=== PATIENT | male | born 1980 | race American Indian/Alaskan Native ===

== ENCOUNTER 2020-07-17 09:08 | Outpatient (CLI) | payer MEDICAID, SELFPAY ==
--- NOTE | 2020-07-17 09:00 | RT.EKG_ITS ---
APPROVED REPORT Exam: Resting ECG Patient Location: O HR:65 bpm ECG Measurements Heart Rate 65 AXIS ND 128 P 38 QRSd 91 QRS 72 QT 404 T 64 QTc 421 Conclusion Sinus rhythm...normal P axis, V-rate 60- 99 Normal Electrocardiogram
== END 2020-07-17 09:28 ==
PROVIDERS: PCP Nurse Practitioner Adult Health; Visit Provider Family Medicine
DX: Z79.899 Other long term (current) drug therapy (principal); Z13.6 Encounter for screening for cardiovascular disorders
CPT/HCPCS: 93005; 93010

== ENCOUNTER 2020-09-28 09:26 | Emergency (ER) | payer MEDICAID, SELFPAY ==
[2020-09-28 09:29] VITALS: BP 162/87; PULSE 83; RESP 18; TEMP 36.6; O2SAT 96
--- NOTE | 2020-09-28 09:37 | ED.GENADUL_ITS ---
Discharge Plan Disposition Patient Disposition: HOME Condition: Stable Discharge Details Clinical Impression: Sinusitis Primary Care Provider: Josselyn Coronel ED Provider: Jennifer Carey Home Meds and New Rx's Prescriptions: New amoxicillin-pot clavulanate [Augmentin] 875-125 mg tablet 1 tab PO BID 7 Days Qty: 14 RF: 0 Continued methadone 40 mg Tablet,Soluble 165 mg PO DAILY RF: 0 Discharge Instructions Instructions: Amoxicillin/Clavulanate Potassium (By mouth), Sinusitis (ED) Additional Instructions: Encourage water intake. Tylenol and/or ibuprofen as needed for discomfort. Antihistamines such as Benadryl or Claritin may help with symptomatic management. For the acute discomfort, please take the Augmentin as prescribed. Even if symptoms improve, please take the entire course. You were given your first dose here today I will not needed dosing until this evening. A referral has been sent for ENT. Care management will reach out to help arrange for follow-up. If you develop fever/chills, severe headache, or other new/worsening symptom please seek care urgently once again. Please [facility] in the next 1 to 2 weeks for reevaluation. Referrals: Jossleyn Coronel [Primary Care Provider] - Roney Ordoñez MD [ [facility] STAFF PHYSICIAN] - Discharge Data Discharge Date/Time-TO BE ENTERED AT DEPARTURE: 09/28/20 10:11 Medical Decision Making Patient is a pleasant 40-year-old male presented with chief complaint of sinusitis. He reports he is having an issue with his sinuses for the past year. However, he reports that this has greatly increased over the last week. He denies any fevers or chills. States that recently he began blowing out a large amount of mucus. States that he has chronic bilateral maxillary sinus discomfort as well as postnasal drip symptoms. Does not appear to have any difficulty breathing. Patient states that he is been trying Flonase as prescribed by his primary care but that this typically makes the symptoms worse. Patient states that he typically resides in [place] but comes here for treatment at the [facility] (formerly [facility]). Reports that he is been seen multiple times by his primary care, urgent care in emergency department. He has not been evaluated by ENT. On exam, patient appears very anxious but nontoxic. He endorses bilateral maxillary sinus discomfort. No pain with percussion elsewhere. Normal nasal exam. He does have cobblestoning of the posterior oropharynx consistent with his history of postnasal drip. No lymphadenopathy. Patient does have poor dentition but did not see any evidence to suggest an acute dental infection despite the pain with chewing. He feels that the sinus pressure has been causing dental pain. Patient and I discussed treatment options. Primarily, as he has been trying pjxi-[id number] regimens without any success, I do feel that follow-up with ENT would be appropriate. She and I discussed risk/benefits of antibiotics. Advised that his chronic sinusitis is likely not associated with bacterial infection. We discussed this is likely allergy driven and I did encourage antihistamine. However, with the recent flare and increase discharge, we did discuss antibiotics. Patient would like to refer to the antibiotic regimen based on his comfort. He does have an allergy listed to penicillin but states that this is false and that he is never had a reaction to penicillin. We will give him a dose of Augmentin here to ensure no immediate anaphylactic reaction. Referral for ENT has been sent. Return precautions were discussed. All questions and concerns were addressed and he is in agreement this plan. HPI General Mode of arrival: ambulatory . Date/Time Provider Initiated Documentation: 09/28/20 09:37 . Limitations to Documentation: no limitations . Information obtained by: patient and RN notes reviewed . History of Present Illness 40 year old M presents to the emergency department with the chief complaint of sinus pain, nasal discharge, described as moderate, with intensity rated at 7. Quality is described as burning, and is localized to the face. Patient reports no radiation. Patient started experiencing this year(s) (x1 with recent exacerbation) and it has been constant. No relieving factors improve symptom(s), No exacerbating factors reported . Patient notes no other symptoms.; denies cough, diaphoresis, fever/chills, headaches, rash and shortness of breath. Patient did receive the following treatments prior to arrival, other (nasal spray) Related Data Home Medications Medication Instructions Recorded Confirmed amoxicillin-pot clavulanate 1 tab PO BID 7 Days #14 tab 09/28/20 [Augmentin] methadone 165 mg PO DAILY 09/28/20 09/28/20 Previous Rx's Medication Instructions Recorded amoxicillin-pot clavulanate 1 tab PO BID 7 Days #14 tab 09/28/20 [Augmentin] Allergies Allergy/AdvReac Type Severity Reaction Status Date / Time Penicillins Allergy Unverified 09/28/20 09:34 General Stated Complaint: RespSymp JOJO: 4 Review of Systems Constitutional Constitutional: Reports as per HPI and Denies headache(s) Eyes Eyes: Reports as per HPI, Denies eye discharge and Denies irritation ENT Ears, Nose, Mouth, and Throat: Reports as per HPI and Denies headache(s) Cardiovascular Cardiovascular: Reports as per HPI, Denies chest pain and Denies dyspnea Respiratory Respiratory: Reports as per HPI and Denies dyspnea Gastrointestinal Gastrointestinal: Reports as per HPI, Denies abdominal pain, Denies change in bowel habits, Denies nausea and Denies vomiting Integumentary/Breasts Skin/Breast: Reports as per HPI and Denies rash Neurologic Neurologic: Reports as per HPI and Denies headache(s) [facility] Social History Smoking/Tobacco Use Status: Current every day Tobacco Type: cigarettes Smoking risk assessment performed?: Yes Alcohol Intake: never Drug use: Daily Substance use type: marijuana Details: on methadone Do you feel safe at home: Yes Exam Const General: cooperative, healthy appearing, comfortable, no acute distress, well developed and well groomed Nutritional Appearance: average body habitus and well nourished Orientation: alert and awake [facility] Head: normal to inspection, normocephalic and atraumatic Ears: hearing grossly normal bilaterally, external ears normal and TM's normal bilaterally General nose exam: external nose normal and nares normal Face and sinus: normal facial exam, face symmetric and sinus tenderness (bila teral) maxillary Mouth: oral mucosae normal, lip normal, tongue normal, oropharynx normal and moist mucous membranes Teeth and gingiva: poor dentition (no evidence of acute infection) Throat: posterior oropharynx normal, tonsils normal and uvula midline Eyes General: appearance normal, both eyes and all related structures Neck Neck: normal visual inspection, full ROM, no lymphadenopathy and no meningeal signs Resp Effort & Inspection: normal respiratory effort, able to speak in complete sentences and no respiratory distress Auscultation: clear to auscultation bilaterally, no rales, no rhonchi and no wheezes Cardio Rate: regular rate Rhythm: regular rhythm Heart Sounds: S1 normal and S2 normal Skin General skin exam: no rashes or lesions noted Neuro General: patient alert and patient awake Cognition: normal cognition Speech: speech normal Gait: normal gait Psych Appearance: grossly normal and well kempt Mental Status: mental status grossly normal Speech and Movement: speech and movement normal Course Vital Signs Vital signs: Vital Signs Temperature 36.6 C 09/28/20 09:29 Pulse 83 09/28/20 09:29 Respiratory Rate 18 09/28/20 09:29 Blood Pressure 162/87 H 09/28/20 09:29 Pulse Oximetry 96 09/28/20 09:29 Temperature 36.6 C 09/28/20 09:29 Temperature Source Skin 09/28/20 09:29 Pulse 83 09/28/20 09:29 Respiratory Rate 18 09/28/20 09:29 Respiratory Effort Non-Labored 09/28/20 09:32 Blood Pressure 162/87 H 09/28/20 09:29 Pulse Oximetry 96 09/28/20 09:29 Oxygen Delivery Method Room Air 09/28/20 09:29 Oxygen Flow Rate 0 09/28/20 09:29 Pain Level 7 09/28/20 09:29
[2020-09-28] MEDS: Amoxicillin 875/Clav. 125 TAB PO (09:52)
--- NOTE | 2020-09-30 08:22 | NUR.NOTE ---
Nursing Note: Referral faxed to [facility]NT[facility] for follow up DIYA for chronic sinusitis. Brittani Beltran
== END 2020-09-28 10:11 | disposition home or self-care (01) ==
PROVIDERS: Emergency Provider Physician Assistant; PCP Nurse Practitioner Adult Health
DX: J01.01 Acute recurrent maxillary sinusitis (principal)
CPT/HCPCS: 99283

== ENCOUNTER 2023-01-22 19:12 | Emergency (ER) | payer MEDICAID, SELFPAY ==
--- NOTE | 2023-01-22 19:15 | RT.EKG_ITS ---
APPROVED REPORT Exam: Resting ECG Reason for Exam: chest pain Patient Location: E HR:90 bpm ECG Measurements Heart Rate 90 AXIS NC 115 P 21 QRSd 86 QRS 70 QT 379 T 60 QTc 464 Conclusion Sinus rhythm...normal P axis, V-rate 60- 99 sinus rhythm, normal axis, normal intervals, non ischemic
[2023-01-22 19:16] VITALS: BP 132/64; PULSE 98; RESP 16; TEMP 37.3; O2SAT 99
--- NOTE | 2023-01-22 21:00 | DI.CT_ITS ---
Exam(s) CT HEAD SINUS WO EXAM: CT HEAD SINUS WO CLINICAL HISTORY: Chronic sinusitis, increasing pain. TECHNIQUE: Imaging Protocol: Axial computed tomography images with coronal and sagittal reformatted images were created and reviewed COMPARISON: No exams were available for comparison FINDINGS: CT Head: Ventricles and Extra axial spaces: Normal in size and morphology for the patient's age. Hemorrhage: None. Cerebral parenchyma: Normal. Midline shift: None. Brainstem/Cerebellum: Normal. Calvarium: Normal. Visualized Paranasal sinuses/Mastoids: Clear. Soft Tissues: Unremarkable. CT Face: Facial Bones: No fracture is noted in facial bones. Sinuses and Mastoids: Unremarkable. Globes, extraocular muscles, optic nerves and retrobulbar fat: Normal. Upper aerodigestive tract: Normal. bilateral temporomandibular joints: Normal. Soft tissues: Normal. Dental: Multiple dental caries noted. Right upper medial incisor absent. 10 millimeter area of bony destruction in the adjacent maxilla multiple tooth extractions noted in the maxilla and mandible. IMPRESSION: 1. No acute intracranial process. 2. No evidence of sinusitis. 3. Severe dental disease with a large erosion in the right maxilla. RADIATION DOSE DELIVERED: 872.85mGy.cm Total DLP DATA REPOSITORY: All CT scans at this facility are submitted to the National Radiology Data Registry (NRDR) Dose Index Registry (DIR) with the [employer] (A[employer]). RADIATION OPTIMIZATION: All CT scans at this facility use at least one of these dose optimization te chniques: automated exposure control; mA and/or kV adjustment per patient size (includes targeted exa ms where dose is matched to clinical indication); or iterative reconstruction.
--- NOTE | 2023-01-22 21:02 | ED.GENADUL_ITS ---
Discharge Plan Disposition Patient Disposition: Home Condition: Stable Discharge Details Clinical Impression: Sinus pressure Primary Care Provider: Milo Baer ED Provider: Tati Brownlee Home Meds and New Rx's Prescriptions: No Action fluticasone propionate 50 mcg/actuation spray,suspension 2 spray intranasal BID Rx Instructions: administer into each nostril aripiprazole 20 mg tablet 20 mg PO DIRECTED fish [id number]-1-vit C-vit E PO gabapentin 300 mg capsule 300 mg PO TID montelukast 10 mg tablet 10 mg PO DAILY multivitamin [Daily Multi-Vitamin] Tablet 1 tab PO DAILY sildenafil 100 mg tablet 100 mg PO DIRECTED PRN testosterone cypionate [Testone CIK] IM Q4W cholecalciferol (vitamin D3) PO Vyvanse 60 mg capsule 60 mg PO DIRECTED methadone 40 mg Tablet,Soluble 165 mg PO DAILY Discharge Instructions Instructions: Acute Headache (ED) Additional Instructions: Continue with the penicillin as previously prescribed. The CT shows no evidence of fluid or inflammation or infection in your sinuses. I do suspect this pressure is related to the recent dental extractions. Please take Tylenol or Ibuprofen with food every 4-6 hours as needed for pain and swelling. Please follow-up with the dentist to do the extractions within the next week. Follow up with primary care provider in 3-5 days. Return to ED sooner if any worsening fever, drainage or concerns. Increase oral fluids. Referrals: Milo Baer [Primary Care Provider] - 5 days Discharge Data Discharge Date/Time-TO BE ENTERED AT DEPARTURE: 01/22/23 21:55 Medical Decision Making 42-year-old male presents to the ER with chief complaint of facial pressure and worsening pain for the last 3 days. He recently had 4 or 5 teeth pulled on his upper left. He reports that before that he was taking Augmentin and now he is currently on penicillin. He does take methadone. He does have a history of ADHD, hep A, bipolar asthma, PTSD he does smoke cigarettes daily. CT head and sinuses ordered. Doxycycline p.o. ordered. CT shows no evidence for abscess or fluid levels in the sinuses. He does have erosion from the previous dental obstruction through the maxillary bone. Will instruct on Tylenol ibuprofen. We was given doxycycline however it appears that the sinusitis is resolved. I will have him continue on with the penicillin. This text was generated using Nuance dictation system, please disregard any oddities of phrase or misspellings. Imaging Data Radiologic Study: Imaging: CT Scan Radiologist's impression: FINDINGS: Brain: Cerebrum is unremarkable. Mendoza-white matter differentiation is intact. No mass lesion is seen. No mass effect or midline shift. Thalamus is unremarkable. No evidence of hemorrhage. Cerebellum is unremarkable. No posterior fossa mass lesion or mass effect. No pathologic edema. No evidence of cerebellar hemorrhage. Cerebral ventricles: No ventriculomegaly. Paranasal sinuses: Visualized sinuses are unremarkable. No fluid levels. Mastoid air cells: Visualized mastoid air cells are well aerated. Bones/joints: Unremarkable. No acute fracture. Soft tissues: Unremarkable. IMPRESSION: No evidence of pathology. Age: 42 years old Clinical indication: Other: Chronic sinusitis, increasing pain TECHNIQUE: Imaging p rotocol: CT Maxillofacial without contrast. Focus on the sinuses. COMPARISON: No relevant prior studies available. FINDINGS: Frontal sinuses: Normal. No air-fluid levels. Ethmoid sinuses: Normal. No air-fluid levels. Sphenoid sinuses: Normal. No air-fluid levels. Maxillary sinuses: No fluid level in the sinuses. No findings to suggest acute sinusitis. Nasal cavity: Unremarkable. Orbital cavities: See Maxillary sinuses finding. Bones/joints: Unremarkable. Soft tissues: See Dental finding. Dental: 10 x 12 mm lucency is seen in between right upper canine and medial incisor roots with erosion through posterior cortex of the maxillary bone measuring 6 mm. No adjacent periosteal abscess collection seen. IMPRESSION: 1. 10 x 12 mm lucency is seen in between right upper canine and medial incisor roots with erosion through posterior cortex of the maxillary bone measuring 6 mm. No adjacent periosteal abscess collection seen. Finding is consistent with sequela of periodontitis. 2. No findings to suggest acute sinusitis. Thank you for allowing us to participate in the care of your patient. Dictated and Authenticated by: Jordana Haque MD 01/22/2023 9:40 PM Eastern Time ([place] & [place]) HPI General Mode of arrival: ambulatory . Date/Time Provider Initiated Documentation: 01/22/23 19:32 . Limitations to Documentation: no limitations . Information obtained by: patient, RN notes reviewed and old records reviewed . HPI Narrative: 42-year-old male presents to the ER with chief complaint of facial pressure and worsening pain for the last 3 days. He recently had 4 or 5 teeth pulled on his upper left. He reports that before that he was taking Augmentin and now he is currently on penicillin. He does take methadone. He does have a history of ADHD, hep A, bipolar asthma, PTSD he does smoke cigarettes daily. Related Data Home Medications Medication Instructions Recorded Confirmed methadone 40 mg soluble tablet 165 mg PO DAILY 09/28/20 11/02/22 aripiprazole 20 mg tablet 20 mg PO DIRECTED 10/06/22 fish jnn-[id number]-0-vit C-vit E PO 10/06/22 11/02/22 fluticasone propionate 50 2 spray intranasal BID 10/06/22 11/02/22 mcg/actuation nasal spray,suspension gabapentin 300 mg capsule 300 mg PO TID 10/06/22 11/02/22 montelukast 10 mg tablet 10 mg PO DAILY 10/06/22 11/02/22 multivitamin (Daily Multi-Vitamin 1 tab PO DAILY 10/06/22 11/02/22 tablet) cholecalciferol (vitamin D3) PO 10/07/22 11/02/22 lisdexamfetamine 60 mg capsule 60 mg PO DIRECTED 10/07/22 (Vyvanse) sildenafil 100 mg tablet 100 mg PO DIRECTED PRN 10/07/22 11/02/22 testosterone cypionate [Testone IM Q4W 10/07/22 11/02/22 CIK] Allergies Allergy/AdvReac Type Severity Reaction Status Date / Time No Known Allergies Allergy Verified 11/02/22 13:49 General Stated Complaint: FacialProb JOJO: 3 Review of Systems All systems reviewed & are unremarkable except as noted in HPI and below Constitutional Constitutional: Reports headache(s) ENT Ears, Nose, Mouth, and Throat: Reports as per HPI, Reports facial pain and Reports headache(s) Neurologic Neurologic: Reports headache(s) PFSH All Active Problems (Updated 01/22/23 @ 21:50 by Tati Brownlee NP) Sinus pressure (Acute) Nasal congestion (Acute) Sinusitis (Acute) Medical History Acute type A viral hepatitis ADHD (attention deficit hyperactivity disorder) Anxiety Arthritis Bipolar disorder Erectile dysfunction History of asthma History of head injury Neuropathy PTSD (post-traumatic stress disorder) Spinal cord compression Social History Smoking/Tobacco Use Status: Current every day Tobacco Type: cigarettes Smoking risk assessment performed?: Yes Alcohol Intake: former Drug use: Daily Substance use type: marijuana, heroin and methamphetamine Details: on methadone, previously used meth Do you feel safe at home: Yes Do you feel safe in your relationship?: Yes Exam Narrative Exam Narrative: Constitutional: Alert and oriented x3. Appears stated age. Normal body habitus. Head: Normocephalic, no trauma. Eyes: Pupils PERRL, Red reflex noted, EOM's intact. Eyelids symmetrical without lesions, discharge, or swelling. ENT: Bilateral TM's WNL, External ear normal to inspection, no mastoid TTP, swelling, or erythema, Nasal turbinates boggy bilaterally, no nasal discharge. Multiple recent dental pulled, right anterior incisor, there is a gaping hole, surrounding erythema to the gumline no drainage or area of fluctuance no area of drainable abscess visualized. Posterior pharynx WNL, no exudate. Bilateral maxillary tenderness with palpation. Chest: RRR, Normal S1, S2, distal pulses intact. Resp: Lungs clear to auscultation bilaterally, no wheezes, rales, or rhonchi. Abdomen: Soft, non-distended, Normoactive bowel sounds all 4 quads. Musculoskeletal: Normal gait, 5/5 strength to all four extremities. Skin: No suspicious rashes or lesions. Capillary refill less than 2 sec. Neurologic: Cranial nerves II-XII intact. Alert and oriented x 3. Motor: No deficits noted. Sensory: Intact bilaterally all 4 extremities. Reflexes: DTR's intact bilaterally.. Hematologic/Lymphatic: No ecchymosis, no lymphadenopathy. Course Vital Signs Vital signs: Vital Signs Temperature 37.3 C 01/22/23 19:16 Pulse 98 H 01/22/23 19:16 Respiratory Rate 16 01/22/23 19:16 Blood Pressure 132/64 01/22/23 19:16 Pulse Oximetry 99 01/22/23 19:16 Temperature 37.3 C 01/22/23 19:16 Temperature Source Oral 01/22/23 19:16 Pulse 98 H 01/22/23 19:16 Respiratory Rate 16 01/22/23 19:16 Respiratory Effort Normal, Non-Labored 01/22/23 19:20 Blood Pressure 132/64 01/22/23 19:16 Blood Pressure Position Sitting 01/22/23 19:16 Pulse Oximetry 99 01/22/23 19:16 Oxygen Delivery Method Room Air 01/22/23 19:16 Oxygen Flow Rate 0 01/22/23 19:16 Pain Level 7 01/22/23 19:16
[2023-01-22] MEDS: Doxycycline Hyclate 100 MG CAP PO (21:19)
--- NOTE | 2023-01-22 21:41 | DI.VRAD_ITS ---
PROCEDURE INFORMATION: Exam: CT Head Without Contrast Exam date and time: 01/22/2023 9:24 PM Age: 42 years old Clinical indication: Other: Chronic sinusitis, increasing pain TECHNIQUE: Imaging protocol: Computed tomography of the head without contrast. COMPARISON: No relevant prior studies available. FINDINGS: Brain: Cerebrum is unremarkable. Mendoza-white matter differentiation is intact. No mass lesion is seen. No mass effect or midline shift. Thalamus is unremarkable. No evidence of hemorrhage. Cerebellum is unremarkable. No posterior fossa mass lesion or mass effect. No pathologic edema. No evidence of cerebellar hemorrhage. Cerebral ventricles: No ventriculomegaly. Paranasal sinuses: Visualized sinuses are unremarkable. No fluid levels. Mastoid air cells: Visualized mastoid air cells are well aerated. Bones/joints: Unremarkable. No acute fracture. Soft tissues: Unremarkable. IMPRESSION: No evidence of pathology. PROCEDURE INFORMATION: Exam: CT Maxillofacial Without Contrast, Sinus Exam date and time: 01/22/2023 9:24 PM Age: 42 years old Clinical indication: Other: Chronic sinusitis, increasing pain TECHNIQUE: Imaging protocol: CT Maxillofacial without contrast. Focus on the sinuses. COMPARISON: No relevant prior studies available. FINDINGS: Frontal sinuses: Normal. No air-fluid levels. Ethmoid sinuses: Normal. No air-fluid levels. Sphenoid sinuses: Normal. No air-fluid levels. Maxillary sinuses: No fluid level in the sinuses. No findings to suggest acute sinusitis. Nasal cavity: Unremarkable. Orbital cavities: See Maxillary sinuses finding. Bones/joints: Unremarkable. Soft tissues: See Dental finding. Dental: 10 x 12 mm lucency is seen in between right upper canine and medial incisor roots with erosion through posterior cortex of the maxillary bone measuring 6 mm. No adjacent periosteal abscess collection seen. IMPRESSION: 1. 10 x 12 mm lucency is seen in between right upper canine and medial incisor roots with erosion through posterior cortex of the maxillary bone measuring 6 mm. No adjacent periosteal abscess collection seen. Finding is consistent with sequela of periodontitis. 2. No findings to suggest acute sinusitis. Dictated and Authenticated by: Jordana Haque MD. Ordering:JUAN FRANCISCO Duffy MD
[2023-01-22 21:50] VITALS: BP 123/67; PULSE 93; RESP 16; TEMP 37.3; O2SAT 96
== END 2023-01-22 21:55 | disposition home or self-care (01) ==
PROVIDERS: Emergency Provider Registered Nurse Emergency; PCP Family Medicine
DX: R09.81 Nasal congestion (principal); G50.1 Atypical facial pain
CPT/HCPCS: 93005; 99284; 70450; 70486; 93010

== ENCOUNTER 2023-01-28 14:30 | Emergency (ER) | payer MEDICAID, SELFPAY ==
[2023-01-28 14:44] VITALS: BP 127/83; PULSE 110; RESP 22; TEMP 36.6; O2SAT 98
--- NOTE | 2023-01-28 14:45 | RT.EKG_ITS ---
APPROVED REPORT Exam: Resting ECG Reason for Exam: chest pain Patient Location: E HR:99 bpm ECG Measurements Heart Rate 99 AXIS TX 126 P 59 QRSd 89 QRS 73 QT 350 T 60 QTc 450 Conclusion Sinus rhythm...normal P axis, V-rate 60- 99
--- NOTE | 2023-01-28 15:50 | ED.GENADUL_ITS ---
Discharge Plan Disposition Patient Disposition: Home Discharge Details Clinical Impression: Nasal congestion, Sinus pressure, Poor dentition Primary Care Provider: Milo Baer ED Provider: Danny Son Home Meds and New Rx's Prescriptions: New clindamycin HCl 300 mg capsule 300 mg PO Q6H Qty: 42 0RF No Action fluticasone propionate 50 mcg/actuation spray,suspension 2 spray intranasal BID Rx Instructions: administer into each nostril aripiprazole 20 mg tablet 20 mg PO DIRECTED fish tin-wvehs-3-vit C-vit E 1 cap PO DAILY gabapentin 300 mg capsule 300 mg PO TID montelukast 10 mg tablet 10 mg PO DAILY Patient Comments: not taking multivitamin [Daily Multi-Vitamin] Tablet 1 tab PO DAILY sildenafil 100 mg tablet 100 mg PO DIRECTED PRN Patient Comments: not taking testosterone cypionate [Testone CIK] 100 mg IM Q4W cholecalciferol (vitamin D3) 2 cap PO DAILY Vyvanse 60 mg capsule 60 mg PO DIRECTED Patient Comments: not taking methadone 40 mg Tablet,Soluble 100 mg PO DAILY Discharge Data Discharge Date/Time-TO BE ENTERED AT DEPARTURE: 01/28/23 17:20 HPI General Date/Time Provider Initiated Documentation: 01/28/23 15:39 . HPI Narrative: 42 year old male presents with multiple c/o. He says that he was seen last week, treated for a sinus infection, but says it is worse, feels like he has pus running out of his nose. He has hx of poor dentition, has been treated for dental infection recently, as well. He has seen ENT in the past, missed most recent appt. No known fevers. He also stating that feels like his sinuses are draining into his chest and cough some, as well. He had CT sinus last week, no sinusitis noted. Pt requesting another CT of his sinuses. Related Data Home Medications Medication Instructions Recorded Confirmed methadone 40 mg soluble tablet 100 mg PO DAILY 09/28/20 01/28/23 aripiprazole 20 mg tablet 20 mg PO DIRECTED 10/06/22 01/28/23 fish eko-eiqks-5-vit C-vit E 1 cap PO DAILY 10/06/22 01/28/23 fluticasone propionate 50 2 spray intranasal BID 10/06/22 01/28/23 mcg/actuation nasal spray,suspension gabapentin 300 mg capsule 300 mg PO TID 10/06/22 01/28/23 montelukast 10 mg tablet 10 mg PO DAILY 10/06/22 11/02/22 multivitamin (Daily Multi-Vitamin 1 tab PO DAILY 10/06/22 01/28/23 tablet) cholecalciferol (vitamin D3) 2 cap PO DAILY 10/07/22 11/02/22 lisdexamfetamine 60 mg capsule 60 mg PO DIRECTED 10/07/22 (Vyvanse) sildenafil 100 mg tablet 100 mg PO DIRECTED PRN 10/07/22 11/02/22 testosterone cypionate [Testone 100 mg IM Q4W 10/07/22 11/02/22 CIK] clindamycin HCl 300 mg capsule 300 mg PO Q6H #42 caps 01/28/23 Previous Rx's Medication Instructions Recorded clindamycin HCl 300 mg capsule 300 mg PO Q6H #42 caps 01/28/23 Allergies Allergy/AdvReac Type Severity Reaction Status Date / Time No Known Allergies Allergy Verified 01/28/23 14:51 General Stated Complaint: Chest Pain JOJO: 3 Review of Systems Narrative: CONST: no fever or chills HEENT: no sore throat. +sinus drainage and congestion. PULM: no sob, no cough CARD: no cp, no palpitations EXTR: no swelling NEURO: No focal weakness PFSH All Active Problems (Updated 01/28/23 @ 17:12 by Danny Son MD) Sinus pressure (Acute) Poor dentition (Acute) Nasal congestion (Acute) Sinusitis (Acute) Medical History Acute type A viral hepatitis ADHD (attention deficit hyperactivity disorder) Anxiety Arthritis Bipolar disorder Erectile dysfunction History of asthma History of head injury Neuropathy PTSD (post-traumatic stress disorder) Spinal cord compression Social History Smoking/Tobacco Use Status: Current every day Tobacco Type: cigarettes Smoking risk assessment performed?: Yes Alcohol Intake: former Drug use: Daily Substance use type: marijuana, crack/cocaine, heroin and methamphetamine Details: on methadone, previously used meth and heroin Housing: house Do you feel safe at home: Yes Do you feel safe in your relationship?: Yes Exam Narrative Exam Narrative: Const: well appearing, no acute distress HEENT: normocephalic, atraumatic; MMM Lungs: CTA, no wheezing or rales Heart: RRR Abd: soft, NT/ND Ext: well perfused Neuro: non-focal Skin: no rashes Course 42 yo with chronic sinus issues, labs normal, and ekg and cxr ok today (with c/o cp from his sinus'). I do not think he has sinusitis, but may have some issues with teeth given that one of his teeth are seen to have eroded into his sinus. Will start clinda, f/u with ENT, dentist. Vital Signs Vital signs: Vital Signs Temperature 36.6 C 01/28/23 14:44 Pulse 110 H 01/28/23 14:44 Respiratory Rate 22 01/28/23 14:44 Blood Pressure 127/83 01/28/23 14:44 Pulse Oximetry 98 01/28/23 14:44 Temperature 36.6 C 01/28/23 14:44 Pulse 110 H 01/28/23 14:44 Respiratory Rate 22 01/28/23 14:44 Respiratory Effort Normal, Non-Labored 01/28/23 14:48 Blood Pressure 127/83 01/28/23 14:44 Pulse Oximetry 98 01/28/23 14:44 Oxygen Delivery Method Room Air 01/28/23 14:44 Oxygen Flow Rate 0 01/28/23 14:44
[2023-01-28] MEDS: CLINDAMYCIN 900 MG/50 ML BAG 50 MG IVPB (15:52)
[2023-01-28 15:53] VITALS: RESP 18
--- NOTE | 2023-01-28 16:00 | DI.RAD_ITS ---
Exam(s) XR CHEST 2V PA LATERAL EXAM: XR CHEST 2V PA LATERAL CLINICAL HISTORY: cp. TECHNIQUE: 2D digital imaging was performed. COMPARISON: No exams were available for comparison FINDINGS: 2 views: Heart size is normal. The mediastinum is not widened. Lungs are clear. No infiltrates nor pleural effusions. IMPRESSION: No acute pulmonary findings. DATA REPOSITORY: RADIATION DOSE DELIVERED:
[2023-01-28 16:04] LABS: Abs Immature Grans 0.03 10^3/uL (0.0-0.06); Absolute Basophil Count 0.04 10^3/uL (0.0-0.2); Absolute Eosinophil Count 0.13 10^3/uL (0.0-0.7); Absolute Lymphocyte Count 1.04 10^3/uL (1.2-3.4); Absolute Monocyte Count 0.36 10^3/uL (0.1-0.8); Absolute Neutrophil Count 7.06 10^3/uL (1.2-6.7); Basophils % 0.5; Eosinophils % 1.5; HCT 35.8 % (40.0-50.0); Immature Grans % 0.3; MCH 29.6 pg (27.0-33.0); MCHC 33.5 % (32.0-36.0); MCV 88 fL (80-95); MPV 8.6 fL (8.0-11.0); Monocytes % 4.2; Neutrophils % 81.5; Platelet Count 349 10^3/uL (130-400); RBC 4.06 10^6/uL (4.36-5.78); RDW 13.5 % (11.8-14.1); RDW-SD 43.9 fL; WBC 8.66 10^3/uL (4.4-10.8)
[2023-01-28 16:15] LABS: Anion Gap 8.2 mmol/L (3-11); BUN 16 mg/dL (7-18); CO2 30.8 mmol/L (21.0-32.0); CREATININE 1.1 mg/dL (0.70-1.30); Calcium 9.1 mg/dL (8.5-10.1); Chloride 100 mmol/L (98-107); Estimated GFR 85.95 (mL/min/1.73m2); Glucose 82 mg/dL (74-106); Potassium 3.3 mmol/L (3.5-5.1); Sodium 139 mmol/L (136-145)
[2023-01-28 16:24] LABS: Troponin I < 50 ng/L (<or=60)
[2023-01-28 17:15] VITALS: BP 126/89; PULSE 90; RESP 18; TEMP 36.5; O2SAT 95
== END 2023-01-28 17:20 | disposition home or self-care (01) ==
PROVIDERS: Emergency Provider Emergency Medicine; PCP Family Medicine
DX: R07.9 Chest pain, unspecified (principal); R09.81 Nasal congestion; J32.8 Other chronic sinusitis; F17.210 Nicotine dependence, cigarettes, uncomplicated
CPT/HCPCS: 36415; 80048; 93005; 96365; 99283; 71046; 84484; 85025; 93010

== ENCOUNTER 2023-02-27 14:07 | Emergency (ER) | payer MEDICAID, SELFPAY ==
[2023-02-27 14:09] VITALS: BP 108/78; PULSE 104; RESP 18; TEMP 37.1; O2SAT 97
--- NOTE | 2023-02-27 14:15 | RT.EKG_ITS ---
APPROVED REPORT Exam: Resting ECG Reason for Exam: chest pain Patient Location: E HR:94 bpm ECG Measurements Heart Rate 94 AXIS ME 124 P 21 QRSd 96 QRS 68 QT 386 T 50 QTc 483 Conclusion Sinus rhythm...normal P axis, V-rate 60- 99
[2023-02-27] MEDS: Ketorolac 15 MG/ML VIAL IVP (16:18)
[2023-02-27] MEDS: Normal Saline 1,000 ML 1000 ML IV (16:19)
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
== END 2023-02-27 18:15 | disposition home or self-care (01) ==
PROVIDERS: Emergency Provider Emergency Medicine; PCP Family Medicine
DX: K08.89 Other specified disorders of teeth and supporting structures (principal)
CPT/HCPCS: 93005; 96361; 96374; 99284; 93010; J1885

== ENCOUNTER 2023-04-14 00:26 | Emergency (ER) | payer MEDICAID, SELFPAY ==
[2023-04-14 00:31] VITALS: BP 154/88; PULSE 100; RESP 18; TEMP 37; O2SAT 100
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
[2023-04-14 00:44] VITALS: RESP 18
== END 2023-04-14 01:08 | disposition home or self-care (01) ==
PROVIDERS: Emergency Provider Student in an Organized Health Care Education/Training Program; PCP Family Medicine
DX: F42.4 Excoriation (skin-picking) disorder (principal); F19.10 Other psychoactive substance abuse, uncomplicated; F17.210 Nicotine dependence, cigarettes, uncomplicated
CPT/HCPCS: 99283

== ENCOUNTER 2023-04-18 03:23 | Emergency (ER) | payer MEDICAID, SELFPAY ==
[2023-04-18 03:29] VITALS: BP 172/82; PULSE 78; RESP 16; TEMP 36.5; O2SAT 94
[2023-04-18 03:43] VITALS: RESP 20
--- NOTE | 2023-04-18 03:46 | ED.GENADUL_ITS ---
Discharge Plan Discharge Details Chief Complaint: GenMedical Primary Care Provider: Milo Baer ED Provider: Belen Borrego Home Meds and New Rx's Prescriptions: No Action gabapentin 300 mg capsule 300 mg PO TID montelukast 10 mg tablet 10 mg PO DAILY Patient Comments: not taking multivitamin [Daily Multi-Vitamin] Tablet 1 tab PO DAILY albendazole 200 mg tablet 400 mg PO BID 10 Days Qty: 40 0RF Rx Instructions: must administer with food, preferably a high-fat meal Medical Decision Making The patient got upset as I was asking him questions. Patient with irritation in his left nares that I suggested was perhaps from him snorting. ENT had evidently told him the same thing. He palpated his scalp where he told me there was a parasite and felt no abnormality there. He ended up stating that we were not can I do anything for him and walked out of the ED. I suspect this is a delusion that he has based on his drug abuse. Medical Records Medical records reviewed: Yes I reviewed the patient's medical records. Lab Data Lab results reviewed: Yes I reviewed the patient's lab results. HPI General Date/Time Provider Initiated Documentation: 04/18/23 03:29 . HPI Narrative: This 42-year-old male patient presents with a chief complaint of being infested by parasites. Patient was seen here on the of last month for similar complaints. He insisted upon being given medication for parasites. Dr. Hayden ended up giving him a prescription for albendazole for 10 days. Patient states that he had it filled 2 days ago but its not helping. Patient has a long history of IVDA including meth, fentanyl, and cocaine. He states that the last time he used meth was 9 months ago but he has got a lot of sores on his hands that may be from shooting meth or cocaine. States that for the past 6 to 12 months he has felt like he has had parasites. He says at times they are coming out of his skin. He rubbed his hands all over his scalp and then pointed to an area where there was a parasite. There were no serpiginous tracts or palpable abnormalities in the area he pointed to. He has no history of travel or working with animals. Apparently he has been seen at multiple other facilities for complaints similar to this. He is seeing ENT for left nares trauma that they thought was related to him exclusively using this side for snorting, which he denies to me. He also told them that they had to do something because he was shitting out polyps and grapelike stuff. Reportedly he has been on methadone in the past. He does seem quite paranoid and I wonder if this parasite infestation belief is delusional and related to his drug abuse. He said tonight that he is not doing drugs any longer but he seems quite agitated and again somewhat delusional. Patient reportedly has a history of PTSD, TBI, bipolar disorder, anxiety, and ADHD. Related Data Home Medications Medication Instructions Recorded Confirmed gabapentin 300 mg capsule 300 mg PO TID 10/06/22 04/18/23 montelukast 10 mg tablet 10 mg PO DAILY 10/06/22 04/18/23 multivitamin (Daily Multi-Vitamin 1 tab PO DAILY 10/06/22 04/18/23 tablet) albendazole 200 mg tablet 400 mg PO BID 10 days #40 tabs 04/14/23 04/18/23 Previous Rx's Medication Instructions Recorded albendazole 200 mg tablet 400 mg PO BID 10 days #40 tabs 04/14/23 Allergies Allergy/AdvReac Type Severity Reaction Status Date / Time No Known Allergies Allergy Verified 04/18/23 03:32 General Stated Complaint: GenMedical JOJO: 3 Review of Systems Unobtainable due to mental status Constitutional Constitutional: Reports as per HPI, Denies chills, Denies fever(s) and Denies headache(s) Eyes Eyes: Denies blurry vision and Reports other (no redness) ENT Ears, Nose, Mouth, and Throat: Denies dizziness, Denies otalgia, Denies headache(s), Denies nasal congestion, Denies nasal discharge, Denies neck pain and Denies odynophagia Cardiovascular Cardiovascular: Denies chest pain, Denies palpitations and Denies dyspnea Respiratory Respiratory: Denies cough and Denies dyspnea Gastrointestinal Gastrointestinal: Denies abdominal pain, Denies diarrhea, Denies nausea, Denies odynophagia and Denies vomiting Genitourinary Genitourinary: Denies difficulty urinating and Denies dysuria Musculoskeletal Musculoskeletal: Denies myalgias, Denies muscle weakness, Denies neck pain and Denies numbness Integumentary/Breasts Skin/Breast: Denies erythema and Denies rash Neurologic Neurologic: Denies dizziness, Denies headache(s) and Denies numbness Endocrine Endocrine: Denies palpitations PFSH All Active Problems Encounter for medical assessment (Acute) Chronic rhinitis (Acute) Fistula, silvia-antral (Acute) Dry tooth socket (Acute) Nasal congestion (Acute) Sinusitis (Acute) Medical History Acute type A viral hepatitis ADHD (attention deficit hyperactivity disorder) Anxiety Arthritis Bipolar disorder Erectile dysfunction History of asthma History of head injury Neuropathy PTSD (post-traumatic stress disorder) Spinal cord compression Social History Smoking/Tobacco Use Status: Current every day Tobacco Type: cigarettes Smoking risk assessment performed?: Yes Alcohol Intake: former Drug use: Daily Substance use type: marijuana, crack/cocaine and other Details: fentanyl Housing: house Do you feel safe at home: Yes Do you feel safe in your relationship?: Yes Exam Const General: well developed, No well groomed and other (agitated) Nutritional Appearance: other (unkept) Orientation: alert and awake HENMT Head: normocephalic, atraumatic and other (Extensive tattoos across scalp, no hair) General nose exam: other (Left nares with clear discharge, some mild bleeding/evidence of irritation) Eyes Conjunctivae: conjunctivae normal Neck Neck: full ROM and supple Resp Effort & Inspection: normal respiratory effort GI Inspection: normal to inspection Palpation: soft, nontender and other (non distended) Auscultation: normal bowel sounds Skin General skin exam: other (pink, warm, dry, mult tatoos, diaphoretic) Neuro General: patient alert and patient awake Cognition: abnormal cognition Speech: speech normal Motor: other (MAYER) Sensory Exam: no sensory deficits noted Extrem General: full ROM Right upper extremity: hand (ulcers w/eschar) Left upper extremity: hand (ulcers w/eschar) Psych Speech and Movement: speech and movement normal and agitated Mood: irritable mood Affect: labile affect Attitude: belligerent Thought Content: delusions Course Vital Signs Vital signs: Vital Signs Temperature 36.5 C 04/18/23 03:29 Pulse 78 04/18/23 03:29 Respiratory Rate 16 04/18/23 03:29 Blood Pressure 172/82 H 04/18/23 03:29 Pulse Oximetry 94 04/18/23 03:29 Temperature 36.5 C 04/18/23 03:29 Temperature Source Temporal Artery Scan 04/18/23 03:29 Pulse 78 04/18/23 03:29 Respiratory Rate 16 04/18/23 03:29 Respiratory Effort Normal 04/18/23 03:29 Blood Pressure 172/82 H 04/18/23 03:29 Blood Pressure Position Sitting 04/18/23 03:29 Pulse Oximetry 94 04/18/23 03:29 Oxygen Delivery Method Room Air 04/18/23 03:29 Oxygen Flow Rate 0 04/18/23 03:29
== END 2023-04-18 08:45 | disposition home or self-care (01) ==
LOC: ER 03:36 → RED 04:46
PROVIDERS: Emergency Provider Emergency Medicine; PCP Family Medicine
DX: Z53.21 Procedure and treatment not carried out due to patient leaving prior to being seen by health care provider (principal)

== ENCOUNTER 2023-04-18 04:40 | Emergency (ER) | payer MEDICAID, SELFPAY | END 2023-04-18 05:05 | disposition left against medical advice (07) | PROVIDERS: PCP Family Medicine | DX: Z53.21 Procedure and treatment not carried out due to patient leaving prior to being seen by health care provider (principal) ==

== ENCOUNTER 2023-04-29 04:30 | Emergency (ER) | payer MEDICAID, SELFPAY ==
--- NOTE | 2023-04-29 05:15 | DI.CT_ITS ---
Exam(s) CT CHEST PE ABD PELVIS W EXAM: CT CHEST PE ABD PELVIS W CLINICAL HISTORY: CHEST/EPIGASTRIC PAIN. TECHNIQUE: Imaging Protocol: Axial CT angiography was performed with multi-slice acquisition and mu lti-planar and/or 3D reconstructions. CONTRAST MATERIAL: Intravenous: Omnipaque 350contrast volume:100 mL COMPARISON: CR XR CHEST 2V PA LATERAL from 01/28/2023 FINDINGS: CHEST: Tracheobronchial tree: Patent where visualized. Pulmonary parenchyma: No consolidation or dominant measurable mass. No architectural distortion. Atel ectatic changes are seen in the lung bases bilaterally. Pulmonary Arteries: No evidence of filling defect to suggest pulmonary emboli. Mediastinum and Wendy: No dominant adenopathy or fluid collection. The esophagus is unremarkable. Visualized thyroid gland: Unremarkable. Pleura: No effusion or pneumothorax. Heart: The heart is not dilated. No coronary artery calcifications are seen. No pericardial effusion. Aorta: Thoracic aorta non-dilated. No evidence of dissection. Bones: Within normal limits for the patient's age. Soft tissues: Unremarkable. ABDOMEN: Liver: Normal density. No measurable mass. Portal, Superior Mesenteric, and Splenic Veins: Unremarkable. Gallbladder and Biliary Tract: No radiodense calculus or dilation. Pancreas: Normal density, no abnormal calcifications or inflammatory process. Spleen: Calcified granuloma are seen in the spleen. Adrenals: No masses seen. Kidneys: Normal size, contour and axis. No radiodense stones or obstructive uropathy. There are linea r areas of decreased attenuation in both kidneys. Abdominal Aorta: Abdominal portion non-dilated. Bowel: No obstruction or bowel wall thickening. There is no evidence of appendicitis. Peritoneal Cavity: No ascites, collection or mesenteric inflammatory response. No free air. Lymph Nodes: Within normal limits. Bones: Within normal limits for the patient's age. Soft Tissues: Unremarkable. PELVIS: Bladder: Symmetric distention, no gross wall thickening. Reproductive Organs: Unremarkable as visualized. Lymph Nodes: Within normal limits. Bones: Within normal limits. IMPRESSION: 1. No evidence pulmonary embolism, thoracic aortic dissection or aneurysm. 2. No acute pulmonary process. 3. No acute abdominal or pelvic process. 4. There are areas of decreased attenuation in the kidneys bilaterally. These may represent cysts. Th e possibility of pyelonephritis should be considered. Please correlate clinically. Unexpected findings RADIATION DOSE DELIVERED: Total DLP DATA REPOSITORY: All CT scans at this facility are submitted to the National Radiology Data Registry (NRDR) Dose Index Registry (DIR) with the [employer] (A[employer]). RADIATION OPTIMIZATION: All CT scans at this facility use at least one of these dose optimization te chniques: automated exposure control; mA and/or kV adjustment per patient size (includes targeted exa ms where dose is matched to clinical indication); or iterative reconstruction.
--- NOTE | 2023-04-29 08:30 | RT.EKG_ITS ---
APPROVED REPORT Exam: Resting ECG Reason for Exam: Chest Pain Patient Location: E HR:107 bpm ECG Measurements Heart Rate 107 AXIS NC 114 P 47 QRSd 82 QRS 79 QT 310 T 61 QTc 413 Conclusion Age and gender not entered, assume 50 yo male for purpose of ECG interpretation Sinus tachycardia...rate> 99
[2023-04-29] MEDS: Omnipaque 350 MG/ML 100 ML BTL IJ (09:06)
[2023-04-29 10:58] LABS: PTT Activated 19.2 sec (23.6-32.8); Prothrombin Time 9.9 sec (9.1-11.1)
[2023-04-29 10:59] LABS: Anion Gap 8.8 mmol/L (3-11); BUN 24 mg/dL (7-18); CO2 26.2 mmol/L (21.0-32.0); CREATININE 1.3 mg/dL (0.70-1.30); Calcium 9.9 mg/dL (8.5-10.1); Chloride 101 mmol/L (98-107); Estimated GFR 70.34 (mL/min/1.73m2); Glucose 120 mg/dL (74-106); Lipase 27 U/L (16-77); Magnesium 2.1 mg/dL (1.8-2.4); Potassium 4.3 mmol/L (3.5-5.1); Sodium 136 mmol/L (136-145); Troponin I < 50 ng/L (<or=60)
[2023-04-29 11:00] LABS: HCT 39.8 % (40.0-50.0); HGB 13.4 g/dL (13.5-17.5); MCH 28.7 pg (27.0-33.0); MCHC 33.7 % (32.0-36.0); MCV 85 fL (80-95); MPV 8.8 fL (8.0-11.0); Neutrophils % 76.5; Platelet Count 481 10^3/uL (130-400); RBC 4.67 10^6/uL (4.36-5.78); RDW-SD 43.4 fL; WBC 12.13 10^3/uL (4.4-10.8)
[2023-04-29 11:01] LABS: Absolute Basophil Count 0.07 10^3/uL (0.0-0.2); Absolute Eosinophil Count 0.15 10^3/uL (0.0-0.7); Absolute Lymphocyte Count 1.99 10^3/uL (1.2-3.4); Absolute Monocyte Count 0.55 10^3/uL (0.1-0.8); Absolute Neutrophil Count 9.27 10^3/uL (1.2-6.7); Basophils % 0.6; Eosinophils % 1.2; Immature Grans % 0.8; Lymphocytes % 16.4; Monocytes % 4.5
--- NOTE | 2023-04-29 11:10 | DI.VRAD_ITS ---
PROCEDURE INFORMATION: Exam: CTA Chest With Contrast Exam date and time: 04/29/2023 5:28 AM Age: 42 years old Clinical indication: Abdominal pain; Patient HX: Chest pain, epigastric pain TECHNIQUE: Imaging protocol: Computed tomographic angiography of the chest with contrast. Exam focused on the arteries. 3D rendering (Not supervised by radiologist): MIP and/or 3D reconstructed images were created by the technologist. Radiation optimization: All CT scans at this facility use at least one of these dose optimization techniques: automated exposure control; mA and/or kV adjustment per patient size (includes targeted exams where dose is matched to clinical indication); or iterative reconstruction. Contrast material: OMNIPAQUE 350; Contrast volume: 100 ml; Contrast route: INTRAVENOUS (IV); COMPARISON: CR XR CHEST 2V PA LATERAL 01/28/2023 4:55 PM FINDINGS: Pulmonary arteries: No evidence of pulmonary embolism. Aorta: Normal thoracic aorta without aneurysm or dissection. Lungs: Bibasilar dependent atelectasis. Pleural spaces: No pleural effusion or pneumothorax. Heart: Unremarkable. No cardiomegaly. No pericardial effusion. Lymph nodes: Unremarkable. No enlarged lymph nodes. Bones/joints: Healing fracture of the anterior right 7th rib. No acute fracture. Soft tissues: Unremarkable. IMPRESSION: No acute findings. PROCEDURE INFORMATION: Exam: CT Abdomen And Pelvis With Contrast Exam date and time: 04/29/2023 5:28 AM Age: 42 years old Clinical indication: Abdominal pain; Patient HX: Chest pain, epigastric pain TECHNIQUE: Imaging protocol: Computed tomography of the abdomen and pelvis with contrast. Radiation optimization: All CT scans at this facility use at least one of these dose optimization techniques: automated exposure control; mA and/or kV adjustment per patient size (includes targeted exams where dose is matched to clinical indication); or iterative reconstruction. Contrast material: OMNIPAQUE 350; Contrast volume: 100 ml; Contrast route: INTRAVENOUS (IV); COMPARISON: CR XR CHEST 2V PA LATERAL 01/28/2023 4:55 PM FINDINGS: Liver: Normal. No mass. Gallbladder and bile ducts: Normal. No calcified stones. No ductal dilation. Pancreas: Normal. No ductal dilation. Spleen: Calcified splenic granuloma. Adrenal glands: Normal. No mass. Kidneys and ureters: Possible small cysts bilaterally. No hydronephrosis. Stomach and bowel: No evidence of bowel obstruction. Large amount of stool in the colon. No mucosal thickening. Appendix: Nonvisualized appendix. No evidence of appendicitis. Intraperitoneal space: No free fluid or free air. Vasculature: Unremarkable. No abdominal aortic aneurysm. Lymph nodes: Unremarkable. No enlarged lymph nodes. Urinary bladder: Unremarkable as visualized. Reproductive: Unremarkable as visualized. Bones/joints: Limbus vertebra at L3. No acute fracture. Soft tissues: Unremarkable. IMPRESSION: No acute findings. Dictated and Authenticated by: Morgan Matthew MD. Ordering: Accession#=
== END 2023-04-29 10:09 | disposition home or self-care (01) ==
LOC: ER 10:08
PROVIDERS: Emergency Provider Emergency Medicine; PCP Family Medicine
DX: R07.89 Other chest pain; R10.13 Epigastric pain
CPT/HCPCS: 71275; 74177; 80048; 83690; 93005; 99285; 83735; 84484; 85025; 85610; 85730; 93010; 99284; J3490

== ENCOUNTER 2023-05-21 21:34 | Emergency (ER) | payer MEDICAID, SELFPAY ==
[2023-05-21 21:37] VITALS: BP 162/117; PULSE 89; RESP 16; TEMP 36.3; O2SAT 99
[2023-05-21 21:50] VITALS: RESP 16
--- NOTE | 2023-05-21 21:56 | ED.GENADUL_ITS ---
Discharge Plan Discharge Details Chief Complaint: GenMedical Primary Care Provider: Milo Baer ED Provider: Delfina Reyes Home Meds and New Rx's Prescriptions: No Action gabapentin 300 mg capsule 300 mg PO TID montelukast 10 mg tablet 10 mg PO DAILY Patient Comments: not taking multivitamin [Daily Multi-Vitamin] Tablet 1 tab PO DAILY Medical Decision Making 42-year-old male presenting with multiple complaints, some mild swelling to hands and feet, alert, drowsy, emotionally labile, alert and oriented x3, appears to be under the influence of mood altering substances, ambulatory with steady gait, with girlfriend who does not appear to be under the influence of any mood altering substances I did evaluate the patient, he has no obvious evidence of acute endocarditis, no lost chain also with lesions, distal pulses are intact, pupils are equal round and reactive, mildly dilated, I did asked patient regarding his substance abuse and he says he has not used any mood altering substances for the past 10 days, he states he does use cocaine and fentanyl when he has the opportunity. He denies IV drug use for 10 days, he became frustrated when I was asking regarding his IV drug use and said that he is leaving and does not want to be evaluated, I did not have a chance to relay to the patient that he was leaving AGAINST MEDICAL ADVICE but he has not been evaluated Of note I did review his CT chest abdomen and pelvis and diagnostic labs does not show evidence of significant acute abnormality, HPI General Date/Time Provider Initiated Documentation: 05/21/23 21:35 . HPI Narrative: This 42-year-old male presents with swelling of hands and feet for the last week. She states he has not used any illicit drugs for approximately 1 week. He states he last used fentanyl and cocaine 1 week ago. He denies any current chest pain or shortness of breath. He states he has a mild sore throat and some laryngitis. He is also had headache. Denies stiff neck or fever. Related Data Home Medications Medication Instructions Recorded Confirmed gabapentin 300 mg capsule 300 mg PO TID 10/06/22 05/21/23 montelukast 10 mg tablet 10 mg PO DAILY 10/06/22 05/21/23 multivitamin (Daily Multi-Vitamin 1 tab PO DAILY 10/06/22 05/21/23 tablet) Allergies Allergy/AdvReac Type Severity Reaction Status Date / Time No Known Allergies Allergy Verified 04/18/23 03:32 General Stated Complaint: GenMedical JOJO: 3 PFSH All Active Problems (Updated 05/15/23 @ 00:01 by JOCELYNN PARR) Chronic rhinitis (Acute) Fistula, silvia-antral (Acute) Dry tooth socket (Acute) Nasal congestion (Acute) Sinusitis (Acute) Medical History Acute type A viral hepatitis ADHD (attention deficit hyperactivity disorder) Anxiety Arthritis Bipolar disorder Erectile dysfunction History of asthma History of head injury Neuropathy PTSD (post-traumatic stress disorder) Spinal cord compression Social History Smoking/Tobacco Use Status: Current every day Tobacco Type: cigarettes Smoking risk assessment performed?: Yes Alcohol Intake: former Drug use: Daily Substance use type: marijuana, crack/cocaine and other Details: stopped last week Housing: house Do you feel safe at home: Yes Do you feel safe in your relationship?: Yes Course Vital Signs Vital signs: Vital Signs Temperature 36.3 C L 05/21/23 21:37 Pulse 89 05/21/23 21:37 Respiratory Rate 16 05/21/23 21:37 Blood Pressure 162/117 H 05/21/23 21:37 Pulse Oximetry 99 05/21/23 21:37 Temperature 36.3 C L 05/21/23 21:37 Temperature Source Temporal Artery Scan 05/21/23 21:37 Pulse 89 05/21/23 21:37 Respiratory Rate 16 05/21/23 21:37 Respiratory Effort Normal, Accessory Muscle Use 05/21/23 21:41 Blood Pressure 162/117 H 05/21/23 21:37 Blood Pressure Position Supine 05/21/23 21:37 Pulse Oximetry 99 05/21/23 21:37 Oxygen Delivery Method Room Air 05/21/23 21:37 Oxygen Flow Rate 0 05/21/23 21:37 Pain Level 10 05/21/23 21:37
[2023-05-21 22:37] VITALS: BP 162/117; PULSE 89; TEMP 36.3; O2SAT 99
== END 2023-05-21 22:01 ==
LOC: ER 21:38
PROVIDERS: Emergency Provider Physician Assistant; PCP Family Medicine
DX: Z53.29 Procedure and treatment not carried out because of patient's decision for other reasons (principal)

== ENCOUNTER 2023-06-05 17:29 | Emergency (ER) | payer MEDICAID, SELFPAY ==
[2023-06-05 17:40] VITALS: BP 159/88; PULSE 99; RESP 22; TEMP 37.2; O2SAT 97
[2023-06-05 18:06] VITALS: BP 159/88; PULSE 99; RESP 22; TEMP 37.2; O2SAT 97
--- NOTE | 2023-06-05 18:19 | ED.GENADUL_ITS ---
Discharge Plan Disposition Patient Disposition: Home Condition: Stable Discharge Details Clinical Impression: Cutaneous larva migrans, Delusions, Polysubstance abuse Primary Care Provider: Milo Baer ED Provider: Delfina Reyes Home Meds and New Rx's Prescriptions: New albendazole 200 mg tablet 400 mg PO BID 3 Days Qty: 6 0RF Rx Instructions: must administer with food, preferably a high-fat meal Continued gabapentin 300 mg capsule 300 mg PO TID montelukast 10 mg tablet 10 mg PO DAILY Patient Comments: not taking multivitamin [Daily Multi-Vitamin] Tablet 1 tab PO DAILY methadone 10 mg/5 mL solution 90 mg PO DAILY Discharge Instructions Instructions: Acute Rash (ED) Additional Instructions: please follow-up with your doctor at this time it is uncertain as to whether or not you have parasitic infestation please return should you have new or worsening complaints Referrals: Miol Baer [Primary Care Provider] - Medical Decision Making On exam this 43-year-old male with history of polysubstance abuse appears to be quite agitated, he is alert and oriented but endorsing concern for parasite infestation, he has significant xerostomia, appears to be under the influence of stimulants He has generalized excoriations, no evidence of abscess at this time We will give patient 3 days of albendazole, with possible treatment of cutaneous larva a migraines however the etiology of patient's complaints is uncertain at this time, he will need close outpatient follow-up Pupils are equal round reactive to light and accommodation, he is with his girlfriend who is sober clinically He declines any need for mental health assessment He is referred back to his primary care physician HPI General Date/Time Provider Initiated Documentation: 06/05/23 17:35 . HPI Narrative: This 43-year-old male with history of polysubstance abuse presents with report of concern for parasite infestation. States he has noticed larvae and worms f rom numerous lesions on his skin. Denies any picking. Denies any obvious hallucinations. Girlfriend is in room and states she is also seeing lesions and possible parasites. Patient does endorse polysubstance abuse. Related Data Home Medications Medication Instructions Recorded Confirmed gabapentin 300 mg capsule 300 mg PO TID 10/06/22 06/05/23 montelukast 10 mg tablet 10 mg PO DAILY 10/06/22 06/05/23 multivitamin (Daily Multi-Vitamin 1 tab PO DAILY 10/06/22 06/05/23 tablet) albendazole 200 mg tablet 400 mg (2 x 200 mg) PO BID 3 days 06/05/23 #6 tabs methadone 10 mg/5 mL oral solution 90 mg PO DAILY 06/05/23 06/05/23 Previous Rx's Medication Instructions Recorded albendazole 200 mg tablet 400 mg (2 x 200 mg) PO BID 3 days 06/05/23 #6 tabs Allergies Allergy/AdvReac Type Severity Reaction Status Date / Time No Known Allergies Allergy Verified 06/05/23 17:46 General Stated Complaint: RashLesion JOJO: 4 PFSH All Active Problems (Updated 06/05/23 @ 18:24 by OTILIO Shelley) Polysubstance abuse (Acute) Delusions (Acute) Cutaneous larva migrans (Acute) Chronic rhinitis (Acute) Fistula, silvia-antral (Acute) Dry tooth socket (Acute) Nasal congestion (Acute) Sinusitis (Acute) Medical History Acute type A viral hepatitis ADHD (attention deficit hyperactivity disorder) Anxiety Arthritis Bipolar disorder Erectile dysfunction History of asthma History of head injury Neuropathy PTSD (post-traumatic stress disorder) Spinal cord compression Social History Smoking/Tobacco Use Status: Current every day Tobacco Type: cigarettes Smoking risk assessment performed?: Yes Alcohol Intake: former Drug use: Daily Substance use type: crack/cocaine and other Details: uses fentanyl, 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 Housing: house Do you feel safe at home: Yes Do you feel safe in your relationship?: Yes Course Vital Signs Vital signs: Vital Signs Temperature 37.2 C 06/05/23 17:40 Pulse 99 H 06/05/23 17:40 Respiratory Rate 22 06/05/23 17:40 Blood Pressure 159/88 H 06/05/23 17:40 Pulse Oximetry 97 06/05/23 17:40 Temperature 37.2 C 06/05/23 18:06 Temperature Source Skin 06/05/23 17:40 Pulse 99 H 06/05/23 18:06 Respiratory Rate 22 06/05/23 18:06 Respiratory Effort Normal, Non-Labored 06/05/23 17:50 Blood Pressure 159/88 H 06/05/23 18:06 Blood Pressure Position Sitting 06/05/23 17:40 Pulse Oximetry 97 06/05/23 18:06 Oxygen Delivery Method Room Air 06/05/23 17:40 Oxygen Flow Rate 0 06/05/23 17:40 Pain Level 8 06/05/23 17:40
== END 2023-06-05 18:12 | disposition home or self-care (01) ==
PROVIDERS: Emergency Provider Physician Assistant; PCP Family Medicine
DX: F22 Delusional disorders (principal); B76.9 Hookworm disease, unspecified; F19.10 Other psychoactive substance abuse, uncomplicated
CPT/HCPCS: 99283; 99284

== ENCOUNTER 2023-07-15 09:44 | Outpatient (CLI) | payer MEDICAID, SELFPAY ==
[2023-07-15 10:14] LABS: Abs Immature Grans 0.07 10^3/uL (0.0-0.06); Absolute Basophil Count 0.05 10^3/uL (0.0-0.2); Absolute Eosinophil Count 0.26 10^3/uL (0.0-0.7); Absolute Lymphocyte Count 1.67 10^3/uL (1.2-3.4); Absolute Monocyte Count 0.45 10^3/uL (0.1-0.8); Absolute Neutrophil Count 5.57 10^3/uL (1.2-6.7); Basophils % 0.6; Eosinophils % 3.2; HCT 46.7 % (40.0-50.0); HGB 15.3 g/dL (13.5-17.5); Immature Grans % 0.9; Lymphocytes % 20.7; MCH 27.9 pg (27.0-33.0); MCHC 32.8 % (32.0-36.0); MCV 85 fL (80-95); Monocytes % 5.6; Platelet Count 359 10^3/uL (130-400); RBC 5.48 10^6/uL (4.36-5.78); RDW 14.7 % (11.8-14.1); RDW-SD 45.6 fL; WBC 8.07 10^3/uL (4.4-10.8)
[2023-07-15 10:51] LABS: ALT 85 U/L (16-63); AST 55 U/L (15-37); Albumin 3.9 g/dL (3.4-5.0); Alkaline Phosphatase 73 U/L (46-116); Anion Gap 10.2 mmol/L (3-11); BUN 16 mg/dL (7-18); Bilirubin, Total 0.3 mg/dL (0.2-1.0); CO2 26.8 mmol/L (21.0-32.0); Calcium 9.5 mg/dL (8.5-10.1); Chloride 101 mmol/L (98-107); Estimated GFR 95.77 (mL/min/1.73m2); Glucose 123 mg/dL (74-106); Potassium 4.1 mmol/L (3.5-5.1); Sodium 138 mmol/L (136-145); Total Protein 8.6 g/dL (6.4-8.2)
[2023-07-15 11:16] LABS: *AMPHETAMINES SCREEN URINE Negative (Negative); *BARBITURATES SCREEN URINE Negative (Negative); *BENZODIAZEPINES SCREEN URINE Negative (Negative); Cannabinoids THC Positive (Negative); Cocaine Screen,Urine Negative (Negative); METHADONE URINE SCREEN Negative (Negative); OPIATES URINE SCREEN Negative (Negative); Tricyclic Antidepressants Negative (Negative)
[2023-07-15 17:57] LABS: HBs Antibody, Quant 92.6 mIU/mL (See Note); Hepatitis B Surface Ab Positive (See Note)
[2023-07-15 18:09] LABS: Hepatitis B Surface Ag Negative (Negative)
[2023-07-15 18:37] LABS: Hepatitis C Ab w Rflx HCV PCR Negative (Negative)
[2023-07-15 18:43] LABS: Hep A Total Ab w Rflx IgM Positive (Negative)
[2023-07-15 19:03] LABS: HIV-1/2 Ag & Ab Screen Negative (Negative)
[2023-07-15 19:48] LABS: Hep B Core Antibody Positive (Negative)
[2023-07-16 09:11] LABS: Hep A Antibody IgM Negative (Negative)
[2023-07-16 11:48] LABS: Syphilis Serology (RPR) Negative (Negative)
[2023-07-16 16:36] LABS: Chlamydia Result Negative (Negative); GC Result Negative (Negative)
[2023-07-19 11:32] LABS: TB Interpretation Negative (Negative); TB1 Ag minus Nil 0.08 IU/ml; TB2 Ag minus Nil 0.14 IU/mL
[2023-07-20 11:47] LABS: Fentanyl Interpretation Positive.; Fentanyl by LC-MS/MS 0.6 ng/mL; Norfentanyl by LC-MS/MS 1.6 ng/mL
[2023-07-21 11:28] LABS: Amphetamine Negative ng/mL (Cutoff: 25); Amphetamines Interpretation Negative.; MDA (Ecstasy Metabolite) Negative ng/mL (Cutoff: 25); MDMA (Ecstasy) Negative ng/mL (Cutoff: 25); Methamphetamine Negative ng/mL (Cutoff: 25); Phentermine Negative ng/mL (Cutoff: 25); Pseudoephedrine/Ephedrine Negative ng/mL (Cutoff: 25)
[2023-07-21 23:22] LABS: Norbuprenorphine 220.8 ng/mL (Cutoff: 2.5)
== END 2023-07-15 09:45 | disposition home or self-care (01) ==
PROVIDERS: PCP Family Medicine; Visit Provider Nurse Practitioner Family
DX: Z11.59 Encounter for screening for other viral diseases (principal); Z11.4 Encounter for screening for human immunodeficiency virus [HIV]; Z72.89 Other problems related to lifestyle; F11.20 Opioid dependence, uncomplicated
CPT/HCPCS: 36415; 80053; 80307; 80324; 80348; 86704; 86706; 86709; 86803; 87340; 87389; 87491; 87591; 80354; 85025; 86480; 86592

== ENCOUNTER 2023-11-25 21:02 | Inpatient (IN) | payer MEDICAID, SELFPAY ==
[2023-11-25] VITALS (31 sets, daily range): BP systolic 134–153; BP diastolic 58–83; PULSE 81–98; RESP 11–30; O2SAT 93–99
--- NOTE | 2023-11-25 21:00 | RT.EKG_ITS ---
APPROVED REPORT Exam: Resting ECG Reason for Exam: overdose Patient Location: E HR:99 bpm ECG Measurements Heart Rate 99 AXIS MA 122 P 24 QRSd 94 QRS 47 QT 368 T 33 QTc 472 Conclusion Sinus rhythm.. 99 normal axis stemi
--- NOTE | 2023-11-25 21:15 | ED.GENADUL_ITS ---
Discharge Plan Disposition Patient Disposition: Admit to [facility] Condition: Fair Discharge Details Clinical Impression: Polysubstance abuse, Hypokalemia, Rhabdomyolysis, MADDIE (acute kidney injury), Acute dehydration, Altered mental status Primary Care Provider: Raffi Merida ED Provider: Tiesha Dawson Home Meds and New Rx's Prescriptions: No Action gabapentin 300 mg capsule 300 mg PO TID Qty: 270 3RF sildenafil (pulm.hypertension) 20 mg tablet 20 mg PO DAILY PRN (Reason: sexual activity) Qty: 30 6RF buprenorphine-naloxone [Suboxone] 12-3 mg film 2 film buccal Q24H Rx Instructions: place 1 strip/tab under (each) side of tongue furosemide 20 mg tablet Patient Comments: TAKE ONE-HALF TABLET BY MOUTH EVERY DAY FOR 30 DAYS HPI General Date/Time Provider Initiated Documentation: 11/25/23 21:06 . Limitations to Documentation: altered mental status and physical limitation . Information obtained by: EMS . HPI Narrative: 43-year-old gentleman with past medical history including endocarditis, IV drug abuse, hepatitis C presents for evaluation of altered mental status. He called EMS this evening when he had uncontrolled body movements after taking xylazine. He reports that this has happened prior when he is taking this drug. He was noted to be naked in the front yard of his home upon EMS arrival. They report that he was moving his body and very abnormal ways and that he was observed to fall off the porch. The patient was interested in receiving care and willingly got into the ambulance. Because of his uncontrollable movements, he was given 5 mg of Versed which seemed to result in significant improvement per EMS. Patient is not able to provide any additional history at this time. Related Data Home Medications Medication Instructions Recorded Confirmed buprenorphine 12 mg-naloxone 3 mg 2 film buccal Q24H 08/30/23 11/25/23 sublingual film (Suboxone) gabapentin 300 mg capsule 300 mg PO TID #270 caps 11/22/23 11/25/23 sildenafil (pulm.hypertension) 20 20 mg PO DAILY PRN sexual activity 11/22/23 11/25/23 mg tablet #30 tabs furosemide 20 mg tablet mg 11/25/23 Previous Rx's Medication Instructions Recorded gabapentin 300 mg capsule 300 mg PO TID #270 caps 11/22/23 sildenafil (pulm.hypertension) 20 20 mg PO DAILY PRN sexual activity 11/22/23 mg tablet #30 tabs Allergies Allergy/AdvReac Type Severity Reaction Status Date / Time No Known Allergies Allergy Unverified 11/25/23 21:37 General Stated Complaint: OD/Poison JOJO: 2 Exam Narrative Exam Narrative: Review of Systems: All systems reviewed & are unremarkable except as noted in HPI and below Well-developed,++ acute distress diaphoretic 1 cm laceration over the left eyebrow PERRL 2mm , normal conjunctiva no murmur clear breath sounds bilaterally Nondistended abdomen , soft Extremities: no cyanosis, no edema scattered abrasions, no deformities GCS: Eye 3 / v 3/ motor 5 Appropriate mood and affect Medical Decision Making Emergent evaluation of altered mental status. Patient reported to EMS that he did xylazine fentanyl and cocaine. Uncontrollable body movements likely secondary to polysubstance use. On arrival, the patient was noted to be calm and maintaining his own respiratory effort after 5 mg of IM Versed. Pupils are noted to be pinpoint. Considered Narcan, but given that the patient has a normal respiratory rate and effort I will not give Narcan at this time. Patient is noted to have small laceration to the face and was observed to fall off a porch. Will get a head CT to evaluate for intracranial trauma. He has multiple scattered contusions and abrasions on his extremities, but no obvious deformities. Would need a secondary survey after patient returns to normal mental status. He has a pretty significant history endocarditis. on arrival, placed on ETCO2 and will monitor closely for respiratory depression. 2149 Lab work reviewed, there is leukocytosis more likely chest shift than infectious etiology. Chemistry concerning for hypokalemia. Gap significantly elevated, likely lactic acidosis. Will give IV repletion of potassium. Will continue fluid resuscitation as this CPK is significantly elevated at 3900 and patient has an MADDIE and elevated BUN. 2229 CT head unremarkable. VItal signs stable. Will admit to the hospital for MADDIE, dehydration, rhabdo. Medical Records Medical records reviewed: Yes I reviewed the patient's medical records. Lab Data Lab results reviewed: Yes I reviewed the patient's lab results. Quality:SDOH Health Related Social Needs: Health related social needs personal safety Health related social needs details [place] [facility]. [facility] All Active Problems (Updated 11/25/23 @ 21:55 by Tiesha Dawson MD) Altered mental status (Acute) Acute dehydration (Acute) MADDIE (acute kidney injury) (Acute) Rhabdomyolysis (Acute) Hypokalemia (Acute) Polysubstance abuse (Acute) Tricuspid insufficiency (Acute) Mitral regurgitation (Chronic) Dysphagia (Acute) Hepatitis C (Chronic) Chronic rhinitis (Acute) Fistula, silvia-antral (Acute) Dry tooth socket (Acute) Nasal congestion (Acute) Sinusitis (Acute) Medical History Spinal cord compression PTSD (post-traumatic stress disorder) Neuropathy History of head injury History of asthma Erectile dysfunction Bipolar disorder ADHD (attention deficit hyperactivity disorder) Arthritis Anxiety Acute type A viral hepatitis Family History Mother Substance use disorder Anxiety disorder Depression Diabetes Father Substance use disorder Depression Social History Smoking/Tobacco Use Status: Current every day Tobacco Type: cigarettes Smoking packs per day: 1 Smoking cigarettes per day: 20.0 Tobacco: How many years used: 15 Quit status: considering quitting Second Hand Exposure: No Smoking risk assessment performed?: Yes Alcohol Intake: former Drug use: Daily Substance use type: marijuana, crack/cocaine, tranquilizers, opiates, painkillers, IV drugs, methamphetamine and prescription drug Details: uses fentanyl, 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 Pets and animals: Yes (4 Dogs, 2 Cats) Pets and animals: cat(s) and dog(s) Sexually active: No Do you think of yourself as: straight/heterosexual Current gender identity: male What is your relationship status?: How often do you talk on the phone with friends or family?: never How often do you get together with friends or relatives?: never Do you belong to any clubs or organized social groups?: no Panel score (0-1 are the most socially isolated patients): 0 What type of physical activity do you participate in: none Ana/Orthodoxy: None Seatbelt use: never Helmet use: Yes Helmet use: sometimes Drive intox or ride w/intox bulk driver: No Do you feel safe at home: Yes Do you feel safe in your relationship?: Yes
[2023-11-25 21:20] LABS: Abs Immature Grans 0.14 10^3/uL (0.0-0.06); Absolute Basophil Count 0.05 10^3/uL (0.0-0.2); Absolute Monocyte Count 0.89 10^3/uL (0.1-0.8); Basophils % 0.3 %; Eosinophils % 0.1 %; HGB 11.6 g/dL (13.5-17.5); Immature Grans % 0.9 %; Lymphocytes % 4.7 %; MCH 29.3 pg (27.0-33.0); MCHC 34.1 % (32.0-36.0); MCV 86 fL (80-95); MPV 9.3 fL (8.0-11.0); Monocytes % 5.9 %; Neutrophils % 88.1 %; Platelet Count 318 10^3/uL (130-400); RBC 3.96 10^6/uL (4.36-5.78); RDW 14.1 % (11.8-14.1); RDW-SD 44.2 fL; WBC 15.16 10^3/uL (4.4-10.8)
[2023-11-25 21:21] LABS: Absolute Eosinophil Count 0.02 10^3/uL (0.0-0.7); Absolute Lymphocyte Count 0.71 10^3/uL (1.2-3.4); Absolute Neutrophil Count 13.36 10^3/uL (1.2-6.7)
[2023-11-25] MEDS: Normal Saline 1,000 ML 1000 ML IV ×2 (21:23→22:20)
[2023-11-25 21:42] LABS: ALT 190 U/L (16-63); AST 316 U/L (15-37); Albumin 4.1 g/dL (3.4-5.0); Alkaline Phosphatase 105 U/L (46-116); Anion Gap 23.2 mmol/L (3-11); BUN 53 mg/dL (7-18); Bilirubin, Total 1.8 mg/dL (0.2-1.0); CO2 15.8 mmol/L (21.0-32.0); CREATININE 2.2 mg/dL (0.70-1.30); Calcium 9.2 mg/dL (8.5-10.1); Chloride 97 mmol/L (98-107); Estimated GFR 37.18 (mL/min/1.73m2); Glucose 149 mg/dL (74-106); Magnesium 2.5 mg/dL (1.8-2.4); Sodium 136 mmol/L (136-145); Total Protein 8.9 g/dL (6.4-8.2)
[2023-11-25 21:44] LABS: Creatine Kinase 3932 U/L (39-308)
--- NOTE | 2023-11-25 22:05 | DI.CT_ITS ---
Exam(s) CT HEAD WO EXAM: CT HEAD WO CLINICAL HISTORY: trauma. TECHNIQUE: Imaging Protocol: Axial computed tomography images with coronal and sagittal reformatted images were created and reviewed COMPARISON: CT CT HEAD/BRAIN WO CONTRAST from 02/26/2023 FINDINGS: Ventricles and Extra axial spaces: Normal in size and morphology for the patient's age. Hemorrhage: None. Cerebral parenchyma: No evidence of acute infarct or mass. Midline shift: None. Brainstem/Cerebellum: Normal. Calvarium: Normal. Visualized Paranasal sinuses:Mucosal thickening. Mastoids: Clear. Soft Tissues: Unremarkable. ORBITS: Unremarkable. PITUITARY: Not enlarged. IMPRESSION: No acute intracranial process. RADIATION DOSE DELIVERED: 807.49mGy.cm Total DLP DATA REPOSITORY: All CT scans at this facility are submitted to the National Radiology Data Registry (NRDR) Dose Index Registry (DIR) with the [employer] (ACR). RADIATION OPTIMIZATION: All CT scans at this facility use at least one of these dose optimization te chniques: automated exposure control; mA and/or kV adjustment per patient size (includes targeted exa ms where dose is matched to clinical indication); or iterative reconstruction.
--- NOTE | 2023-11-25 22:19 | DI.VRAD_ITS ---
PROCEDURE INFORMATION: Exam: CT Head Without Contrast Exam date and time: 11/25/2023 9:59 PM Age: 43 years old Clinical indication: Injury or trauma; Fall; Blunt trauma (contusions or hematomas); Injury date: 11/25/23; Injury details: Patient fell and hit head; Patient HX: Trauma, od TECHNIQUE: Imaging protocol: Computed tomography of the head without contrast. Radiation optimization: All CT scans at this facility use at least one of these dose optimization techniques: automated exposure control; mA and/or kV adjustment per patient size (includes targeted exams where dose is matched to clinical indication); or iterative reconstruction. COMPARISON: CT HEAD/BRAIN WO CONTRAST 02/26/2023 9:29 AM FINDINGS: Brain: No intracranial hemorrhage or extra-axial fluid collection. No evidence of mass effect or midline shift. Mendoza-white matter differentiation is intact. Cerebral ventricles: No ventriculomegaly. Paranasal sinuses: Unremarkable. No fluid levels. Mastoid air cells: Unremarkable. Bones: Unremarkable. No acute fracture. Soft tissues: Scalp soft tissues are unremarkable. IMPRESSION: No acute intracranial pathology. Dictated and Authenticated by: Juan Spring MD. Ordering:[facility] Samir Bro MD
[2023-11-25] MEDS: POTASSIUM CHLORIDE 10 MEQ/100 ML BAG 100 MEQ IVINF (22:20)
--- NOTE | 2023-11-25 23:55 | HPE_ITS ---
Date of service: 12/02/23 Time of Service: 23:55 Assessment and Plan Assessment and plan (1) Rhabdomyolysis: Start date: 11/25/23 Status: Acute Assessment and plan: This is a 43-year-old gentleman with acute rhabdomyolysis secondary to agitation and continuous movement and twitching of muscles which prompted him to call the EMS service. Patient with polysubstance abuse and question of side effects with substances recently on a binge using xylazine and cocaine with narcotics. IV hydration with acute dehydration as well. Trend CPK and watch for adequate urine output. Patient is a full code. Qualifiers: Rhabdomyolysis type: non-traumatic Qualified Code(s): M62.82 - Rhabdomyolysis (2) Restlessness and agitation: Start date: 11/25/23 Status: Acute Assessment and plan: Patient has polysubstance abuse and could be going through narcotic withdrawal with sedation now after 1 dose of Versed in the field administered by EMS. Patient will be watched closely for respiratory suppression for admitted to the ICU with capnography monitoring. Urine drug screen. Monitor and treat agitation as needed in ICU with close respiratory status observation. He is not on SSRIs chronically and is on Suboxone chronically though this has not been taken over the last couple of weeks with other illicit drug use. He has been using xylazine with cocaine which may have caused agitation. He also takes chronic narcotics. (3) Acute dehydration: Start date: 11/25/23 Status: Acute Assessment and plan: IV hydration which also treat rhabdomyolysis. Trend labs. Watch for fluid overload. (4) Hypokalemia: Start date: 11/25/23 Status: Acute Assessment and plan: With acute metabolic acidosis and dehydration. Will be repleted with IV potassium and trending labs. (5) Leukocytosis (leucocytosis): Start date: 11/25/23 Status: Acute Assessment and plan: Most likely secondary to acute stress with no evidence of acute infection though should watch closely for aspiration with sedation now after Versed. Trend labs. Qualifiers: Leukocytosis type: other Qualified Code(s): D72.828 - Other elevated white blood cell count (6) Polysubstance abuse: Status: Chronic Assessment and plan: Supportive care monitoring for withdrawal. Urine drug screen. (7) Neuropathy: Assessment and plan: Continue outpatient gabapentin as patient is able to swallow. (8) PTSD (post-traumatic stress disorder): Assessment and plan: Patient would do better with closer mental health treatment and supervision, though he appears to be noncompliant. He is self treating with polysubstance abuse. (9) Hepatitis C: Status: Chronic Assessment and plan: Monitor liver functions and follow-up PT/INR. Once patient awakens we can review history of treatment and should update infectious status. This will be done as an outpatient. Qualifiers: Hepatic coma status: without hepatic coma Viral hepatitis chronicity: c hronic Qualified Code(s): B18.2 - Chronic viral hepatitis C History of Present Illness History of Present Illness Chief Complaint: Uncontrolled body movements N arrative: This is a 43-year-old male patient who is a known IV drug user who has been on a 11 days of increased illicit drug use including cocaine, salicylate and fentanyl. He called EMS because of uncontrolled body movements after taking xylazine and was found to be negative in the front yard of his home at the time EMS arrived. EMS reported the patient was having total body abnormal movement but no seizure activity and he did fall all 14. Head laceration required. The fluently and with care with 5 mg of Versed in the which seem to calm the patient's body movements and he was sedated at the time I saw him. He was easily aroused and would start jerking when awake. He was unable to give further history. Patient's girlfriend did report that he has been on a binge with drug use for 11 days and not sleeping for at least 7 days. He did get treated at [facility] and June 2023 but has recurrent relapses. In the ED he was found to have rhabdomyolysis with acute kidney injury and was initiated on IV hydration. He was cooperative with IV fluid resuscitation and comfortable with no obvious compromise airway though he was sedated. He will be admitted to the ICU for close observation because of his respiratory status and unknown amount of drug intoxication. Capnography will be watched closely. He is a full code. Review of Systems Narrative: 13 point review of systems otherwise unrevealing or unobtainable with patient sedated. [facility] All Active Problems Leukocytosis (leucocytosis) (Acute) Restlessness and agitation (Acute) Altered mental status (Acute) Acute dehydration (Acute) MADDIE (acute kidney injury) (Acute) Rhabdomyolysis (Acute) Hypokalemia (Acute) Polysubstance abuse (Chronic) Tricuspid insufficiency (Acute) Mitral regurgitation (Chronic) Dysphagia (Acute) Hepatitis C (Chronic) Chronic rhinitis (Acute) Fistula, silvia-antral (Acute) Dry tooth socket (Acute) Nasal congestion (Acute) Sinusitis (Acute) Medical History Spinal cord compression PTSD (post-traumatic stress disorder) Neuropathy History of head injury History of asthma Erectile dysfunction Bipolar disorder ADHD (attention deficit hyperactivity disorder) Arthritis Anxiety Acute type A viral hepatitis Family History Mother Substance use disorder Anxiety disorder Depression Diabetes Father Substance use disorder Depression Social History Smoking/Tobacco Use Status: Current every day Tobacco Type: cigarettes Smoking packs per day: 1 Smoking cigarettes per day: 20.0 Tobacco: How many years used: 15 Quit status: considering quitting Second Hand Exposure: No Smoking risk assessment performed?: Yes Alcohol Intake: former Drug use: Daily Substance use type: marijuana, crack/cocaine, tranquilizers, opiates, painkillers, IV drugs, methamphetamine and prescription drug Details: uses fentanyl, 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 Pets and animals: Yes (4 Dogs, 2 Cats) Pets and animals: cat(s) and dog(s) Sexually active: No Do you think of yourself as: straight/heterosexual Current gender identity: male What is your relationship status?: How often do you talk on the phone with friends or family?: never How often do you get together with friends or relatives?: never Do you belong to any clubs or organized social groups?: no Panel score (0-1 are the most socially isolated patients): 0 What type of physical activity do you participate in: none Ana/Catholic: None Seatbelt use: never Helmet use: Yes Helmet use: sometimes Drive intox or ride w/intox front end loader driver: No Do you feel safe at home: Yes Do you feel safe in your relationship?: Yes Meds Allergies and Home Medications Allergies Allergy/AdvReac Type Severity Reaction Status Date / Time No Known Allergies Allergy Unverified 11/25/23 21:37 Home Medications Medication Instructions Recorded Confirmed Type buprenorphine 12 mg-naloxone 3 mg 2 film buccal Q24H 08/30/23 11/25/23 History sublingual film (Suboxone) gabapentin 300 mg capsule 300 mg PO TID #270 caps 11/22/23 11/25/23 Rx sildenafil (pulm.hypertension) 20 20 mg PO DAILY PRN sexual activity 11/22/23 11/25/23 Rx mg tablet #30 tabs furosemide 20 mg tablet mg 11/25/23 History Exam Narrative Exam Narrative: General: Patient appears older than stated age, lying in the position on his left side becoming agitated and having total body jerking movements when awakened. He does not follow commands. He appears sedated. He is breathing comfortably on O2 supplementation. He has tattoos over most of his body. HEENT: Normocephalic. Facial features. New horizontal laceration with old scars over the left forehead without active bleeding. Eyes with pupils equal and reactive to light symmetrically, extraocular intact and sclera anicteric. Oropharynx with dry mucosa and poor dentition. Neck: Supple without JVD. Lungs: Fair aeration and clear to auscultation With no focalizing rales or rhonchi. Bronchovesicular breath sounds diffusely. Heart: Regular rate and rhythm with no murmurs gallops appreciated. Abdomen: Normal contour, soft to palpation with no palpable hepatosplenomegaly. No focalizing tenderness, guarding or rebound. Bowel sounds positive in all quadrants. Genitalia/rectal: Exam deferred. Extremities are without clubbing, cyanosis or pitting edema. Good capillary refill and peripheral pulses intact. Skin: Fresh, 2 cm lacerations of the left forehead not requiring sutures, darkly tanned and heavily tattooed skin with otherwise normal color on exposed skin, moist to palpation and warm. Neuro: Cranial nerves II through XII appear to be grossly intact, no focalizing motor deficits. Diffuse increased tone with unorganized body jerking movements but patient is awake and and agitated. No resting tremor. Psych: Flattened affect and agitated with patient delirious having had Versed for sedation and on the multiple illicit drugs unknown amount and timing of exposure. Unable to assess abnormal thought processes or memory. Results Imaging Imaging Studies: Exam: CT Head Without Contrast Exam date and time: 11/25/2023 9:59 PM Age: 43 years old Clinical indication: Injury or trauma; Fall; Blunt trauma (contusions or hematomas); Injury date: 11/25/23; Injury details: Patient fell and hit head; Patient HX: Trauma, od TECHNIQUE: Imaging protocol: Computed tomography of the head without contrast. Radiation optimization: All CT scans at this facility use at least one of these dose optimization techniques: automated exposure control; mA and/or kV adjustment per patient size (includes targeted exams where dose is matched to clinical indication); or iterative reconstruction. COMPARISON: CT HEAD/BRAIN WO CONTRAST 02/26/2023 9:29 AM FINDINGS: Brain: No intracranial hemorrhage or extra-axial fluid collection. No evidence of mass effect or midline shift. Mendoza-white matter differentiation is intact. Cerebral ventricles: No ventriculomegaly. Paranasal sinuses: Unremarkable. No fluid levels. Mastoid air cells: Unremarkable. Bones: Unremarkable. No acute fracture. Soft tissues: Scalp soft tissues are unremarkable. IMPRESSION: No acute intracranial pathology. Labs 11/25/23 21:10 11/25/23 21:10 Labs: Laboratory Results - last 24 hr 11/25/23 21:10 WBC 15.16 H RBC 3.96 L Hgb 11.6 L Hct 34.0 L MCV 86 MCH 29.3 MCHC 34.1 RDW 14.1 Plt Count 318 MPV 9.3 Immature Gran % 0.9 Neutrophils % 88.1 Lymphocytes % 4.7 Monocytes % 5.9 Eosinophils % 0.1 Basophils % 0.3 Nucleated RBC % 0.0 Absolute Neutrophils 13.36 H Absolute Lymphocytes 0.71 L Absolute Monocytes 0.89 H Absolute Eosinophils 0.02 Absolute Basophils 0.05 Sodium 136 Potassium 3.0 L Chloride 97 L Carbon Dioxide 15.8 L Anion Gap 23.2 H BUN 53 H Creatinine 2.2 H Est GFR (CKD-EPI 2020) 37.18 Glucose 149 H Calcium 9.2 Magnesium 2.5 H Total Bilirubin 1.8 H AST 316 H ALT 190 H Alkaline Phosphatase 105 Creatine Kinase 3932 H Total Protein 8.9 H Albumin 4.1 Last Vital Signs Pulse 83 11/25/23 22:46 Resp 13 11/25/23 22:46 BP 139/68 11/25/23 22:46 Pulse Ox 95 11/25/23 22:46 Time Spent Time spent with Patient: >75 minutes Time was spent: preparing to see the patient(eg.review tests), obtaining and/or reviewing separately otained hiistory, ordering medications,tests, procedures, referring, communicating with other health furnace caretaker, indepentently interpreting results and care coordination
[2023-11-26] VITALS (25 sets, daily range): BP systolic 110–147; BP diastolic 61–84; PULSE 74–99; RESP 9–26; TEMP 37.1–37.2; O2SAT 92–99
--- NOTE | 2023-11-26 00:53 | W.PC.ACHO ---
Registration Status: REG ER Primary Language: Preferred Language: ED Information & Data Chief Complaint OD/Poison 11/25/23 21:25 Chief Complaint OD/Poison 11/25/23 21:18 Triage Note Pt reported to have done, 11/25/23 21:06 crack, fentanyl and xylazine . Lost george control, acting erratic. GF on scene confirms his drug intake. Was given 5 mg Versed in field by EMS, was able to calm. Witnessed fall by EMS off porch, on grassy area. No significant LENIN per EMS. Has some abrasions. Subjective Pt somnolent GCS 9 11/25/23 21:25 Medical / Surgical History (Last Reviewed 11/25/23 @ 23:55 by Augustus Hampton) Spinal cord compression PTSD (post-traumatic stress disorder) Neuropathy History of head injury History of asthma Erectile dysfunction Bipolar disorder ADHD (attention deficit hyperactivity disorder) Arthritis Anxiety Acute type A viral hepatitis Most Recent Vital Signs Pulse 83 11/25/23 22:46 Pulse 85 11/25/23 22:46 Respiratory Rate 13 11/25/23 22:46 Respiratory Effort Normal 11/25/23 21:48 Respiratory Depth Deep 11/25/23 21:48 Respiratory Pattern Tachypnea 11/25/23 21:15 Blood Pressure 139/68 11/25/23 22:46 Blood Pressure Mean 93 11/25/23 22:46 Pulse Oximetry 95 11/25/23 22:46 Respiratory End-tidal CO2 34 11/25/23 22:46 Oxygen Delivery Method Nasal Cannula 11/25/23 21:48 Oxygen Flow Rate 2 11/25/23 21:48 Allergies No Known Allergies Allergy (Unverified 11/25/23 21:37) IV IV Catheter Type [Left Forearm Saline Lock ] IV Catheter Gauge [Left 18 Forearm] Diet Orders Category Date Time Status Nothing Per Oral [DIET] Nutrition 11/26/23 Breakfast Active Diagnostics 11/26/23 11/26/23 11/26/23 Range/Units 23:35 17:35 11:35 WBC (4.4-10.8) 10^3/uL RBC (4.36-5.78) 10^6/uL Hgb (13.5-17.5) g/dL Hct (40.0-50.0) % MCV (80-95) fL MCH (27.0-33.0) pg MCHC (32.0-36.0) % RDW (11.8-14.1) % Plt Count (130-400) 10^3/uL MPV (8.0-11.0) fL Immature Gran % % Neutrophils % % Lymphocytes % % Monocytes % % Eosinophils % % Basophils % % Nucleated RBC % (0.0-0.3) % Absolute Neutrophils (1.2-6.7) 10^3/uL Absolute Lymphocytes (1.2-3.4) 10^3/uL Absolute Monocytes (0.1-0.8) 10^3/uL Absolute Eosinophils (0.0-0.7) 10^3/uL Absolute Basophils (0.0-0.2) 10^3/uL PT INR Sodium (136-145) mmol/L Potassium (3.5-5.1) mmol/L Chloride (98-107) mmol/L Carbon Dioxide (21.0-32.0) mmol/L Anion Gap (3-11) mmol/L BUN (7-18) mg/dL Creatinine (0.70-1.30) mg/dL Est GFR (CKD-EPI 2020) (mL/min/1.73m2) Glucose (74-106) mg/dL Calcium (8.5-10.1) mg/dL Magnesium (1.8-2.4) mg/dL Total Bilirubin (0.2-1.0) mg/dL AST (15-37) U/L ALT (16-63) U/L Alkaline Phosphatase (46-116) U/L Creatine Kinase Pending Pending Pending (39-308) U/L Total Protein (6.4-8.2) g/dL Albumin (3.4-5.0) g/dL 11/26/23 11/25/23 Range/Units 05:35 21:10 WBC Pending 15.16 H (4.4-10.8) 10^3/uL RBC Pending 3.96 L (4.36-5.78) 10^6/uL Hgb Pending 11.6 L (13.5-17.5) g/dL Hct Pending 34.0 L (40.0-50.0) % MCV Pending 86 (80-95) fL MCH Pending 29.3 (27.0-33.0) pg MCHC Pending 34.1 (32.0-36.0) % RDW Pending 14.1 (11.8-14.1) % Plt Count Pending 318 (130-400) 10^3/uL MPV Pending 9.3 (8.0-11.0) fL Immature Gran % 0.9 % Neutrophils % 88.1 % Lymphocytes % 4.7 % Monocytes % 5.9 % Eosinophils % 0.1 % Basophils % 0.3 % Nucleated RBC % 0.0 (0.0-0.3) % Absolute Neutrophils 13.36 H (1.2-6.7) 10^3/uL Absolute Lymphocytes 0.71 L (1.2-3.4) 10^3/uL Absolute Monocytes 0.89 H (0.1-0.8) 10^3/uL Absolute Eosinophils 0.02 (0.0-0.7) 10^3/uL Absolute Basophils 0.05 (0.0-0.2) 10^3/uL PT Pending INR Pending Sodium Pending 136 (136-145) mmol/L Potassium Pending 3.0 L (3.5-5.1) mmol/L Chloride Pending 97 L (98-107) mmol/L Carbon Dioxide Pending 15.8 L (21.0-32.0) mmol/L Anion Gap Pending 23.2 H (3-11) mmol/L BUN Pending 53 H (7-18) mg/dL Creatinine Pending 2.2 H (0.70-1.30) mg/dL Est GFR (CKD-EPI 2020) Pending 37.18 (mL/min/1.73m2) Glucose Pending 149 H (74-106) mg/dL Calcium Pending 9.2 (8.5-10.1) mg/dL Magnesium 2.5 H (1.8-2.4) mg/dL Total Bilirubin Pending 1.8 H (0.2-1.0) mg/dL AST Pending 316 H (15-37) U/L ALT Pending 190 H (16-63) U/L Alkaline Phosphatase Pending 105 (46-116) U/L Creatine Kinase Pending 3932 H (39-308) U/L Total Protein Pending 8.9 H (6.4-8.2) g/dL Albumin Pending 4.1 (3.4-5.0) g/dL Intake and Output - 24 Hour Total 11/25/23 20:52 thru 11/25/23 21:06 Weight 78.7 kg Falls Risk Assessment History of Falls No History 11/25/23 21:29 Contributing Factors Confusion,Impairments, 11/25/23 21:29 Medications Ambulatory Aids Independent 11/25/23 21:29 Tubes/Lines With any additional score 11/25/23 21:29 Gait Evaluation W/no contributing factors 11/25/23 21:29 Cognition Cognitive impairment 11/25/23 21:29 Fall Total Score 54 11/25/23 21:29 Level of Risk High Risk 11/25/23 21:29 Problems (Last Reviewed 11/25/23 @ 23:55 by Augustus Hampton) Leukocytosis (leucocytosis) (Acute) Restlessness and agitation (Acute) Altered mental status (Acute) Acute dehydration (Acute) MADDIE (acute kidney injury) (Acute) Rhabdomyolysis (Acute) Hypokalemia (Acute) Polysubstance abuse (Chronic) Hepatitis C (Chronic) v v v v v v v v v Sending and/or Receiving Nurses: Please use comment section below to note any information pertinent to the patient hand-off not included above. Information / Comments: Report received from: Manolo HERNANDEZ
[2023-11-26] MEDS: Normal Saline 1,000 ML 150 ML IV ×2 (01:09→08:18)
[2023-11-26] MEDS: POTASSIUM CHLORIDE 20 MEQ/100 ML BAG 50 MEQ IVINF ×2 (01:26→03:19)
[2023-11-26] MEDS: Lidocaine 2% Jelly 6 ML SYR (01:45)
--- NOTE | 2023-11-26 01:59 | NUR.NOTE ---
Nursing Note: On admission pt complained of needing to pee but being unable to. Bladder was palpable and scan showed >1000 mL. Ladd placed for retention with 1000 mL initial output. Tube clamped for 10 min and is now open again.
[2023-11-26 02:07] LABS: *AMPHETAMINES SCREEN URINE Positive (Negative); *BARBITURATES SCREEN URINE Negative (Negative); *BENZODIAZEPINES SCREEN URINE Positive (Negative); Cannabinoids THC Negative (Negative); Cocaine Screen,Urine Positive (Negative); METHADONE URINE SCREEN Negative (Negative); OPIATES URINE SCREEN Negative (Negative)
[2023-11-26 02:11] LABS: Tricyclic Antidepressants Negative (Negative)
[2023-11-26 06:53] LABS: HCT 31.9 % (40.0-50.0); HGB 10.7 g/dL (13.5-17.5); MCH 28.7 pg (27.0-33.0); MCHC 33.5 % (32.0-36.0); MCV 86 fL (80-95); MPV 10.2 fL (8.0-11.0); Platelet Count 259 10^3/uL (130-400); RBC 3.73 10^6/uL (4.36-5.78); RDW 14.6 % (11.8-14.1); RDW-SD 45.1 fL; WBC 14.11 10^3/uL (4.4-10.8)
[2023-11-26 07:00] LABS: INR 1.1 (0.9-1.1); Prothrombin Time 11.1 sec (9.1-11.1)
[2023-11-26 07:23] LABS: ALT 173 U/L (16-63); AST 304 U/L (15-37); Albumin 3.3 g/dL (3.4-5.0); Alkaline Phosphatase 94 U/L (46-116); BUN 38 mg/dL (7-18); Bilirubin, Total 0.9 mg/dL (0.2-1.0); CREATININE 1.2 mg/dL (0.70-1.30); Calcium 8.3 mg/dL (8.5-10.1); Chloride 106 mmol/L (98-107); Estimated GFR 76.95 (mL/min/1.73m2); Glucose 95 mg/dL (74-106); Potassium 4.1 mmol/L (3.5-5.1); Sodium 139 mmol/L (136-145); Total Protein 7.4 g/dL (6.4-8.2)
[2023-11-26 07:24] LABS: Creatine Kinase 2458 U/L (39-308)
--- NOTE | 2023-11-26 08:34 | PDOC.CMIN ---
Date of service: 11/26/23 Time of Service: 08:34 Care Management Initial Assmt Initial Assessment REASON FOR HOSPITALIZATION:: Rhabdomyolysis, Restlessness and agitation, Acute dehydration, Leukocytosis PREVIOUS FUNCTIONAL STATUS/SOCIAL/FAMILY SUPPORTS:: Marcos live in [place] with his significant other Dayanara. He is independent at baseline, drives and denies any community concerns. CURRENT FUNCTIONAL STATUS:: Marcos was lying in bed visiting with Dayanara when CM met with him. Conversation was limited by patients willingness to share information. Marcos is not interested in discussing recovery resources. ADVANCE DIRECTIVES:: None Has patient been provided with info about the portal/API?: Yes Did the patient sign up for the portal?: No CODE STATUS:: Full Code INSURANCE COVERAGE / FINANCIAL ISSUES:: Medicaid CURRENT HOME/COMMUNITY SERVICES/EQUIPMENT:: None PRIMARY CARE PHYSICIAN:: Raffi Gunn PATIENT/FAMILY EDUCATION NEEDS:: Review discharge instructions, limitations, medications and plan to follow up with community providers and TRANSPORTATION:: via private vehicle with [facility] PLAN:: Not established, pt left AMA. PFSH All Active Problems Leukocytosis (leucocytosis) (Acute) Restlessness and agitation (Acute) Altered mental status (Acute) Acute dehydration (Acute) MADDIE (acute kidney injury) (Acute) Rhabdomyolysis (Acute) Hypokalemia (Acute) Polysubstance abuse (Chronic) Tricuspid insufficiency (Acute) Mitral regurgitation (Chronic) Dysphagia (Acute) Hepatitis C (Chronic) Chronic rhinitis (Acute) Fistula, silvia-antral (Acute) Dry tooth socket (Acute) Nasal congestion (Acute) Sinusitis (Acute) Medical History Spinal cord compression PTSD (post-traumatic stress disorder) Neuropathy History of head injury History of asthma Erectile dysfunction Bipolar disorder ADHD (attention deficit hyperactivity disorder) Arthritis Anxiety Acute type A viral hepatitis Family History Mother Substance use disorder Anxiety disorder Depression Diabetes Father Substance use disorder Depression Social History Smoking/Tobacco Use Status: Current every day Tobacco Type: cigarettes Smoking packs per day: 1 Smoking cigarettes per day: 20.0 Tobacco: How many years used: 15 Quit status: considering quitting Second Hand Exposure: No Smoking risk assessment performed?: Yes Alcohol Intake: former Drug use: Daily Substance use type: marijuana, crack/cocaine, tranquilizers, opiates, painkillers, IV drugs, methamphetamine and prescription drug Details: uses fentanyl, 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 Pets and animals: Yes (4 Dogs, 2 Cats) Pets and animals: cat(s) and dog(s) Sexually active: No Do you think of yourself as: straight/heterosexual Current gender identity: male What is your relationship status?: How often do you talk on the phone with friends or family?: never How often do you get together with friends or relatives?: never Do you belong to any clubs or organized social groups?: no Panel score (0-1 are the most socially isolated patients): 0 What type of physical activity do you participate in: none Ana/Sikh: None Seatbelt use: never Helmet use: Yes Helmet use: sometimes Drive intox or ride w/intox 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
--- NOTE | 2023-11-26 08:39 | W.PM.PROGNOT ---
Date of Service Date of service: 11/26/23 Time of Service: 08:39 Assessment and Plan Assessment and plan (1) Rhabdomyolysis: Status: Acute Assessment and plan: Associated with stimulant abuse. MADDIE improving with hydration, which is reassuring. Following CPK Continue IV and oral hydration. Qualifiers: Rhabdomyolysis type: non-traumatic Qualified Code(s): M62.82 - Rhabdomyolysis (2) MADDIE (acute kidney injury): Status: Acute Assessment and plan: Much improved with hydration as above. Continue with IV hydration as he has no significant cardiac history and I don't see signs of fluid overload. (3) Polysubstance abuse: Status: Chronic Assessment and plan: Still some symtpoms of withdrawal, mulitple stimulants in his system, also presumed Xylazine and fentanyl Could offer central alpha agonists for comfort, clonidine or tizanadine, may help muscle tension. This is his the root medical condition that we will try to address if he is willing. I will offer MOUD with buprenorpine or referral to methadone upon discharge. Engaging with mental health treatment for h/o Bipolar/PTSD would also help Will get HIV screen, repeat RPR given penile patch, he is candidate for HIV PrEP if he desires. Would repeat HBV screen if he wants this (natural immunity on 07/10 labs) (4) Hypokalemia: Status: Acute Assessment and plan: resolved Subjective Subjective Patient reports: denies diarrhea, nausea, shortness of breath or fever Interval history since last seen: waking up this morning, asked for water, went back to sleep. During exam, arouses and asks for food and water. He denies focal pain, endorses feeling achy. Exam Narrative Exam Narrative: General: Patient sleeping, but awakens and is appropriately responsive, still having total body jerking movements in arms when awakened. HEENT: Normocephalic. Scatttered small (<2cm) scabbed excoriations. No icterus, MMM. Lungs: CTAB with normal effort Heart: Regular rate and rhythm with no murmurs gallops appreciated. Abdomen: Soft, NT Genitalia/rectal: ~1.5cm hyperpigmented patch left shaft, no open sores or vescicles. Extremities are without clubbing, cyanosis. trace edema in feet. Good capillary refill and peripheral pulses intact. Skin: warm, shallow lacerations/excoriations as above. no rashes or abscesses. Neuro: Cranial nerves II through XII appear to be grossly intact, no focalizing motor deficits. Diffuse increased tone with unorganized body jerking movements when awake. No resting tremor. Psych: irritable, but not aggressive with me this morning Objective Last Vital Signs Temp 37.1 C 11/26/23 01:30 Pulse 79 11/26/23 06:01 Resp 10 L 11/26/23 06:01 BP 125/63 11/26/23 06:01 Pulse Ox 95 11/26/23 06:01 Laboratory Results - last 24 hr 11/25/23 11/26/23 11/26/23 21:10 01:40 05:47 WBC 15.16 H 14.11 H RBC 3.96 L 3.73 L Hgb 11.6 L 10.7 L Hct 34.0 L 31.9 L MCV 86 86 MCH 29.3 28.7 MCHC 34.1 33.5 RDW 14.1 14.6 H Plt Count 318 259 MPV 9.3 10.2 Immature Gran % 0.9 Neutrophils % 88.1 Lymphocytes % 4.7 Monocytes % 5.9 Eosinophils % 0.1 Basophils % 0.3 Nucleated RBC % 0.0 Absolute Neutrophils 13.36 H Absolute Lymphocytes 0.71 L Absolute Monocytes 0.89 H Absolute Eosinophils 0.02 Absolute Basophils 0.05 PT 11.1 INR 1.1 Sodium 136 139 Potassium 3.0 L 4.1 D Chloride 97 L 106 Carbon Dioxide 15.8 L 21.0 Anion Gap 23.2 H 12.0 H BUN 53 H 38 H Creatinine 2.2 H 1.2 D Est GFR (CKD-EPI 2020) 37.18 76.95 Glucose 149 H 95 Calcium 9.2 8.3 L Magnesium 2.5 H Total Bilirubin 1.8 H 0.9 AST 316 H 304 H ALT 190 H 173 H Alkaline Phosphatase 105 94 Creatine Kinase 3932 H 2458 H Total Protein 8.9 H 7.4 Albumin 4.1 3.3 L Urine Opiates Screen Negative Urine Methadone Screen Negative Ur Barbiturates Screen Negative Ur Tricyclics Screen Negative Ur Amphetamines Screen Positive A U Benzodiazepines Scrn Positive A Urine Cocaine Screen Positive A Ur THC Screen Negative Time Spent with Patient Time Spent with Patient: 35-49 minutes Time was spent: preparing to see the patient(eg.review tests), obtaining and/or reviewing separately otained hiistory, ordering medications,tests, procedures, referring, communicating with other health healthcare corporate account director and indepentently interpreting results
--- NOTE | 2023-11-26 12:03 | PDOC.CMDIS ---
Date of service: 11/26/23 Time of Service: 12:03 LACE Index Scoring Tool Questions: Length of Stay (in days): 1 Was the patient admitted via the E.D.?: Yes E.D. Visits: 1 Answers: Total Score: 5 Risk of Readmission: Low Risk Care Management Discharge Plan Reason for Hospitalization: Rhabdomyolysis, Restlessness and agitation, Acute dehydration, Leukocytosis Discharge Plan: Marcos left AMA from the ICU. He left with his S/O Dayanara. SDOH Health Related Social Needs: Health related social needs personal safety Health related social needs details [facility] in June. Health related social needs details: [facility] in June. Referrals and interventions: GF believes he is suicidal.
--- NOTE | 2023-11-26 14:14 | W.PM.DS.N ---
Date of service: 11/26/23 Time of Service: 14:14 DS: Diagnosis Discharge Diagnosis (1) Rhabdomyolysis: Status: Acute (2) MADDIE (acute kidney injury): Status: Acute (3) Polysubstance abuse: Status: Chronic (4) Hypokalemia: Status: Acute Asessment and Plan: resolved Discharge Plan Disposition Patient Disposition: Against Medical Advice Condition: Poor Discharge Details Reason For Visit: Rhabdomyolysis with Acute Necrotic Intoxication Admit Date/Time: 11/25/23 23:59 Admit Provider: Augustus Hampton Attending Provider: Augustus Hampton [facility] Hospital Course: Admitted after being found down intoxicated and with acute kidney injury and rhabdomyolysis with Cr 2.2 and CPK 3932. Amphetamine, benzos, and cocaine positive, fentanyl levels not done. He was sedated and twitching. He left AMA shortly after waking up in the morning. He was taking oral fluids. CPK to 2458 and Cr to 1.2 after IV and oral hydration. Home Meds and New Rx's Prescriptions: No Action gabapentin 300 mg capsule 300 mg PO TID Qty: 270 3RF sildenafil (pulm.hypertension) 20 mg tablet 20 mg PO DAILY PRN (Reason: sexual activity) Qty: 30 6RF buprenorphine-naloxone [Suboxone] 12-3 mg film 2 film buccal Q24H Rx Instructions: place 1 strip/tab under (each) side of tongue furosemide 20 mg tablet Patient Comments: TAKE ONE-HALF TABLET BY MOUTH EVERY DAY FOR 30 DAYS Discharge Instructions Additional Instructions: unable to give instructions Activity:: Activity as Tolerated Equipment/Supplies:: No Equipment Needed Diet:: As Tolerated Discharge Orders Discharge Orders: Discharge Order (Routine); Ordered 11/26/23 Ordered By: Maikel Daley Discharge Data Discharge Date/Time-TO BE ENTERED AT DEPARTURE: 11/26/23 11:25 Discharge Comment: left AMA with girlfriend, MD Daley aware DS: Summary Time Spent with Patient providing and/or coordinating discharge services: Greater than 30 minutes Status at Discharge Functional status at discharge: independent ambulation Overall status at discharge: patient is not back to baseline Mental Status: mental status grossly normal Speech and Movement: speech and movement normal and other (jerking movements of the arms) Mood: irritable mood Affect: irritable affect Quality:SDOH Health Related Social Needs: Health related social needs personal safety Health related social needs details [place] in June. Health related social needs details: [place] in June. Referrals and interventions: GF believes he is suicidal. Exam Narrative Exam Narrative: General: Patient sleeping, but awakens and is appropriately responsive, still having total body jerking movements in arms when awakened. HEENT: Normocephalic. Scatttered small (<2cm) scabbed excoriations. No icterus, MMM. Lungs: CTAB with normal effort Heart: Regular rate and rhythm with no murmurs gallops appreciated. Abdomen: Soft, NT Genitalia/rectal: ~1.5cm hyperpigmented patch left shaft, no open sores or vescicles. Extremities are without clubbing, cyanosis. trace edema in feet. Good capillary refill and peripheral pulses intact. Skin: warm, shallow lacerations/excoriations as above. no rashes or abscesses. Neuro: Cranial nerves II through XII appear to be grossly intact, no focalizing motor deficits. Diffuse increased tone with unorganized body jerking movements when awake. No resting tremor. Psych: irritable, but not aggressive with me this morning Psych Mental Status: mental status grossly normal Speech and Movement: speech and movement normal and other (jerking movements of the arms) Mood: irritable mood Affect: irritable affect DS: Data Vitals/I&O Vitals and I&O: Vital Signs Temperature 37.2 C 11/26/23 08:01 Temperature Source Temporal Artery Scan 11/26/23 01:30 Pulse 79 11/26/23 10:01 Pulse 84 11/26/23 11:00 Respiratory Rate 16 11/26/23 11:00 Respiratory Effort Normal, Non-Labored 11/26/23 09:19 Respiratory Depth Normal 11/26/23 09:19 Respiratory Pattern Normal 11/26/23 09:19 Blood Pressure 128/69 11/26/23 10:01 Blood Pressure Mean 84 11/26/23 10:01 Pulse Oximetry 95 11/26/23 11:00 Respiratory End-tidal CO2 31 11/26/23 01:07 Oxygen Delivery Method Room Air 11/26/23 09:19 Oxygen Flow Rate 0 11/26/23 09:19 Intake & Output 11/25/23 11/26/23 11/26/23 23:59 11:59 23:59 Intake Total 3664.167 / 3664.167 Output Total 1924 / 192 Balance 1739.167 / 1739.167 Weight 78.7 kg 80.1 kg Intake: IV 3304.167 / 3304.167 Oral 360 / 360 Output: Urine 1924 / 1924 Other: Urine Color Yellow Urine Appearance Clear Comment catheter discontinued due to pt leaving the hospital AMA Data Completed and Pending Labs on day of discharge: Labs from last 24 hours 11/26/23 11/26/23 11/26/23 Unknown 23:35 17:35 WBC RBC Hgb Hct MCV MCH MCHC RDW Plt Count MPV Immature Gran % Neutrophils % Lymphocytes % Monocytes % Eosinophils % Basophils % Nucleated RBC % Absolute Neutrophils Absolute Lymphocytes Absolute Monocytes Absolute Eosinophils Absolute Basophils PT INR Sodium Potassium Chloride Carbon Dioxide Anion Gap BUN Creatinine Est GFR (CKD-EPI 2020) Glucose Calcium Magnesium Total Bilirubin AST ALT Alkaline Phosphatase Creatine Kinase Cancelled Cancelled Total Protein Albumin Urine Opiates Screen Urine Methadone Screen Ur Barbiturates Screen Ur Tricyclics Screen Ur Amphetamines Screen U Benzodiazepines Scrn Urine Cocaine Screen Ur THC Screen Syphilis Serology HIV 1&2 Ag/Ab, 4th Gen Cancelled 11/26/23 11/26/23 11/26/23 11:35 08:38 05:47 WBC 14.11 H RBC 3.73 L Hgb 10.7 L Hct 31.9 L MCV 86 MCH 28.7 MCHC 33.5 RDW 14.6 H Plt Count 259 MPV 10.2 Immature Gran % Neutrophils % Lymphocytes % Monocytes % Eosinophils % Basophils % Nucleated RBC % Absolute Neutrophils Absolute Lymphocytes Absolute Monocytes Absolute Eosinophils Absolute Basophils PT 11.1 INR 1.1 Sodium 139 Potassium 4.1 D Chloride 106 Carbon Dioxide 21.0 Anion Gap 12.0 H BUN 38 H Creatinine 1.2 D Est GFR (CKD-EPI 2020) 76.95 Glucose 95 Calcium 8.3 L Magnesium Total Bilirubin 0.9 AST 304 H ALT 173 H Alkaline Phosphatase 94 Creatine Kinase Cancelled 2458 H Total Protein 7.4 Albumin 3.3 L Urine Opiates Screen Urine Methadone Screen Ur Barbiturates Screen Ur Tricyclics Screen Ur Amphetamines Screen U Benzodiazepines Scrn Urine Cocaine Screen Ur THC Screen Syphilis Serology Cancelled HIV 1&2 Ag/Ab, 4th Gen 11/26/23 11/25/23 01:40 21:10 WBC 15.16 H RBC 3.96 L Hgb 11.6 L Hct 34.0 L MCV 86 MCH 29.3 MCHC 34.1 RDW 14.1 Plt Count 318 MPV 9.3 Immature Gran % 0.9 Neutrophils % 88.1 Lymphocytes % 4.7 Monocytes % 5.9 Eosinophils % 0.1 Basophils % 0.3 Nucleated RBC % 0.0 Absolute Neutrophils 13.36 H Absolute Lymphocytes 0.71 L Absolute Monocytes 0.89 H Absolute Eosinophils 0.02 Absolute Basophils 0.05 PT INR Sodium 136 Potassium 3.0 L Chloride 97 L Carbon Dioxide 15.8 L Anion Gap 23.2 H BUN 53 H Creatinine 2.2 H Est GFR (CKD-EPI 2020) 37.18 Glucose 149 H Calcium 9.2 Magnesium 2.5 H Total Bilirubin 1.8 H AST 316 H ALT 190 H Alkaline Phosphatase 105 Creatine Kinase 3932 H Total Protein 8.9 H Albumin 4.1 Urine Opiates Screen Negative Urine Methadone Screen Negative Ur Barbiturates Screen Negative Ur Tricyclics Screen Negative Ur Amphetamines Screen Positive A U Benzodiazepines Scrn Positive A Urine Cocaine Screen Positive A Ur THC Screen Negative Syphilis Serology HIV 1&2 Ag/Ab, 4th Gen PFSH All Active Problems (Updated 11/26/23 @ 14:14 by Maikel Daley) Leukocytosis (leucocytosis) (Acute) Restlessness and agitation (Acute) Altered mental status (Acute) Acute dehydration (Acute) MADDIE (acute kidney injury) (Acute) Rhabdomyolysis (Acute) Hypokalemia (Acute) Polysubstance abuse (Chronic) Tricuspid insufficiency (Acute) Mitral regurgitation (Chronic) Dysphagia (Acute) Hepatitis C (Chronic) Chronic rhinitis (Acute) Fistula, silvia-antral (Acute) Dry tooth socket (Acute) Nasal congestion (Acute) Sinusitis (Acute) Medical History Spinal cord compression PTSD (post-traumatic stress disorder) Neuropathy History of head injury History of asthma Erectile dysfunction Bipolar disorder ADHD (attention deficit hyperactivity disorder) Arthritis Anxiety Acute type A viral hepatitis Family History Mother Substance use disorder Anxiety disorder Depression Diabetes Father Substance use disorder Depression Social History Smoking/Tobacco Use Status: Current every day Tobacco Type: cigarettes Smoking packs per day: 1 Smoking cigarettes per day: 20.0 Tobacco: How many years used: 15 Quit status: considering quitting Second Hand Exposure: No Smoking risk assessment performed?: Yes Alcohol Intake: former Drug use: Daily Substance use type: marijuana, crack/cocaine, tranquilizers, opiates, painkillers, IV drugs, methamphetamine and prescription drug Details: uses fentanyl, 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 Pets and animals: Yes (4 Dogs, 2 Cats) Pets and animals: cat(s) and dog(s) Sexually active: No Do you think of yourself as: straight/heterosexual Current gender identity: male What is your relationship status?: How often do you talk on the phone with friends or family?: never How often do you get together with friends or relatives?: never Do you belong to any clubs or organized social groups?: no Panel score (0-1 are the most socially isolated patients): 0 What type of physical activity do you participate in: none Ana/Congregational: None Seatbelt use: never Helmet use: Yes Helmet use: sometimes Drive intox or ride w/intox peg driver: No Do you feel safe at home: Yes Do you feel safe in your relationship?: Yes Time Spent with Patient Time Spent with Patient: <45 minutes Time was spent: preparing to see the patient(eg.review tests), obtaining and/or reviewing separately otained hiistory, ordering medications,tests, procedures, referring, communicating with other health day care assistant, indepentently interpreting results and care coordination
== END 2023-11-26 11:25 | disposition left against medical advice (07) | DRG 683 ==
LOC: ER 11-26 00:35 → ICU 11-26 00:55
PROVIDERS: Admitting Provider Family Medicine; Emergency Provider Emergency Medicine; PCP Family Medicine; Visit Provider Family Medicine
DX: N17.9 Acute kidney failure, unspecified (principal); F19.139 Other psychoactive substance abuse with withdrawal, unspecified; M62.82 Rhabdomyolysis; T43.501A Poisoning by unspecified antipsychotics and neuroleptics, accidental (unintentional), initial encounter; G25.79 Other drug induced movement disorders; S01.81XA Laceration without foreign body of other part of head, initial encounter; F15.10 Other stimulant abuse, uncomplicated; E86.0 Dehydration; R45.1 Restlessness and agitation; E87.6 Hypokalemia; D72.828 Other elevated white blood cell count; G62.9 Polyneuropathy, unspecified; F43.10 Post-traumatic stress disorder, unspecified; B18.2 Chronic viral hepatitis C; R41.82 Altered mental status, unspecified; I08.1 Rheumatic disorders of both mitral and tricuspid valves; R13.10 Dysphagia, unspecified; W19.XXXA Unspecified fall, initial encounter; F17.210 Nicotine dependence, cigarettes, uncomplicated
CPT/HCPCS: 00123; 36415; 80053; 80307; 82550; 85027; 93005; 96360; 96361; 99285; 70450; 83735; 85025; 85610; 86592; 93010; 99223; 99238; J3480

== ENCOUNTER 2023-12-25 22:54 | Inpatient (IN) | payer MEDICAID, SELFPAY ==
[2023-12-25] VITALS (8 sets, daily range): BP systolic 121–129; BP diastolic 67–81; PULSE 86–93; RESP 13–15; TEMP 37.3; O2SAT 95–100
--- NOTE | 2023-12-25 22:45 | RT.EKG_ITS ---
APPROVED REPORT Exam: Resting ECG Reason for Exam: sob Patient Location: E HR:93 bpm ECG Measurements Heart Rate 93 AXIS RI 122 P 67 QRSd 101 QRS 69 QT 380 T 46 QTc 472 Conclusion Sinus rhythm...normal P axis, V-rate 60- 99 Physician: no stemi
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
[2023-12-25 23:08] LABS: BE (Venous) -15 mmol/L (-2-3); HCO3 (Venous) 13 mmol/L (23-28); O2 Sat (Venous) 98 %; TCO2 (Venous) 12 mmol/L (24-29); pCO2 (Venous) 29 mmHg (41-51); pH (Venous) 7.25 (7.31-7.41); pO2 (Venous) 112 mmHg
[2023-12-25 23:11] LABS: Abs Immature Grans 0.16 10^3/uL (0.0-0.06); Absolute Eosinophil Count 0.17 10^3/uL (0.0-0.7); HCT 34.9 % (40.0-50.0); Lactate 13.6 mmol/L (0.6-1.4); MCH 28.8 pg (27.0-33.0); MCHC 31.5 % (32.0-36.0); MCV 91 fL (80-95); MPV 9.6 fL (8.0-11.0); Platelet Count 391 10^3/uL (130-400); RBC 3.82 10^6/uL (4.36-5.78); RDW 15.1 % (11.8-14.1); RDW-SD 50.3 fL; WBC 17.32 10^3/uL (4.4-10.8)
[2023-12-25] MEDS: Omnipaque 350 MG/ML 100 ML BTL IJ (23:12)
[2023-12-25] MEDS: Normal Saline - Diluent 50 ML VIAL IJ (23:13)
--- NOTE | 2023-12-25 23:15 | ED.GENADUL_ITS ---
Discharge Plan Disposition Patient Disposition: Admit to [facility] Condition: Serious Discharge Details Chief Complaint: AMS/LOC Clinical Impression: Rhabdomyolysis, Aspiration pneumonia, Illicit drug use, Altered mental status, Laceration of scalp, Dehydration, Metabolic acidosis, Hyperammonemia, Agitation Primary Care Provider: Raffi Merida ED Provider: Marcos Hayden Home Meds and New Rx's Prescriptions: No Action gabapentin 300 mg capsule 300 mg PO TID Qty: 270 3RF sildenafil (pulm.hypertension) 20 mg tablet 20 mg PO DAILY PRN (Reason: sexual activity) Qty: 30 6RF buprenorphine-naloxone [Suboxone] 12-3 mg film 2 film buccal Q24H Rx Instructions: place 1 strip/tab under (each) side of tongue furosemide 20 mg tablet Patient Comments: TAKE ONE-HALF TABLET BY MOUTH EVERY DAY FOR 30 DAYS HPI General Date/Time Provider Initiated Documentation: 12/25/23 23:15 . 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 EMS was called for a altered combative male. On the scene the patient was down into [address] [address] [employer] hitting his head on rocks and acting quite nonsensically. Patient was able to follow commands though, and voluntarily excepted 400 of ketamine and 2.5 of Versed by EMS. After this was administered he was able to lie still and be transported to [facility]. Glucose was normal. Vital signs stable. Aside for scrapes and small cuts on his scalp, and being covered in dirt and feces, EMS did not mention any other acute complaints. Patient is unable to provide any additional history as he is currently sedated on ketamine. Related Data Home Medications Medication Instructions Recorded Confirmed buprenorphine 12 mg-naloxone 3 mg 2 film buccal Q24H 08/30/23 11/25/23 sublingual film (Suboxone) gabapentin 300 mg capsule 300 mg PO TID #270 caps 11/22/23 11/25/23 sildenafil (pulm.hypertension) 20 20 mg PO DAILY PRN sexual activity 11/22/23 11/25/23 mg tablet #30 tabs furosemide 20 mg tablet mg 11/25/23 Previous Rx's Medication Instructions Recorded gabapentin 300 mg capsule 300 mg PO TID #270 caps 11/22/23 sildenafil (pulm.hypertension) 20 20 mg PO DAILY PRN sexual activity 11/22/23 mg tablet #30 tabs Allergies Allergy/AdvReac Type Severity Reaction Status Date / Time No Known Allergies Allergy Unverified 11/25/23 21:37 General Stated Complaint: AMS/LOC JOJO: 2 Review of Systems All systems reviewed & are unremarkable except as noted in HPI and below Exam Narrative Exam Narrative: 1.Const: Covered in dirt and feces. Multiple abrasions and plant matter all over him. 2.Eyes: PERRL, no conjunctival injection, and symmetrical lids. Pupils are pinpoint. There is no evidence of raccoon eyes, ritter sign, CSF rhinorrhea, mastoid tenderness, cranial crepitus, exophthalmos, or hyphema. Patient demonstrates notably poor but otherwise intact dentition with no signs of acute tooth avulsion or acute fracture, no signs of jaw deformity, no evidence of a LeFort's fracture, with an intact palate, nose and orbital region. There is no evidence of a nasal septal hematoma. No proptosis. Jaw closes symmetrically. Airway is clear. 3.ENT: Atraumatic external nose and ears. Moist MM. Neck: Symmetric, trachea midline, No thyromegaly. 4.CVS: Regular rate and rhythm, Normal s1 and s2. No murmurs, carotid bruits, rubs, or gallops. Radial pulses 2+ bilaterally and symmetric. Dorsalis pedis pulses 2+ bilaterally and symmetric. 2+ capillary refill. No evidence of distant heart sounds. No extremity edema. No evidence of gross hemorrhage. 5.RESP: Airway clear, no obstructions. No abrasions or ecchymosis. Chest movement symmetric with respirations. No chest wall tenderness. Trachea midline. No crepitus. No step offs. No paradoxical movements. Lungs are clear to auscultation bilaterally. No rales, rhonchi, wheezing or stridor. Breath sound symmetric. No Sucking chest wounds. No clinical evidence of significant chest trauma. 6.GI: Soft, nondistended, nontender. Bowel tones normoactive. No masses or organomegaly. No ecchymosis or abrasions. No periumbilical ecchymosis or seatbelt sign. No flank or CVA tenderness. No clinical signs of significant trauma. Genital Exam: Intact and traumatically unremarkable genital and rectal exam with no significant bruising, blood, or deformity. Rectal tone normal, stool without gross blood. No clinical evidence of significant abdominal trauma. 7.MSK: No gross deformities or discolorations or lesions. Tolerates full range of motion of extremities without tenderness. All compartments of upper and lower extremities are soft with no tenderness. Vascular exam demonstrates brisk capillary refill and intact pulses in all extremities. Pelvic exam demonstrates a stable pelvis, nontender to lateral compression and palpation of symphysis pubis.. No clinical evidence of significant musculoskeletal trauma. 8.Skin: Multiple abrasions over the arms hands and feet and scalp. Small contusions noted on the scalp. No active bleeding or hemorrhage though. Patient is absolutely covered with feces, dirt, and plant matter. 9.Neuro: GCS is currently 10, notably sedated on ketamine that was administered prior to arrival. Spontaneously moves all extremities. 10.Psych: (AAO) x0. Currently notably sedated on ketamine. Course Vital Signs Vital signs: Vital Signs Temperature 37.3 C 12/25/23 22:52 Pulse 93 H 12/25/23 22:52 Respiratory Rate 14 12/25/23 22:52 Pulse Oximetry 95 12/25/23 22:52 Temperature 37.3 C 12/25/23 22:52 Pulse 93 H 12/25/23 22:52 Respiratory Rate 14 12/25/23 22:52 Pulse Oximetry 95 12/25/23 22:52 Oxygen Delivery Method Room Air 12/25/23 22:52 Oxygen Flow Rate 0 12/25/23 22:52 Lab/Test Results Lab/Test Results: Laboratory Tests Range/Units 12/25/23 10:59 VBG pH (7.31-7.41) 7.25 L VBG pCO2 (41-51) mmHg 29 L VBG pO2 mmHg 112 VBG HCO3 (23-28) mmol/L 13 L VBG Total CO2 (24-29) mmol/L 12 L VBG O2 Saturation % 98 VBG Base Excess (-2-3) mmol/L -15 L VBG Lactate (0.6-1.4) mmol/L 13.6 H* Procedures Laceration Laceration 1: Site: scalp Size (cm): 7 Description: linear Depth: simple, single layer Pre-repair: wound explored, irrigated extensively and deep structures intact Skin layer closed with: other (David) Number of sutures: 10 Medical Decision Making 43-year-old male with a past medical history of hepatitis C, IV drug use often choosing cocaine and xylazine, 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 EMS was called for a altered combative male. On the scene the patient was down into [address] [employer] hitting his head on rocks and acting quite nonsensically. Patient was able to follow commands though, and voluntarily excepted 400 of ketamine and 2.5 of Versed by EMS. After this was administered he was able to lie still and be transported to [facility]. Glucose was normal. Vital signs stable. Aside for scrapes and small cuts on his scalp, and being covered in dirt and feces, EMS did not mention any other acute complaints. Patient is unable to provide any additional history as he is currently sedated on ketamine. Exam demonstrates a male, covered in dirt and feces, abrasions over the scalp. Notable plant matter all over him. Rectal tone is normal. Pupils are pinpoint. He is currently notably sedated on ketamine, but hemodynamically stable. Concern for psychosis, delirium, severe agitation, polysubstance abuse, rhabdomy olysis, or infectious etiology. Patient remains in c-collar/C-spine precautions. We will evaluate for concerning etiologies get a CT scan of the head neck chest abdomen pelvis. Will evaluate for polysubstance components rhabdomyolysis and other etiologies. Will start with a liter of lactated Ringer's, will monitor closely and reassess. 2 AM Patient had been doing very well, he had been resting comfortably. Laboratory workup returned and showed evidence of rhabdomyolysis, mild metabolic acidosis, elevated white count, lactate of 13, which all correlated well with his rhabdo and agitated and delirious state. He had been rehydrated with 2 L of lactated ringer and CT imaging had returned unremarkable of the head neck. He did have evidence of a 3 x 4 x 4 well-defined opacity in the right chest wall, concerning for pneumonia contusion or potential aspiration. Jackson Zosyn and doxycycline were started. Renal function was slightly elevated at 1.7 for his creatinine, however he was making good urine which was T in color. Troponin was normal. Ammonia was slightly elevated at 61. Mild transaminitis which was actually improved from his baseline. Procalcitonin 0.3. Patient was being cleaned by nursing staff when suddenly he had an immediate transition from resting comfortably to severe aggression. He kicked the nurses away, ripped his IVs out, and started Snarling, screaming and flailing/thrashing about. At the sound of screams I immediately came over to the room and before me was the patient actively hissing and snarling, the 2 IV bags had their bottoms ripped out and were actively pouring all over the floor and the patient. He was spinning himself like a crocodile and wrapping all of the cords and tubes around him. He then launched himself out of the bed onto the floor. He began kicking and flailing about, he knocked over and broke the Finley stand pouring the soap water all over himself and the floor. He then began flailing kicking and hitting his head again and began bleeding from his occiput region where his previous small lacerations have been. While screaming and hissing he then turned to his left lateral side and shot feces out all over the floor and the wall here. Despite being wrapped in multiple cords, there were no cords obstructing his breathing. C-collar was still on and in place thankfully. Eventually utilizing 8 personnel we were able to hold onto the thrashing patient, and administer 200 mg of IM ketamine. This led to no significant sedation, and an additional 20 mg of IM etomidate was administered. This led to moderate sedation. Patient was then brought up onto the stretcher, C-spine precautions were maintained. The cords that were wrapped around him were cut, and the monitor was placed back on. Of note he had ripped out the previous wall-mounted monitor box and broke it. The decision was made to intubate for his safety and to provide enhanced sedation. He still had his left AC IV in. Patient began coming out of his sedated state, and we prepped for intubation. We went to push the sedative/paralytic through the left IV and it became clear that that IV had also become dislodged. 6 individuals were then required to hold the patient down again as he began thrashing and hissing about in the bed once more. The decision was made to give IM succinylcholine secondary to the scenario. IM suc was given, and the patient was rapidly intubated without complication. However during this process he became extremely bradycardic down to a rate of 5 or 6 bpm. CPR was immediately started, and he quickly came back to a normal heart rate in about 15 to 20 seconds while atropine/epinephrine were being drawn. No atropine or epinephrine was actually needed or given. IO was drilled during this time for access. Additionally 2 more IVs were placed shortly thereafter. Sedation was maintained with propofol at 80 mics per kilogram per minute, and a Versed drip at 0.1 was also started. Need for repeat imaging was decided secondary to him striking his head again. Evaluation of the scalp now demonstrates a T shaped laceration that is 7 cm wide, 3 cm long, without any active hemorrhage. Repeat CT scan was performed and shows no acute intracranial etiology for the head brain or C-spine. C-collar was removed. Patient remains sedated at this time. Vital signs remained stable. Patient will be admitted to the ICU for further management. Discussed the case with hospitalist , he agrees with the assessment and plan. I have extensively reviewed the treatment plan with the patient. I have addressed all patient concerns at this time. I have also discussed the plan with the admitting physician and they agree with the current assessment and plan and have agreed to assume responsibility for the patient. All parties demonstrate verbal understanding and agreement with our assessment and plan at this time. The documentation in this chart was dictated using Verical dictation software. Please excuse any dictation errors. FINDINGS: Brain: Normal. No hemorrhage or edema. Cerebral ventricles: No ventriculomegaly. Paranasal sinuses: Visualized sinuses are unremarkable. No fluid levels. Mastoid air cells: Unremarkable. Bones: Unremarkable. No acute fracture. Soft tissues: Unremarkable. IMPRESSION: No acute intracranial abnormality. FINDINGS: Orbital cavities: Orbits are normal. Globes are unremarkable. Paranasal sinuses: Normal. No air-fluid levels. Dental: Multifocal periapical dental lucencies. Bones: No fracture. Soft tissues: Unremarkable. IMPRESSION: No fracture. Bones: Multilevel central canal stenosis and neural foraminal narrowing secondary to degenerative change. No fracture. Trachea: Small incidental tracheal diverticulum. Lungs: Lung apices are normal. Soft tissues: Unremarkable. Other findings: Study limited by motion. IMPRESSION: No fracture. Thank you for allowing us to participate in the care of your patient. Dictated and Authenticated by: Live Huerta MD 12/26/2023 12:32 AM Eastern Time ([place] & [place]) FINDINGS: Thyroid: Normal-sized thyroid gland. Lungs: 3.0 cm x 4.3 cm x 4.6 cm region of hazy well-defined opacity subjacent to the right anterior chest wall. No pulmonary laceration. Mild dependent atelectasis. Pleural spaces: No pleural effusion or pneumothorax. Heart: Normal-sized heart. Lymph nodes: Calcified lymph nodes at the right pulmonary hilum in keeping with a prior granulomatous infection. Vasculature: No thoracic aortic aneurysm or dissection. Exam not tailored to evaluate the pulmonary arterial vasculature. Within the limits of the exam, no large central pulmonary embolism demonstrated in the pulmonary trunk or main pulmonary arteries Bones/joints: No acute fracture seen among the bones of the chest. Soft tissues: No gross soft tissue mass or fluid collection seen in the chest wall. IMPRESSION: 1. 3.0 cm x 4.3 cm x 4.6 cm region of hazy well-defined opacity subjacent to the right anterior chest wall. Pulmonary contusion is suggested in the setting of trauma. A region of acute pulmonary infection could have a similar appearance. Clinical correlation is recommended. 2. New acute fracture seen among the bones of the chest. Stomach and bowel: No oral contrast. Stomach moderately distended with fluid and ingested material. No small bowel dilatation to suggest obstruction. Moderate retained fecal material in the colon. No evidence of diverticulitis or colitis. Rectum moderately distended with fecal material and gas. Appendix: Appendix not identified, obscured if present. Correlation with surgical history recommended. Intraperitoneal space: No gross ascites or free air. Vasculature: Normal caliber abdominal aorta. Lymph nodes: No pathologically enlarged mesenteric, retroperitoneal, or pelvic sidewall lymph nodes. Urinary bladder: Normal appearing urinary bladder. Reproductive: Normal-appearing prostate gland and seminal vesicles. Bones/joints: No acute fracture seen among the bones of the abdomen or pelvis. Prominent discogenic degeneration at L1-L2. Limbus vertebral body at L3. Soft tissues: No significant ventral or inguinal hernia. IMPRESSION: No acute visceral or bony injury seen in the abdomen or pelvis. Thank you for allowing us to participate in the care of your patient. Dictated and Authenticated by: Donato Márquez MD 12/26/2023 12:56 AM Eastern Time ([place] & [place]) FINDINGS: Tubes, catheters and devices: Endotracheal catheter in-situ, terminating 7 cm above the flip. Lungs: No pulmonary consolidation is seen. Pleural spaces: No pleural effusion or pneumothorax is demonstrated. The left costophrenic angle is partially excluded from view. Heart/Mediastinum: The heart appears normal in size. Cardiac monitoring leads overlie the exam. Bones/joints: The visualized bony structures appear intact. IMPRESSION: Endotracheal catheter in-situ, terminating 7 cm above the flip. Thank you for allowing us to participate in the care of your patient. Dictated and Authenticated by: Donato Márquez MD 12/26/2023 12:57 AM Eastern Time ([place] & [place]) FINDINGS: Brain: No brain edema. No intracranial hemorrhage. Cerebral ventricles: No ventriculomegaly. Paranasal sinuses: Visualized sinuses are unremarkable. No fluid levels. Mastoid air cells: Unremarkable. Bones: Unremarkable. No acute fracture. Soft tissues: Multiple scalp contusions. IMPRESSION: No acute brain findings. FINDINGS: Bones: Multilevel central canal stenosis and neural foraminal narrowing secondary to degenerative change. No fracture. Lungs: Lung apices are normal. Soft tissues: Unremarkable. IMPRESSION: No fracture. Thank you for allowing us to participate in the care of your patient. Dictated and Authenticated by: Live Huerta MD 12/26/2023 1:41 AM Eastern Time ([place] & [place]) Quality:SDOH Health Related Social Needs: Health related social needs personal safety Health related social needs details [facility]. Critical Care Time Critical Care Time Critical Care Time: Yes Total Critical Care Time: 100 Attestation: Upon my evaluation, this patient had a high probability of imminent or life- threatening deterioration, which required my direct attention, intervention, and personal management. I have personally provided 100 minutes of critical care time exclusive of time spent on separately billable procedures. Time includes review of laboratory data, radiology results, discussion with consultants, and monitoring for potential decompensation. Interventions were performed as documented. [facility] All Active Problems (Updated 12/26/23 @ 02:17 by Marcos Hayden DO) Agitation (Acute) Hyperammonemia (Acute) Metabolic acidosis (Acute) Dehydration (Acute) Laceration of scalp (Acute) Altered mental status (Acute) Illicit drug use (Acute) Aspiration pneumonia (Acute) Rhabdomyolysis (Acute) Aspiration pneumonia (Acute) Acute hypoxemic respiratory failure (Acute) Toxic encephalopathy (Acute) Leukocytosis (leucocytosis) (Acute) Rhabdomyolysis (Acute) Polysubstance abuse (Chronic) Tricuspid insufficiency (Acute) Mitral regurgitation (Chronic) Dysphagia (Acute) Hepatitis C (Chronic) Chronic rhinitis (Acute) Fistula, silvia-antral (Acute) Dry tooth socket (Acute) Nasal congestion (Acute) Sinusitis (Acute) Medical History Spinal cord compression PTSD (post-traumatic stress disorder) Neuropathy History of head injury History of asthma Erectile dysfunction Bipolar disorder ADHD (attention deficit hyperactivity disorder) Arthritis Anxiety Acute type A viral hepatitis Family History Mother Substance use disorder Anxiety disorder Depression Diabetes Father Substance use disorder Depression Social History Smoking/Tobacco Use Status: Current every day Tobacco Type: cigarettes Smoking packs per day: 1 Smoking cigarettes per day: 20.0 Tobacco: How many years used: 15 Quit status: considering quitting Second Hand Exposure: No Smoking risk assessment performed?: Yes Alcohol Intake: former Drug use: Daily Substance use type: marijuana, crack/cocaine, tranquilizers, opiates, painkillers, IV drugs, methamphetamine and prescription drug Details: uses fentanyl, 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 Pets and animals: Yes (4 Dogs, 2 Cats) Pets and animals: cat(s) and dog(s) Sexually active: No Do you think of yourself as: straight/heterosexual Current gender identity: male What is your relationship status?: How often do you talk on the phone with friends or family?: never How often do you get together with friends or relatives?: never Do you belong to any clubs or organized social groups?: no Panel score (0-1 are the most socially isolated patients): 0 What type of physical activity do you participate in: none Ana/Spiritism: None Seatbelt use: never Helmet use: Yes Helmet use: sometimes Drive intox or ride w/intox stage driver: No Do you feel safe at home: Yes Do you feel safe in your relationship?: Yes
[2023-12-25 23:24] LABS: INR 1.1 (0.9-1.1); PTT Activated 23.8 sec (23.6-32.8); Prothrombin Time 11.4 sec (9.1-11.1)
[2023-12-25 23:25] LABS: Ammonia 61 umol/L (11-32)
[2023-12-25 23:28] LABS: ETHANOL BLOOD < 3.0 mg/dL (<10)
[2023-12-25 23:30] LABS: Absolute Lymphocyte Count 3.64 10^3/uL (1.2-3.4); Absolute Monocyte Count 0.87 10^3/uL (0.1-0.8); Absolute Neutrophil Count 12.64 10^3/uL (1.2-6.7); Atypical Lymphocytes % 1 %; Diff Comment Manual Differential; RBC Morphology Normal
[2023-12-25] MEDS: Lactated Ringers 1,000 ML 1000 ML IV ×2 (23:34→23:46)
[2023-12-25 23:36] LABS: ALT 88 U/L (16-63); AST 126 U/L (15-37); Albumin 3.4 g/dL (3.4-5.0); Alkaline Phosphatase 152 U/L (46-116); Anion Gap 24.7 mmol/L (3-11); BUN 22 mg/dL (7-18); Bilirubin, Total 0.6 mg/dL (0.2-1.0); CO2 14.3 mmol/L (21.0-32.0); CREATININE 1.7 mg/dL (0.70-1.30); Calcium 8.7 mg/dL (8.5-10.1); Chloride 104 mmol/L (98-107); Estimated GFR 50.66 (mL/min/1.73m2); Glucose 100 mg/dL (74-106); Potassium 3.2 mmol/L (3.5-5.1); Sodium 143 mmol/L (136-145); TSH (W/Ref FT4) 0.97 uIU/mL (0.36-3.74); Total Protein 7.5 g/dL (6.4-8.2); Troponin I < 50 ng/L (< or =60)
[2023-12-25 23:37] LABS: Acetaminophen < 2 ug/mL (10-30); Salicylate 6.7 mg/dL (<2.8)
[2023-12-25 23:47] LABS: Magnesium 1.9 mg/dL (1.8-2.4)
[2023-12-25] MEDS: Ketamine 500 MG/5 ML VIAL 200 MG IM (23:48)
[2023-12-25 23:49] LABS: Creatine Kinase 1952 U/L (39-308)
[2023-12-25 23:50] LABS: Procalcitonin 0.3 ng/mL
[2023-12-25 23:59] LABS: Bilirubin Negative (Negative); Blood Large (Negative); Clarity Sl Cloudy (Clear); Glucose Negative (Negative); Ketones Negative (Negative); Leukocyte Esterase Negative (Negative); Nitrite Negative (Negative); Specific Gravity 1.025 (1.005-1.025); pH 5.5 (5-8)
[2023-12-26] VITALS (247 sets, daily range): BP systolic 84–206; BP diastolic 52–93; PULSE 38–134; RESP 8–20; TEMP 32.2–37.8; O2SAT 89–100
--- NOTE | 2023-12-26 | DI.CT_ITS ---
Exam(s) CT HEAD WO EXAM: CT HEAD WO CLINICAL HISTORY: unresponsive off sedation, head trauma. TECHNIQUE: Imaging Protocol: Axial computed tomography images with coronal and sagittal reformatted images were created and reviewed COMPARISON: CT CT HEAD CERV SPINE FACIAL WO from 12/25/[address] HEAD CERVICAL SPINE WO from 12/26/2023 FINDINGS: Skin scalp clips are noted over the posterior upper and right-sided scalp. Posterior scalp hematoma noted. There are no skull fractures. There is no fluid in the visualized paranasal sinuses. There is no evidence of intracranial hemorrhage, mass effect, or shift of midline structures. There are no extra-axial fluid collections. The ventricles are not enlarged or shifted and there is no blo od within the ventricular system nor within the basal cisterns. IMPRESSION: No acute intracranial findings on this noninfused CT scan of the brain. Posterior scalp findings as above. RADIATION DOSE DELIVERED: 791.37mGy.cm Total DLP DATA REPOSITORY: All CT scans at this facility are submitted to the National Radiology Data Registry (NRDR) Dose Index Registry (DIR) with the [employer] (ACR). RADIATION OPTIMIZATION: All CT scans at this facility use at least one of these dose optimization te chniques: automated exposure control; mA and/or kV adjustment per patient size (includes targeted exa ms where dose is matched to clinical indication); or iterative reconstruction.
[2023-12-26 00:03] LABS: Bacteria Few HPF (Negative); C & S Indicated? No; Casts Negative LPF (Negative); Crystals Negative HPF (Negative); Epithelial Cells Negative HPF (Negative); Mucus Negative (Negative)
[2023-12-26] MEDS: Ketamine 500 MG/5 ML VIAL 100 MG IM (00:03)
[2023-12-26] MEDS: Etomidate 20 MG/10 ML VIAL IVP (00:10)
[2023-12-26] MEDS: Rocuronium 50 MG/5 ML SYR 100 MG IVP (00:16)
[2023-12-26] MEDS: Succinylcholine 200 MG/10 ML VIAL 100 MG IVP (00:16)
[2023-12-26 00:18] LABS: *AMPHETAMINES SCREEN URINE Negative (Negative); *BARBITURATES SCREEN URINE Negative (Negative); *BENZODIAZEPINES SCREEN URINE Positive (Negative); Cannabinoids THC Negative (Negative); Cocaine Screen,Urine Positive (Negative); METHADONE URINE SCREEN Negative (Negative); OPIATES URINE SCREEN Negative (Negative)
[2023-12-26 00:19] LABS: Tricyclic Antidepressants Negative (Negative)
[2023-12-26] MEDS: PROPOFOL 1,000 MG/100 ML BTL 38.112 MG IV ×4 (00:20→10:30)
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
--- NOTE | 2023-12-26 01:19 | DI.RAD_ITS ---
Exam(s) XR PORTABLE CHEST AP EXAM: XR PORTABLE CHEST AP CLINICAL HISTORY: post intubation. TECHNIQUE: 2D digital imaging was performed. COMPARISON: CR XR CHEST 2V PA LATERAL from 01/28/2023 FINDINGS: Single AP portable view. Patient is intubated and the distal tip of the endotracheal tube is approximately 7 cm above the severiano na. Heart size is upper normal. The mediastinum is not widened. Lungs are clear. No infiltrates nor obvious pleural effusions. No pneumothorax. No pneumomediastinum. No obvious fractures. IMPRESSION: No acute pulmonary findings on this single AP portable view of the chest. Patient is intubated. DATA REPOSITORY: RADIATION DOSE DELIVERED:
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
[2023-12-26 01:23] LABS: BE -11 mmol/L (-2-3); HCO3 17 mmol/L (22-26); pCO2 43 mmHg (35-45); pH 7.21 (7.35-7.45); pO2 103 mmHg (80-105); sO2 97 % (95-98); tCO2 17 mmol/L (23-27)
[2023-12-26 01:24] LABS: FIO2 30 %; Site Right Radial
[2023-12-26] MEDS: MIDAZOLAM 50 MG in Normal Saline 90 ML 15.88 MG IV (01:33)
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
--- NOTE | 2023-12-26 02:03 | HPE_ITS ---
Date of service: 12/26/23 Time of Service: 02:03 Assessment and Plan Assessment and plan (1) Toxic encephalopathy: Status: Acute Assessment and plan: - As noted above in HPI patient became significantly agitated in the emergency department despite multiple doses of ketamine resulting and harm to emergency room staff, patient flopping himself on the floor and causing worsening of head laceration, and wrapping himself in his IVs while destroying equipment in the emergency department and patient soiling himself -Ultimately, given the significant amount of sedating medication required to maintain the patient and staff safety, decision was made for patient to be intubated -he is currently on combination of propofol and versed and should remain on these medications without down titration at least until 12/27/2023 while on critical care attending can assess and assist and appropriate weaning of sedating medications (2) Acute hypoxemic respiratory failure: Status: Acute Assessment and plan: -Secondary too multiple doses of sedating medications given for toxic encephalopathy as noted above, resulting in patient being intubated for airway protection -follow-up post-intubation VBG and adjust vent as needed -patient should remain intubated and sedated for at least the next 24-48hrs to allow cocaine and xyloxene effects to alonzo off as well as to allow for adequet treatment of aspiration pneumonia which likely occurred when patient was initially given sedating meds via EMS (3) Aspiration pneumonia: Status: Acute Assessment and plan: -as noted above -started on doxy and zosyn in the ED, will continue (4) Rhabdomyolysis: Status: Acute Assessment and plan: -with MADDIE -Secondary to polysubstance use -Follow-up repeat CK and creatinine Qualifiers: Rhabdomyolysis type: non-traumatic Qualified Code(s): M62.82 - Rhabdomyolysis (5) Polysubstance abuse: Status: Chronic Assessment and plan: -as noted above (6) PTSD (post-traumatic stress disorder): (7) Hepatitis C: Status: Chronic Qualifiers: Hepatic coma status: without hepatic coma Viral hepatitis chronicity: c hronic Qualified Code(s): B18.2 - Chronic viral hepatitis C History of Present Illness History of Present Illness Chief Complaint: AMS Narrative: 43-year-old male with past medical history of hepatitis C, history of endocarditis, rhabdomyolysis cysts, ADHD, bipolar, anxiety, PTSD and IV drug use most frequently being cocaine and xylazine who presents emergency department altered mental status. EMS was called in the field for a confused combative male that was found down in a goalie/ravine reportedly hitting his head on rocks and was acting confused. According to EMS upon their arrival the patient was able to follow commands voluntarily excepted 40 mg of ketamine 2-1/2 of Versed allowing the patient to be safely transported to [facility]. Of note, patient was noted as having multiple scrapes and cuts on his scalp and being covered in dirt and feces upon arrival. In the emergency department the patient was noted to have normal vital signs, however he was found to have significantly elevated CK suggestive of rhabdomyolysis. While in the emergency department he had initially been doing well and resting comfortably was given [address] head and neck that did not show any acute findings though did have chest imaging consistent with a right- sided pneumonia to be consistent with aspiration. Patient was given Zosyn and doxycycline. After which time it patient had abrupt change in his mental status and became severely aggressive, kicking nurses, ripping out his IV, similar laying, screaming flailing and thrashing. This resulted in IV bags being ripped open from the bottom, pointing fluid all over the floor and patient while the patient flopped himself on the floor flailing around and wrapping himself in his cords and tubes, and thrashing around so much as to have resulted and opening previously mentioned laceration on his head from which she began to bleed, all while patient was also soiling himself. He reportedly took 8 personnel to safely hold down the patient and administer 200 mg of IM ketamine which was ineffective, and was ultimately followed by 20 mg of IM etomidate. He was cut out of the cords which she had wrapped himself then, and given significant level of agitation, decision was made for patient to be intubated. As preparation for intubation was being made, patient again became significantly agitated requiring 6 people to hold him down while I am succinylcholine was administered and patient was intubated without complication. However, immediately following intubation, likely due to a combination of sedating medications and neuromuscular blockade, patient became significantly bradycardic with a rate down to about 5 or 6 bpm for which a single round of CPR was initiated and patient had ROSC within the first few compressions administered. No atropine or epinephrine was required. Patient was given an IO for access and 2 more IVs were placed. Patient was then started on combination of propofol and Versed for sedation. At which time emergency room physician patient hospice permission for patient with toxic encephalopathy and significant combativeness requiring endotracheal intubation, aspiration pneumonia, rhabdomyolysis, MADDIE all secondary to polysubstance use. Review of Systems All systems reviewed & are unremarkable except as noted in HPI and below PFSH All Active Problems (Updated 12/26/23 @ 03:58 by JOCELYNN PARR) Agitation (Acute) Hyperammonemia (Acute) Metabolic acidosis (Acute) Dehydration (Acute) Laceration of scalp (Acute) Altered mental status (Acute) Illicit drug use (Acute) Aspiration pneumonia (Acute) Rhabdomyolysis (Acute) Aspiration pneumonia (Acute) Acute hypoxemic respiratory failure (Acute) Toxic encephalopathy (Acute) Leukocytosis (leucocytosis) (Acute) Rhabdomyolysis (Acute) Polysubstance abuse (Chronic) Tricuspid insufficiency (Acute) Mitral regurgitation (Chronic) Dysphagia (Acute) Hepatitis C (Chronic) Chronic rhinitis (Acute) Fistula, silvia-antral (Acute) Dry tooth socket (Acute) Nasal congestion (Acute) Sinusitis (Acute) Medical History Spinal cord compression PTSD (post-traumatic stress disorder) Neuropathy History of head injury History of asthma Erectile dysfunction Bipolar disorder ADHD (attention deficit hyperactivity disorder) Arthritis Anxiety Acute type A viral hepatitis Family History Mother Substance use disorder Anxiety disorder Depression Diabetes Father Substance use disorder Depression Social History Smoking/Tobacco Use Status: Current every day Tobacco Type: cigarettes Smoking packs per day: 1 Smoking cigarettes per day: 20.0 Tobacco: How many years used: 15 Quit status: considering quitting Second Hand Exposure: No Smoking risk assessment performed?: Yes Alcohol Intake: former Drug use: Daily Substance use type: marijuana, crack/cocaine, tranquilizers, opiates, painkillers, IV drugs, methamphetamine and prescription drug Details: uses fentanyl, 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 Pets and animals: Yes (4 Dogs, 2 Cats) Pets and animals: cat(s) and dog(s) Sexually active: No Do you think of yourself as: straight/heterosexual Current gender identity: male What is your relationship status?: How often do you talk on the phone with friends or family?: never How often do you get together with friends or relatives?: never Do you belong to any clubs or organized social groups?: no Panel score (0-1 are the most socially isolated patients): 0 What type of physical activity do you participate in: none Ana/Episcopal: None Seatbelt use: never Helmet use: Yes Helmet use: sometimes Drive intox or ride w/intox national 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 Do you feel safe at home: Yes Do you feel safe in your relationship?: Yes Meds Allergies and Home Medications Allergies Allergy/AdvReac Type Severity Reaction Status Date / Time No Known Allergies Allergy Unverified 11/25/23 21:37 Home Medications Medication Instructions Recorded Confirmed Type buprenorphine 12 mg-naloxone 3 mg 2 film buccal Q24H 08/30/23 11/25/23 History sublingual film (Suboxone) gabapentin 300 mg capsule 300 mg PO TID #270 caps 11/22/23 11/25/23 Rx sildenafil (pulm.hypertension) 20 20 mg PO DAILY PRN sexual activity 11/22/23 11/25/23 Rx mg tablet #30 tabs furosemide 20 mg tablet mg 11/25/23 History Exam Narrative Exam Narrative: Significantly disheveled gentleman mostly covered in tattoos from his scalp down to his feet, including large specific out on his chest who is intubated and sedated does not appear to be in any acute distress, heart mild bradycardia with rate in the 50s, lungs clear to auscultation bilaterally, abdomen soft, nontender, nondistended Results Labs 12/26/23 06:21 12/26/23 05:36 Labs: Laboratory Results - last 24 hr 12/25/23 12/25/23 12/26/23 10:59 23:30 01:06 WBC 17.32 H RBC 3.82 L Hgb 11.0 L Hct 34.9 L MCV 91 MCH 28.8 MCHC 31.5 L RDW 15.1 H Plt Count 391 MPV 9.6 Immature Gran % 0.0 Neutrophils % 73.0 Lymphocytes % 20.0 Atypical Lymphs % 1 Monocytes % 5.0 Eosinophils % 1.0 Basophils % 0.0 Nucleated RBC % 0.0 Absolute Neutrophils 12.64 H Absolute Lymphocytes 3.64 H Absolute Monocytes 0.87 H Absolute Eosinophils 0.17 Absolute Basophils 0.00 RBC Morphology Normal PT 11.4 H INR 1.1 APTT 23.8 ABG Sample Site Right Radial ABG pH 7.21 L ABG pCO2 43 ABG pO2 103 ABG HCO3 17 L ABG Total CO2 17 L ABG O2 Saturation 97 ABG Base Excess -11 L VBG pH 7.25 L VBG pCO2 29 L VBG pO2 112 VBG HCO3 13 L VBG Total CO2 12 L VBG O2 Saturation 98 VBG Base Excess -15 L VBG Lactate 13.6 H* FiO2 30 Sodium 143 Potassium 3.2 L Chloride 104 Carbon Dioxide 14.3 L Anion Gap 24.7 H BUN 22 H Creatinine 1.7 H Est GFR (CKD-EPI 2020) 50.66 Glucose 100 Calcium 8.7 Magnesium 1.9 Total Bilirubin 0.6 AST 126 H ALT 88 H Alkaline Phosphatase 152 H Ammonia 61 H Creatine Kinase 1952 H Troponin I < 50 Total Protein 7.5 Albumin 3.4 Procalcitonin 0.3 TSH 0.97 Urine Color Yellow Urine Clarity Sl Cloudy Urine pH 5.5 Ur Specific [place] 1.025 Urine Protein >=300 H Urine Ketones Negative Urine Blood Large H Urine Nitrite Negative Urine Bilirubin Negative Urine Urobilinogen 1.0 H Ur Leukocyte Esterase Negative Urine RBC 3-5 H Urine WBC 3-5 Ur Epithelial Cells Negative Urine Crystals Negative Urine Bacteria Few Urine Casts Negative Urine Mucus Negative Ur Culture Indicated? No Urine Glucose Negative Salicylates 6.7 Urine Opiates Screen Negative Urine Methadone Screen Negative Acetaminophen < 2 Ur Barbiturates Screen Negative Ur Tricyclics Screen Negative Ur Amphetamines Screen Negative U Benzodiazepines Scrn Positive A Urine Cocaine Screen Positive A Ur THC Screen Negative Ethyl Alcohol < 3.0 Last Vital Signs Temp 99.2 F 12/25/23 22:52 Pulse 90 12/25/23 23:31 Resp 12 12/26/23 01:27 BP 128/81 12/26/23 01:27 Pulse Ox 98 12/26/23 01:27 Time Spent Time spent with Patient: 55-74 minutes Time was spent: preparing to see the patient(eg.review tests), obtaining and/or reviewing separately otained hiistory, ordering medications,tests, procedures, referring, communicating with other health child care coordinator, indepentently interpreting results, counseling the patient and care coordination
[2023-12-26] MEDS: DOXYCYCLINE 100 MG in Normal Saline 100 ML IVPB ×2 (02:54→14:08)
[2023-12-26 02:55] LABS: Lactate 1.7 mmol/L (0.6-1.4)
[2023-12-26] MEDS: PIPERACILLIN/TAZO 3.375 GM in Normal Saline 50 ML IVPB ×4 (02:55→20:00)
[2023-12-26 03:16] LABS: Troponin I 104 ng/L (< or =60)
--- NOTE | 2023-12-26 03:18 | NUR.NOTE ---
Pt came in via EMS for reported delirium with agitation. EMS gave 400 mg Ketamine and 2.5 Versed MATCHER OFFBEARER. Pt arrived, sedated and VSS. Labs drawn, IV access obtained, EKG. Pt changed, was soiled from feces, and was soaked. Clothes cut off, pt dried and warmed with blankets. Pt EtCO2 monitored, airway being maintained. VICE CHAIRMAN went to further clean the pt, began screaming I need help in here! Pt awoke, became extremely combative with altered mentation. No warning and was completely delirious again. Staff was unable to access pt safely. Pt climbed over the bed rail, onto the floor, IVs were ripped out, fluids all over the floor, pt began flailing around hitting furniture in the room (unaware of his surroundings). Pt was completely disoriented, stooling as he was on the floor, and smacking head off the floor. Pt became wrapped in cables, some were broken by the patient, and some needed to be cut (IV tubing, eTCO2, etc.) for pt safety. Vandana Kwan called. When able, pt was given 200 mg Ketamine IM, followed by another 100. This had little effect. This occurred at 2345 (12/25/23). Pt given 20 Mg Etomidate at 0004.. Per physician, 100 mg Rocuronium attempted to be given, but IV was lost due to patient flailing. At 0015 and 100 mg Succinocholine administered IM. Physician was able to intubate the pt at 00:18. While intubating, pt went into bradycardia and palpable pulses lost. Pt successfully intubated, but vandana hernandez called. CPR performed, IO placed in left distal femur and fluids running. ROSC attained without additional meds. Pt given propofol and fentanyl for sedation. Wilberto performed and pt brought back to CT for additional scans. Pt remained stable at this time, in NSR. Repeat labs performed. RT maintaining vent settings. Jin Allen, GORDONN, RN
--- NOTE | 2023-12-26 05:28 | W.PC.ACHO ---
Registration Status: ADM IN Primary Language: Preferred Language: ED Information & Data Chief Complaint AMS/LOC 12/26/23 02:20 Chief Complaint AMS/LOC 12/25/23 23:20 Triage Note found shirtless in tall 12/25/23 22:52 grass, delirious and combative, hitting head off rocks, non-purposeful movements given 400 ketamine and 2.5 versed by EMS Medical / Surgical History (Last Reviewed 12/25/23 @ 23:15 by Marcos Hayden DO) Spinal cord compression PTSD (post-traumatic stress disorder) Neuropathy History of head injury History of asthma Erectile dysfunction Bipolar disorder ADHD (attention deficit hyperactivity disorder) Arthritis Anxiety Acute type A viral hepatitis Most Recent Vital Signs Temperature 36.0 C L 12/26/23 04:00 Temperature Source Temporal Artery Scan 12/26/23 04:00 Pulse 60 12/26/23 04:31 Pulse 60 12/26/23 04:31 Respiratory Rate 12 12/26/23 04:31 Respiratory Effort Mechanically Ventilated 12/26/23 04:00 Respiratory Depth Normal 12/26/23 02:20 Respiratory Pattern Normal 12/26/23 02:20 Blood Pressure 113/65 12/26/23 04:31 Blood Pressure Mean 79 12/26/23 04:31 Blood Pressure Position Supine 12/26/23 04:00 Pulse Oximetry 97 12/26/23 04:31 Respiratory End-tidal CO2 40 12/26/23 04:12 Oxygen Delivery Method Mechanical Ventilator 12/26/23 04:00 Oxygen Flow Rate 0 12/26/23 04:00 Fraction of Inspired Oxygen (FIO2) 24 12/26/23 04:12 End Tidal Co2 38 12/26/23 02:20 Pain Level 0 12/26/23 04:00 Allergies No Known Allergies Allergy (Unverified 11/25/23 21:37) Precautions Isolation Contact precaution 12/26/23 02:20 Active Medications Generic Name Dose Route Start Last Admin Trade Name Freq PRN Reason Stop Dose Admin Etomidate 20 mg 12/26/23 00:15 12/26/23 00:10 Etomidate 20 Mg/10 Ml Vial IVP 20 mg DIRECTED ANGIE Administration Propofol 1,000 mg in 100 mls @ 23.82 mls/hr 12/26/23 00:30 12/26/23 04:58 Diprivan IV 80 mcg/kg/min INFUSION ANGIE 38.112 mls/hr Administration Protocol 50 MCG/KG/MIN Midazolam HCl 50 mg/ Sodium 100 mls @ 15.88 mls/hr 12/26/23 00:30 12/26/23 01:33 Chloride IV 0.1 mg/kg/hr INFUSION ANGIE 15.88 mls/hr Administration Protocol 0.1 MG/KG/HR Iohexol 100 ml 12/25/23 23:15 12/25/23 23:12 Omnipaque 350 Mg/Ml 100 Ml Btl IJ 01/24/24 23:59 100 ml DIRECTED ANGIE Administration Sodium Chloride 50 ml 12/25/23 23:15 12/25/23 23:13 Normal Saline - Diluent 50 Ml Vial IJ 50 ml .FOR DI USE ANGIE Administration IV IV Catheter Type [Right Saline Lock Antecubital] IV Catheter Type [Left Saline Lock Antecubital] IV Catheter Gauge [Right 18 Antecubital] IV Catheter Gauge [Left 18 Antecubital] Diet Orders Category Date Time Status Nothing Per Oral [DIET] Nutrition 12/26/23 Breakfast Active Diagnostics 12/26/23 12/26/23 12/26/23 Range/Units 05:35 04:42 02:50 WBC Pending (4.4-10.8) 10^3/uL RBC Pending (4.36-5.78) 10^6/uL Hgb Pending (13.5-17.5) g/dL Hct Pending (40.0-50.0) % MCV Pending (80-95) fL MCH Pending (27.0-33.0) pg MCHC Pending (32.0-36.0) % RDW Pending (11.8-14.1) % Plt Count Pending (130-400) 10^3/uL MPV Pending (8.0-11.0) fL Immature Gran % % Neutrophils % % Lymphocytes % % Atypical Lymphs % % Monocytes % % Eosinophils % % Basophils % % Nucleated RBC % (0.0-0.3) % Absolute Neutrophils (1.2-6.7) 10^3/uL Absolute Lymphocytes (1.2-3.4) 10^3/uL Absolute Monocytes (0.1-0.8) 10^3/uL Absolute Eosinophils (0.0-0.7) 10^3/uL Absolute Basophils (0.0-0.2) 10^3/uL RBC Morphology PT (9.1-11.1) sec INR (0.9-1.1) APTT (23.6-32.8) sec ABG Sample Site ABG pH (7.35-7.45) ABG pCO2 (35-45) mmHg ABG pO2 (80-105) mmHg ABG HCO3 (22-26) mmol/L ABG Total CO2 (23-27) mmol/L ABG O2 Saturation (95-98) % ABG Base Excess (-2-3) mmol/L VBG pH Pending (7.31-7.41) VBG pCO2 Pending (41-51) mmHg VBG pO2 Pending mmHg VBG HCO3 Pending (23-28) mmol/L VBG Total CO2 Pending (24-29) mmol/L VBG O2 Saturation Pending % VBG Base Excess Pending (-2-3) mmol/L VBG Lactate 1.7 H (0.6-1.4) mmol/L FiO2 % Sodium Pending (136-145) mmol/L Potassium Pending (3.5-5.1) mmol/L Chloride Pending (98-107) mmol/L Carbon Dioxide Pending (21.0-32.0) mmol/L Anion Gap Pending (3-11) mmol/L BUN Pending (7-18) mg/dL Creatinine Pending (0.70-1.30) mg/dL Est GFR (CKD-EPI 2020) Pending (mL/min/1.73m2) Glucose Pending (74-106) mg/dL Calcium Pending (8.5-10.1) mg/dL Magnesium (1.8-2.4) mg/dL Total Bilirubin Pending (0.2-1.0) mg/dL AST Pending (15-37) U/L ALT Pending (16-63) U/L Alkaline Phosphatase Pending (46-116) U/L Ammonia (11-32) umol/L Creatine Kinase (39-308) U/L Troponin I 104 H* (< or =60) ng/L Total Protein Pending (6.4-8.2) g/dL Albumin Pending (3.4-5.0) g/dL Procalcitonin ng/mL TSH (0.36-3.74) uIU/mL Urine Color (Yellow) Urine Clarity (Clear) Urine pH (5-8) Ur Specific Assumption (1.005-1.025) Urine Protein (Neg-Trace) mg/dL Urine Ketones (Negative) mg/dL Urine Blood (Negative) Urine Nitrite (Negative) Urine Bilirubin (Negative) Urine Urobilinogen (Up to 0.2) mg/dL Ur Leukocyte Esterase (Negative) Urine RBC (0-2) HPF Urine WBC (0-5) HPF Ur Epithelial Cells (Negative) HPF Urine Crystals (Negative) HPF Urine Bacteria (Negative) HPF Urine Casts (Negative) LPF Urine Mucus (Negative) Ur Culture Indicated? Urine Glucose (Negative) mg/dL Salicylates (<2.8) mg/dL Urine Opiates Screen (Negative) Urine Methadone Screen (Negative) Acetaminophen (10-30) ug/mL Ur Barbiturates Screen (Negative) Ur Tricyclics Screen (Negative) Ur Amphetamines Screen (Negative) U Benzodiazepines Scrn (Negative) Urine Cocaine Screen (Negative) Ur THC Screen (Negative) Ethyl Alcohol (<10) mg/dL 12/26/23 12/26/23 12/25/23 Range/Units 02:21 01:06 23:30 WBC (4.4-10.8) 10^3/uL RBC (4.36-5.78) 10^6/uL Hgb (13.5-17.5) g/dL Hct (40.0-50.0) % MCV (80-95) fL MCH (27.0-33.0) pg MCHC (32.0-36.0) % RDW (11.8-14.1) % Plt Count (130-400) 10^3/uL MPV (8.0-11.0) fL Immature Gran % % Neutrophils % % Lymphocytes % % Atypical Lymphs % % Monocytes % % Eosinophils % % Basophils % % Nucleated RBC % (0.0-0.3) % Absolute Neutrophils (1.2-6.7) 10^3/uL Absolute Lymphocytes (1.2-3.4) 10^3/uL Absolute Monocytes (0.1-0.8) 10^3/uL Absolute Eosinophils (0.0-0.7) 10^3/uL Absolute Basophils (0.0-0.2) 10^3/uL RBC Morphology PT (9.1-11.1) sec INR (0.9-1.1) APTT (23.6-32.8) sec ABG Sample Site Right Radial ABG pH 7.21 L (7.35-7.45) ABG pCO2 43 (35-45) mmHg ABG pO2 103 (80-105) mmHg ABG HCO3 17 L (22-26) mmol/L ABG Total CO2 17 L (23-27) mmol/L ABG O2 Saturation 97 (95-98) % ABG Base Excess -11 L (-2-3) mmol/L VBG pH (7.31-7.41) VBG pCO2 (41-51) mmHg VBG pO2 mmHg VBG HCO3 (23-28) mmol/L VBG Total CO2 (24-29) mmol/L VBG O2 Saturation % VBG Base Excess (-2-3) mmol/L VBG Lactate Cancelled (0.6-1.4) mmol/L FiO2 30 % Sodium (136-145) mmol/L Potassium (3.5-5.1) mmol/L Chloride (98-107) mmol/L Carbon Dioxide (21.0-32.0) mmol/L Anion Gap (3-11) mmol/L BUN (7-18) mg/dL Creatinine (0.70-1.30) mg/dL Est GFR (CKD-EPI 2020) (mL/min/1.73m2) Glucose (74-106) mg/dL Calcium (8.5-10.1) mg/dL Magnesium (1.8-2.4) mg/dL Total Bilirubin (0.2-1.0) mg/dL AST (15-37) U/L ALT (16-63) U/L Alkaline Phosphatase (46-116) U/L Ammonia (11-32) umol/L Creatine Kinase (39-308) U/L Troponin I (< or =60) ng/L Total Protein (6.4-8.2) g/dL Albumin (3.4-5.0) g/dL Procalcitonin ng/mL TSH (0.36-3.74) uIU/mL Urine Color Yellow (Yellow) Urine Clarity Sl Cloudy (Clear) Urine pH 5.5 (5-8) Ur Specific Assumption 1.025 (1.005-1.025) Urine Protein >=300 H (Neg-Trace) mg/dL Urine Ketones Negative (Negative) mg/dL Urine Blood Large H (Negative) Urine Nitrite Negative (Negative) Urine Bilirubin Negative (Negative) Urine Urobilinogen 1.0 H (Up to 0.2) mg/dL Ur Leukocyte Esterase Negative (Negative) Urine RBC 3-5 H (0-2) HPF Urine WBC 3-5 (0-5) HPF Ur Epithelial Cells Negative (Negative) HPF Urine Crystals Negative (Negative) HPF Urine Bacteria Few (Negative) HPF Urine Casts Negative (Negative) LPF Urine Mucus Negative (Negative) Ur Culture Indicated? No Urine Glucose Negative (Negative) mg/dL Salicylates (<2.8) mg/dL Urine Opiates Screen Negative (Negative) Urine Methadone Screen Negative (Negative) Acetaminophen (10-30) ug/mL Ur Barbiturates Screen Negative (Negative) Ur Tricyclics Screen Negative (Negative) Ur Amphetamines Screen Negative (Negative) U Benzodiazepines Scrn Positive A (Negative) Urine Cocaine Screen Positive A (Negative) Ur THC Screen Negative (Negative) Ethyl Alcohol (<10) mg/dL 12/25/23 Range/Units 10:59 WBC 17.32 H (4.4-10.8) 10^3/uL RBC 3.82 L (4.36-5.78) 10^6/uL Hgb 11.0 L (13.5-17.5) g/dL Hct 34.9 L (40.0-50.0) % MCV 91 (80-95) fL MCH 28.8 (27.0-33.0) pg MCHC 31.5 L (32.0-36.0) % RDW 15.1 H (11.8-14.1) % Plt Count 391 (130-400) 10^3/uL MPV 9.6 (8.0-11.0) fL Immature Gran % 0.0 % Neutrophils % 73.0 % Lymphocytes % 20.0 % Atypical Lymphs % 1 % Monocytes % 5.0 % Eosinophils % 1.0 % Basophils % 0.0 % Nucleated RBC % 0.0 (0.0-0.3) % Absolute Neutrophils 12.64 H (1.2-6.7) 10^3/uL Absolute Lymphocytes 3.64 H (1.2-3.4) 10^3/uL Absolute Monocytes 0.87 H (0.1-0.8) 10^3/uL Absolute Eosinophils 0.17 (0.0-0.7) 10^3/uL Absolute Basophils 0.00 (0.0-0.2) 10^3/uL RBC Morphology Normal PT 11.4 H (9.1-11.1) sec INR 1.1 (0.9-1.1) APTT 23.8 (23.6-32.8) sec ABG Sample Site ABG pH (7.35-7.45) ABG pCO2 (35-45) mmHg ABG pO2 (80-105) mmHg ABG HCO3 (22-26) mmol/L ABG Total CO2 (23-27) mmol/L ABG O2 Saturation (95-98) % ABG Base Excess (-2-3) mmol/L VBG pH 7.25 L (7.31-7.41) VBG pCO2 29 L (41-51) mmHg VBG pO2 112 mmHg VBG HCO3 13 L (23-28) mmol/L VBG Total CO2 12 L (24-29) mmol/L VBG O2 Saturation 98 % VBG Base Excess -15 L (-2-3) mmol/L VBG Lactate 13.6 H* (0.6-1.4) mmol/L FiO2 % Sodium 143 (136-145) mmol/L Potassium 3.2 L (3.5-5.1) mmol/L Chloride 104 (98-107) mmol/L Carbon Dioxide 14.3 L (21.0-32.0) mmol/L Anion Gap 24.7 H (3-11) mmol/L BUN 22 H (7-18) mg/dL Creatinine 1.7 H (0.70-1.30) mg/dL Est GFR (CKD-EPI 2020) 50.66 (mL/min/1.73m2) Glucose 100 (74-106) mg/dL Calcium 8.7 (8.5-10.1) mg/dL Magnesium 1.9 (1.8-2.4) mg/dL Total Bilirubin 0.6 (0.2-1.0) mg/dL AST 126 H (15-37) U/L ALT 88 H (16-63) U/L Alkaline Phosphatase 152 H (46-116) U/L Ammonia 61 H (11-32) umol/L Creatine Kinase 1952 H (39-308) U/L Troponin I < 50 (< or =60) ng/L Total Protein 7.5 (6.4-8.2) g/dL Albumin 3.4 (3.4-5.0) g/dL Procalcitonin 0.3 ng/mL TSH 0.97 (0.36-3.74) uIU/mL Urine Color (Yellow) Urine Clarity (Clear) Urine pH (5-8) Ur Specific Assumption (1.005-1.025) Urine Protein (Neg-Trace) mg/dL Urine Ketones (Negative) mg/dL Urine Blood (Negative) Urine Nitrite (Negative) Urine Bilirubin (Negative) Urine Urobilinogen (Up to 0.2) mg/dL Ur Leukocyte Esterase (Negative) Urine RBC (0-2) HPF Urine WBC (0-5) HPF Ur Epithelial Cells (Negative) HPF Urine Crystals (Negative) HPF Urine Bacteria (Negative) HPF Urine Casts (Negative) LPF Urine Mucus (Negative) Ur Culture Indicated? Urine Glucose (Negative) mg/dL Salicylates 6.7 (<2.8) mg/dL Urine Opiates Screen (Negative) Urine Methadone Screen (Negative) Acetaminophen < 2 (10-30) ug/mL Ur Barbiturates Screen (Negative) Ur Tricyclics Screen (Negative) Ur Amphetamines Screen (Negative) U Benzodiazepines Scrn (Negative) Urine Cocaine Screen (Negative) Ur THC Screen (Negative) Ethyl Alcohol < 3.0 (<10) mg/dL Intake and Output - 24 Hour Total 12/25/23 22:48 thru 12/26/23 05:25 Intake Total 2220 Output Total 450 Balance 1770 Weight 79.8 kg Intake: IV 2220 Output: Urine 450 Other: Urine Color Brown Urine Appearance Clear # Bowel Movements 3 Urinary Catheter Urinary Catheter Date of 12/26/23 Insertion [Uretheral (Ladd)] Time of insertion [Uretheral ( 01:00 Ladd)] Falls Risk Assessment History of Falls Fall During Stay 12/26/23 04:00 Contributing Factors Confusion,Unstable, 12/26/23 04:00 Impairments,Incontinence, Medications Ambulatory Aids Independent 12/26/23 02:20 Tubes/Lines With any additional score 12/26/23 04:00 Gait Evaluation W/any additional score 12/26/23 02:20 Cognition Cognitive impairment 12/26/23 04:00 Fall Total Score 75 12/26/23 04:00 Level of Risk High Risk 12/26/23 04:00 Problems (Last Reviewed 12/25/23 @ 23:15 by Marcos Hayden DO) Aspiration pneumonia (Acute) Acute hypoxemic respiratory failure (Acute) Toxic encephalopathy (Acute) Rhabdomyolysis (Acute) Polysubstance abuse (Chronic) Hepatitis C (Chronic) Notes 12/26/23 03:18 Nursing Notes by Jin Allen Pt came in via EMS for reported delirium with agitation. EMS gave 400 mg Ketamine and 2.5 Versed MINE DEPUTY. Pt arrived, sedated and VSS. Labs drawn, IV access obtained, EKG. Pt changed, was soiled from feces, and was soaked. Clothes cut off, pt dried and warmed with blankets. Pt EtCO2 monitored, airway being maintained. BLOOD COLLECTOR went to further clean the pt, began screaming I need help in here! Pt awoke, became extremely combative with altered mentation. No warning and was completely delirious again. Staff was unable to access pt safely. Pt climbed over the bed rail, onto the floor, IVs were ripped out, fluids all over the floor, pt began flailing around hitting furniture in the room (unaware of his surroundings). Pt was completely disoriented, stooling as he was on the floor, and smacking head off the floor. Pt became wrapped in cables, some were broken by the patient, and some needed to be cut (IV tubing, eTCO2, etc.) for pt safety. Vandana Kwan called. When able, pt was given 200 mg Ketamine IM, followed by another 100. This had little effect. This occurred at 2345 (12/25/23). Pt given 20 Mg Etomidate at 0004.. Per physician, 100 mg Rocuronium attempted to be given, but IV was lost due to patient flailing. At 0015 and 100 mg Succinocholine administered IM. Physician was able to intubate the pt at 00:18. While intubating, pt went into bradycardia and palpable pulses lost. Pt successfully intubated, but vandana hernandez called. CPR performed, IO placed in left distal femur and fluids running. ROSC attained without additional meds. Pt given propofol and fentanyl for sedation. Ladd performed and pt brought back to CT for additional scans. Pt remained stable at this time, in NSR. Repeat labs performed. RT maintaining vent settings. BESSY Jorge, RN Initialized on 12/26/23 03:18 - END OF NOTE v v v v v v v v v Sending and/or Receiving Nurses: Please use comment section below to note any information pertinent to the patient hand-off not included above. Information / Comments: Report received from:Manolo Allen RN
[2023-12-26] MEDS: Midazolam 5 MG/5 ML VIAL (05:58)
[2023-12-26] MEDS: Normal Saline 100 ML 15.9 ML ×2 (05:59→06:57)
[2023-12-26 06:13] LABS: ALT 77 U/L (16-63); AST 129 U/L (15-37); Albumin 2.8 g/dL (3.4-5.0); Alkaline Phosphatase 119 U/L (46-116); Anion Gap 13.2 mmol/L (3-11); BUN 21 mg/dL (7-18); Bilirubin, Total 0.8 mg/dL (0.2-1.0); CO2 21.8 mmol/L (21.0-32.0); Chloride 109 mmol/L (98-107); Glucose 104 mg/dL (74-106); Potassium 3.5 mmol/L (3.5-5.1); Sodium 144 mmol/L (136-145); Total Protein 6.4 g/dL (6.4-8.2)
--- NOTE | 2023-12-26 06:20 | NUR.NOTE ---
0400-Pt admitted at 0400. Had a very large brown diarrhea BM at the time and after cardiac leads were placed and IV pumps put on poles, patient cleaned up with assist of 2 ICU nurses and the help of the ER nurse, Manolo. Also present was RT who took care of the ET tube in the turning back and forth
[2023-12-26 06:31] LABS: HCT 30.1 % (40.0-50.0); MCH 28.7 pg (27.0-33.0); MCHC 33.2 % (32.0-36.0); MCV 86 fL (80-95); MPV 9.7 fL (8.0-11.0); Platelet Count 239 10^3/uL (130-400); RBC 3.49 10^6/uL (4.36-5.78); RDW 15.3 % (11.8-14.1); RDW-SD 48.5 fL; WBC 13.56 10^3/uL (4.4-10.8)
[2023-12-26 06:32] LABS: BE (Venous) -3 mmol/L (-2-3); HCO3 (Venous) 22 mmol/L (23-28); pCO2 (Venous) 39 mmHg (41-51); pH (Venous) 7.36 (7.31-7.41); pO2 (Venous) 151 mmHg
--- NOTE | 2023-12-26 06:53 | NUR.NOTE ---
IO removed by this nurse.
[2023-12-26 07:13] LABS: CREATININE 1.1 mg/dL (0.70-1.30); Estimated GFR 85.42 (mL/min/1.73m2)
--- NOTE | 2023-12-26 09:03 | INITIAL_ITS ---
Date of service: 12/26/23 Time of Service: 09:03 Care Management Initial Assmt Initial Assessment Reason for Hospitalization: rhabdo, pneumonia Functional Status/Living Situation Patient Presentation: Marcos is intubated and heavily sedated so MARTÍNEZ was unable to converse with him. Information obtained from chart review and providers. MARTÍNEZ was able to reach his girlfriend Dayanara who provided some additional information about Marcos's recent substance use and the effect it has on him. She stated that when he uses xylazine and crack that he becomes irrational and agitated. She stated the same thing happened about a month ago. Marcos did go into rehab and was clean for about a week, then relapsed about a week ago. 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) Instrumental Activities of Daily Living (ADLs): Independent Medications Medication Management: No Issues/Barriers identified Physical Functioning/Mobility Assistive Device: none Advance Directives Advance Directives: Do you have an Advance Directive: N 07/17/20 09:09 AD On File at [facility]: N 07/11/20 11:06 Date Asked 11/26/23 11/26/23 00:34 AD Date Reviewed COLST On File at [facility] No 12/25/23 22:56 COLST Date Scanned Code Status Resuscitation Status Full Code Insurance Coverage/Financial Issues Insurance: Medicaid ACO Member: No Care Team Visit Care Team Role Provider Type Raffi Merida, Primary Care Provider OSTEOPATHIC DOCTOR Pilar Candelario MD Other Providers NON-[facility] STAFF PHYSICIAN OTILIO Nava Other Providers PHYSICIANS ASSISTANT Ulises Alberts MD Other Providers CONSULTING PHYSICIAN Danny Carbajal, DO Other Providers CONSULTING PHYSICIAN Олег Ventura MD Other Providers [facility] STAFF PHYSICIAN Bravo Hahn Other Providers CONSULTING PHYSICIAN Juan Brian MD Other Providers CONSULTING PHYSICIAN Mary Atkins, DO Other Providers OSTEOPATHIC DOCTOR Claudia Garcia, DO Other Providers CONSULTING PHYSICIAN Kamari Miller MD Other Providers CONSULTING PHYSICIAN Jin Izquierdo, DO Other Providers CONSULTING PHYSICIAN Yane Marino Other Providers NON-[facility] STAFF PHYSICIAN Benny Manley MD Other Providers [facility] STAFF PHYSICIAN Melinda Silva, DO Other Providers OSTEOPATHIC DOCTOR Chris Pizarro, DO Other Providers OSTEOPATHIC DOCTOR Cinthia Krueger MD Other Providers [facility] STAFF PHYSICIAN Marcos Hayden DO Emergency Provider [facility] STAFF PHYSICIAN Mohit Bravo MD Admit Provider [facility] STAFF PHYSICIAN Attending Provider Discharge Potential Discharge Needs: PCP F/U Appt and Other (substance use treatment if willing) Anticipated Barriers to Discharge: Medical Status Patient/Family Education Needs: Review discharge instructions, discuss Ask Me Three and Other (limitations, follow up plan, substance use resources) Transportation: Other (to be determined by disposition) Plan: Marcos is sedated and intubated at this time. When he is awake and able to communicate, an appropriate plan of care will be developed. CM will follow and continue to assess for discharge needs. PFSH All Active Problems (Updated 12/26/23 @ 10:09 by Maikel Daley) Elevated troponin (Acute) Agitation (Acute) Hyperammonemia (Acute) Metabolic acidosis (Acute) Dehydration (Acute) Laceration of scalp (Acute) Altered mental status (Acute) Illicit drug use (Acute) Aspiration pneumonia (Acute) Rhabdomyolysis (Acute) Aspiration pneumonia (Acute) Acute hypoxemic respiratory failure (Acute) Toxic encephalopathy (Acute) Leukocytosis (leucocytosis) (Acute) Rhabdomyolysis (Acute) Polysubstance abuse (Chronic) Tricuspid insufficiency (Acute) Mitral regurgitation (Chronic) Dysphagia (Acute) Hepatitis C (Chronic) Chronic rhinitis (Acute) Fistula, silvia-antral (Acute) Dry tooth socket (Acute) Nasal congestion (Acute) Sinusitis (Acute) Medical History Spinal cord compression PTSD (post-traumatic stress disorder) Neuropathy History of head injury History of asthma Erectile dysfunction Bipolar disorder ADHD (attention deficit hyperactivity disorder) Arthritis Anxiety Acute type A viral hepatitis Family History Mother Substance use disorder Anxiety disorder Depression Diabetes Father Substance use disorder Depression Social History Smoking/Tobacco Use Status: Current every day Tobacco Type: cigarettes Smoking packs per day: 1 Smoking cigarettes per day: 20.0 Tobacco: How many years used: 15 Quit status: considering quitting Second Hand Exposure: No Smoking risk assessment performed?: Yes Alcohol Intake: former Drug use: Daily Substance use type: marijuana, crack/cocaine, tranquilizers, opiates, painkillers, IV drugs, methamphetamine and prescription drug Details: uses fentanyl, 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 Pets and animals: Yes (4 Dogs, 2 Cats) Pets and animals: cat(s) and dog(s) Sexually active: No Do you think of yourself as: straight/heterosexual Current gender identity: male What is your relationship status?: How often do you talk on the phone with friends or family?: never How often do you get together with friends or relatives?: never Do you belong to any clubs or organized social groups?: no Panel score (0-1 are the most socially isolated patients): 0 What type of physical activity do you participate in: none Ana/Methodist: None Seatbelt use: never Helmet use: Yes Helmet use: sometimes Drive intox or ride w/intox peg driver: No Do you feel safe at home: Yes Do you feel safe in your relationship?: Yes SDOH(Care Management) Screening Will the Patient Participate in the Screening?: Unable to obtain
[2023-12-26] MEDS: Enoxaparin 40 MG/0.4 ML SYR SC (09:21)
[2023-12-26] MEDS: Normal Saline-STERILE FIELD 0.9% 10 ML SYR (09:29)
--- NOTE | 2023-12-26 09:30 | DI.RAD_ITS ---
Exam(s) XR PORTABLE CHEST AP POST LINE EXAM: XR PORTABLE CHEST AP POST LINE CLINICAL HISTORY: central line confirmation. TECHNIQUE: 2D digital imaging was performed. COMPARISON: Prior chest x-ray earlier same date. FINDINGS: Single AP portable view. Patient remains intubated. Distal tip of the endotracheal tube is unchanged. There has been interva l placement of a right jugular central line. Distal tip is in good position in the lower SVC. Heart size is upper normal. The mediastinum is not widened. No infiltrates nor pleural effusions. No pneumothorax. No pneumomediastinum. No obvious fractures. IMPRESSION: No acute pulmonary findings. Patient remains intubated. Central line in good position. DATA REPOSITORY: RADIATION DOSE DELIVERED:
--- NOTE | 2023-12-26 10:02 | W.PM.PROGNOT ---
Date of Service Date of service: 12/26/23 Time of Service: 10:02 Assessment and Plan Assessment and plan (1) Toxic encephalopathy: Status: Acute Assessment and plan: - As noted above in HPI patient became significantly agitated in the emergency department despite multiple doses of ketamine resulting and harm to emergency room staff, patient flopping himself on the floor and causing worsening of head laceration, and wrapping himself in his IVs while destroying equipment in the emergency department and patient soiling himself -Ultimately, given the significant amount of sedating medication required to maintain the patient and staff safety, decision was made for patient to be intubated -Acidosis resolved -he is currently on combination of propofol and versed for sedation. -Given presumed fentanyl and xylazine use, I prefer to transition off the benzo and use dexmedetomidine (pharmacologically similar to xylazine) and opioids starting with fentanyl pushes (diarrhea likely manifestation of opioid withdrawal). I would like to transition to MOUD therapy but need patient consent. -I agree with ongoing sedation at least until 12/27/2023 (2) Acute hypoxemic respiratory failure: Status: Acute Assessment and plan: -Secondary too multiple doses of sedating medications given for toxic encephalopathy as noted above, resulting in patient being intubated for airway protection -post-intubation VBG much improved -patient should remain intubated and sedated for at least the next 24-48hrs to allow cocaine and xylazine effects to alonzo off as well as to allow for adequet treatment of aspiration pneumonia which likely occurred when patient was initially given sedating meds via EMS (3) Aspiration pneumonia: Status: Acute Assessment and plan: -as noted above -started on doxy and zosyn in the ED, will continue. I agree with not continuing vancomycin (4) Rhabdomyolysis: Status: Acute Assessment and plan: -with MADDIE, which is improving -Secondary to polysubstance use -Follow-up repeat CK this morning Qualifiers: Rhabdomyolysis type: non-traumatic Qualified Code(s): M62.82 - Rhabdomyolysis (5) Polysubstance abuse: Status: Chronic Assessment and plan: -as noted above -presume fentanyl and xylazine use along with cocaine. -not engaged in treatment but will buprenorphine induction if he is willing once out of sensation (6) PTSD (post-traumatic stress disorder): (7) Elevated troponin: Status: Acute Assessment and plan: mild elevation after very breif code for unstable bradycardia in setting of multiple sedating agents. Has been cardiovascularly stable since, cocaine use but no history of cardiomyopathy. Repeat the troponin with next labs, expect to trend down. Subjective Subjective Patient reports: denies blood in stool, vomiting or fever Interval history since last seen: Patient is intubated and sedated. Having copious loose stool per RN. Exam Narrative Exam Narrative: Intubated and sedated, no distress at baseline or with exam. heart mild bradycardia with rate in the 50s, regular, no murmurs. Lungs clear to auscultation bilaterally. abdomen soft, nondistended, no masses. Ext with multiple scabbed sores, but no rash or drainage. Objective Last Vital Signs Temp 36.0 C L 12/26/23 07:49 Pulse 53 L 12/26/23 09:01 Resp 12 12/26/23 09:01 BP 118/72 12/26/23 09:01 Pulse Ox 94 12/26/23 09:01 Laboratory Results - last 24 hr 12/25/23 12/25/23 12/26/23 10:59 23:30 01:06 WBC 17.32 H RBC 3.82 L Hgb 11.0 L Hct 34.9 L MCV 91 MCH 28.8 MCHC 31.5 L RDW 15.1 H Plt Count 391 MPV 9.6 Immature Gran % 0.0 Neutrophils % 73.0 Lymphocytes % 20.0 Atypical Lymphs % 1 Monocytes % 5.0 Eosinophils % 1.0 Basophils % 0.0 Nucleated RBC % 0.0 Absolute Neutrophils 12.64 H Absolute Lymphocytes 3.64 H Absolute Monocytes 0.87 H Absolute Eosinophils 0.17 Absolute Basophils 0.00 RBC Morphology Normal PT 11.4 H INR 1.1 APTT 23.8 ABG Sample Site Right Radial ABG pH 7.21 L ABG pCO2 43 ABG pO2 103 ABG HCO3 17 L ABG Total CO2 17 L ABG O2 Saturation 97 ABG Base Excess -11 L VBG pH 7.25 L VBG pCO2 29 L VBG pO2 112 VBG HCO3 13 L VBG Total CO2 12 L VBG O2 Saturation 98 VBG Base Excess -15 L VBG Lactate 13.6 H* FiO2 30 Sodium 143 Potassium 3.2 L Chloride 104 Carbon Dioxide 14.3 L Anion Gap 24.7 H BUN 22 H Creatinine 1.7 H Est GFR (CKD-EPI 2020) 50.66 Glucose 100 Calcium 8.7 Magnesium 1.9 Total Bilirubin 0.6 AST 126 H ALT 88 H Alkaline Phosphatase 152 H Ammonia 61 H Creatine Kinase 1952 H Troponin I < 50 Total Protein 7.5 Albumin 3.4 Procalcitonin 0.3 TSH 0.97 Urine Color Yellow Urine Clarity Sl Cloudy Urine pH 5.5 Ur Specific [place] 1.025 Urine Protein >=300 H Urine Ketones Negative Urine Blood Large H Urine Nitrite Negative Urine Bilirubin Negative Urine Urobilinogen 1.0 H Ur Leukocyte Esterase Negative Urine RBC 3-5 H Urine WBC 3-5 Ur Epithelial Cells Negative Urine Crystals Negative Urine Bacteria Few Urine Casts Negative Urine Mucus Negative Ur Culture Indicated? No Urine Glucose Negative Salicylates 6.7 Urine Opiates Screen Negative Urine Methadone Screen Negative Acetaminophen < 2 Ur Barbiturates Screen Negative Ur Tricyclics Screen Negative Ur Amphetamines Screen Negative U Benzodiazepines Scrn Positive A Urine Cocaine Screen Positive A Ur THC Screen Negative Ethyl Alcohol < 3.0 12/26/23 12/26/23 12/26/23 02:21 02:50 05:36 WBC RBC Hgb Hct MCV MCH MCHC RDW Plt Count MPV Immature Gran % Neutrophils % Lymphocytes % Atypical Lymphs % Monocytes % Eosinophils % Basophils % Nucleated RBC % Absolute Neutrophils Absolute Lymphocytes Absolute Monocytes Absolute Eosinophils Absolute Basophils RBC Morphology PT INR APTT ABG Sample Site ABG pH ABG pCO2 ABG pO2 ABG HCO3 ABG Total CO2 ABG O2 Saturation ABG Base Excess VBG pH VBG pCO2 VBG pO2 VBG HCO3 VBG Total CO2 VBG O2 Saturation VBG Base Excess VBG Lactate Cancelled 1.7 H FiO2 Sodium 144 Potassium 3.5 Chloride 109 H Carbon Dioxide 21.8 Anion Gap 13.2 H BUN 21 H Creatinine TNP Est GFR (CKD-EPI 2020) TNP Glucose 104 Calcium 8.0 L Magnesium Total Bilirubin 0.8 AST 129 H ALT 77 H Alkaline Phosphatase 119 H Ammonia Creatine Kinase Troponin I 104 H* Total Protein 6.4 Albumin 2.8 L Procalcitonin TSH Urine Color Urine Clarity Urine pH Ur Specific [place] Urine Protein Urine Ketones Urine Blood Urine Nitrite Urine Bilirubin Urine Urobilinogen Ur Leukocyte Esterase Urine RBC Urine WBC Ur Epithelial Cells Urine Crystals Urine Bacteria Urine Casts Urine Mucus Ur Culture Indicated? Urine Glucose Salicylates Urine Opiates Screen Urine Methadone Screen Acetaminophen Ur Barbiturates Screen Ur Tricyclics Screen Ur Amphetamines Screen U Benzodiazepines Scrn Urine Cocaine Screen Ur THC Screen Ethyl Alcohol 12/26/23 06:21 WBC 13.56 H RBC 3.49 L Hgb 10.0 L Hct 30.1 L MCV 86 D MCH 28.7 MCHC 33.2 RDW 15.3 H Plt Count 239 MPV 9.7 Immature Gran % Neutrophils % Lymphocytes % Atypical Lymphs % Monocytes % Eosinophils % Basophils % Nucleated RBC % Absolute Neutrophils Absolute Lymphocytes Absolute Monocytes Absolute Eosinophils Absolute Basophils RBC Morphology PT INR APTT ABG Sample Site ABG pH ABG pCO2 ABG pO2 ABG HCO3 ABG Total CO2 ABG O2 Saturation ABG Base Excess VBG pH 7.36 VBG pCO2 39 L VBG pO2 151 VBG HCO3 22 L VBG Total CO2 VBG O2 Saturation VBG Base Excess -3 L VBG Lactate FiO2 Sodium Potassium Chloride Carbon Dioxide Anion Gap BUN Creatinine 1.1 Est GFR (CKD-EPI 2020) 85.42 Glucose Calcium Magnesium Total Bilirubin AST ALT Alkaline Phosphatase [place] Creatine Kinase Troponin I Total Protein Albumin Procalcitonin TSH Urine Color Urine Clarity Urine pH Ur Specific [place] Urine Protein Urine Ketones Urine Blood Urine Nitrite Urine Bilirubin Urine Urobilinogen Ur Leukocyte Esterase Urine RBC Urine WBC Ur Epithelial Cells Urine Crystals Urine Bacteria Urine Casts Urine Mucus Ur Culture Indicated? Urine Glucose Salicylates Urine Opiates Screen Urine Methadone Screen Acetaminophen Ur Barbiturates Screen Ur Tricyclics Screen Ur Amphetamines Screen U Benzodiazepines Scrn Urine Cocaine Screen Ur THC Screen Ethyl Alcohol Time Spent with Patient Time Spent with Patient: >50 minutes Time was spent: preparing to see the patient(eg.review tests), obtaining and/or reviewing separately otained hiistory, ordering medications,tests, procedures, referring, communicating with other health urgent care physician, indepentently interpreting results and care coordination
--- NOTE | 2023-12-26 11:11 | PHA.REVIEW2 ---
Pharmacy Admission Review Admission Clinical Review Admission Pharmacy Review: (Updated 12/26/23 @ 10:09 by Maikel Daley) Elevated troponin (Acute) Aspiration pneumonia (Acute) Acute hypoxemic respiratory failure (Acute) Toxic encephalopathy (Acute) Rhabdomyolysis (Acute) No Known Allergies Allergy (Unverified 11/25/23 21:37) Resuscitation Status Full Code Height 5 ft 8 in Weight 79.8 kg Pharmacy Admission Review Renal Dosing Renal Dosing: BUN 21 mg/dL (7-18) H 12/26/23 05:36 Creatinine 1.1 mg/dL (0.70-1.30) 12/26/23 06:21 Medications needing adjustments: Reviewed (CrCl 97 mL/min, BUN decreased from 22 and SCr decreased from 1.7) List of meds needing interventions: Current medications are okay Anticoagulation Anticoagulation: Hgb 10.0 g/dL (13.5-17.5) L 12/26/23 06:21 Hct 30.1 % (40.0-50.0) L 12/26/23 06:21 Plt Count 239 10^3/uL (130-400) 12/26/23 06:21 INR 1.1 (0.9-1.1) 12/25/23 10:59 Creatinine 1.1 mg/dL (0.70-1.30) 12/26/23 06:21 DVT Prophylaxis: Reviewed Medications: Enoxaparin (40mg daily) Opiate Usage Evaluate Pain Scale/Pains Meds: Reviewed (PRN IVP fentanyl) Scheduled Bowel Reg ordered if on Opiates?: No (PRN Miralax and docusate) Relevant Labs Relevant Labs: Sodium 144 mmol/L (136-145) 12/26/23 05:36 Potassium 3.5 mmol/L (3.5-5.1) 12/26/23 05:36 Chloride 109 mmol/L (98-107) H 12/26/23 05:36 Magnesium 1.9 mg/dL (1.8-2.4) 12/25/23 10:59 Electrolytes, C-Reactive P, ESR: Reviewed (Hgb decreased from 11 to 10, AST/ALT 129/77) Cardiac Review Cardiac Review: Troponin I 104 ng/L (< or =60) H* 12/26/23 02:50 BP, HR, EF%: Reviewed (BP WNL, HR 50, repeat troponin pending) QTc Review QTc: Reviewed (472 from 12/25/23) IV to PO Switch IV Medications: Reviewed (Patient currently intubated) Home Meds Home Med List reviewed: Reviewed Relevent Home Meds Not ordered & why?: None ordered - patient currently intubated Suboxone, furosemide, gabapentin and sildenafil Current Meds Current Medication Order Review: Intervened (Added IV admission order set, DC'd 1 midazolam order (put in over night because ICU only had 5mg/5mL vials in Pyxis, but did not need to make another bag. Discontinued and sent vials for 50mg/10mL) Comments: Infusions: Midazolam: was on 0.1 mg/kg/hr - paused today 1113 Propofol: 80 mcg/kg/min Dexmedetomidine: 0.4 mcg/kg/hr started at 1112 today Pharmacy Antibiotic Review Relevant Labs: Relevant Labs 12/25/23 10:59 Procalcitonin 0.3 WBC 13.56 10^3/uL (4.4-10.8) H 12/26/23 06:21 Procalcitonin 0.3 ng/mL 12/25/23 10:59 Temperature 36.4 C Temperature 36.0 C Temperature 36.0 C Temperature 37.2 C Comments: Patient is on day 1 of Zosyn and doxycycline for aspiration pneumonia. WBC decreased from 17.32 to 13.56. No cultures at this time.
[2023-12-26] MEDS: dexmedeTOMidine IN 0.9 % NACL 400 MCG/100 ML BTL 7.98 MCG IV (11:12)
[2023-12-26] MEDS: Normal Saline 1,000 ML 100 ML IV ×2 (11:14→21:15)
--- NOTE | 2023-12-26 11:27 | DI.VRAD_ITS ---
PROCEDURE INFORMATION: Exam: XR Chest Exam date and time: 12/26/2023 10:57 AM Age: 43 years old Clinical indication: Other: Central line confirmation TECHNIQUE: Imaging protocol: Radiologic exam of the chest. Views: 1 view. COMPARISON: CR XR PORTABLE CHEST AP 12/26/2023 12:37 AM FINDINGS: Tubes, catheters and devices: Endotracheal tube is unchanged in position. Right peripherally inserted central venous catheter tip is in the midportion of the superior vena cava. There are electrocardiographic leads on the thorax. Lungs: Unremarkable. No consolidation. Pleural spaces: Unremarkable. No pleural effusion. No pneumothorax. Heart/Mediastinum: Unremarkable. No cardiomegaly. Bones/joints: Unremarkable. IMPRESSION: 1. Standard placement of a right internal jugular central venous catheter. 2. No acute findings. Dictated and Authenticated by: Atif Pina MD. Ordering:DAYA Delgado MD
--- NOTE | 2023-12-26 12:02 | BRIEFOP_ITS ---
Date of service: 12/26/23 Time of Service: 10:30 Brief Operative Note Procedure/Pre & Post Op Diagnoses/Manager It Training: Pre-op Dx: Central venous access for medications and monitoring Post-op Dx: Satisfactory insertion of right IJ CVC Procedure: (a) Right IJ ultrasound venous access (b) Insertion right IJ triple lumen CVC Danny Carbajal D.O. Anesthesia Anesthesia Type: Local By Surgeon Less than 10ml Specimen/Culture Specimen(s): None Complications Complications: None Additional Procedure Notes Note: Post-placement pCXR demonstrated satisfactory catheter position with no pneumothorax.
--- NOTE | 2023-12-26 12:06 | ROE_ITS ---
Date of service: 12/26/23 Time of Service: 10:30 Operative Note Operative Note DATE OF PROCEDURE: 12/26/23 PRE-OP DIAGNOSIS: Central venous access for medications and monitoring POST-OP DIAGNOSIS: same ((a) patent and compressible right IJ vein without thrombus) PROCEDURE: (a) Right IJ ultrasound venous access (b) Right IJ central venous catheter insertion SURGEON: Danny Carbajal ANESTHESIA TYPE: Local By Surgeon Refer to Anesthesia Record ESTIMATED BLOOD LOSS: 10 PATHOLOGY: none sent COMPLICATIONS: None Patient's condition: stable Implants: Right IJ triple lumen CVC Indications: Venous access for medications and monitoring Procedure Description: Patient placed supine in ICU bed. Right neck prepped and draped in usual fashion. Lidocaine 1% plain used to anesthetize the skin over the right SCM. An 18 gauge Cook needle on a syringe was used with loss of resistance technique and ultrasound guidance to access the right internal jugular vein. There was a brisk venous back flash. A guidewire was advanced through the needle, into the patient, and the needle was removed. A #11 blade scalpel was used to dora the skin. Vein dilator was passed over the needle, into the patient, and the dialator was removed. A saline flush triple lumen CVC was advanced over the n eedle, into the patient, and the guidewire was removed. All three ports aspirated venous blood and were flushed with saline. Port caps with applied and tightened. The catheter was sutured to the skin and a sterile dressing was applied. A post-placement pCXR was obtained that demonstrated satisfactory catheter position without pneumothorax. The line was deemed ready for use. Patient tolerated procedure well.
[2023-12-26] MEDS: Lactated Ringers 500 ML IV (12:20)
[2023-12-26 12:34] LABS: Anion Gap 11.6 mmol/L (3-11); BUN 18 mg/dL (7-18); CO2 26.4 mmol/L (21.0-32.0); CREATININE 1.1 mg/dL (0.70-1.30); Calcium 8.2 mg/dL (8.5-10.1); Chloride 109 mmol/L (98-107); Estimated GFR 85.42 (mL/min/1.73m2); Glucose 85 mg/dL (74-106); Sodium 147 mmol/L (136-145)
[2023-12-26 12:41] LABS: Potassium 2.9 mmol/L (3.5-5.1)
[2023-12-26] MEDS: POTASSIUM CHLORIDE 20 MEQ/100 ML BAG 50 MEQ IVINF ×2 (13:28→14:40)
[2023-12-26] MEDS: DEXTROSE 5%-WATER 1,000 ML 75 ML IV (13:43)
[2023-12-26 13:54] LABS: Magnesium 2.3 mg/dL (1.8-2.4); Troponin I < 50 ng/L (< or =60)
[2023-12-26 13:59] LABS: Creatine Kinase 1291 U/L (39-308)
--- NOTE | 2023-12-26 15:37 | DI.VRAD_ITS ---
PROCEDURE INFORMATION: Exam: CT Head Without Contrast Exam date and time: 12/26/2023 3:02 PM Age: 43 years old Clinical indication: Other: Unresponsive off sedation, head trauma TECHNIQUE: Imaging protocol: Computed tomography of the head without contrast. COMPARISON: CT HEAD CERVICAL SPINE WO 12/26/2023 1:08 AM FINDINGS: Brain: No evidence of acute infarct. No intraparenchymal hemorrhage. No midline shift or mass effect. No extra-axial fluid collections or hemorrhage. Cerebral ventricles: No ventriculomegaly. Paranasal sinuses: Visualized sinuses are unremarkable. No fluid levels. Mastoid air cells: Visualized mastoid air cells are well aerated. Bones: Unremarkable. No acute fracture. Soft tissues: The posterior parietal scalp has multiple cutaneous grant. There is a small subgaleal hematoma not seen on yesterday's examination.. IMPRESSION: No acute intracranial abnormality. Dictated and Authenticated by: Atif Pina MD. Ordering:FERNANDO Ko MD
[2023-12-26] MEDS: Midazolam 5 MG/5 ML VIAL 10 MG IVP (15:42)
--- NOTE | 2023-12-26 16:34 | W.EVENT ---
Date of service: 12/26/23 Time of Service: 16:34 Event Note: called because patient noted to have temperature down to 33.6, muscle fasciculations/shivering vs seizure activity noted. Sedation was withdrawn and he did not start to withdraw from pain or initiate breath. His pupils were not reactive to light. Given concern for possible seizure and the fact that we had just transitioned off of midazolam drip, I did order 10mg of midazolam. STAT CT head w/o did not show bleeding, midline shift, or other clear abnormality. Hemodynamics remained stable. He was placed on a bear hugger and shivering has resolved at this point. Some breath initiation has been noted, and propofol and precedex were restarted. I don't see signs of infection evolving, but blood cultures ordered. He is still on pip/tazo. I suspect the hypothermia is related to the propofol infusion. Continue to monitor tempurature closely. I don't think he had a seizure, the movement I saw was more consistent with shivering. His lack of waking off sedation is concerning, but he was hypothermic at that point and had been on multiple sedating medications. The plan for now is to continue sedation as previously planned and keep him warm. Plan to try withdrawing sedation tomorrow. Discussed with his partner and daughter Time Spent with Patient Time spent in critical care(minutes): 55 Time Spent Included: Coordination of care, Chart review, Documenting critically ill care, Time at immediate bedside, Discussing critically ill care with other medical staff and Discussing Hx and/or treatment with family
[2023-12-26] MEDS: PROPOFOL 1,000 MG/100 ML BTL 14.292 MG IV (16:46)
[2023-12-26] MEDS: Normal Saline Flush 10 ML SYR IVP ×2 (16:46→20:00)
--- NOTE | 2023-12-26 19:29 | NUR.NOTE ---
Mother at pt bedside at this time. Friend, Dayanara also present in ICU to see pt. Pt remains intubated and sedated. Mother will be here in the morning
[2023-12-26] MEDS: PROPOFOL 1,000 MG/100 ML BTL 28.584 MG IV (21:11)
[2023-12-27] VITALS (36 sets, daily range): BP systolic 125–174; BP diastolic 69–128; PULSE 61–114; RESP 10–25; TEMP 36.4–37.3; O2SAT 91–100
[2023-12-27] MEDS: PROPOFOL 1,000 MG/100 ML BTL 33.348 MG IV (00:30)
[2023-12-27] MEDS: fentaNYL 100 MCG/2 ML VIAL IVP ×2 (01:35→04:02)
[2023-12-27] MEDS: dexmedeTOMidine IN 0.9 % NACL 400 MCG/100 ML BTL 7.98 MCG IV (02:11)
[2023-12-27] MEDS: DEXTROSE 5%-WATER 1,000 ML 75 ML IV (02:16)
[2023-12-27] MEDS: DOXYCYCLINE 100 MG in Normal Saline 100 ML IVPB (02:18)
[2023-12-27] MEDS: PIPERACILLIN/TAZO 3.375 GM in Normal Saline 50 ML IVPB (02:30)
[2023-12-27] MEDS: PROPOFOL 1,000 MG/100 ML BTL 28.584 MG IV ×2 (03:35→06:45)
[2023-12-27 06:33] LABS: Abs Immature Grans 0.03 10^3/uL (0.0-0.06); Absolute Basophil Count 0.04 10^3/uL (0.0-0.2); Absolute Eosinophil Count 0.16 10^3/uL (0.0-0.7); Absolute Lymphocyte Count 0.94 10^3/uL (1.2-3.4); Absolute Monocyte Count 0.45 10^3/uL (0.1-0.8); Absolute Neutrophil Count 5.23 10^3/uL (1.2-6.7); Basophils % 0.6 %; Eosinophils % 2.3 %; HCT 30.8 % (40.0-50.0); HGB 10.2 g/dL (13.5-17.5); Immature Grans % 0.4 %; Lymphocytes % 13.7 %; MCH 28.4 pg (27.0-33.0); MCHC 33.1 % (32.0-36.0); MCV 86 fL (80-95); MPV 9.7 fL (8.0-11.0); Monocytes % 6.6 %; Neutrophils % 76.4 %; Platelet Count 234 10^3/uL (130-400); RBC 3.59 10^6/uL (4.36-5.78); RDW 15.8 % (11.8-14.1); RDW-SD 49.6 fL; WBC 6.85 10^3/uL (4.4-10.8)
[2023-12-27] MEDS: Normal Saline 1,000 ML 100 ML IV (06:44)
[2023-12-27 06:49] LABS: Anion Gap 11.7 mmol/L (3-11); BUN 9 mg/dL (7-18); CO2 22.3 mmol/L (21.0-32.0); Calcium 7.9 mg/dL (8.5-10.1); Chloride 112 mmol/L (98-107); Creatine Kinase 573 U/L (39-308); Estimated GFR 95.77 (mL/min/1.73m2); Glucose 114 mg/dL (74-106); Sodium 146 mmol/L (136-145)
[2023-12-27 06:53] LABS: Potassium 2.8 mmol/L (3.5-5.1)
--- NOTE | 2023-12-27 08:18 | PDOC.CMPRO ---
Date of service: 12/27/23 Time of Service: 08:18 Care Management Progress Note Progress Note Text Progress Note Text: Marcos was successfully extubated this morning and then signed out AMA shortly thereafter. SDOH(Care Management) Screening Will the Patient Participate in the Screening?: Unable to obtain
--- NOTE | 2023-12-27 10:12 | RESPIRATORY ---
Marcos Camejo - Extubation Note Approx [id number] Pt extubated to 2L nasal cannula. Pt was able to produce voice and tolerated procedure well. Pt orally suctioned a couple of times post extubation; pt placed on room air within 25 minutes.
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
== END 2023-12-27 09:20 | disposition left against medical advice (07) | DRG 208 ==
LOC: ER 12-26 02:17 → ICU 12-26 03:58
PROVIDERS: Family Medicine; Admitting Provider Family Medicine; Emergency Provider Student in an Organized Health Care Education/Training Program; PCP Family Medicine; Visit Provider Family Medicine
DX: J96.01 Acute respiratory failure with hypoxia (principal); G92.9 Unspecified toxic encephalopathy; J69.0 Pneumonitis due to inhalation of food and vomit; M62.82 Rhabdomyolysis; N17.9 Acute kidney failure, unspecified; E87.20 Acidosis, unspecified; F43.10 Post-traumatic stress disorder, unspecified; B18.2 Chronic viral hepatitis C; F19.10 Other psychoactive substance abuse, uncomplicated; F41.9 Anxiety disorder, unspecified; F31.9 Bipolar disorder, unspecified; R74.8 Abnormal levels of other serum enzymes; S01.01XA Laceration without foreign body of scalp, initial encounter; W18.09XA Striking against other object with subsequent fall, initial encounter; R00.1 Bradycardia, unspecified; T68.XXXA Hypothermia, initial encounter; E86.0 Dehydration; T41.295A Adverse effect of other general anesthetics, initial encounter; T41.1X5A Adverse effect of intravenous anesthetics, initial encounter; Y92.238 Other place in hospital as the place of occurrence of the external cause
CPT/HCPCS: 36573; 00123; 12002; 31500; 36415; 36591; 51702; 71045; 74177; 80048; 80053; 80307; 82550; 82805; 84145; 85027; 87040; 92950; 93005; 96365; 96366; 96367; 96368; 96372; 96375; 99291; J1650; 70450; 70486; 71260; 72125; 80320; 80329; 81003; 81015; 82140; 82565; 83605; 83735; 84443; 84484; 85025; 85610; 85730; 93010; 94002; 99223; 99239; J0330; J2250; J2543; J2704; J3010; J3370; J3480; J3490; J7060

== ENCOUNTER 2023-12-28 09:09 | Emergency (ER) | payer MEDICAID, SELFPAY ==
[2023-12-28 09:10] VITALS: BP 151/92; PULSE 100; RESP 18; TEMP 37.1; O2SAT 98
[2023-12-28 09:14] VITALS: BP 151/92; PULSE 100; RESP 18; TEMP 37.1; O2SAT 98
--- NOTE | 2023-12-28 09:45 | ED.GENADUL_ITS ---
Discharge Plan Disposition Patient Disposition: Home Condition: Stable Discharge Details Clinical Impression: Cough Primary Care Provider: Raffi Merida ED Provider: Shimon Green Home Meds and New Rx's Prescriptions: New azithromycin 250 mg tablet See Rx Instructions .ROUTE .COMPLEX Qty: 6 0RF Rx Instructions: For 250 mg dose pack: take 500 mg today (day 1), then 250 mg for 4 days (days 2-5) amoxicillin-pot clavulanate 875-125 mg tablet 1 tab PO BID 7 Days Qty: 14 0RF No Action gabapentin 300 mg capsule 300 mg PO TID Qty: 270 3RF sildenafil (pulm.hypertension) 20 mg tablet 20 mg PO DAILY PRN (Reason: sexual activity) Qty: 30 6RF buprenorphine-naloxone [Suboxone] 12-3 mg film 2 film buccal Q24H Rx Instructions: place 1 strip/tab under (each) side of tongue Discharge Instructions Instructions: Cough in adults Additional Instructions: Please follow-up with your primary care physician HPI General Date/Time Provider Initiated Documentation: 12/28/23 09:20 . HPI Narrative: 43-year-old male recent intubation left AGAINST MEDICAL ADVICE presents requesting antibiotics as he was told he has a pneumonia. Presents with cough. Related Data Home Medications Medication Instructions Recorded Confirmed buprenorphine 12 mg-naloxone 3 mg 2 film buccal Q24H 08/30/23 11/25/23 sublingual film (Suboxone) gabapentin 300 mg capsule 300 mg PO TID #270 caps 11/22/23 11/25/23 sildenafil (pulm.hypertension) 20 20 mg PO DAILY PRN sexual activity 11/22/23 11/25/23 mg tablet #30 tabs amoxicillin 875 mg-potassium 1 tab PO BID 7 days #14 tabs 12/28/23 clavulanate 125 mg tablet azithromycin 250 mg tablet See Rx Instructions PO .COMPLEX #6 12/28/23 tabs Previous Rx's Medication Instructions Recorded gabapentin 300 mg capsule 300 mg PO TID #270 caps 11/22/23 sildenafil (pulm.hypertension) 20 20 mg PO DAILY PRN sexual activity 11/22/23 mg tablet #30 tabs amoxicillin 875 mg-potassium 1 tab PO BID 7 days #14 tabs 12/28/23 clavulanate 125 mg tablet azithromycin 250 mg tablet See Rx Instructions PO .COMPLEX #6 12/28/23 tabs Allergies Allergy/AdvReac Type Severity Reaction Status Date / Time No Known Allergies Allergy Unverified 11/25/23 21:37 General Stated Complaint: RespSymp JOJO: 3 Review of Systems Narrative: Review of Systems Constitutional: negative Eyes: negative ENT: negative Cardiovascular: negative Respiratory: Cough Gastrointestinal: negative : negative Musculoskeletal: negative Skin: negative Neurologic: negative Psych: negative Exam Narrative Exam Narrative: Physical Examination General: alert, awake, cooperative, resting comfortably, no acute distress HEENT: normocephalic, atraumatic; PERRL, EOM intact, conjunctiva normal; no nasal discharge; moist mucous membranes, oral and pharyngeal mucosa normal, tolerating secretions Neck: supple, trachea midline; full ROM Chest: normal to inspection Respiratory: normal respiratory effort, speaking in full sentences Skin: no lesions, rashes or trauma appreciated Neuro: AAOx3, normal speech, moving all extremities Psych: Appropriate mood and affect Course Vital Signs Vital signs: Vital Signs Temperature 37.1 C 12/28/23 09:10 Pulse 100 H 12/28/23 09:10 Respiratory Rate 18 12/28/23 09:10 Blood Pressure 151/92 H 12/28/23 09:10 Pulse Oximetry 98 12/28/23 09:10 Temperature 37.1 C 12/28/23 09:14 Temperature Source Temporal Artery Scan 12/28/23 09:14 Pulse 100 H 12/28/23 09:14 Respiratory Rate 18 12/28/23 09:14 Respiratory Effort Short of Breath 12/28/23 09:36 Respiratory Depth Normal 12/28/23 09:36 Blood Pressure 151/92 H 12/28/23 09:14 Blood Pressure Position Sitting 12/28/23 09:14 Pulse Oximetry 98 12/28/23 09:14 Oxygen Delivery Method Nasal Cannula 12/28/23 09:14 Pain Level 10 12/28/23 09:14 Medical Decision Making 43-year-old male presents requesting antibiotics as he was recently intubated and left AGAINST MEDICAL ADVICE was told by discharging team that he had a pneumonia. Has had persistent cough. Afebrile nontoxic speaking full sentences no respiratory distress. Will start on Augmentin and azithromycin Quality:SDOH Health Related Social Needs: Health related social needs personal safety Health related social needs details [facility]. [facility] All Active Problems (Updated 06/11/24 @ 09:47 by Shimon Green MD) Cough (Acute) Agitation (Acute) Hyperammonemia (Acute) Metabolic acidosis (Acute) Dehydration (Acute) Laceration of scalp (Acute) Altered mental status (Acute) Illicit drug use (Acute) Aspiration pneumonia (Acute) Rhabdomyolysis (Acute) Leukocytosis (leucocytosis) (Acute) Rhabdomyolysis (Acute) Polysubstance abuse (Chronic) Tricuspid insufficiency (Acute) Mitral regurgitation (Chronic) Dysphagia (Acute) Hepatitis C (Chronic) Chronic rhinitis (Acute) Fistula, silvia-antral (Acute) Dry tooth socket (Acute) Nasal congestion (Acute) Sinusitis (Acute) Medical History Spinal cord compression PTSD (post-traumatic stress disorder) Neuropathy History of head injury History of asthma Erectile dysfunction Bipolar disorder ADHD (attention deficit hyperactivity disorder) Arthritis Anxiety Acute type A viral hepatitis Family History Mother Substance use disorder Anxiety disorder Depression Diabetes Father Substance use disorder Depression Social History Smoking/Tobacco Use Status: Current every day Tobacco Type: cigarettes Smoking packs per day: 1 Smoking cigarettes per day: 20.0 Tobacco: How many years used: 15 Quit status: considering quitting Second Hand Exposure: No Smoking risk assessment performed?: Yes Alcohol Intake: never Drug use: Daily Substance use type: marijuana, crack/cocaine, tranquilizers, opiates, painkillers, IV drugs, methamphetamine and prescription drug Details: uses fentanyl, 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 Pets and animals: Yes (4 Dogs, 2 Cats) Pets and animals: cat(s) and dog(s) Sexually active: No Do you think of yourself as: straight/heterosexual Current gender identity: male What is your relationship status?: How often do you talk on the phone with friends or family?: never How often do you get together with friends or relatives?: never Do you belong to any clubs or organized social groups?: no Panel score (0-1 are the most socially isolated patients): 0 What type of physical activity do you participate in: none Ana/Pentecostalism: None Seatbelt use: never Helmet use: Yes Helmet use: sometimes Drive intox or ride w/intox garbage collector driver: No Do you feel safe at home: Yes Do you feel safe in your relationship?: Yes
== END 2023-12-28 09:57 | disposition home or self-care (01) ==
PROVIDERS: Emergency Provider Emergency Medicine; PCP Family Medicine
DX: R05.9 Cough, unspecified (principal); F17.210 Nicotine dependence, cigarettes, uncomplicated
CPT/HCPCS: 99283

== ENCOUNTER 2024-01-17 23:54 | Emergency (ER) | payer MEDICAID, SELFPAY ==
[2024-01-17 23:56] VITALS: BP 143/87; PULSE 78; RESP 16; TEMP 36.3; O2SAT 97
--- NOTE | 2024-01-18 | ED.GENADUL_ITS ---
Discharge Plan Disposition Patient Disposition: Home Condition: Stable Discharge Details Clinical Impression: Ear discomfort, Polysubstance abuse Primary Care Provider: Raffi Merida ED Provider: Danny Lange Meds and New Rx's Prescriptions: No Action gabapentin 300 mg capsule 300 mg PO TID Qty: 270 3RF sildenafil (pulm.hypertension) 20 mg tablet 20 mg PO DAILY PRN (Reason: sexual activity) Qty: 30 6RF buprenorphine-naloxone [Suboxone] 12-3 mg film 2 film buccal Q24H Rx Instructions: place 1 strip/tab under (each) side of tongue azithromycin 250 mg tablet See Rx Instructions .ROUTE .COMPLEX Qty: 6 0RF Rx Instructions: For 250 mg dose pack: take 500 mg today (day 1), then 250 mg for 4 days (days 2-5) Discharge Instructions Additional Instructions: Patient left the ED abruptly without discharge instructions. HPI General Mode of arrival: ambulatory . Date/Time Provider Initiated Documentation: 01/17/24 23:56 . Limitations to Documentation: no limitations . Information obtained by: patient, RN notes reviewed and old records reviewed . HPI Narrative: Patient presenting to ED with complaint of something in his ear. Initially, reporting that it was at left ear. Then stated it with both the ears. When asked what he thought might be in his ear he reported parasites. He is only looking down and will not make eye contact. He is talking in a very soft voice. He does not offer any further complaints. Related Data Home Medications Medication Instructions Recorded Confirmed buprenorphine 12 mg-naloxone 3 mg 2 film buccal Q24H 08/30/23 11/25/23 sublingual film (Suboxone) gabapentin 300 mg capsule 300 mg PO TID #270 caps 11/22/23 11/25/23 sildenafil (pulm.hypertension) 20 20 mg PO DAILY PRN sexual activity 11/22/23 11/25/23 mg tablet #30 tabs azithromycin 250 mg tablet See Rx Instructions PO .COMPLEX #6 12/28/23 tabs Previous Rx's Medication Instructions Recorded gabapentin 300 mg capsule 300 mg PO TID #270 caps 11/22/23 sildenafil (pulm.hypertension) 20 20 mg PO DAILY PRN sexual activity 11/22/23 mg tablet #30 tabs azithromycin 250 mg tablet See Rx Instructions PO .COMPLEX #6 12/28/23 tabs Allergies Allergy/AdvReac Type Severity Reaction Status Date / Time No Known Allergies Allergy Unverified 12/28/23 10:28 General Stated Complaint: EarProblem JOJO: 5 Review of Systems Unobtainable due to mental condition Exam Narrative Exam Narrative: Const: WDWN male in NAD, but seemingly very anxious and distracted. VS per triage. HEENT: NC/AT. Normal facial exam. Bilateral TMs and canals are normal. Neck: Supple. Trachea midline. Lungs: Normal respiratory effort. Neuro: A+O x 3. Cranial nerves II - XII grossly intact. No gross motor or sensory deficit. Course Vital Signs Vital signs: Vital Signs Temperature 97.3 F L 01/17/24 23:56 Pulse 78 01/17/24 23:56 Respiratory Rate 16 01/17/24 23:56 Blood Pressure 143/87 H 01/17/24 23:56 Pulse Oximetry 97 01/17/24 23:56 Temperature 97.3 F L 01/17/24 23:56 Temperature Source Temporal Artery Scan 01/17/24 23:56 Pulse 78 01/17/24 23:56 Respiratory Rate 16 01/17/24 23:56 Blood Pressure 143/87 H 01/17/24 23:56 Pulse Oximetry 97 01/17/24 23:56 Oxygen Delivery Method Room Air 01/17/24 23:56 Oxygen Flow Rate 0 01/17/24 23:56 Pain Level 5 01/17/24 23:56 Medical Decision Making Patient presenting to ED with complaint of parasites in his ears. 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 He definitely seems anxious and distracted tonight. As soon as I told him that both ears look normal he immediately jumped up push to pass me send excuse me and left the ED. his friend who had come with him to the ED apologized for him and left as well. Medical Records Medical records reviewed: Yes I reviewed the patient's medical records. Medical records narrative: Visit from last month resulting in ICU admission Quality:SDOH Health Related Social Needs: Health related social needs personal safety Health related social needs details [facility] All Active Problems (Updated 01/18/24 @ 01:11 by Danny Lange MD) Ear discomfort (Acute) Cough (Acute) Agitation (Acute) Hyperammonemia (Acute) Metabolic acidosis (Acute) Dehydration (Acute) Laceration of scalp (Acute) Altered mental status (Acute) Illicit drug use (Acute) Aspiration pneumonia (Acute) Rhabdomyolysis (Acute) Leukocytosis (leucocytosis) (Acute) Rhabdomyolysis (Acute) Polysubstance abuse (Chronic) Tricuspid insufficiency (Acute) Mitral regurgitation (Chronic) Dysphagia (Acute) Chronic rhinitis (Acute) Fistula, silvia-antral (Acute) Dry tooth socket (Acute) Nasal congestion (Acute) Sinusitis (Acute) Medical History Hepatitis C Spinal cord compression PTSD (post-traumatic stress disorder) Neuropathy History of head injury History of asthma Erectile dysfunction Bipolar disorder ADHD (attention deficit hyperactivity disorder) Arthritis Anxiety Family History Mother Substance use disorder Anxiety disorder Depression Diabetes Father Substance use disorder Depression Social History Smoking/Tobacco Use Status: Current every day Tobacco Type: cigarettes Smoking packs per day: 1 Smoking cigarettes per day: 20.0 Tobacco: How many years used: 15 Quit status: considering quitting Second Hand Exposure: No Smoking risk assessment performed?: Yes Alcohol Intake: never Drug use: Daily Substance use type: marijuana, crack/cocaine, tranquilizers, opiates, painkillers, IV drugs, methamphetamine and prescription drug Details: uses fentanyl, 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 Pets and animals: Yes (4 Dogs, 2 Cats) Pets and animals: cat(s) and dog(s) Sexually active: No Do you think of yourself as: straight/heterosexual Current gender identity: male What is your relationship status?: How often do you talk on the phone with friends or family?: never How often do you get together with friends or relatives?: never Do you belong to any clubs or organized social groups?: no Panel score (0-1 are the most socially isolated patients): 0 What type of physical activity do you participate in: none Ana/Spiritism: None Seatbelt use: never Helmet use: Yes Helmet use: sometimes Drive intox or ride w/intox driver/merchandiser: No Do you feel safe at home: Yes Do you feel safe in your relationship?: Yes
== END 2024-01-18 00:08 | disposition home or self-care (01) ==
PROVIDERS: Emergency Provider Emergency Medicine; PCP Family Medicine
DX: H93.8X2 Other specified disorders of left ear (principal); F19.90 Other psychoactive substance use, unspecified, uncomplicated
CPT/HCPCS: 99282

== ENCOUNTER 2024-03-03 17:27 | Emergency (ER) | payer MEDICAID, SELFPAY ==
[2024-03-03] VITALS (15 sets, daily range): BP systolic 117–123; BP diastolic 57–75; PULSE 66–97; RESP 11–20; TEMP 37; O2SAT 92–97
--- NOTE | 2024-03-03 20:15 | DI.RAD_ITS ---
Exam(s) XR THORACIC SPINE COMPLETE EXAM: XR THORACIC SPINE COMPLETE CLINICAL HISTORY: BACK PAIN. TECHNIQUE: 2D digital imaging was performed of the thoracic spine. Three views were obtained. AP, swimmer's and lateral views were obtained. COMPARISON: CR XR CHEST 2V PA LATERAL from 01/28/2023 FINDINGS: BONES: There is no fracture or destructive lesion. The vertebral bodies and posterior elements are un remarkable. DISKS:There is a mild left convex curvature centered at the thoracolumbar junction. There are degene rative changes seen throughout the thoracic spine characterized by joint space narrowing and endplate osteophytes. SOFT TISSUE: Visualized lungs are clear. IMPRESSION: Degenerative changes in the lumbar spine. No acute fracture or subluxation. DATA REPOSITORY: RADIATION DOSE DELIVERED:
--- NOTE | 2024-03-03 20:15 | DI.RAD_ITS ---
Exam(s) XR LUMBAR SPINE AP, LAT EXAM: XR LUMBAR SPINE AP, LAT CLINICAL HISTORY: BACK PAIN. TECHNIQUE: 2D digital imaging was performed of the lumbar spine. Two images were obtained. And lat eral views were obtained. COMPARISON: CT CT CHEST/ABD/PEL W from 12/25/2023 FINDINGS: BONES: No fracture or destructive lesion. Note is made of a limbus L3 vertebral body. No facet hyper trophy identified. Endplate osteophytes are seen at several levels of the lumbar spine. DISKS: There is disc space narrowing at T12-L1, L1-L2 and L2-L3. ALIGNMENT: Lumbar spinal alignment is within normal limits. No spondylolysis or spondylolisthesis. SOFT TISSUE: Normal. IMPRESSION: 1. No acute fracture or subluxation. 2. Degenerative changes seen in the lumbar spine. DATA REPOSITORY: RADIATION DOSE DELIVERED:
[2024-03-03] MEDS: Silver sulfaDIAZINE 1% 25 GM TUBE TP (20:43)
--- NOTE | 2024-03-03 21:16 | W.ED.GENAD ---
Discharge Plan Disposition Patient Disposition: Home Condition: Stable Discharge Details Clinical Impression: Chronic back pain Primary Care Provider: Raffi Merida ED Provider: Tiesha Dawson Home Meds and New Rx's Prescriptions: New naloxone [Narcan] 4 mg/actuation spray,non-aerosol 4 mg intranasal Q2M PRNQty: 2 5RF Rx Instructions: spray 1 dose into ONE nostril; alternate nostrils w each dose until help arrives No Action gabapentin 300 mg capsule 300 mg PO TID Qty: 270 3RF sildenafil (pulm.hypertension) 20 mg tablet 20 mg PO DAILY PRN (Reason: sexual activity) Qty: 30 6RF buprenorphine-naloxone [Suboxone] 12-3 mg film 2 film buccal Q24H Rx Instructions: place 1 strip/tab under (each) side of tongue azithromycin 250 mg tablet See Rx Instructions .ROUTE .COMPLEX Qty: 6 0RF Rx Instructions: For 250 mg dose pack: take 500 mg today (day 1), then 250 mg for 4 days (days 2-5) Discharge Instructions Instructions: Low Back Pain ED Additional Instructions: can take Motrin or Tylenol as needed for pain. Avoid using IV drugs if possible and follow-up with community resources for sobriety on opiate treatment programs If you continue to use IV opiates, please have Narcan on your person at all times. This can be lifesaving Avoid using the heat pad for prolonged periods as it can cause skin injury. You were provided the Silvadene cream to apply to this area to help with the blistering If you develop any fevers, severe pain, loss of bowel or bladder, please return to the emergency department as you are at high risk for developing severe infections in your back HPI General Date/Time Provider Initiated Documentation: 03/03/24 17:35. Limitations to Documentation: no limitations. Information obtained by: patient. HPI Narrative: 43-year-old gentleman with past medical history of IV drug abuse presents for evaluation of back pain. Reports that he has pain in his mid back. He has been taking Tylenol and applying heat pack to the area without improvement. He reports that he slipped a disc. He denies any falls trauma or injury that may have caused this. He denies any prior back surgery. He reports that he has tingling in his hands and feet, but denies any sensory loss or weakness. Denies any loss of bowel or bladder. Denies any weakness in his legs. Related Data Home Medications ?Medication ?Instructions ?Recorded ?Confirmed buprenorphine 12 mg-naloxone 3 mg 2 film buccal Q24H 08/30/23 11/25/23 sublingual film (Suboxone) gabapentin 300 mg capsule 300 mg PO TID #270 caps 11/22/23 11/25/23 sildenafil (pulm.hypertension) 20 20 mg PO DAILY PRN sexual activity 11/22/23 11/25/23 mg tablet #30 tabs azithromycin 250 mg tablet See Rx Instructions PO .COMPLEX #6 12/28/23 tabs naloxone 4 mg/actuation nasal 4 mg intranasal Q2M PRN #2 ea 03/03/24 spray (Narcan) Previous Rx's ?Medication ?Instructions ?Recorded gabapentin 300 mg capsule 300 mg PO TID #270 caps 11/22/23 sildenafil (pulm.hypertension) 20 20 mg PO DAILY PRN sexual activity 11/22/23 mg tablet #30 tabs azithromycin 250 mg tablet See Rx Instructions PO .COMPLEX #6 12/28/23 tabs naloxone 4 mg/actuation nasal 4 mg intranasal Q2M PRN #2 ea 03/03/24 spray (Narcan) Allergies Allergy/AdvReac Type Severity Reaction Status Date / Time No Known Allergies Allergy Unverified 12/28/23 10:28 General Stated Complaint: Nk/Back Pain JOJO: 3 Exam Narrative Exam Narrative: Review of Systems: All systems reviewed & are unremarkable except as noted in HPI and below Well-developed, no acute distress afebrile NCAT PERRL, normal conjunctiva RRR no murmu Unlabored respiratory effort CTAB Nondistended abdomen Midline back without tenderness, step-off or deformity, midline back there is a few scattered areas of blister that the patient reports is because he used a heating pad Normal sensation and strength in all 4 extremities, 5 out of 5 strength in lower extremities Course Vital Signs Vital signs: Vital Signs Temperature 37.0 C 03/03/24 17:29 Pulse 97 H 03/03/24 17:29 Respiratory Rate 18 03/03/24 17:29 Blood Pressure 117/75 03/03/24 17:29 Pulse Oximetry 95 03/03/24 17:29 Temperature 37.0 C 03/03/24 17:29 Temperature Source Tympanic 03/03/24 17:29 Pulse 97 H 03/03/24 17:29 Respiratory Rate 18 03/03/24 17:29 Respiratory Effort Normal 03/03/24 20:12 Blood Pressure 117/75 03/03/24 17:29 Blood Pressure Position Sitting 03/03/24 17:29 Pulse Oximetry 95 03/03/24 17:29 Oxygen Delivery Method Room Air 03/03/24 17:29 Oxygen Flow Rate 0 03/03/24 17:29 Pain Level 10 03/03/24 17:29 Medical Decision Making emergent evaluation of atraumatic back pain. Patient does have risk factors with his IV injection drug use, but does not have any symptoms concerning for systemic illness or fever. He has no neurologic symptoms that are concerning for possible cauda equina or epidural abscess. X-ray imaging obtained to evaluate for bony process. Joint spaces well-maintained and no lytic lesions noted. patient offered pain control, but declined. It is noted that he has some skin blistering from laying on the heating pad. He was provided Silvadene cream for this. Given his ongoing IV injection drug use, he was provided Narcan as well Quality:[facility] Health Related Social Needs: Health related social needs personal safety Health related social needs details [facility] ([place], [place]) in June. [facility] All Active Problems Chronic back pain (Acute) Agitation (Acute) Hyperammonemia (Acute) Metabolic acidosis (Acute) Laceration of scalp (Acute) Altered mental status (Acute) Illicit drug use (Acute) Aspiration pneumonia (Acute) Rhabdomyolysis (Acute) Leukocytosis (leucocytosis) (Acute) Rhabdomyolysis (Acute) Polysubstance abuse (Chronic) Tricuspid insufficiency (Acute) Mitral regurgitation (Chronic) Dysphagia (Acute) Chronic rhinitis (Acute) Fistula, silvia-antral (Acute) Dry tooth socket (Acute) Nasal congestion (Acute) Sinusitis (Acute) Medical History Hepatitis C Spinal cord compression PTSD (post-traumatic stress disorder) Neuropathy History of head injury History of asthma Erectile dysfunction Bipolar disorder ADHD (attention deficit hyperactivity disorder) Arthritis Anxiety Family History Mother Substance use disorder Anxiety disorder Depression Diabetes Father Substance use disorder Depression Social History Smoking/Tobacco Use Status: Current every day Tobacco Type: cigarettes Smoking packs per day: 1 Smoking cigarettes per day: 20.0 Tobacco: How many years used: 15 Quit status: considering quitting Second Hand Exposure: No Smoking risk assessment performed?: Yes Alcohol Intake: never Drug use: Daily Substance use type: marijuana, crack/cocaine, tranquilizers, opiates, painkillers, IV drugs, methamphetamine and prescription drug Details: uses fentanyl, 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 Pets and animals: Yes (4 Dogs, 2 Cats) Pets and animals: cat(s) and dog(s) Sexually active: No Do you think of yourself as: straight/heterosexual Current gender identity: male What is your relationship status?: How often do you talk on the phone with friends or family?: never How often do you get together with friends or relatives?: never Do you belong to any clubs or organized social groups?: no Panel score (0-1 are the most socially isolated patients): 0 What type of physical activity do you participate in: none Ana/Yazidism: None Seatbelt use: never Helmet use: Yes Helmet use: sometimes Drive 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
--- NOTE | 2024-03-03 21:36 | DI.VRAD_ITS ---
PROCEDURE INFORMATION: Exam: XR Thoracic Spine Exam date and time: 03/03/2024 8:38 PM Age: 43 years old Clinical indication: Pain in thoracic spine; Additional info: Back pain TECHNIQUE: Imaging protocol: Radiologic exam of the thoracic spine. Views: 3 views. COMPARISON: CR XR PORTABLE CHEST AP POST LINE 12/26/2023 10:57 AM FINDINGS: Bones/joints: Vertebral body heights are within normal limits. No evidence of compression fracture. No evidence of acute fracture. Soft tissues: Unremarkable. IMPRESSION: Vertebral body heights are within normal limits. No evidence of compression fracture. No evidence of acute fracture. Dictated and Authenticated by: Jordana Haque MD. Ordering:AlfreditoEVIE Bro MD
--- NOTE | 2024-03-03 21:39 | DI.VRAD_ITS ---
PROCEDURE INFORMATION: Exam: XR Lumbosacral Spine Exam date and time: 03/03/2024 8:39 PM Age: 43 years old Clinical indication: Low back pain TECHNIQUE: Imaging protocol: Radiologic exam of the lumbosacral spine. Views: 2 or 3 views. COMPARISON: CT CHEST/ABD/PEL W 12/25/2023 11:19 PM FINDINGS: Bones/joints: Vertebral body heights are within normal limits. No evidence of compression fracture. No evidence of acute fracture. Moderately severe chronic degenerative loss of disc height at L1-L2 level. Soft tissues: Unremarkable. IMPRESSION: Vertebral body heights are within normal limits. No evidence of compression fracture. No evidence of acute fracture. Dictated and Authenticated by: Jordana Haque MD. Ordering:AGAPITO Bro MD
== END 2024-03-03 22:03 | disposition home or self-care (01) ==
PROVIDERS: Emergency Provider Emergency Medicine; PCP Family Medicine
DX: M54.9 Dorsalgia, unspecified (principal); G89.29 Other chronic pain; T21.23XA Burn of second degree of upper back, initial encounter; X19.XXXA Contact with other heat and hot substances, initial encounter; F19.10 Other psychoactive substance abuse, uncomplicated
CPT/HCPCS: 99283; 72072; 72100; 99284

== ENCOUNTER 2024-05-01 12:52 | Outpatient (CLI) | payer MEDICAID, SELFPAY ==
[2024-05-01 12:36] LABS: Abs Immature Grans 0.04 10^3/uL (0.0-0.06); Absolute Basophil Count 0.05 10^3/uL (0.0-0.2); Absolute Eosinophil Count 0.34 10^3/uL (0.0-0.7); Absolute Lymphocyte Count 1.37 10^3/uL (1.2-3.4); Absolute Monocyte Count 0.52 10^3/uL (0.1-0.8); Absolute Neutrophil Count 4.43 10^3/uL (1.2-6.7); Basophils % 0.7 %; HCT 41.5 % (40.0-50.0); Immature Grans % 0.6 %; Lymphocytes % 20.3 %; MCH 27.6 pg (27.0-33.0); MCHC 33.7 % (32.0-36.0); MCV 82 fL (80-95); MPV 9.2 fL (8.0-11.0); Monocytes % 7.7 %; Neutrophils % 65.7 %; Platelet Count 334 10^3/uL (130-400); RBC 5.08 10^6/uL (4.36-5.78); RDW 16.3 % (11.8-14.1); RDW-SD 48.7 fL; WBC 6.75 10^3/uL (4.4-10.8)
[2024-05-01 13:08] LABS: Hemoglobin A1C 5.9 % (<5.7)
[2024-05-01 13:28] LABS: *AMPHETAMINES SCREEN URINE Negative (Negative); *BARBITURATES SCREEN URINE Negative (Negative); *BENZODIAZEPINES SCREEN URINE Negative (Negative); Cannabinoids THC Positive (Negative); Cocaine Screen,Urine Negative (Negative); METHADONE URINE SCREEN Negative (Negative); OPIATES URINE SCREEN Negative (Negative)
[2024-05-01 13:39] LABS: Tricyclic Antidepressants Negative (Negative)
[2024-05-01 13:41] LABS: ALT 51 U/L (16-63); AST 33 U/L (15-37); Albumin 3.5 g/dL (3.4-5.0); Alkaline Phosphatase 85 U/L (46-116); Anion Gap 10.2 mmol/L (3-11); BUN 12 mg/dL (7-18); Bilirubin, Total 0.51 mg/dL (0.2-1.0); CO2 26.8 mmol/L (21.0-32.0); CREATININE 0.8 mg/dL (0.70-1.30); Calcium 9.8 mg/dL (8.5-10.1); Calculated LDL 126 mg/dL (<100); Chloride 104 mmol/L (98-107); Cholesterol 198 mg/dL (<200); Estimated GFR 112.61 (mL/min/1.73m2); Glucose 130 mg/dL (74-106); HDL Cholesterol 52 mg/dL (40-60); Sodium 141 mmol/L (136-145); TSH (W/Ref FT4) 1.53 uIU/mL (0.36-3.74); Total Protein 8.9 g/dL (6.4-8.2); Triglyceride 104 mg/dL (<150)
[2024-05-02 09:44] LABS: Hepatitis B Surface Ab Positive (See Note)
[2024-05-02 09:50] LABS: Hepatitis B Surface Ag Negative (Negative)
[2024-05-02 10:24] LABS: Hep B Core Antibody Negative (Negative)
[2024-05-02 10:33] LABS: HIV-1/2 Ag & Ab Screen Negative (Negative)
[2024-05-02 10:52] LABS: Syphilis Serology (RPR) Negative (Negative)
[2024-05-02 12:08] LABS: Hep A Total Ab w Rflx IgM Positive (Negative); Hepatitis C Ab w Rflx HCV PCR Reactive (Negative)
[2024-05-02 12:15] LABS: Chlamydia Result Negative (Negative); GC Result Negative (Negative)
[2024-05-02 13:18] LABS: Hep A Antibody IgM Negative (Negative)
[2024-05-03 11:53] LABS: HCV RNA Detection Quantitative 474000 IU/mL (Undetected); HCV RNA Qualitative Detected (Undetected)
[2024-05-03 13:31] LABS: TB Interpretation Negative (Negative); TB1 Ag minus Nil 0.19 IU/ml; TB2 Ag minus Nil 0.08 IU/mL
[2024-05-06 12:49] LABS: 2-Hydroxy Ethyl Flurazepam Not Detected ng/mL (Cutoff: 10); 3,4-methylenedioxyamphetamine Not Detected ng/mL (Cutoff: 100); 3,4-methylenedioxyethylampheta Not Detected ng/mL (Cutoff: 100); 3,4-methylenedioxymethamphetam Not Detected ng/mL (Cutoff: 100); 6-monoacetylmorphine Not Detected ng/mL (Cutoff: 25); Alpha-Hydroxy Midazolam Not Detected ng/mL (Cutoff: 10); Alpha-Hydroxy Triazolam Not Detected ng/mL (Cutoff: 10); Alpha-Hydroxyalprazolam Not Detected ng/mL (Cutoff: 10); Alpha-OH-alprazolam Glucuronid Not Detected ng/mL (Cutoff: 50); Alprazolam Not Detected ng/mL (Cutoff: 10); Amphetamine Not Detected ng/mL (Cutoff: 100); Barbiturates Negative ng/mL (Cutoff: 200); Buprenorphine Not Detected ng/mL (Cutoff: 5); Chlordiazepoxide Not Detected ng/mL (Cutoff: 10); Clobazam Not Detected ng/mL (Cutoff: 10); Clonazepam Not Detected ng/mL (Cutoff: 10); Cocaine Negative ng/mL (Cutoff: 150); Codeine Not Detected ng/mL (Cutoff: 25); Comment Normal; Diazepam Not Detected ng/mL (Cutoff: 10); Dihydrocodeine Not Detected ng/mL (Cutoff: 25); EDDP Not Detected ng/mL (Cutoff: 25); Ephedrine Not Detected ng/mL (Cutoff: 100); Fentanyl Not Detected ng/mL (Cutoff: 2); Flurazepam Not Detected ng/mL (Cutoff: 10); Hydrocodone Not Detected ng/mL (Cutoff: 25); Hydromorphone Not Detected ng/mL (Cutoff: 25); Hydromorphone-3-beta-glucuroni Not Detected ng/mL (Cutoff: 100); Lorazepam Not Detected ng/mL (Cutoff: 10); Lorazepam Glucuronide Not Detected ng/mL (Cutoff: 50); Meperidine Not Detected ng/mL (Cutoff: 25); Methadone Not Detected ng/mL (Cutoff: 25); Methamphetamine Not Detected ng/mL (Cutoff:100); Methylphenidate Not Detected ng/mL (Cutoff: 20); Midazolam Not Detected ng/mL (Cutoff: 10); Morphine Not Detected ng/mL (Cutoff: 25); N-Desmethylclobazam Not Detected ng/mL (Cutoff: 200); N-desmethyltapentadol Not Detected ng/mL (Cutoff: 50); Naloxone Not Detected ng/mL (Cutoff: 25); Norbuprenorphine Present ng/mL (Cutoff: 5); Norfentanyl Not Detected ng/mL (Cutoff: 2); Norhydrocodone Not Detected ng/mL (Cutoff: 25); Normeperidine Not Detected ng/mL (Cutoff: 25); Noroxycodone Not Detected ng/mL (Cutoff: 25); Noroxymorphone Not Detected ng/mL (Cutoff: 25); O-desmethyltramadol Not Detected ng/mL (Cutoff: 25); Oxazepam Glucuronide Not Detected ng/mL (Cutoff: 50); Phencyclidine (PCP) Not Detected ng/mL (Cutoff: 20); Phentermine Not Detected ng/mL (Cutoff: 100); Prazepam Not Detected ng/mL (Cutoff: 10); Propoxyphene Not Detected ng/mL (Cutoff: 25); Pseudoephedrine Not Detected ng/mL (Cutoff: 100); Ritalinic Acid Not Detected ng/mL (Cutoff: 100); Specific Gravity 1.015; Tapentadol Not Detected ng/mL (Cutoff: 25); Temazepam Not Detected ng/mL (Cutoff: 10); Temazepam Glucuronide Not Detected ng/mL (Cutoff: 50); Tetrahydrocannabinol Presumptive Positive ng/mL (Cutoff: 50); Tramadol Not Detected ng/mL (Cutoff: 25); Triazolam Not Detected ng/mL (Cutoff: 10); Zolpidem Phenyl-4-Carboxy acid Not Detected ng/mL (Cutoff: 10); pH 5.6
== END 2024-05-01 12:53 | disposition home or self-care (01) ==
LOC: LBO 12:52
PROVIDERS: PCP Family Medicine; Visit Provider Physician Assistant Surgical
DX: Z11.4 Encounter for screening for human immunodeficiency virus [HIV] (principal); Z11.59 Encounter for screening for other viral diseases; F11.20 Opioid dependence, uncomplicated; F31.9 Bipolar disorder, unspecified
CPT/HCPCS: 36415; 80053; 80061; 80307; 80347; 80364; 86704; 86706; 86709; 86803; 87340; 87389; 87491; 87522; 87591; 83036; 84443; 85025; 86480; 86592

== ENCOUNTER 2024-07-02 11:45 | Inpatient (IN) | payer MEDICAID, SELFPAY ==
--- OUTSIDE RECORDS SUMMARY | 2024-07-02 14:28 | XMS_ITS | Encounter Summary ---
[place] [address] Care Team Providers Care Soa Architect Name Role Phone Milo Baer MD Primary Care Provider [phone] Reason for Referral * Consultation (Routine) - Closed Specialty Diagnoses / Procedures Referred By Contac t Referred To Contact Cardiology Diagnoses PFO (patent foramen ovale) STRUCTURAL CARD PFO closure Garry Ortiz MD [facility] [place] [address] [facility] Cardiology [address] [place] [phone] Referral ID Status Reason Start Date Expiration Date V isits Requested Visits Authorized [id number] Closed Consult, Test & Treat 11/02/2023 11/01/2024 1 1 Reason for Visit * Reason Comments Edema * Auth/Cert (Routine) Specialty Diagnoses / Procedures Referred By Contac t Referred To Contact Diagnoses Cellulitis Procedures EMERGENCY IPI Zachary Glover MD [facility] [place] [address] [facility] Referral ID Status Reason Start Date Expiration Date Visits Re quested Visits Authorized [id number] 1 1 Encounter Details Date Type Department Care Team (Late st Contact Info) Description 10/31/2023 11:28 PM EDT - 11/02/2023 1:42 PM EDT Hospital Encounter Neurosciences and ENT Unit Level 5 [place] [id number] Xiomara Delaney MD [facility] [place] [address] Zachary Glover MD [facility] [place] [address] Edema, unspecified type; Bacteremia due to Staphylococcus aureus; PFO (patent foramen ovale) Discharge Disposition: Home Social History Tobacco Use Types Packs/Day Years Used Date Smoking Tobacco: Every Day Cigarettes Smokeless Tobacco: Never Alcohol Use Standard Drinks/Week Comments Not Currently 0 (1 standard drink = 0.6 oz pur e alcohol) [facility] Utilities Answer Date Recorded In the past 12 months has th e [place], gas, oil, or water [employer] threatened to shut off services in your home? No 11/01/2023 Hunger Vital Sign Answer Date Recorded Within the past 12 months, y ou worried that your food would run out before you got the money to buy more. Never true 11/01/19 24 Within the past 12 months, t he food you bought just didn't last and you didn't have money to get more. Never true 11/01/2023 PRAPARE - Transportation Answer Date Re corded In the past 12 months, has l ack of transportation kept you from medical appointments or from getting medications? No 10/17 In the past 12 months, has l ack of transportation kept you from meetings, work, or from getting things needed for daily living? No 11/01/2023 Housing Stability Vital Sign Answer Mickey e Recorded In the last 12 months, was t here a time when you were not able to pay the mortgage or rent on time? No 11/01/2023 In the last 12 months, how many places have you lived? 1 11/01/2023 In the last 12 months, was t here a time when you did not have a steady place to sleep or slept in a senior care (including now)? No 11/01/2023 DH IPV Inpatient Questions Answer Date Recorded Does Anyone Try to Keep You From Having Contact with Others or Doing Things Outside Your Home? no 11/01/2023 Feels Threatened by Someone no 10/17 Feels Unsafe at Home or Work/School no 11/01/2023 Physical Signs of Abuse Present no 11/01/2023 Sex and Gender Information Value Date Recorded Sex Assigned at Not on file Gender Identity Not on file Sexual Orientation Not on file documented as of this encounter Last Filed Vital Signs Vital Sign Reading Time Taken Comments Blood Pressure 135/84 11/02/2023 12:00 PM EDT Pulse 70 11/02/2023 10:30 AM EDT Temperature 36.9 ??C (98.4 ??F) 11/02/2023 12:00 PM E DT Respiratory Rate 17 11/02/2023 12:00 PM EDT Oxygen Saturation 98% 11/02/2023 12:00 PM EDT Inhaled Oxygen Concentration - - Weight 80.7 kg (178 lb) 10/31/2023 11:37 PM EDT Height 175.3 cm (5' 9) 10/31/2023 11:37 PM EDT Body Mass Index 26.29 10/31/2023 11:37 PM EDT documented in this encounter Discharge Summaries * Mike Dean MD - 11/02/2023 1:04 PM EDT Discharge Summary Patient Name: Marcos Camejo Patient Age: 43 y.o. Language: Nicaraguan Race: White Ethnicity: Not nor Admit date: 10/31/2023 Discharge date and time: 11/03/2023 11:41 AM Attending Physician: No att. providers found Discharge Physician: Mike Dean MD Follow-up Recommendations for Providers: -Patient found to have PFO on MARIBEL this admission. Recommended patient stay for further cardiology evaluation however patient felt strongly about leaving immediately. Given he is likely not a good surgical candidate due to active IVDU, patient was discharged on PO Lasix 10mg and referred to cardiology outpatient. -Patient sent home on 10-day course of PO Keflex for cellulitis of his hands. No evidence of bacteremia or endocarditis. Inpatient Provider Contact Information: For questions regarding this document or issues relating to this hospitalization on the Medical Service, please contact your inpatient physician through the [facility] . Issues afterhours and on weekends will be handled by the Hospitalist staff on-call. Discharge Diagnoses (Hospital Problems) and Secondary Diagnoses (Chronic Problems): Active Hospital Problems Diagnosis Cellulitis Resolved Hospital Problems No resolved problems to display. Active Non-Hospital Problems Diagnosis Leg swelling Bacteremia due to Staphylococcus aureus Operations/Major Procedures: Operations: Procedure(s): TRANSESOPHAGEAL ECHOCARDIOGRAM (WRVU 2.3) 11/02/2023 Other Major Procedures: History of Presentation: Marcos Camejo is a 43 year old male with a past medical history of IVDU (methamphetamine, opiates), OUD (on Suboxone), untreated Hep C, and hand cellulitis who was just admitted for workup of possible endocarditis and left AMA, now representing for admission. Marcos initially presented on October 27 with primary complaints of extremity swelling and inflamedwounds. He was treated for possible cellulitis along with possible endocarditis, given findings of worsened MR & TR, and was additionally diuresed for volume overload. Marcos was being followed for his substance use history and was being treated for fentanyl/xylazine withdrawal. He was planned t o undergo a MARIBEL to further assess for possible endocarditis, however left AMA prior to this occurring. On interview tonight, Marcos notes that he had an anxiety attack and therefore had to leave the hospital. After this resolved and with discussion with his significant other, he felt ready to come up.Marcos's only current symptom is heavier breathing. He notes that this was much worse upon admission and improved with diuresis, but is still somewhat present now. Hospital Course: #Bilateral hand cellulitis Patient treated with Ancef 2g q8h while inpatient. His blood cultures had no growth to date and hisTEE on 11/01 had no evidence of endocarditis. He was prescribed a ten-day course of Keflex on discharge. #Tricuspid Regurgitation #Mitral Regurgitation #Elevated proBNP #Bilateral lower extremity swelling Patient was managed during previous admission for possible heart failure. (See prior d/c summary from 10/30). His MARIBEL on 10/31 showed a PFO and again redemonstrated his MR and TR. After his MARIBEL patientfelt very strongly about leaving the hospital. Cardiology recommended to continue diuresis on him, so he was discharged on 10mg PO Lasix and referred to cardiology clinic for follow-up. #OUD Patient left previous admission AMA to go use xylazine/fentanyl and then represented eight hours later. He was monitored for withdrawal symptoms during this admission but did not exhibit any. He frequently refused many aspects of care during this admisison, including vital signs/nursing assessments, restarting on low-dose suboxone and BIT re-evaluation. Vital Signs at Discharge: BP: 135/84, Heart Rate: 70, Temp: 36.9 ??C (98.4 ??F), Resp: 17, BMI (Calculated): 26.28 Height: 175.3 cm (5' 9) (10/31/232336) Weight: 80.7 kg (178 lb) (10/31/232336) Functional and Cognitive Status: at baseline Important Studies and Lab Data: Labs: Recent Labs 10/31/2330010/30/23 0951 10/29/23348 WBC 6.0 5.5 6.6 HGB 10.1* 10.4* 9.5* PLATELET 260 226 239 Recent Labs 10/31/2330010/30/23 0951 10/29/23 034 NA 139 136 139 K 3.4* 4.1 4.0 CL 108* 105 104 CO2 22 18* 28 BUN 8* 13 16 CREATININE 0.78* 0.75* 0.82 Recent Labs 10/31/2330010/30/23 0951 10/29/23 0349 10/28/23 1040 CALCIUM 8.2* 8.3* 8.0* 8.5 MAGNESIUM -- -- -- 0.79 Recent Labs 10/31/2330010/30/23 0951 10/29/23 0349 AST 119* 124* 172* ALT 104* 112* 178* ALKPHOS 98 93 103 BILITOT <0.2* 0.3 0.3 BILIDIR 0.1 0.1 0.1 No results for input(s): TROPONINT, CK in the last 168 hours. No results for input(s): PHART, ORF1BMI, PO2ART, HSL3GDT in the last 168 hours. Pending Studies and Lab Data: Discharge Conditions/Prognosis: stable Discharge to: home Updated Allergies/ADRs: Allergies Allergen Reactions Penicillins Hives Tolerated ceftriaxone 09/2023 Immunizations Given this Hospitalization: There is no immunization history on file for this patient. Discharge Medications: Your Medications New Medications Dose Details cephALEXin 500 mg capsule Commonly known as: Keflex Take 1 capsule by mouth 4 times daily for 10 days. 500 mg Quantity: 40 capsule Refills: 0 furosemide 20 mg tablet Commonly known as: Lasix Take 0.5 tablets by mouth daily for 30 days. 10 mg Quantity: 15 tablet Refills: 0 naloxone 4 mg/actuation Lincoln, Non-Aerosol Commonly known as: Narcan 1 each by Intra-nasally route as needed (Opioid Rescue). 4 mg (contents of 1 nasal spray) as a single dose in one nostril; may repeat every 2 to 3 minutes in alternating nostrils until medical assistance becomes available 1 each Quantity: 2 each Refills: 0 Continued medications, unchanged Dose Details Suboxone 12-[address] 2 Film under the tongue daily. Generic drug: buprenorphine-naloxone 2 Film Refills: 0 Vitamin D 1,000 unit tablet Take 1 tablet by mouth daily. Generic drug: cholecalciferol 1 tablet Refills: 0 STOPPED Medications ibuprofen 200 mg tablet Commonly known as: Advil Smoking Status at Discharge: Social History Tobacco Use Smoking Status Every Day Packs/day: 1 Types: Cigarettes Smokeless Tobacco Never Instructions Given to Patient at Discharge: Patient Instructions Instructions on Discharge to Home Why you were hospitalized - you were hospitalized for infection in the soft tissues of your hands as well as shortness of breath and swelling concerning for possible infection of the valves of your heart (based on your history of intravenous drug use). You were treated with antibiotics while you were here and were monitored for withdrawal symptoms. You underwent an ultrasound of your heart to assess for valve infection - there was no evidence of infection however it was found that you have a hole in the wall the left and right sides of your heart, which may be contributing to some volume overload causing your symptoms. We talked with cardiology who did not feel you would likely be a good surgical candidate, and so felt it would be reasonable for you to leave and follow-up with them in clinic. You are being sent home with a course of oral antibiotics to finish treating your infection as well as an oral diuretic pill called Lasix (furosemide) to be taken as needed for shortness of breath and leg swelling. Please complete the full course of antibiotics as prescribed, if you s top early your infection may come back. Call your doctor or seek medical attention if you develop the following - chest pain, shortness of breath, feeling dizzy upon standing, passing out, diarrhea, constipation lasting longer than 2 days,fevers (temperature over 100.3), chills, abdominal pain, vomiting, difficulty or discomfort when urinating, bloody or black bowel movements, or any other acute or concerning symptom. Activity level - No restrictions Diet - No change in previous diet Driving - As before hospitalization Shower/Bath - As before hospitalization Wound Care - None Home Oxygen therapy - not indicated Your Discharge Medication List Your Medications New Medications Dose Details cephALEXin 500 mg capsule Commonly known as: Keflex Take 1 capsule by mouth 4 times daily for 10 days. 500 mg Quantity: 40 capsule Refills: 0 furosemide 20 mg tablet Commonly known as: Lasix Take 0.5 tablets by mouth daily for 30 days. 10 mg Quantity: 15 tablet Refills: 0 naloxone 4 mg/actuation [place], Non-Aerosol Commonly known as: Narcan 1 each by Intra-nasally route as needed (Opioid Rescue). 4 mg (contents of 1 nasal spray) as a single dose in one nostril; may repeat every 2 to 3 minutes in alternating nostrils until medical assistance becomes available 1 each Quantity: 2 each Refills: 0 Continued medications, unchanged Dose Details Suboxone 12-[address] 2 Film under the tongue daily. Generic drug: buprenorphine-naloxone 2 Film Refills: 0 Vitamin D 1,000 unit tablet Take 1 tablet by mouth daily. Generic drug: cholecalciferol 1 tablet Refills: 0 STOPPED Medications ibuprofen 200 mg tablet Commonly known as: Advil Follow-up: No future appointments. We have placed a referral to cardiology clinic to follow-up with them aboutyour heart. You should be getting a call from them this week to schedule your appointment. If you do not hear from them, please call the hospital at [phone] and ask to be connected to the cardiology clinic schedulers. [place] Inpatient Medical [place] at [facility] Name(s) of your inpatient provider(s): MD Garry Stevens MD, Mike Dean MD Your Primary Care Provider: Milo Baer MD [phone] For questions regarding this document or issues relating to this hospitalization on the Medical Service, please contact your inpatient physician through the [facility] . Issues afterhours and on weekends will be handled by the Hospitalist staff on-call. The Section of Hospital Medicine hopes you have a safe and stress free transition out of the hospital. As an additional safeguard to help this transition happen seamlessly we have created a tool to help us stay in communication in case there are any questions or concerns after your discharge. If you are not being discharged to another care setting, where they will take over your medical care, please anticipate a brief questionnaire from our Section that will help us ensure you do not have any issues with your discharge and are as safe and healthy as possible. This questionnaire will be sent out after your discharge, and will be delivered via text primarily but also email if texting is not possible. If there do happen to be any issues or concerns once you leave [facility], we apologize for any undue stress this may cause. Please do not hesitate to call your PCP office or seek further medical assistance if there are any immediate concerns aboutyour health. This questionnaire is not meant to provide immediate access to a physician, but has been created to help us ease the transition out of the hospital. Someone from our Section will reach out after the questionnaire is completed if you have raised any concerns, or have requested a callback, to help ensure your concerns are addressed and a plan is made to keep you safe and healthy. Thankyou in advance for your time completing this questionnaire. General Instructions None Future Appointments and Orders Future Orders Complete By Expires Referral to Cardiology [REF12 Custom] As directed Process Instructions: If no progress note charted, please enter Clinical details in comments. Scheduling Instructions: Questions: My question or request is: PFO closure? Discharge References/Attachments None documented in this encounter Discharge Instructions * Patient Instructions* Mike Dean MD - 11/01/2023 10:10 AM EDT Instructions on Discharge to Home Why you were hospitalized - you were hospitalized for infection in the soft tissues of your hands as well as shortness of breath and swelling concerning for possible infection of the valves of your heart (based on your history of intravenous drug use). You were treated with antibiotics while you were here and were monitored for withdrawal symptoms. You underwent an ultrasound of your heart to assess for valve infection - there was no evidence of infection however it was found that you have a hole in the wall the left and right sides of your heart, which may be contributing to some volume overload causing your symptoms. We talked with cardiology who did not feel you would likely be a good surgical candidate, and so felt it would be reasonable for you to leave and follow-up with them in clinic. You are being sent home with a course of oral antibiotics to finish treating your infection as well as an oral diuretic pill called Lasix (furosemide) to be taken as needed for shortness of breath and leg swelling. Please complete the full course of antibiotics as prescribed, if you s top early your infection may come back. Call your doctor or seek medical attention if you develop the following - chest pain, shortness of breath, feeling dizzy upon standing, passing out, diarrhea, constipation lasting longer than 2 days,fevers (temperature over 100.3), chills, abdominal pain, vomiting, difficulty or discomfort when urinating, bloody or black bowel movements, or any other acute or concerning symptom. Activity level - No restrictions Diet - No change in previous diet Driving - As before hospitalization Shower/Bath - As before hospitalization Wound Care - None Home Oxygen therapy - not indicated Your Discharge Medication List Your Medications New Medications Dose Details cephALEXin 500 mg capsule Commonly known as: Keflex Take 1 capsule by mouth 4 times daily for 10 days. 500 mg Quantity: 40 capsule Refills: 0 furosemide 20 mg tablet Commonly known as: Lasix Take 0.5 tablets by mouth daily for 30 days. 10 mg Quantity: 15 tablet Refills: 0 naloxone 4 mg/actuation [place], Non-Aerosol Commonly known as: Narcan 1 each by Intra-nasally route as needed (Opioid Rescue). 4 mg (contents of 1 nasal spray) as a single dose in one nostril; may repeat every 2 to 3 minutes in alternating nostrils until medical assistance becomes available 1 each Quantity: 2 each Refills: 0 Continued medications, unchanged Dose Details Suboxone 12-[address] 2 Film under the tongue daily. Generic drug: buprenorphine-naloxone 2 Film Refills: 0 Vitamin D 1,000 unit tablet Take 1 tablet by mouth daily. Generic drug: cholecalciferol 1 tablet Refills: 0 STOPPED Medications ibuprofen 200 mg tablet Commonly known as: Advil Follow-up: No future appointments. We have placed a referral to cardiology clinic to follow-up with them aboutyour heart. You should be getting a call from them this week to schedule your appointment. If you do not hear from them, please call the hospital at [phone] and ask to be connected to the cardiology clinic schedulers. Your Inpatient Medical Team at [facility] Name(s) of your inpatient provider(s): MD Garry Stevens MD, Mike Dean MD Your Primary Care Provider: Milo Baer MD [phone] For questions regarding this document or issues relating to this hospitalization on the Medical Service, please contact your inpatient physician through the [facility] . Issues afterhours and on weekends will be handled by the Hospitalist staff on-call. The Section of Hospital Medicine hopes you have a safe and stress free transition out of the hospital. As an additional safeguard to help this transition happen seamlessly we have created a tool to help us stay in communication in case there are any questions or concerns after your discharge. If you are not being discharged to another care setting, where they will take over your medical care, please anticipate a brief questionnaire from our Section that will help us ensure you do not have any issues with your discharge and are as safe and healthy as possible. This questionnaire will be sent out after your discharge, and will be delivered via text primarily but also email if texting is not possible. If there do happen to be any issues or concerns once you leave [facility], we apologize for any undue stress this may cause. Please do not hesitate to call your PCP office or seek further medical assistance if there are any immediate concerns aboutyour health. This questionnaire is not meant to provide immediate access to a physician, but has been created to help us ease the transition out of the hospital. Someone from our Section will reach out after the questionnaire is completed if you have raised any concerns, or have requested a callback, to help ensure your concerns are addressed and a plan is made to keep you safe and healthy. Thankyou in advance for your time completing this questionnaire. documented in this encounter Medications at Time of Discharge Medication Sig Dispensed Refills Start Date End Date naloxone (Narcan) 4 mg/actuation Lincoln, Non-Aerosol 1 each by Intra-nasally route as needed (Opioid Rescue). 4 mg (contents of 1 nasal spray) as a single dose in one nostril; may repeat every 2 to 3 minutes in alternating nostrils until medical assistance becomes available 2 each 10/31/2023 Suboxone 12-[address] 2 Film under the tongue daily. 09/25/2023 cholecalciferol (Vitamin D) 1,000 unit tablet Take 1 tablet by mouth daily. 09/21/2022 cephALEXin (Keflex) 500 mg capsule Take 1 capsule by mouth 4 times daily for 10 days. 40 capsule 11/02/2023 11/12/2023 furosemide (Lasix) 20 mg tablet Take 0.5 tablets by mouth daily for 30 days. 15 tablet 11/02/2023 12/02/2023 documented as of this encounter Progress Notes * Live Austin RN - 11/02/2023 1:35 PM EDT Informed by primary nurse the patient had left unannounced and without paperwork. Furthermore, the nurse stated, I did not directly witness the removal of his IV. Noted that a right forearm 20 gauge IV was documented in the LDA as found in the basilic vein. Primary nurse confirmed an IV was located there. Upon discussing this matter, the patient's girlfriend returned for discharged paperwork. Author accompanied her to the patient's private vehicle to visualize his right forearm and hand-off the paperwork to him directly. No IVs were observed on his right forearm. Provider notified and kept aware of the situation. Patient safely brought to dispo with all belongings. * Kenia Abernathy RN - 11/02/2023 1:22 PM EDT Patient verbalizing he wants to leave AMA. Team made aware. MD at bedside, notified patient to wait20 minutes so he can be discharge with his follow ups and prescriptions. Patient agreed, was in theshower, and his girlfriend stated, He already pulled out his IV and I placed it in the sharps. The patient then walked off the unit unannounced without his discharge paperwork 10 minutes later. Patient's significant other returned after 10 minutes to pick up operator the patient's paperwork. governor assembler, accompanied patient's significant other to the entrance to give him his discharge paperwork, and to make sure the patient did remove his peripheral IV, as he left without anyone seeing him. Discharge pap erwork given. No IV access present. * Mike Dean MD - 11/02/2023 8:56 AM EDT MEDICINE PAGER [phone] - Daily Progress Note Page [phone] to reach a provider 08/02 Admit Date: 10/31/2023 Encounter Date: November 02, 2023 Anticipated Discharge Date: Hospital Day: 1 ID: Marcos Camejo is a 43 y.o. male with PMH of recent admission for MSSA bacteremia and cellulitis in the setting of IVDU (methamphetamine, opiates, xylazine), OUD (on Suboxone), PTSD, Hep C, who presented to the ED on 10/27 with upper and lower extremity and genital swelling, SOB, leg pain, multiple sores and cuts on both hands and overall ill feeling, Left AMA on 10/30 due to withdrawal symptoms and anxiety, and represented to the ED on 10/30. 24 Hour Events/Subjective: NAEON Patient denied withdrawal symptoms today. Declined to speak with me further. Objective: Last value Range last 24 hrs Temp: 36.3 ??C (97.3 ??F) Temp: [36.3 ??C (97.3 ??F)-36.8 ??C (98.2 ??F)] Heart Rate: 66 Heart Rate from SpO2: 89 bpm Heart Rate: [66] BP: 133/79 BP: (109-133)/(60-79) Resp: 19 Resp: [10-19] SpO2: 98 % SpO2: [94 %-98 %] Height: 175.3 cm (5' 9) Weight: 80.7 kg (178 lb) BMI (Calculated): 26.28 BMI Classification: Over Weight Intake/Output Summary (Last 24 hours) at 11/02/2023 0856 Last data filed at 11/02/2023 0700 Gross per 24 hour Intake 240 ml Output 2075 ml Net -1835 ml Patient Vitals for the past 72 hrs: Weight 10/31/23 2337 80.7 kg (178 lb) EXAM: Gen: Lying comfortably in bed in NAD HEENT: NCAT CV: RRR no MRG Pulm: CTAB anteriorly, normal work of breathing on RA Abd: soft, nontender, nondistended Ext: B/l hand swelling, no pedal edema Neuro: Alert and oriented, moves all extremities Recent Labs 10/31/2330010/30/23 0951 10/29/23 0349 WBC 6.0 5.5 6.6 HGB 10.1* 10.4* 9.5* HCT 33.2* 32.2* 28.9* PLATELET 260 226 239 Recent Labs 10/31/2330010/30/23 0951 10/29/23 0349 NA 139 136 139 K 3.4* 4.1 4.0 CL 108* 105 104 CO2 22 18* 28 BUN 8* 13 16 CREATININE 0.78* 0.75* 0.82 Recent Labs 10/31/2330010/30/23 0951 10/29/23 0349 AST 119* 124* 172* ALT 104* 112* 178* ALKPHOS 98 93 103 BILITOT <0.2* 0.3 0.3 BILIDIR 0.1 0.1 0.1 Recent Labs 10/31/2330010/30/23 0951 10/29/23 0349 CALCIUM 8.2* 8.3* 8.0* No results for input(s): PT, INR, PTT in the last 168 hours. No results for input(s): CK, TROPONINT in the last 168 hours. No results found for this visit on 10/31/23 (from the past 24 hour(s)). CONSULTANTS: IP ADMISSION REQUEST IP CONSULT TO CARDIOLOGY IP CONSULT TO PSYCHIATRY IP CONSULT TO SOCIAL WORK Assessment: Marcos Camejo is a 43 y.o. male presenting with PMH of recent admission for MSSA bacteremia andcellulitis in the setting of IVDU (methamphetamine, opiates), OUD (on Suboxone), PTSD, Hep C, presenting to the ED 10/27 with upper and lower extremity and genital swelling, leg pain, multiple sores and cuts on both hands and overall ill feeling and again on 10/30 after leaving AMA. 11/02/23 Overall stable today, getting MARIBEL today to rule out infectious endocarditis. At this point suspicion is overall low given lack of growth on blood cultures. Will likely continue to monitor for withdrawal symptoms afterwards (patient endorsed using drugs again when he left on Wednesday) and transition to oral antibiotics. Plan: #Bilateral hand Cellulitis #C/F Endocarditis - Continue Ancef 2g Q8hr for now - Follow up blood culture, NGTD -Transition to orals after MARIBEL pending results #Elevated LFTs #C/f congestive hepatopathy #Hep C - RUQ ultrasound showed normal hepatic echogenicity without focal lesion - Outpatient Hep C treatment - Discuss Hep C diagnosis with patient to see what he knows of his condition #Tricuspid Regurgitation #Mitral Regurgitation #Elevated proBNP #Bilateral lower extremity swelling - Diuresed with 20mg IV Lasix with good effect - Cardiology recommends diurese and wait for blood cultures to come back, appears euvolemic on examtoday -Duplex dopplers bilaterally ruled out clots #OUD -Last admission reportedly on Suboxone 12mg BID -Resident called [facility] to confirm dose and they could not confirm or deny patient being prescribed Suboxone there -holding suboxone for now given recent opiate use so as not to precipitate withdrawal #Xylazine Withdrawals - Clonidine .1mg 2x daily PRN - Hydroxyzine 50mg q6h PRN - Tizanidine 2mg q6h PRN - clonazepam 0.5mg BID scheduled #IVDU - HIV screen Diet: NPO diet (Give Meds) Last BM documented: DVT Prophylaxis: None Daily Checklist: Last Family Communication: Discharge Location: AM-PAC Basic Mobility Raw Score: 24 PT: OT: Code status Attempt Cardiopulmonary Resuscitation - Inpatient PCP Milo Baer MD [phone] Active Hospital Problems Diagnosis Cellulitis Resolved Hospital Problems No resolved problems to display. Associated attestation - Zachary Glover MD - 11/02/2023 1:56 PM EDT Hospital Medicine - Attending Day of Discharge Documentation Discharge diagnosis Active Hospital Problems Diagnosis Cellulitis Resolved Hospital Problems No resolved problems to display. Secondary Issues Active Non-Hospital Problems Diagnosis Leg swelling Bacteremia due to Staphylococcus aureus I have personally seen and examined the patient and while they are at risk for either continued IVDU or xylazine withdrawal they are not currently manifesting any of those issues and are compos mentis; so although sub-optimal conditions, will discharge with referral to cardiology for new finding oflarge PFO (for which he is not currently a surgical candidate for) after explaining significance ofit to him and his girlfriend. I spent <30 minutes (Day of Discharge Code 12406) involved in the final examination of the patient, discussion of the hospital stay, instructions for continuing care to all relevant caregivers, and preparation of discharge records, prescriptions and referral forms. Plans Discharge to home Follow-up scheduled with cardiology Please see the Discharge Summary for complete details of any medication changes and additional plans. Zachary Glover MD 11/02/2023 1:52 PM * Anatoliy Rivera V - 11/02/2023 7:09 AM EDT MEDICINE PAGER [phone] - Daily Progress Note Page [phone] to reach a provider 08/02 Admit Date: 10/31/2023 Encounter Date: November 02, 2023 Anticipated Discharge Date: Hospital Day: 1 ID: Marcos Camejo is a 43 y.o. male with PMH of recent admission for MSSA bacteremia and cellulitis in the setting of IVDU (methamphetamine, opiates, xylazine), OUD (on Suboxone), PTSD, Hep C, who presented to the ED on 10/27 with upper and lower extremity and genital swelling, SOB, leg pain, multiple sores and cuts on both hands and overall ill feeling, Left AMA on 10/30 due to withdrawal symptoms and anxiety, and represented to the ED on 10/30. 24 Hour Events/Subjective: Yesterday - stable VS - Moved to floor - Pt Refused Suboxone - Blood cultures NGTD at 4 days - Cardiology recommends continued diuresis and MARIBEL 11/01 ON - Stable VS - Pulled PIV in his sleep, another was placed This AM - stable VS Objective: Last value Range last 24 hrs Temp: 36.6 ??C (97.9 ??F) Temp: [36.3 ??C (97.3 ??F)-36.7 ??C (98.1 ??F)] Heart Rate: 70 Heart Rate from SpO2: 63 bpm Heart Rate: [68-74] BP: 123/88 BP: (112-133)/(72-101) Resp: 17 Resp: [15-19] SpO2: 96 % SpO2: [96 %-100 %] Height: 175.3 cm (5' 9) Weight: 80.7 kg (178 lb) BMI (Calculated): 26.28 BMI Classification: Over Weight Intake/Output Summary (Last 24 hours) at 11/02/2023 1129 Last data filed at 11/02/2023 1006 Gross per 24 hour Intake 640 ml Output 2075 ml Net -1435 ml Patient Vitals for the past 72 hrs: Weight 10/31/23 2337 80.7 kg (178 lb) EXAM: Recent Labs 10/31/2330010/30/23 0951 10/29/23 0349 WBC 6.0 5.5 6.6 HGB 10.1* 10.4* 9.5* HCT 33.2* 32.2* 28.9* PLATELET 260 226 239 Recent Labs 10/31/2330010/30/23 0951 10/29/23 0349 NA 139 136 139 K 3.4* 4.1 4.0 CL 108* 105 104 CO2 22 18* 28 BUN 8* 13 16 CREATININE 0.78* 0.75* 0.82 Recent Labs 10/31/2330010/30/23 0951 10/29/23 0349 AST 119* 124* 172* ALT 104* 112* 178* ALKPHOS 98 93 103 BILITOT <0.2* 0.3 0.3 BILIDIR 0.1 0.1 0.1 Recent Labs 10/31/2330010/30/23 0951 10/29/23 0349 CALCIUM 8.2* 8.3* 8.0* No results for input(s): PT, INR, PTT in the last 168 hours. No results for input(s): CK, TROPONINT in the last 168 hours. No results found for this visit on 10/31/23 (from the past 24 hour(s)). CONSULTANTS: IP ADMISSION REQUEST IP CONSULT TO CARDIOLOGY IP CONSULT TO PSYCHIATRY IP CONSULT TO SOCIAL WORK Assessment: Marcos Camejo is a 43 y.o. male presenting with PMH of recent admission for MSSA bacteremia andcellulitis in the setting of IVDU (methamphetamine, opiates), OUD (on Suboxone), PTSD, Hep C, presenting to the ED 10/27 with upper and lower extremity and genital swelling, leg pain, multiple sores and cuts on both hands and overall ill feeling. Marcos was previously [place] [facility] 09[place] [facility] [place] both for MSSA bacteremia and left both admissions AMA due to Being asked too many questions about his drug use. Marcos presented complaining of foot and hand swelling that has gotten worse over the past several days and endorses groin swelling as well. He had an ultrasound that ruled out clots or DVT and suggested a central process. He endorses SOB and nonproductive cough for a week, but denies fevers, chills. Of note his ProBNP was 1432 and he has newly worsened mitral and tricuspid regurg on TTE but no vegetations were visualized. Also noted a PFO. Consult with Cardiology recommends diuresis over the weekend and patient was started on 20mg IV Lasix, which diuresed with good effect. MARIBEL scheduled for Tuesday 10/31 Since presenting he has been hemodynamically stable and afebrile without a leukocytosis. His ESR was wnl but his CRP was elevated to 12.0 making sepsis and endocarditis lower on the differential. Blood cultures were drawn and patient was started on Ancef as his prior abscess culture grew MSSA and was sensitive to it. There has been no growth on his blood cultures after 72. Patient began experiencing xylazine withdrawals on 10/29 with positive COWs assessment, and subsequently left AMA 10/30 at 3pm, due to Anxiety and represented to the ED 8 hours later due to SOB when laying flat and worsening edema symptoms. Patient states he used Xylazine while he was out of the hos pital. He has active untreated HEP C with elevated LFTs AST 195, ALT 191 but alk phos normal at 109. 11/02/2023 Overall stable today, blood cultures NGTD at 96 hours. Patient denies SOB, Cough. Lungs clear bilaterally. No LLE edema. Taken for MARIBEL today, awaiting results. For now, will maintain on IV abx with cefazolin, plan PO conversion and prepare for discharge. Plan: #Bilateral hand Cellulitis #C/F Endocarditis - Continue Ancef 2g Q8hr for now - Follow up blood culture -Transition to orals after MARIBEL #Elevated LFTs #C/f congestive hepatopathy #Hep C - RUQ ultrasound showed normal hepatic echogenicity without focal lesion - Outpatient Hep C treatment - Discuss Hep C diagnosis with patient to see what he knows of his condition #Tricuspid Regurgitation #Mitral Regurgitation #Elevated proBNP #Bilateral lower extremity swelling - Diuresed with 20mg IV Lasix with good effect - Cardiology recommends diurese and wait for blood cultures to come back, plan for MARIBEL on Wednesday -Duplex dopplers bilaterally ruled out clots #OUD -Last admission reportedly on Suboxone 12mg BID -Resident called [facility] to confirm dose and they could not confirm or deny patient being prescribed Suboxone there -Continued Subuxone 12mg BID for now #Xylazine Withdrawals - Clonidine .1mg 2x daily PRN - Hydroxyzine 50mg q6h PRN - Tizanidine 2mg q6h PRN #IVDU - HIV screen Diet: Regular diet Last BM documented: DVT Prophylaxis: None Daily Checklist: Last Family Communication: Discharge Location: AM-PAC Basic Mobility Raw Score: 24 PT: OT: Code status Attempt Cardiopulmonary Resuscitation - Inpatient PCP Milo Baer MD [phone] Active Hospital Problems Diagnosis Cellulitis Resolved Hospital Problems No resolved problems to display. * Ghazala Quesada RN - 11/02/2023 6:34 AM EDT OUTCOME EVALUATION NOTE: OUTCOME SUMMARY: Patient is alert and oriented , pt was cooperative throughout the night, when entering room around 3 to hang atb on pt, the piv was no longer in place, pt stated it fell out. Vascular was able to getanother placed sleep throughout the shift , call light within reach PLAN MOVING FORWARD: Vitals Q4 ABT Q 12 MARIBEL pending D/C planning INDIVIDUALIZED FALL PREVENTION INTERVENTIONS: Patient-specific fall risk factors per assessment: [current deficits] Assistance: Independent, SBA Supervision: Eyes on, Hands on Surveillance: Bed locked in low position, call banda within reach, purposeful hourly rounding, clutter free environment, bed/chair alarm on, family at bedside Patient-specific fall prevention interventions for sensory deficits provided: N/A CPG GOAL OUTCOME EVALUATION: Continue care plan as documented. * Ghazala Quesada RN - 11/02/2023 3:15 AM EDT Page Sent Successfully Page Confirmation To Pager number: [phone] From Submitter: Ghazala Quesada Urgency Level: Call Me Callback Number: [phone] The following Message was sent: [Call Me] - Callback:[phone] Marcos Camejo [id number] needs piv for atb and having MARIBEL in the am - Ghazala Quesada The following status was returned from the bartender server: Page for [phone] successfully sent to [phone] having status of Available. * Ghazala Quesada RN - 11/01/2023 7:54 PM EDT Page Sent Successfully Page Confirmation To Pager number: [phone] From Submitter: Ghazala Quesada Urgency Level: Call Me Callback Number: [phone] The following Message was sent: [Call Me] - Callback:[phone] Marcos Camejo 527A pt states he going AMA - Ghazala Quesada The following status was returned from the bartender server: Page for [phone] successfully sent to [phone] having status of Available. OK * Glo Hinojosa RN - 11/01/2023 6:24 PM EDT OUTCOME EVALUATION NOTE: OUTCOME SUMMARY: Patient is alert and oriented but still refused to answer any question asked to be left alone , sleep throughout the shift , IV ABT running , call light within reach .ongoing care continue PLAN MOVING FORWARD: Vitals Q4 ABT Q 12 MARIBEL pending D/C planning INDIVIDUALIZED FALL PREVENTION INTERVENTIONS: Patient-specific fall risk factors per assessment: [current deficits] Assistance: Independent, SBA Supervision: Eyes on, Hands on Surveillance: Bed locked in low position, call banda within reach, purposeful hourly rounding, clutter free environment, bed/chair alarm on, family at bedside Patient-specific fall prevention interventions for sensory deficits provided: N/A CPG GOAL OUTCOME EVALUATION: Continue care plan as documented. * Glo Hinojosa RN - 11/01/2023 11:11 AM EDT Patient arrived in Room 527A alert and oriented x4 via stretcher from the ED , vitals within normallimit , refused to answer any admission question and asked to be left alone, girlfriend at bedside.Schedule meds offered but refused Suboxone , is aware ,at this time patient is resting in bed with eyes close and refused to answer every questions asked .call light with reach safety maintain , ongoing care continue . * Anatoliy Rivera V - 11/01/2023 7:05 AM EDT MEDICINE PAGER [phone] - Daily Progress Note Page [phone] to reach a provider 08/02 Admit Date: 10/31/2023 Encounter Date: November 01, 2023 Anticipated Discharge Date: Hospital Day: 0 ID: Marcos Camejo is a 43 y.o. male with PMH of recent admission for MSSA bacteremia and cellulitis in the setting of IVDU (methamphetamine, opiates, xylazine), OUD (on Suboxone), PTSD, Hep C, who presented to the ED on 10/27 with upper and lower extremity and genital swelling, SOB, leg pain, multiple sores and cuts on both hands and overall ill feeling, Left AMA on 10/30 due to withdrawal symptoms and anxiety, and represented to the ED on 10/30. 24 Hour Events/Subjective: Yesterday - Moderate Withdrawal symptoms via COWs - Oral potassium given for level of 3.4 - PIV removed via patient and left AMA - Represented to ED 8 hours later ON - Stable VS - Pt has been feeling sluggish in his chest - Pt reported SOB when lying flat - Pt diuresed with IV Lasix 20mg This AM - stable VS - Moved to floor - Pt Refused Suboxone Objective: Last value Range last 24 hrs Temp: 36.8 ??C (98.2 ??F) Temp: [36.7 ??C (98.1 ??F)-36.8 ??C (98.2 ??F)] Heart Rate: 66 Heart Rate from SpO2: 76 bpm Heart Rate: [66-90] BP: 109/62 BP: (96-122)/(55-91) Resp: 12 Resp: [10-18] SpO2: 94 % SpO2: [91 %-98 %] Height: 175.3 cm (5' 9) Weight: 80.7 kg (178 lb) BMI (Calculated): 26.28 BMI Classification: Over Weight Intake/Output Summary (Last 24 hours) at 11/01/2023 1146 Last data filed at 11/01/2023 0600 Gross per 24 hour Intake 100 ml Output 1600 ml Net -1500 ml Patient Vitals for the past 72 hrs: Weight 10/31/23 2337 80.7 kg (178 lb) EXAM: Recent Labs 10/31/23 03010/30/23 0951 10/29/23 0349 WBC 6.0 5.5 6.6 HGB 10.1* 10.4* 9.5* HCT 33.2* 32.2* 28.9* PLATELET 260 226 239 Recent Labs 10/31/23 03010/30/23 0951 10/29/23 0349 NA 139 136 139 K 3.4* 4.1 4.0 CL 108* 105 104 CO2 22 18* 28 BUN 8* 13 16 CREATININE 0.78* 0.75* 0.82 Recent Labs 10/31/23 03010/30/23 0951 10/29/23 0349 AST 119* 124* 172* ALT 104* 112* 178* ALKPHOS 98 93 103 BILITOT <0.2* 0.3 0.3 BILIDIR 0.1 0.1 0.1 Recent Labs 10/31/23 0301 10/30/23 0951 10/29/23 0349 CALCIUM 8.2* 8.3* 8.0* No results for input(s): PT, INR, PTT in the last 168 hours. No results for input(s): CK, TROPONINT in the last 168 hours. No results found for this visit on 10/31/23 (from the past 24 hour(s)). CONSULTANTS: IP ADMISSION REQUEST IP CONSULT TO CARDIOLOGY IP CONSULT TO PSYCHIATRY IP CONSULT TO SOCIAL WORK Assessment: Marcos Camejo is a 43 y.o. male presenting with PMH of recent admission for MSSA bacteremia andcellulitis in the setting of IVDU (methamphetamine, opiates), OUD (on Suboxone), PTSD, Hep C, presenting to the ED 10/27 with upper and lower extremity and genital swelling, leg pain, multiple sores and cuts on both hands and overall ill feeling. Marcos was previously admitted to [facility] 09[place]27 [place] [facility] [place] both for MSSA bacteremia and left both admissions AMA due to Being asked too many questions about his drug use. Marcos presented complaining of foot and hand swelling that has gotten worse over the past several days and endorses groin swelling as well. He had an ultrasound that ruled out clots or DVT and suggested a central process. He endorses SOB and nonproductive cough for a week, but denies fevers, chills. Of note his ProBNP was 1432 and he has newly worsened mitral and tricuspid regurg on TTE but no vegetations were visualized. Also noted a PFO. Consult with Cardiology recommends diuresis over the weekend and patient was started on 20mg IV Lasix, which diuresed with good effect. MARIBEL scheduled for Tuesday 10/31 Since presenting he has been hemodynamically stable and afebrile without a leukocytosis. His ESR was wnl but his CRP was elevated to 12.0 making sepsis and endocarditis lower on the differential. Blood cultures were drawn and patient was started on Ancef as his prior abscess culture grew MSSA and was sensitive to it. There has been no growth on his blood cultures after 72. Patient began experiencing xylazine withdrawals on 10/29 with positive COWs assessment, and subsequently left AMA 10/30 at 3pm, due to Anxiety and represented to the ED 8 hours later due to SOB when laying flat and worsening edema symptoms. Patient states he used Xylazine while he was out of the hos pital. He has active untreated HEP C with elevated LFTs AST 195, ALT 191 but alk phos normal at 109. 11/01/2023 Overall stable today, blood cultures NGTD at 72 hours. Patient endorsed SOB to ED attending on admittance but denied it to me. Patient received IV Lasix 20mg in ED. Lungs clear bilaterally. CurrentlyNPO planning on MARIBEL after consult with cardiology. For now, will maintain on IV abx with cefazolin,consider PO conversion if stable prior to discharge. BIT consult put in for today. Plan: #Bilateral hand Cellulitis #C/F Endocarditis - Continue Ancef 2g Q8hr for now - Follow up blood culture -Transition to orals after MARIBEL #Elevated LFTs #C/f congestive hepatopathy #Hep C - RUQ ultrasound showed normal hepatic echogenicity without focal lesion - Outpatient Hep C treatment - Discuss Hep C diagnosis with patient to see what he knows of his condition #Tricuspid Regurgitation #Mitral Regurgitation #Elevated proBNP #Bilateral lower extremity swelling - Diuresed with 20mg IV Lasix with good effect - Cardiology recommends diurese and wait for blood cultures to come back, plan for MARIBEL on Wednesday -Duplex dopplers bilaterally ruled out clots #OUD -Last admission reportedly on Suboxone 12mg BID -Resident called [facility] to confirm dose and they could not confirm or deny patient being prescribed Suboxone there -Continued Subuxone 12mg BID for now #Xylazine Withdrawals - Clonidine .1mg 2x daily PRN - Hydroxyzine 50mg q6h PRN - Tizanidine 2mg q6h PRN #IVDU - HIV screen Diet: NPO diet (Give Meds) Last BM documented: DVT Prophylaxis: None Daily Checklist: Last Family Communication: Discharge Location: PT: OT: Code status Attempt Cardiopulmonary Resuscitation - Inpatient PCP Milo Baer MD [phone] Active Hospital Problems Diagnosis Cellulitis Resolved Hospital Problems No resolved problems to display. Associated attestation - Zachary Glover MD - 11/01/2023 8:58 PM EDT Attending Attestation and Certification Please see Anatoliy Rivera V's note for details of the patient history of presentation and data.I have discussed, reviewed and agree with the documented History, Physical findings, Assessment andPlan of care. I have examined the patient myself and personally reviewed all studies. In addition, I certify thatI am a [facility] credentialed attending provider with admitting privileges and that the patient meets or has met medical necessity to require an inpatient IPI level of care meeting a minimum of two midnights or is on the [facility] inpatient only procedure list (status C) due to: opioid and xylazine withdrawal,concern for infective endocarditis Returns after briefly AMA for several hours yesterday; will schedule his withdrawal supportive therapies this time to avoid symptoms driving him to leave again. Planned for MARIBEL evaluation tomorrow. Zachary lGover MD Hospital Medicine 11/01/2023 documented in this encounter H&P Notes * Marvel Medina MD - 11/01/2023 12:32 AM EDT Images from the original note were not included. Hospital Medicine History and Physical Patient info: Name: Marcos Camejo : 1980 PCP: Milo Baer MD PCP phone number: [phone] Date of Admission: 10/31/2023 ( Hospital Day 0 days ) Responsible Attending:Xiomara Delaney MD ID: Marcos Camejo is a 43 year old male with a past medical history of IVDU (methamphetamine, opiates), OUD (on Suboxone), untreated Hep C, and hand cellulitis who was just admitted for workup of possible endocarditis and left AMA, now representing for admission. Marcos initially presented on October 27 with primary complaints of extremity swelling and inflamedwounds. He was treated for possible cellulitis along with possible endocarditis, given findings of worsened MR & TR, and was additionally diuresed for volume overload. Marcos was being followed for his substance use history and was being treated for fentanyl/xylazine withdrawal. He was planned t o undergo a MARIBEL to further assess for possible endocarditis, however left AMA prior to this occurring. On interview tonjessi, Marcos notes that he had an anxiety attack and therefore had to leave the hospital. After this resolved and with discussion with his significant other, he felt ready to come up.Marcos's only current symptom is heavier breathing. He notes that this was much worse upon admission and improved with diuresis, but is still somewhat present now. No past medical history on file. No past surgical history on file. No family history on file. Social History Socioeconomic History Marital status: Spouse name: Not on file Number of children: Not on file Years of education: Not on file Highest education level: Not on file Occupational History Not on file Tobacco Use Smoking status: Every Day Packs/day: 1 Types: Cigarettes Smokeless tobacco: Never Vaping Use Vaping Use: Never used Substance and Sexual Activity Alcohol use: Not Currently Drug use: Yes Frequency: 1.0 times per week Types: Methamphetamines, Opioids Sexual activity: Not Currently Other Topics Concern Not on file Social History Narrative Not on file Social Determinants of Health Financial Resource Strain: Not on file Food Insecurity: No Food Insecurity (10/01/2023) Hunger Vital Sign Worried About Running Out of Food in the Last Year: Never true Ran Out of Food in the Last Year: Never true Transportation Needs: No Transportation Needs (10/29/2023) PRAPARE - Transportation Lack of Transportation (Medical): No Lack of Transportation (Non-Medical): No Physical Activity: Not on file Intimate Partner Violence: Not At Risk (09/30/2023) IPV Inpatient Questions Prevent Contact with Others: no Feels Threatened by Someone: no Feels Unsafe at Home: no Physical Signs of Abuse Present: no Housing Stability: Low Risk (10/29/2023) Housing Stability Vital Sign Unable to Pay for Housing in the Last Year: No Number of Places Lived in the Last Year: 1 Unstable Housing in the Last Year: No (Not in a hospital admission) Allergies Allergen Reactions Penicillins Hives Tolerated ceftriaxone 09/2023 Objective: Vitals Last value Range last 24 hrs Temperature Temp: 36.7 ??C (98.1 ??F) Temp: [36.7 ??C (98.1 ??F)-37 ??C (98.6 ??F)] Heart Rate Heart Rate: 86 Heart Rate: [86] Blood Pressure BP: (!) 112/91 BP: (112-151)/(67-91) Art Line BP BP (Arterial Line): -- MAP (NBP): [91 mmHg-110 mmHg] Respiratory Rate Resp: 16 Resp: [15-18] SpO2 SpO2: 98 % SpO2: [95 %-99 %] Oxygen Delivery No intake or output data in the 24 hours ending 11/01/23 0033 Patient Vitals for the past 168 hrs: Weight 10/31/23 2337 80.7 kg (178 lb) Admit wt: 80.74 kg Physical Exam: Gen: NAD CV: RRR. Normal S1 and S2. No M/R/G. Pulm: clear to ascultation bilaterally in the posterior lung martinez. Abd: hypoactive bowel sounds. Soft, nondistended, nontender. Ext: Bilateral swollen hands. Minimal non-pitting edema in bilateral LE. Neuro: A&O x3 Lines/Tubes/Drains PIV 10/31/23 2352 20 gauge basilic vein (medial side of arm), left (Active) Number of days: 0 Labs: CBC: Recent Labs 10/31/2330010/30/23 0951 10/29/23 034 WBC 6.0 5.5 6.6 HGB 10.1* 10.4* 9.5* HCT 33.2* 32.2* 28.9* PLATELET 260 226 239 NEUTROABS 3.80 3.78 4.56 Chemistry: Recent Labs 10/31/2330010/30/23 0951 10/29/23 034 NA 139 136 139 K 3.4* 4.1 4.0 CL 108* 105 104 CO2 22 18* 28 BUN 8* 13 16 CREATININE 0.78* 0.75* 0.82 GLUCOSE 201* 215* 89 ANIONGAP 9 13 7 Recent Labs 10/31/2330010/30/23 0951 10/29/23 0349 10/28/23 1040 CALCIUM 8.2* 8.3* 8.0* 8.5 MAGNESIUM -- -- -- 0.79 LFT's: Recent Labs 10/31/2330010/30/23 0951 10/29/23 034 BILITOT <0.2* 0.3 0.3 BILIDIR 0.1 0.1 0.1 ALBUMIN 2.9* 2.4* 3.1* ALKPHOS 98 93 103 ALT 104* 112* 178* AST 119* 124* 172* Coags: No results for input(s): PT, INR, PTT, FIBRINOGEN, DDIMER in the last 168 hours. Invalid input(s): THROMBIN TIME Cardiac enzymes: Recent Labs 10/28/23 1040 PROBNP 1,432* Endocrine: Recent Labs 10/28/23 1040 TSH 1.67 Recent Labs 10/01/23 0921 HA1C 6.2* Heme: No results for input(s): LDH, HAPTOGLOBIN, URICACID in the last 168 hours. ABG: ABG (Arterial Blood Gas) No results found for: PHART, PO2ART, QJR4IZU, YMS0LQK Microbiology: Blood cultures (10/27): No growth to date Pertinent radiology/diagnostic studies: TTE: Interpretation Summary Left ventricle is of normal size. Wall thickness is normal. Left ventricular size and systolic function is normal. The left ventricular ejection fraction is 57% by Hall's biplane. There are no segmental wall motion abnormalities. Right ventricle is mildly dilated. Right ventricular systolic function is normal. The left atrium is severely dilated. The right atrium is moderately dilated. There is a possible patent foramen ovale by color Doppler. The mitral valve is structurally normal. There is tethering of the mitral leaflets. There is no mitral stenosis. There is moderate mitral regurgitation. There appears to be tethering of the tricuspid valve. Tricuspid valve annulus dilated at 4.0 cm. There is moderate to severe tricuspid regurgitation. Inferior vena cava collapse less than 50% with respiration. Inferior vena cava is dilated.. Compared to 10/01/2023, there is more mitral and tricuspid regurigitation, however no vegetations are visualized. Consider MARIBEL, if clinically indicated. ASSESSMENT/PLAN: Marcos is a 43 year old male with a history of IVDU, hand cellulitis, and opioid use disorder who is now re-presenting after leaving AMA earlier in the day. Will continue Ancef for the time being mehnaz-engage cardiology for MARIBEL to assess for endocarditis. As Marcos was having withdrawal symptoms & anxiety associated with this, will restart his withdrawal regimen that he was getting prior to l eaving AMA. Appreciate psych input in AM regarding strategies to manage this. Bilateral hand cellulitis Concern for endocarditis - Continue cefazolin 2g q8h #Worsening MR/TR #Extremity edema (resolving) - Re-engage cardiology regarding MARIBEL, will keep NPO tonight - IV lasix 20 mg tonight #Opioid use disorder #IVDU - Suboxone 12 mg BID - PRNs for withdrawal: clonidine, tizanidine, hydroxyzine PRN's - Appreciate psychiatry recommendations #Transaminitis #Concern for congestive hepatopathy #Hep C - Outpatient Hep C treatment #Routine PPX -DVT: Lovenox Diet: NPO CODE Status: FULL Marvel Medina MD, PGY-3 11/01/2023 [facility] Medicine #[id number] documented in this encounter ED Notes * Kayley Ann RN - 11/01/2023 9:29 AM EDT Pt declined Suboxone at this time * Marcos Alberts MD - 11/01/2023 12:07 AM EDT ED Resident Note [facility] Emergency Department HPI: 43 RHD M with history of xylazine and fentanyl abuse presents with BLE edema after recent AMA dc for eval of endocarditis. Pt states there;s still something going on with the legs, as his swelling has worsened since he left. States he had an anxiety attack this afternoon that the 0.5 of Ativan wasn't cutting and immediately regretted leaving. Did inject xylazine between his AMA dc and return to the ED tonight. Left prior to the team being able to arrange OP antibiotics. Pt's girlfriendand mother were able to convince him to come back for further eval. Pt has been feeling sluggish in his chest, and feels like he can't breathe if he lays flat. Has recently gained approx 25#. Also with some bloating in the abdomen such that he can't get a deep enough breath. Having BM's intermittently, last this afternoon, non-bloody. No new rashes. Both hands feeling improved from a swelling standpoint, but still can't close his L hand into a fist. Denies SI or HI, just feels emotionally drained but I'm at no risk of hurting myself. Still using cigarettes too On chart review, TTE from 10/27 with: Aortic Valve The aortic valve is structurally and functionally normal. The aortic valve is tricuspid. There is no aortic stenosis. There is no aortic regurgitation. Mitral Valve The mitral valve is structurally normal. There is tethering of the mitral leaflets. There is no mitral stenosis. There is moderate mitral regurgitation. Tricuspid Valve The tricuspid valve is structurally normal. There is no tricuspid stenosis. There appears to be tethering of the tricuspid valve. Tricuspid valve annulus dilated at 4.0 cm. There is moderate to severe tricuspid regurgitation. Physical Exam Vitals and nursing note reviewed. Constitutional: General: He is not in acute distress. Appearance: Normal appearance. He is well-developed and normal weight. He is ill-appearing. He is not toxic-appearing or diaphoretic. HENT: Head: Normocephalic and atraumatic. Nose: Nose normal. Mouth/Throat: Mouth: Mucous membranes are moist. Eyes: General: No scleral icterus. Right eye: No discharge. Left eye: No discharge. Extraocular Movements: Extraocular movements intact. Conjunctiva/sclera: Conjunctivae normal. Pupils: Pupils are equal, round, and reactive to light. Cardiovascular: Rate and Rhythm: Normal rate and regular rhythm. Pulses: Normal pulses. Heart sounds: Normal heart sounds. No murmur heard. No friction rub. No gallop. Pulmonary: Effort: Pulmonary effort is normal. No respiratory distress. Breath sounds: Normal breath sounds. Abdominal: General: Bowel sounds are normal. There is no distension. Palpations: Abdomen is soft. There is no mass. Tenderness: There is no abdominal tenderness. There is no guarding or rebound. Hernia: No hernia is present. Musculoskeletal: General: Normal range of motion. Cervical back: Normal range of motion. Right lower leg: Edema present. Left lower leg: Edema present. Comments: Bilateral hand edema improved from prior. Injection site in the right upper extremity which does not appear necrotic or cellulitic. Skin: General: Skin is warm and dry. Capillary Refill: Capillary refill takes less than 2 seconds. Neurological: General: No focal deficit present. Mental Status: He is alert and oriented to person, place, and time. Mental status is at baseline. Cranial Nerves: No cranial nerve deficit. ED Course/MDM/Assessment/Plan: ED Course as of 11/01/23 0137 Mon Nov 01, 2023 0026 req 0102 recommending Cardiology admission. Cards paged. Patient is a 43 y.o. male with MSSA bacteremia and recent admission presenting with request for readmission after leaving AMA today. He was undergoing evaluation for endocarditis due to his IV drug use. I saw the patient several days prior. He appears improved in condition from prior but still ill.He is also requesting help with his opiate dependence. He did use xylazine in the right upper extremity today but low concern for acute infection. Discussed the case with hospital medicine who recommended discussion with cardiology. Cardiology recommends hospital medicine admission but will closelyfollow and perform TTE tomorrow. Disposition: Admitted to hospital medicine in stable condition. Marcos Alberts MD Resident 11/01/23 0554 Associated attestation - Xiomara Delaney MD - 11/01/2023 10:14 AM EDT ED ATTENDING ATTESTATION NOTE The patient was seen in conjunction with the resident physician. I have independently performed thekey portions of the history and physical exam. I have reviewed the diagnostic studies including labs, imaging studies and EKGs. I have discussed the details of the case with the resident and agree with the assessment and plan as described in the resident note unless noted below or in my separate note. * Xiomara Delaney MD - 10/31/2023 11:57 PM EDT Brief Attending Note I cared for the patient with the resident physician. Please see his/her/their note associated with the encounter, for more details. I have reviewed all diagnostic studies personally including labs, imaging studies and EKGs. Please see ED course below for details. Assessment/plan: Medical Decision Making: Briefly, Marcos Camejo is a 43 y.o. male who presents with lower extremity swelling after recent AMA dc ED Course: ED Course as of 11/01/23 0504 [place] Oct 31, 2023 2356 43 M with past medical history of fentanyl and xylazine use who presents requesting to be admitted for lower extremity edema after AMA discharge on the afternoon 10/30 for anxiety and withdrawal symptoms. States his anxiety is improved and he has worsening lower extremity edema and would like to be readmitted. WedNov 01, 2023 0000 On chart review, patient with a DC summary from 10/30 that states: History of Presentation: Patient recently admitted on 09/29-10/03 for bilateral hand cellulitis. At that time found to have left hand abscess that was drained at bedside by orthopedics. Additionally had a TTE that did not showany vegetations. Was treated with IV vanc and changed to Ancef 2gm TID with abscess culture significant for MSSA. He was seen by ID and plan was for multidisciplinary meeting on 10/04 to discuss if would be an OPAT candidate. Unfortunately, team was notified that patient removed IV and left AMA without anticipatory notice or time for team to discuss risks of AMA discharge. 0002 DC summary cont: Hospital Course: #Bilateral upper extremity cellulitis #Fluid overload #Worsened MR/TR #C/f endocarditis Patient was admitted with significant bilateral swelling of bilateral upper extremities with from intense hands as well as skin cracking with open wounds. Diffuse wounds also noted to arms and legs. Echocardiogram showed worsened mitral regurg and tricuspid regurg with tethering. He was started on antibiotics with Ancef given prior sensitivities. He was evaluated by cardiology given concern for endocarditis who recommended MARIBEL if persistent bacteremia. Admission cultures 10/27 with no growth to date at time of discharge. He was managed with diuresis in anticipation of possible MARIBEL 10/31. Unfortunately, patient left AMA prior to full evaluation. He was able to state the risks of leaving including worsening infection or even . He was deemed to have capacity to make his own medical decisions and after discussing alternatives he left against medical advise. He was advised that we would send oral antibiotics to treat his cellulitis and given return precautions for ED. #Fentanyl/Xylaxine use #C/f withdrawal Patient began experiencing symptoms of withdrawal 10/29. He was evaluated by psychiatry who recommended prn tizanidine, Ativan, clonidine in addition to his home Suboxone. Despite these interventions he experienced ongoing symptoms throughout the day 10/30 and ultimately left against medical advise in the afternoon. 0003 BP(!): 112/91 0003 Temp: 36.7 ??C (98.1 ??F) 0003 Heart Rate: 86 0003 Resp: 16 0003 SpO2: 98 % 0022 On my initial evaluation, the patient is with bilateral dorsal hand erythema and edema with multiple areas of skin breakdown and cracking. No obvious embolic phenomenon the fingers or toes. Trace pitting edema in the bilateral lower extremities. Could not appreciate a murmur. No respiratory dis tress. Injection site in the right upper arm is without overlying necrosis or erythema 0058 Admit requ placed to ; requesting discussion c cardiology 0137 Cards and discussed, will admit MDM: Patient presents requesting hospital admission after recent AMA discharge in the setting of an endocarditis workup. He reports that he had an anxiety attack, use xylazine and is now feeling improved from an anxiety standpoint. He had morning labs drawn this morning and so do not feel need to repeatlabs at this time as his presentation is essentially unchanged. Resident called discussed with [facility] medicine and cardiology and the patient was ultimately admitted back to hospital medicine service for further management. 1. Edema, unspecified type Dispo: Admit Xiomara Delaney MD 11/01/23 0504 documented in this encounter Miscellaneous Notes * Plan of Care - Kenia Abernathy RN - 11/02/2023 12:54 PM EDT Problem: Fall Injury Risk Goal: Absence of Fall and Fall-Related Injury Outcome: Ongoing (Interventions Implemented as Appropriate) Problem: Adult Inpatient Plan of Care Goal: Plan of Care Review Outcome: Ongoing (Interventions Implemented as Appropriate) Goal: Patient-Specific Goal (Individualized) Outcome: Ongoing (Interventions Implemented as Appropriate) Goal: Absence of Hospital-Acquired Illness or Injury Outcome: Ongoing (Interventions Implemented as Appropriate) Goal: Optimal Comfort and Wellbeing Outcome: Ongoing (Interventions Implemented as Appropriate) Goal: Readiness for Transition of Care Outcome: Ongoing (Interventions Implemented as Appropriate) Problem: Mobility Impairment Goal: Optimal Mobility Outcome: Ongoing (Interventions Implemented as Appropriate) * Plan of Care - Glo Hinojosa RN - 11/01/2023 6:18 PM EDT Problem: Fall Injury Risk Goal: Absence of Fall and Fall-Related Injury Outcome: Ongoing (Interventions Implemented as Appropriate) Problem: Adult Inpatient Plan of Care Goal: Plan of Care Review Outcome: Ongoing (Interventions Implemented as Appropriate) Goal: Patient-Specific Goal (Individualized) Outcome: Ongoing (Interventions Implemented as Appropriate) Goal: Absence of Hospital-Acquired Illness or Injury Outcome: Ongoing (Interventions Implemented as Appropriate) Goal: Optimal Comfort and Wellbeing Outcome: Ongoing (Interventions Implemented as Appropriate) Goal: Readiness for Transition of Care Outcome: Ongoing (Interventions Implemented as Appropriate) Problem: Mobility Impairment Goal: Optimal Mobility Outcome: Ongoing (Interventions Implemented as Appropriate) * Plan of Care - Bashir Marie MD - 11/01/2023 3:15 PM EDT Pre-Transesophageal Echo Assessment Please see Dr. Medina's note dated 11/01/2023 for full details regarding reason for referral for MARIBEL. Briefly, this is a 43 y.o. YO male with history notable for IVDU, Hep C with recent MSSA bacteremiain 09/2023 referred for MARIBEL for evaluation for endocarditis and mitral/tricuspid regurgitation. Presented on 10/27 with volume overload, diuresed and now euvolemic. The patient denies a history of difficulty swallowing or esophageal pathology. The patient denies any loose teeth. Mallampati: I Allergies reviewed. Labs reviewed. No prior endoscopy Previous echocardiogram dated reviewed and notable for 10/28/2023. Nomral biventricular function. Mod-sev TR. Moderate MR. Dilated IVC MARIBEL will be done with anesthesia in [place]. Please see forthcoming anesthesia note. The patient's questions regarding the procedure were answered. Written, informed consent was obtained after a thorough discussion of the risks and benefits of MARIBEL as detailed in the printed consent form. Bashir Marie MD Border Machine Operator [id number] * Consult Note - Jo Ann Antoine MSW - 11/01/2023 1:32 PM EDT Images from the original note were not included. Social Work Response to Consult Consult: Consult to Social Work ONE TIME Complete References: Car Hopper Schedule Provider: (Not yet assigned) Question: Reason for Consult? Answer: Opioid use disorder - initiating Buprenorphine Social Work Response: This manager social services met with patient to do IA. Patient not responding to questions, laying in bed with eyes closed. Social work here to support patient. BIT consulted as well andsocial work will collaborate as needed. Follow Up Needed: reed worker remains following. [facility] Hem/Onc Pgr: [phone] * Initial Assessments - Jo Ann Antoine MSW - 11/01/2023 1:22 PM EDT Office of Care Management Initial Assessment WAN Smith reviewed record and discussed patient with Care Team. Source of Information: Team, bedside nurse, medical record, and Patient reed worker Introduced self/reviewed role to patient who was in bed with eyes closed; services accepted. Admitted From: Home Reason for Hospitalization: Covid Vaccination Status: 1st & 2nd dose Last COVID test: Lab Results Component Value Date [id number] Not Detected 10/28/2023 Past medical History: No past medical history on file. Hospitalizations Within the Past 30 Days: last admission left AMA Current Decision-Making Capacity: Self If AD's have not been completed the following surrogate would be surrogate decision maker per [place] surrogate decision making law. (Only good for 180 days) Any patient receiving care in [place] must abide by [place] law. The hierarchy for surrogate decision making is: (a) Patient???s spouse or civil union partner unless there is a divorce proceeding, separation agreement, or restraining order limiting that person???s relationship with the patient. (b) Any adult son or daughter of the patient. (c) Either parent of the patient. (d) Any adult brother or sister of the patient. (e) Any adult grandchild of the patient. (f) Any grandparent of the patient. (g) Any adult aunt, uncle, niece, or nephew of the patient. (h) A close friend of the patient. Dayanara Cage (i) The agent with financial power of claim attorney or a conservator appointed in accordance with RSA 464-A. (j) The guardian of the patient???s estate. Advance Care Planning: Attempt Cardiopulmonary Resuscitation - Inpatient <no information> -Advanced Directive: No, declines Current Coping/Education/Information Needs: Able to verbalize needs Current Functional Ability: Independent Functional Status Prior to Admission: Independent Prior ADLs & IADLs: Independent with all ADLs & IADLs Home Environment: Others in the home: child(gordon), minor, significant other. Current Living Arrangements: home/apartment/condo. Accessibility Concerns:3 [address], 2 story home. In the last 12 months, was there a time when you were not able to pay the mortgage or rent on time?: No In the last 12 months, how many places have you lived?: 1 In the last 12 months, was there a time when you did not have a steady place to sleep or slept in ashelter (including now)?: No In the past 12 months has the [employer], gas, oil, or water [employer] threatened to shut off services in your home?: No Within the past 12 months, you worried that your food would run out before you got the money to buymore.: Never true Within the past 12 months, the food you bought just didn't last and you didn't have money to get more.: Never true Resource / Environmental Concerns: Resource/Environmental Concerns: none In the past 12 months, has lack of transportation kept you from medical appointments or from getting medications?: No In the past 12 months, has lack of transportation kept you from meetings, work, or from getting things needed for daily living?: No Current DME: none Home Address listed as: [address] [place] [phone] Social & Family Supports: All names listed below confirmed with patient as current and correct Extended Emergency Contact Information Primary Emergency Contact: FauziaDayanara Address: [address] [place] [phone] [facility] Mobile Relation: Friend Current Care Provided by: self Provides Primary Care For: no one Caregiver if needed: significant other Quality of Family relationships: involved, supportive Community Resources being provided currently: none Behavioral Health History: Hx of PTSD Substance Use/Abuse listed: Social History Tobacco Use Smoking Status Every Day Packs/day: 1 Types: Cigarettes Smokeless Tobacco Never 0 No problems reported 1-2 Low level 3-5 Moderate level 6-8 Substantial level 9- 10 Severe level 0 to 7 points: Low risk 8 to 15 points: Medium risk 16 to 19 points: High risk 20 to 40 points: Addiction likely Other Pertinent/Service Specific Information: Health/Prescription Coverage: Primary Insurance: [place] Payor: [place] / Plan: [place] / Product Type: *No Product type* / Secondary Insurance: N/A ; Prescription Coverage: Yes Preferred Pharmacy: [facility] - [facility], [place] - [address] [facility] [address] [facility] [place] [address] [place] Status: Patient is a : No Primary Care Provider listed: Milo Baer MD [phone] Patient/Caregiver Goals of Treatment: Return home Potential Needs for Transition of Care: none Agency Referrals: Pending clinical course Transportation: no concerns Transportation Anticipated: family or friend will provide Concerns to be Addressed: discharge planning, mental health, Suboxone / Methadone management Assessment: Patient is admitted to medicine service for cellulitis Social work went to speak with patient who was in bed with eyes closed. Social work introduced selfand told patient social work is here to support him and fastest way to reach is to have the nurse reach out if he needs something, no response from patient. Social work asked if any information had changed since IA done on the and patient said no. Social work used information provided on the 12th to complete this IA. Plan: Care management continues to monitor for any needs. At this time patient is not responding toother staff questions, but social work can return at any time if patient needs anything. A member of the Care Management team will continue to monitor progress, follow for continuity of care and assist with transition of care planning. [facility] Hem/Onc Pgr: [phone] * Consult Note - Bashir Marie MD - 11/01/2023 10:27 AM EDT [facility] [place] Initial Consult Note Patient: Marcos Camejo Primary Care: Milo Baer MD : 1980 Referring Provider: No ref. provider found Date of service: 11/01/2023 Reason for consult: Atrioventricular valve regurgitation and assessment for endocarditis HISTORY OF PRESENT ILLNESS Marcos Camejo is a 43 y.o. male with history of IVDU (methamphetamines and opiates), Hep C, PTSD, and MSSA bacteremia presenting with peripheral extremity edema and bilateral cellulitis of the hands. Brief course: Initially presented October 27 with extremity and groin edema. Treated for bilateral hand cellulitis with Ancef 2g qh8 and diuresed for volume overload. He was planned to undergo a MARIBEL to assess for possible infective endocarditis. Left AMA on 10/30 and presented again to the emergency department. Since patient left the hospital, he reports increased swelling of his legs and abdomen. His abdomenwas becoming distended to the point where he could not fully inspirate. Also having significant weight gain. Patient endorsed shortness of breath. He cannot sleep lying flat needing multiple pillows, reporting orthopnea and PND. At the time of this interview he is feeling much better s/p 20 mg IV Lasix. Currently denying cough or positional dyspnea. Denies any headache or presyncopal episodes. History obtained from patient and significant other. MEDICAL AND SURGICAL HISTORY Reviewed (see pertinent in HPI). MEDICATIONS AND ALLERGIES Reviewed in eDH. SOCIAL HISTORY -Tobacco: Everyday smoker. 1 PPD. -Alcohol: Currently using. -Drugs: Weekly use of methamphetamines, opioids. REVIEW OF SYSTEMS Negative except as noted above. EXAM/ DATA Vitals stable. Blood pressures in range from 100s-120s/50s-90s. Wt: 80.7 kg. I/O: Patient is down to 1.5 L since admission. General No acute distress. Well-appearing lying supine in bed. HEENT EOMI. No scleral icterus. Noninjected. Moist membranes. No cervical LAD Respiratory: Clear to auscultation bilaterally. Speaking in complete sentences on room air. Cardiac Regular rate and rhythm, normal S1/S2. 2/6 systolic murmur radiating to the apex. No JVD. Abdomen Soft, non-tender, and non-distended. Extremities Warm. No clubbing or cyanosis. No lower extremity edema. DP/PT Pulses: 3+ bilaterally. Neuro No gross deficits. Labs reviewed and notable for blood cultures collected on 10/28/2023 showing NGTD. Imaging: US abdomen 10/29/2023 - Edematous gallbladder wall measuring 5 mm in thickness with trace pericholecystic fluid. - Borderline dilation of the common bile duct, measures 7.5 mm. - Normal hepatic echogenicity without focal lesion. Patent portal vein with normal directionality of flow. CXR on 10/28/2023 - Enlarged cardiac silhouette concerning for new cardiomegaly or pericardial effusion. - Mild to moderate pulmonary edema. EKG on 10/28/2023 - Normal sinus rhythm. EKG on 10/01/2023 - Normal sinus rhythm. Echocardiogram: TTE on 10/28/2023 - Left ventricle with normal size and systolic function. Severely dilated left atrium. - LVEF 57%. - Mildly dilated right ventricle, moderately dilated right atrium. - Moderate mitral regurgitation. - Severe tricuspid regurgitation with dilated tricuspid valve annulus at 4.0 cm. There is tetheringof the mitral leaflets. - IVC dilated. - No vegetations visualized. TTE on 10/01/2023 - Left ventricle with normal size and systolic function. - LVEF of 64% without segmental WMA. - Right ventricle normal size and systolic function.-Moderately dilated left atrium. ASSESSMENT AND PLAN Marcos Camejo is a 43 y.o. male with history of IVDU (methamphetamines and opiates), Hep C, PTSD, and recent admission for MSSA bacteremia and cellulitis with worsening MV and TV regurgitation and signs of right-sided heart failure. Currently improved volume status and hemodynamically stable s/p diuresis. Patient initially presented with elevated groin and peripheral edema. Labs notable for elevated proBNP of 1432 and elevated CRP. After leaving the hospital he presented with progressive symptoms including orthopnea, edema, and abdominal distention. TTE on 10/27 showing progression of patient's valvular dysfunction with increasingly severe tricuspid regurgitation and moderate mitral regurgitation with tethering of the mitral leaflets. Unclear if endocarditis is the etiology of his new valvular dysfunction. No vegetations visible on most recent TTE with well-visualized atrioventricular valves. One out of four cultures showing MSSA bacteremia with most recent showing NGTD at 4 days, he is taking Ancef 2g IV. Still some clinical suspicion given history of IVDU, positive blood culture, and heart failure symptoms. We think it is reasonable to go ahead with planned MARIBEL given increased diagnostic sensitivity. He reports significant improvement in symptoms and appears much better on physical exam after diuresis. Still some trace peripheral edema he would benefit from continued diuresis. Recommendations: - Plan for MARIBEL tomorrow, NPO at midnight. - Would benefit from continued diuresis. Consider another 20mg IV Lasix today. Case was discussed with Dr. Mckeon who agrees with recommendations as documented above. x Consult service will continue to follow patient. Recommendations are above, please page if further consultation required. Ga Gutierrez, Medical Student, MS4 Bashir Marie Border Machine Operator, PGY5 [id number] Associated attestation - Roque Mckeon MD - 11/01/2023 8:13 PM EDT In brief, patient with ongoing IVDU re-presents after leaving AMA due to recurrent heart failure symptoms including orthopnea. Improved with IV diuretics. Normal LV and RV function, moderate seemingly functional MR, moderate to severe apparently functional TR. High quality TTE without evidence of ve getations. MSSA with clear blood cultures now. Clinical heart failure of unclear etiology. Hep C but no cirrhosis. Given uncertain etiology of volume overload and atrioventricular valve regurgitation, MARIBEL for further assessment is reasonable, at least for duration of abx therapy. Was previously planned before patient left AMA. Agree with continued IV diuresis. In the longer term, cessation of IV drug use will be the most important intervention to reduce both cardiovascular and all-cause morbidity and mortality. Roque Mckeon MD, CHIP, FACC, FACP, FASE Cardiovascular Medicine * Consult Note - Annette Plascencia [facility] - 11/01/2023 1:56 AM EDT TelePharmacy Home Medication List Update for Medication Reconciliation 11/01/23 1:57 AM Marcos Camejo 1980 Allergies Allergen Reactions Penicillins Hives Tolerated ceftriaxone 09/2023 Person Interviewed: Tha MAR and dc paperwork from 10/31/23 Quality of Interview/accuracy of medication list: good Sources used to compile medication list: [x] Epic medication list [x] SureScripts/Dispense Report [] PCP/Specialist list [] Retail pharmacy [] Patient list [x] MAR [] Other Changes made to home medication list: Additions: None Deletions: None Changes: None Additional Notes: updated medication list with information from dc paperwork and MAR in epic system. Med rec was completed at the beginning of the last admission. Recommended changes: None The home medication list is now updated to the best of my knowledge and is ready to be reconciled by the provider. Please contact the TelePharmacy Medication Reconciliation Pharmacist at for any questions. Annette Plascencia RPH * ED Triage - Derek Plascencia RN - 10/31/2023 11:35 PM EDT HPI (Adult) Stated Reason for Visit: Admitted here, left AMA at 3pm due to anxiety. Now is back hoping to be readmitted. Was admitted for possible endocarditis. Patient states he was retaining fluid, has been having swelling in lower extremities. History Obtained From: patient documented in this encounter Plan of Treatment Upcoming Encounters Date Type Department Care Team (Late st Contact Info) Description 08/01/2024 8:30 AM EST Office [place] [address] Denae Wilson MD [facility] [place] [address] Scheduled Referrals Name Type Priority Associated Diagnoses Order Schedule Referral to Cardiology Outpatient Referral Routine PFO (patent foramen ovale) Ordered: 11/02/2023 documented as of this encounter Procedures Procedure Name Priority Date/Time Associated Diagnosis Comments MARIBEL W LMTD SPECTRAL DOPPLER COLOR DOPPLER Routine 11/02/2023 9:54 AM EDT Edema, unspecified type Bacteremia due to Staphylococcus aureus MARIBEL complete wo contrast (32397) 11/02/2023 9:08 AM EDT Bacteremia RAPID DRUG SCREEN W/O CONFIRMATION, URINE STAT 11/01/2023 2:47 PM EDT RAPID DRUG SCREEN, URINE STAT 11/01/2023 2:45 PM EDT documented in this encounter Results * MARIBEL W LMTD SPECTRAL DOPPLER COLOR DOPPLER (11/02/2023 9:54 AM EDT) Anatomical Region Laterality Modality Cardiac Other 11/02/2023 9:19 AM EDT Narrative 11/02/2023 10:37 AM EDT ? Transesophageal Echocardiogram Report Name: MARCOS CAMEJO ?Study Date: 11/02/2023 09:19 AM ? Patient Location: OR^ORMN2^A : 1980 ?Account: [id number] Age: 43 yrs Gender: Male Ordering Physician: ZACHARY GLOVER Performed By: Chris Delcid MD Interpreting Fellow: Chris Delcid. Interpretation Summary MARIBEL performed to assess for endocarditis, and for etiology of RV dilatation. There is no evidence of a valvular vegetation. Left ventricular systolic function is normal. The visually estimated LVEF is 60 - 65%. The right ventricle is dilated with normal systolic function. The inter-atrial septum is mobile. There is a large PFO. There is also evidence of a possible tiny secundum ASD with huwd-nz-smymw shunting. There is qhpj-xa-sxiiwyvy mitral regurgitation and mild tricuspid regurgitation. Please see the remainder of the report for details. Procedure Complete Transesophageal echocardiogram, real-time with image documentation (2D) including probe placement, image acquisition, interpretation, and report; Color flow velocity mapping; PW and/or CW doppler display. After suitable sedation by anesthesia, the probe was inserted without difficulty. Standard views were obtained in the transgastric, mid esophageal, and basal planes using a multiplane transesophageal echo probe. Additional evaluation with color flow Doppler and limited spectral Doppler was performed. Continuous HR, BP, ECG, and O2 sat monitoring was performed during the procedure. 3D image acquisition, rendering with interpretation and reporting, not requiring post-processing on an independent workstation. There were no complications during the procedure. Left Ventricle Global left ventricular systolic function is normal. Left ventricular ejection fraction is estimated visually at 60 - 65%. Right Ventricle Right ventricle is mildly dilated. Right ventricular systolic function is normal. Left Atrium There is no evidence of thrombus in the left atrium. There is no thrombus in the left atrial appendage. The inter-atrial septum is mobile. There is a large PFO. There is also evidence of a secundum ASD with ibze-tu-czrmp shunting. Pulsed wave Doppler of the left atrial appendage demonstrates normal emptying velocity. Right Atrium There is no evidence of thrombus in the right atrium. Aortic Valve The aortic valve is tricuspid. There is no evidence for a vegetation on the aortic valve. There is trace aortic regurgitation. Mitral Valve The mitral valve is structurally normal. There is no evidence for a vegetation on the mitral valve. There is mild to moderate mitral regurgitation. Tricuspid Valve The tricuspid valve is structurally normal. There is no evidence of a vegetation on the tricuspid valve. There is mild tricuspid regurgitation. Pulmonic Valve The pulmonic valve appears to be structurally normal. There is no vegetation noted on the pulmonic valve. There is trace pulmonic valve regurgitation. Great Arteries The aortic root is of normal size. No abnormalities are identified. Ascending aorta is normal in size. Descending Thoracic Aorta Plaque grade 1: (normal Intima). Aortic Arch Plaque grade 1: (normal Intima). Ascending Plaque grade 1: (normal Intima). Pericardium/Pleural There is a trivial pericardial effusion. ? 2D Measurements ?Ao root diam: 3.4 cm ?asc Aorta Diam: 3.2 cm ?LVOT diam: 2.0 cm Doppler MR ERO: 0.14 cm2 MR PISA radius: 0.57 cm TR max hernán: 258.5 cm/sec ? Tiny septal fenestration vs ASD ? PFO Procedure Note Woody Schuler MD - 11/02/2023 Transesophageal Echocardiogram Report Name: MARCOS CAMEJO Study Date: 11/02/2023 09:19 AM Patient Location: OR^ORMN2^A : 1980 Account:[id number] Age: 43 yrs Gender: Male Ordering Physician: ZACHARY GLOVER Performed By: Chris Delcid MD Interpreting Fellow: Chris Delcid. Interpretation Summary MARIBEL performed to assess for endocarditis, and for etiology of RVdilatation. There is no evidence of a valvular vegetation. Left ventricular systolic function is normal. The visually estimated LVEFis 60 - 65%. The right ventricle is dilated with normal systolic function. The inter-atrial septum is mobile. There is a large PFO. There is alsoevidence of a possible tiny secundum ASD with cjlc-bg-xdprx shunting. There is utnx-bf-vnzhfbif mitral regurgitation and mild tricuspidregurgitation. Please see the remainder of the report for details. Procedure Complete Transesophageal echocardiogram, real-time with imagedocumentation (2D) including probe placement, image acquisition, interpretation, and report;Color flow velocity mapping; PW and/or CW doppler display. After suitablesedation by anesthesia, the probe was inserted without difficulty. Standard viewswere obtained in the transgastric, mid esophageal, and basal planes using amultiplane transesophageal echo probe. Additional evaluation with color flow Dopplerand limited spectral Doppler was performed. Continuous HR, BP, ECG, and O2sat monitoring was performed during the procedure. 3D image acquisition,rendering with interpretation and reporting, not requiring post-processing on anindependent workstation. There were no complications during the procedure. Left Ventricle Global left ventricular systolic function is normal. Left ventricularejection fraction is estimated visually at 60 - 65%. Right Ventricle Right ventricle is mildly dilated. Right ventricular systolic function isnormal. Left Atrium There is no evidence of thrombus in the left atrium. There is no thrombusin the left atrial appendage. The inter-atrial septum is mobile. There is a largePFO. There is also evidence of a secundum ASD with cgrd-bt-cwqho shunting.Pulsed wave Doppler of the left atrial appendage demonstrates normal emptyingvelocity. Right Atrium There is no evidence of thrombus in the right atrium. Aortic Valve The aortic valve is tricuspid. There is no evidence for a vegetation onthe aortic valve. There is trace aortic regurgitation. Mitral Valve The mitral valve is structurally normal. There is no evidence for avegetation on the mitral valve. There is mild to moderate mitral regurgitation. Tricuspid Valve The tricuspid valve is structurally normal. There is no evidence of avegetation on the tricuspid valve. There is mild tricuspid regurgitation. Pulmonic Valve The pulmonic valve appears to be structurally normal. There is novegetation noted on the pulmonic valve. There is trace pulmonic valve regurgitation. Great Arteries The aortic root is of normal size. No abnormalities are identified.Ascending aorta is normal in size. Descending Thoracic Aorta Plaque grade 1:(normal Intima). Aortic Arch Plaque grade 1: (normal Intima). Ascending Plaquegrade 1: (normal Intima). Pericardium/Pleural There is a trivial pericardial effusion. 2D Measurements Ao root diam: 3.4 cm asc Aorta Diam: 3.2 cm LVOT diam: 2.0 cm Doppler MR ERO: 0.14 cm2 MR PISA radius: 0.57 cm TR max hernán: 258.5 cm/sec Tiny septal fenestration vs ASD PFO Zachary Glover MD ECHO ORDERABLES * (ABNORMAL) Rapid Drug Screen w/o Confirmation, Urine (11/01/2023 2:47 PM EDT) Pathologist [facility] Barbiturates Screen, Urine None Detected None Detected [facility] Comment: The barbiturate screen detects barbiturates at concentrations >200 ng/mL. Note: Not all barbiturates cross-react equally with antibody used in this screen. A ? Presumptive Positive? result indicates that the screening result was positive but has not yet been confirmed by a highly-specific method. As with any screen, occasional false positive results from cross-reacting substances may occur. Not for Medico-Legal Purposes. Benzodiazepines Screen, Urine Presumptive Pos(A) None Detected [facility] Comment: The benzodiazepines screen detects benzodiazepines at concentrations >100 ng/mL. Not all benzodiazepines cross-react equally with antibody used in this screen. Due to the low dosage of clonazepam, false negatives may be obtained due to low concentration of clonazepam metabolites. A ? Presumptive Positive? result indicates that the screening result was positive but has not yet been confirmed by a highly-specific method. As with any screen, occasional false positive results from cross-reacting substances may occur. Not for Medico-Legal Purposes. Cocaine Screen, Urine Presumptive Pos(A) None Detected [facility] Comment: The cocaine metabolites screen detects benzoylecgonine (Cocaine Metabolite) at concentrations >150 ng/mL. A ? Presumptive Positive? result indicates that the screening result was positive but has not yet been confirmed by a highly-specific method. As with any screen, occasional false positive results from cross-reacting substances may occur. Not for Medico-Legal Purposes. Methadone Metabolites Screen, Urine None Detected None Detected [facility] Comment: The methadone metabolite screen detects EDDP (major methadone metabolite) at concentrations >100 ng/mL. A ? Presumptive Positive? result indicates that the screening result was positive but has not yet been confirmed by a highly-specific method. As with any screen, occasional false positive results from cross-reacting substances may occur. Not for Medico-Legal Purposes. Opiate Screen, Urine None Detected None Detected [facility] Comment: The opiates screen detects opiates at concentrations >300 ng/mL. Please note that oxycodone, oxymorphone, fentanyl, tramadol, and other synthetic opioids are not detected by the opiate screen. A ? Presumptive Positive? result indicates that the screening result was positive but has not yet been confirmed by a highly-specific method. As with any screen, occasional false positive results from cross-reacting substances may occur. Not for Medico-Legal Purposes. Cannabinoid Screen, Urine Presumptive Pos(A) None Detected [facility] Comment: The marijuana metabolites screen detects the THC metabolite (93-xlm-8-carboxy-delta 9-THC) at concentrations >20 ng/mL. A ? Presumptive Positive? result indicates that the screening result was positive but has not yet been confirmed by a highly-specific method. As with any screen, occasional false positive results from cross-reacting substances may occur. Not for Medico-Legal Purposes. Oxycodone Screen, Urine None Detected None Detected [facility] Comment: The oxycodone screen detects oxycodone and oxymorphone at concentrations >100 ng/mL. A ? Presumptive Positive? result indicates that the screening result was positive but has not yet been confirmed by a highly-specific method. As with any screen, occasional false positive results from cross-reacting substances may occur. Not for Medico-Legal Purposes. Buprenorphine Screen, Urine Presumptive Pos(A) None Detected [facility] Comment: The buprenorphine screen detects buprenorphine at concentrations >=5 ng/mL. A ? Presumptive Positive? result indicates that the screening result was positive but has not yet been confirmed by a highly-specific method. As with any screen, occasional false positive results from cross-reacting substances may occur. Not for Medico-Legal Purposes. This test has not been cleared by the [place] FDA. Performance characteristics of this test were determined by [facility] in accordance with CLIA requirements. This laboratory is qualified under CLIA to perform high-complexity testing. Fentanyl Screen, Urine Presumptive Pos(A) None Detected [facility] Comment: The fentanyl screen detects fentanyl at concentrations >=2 ng/mL. A ? Presumptive Positive? result indicates that the screening result was positive but has not yet been confirmed by a highly-specific method. As with any screen, occasional false positive results from cross-reacting substances may occur. Not for Medico-Legal Purposes. This test has not been cleared by the [place] FDA. Performance characteristics of this test were determined by [facility] in accordance with CLIA requirements. This laboratory is qualified under CLIA to perform high-complexity testing. Tricyclics Screen, Urine None Detected None Detected [facility] Comment: The tricyclics screen detects tricyclic antidepressants at concentrations >=150 ng/mL. Not all tricyclics cross-react equally with the antibody used in this screen. A ? Presumptive Positive? result indicates that the screening result was positive but has not yet been confirmed by a highly-specific method. As with any screen, occasional false positive results from cross-reacting substances may occur. Not for Medico-Legal Purposes. This test has not been cleared by the [place] FDA. Performance characteristics of this test were determined by [facility] in accordance with CLIA requirements. This laboratory is qualified under CLIA to perform high-complexity testing. Ethanol Screen, Urine None Detected None Detected [facility] Comment:This urine ethanol a ssay detects ethanol at concentrations >/= 100 mg/L. Amphetamines Screen, Urine Presumptive Pos(A) None Detected [facility] Comment: The amphetamine screen detects d-amphetamine and d-methamphetamine at concentrations >300 ng/mL. A ? Presumptive Positive? result indicates that the screening result was positive but has not yet been confirmed by a highly-specific method. As with any screen, occasional false positive results from cross-reacting substances may occur. Not for Medico-Legal Purposes. Creatinine Specimen Validity Test, Urine 124 >=20 mg/dL [facility] Chromate Specimen Validity Test, Urine <2.0 <=49.9 mg/L [facility] Nitrite Specimen Validity Test, Urine <50 <=499 mg/L [facility] Oxidant Specimen Validity Test, Urine 6 <=199 mg/L [facility] pH Specimen Validity Test, Urine 6.2 3.0 - 10.9 [facility] Adulterants Screen, Urine None Detected None Detected [facility] Comment:No adulteration of t his urine sample was detected. Urine 11/01/2023 2:47 PM EDT 11/01/2023 2:53 PM EDT Narrative Resulting Agency Comment Spec In Lab Garry Ortiz MD CHEMISTRY ORDERABLES Performing Organization Address [facility] Co de Phone Number [facility] [place] [address] * Rapid Drug Screen, Urine (JENNIFER Request) (11/01/2023 2:45 PM EDT) JENNIFER Conf Requested No [facility] Comment: Collection date/time has been modified to: 14:47:00. ??Previous collection date/time: 14:45:00. Corrected from No [NA] on 11/01/23 14:54:02 EDT by Mary Gaytan. JENNIFER Requested See Comment [facility] Comment: Refer to Rapid Drug Screen w/o Confirmation, Urine for results. Collection date/time has been modified to: 14:47:00. ??Previous collection date/time: 14:45:00. Corrected from See Comment [NA] on 11/01/23 14:54:02 EDT by Mary Gaytan. Urine 11/01/2023 2:45 PM EDT 11/01/2023 2:53 PM EDT Narrative Resulting Agency Comment Spec In Lab Zachary Glover MD URINE ORDERABLES Performing Organization Address [facility] Co de Phone Number [facility] [place] [address] documented in this encounter Visit Diagnoses Diagnosis Cellulitis- Primary Cellulitis and abscess of unspecified site Edema, unspecified type Bacteremia due to Staphylococcus aureus Bacteremia PFO (patent foramen ovale) Ostium secundum type atrial septal defect documented in this encounter Admitting Diagnoses Diagnosis Cellulitis Cellulitis and abscess of unspecified site documented in this encounter Administered Medications Inactive Administered Medications - up to 3 most recent administrations Medication Order MAR Action Action Date Dose Rate Site acetaminophen (Tylenol) tablet 650 mg 650 mg, Oral, EVERY 6 HOURS PRN, Starting on Mon 24 at 0935, Until Wed11/02/23 at 1543, Pain, Fever, Administer for pain or temperature greater than or equal to 38.2 degrees Celsius. Maximum daily dose of acetaminophen from all sources not to exceed 4,000 mg. When ordered for pain, acetaminophen should be given even when other ordered pain medications are indicated., Routine ceFAZolin (Ancef) 2 g vial attach to sodium chloride 0.9% 100 mL Mini-Bag Plus 2 g, Intravenous, EVERY 8 HOURS, First dose on Wed11/01/23 at 0200, Until Discontinued, Administer over 30 Minutes, Indication for (Active or Suspected): Endocarditis New Bag 11/02/2023 11:01 AM EDT 2 g 200 mL/hr New Bag 11/01/2023 5:47 PM EDT 2 g 200 mL/hr New Bag 11/01/2023 9:24 AM EDT 2 g 200 mL/hr clonazePAM (KlonoPIN) tablet 0.5 mg 0.5 mg, Oral, 2 TIMES DAILY, First dose on Wed11/01/23 at 0939, Until Discontinued, DO NOT SPLIT, CRUSH OR OPEN Regular tablets should be swallowed whole with water. Disintegrating tablets (ODTs) should be placed in mouth; may be swallowed with or without water. May also be dissolved in small volume (~30 mL) of water if going to be administered via feeding tube., Routine Given 11/02/2023 8:56 AM EDT 0.5 mg Given 11/01/2023 8:05 PM EDT 0.5 mg Given 11/01/2023 10:41 AM EDT 0.5 mg cloNIDine (Catapres) tablet 0.1 mg 0.1 mg, Oral, EVERY 6 HOURS PRN, Starting on Wed11/01/23 at 0938, Until Wed11/02/23 at 1543, for restlessness, sweating, or tremor, Hold if SBP is less than 100 mmHg., Routine furosemide (Lasix) (10 mg/mL) injection 20 mg 20 mg, Intravenous, ONCE, 1 dose, On Wed11/01/23 at 0151 Given 11/01/2023 2:07 AM EDT 20 mg hydrOXYzine (Atarax) tablet 50 mg 50 mg, Oral, EVERY 6 HOURS PRN, Starting on Wed11/01/23 at 0158, Until Wed11/02/23 at 1543, Anxiety, Routine Given 11/01/2023 8:55 PM EDT 50 mg lidocaine (Xylocaine) 1% (10 mg/mL) injection 3 mg 3 mg (0.3 mL), Subcutaneous, ONCE PRN, 1 dose, Starting on Wed11/01/23 at 0933, Until Wed11/02/23 at 1543, for discomfort with PIV insertion, Routine loperamide (Imodium A-D) capsule 2 mg 2 mg, Oral, EVERY 6 HOURS PRN, Starting on Wed11/01/23 at 0938, Until Wed11/02/23 at 1543, Diarrhea, Do not exceed 16 mg/day., Routine mirtazapine (Remeron) tablet 15 mg 15 mg, Oral, NIGHTLY PRN, Starting on Wed11/01/23 at 0938, Until Wed11/02/23 at 1543, Sleep, If both mirtazapine and hydrOXYzine ordered, give mirtazapine as first option., Routine sodium chloride 0.9 % (flush) (BD PosiFlush Normal Saline 0.9) flush 5 mL 5 mL, Intravenous, 2 TIMES DAILY, First dose on Wed11/01/23 at 0937, Until Discontinued, Routine Given 11/02/2023 9:00 AM EDT 5 mLs Given 11/01/2023 8:06 PM EDT 5 mLs Given 11/01/2023 9:37 AM EDT 5 mLs sodium chloride 0.9 % (flush) (BD PosiFlush Normal Saline 0.9) flush 5-20 mL 5-20 mL, Intravenous, EVERY 1 MIN PRN, Starting on Wed11/01/23 at 0933, Until Wed11/02/23 at 1543, flush, Flush pertains to all indwelling lines. Flush per protocol found in the job aid using the link provided on this medication record., Routine tiZANidine (Zanaflex) tablet 2 mg 2 mg, Oral, 4 TIMES DAILY PRN, Starting on Wed11/01/23 at 0158, Until Wed11/02/23 at 1543, Muscle spasms, Routine Given 11/01/2023 8:55 PM EDT 2 mg documented in this encounter Active and Recently Administered Medications Times are shown in EDT. Scheduled Medication Order 10/31/2023 11/01/2023 11/02/2023 ceFAZolin (Ancef) 2 g vial attach to sodium chloride 0.9% 100 mL Mini-Bag Plus 2 g, Intravenous, EVERY 8 HOURS, First dose on Wed11/01/23 at 0200, Until Discontinued, Administer over 30 Minutes, Indication for (Active or Suspected): Endocarditis 0248 (New Bag - Provider: Dior Alcala RN)0318 (Stopped - Provider: Dior Alcala RN)0924 (New Bag - Provider: Kayley Ann RN)0954 (Stopped - Provider: Glo Hinojosa RN)1747 (New Bag - Provider: Glo Hinojosa RN)1817 (Stopped - Provider: Glo Hinojosa RN) 0200 (Not Given - Provider: Ghazala Quesada RN - Reason: See comment - Comment: No piv access, pt stated it fell out)0908 (MAR Hold - Provider: Admin Adt - Reason: Transfer to a Procedural area)1000 (Not Given - Provider: Kenia Abernathy RN - Reason: See comment - Comment: Already given)1050 (MAR Unhold - Provider: Admin Adt)1101 (New Bag - Provider: Kenia Abernathy RN)1131 (Stopped - Provider: Kenia Abernathy, DAVID) clonazePAM (KlonoPIN) tablet 0.5 mg 0.5 mg, Oral, 2 TIMES DAILY, First dose on Wed11/01/23 at 0939, Until Discontinued, DO NOT SPLIT, CRUSH OR OPEN Regular tablets should be swallowed whole with water. Disintegrating tablets (ODTs) should be placed in mouth; may be swallowed with or without water. May also be dissolved in small volume (~30 mL) of water if going to be administered via feeding tube., Routine 1041 (Given - Provider: Glo Hinojosa RN)2004 (Given - Provider: Ghazala Quesada RN) 0856 (Given - Provider: Kenia Abernathy RN)0908 (MAR Hold - Provider: Admin Adt - Reason: Transfer to a Procedural area)1050 (MAR Unhold - Provider: Admin Adt) furosemide (Lasix) (10 mg/mL) injection 20 mg (COMPLETED) 20 mg, Intravenous, ONCE, 1 dose, On Wed11/01/23 at 0151 0207 (Given - Provider: Dior Alcala RN) sodium chloride 0.9 % (flush) (BD PosiFlush Normal Saline 0.9) flush 5 mL 5 mL, Intravenous, 2 TIMES DAILY, First dose on Wed11/01/23 at 0937, Until Discontinued, Routine 936 (Given - Provider: Glo Hinojosa RN)2005 (Given - Provider: Ghazala Quesada, DAVID) 899 (Given - Provider: Kenia Abernathy RN)09 ([facility] Hold - Provider: Admin Adt - Reason: Transfer to a Procedural area)1050 ([facility] Unhold - Provider: Admin Adt) PRN Medication Order 10/31/2023 11/01/2023 11/02/2023 acetaminophen (Tylenol) tablet 650 mg 650 mg, Oral, EVERY 6 HOURS PRN, Starting on Wed11/01/23 at 0935, Until Wed11/02/23 at 1543, Pain, Fever, Administer for pain or temperature greater than or equal to 38.2 degrees Celsius. Maximum daily dose of acetaminophen from all sources not to exceed 4,000 mg. When ordered for pain, acetaminophen should be given even when other ordered pain medications are indicated., Routine 907 ([facility] Hold - Provider: Admin Adt - Reason: Transfer to a Procedural area)1050 ([facility] Unhold - Provider: Admin Adt) cloNIDine (Catapres) tablet 0.1 mg 0.1 mg, Oral, EVERY 6 HOURS PRN, Starting on Wed11/01/23 at 0938, Until Wed11/02/23 at 1543, for restlessness, sweating, or tremor, Hold if SBP is less than 100 mmHg., Routine 907 ([facility] Hold - Provider: Admin Adt - Reason: Transfer to a Procedural area)1050 ([facility] Unhold - Provider: Admin Adt) hydrOXYzine (Atarax) tablet 50 mg 50 mg, Oral, EVERY 6 HOURS PRN, Starting on Wed11/01/23 at 0158, Until Wed11/02/23 at 1543, Anxiety, Routine 2054 (Given - Provider: Ghazala Quesada RN) 0908 ([facility] Hold - Provider: Admin Adt - Reason: Transfer to a Procedural area)1050 ([facility] Unhold - Provider: Admin Adt) lidocaine (Xylocaine) 1% (10 mg/mL) injection 3 mg 3 mg (0.3 mL), Subcutaneous, ONCE PRN, 1 dose, Starting on Wed11/01/23 at 0933, Until Wed11/02/23 at 1543, for discomfort with PIV insertion, Routine 907 ([facility] Hold - Provider: Admin Adt - Reason: Transfer to a Procedural area)1050 ([facility] Unhold - Provider: Admin Adt) lidocaine (Xylocaine) 5 % ointment (CANCELED) PRN, Starting on Wed11/02/23 at 0922, Until Wed11/02/23 at 1543, Intra-Operative (Intra-Procedure) 921 (Given - Provid er: Chris Delcid MD - Comment: to back of throat) loperamide (Imodium A-D) capsule 2 mg 2 mg, Oral, EVERY 6 HOURS PRN, Starting on Wed11/01/23 at 0938, Until Wed11/02/23 at 1543, Diarrhea, Do not exceed 16 mg/day., Routine 907 ([facility] Hold - Provider: Admin Adt - Reason: Transfer to a Procedural area)1050 ([facility] Unhold - Provider: Admin Adt) mirtazapine (Remeron) tablet 15 mg 15 mg, Oral, NIGHTLY PRN, Starting on Wed11/01/23 at 0938, Until Wed11/02/23 at 1543, Sleep, If both mirtazapine and hydrOXYzine ordered, give mirtazapine as first option., Routine 907 ([facility] Hold - Provider: Admin Adt - Reason: Transfer to a Procedural area)1050 ([facility] Unhold - Provider: Admin Adt) sodium chloride 0.9 % (flush) (BD PosiFlush Normal Saline 0.9) flush 5-20 mL 5-20 mL, Intravenous, EVERY 1 MIN PRN, Starting on Wed11/01/23 at 0933, Until Wed11/02/23 at 1543, flush, Flush pertains to all indwelling lines. Flush per protocol found in the job aid using the link provided on this medication record., Routine 09 ([facility] Hold - Provider: Admin Adt - Reason: Transfer to a Procedural area)1050 ([facility] Unhold - Provider: Admin Adt) tiZANidine (Zanaflex) tablet 2 mg 2 mg, Oral, 4 TIMES DAILY PRN, Starting on Wed11/01/23 at 0158, Until Wed11/02/23 at 1543, Muscle spasms, Routine 2054 (Given - Provider: Ghazala Quesada RN) 0908 ([facility] Hold - Provider: Admin Adt - Reason: Transfer to a Procedural area)1050 ([facility] Unhold - Provider: Admin Adt) documented in this encounter Care Teams Soa Architect Relationship Specialty Start Date End Date Milo Baer MD [address] [place] [address] [place] [address] PCP - [facility] Medicine 04/08/23 11/30/23 documented as of this encounter
--- OUTSIDE RECORDS SUMMARY | 2024-07-02 14:28 | XMS_ITS | Encounter Summary ---
Author Organization [facility] [place] [address] Care Team Providers Care Patient Care Technician Name Role Phone Raffi Merida DO Primary Care Provider [phone] Encounter Details Date Type Department Care Team (Late st Contact Info) Description 05/25/2024 Interpretation Only [facility] [address] [place] [address] Hari Alvarado MD [address] [place] [address] Social History Tobacco Use Types Packs/Day Years Used Date Smoking Tobacco: Every Day Cigarettes Smokeless Tobacco: Never Alcohol Use Standard Drinks/Week Comments Not Currently 0 (1 standard drink = 0.6 oz pur e alcohol) [facility] Utilities Answer Date Recorded In the past 12 months has e [employer], gas, oil, or water [employer] threatened to shut off services in your [...] place to sleep or slept in a mcc (including now)? No 11/01/2023 IPV Inpatient Questions Answer Date Recorded Does [...] on file documented as of this encounter Plan of Treatment Upcoming Encounters Date Type Department Care Team (Late st Contact Info) Description 08/01/2024 8:30 AM EST Office [place] [address] Denae Wilson MD [facility] [place] [address] documented as of this encounter Procedures Procedure Name Priority Date/Time Associated Diagnosis Comments MRI LUMBAR SPINE WITH/WO CONTRAST STAT 05/25/2024 4:17 PM EST documented in this encounter Results * MRI Lumbar Spine wwo Contrast (05/25/2024 4:17 PM EST) PT CLASS E RAD ADMITDTTM [id number] RAD PT [facility] INFO [id number]^[place] ^Hari RAD EXAM DESC MRLSWWO^MRI Spine Lumbar w/ + w/o Contrast^RIS [facility] WORKSTATION ID [id number] [facility] Anatomical Region Laterality Modality L-spine Magnetic Resonan ce 05/25/2024 4:11 PM EST Impressions 05/25/2024 4:31 PM EST 1. 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 2. ??At the right T11 costovertebral junction is osseous destructive change with paraspinal phlegmon. 3. ??Probable anterior discitis osteomyelitis at L1-L2 without epidural involvement. Thank you for letting us participate in the care of this patient. ??If you are a health care provider and have any questions regarding this report, please contact the number below. ??For patients who have questions please contact the health care provider that requested your imaging first. ? Narrative 05/25/2024 4:31 PM EST EXAMINATION: MRI Spine Cervical w/ + w/o Contrast, MRI Spine Thoracic w/ + w/o Contrast, MRI Spine Lumbar w/ + w/o Contrast CLINICAL HISTORY: IVDU, fever, back pain. Concern for spinal infection TECHNIQUE: MRI total spine spine was performed before and after the intravenous administration of 7.5cc Dotarem. Discitis osteomyelitis protocol. COMPARISON: CT abdomen/pelvis dated 05/24/2024. FINDINGS: Cervical spine: Severe disc space narrowing at C3-4 and moderate disc space narrowing at C4-C5 with reactive marrow endplate edema at C3-C4. These degenerative changes result in reversal of the normal cervical lordosis with a kyphotic deformity. Posterior disc osteophyte complexes at C3 through the C6 level results in mild to moderate spinal canal narrowing. No spinal cord signal alteration identified. No abnormal intraspinal enhancement or collections. Normal paravertebral soft tissues. Thoracic spine: At T10-T11 is marrow endplate edema/enhancement, endplate irregularity and mild disc enhancement representing discitis osteomyelitis. Surrounding paraspinal edema. Partial destruction of right T11 vertebral body and rib at the costovertebral junction. Abnormal epidural enhancement spanning the T10-T11 levels with small pockets of nonenhancement representing early abscess formation. Epidural phlegmon is thickest on the left side at T10-T11 resulting in moderate spinal canal narrowing. Normal spinal cord signal. No other sites of discitis osteomyelitis in the thoracic spine. Lumbar spine: At L1-L2 is anterior endplate edema/enhancement as well as associated discal enhancement and mild paraspinal soft tissue edema. No abnormal epidural enhancement. Otherwise signal in the lumbar spine. Mild degenerative change. Procedure Note Augustus Mckeon MD - 05/25/2024 EXAMINATION: MRI Spine Cervical w/ + w/o Contrast, MRI Spine Thoracic w/ +w/o Contrast, MRI Spine Lumbar w/ + w/o Contrast CLINICAL HISTORY: IVDU, fever, back pain. Concern for spinal infection TECHNIQUE: MRI total spine spine was performed before and after the intravenous administration of 7.5cc Dotarem. Discitis osteomyelitis protocol. COMPARISON: CT abdomen/pelvis dated 05/24/2024. FINDINGS: Cervical spine: Severe disc space narrowing at C3-4 and moderate discspace narrowing at C4-C5 with reactive marrow endplate edema at C3-C4. These degenerative changes result in reversal of the normal cervical lordosiswith a kyphotic deformity. Posterior disc osteophyte complexes at C3 through theC6 level results in mild to moderate spinal canal narrowing. No spinal cordsignal alteration identified. No abnormal intraspinal enhancement orcollections. Normal paravertebral soft tissues. Thoracic spine: At T10-T11 is marrow endplate edema/enhancement,endplate irregularity and mild disc enhancement representing discitisosteomyelitis. Surrounding paraspinal edema. Partial destruction of right T11 vertebralbody and rib at the costovertebral junction. Abnormal epidural enhancement spanning the T10-T11 levels with smallpockets of nonenhancement representing early abscess formation. Epidural phlegmonis thickest on the left side at T10-T11 resulting in moderate spinal canal narrowing. Normal spinal cord signal. No other sites of discitis osteomyelitis in the thoracic spine. Lumbar spine: At L1-L2 is anterior endplate edema/enhancement as well as associated discal enhancement and mild paraspinal soft tissue edema. Noabnormal epidural enhancement. Otherwise signal in the lumbar spine. Milddegenerative change. IMPRESSION 1. 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 2. At the right T11 costovertebral junction is osseous destructive changewith paraspinal phlegmon. 3. 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 Thank you for letting us participate in the care of this patient. If youare a health care provider and have any questions regarding this report,please contact the number below. For patients who have questions please contactthe health care provider that requested your imaging first. Hari Alvarado MD IMG MRI ORDERABLES documented in this encounter Visit Diagnoses Not on filedocumented in this encounter Care Teams Patient Care Technician Relationship Specialty Start Date End Date Raffi Merida DO [address] [place] [address] PCP - General Family Medicine 12/01/23 documented as of this encounter
--- OUTSIDE RECORDS SUMMARY | 2024-07-02 14:28 | XMS_ITS | Encounter Summary ---
Author Organization [facility] [place] [address] Care Team Providers Care Center Punch Operator Name Role Phone Milo Baer MD Primary Care Provider [phone] Reason for Visit * Reason Comments Edema * Auth/Cert (Routine) Specialty Diagnoses / Procedures Referred By Betzy beltran Referred To Contact Diagnoses Cellulitis Procedures EMERGENCY JACQUELINEI Zachary Glover MD [facility] [place] [address] [facility] Referral ID Status Reason Start Date Expiration Date Visits Re quested Visits Authorized [id number] 1 1 Encounter Details Date Type Department Care Team (Late st Contact Info) Description 11/02/2023 9:15 AM EDT - 11/02/2023 10:15 AM EDT Surgery [place] [id number] Woody Schuler MD [facility] [place] [address] TRANSESOPHAGEAL ECHOCARDIOGRAM (WRVU 2.3) Social History Tobacco Use Types Packs/Day Years Used Date Smoking Tobacco: Every Day Cigarettes Smokeless Tobacco: Never Alcohol Use Standard Drinks/Week Comments Not Currently 0 (1 standard drink = 0.6 oz pur e alcohol) [facility] Utilities Answer Date Recorded In the past 12 months has [employer], gas, oil, or water company threatened to shut off services in your [...] place to sleep or slept in a long term (including now)? No 11/01/2023 DH IPV Inpatient [...] Sign Reading Time Taken Comments Blood Pressure 114/101 11/02/2023 10:15 AM EDT Pulse 74 11/02/2023 10:15 AM EDT Temperature 36.6 ??C (97.9 ??F) 11/02/2023 10:06 AM E DT Respiratory Rate 15 11/02/2023 10:15 AM EDT Oxygen Saturation 100% 11/02/2023 10:14 AM EDT Inhaled Oxygen Concentration - - Weight 80.7 kg (178 lb) 10/31/2023 11:37 PM EDT Height 175.3 cm (5' 9) 10/31/2023 11:37 PM EDT Body Mass Index 26.29 10/31/2023 11:37 PM EDT documented in this encounter Discharge Summaries * Mike Dean MD - 11/02/2023 1:04 PM EDT Discharge Summary Patient Name: Marcos Camejo Patient Age: 43 y.o. Language: Lithuanian Race: White Ethnicity: Not nor Admit date: 10/31/2023 Discharge date and time: 11/03/2023 11:41 AM Attending Physician: Oriana att. providers found Discharge Physician: Mike Dean [...] please contact your inpatient physician through the [facility] Web Production Assistant . Issues afterhours and on weekends will [...] 9) (10/31/232336) Weight: 80.7 kg (178 lb) (04/14/24 2337) Functional and Cognitive Status: at baseline Important Studies and Lab Data: Labs: Recent Labs 10/31/23 03010/30/23 0951 10/29/23 0349 WBC 6.0 5.5 6.6 HGB 10.1* 10.4* 9.5* PLATELET 260 226 239 Recent Labs 10/31/23 03010/30/23 0951 10/29/23 0349 NA 139 136 139 K 3.4* 4.1 4.0 CL 108* 105 104 CO2 22 18* 28 BUN 8* 13 16 CREATININE 0.78* 0.75* 0.82 Recent Labs 10/31/23 03010/30/23 0951 10/29/23 0349 10/28/23 1040 CALCIUM 8.2* 8.3* 8.0* 8.5 MAGNESIUM -- -- -- 0.79 Recent Labs 10/31/2330010/30/23 0951 10/29/23 034 AST 119* 124* 172* ALT 104* 112* 178* ALKPHOS 98 93 103 BILITOT <0.2* 0.3 0.3 BILIDIR 0.1 0.1 0.1 No results for input(s): TROPONINT, CK in the last 168 hours. No results for input(s): PHART, BBE1WFT, PO2ART, OAS3WKL in the last 168 hours. Pending Studies [...] 15 tablet Refills: 0 naloxone 4 mg/actuation [place], Non-Aerosol Commonly known as: Narcan 1 each [...] 15 tablet Refills: 0 naloxone 4 mg/actuation [place], Non-Aerosol Commonly known as: Narcan 1 each [...] from them, please call the hospital at [phone] and ask to be connected to the cardiology clinic schedulers. Your Inpatient Medical Team at [facility] Name(s) of your inpatient provider(s): MD Garry Stevens MD, Mike Dean MD Your Primary Care Provider: Milo Baer MD [phone] For questions regarding this document or issues relating to this hospitalization on the Medical Service, please contact your inpatient physician through the [facility] Web Production Assistant . Issues afterhours and on weekends will [...] any issues or concerns once you leave [facility], we apologize for any undue stress this may cause. Please do not hesitate to call your PCP office or seek further medical assistance if there are any immediate concerns aboutyo health. This questionnaire is not meant to [...] 15 tablet Refills: 0 naloxone 4 mg/actuation [place], Non-Aerosol Commonly known as: Narcan 1 each [...] from them, please call the hospital at [phone] and ask to be connected to the cardiology clinic schedulers. Your Inpatient Medical Team at [facility] Name(s) of your inpatient provider(s): MD Garry Stevens MD, Mike Dean MD Your Primary Care Provider: Milo Baer MD [phone] For questions regarding this document or issues relating to this hospitalization on the Medical Service, please contact your inpatient physician through the [facility] Web Production Assistant . Issues afterhours and on weekends will [...] any issues or concerns once you leave [facility], we apologize for any undue stress this may cause. Please do not hesitate to call your PCP office or seek further medical assistance if there are any [facility]. This questionnaire is not meant to [...] Date End Date naloxone (Narcan) 4 mg/actuation [place], Non-Aerosol 1 each by Intra-nasally route as [...] ups and prescriptions. Patient agreed, was in theower, and his girlfriend stated, He already pulled out his IV and I placed it in the sharps. The patient then walked off the unit unannounced without his discharge paperwork 10 minutes later. Patient's significant other returned after 10 minutes to leaf size picker the patient's paperwork. courtroom deputy, accompanied patient's significant other to the entrance to give him his discharge paperwork, and to make sure the patient did remove his peripheral IV, as he left without anyone seeing him. Discharge pap erwork given. No IV access present. * Mike Dean MD - 11/02/2023 8:56 AM EDT MEDICINE PAGER [phone] - Daily Progress Note Page [phone] to [...] and oriented, moves all extremities Recent Labs 10/31/23 0301 10/30/23 0951 10/29/23 0349 WBC 6.0 5.5 6.6 HGB 10.1* 10.4* 9.5* HCT 33.2* 32.2* 28.9* PLATELET 260 226 239 Recent Labs 10/31/23 0301 10/30/23 0951 10/29/23 0349 NA 139 136 139 K 3.4* 4.1 4.0 CL 108* 105 104 CO2 22 18* 28 BUN 8* 13 16 CREATININE 0.78* 0.75* 0.82 Recent Labs 10/31/23 0301 10/30/23 0951 10/29/23 0349 AST 119* 124* 172* ALT 104* 112* 178* ALKPHOS 98 93 103 BILITOT <0.2* 0.3 0.3 BILIDIR 0.1 0.1 0.1 Recent Labs 10/31/23 03010/30/23 0951 10/29/23 0349 CALCIUM 8.2* 8.3* 8.0* [...] Daily Checklist: Last Family Communication: Discharge Location: [facility] Basic Mobility Raw Score: 24 PT: OT: Code status Attempt Cardiopulmonary Resuscitation - Inpatient PCP Milo Baer MD [phone] Active Hospital Problems Diagnosis Cellulitis Resolved Hospital [...] spent <30 minutes (Day of Discharge Code 94639) involved in the final examination of the [...] kg (178 lb) EXAM: Recent Labs 10/31/23 0301 10/30/23 0951 10/29/23 0349 WBC 6.0 5.5 6.6 HGB 10.1* 10.4* 9.5* HCT 33.2* 32.2* 28.9* PLATELET 260 226 239 Recent Labs 10/31/23 0301 10/30/23 0951 10/29/23 0349 NA 139 136 139 K 3.4* 4.1 4.0 CL 108* 105 104 CO2 22 18* 28 BUN 8* 13 16 CREATININE 0.78* 0.75* 0.82 Recent Labs 10/31/23 03010/30/23 0951 10/29/23 0349 AST 119* 124* 172* ALT 104* 112* 178* ALKPHOS 98 93 103 BILITOT <0.2* 0.3 0.3 BILIDIR 0.1 0.1 0.1 Recent Labs 10/31/23 03010/30/23 0951 10/29/23 0349 CALCIUM 8.2* 8.3* 8.0* [...] ill feeling. Marcos was previously admitted to [facility] 09/[address] [facility] on 09/29-10/03 both for MSSA bacteremia and [...] Resuscitation - Inpatient PCP Milo Baer MD [phone] Active Hospital Problems Diagnosis Cellulitis Resolved Hospital [...] Quesada Urgency Level: Call Me Callback Number: [phone] The following Message was sent: [Call Me] - Callback:[phone] Marcos Bashir, 527A needs piv for atb and having MARIBEL in the am - Ghazala Quesada The following status was returned from the district sales representative: Page for [phone] successfully sent to [phone] having status of Available. * Ghazala Quesada RN - 11/01/2023 7:54 PM EDT Page Sent Successfully Page Confirmation To Pager number: [phone] From Submitter: Ghazala Quesada Urgency Level: Call Me Callback Number: [phone] The following Message was sent: [Call Me] - Callback:[phone] Marcos Camejo 527A pt states he going AMA - Ghazala Quesada The following status was returned from the district sales representative: Page for [phone] successfully sent to [phone] [...] ongoing care continue . * Anatoliy Rivera Remedios - 11/01/2023 7:05 AM EDT MEDICINE PAGER [phone] - Daily [...] ill feeling. Marcos was previously admitted to [facility] 09/[address] [facility] on 09/29-10/03 both for MSSA bacteremia and [...] Resuscitation - Inpatient PCP Milo Baer MD [phone] Active Hospital Problems Diagnosis Cellulitis Resolved Hospital [...] of two midnights or is on the [facility] inpatient only procedure list (status C) due to: opioid and xylazine withdrawal,concern for infective endocarditis Returns after briefly AMA for several hours yesterday; will schedule his withdrawal supportive therapies this time to avoid symptoms driving him to leave again. Planned for MARIBEL evaluation tomorrow. Zachary Glover MD [facility] Medicine 11/01/2023 documented in this encounter H&P Notes * Marvel Medina MD - 11/01/2023 12:32 AM EDT Images from the original note were not included. Hospital Medicine History and Physical Patient info: Name: Marcos Camejo : 1980 PCP: Milo Baer MD PCP phone number: [phone] Date of Admission: 10/31/2023 ( Hospital Day [...] of days: 0 Labs: CBC: Recent Labs 10/31/23 03010/30/23 0951 10/29/23 0349 WBC 6.0 5.5 6.6 HGB 10.1* 10.4* 9.5* HCT 33.2* 32.2* 28.9* PLATELET 260 226 239 NEUTROABS 3.80 3.78 4.56 Chemistry: Recent Labs 10/31/23 03010/30/23 0951 10/29/23 034 NA 139 136 139 K 3.4* 4.1 4.0 CL 108* 105 104 CO2 22 18* 28 BUN 8* 13 16 CREATININE 0.78* 0.75* 0.82 GLUCOSE 201* 215* 89 ANIONGAP 9 13 7 Recent Labs 10/31/23 03010/30/23 0951 10/29/239 10/28/23 1040 CALCIUM 8.2* 8.3* 8.0* 8.5 MAGNESIUM -- -- -- 0.79 LFT's: Recent Labs 10/31/2330010/30/23 0951 10/29/23 0349 BILITOT <0.2* 0.3 0.3 BILIDIR 0.1 0.1 [...] Gas) No results found for: PHART, PO2ART, RZC2MRO, YXH9GVW Microbiology: Blood cultures (10/27): No growth to [...] disorder who is now re-presenting after leaving [place] earlier in the day. Will continue Ancef for the time being mehnaz-engage cardiology for MARIBEL to assess for endocarditis. As Marcos was having withdrawal symptoms & anxiety associated with this, will restart his withdrawal regimen that he was getting prior to l [facility]. Appreciate psych input in AM regarding strategies [...] Status: FULL Marvel Medina MD, PGY-3 11/01/2023 [facility] Medicine #[id number] documented in this encounter ED Notes * Kayley Ann RN - 11/01/2023 9:29 AM EDT Pt declined Suboxone at this time * Marcos Alberts MD - 11/01/2023 12:07 AM EDT ED Resident Note [facility] Department HPI: 43 RHD M with [...] Course/MDM/Assessment/Plan: ED Course as of 11/01/23 0137 WedNov 01, 2023 0026 HM req 0102 recommending Cardiology admission. Cards paged. Patient is a 43 y.o. male with MSSA bacteremia and recent admission presenting with request for readmission after leaving [place] today. He was undergoing evaluation for endocarditis [...] Course: ED Course as of 11/01/23 0504 Sun Oct 31, 2023 2356 43 M with past medical history of fentanyl and xylazine use who presents requesting to be admitted for lower extremity edema after AMA discharge on the afternoon 10/30 for anxiety and withdrawal symptoms. States his anxiety is improved and he has worsening lower extremity edema and would like to be readmitted. Mon Nov 01, 2023 0000 On chart review, patient [...] is essentially unchanged. Resident called discussed with [facility] medicine and cardiology and the patient was ultimately admitted back to hospital medicine service for further management. 1. Edema, unspecified type Dispo: Xiomara Oneill MD 11/01/23 0504 documented in this encounter [...] the printed consent form. Bashir Marie MD Middleware Developer [phone] * Consult Note - Jo Ann Antoine MSW - 11/01/2023 1:32 PM EDT Images from the original note were not included. Social Work Response to Consult Consult: Consult to Social Work ONE TIME Complete References: Monotype Setter Schedule Provider: (Not yet assigned) Question: Reason for Consult? Answer: Opioid use disorder - initiating Buprenorphine Social Work Response: This psychosocial rehabilitation counselor met with patient to do IA. Patient not responding to questions, laying in bed with eyes closed. Social work here to support patient. BIT consulted as well andsocial work will collaborate as needed. Follow Up Needed: metal casting trades worker remains following. [facility] Hem/Onc Pgr: [phone] * Initial Assessments - Jo Ann Antoine MSW - 11/01/2023 1:22 PM EDT Office of Care Management Initial Assessment WAN Smith reviewed record and discussed patient with Care Team. Source of Information: Team, bedside nurse, medical record, and Patient metal casting trades worker Introduced self/reviewed role to patient who was in bed with eyes closed; services accepted. Admitted From: Home Reason for Hospitalization: Covid Vaccination Status: 1st & 2nd dose Last COVID test: Lab Results Component Value Date [id number] Not Detected 10/28/2023 Past medical History: No past medical history on file. Hospitalizations Within the Past 30 Days: last admission left AMA Current Decision-Making Capacity: Self If AD's have not been completed the following surrogate would be surrogate decision maker per [place] surrogate decision making law. (Only good for 180 days) Any patient receiving care in [place] must abide by [place] law. The hierarchy for surrogate decision making [...] (i) The agent with financial power of insurance defense attorney or a conservator appointed in accordance [...] In the past 12 months has the [employer], gas, oil, or water [employer] threatened to shut off services in your [...] Current DME: none Home Address listed as: [address] [place] [phone] Social & Family Supports: All names listed below confirmed with patient as current and correct Extended Emergency Contact Information Primary Emergency Contact: Dayanara Cage Address: [address] [place] [phone] [facility] Mobile Relation: Friend Current Care Provided by: [...] N/A ; Prescription Coverage: Yes Preferred Pharmacy: [id number] - [facility], [place] - [address] [address] [place] Status: Patient is a : No Primary Care Provider listed: Milo Baer MD [phone] Patient/Caregiver Goals of Treatment: Return home Potential [...] Social work used information provided on the to complete this IA. Plan: Care management [...] Marie MD - 11/01/2023 10:[address] [facility] Department of Cardiology Initial Consult Note Patient: [...] required. Ga Gutierrez, Medical Student, MS4 Bashir Cynthia Middleware Developer, PGY5 [phone] Associated attestation - Roque Mckeon MD - 11/01/2023 8:13 PM EDT In brief, patient with ongoing IVDU re-presents after leaving [place] due to recurrent heart failure symptoms including [...] Medicine * Consult Note - Annette Plascencia RPH - 11/01/2023 1:56 AM EDT TelePharmacy Home Medication List Update for Medication Reconciliation 11/01/23 1:57 AM Marcos Camejo 1980 Allergies Allergen Reactions Penicillins Hives Tolerated ceftriaxone 09/2023 Person Interviewed: [employer] MAR and dc paperwork from 10/31/23 Quality of Interview/accuracy of medication list: good Sources used to compile medication list: [x] [employer] medication list [x] [employer]/Dispense Report [] PCP/Specialist list [] Retail pharmacy [] Patient list [x] MAR [] Other Changes made to home medication list: Additions: None Deletions: None Changes: None Additional Notes: updated medication list with information from dc paperwork and MAR in [employer] system. Med rec was completed at the [...] 8:30 AM EST Office Visit Gastroenterology at [facility] [place] [address] Denae Wilson MD [facility] [place] [address] Scheduled Referrals Name Type Priority Associated Diagnoses Order Schedule Referral to Cardiology Outpatient Referral Routine PFO (patent foramen ovale) Ordered: 11/02/2023 documented as of this encounter Procedures Procedure Name Priority Date/Time Associated Diagnosis Comments MARIBEL W LMTD SPECTRAL DOPPLER COLOR DOPPLER Routine 11/02/2023 9:54 AM EDT Edema, unspecified type Bacteremia due to Staphylococcus aureus MARIBEL complete wo contrast (96336) 11/02/2023 9:08 AM EDT Bacteremia RAPID DRUG [...] ? Patient Location: OR^[facility]^A : 1980 ?Account: [id number] Age: 43 yrs Gender: Male Ordering Physician: [...] of a possible tiny secundum ASD with ktek-zv-eqejh shunting. There is jdur-qi-dwtylphb mitral regurgitation and mild tricuspid regurgitation. Please [...] also evidence of a secundum ASD with awvw-rg-rcqmv shunting. Pulsed wave Doppler of the left [...] Study Date: 11/02/2023 09:19 AM Patient Location: OR^[facility]^A : 1980 Account:[id number] Age: 43 yrs Gender: Male Ordering Physician: [...] of a possible tiny secundum ASD with ieeo-ef-ukkks shunting. There is hkaw-ia-imtuvlps mitral regurgitation and mild tricuspidregurgitation. Please see [...] also evidence of a secundum ASD with rjqm-cq-szwrd shunting.Pulsed wave Doppler of the left atrial [...] w/o Confirmation, Urine (11/01/2023 2:47 PM EDT) [facility] Barbiturates Screen, Urine None Detected None Detected [facility] Comment: The barbiturate screen detects [...] Benzodiazepines Screen, Urine Presumptive Pos(A) None Detected [facility] Comment: The benzodiazepines screen detects [...] Cocaine Screen, Urine Presumptive Pos(A) None Detected [facility] Comment: The cocaine metabolites screen detects benzoylecgonine (Cocaine Metabolite) at concentrations >150 ng/mL. A ? Presumptive Positive? result indicates that the screening result was positive but has not yet been confirmed by a highly-specific method. As with any screen, occasional false positive results from cross-reacting substances may occur. Not for Medico-Legal Purposes. Methadone Metabolites Screen, Urine None Detected None Detected [facility] Comment: The methadone metabolite screen detects EDDP (major methadone metabolite) at concentrations >100 ng/mL. A ? Presumptive Positive? result indicates that the screening result was positive but has not yet been confirmed by a highly-specific method. As with any screen, occasional false positive results from cross-reacting substances may occur. Not for Medico-Legal Purposes. Opiate Screen, Urine None Detected None Detected [facility] Comment: The opiates screen detects [...] Cannabinoid Screen, Urine Presumptive Pos(A) None Detected [facility] Comment: The marijuana metabolites screen detects the THC metabolite (47-hnj-6-carboxy-delta 9-THC) at concentrations >20 ng/mL. A ? Presumptive Positive? result indicates that the screening result was positive but has not yet been confirmed by a highly-specific method. As with any screen, occasional false positive results from cross-reacting substances may occur. Not for Medico-Legal Purposes. Oxycodone Screen, Urine None Detected None Detected [facility] Comment: The oxycodone screen detects oxycodone and oxymorphone at concentrations >100 ng/mL. A ? Presumptive Positive? result indicates that the screening result was positive but has not yet been confirmed by a highly-specific method. As with any screen, occasional false positive results from cross-reacting substances may occur. Not for Medico-Legal Purposes. Buprenorphine Screen, Urine Presumptive Pos(A) None Detected [facility] Comment: The buprenorphine screen detects [...] characteristics of this test were determined by [facility] in accordance with CLIA requirements. This laboratory is qualified under CLIA to perform high-complexity testing. Fentanyl Screen, Urine Presumptive Pos(A) None Detected [facility] Comment: The fentanyl screen detects [...] characteristics of this test were determined by [facility] in accordance with CLIA requirements. This laboratory is qualified under CLIA to perform high-complexity testing. Tricyclics Screen, Urine None Detected None Detected [facility] Comment: The tricyclics screen detects [...] characteristics of this test were determined by [facility] in accordance with CLIA requirements. This laboratory is qualified under CLIA to perform high-complexity testing. Ethanol Screen, Urine None Detected None Detected [facility] Comment:This urine ethanol a ssay detects ethanol at concentrations >/= 100 mg/L. Amphetamines Screen, Urine Presumptive Pos(A) None Detected [facility] Comment: The amphetamine screen detects d-amphetamine and d-methamphetamine at concentrations >300 ng/mL. A ? Presumptive Positive? result indicates that the screening result was positive but has not yet been confirmed by a highly-specific method. As with any screen, occasional false positive results from cross-reacting substances may occur. Not for Medico-Legal Purposes. Creatinine Specimen Validity Test, Urine 124 >=20 mg/dL [facility] Chromate Specimen Validity Test, Urine <2.0 <=49.9 mg/L [facility] Nitrite Specimen Validity Test, Urine <50 <=499 mg/L [facility] Oxidant Specimen Validity Test, Urine 6 <=199 mg/L [facility] pH Specimen Validity Test, Urine 6.2 3.0 - 10.9 [facility] Adulterants Screen, Urine None Detected None Detected [facility] Comment:No adulteration of t his urine sample was detected. Urine 11/01/2023 2:47 PM EDT 11/01/2023 2:53 PM EDT Narrative Resulting Agency Comment Spec In Lab Garry Ortiz MD CHEMISTRY ORDERABLES [facility] [place] [address] * Rapid Drug Screen, Urine (JENNIFER Request) (11/01/2023 2:45 PM EDT) JENNIFER Conf Requested No [facility] Comment: Collection date/time has been modified to: 14:47:00. ??Previous collection date/time: 14:45:00. Corrected from No [NA] on 11/01/23 14:54:02 EDT by Mary Gaytan. JENNIFER Requested See Comment [facility] Comment: Refer to Rapid Drug Screen w/o Confirmation, Urine for results. Collection date/time has been modified to: 14:47:00. ??Previous collection date/time: 14:45:00. Corrected from See Comment [NA] on 11/01/23 14:54:02 EDT by Mary Gaytan. Urine 11/01/2023 2:45 PM EDT 11/01/2023 2:53 PM EDT Narrative Resulting Agency Comment Spec In Lab Zachary Glover MD URINE ORDERABLES [facility] [place] [address] documented in this encounter Visit Diagnoses Not on filedocumented in this encounter Admitting Diagnoses Diagnosis Cellulitis [...] SBP is less than 100 mmHg., Routine hydrOXYzine (Atarax) tablet 50 mg 50 mg, Oral, EVERY 6 HOURS PRN, Starting on Wed11/01/23 at 0158, Until Wed11/02/23 at 1543, Anxiety, Routine Given 11/01/2023 8:55 PM EDT 50 mg lidocaine (Xylocaine) 1% (10 mg/mL) injection 3 mg 3 mg (0.3 mL), Subcutaneous, ONCE PRN, 1 dose, Starting on Wed11/01/23 at 0933, Until Wed11/02/23 at 1543, for discomfort with PIV insertion, Routine lidocaine (Xylocaine) 5 % ointment PRN, Starting on Wed11/02/23 at 0922, Until Wed11/02/23 at 1543, Intra-Operative (Intra-Procedure) Given 11/02/2023 9:22 AM EDT 1 inch loperamide (Imodium A-D) capsule 2 mg 2 [...] Hinojosa RN)1747 (New Bag - Provider: Glo Hinojosa, DAVID)1817 (Stopped - Provider: Glo Hinojosa RN) 0200 [...] Admin Adt)1101 (New Bag - Provider: Kenia Abernathy, RN)1131 (Stopped - Provider: Kenia Abernathy RN) clonazePAM (KlonoPIN) tablet 0.5 mg 0.5 mg, [...] 0856 (Given - Provider: Kenia Abernathy RN)0908 (SEP Hold - Provider: Admin Adt - Reason: Transfer to a Procedural area)1050 ([facility] Unhold - Provider: Admin Adt) furosemide (Lasix) (10 mg/mL) injection 20 mg (COMPLETED) 20 mg, Intravenous, ONCE, 1 dose, On Wed11/01/23 at 0151 0207 (Given - Provider: Dior Alcala RN) sodium chloride 0.9 % (flush) (BD PosiFlush Normal Saline 0.9) flush 5 mL 5 mL, Intravenous, 2 TIMES DAILY, First dose on Wed11/01/23 at 0937, Until Discontinued, Routine 0937 (Given - Provider: Glo Hinojosa RN)2005 (Given - Provider: Ghazala Quesada RN) 09 (Given - Provider: Kenia Abernathy RN)0908 (MAR Hold - Provider: Admin Adt - Reason: Transfer to a Procedural area)1050 ([facility] Unhold - Provider: Admin Adt) PRN Medication [...] ordered pain medications are indicated., Routine 907 ([facility] Hold - Provider: Admin Adt - Reason: Transfer to a Procedural area)1050 ([facility] Unhold - Provider: Admin Adt) cloNIDine (Catapres) tablet 0.1 mg 0.1 mg, Oral, EVERY 6 HOURS PRN, Starting on Wed11/01/23 at 0938, Until Wed11/02/23 at 1543, for restlessness, sweating, or tremor, Hold if SBP is less than 100 mmHg., Routine 907 ([facility] Hold - Provider: Admin Adt - Reason: Transfer to a Procedural area)1050 ([facility] Unhold - Provider: Admin Adt) hydrOXYzine (Atarax) tablet 50 mg 50 mg, Oral, EVERY 6 HOURS PRN, Starting on Wed11/01/23 at 0158, Until Wed11/02/23 at 1543, Anxiety, Routine 2054 (Given - Provider: Ghazala Quesada RN) 09 ([facility] Hold - Provider: Admin Adt - Reason: Transfer to a Procedural area)1050 ([facility] Unhold - Provider: Admin Adt) lidocaine (Xylocaine) 1% (10 mg/mL) injection 3 mg 3 mg (0.3 mL), Subcutaneous, ONCE PRN, 1 dose, Starting on Wed11/01/23 at 0933, Until Wed11/02/23 at 1543, for discomfort with PIV insertion, Routine 907 ([facility] Hold - Provider: Admin Adt - Reason: Transfer to a Procedural area)1050 ([facility] Unhold - Provider: Admin Adt) lidocaine (Xylocaine) [...] Do not exceed 16 mg/day., Routine 907 ([facility] Hold - Provider: Admin Adt - Reason: Transfer to a Procedural area)1050 ([facility] Unhold - Provider: Admin Adt) mirtazapine (Remeron) tablet 15 mg 15 mg, Oral, NIGHTLY PRN, Starting on Wed11/01/23 at 0938, Until Wed11/02/23 at 1543, Sleep, If both mirtazapine and hydrOXYzine ordered, give mirtazapine as first option., Routine 907 ([facility] Hold - Provider: Admin Adt - Reason: Transfer to a Procedural area)1050 ([facility] Unhold - Provider: Admin Adt) sodium chloride 0.9 % (flush) (BD PosiFlush Normal Saline 0.9) flush 5-20 mL 5-20 mL, Intravenous, EVERY 1 MIN PRN, Starting on Wed11/01/23 at 0933, Until Wed11/02/23 at 1543, flush, Flush pertains to all indwelling lines. Flush per protocol found in the job aid using the link provided on this medication record., Routine 09 ([facility] Hold - Provider: Admin Adt - [...] - Reason: Transfer to a Procedural area)1050 ([facility] Unhold - Provider: Admin Adt) documented in this encounter Care Teams Center Punch Operator Relationship Specialty Start Date End Date Milo Baer MD [address] [place] [address] [place] [address] PCP - [facility] Medicine 04/08/23 11/30/23 documented as of this encounter
--- OUTSIDE RECORDS SUMMARY | 2024-07-02 14:28 | XMS_ITS | Encounter Summary ---
Author Organization [facility] [place] [address] Care Team Providers Care Glaciologist Name Role Phone Milo Baer MD Primary Care Provider [phone] Encounter Details Date Type Department Care Team (Late st Contact Info) Description 11/04/2023 Telephone Cardiology at [address] [address] Don Muñoz Social History Tobacco Use Types Packs/Day Years Used Date Smoking Tobacco: Every Day Cigarettes Smokeless Tobacco: Never Alcohol Use Standard Drinks/Week Comments Not Currently 0 (1 standard drink = 0.6 oz pur e alcohol) [facility] Utilities Answer Date Recorded In the past 12 months has th e electric, gas, oil, or water company threatened to [...] place to sleep or slept in a fpc (including now)? No 11/01/2023 IPV Inpatient Questions [...] on file documented as of this encounter Miscellaneous Notes * Telephone Encounter - Don Muñoz - 11/04/2023 10:58 AM EDT Attempted to call pt to schedule PFO consult. # has been disconnected. documented in this encounter Plan of Treatment Upcoming Encounters Date Type Department Care Team (Late st Contact Info) Description 08/01/2024 8:30 AM EST Office [place] [address] Denae Wilson MD [facility] [place] [address] documented as of this encounter Visit Diagnoses Not on filedocumented in this encounter Care Teams Glaciologist Relationship Specialty Start Date End Date Milo Baer MD [address] [place] [address] DANA GONZALEZ [id number] PCP - [facility] 04/08/23 11/30/23 documented as of this encounter
--- OUTSIDE RECORDS SUMMARY | 2024-07-02 14:28 | XMS_ITS | Encounter Summary ---
Author Organization [facility] [place] [address] Care Team Providers Care Refrigeration Unit Repairer Name Role Phone Raffi Merida DO Primary Care Provider Encounter Details Date Type Department Care Team (Late st Contact Info) Description 05/24/2024 Lab [place] [address] Live Garvey MD [address] [place] [address] Social History Tobacco Use Types Packs/Day Years Used Date Smoking Tobacco: Every Day Cigarettes Smokeless Tobacco: Never Alcohol Use Standard Drinks/Week Comments Not Currently 0 (1 standard drink = 0.6 oz pur e alcohol) [facility] Utilities Answer Date Recorded In the past 12 months has [employer], gas, oil, or water [employer] threatened to shut off services in your [...] place to sleep or slept in a intermediate (including now)? No 11/01/2023 IPV Inpatient Questions [...] 8:30 AM EST Office [place] [address] Denae Wilson MD [facility] [place] [address] documented as of this encounter Procedures Procedure Name Priority Date/Time Associated Diagnosis Comments BLOOD CULTURE Routine 05/24/2024 2:07 PM EST BLOOD CULTURE Routine 05/24/2024 2:07 PM EST documented in this encounter Results * (ABNORMAL) Blood culture (05/24/2024 2:07 PM EST) Blood Culture Methicillin Resistant Staphylococcus aureus(Critical) VITEK 2 METHOD 05/27/2024 7:22 AM EST [facility] Comment: detected by PCR Isolate saved. If future testing is required, contact the Microbiology Pattern Ruler. Gram Stain Anaerobic Bottle: Gram positive cocci in clusters(Critical ) 05/27/2024 7:22 AM EST [facility] Gram Stain Aerobic Bottle: Gram positive cocci in clusters(Critical ) 05/27/2024 7:22 AM [facility] Blood VENOUS BLOOD SPECIMEN / Unknown 05/24/2024 2:07 PM EST 05/24/2024 4:44 PM EST Narrative Organism Antibiotic Method Susceptibility Methicillin Resistant Staphylococcus aureus Clindamycin VITEK 2 METHOD >=8.0 ug/ml: Resistant Methicillin Resistant Staphylococcus aureus Gentamicin VITEK 2 METHOD <=0.5 ug/ml: Susceptible Comment:Gentamicin i s not appropriate for monotherapy for gram-positive infections. Methicillin Resistant Staphylococcus aureus Linezolid VITEK 2 METHOD 2.0 ug/ml: Susceptible Methicillin Resistant Staphylococcus aureus Oxacillin VITEK 2 METHOD >=4.0 ug/ml: Resistant Methicillin Resistant Staphylococcus aureus Trimethoprim/Sulfa VITEK 2 METHOD >=320.0 ug/ml: Resistant Methicillin Resistant Staphylococcus aureus Vancomycin VITEK 2 METHOD 1.0 ug/ml: Susceptible Live Garvey MD MICROBIOLOGY - BL OOD ORDERABLES [facility] [place] [address] * (ABNORMAL) Blood culture (05/24/2024 2:07 PM EST) Blood Culture Methicillin Resistant Staphylococcus aureus(Critical) 05/27/2024 7:22 AM [facility] Comment:Susceptibilities pre viously reported. Gram Stain Anaerobic Bottle: Gram positive cocci in clusters(Critical ) 05/27/2024 7:22 AM EST [facility] Gram Stain Aerobic Bottle: Gram positive cocci in clusters(Critical ) 05/27/2024 7:22 AM EST [facility] Comment:This is an appended report. These results have been appended to a previously preliminary verified report. Blood VENOUS BLOOD SPECIMEN / Unknown Venipuncture / Unknown 05/24/2024 2:07 PM EST 05/24/2024 4:42 PM EST Live Garvey MD MICROBIOLOGY - [place] [address] documented in this encounter Visit Diagnoses Not on filedocumented in this encounter Care Teams Refrigeration Unit Repairer Relationship Specialty Start Date End Date Raffi Merida DO [address] [place] [address] PCP - General Family Medicine 12/01/23 documented as of this encounter
--- OUTSIDE RECORDS SUMMARY | 2024-07-02 14:28 | XMS_ITS | Encounter Summary ---
Author Organization [facility] Address [facility] [place] [address] Care Team Providers Care Pari Mutuel Ticket Cashier Name Role Phone Raffi Merida DO Primary Care Provider [phone] Reason for Visit * Consultation (Routine) - Closed Specialty Diagnoses / Procedures Referred By Controland t Referred To Contact Gastroenterology Diagnoses Hepatitis C virus infection without hepatic coma, unspecified chronicity Dysphagia, unspecified type 43 yo M, Hx of IV fentanyl abuse, recently tested positive for hepatitis C (results not immediately available to provider), may have also spontaneusly cleared hepatitis B previously. Also has chronic dysphagia. Raffi Merida, [address] [place] [address] [facility] [address] [address] Referral ID Status Reason Start Date Expiration Date V isits Requested Visits Authorized [id number] Closed Consult, Test & Treat PCP Updated and/or Approved 11/22/2023 05/24/2024 6 6 Encounter Details Date Type Department Care Team (Late st Contact Info) Description 03/15/2024 4:00 PM EDT Office [place] [address] Denae Wilson MD [facility] [place] [address] Chronic hepatitis C without hepatic coma Social History Tobacco Use Types Packs/Day Years Used Date Smoking Tobacco: Every Day Cigarettes Smokeless Tobacco: Never Alcohol Use Standard Drinks/Week Comments Not Currently 0 (1 standard drink = 0.6 oz pur e alcohol) [facility] Utilities Answer Date Recorded In [...] place to sleep or slept in a long-term (including now)? 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 year old being seen for chronic hepatitis C. Started using IV drugs about 8 years ago Reports being negative for hep C 06/2023 at [facility]. 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 There is cfim-df-mubjqcje mitral regurgitation and mild tricuspid regurgitation. MEDICATIONS Outpatient Medications Marked as Taking for the 03/15/24 encounter (Office Visit) with Denae Wilson MD Medication Sig Dispense Refill gabapentin (Neurontin) 300 mg capsule Take 300 mg by mouth 3 times daily. ALLERGIES Allergies Allergen Reactions Penicillins Hives Tolerated ceftriaxone 09/2023 SOCIAL HISTORY FAMILY HISTORY Vitals: 03/15/24 1604 BP: 150/78 Pulse: 86 Weight: 74.4 kg (164 lb) Height: 175.3 cm (5' 9) PHYSICAL EXAM Ill appearing ASSESSMENT/PLAN The patient's left the appointment within 5 minutes about starting. He laid on the exam table the entire time unable to sit up due to feeling unwell. He stated he was withdrawing from fentanyl and working on detoxing himself at home. After asking him some questions about prior attempts at detox he became upset and left the exam room. His girlfriend remained in the room I asked her to convince him to go to the lab so we could get baseline labs to arrange hep C treatment. If he is able to get these labs done we can see him in the future on a video visit. Time spent with patient: 5 min Time spent reviewing records, documentin min Denae Wilson MD Hepatology and Gastroenterology [facility] AIDAN Monterroso V: [phone] Copy: Raffi Merida DO [address] [place] [address] / [facility] [id number] documented in this encounter Plan of Treatment Upcoming Encounters Date Type Department Care Team (Late st Contact Info) Description 08/01/2024 8:30 AM EST Office [place] [address] Denae Wilson MD [facility] [place] [address] Scheduled Orders Name Type Priority Associated Diagnoses Orde r Schedule Comprehensive metabolic panel Lab Routine Chronic hepatitis C without hepatic coma Expected: 03/15/2024 (Approximate), Expires: 03/16/2025 CBC (with Diff) Lab Routine Chronic hepatitis C without hepatic coma Expected: 03/15/2024 (Approximate), Expires: 03/16/2025 Prothrombin Time Lab Routine Chronic hepatitis C without hepatic coma Expected: 03/15/2024, Expires: 09/14/2024 Hepatitis C RNA, Quantitative, PCR Lab Routine Chronic hepatitis C without hepatic coma Expected: 03/15/2024, Expires: 03/16/2025 Hepatitis B Surface Antigen Lab Routine Chronic hepatitis C without hepatic coma Expected: 03/15/2024, Expires: 09/14/2024 Miscellaneous Lab request Lab Routine Chronic hepatitis C without hepatic coma Expected: 03/15/2024, Expires: 09/14/2024 Liver Fibrosis Panel Lab Routine Chronic hepatitis C without hepatic coma Expected: 03/15/2024, Expires: 09/14/2024 HIV Screen, 4th Generation ([facility]/CGP/APD/NLH) Lab Routine Chronic hepatitis C without hepatic coma Expected: 03/15/2024, Expires: 09/14/2024 documented as of this encounter Visit Diagnoses Diagnosis Chronic hepatitis C without hepatic coma documented in this encounter Care Teams Pari Mutuel Ticket Cashier Relationship Specialty Start Date End Date Raffi Merida DO [address] [place] [address] PCP - General Family Medicine 12/01/23 documented as of this encounter
--- OUTSIDE RECORDS SUMMARY | 2024-07-02 14:28 | XMS_ITS | Encounter Summary ---
Author Organization [facility] Address [facility] [place] [address] Care Team Providers Care Draughtsman Name Role Phone Raffi Merida DO Primary Care Provider [phone] Encounter Details Date Type Department Care Team (Latest Contact Info) Description 03/15/2024 Travel Social History Tobacco Use Types Packs/Day Years Used Date Smoking Tobacco: Every Day Cigarettes Smokeless Tobacco: Never Alcohol Use Standard Drinks/Week Comments Not Currently 0 (1 standard drink = 0.6 oz pur e alcohol) [facility] Utilities Answer Date Recorded In the [...] place to sleep or slept in a correction (including now)? No 11/01/2023 IPV Inpatient Questions [...] 8:30 AM EST Office Visit [place] [address] Denae Wilson MD [facility] [place] [address] documented as of this encounter Visit Diagnoses Not on filedocumented in this encounter Care Teams Draughtsman Relationship Specialty Start Date End Date Raffi Merida DO [address] [place] [id number] PCP - General Family Medicine 12/01/23 documented as of this encounter
--- OUTSIDE RECORDS SUMMARY | 2024-07-02 14:28 | XMS_ITS | Encounter Summary ---
Author Organization [facility] Address [facility] [place] [address] Care Team Providers Care Tan Room Supervisor Name Role Phone Raffi Merida DO Primary Care Provider [phone] Encounter Details Date Type Department Care Team (Late st Contact Info) Description 05/25/2024 Telephone [place] [phone] Spenser Wakefield MD [facility] [place] [address] Social History Tobacco Use Types Packs/Day Years Used Date Smoking Tobacco: Every Day Cigarettes Smokeless Tobacco: Never Alcohol Use Standard Drinks/Week Comments Not Currently 0 (1 standard drink = 0.6 oz pur e alcohol) [facility] Utilities Answer Date Recorded In the past 12 months has e [employer], gas, oil, or water [employer] threatened to shut off services in your [...] place to sleep or slept in a custodial (including now)? No 11/01/2023 IPV Inpatient Questions [...] encounter Miscellaneous Notes * Telephone Encounter - Spenser Wakefield MD - 05/25/2024 5:26 PM EST [facility] CALL: Provider Completing Request: Spenser Wakefield MD Requesting Location: [facility] Consult Duration (total): 45 minutes Was this consult operative? No What was the urgency of this consult as determined by the consulting provider? Urgent Received a call from Hari Alvarado MD at [facility] regarding Marcos Camejo through the transfer center. In summary, Marcos Camejo is a 43 y.o. male who presented to the ED with back pain in the setting of IVDU. He initially presented to the ED yesterday, got blood cultures drawn and was toldto come back today to get an MRI. Blood cultures were positive for MRSA. VSS stable HR 78, BP 130/84, 99% on RA, Afebrile. MRI demonstrates concern for early abscess/phlegmon formation at T10-T11 with associated discitis. Per report, the patient is neurovascularly intact. Dr. Alvarado recognizes thathe is not a surgical candidate but does not feel comfortable managing the MRSA bacteremia as he likely needs an echo and other diagnostic support. Agreed that Mr. Camejo is not a surgical candidateand would benefit from transfer to a medicine service. Given the fact that blood cultures are positive, these can provide the culture data necessary for guided treatment. Dr. Alvarado expressed understanding and was in agreement with the plan. Spenser Wakefield MD Orthopaedic Surgery 7400 documented in this encounter Plan of Treatment Upcoming Encounters Date Type Department Care Team (Late st Contact Info) Description 08/01/2024 8:30 AM EST Office [place] [address] Denae Wilson MD [facility] [place] [address] documented as of this encounter Visit Diagnoses Not on filedocumented in this encounter Care Teams Tan Room Supervisor Relationship Specialty Start Date End Date Raffi Merida DO [address] [place] [id number] PCP - General Family Medicine 12/01/23 documented as of this encounter
--- OUTSIDE RECORDS SUMMARY | 2024-07-02 14:28 | XMS_ITS | Encounter Summary ---
Author Organization [facility] Address [facility] [place] [address] Care Team Providers Care Cafe Server Name Role Phone Raffi Merida DO Primary Care Provider [phone] Encounter Details Date Type Department Care Team (Late st Contact Info) Description 05/24/2024 Interpretation Only [facility] [address] [place] [id number] Live Garvey MD [address] [place] [address] Social History Tobacco Use Types Packs/Day Years Used Date Smoking Tobacco: Every Day Cigarettes Smokeless Tobacco: Never Alcohol Use Standard Drinks/Week Comments Not Currently 0 (1 standard drink = 0.6 oz pur e alcohol) [facility] Utilities Answer Date Recorded In the past 12 months has e EVERYWARE, gas, oil, or water [employer] threatened to shut off services in your [...] 8:30 AM EST Office [place] [id number] Denae Wilson MD [facility] [place] [address] documented as of this encounter Procedures Procedure Name Priority Date/Time Associated Diagnosis Comments XR CHEST PA AND LATERAL STAT 05/24/2024 4:00 PM EST documented in this encounter Results * XR Chest PA & Lateral (Generic) (05/24/2024 4:00 PM EST) PT CLASS E RAD ADMITDTTM [id number] RAD PT RAD INFO [id number]^Stephany patrick^Live RAD EXAM DESC XCXR2^XR Chest 2 Views^RIS RAD WORKSTATION ID [id number] RAD Anatomical Region Laterality Modality Chest N/A Radiographic Huong ging 05/24/2024 4:00 PM EST Impressions 05/24/2024 4:04 PM EST Streaky opacity at the left lung base compatible with atelectasis. ??Infection can have a similar appearance . ??Clinical correlation is suggested. ??Follow-up with radiography to resolution is recommended. Thank you for letting us participate in the care of this patient. ??If you are a health care provider and have any questions regarding this report, please contact the number below. ??For patients who have questions please contact the health child care centre manager that requested your imaging first. ? Electronically signed by: Giancarlo Marino MD, [facility] ([phone]), at 05/24/2024 4:04 PM Narrative 05/24/2024 4:04 PM EST EXAMINATION: XR Chest 2 Views CLINICAL HISTORY: fever to 103 reported from yyareli, nl temp now, nl wbc, nl w/u TECHNIQUE: PA and lateral COMPARISON: None FINDINGS: There are streaky opacity at the left lung base near costophrenic angle, compatible with atelectasis. ??The remaining lungs are aerated with no focal airspace disease. ??No consolidation or pleural effusion The hilar and mediastinal structures are unremarkable. The cardiomediastinal silhouette is within normal limits. Osseous structures are unremarkable. Procedure Note Giancarlo Marino MD - 05/24/2024 EXAMINATION: XR Chest 2 Views CLINICAL HISTORY: fever to 103 reported from y.d., nl temp now, nl wbc, nlw/u TECHNIQUE: PA and lateral COMPARISON: None FINDINGS: There are streaky opacity at the left lung base near costophrenic angle, compatible with atelectasis. The remaining lungs are aerated with nofocal airspace disease. No consolidation or pleural effusion The hilar and mediastinal structures are unremarkable. Thecardiomediastinal silhouette is within normal limits. Osseous structures are unremarkable. IMPRESSION Streaky opacity at the left lung base compatible with atelectasis.Infection can have a similar appearance . Clinical correlation is suggested.Follow-up with radiography to resolution is recommended. Thank you for letting us participate in the care of this patient. If youare a health care provider and have any questions regarding this report,please contact the number below. For patients who have questions please contactthe health child care centre manager that requested your imaging first. Electronically signed by: Giancarlo Marino MD, [facility]([phone]), at 05/24/2024 4:04 PM Live Garvey MD IMG DX ORDERABLES documented in this encounter Visit Diagnoses Not on filedocumented in this encounter Care Teams Cafe Server Relationship Specialty Start Date End Date Raffi Merida DO [address] [place] [address] PCP - General Family Medicine 12/01/23 documented as of this encounter
--- OUTSIDE RECORDS SUMMARY | 2024-07-02 14:28 | XMS_ITS | Encounter Summary ---
[place] [address] Care Team Providers Care Strand Buncher Fine [employer] Name Role Phone Raffi Merida DO Primary Care Provider [phone] Reason for Referral * Consultation (Routine) - Closed Specialty Diagnoses / Procedures Referred By Contac t Referred To Contact Gastroenterology Diagnoses Hepatitis C virus infection without hepatic coma, unspecified chronicity Dysphagia, unspecified type 43 yo M, Hx of IV fentanyl abuse, recently tested positive for hepatitis C (results not immediately available to provider), may have also spontaneusly cleared hepatitis B previously. Also has chronic dysphagia. Raffi Merida DO [address] [place] [address] [facility] [address] [place] [address] Referral ID Status Reason Start Date Expiration Date V isits Requested Visits Authorized [id number] Closed Consult, Test & Treat PCP Updated and/or Approved 11/22/2023 05/24/2024 6 6 Encounter Details Date Type Department Care Team (Latest Contact Info) Description 12/01/2023 Transcribe Orders eDH Incoming Referrals [phone] Raffi Merida DO [address] [place] [address] Hepatitis C virus infection without hepatic coma, unspecified chronicity; Dysphagia, unspecified type Social History Tobacco Use Types Packs/Day Years Used Date Smoking Tobacco: Every Day Cigarettes Smokeless Tobacco: Never Alcohol Use Standard Drinks/Week Comments Not Currently 0 (1 standard drink = 0.6 oz pur e alcohol) [facility] Utilities Answer Date Recorded In the past [...] place to sleep or slept in a [facility] (including now)? No 11/01/2023 IPV Inpatient Questions [...] 8:30 AM EST Office [place] [address] Denae Wilson MD [facility] [place] [address] Scheduled Referrals Name Type Priority Associated Diagnoses Order Schedule Referral to Gastroenterology Outpatient Referral Routine Hepatitis C virus infection without hepatic coma, unspecified chronicity Dysphagia, unspecified type Ordered: 12/01/2023 documented as of this encounter Visit Diagnoses Diagnosis Hepatitis C virus infection without hepatic coma, unspecified chronicity Dysphagia, unspecified type documented in this encounter Care Teams Strand Buncher Fine Wire Relationship Specialty Start Date End Date Raffi Merida DO [employer] [place] [address] [place] [address] PCP - General Family Medicine 12/01/23 documented as of this encounter
--- OUTSIDE RECORDS SUMMARY | 2024-07-02 14:28 | XMS_ITS | Clinical Summary ---
[place] [address] Care Team Providers Care Supervisor Electron Tube Processing Name Role Phone Raffi Merida Martita SAUNDERS Primary Care Provider [phone] Allergies No known active allergies Medications Medication Sig Dispensed Refills Start Date End Date Status Suboxone 12-[address] 2 Film under the tongue daily. 09/25/2023 Active cholecalciferol (Vitamin D) 1,000 unit tablet Take 1 tablet by mouth daily. 09/21/2022 Active naloxone (Narcan) 4 mg/actuation [place], Non-Aerosol 1 each by Intra-nasally route as needed (Opioid Rescue). 4 mg (contents of 1 nasal spray) as a single dose in one nostril; may repeat every 2 to 3 minutes in alternating nostrils until medical assistance becomes available 2 each 10/31/2023 Active Additional Information Patient not taking.Reported on 03/15/2024 gabapentin (Neurontin) 300 mg capsule Take 300 mg by mouth 3 times daily. Active Active Problems Problem Noted Date Diagnosed Date Cellulitis 11/01/2023 Leg swelling 10/28/2023 Bacteremia due to Staphylococcus aureus 09/30/19 24 Encounters Date Type Department Care Team Description 05/25/2024 [place] [address] Hari Capellan MD 05/25/2024 [place] [address] Spenser Wakefield MD 05/25/2024 Interpretation Only [address] [address] Hari Alvarado MD 05/25/2024 Interpretation Only [address] [address] Hari Alvarado MD 05/25/2024 Interpretation Only [address] [address] Hari Alvarado MD 05/25/2024 Interpretation Only [address] [address] Hari Alvarado MD 05/24/2024 Lab [place] [address] Live Garvey MD Encounter for other specified special examinations 05/24/2024 Interpretation Only [address] [phone] Live Garvey MD 05/24/2024 [place] [address] Live Garvey MD 05/24/2024 Interpretation Only [address] [address] Live Garvey MD from Last 3 Months Social History Tobacco Use Types Packs/Day Years Used Date Smoking Tobacco: Every Day Cigarettes Smokeless Tobacco: Never Tobacco Cessation:Ready to Q uit: Not Asked; Counseling Given: Not Answered Alcohol Use Standard Drinks/Week Comments Not Currently 0 (1 standard drink = 0.6 oz pur e alcohol) [facility] Utilities Answer Date Recorded In the past 12 months has [employer] electric, gas, oil, or water company threatened [...] place to sleep or slept in a nursing home (including now)? No 11/01/2023 IPV Inpatient Questions [...] on file Sexual Orientation Not on file Last Filed Vital Signs Vital Sign Reading Time Taken Comments Blood Pressure 150/78 03/15/2024 4:04 PM EDT Pulse 86 03/15/2024 4:04 PM EDT Temperature 36.9 ??C (98.4 ??F) 11/02/2023 12:00 PM E DT Respiratory Rate 17 11/02/2023 12:00 PM EDT Oxygen Saturation 98% 11/02/2023 12:00 PM EDT Inhaled Oxygen Concentration - - Weight 74.4 kg (164 lb) 03/15/2024 4:04 PM EDT Height 175.3 cm (5' 9) 03/15/2024 4:04 PM EDT Body Mass Index 24.22 03/15/2024 4:04 PM EDT Plan of Treatment Upcoming Encounters Date Type Department Care Team (Late st Contact Info) Description 08/01/2024 8:30 AM EST Office [place] [address] Denae Wilson MD [facility] [place] [address] Health Maintenance Due Date Last Done Comments Pneumococcal Vaccine: At-Ris k 5-64yrs (1 of 2 - PCV) 1986 Lipid Screening 1998 Hepatitis B vaccine (0-59 yr s) (1) 1999 Tetanus/Diphtheria/Pertussis Vaccines (1 - Tdap) 1999 Covid-19 Vaccine ( - 2023-2 5 season) 2024 Influenza (Flu) vaccine (1 o f 1 - Influenza standard series) 03/19/2024 HIV screen Completed 10/01/2023 Hepatitis C Screening Completed 10/04/2023 , 10/01/2023, 10/01/2023 Diabetes Screening (HgbA1C o r Glucose) Discontinued 10/31/2023, 10/30/2023, 10/29/2023, Additional history exists Procedures Procedure Name Priority Date/Time Associated Diagnosis Comments MRI THORACIC SPINE WITH/WO CONTRAST STAT 05/25/2024 4:17 PM EST MRI LUMBAR SPINE WITH/WO CONTRAST STAT 05/25/2024 4:17 PM EST MRI CERVICAL SPINE WITH/WO CONTRAST STAT 05/25/2024 4:[address] HEAD WO CONTRAST (GENERIC) STAT 05/25/2024 10:37 AM EST XR CHEST PA AND LATERAL STAT 05/24/2024 4:[address] ABDOMEN AND PELVIS W CONTRAST STAT 05/24/2024 2:57 PM EST PATHOLOGY SLIDE REVIEW Routine 05/24/2024 2:07 PM EST Encounter for other specified special examinations BLOOD CULTURE Routine 05/24/2024 2:07 PM EST BLOOD CULTURE Routine 05/24/2024 2:07 PM EST BASIC METABOLIC PANEL Routine 10/31/2023 3:01 AM EDT HEPATITIS C RNA, QUANTITATIVE, PCR Routine 10/04/2023 4:54 AM EDT HIV SCREEN, 4TH GENERATION ([facility] [place]/CGP/APD/NLH) Routine 10/01/2023 8:25 PM EDT from Last 3 Months or Most Recently Relevant to Health Maintenance Results * MRI Lumbar Spine wwo Contrast (05/25/2024 4:17 PM EST) PT CLASS E RAD ADMITDTTM [id number] RAD PT [facility] MD INFO [id number]^Potter ^Hari [facility] EXAM DESC MRLSWWO^MRI Spine Lumbar w/ + w/o Contrast^RIS [facility] WORKSTATION ID [id number] [facility] Anatomical Region Laterality Modality L-spine Magnetic Resonan [...] who have questions please contact the health assistant child care teacher that requested your imaging first. ? Electronically signed by: Augustus Mckeon [facility] ([phone]), at 05/25/2024 4:31 PM Narrative 05/25/2024 4:31 PM EST EXAMINATION: MRI [...] patients who have questions please contactthe health assistant child care teacher that requested your imaging first. Electronically signed by: Augustus Mckeon [facility]([phone]), at 05/25/2024 4:31 PM Hari Alvarado MD [facility] MRI ORDERABLES * MRI Thoracic Spine wwo Contrast (05/25/2024 4:17 PM EST) PT CLASS E RAD ADMITDTTM [id number] RAD PT [facility] INFO [id number]^Jenny ^Hari RAD EXAM DESC MRTSWWO^MRI Spine Thoracic w/ + w/o Contrast^RIS [facility] WORKSTATION ID [id number] [facility] Anatomical Region Laterality Modality T-spine Magnetic Resonan ce 05/25/2024 4:11 PM EST [...] who have questions please contact the health assistant child care teacher that requested your imaging first. ? Electronically signed by: Augustus Mckeon [facility] ([phone]), at 05/25/2024 4:31 PM Narrative 05/25/2024 4:31 PM EST EXAMINATION: MRI [...] patients who have questions please contactthe health assistant child care teacher that requested your imaging first. Electronically signed by: Augustus Mckeon [facility]([phone]), at 05/25/2024 4:31 PM Hari Alvarado MD IMG MRI ORDERABLES * MRI Cervical Spine wwo Contrast (05/25/2024 4:17 PM EST) PT CLASS E RAD ADMITDTTM [id number] [facility] PT [facility] INFO [id number]^Jenny ^Hari RAD EXAM DESC MRCSPWWO^MRI Spine Cervical w/ + w/o Contrast^RIS [facility] WORKSTATION ID [id number] [facility] Anatomical Region Laterality Modality C-spine Magnetic Resonan ce 05/25/2024 4:11 PM EST [...] who have questions please contact the health assistant child care teacher that requested your imaging first. ? Electronically signed by: Augustus Mckeon [facility] ([phone]), at 05/25/2024 4:31 PM Narrative 05/25/2024 4:31 PM EST EXAMINATION: MRI [...] patients who have questions please contactthe health assistant child care teacher that requested your imaging first. Electronically signed by: Augustus Mckeon [facility]([phone]), at 05/25/2024 4:31 PM Hari Alvarado MD IMG MRI ORDERABLES * CT Head wo Contrast (Generic) (05/25/2024 10:37 AM EST) PT CLASS E RAD ADMITDTTM [id number] [facility] PT [facility] INFO [id number]^Jenny ^aHri RAD EXAM DESC CTHEAD^CT Head w/o Contrast^RIS [facility] WORKSTATION ID [id number] RAD Anatomical Region Laterality Modality Head Computed Tomogra phy 05/25/2024 10:3 4 AM EST Impressions 05/25/2024 10:53 AM EST No acute intracranial findings. I have personally reviewed the image(s) and the resident's interpretation and agree with the findings, Shyann Hoff MD at 05/25/2024 10:53 AM Thank you for letting us participate in the care of this patient. ??If you are a health care provider and have any questions regarding this report, please contact the number below. ??For patients who have questions please contact the health assistant child care teacher that requested your imaging first. ? Electronically signed by: Shyann Hoff MD, [facility] ([phone]), at 05/25/2024 10:53 AM Narrative 05/25/2024 10:53 AM EST EXAMINATION: CT Head w/o Contrast CLINICAL HISTORY: IVDU, fever, headache, vomiting. Concern for intracranial abscess TECHNIQUE: CT head performed without intravenous contrast administration. COMPARISON: CT head 04/22/2023 FINDINGS: No acute intracranial hemorrhage, mass effect, or extra-axial collection. Mendoza-white differentiation is maintained. Small area of right anterior temporal lobe encephalomalacia, likely chronic sequela of remote trauma. Normal caliber ventricles. Patent basal cisterns. No calvarial fracture or extracalvarial soft tissue swelling. Mastoid air cells are well aerated. Procedure Note Shyann Hoff MD - 05/25/2024 EXAMINATION: CT Head w/o Contrast CLINICAL HISTORY: IVDU, fever, headache, vomiting. Concern forintracranial abscess TECHNIQUE: CT head performed without intravenous contrast administration. COMPARISON: CT head 04/22/2023 FINDINGS: No acute intracranial hemorrhage, mass effect, or extra-axialcollection. Mendoza-white differentiation is maintained. Small area of right anteriortemporal lobe encephalomalacia, likely chronic sequela of remote trauma. Normalcaliber ventricles. Patent basal cisterns. No calvarial fracture or extracalvarialsoft tissue swelling. Mastoid air cells are well aerated. IMPRESSION No acute intracranial findings. I have personally reviewed the image(s) and the resident's interpretationand agree with the findings, Shyann Hoff MD at 05/25/2024 10:53 AM Thank you for letting us participate in the care of this patient. If youare a health care provider and have any questions regarding this report,please contact the number below. For patients who have questions please contactthe health assistant child care teacher that requested your imaging first. Electronically signed by: Shyann Hoff MD, [facility]([phone]), at 05/25/2024 10:53 AM Hari Alvarado MD IMG CT ORDERABLES * XR Chest PA & Lateral (Generic) (05/24/2024 4:00 PM EST) PT CLASS E RAD ADMITDTTM [id number] RAD PT RAD INFO [id number]^Stephany patrick^Live RAD EXAM DESC XCXR2^XR Chest 2 Views^RIS [facility] WORKSTATION ID [id number] [facility] Anatomical Region Laterality Modality Chest N/A Radiographic [...] who have questions please contact the health assistant child care teacher that requested your imaging first. ? Electronically signed by: Giancarlo Marino MD, [facility] ([phone]), at 05/24/2024 4:04 PM Narrative 05/24/2024 4:04 PM EST EXAMINATION: XR Chest 2 Views CLINICAL HISTORY: fever to 103 reported from y.d., nl temp now, nl wbc, nl w/u [...] patients who have questions please contactthe health assistant child care teacher that requested your imaging first. Electronically signed by: Giancarlo Marino MD, [facility]([phone]), at 05/24/2024 4:04 PM Live Garvey MD IMG DX ORDERABLES * CT Abdomen & Pelvis w Contrast (05/24/2024 2:57 PM EST) PT CLASS E RAD ADMITDTTM [id number] [facility] PT [facility] INFO [id number]^Stephany elizondon^Live RAD EXAM DESC CTAPW^CT Abdomen and Pelvis w/ Contrast^RIS [facility] WORKSTATION ID [id number] [facility] Anatomical Region Laterality Modality Abdomen, Pelvis Computed Tomogra phy 05/24/2024 2:57 PM EST Impressions 05/24/2024 3:12 PM EST 1. ??Persistent hepatosplenomegaly with slight interval increase in measured size of both the liver and the spleen. 2. ??Bibasilar atelectases. Thank you for letting us participate in the care of this patient. ??If you are a health care provider and have any questions regarding this report, please contact the number below. ??For patients who have questions please contact the health assistant child care teacher that requested your imaging first. ? Electronically signed by: Keny Leos MD, [facility] ([phone]), at 05/24/2024 3:12 PM Narrative 05/24/2024 3:12 PM EST EXAMINATION: CT Abdomen and Pelvis w/ Contrast CLINICAL HISTORY: Abdominal Pain TECHNIQUE: Helical CT of the abdomen and pelvis following the intravenous administration of 100 mL of Omnipaque 350. Oral contrast was not administered. COMPARISON: September 28, 2023 FINDINGS: Lower chest: Bibasilar atelectases. No pericardial or pleural effusion. Liver: Enlarged at 20 cm. Normal attenuation. No focal observations. Bile ducts: Nondilated. Gallbladder: No calcified gallstones. Normal caliber wall. Pancreas: Normal attenuation without ductal dilatation. Spleen: Enlarged at 15.4 cm craniocaudally compared to 14.4 cm previously. Calcified granulomas are again seen. Adrenals: Normal. Kidneys: Normal. Urinary Bladder: Normal. Vasculature: No abdominal aortic aneurysm. Lymph Nodes: No enlarged lymph nodes. Bowel: No abnormal small bowel dilatation or air-fluid levels. Air and stool project in the colon. Normal retrocecal appendix. Peritoneum and retroperitoneum: No free fluid. No pneumoperitoneum. No loculated fluid collection or mesenteric inflammation. Abdominal wall: Normal. Reproductive organs: Normal. Osseous structures: Degenerative change at L1-L2, and an unfused apophysis L3 vertebral body, unchanged. No suspicious lesions. Procedure Note Keny Leos MD - 05/24/2024 EXAMINATION: CT Abdomen and Pelvis w/ Contrast CLINICAL HISTORY: Abdominal Pain TECHNIQUE: Helical CT of the abdomen and pelvis following theintravenous administration of 100 mL of Omnipaque 350. Oral contrast was notadministered. COMPARISON: September 28, 2023 FINDINGS: Lower chest: Bibasilar atelectases. No pericardial or pleural effusion. Liver: Enlarged at 20 cm. Normal attenuation. No focal observations. Bile ducts: Nondilated. Gallbladder: No calcified gallstones. Normal caliber wall. Pancreas: Normal attenuation without ductal dilatation. Spleen: Enlarged at 15.4 cm craniocaudally compared to 14.4 cmpreviously. Calcified granulomas are again seen. Adrenals: Normal. Kidneys: Normal. Urinary Bladder: Normal. Vasculature: No abdominal aortic aneurysm. Lymph Nodes: No enlarged lymph nodes. Bowel: No abnormal small bowel dilatation or air-fluid levels. Air andstool project in the colon. Normal retrocecal appendix. Peritoneum and retroperitoneum: No free fluid. No pneumoperitoneum. Noloculated fluid collection or mesenteric inflammation. Abdominal wall: Normal. Reproductive organs: Normal. Osseous structures: Degenerative change at L1-L2, and an unfused apophysisL3 vertebral body, unchanged. No suspicious lesions. IMPRESSION 1. Persistent hepatosplenomegaly with slight interval increase inmeasured size of both the liver and the spleen. 2. Bibasilar atelectases. Thank you for letting us participate in the care of this patient. If youare a health care provider and have any questions regarding this report,please contact the number below. For patients who have questions please contactthe health assistant child care teacher that requested your imaging first. Electronically signed by: Keny Leos MD, [facility]([phone]), at 05/24/2024 3:12 PM Live Garvey MD IM CT ORDERABLES * Pathology Slide Review (05/24/2024 2:07 PM EST) Pathology Slide Review RBCs: Mild microcytic anemia with target cells. WBCs: Scattered atypical lymphocytes. Platelets: Unremarkable. 05/25/2024 10:36 AM EST [facility] Signing Pathologist This result has been reviewed by Farzad Mortensen MD on 05/25/24 at 10:36 AM. 05/25/2024 10:36 AM [facility] Blood VENOUS BLOOD SPECIMEN / Unknown 05/24/2024 2:07 PM EST 05/24/2024 10:18 PM EST Narrative [facility] - 05/25/2024 10:36 AM EST Scattered atypical lymphocytes are seen. These can be seen as reactive changes to infection, inflammatory conditions, or drug effect. If clinical concern persists after reactive causes ruled out, peripheral blood flow could be considered to rule out hematolymphoid process. Live Garvey MD HEMATOLOGY ORDERA BLES [facility] [place] [address] * (ABNORMAL) Blood culture (05/24/2024 2:07 PM EST) Only the most recent of2 resultswithin the time period is included. Blood Culture Methicillin Resistant Staphylococcus aureus(Critical) VITEK 2 METHOD 05/27/2024 7:22 AM [facility] Comment: detected by PCR Isolate saved. If future testing is required, contact the Microbiology [facility]. Gram Stain Anaerobic Bottle: Gram positive cocci in clusters(Critical ) 05/27/2024 7:22 AM [facility] Gram Stain Aerobic Bottle: Gram positive cocci in clusters(Critical ) 05/27/2024 7:22 AM [facility] Blood VENOUS BLOOD SPECIMEN [...] Garvey MD MICROBIOLOGY - BL OOD ORDERABLES [facility] [place] [address] * (ABNORMAL) Basic Metabolic Panel (non-fasting) (10/31/2023 3:01 AM EDT) Glucose 201(H) 65 - 199 mg/dL [facility] Comment:Diabetes: >=200 mg/d L plus symptoms Blood Urea Nitrogen 8(L) 10 - 20 mg/dL [facility] Creatinine 0.78(L) 0.80 - 1.50 mg/dL [facility] Sodium 139 135 - 145 mmol/L [facility] Potassium 3.4(L) 3.5 - 5.0 mmol/L [facility] Comment: Please note: ??Patients with WBC >100,000 may have falsely elevated Potassium levels. ??For accurate Potassium quantification in these patients send serum separator tube (gold top) for subsequent determinations. ??Contact the Clinical Chemistry Laboratory if there are any questions. Chloride 108(H) 98 - 107 mmol/L [facility] Carbon Dioxide 22 22 - 31 mmol/L [facility] Anion Gap 9 5 - 15 mmol/L [facility] Calcium 8.2(L) 8.5 - 10.5 mg/dL [facility] Est Glomerular Filtration Rate 113 >=60 mL/min/1. 73 m?? [facility] Comment: This patient's estimated GFR was calculated using the 2020 CKD-EPI equation. The estimated GFR can vary from the measured GFR by up to 30% in the absence of rapidly changing kidney function. Assessment of the estimated GFR is not appropriate when creatinine concentrations are rapidly changing. For clinical situations in which a more precise estimate of GFR is necessary, consider alternative methods of GFR estimation such as a 24-hour urine creatinine clearance. Assignment of CKD stage 1-5 for patients with an eGFR near the transition point between stages may be based on clinical assessment of muscle mass and symptoms in addition to eGFR. Blood 10/31/2023 3:01 AM EDT 10/31/2023 3:20 AM EDT Narrative Resulting Agency Comment Spec In Lab Leatha Murcia MD CHEMISTRY ORDERABLE S Performing Organization Address [facility]/ZIP Co de Phone Number [facility] [place] [address] * Hepatitis C RNA, quantitative, PCR (10/04/2023 4:54 AM EDT) HCV Viral Load 438,692 IU/mL [facility] HCV Viral Load Result: [id number] IU/mL Indication for Study: Hepatitis C Infection Analysis: The Ignacio Alinity m HCV assay is an in vitro reverse transcriptase polymerase chain reaction (RT-PCR)for the quantification of hepatitis C viral (HCV) RNA in human serum or plasma (EDTA) from HCV-infected individuals. Sample: plasma/serum Method: Ignacio Alinity m HCV Assay Linear Range: 12 IU/mL - 100,000,000IU/mL Note: The Ignacio Alinity HCV Assay has been approved by the U.S. Food and Drug Administration. [facility] Comment: [VERIFIED DATE]10.05.23 Verified By:Milo Canales (Electronic Signature) Blood 10/04/2023 4:54 AM EDT 10/04/2023 7:29 AM EDT Narrative Resulting Agency Comment Spec In Lab Negar Obregon MD MOLECULAR ORDERABLE S Performing Organization Address [facility]/ZIP Co de Phone Number [facility] [place] [address] * HIV Screen, 4th Generation ([facility] [place]/CGP/APD/NLH) (10/01/2023 8:25 PM EDT) Pathologist [facility] HIV Ab/Ag Screen Negative Negative [facility] Comment: This 4th Generation HIV test screens for the presence of the HIV-1 p24 antigen as well as antibodies reactive against HIV-1 and HIV-2. A negative screen does not rule out an acute HIV infection. If acute HIV infection is suspected, testing should be repeated in 2 - 3 weeks or HIV nucleic acid testing performed. HIV Comment Low Risk of HIV Infection [facility] Blood 10/01/2023 8:25 PM EDT 10/01/2023 8:31 PM EDT Narrative Resulting Agency Comment Spec In Lab Marisela Jones DISTRIBUTION ENGINEER CHEMISTRY ORDERABLE S [facility] [place] [address] from Last 3 Months or Most Recently Relevant to Health Maintenance Advance Directives * Attempt Cardiopulmonary Resuscitation - Inpatient (Latest Code Status on File) Date Activated Date Inactivated Comments 11/01/2023 9:35 AM 11/02/2023 3:48 PM Question Answer Comments Code Status decision made by: Patient * Attempt Cardiopulmonary Resuscitation - Inpatient Date Activated Date Inactivated Comments 10/28/2023 1:48 PM 10/31/2023 4:41 PM Question Answer Comments Code Status decision made by: Patient * Attempt Cardiopulmonary Resuscitation - Inpatient Date Activated Date Inactivated Comments 09/30/2023 5:17 PM 10/04/2023 8:37 PM Question Answer Comments Code Status decision made by: Patient Care Teams Supervisor Electron Tube Processing Relationship Specialty Start Date End Date Raffi Merida DO [address] [place] [id number] PCP - General Family Medicine 12/01/23
--- OUTSIDE RECORDS SUMMARY | 2024-07-02 14:28 | XMS_ITS | Encounter Summary ---
Author Organization [facility] [place] [address] Care Team Providers Care Club Lounge Attendant Name Role Phone Raffi Merida DO Primary Care Provider [phone] Encounter Details Date Type Department Care Team (Late st Contact Info) Description 05/24/2024 Lab [place] [address] Live Garvey MD [address] [place] [address] Encounter for other specified special examinations Social History Tobacco Use Types Packs/Day Years Used Date Smoking Tobacco: Every Day Cigarettes Smokeless Tobacco: Never Alcohol Use Standard Drinks/Week Comments Not Currently 0 (1 standard drink = 0.6 oz pur e alcohol) [facility] Utilities Answer Date Recorded In the past 12 months has [employer], gas, oil, or water [employer] threatened to shut off services in your [...] place to sleep or slept in a [place] health care facility (including now)? No 11/01/2023 IPV Inpatient Questions [...] 8:30 AM EST Office [place] [address] Denae Wilson MD [facility] [place] [address] documented as of this encounter Procedures Procedure Name Priority Date/Time Associated Diagnosis Comments PATHOLOGY SLIDE REVIEW Routine 05/24/2024 2:07 PM EST Encounter for other specified special examinations documented in this encounter Results * Pathology Slide Review (05/24/2024 2:07 PM EST) Pathology Slide Review RBCs: Mild microcytic anemia with target cells. WBCs: Scattered atypical lymphocytes. Platelets: Unremarkable. 05/25/2024 10:36 AM EST [facility] Signing Pathologist This result has been reviewed by Farzad Mortensen MD on 05/25/24 at 10:36 AM. 05/25/2024 10:36 AM EST [facility] Blood VENOUS BLOOD SPECIMEN / Unknown 05/24/2024 2:07 PM EST 05/24/2024 10:18 PM EST Narrative [facility] - 05/25/2024 10:36 AM EST Scattered atypical lymphocytes are seen. These can be seen as reactive changes to infection, inflammatory conditions, or drug effect. If clinical concern persists after reactive causes ruled out, peripheral blood flow could be considered to rule out hematolymphoid process. Live Garvey MD HEMATOLOGY ORDERA BLES [facility] [place] [id number] documented in this encounter Visit Diagnoses Diagnosis Encounter for other specified special examinations documented in this encounter Care Teams Club Lounge Attendant Relationship Specialty Start Date End Date Raffi Merida DO [address] [place] [address] PCP - General Family Medicine 12/01/23 documented as of this encounter
--- OUTSIDE RECORDS SUMMARY | 2024-07-02 14:28 | XMS_ITS | Encounter Summary ---
Author Organization [facility] [place] [address] Care Team Providers Care Filament Coil Winder Name Role Phone Raffi Merida DO Primary Care Provider [phone] Encounter Details Date Type Department Care Team (Late st Contact Info) Description 05/25/2024 Telephone [place] [address] Hari Capellan MD [facility] [place] [address] Social History Tobacco Use Types Packs/Day Years Used Date Smoking Tobacco: Every Day Cigarettes Smokeless Tobacco: Never Alcohol Use Standard Drinks/Week Comments Not Currently 0 (1 standard drink = 0.6 oz pur e alcohol) [facility] Utilities Answer Date Recorded In the past 12 months has e [employer], gas, oil, or water [employer] threatened to shut off services in your [...] place to sleep or slept in a jail (including now)? No 11/01/2023 IPV Inpatient Questions [...] 8:30 AM EST Office [place] [address] Denae Wilson MD [facility] [place] [address] documented as of this encounter Visit Diagnoses Not on filedocumented in this encounter Care Teams Filament Coil Winder Relationship Specialty Start Date End Date Raffi Merida DO [facility] [place] [address] PCP - General Family Medicine 12/01/23 documented as of this encounter
--- OUTSIDE RECORDS SUMMARY | 2024-07-02 14:28 | XMS_ITS | Encounter Summary ---
Author Organization [facility] [place] [address] Care Team Providers Care Maintenance Director Name Role Phone Raffi Merida DO Primary Care Provider [phone] Encounter Details Date Type Department Care Team (Late st Contact Info) Description 05/25/2024 Interpretation Only [facility] [address] [place] [address] Hari Alvarado MD [address] [place] [address] Social History Tobacco Use Types Packs/Day Years Used Date Smoking Tobacco: Every Day Cigarettes Smokeless Tobacco: Never Alcohol Use Standard Drinks/Week Comments Not Currently 0 (1 standard drink = 0.6 oz pur e alcohol) [facility] Utilities Answer Date Recorded In the past 12 months has e [employer], gas, oil, or water [employer] threatened to shut off services in your [...] place to sleep or slept in a half-way (including now)? No 11/01/2023 IPV Inpatient Questions [...] 8:30 AM EST Office [place] [address] Denae Wilson MD [facility] [address] documented as of this encounter Procedures Procedure Name Priority Date/Time Associated Diagnosis Comments MRI THORACIC SPINE WITH/WO CONTRAST STAT 05/25/2024 4:17 PM EST documented in this encounter Results * MRI Thoracic Spine wwo Contrast (05/25/2024 4:17 PM EST) PT CLASS E RAD ADMITDTTM [id number] RAD PT RAD INFO [id number]^Potter ^Hari RAD EXAM DESC MRTSWWO^MRI Spine Thoracic w/ + w/o Contrast^RIS RAD WORKSTATION ID [id number] RAD Anatomical Region Laterality Modality T-spine Magnetic Resonan [...] who have questions please contact the health client care representative that requested your imaging first. ? Narrative [...] patients who have questions please contactthe health client care representative that requested your imaging first. Hari Alvarado MD IMG MRI ORDERABLES documented in this encounter Visit Diagnoses Not on filedocumented in this encounter Care Teams Maintenance Director Relationship Specialty Start Date End Date Raffi Merida DO [address] [place] [address] PCP - General Family Medicine 12/01/23 documented as of this encounter
--- OUTSIDE RECORDS SUMMARY | 2024-07-02 14:28 | XMS_ITS | Encounter Summary ---
[place] [address] Care Team Providers Care Hospitalist Name Role Phone Milo Baer MD Primary Care Provider [phone] Reason for Visit * Auth/Cert (Routine) Specialty Diagnoses / Procedures Referred By Contac t Referred To Contact Diagnoses Cellulitis Procedures EMERGENCY IPI Zachary Camp MD [facility] [address] [facility] Referral ID Status Reason Start Date Expiration Date Visits Re quested Visits Authorized [id number] 1 1 Encounter Details Date Type Department Care Team (Late st Contact Info) Description 11/02/2023 9:15 AM EDT Anesthesia Event [place] [address] Leesa Peacock MD [facility] DR ANESTHESIOLOGY [place] [address] Diana Massey CRNA Anesthesia Record Procedure Summary Procedure Name Responsible Anesthesiologist Anesthesia Start Time Anesthesia Stop Time TRANSESOPHAGEAL ECHOCARDIOGRAM (WRVU 2.3) Leesa Peacock MD 11/02/23 0915 11/02/23 1005 Events Date Time Event Comment 11/02/2023 0915 AN Verify 0915 Start 0915 An Start Data 0924 Anesthesia Ready 0956 an stop data 1005 Recovery or ICU Handoff Wilma ent care was transferred to the destination unit staff after review of the patient's medical history, current anesthetic/surgical status and plan, according to the Provider Handoff Checklist. 1005 Stop 1012 Meds Name Total Midazolam 2 mg IV Lidocaine 50 mg Propofol 120 mg Propofol INF 361.13 mg dexmedeTOMIDine 8 mcg lactated ringers 200 mL * Agents Name O2 Air N2O O2 Auxiliary Flowmeter 1 * Blood No blood administrations on file. Lines, Drains, and Airways Type Details Placement Removal Wound 10/01/23; 1640; Y; R ight; hand 10/01/23 1640 by Shara Arora, health/safety job titles 10/04/23; 1338; Y; L eft, posterior; hand; pt scratching at scabs, open scabs on back of hand 10/04/23 1338 by Roma Valdez RN PIV 11/02/23; 0617; drtd-[id number] catheter system; 20 gauge (1.16 INCHES); basilic vein (medial side of arm), right; Anatomical Landmarks; US Not Used; ROLANDO/DAVIDRN; distraction, tolerated well, appears comfortable; 1; cephalic vein (lateral side of arm), right; removed per patient; 11/02/23; 1339 11/02/23 0617 by Emerson Thomas RN 11/02/23 1339 by Kenia Abernathy, DAVID documented in this encounter Social History Tobacco Use Types Packs/Day Years Used Date Smoking Tobacco: Every Day Cigarettes Smokeless Tobacco: Never Alcohol Use Standard Drinks/Week Comments Not Currently 0 (1 standard drink = 0.6 oz pur e alcohol) [facility] Utilities Answer Date Recorded In the past 12 months has [employer], oil, or water [employer] threatened to shut off services in your [...] in a fpc (including now)? No 11/01/2023 DH IPV Inpatient [...] on file documented as of this encounter OR Notes * Anesthesia Postprocedure Evaluation - Leesa Peacock MD - 11/02/2023 10:51 AM EDT Department of Anesthesiology Post-procedure Note Patient: Marcos Camejo Procedure Summary Date: 11/02/23 Room / Location: [facility] / [facility] OR Anesthesia Start: 914 Anesthesia Stop: 1004 Procedure: TRANSESOPHAGEAL ECHOCARDIOGRAM (WRVU 2.3) Diagnosis: (Bacteremia) Surgeons: Woody Schuler MD Responsible Provider: Leesa Peacock MD Anesthesia Type: MAC ASA Status: 3 All Anesthesia Providers: Anesthesiologist: Leesa Peacock MD FINE ARTIST: Diana Massey CRNA Vitals Value Taken Time BP 123/88 11/02/23 1030 Temp Pulse 66 11/02/23 1036 Resp 17 11/02/23 1036 SpO2 99 % 11/02/23 1039 Pain Level Vitals shown include unfiled device data. Patient Location: PACU/[facility] Level of Consciousness: Awake and Alert Pain Management: Satisfactory Analgesia PONV: None Cardiovascular Status: At Baseline Respiratory Status: At Baseline Postoperative Fluid Status: Possible Anesthetic Complications: NONE apparent at time of evaluation Final Primary Anesthesia Type: MAC (The anesthetic type performed was the same as planned.) Comments: * Anesthesia Preprocedure Evaluation - Leesa Peacock MD - 11/02/2023 9:02 AM EDT Pre-Anesthesia Evaluation for: Marcos Camejo a 43 y.o. male. Procedure(s): TRANSESOPHAGEAL ECHOCARDIOGRAM (VU 2.3) Patient Active Problem List Diagnosis Date Noted ??? *Cellulitis 11/01/2023 ??? Leg swelling 10/28/2023 ??? Bacteremia due to Staphylococcus aureus 09/30/2023 No past medical history on file. No past surgical history on file. Social History Tobacco Use ??? Smoking status: Every Day Packs/day: 1 Types: Cigarettes ??? Smokeless tobacco: Never Substance Use Topics ??? Alcohol use: Not Currently Social History Substance and Sexual Activity Drug Use Yes ??? Frequency: 1.0 times per week ??? Types: Methamphetamines, Opioids Allergies Allergen Reactions ??? Penicillins Hives Tolerated ceftriaxone 09/2023 Medications: MAR and/or home medications have been reviewed. Physical Exam: Preprocedure Vitals Current as of 11/02/23 0902 BP: 133/79 Pulse: Resp: 19 SpO2: 98 Temp: 36.3 ??C (97.3 ??F) Height: 175.3 cm (5' 9) (10/31/23) Weight: 80.7 kg (178 lb) (10/31/23) BMI: 26.28 IBW: 70.7 kg (155 lb 15.1 oz) Last edited 11/02/23 0714 by EM Airway Assessment: Mallampati: I TM distance: >3 FB Neck ROM: full Cardiovascular Assessment: Rhythm: regular Rate: normal Pulmonary Assessment: unlabored breathing Dental Assessment: - normal exam Misc Assessment: IV access: Peripheral line Last Filed Perioperative Cognitive Screening None Anesthesia Plan: ASA 3 MAC, with a(n) intravenous induction 43 y.o., 80 kg male presenting for MARIBEL for evaluation for endocarditis and mitral/tricuspid regurgitation PMH significant for IVDU, Hep C with recent MSSA bacteremia in 09/2023. Presented on 10/27 with volume overload, diuresed and now euvolemic. Allergy to PCN. No prior anesthesia records. TTE from Septemberin nl EF, nl WMAs, MR, TR Lab Results Component Value Date HGB 10.1 (L) 10/31/2023 PLATELET 260 10/31/2023 NA 139 10/31/2023 K 3.4 (L) 10/31/2023 CREATININE 0.78 (L) 10/31/2023 Anesthetic Plan: MAC Region - Other Informed Consent: Anesthetic plan and risks discussed with patient. Plan discussed with FINE ARTIST and attending. Anesthesia Screening documented in this encounter Plan of Treatment Upcoming Encounters Date Type Department Care Team (Late st Contact Info) Description 08/01/2024 8:30 AM EST Office Visit [place] [address] Denae Wilson MD [facility] [address] [place] [address] documented as of this encounter Visit Diagnoses Not on filedocumented in this encounter Administered Medications Inactive Administered Medications - up to 3 most recent administrations Medication Order MAR Action Action Date Dose Rate Site dexmedeTOMIDine (Precedex) (4 mcg/mL) bolus injection (Anesthsia) Intravenous, PRN, Starting on Wed11/02/23 at 0931, Until Wed11/02/23 at 1005, Anesthesia Intra-op, Routine Given 11/02/2023 9:31 AM EDT 8 mcg lactated ringers infusion Intravenous, CONTINUOUS PRN, Starting on Wed11/02/23 at 0915, Until Wed11/02/23 at 1005, Anesthesia Intra-op New Bag 11/02/2023 9:15 AM EDT lidocaine (pf) (Xylocaine) (20 mg/mL) 2% injection syringe Intravenous, PRN, Starting on Wed11/02/23 at 0927, Until Wed11/02/23 at 1005, Anesthesia Intra-op, Routine Given 11/02/2023 9:27 AM EDT 50 mg midazolam (pf) (Versed) (1 mg/mL) multi-dose injection Intravenous, PRN, Starting on Wed11/02/23 at 0921, Until Wed11/02/23 at 1005, Anesthesia Intra-op, Routine Given 11/02/2023 9:21 AM EDT 2 mg propofoL (Diprivan) (10 mg/mL) infusion Intravenous, CONTINUOUS PRN, Starting on Wed11/02/23 at 0927, Until Wed11/02/23 at 1005, Anesthesia Intra-op, Routine Rate/Dose Change 11/02/2023 9:41 AM EDT 150 mcg/kg/min 72.63 mL/hr Rate/Dose Change 11/02/2023 9:32 AM EDT 175 mcg/kg/min 84. 735 mL/hr New Bag 11/02/2023 9:27 AM EDT 250 mcg/kg/min 121.05 mL /hr propofoL (Diprivan) 10 mg/mL bolus injection (Anesthesia) Intravenous, PRN, Starting on Wed11/02/23 at 0927, Until Wed11/02/23 at 1005, Anesthesia Intra-op Given 11/02/2023 9:46 AM EDT 50 mg Given 11/02/2023 9:27 AM EDT 70 mg documented in this encounter Care Teams Hospitalist Relationship Specialty Start Date End Date Milo Baer MD [address] [place] [address] [place] [address] PCP - [facility] [place] [facility] 04/08/23 11/30/23 documented as of this encounter
--- OUTSIDE RECORDS SUMMARY | 2024-07-02 14:28 | XMS_ITS | Encounter Summary ---
Author Organization [facility] [place] [address] Care Team Providers Care Strings Teacher Name Role Phone Raffi Merida DO Primary Care Provider [phone] Encounter Details Date Type Department Care Team (Late st Contact Info) Description 05/25/2024 Interpretation Only [facility] [address] [place] [address] Hari Alvarado MD [address] [place] [address] Social History Tobacco Use Types Packs/Day Years Used Date Smoking Tobacco: Every Day Cigarettes Smokeless Tobacco: Never Alcohol Use Standard Drinks/Week Comments Not Currently 0 (1 standard drink = 0.6 oz pur e alcohol) [facility] Utilities Answer Date Recorded In the past 12 months has e [employer], gas, oil, or water [employer] threatened to shut off services in your [...] a senior care (including now)? No 11/01/2023 IPV Inpatient Questions [...] 8:30 AM EST Office [place] [address] Denae Wilson MD [facility] [place] [address] documented as of this encounter Procedures Procedure Name Priority Date/Time Associated Diagnosis Comments CT HEAD WO CONTRAST (GENERIC) STAT 05/25/2024 10:37 AM EST documented in this encounter Results * CT Head wo Contrast (Generic) (05/25/2024 10:37 AM EST) PT CLASS E RAD ADMITDTTM [id number] RAD PT [facility] INFO [id number]^Potter ^Hari RAD EXAM DESC CTHEAD^CT Head w/o Contrast^RIS [facility] WORKSTATION ID [id number] RAD Anatomical Region Laterality Modality Head Computed [...] have questions please contact the health care clinician that requested your imaging first. ? Electronically signed by: Shyann Hoff MD, [facility] ([phone]), at 05/25/2024 10:53 AM Narrative 05/25/2024 10:53 [...] who have questions please contactthe health care clinician that requested your imaging first. Hari Alvarado MD IMG CT ORDERABLES documented in this encounter Visit Diagnoses Not on filedocumented in this encounter Care Teams Strings Teacher Relationship Specialty Start Date End Date Raffi Merida DO [address] [facility] [place] [place] [address] PCP - General Family Medicine 12/01/23 documented as of this encounter
--- OUTSIDE RECORDS SUMMARY | 2024-07-02 14:28 | XMS_ITS | Encounter Summary ---
Author Organization [facility] Address [facility] [place] [address] Care Team Providers Care Snack Stewardess Name Role Phone Milo Baer MD Primary Care Provider [phone] Encounter Details Date Type Department Care Team (Latest Contact Info) Description 11/01/2023 Travel Social History Tobacco Use Types Packs/Day Years Used Date Smoking Tobacco: Every Day Cigarettes Smokeless Tobacco: Never Alcohol Use Standard Drinks/Week Comments Not Currently 0 (1 standard drink = 0.6 oz pur e alcohol) [facility] Utilities Answer Date Recorded In the [...] 8:30 AM EST Office [place] [address] Denae Wilson MD [facility] [place] [address] documented as of this encounter Visit Diagnoses Not on filedocumented in this encounter Care Teams Snack Stewardess Relationship Specialty Start Date End Date Milo Baer MD [address] [place] [address] [place] [address] PCP - [facility] Hospital Medicine 04/08/23 11/30/23 documented as of this encounter
--- OUTSIDE RECORDS SUMMARY | 2024-07-02 14:28 | XMS_ITS | Encounter Summary ---
Author Organization [place] [address] Care Team Providers Care Horticulture Worker Name Role Phone Raffi Merida DO Primary Care Provider [phone] Encounter Details Date Type Department Care Team (Late st Contact Info) Description 05/25/2024 Interpretation Only [facility] [address] [place] [address] Hari Alvarado MD [address] [place] [address] Social History Tobacco Use Types Packs/Day Years Used Date Smoking Tobacco: Every Day Cigarettes Smokeless Tobacco: Never Alcohol Use Standard Drinks/Week Comments Not Currently 0 (1 standard drink = 0.6 oz pur e alcohol) [facility] Utilities Answer Date Recorded In the past 12 months has e [employer], gas, oil, or water [employer] threatened to shut off services in your [...] place to sleep or slept in a usp (including now)? No 11/01/2023 IPV Inpatient Questions [...] 8:30 AM EST Office [place] [address] Denae Wilson MD [facility] [place] [address] documented as of this encounter Procedures Procedure Name Priority Date/Time Associated Diagnosis Comments MRI CERVICAL SPINE WITH/WO CONTRAST STAT 05/25/2024 4:17 PM EST documented in this encounter Results * MRI Cervical Spine wwo Contrast (05/25/2024 4:17 PM EST) PT CLASS E RAD ADMITDTTM [id number] RAD PT [facility] INFO [id number]^Potter ^Hari RAD EXAM DESC [id number]^MRI Spine Cervical w/ + w/o Contrast^RIS [facility] WORKSTATION ID [id number] RAD Anatomical Region Laterality Modality C-spine Magnetic Resonan [...] questions please contact the health child care center assistant director that requested your imaging first. ? Narrative [...] have questions please contactthe health child care center assistant director that requested your imaging first. Hari Alvarado MD IMG MRI ORDERABLES documented in this encounter Visit Diagnoses Not on filedocumented in this encounter Care Teams Horticulture Worker Relationship Specialty Start Date End Date Raffi Merida DO [address] [place] [address] PCP - General Family Medicine 12/01/23 documented as of this encounter
--- OUTSIDE RECORDS SUMMARY | 2024-07-02 14:28 | XMS_ITS | Encounter Summary ---
Author Organization [facility] Address [facility] [place] [address] Care Team Providers Care Adjunct Professor Of Law Name Role Phone Raffi Merida DO Primary Care Provider [phone] Encounter Details Date Type Department Care Team (Late st Contact Info) Description 05/24/2024 Interpretation Only [facility] [address] [place] [address] Live Garvey MD [address] [place] [address] Social History Tobacco Use Types Packs/Day Years Used Date Smoking Tobacco: Every Day Cigarettes Smokeless Tobacco: Never Alcohol Use Standard Drinks/Week Comments Not Currently 0 (1 standard drink = 0.6 oz pur e alcohol) [facility] Utilities Answer Date Recorded In the past 12 months has e [employer], gas, oil, or water [employer] threatened to shut off services in your [...] 8:30 AM EST Office [place] [address] Denae Wilson MD [facility] [place] [address] documented as of this encounter Procedures Procedure Name Priority Date/Time Associated Diagnosis Comments CT ABDOMEN AND PELVIS W CONTRAST STAT 05/24/2024 2:57 PM EST documented in this encounter Results * CT Abdomen & Pelvis w Contrast (05/24/2024 2:57 PM EST) PT CLASS E RAD ADMITDTTM [id number] RAD PT RAD INFO [id number]^Stephany patrick^Live RAD EXAM DESC CTAPW^CT Abdomen and Pelvis w/ Contrast^RIS [facility] WORKSTATION ID [id number] RAD Anatomical Region Laterality Modality Abdomen, Pelvis Computed [...] who have questions please contact the health healthcare analyst that requested your imaging first. ? Electronically signed by: Keny Leos MD, [facility] ([phone]), at 05/24/2024 3:12 PM Narrative 05/24/2024 3:12 [...] patients who have questions please contactthe health healthcare analyst that requested your imaging first. Electronically signed by: Keny Leos MD, [facility]([phone]), at 05/24/2024 3:12 PM Live Garvey MD IMG CT ORDERABLES documented in this encounter Visit Diagnoses Not on filedocumented in this encounter Care Teams Adjunct Professor Of Law Relationship Specialty Start Date End Date Raffi Merida DO [address] [place] [address] PCP - General Family Medicine 12/01/23 documented as of this encounter
--- OUTSIDE RECORDS SUMMARY | 2024-07-02 14:29 | XMS_ITS | Encounter Summary ---
Author Organization [facility] [place] [address] Care Team Providers Care Senior Net Developer Architect Name Role Phone Milo Baer MD Primary Care Provider [phone] Reason for Visit * Reason Comments Cellulitis Bilat hand swelling/ redness/open sores * Auth/Cert (Routine) Specialty Diagnoses / Procedures Referred By Contac t Referred To Contact Diagnoses Bacteremia due to Staphylococcus aureus Procedures emerg [place]i [place] [address] [facility] Referral ID Status Reason Start Date Expiration Date Visits Re quested Visits Authorized [id number] 1 1 Encounter Details Date Type Department Care Team (Latest Contact Info) Description 09/30/2023 2:20 PM EDT - 10/04/2023 5:15 PM EDT Hospital Encounter Medical Specialties Unit Level 2 [place] [address] [place] [address] [place] [address] [place] [address] Shortness of breath; Sepsis, due to unspecified organism, unspecified whether acute organ dysfunction present; Bacteremia due to Staphylococcus aureus Discharge Disposition: Against Medical Advice Social History Tobacco Use Types Packs/Day Years Used Date Smoking Tobacco: Every Day Cigarettes Smokeless Tobacco: Never Alcohol Use Standard Drinks/Week Comments Not Currently 0 (1 standard drink = 0.6 oz pur e alcohol) [facility] Utilities Answer Date Recorded In the past 12 months has th e [employer], gas, oil, or water [employer] threatened to shut off services in your home? No 10/01/2023 Hunger Vital Sign Answer Date Recorded Within the past 12 months, y ou worried that your food would run out before you got the money to buy more. Never true 10/01/19 24 Within the past 12 months, t he food you bought just didn't last and you didn't have money to get more. Never true 10/01/2023 PRAPARE - Transportation Answer Date Re corded In the past 12 months, has l ack of transportation kept you from medical appointments or from getting medications? No 09/16 In the past 12 months, has l ack of transportation kept you from meetings, work, or from getting things needed for daily living? No 10/01/2023 Housing Stability Vital Sign Answer Mickey e Recorded In the last 12 months, was t here a time when you were not able to pay the mortgage or rent on time? No 10/01/2023 In the last 12 months, how many places have you lived? 1 10/01/2023 In the last 12 months, was t here a time when you did not have a steady place to sleep or slept in a group home (including now)? No 10/01/2023 DH IPV Inpatient Questions Answer Date Recorded Does Anyone Try to Keep You From Having Contact with Others or Doing Things Outside Your Home? no 09/30/2023 Feels Threatened by Someone no 09/16 Feels Unsafe at Home or Work/School no 09/30/2023 Physical Signs of Abuse Present no 09/30/2023 Sex and Gender Information Value Date Recorded Sex Assigned at Not on file Gender Identity Not on file Sexual Orientation Not on file documented as of this encounter Last Filed Vital Signs Vital Sign Reading Time Taken Comments Blood Pressure 106/51 10/04/2023 9:01 AM EDT Pulse 63 10/04/2023 4:59 AM EDT Temperature 36.9 ??C (98.4 ??F) 10/04/2023 9:01 AM ED T Respiratory Rate 18 10/04/2023 9:01 AM EDT Oxygen Saturation 99% 10/04/2023 9:01 AM EDT Inhaled Oxygen Concentration - - Weight 74.8 kg (165 lb) 09/30/2023 12:38 PM EDT Height 175.3 cm (5' 9) 09/30/2023 12:38 PM EDT Body Mass Index 24.37 09/30/2023 12:38 PM EDT documented in this encounter Discharge Summaries * Negar Obregon MD - 10/04/2023 5:15 PM EDT Discharge Summary Patient Name: Marcos Camejo Patient Age: 43 y.o. Language: Belizean Race: White Ethnicity: Not nor Admit date: 09/30/2023 Discharge date and time: 10/04/2023 AMA Attending Physician: Negar Obregon MD Discharge Physician: Negar Obregon Follow-up Recommendations for Providers: Left AMA with MSSA bacteremia and MSSA right hand abscess - was to be discussed at multidisciplinary meeting with ID on 10/04 to discuss discharge planning 2. Left the unit without notice for team to discuss risk/benefit 3. Was to have iodoform packing right hand where did I&D Inpatient Provider Contact Information: For questions regarding this document or issues relating to this hospitalization on the Medical Service, please contact your inpatient physician through the [facility] Derrick Operator . Issues afterhours and on weekends will be handled by the Hospitalist staff on-call. Discharge Diagnoses (Hospital Problems) and Secondary Diagnoses (Chronic Problems): Active Hospital Problems Diagnosis Bacteremia due to Staphylococcus aureus Resolved Hospital Problems No resolved problems to display. There are no active non-hospital problems to display for this patient. Operations/Major Procedures: Operations: Other Major Procedures: None History of Presentation: (per admitting MD) Marcos Camejo is a 43 y.o. male with PMHx of IVDU (methamphetamine, opiates), OUD (on Suboxone), who presents [place] [facility] with concern for staph bacteremia, multiple wounds over his bilateral hands,arms, left knee. Patient reports that he last used IV methamphetamine 7 days ago. He notes that it must have been rené batch. Reports after using that he had onset of feet pain and hand pain that developed into infected skin wounds. He presented to [facility] on 09/25. At [facility] he had blood cultures drawn, 1 out of 2 bottles growing MSSA. He was treated with 1 dose of vancomycin and recommended admission to the hospital, but he decided to leave [facility] so he was discharged home on TMP-SMX. He re-presented 2 days later with worsened swelling, labs showing an elevated lactate, leukocytosis. Ortho saw patient at [facility] and recommended transfer to , however there were no beds available so patient left again. Patient reports that since going home he has had ongoing pain in his hands and left knee and subsequently represented to [facility] for further evaluation. ED course: patient was hemodynamically stable, afebrile. Bcx drawn and patient was started on IV vancomycin and ceftriaxone. Hospital Course: # MSSA bacteremia # Multiple skin and soft tissue infections Marcos is a 43 y/o with h/o IVDU (methamphetamine, opiates), OUD (on Suboxone) admitted for MSSA bacteremia with positive culture 09/25, and multiple wounds over his bilateral hands, arms, and left knee. CT of right hand, which demonstrated loculated abscess to the dorsal/ulnar region. He was seen by ortho hand and underwent bedside I&D with on 09/[address] of left without abscess or OM (did show dorsal subcutaneous edema and skin thickening suggestive of cellulitis). TTE without vegetation. He was initially treated with IV vanc and changed tp ancef 2gm TID with abscess culture also with MSSA. Blood cultures 09/25 MSSA, 09/27 NGTD. CRP 17.7 to 10.3He was seen by ID and plan was for mu ltidisciplinary meeting on 10/04 to discuss if would be an OPAT candidate. Unfortunately, team was notified that patient removed on IV and left AMA without anticipatory notice or time for team to discuss risks of AMA discharge. Did sign form with nurse as he was leaving. If he returns, restarted Ancef and engage ID. # History of IVDU # OUD Continued home buprenorphine/naloxone 12 mg twice daily #Positive HCV: Updated pt on HCV positive with VL pending at time of discharge. HIV negative Vital Signs at Discharge: BP: 106/51, Heart Rate: 63, Temp: 36.9 ??C (98.4 ??F), Resp: 18, BMI (Calculated): 24.36 Height: 175.3 cm (5' 9) (09/30/23 1238) Weight: 74.8 kg (165 lb) (09/30/23 1238) Functional and Cognitive Status: Cear mentation morning before discharge Important Studies and Lab Data: Labs: Last 3 wbc, hgb, hct plt Recent Labs 10/04/23 0454 10/03/23 0559 10/02/23 1117 WBC 5.4 5.7 7.7 HGB 11.9* 11.6* 12.5* HCT 35.5* 35.1* 37.7* PLATELET 455* 416* 418* Last 3 Lytes Recent Labs 10/04/23 0454 10/03/23 0559 10/02/23 1117 NA 134* 132* 133* K 4.2 3.9 4.4 CL 100 100 100 CO2 27 25 25 BUN 20 19 14 CREATININE 0.75* 0.69* 0.73* Last 3 LFTs Recent Labs 10/02/23 1247 09/30/23 1310 AST 79* 70* ALT 103* 151* ALKPHOS 78 81 BILITOT 0.3 0.2 BILIDIR 0.1 -- Last Ca, Mg, Phos Recent Labs 10/04/23 0454 CALCIUM 8.8 Last 3 Coags No results for input(s): PT, INR, PTT in the last 168 hours. Last 3 ProBNP, Trop, CK No results for input(s): CK, TROPONINT, PROBNP in the last 168 hours. Last 3 TFT No results for input(s): TSH in the last 7068 hours. Invalid input(s): T4, FT4 Last 3 Lipids No results for input(s): CHLPL, HDL, LDLCHOL, LDLDIRECT, TRIG in the last 7068 hours. Last 3 HgbA1C Recent Labs 10/01/23 0921 HA1C 6.2* Last CRP, SEDRATE Recent Labs 10/03/23 0559 CRP 5.7* SEDRATE 63* Studies: Results for orders placed or performed during the hospital encounter of 09/30/23 XR Chest PA & Lateral (Generic) (Exam End: 09/30/2023 12:48 PM) Impression No acute cardiopulmonary findings. Thank you for letting us participate in the care of this patient. If you are a health care provider and have any questions regarding this report, please contact the number below. For patients who have questions please contact the health senior care specialist that requested your imaging first. Hand Min 3 views Bilat (Generic) (Exam End: 09/30/2023 3:17 PM) Impression 1. Marked soft tissue swelling of the bilateral hands with no soft tissue gas or radiodense foreign body. 2. No radiographic evidence of advanced osteomyelitis of either hand. 3. Well-corticated ossicles adjacent to the left small finger proximal phalanx with chronic appearing deformities of the bilateral fifth metacarpals, likely represent sequela of old trauma. 4. 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 Thank you for letting us participate in the care of this patient. If you are a health care provider and have any questions regarding this report, please contact the number below. For patients who have questions please contact the health senior care specialist that requested your imaging first. Hand w Contrast Right (Exam End: 09/30/2023 5:59 PM) Impression 1. Multiloculated fluid collection along the dorsal and medial aspect of the hand measuring approximately 6.5 x 1.5 x 5.6 cm in size suspicious for abscess. 2. Small amount of tenosynovial fluid tracking proximally from the abscess along the extensor digiti minimi tendon sheath proximal to the wrist joint suspicious for septic tenosynovitis. 3. No appreciable joint effusions or CT evidence of osteomyelitis. Thank you for letting us participate in the care of this patient. If you are a health care provider and have any questions regarding this report, please contact the number below. For patients who have questions please contact the health senior care specialist that requested your imaging first. Hand w Contrast Left (Exam End: 09/30/2023 7:57 PM) Impression 1. Small third MCP joint effusion and equivocal minimal third MCP joint space narrowing. Findings are concerning for potential third MCP joint sepsis. No CT evidence of osteomyelitis. 2. Dorsal subcutaneous edema and skin thickening. Correlate with cellulitis on physical exam. 3. No loculated fluid collection/abscess. 4. No tracking soft tissue gas. Thank you for letting us participate in the care of this patient. If you are a health care provider and have any questions regarding this report, please contact the number below. For patients who have questions please contact the health senior care specialist that requested your imaging first. Pending Studies and Lab Data: None Discharge Conditions/Prognosis: Ongoing infection treatment with IV abx and left AMA prior to completion Discharge to: AMA Updated Allergies/ADRs: Allergies Allergen Reactions Penicillins Hives Tolerated ceftriaxone 09/2023 Immunizations Given this Hospitalization: There is no immunization history on file for this patient. Discharge Medications: Your Medications STOPPED Medications albendazole 200 mg tablet Commonly known as: Albenza Depakote [address] tablet Generic drug: divalproex EC oxyCODONE 10 mg tablet Commonly known as: Roxicodone Smoking Status at Discharge: Social History Tobacco Use Smoking Status Every Day Packs/day: 1 Types: Cigarettes Smokeless Tobacco Never Instructions Given to Patient at Discharge: Patient Instructions The Section of Hospital Medicine hopes you [...] any issues or concerns once you leave [facility], we apologize for any undue stress this may cause. Please do not hesitate to call your PCP office or seek further medical assistance if there are any [facility]. This questionnaire is not meant to [...] time completing this questionnaire. General Instructions None Discharge References/Attachments None documented in this encounter Discharge Instructions * Patient Instructions* Og Miramontes MA - 10/01/2023 7:59 AM EDT The Section of Hospital Medicine hopes you [...] any issues or concerns once you leave [facility], we apologize for any undue stress this [...] Sig Dispensed Refills Start Date End Date Suboxone 12-[address] 2 Film under the tongue daily. 09/25/2023 cholecalciferol (Vitamin D) 1,000 unit tablet Take 1 tablet by mouth daily. 09/21/2022 documented as of this encounter Progress Notes * Lisa Walls RN - 10/04/2023 5:17 PM EDT Friend of patient showed up to unit around 1700, within fifteen minutes, patient was dressed in street attire, had self-removed PIV and told staff he was leaving AMA. Form was signed, risks were discussed w/ patient, no evidence of learning. Patient instructed to return to ED if patient begins to feel ill, verbalized understanding. MD Obregon notified, patient did not want to wait for MD to arrive to unit. This RN provided patient w/ wound care supplies to safely manage wound at home. Education provided. * Negar Obregon MD - 10/04/2023 9:43 AM EDT Images from the original note were not included. Hospital Medicine Daily Progress Note Date of Admission: 09/30/2023 ID: 43 y/o with h/o IVDU (methamphetamine, opiates), OUD (on Suboxone) admitted for MSSA bacteremia, and wounds over his bilateral hands, arms, left knee s/p I&D right hand abscess. 24hr events: Changedo cefazolin today per ID Blood cx 09/25 MSSA; negative from 09/27 on I&D from right hand also with MSSA Subjective: Noted some pain mid arm on left, no increased swelling. Feels left hand improving. No fevers. Tolerating po Vitals: Last value Range last 24 hrs Temperature Temp: 36.9 ??C (98.4 ??F) Temp: [36.5 ??C (97.7 ??F)-36.9 ??C (98.4 ??F)] Heart Rate Heart Rate: 63 Heart Rate: [63] Blood Pressure BP: 106/51 BP: (106-111)/(51-60) Respiratory Rate Resp: 18 Resp: [16-18] SpO2 SpO2: 99 % SpO2: [97 %-99 %] Intake/Output Summary (Last 24 hours) at 10/04/2023 0943 Last data filed at 10/03/20231999 Gross per 24 hour Intake 300 ml Output -- Net 300 ml Admit wt: 74.84 kg EXAM: Gen: NAD, non-toxic HEENT: Anicteric sclera CV: RRR, no m/r/g Lungs: CTA bilaterally Abd: Soft, non-tender, +BS Ext: No edema. Skin: Bandage right hand, no drainage on bandage, left hand swollen with oozing from superficial lesion, no purulence, left knee with some swelling and small open area Neuro: No gross deficits Skin: Numerous tattoes LABS: Reviewed in eDH. Remarkable for the following: Recent Labs 10/04/23 0454 10/03/23 0559 10/02/23 1117 WBC 5.4 5.7 7.7 HGB 11.9* 11.6* 12.5* HCT 35.5* 35.1* 37.7* PLATELET 455* 416* 418* Recent Labs 10/04/23 0454 10/03/23 0559 10/02/23 1117 NA 134* 132* 133* K 4.2 3.9 4.4 CL 100 100 100 CO2 27 25 25 BUN 20 19 14 CREATININE 0.75* 0.69* 0.73* GLUCOSE 122 152 157 CALCIUM 8.8 8.4* 8.7 Recent Labs 10/02/23 1247 AST 79* ALT 103* ALKPHOS 78 BILITOT 0.3 BILIDIR 0.1 MICRO: No results for input(s): URINECULTURE in the last 720 hours. Recent Labs 09/26/23 2115 09/26/23 2155 09/28/23 0926 09/28/23 1001 09/30/23 1310 09/30/23 1502 10/01/23 0921 10/02/23 1130 BLOODCX No growth at 5 days. Staphylococcus aureus, MSSA detected by PCR Isolate saved. If future testing is required, contact the Microbiology Chief Lock Tender Operator. * No growth at 5 days. No growth at 5 days. No growth at 3 days. No growth at 3 days. No growth at 3 days. No growth at 2 days. No growth at 1 day. No growth at 1 day. STUDIES: Results for orders placed or performed during the hospital encounter of 09/30/23 XR Chest PA & Lateral (Generic) (Exam End: 09/30/2023 12:48 PM) Impression No acute cardiopulmonary findings. Thank you for letting us participate in the care of this patient. If you are a health care provider and have any questions regarding this report, please contact the number below. For patients who have questions please contact the health senior care specialist that requested your imaging first. Hand Min 3 views Bilat (Generic) (Exam End: 09/30/2023 3:17 PM) Impression 1. Marked soft tissue swelling of the bilateral hands with no soft tissue gas or radiodense foreign body. 2. No radiographic evidence of advanced osteomyelitis of either hand. 3. Well-corticated ossicles adjacent to the left small finger proximal phalanx with chronic appearing deformities of the bilateral fifth metacarpals, likely represent sequela of old trauma. 4. 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 Thank you for letting us participate in the care of this patient. If you are a health care provider and have any questions regarding this report, please contact the number below. For patients who have questions please contact the health senior care specialist that requested your imaging first. Hand w Contrast Right (Exam End: 09/30/2023 5:59 PM) Impression 1. Multiloculated fluid collection along the dorsal and medial aspect of the hand measuring approximately 6.5 x 1.5 x 5.6 cm in size suspicious for abscess. 2. Small amount of tenosynovial fluid tracking proximally from the abscess along the extensor digiti minimi tendon sheath proximal to the wrist joint suspicious for septic tenosynovitis. 3. No appreciable joint effusions or CT evidence of osteomyelitis. Thank you for letting us participate in the care of this patient. If you are a health care provider and have any questions regarding this report, please contact the number below. For patients who have questions please contact the health senior care specialist that requested your imaging first. Hand w Contrast Left (Exam End: 09/30/2023 7:57 PM) Impression 1. Small third MCP joint effusion and equivocal minimal third MCP joint space narrowing. Findings are concerning for potential third MCP joint sepsis. No CT evidence of osteomyelitis. 2. Dorsal subcutaneous edema and skin thickening. Correlate with cellulitis on physical exam. 3. No loculated fluid collection/abscess. 4. No tracking soft tissue gas. Thank you for letting us participate in the care of this patient. If you are a health care provider and have any questions regarding this report, please contact the number below. For patients who have questions please contact the health senior care specialist that requested your imaging first. Medications: Scheduled Meds: ceFAZolin 2 g Intravenous Q8H nicotine 1 patch Transdermal Daily And Patch Verification 1 patch Transdermal BID sodium chloride 0.9 % (flush) 5 mL Intravenous BID enoxaparin 40 mg Subcutaneous Nightly buprenorphine-naloxone 12 mg of opiate Sublingual BID Continuous Infusions: PRN Meds:.ketorolac, sodium chloride 0.9 % (flush), lidocaine, acetaminophen Assessment: Marcos is a 43 y/o with h/o IVDU (methamphetamine, opiates), OUD (on Suboxone) admitted for MSSA bacteremia, and multiple wounds over his bilateral hands, arms, left knee s/p I&D of right hand abscess with SA with sensitivities pending; blood cultures 09/25 MSSA, 09/[address] TTE without vegetation. CT of right hand, which demonstrated loculated abscess to the dorsal/ulnar region s/p bedside I&D with final culture pending. CT of left without abscess or OM (did show dorsal subcutaneous edema and skin thickening suggestive of cellulitis). On Ancef 2gm TID. Will need ltidisciplinary meeting for dispo planning and if will be OPAT candidate - planned for tomorrow. Plan: # MSSA bacteremia # Multiple skin and soft tissue infections - ID consulted, appreciate recs - Cefazolin 2gm Q8hr - TTE without evidence of endocarditis - CRP 17.7 to 10.3 - Blood cx + 09/25, cleared 09/27; I&D 09/29 # Right hand abscess - Orthopedics consulted, appreciate recs - s/p bedside I&D in the ED -Iodoform dressing to hand per ortho recs - no surgical intervention per note 09/29 -Wound care consults - acetaminophen PRN, ketorolac PRN # History of IVDU # OUD - Continue home buprenorphine/naloxone 12 mg twice daily #Positive HCV: -Check viral load -updated pt on HCV positive - HIV negative #Routine Nutrition: Regular diet Lines/novak: PIV in place DVT Prophylaxis: Lovenox Dispo: Pending clinical course Negar Obregon MD 10/04/23 9:43 AM TEAM/PAGER: [phone] IPI Certification I certify that I am a [facility] credentialed attending provider with admitting privileges and that the patient meets or has met medical necessity to require an inpatient IPI level of care meeting a minimumof two midnights or is on the CMS inpatient only procedure list (status C) due to: MSSA bacteremia * Rupali Lucio MD - 10/04/2023 8:06 AM EDT INFECTIOUS DISEASE FOLLOW-UP NOTE Active ID Issue(s): MSSA bacteremia Right hand abscess s/p I&D Left hand cellulitis Current Antimicrobial(s): Cefazolin Interval History/Subjective: Patient eager to go home at the earliest. States that the swelling and pain in his hands, knees aremuch improved. 10-point ROS: negative except what is stated above. Physical Exam: Last value Range last 24 hrs Temperature Temp: 36.5 ??C (97.7 ??F) Temp: [36.5 ??C (97.7 ??F)-36.9 ??C (98.4 ??F)] Heart Rate Heart Rate: 63 Heart Rate: [63] Blood Pressure BP: 111/57 BP: (111)/(57-60) Respiratory Rate Resp: 18 Resp: [16-18] SpO2 SpO2: 97 % SpO2: [97 %-99 %] General: no acute distress Head: normocephalic, atraumatic EENT: No conjunctival petechiae Neck: No LAD Cardiovascular: RRR, no murmur, rubs, or gallops Pulmonary: Lungs clear to auscultation bilaterally; no wheezing, rhonchi, or rales Abdomen: Soft, non-tender, non-distended Ext: Right upper yaxmsegym-yskoldfq-Y/C/I, left dorsum of hand swelling and mild erythema present with superficial scab. No discharge or bleeding noted. Bilateral lower extremities with multiple dried scabs. No other joint swelling. Multiple tattoos on bilateral upper extremities and scalp. Neuro: A&O, moves all 4 extremities spontaneously I have reviewed available microbiology, laboratory, imaging/radiology/diagnostics. Laboratory: Recent Labs 10/04/23 0454 10/03/23 0559 10/02/23 1117 WBC 5.4 5.7 7.7 HGB 11.9* 11.6* 12.5* HCT 35.5* 35.1* 37.7* PLATELET 455* 416* 418* Recent Labs 10/04/23 0454 10/03/23 0559 10/02/23 1117 NA 134* 132* 133* K 4.2 3.9 4.4 CL 100 100 100 CO2 27 25 25 BUN 20 19 14 CREATININE 0.75* 0.69* 0.73* Recent Labs 10/02/23 1247 09/30/23 1310 AST 79* 70* ALT 103* 151* ALKPHOS 78 81 BILITOT 0.3 0.2 BILIDIR 0.1 -- Microbiology: 09/25 Bcx x2: 1/2+ MSSA 09/27 Bcx x2: NGTD 09/29 Bcx x3: NGTD 09/29 abscess/wound culture (R hand): MSSA 09/30 Bcx x1: NGTD 09/30 hep C Ab positive 09/30 syphilis negative 09/30 Hepatitis C antibody positive; hep C DNA PCR pending HIV negative 10/01 blood culture: NGTD Outside Micro 07/15/23 HIV negative HAV total antibody positive HBV surface Ag negative HBV surface Ab positive HBV core Ab positive 09/21/22 HCB Core Ab negative Antimicrobials: Vancomycin 09/29 to 10/01 Ceftriaxone 09/29 Cefazolin 10/02 to present Imaging/diagnostics: Reviewed Impression: Marcos Camejo is a 43 y.o.male with a history of IVDU developed b/l hand pain ~ 1 week ago, seen at [facility] ER on 09/25 with + Bcx growing MSSA but left AMA after IV vanco. He was sent home on Bactrim which he has been taking, but had worsening b/l hands and re-admitted on 09/29 for b/l hand cellulitisand R hand abscess with CT concerning for early R extensor tenosynovitis s/p bedside drainage on 09/29 with cultures growing MSSA. Suspect entry source is skin, pt reports h/o scab-like rash erupting all over his extremities and scalp ~ 1 week ago. Some nodular lumps below elbows b/l noted, as well as erythema of L knee. For the MSSA bacteremia, given that he did not have recurrence of bacteremia this current admissionand TTE without any findings concerning for IE, recommend holding off on MARIBEL. Suspect skin source SSTI leading to bacteremia. No other metastatic foci of infection except concerns of septic arthritisof left third MCP joint. HIV and syphilis screen were negative, but hep C core ab was positive. Hep C DNA PCR is still pending. At this time for the MSSA bacteremia secondary to SSTI, recommend 4-week duration of IV antibioticsfrom 09/29 (though he mostly meets the criteria for uncomplicated bacteremia, unclear for how long he was bacteremic and had suboptimal therapy initially. Hence would prefer to treat longer that is with a 4-week duration rather than 2 weeks). He was initially on vancomycin and then switched over to cefazolin. He will need multidisciplinary meeting to assess candidacy for OPAT which is being planned for tomorrow. Recommendations: -Continue cefazolin 2g IV every 8 hours for 4 weeks with day 1 being 09/29 -Multidisciplinary meeting to assess candidacy for OPAT tomorrow at 11 AM -BIT team following. -Monitor CBC, CMP and CRP weekly while on antimicrobial therapy -Rest of the care per primary team Patient discussed with ID attending Dr. العلي. Thank you for the consult. ID consult service will continue to follow. Please page ID Red team (pager [phone]) with questions or concerns. uRpali Lucio MD Fellow, Infectious Disease Pager: [phone] Epic Chat 10/04/2023 Associated attestation - Negar العلي MD - 10/04/2023 5:08 PM EDT ID Attending Attestation I have seen and examined the patient and reviewed the fellow's above history, and I agree with the details as written. The assessment and plan were formulated in discussion with me and I agree with them as documented, with the following additions/modifications: For his disseminated MSSA infection with manifestations inclusive of transient bacteremia, R hand tenosynovitis, and L third MCP septic arthritis, I favor treating with a 4 week course of IV cefazolin. We are planning to have an interdisciplinary meeting tomorrow to determine the patient's OPAT candidacy. He is also newly hep C Ab positive, and we are awaiting hep C VL to determine chronic infection vs. spontaneous clearance. We will continue to follow. I spent a total of 50 minutes on the date of service on the [id number] encounter, chart review, clinical decision making, documentation, and coordination of care. Negar العلي MD Staff Physician in Infectious Diseases * Lucia Portillo - 10/04/2023 6:56 AM EDT Images from the original note were not included. [facility] Medicine Daily Progress Note Patient information: Name: Marcos Camejo : 1980 PCP: Milo Baer MD PCP phone number: [phone] Date of Admission: 09/30/2023 ( Hospital Day 4 days ) Responsible Attending: Negar Obregon MD ID: Marcos Camejo is a pleasant 43 y.o. with a past medical history of IVDU (methamphetamine, opiates), OUD (on Suboxone) who was admitted for MSSA bacteremia, bilateral hand cellulitis s/p R hand abscess I&D. Subjective/24hr events: - No acute events overnight - Patient has new pain over left arm, IV ketorolac given with relief - Appetite is good, hydrating throughout the day - IV vancomycin switched to IV cefazolin on 10/02 Vitals: Last value Range last 24 hrs Temperature Temp: 36.9 ??C (98.4 ??F) Temp: [36.5 ??C (97.7 ??F)-36.9 ??C (98.4 ??F)] Heart Rate Heart Rate: 63 Heart Rate: [63] Blood Pressure BP: 106/51 BP: (106-111)/(51-60) Respiratory Rate Resp: 18 Resp: [16-18] SpO2 SpO2: 99 % SpO2: [97 %-99 %] Intake/Output Summary (Last 24 hours) at 10/04/2023 1256 Last data filed at 10/04/2023 1200 Gross per 24 hour Intake 300 ml Output 0 ml Net 300 ml Admit wt: 74.84 kg EXAM: Gen: Well appearing and in no acute distress. CV: Normal S1, S2. Regular rate and rhythm, no murmur. Pulm: Non-labored respiration. Clear to auscultation bilaterally, no wheezes or rhonchi. Abd: Soft, non-tender and non-distended. No organomegaly appreciated. Ext: L dorsal hand with erythema and edema, no pain to palpation. Bandage wrapped over R hand. No lower extremity edema. Nontender nodule proximal to L olecranon, no erythema. Skin: Several scabs on upper and lower extremities bilaterally. Neuro: CN II-XII grossly intact, no focal deficits. LABS: Reviewed in eDH. Remarkable for the following: Recent Labs 10/04/23 0454 10/03/23 0559 10/02/23 1117 WBC 5.4 5.7 7.7 HGB 11.9* 11.6* 12.5* HCT 35.5* 35.1* 37.7* PLATELET 455* 416* 418* Recent Labs 10/04/23 0454 10/03/23 0559 10/02/23 1117 NA 134* 132* 133* K 4.2 3.9 4.4 CL 100 100 100 CO2 27 25 25 BUN 20 19 14 CREATININE 0.75* 0.69* 0.73* GLUCOSE 122 152 157 CALCIUM 8.8 8.4* 8.7 Recent Labs 10/02/23 1247 AST 79* ALT 103* ALKPHOS 78 BILITOT 0.3 BILIDIR 0.1 MICRO: No results for input(s): URINECULTURE in the last 720 hours. Recent Labs 09/26/23 2115 09/26/23 2155 09/28/23 0926 09/28/23 1001 09/30/23 1310 09/30/23 1502 10/01/23 0921 10/02/23 1130 BLOODCX No growth at 5 days. Staphylococcus aureus, MSSA detected by PCR Isolate saved. If future testing is required, contact the Microbiology Chief Lock Tender Operator. * No growth at 5 days. No growth at 5 days. No growth at 3 days. No growth at 3 days. No growth at 3 days. No growth at 2 days. No growth at 1 day. No growth at 1 day. STUDIES: Results for orders placed or performed during the hospital encounter of 09/30/23 XR Chest PA & Lateral (Generic) (Exam End: 09/30/2023 12:48 PM) Impression No acute cardiopulmonary findings. Thank you for letting us participate in the care of this patient. If you are a health care provider and have any questions regarding this report, please contact the number below. For patients who have questions please contact the health senior care specialist that requested your imaging first. Hand Min 3 views Bilat (Generic) (Exam End: 09/30/2023 3:17 PM) Impression 1. Marked soft tissue swelling of the bilateral hands with no soft tissue gas or radiodense foreign body. 2. No radiographic evidence of advanced osteomyelitis of either hand. 3. Well-corticated ossicles adjacent to the left small finger proximal phalanx with chronic appearing deformities of the bilateral fifth metacarpals, likely represent sequela of old trauma. 4. 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 Thank you for letting us participate in the care of this patient. If you are a health care provider and have any questions regarding this report, please contact the number below. For patients who have questions please contact the health senior care specialist that requested your imaging first. Hand w Contrast Right (Exam End: 09/30/2023 5:59 PM) Impression 1. Multiloculated fluid collection along the dorsal and medial aspect of the hand measuring approximately 6.5 x 1.5 x 5.6 cm in size suspicious for abscess. 2. Small amount of tenosynovial fluid tracking proximally from the abscess along the extensor digiti minimi tendon sheath proximal to the wrist joint suspicious for septic tenosynovitis. 3. No appreciable joint effusions or CT evidence of osteomyelitis. Thank you for letting us participate in the care of this patient. If you are a health care provider and have any questions regarding this report, please contact the number below. For patients who have questions please contact the health senior care specialist that requested your imaging first. Hand w Contrast Left (Exam End: 09/30/2023 7:57 PM) Impression 1. Small third MCP joint effusion and equivocal minimal third MCP joint space narrowing. Findings are concerning for potential third MCP joint sepsis. No CT evidence of osteomyelitis. 2. Dorsal subcutaneous edema and skin thickening. Correlate with cellulitis on physical exam. 3. No loculated fluid collection/abscess. 4. No tracking soft tissue gas. Thank you for letting us participate in the care of this patient. If you are a health care provider and have any questions regarding this report, please contact the number below. For patients who have questions please contact the health senior care specialist that requested your imaging first. Medications: Scheduled Meds: ceFAZolin 2 g Intravenous Q8H nicotine 1 patch Transdermal Daily And Patch Verification 1 patch Transdermal BID sodium chloride 0.9 % (flush) 5 mL Intravenous BID enoxaparin 40 mg Subcutaneous Nightly buprenorphine-naloxone 12 mg of opiate Sublingual BID Continuous Infusions: PRN Meds:.ketorolac, sodium chloride 0.9 % (flush), lidocaine, acetaminophen ASSESSMENT: Marcos Camejo is a 43 y.o. year old male with past medical history of IVDU (methamphetamine, opiates), OUD (on Suboxone) admitted on 09/30/2023 ( Hospital Day 4 days ) for MSSA bacteremia, bilateralhand cellulitis s/p R hand abscess I&D. Patient has MSSA detected in 1 of 2 blood culture bottles collected at OSH on 09/25. He initially presented to [facility] on 09/25 for bilateral hand swelling and scab-like rash over extremities, found to have MSSA bacteremia, was recommended for admission, but left AMA and was prescribed TMP-SMX. He [place] [facility] [place] of right hand demonstrated loculated abscess and ortho performed beside I&D. CT of left hand showed no evidence of abscess or osteomyelitis, but did show dorsal subcutaneous edema and skin thickening suggestive of cellulitis. Overall, patient is stable with no leukocytosis, downtrending ESR/CRP, and stable vital signs. His hyponatremia is improving (Na 134 today). Suspect skin source led to bacteremia. Culture from right hand abscess collected on 09/29 also growing MSSA. TTE without evidence of vegetation. He was initially treated with IV vancomycin [09/29-10/02] but was switched to IV cefazolin on 10/02 following susceptibility testing of right hand abscess. Left hand continues to have erythema and edema; CT showed no evidence of abscess or osteomyelitis, will continue to monitor. Will continue treatment with IV cefazolin and involve multidisciplinary team to discuss dispo planning - meeting scheduled for tomorrow. Regarding his normocytic anemia (Hgb 11.9, MCV 86.6), this could be dilutional in the setting of increased PO intake during admission, anemia of chronic disease due to underlying infection, hemolysisin the setting of endocarditis (unlikely given normal TTE), or nutritional deficiency. Of note, patient tested positive for Hepatitis C during admission, negative for HIV and syphilis. Will obtain viral load and set up follow-up for treatment upon discharge. PLAN: # MSSA bacteremia # R hand abscess s/p I&D # Multiple skin and soft tissue infections - ID consulted, appreciate recs - Ortho consulted, appreciate recs - s/p IV vancomycin [09/29-10/02] - Continue IV cefazolin 2 g q8h - Trend ESR/CRP - Non-opioid pain control (acetaminophen PRN, ketorolac PRN) - Involve multidisciplinary team for dispo planning - Meeting scheduled for 10/04 # Anemia, normocytic - Obtain workup labs (LDH, haptoglobin, iron studies) # History of IVDU # OUD - Continue home buprenorphine/naloxone 12 mg twice daily - Avoid opioid medications if possible #Routine Nutrition: Regular diet Lines/novak: PIV in place DVT Prophylaxis: LMWH GI Prophylaxis: not indicated Glycemic control: not indicated Code Status: Attempt Cardiopulmonary Resuscitation - Inpatient Dispo: Pending clinical course Lucia Lindsey, MS3 10/04/23 12:56 PM TEAM/PAGER: [phone] * Hari Capellan MD - 10/04/2023 5:40 AM EDT ORTHOPAEDIC HAND SURGERY INPATIENT PROGRESS NOTE Patient Name: Marcos Camejo Age: 43 y.o. Surgery/Issue: Bilateral hand cellulitis, right hand abscess status post bedside I&D, left longfinger MCP possible septic arthritis Attending: Adis Date of surgery: None SUBJECTIVE / INTERVAL HISTORY: AF, VSS. NAEON. WBC 5.4 (5.7) Abscess Cx (+) S. Aureus erythromycin res. BCX NGTD ID recs switching VANC to ANCEF, OPAT for 3 weeks Iodoform packing daily per nursing Subjectively feels he is improving greatly. Patient offers no complaints. Pain well controlled, denies N/V. FOCUSED REVIEW OF SYSTEMS: as above. Active Hospital Problems Diagnosis Bacteremia due to Staphylococcus aureus Resolved Hospital Problems No resolved problems to display. There are no active non-hospital problems to display for this patient. MEDICATIONS: ceFAZolin (Ancef) 2 g vial attach to sodium chloride 0.9% 100 mL Mini-Bag Plus ketorolac (Toradol) (15 mg/mL) injection 15 mg nicotine (Nicoderm CQ) 21 mg/24 hr patch 21 mg AND nicotine (Nicoderm CQ) 21 mg/24 hr patch Patch Verification sodium chloride 0.9 % (flush) (BD PosiFlush Normal Saline 0.9) flush 5 mL sodium chloride 0.9 % (flush) (BD PosiFlush Normal Saline 0.9) flush 5-20 mL lidocaine (Xylocaine) 1% (10 mg/mL) injection 3 mg enoxaparin (Lovenox) (40 mg/0.4 mL) subcutaneous injection 40 mg acetaminophen (Tylenol) tablet 975 mg buprenorphine-naloxone (Suboxone) sublingual tablet 12 mg of opiate OBJECTIVE: Temp: [36.5 ??C (97.7 ??F)-36.9 ??C (98.4 ??F)] Heart Rate: [63] Resp: [16-18] BP: (111)/(57-60) Intake/Output Summary (Last 24 hours) at 10/04/2023 0704 Last data filed at 10/03/20231999 Gross per 24 hour Intake 300 ml Output -- Net 300 ml BMI: Weight: 74.8 kg (165 lb) (09/30/23 1238) BMI (Calculated): 24.36 BMI Classification: Normal Weight Body mass index is 24.37 kg/m??. PE: General: awake/alert, responds to questions CV: RRR assessed peripherally Resp: Breathing comfortably on RA Right hand Diffuse swelling and scabbing in the hand, dorsal abscess with 1 cm incision iodoform packing No fusiform swelling of the digits. Normal cascade of digits Diffusely TTP over the wrist, hand, fingers Full extension and flexion of MCP, IP joints Sensation intact to light touch in radial, median ulnar distributions Motor intact wrist flexion/extension, nuclear plant instrument technician, AIN/PIN/IO intact Brisk capillary refill distally 2+ radial pulse Left hand Diffuse swelling and scabbing in the hand, dorsal predominant No fusiform swelling of the digits. Normal cascade of digits Diffusely TTP over the wrist, hand, fingers* Full extension and flexion of MCP, IP joints Sensation intact to light touch in radial, median ulnar distributions Motor intact wrist flexion/extension, nuclear plant instrument technician, AIN/PIN/IO intact Brisk capillary refill distally 2+ radial pulse Lab Results Component Value Date NA 134 (L) 10/04/2023 K 4.2 10/04/2023 CL 100 10/04/2023 CO2 27 10/04/2023 BUN 20 10/04/2023 CREATININE 0.75 (L) 10/04/2023 GLUCOSE 122 10/04/2023 CALCIUM 8.8 10/04/2023 Lab Results Component Value Date WBC 5.4 10/04/2023 HGB 11.9 (L) 10/04/2023 HCT 35.5 (L) 10/04/2023 MCV 86.6 10/04/2023 PLATELET 455 (H) 10/04/2023 IMAGING: CT right and left hand 09/30/2023: Loculated abscess to the dorsal aspect of the right hand with diffuse soft tissue swelling throughout the hand. Diffuse soft tissue swelling to the left hand with third MCP joint swelling. ASSESSMENT / PLAN: Marcos Camejo is a 43 y.o. male RHD history of IVDU, S. aureus bacteremia bilateral hand swelling with ongoing infectious source workup per hospital medicine and infectious disease. Orthopedic hand surgery was consulted regarding right and left hand swelling in the context of right hand abscess (s/p bedside I&D) left hand long finger MCP joint swelling, and diffuse swelling to bilateral hands. Recommend continued antibiotic therapy and management per the medicine and infectious disease teams. Daily dressing changes - iodoform packing to the right hand dorsal abscess with gauze and Kerlix wrapping per nursing and wound care order. Orthopaedic Hand Surgery will re-eval MWF. - Activity: AAT/WBAT b/l UE - Antibiotics: per ID - Pain control: per primary - Dressings: per nursing (wound care orders) - Diet: no restrictions per ortho Hari Capellan MD 10/04/2023 No future appointments. * Negar Obregon MD - 10/03/2023 1:04 PM EDT Images from the original note were not included. Hospital Medicine Daily Progress Note Date of Admission: 09/30/2023 ID: 43 y/o with h/o IVDU (methamphetamine, opiates), OUD (on Suboxone) admitted for MSSA bacteremia, and wounds over his bilateral hands, arms, left knee s/p I&D right hand abscess. 24hr events: Continues IV vanc - Changing to cefazolin today per ID Blood cx 09/25 MSSA I&D - SA - no sensitivities yet Subjective: Feels hand are doing better. No fevers. Feels swelling in hands is improving. No nausea, vomiting, tolerating po. He does not think he actually has a PCN allergy. Asking what discharge plan will be. Vitals: Last value Range last 24 hrs Temperature Temp: 36.6 ??C (97.9 ??F) Temp: [36.6 ??C (97.9 ??F)-37.1 ??C (98.8 ??F)] Heart Rate Heart Rate: 93 Heart Rate: -- Blood Pressure BP: 113/60 BP: (95-120)/(55-61) Respiratory Rate Resp: 16 Resp: [16] SpO2 SpO2: 97 % SpO2: [97 %] Intake/Output Summary (Last 24 hours) at 10/03/2023 1304 Last data filed at 10/03/2023 0607 Gross per 24 hour Intake 2340 ml Output -- Net 2340 ml Admit wt: 74.84 kg EXAM: Gen: NAD, non-toxic HEENT: Anicteric sclera CV: RRR, no m/r/g Lungs: CTA bilaterally Abd: Soft, non-tender, +BS Ext: No edema. Skin: Bandage right hand, no drainage on bandage, left hand swollen with oozing from superficial lesion, no purulence, left knee with some swelling and small open area - he feels less swollen Neuro: No gross deficits Skin: Numerous tattoes LABS: Reviewed in eDH. Remarkable for the following: Recent Labs 10/03/23 0559 10/02/23 1117 10/01/23 0921 WBC 5.7 7.7 7.6 HGB 11.6* 12.5* 11.7* HCT 35.1* 37.7* 33.9* PLATELET 416* 418* 382* Recent Labs 10/03/23 0559 10/02/23 1117 10/01/23 0921 NA 132* 133* 132* K 3.9 4.4 4.1 CL 100 100 100 CO2 25 25 24 BUN 19 14 11 CREATININE 0.69* 0.73* 0.71* GLUCOSE 152 157 329* CALCIUM 8.4* 8.7 8.3* Recent Labs 10/02/23 1247 09/30/23 1310 AST 79* 70* ALT 103* 151* ALKPHOS 78 81 BILITOT 0.3 0.2 BILIDIR 0.1 -- MICRO: No results for input(s): URINECULTURE in the last 720 hours. Recent Labs 09/26/23 2115 09/26/23 2155 09/28/23 0926 09/28/23 1001 09/30/23 1310 09/30/23 1502 10/01/23 0921 BLOODCX No growth at 5 days. Staphylococcus aureus, MSSA detected by PCR Isolate saved. If future testing is required, contact the Microbiology Chief Lock Tender Operator. * No growth at 4 days. No growth at 4 days. No growth at 2 days. No growth at 2 days. No growth at 2 days. No growth at 1 day. STUDIES: Results for orders placed or performed during the hospital encounter of 09/30/23 XR Chest PA & Lateral (Generic) (Exam End: 09/30/2023 12:48 PM) Impression No acute cardiopulmonary findings. Thank you for letting us participate in the care of this patient. If you are a health care provider and have any questions regarding this report, please contact the number below. For patients who have questions please contact the health senior care specialist that requested your imaging first. Hand Min 3 views Bilat (Generic) (Exam End: 09/30/2023 3:17 PM) Impression 1. Marked soft tissue swelling of the bilateral hands with no soft tissue gas or radiodense foreign body. 2. No radiographic evidence of advanced osteomyelitis of either hand. 3. Well-corticated ossicles adjacent to the left small finger proximal phalanx with chronic appearing deformities of the bilateral fifth metacarpals, likely represent sequela of old trauma. 4. 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 Thank you for letting us participate in the care of this patient. If you are a health care provider and have any questions regarding this report, please contact the number below. For patients who have questions please contact the health senior care specialist that requested your imaging first. Hand w Contrast Right (Exam End: 09/30/2023 5:59 PM) Impression 1. Multiloculated fluid collection along the dorsal and medial aspect of the hand measuring approximately 6.5 x 1.5 x 5.6 cm in size suspicious for abscess. 2. Small amount of tenosynovial fluid tracking proximally from the abscess along the extensor digiti minimi tendon sheath proximal to the wrist joint suspicious for septic tenosynovitis. 3. No appreciable joint effusions or CT evidence of osteomyelitis. Thank you for letting us participate in the care of this patient. If you are a health care provider and have any questions regarding this report, please contact the number below. For patients who have questions please contact the health senior care specialist that requested your imaging first. Hand w Contrast Left (Exam End: 09/30/2023 7:57 PM) Impression 1. Small third MCP joint effusion and equivocal minimal third MCP joint space narrowing. Findings are concerning for potential third MCP joint sepsis. No CT evidence of osteomyelitis. 2. Dorsal subcutaneous edema and skin thickening. Correlate with cellulitis on physical exam. 3. No loculated fluid collection/abscess. 4. No tracking soft tissue gas. Thank you for letting us participate in the care of this patient. If you are a health care provider and have any questions regarding this report, please contact the number below. For patients who have questions please contact the health senior care specialist that requested your imaging first. Medications: Scheduled Meds: ceFAZolin 2 g Intravenous Q8H nicotine 1 patch Transdermal Daily And Patch Verification 1 patch Transdermal BID sodium chloride 0.9 % (flush) 5 mL Intravenous BID enoxaparin 40 mg Subcutaneous Nightly buprenorphine-naloxone 12 mg of opiate Sublingual BID Continuous Infusions: PRN Meds:.ibuprofen, sodium chloride 0.9 % (flush), lidocaine, acetaminophen Assessment: Marcos is a 43 y/o with h/o IVDU (methamphetamine, opiates), OUD (on Suboxone) admitted for MSSA bacteremia, and multiple wounds over his bilateral hands, arms, left knee s/p I&D of right hand abscess with SA with sensitivities pending; blood cultures 09/25 MSSA, 09/[address] without vegetation[address] of right hand, which demonstrated loculated abscess to the dorsal/ulnar region s/p bedside I&D with final culture pending. CT of left without abscess or OM (did show dorsal subcutaneous edema and skin thickening suggestive of cellulitis). Change from Vanc to Ancef forMSSA. Will need multidisciplinary meeting for dispo planning and if will be OPAT candidate. Plan: # MSSA bacteremia # Multiple skin and soft tissue infections - ID consulted, appreciate recs - Stop vanc, start cefazolin 2gm Q8hr - TTE without evidence of endocarditis - CRP 17.7 to 10.3 # Right hand abscess - Orthopedics consulted, appreciate recs - s/p bedside I&D in the ED -Iodoform dressing to hand per ortho recs - no surgical intervention per note 09/29 -Wound care consults - acetaminophen PRN, ketorolac PRN # History of IVDU # OUD - Continue home buprenorphine/naloxone 12 mg twice daily #Positive HCV: -Check viral load #Routine Nutrition: Regular diet Lines/novak: PIV in place DVT Prophylaxis: Lovenox Dispo: Pending clinical course Negar Obregon MD 10/03/23 1:04 PM TEAM/PAGER: [phone] IPI Certification I certify that I am a [facility] credentialed attending provider with admitting privileges and that the patient meets or has met medical necessity to require an inpatient IPI level of care meeting a minimumof two midnights or is on the CMS inpatient only procedure list (status C) due to: MSSA bacteremia * UMaikel werner MD - 10/03/2023 10:37 AM EDT INFECTIOUS DISEASE FOLLOW-UP NOTE Active ID Issue(s): MSSA bacteremia, R hand abscess (s/p I&D) L hand cellulitis Interval Updates: No fevers No leukocytosis TTE is negative, blood cultures cleared since 09/27 Wound Cx from R hand showed MSSA Subjective: Pain is well controlled. Swelling of the hands has improved. No pruritus or rash Antimicrobials: Vancomycin Medications: Medications reviewed. Vitals: Last value Range last 24 hrs Temperature Temp: 36.6 ??C (97.9 ??F) Temp: [36.6 ??C (97.9 ??F)-37.1 ??C (98.8 ??F)] Heart Rate Heart Rate: 93 Heart Rate: -- Blood Pressure BP: 113/60 BP: (95-120)/(55-61) Respiratory Rate Resp: 16 Resp: [16] SpO2 SpO2: 97 % SpO2: [97 %] Physical Exam: General: NAD Head: NCAT EENT: No conjunctival petechiae Neck: No LAD Cardiovascular: RRR no murmurs Pulmonary: Lungs CTAB easy WOB Abdomen: Soft, NT/ND Ext: Nodular lump on b/l forearm below ebows b/l. ROM intact b/l elbows, wrists. No rash on palms/soles of feet R hand dressed, almost able to form a full fist L hand with erythema and swelling, less able to form a fist Skin: Numerous scabs on scalp, b/l hands, b/l LLE and feet. Laboratory: Recent Labs 10/03/23 0559 10/02/23 1117 10/01/23 0921 WBC 5.7 7.7 7.6 HGB 11.6* 12.5* 11.7* HCT 35.1* 37.7* 33.9* PLATELET 416* 418* 382* Recent Labs 10/03/23 0559 10/02/23 1117 10/01/23 0921 NA 132* 133* 132* K 3.9 4.4 4.1 CL 100 100 100 CO2 25 25 24 BUN 19 14 11 CREATININE 0.69* 0.73* 0.71* Recent Labs 10/02/23 1247 09/30/23 1310 AST 79* 70* ALT 103* 151* ALKPHOS 78 81 BILITOT 0.3 0.2 BILIDIR 0.1 -- Microbiology: 09/25 Bcx x2: 1/2+ MSSA 09/27 Bcx x2: NGTD 09/29 Bcx x3: NGTD 09/29 abscess/wound culture (R hand): MSSA 09/30 Bcx x1: NGTD 09/30 hep C Ab positive 09/30 syphilis negative 09/30 hep C DNA PCR pending Outside Micro 07/15/23 HIV negative HAV total antibody positive HBV surface Ag negative HBV surface Ab positive HBV core Ab positive 09/21/22 HCB Core Ab negative Radiology/Studies/Procedures: Imaging reviewed. Impression: Marcos Camejo is a 43 y.o. male with a history of IVDU who developed b/l hand pain ~ 1 week ago, seen at OSH ER 09/25 with + Bcx with MSSA who left AMA after IV vanco. He was rx'ed TMP-SMX which he has been taking, but had worsening b/l hands and admitted 09/29 for b/l hand cellulitis and R hand abscess s/p bedside drainage 09/29. Suspect entry source is skin, pt reports h/o scab-like rash erupting all over his extremities and scalp ~ 1 week ago. Some nodular lumps below elbows b/l noted, as well as erythema of L knee. On imaging there was concern for early R extensor tenosynovitis. Given thatBcx on this admission are NGTD, we recommend holding off on MARIBEL for now. Suspect skin source SSTI leading to bacteremia, not the other way around. HIV and syphilis screen were negative, but hep C ab was positive. Hep C DNA PCR is still pending. At this time, his repeat blood cultures since 09/27 onwards has been negative so far. Wound Cx from I&D of the R hand came back also positive for MSSA. We recommend switching vancomycin to cefazolin. He will need 3 weeks of IV antibiotics. He will need multidisciplinary meeting to assess candidacyfor OPAT. Recommendations: Stop vancomycin. Start cefazolin 2g IV every 8 hours until (until 10/20). Multidisciplinary meeting to assess candidacy for OPAT BIT team following. Weekly labs. Patient discussed with ID attending Dr. Ruiz. Recommendations discussed with primary team. X The Infectious Disease consult service will continue to follow the patient. Do not hesitate to page ID Red team with any further questions or concerns. ID will sign off. Please contact us if further consultation required. Maikel Herron MD Infectious Diseases Fellow Pager #: [phone] 10/03/2023 1:53 PM Associated attestation - Kyleigh Ruiz MD - 10/03/2023 3:03 PM EDT ID Attending I have seen and examined the patient and reviewed the fellow's above history, and I agree with the details as written. The assessment and plan were formulated in discussion with me, and I agree with them as documented. I saw patient with Dr. Herron yesterday DATA REVIEW Category 1: I have reviewed Labs: Lab Results Component Value Date WBC 5.7 10/03/2023 RBC 4.02 (L) 10/03/2023 HGB 11.6 (L) 10/03/2023 HCT 35.1 (L) 10/03/2023 MCV 87.3 10/03/2023 MCH 28.9 10/03/2023 MCHC 33.0 10/03/2023 PLATELET 416 (H) 10/03/2023 RDWCV 15.0 (H) 10/03/2023 Micro: Staph from hand abscess is MSSA EKG/echo: reviewed Imaging: reviewed External records in - Epic: reviewed - CareEverywhere: na - Paper records: na Category 3: The ID consult team discussed the management of this patient with and relayed our recommendations to primary team. HIGH RISK PROBLEM: Acute or chronic illness or injury that poses a threat to life or bodily function (MSSA bacteremia/possible tenosynovitis/hand abscess/bilat hand cellulitis) HIGH RISK MANAGEMENT OPTION: Drug therapy requiring intensive monitoring for toxicity (IV cefazolin- monitoring drug levels for toxicity, monitoring weekly CBC with differential and CMP) Additional comments: Recommend 3 weeks IV cefazolin as optimal management of this complicated MSSA bacteremia and with concern for tenosynovitis. BIT team has been consulted. @[email or web address]@ * Negar Obregon MD - 10/02/2023 11:49 AM EDT Images from the original note were not included. Hospital Medicine Daily Progress Note Date of Admission: 09/30/2023 ID: 43 y/o with h/o IVDU (methamphetamine, opiates), OUD (on Suboxone) admitted for MSSA bacteremia, and wounds over his bilateral hands, arms, left knee s/p I&D right hand abscess. 24hr events: Continues IV vanc Blood cx 09/25 MSSA I&D - GPC, many neutrophils Subjective: He denies significant hand pain. No acute complaints. No fevers, chills. No abdominal pain or nausea. No CP or SOB. Vitals: Last value Range last 24 hrs Temperature Temp: 37 ??C (98.6 ??F) Temp: [36.9 ??C (98.4 ??F)-37.5 ??C (99.5 ??F)] Heart Rate Heart Rate: 93 Heart Rate: -- Blood Pressure BP: 126/57 BP: (118-126)/(57-68) Respiratory Rate Resp: 16 Resp: [16-18] SpO2 SpO2: 98 % SpO2: [97 %-99 %] Intake/Output Summary (Last 24 hours) at 10/02/2023 1149 Last data filed at 10/02/2023 1139 Gross per 24 hour Intake 2920 ml Output -- Net 2920 ml Admit wt: 74.84 kg EXAM: Gen: NAD, non-toxic HEENT: Anicteric sclera CV: RRR, no m/r/g Lungs: CTA bilaterally Abd: Soft, non-tender,, +BS Ext: No edema. Skin: Bandage right hand, no drainage Neuro: No gross deficits Skin: Numerous tattoes LABS: Reviewed in eDH. Remarkable for the following: Recent Labs 10/01/23 0921 09/30/23 1310 WBC 7.6 7.7 HGB 11.7* 13.2* HCT 33.9* 39.0* PLATELET 382* 399* Recent Labs 10/01/23 0921 09/30/23 1310 NA 132* 134* K 4.1 4.0 CL 100 100 CO2 24 22 BUN 11 12 CREATININE 0.71* 0.71* GLUCOSE 329* 200* CALCIUM 8.3* 8.9 Recent Labs 09/30/23 1310 AST 70* ALT 151* ALKPHOS 81 BILITOT 0.2 MICRO: No results for input(s): URINECULTURE in the last 720 hours. Recent Labs 09/26/23211409/26/23 2155 09/28/23 0926 09/28/23 1001 09/30/23 1310 09/30/23 1502 BLOODCX No growth at 4 days. Staphylococcus aureus, MSSA detected by PCR Isolate saved. If future testing is required, contact the Microbiology Chief Lock Tender Operator. * No growth at 3 days. No growth at 3 days. No growth at 1 day. No growth at 1 day. No growth at 1 day. STUDIES: Results for orders placed or performed during the hospital encounter of 09/30/23 XR Chest PA & Lateral (Generic) (Exam End: 09/30/2023 12:48 PM) Impression No acute cardiopulmonary findings. Thank you for letting us participate in the care of this patient. If you are a health care provider and have any questions regarding this report, please contact the number below. For patients who have questions please contact the health senior care specialist that requested your imaging first. Hand Min 3 views Bilat (Generic) (Exam End: 09/30/2023 3:17 PM) Impression 1. Marked soft tissue swelling of the bilateral hands with no soft tissue gas or radiodense foreign body. 2. No radiographic evidence of advanced osteomyelitis of either hand. 3. Well-corticated ossicles adjacent to the left small finger proximal phalanx with chronic appearing deformities of the bilateral fifth metacarpals, likely represent sequela of old trauma. 4. 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 Thank you for letting us participate in the care of this patient. If you are a health care provider and have any questions regarding this report, please contact the number below. For patients who have questions please contact the health senior care specialist that requested your imaging first. Hand w Contrast Right (Exam End: 09/30/2023 5:59 PM) Impression 1. Multiloculated fluid collection along the dorsal and medial aspect of the hand measuring approximately 6.5 x 1.5 x 5.6 cm in size suspicious for abscess. 2. Small amount of tenosynovial fluid tracking proximally from the abscess along the extensor digiti minimi tendon sheath proximal to the wrist joint suspicious for septic tenosynovitis. 3. No appreciable joint effusions or CT evidence of osteomyelitis. Thank you for letting us participate in the care of this patient. If you are a health care provider and have any questions regarding this report, please contact the number below. For patients who have questions please contact the health senior care specialist that requested your imaging first. Hand w Contrast Left (Exam End: 09/30/2023 7:57 PM) Impression 1. Small third MCP joint effusion and equivocal minimal third MCP joint space narrowing. Findings are concerning for potential third MCP joint sepsis. No CT evidence of osteomyelitis. 2. Dorsal subcutaneous edema and skin thickening. Correlate with cellulitis on physical exam. 3. No loculated fluid collection/abscess. 4. No tracking soft tissue gas. Thank you for letting us participate in the care of this patient. If you are a health care provider and have any questions regarding this report, please contact the number below. For patients who have questions please contact the health senior care specialist that requested your imaging first. Medications: Scheduled Meds: nicotine 1 patch Transdermal Daily And Patch Verification 1 patch Transdermal BID vancomycin 1.5 g Intravenous Q12H sodium chloride 0.9 % (flush) 5 mL Intravenous BID enoxaparin 40 mg Subcutaneous Nightly buprenorphine-naloxone 12 mg of opiate Sublingual BID Continuous Infusions: PRN Meds:.vancomycin, sodium chloride 0.9 % (flush), lidocaine, acetaminophen, ketorolac Assessment: Marcos is a 43 y/o with h/o IVDU (methamphetamine, opiates), OUD (on Suboxone) admitted for MSSA bacteremia, and multiple wounds over his bilateral hands, arms, left knee s/p I&D of right hand abscess with GPC and neutrophils on gram stain; blood cultures 09/25 MSSA, 09/27 NGTD. Continues on IV vancomycin pending sensitivities from I&D. TTE without vegetation. CT of right hand, which demonstrated loculated abscess to the dorsal/ulnar region s/p bedside I&D with finalculture pending. CT of left without abscess or OM (did show dorsal subcutaneous edema and skin thickening suggestive of cellulitis). Plan: # MSSA bacteremia # Multiple skin and soft tissue infections - ID consulted, appreciate recs - Continue vancomycin pending final cultures - TTE without evidence of endocarditis - CRP 17.7 to 10.3 # Right hand abscess - Orthopedics consulted, appreciate recs - s/p bedside I&D in the ED -Iodoform dressing to hand per ortho recs - no surgical intervention per note 09/29 -Wound care consults - acetaminophen PRN, ketorolac PRN # History of IVDU # OUD - Continue home buprenorphine/naloxone 12 mg twice daily #Routine Nutrition: Regular diet Lines/novak: PIV in place DVT Prophylaxis: Lovenox Dispo: Pending clinical course Negar Obregon MD 10/02/23 11:49 AM TEAM/PAGER: [phone] IPI Certification I certify that I am a [facility] credentialed attending provider with admitting privileges and that the patient meets or has met medical necessity to require an inpatient IPI level of care meeting a minimumof two midnights or is on the [facility] inpatient only procedure list (status C) due to: MSSA bacteremia * Lucia Portillo - 10/02/2023 7:05 AM EDT Images from the original note were not included. [facility] Medicine Daily Progress Note Patient information: Name: Marcos Camejo : 1980 PCP: Milo Baer MD PCP phone number: [phone] Date of Admission: 09/30/2023 ( Hospital Day 2 days ) Responsible Attending: Negar Obregon MD ID: Marcos Camejo is a pleasant 43 y.o. with a past medical history of IVDU (methamphetamine, opiates), OUD (on Suboxone) who was admitted for MSSA bacteremia, bilateral hand cellulitis s/p R hand abscess I&D. Subjective/24hr events: - No acute events overnight - Patient afebrile during past 24 hours - Patient reports no pain today, good appetite Vitals: Last value Range last 24 hrs Temperature Temp: 37 ??C (98.6 ??F) Temp: [36.9 ??C (98.4 ??F)-37.5 ??C (99.5 ??F)] Heart Rate Heart Rate: 93 Heart Rate: -- Blood Pressure BP: 126/57 BP: (118-126)/(57-68) Respiratory Rate Resp: 16 Resp: [16-18] SpO2 SpO2: 98 % SpO2: [97 %-99 %] Intake/Output Summary (Last 24 hours) at 10/02/2023 1219 Last data filed at 10/02/2023 1139 Gross per 24 hour Intake 2470 ml Output -- Net 2470 ml Admit wt: 74.84 kg EXAM: Gen: Well appearing and in no acute distress. CV: Normal S1, S2. Regular rate and rhythm, no murmur. Pulm: Non-labored respiration. Clear to auscultation bilaterally, no wheezes or rhonchi. Abd: Soft, non-tender and non-distended. No organomegaly appreciated. Ext: L dorsal hand with erythema and edema, no pain to palpation. Bandage wrapped over R hand. No lower extremity edema. Skin: Several scabs on upper and lower extremities bilaterally. Neuro: CN II-XII grossly intact, no focal deficits. LABS: Reviewed in eDH. Remarkable for the following: Recent Labs 10/02/23 1117 10/01/23 0921 09/30/23 1310 WBC 7.7 7.6 7.7 HGB 12.5* 11.7* 13.2* HCT 37.7* 33.9* 39.0* PLATELET 418* 382* 399* Recent Labs 10/01/23 0921 09/30/23 1310 NA 132* 134* K 4.1 4.0 CL 100 100 CO2 24 22 BUN 11 12 CREATININE 0.71* 0.71* GLUCOSE 329* 200* CALCIUM 8.3* 8.9 Recent Labs 09/30/23 1310 AST 70* ALT 151* ALKPHOS 81 BILITOT 0.2 MICRO: No results for input(s): URINECULTURE in the last 720 hours. Recent Labs 09/26/23 2115 09/26/23 2155 09/28/23 0926 09/28/23 1001 09/30/23 1310 09/30/23 1502 BLOODCX No growth at 4 days. Staphylococcus aureus, MSSA detected by PCR Isolate saved. If future testing is required, contact the Microbiology Chief Lock Tender Operator. * No growth at 3 days. No growth at 3 days. No growth at 1 day. No growth at 1 day. No growth at 1 day. STUDIES: Results for orders placed or performed during the hospital encounter of 09/30/23 XR Chest PA & Lateral (Generic) (Exam End: 09/30/2023 12:48 PM) Impression No acute cardiopulmonary findings. Thank you for letting us participate in the care of this patient. If you are a health care provider and have any questions regarding this report, please contact the number below. For patients who have questions please contact the health senior care specialist that requested your imaging first. Hand Min 3 views Bilat (Generic) (Exam End: 09/30/2023 3:17 PM) Impression 1. Marked soft tissue swelling of the bilateral hands with no soft tissue gas or radiodense foreign body. 2. No radiographic evidence of advanced osteomyelitis of either hand. 3. Well-corticated ossicles adjacent to the left small finger proximal phalanx with chronic appearing deformities of the bilateral fifth metacarpals, likely represent sequela of old trauma. 4. 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 Thank you for letting us participate in the care of this patient. If you are a health care provider and have any questions regarding this report, please contact the number below. For patients who have questions please contact the health senior care specialist that requested your imaging first. Hand w Contrast Right (Exam End: 09/30/2023 5:59 PM) Impression 1. Multiloculated fluid collection along the dorsal and medial aspect of the hand measuring approximately 6.5 x 1.5 x 5.6 cm in size suspicious for abscess. 2. Small amount of tenosynovial fluid tracking proximally from the abscess along the extensor digiti minimi tendon sheath proximal to the wrist joint suspicious for septic tenosynovitis. 3. No appreciable joint effusions or CT evidence of osteomyelitis. Thank you for letting us participate in the care of this patient. If you are a health care provider and have any questions regarding this report, please contact the number below. For patients who have questions please contact the health senior care specialist that requested your imaging first. Hand w Contrast Left (Exam End: 09/30/2023 7:57 PM) Impression 1. Small third MCP joint effusion and equivocal minimal third MCP joint space narrowing. Findings are concerning for potential third MCP joint sepsis. No CT evidence of osteomyelitis. 2. Dorsal subcutaneous edema and skin thickening. Correlate with cellulitis on physical exam. 3. No loculated fluid collection/abscess. 4. No tracking soft tissue gas. Thank you for letting us participate in the care of this patient. If you are a health care provider and have any questions regarding this report, please contact the number below. For patients who have questions please contact the health senior care specialist that requested your imaging first. Medications: Scheduled Meds: nicotine 1 patch Transdermal Daily And Patch Verification 1 patch Transdermal BID vancomycin 1.5 g Intravenous Q12H sodium chloride 0.9 % (flush) 5 mL Intravenous BID enoxaparin 40 mg Subcutaneous Nightly buprenorphine-naloxone 12 mg of opiate Sublingual BID Continuous Infusions: PRN Meds:.vancomycin, sodium chloride 0.9 % (flush), lidocaine, acetaminophen, ketorolac ASSESSMENT: Marcos Camejo is a 43 y.o. year old male with past medical history of IVDU (methamphetamine, opiates), OUD (on Suboxone) admitted on 09/30/2023 ( Hospital Day 2 days ) for MSSA bacteremia, bilateralhand cellulitis s/p R hand abscess I&D. Patient was seen at OSH ED on 09/25 following development of scab-like rash over extremities and bilateral hand swelling approximately 1 week ago. At OSH, blood culture positive for MSSA. He received a few doses of IV vancomycin but left AMA and was prescribed TMP-SMX. Patient developed worsening bilateral hand pain and represented to ED on 09/29 for bilateral hand cellulitis and R hand abscess. CTof R hand demonstrated loculated abscess to the dorsal/ulnar region and ortho performed bedside I&D on 09/29. CT of L hand showed no loculated fluid collection/abscess or evidence of osteomyelitis, but did show dorsal subcutaneous edema and skin thickening suggestive of cellulitis. Overall, patient fells well. He has no leukocytosis, is afebrile, ESR/CRP are downtrending, and pain is well-controlled. Blood cultures from 09/25 show MSSA in 1 of 2 bottles. R hand abscess cultures from 09/29 show GPC, awaiting susceptibility testing. On 09/30, TTE was done for endocarditis workup, which showed no hemodynamically significant valve disease. Suspect skin source SSTI lead to bacteremia. Will continue treatment with IV vancomycin until susceptibility results from R hand abscess culture. Of note, patient tested positive for Hepatitis C during admission, negative for HIV and syphilis. Will obtain viral load and follow-up for treatment upon discharge. PLAN: # MSSA bacteremia # Multiple skin and soft tissue infections - ID consulted, appreciate recs - s/p ceftriaxone in ED - Continue vancomycin (AUC 400-600) - Trend ESR/CRP - Follow R hand abscess culture # Right hand abscess - Orthopedics consulted, appreciate recs - s/p bedside I&D in the ED on 09/29 - No surgical indication - Trend ESR/CRP - Non-opioid pain control with acetaminophen PRN, ketorolac PRN - No surgical indication # History of IVDU # OUD - Continue home buprenorphine/naloxone 12 mg twice daily - Avoid opioid medications if possible #Routine Nutrition: Regular diet Lines/novak: PIV in place DVT Prophylaxis: LMWH GI Prophylaxis: not indicated Glycemic control: not indicated Code Status: Attempt Cardiopulmonary Resuscitation - Inpatient Dispo: Pending clinical course Lucia Portillo, MS3 10/02/23 12:19 PM TEAM/PAGER: [id number] * Hari Capellan MD - 10/01/2023 11:11 PM EDT ORTHOPAEDIC HAND SURGERY INPATIENT PROGRESS NOTE Patient Name: Marcos Camejo Age: 43 y.o. Surgery/Issue: Bilateral hand cellulitis, right hand abscess status post bedside I&D, left longfinger MCP septic arthritis Attending: Adis Date of surgery: None SUBJECTIVE / INTERVAL HISTORY: AF, VSS. NAEON. ID consulted -recommending continued Vanc, HIV/HCV antibody screen, syphilis test Iodoform packing to right hand abscess replaced. No issues overnight. Patient offers no complaints. Pain well controlled, denies N/V. FOCUSED REVIEW OF SYSTEMS: as above. Active Hospital Problems Diagnosis Bacteremia due to Staphylococcus aureus Resolved Hospital Problems No resolved problems to display. There are no active non-hospital problems to display for this patient. MEDICATIONS: nicotine (Nicoderm CQ) 21 mg/24 hr patch 21 mg AND nicotine (Nicoderm CQ) 21 mg/24 hr patch Patch Verification vancomycin (Vancocin) 1.5 gram in sodium chloride 0.9% 500 mL infusion vancomycin (Vancocin) - dosing by AUC sodium chloride 0.9 % (flush) (BD PosiFlush Normal Saline 0.9) flush 5 mL sodium chloride 0.9 % (flush) (BD PosiFlush Normal Saline 0.9) flush 5-20 mL lidocaine (Xylocaine) 1% (10 mg/mL) injection 3 mg enoxaparin (Lovenox) (40 mg/0.4 mL) subcutaneous injection 40 mg acetaminophen (Tylenol) tablet 975 mg ketorolac (Toradol) (15 mg/mL) injection 15 mg buprenorphine-naloxone (Suboxone) sublingual tablet 12 mg of opiate OBJECTIVE: Temp: [36.9 ??C (98.4 ??F)-37.5 ??C (99.5 ??F)] Resp: [16-20] BP: (118-122)/(63-68) Intake/Output Summary (Last 24 hours) at 10/01/2023 2314 Last data filed at 10/01/2023 1600 Gross per 24 hour Intake 2525 ml Output -- Net 2525 ml BMI: Weight: 74.8 kg (165 lb) (09/30/23 1238) BMI (Calculated): 24.36 BMI Classification: Normal Weight Body mass index is 24.37 kg/m??. PE: General: awake/alert, responds to questions CV: RRR assessed peripherally Resp: Breathing comfortably on RA Right hand Diffuse swelling and scabbing in the hand, dorsal abscess with 1 cm incision iodoform packing No fusiform swelling of the digits. 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 Normal cascade of digits with flexion limited by dorsal tightness Diffusely TTP over the wrist, hand, fingers Full extension and flexion of MCP, IP joints Sensation intact to light touch in radial, median ulnar distributions Motor intact wrist flexion/extension, nuclear plant instrument technician, AIN/PIN/IO intact Brisk capillary refill distally 2+ radial pulse Lab Results Component Value Date NA 132 (L) 10/01/2023 K 4.1 10/01/2023 CL 100 10/01/2023 CO2 24 10/01/2023 BUN 11 10/01/2023 CREATININE 0.71 (L) 10/01/2023 GLUCOSE 329 (H) 10/01/2023 CALCIUM 8.3 (L) 10/01/2023 Lab Results Component Value Date WBC 7.6 10/01/2023 HGB 11.7 (L) 10/01/2023 HCT 33.9 (L) 10/01/2023 MCV 84.1 10/01/2023 PLATELET 382 (H) 10/01/2023 IMAGING: CT right and left hand 09/30/2023: Loculated abscess to the dorsal aspect of the right hand with diffuse soft tissue swelling throughout the hand. Diffuse soft tissue swelling to the left hand with third MCP joint swelling. ASSESSMENT / PLAN: Marcos Camejo is a 43 y.o. male RHD history of IVDU, S. aureus bacteremia bilateral hand swelling with ongoing infectious source workup per hospital medicine and infectious disease. Orthopedic hand surgery was consulted regarding right and left hand swelling in the context of right hand abscess (s/p bedside I&D) left hand long finger MCP joint swelling, and diffuse swelling to bilateral hands. Recommend continued antibiotic therapy and workup per the medicine and infectious disease teams. Recommend daily dressing changes including iodoform packing to the right hand dorsal abscess with gauze and Kerlix wrapping per nursing and wound care order. Orthopedic surgery will sign off at this time and continue to follow peripherally. Please page [phone] any acute concerns. Orthopedic surgery will reevaluate the patient early next week for possible progression of dressing changes to wet-to-dry. - Activity: AAT/WBAT b/l UE - Antibiotics: per ID - Pain control: per primary - Dressings: per nursing (wound care orders) - Diet: no restrictions per ortho Hari Capellan MD 10/01/2023 No future appointments. * Joe Wells MD - 10/01/2023 2:22 PM EDT Images from the original note were not included. Hospital Medicine Daily Progress Note Patient information: Name: Marcos Camejo : 1980 PCP: Milo Baer MD PCP phone number: [phone] Date of Admission: 09/30/2023 ( Hospital Day 1 day ) Responsible Attending: Joe Wells MD ID: Marcos Camejo is a pleasant 43 y.o. with a past medical history of IVDU (methamphetamine, opiates), OUD (on Suboxone) who was admitted for MSSA bacteremia, and multiple wounds over his bilateral hands, arms, left knee . Subjective/24hr events: - ID consulted today for MSSA bacteremia - Patient denies pain this morning Vitals: Last value Range last 24 hrs Temperature Temp: 36.9 ??C (98.4 ??F) Temp: [36.9 ??C (98.4 ??F)-37.4 ??C (99.3 ??F)] Heart Rate Heart Rate: 93 Heart Rate: [83-99] Blood Pressure BP: 122/67 BP: (114-149)/(55-88) Respiratory Rate Resp: 18 Resp: [12-22] SpO2 SpO2: 97 % SpO2: [96 %-100 %] Intake/Output Summary (Last 24 hours) at 10/01/2023 1422 Last data filed at 10/01/2023 1200 Gross per 24 hour Intake 2635 ml Output 1 ml Net 2634 ml Admit wt: 74.84 kg EXAM: Gen: Well appearing and in no acute distress. CV: Normal S1, S2. Regular rate and rhythm, no murmur. Pulm: Non-labored respiration. Clear to auscultation bilaterally, no wheezes or rhonchi. Abd: Soft, non-tender and non-distended. No organomegaly appreciated. Ext: No edema. Skin: Diffuse erythema and edema over L dorsal hand. Bandage wrapped over R hand. Several wounds onextremities. Neuro: CN II-XII grossly intact, no focal deficits. LABS: Reviewed in e[facility]. Remarkable for the following: Recent Labs 10/01/23 0921 09/30/23 1310 WBC 7.6 7.7 HGB 11.7* 13.2* HCT 33.9* 39.0* PLATELET 382* 399* Recent Labs 10/01/23 0921 09/30/23 1310 NA 132* 134* K 4.1 4.0 CL 100 100 CO2 24 22 BUN 11 12 CREATININE 0.71* 0.71* GLUCOSE 329* 200* CALCIUM 8.3* 8.9 Recent Labs 09/30/23 1310 AST 70* ALT 151* ALKPHOS 81 BILITOT 0.2 MICRO: No results for input(s): URINECULTURE in the last 720 hours. Recent Labs 09/26/23 2115 09/26/23 2155 09/28/23 0926 09/28/23 1001 BLOODCX No growth at 3 days. Staphylococcus aureus, MSSA detected by PCR Isolate saved. If future testing is required, contact the Microbiology Chief Lock Tender Operator. * No growth at 2 days. No growth at 2 days. STUDIES: Results for orders placed or performed during the hospital encounter of 09/30/23 XR Chest PA & Lateral (Generic) (Exam End: 09/30/2023 12:48 PM) Impression No acute cardiopulmonary findings. Thank you for letting us participate in the care of this patient. If you are a health care provider and have any questions regarding this report, please contact the number below. For patients who have questions please contact the health senior care specialist that requested your imaging first. Hand Min 3 views Bilat (Generic) (Exam End: 09/30/2023 3:17 PM) Impression 1. Marked soft tissue swelling of the bilateral hands with no soft tissue gas or radiodense foreign body. 2. No radiographic evidence of advanced osteomyelitis of either hand. 3. Well-corticated ossicles adjacent to the left small finger proximal phalanx with chronic appearing deformities of the bilateral fifth metacarpals, likely represent sequela of old trauma. 4. 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 Thank you for letting us participate in the care of this patient. If you are a health care provider and have any questions regarding this report, please contact the number below. For patients who have questions please contact the health senior care specialist that requested your imaging first. Hand w Contrast Right (Exam End: 09/30/2023 5:59 PM) Impression 1. Multiloculated fluid collection along the dorsal and medial aspect of the hand measuring approximately 6.5 x 1.5 x 5.6 cm in size suspicious for abscess. 2. Small amount of tenosynovial fluid tracking proximally from the abscess along the extensor digiti minimi tendon sheath proximal to the wrist joint suspicious for septic tenosynovitis. 3. No appreciable joint effusions or CT evidence of osteomyelitis. Thank you for letting us participate in the care of this patient. If you are a health care provider and have any questions regarding this report, please contact the number below. For patients who have questions please contact the health senior care specialist that requested your imaging first. Hand w Contrast Left (Exam End: 09/30/2023 7:57 PM) Impression 1. Small third MCP joint effusion and equivocal minimal third MCP joint space narrowing. Findings are concerning for potential third MCP joint sepsis. No CT evidence of osteomyelitis. 2. Dorsal subcutaneous edema and skin thickening. Correlate with cellulitis on physical exam. 3. No loculated fluid collection/abscess. 4. No tracking soft tissue gas. Thank you for letting us participate in the care of this patient. If you are a health care provider and have any questions regarding this report, please contact the number below. For patients who have questions please contact the health senior care specialist that requested your imaging first. Medications: Scheduled Meds: nicotine 1 patch Transdermal Daily And Patch Verification 1 patch Transdermal BID vancomycin 1.5 g Intravenous Q12H sodium chloride 0.9 % (flush) 5 mL Intravenous BID enoxaparin 40 mg Subcutaneous Nightly buprenorphine-naloxone 12 mg of opiate Sublingual BID Continuous Infusions: PRN Meds:.vancomycin, sodium chloride 0.9 % (flush), lidocaine, acetaminophen, ketorolac ASSESSMENT: Marcos Camejo is a 43 y.o. year old male with past medical history of IVDU (methamphetamine, opiates), OUD (on Suboxone) admitted on 09/30/2023 ( Hospital Day 1 day ) for MSSA bacteremia, and multiple wounds over his bilateral hands, arms, left knee. Patient was started on IV vancomycin and ceftriaxone in the emergency department. Blood cultures from [facility] show 1 bottle growing MSSA bacteremia. Will consult ID for recommendationson antibiotic de-escalation and duration of treatment. Today, patient is afebrile, has no leukocytosis and vital signs are stable. CRP remains elevated but improved from yesterday (17.7 --> 10.3).TTE was obtained for endocarditis workup, which showed no hemodynamically significant valve disease. Ortho was consulted and recommended obtaining CT of right hand, which demonstrated loculated abscess to the dorsal/ulnar region. A bedside I&D was performed in the ED to his right dorsal hand. CTof left hand showed no loculated fluid collection/abscess or evidence of osteomyelitis, but did show dorsal subcutaneous edema and skin thickening suggestive of cellulitis. Will continue to monitor Lhand for signs of cellulitis. PLAN: # MSSA bacteremia # Multiple skin and soft tissue infections - ID consulted, appreciate recs - Continue vancomycin, consider de-escalation - Discontinued ceftriaxone - TTE showing no evidence of endocarditis - Daily ESR/CRP # Right hand abscess - Orthopedics consulted, appreciate recs - s/p bedside I&D in the ED - No surgical indication - Daily ESR/CRP - Non-opioid pain control with - No surgical indication acetaminophen PRN, ketorolac PRN # History of IVDU # OUD - Continue home buprenorphine/naloxone 12 mg twice daily - Avoid opioid medications if possible #Routine Nutrition: Regular diet Lines/novak: PIV in place DVT Prophylaxis: LMWH GI Prophylaxis: not indicated Glycemic control: obtain A1c Code Status: Attempt Cardiopulmonary Resuscitation - Inpatient Dispo: Pending clinical course Lucia Portillo, MS3 10/01/23 2:22 PM TEAM/PAGER: 2200 Attending Addendum Please see Lucia Portillo's note for details of the patient history of presentation and data. I have discussed, reviewed and agree with the documented History, Physical findings, Assessment and Plan ofcare. I have examined the patient myself and personally reviewed all studies. In addition, I certify thatI am a D-H credentialed attending provider with admitting privileges and that the patient meets or has met medical necessity to require an inpatient IPI level of care meeting a minimum of two midnights or is on the [facility] inpatient only procedure list (status C) due to: MSSA bacteremia. In brief, Marcos Camejo is a pleasant 43 y.o. with a past medical history of IVDU (methamphetamine, opiates), OUD (on Suboxone) who was admitted for MSSA bacteremia, and multiple wounds over his bilateral hands, arms, left knee. On examination - Diffuse erythema and edema over L dorsal hand. Bandage wrapped over R hand. He was noted to have fluctuant abscess on the right had yesterday and may need I & D in the coming days depending on his progress with the antibiotics. Appreciate Infectious disease consult. Continued on iv antibiotics. * Romario Parra RN - 09/30/2023 9:00 PM EDT Pt arrived to [facility] from the ED w/ belongings. Pt AOx4. VSS on RA. Pt rates pain to b/l hands as 5/10, denies SOB, CP, and N/V. Pt ind in room. Pt oriented to room. Call light in reach, bed low. documented in this encounter H&P Notes * Spenser Aguilar MD - 09/30/2023 3:46 PM EDT Hospital Medicine Admission History and Physical Patient Name: MARCOS CAMEJO Date of : 1980 Age: 43 y.o. Hospital Admit Date: 09/30/2023 Inpatient Attending: Eugene Hidalgo MD PCP: Milo Baer MD Presenting Diagnosis/Chief Complaint: Blood infection History of Present Illness: Marcos Camejo is a 43 y.o. male with PMHx of IVDU (methamphetamine, opiates), OUD (on Suboxone), who presents [place] [facility] with concern for staph bacteremia, multiple wounds over his bilateral hands,arms, left knee. Patient reports that he last used IV methamphetamine 7 days ago. He notes that it must have been rené batch. Reports after using that he had onset of feet pain and hand pain that developed into infected skin wounds. He presented to [facility] on 09/25. At [facility] he had blood cultures drawn, 1 out of 2 bottles growing MSSA. He was treated with 1 dose of vancomycin and recommended admission to the hospital, but he decided to leave [facility] so he was discharged home on TMP-[id number]. He re-presented 2 days later with worsened swelling, labs showing an elevated lactate, leukocytosis. Ortho saw patient at [facility] and recommended transfer to , however there were no beds available so patient left again. Patient reports that since going home he has had ongoing pain in his hands and left knee and subsequently represented to [facility] for further evaluation. ED course: patient was hemodynamically stable, afebrile. Bcx drawn and patient was started on IV vancomycin and ceftriaxone. Review of Systems (Positives in Bold): General: fevers, chills, night sweats; recent weight changes; fatigue EENT: changes in vision; changes in hearing; rhinorrhea, congestion, sinus pain, sore throat Cardiovascular: chest pain; palpitations; dizziness or lightheadedness, edema Respiratory: SOB, MACIEL , cough,wheeze GI: abdominal pain; nausea, vomiting, diarrhea, or constipation, blood in stool : dysuria; urgency, frequency, hesitancy Musculoskeletal: Bilateral hand pain, knee pain Derm: Wounds over bilateral upper extremities, lower extremities, hands Endocrine: heat or cold intolerace; polyuria/polydipsia Heme: easy bruising or bleeding Neuro: headaches; numbness or tingling; weakness;incoordination Psych: mood good PHYSICAL EXAM: Vitals: Temp 36.9 C HR 83 BP 118/69 RR 14 SpO2 100% on room air Gen: Alert & oriented x3, NAD HEENT: No scleral icterus, EOMI, PERRLA, atraumatic CV: Regular rate and rhythm, physiologic S2 splitting, no audible murmurs rubs or gallops Pulm: Normal respiratory effort, CTA with good air entery bilaterally, no rales/rhonchi/wheezes Abd: Non-distended, soft, NT, ND, no masses, no guarding Ext: Erythema and swelling over the dorsal side right hand with significant swelling/induration/warmth. Erythema and swelling of the left hand with open wounds draining purulent discharge, there is an area of warmth and induration over the left tibial tubercle, there is no left knee joint space tenderness, erythema, or pain with range of motion inside the joint space Neuro: Grossly intact, moving all four extremities. Skin: Multiple scattered excoriations over bilateral upper extremities, lower extremities with somehoney crusting, Notable Labs: WBC - 7.7 (16 on 09/25) Hgb - 13.2 Platelets - 399 CRP - 17.7 ESR - pending Lactate - 1.6 Blood cultures - pending Imaging/Diagnostics: XR Hand Min 3 views Bilat (Generic) 1. Marked soft tissue swelling of the bilateral hands with no soft tissue gas or radiodense foreignbody. 2. No radiographic evidence of advanced osteomyelitis of either hand. 3. Well-corticated ossicles adjacent to the left small finger proximal phalanx with chronic appearing deformities of the bilateral fifth metacarpals, likely represent sequela of old trauma. 4. 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 XR Chest PA & Lateral 09/30/23 No cardiopulmonary process XR Hand Min 3 views Bilat 09/27 Extensive soft tissue swelling over the dorsum of both hands. No soft tissue gas detected. No evidence of osseous destructive changes to suggest osteomyelitis. No fractures seen. No focal osseous lesions. CT Abdomen & Pelvis w Contrast 09/28/23 1. Hepatosplenomegaly. 2. Trace amount of pelvic ascites. 3. No abscess identified. ASSESSMENT and PLAN: Marcos Camejo is a 43 y.o. male with PMHx of IVDU (methamphetamine, opiates), OUD (on Suboxone), who presents [place] [facility] with concern for staph bacteremia, multiple wounds over his bilateral hands,arms, left knee. Patient has multiple skin and soft tissue infections over bilateral upper extremities and lower extremities. There is a large area of induration, swelling, erythema over the right hand that is concerning for possible abscess. X-ray did not reveal any advanced osteo, but did show significant swelling. Discussed with orthopedics, who recommended getting a CT of the hand. The left hand appears to bealready open and draining. The area of swelling and induration over his left knee I think is superficial and does not represent a true joint space infection given no joint space tenderness or significant pain in the joint with range of motion. Suspect this is likely secondary to the large wound over the area. Patient has 1 bottle of MSSA growing from [facility]. Will need to treat this as a truestaph bacteremia and obtain endocarditis workup. We will follow blood cultures daily, obtain TTE, trend CRP/ESR. Patient was started on vancomycin and ceftriaxone in the emergency department, I have a low clinical suspicion for endocarditis at this time, we will continue with empiric coverage untilthe formal TTE tomorrow. For patient's home medications, he reports he takes 12 mg twice daily of Suboxone. I called his Suboxone prescriber, [facility] who confirmed the dose. Will treat his pain with nonopioids including Tylenol and NSAIDs. #MSSA bacteremia #Concern for endocarditis #Multiple skin and soft tissue infections - Continue vancomycin - Continue ceftriaxone - Formal TTE - Daily ESR/CRP - ID consult for MSSA bacteremia #Right hand swelling and erythema, concern for abscess/SSTI vs joint space infection versus osteomyelitis - Orthopedics consulted, recommend CT of the hand - Daily ESR/CRP - No surgical indication - Nonopioid pain control, Tylenol, ketorolac #IVDU #OUD - Continue home Suboxone 12 mg twice daily - Avoid opioids if possible #Housekeeping: - DVT PPx: Lovenox - GI PPx: Not applicable - Diet: Regular diet - Level of care: MedSurg - Vitals: Every 4 hours - Code Satus: Full code Spenser Aguilar MD PGY 2 Internal Medicine Resident Admitter Associated attestation - Jay Jiménez MD - 09/30/2023 5:29 PM EDT Attending Attestation and Certification Please see Spenser Aguilar MD's note for details of the patient history of presentation and data. I have discussed, reviewed and agree with the documented History, Physical findings, Assessment and Plan of care. I have examined the patient myself and personally reviewed all studies. In addition, I certify thatI am a D-H credentialed attending provider with admitting privileges and that the patient meets or has met medical necessity to require an inpatient IPI level of care meeting a minimum of two midnights or is on the [facility] inpatient only procedure list (status C) due to: MSSA bacteremia, bilateral handcellulitis with concern for underlying abscess Appreciate Orthopedics/Hand evaluation, as R dorsal ulner swelling is significant with some fluctuance, though at least on X-rays obtained in ED there is no obvious osseous involvement. The left handis already draining on its own. Will obtain TTE, discuss with ID. Jay Jiménez MD [facility] 09/30/2023 documented in this encounter ED Notes * Tia Mendoza RN - 09/30/2023 7:28 PM EDT Admitting team paged - pt asking if he is able to have his Suboxone now. This RN asked pt what timehe typically likes to take his medication. Pt states usually when they start to not feel well and that they are not feeling well at this time. Ortho at bedside at this time. Post drainage. Pt states that they are not having any pain at this time. * Vincent Weir PA - 09/30/2023 3:38 PM EDT Images from the original note were not included. ED Provider Note HPI: Marcos Camejo is a 43 y.o. male with a history of opioid use disorder on Suboxone who presents tot Emergency Department for evaluation of bilateral hand swelling, positive blood cultures. Patient reports he noted bilateral hand swelling 1 week ago and was seen at [facility] 2 days ago. Patient reports he had blood cultures drawn at that time that showed positive for Staph aureus. Patient reports they wanted to admit him but he left AMA after receiving a few doses of IV vancomycin. Patient reports he was discharged with Bactrim Which he has been taking. Patient reports increased pain and swelling in his hands as well as his left knee. Patient reports that he did use IV meth 1 weekago but denies injecting anything into his hands. Patient denies any fevers or chills but reports some shortness of breath and chest pain as well as generalized feeling unwell. History obtained by patient, chart review. ROS as per HPI Vitals: ED Triage Vitals BP: 143/90 [09/30/23 1238] Heart Rate: 89 [09/30/23 1430] Resp: 18 [09/30/23 1238] Temp: 36.9 ??C (98.4 ??F) [09/30/23 1238] Temp src: Temporal [09/30/23 1238] SpO2: 97 % [09/30/23 1238] O2 Device: RA [09/30/23 123] O2 Flow Rate (L/min): n/a Physical Exam Vitals and nursing note reviewed. Constitutional: General: He is not in acute distress. Appearance: He is well-developed. He is not diaphoretic. HENT: Head: Normocephalic and atraumatic. Nose: Nose normal. Mouth/Throat: Mouth: Mucous membranes are moist. Pharynx: Oropharynx is clear. No oropharyngeal exudate. Eyes: General: Right eye: No discharge. Left eye: No discharge. Conjunctiva/sclera: Conjunctivae normal. Pupils: Pupils are equal, round, and reactive to light. Cardiovascular: Rate and Rhythm: Normal rate and regular rhythm. Heart sounds: Normal heart sounds. No murmur heard. Comments: Questionable midsystolic click on exam. Pulmonary: Effort: Pulmonary effort is normal. No respiratory distress. Breath sounds: Normal breath sounds. No wheezing or rales. Musculoskeletal: Legs: Skin: General: Skin is warm and dry. Findings: Wound present. No rash. Comments: There are numerous scabs and wounds to the patient's extremities. There is diffuse erythema, swelling and tenderness to palpation to the bilateral dorsal hands. Please see attached photo. Neurological: Mental Status: He is alert and oriented to person, place, and time. DDx sepsis, abscess, cellulitis, endocarditis, ED Course: I have reviewed labs and imaging, images and available reports, and they are significant for: I reviewed the EKG tracing: Rhythm: Sinus rhythm Rate: 94 Relevant findings: Normal intervals, normal axis, no acute ST elevations or depressions. XR Hand Min 3 views Bilat (Generic) Final Result 1. Marked soft tissue swelling of the bilateral hands with no soft tissue gas or radiodense foreign body. 2. No radiographic evidence of advanced osteomyelitis of either hand. 3. Well-corticated ossicles adjacent to the left small finger proximal phalanx with chronic appearing deformities of the bilateral fifth metacarpals, likely represent sequela of old trauma. 4. 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 Thank you for letting us participate in the care of this patient. If you are a health care provider and have any questions regarding this report, please contact the number below. For patients who have questions please contact the health senior care specialist that requested your imaging first. Chest PA & Lateral (Generic) Final Result No acute cardiopulmonary findings. Thank you for letting us participate in the care of this patient. If you are a health care provider and have any questions regarding this report, please contact the number below. For patients who have questions please contact the health senior care specialist that requested your imaging first. Course as of 09/30/23 1632 Shannan Sep 30, 2023 1505 Glucose Lvl(!): 200 1505 Creatinine(!): 0.71 1505 Sodium(!): 134 1505 Potassium: 4.0 1505 Anion Gap: 12 1505 Albumin: 3.2 1505 AST(!): 70 1505 ALT(!): 151 1505 Alk Phos: 81 1505 WBC: 7.7 1505 Hemoglobin(!): 13.2 1505 Platelets(!): 399 1526 With orthopedics who does not feel that they need to evaluate this patient as this is medically managed. 1536 XR Hand Min 3 views Bilat (Generic) IMPRESSION 1. Marked soft tissue swelling of the bilateral hands with no soft tissue gas or radiodense foreign body. 2. No radiographic evidence of advanced osteomyelitis of either hand. 3. Well-corticated ossicles adjacent to the left small finger proximal phalanx with chronic appearing deformities of the bilateral fifth metacarpals, likely represent sequela of old trauma. 4. 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 1536 Admitted to hospital medicine. 1630 CRP(!): 17.7 Procedures Assessment and Plan: 43 y.o. male with bacteremia. Initial evaluation patient normotensive, afebrile, nontachycardic, not hypoxic. Exam as noted above. Patient seen in outside hospital 2 days ago and diagnosed with positive blood cultures that grew Staph aureus. Patient left AMA and presents here for continued pain, feeling unwell and chest pressure. Patient without history of previous endocarditis. On exam patient has significant swelling and fluid collection to his bilateral dorsal hands. Multiple chronic wounds and healing scabs to his upper and lower extremities. Nontoxic-appearing here. Blood cultures x 3 drawn due to concern for endocarditis. Will start on ceftriaxone and vancomycin. Discussed with hand surgery who did not feel that this required hand surgery evaluation. Will admit to hospital medicine for additional workup and management. Did this case involve critical care? No The visit findings, diagnosis, and care plan were discussed with the patient. Vincent Weir PA 09/30/23 1632 * Artie Ford MD - 09/30/2023 12:34 PM EDT Telehealth [id number] Note: The following documentation is provided in my role as a TeleEmergency Physician and reflects a live audiovisual interaction. Brief HPI: Hand swelling for past week, reports blood infection found at [facility] this week. Blood cultures + for Staph Aureus, on day 2 Bactrim, states he came in today because he doesn't feel well and has chest pain. Knee is also swollen. Injects meth in hands Brief Physical Exam: Vital signs reviewed General appearance: Ill appearing but in no distress, Tests Ordered: CBC, CMP, blood cx, ECG, cardiac monitoring, CXR Preliminary testing was ordered. The patient is awaiting a bed in the Emergency Department. Artie Ford MD 09/30/23 1240 documented in this encounter Miscellaneous Notes * Care Management - Hillary Anguiano RN - 10/04/2023 1:24 PM EDT OFFICE OF CARE MANAGEMENT PROGRESS NOTE LOS: Hospital Day 3 days Chart reviewed, care reviewed with primary team and at interdisciplinary rounds. Patient continues to meet inpatient level of care related to bilateral hands, arms, left knee s/p I&D right hand abscess. Continue with IV ABX... Change to cefazolin per ID Blood culture MSSA Decision Maker: Self Functional status prior to admission: Independent Home Environment: Others in the home: roomate(s) (lives with friend Dayanara Cage). Current LivingArrangements: home/apartment/condo. Accessibility Concerns: No accessibility concerns. Current Functional Ability: Independent DME used at home: none DME Needed at Discharge: No Patient is insured through: Primary Insurance: [place] Pay[place] / Plan: [place] / Product Type: *No Product type* / Secondary Insurance: N/A Plan for discharge is: Pending Hospital Course and PT/OT Recommendations Outpatient Agency/Support Group Needs: Substance abuse treatment Agency Referrals: TBD- home services/NE Transportation: family or friend will provide Barriers to discharge: Denies needs/concerns at this time Plan going forward: Pending clinical course. ID folllowing. Consult with hand surgery and Wound team. Care Management will continue to follow and assist with discharge planning and coordination of care as indicated. Anticipated Date of Discharge: 10/04/2023 BESSY Molina, RN, CM * Consult Note - Clarissa Jaimes - 10/04/2023 11:30 AM EDT BIT Evaluation Referral source: Follow up Reason for referral: Recovery support Relevant history: arrived with ID HEMA Patrick to find Marcos sitting up in bed. Kenn had some questions about how soon he would be able to go home. HEMA Patrick talked with him about the [facility] program, and asked some clarifying questions. Marcos thanked RC and RS for the information. RC will continue to follow while he is inpatient Interventions delivered: Other: Peer Support Plan: RC will continue to follow patient for duration of admission. RC will continue to be available to patient via phone after DC. Outstanding Discharge Needs: At time of discharge patient may require a buprenorphine script to bridge to outpatient MAT appointment, please page Psychiatry at [phone] if you need assistance with this. Time spent with the patient (min):15 minutes Time spent on case coordination (min): 15 minutes * Plan of Care - Parmjit Allen RN - 10/03/2023 11:55 PM EDT OUTCOME EVALUATION NOTE: OUTCOME SUMMARY: Pt calm and cooperative; a+ox4; VS as charted, on RA. C/O having new pain on left arm, MD made aware. Toradol IV prn given w/ well relief, later pain improved, pt able to sleep between care. Abx given per SEP. PLAN MOVING FORWARD: - Pain management - Monitor v/s - Abx - D/C planning INDIVIDUALIZED FALL PREVENTION INTERVENTIONS: Patient-specific fall risk factors per assessment: [current deficits]: Unfamiliar environment, generalized weakness, pain Assistance [level of assistance required for transfers and ambulation]: IND Supervision [direct monitoring required during toileting and ADLs]: IND Surveillance [continuous indirect monitoring]: Purposeful rounding, call light in reach, room near nurses station, bed alarm, masimo Patient-specific fall prevention interventions for sensory deficits provided, if applicable: n/a CPG GOAL OUTCOME EVALUATION: Problem: Adult Inpatient Plan of Care Goal: [...] Outcome: Ongoing (Interventions Implemented as Appropriate) Problem: Impaired Wound Healing Goal: Optimal Wound Healing Outcome: Ongoing (Interventions Implemented as Appropriate) Problem: Infection Goal: Absence of Infection Signs and Symptoms Outcome: Ongoing (Interventions Implemented as Appropriate) Problem: Pain Acute Goal: Acceptable Pain Control and Functional Ability Outcome: Ongoing (Interventions Implemented as Appropriate) Problem: Skin Injury Risk Increased Goal: Skin Health and Integrity Outcome: Ongoing (Interventions Implemented as Appropriate) * Plan of Care - Lubna Escalante RN - 10/03/2023 2:30 PM EDT OUTCOME EVALUATION NOTE: OUTCOME SUMMARY: No acute events. VSS. Pt A+Ox4. Pt reports swelling in hands has improved, continues to have numbness in both hands. IV abx continued. Will continue to monitor. PLAN MOVING FORWARD: IV abx DC planning INDIVIDUALIZED FALL PREVENTION INTERVENTIONS: Patient-specific fall risk factors per assessment: [current deficits]: Tingling in feet, hospital environment Assistance [level of assistance required for transfers and ambulation]: Ind Supervision [direct monitoring required during toileting and ADLs]: Ind Surveillance [continuous indirect monitoring]: Purposeful rounding Patient-specific fall prevention interventions for sensory deficits provided, if applicable: NA CPG GOAL OUTCOME EVALUATION: Problem: Adult Inpatient Plan of Care Goal: Plan of Care Review Outcome: Ongoing (Interventions Implemented as Appropriate) Goal: Patient-Specific Goal (Individualized) Outcome: Ongoing (Interventions Implemented as Appropriate) Goal: Absence of Hospital-Acquired Illness or Injury Outcome: Ongoing (Interventions Implemented as Appropriate) Goal: Optimal Comfort and Wellbeing Outcome: Ongoing (Interventions Implemented as Appropriate) Goal: Readiness for Transition of Care Outcome: Ongoing (Interventions Implemented as Appropriate) * Consult Note - Ethan Avila RPH - 10/03/2023 1:15 PM EDT The pharmacist-managed vancomycin consult service will sign-off and vancomycin therapy, if it is yadi continued, must be ordered by the responsible prescriber. Pharmacists??? therapeutic drug monitoring will continue for patients receiving vancomycin. Should specific assistance be needed regarding re-initation or continuation of vancomycin therapy, please page the care area pharmacist with any questions you may have. Alternately, during off-hours you may call [phone] to contact a pharmacist. * Consult Note - Maira Pan [facility] - 10/03/2023 8:44 AM EDT Formerly [facility] Pharmacokinetics Note Drug: Vancomycin Pharmacokinetic target: AUC24 (range) 400-600 mg/L.hr Current regimen: 1250 mg IV every 8 hours Marcos Camejo is a(n) 43 year old male receiving Vancomycin 1250 mg IV every 8 hours for MSSA bacteremia, bilateral hand cellulitis s/p R hand abscess I&D Recent measured serum creatinine values: 10/03/2023 05:59 0.69 mg/dL 10/02/2023 11:17 0.73 mg/dL 10/01/2023 09:21 0.71 mg/dL Assessment: Analysis of the most recent level(s) using [employer] [place] [employer] gives the following patient-specific pharmacokinetic parameters: CL: 7.35 L/hr V: 45.3 L T1/2: 4.78 hours Using these values, the current regimen of Vancomycin 1250 mg IV every 8 hours is predicted to result in a steady-state trough of 13.1 mg/L and AUC24 of 510 mg/L.hr. Recommendations: - Vancomycin 1250 mg IV every 8 hours - Obtain Vancomycin level Wednesday AM (pharmacy to order) - Continue to monitor serum creatinine Maria Pan * Plan of Care - Sakina Knowles RN - 10/03/2023 3:12 AM EDT OUTCOME EVALUATION NOTE: OUTCOME SUMMARY: AOx4, VS as charted on RA. Prn acetaminophen and prn ibuprofen given for bilateral hand and left knee pain 02/25 now 5/10 this am. Patient got new PIV last evening. AM labs successfully drawn by phlebotomy. No acute events. Care ongoing. PLAN MOVING FORWARD: Wound care Monitor infection Safe dc planning INDIVIDUALIZED FALL PREVENTION INTERVENTIONS: Patient-specific fall risk factors per assessment: [current deficits]: hosp env, lines/drains Assistance [level of assistance required for transfers and ambulation]: ind Supervision [direct monitoring required during toileting and ADLs]: ind Surveillance [continuous indirect monitoring]: purposeful rounding, call light within reach Patient-specific fall prevention interventions for sensory deficits provided, if applicable: As above CARE PLAN GOAL OUTCOME EVALUATION: Continue goals of care Problem: Adult Inpatient Plan of Care Goal: [...] Outcome: Ongoing (Interventions Implemented as Appropriate) Problem: Impaired Wound Healing Goal: Optimal Wound Healing Outcome: Ongoing (Interventions Implemented as Appropriate) Problem: Infection Goal: Absence of Infection Signs and Symptoms Outcome: Ongoing (Interventions Implemented as Appropriate) Problem: Pain Acute Goal: Acceptable Pain Control and Functional Ability Outcome: Ongoing (Interventions Implemented as Appropriate) Problem: Skin Injury Risk Increased Goal: Skin Health and Integrity Outcome: Ongoing (Interventions Implemented as Appropriate) * Plan of Care - Waleska Cline RN - 10/02/2023 6:24 PM EDT OUTCOME EVALUATION NOTE: OUTCOME SUMMARY: AOx4, VSS on RA. Cooperative and calm, ind to bathroom. Continent of bowel and bladder. Scheduled abx given. RUE dressing changed today per order set, normal saline used to cleanse wound. Tylenol given before wound care with little effect. No acute events, care ongoing. PLAN MOVING FORWARD: Wound care Monitor infection Safe dc planning INDIVIDUALIZED FALL PREVENTION INTERVENTIONS: Patient-specific fall risk factors per assessment: [current deficits]: hosp env, lines/drains Assistance [level of assistance required for transfers and ambulation]: ind Supervision [direct monitoring required during toileting and ADLs]: ind Surveillance [continuous indirect monitoring]: purposeful rounding, call light within reach Patient-specific fall prevention interventions for sensory deficits provided, if applicable: [X] N/A CARE PLAN GOAL OUTCOME EVALUATION: Problem: Adult Inpatient Plan of Care Goal: Plan of Care Review Outcome: Ongoing (Interventions Implemented as Appropriate) Goal: Patient-Specific Goal (Individualized) Outcome: Ongoing (Interventions Implemented as Appropriate) Goal: Absence of Hospital-Acquired Illness or Injury Outcome: Ongoing (Interventions Implemented as Appropriate) Goal: Optimal Comfort and Wellbeing Outcome: Ongoing (Interventions Implemented as Appropriate) Goal: Readiness for Transition of Care Outcome: Ongoing (Interventions Implemented as Appropriate) * Consult Note - Maira Pan RPH - 10/02/2023 12:58 PM EDT [facility] Pharmacokinetics Note Drug: Vancomycin Pharmacokinetic target: AUC24 (range) 400-600 mg/L.hr Current regimen: 1500 mg IV every 12 hours Marcos Camejo is a(n) 43 years old male receiving Vancomycin 1500 mg IV every 12 hours for MSSA bacteremia, bilateral hand cellulitis s/p R hand abscess I&D Recent measured serum creatinine values: 10/02/2023 11:17 0.73 mg/dL 10/01/2023 09:21 0.71 mg/dL 09/30/2023 13:10 0.71 mg/dL Assessment: Analysis of the most recent level(s) using [employer] gives the following patient-specific pharmacokinetic parameters: CL: 7.48 L/hr V: 40 L T1/2: 4.74 hours Using these values, the current regimen of Vancomycin 1500 mg IV every 12 hours is predicted to result in a steady-state trough of 8 mg/L and AUC24 of 401 mg/L.hr. At this time we recommend a regimenof 1250 mg IV every 8 hours, which is predicted to result in a steady-state trough of 12.3 mg/L [id number] of 501 mg/L.hr. Recommendations: - Vancomycin 1250 mg IV every 8 hours - Obtain Vancomycin level tomorrow with AM labs (ordered) - Continue to monitor serum creatinine Maira Pan * Plan of Care - Romario Parra RN - 10/02/2023 7:17 AM EDT OUTCOME EVALUATION NOTE: OUTCOME SUMMARY: Pt AOx4. VSS on RA. IV abx infused per SEP. Drx to R hand still CDI. Pt c/o 5/10 pain, prn tylenol given x1 with great effects. Pt ind in room. No other complaints at this time. PLAN MOVING FORWARD: Pain management Wound care IV abx INDIVIDUALIZED FALL PREVENTION INTERVENTIONS: Patient-specific fall risk factors per assessment: [current deficits]: hospital environment, lines/tubings Assistance [level of assistance required for transfers and ambulation]: ind Supervision [direct monitoring required during toileting and ADLs]: ind Surveillance [continuous indirect monitoring]: masimo, purposeful rounding, room near nrsg station Patient-specific fall prevention interventions for sensory deficits provided, if applicable: [X] N/A CARE PLAN GOAL OUTCOME EVALUATION: Problem: Adult Inpatient Plan of Care Goal: Plan of Care Review Outcome: Ongoing (Interventions Implemented as Appropriate) Goal: Patient-Specific Goal (Individualized) Outcome: Ongoing (Interventions Implemented as Appropriate) Goal: Absence of Hospital-Acquired Illness or Injury Outcome: Ongoing (Interventions Implemented as Appropriate) Goal: Optimal Comfort and Wellbeing Outcome: Ongoing (Interventions Implemented as Appropriate) Goal: Readiness for Transition of Care Outcome: Ongoing (Interventions Implemented as Appropriate) * Plan of Care - Waleska Cline RN - 10/01/2023 6:38 PM EDT OUTCOME EVALUATION NOTE: OUTCOME SUMMARY: AOx4, VSS on RA. Cooperative and calm, ind to bathroom. Continent of bowel and bladder. No c/o of pain or discomfort. Scheduled abx given. Ortho changed RUE bandage at bedside today. No acute events,care ongoing. PLAN MOVING FORWARD: Wound care Monitor infection Safe dc planning INDIVIDUALIZED FALL PREVENTION INTERVENTIONS: Patient-specific fall risk factors per assessment: [current deficits]: hosp env, lines/drains Assistance [level of assistance required for transfers and ambulation]: ind Supervision [direct monitoring required during toileting and ADLs]: ind Surveillance [continuous indirect monitoring]: purposeful rounding, call light within reach Patient-specific fall prevention interventions for sensory deficits provided, if applicable: [X] N/A CARE PLAN GOAL OUTCOME EVALUATION: Problem: Adult Inpatient Plan of Care Goal: Plan of Care Review 10/01/2023 1838 by Waleska Cline RN Outcome: Ongoing (Interventions Implemented as Appropriate) 10/01/20231836 by Waleska Cline RN Outcome: Ongoing (Interventions Implemented as Appropriate) Goal: Patient-Specific Goal (Individualized) 10/01/20231837 by Waleska Cline RN Outcome: Ongoing (Interventions Implemented as Appropriate) 10/01/20231836 by Waleska Cline RN Outcome: Ongoing (Interventions Implemented as Appropriate) Goal: Absence of Hospital-Acquired Illness or Injury 10/01/20231837 by Waleska Cline RN Outcome: Ongoing (Interventions Implemented as Appropriate) 10/01/20231836 by Waleska Cline RN Outcome: Ongoing (Interventions Implemented as Appropriate) Goal: Optimal Comfort and Wellbeing 10/01/20231837 by Waleska Cline RN Outcome: Ongoing (Interventions Implemented as Appropriate) 10/01/20231836 by Waleska Cline RN Outcome: Ongoing (Interventions Implemented as Appropriate) Goal: Readiness for Transition of Care 10/01/20231837 by Waleska Cline RN Outcome: Ongoing (Interventions Implemented as Appropriate) 10/01/20231836 by Waleska Cline RN Outcome: Ongoing (Interventions Implemented as Appropriate) * Consult Note - Clarissa Jaimes - 10/01/2023 12:45 PM EDT BIT Evaluation Referral source: Admission screening Reason for referral: Recovery support Relevant history: Marcos was sitting up in bed when RC arrived. He was open to support while inpatient. He tells that he has been in Recovery for over a year, and the recent return to use was a mistake and the cause of convenience my friend had it, and we used it. He feels stable on Suboxone, and feels well supported but [facility]. He has permanent housing and has one roommate who doesn't use any drugs. He is not looking to add any additional resources at this time, but was open to retuningon Wednesday. Interventions delivered: Other: Peer Support Plan: RC will continue to follow patient for duration of admission. RC will continue to be available to patient via phone after DC. Outstanding Discharge Needs: At time of discharge patient may require a buprenorphine script to bridge to outpatient MAT appointment, please page Psychiatry at [phone] if you need assistance with this. Time spent with the patient (min):15 minutes Time spent on case coordination (min): 15 minutes * Care Management - Radha Mcfarlane MSW - 10/01/2023 12:24 PM EDT Social Work Response to Consult Consult: Nursing consult to Social Work Ordered at: 09/30/232033 Reason for Consult: Substance / alcohol abuse Social Work Response: Met with pt to complete initial assessment and address social work consult. Pt currently on Suboxone; declines additional substance abuse treatment resources. Follow Up Needed: Pt aware that [facility] [employer] is available to assist should additional needs or concerns arise. WAN Crespo, [facility] Director Of Business Services Office of Care Management Pager #[phone] * Initial Assessments - Radha Mcfarlane MSW - 10/01/2023 12:10 PM EDT Office of Care Management Initial Assessment WAN Wong reviewed record and discussed patient with Care Team. Source of Information: Team, bedside nurse, medical record, and Patient Introduced self/reviewed role; services accepted. Admitted From: Home Reason for Hospitalization: staph infection of hand Covid Vaccination Status: 1st, 2nd & booster Last COVID test: Past medical History: No past medical history on file. Hospitalizations Within the Past 30 Days: no previous admission in last 30 days Current Decision-Making Capacity: Self If AD's have not been completed the following surrogate would be surrogate decision maker per [place] decision making law. (Only good for 180 days): Dayanara Cage Any patient receiving care in [place] must abide by [place] law. The hierarchy for surrogate decision making [...] (h) A close friend of the patient. (i) The agent with financial power of transactional attorney or a conservator appointed in accordance with RSA 464-A. (j) The guardian of the patient???s estate. Advance Care Planning: Attempt Cardiopulmonary Resuscitation - Inpatient <no information> -Advanced Directive: No, declines Current Coping/Education/Information Needs: Pt is able to make needs known Current Functional Ability: Independent Functional Status Prior to Admission: Independent Prior ADLs & IADLs: Independent with all ADLs & IADLs Home Environment: Others in the home: roomate(s) (lives with friend Dayanara Cage). Current LivingArrangements: home/apartment/condo. Accessibility Concerns:No accessibility concerns. In the last 12 months, was there [...] In the past 12 months has the [employer], gas, oil, or water [employer] threatened to shut off services in your home?: No Within the past 12 months, you worried that your food would run out before you got the money to buymore.: Never true Within the past 12 months, the food you bought just didn't last and you didn't have money to get more.: Never true Resource / Environmental Concerns: Resource/Environmental Concerns: none Home Accessibility Concerns: (no concerns) In the past 12 months, has lack of transportation kept you from medical appointments or from getting medications?: No In the past 12 months, has lack of transportation kept you from meetings, work, or from getting things needed for daily living?: No Current DME: none Home Address confirmed as: [address] [place] [phone] Social & Family Supports: All names listed below confirmed with patient as current and correct Extended Emergency Contact Information Primary Emergency Contact: Dayanara Cage Address: [address] [place] [phone] [facility] Relation: Friend Current Care Provided by: self Provides Primary Care For: no one Caregiver if needed: none Quality of Family relationships: unable to assess Community Resources being provided currently: outpatient substance abuse treatment (Suboxone from [facility]) Behavioral Health History: Hx of IVDU (meth and opiates) and OUD (on suboxone). Last used IV meth 7days ago. Substance Use/Abuse confirmed: Social History Tobacco Use Smoking Status Every Day Packs/day: 1 Types: Cigarettes Smokeless Tobacco Never In the past year have you used an illegal drug or used a prescription medication for non-medical reasons?: Yes DAST Score: 3 0 No problems reported 1-2 Low level 3-5 Moderate level 6-8 Substantial level 9- 10 Severe level In the past year have you had 5 or more drinks a day containing alcohol?: No 0 to 7 points: Low risk 8 to 15 points: Medium risk 16 to 19 points: High risk 20 to 40 points: Addiction likely Other Pertinent/Service Specific Information: Pt takes 12mg Suboxone 2x daily; prescriber is [facility] [facility]/Prescription Coverage: Primary Insurance: [place] Pay[place] / Plan[place] / Product Type: *No Product type* / Secondary Insurance: N/A ; Prescription Coverage: [id number] AT [facility] & [address] [id number] Status: Patient is a : No Primary Care Provider confirmed: Milo Baer MD [phone] Patient/Caregiver Goals of Treatment: Recover and return home Potential Needs for Transition of Care: other (see comments) (Pending hospital course; pt declines substance abuse tx resources) Agency Referrals: Not Applicable Transportation: no concerns (pt has car, drives) Transportation Anticipated: family or friend will provide Concerns to be Addressed: substance/tobacco abuse/use Assessment: Patient is admitted to medicine service for bacteremia d/t staphylococcus aureus Per H&P, Marcos Camejo is a 43 y.o. male with PMHx of IVDU (methamphetamine, opiates), OUD (on Suboxone), who [place] [facility] with concern for staph bacteremia, multiple wounds over his bilateral hands, arms, left knee. Patient reports that he last used IV methamphetamine 7 days ago. He notes that it must have been rené batch. Reports after using that he had onset of feet pain and hand pain that developed into infected skin wounds. He presented to [facility] on 09/25. At [facility] he had blood cultures drawn, 1 out of 2 bottles growing MSSA. He was treated with 1 dose of vancomycin and recommended admission to the hospital, but he decided to leave [facility] so he was discharged home on TMP-SMX. He re-presented 2 days later with worsened swelling, labs showing an elevated lactate, leukocytosis. Ortho saw patient at [facility] and recommended transfer to , however there were no beds available so patient left again. Patient reports that since going home he has had ongoing pain in his hands and left knee and subsequently represented to [facility] for further evaluation. Pt denies outstanding psychosocial needs and declines additional substance abuse treatment resources. BIT will likely meet with pt given pt's DAST of 3. Plan: Pt is aware that [facility] [employer] and Care Management team are available to assist should needs or concerns arise. A member of the Care Management team will continue to monitor progress, follow for continuity of care and assist with transition of care planning. WAN Crespo, [facility] Director Of Business Services Office of Care Management Pager #[phone] * Consult Note - Daniel Mason MD - 10/01/2023 9:55 AM EDT Images from the original note were not included. INFECTIOUS DISEASE CONSULTATION NOTE Reason for Consult: MSSA bacteremia, R hand abscess, L hand cellulitis Consulting Service: Hospital Medicine Consulting Attending: Joe Wells MD Admission Date: 09/30/2023 History of Present Illness: Pt is a 43 y.o. male with a history of polysubstance abuse, last injection 1 week ago (meth). He does not share needles nor does he reuse needles. Pt denied injecting into his hand, denies picking atskin or trauma. Pt noticed both his hands were swollen and painful ~1 week ago. He also noticed scabs erupting all over his body around the same time. He denied fevers or chills, abd pain, diarrhea, dysuria. [facility] [facility] and had Bcx taken which were 1/2 + for MSSA, received IV vanco and was recommended admission but left. He was rx'ed Bactrim which he took BID - thinks this helped some, but due to worsening b/l hand pain he presented to our ER 09/29. He was afebrile with normal WBC, andCT showed an abscess in R hand which was I&D'ed by Ortho at bedside. Cultures from this showingGPC. He has been receiving IV vanco. We are consulted for further recommendations. Pt denies indwelling intravascular devices, foreign body or prosthetic joints. He has dogs at home who are healthy and does not recall bites/scratches. He does not garden, stack wood, and had no significant soil or environmental exposure. Review of Systems: Pertinent positives and negatives noted in HPI. 14 point ROS otherwise negative PMH/PSH: as above, and ADHD Bipolar Asthma PTSD Antimicrobial/Pertinent medications: IV vanco (09/29-) IV ceftriaxone (09/29) Allergies/Adverse drug reactions: Allergies Allergen Reactions Penicillins Hives Tolerated ceftriaxone 09/2023 Family History: Noncontributory Social History: Social History Socioeconomic History Marital status: Spouse [...] Never true Transportation Needs: No Transportation Needs (10/01/2023) PRAPARE - Transportation Lack of Transportation (Medical): No Lack of Transportation (Non-Medical): No Physical Activity: Not on file Intimate Partner Violence: Not At Risk (09/30/2023) IPV Inpatient Questions Prevent Contact with Others: no Feels Threatened by Someone: no Feels Unsafe at Home: no Physical Signs of Abuse Present: no Housing Stability: Low Risk (10/01/2023) Housing Stability Vital Sign Unable to Pay for Housing in the Last Year: No Number of Places Lived in the Last Year: 1 Unstable Housing in the Last Year: No Physical Exam: Last value Range last 24 hrs Temperature Temp: 36.9 ??C (98.4 ??F) Temp: [36.9 ??C (98.4 ??F)-37.4 ??C (99.3 ??F)] Heart Rate Heart Rate: 93 Heart Rate: [86-97] Blood Pressure BP: 122/67 BP: (118-149)/(63-88) Respiratory Rate Resp: 18 Resp: [15-22] SpO2 SpO2: 97 % SpO2: [96 %-99 %] General: NAD Head: NCAT EENT: No conjunctival petechiae Neck: No LAD Cardiovascular: RRR no murmurs Pulmonary: Lungs CTAB easy WOB Abdomen: Soft, NT/ND Ext: Nodular lump on b/l forearm below ebows b/l. ROM intact b/l elbows, wrists. No rash on palms/soles of feet R hand dressed, almost able to form a full fist L hand with erythema and swelling, less able to form a fist Skin: Numerous scabs on scalp, b/l hands, b/l LLE and feet. Neuro: A&O, moves all 4 Psych: Calm, cooperative I have reviewed the pertinent laboratory, Micro, and radiology/procedure results, including: Recent Labs 10/01/23 0921 09/30/23 1310 WBC 7.6 7.7 HGB 11.7* 13.2* HCT 33.9* 39.0* PLATELET 382* 399* Recent Labs 10/01/23 0921 09/30/23 1310 NA 132* 134* K 4.1 4.0 CL 100 100 CO2 24 22 BUN 11 12 CREATININE 0.71* 0.71* Recent Labs 09/30/23 1310 AST 70* ALT 151* ALKPHOS 81 BILITOT 0.2 09/29 ESR: 85 09/25 Bcx x2: 1/2+ MSSA 09/27 Bcx x2: NGTD 09/29 Bcx x3: in process 09/29 abscess/wound culture (R hand): GPC 09/30 Bcx x1: in process Outside Micro 07/15/23 HIV negative HAV total antibody positive HBV surface Ag negative HBV surface Ab positive HBV core Ab positive 09/21/22 HCB Core Ab negative 09/30 CT hand w RIGHT IMPRESSION 1. Multiloculated fluid collection along the dorsal and medial aspect of the hand measuring approximately 6.5 x 1.5 x 5.6 cm in size suspicious for abscess. 2. Small amount of tenosynovial fluid tracking proximally from the abscess along the extensor digiti minimi tendon sheath proximal to the wrist joint suspicious for septic tenosynovitis. 3. No appreciable joint effusions or CT evidence of osteomyelitis. 09/30 CT hand w/ L IMPRESSION 1. Small third MCP joint effusion and equivocal minimal third MCP joint space narrowing. Findings are concerning for potential third MCP joint sepsis. No CT evidence of osteomyelitis. 2. Dorsal subcutaneous edema and skin thickening. Correlate with cellulitis on physical exam. 3. No loculated fluid collection/abscess. 4. No tracking soft tissue gas. 09/30 TTE Interpretation Summary LV is mildly dilated. Wall thickness is normal. Left ventricular systolic function is normal. The left ventricular ejection fraction is 64% by 3D volumetric assessment. There are no segmental wall motion abnormalities. The right ventricle is of normal size. Right ventricular systolic function is normal. Estimated RVSP is 40 mmHg. The left atrium is moderately dilated. There is no hemodynamically significant valve disease. No prior study available for comparison. Impression: Marcos Camejo is a 43 y.o. male with a history of IVDU who developed b/l hand pain ~ 1 week ago, seen at OSH ER 09/25 with + Bcx with MSSA who left AMA after IV vanco. He was rx'ed TMP-SMX which he has been taking, but had worsening b/l hands and admitted 09/29 for b/l hand cellulitis and R hand abscess s/p bedside drainage 09/29. Suspect entry source is skin, pt reports h/o scab-like rash erupting all over his extremities and scalp ~ 1 week ago. Some nodular lumps below elbows b/l noted, as well as erythema of L knee. On imaging there was concern for early R extensor tenosynovitis. Given thatBcx on this admission are NGTD, we recommend holding off on MARIBEL for now. Suspect skin source SSTI leading to bacteremia, not the other way around. We recommend continuing IV vanco for now until we have susceptibility testing result from R hand abscess culture. Given h/o IVDU, also recommend screening for blood-borne pathogens. He had protectiveAb vs HBV in 06/2023 (OSH) so should be protected vs HBV, so can check for HIV and HCV. 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 No other obvious metastatic source of foci that can be drained, but recommend closely monitoring nodular lumps below elbows and L knee. Recommendations: - continue IV vanco, AUC 400-600 - HIV screen, HCV antibody - syphilis test - while on IV abx, weekly CBC w diff, CMP - final abx regimen TBD Patient discussed with ID attending Dr. Ruiz. Recommendations discussed with primary treating team. ID consult service will continue to follow. Please page ID Red team (pager [phone]) with questions or concerns. Daniel Mason MD 10/01/2023 5:13 PM Associated attestation - Kyleigh Ruiz MD - 10/02/2023 1:55 PM EDT Images from the original note were not included. Date of service: 10/01/23 Date of documentation 10/02/23 ID Attending I have seen and examined the patient and reviewed the fellow's above history, and I agree with the details as written. The assessment and plan were formulated in discussion with me, and I agree with them as documented. DATA REVIEW Category 1: I have reviewed Labs: CBC Lab Results Component Value Date WBC 7.7 10/02/2023 Hemoglobin 12.5 (L) 10/02/2023 Hematocrit 37.7 (L) 10/02/2023 Platelets 418 (H) 10/02/2023 Micro: Microbiology Results (last 7 days) Procedure Component Value - Date/Time Abscess/Wound Aspirate Culture Abscess; Hand, Right [[id number]] (Abnormal) Collected: 09/30/231899 Lab Status: Preliminary result Specimen: Abscess from Hand, Right Updated: 10/02/23 0957 Abscess/Wound Aspirate Culture Few Staphylococcus aureus Gram Stain -- Many Neutrophils seen Rare Gram Positive Cocci seen Organism Staphylococcus aureus Gram Positive Cocci Abscess/Wound Aspirate Culture Abscess; Hand, Right [[id number]] (Abnormal) Collected: 09/30/23 190 Lab Status: Preliminary result Specimen: Abscess from Hand, Right Updated: 10/02/23 0955 Abscess/Wound Aspirate Culture Few Staphylococcus aureus Gram Stain -- Many Neutrophils seen Few Gram Positive Cocci seen Organism Staphylococcus aureus Gram Positive Cocci Blood culture [[id number]] Collected: 09/30/23 1502 Lab Status: Preliminary result Specimen: Blood Updated: 10/01/23 2302 Blood Culture No growth at 1 day. Blood culture [[id number]] Collected: 09/30/23 1310 Lab Status: Preliminary result Specimen: Blood from Antecubital, Left Updated: 10/01/23 1501 Blood Culture No growth at 1 day. Blood culture [[id number]] Collected: 09/30/23 1310 Lab Status: Preliminary result Specimen: Blood from Antecubital, Right Updated: 10/01/23 1501 Blood Culture No growth at 1 day. EKG/echo: TTE negative for valve vegetations Imagin. Multiloculated fluid collection along the dorsal and medial aspect of the hand measuring approximately 6.5 x 1.5 x 5.6 cm in size suspicious for abscess. 2. Small amount of tenosynovial fluid tracking proximally from the abscess along the extensor digiti minimi tendon sheath proximal to the wrist joint suspicious for septic tenosynovitis. 3. No appreciable joint effusions or CT evidence of osteomyelitis. 09/30 CT hand w/ L IMPRESSION 1. Small third MCP joint effusion and equivocal minimal third MCP joint space narrowing. Findings are concerning for potential third MCP joint sepsis. No CT evidence of osteomyelitis. 2. Dorsal subcutaneous edema and skin thickening. Correlate with cellulitis on physical exam. 3. No loculated fluid collection/abscess. 4. No tracking soft tissue gas. External records in - Epic: reviewed - CareEverywhere: na - Paper records: na Category 3: The ID consult team discussed the management of this patient with and relayed our recommendations to primary team. HIGH RISK PROBLEM: Acute or chronic illness or injury that poses a threat to life or bodily function (MSSA bacteremia, R hand abscess, L hand cellulitis , concern for tenosynovitis) HIGH RISK MANAGEMENT OPTION: Drug therapy requiring intensive monitoring for toxicity (IV VANCOMYCIN UNTIL SUSCEPTIBILITY OF S. Aureus from hand can be determined - monitoring drug levels for toxicity, monitoring weekly CBC with differential and CMP) Additional comments: if follow up blood cultures remain negative, will not request MARIBEL. Would advocate for a 3 week course of treatment due to possible tenosynovitis. @[facility]@ * Plan of Care - Romario Parra RN - 10/01/2023 6:59 AM EDT OUTCOME EVALUATION NOTE: OUTCOME SUMMARY: Pt AOx4, pleasant and cooperative. VSS on RA. IV abx infused per SEP. Drx to R hand CDI. TTE done this early am. No other complaints at this time. PLAN MOVING FORWARD: Pain management Wound care IV abx INDIVIDUALIZED FALL PREVENTION INTERVENTIONS: Patient-specific fall risk factors per assessment: [current deficits]: hospital environment, lines/tubings Assistance [level of assistance required for transfers and ambulation]: ind Supervision [direct monitoring required during toileting and ADLs]: ind Surveillance [continuous indirect monitoring]: masimo, purposeful rounding, room near nrsg station Patient-specific fall prevention interventions for sensory deficits provided, if applicable: [X] N/A CARE PLAN GOAL OUTCOME EVALUATION: Problem: Adult Inpatient Plan of Care Goal: Plan of Care Review Outcome: Ongoing (Interventions Implemented as Appropriate) Goal: Patient-Specific Goal (Individualized) Outcome: Ongoing (Interventions Implemented as Appropriate) Goal: Absence of Hospital-Acquired Illness or Injury Outcome: Ongoing (Interventions Implemented as Appropriate) Goal: Optimal Comfort and Wellbeing Outcome: Ongoing (Interventions Implemented as Appropriate) Goal: Readiness for Transition of Care Outcome: Ongoing (Interventions Implemented as Appropriate) * Consult Note - Hari Capellan MD - 09/30/2023 5:05 PM EDT Images from the original note were not included. Orthopaedic Surgery Hand Consult Note Attending: Dr. Arceo We are seeing Marcos Camejo hx opioid use at the request of Eugene Hidalgo MD of b/l soft tissue swelling in the hands Chief Complaint: b/I hand swelling, predominantly dorsal sided History of Present Illness: Marcos Camejo is a 43 y.o. RHD male w 1 wk b/l hand soft tissue swelling in the context IVDU (meth) injection to the R forearm, S. Aureus bacteremia at diagnosed at OSH 2 days ago. Denies injection to his hands. He received limited doses of IV vancomycin before [facility]. Continue on Bactrim after leaving OSH. Presents to the ED for further evaluation given failure of symptoms to resolve concern given worsening condition of a friend who used meth at the same time now with similar presentation. Denies recent fevers, chills, N/V, SUH. Describes his swelling to be somewhat improved once weeping from the L hand began 1-2 days prior. Denies swelling elsewhere, joint pain proximal to his hands pradeep his lower extremities. He has been started on Vancomycin therapy since his admission. Past Medical History: Patient Active Problem List Diagnosis Code Bacteremia due to Staphylococcus aureus R78.81, B95.61 Past Surgical History: No past surgical history on file. Allergies Allergen Reactions Penicillins CIS - Hives No current facility-administered medications on file prior to encounter. Current Outpatient Medications on File Prior to Encounter Medication Sig Dispense Refill albendazole (Albenza) 200 mg tablet 400 mg. OXYcodone 10 mg Tab divalproex (DEPAKOTE) 250 mg EC tablet Review of Systems: As per HPI, otherwise negative Objective: Temp: [36.9 ??C (98.4 ??F)] Heart Rate: [83-99] Resp: [12-20] BP: (114-143)/(55-90) SpO2: [97 %-100 %] Heart Rate from SpO2: [89 bpm] Physical Exam General: awake/alert, responds to questions HEENT: normocephalic, atraumatic CVS: regular rate, no m/r/g Pulm: non-labored breathing, CTAB Skin: Intact Psych: Normal mood and affect B/l Upper Extremity Exam: Diffuse scabbing to bilateral upper extremities No effusion in shoulder / elbow / wrist No TTP clavicles, shoulders, humerus, elbows, forearms Painless range of motion of shoulder / elbow / wrist / fingers Sensation intact to light touch in Ax/M/R/U/LABC distributions Motor intact shoulder abduction and forward flexion, elbow flexion/extension Brisk capillary refill distally 2+ radial pulse Right hand Diffuse swelling and scabbing in the hand, dorsal predominant No fusiform swelling of the digits. 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 No focal fluid collection. indicative of abscess. No gas. No bony destruction. Procedure: Abscess bedside I&D: Right hand was washed with Betadine soaked gauze. Sterile field was created using blue towels. 10 cc 1% lidocaine mixed with 2 cc 0.25% bupivacaine was injected as a regional block surrounding the right hand dorsal abscess, as well as into the abscess proper. Anapproximately 1 cm incision was made in the center of the abscess. 2 culture swabs were inserted into the abscess and sent promptly. A hemostat was inserted into the abscess and spread in all directions to break up loculations. 500 cc ofsterile normal saline was used to irrigate the abscess using a 35 cc sterile syringe. Half-inch iodoform was packed into the wound. 4 x 4 gauze was placed over top endoform packed wound and circumferential kerlex wrap was applied to the right hand. Patient tolerated the procedure well, no complications encountered during the abscess drained. Assessment/Plan: 43 y.o. right RHD male who presents with 1 week of persistent and progressive bilateral hand swelling, most notable along to dorsal/ulnar aspect of his right hand, with pertinent history of current IV drug use and recent OSH ED visit confirming S. aureus bacteremia. Orthopedic handsurgery was consulted for evaluation and consideration of possible surgical invention. On exam, the patient has 0/4 Kanavel signs to any of his b/l hand digits. Thus, there is low concern for pyogenic flexor tenosynovitis. CT of his right hand was ordered which demonstrated loculated abscess to the dorsal/ulnar region of the right hand. A bedside I&D was performed as described above. At this time the patient does not require surgical intervention by hand surgery. Recommend continued workup of patient's bacteremia in the context of IVDU as well as antibiotic therapy per the Medicine team - Activity: AAT with elevation of b/l UE above heart level - Dressings: iodoform packing to R hand - daily changes. - DVT prophylaxis: per primary - Antibiotics: per primary - Diet: No restrictions per orthopaedic surgery - Imaging needed: CT L Hand - Follow-up: pending course Hari Capellan MD Orthopaedic Surgery2 Pager: [phone] * ED Triage - Mary Krueger RN - 09/30/2023 12:36 PM EDT Pt was told he has a Staph infection, was given Bactrim. He comes in today with worsening pain in both hands. He has open sores on his hands that are bleeding, hands are red and swollen. L knee is also swollen. Pt notes that he is a meth user. Pt is alert and oriented x4. HPI (Adult) Stated Reason for Visit: I have a blood infection. I was at [facility] the day before yesterday History Obtained From: patient documented in this encounter Plan of Treatment Upcoming Encounters Date Type Department Care Team (Late st Contact Info) Description 08/01/2024 8:30 AM EST Office Visit Gastroenterology at [facility], [place], operated by [facility] [address] Denae Wilson MD [facility] [place] [address] documented as of this encounter Procedures Procedure Name Priority Date/Time Associated Diagnosis Comments HEMOGRAM Routine 10/04/2023 4:54 AM EDT IRON AND TIBC Routine 10/04/2023 4:54 AM EDT HEPATITIS C RNA, QUANTITATIVE, PCR Routine 10/04/2023 4:54 AM EDT LACTATE DEHYDROGENASE Routine 10/04/2023 4:54 AM EDT BASIC METABOLIC PANEL Routine 10/04/2023 4:54 AM EDT VANCOMYCIN LEVEL, RANDOM Timed 10/03/2023 5:59 AM EDT CRP, ACUTE INFLAMMATION Routine 10/03/2023 5:59 AM EDT HEMOGRAM Routine 10/03/2023 5:59 AM EDT SEDIMENTATION RATE Routine 10/03/2023 5: 59 AM EDT BASIC METABOLIC PANEL Routine 10/03/2023 5:59 AM EDT HEPATIC FUNCTION PANEL Routine 10/02/2023 12:47 PM EDT BLOOD CULTURE Routine 10/02/2023 11:30 AM EDT BLOOD CULTURE Routine 10/02/2023 11:30 AM EDT VANCOMYCIN LEVEL, RANDOM Routine 10/02/2023 11:17 AM EDT CRP, ACUTE INFLAMMATION Routine 10/02/2023 11:17 AM EDT HEMOGRAM Routine 10/02/2023 11:17 AM EDT SEDIMENTATION RATE Routine 10/02/2023 11 :17 AM EDT BASIC METABOLIC PANEL Routine 10/02/2023 11:17 AM EDT HC HEPATITIS C ANTIBODY Routine 10/01/2023 8:25 PM EDT HEPATITIS C ANTIBODY Routine 10/01/2023 8:25 PM EDT SYPHILIS ANTIBODY SCREEN WITH REFLEX Routine 10/01/2023 8:25 PM EDT HEPATITIS C RNA, QUANTITATIVE, PCR Routine 10/01/2023 8:25 PM EDT [place] SCREEN, 4TH GENERATION [place] [place] Routine 10/01/2023 8:25 PM EDT CRP, ACUTE INFLAMMATION Routine 10/01/2023 9:21 AM EDT HEMOGRAM Routine 10/01/2023 9:21 AM EDT BLOOD CULTURE STAT 10/01/2023 9:21 AM EDT SEDIMENTATION RATE Routine 10/01/2023 9: 21 AM EDT HEMOGLOBIN A1C Routine 10/01/2023 9:21 AM EDT BASIC METABOLIC PANEL Routine 10/01/2023 9:21 AM EDT ECHO COMPLETE Routine 10/01/2023 8:35 AM EDT Bacteremia due to Staphylococcus aureus CT HAND W CONTRAST LEFT STAT 09/30/2023 7:57 PM EDT ABSCESS/WOUND ASPIRATE CULTURE STAT 09/30/2023 7:00 PM EDT ABSCESS/WOUND ASPIRATE CULTURE STAT 09/30/2023 7:[address] HAND W CONTRAST RIGHT Routine 09/30/2023 5:59 PM EDT XR HAND MIN 3 VIEWS BILAT STAT 09/30/2023 3:17 PM EDT L-LACTATE2 WHOLE BLOOD Routine 09/30/2023 3:02 PM EDT BLOOD CULTURE STAT 09/30/2023 3:02 PM EDT CRP, ACUTE INFLAMMATION STAT 09/30/2023 1:10 PM EDT MENDOZA TUBE HOLD STAT 09/30/2023 1:10 PM EDT HEMOGRAM STAT 09/30/2023 1:10 PM EDT DIFFERENTIAL, AUTOMATED STAT 09/30/2023 1:10 PM EDT GOLD TUBE HOLD STAT 09/30/2023 1:10 PM EDT BLUE TUBE HOLD STAT 09/30/2023 1:10 PM EDT BLOOD CULTURE STAT 09/30/2023 1:10 PM EDT BLOOD CULTURE STAT 09/30/2023 1:10 PM EDT SEDIMENTATION RATE STAT 09/30/2023 1: 10 PM EDT CBC (WITH DIFF) STAT 09/30/2023 1:10 PM EDT COMPREHENSIVE METABOLIC PANEL STAT 09/30/2023 1:10 PM EDT XR CHEST PA AND LATERAL STAT 09/30/2023 12:48 PM EDT EKG 12-LEAD STAT 09/30/2023 12:39 PM EDT documented in this encounter Results * Iron and TIBC (10/04/2023 4:54 AM EDT) Iron 54 45 - 160 mcg/dL [facility] TIBC 254 250 - 450 mcg/dL [facility] Iron Saturation 21 20 - 50 % [facility] Blood Venous Draw / Unknown 10/04/2023 4:54 AM EDT 10/04/2023 5:39 AM EDT Narrative Resulting Agency Comment Spec In Lab Negar Obregon MD CHEMISTRY ORDERABLE S Performing Organization Address City/[facility]/ZIP Co de Phone Number [facility] [place] [address] * (ABNORMAL) Lactate Dehydrogenase (10/04/2023 4:54 AM EDT) Lactate Dehydrogenase 345(H) 110 - 220 unit/L [facility] Blood Venous Draw / Unknown 10/04/2023 4:54 AM EDT 10/04/2023 5:39 AM EDT Narrative Resulting Agency Comment Spec In Lab Negar Obregon MD CHEMISTRY ORDERABLE S Performing Organization Address City/[facility]/ZIP Co de Phone Number [facility] [place] [address] * (ABNORMAL) Basic Metabolic Panel (non-fasting) (10/04/2023 4:54 AM EDT) Glucose 122 65 - 199 mg/dL [facility] Comment:Diabetes: >=200 mg/d L plus symptoms Blood Urea Nitrogen 20 10 - 20 mg/dL [facility] Creatinine 0.75(L) 0.80 - 1.50 mg/dL [facility] Sodium 134(L) 135 - 145 mmol/L [facility] Potassium 4.2 3.5 - 5.0 mmol/L [facility] Comment: Please note: ??Patients with WBC >100,000 may have falsely elevated Potassium levels. ??For accurate Potassium quantification in these patients send serum separator tube (gold top) for subsequent determinations. ??Contact the Clinical Chemistry Laboratory if there are any questions. Chloride 100 98 - 107 mmol/L [facility] Carbon Dioxide 27 22 - 31 mmol/L [facility] Anion Gap 7 5 - 15 mmol/L [facility] Calcium 8.8 8.5 - 10.5 mg/dL [facility] Est Glomerular Filtration Rate 115 >=60 mL/min/1. 73 m?? [facility] Comment: This patient's estimated GFR was [...] and symptoms in addition to eGFR. Blood 10/04/2023 4:54 AM EDT 10/04/2023 5:19 AM EDT Narrative Resulting Agency Comment Spec In Lab Negar Obregon MD CHEMISTRY ORDERABLE S [facility] [place] [address] * (ABNORMAL) Hemogram (10/04/2023 4:54 AM EDT) White Blood Cell 5.4 4.0 - 9.5 x10(3)/mc L [facility] Red Blood Cell 4.10(L) 4.58 - 5.54 x10(6)/mc L [facility] Hemoglobin 11.9(L) 13.7 - 16.5 g/dL [facility] Hematocrit 35.5(L) 40.5 - 48.5 % [facility] Mean Cell Volume 86.6 82.9 - 93.1 fL [facility] Mean Cell Hemoglobin 29.0 27.5 - 32.1 pg [facility] Mean Cell Hemoglobin Concentration 33.5 32.0 - 35.7 g/dL [facility] [facility] Platelet 455(H) 145 - 357 x10(3)/mc L [facility] RDW Standard Deviation 47.0(H) 36.0 - 45.0 fL [facility] RDW coefficient of variation 14.9(H) 11.4 - 13.8 % [facility] Mean Platelet Volume 8.6 7.6 - 12.9 fL [facility] NRBC% auto 0.0 % [facility] NRBC Absolute 0.000 0.000 - 0.000 x10(3)/mc L [facility] Blood 10/04/2023 4:54 AM EDT 10/04/2023 5:19 AM EDT Narrative Resulting Agency Comment Spec In Lab Kristopher Reed MD HEMATOLOG Y ORDERABLES Performing Organization Address City/[facility]/ZIP Co de Phone Number [facility] [place] [address] * Hepatitis C RNA, quantitative, PCR (10/04/2023 4:54 AM EDT) HCV Viral Load 438,692 IU/mL [facility] HCV Viral Load Result: [id number] IU/mL Indication for Study: Hepatitis C Infection [...] by the U.S. Food and Drug Administration. [facility] Comment: [VERIFIED DATE]10.05.23 Verified By:Milo Canales (Electronic Signature) Blood 10/04/2023 4:54 AM EDT 10/04/2023 7:29 AM EDT Narrative Resulting Agency Comment Spec In Lab Negar Obregon MD MOLECULAR ORDERABLE S Performing Organization Address City/[facility]/ZIP Co de Phone Number [facility] [place] [address] * (ABNORMAL) Sedimentation rate (10/03/2023 5:59 AM EDT) Sedimentation Rate Automated 63(H) 2 - 28 mm/hr [facility] Comment: Effective June 28, 2019 new capillary photometric technology has resulted in a change in reference ranges. It is recommended that each ESR result be reviewed with its own age appropriate reference range. Blood 10/03/2023 5:59 AM EDT 10/03/2023 6:23 AM EDT Narrative Resulting Agency Comment Spec In Lab Kristopher Reed MD HEMATOLOG Y ORDERABLES [facility] [place] [address] * (ABNORMAL) Hemogram (10/03/2023 5:59 AM EDT) White Blood Cell 5.7 4.0 - 9.5 x10(3)/mc L [facility] Red Blood Cell 4.02(L) 4.58 - 5.54 x10(6)/mc L [facility] Hemoglobin 11.6(L) 13.7 - 16.5 g/dL [facility] Hematocrit 35.1(L) 40.5 - 48.5 % [facility] Mean Cell Volume 87.3 82.9 - 93.1 fL [facility] Mean Cell Hemoglobin 28.9 27.5 - 32.1 pg [facility] Mean Cell Hemoglobin Concentration 33.0 32.0 - 35.7 g/dL [facility] Platelet 416(H) 145 - 357 x10(3)/mc L [facility] RDW Standard Deviation 48.2(H) 36.0 - 45.0 fL [facility] RDW coefficient of variation 15.0(H) 11.4 - 13.8 % [facility] Mean Platelet Volume 9.0 7.6 - 12.9 fL [facility] NRBC% auto 0.0 % [facility] NRBC Absolute 0.000 0.000 - 0.000 x10(3)/mc L [facility] Blood 10/03/2023 5:59 AM EDT 10/03/2023 6:23 AM EDT Narrative Resulting Agency Comment Spec In Lab Kristopher Reed MD HEMATOLOG Y ORDERABLES Performing Organization Address [facility]/ZIP Co de Phone Number [facility] [place] [address] * (ABNORMAL) CRP, acute inflammation (10/03/2023 5:59 AM EDT) C-Reactive Protein 5.7(H) <=4.9 mg/L [facility] Blood 10/03/2023 5:59 AM EDT 10/03/2023 6:23 AM EDT Narrative Resulting Agency Comment Spec In Lab Kristopher Reed MD CHEMISTRY ORDERABLES Performing Organization Address [facility] Co de Phone Number [facility] [place] [address] * Vancomycin Level, Random (10/03/2023 5:59 AM EDT) Vancomycin, Random 15.0 mg/L M [facility] Comment: This level is for determination of the patient's vancomycin lelh-cdxsj-qbw-curve (AUC) value. Contact the inpatient pharmacy for interpretation. Blood 10/03/2023 5:59 AM EDT 10/03/2023 6:23 AM EDT Negar Obregon MD CHEMISTRY ORDERABLE S Performing Organization Address [facility] Co de Phone Number [facility] [place] [address] * (ABNORMAL) Basic Metabolic Panel (non-fasting) (10/03/2023 5:59 AM EDT) Glucose 152 65 - 199 mg/dL [facility] Comment:Diabetes: >=200 mg/d L plus symptoms Blood Urea Nitrogen 19 10 - 20 mg/dL [facility] Creatinine 0.69(L) 0.80 - 1.50 mg/dL [facility] Sodium 132(L) 135 - 145 mmol/L [facility] Potassium 3.9 3.5 - 5.0 mmol/L [facility] Comment: Please note: ??Patients with WBC >100,000 may have falsely elevated Potassium levels. ??For accurate Potassium quantification in these patients send serum separator tube (gold top) for subsequent determinations. ??Contact the Clinical Chemistry Laboratory if there are any questions. Chloride 100 98 - 107 mmol/L [facility] Carbon Dioxide 25 22 - 31 mmol/L [facility] Anion Gap 7 5 - 15 mmol/L [facility] Calcium 8.4(L) 8.5 - 10.5 mg/dL [facility] Est Glomerular Filtration Rate 118 >=60 mL/min/1. 73 m?? [facility] Comment: This patient's estimated GFR was [...] and symptoms in addition to eGFR. Blood 10/03/2023 5:59 AM EDT 10/03/2023 6:23 AM EDT Narrative Resulting Agency Comment Spec In Lab Eugene Hidalgo MD CHEMISTRY ORDERABLES [facility] [place] [address] * (ABNORMAL) Hepatic Function Panel (10/02/2023 12:47 PM EDT) Protein, Total 7.4 6.1 - 8.0 g/dL [facility] Albumin 3.1(L) 3.2 - 5.2 g/dL [facility] Aspartate Aminotransferase 79(H) 0 - 39 unit/L [facility] Alanine Aminotransferase 103(H) 0 - 55 unit/L [facility] Alkaline Phosphatase 78 40 - 130 unit/L [facility] Bilirubin, Total 0.3 0.2 - 1.3 mg/dL [facility] Bilirubin, Direct 0.1 0.0 - 0.3 mg/dL [facility] Blood 10/02/2023 12:4 7 PM EDT 10/02/2023 1:17 PM EDT Narrative Resulting Agency Comment Spec In Lab Negar Obregon MD CHEMISTRY ORDERABLE S [facility] [place] [place] [address] * Blood culture (10/02/2023 11:30 AM EDT) Blood Culture No growth at 5 days. [facility] Blood STRUCTURE OF LEFT FOREARM / Unknown 10/02/2023 11:30 AM EDT 10/02/2023 12:29 PM EDT Comment:#1 Narrative Resulting Agency Comment Spec In Lab Kristopher Reed MD MICROBIOL OGY - BLOOD ORDERABLES Performing Organization Address City/[facility]/ZIP Co de Phone Number [facility] [place] [address] * Blood culture (10/02/2023 11:30 AM EDT) Blood Culture No growth at 5 days. [facility] Blood ANTECUBITAL REGION STRUCTURE / Unknown 10/02/2023 11:30 AM EDT 10/02/2023 12:29 PM EDT Comment:#2 Narrative Resulting Agency Comment Spec In Lab Kristopher Reed MD MICROBIOL OGY - BLOOD ORDERABLES Performing Organization Address City/[facility]/ZIP Co de Phone Number [facility] [place] [address] * Vancomycin Level, Random (10/02/2023 11:17 AM EDT) Vancomycin, Random 10.9 mg/L [facility] Comment: This level is for determination of the patient's vancomycin fqum-wfptb-fdu-curve (AUC) value. Contact the inpatient pharmacy for interpretation. Blood Venous Draw / Unknown 10/02/2023 11:17 AM EDT 10/02/2023 11:59 AM EDT Negar Obregon MD CHEMISTRY ORDERABLE S Performing Organization Address City/[facility]/ZIP Co de Phone Number [facility] [place] [address] * (ABNORMAL) Sedimentation rate (10/02/2023 11:17 AM EDT) Sedimentation Rate Automated 78(H) 2 - 28 mm/hr [facility] Comment: Effective June 28, 2019 new capillary photometric technology has resulted in a change in reference ranges. It is recommended that each ESR result be reviewed with its own age appropriate reference range. Blood 10/02/2023 11:1 7 AM EDT 10/02/2023 11:56 AM EDT Narrative Resulting Agency Comment Spec In Lab Kristopher Reed MD HEMATOLOG Y ORDERABLES Performing Organization Address City/[facility]/ZIP Co de Phone Number [facility] [place] [address] * (ABNORMAL) Hemogram (10/02/2023 11:17 AM EDT) White Blood Cell 7.7 4.0 - 9.5 x10(3)/mc L [facility] Red Blood Cell 4.38(L) 4.58 - 5.54 x10(6)/mc L [facility] Hemoglobin 12.5(L) 13.7 - 16.5 g/dL [facility] Hematocrit 37.7(L) 40.5 - 48.5 % [facility] Mean Cell Volume 86.1 82.9 - 93.1 fL [facility] Mean Cell Hemoglobin 28.5 27.5 - 32.1 pg [facility] Mean Cell Hemoglobin Concentration 33.2 32.0 - 35.7 g/dL [facility] Platelet 418(H) 145 - 357 x10(3)/mc L [facility] RDW Standard Deviation 47.1(H) 36.0 - 45.0 fL [facility] RDW coefficient of variation 14.9(H) 11.4 - 13.8 % [facility] Mean Platelet Volume 8.7 7.6 - 12.9 fL [facility] NRBC% auto 0.0 % [facility] NRBC Absolute 0.000 0.000 - 0.000 x10(3)/mc L [facility] Blood 10/02/2023 11:1 7 AM EDT 10/02/2023 11:56 AM EDT Narrative Resulting Agency Comment Spec In Lab Kristopher Reed MD HEMATOLOG Y ORDERABLES Performing Organization Address City/[facility]/ZIP Co de Phone Number [facility] [place] [address] * (ABNORMAL) CRP, acute inflammation (10/02/2023 11:17 AM EDT) C-Reactive Protein 8.0(H) <=4.9 mg/L [facility] Blood 10/02/2023 11:1 7 AM EDT 10/02/2023 11:56 AM EDT Narrative Resulting Agency Comment Spec In Lab Kristopher Reed MD CHEMISTRY ORDERABLES Performing Organization Address [facility] Co de Phone Number [facility] [place] [address] * (ABNORMAL) Basic Metabolic Panel (non-fasting) (10/02/2023 11:17 AM EDT) Glucose 157 65 - 199 mg/dL [facility] Comment:Diabetes: >=200 mg/d L plus symptoms Blood Urea Nitrogen 14 10 - 20 mg/dL [facility] Creatinine 0.73(L) 0.80 - 1.50 mg/dL [facility] Sodium 133(L) 135 - 145 mmol/L [facility] Potassium 4.4 3.5 - 5.0 mmol/L [facility] Comment: Please note: ??Patients with WBC >100,000 may have falsely elevated Potassium levels. ??For accurate Potassium quantification in these patients send serum separator tube (gold top) for subsequent determinations. ??Contact the Clinical Chemistry Laboratory if there are any questions. Chloride 100 98 - 107 mmol/L [facility] Carbon Dioxide 25 22 - 31 mmol/L [facility] Anion Gap 8 5 - 15 mmol/L [facility] Calcium 8.7 8.5 - 10.5 mg/dL [facility] Est Glomerular Filtration Rate 116 >=60 mL/min/1. 73 m?? [facility] Comment: This patient's estimated GFR was [...] and symptoms in addition to eGFR. Blood 10/02/2023 11:1 7 AM EDT 10/02/2023 11:56 AM EDT Narrative Resulting Agency Comment Spec In Lab Eugene Hidalgo MD CHEMISTRY ORDERABLES [facility] [place] [address] * Hepatitis C RNA, quantitative, PCR (10/01/2023 8:25 PM EDT) HCV Viral Load 891,316 IU/mL [facility] HCV Viral Load Result: [id number] IU/mL Indication for Study: Hepatitis C Infection Analysis: The Ignacio Alinity m HCV assay is an in vitro reverse transcriptase polymerase chain reaction (RT-PCR)for the quantification of hepatitis C viral (HCV) RNA in human serum or plasma (EDTA) from HCV-infected individuals. Sample: plasma/serum Method: Ignacio Alinity m HCV Assay Linear Range: 12 IU/mL - 100,000,000IU/mL Note: The Ignacio Endymednity HCV Assay has been approved by the U.S. Food and Drug Administration. [facility] Comment: [VERIFIED DATE]10.05.23 Verified By:Milo Canales (Electronic Signature) Blood 10/01/2023 8:25 PM EDT 10/02/2023 1:58 PM EDT Narrative Resulting Agency Comment Spec In Lab Marisela Jones [employer]OUNTING SPECIALIST MOLECULAR ORDERABLE S Performing Organization Address City/[facility]/ZIP Co de Phone Number [facility] [place] [address] * (ABNORMAL) Hepatitis C Antibody (10/01/2023 8:25 PM EDT) Hepatitis C Antibody Positive(A ) Negative [facility] Blood 10/01/2023 8:25 PM EDT 10/01/2023 8:31 PM EDT Narrative Resulting Agency Comment Spec In Lab Marisela Nesbitts [employer]RO[employer] ACCOUNTING SPECIALIST CHEMISTRY ORDERABLE S Performing Organization Address [facility] Co de Phone Number [facility] [place] [address] * Syphilis Screening Antibody with reflex RPR (10/01/2023 8:25 PM EDT) Pathologist [facility] Syphilis IgG/IgM Negative Negative [facility] Blood 10/01/2023 8:25 PM EDT 10/01/2023 8:31 PM EDT Narrative Resulting Agency Comment Spec In Lab Marisela Nesbitts [employer]RO[employer] ACCOUNTING SPECIALIST CHEMISTRY ORDERABLE S Performing Organization Address [facility] Co de Phone Number [facility] [place] [address] * HIV Screen, 4th Generation (MC/CGP/APD/NLH) (10/01/2023 8:25 PM EDT) Pathologist [facility] HIV Ab/Ag Screen Negative Negative [facility] Comment: This 4th Generation HIV test [...] HIV Comment Low Risk of HIV Infection [facility] Blood 10/01/2023 8:25 PM EDT 10/01/2023 8:31 PM EDT Narrative Resulting Agency Comment Spec In Lab Marisela Renner Robert RAMIREZ CHEMISTRY ORDERABLE S Performing Organization Address [facility] Co de Phone Number [facility] [place] [address] * (ABNORMAL) Hemoglobin A1c (10/01/2023 9:21 AM EDT) Hemoglobin A1c 6.2(H) 4.3 - 5.6 % [facility] Comment: Reference Range: 4.3 - 5.6% 5.7 - 6.4% - Increased Risk of Developing Diabetes Mellitus >= 6.5% - Consistent with diagnosis of Diabetes Mellitus In the absence of hyperglycemia (i.e. plasma glucose > 200 mg/dL) or classic symptoms of hyperglycemia a repeat measurement of HbA1c should be performed on a separate sample to confirm the diagnosis. Diagnosis and Classification of Diabetes Mellitus, Diabetes Care 2013; 36: Suppl. 1, S67-62 Estimated Average Glucose 132 mg/dL [facility] Blood Venous Draw / Unknown 10/01/2023 9:21 AM EDT 10/02/2023 8:59 AM EDT Narrative Resulting Agency Comment Spec In Lab Negar Obregon MD CHEMISTRY ORDERABLE S Performing Organization Address [facility] Co de Phone Number [facility] [place] [address] * (ABNORMAL) Sedimentation rate (10/01/2023 9:21 AM EDT) Sedimentation Rate Automated 73(H) 2 - 28 mm/hr [facility] Comment: Effective June 28, 2019 new capillary photometric technology has resulted in a change in reference ranges. It is recommended that each ESR result be reviewed with its own age appropriate reference range. Blood 10/01/2023 9:21 AM EDT 10/01/2023 9:28 AM EDT Narrative Resulting Agency Comment Spec In Lab Kristopher Reed MD HEMATOLOG Y ORDERABLES [facility] [place] [address] * (ABNORMAL) Hemogram (10/01/2023 9:21 AM EDT) White Blood Cell 7.6 4.0 - 9.5 x10(3)/mc L [facility] Red Blood Cell 4.03(L) 4.58 - 5.54 x10(6)/mc L [facility] Hemoglobin 11.7(L) 13.7 - 16.5 g/dL [facility] Hematocrit 33.9(L) 40.5 - 48.5 % [facility] Mean Cell Volume 84.1 82.9 - 93.1 fL [facility] Mean Cell Hemoglobin 29.0 27.5 - 32.1 pg [facility] Mean Cell Hemoglobin Concentration 34.5 32.0 - 35.7 g/dL [facility] Platelet 382(H) 145 - 357 x10(3)/mc L [facility] RDW Standard Deviation 46.8(H) 36.0 - 45.0 fL [facility] RDW coefficient of variation 15.2(H) 11.4 - 13.8 % [facility] Mean Platelet Volume 8.9 7.6 - 12.9 fL [facility] NRBC% auto 0.0 % [facility] NRBC Absolute 0.000 0.000 - 0.000 x10(3)/mc L [facility] Blood 10/01/2023 9:21 AM EDT 10/01/2023 9:28 AM EDT Narrative Resulting Agency Comment Spec In Lab Kristopher Reed MD HEMATOLOG Y ORDERABLES [facility] [place] [address] * (ABNORMAL) CRP, acute inflammation (10/01/2023 9:21 AM EDT) C-Reactive Protein 10.3(H) <=4.9 mg/L [facility] Blood 10/01/2023 9:21 AM EDT 10/01/2023 9:28 AM EDT Narrative Resulting Agency Comment Spec In Lab Kristopher Reed MD CHEMISTRY ORDERABLES Performing Organization Address City/[facility]/ZIP Co de Phone Number [facility] [place] [address] * Blood culture (10/01/2023 9:21 AM EDT) Blood Culture No growth at 5 days. [facility] Blood STRUCTURE OF RIGHT UPPER LIMB / Unknown 10/01/2023 9:21 AM EDT 10/01/2023 9:51 AM EDT Narrative Resulting Agency Comment Spec In Lab Eugene Hidalgo MD MICROBIOLOGY - BLOOD ORDERABLES Performing Organization Address [facility] Co de Phone Number [facility] [place] [address] * (ABNORMAL) Basic Metabolic Panel (non-fasting) (10/01/2023 9:21 AM EDT) Glucose 329(H) 65 - 199 mg/dL [facility] Comment:Diabetes: >=200 mg/d L plus symptoms Blood Urea Nitrogen 11 10 - 20 mg/dL [facility] Creatinine 0.71(L) 0.80 - 1.50 mg/dL [facility] Sodium 132(L) 135 - 145 mmol/L [facility] Potassium 4.1 3.5 - 5.0 mmol/L [facility] Comment: Please note: ??Patients with WBC >100,000 may have falsely elevated Potassium levels. ??For accurate Potassium quantification in these patients send serum separator tube (gold top) for subsequent determinations. ??Contact the Clinical Chemistry Laboratory if there are any questions. Chloride 100 98 - 107 mmol/L [facility] Carbon Dioxide 24 22 - 31 mmol/L [facility] Anion Gap 8 5 - 15 mmol/L [facility] Calcium 8.3(L) 8.5 - 10.5 mg/dL [facility] Est Glomerular Filtration Rate 117 >=60 mL/min/1. 73 m?? [facility] Comment: This patient's estimated GFR was [...] and symptoms in addition to eGFR. Blood 10/01/2023 9:21 AM EDT 10/01/2023 9:28 AM EDT Narrative Resulting Agency Comment Spec In Lab Eugene Hidalgo MD CHEMISTRY ORDERABLES Performing Organization Address City/State/[facility] Co de Phone Number [facility] [place] [place] [address] * ECHO COMPLETE (10/01/2023 8:35 AM EDT) Anatomical Region Laterality Modality Cardiac Other 10/01/2023 6:54 AM EDT Narrative 10/01/2023 8:59 AM EDT [address] [place] [address] ? Echocardiogram Report Name: MARCOS CAMEJO ?Study Date: 10/01/2023 06:54 AMBP: 122/63 mmHg ? Patient Location: [id number] : 1980 ? Height: 175 cm ? Account: [id number] Age: 43 yrs ? Weight: 75 kg Gender: Male ?BSA: 1.9 m2 Ordering Physician: EUGENE HIDALGO Referring Physician: LUIS FERNANDO Performed By: SANDHYA Mena Reason For Study: Bacteremia due to Staphylococcus aureus Exam Location: [facility]. Interpretation Summary LV is mildly dilated. Wall thickness is normal. Left ventricular systolic function is normal. The left ventricular ejection fraction is 64% by 3D volumetric assessment. There are no segmental wall motion abnormalities. The right ventricle is of normal size. Right ventricular systolic function is normal. Estimated RVSP is 40 mmHg. The left atrium is moderately dilated. There is no hemodynamically significant valve disease. No prior study available for comparison. Procedure Complete-[id number]. Satisfactory quality. There is normal sinus rhythm. Left Ventricle Left ventricle is mildly dilated. Wall thickness is normal. There is no ventricular septal defect. Left ventricular systolic function is normal. The left ventricular ejection fraction is 64% by 3D volumetric assessment. There are no segmental wall motion abnormalities. Right Ventricle The right ventricle is of normal size. Right ventricular systolic function is normal. Left Atrium The left atrium is moderately dilated. There is no evidence for a patent foramen ovale. Right Atrium The right atrium is mildly dilated. Aortic Valve The aortic valve is tricuspid. There is no aortic stenosis. There is no aortic regurgitation. Mitral Valve The mitral valve is structurally normal. There is no mitral stenosis. There is moderate mitral regurgitation. Tricuspid Valve The tricuspid valve is structurally normal. There is no tricuspid stenosis. There is mild tricuspid regurgitation. Pulmonic Valve The pulmonic valve appears to be structurally normal. There is no valvular pulmonic stenosis. There is no pulmonic valve regurgitation. Great Arteries The aortic root is of normal size. No abnormalities are identified. Ascending aorta is normal in size. No abnormalities of the pulmonary artery are identified. Venous Inferior vena cava is dilated. Inferior vena cava collapse greater than 50% with respiration. Pericardium/Pleural There is no pericardial effusion. Hemodynamics The peak right ventricular systolic pressure is 40.0 mmHg . The estimated right atrial pressure is 8mmHg. Left ventricular diastolic function is indeterminate. Ejection Fraction ?2D Measurements ? Volumes 4D EF: 64.4 % ? IVSd: 0.84 cm ?LAV(MOD- bp) Indexed: ?LVIDd: 5.3 cm ?LVPWd: 0.89 cm ? 42.1 ml/m2 ?RWT: 0.34 {ratio} ?RA A4Cs_phl: 20.1 cm2 ? 3D ESV: 58.2 ml ?LV mass(C)d: 166.0 grams ? 3D EDV: 163.6 ml ?LV mass(C)dI: 87.2 grams/m2 ?Ao root diam: 3.0 cm ? 3DEDV Indexed: 86.0 ml/m2 ?Ao root diam index: 1.6 ?3DESV Indexed: 30.6 ml/m2 ?asc Aorta Diam: 2.7 cm ? SV(LVOT): 58.3 ml ?LVOT diam: 1.7 cm ?TAPSE_phl: 2.3 cm ?SI(LVOT): 30.6 ml/m2 Doppler LV V1 VTI: 24.7 cm MV E max jas: 69.7 cm/sec MV A max jas: 42.3 cm/sec MV E/A: 1.6 MV dec time: 0.20 sec Lat Peak E' Jas: 19.3 cm/sec E/ e' (lat): 3.6 Med Peak E' Jas: 11.7 cm/sec E/e' (med): 5.9 E/e' Average: 4.8 TR max jas: 282.7 cm/sec RVSP(TR): 40.0 mmHg I ?WMSI = 1.00 ? % Normal = 100 ?Segments ??Size X - Cannot ?2 - ?4 - ?1-2 ? small Interpret ?1 - Normal ?? Hypokinetic 3 - Akinetic Dyskinetic ?? 3-5 ? moderate 5 - ? 6-14 ?large Aneurysmal ?15-16 ?? diffuse Procedure Note Woody Schuler MD - 10/01/2023 1 [place] [address] Echocardiogram Report Name: MARCOS CAMEJO Study Date: 406:54 AMBP: 122/63 mmHg Patient Location:[facility]^256^A : 1980 Height: 175 cm Account: [id number] Age: 43 yrs Weight: 75 kg Gender: Male BSA: 1.9 m2 Ordering Physician: EUGENE HIDALGO Referring Physician: UNKNOWN Performed By: SANDHYA Mena Reason For Study: Bacteremia due to Staphylococcus aureus Exam Location: [facility]. Interpretation Summary LV is mildly dilated. Wall thickness is normal. Left ventricular systolicfunction is normal. The left ventricular ejection fraction is 64% by 3Dvolumetric assessment. There are no segmental wall motion abnormalities. The right ventricle is of normal size. Right ventricular systolic functionis normal. Estimated RVSP is 40 mmHg. The left atrium is moderately dilated. There is no hemodynamically significant valve disease. No prior study available for comparison. Procedure Complete-[id number]. Satisfactory quality. There is normal sinus rhythm. Left Ventricle Left ventricle is mildly dilated. Wall thickness is normal. There is no ventricular septal defect. Left ventricular systolic function is normal.The left ventricular ejection fraction is 64% by 3D volumetric assessment. Thereare no segmental wall motion abnormalities. Right Ventricle The right ventricle is of normal size. Right ventricular systolic functionis normal. Left Atrium The left atrium is moderately dilated. There is no evidence for a patentforamen ovale. Right Atrium The right atrium is mildly dilated. Aortic Valve The aortic valve is tricuspid. There is no aortic stenosis. There is noaortic regurgitation. Mitral Valve The mitral valve is structurally normal. There is no mitral stenosis.There is moderate mitral regurgitation. Tricuspid Valve The tricuspid valve is structurally normal. There is no tricuspidstenosis. There is mild tricuspid regurgitation. Pulmonic Valve The pulmonic valve appears to be structurally normal. There is novalvular pulmonic stenosis. There is no pulmonic valve regurgitation. Great Arteries The aortic root is of normal size. No abnormalities are identified.Ascending aorta is normal in size. No abnormalities of the pulmonary artery areidentified. Venous Inferior vena cava is dilated. Inferior vena cava collapse greater than50% with respiration. Pericardium/Pleural There is no pericardial effusion. Hemodynamics The peak right ventricular systolic pressure is 40.0 mmHg . The estimatedright atrial pressure is 8mmHg. Left ventricular diastolic function isindeterminate. Ejection Fraction 2D Measurements Volumes 4D EF: 64.4 % IVSd: 0.84 cm LAV(MOD-bp)Indexed: LVIDd: 5.3 cm LVPWd: 0.89 cm 42.1 ml/m2 RWT: 0.34 {ratio} RA A4Cs_phl: 20.1cm2 3D ESV: 58.2 ml LV mass(C)d: 166.0 grams 3D EDV: 163.6ml LV mass(C)dI: 87.2 grams/m2 Ao root diam: 3.0 cm 3DEDV Indexed:86.0 ml/m2 Ao root diam index: 1.6 3DESV Indexed:30.6 ml/m2 asc Aorta Diam: 2.7 cm SV(LVOT): 58.3ml LVOT diam: 1.7 cm TAPSE_phl: 2.3 cm SI(LVOT): 30.6ml/m2 Doppler LV V1 VTI: 24.7 cm MV E max jas: 69.7 cm/sec MV A max jas: 42.3 cm/sec MV E/A: 1.6 MV dec time: 0.20 sec Lat Peak E' Jas: 19.3 cm/sec E/ e' (lat): 3.6 Med Peak E' Jas: 11.7 cm/sec E/e' (med): 5.9 E/e' Average: 4.8 TR max jas: 282.7 cm/sec RVSP(TR): 40.0 mmHg I WMSI = 1.00 % Normal = 100 SegmentsSize X - Cannot 2 - 4 - 1-2small Interpret 1 - Normal Hypokinetic 3 - Akinetic Dyskinetic 3-5moderate 5 - 6-14large Aneurysmal 15-16diffuse Eugene Hidalgo MD ECHO ORDERABLES * CT Hand w Contrast Left (09/30/2023 7:57 PM EDT) Anatomical Region Laterality Modality Hand Left Computed Tomogra phy Impressions 09/30/2023 8:06 PM EDT 1. ??Small third MCP joint effusion and equivocal minimal third MCP joint space narrowing. Findings are concerning for potential third MCP joint sepsis. No CT evidence of osteomyelitis. 2. ??Dorsal subcutaneous edema and skin thickening. Correlate with cellulitis on physical exam. 3. ??No loculated fluid collection/abscess. 4. ??No tracking soft tissue gas. Thank you for letting us participate in the care of this patient. ??If you are a health care provider and have any questions regarding this report, please contact the number below. ??For patients who have questions please contact the health senior care specialist that requested your imaging first. ? Narrative 09/30/2023 8:06 PM EDT EXAMINATION: CT HAND W CONTRAST LEFT CLINICAL HISTORY: diffuse swelling in context of IVDU, c/f abscess TECHNIQUE: Helically acquired images were obtained through the left hand following the administration of intravenous contrast. Multiplanar reformatted images were generated. Contrast: 90 cc Omnipaque 350 COMPARISON: Bilateral hand radiographs 09/28/2023 FINDINGS: No fracture or dislocation. No osseous destructive change or erosions. No periostitis. Couple small calcifications along the radial aspect of the distal fifth proximal phalanx presumably due to remote injury. At the third MCP joint, there is a small joint effusion with joint fluid protruding dorsally. Equivocal minimal joint space narrowing at the third MCP joint. No other joint effusions. There is diffuse subcutaneous edema and skin thickening along the dorsal aspect of the hand and wrist. No loculated rim-enhancing fluid collection suspicious for abscess. No evidence of tenosynovitis. No tracking soft tissue gas. Procedure Note Biju Philip MD - 09/30/2023 EXAMINATION: CT HAND W CONTRAST LEFT CLINICAL HISTORY: diffuse swelling in context of IVDU, c/f abscess TECHNIQUE: Helically acquired images were obtained through the left hand following the administration of intravenous contrast. Multiplanarreformatted images were generated. Contrast: 90 cc Omnipaque 350 COMPARISON: Bilateral hand radiographs 09/28/2023 FINDINGS: No fracture or dislocation. No osseous destructive change or erosions.No periostitis. Couple small calcifications along the radial aspect of thedistal fifth proximal phalanx presumably due to remote injury. At the third MCPjoint, there is a small joint effusion with joint fluid protruding dorsally.Equivocal minimal joint space narrowing at the third MCP joint. No other jointeffusions. There is diffuse subcutaneous edema and skin thickening along the dorsalaspect of the hand and wrist. No loculated rim-enhancing fluid collectionsuspicious for abscess. No evidence of tenosynovitis. No tracking soft tissue gas. IMPRESSION 1. Small third MCP joint effusion and equivocal minimal third MCP jointspace narrowing. Findings are concerning for potential third MCP joint sepsis.No CT evidence of osteomyelitis. 2. Dorsal subcutaneous edema and skin thickening. Correlate withcellulitis on physical exam. 3. No loculated fluid collection/abscess. 4. No tracking soft tissue gas. Thank you for letting us participate in the care of this patient. If youare a health care provider and have any questions regarding this report,please contact the number below. For patients who have questions please contactthe health senior care specialist that requested your imaging first. Eugene Hidalgo MD IMG CT ORDERABLES * (ABNORMAL) Abscess/Wound Aspirate Culture Abscess; Hand, Right (09/30/2023 7:00 PM EDT) Abscess/Wound Aspirate Culture Few Staphylococcus aureus(A) [facility] Gram Stain Many Neutrophils seen Few Gram Positive Cocci seen (A) [facility] Organism Staphylococcus aureus(A) [facility] Organism Gram Positive Cocci(A) [facility] Abscess STRUCTURE OF RIGHT HAND / Unknown 09/30/2023 7:00 PM EDT 09/30/2023 7:29 PM EDT Comment:Sample #2 Narrative Resulting Agency Comment Spec In Lab Organism Antibiotic Method Susceptibility Staphylococcus aureus Clindamycin VITEK 2 METHOD Sensitive Staphylococcus aureus Erythromycin VITEK 2 METHOD Resistant Staphylococcus aureus Gentamicin VITEK 2 METHOD Sensitive Comment:Gentamicin i s not appropriate for Alfalfa-therapy. Staphylococcus aureus Oxacillin VITEK 2 METHOD Sensitive Comment: Oxacillin (methicillin) susceptibility is a surrogate for the oral and parenteral cephalosporins, beta-lactam combination agents (amoxicillin-clavulanate, ampicillin-sulbactam and piperacillin-tazobactam) and carbapenem agents. ??It is NOT a surrogate for penicillin, ampicillin or piperacillin susceptibility. Staphylococcus aureus Trimethoprim/Sulfa VITEK 2 METHO D Sensitive Staphylococcus aureus Tetracycline VITEK 2 METHOD Sensitive Staphylococcus aureus Vancomycin VITEK 2 METHOD Sensitive Eugene Hidalgo MD MICROBIOLOGY - GENER AL ORDERABLES Performing Organization Address [facility]/ZIP Co de Phone Number [facility] [place] [address] * (ABNORMAL) Abscess/Wound Aspirate Culture Abscess; Hand, Right (09/30/2023 7:00 PM EDT) Abscess/Wound Aspirate Culture Few Staphylococcus aureus Susceptibilities previously reported (A) [facility] Gram Stain Many Neutrophils seen Rare Gram Positive Cocci seen (A) [facility] Organism Staphylococcus aureus(A) [facility] Organism Gram Positive Cocci(A) [facility] Abscess STRUCTURE OF RIGHT HAND / Unknown 09/30/2023 7:00 PM EDT 09/30/2023 7:29 PM EDT Narrative Resulting Agency Comment Spec In Lab Eugene Hidalgo MD MICROBIOLOGY - GENER AL ORDERABLES Performing Organization Address [facility] Co de Phone Number [facility] [place] [address] * CT Hand w Contrast Right (09/30/2023 5:59 PM EDT) Anatomical Region Laterality Modality Hand Right Computed Tomogra phy Impressions 09/30/2023 8:14 PM EDT 1. ??Multiloculated fluid collection along the dorsal and medial aspect of the hand measuring approximately 6.5 x 1.5 x 5.6 cm in size suspicious for abscess. 2. ??Small amount of tenosynovial fluid tracking proximally from the abscess along the extensor digiti minimi tendon sheath proximal to the wrist joint suspicious for septic tenosynovitis. 3. ??No appreciable joint effusions or CT evidence of osteomyelitis. Thank you for letting us participate in the care of this patient. ??If you are a health care provider and have any questions regarding this report, please contact the number below. ??For patients who have questions please contact the health senior care specialist that requested your imaging first. ? Narrative 09/30/2023 8:14 PM EDT EXAMINATION: CT HAND W CONTRAST RIGHT CLINICAL HISTORY: 43m hx of IVDU, large area of induration and swelling of right hand c/f abscess or joint involvement TECHNIQUE: Helically acquired images were obtained through the right hand and wrist following the administration of intravenous contrast. Multiplanar reformatted images were generated. Contrast: 110 cc Omnipaque 350 COMPARISON: Bilateral hand radiographs performed earlier the same date FINDINGS: There is a multi septated fluid collection with rim and septal enhancement along the dorsal ulnar aspect of the hand overlying the third through fifth metacarpals and along the medial margin of the hyperthenar eminence suspicious for abscess measuring 6.5 x 1.5 x 5.6 cm in size. Thin tail of this collection tracks proximally along the course of the extensor digiti minimi tendon proximal to the wrist joint on series 11 image 204. No other fluid collection or other sites of tenosynovitis identified. Subcutaneous edema and skin thickening along the dorsal hand suggesting cellulitis. No joint effusions. No acute fracture or dislocation. Mild deformity of the distal fifth metacarpal consistent with remote healed fracture. Osteoarthritic changes at the third carpometacarpal joint with joint space narrowing, subchondral cysts, minimal osteophyte formation and a couple small periarticular bone fragments along the palmar aspect of the joint. Procedure Note Biju Philip MD - 09/30/2023 EXAMINATION: CT HAND W CONTRAST RIGHT CLINICAL HISTORY: 43m hx of IVDU, large area of induration and swelling ofright hand c/f abscess or joint involvement TECHNIQUE: Helically acquired images were obtained through the right handand wrist following the administration of intravenous contrast. Multiplanar reformatted images were generated. Contrast: 110 cc Omnipaque 350 COMPARISON: Bilateral hand radiographs performed earlier the same date FINDINGS: There is a multi septated fluid collection with rim and septal enhancementalong the dorsal ulnar aspect of the hand overlying the third through fifth metacarpals and along the medial margin of the hyperthenar eminencesuspicious for abscess measuring 6.5 x 1.5 x 5.6 cm in size. Thin tail of thiscollection tracks proximally along the course of the extensor digiti minimi tendonproximal to the wrist joint on series 11 image 204. No other fluid collection orother sites of tenosynovitis identified. Subcutaneous edema and skin thickeningalong the dorsal hand suggesting cellulitis. No joint effusions. No acutefracture or dislocation. Mild deformity of the distal fifth metacarpal consistentwith remote healed fracture. Osteoarthritic changes at the thirdcarpometacarpal joint with joint space narrowing, subchondral cysts, minimal osteophyte formation and a couple small periarticular bone fragments along thepalmar aspect of the joint. IMPRESSION 1. Multiloculated fluid collection along the dorsal and medial aspect ofthe hand measuring approximately 6.5 x 1.5 x 5.6 cm in size suspicious forabscess. 2. Small amount of tenosynovial fluid tracking proximally from theabscess along the extensor digiti minimi tendon sheath proximal to the wristjoint suspicious for septic tenosynovitis. 3. No appreciable joint effusions or CT evidence of osteomyelitis. Thank you for letting us participate in the care of this patient. If youare a health care provider and have any questions regarding this report,please contact the number below. For patients who have questions please contactthe health senior care specialist that requested your imaging first. Eugene Hidalgo MD IMG CT ORDERABLES * XR Hand Min 3 views Bilat (Generic) (09/30/2023 3:17 PM EDT) Anatomical Region Laterality Modality Hand Bilateral Digital Radiogra phy Impressions 09/30/2023 3:29 PM EDT 1. ??Marked soft tissue swelling of the bilateral hands with no soft tissue gas or radiodense foreign body. 2. ??No radiographic evidence of advanced osteomyelitis of either hand. 3. ??Well-corticated ossicles adjacent to the left small finger proximal phalanx with chronic appearing deformities of the bilateral fifth metacarpals, likely represent sequela of old trauma. 4. ??Posterolaterally osteoarthropathy of the left small finger interphalangeal joints. Thank you for letting us participate in the care of this patient. ??If you are a health care provider and have any questions regarding this report, please contact the number below. ??For patients who have questions please contact the health senior care specialist that requested your imaging first. ? Narrative 09/30/2023 3:29 PM EDT EXAMINATION: XR HAND MIN 3 VIEWS BILAT (GENERIC) CLINICAL HISTORY: bilateral dorsal hand swelling and pain bony abnormality? (as entered by ordering provider in the order requisition) TECHNIQUE: PA, oblique, lateral views of each hand. COMPARISON: None FINDINGS: Right: Marked soft tissue swelling on the dorsal-ulnar aspect of the right hand. No underlying fracture or bone destruction. Chronic deformity of the fifth metacarpal. Joint spaces are preserved. No radiodense foreign body or soft tissue gas. Left: Dorsal hand soft tissue swelling. No radiodense foreign body soft tissue gas. No underlying bone destruction or fracture. Well-corticated ossicles adjacent to the small finger proximal phalanx with small finger interphalangeal joint space narrowing. Chronic appearing deformity of the fifth metacarpal. Procedure Note Claudia Pérez MD - 09/30/2023 EXAMINATION: XR HAND MIN 3 VIEWS BILAT (GENERIC) CLINICAL HISTORY: bilateral dorsal hand swelling and pain bony abnormality? (as entered by ordering provider in the orderrequisition) TECHNIQUE: PA, oblique, lateral views of each hand. COMPARISON: None FINDINGS: Right: Marked soft tissue swelling on the dorsal-ulnar aspect of the right hand.No underlying fracture or bone destruction. Chronic deformity of the fifth metacarpal. Joint spaces are preserved.No radiodense foreign body or soft tissue gas. Left: Dorsal hand soft tissue swelling. No radiodense foreign body softtissue gas. No underlying bone destruction or fracture. Well-corticatedossicles adjacent to the small finger proximal phalanx with small fingerinterphalangeal joint space narrowing. Chronic appearing deformity of the fifthmetacarpal. IMPRESSION 1. Marked soft tissue swelling of the bilateral hands with no soft tissuegas or radiodense foreign body. 2. No radiographic evidence of advanced osteomyelitis of either hand. 3. Well-corticated ossicles adjacent to the left small finger proximalphalanx with chronic appearing deformities of the bilateral fifth metacarpals,likely represent sequela of old trauma. 4. Posterolaterally osteoarthropathy of the left small fingerinterphalangeal joints. Thank you for letting us participate in the care of this patient. If youare a health care provider and have any questions regarding this report,please contact the number below. For patients who have questions please contactthe health senior care specialist that requested your imaging first. Ashtyn Buck MD IMG DX ORDER MENDEZ * L-Lactate2 Whole Blood (09/30/2023 3:02 PM EDT) Pathologist [facility] Lactate WB 1.6 0.5 - 2.2 mmol/L [facility] Blood 09/30/2023 3:02 PM EDT 09/30/2023 3:[address] Osbaldo Gallego MD CHEMISTRY ORDERABLES [facility] [place] [address] * Blood culture (09/30/2023 3:02 PM EDT) Blood Culture No growth at 5 days. [facility] Blood 09/30/2023 3:02 PM EDT 09/30/2023 4:01 PM EDT Comment:LA Narrative Resulting Agency Comment Spec In Lab Ashtyn Buck MD MICROBIOLOGY - BLOOD ORDERABLES [facility] [place] [address] * (ABNORMAL) Sedimentation rate (09/30/2023 1:10 PM EDT) Sedimentation Rate Automated 85(H) 2 - 28 mm/hr [facility] Comment: Effective June 28, 2019 new capillary photometric technology has resulted in a change in reference ranges. It is recommended that each ESR result be reviewed with its own age appropriate reference range. Blood Venous Draw / Unknown 09/30/2023 1:10 PM EDT 09/30/2023 1:33 PM EDT Narrative Resulting Agency Comment Spec In Lab Vincent YAÑEZ HEMATOLOGY ORDERABLE S [facility] [place] [place] [address] * (ABNORMAL) CRP, acute inflammation (09/30/2023 1:10 PM EDT) C-Reactive Protein 17.7(H) <=4.9 mg/L [facility] Blood Venous Draw / Unknown 09/30/2023 1:10 PM EDT 09/30/2023 1:39 PM EDT Narrative Resulting Agency Comment Spec In Lab Vincent YAÑEZ CHEMISTRY ORDERABLES Performing Organization Address City/[facility]/ZIP Co de Phone Number [facility] [place] [address] * Mendoza Tube Hold (09/30/2023 1:10 PM EDT) Mendoza Hold Sample in lab. [facility] Blood Venous Draw / Unknown 09/30/2023 1:10 PM EDT 09/30/2023 1:35 PM EDT Artie Ford MD CHEMISTRY ORDERABLES [facility] [place] [address] * Gold Tube HOLD (09/30/2023 1:10 PM EDT) Gold Hold Sample in lab. [facility] Blood Venous Draw / Unknown 09/30/2023 1:10 PM EDT 09/30/2023 1:34 PM EDT Artie Ford MD CHEMISTRY ORDERABLES Performing Organization Address City/[facility]/[place] [address] * Blue Tube HOLD (09/30/2023 1:10 PM EDT) Blue Hold Sample in lab. [facility] Blood Venous Draw / Unknown 09/30/2023 1:10 PM EDT 09/30/2023 1:35 PM EDT Artie Ford MD HEMATOLOGY ORDERABLE S Performing Organization Address City/[facility] Co de Phone Number [facility] [place] [address] * (ABNORMAL) Differential, Automated (09/30/2023 1:10 PM EDT) Neutrophil % 69.9 % [facility] Neutrophil Absolute 5.36 1.70 - 6.10 x10(3)/mc L [facility] Lymph % 17.3 % [facility] Lymphocytes Abs 1.3 0.9 - 3.2 x10(3)/mc L [facility] Monocyte % 7.7 % [facility] Monocyte Abs 0.6 0.3 - 0.9 x10(3)/mc L [facility] Eos % 2.9 % [facility] Eosinophils Abs 0.2 0.0 - 0.4 x10(3)/mc L [facility] Basophil % 0.5 % [facility] Baso Absolute 0.0 0.0 - 0.1 x10(3)/mc L [facility] Immature Gran % 1.70 % [facility] Comment: Immature granulocytes(IG's)percentage and absolute count will include metamyelocytes, myelocytes, and promyelocytes. Blood smears from CBCs yielding IG's will be scanned manually for concordance. If this scan disagrees with the automated IG or if promyelocytes are noted, a manual differential will be performed. Immature Gran Absolute 0.13(H) 0.00 - 0.04 x10(3)/mc L [facility] Blood 09/30/2023 1:10 PM EDT 09/30/2023 1:33 PM EDT Narrative Resulting Agency Comment Spec In Lab Artie Ford MD HEMATOLOGY ORDERABLE S [facility] [place] [address] * (ABNORMAL) Hemogram (09/30/2023 1:10 PM EDT) White Blood Cell 7.7 4.0 - 9.5 x10(3)/mc L [facility] Red Blood Cell 4.60 4.58 - 5.54 x10(6)/mc L [facility] Hemoglobin 13.2(L) 13.7 - 16.5 g/dL [facility] Hematocrit 39.0(L) 40.5 - 48.5 % [facility] LABORATORY Mean Cell Volume 84.8 82.9 - 93.1 fL [facility] Mean Cell Hemoglobin 28.7 27.5 - 32.1 pg [facility] Mean Cell Hemoglobin Concentration 33.8 32.0 - 35.7 g/dL [facility] Platelet 399(H) 145 - 357 x10(3)/mc L [facility] RDW Standard Deviation 46.2(H) 36.0 - 45.0 fL [facility] RDW coefficient of variation 15.1(H) 11.4 - 13.8 % [facility] Mean Platelet Volume 9.1 7.6 - 12.9 fL [facility] NRBC% auto 0.0 % [facility]OR[facility] NRBC Absolute 0.000 0.000 - 0.000 x10(3)/ L [facility] Blood 09/30/2023 1:10 PM EDT 09/30/2023 1:33 PM EDT Narrative Resulting Agency Comment Spec In Lab Artie Ford MD HEMATOLOGY ORDERABLE S Performing Organization Address [facility] Co de Phone Number [facility] [place] [address] * Blood culture (09/30/2023 1:10 PM EDT) Blood Culture No growth at 5 days. [facility] Blood ANTECUBITAL REGION STRUCTURE / Unknown 09/30/2023 1:10 PM EDT 09/30/2023 2:02 PM EDT Narrative Resulting Agency Comment Spec In Lab Artie Ford MD MICROBIOLOGY - BLOOD ORDERABLES Performing Organization Address [facility] Co de Phone Number [facility] [place] [address] * Blood culture (09/30/2023 1:10 PM EDT) Blood Culture No growth at 5 days. [facility] Blood ANTECUBITAL REGION STRUCTURE / Unknown 09/30/2023 1:10 PM EDT 09/30/2023 2:01 PM EDT Narrative Resulting Agency Comment Spec In Lab Artie Ford MD MICROBIOLOGY - BLOOD ORDERABLES Performing Organization Address [facility] Co de Phone Number [facility] [place] [address] * (ABNORMAL) Comprehensive metabolic panel (non-fasting) (09/30/2023 1:10 PM EDT) Glucose 200(H) 65 - 199 mg/dL [facility] Comment:Diabetes: >=200 mg/d L plus symptoms Blood Urea Nitrogen 12 10 - 20 mg/dL [facility] Creatinine 0.71(L) 0.80 - 1.50 mg/dL [facility] Sodium 134(L) 135 - 145 mmol/L [facility] Potassium 4.0 3.5 - 5.0 mmol/L [facility] Comment: Please note: ??Patients with WBC >100,000 may have falsely elevated Potassium levels. ??For accurate Potassium quantification in these patients send serum separator tube (gold top) for subsequent determinations. ??Contact the Clinical Chemistry Laboratory if there are any questions. Chloride 100 98 - 107 mmol/L [facility] Carbon Dioxide 22 22 - 31 mmol/L [facility] Anion Gap 12 5 - 15 mmol/L [facility] Calcium 8.9 8.5 - 10.5 mg/dL [facility] Protein, Total 7.5 6.1 - 8.0 g/dL [facility] Albumin 3.2 3.2 - 5.2 g/dL [facility] Aspartate Aminotransferase 70(H) 0 - 39 unit/L [facility] Alanine Aminotransferase 151(H) 0 - 55 unit/L [facility] Alkaline Phosphatase 81 40 - 130 unit/L [facility] Bilirubin, Total 0.2 0.2 - 1.3 mg/dL [facility] Est Glomerular Filtration Rate 117 >=60 mL/min/1. 73 m?? [facility] Comment: This patient's estimated GFR was [...] and symptoms in addition to eGFR. Blood 09/30/2023 1:10 PM EDT 09/30/2023 1:33 PM EDT Narrative Resulting Agency Comment Spec In Lab Artie Ford MD CHEMISTRY ORDERABLES [facility] [place] [address] * XR Chest PA & Lateral (Generic) (09/30/2023 12:48 PM EDT) Anatomical Region Laterality Modality Chest N/A Digital Radiogra phy Impressions 09/30/2023 1:14 PM EDT No acute cardiopulmonary findings. Thank you for letting us participate in the care of this patient. ??If you are a health care provider and have any questions regarding this report, please contact the number below. ??For patients who have questions please contact the health senior care specialist that requested your imaging first. ? Narrative 09/30/2023 1:14 PM EDT EXAMINATION: XR CHEST PA AND LATERAL (GENERIC) CLINICAL HISTORY: chest pain. (as entered by ordering provider in the order requisition) TECHNIQUE: PA and lateral views COMPARISON: None FINDINGS: Normal cardiomediastinal and hilar silhouettes. No focal consolidation. No pleural effusion. No pneumothorax. Procedure Note Claudia Pérez MD - 09/30/2023 EXAMINATION: XR CHEST PA AND LATERAL (GENERIC) CLINICAL HISTORY: chest pain. (as entered by ordering provider in theorder requisition) TECHNIQUE: PA and lateral views COMPARISON: None FINDINGS: Normal cardiomediastinal and hilar silhouettes. No focal consolidation.No pleural effusion. No pneumothorax. IMPRESSION No acute cardiopulmonary findings. Thank you for letting us participate in the care of this patient. If youare a health care provider and have any questions regarding this report,please contact the number below. For patients who have questions please contactthe health senior care specialist that requested your imaging first. Artie Ford MD IMG DX ORDERABLES * EKG 12 Lead (09/30/2023 12:39 PM EDT) Ventricular rate 94 BPM MUSE SYSTEM Atrial Rate 94 BPM MUSE SYSTEM P-R Interval 122 ms MUSE SYSTEM QRS Duration 84 ms MUSE SYSTEM Q-T Interval 350 ms MUSE SYSTEM QTC Calculated (Bezet) 437 ms MUSE SYSTEM Calculated P Davis 65 degrees MUSE SYSTEM Calculated R Davis 78 degrees MUSE SYSTEM Calculated T Davis 59 degrees MUSE SYSTEM INTERPRETATION Normal sinus rhythm Normal ECG No previous ECGs available Confirmed by MD Constantino Katharine (Monica) on 10/01/2023 3:51:58 PM MUSE SYSTEM 09/30/2023 12:3 9 PM EDT 10/01/2023 3:51 PM EDT Artie Ford MD ECG ORDERABLES MUSE SYSTEM documented in this encounter Visit Diagnoses Diagnosis Bacteremia due to Staphylococcus aureus- Primary Bacteremia Shortness of breath Sepsis, due to unspecified organism, unspecified whether acute organ dysfunction present Bacteremia due to Staphylococcus aureus Bacteremia documented in this encounter Admitting Diagnoses Diagnosis Bacteremia due to Staphylococcus aureus Bacteremia documented in this encounter Administered Medications Inactive Administered Medications - up to 3 most recent administrations Medication Order MAR Action Action Date Dose Rate Site acetaminophen (Tylenol) tablet 975 mg 975 mg, Oral, EVERY 6 HOURS PRN, Starting on Shannan 09/30/23 at 2010, Until 10/04/23 at 2031, Pain, Maximum dose of acetaminophen is 4,000 mg from all sources in 24 hours. When ordered for pain, acetaminophen should be given even when other ordered pain medications are indicated., Routine Given 10/03/2023 7:25 PM EDT 975 mg Given 10/03/2023 5:56 AM EDT 975 mg Given 10/02/2023 9:30 PM EDT 975 mg buprenorphine-naloxone (Suboxone) sublingual tablet 12 mg of opiate 12 mg of opiate, Sublingual, 2 TIMES DAILY, First dose on Shannan 09/30/23 at 2100, Until Discontinued, Routine, Is patient on buprenorphine as an outpatient? Yes- prescribed Given 10/04/2023 9:06 AM EDT 12 mg of opiate Given 10/03/2023 9:37 PM EDT 12 mg of opiate Given 10/03/2023 8:51 AM EDT 12 mg of opiate ceFAZolin (Ancef) 2 g vial attach to sodium chloride 0.9% 100 mL Mini-Bag Plus 2 g, Intravenous, EVERY 8 HOURS, First dose on 10/03/23 at 1400, Until Discontinued, Administer over 30 Minutes, Indication for (Active or Suspected): Bacteremia/Sepsis New Bag 10/04/2023 2:11 PM EDT 2 g 2 00 mL/hr New Bag 10/04/2023 5:53 AM EDT 2 g 200 mL/hr New Bag 10/03/2023 9:34 PM EDT 2 g 200 mL/hr cefTRIAXone (Rocephin) 2 g vial attach to sodium chloride 0.9% 50 mL Mini-Bag Plus 2 g, Intravenous, ONCE, 1 dose, On Shannan 09/30/23 at 1506, Administer over 30 Minutes, Indication for (Active or Suspected): Skin/Skin Structure New Bag 09/30/2023 3:29 PM EDT 2 g 100 mL/hr enoxaparin (Lovenox) (40 mg/0.4 mL) subcutaneous injection 40 mg 40 mg, Subcutaneous, NIGHTLY, First dose on Shannan 09/30/23 at 2100, Until Discontinued, Routine Given 10/03/2023 9:34 PM EDT 40 mg Given 10/02/2023 9:24 PM EDT 40 mg Given 10/01/2023 8:47 PM EDT 40 mg ibuprofen (Advil) tablet 600 mg 600 mg, Oral, EVERY 6 HOURS PRN, Starting on 10/02/23 at 2146, Until 10/03/23 at 1947, Pain, Administer orally with milk or food to minimize GI irritation. Maximum dose of 3,200 mg from all sources in 24 hours, Routine Given 10/03/2023 7:26 PM EDT 600 mg Given 10/03/2023 5:56 AM EDT 600 mg Given 10/02/2023 10:12 PM EDT 600 mg iohexoL (Omnipaque) (350 mg/mL) solution 0-200 mL 0-200 mL, Intravenous, ONCE PRN, 1 dose, Starting on Shannan 09/30/23 at 1759, Until Shannan 09/30/23 at 1759, Per Protocol, Warning Vesicant/Irritant Medication , Radiology Contrast, Routine Given 09/30/2023 5:59 PM EDT 110 mLs iohexoL (Omnipaque) (350 mg/mL) solution 0-200 mL 0-200 mL, Intravenous, ONCE PRN, 1 dose, Starting on Shannan 09/30/23 at 1947, Until Shannan 09/30/23 at 1947, Per Protocol, Warning Vesicant/Irritant Medication , Radiology Contrast, Routine Given 09/30/2023 7:47 PM EDT 90 mLs ketorolac (Toradol) (15 mg/mL) injection 15 mg 15 mg, Intravenous, EVERY 6 HOURS PRN, Starting on Wed10/03/23 at 2200, Until 10/04/23 at 2032, Pain, 2nd line after tylenol, Routine Given 10/04/2023 1:17 PM EDT 15 mg Given 10/04/2023 5:49 AM EDT 15 mg Given 10/03/2023 9:38 PM EDT 15 mg nicotine (Nicoderm CQ) 21 mg/24 hr patch 21 mg 21 mg (1 patch), Transdermal, Administer over 24 Hours, DAILY, First dose on Wed09/30/23 at 1515, Until Discontinued, Apply new patch to clean, dry, hair-free skin on the upper body or upper outer arm; each patch should be applied to a different site., Routine nicotine (Nicoderm CQ) 21 mg/24 hr patch Patch Verification Transdermal, 2 TIMES DAILY, First dose on Wed10/01/23 at 0314, Until Discontinued, Verify nicotine 21 mg/24 hr patch sodium chloride 0.9 % (flush) (BD PosiFlush Normal Saline 0.9) flush 5 mL 5 mL, Intravenous, 2 TIMES DAILY, First dose on Shannan 09/30/23 at 2100, Until Discontinued, Routine Given 10/04/2023 9:05 AM EDT 5 mLs Given 10/03/2023 9:34 PM EDT 5 mLs Given 10/03/2023 8:52 AM EDT 5 mLs vancomycin (Vancocin) 1.25 gram in sodium chloride 0.9% 250 mL infusion 1.25 g, Intravenous, at 200 mL/hr, EVERY 8 HOURS, First dose (after last modification) on Sat 24 at 1400, Until Discontinued, Maximum infusion rate is 1 gram/hour. If flushing of the face, neck, upper body, arms, and/or back occurs decrease infusion rate by 50% to reduce the severity of symptoms. This medication may have an associated drug lab level. Please see MAR for scheduled level. Warning Vesicant/Irritant Medication , Routine, Indication for (Active or Suspected): Skin/Skin Structure New Bag 10/03/2023 6:19 AM EDT 1.25 g 200 mL/hr New Bag 10/02/2023 10:32 PM EDT 1.25 g 200 mL/hr New Bag 10/02/2023 2:47 PM EDT 1.25 g 200 mL/hr vancomycin (Vancocin) 1.5 gram in sodium chloride 0.9% 500 mL infusion 1.5 g, Intravenous, at 333.3 mL/hr, EVERY 12 HOURS, First dose on Wed10/01/23 at 0400, Until Discontinued, Maximum infusion rate is 1 gram/hour. If flushing of the face, neck, upper body, arms, and/or back occurs decrease infusion rate by 50% to reduce the severity of symptoms. This medication may have an associated drug lab level. Please see MAR for scheduled level. Warning Vesicant/Irritant Medication , Routine, Indication for (Active or Suspected): Skin/Skin Structure New 10/02/2023 3:58 AM EDT 1.5 g 333.3 mL/hr New 10/01/2023 4:26 PM EDT 1.5 g 333.3 mL/hr New 10/01/2023 3:49 AM EDT 1.5 g 333.3 mL/hr vancomycin (Vancocin) 1.75 gram in sodium chloride 0.9% 500 mL infusion 1,750 mg (1.75 g), Intravenous, at 250 mL/hr, ONCE, 1 dose, On Wed09/30/23 at 1527, Maximum infusion rate is 1 gram/hour. If flushing of the face, neck, upper body, arms, and/or back occurs decrease infusion rate by 50% to reduce the severity of symptoms. This medication may have an associated drug lab level. Please see MAR for scheduled level. Warning Vesicant/Irritant Medication , STAT, Indication for (Active or Suspected): Skin/Skin Structure Given 09/30/2023 4:33 PM EDT 1,750 mg 250 mL/hr documented in this encounter Active and Recently Administered Medications Times are shown in EDT. Scheduled Medication Order 10/02/2023 10/03/2023 10/04/2023 buprenorphine-naloxone (Suboxone) sublingual tablet 12 mg of opiate 12 mg of opiate, Sublingual, 2 TIMES DAILY, First dose on Shannan 09/30/23 at 2100, Until Discontinued, Routine, Is patient on buprenorphine as an outpatient? Yes- prescribed 845 (Given - Provider: Waleska Cline RN)2123 (Given - Provider: Sakina Knowles RN) 0851 (Given - Provider: Lubna Escalante RN)2136 (Given - Provider: Parmjit Allen, DAVID) 0906 (Given - Provider: Roma Valdez RN) ceFAZolin (Ancef) 2 g vial attach to sodium chloride 0.9% 100 mL Mini-Bag Plus 2 g, Intravenous, EVERY 8 HOURS, First dose on [place] 10/03/23 at 1400, Until Discontinued, Administer over 30 Minutes, Indication for (Active or Suspected): Bacteremia/Sepsis 1323 (New Bag - Provider: Lubna Escalante RN)1353 (Stopped - Provider: Lubna Escalante RN)213 (New Bag - Provider: Parmjit Allen RN)2204 (Stopped - Provider: Parmjit Allen RN) 0553 (New Bag - Provider: Parmjit Allen RN)0623 (Stopped - Provider: Parmjit Allen RN)1411 (New Bag - Provider: Roma Valdez RN)1512 (Stopped - Provider: Roma Valdez RN) enoxaparin (Lovenox) (40 mg/0.4 mL) subcutaneous injection 40 mg 40 mg, Subcutaneous, NIGHTLY, First dose on Shannan 09/30/23 at 2100, Until Discontinued, Routine 2123 (Given - Provider: Sakina Knowles RN) 2133 (Given - Provider: Parmjit Allen RN) nicotine (Nicoderm CQ) 21 mg/24 hr patch 21 mg(Linked Group 1) 21 mg (1 patch), Transdermal, Administer over 24 Hours, DAILY, First dose on Wed09/30/23 at 1515, Until Discontinued, Apply new patch to clean, dry, hair-free skin on the upper body or upper outer arm; each patch should be applied to a different site., Routine 09 (Not Given - Provider: Waleska Cline RN - Reason: Patient/family refused) 899 (Not Given - Provider: Lubna Escalante RN - Reason: Patient/family refused) 904 (Not Given - Provider: Roma Valdez RN - Reason: Patient/family refused) nicotine (Nicoderm CQ) 21 mg/24 hr patch Patch Verification(Linked Group 1) Transdermal, 2 TIMES DAILY, First dose on Wed10/01/23 at 0314, Until Discontinued, Verify nicotine 21 mg/24 hr patch 899 (Not Given - Provider: Waleska Cline RN - Reason: Patient/family refused)2123 (Patch Not Verified (add comment) - Provider: Sakina Knowles RN) 899 (Not Given - Provider: Lubna Escalante RN - Reason: Patient/family refused)2100 (Patch Not Verified (add comment) - Provider: Parmjit Allen RN) 899 (Not Given - Provider: Roma Valdez RN - Reason: Patient/family refused) sodium chloride 0.9 % (flush) (BD PosiFlush Normal Saline 0.9) flush 5 mL 5 mL, Intravenous, 2 TIMES DAILY, First dose on Wed09/30/23 at 2100, Until Discontinued, Routine 08 (Given - Provider: Waleska Cline RN)2123 (Given - Provider: Sakina Knowles RN) 851 (Given - Provider: Lubna Escalante, DAVID)2133 (Given - Provider: Parmjit Allen, DAVID) 09 (Given - Provider: Roma Valdez, DAVID) vancomycin (Vancocin) 1.25 gram in sodium chloride 0.9% 250 mL infusion (CANCELED) 1.25 g, Intravenous, at 200 mL/hr, EVERY 8 HOURS, First dose (after last modification) on Wed10/02/23 at 1400, Until Discontinued, Maximum infusion rate is 1 gram/hour. If flushing of the face, neck, upper body, arms, and/or back occurs decrease infusion rate by 50% to reduce the severity of symptoms. This medication may have an associated drug lab level. Please see MAR for scheduled level. Warning Vesicant/Irritant Medication , Routine, Indication for (Active or Suspected): Skin/Skin Structure 1447 (New Bag - Provider: Waleska Cline RN)1602 (Stopped - Provider: Waleska Cline RN)2232 (New Bag - Provider: Sakina Knowles RN)2347 (Stopped - Provider: Sakina Knowles RN) 0619 (New Bag - Provider: Sakina Knowles RN)0734 (Stopped - Provider: Lubna Escalante RN) vancomycin (Vancocin) 1.5 gram in sodium chloride 0.9% 500 mL infusion (CANCELED) 1.5 g, Intravenous, at 333.3 mL/hr, EVERY 12 HOURS, First dose on Wed10/01/23 at 0400, Until Discontinued, Maximum infusion rate is 1 gram/hour. If flushing of the face, neck, upper body, arms, and/or back occurs decrease infusion rate by 50% to reduce the severity of symptoms. This medication may have an associated drug lab level. Please see MAR for scheduled level. Warning Vesicant/Irritant Medication , Routine, Indication for (Active or Suspected): Skin/Skin Structure 0358 (New Bag - Provider: Romario Parra RN)0528 (Stopped - Provider: Romario Parra RN) PRN Medication Order 10/02/2023 10/03/2023 10/04/2023 acetaminophen (Tylenol) tablet 975 mg 975 mg, Oral, EVERY 6 HOURS PRN, Starting on Shannan 09/30/23 at 2010, Until 10/04/23 at 2031, Pain, Maximum dose of acetaminophen is 4,000 mg from all sources in 24 hours. When ordered for pain, acetaminophen should be given even when other ordered pain medications are indicated., Routine 1443 (Given - Provider: Waleska Cline RN - Comment: in prep for wound dressing change)2130 (Given - Provider: Sakina Knowles RN) 0556 (Given - Provider: Sakina Knowles RN)1925 (Given - Provider: Lubna Escalante, RN) ibuprofen (Advil) tablet 600 mg (CANCELED) 600 mg, Oral, EVERY 6 HOURS PRN, Starting on 10/02/23 at 2146, Until 10/03/23 at 1947, Pain, Administer orally with milk or food to minimize GI irritation. Maximum dose of 3,200 mg from all sources in 24 hours, Routine 2212 (Given - Provider: Sakina Knowles RN) 0556 (Given - Provider: Sakina Knowles RN)1926 (Given - Provider: Lubna Escalante, RN) ketorolac (Toradol) (15 mg/mL) injection 15 mg 15 mg, Intravenous, EVERY 6 HOURS PRN, Starting on 10/03/23 at 2200, Until 10/04/23 at 2031, Pain, 2nd line after tylenol, Routine 2137 (Given - Provider: Parmjit Allen RN) 0549 (Given - Provider: Parmjit Allen RN)1317 (Given - Provider: Roma Valdez RN - Comment: Pt refused tylenol, requested torafol prior to dressing change) lidocaine (Xylocaine) 1% (10 mg/mL) injection 3 mg 3 mg (0.3 mL), Subcutaneous, ONCE PRN, 1 dose, Starting on Shannan 09/30/23 at 2010, Until Wed10/04/23 at 2031, for discomfort with PIV insertion, Routine sodium chloride 0.9 % (flush) (BD PosiFlush Normal Saline 0.9) flush 5-20 mL 5-20 mL, Intravenous, EVERY 1 MIN PRN, Starting on Shannan 09/30/23 at 2010, Until Wed10/04/23 at 2031, flush, Flush pertains to all indwelling lines. Flush per protocol found in the job aid using the link provided on this medication record., Routine Linked Groups Order Group 1: nicotine (Nicoderm CQ) 21 mg/24 hr patch 21 mgJump to med 21 mg (1 patch), Transdermal, Administer over 24 Hours, DAILY, First dose on Shannan 09/30/23 at 1515, Until Discontinued, Apply new patch to clean, dry, hair-free skin on the upper body or upper outer arm; each patch should be applied to a different site., Routine And nicotine (Nicoderm CQ) 21 mg/24 hr patch Patch VerificationJump to med Transdermal, 2 TIMES DAILY, First dose on Wed10/01/23 at 0314, Until Discontinued, Verify nicotine 21 mg/24 hr patch documented in this encounter Care Teams Senior Net Developer Architect Relationship Specialty Start Date End Date Milo Baer MD [address] [place] [address] [place] [address] PCP - [facility] Medicine 04/08/23 11/30/23 documented as of this encounter
--- OUTSIDE RECORDS SUMMARY | 2024-07-02 14:29 | XMS_ITS | Encounter Summary ---
[place] [address] Care Team Providers Care Oil Burner Name Role Phone Milo Baer MD Primary Care Provider Reason for Referral * Consultation (Routine) - Closed Specialty Diagnoses / Procedures Referred By Betzy beltran Referred To Contact Otolaryngology Diagnoses Chronic rhinitis Roney Ordoñez MD [address] [place] [address] [place] [address] [facility] [address] [place] [phone] Referral ID Status Reason Start Date Expiration Date V isits Requested Visits Authorized [id number] Closed Consult, Test & Treat PCP Updated and/or Approved 04/08/2023 04/07/2024 6 6 Encounter Details Date Type Department Care Team (Late st Contact Info) Description 04/08/2023 Transcribe Orders eDH Incoming Referrals [phone] Roney Ordoñez MD [address] [place] [address] [address] [place], [place] [id number] Chronic rhinitis Social History Tobacco Use Types Packs/Day Years Used Date Smoking Tobacco: Never Assessed Sex and Gender Information Value Date Recorded Sex Assigned at Not on file Gender Identity Not on file Sexual Orientation Not on file documented as of this encounter Plan of Treatment Upcoming Encounters Date Type Department Care Team (Late st Contact Info) Description 08/01/2024 8:30 AM EST Office [place] [phone] Denae Wilson MD [facility] [place] [address] Scheduled Referrals Name Type Priority Associated Diagnoses Orde r Schedule Referral to ENT Outpatient Referral Routine Chronic rhinitis Ordered: 04/08/2023 documented as of this encounter Visit Diagnoses Diagnosis Chronic rhinitis documented in this encounter Care Teams Oil Burner Relationship Specialty Start Date End Date Milo Baer MD [address] [place] [address] [place] [address] PCP - [facility] Medicine 04/08/23 11/30/23 documented as of this encounter
--- OUTSIDE RECORDS SUMMARY | 2024-07-02 14:29 | XMS_ITS | Encounter Summary ---
Author Organization Formerly [facility] [place] [address] Care Team Providers [employer] Name Role Phone Milo Baer MD Primary Care Provider [phone] Reason for Visit * Reason Comments Leg Swelling * Auth/Cert (Routine) Specialty Diagnoses / Procedures Referred By Contac t Referred To Contact Diagnoses Leg swelling Procedures EMERGENCY [facility] [place] [address] [facility] Referral ID Status Reason Start Date Expiration Date Visits Re quested Visits Authorized [id number] 1 1 Encounter Details Date Type Department Care Team (Latest Contact Info) Description 10/28/2023 8:16 AM EDT - 10/31/2023 2:41 PM EDT Hospital Encounter Hematology/Oncolog y Unit Level 1 [place] [id number] Leatha Finn MD [facility] [place] [address] Anabell Sethi MD [facility] [address] [place] [address] [place] [address] Leg swelling (Primary Dx); Bacteremia due to Staphylococcus aureus Discharge Disposition: Against Medical Advice Social History Tobacco Use Types Packs/Day Years Used Date Smoking Tobacco: Every Day Cigarettes Smokeless Tobacco: Never Alcohol Use Standard Drinks/Week Comments Not Currently 0 (1 standard drink = 0.6 oz pur e alcohol) [facility] Utilities Answer Date Recorded In [...] place to sleep or slept in a residential (including now)? No 11/01/2023 DH IPV Inpatient [...] Sign Reading Time Taken Comments Blood Pressure 151/90 10/31/2023 11:39 AM EDT Pulse 80 10/28/2023 5:07 PM EDT Temperature 37 ??C (98.6 ??F) 10/31/2023 11:39 AM EDT Respiratory Rate 16 10/31/2023 11:39 AM EDT Oxygen Saturation 99% 10/31/2023 11:39 AM EDT Inhaled Oxygen Concentration - - Weight 88.6 kg (195 lb 5.2 oz) 10/28/2023 11:28 PM EDT Height 175.3 cm (5' 9) 10/28/2023 8:27 AM EDT Body Mass Index 28.84 10/28/2023 8:27 AM EDT documented in this encounter Discharge Summaries * Torri Rosenthal MD - 10/31/2023 2:41 PM EDT Discharge Summary Patient Name: Marcos Camejo Patient Age: 43 y.o. Language: Citizen Of [place] Race: White Ethnicity: Not nor Admit date: 10/28/2023 Discharge date and time: 10/31/2023 ~3:00pm Attending Physician: No att. providers found Follow-up Recommendations for Providers: 1) Patient left against medical advise with signs of persistent infection. Please monitor for signsof recurrent or worsening infection and if possible, ensure he completes a 7 day course of antibiotics for his non-purulent cellulitis 2) Pending MARIBEL for evaluation of endocarditis at time of discharge. If clinical worsening includingfevers, worsened fatigue/malaise, or s/s of IE please advise return to ED Discharge Diagnoses (Hospital Problems) and Secondary Diagnoses (Chronic Problems): Active Hospital Problems Diagnosis Leg swelling Resolved Hospital Problems No resolved problems to display. Active Non-Hospital Problems Diagnosis Bacteremia due to Staphylococcus aureus Operations/Major Procedures: N/a History of Presentation: Patient recently admitted on [...] team to discuss risks of AMA discharge. He now represents today with complaints of foot and hand swelling that has gotten worse over the past several days. In general he is not very interested in providing a history so timeline and additional details of history are unclear. He denies fevers, chills, cp, sob, n/v, lightheadedness, or passing out. He denies recent IVDU or injecting into his hands. He was upset when asked about his drug use and injection history. He reports that when he was injecting that he would into his shoulders. In the ER, he was hemodynamically stable and afebrile. He did not have a leukocytosis. His ESR was wnl but his CRP was elevated to 12.0. Elevated LFTs AST 195, ALT 191 but alk phos normal at 109. ProBNP 1432. Blood cultures were drawn and patient was started on Ancef as his prior abscess culture grew MSSA and was sensitive to it. CXR was concerning for cardiomegaly. A TTE was ordered and obtainedwhich compared to prior showed worse mitral and tricuspid regurg. No vegetations were noted and hissystolic function was preserved. He was admitted to medicine for further work up and evaluation of his cellulitis and regurgitation with concern for endocarditis. Hospital Course: #Bilateral upper extremity cellulitis #Fluid [...] left against medical advise in the afternoon. Vital Signs at Discharge: BP: 151/90, Heart Rate: 80, Temp: 37 ??C (98.6 ??F), Resp: 16, BMI (Calculated): 25.1 Height: 175.3 cm (5' 9) (10/28/23 0827) Weight: 88.6 kg (195 lb 5.2 oz) (10/28/23 3932) Functional and Cognitive Status: Fair Admission Diagnoses: Leg swelling [M79.89] Bacteremia due to Staphylococcus aureus [R78.81, B95.61] Discharge Diagnoses: Cellulitis Admission Condition: fair Indication for Admission: Cellulitis Consults: IP CONSULT TO PHARMACY IP CONSULT TO CARDIOLOGY IP CONSULT TO WOUND CARE TEAM IP CONSULT TO PSYCHIATRY IP CONSULT TO SOCIAL WORK Important Studies and Lab Data: Labs: Recent [...] CK, TROPONINT in the last 168 hours. Discharge Exam: General: Uncomfortable appearing man resistant to extensive evaluation this AM CV - RRR. No m/r/g Pulm - CTAB. No w/r/r Abd - NT/ND Extremities - Bilaterally swollen hands. Skin breakdown bilaterally. Lower extremities with trace edema. Diffuse necrotic skin lesions across bilateral upper and lower extremities. Discharge Conditions/Prognosis: fair Discharge to: home Updated Allergies/ADRs: Allergies Allergen Reactions Penicillins Hives Tolerated ceftriaxone 09/2023 Immunizations Given this Hospitalization: There is no immunization history on file for this patient. Discharge Medications: Your Medications UNREVIEWED medications - Discuss With Your Provider Dose Details ibuprofen 200 mg tablet Commonly known as: Advil Take 800 mg by mouth 2 times daily. 800 mg Refills: 0 Suboxone 12-[address] 2 Film under the tongue daily. Generic drug: buprenorphine-naloxone 2 Film Refills: 0 Vitamin D 1,000 unit tablet Take 1 tablet by mouth daily. Generic drug: cholecalciferol 1 tablet Refills: 0 Smoking Status at Discharge: Social History Tobacco [...] any issues or concerns once you leave [facility], we apologize for any undue stress [...] this encounter Discharge Instructions * Patient Instructions* Nikki Mancini CMA - 10/29/2023 3:37 PM EDT The Section of Hospital Medicine hopes [...] any issues or concerns once you leave [facility], we apologize for any undue stress [...] Date End Date naloxone (Narcan) 4 mg/actuation [place], Non-Aerosol 1 each by Intra-nasally route as [...] for 30 days. 15 tablet 11/02/2023 12/02/2023 cephALEXin (Keflex) 500 mg capsule Take 1 capsule by mouth 4 times daily for 10 days. 40 capsule 11/02/2023 11/02/2023 furosemide (Lasix) 20 mg tablet Take 0.5 tablets by mouth daily for 30 days. 15 tablet 11/02/2023 11/02/2023 ibuprofen (Advil) 200 mg tablet Take 800 mg by mouth 2 times daily. 11/02/2023 documented as of this encounter Progress Notes * Mary Bethea RN - 10/31/2023 2:41 PM EDT Pt VSS. A&Ox4. Pt sleeping in bed this morning and afternoon. Generalized aches noted, no pain medications requested. Denies any numbness/tingling, SOB, chest pain or nausea. Pt notably restless in bed. Scheduled oral Suboxone given this morning. Oral potassium given this AM for level of 3.4. Continues to score on COWs assessment. Significant other at bedside this afternoon. Pt tolerating PO i ntake. IV abx given per SEP. Pt verbalizing several times I just want to be left alone. Care clustered and noise level limited to allow for rest and relaxation. Around 1400, significant other verbalized that pt was going to leave. Went in and spoke with pt who states he wants to go home. MD pagedand at bedside to assess pt. Oral ativan and tizanidine offered to pt but declined. PIV removed viapatient. Site benign. Pt signed AMA paperwork and left with significant other. * Mary Bethea RN - 10/31/2023 2:41 PM EDT Received phone call from pt's mother. Informed mother that pt left hospital. Pts mom expressing concern for pt safety stating he just texted me for money. And that when she was visiting yesterday he stated to her that he wanted to . Mother unsure if anyone was aware of that conversation yesterday. Mother asking if pt can go to a psych unit here. Advised her that the psych unit is voluntary admission. Advised her if she is worried for patients safety/well being, then she can call 911 to have a wellness check performed. Reiterated pt can present back to ED anytime as well. Message sent to resident to inform her of conversation above. * Torri Rosenthal MD - 10/31/2023 6:40 AM EDT MEDICINE PAGER [phone] - [facility] Daily Progress Note Page [phone] to reach a provider 08/02 Admit Date: 10/28/2023 Encounter Date: October 31, 2023 Anticipated Discharge Date: 11/05/2023 Hospital Day: 3 24 Hour Events/Subjective: - Diuresed held yesterday - Psych eval overnight for symptoms of withdrawal - has been refusing suboxone (feels put him into withdrawal last time) - Upper extremity sores likely related to xyalxine (pt confirms on report) - Continue suboxone daily - Add tizanidine for xylaxine withdrawal - HR to 130 last afternoon, normalized after clonidine - Pt w ongoing pain, nausea, diarrhea this AM. Feels awful - Increased suboxone to home 24mg daily following discussion with pharmacy. Objective: Last value Range last 24 hrs Temp: 36.7 ??C (98.1 ??F) Temp: [36.7 ??C (98.1 ??F)-36.9 ??C (98.4 ??F)] Heart Rate: 80 Heart Rate from SpO2: 76 bpm Heart Rate: -- BP: 139/67 BP: (125-144)/(64-88) Resp: 18 Resp: [16-18] SpO2: 96 % SpO2: [96 %-99 %] Height: 175.3 cm (5' 9) Weight: 88.6 kg (195 lb 5.2 oz) BMI (Calculated): 25.1 BMI Classification: Over Weight Intake/Output Summary (Last 24 hours) at 10/31/2023 0640 Last data filed at 10/31/2023 0400 Gross per 24 hour Intake 350 ml Output 3700 ml Net -3350 ml Patient Vitals for the past 72 hrs: Weight 10/28/23 2328 88.6 kg (195 lb 5.2 oz) 10/28/23 0827 77.1 kg (170 lb) EXAM: General: Uncomfortable appearing man resistant to extensive evaluation this AM CV - RRR. No m/r/g Pulm - CTAB. No w/r/r Abd - NT/ND Extremities - Bilaterally swollen hands. Skin breakdown bilaterally. Lower extremities with trace edema. Recent Labs 10/31/23 03010/30/23 0951 10/29/23 0349 [...] 0951 10/29/23 0349 CALCIUM 8.2* 8.3* 8.0* Lab Results Component Value Date PROBNP 1,432 (H) 10/28/2023 Lab Results Component Value Date SEDRATE 8 10/28/2023 CRP (mg/L) Date Value 10/28/2023 12.0 (H) 10/03/2023 5.7 (H) 10/02/2023 8.0 (H) 10/01/2023 10.3 (H) 09/30/2023 17.7 (H) No results for input(s): PT, INR, PTT in the last 168 hours. No results for input(s): CK, TROPONINT in the last 168 hours. Lab Results Component Value Date UBARBSCRN None Detected 10/28/2023 UBENZOSCRN None Detected 10/28/2023 UCOCAINESCR Presumptive Pos (A) 10/28/2023 UMETHMETSCRN None Detected 10/28/2023 UOPIATESCRN None Detected 10/28/2023 UCANNABSCRN Presumptive Pos (A) 10/28/2023 UOXYSCRN None Detected 10/28/2023 UBUPRENORPHN None Detected 10/28/2023 UFENTANYLSCR Presumptive Pos (A) 10/28/2023 UTRICYCLICS None Detected 10/28/2023 UETHANOLSCRN None Detected 10/28/2023 UAMPHETAMIN Presumptive Pos (A) 10/28/2023 SVTUADULTER None Detected 10/28/2023 Micro: BC 10/01 - clear BC 10/27 - NGTD Hep C viral load 438,000 No results found for this visit on 10/28/23 (from the past 24 hour(s)). TTE 10/27: Left ventricle is of normal size. Wall [...] are visualized. Consider MARIBEL, if clinically indicated. Mod MR, mod-severe TR CONSULTANTS: IP CONSULT TO PHARMACY IP ADMISSION REQUEST IP CONSULT TO PHARMACY IP CONSULT TO CARDIOLOGY IP CONSULT TO WOUND CARE TEAM IP CONSULT TO PSYCHIATRY IP CONSULT TO SOCIAL WORK Assessment: 43 year old male with a past medical history of IVDU (methamphetamine, opiates), OUD (on Suboxone),untreated Hep C, recently admitted for bilateral hand cellulitis MSSA+ who presents for bilateral hand and foot swelling c/f cellulitis +/- volume overload. 10/31/2023 Overall stable today, blood cultures NGTD at 48 hours. Pending cards eval for MARIBEL tomorrow given worsened MR/TR on TTE, well over goal of net negative 1-2L daily. Ongoing c/f withdrawal from opiates as well as xylazine. COWS scale and PRN tidanidine added. Amenable to suboxone this AM. Otherwise, will continue IV abx for now and consider transition to PO if BC remain negative tomorrow. Plan: #B/l hand Cellulitis #C/F Endocarditis -Continue Ancef 2g Q8hr for now -Follow up blood culture -Transition to orals if blood culture negative prior to discharge #Elevated LFTs #C/f congestive hepatopathy #Hep C -RUQ ultrasound - normal -Outpatient Hep C treatment #Tricuspid Regurgitation #Mitral Regurgitation #Elevated proBNP #Bilateral lower extremity swelling worse on left than right - Consider cards consult if no improvement with diuresis - MARIBEL tentatively scheduled Wednesday - Spot diuresis to goal net negative 1-2L daily #OUD #History of IVDU -Continue Subuxone 12mg BID for now Diet: Regular diet NPO diet (Give Meds) Last BM documented: 10/30/23 DVT Prophylaxis: LMWH Daily Checklist: Last Family Communication: Per patient Discharge Location: AM-PAC Basic Mobility Raw Score: 24 PT: OT: Code status Attempt Cardiopulmonary Resuscitation - Inpatient PCP Milo Baer MD [phone] Active Hospital Problems Diagnosis Leg swelling Resolved Hospital Problems No resolved problems to display. Torri Rosenthal MD PGY-1 Red Team Pager [phone] Associated attestation - Zachary Camp MD - 10/31/2023 9:41 PM EDT Hospital Medicine - Attending Day of Discharge Documentation Discharge diagnosis Active Hospital Problems Diagnosis Leg swelling Resolved Hospital Problems No resolved problems to display. Secondary Issues Active Non-Hospital Problems Diagnosis Bacteremia due to Staphylococcus aureus I had seen Marcos earlier in the day, he was calm but uncomfortable, endorsed symptoms of withdrawal, I encouraged him to request PRNs as frequently as he needed them to treat his symptoms. He ultimately decided to leave against medical advice later in the day. A MARIBEL was not obtained yet but overall suspicion for IE was low given no bacterial growth on cultures to date. Will send prescription forantibiotics to at least finish treatment course for cellulitis; but unclear when asked if he will actually picker / packer supply. Encouraged to return to ED. I spent <30 minutes (Day of Discharge Code 93168) involved in the final examination of the patient, discussion of the hospital stay, instructions for continuing care to all relevant caregivers, and preparation of discharge records, prescriptions and referral forms. Zachary Camp MD 10/31/2023 * Tang Garcia RN - 10/30/2023 7:42 PM EDT OUTCOME EVALUATION NOTE: OUTCOME SUMMARY: Pt A&Ox4, VSS, on RA. IV abx infused per SEP. Pt ambulating independently, up ad sebas. Pt reporting 10/10 pain in his BLE, PRN tylenol given x1 with good effect, Pt scoring on COWS assessment, PRNAtivan Q4, given per SEP. Pt able to void, no BM overnight. FS ACHS. Pt resting in between nursing care. PLAN MOVING FORWARD: NPO midnight Wednesday for possible MARIBEL Wednesday Blood cx results pending Cefazolin Q8 RUQ ultrasound- complete Monitor output Outpatient hep C management INDIVIDUALIZED FALL PREVENTION INTERVENTIONS: Patient-specific fall risk factors per assessment: [current deficits]: Hospital environment, IV access, tubing/lines/drains Assistance [level of assistance required for transfers and ambulation]: Ind Supervision [direct monitoring required during toileting and ADLs]: Eyes on Surveillance [continuous indirect monitoring]: Masimo, purposeful rounding, call banda in reach, room near nursing station Patient-specific fall prevention interventions for sensory deficits provided, if applicable: [X] N/A CARE PLAN GOAL OUTCOME EVALUATION: Ongoing * Mariam Cueto LPN - 10/30/2023 4:56 PM EDT OUTCOME EVALUATION NOTE: OUTCOME SUMMARY: A&Ox4, VSS on . tachy ambulating to bathroom x1. Pt nauseous and feeling shakyMD at bedsideto assess. IV zofran administered per SEP with good effect. Blood glucose checked before meals, insulin administered per SEP. IV abx administered per SEP. Pt refused AM suboxone, suboxone discontinued this afternoon. Consult to psych and BIT. No complaints of pain this shift. Friend at bedside for support, resting between care. PLAN MOVING FORWARD: NPO midnight Wednesday for possible MARIBEL Wednesday Blood cx results pending Cefazolin Q8 RUQ ultrasound- complete Monitor output Outpatient hep C management INDIVIDUALIZED FALL PREVENTION INTERVENTIONS: Patient-specific fall risk factors per assessment: [current deficits]: Hospital environment, IV access Assistance [level of assistance required for transfers and ambulation]: IND Supervision [direct monitoring required during toileting and ADLs]: eyes on Surveillance [continuous indirect monitoring]: Masimo, hourly safety rounding, room near nursing station, call banda within reach Patient-specific fall prevention interventions for sensory deficits provided, if applicable: [X] N/A CPG GOAL OUTCOME EVALUATION: * Garry Ortiz MD - 10/30/2023 10:26 AM EDT MEDICINE PAGER [phone] - [facility] Daily Progress Note Page [phone] to reach a provider 08/02 Admit Date: 10/28/2023 Encounter Date: October 30, 2023 Anticipated Discharge Date: 11/05/2023 Hospital Day: 2 24 Hour Events/Subjective: - Diuresed nicely yesterday, ~5L, Swelling much better this AM - Hand swelling also looking better - Patient has no complaints - Pending formal cardio eval for MARIBEL - Blood cultures NGTD at 24 hours Objective: Last value Range last 24 hrs Temp: 36.8 ??C (98.2 ??F) Temp: [36.6 ??C (97.9 ??F)-37 ??C (98.6 ??F)] Heart Rate: 80 Heart Rate from SpO2: 72 bpm Heart Rate: -- BP: 126/88 BP: (114-145)/(65-91) Resp: 16 Resp: [15-16] SpO2: 99 % SpO2: [95 %-99 %] Height: 175.3 cm (5' 9) Weight: 88.6 kg (195 lb 5.2 oz) BMI (Calculated): 25.1 BMI Classification: Over Weight Intake/Output Summary (Last 24 hours) at 10/30/2023 1029 Last data filed at 10/30/2023 0824 Gross per 24 hour Intake 1190 ml Output 6350 ml Net -5160 ml Patient Vitals for the past 72 hrs: Weight 10/28/23 2328 88.6 kg (195 lb 5.2 oz) 10/28/23 0827 77.1 kg (170 lb) EXAM: General: Well appearing man in no apparent distress CV - RRR. No m/r/g Pulm - CTAB. No w/r/r Abd - NT/ND Extremities - Bilaterally hard and swollen hands. Skin breakdown bilaterally. Lower extremities with trace edema. Recent Labs 10/30/23 0951 10/29/23 03410/28/23 1040 WBC 5.5 6.6 6.6 HGB 10.4* 9.5* 9.7* HCT 32.2* 28.9* 29.3* PLATELET 226 239 244 Recent Labs 10/29/23 0349 10/28/23 1040 NA 139 138 K 4.0 3.9 CL 104 102 CO2 28 29 BUN 16 16 CREATININE 0.82 0.71* Recent Labs 10/29/23 0349 10/28/23 1040 AST 172* 195* ALT 178* 191* ALKPHOS 103 109 BILITOT 0.3 0.3 BILIDIR 0.1 -- Recent Labs 10/29/23 03410/28/23 1040 CALCIUM 8.0* 8.5 Lab Results Component Value Date PROBNP 1,432 (H) 10/28/2023 Lab Results Component Value Date CRP 12.0 (H) 10/28/2023 Lab Results Component Value Date SEDRATE 8 10/28/2023 No results for input(s): PT, INR, PTT in the last 168 hours. No results for input(s): CK, TROPONINT in the last 168 hours. Lab Results Component Value Date UBARBSCRN None Detected 10/28/2023 UBENZOSCRN None Detected 10/28/2023 UCOCAINESCR Presumptive Pos (A) 10/28/2023 UMETHMETSCRN None Detected 10/28/2023 UOPIATESCRN None Detected 10/28/2023 UCANNABSCRN Presumptive Pos (A) 10/28/2023 UOXYSCRN None Detected 10/28/2023 UBUPRENORPHN None Detected 10/28/2023 UFENTANYLSCR Presumptive Pos (A) 10/28/2023 UTRICYCLICS None Detected 10/28/2023 UETHANOLSCRN None Detected 10/28/2023 UAMPHETAMIN Presumptive Pos (A) 10/28/2023 SVTUADULTER None Detected 10/28/2023 Micro: BC 10/01 - clear BC 10/27 - NGTD No results found for this visit on 10/28/23 (from the past 24 hour(s)). CONSULTANTS: IP CONSULT TO PHARMACY IP ADMISSION REQUEST IP CONSULT TO PHARMACY IP CONSULT TO CARDIOLOGY IP CONSULT TO WOUND CARE TEAM Assessment: 43 year old male with a past medical history of IVDU (methamphetamine, opiates), OUD (on Suboxone),untreated Hep C, recently admitted for bilateral hand cellulitis MSSA+ who presents for bilateral hand and foot swelling c/f cellulitis +/- volume overload. 10/30/2023 Overall stable today, blood cultures NGTD at 24 hours. Will hold diuresis today. Pending cardiologyeval for MARIBEL. For now, will maintain on IV abx with cefazolin, consider PO conversion if stable prior to discharge. Plan: #B/l hand Cellulitis #C/F Endocarditis -Continue Ancef 2g Q8hr for now -Follow up blood culture -Transition to orals if blood culture negative prior to discharge #Elevated LFTs #C/f congestive hepatopathy #Hep C -RUQ ultrasound - normal -Outpatient Hep C treatment -Follow up Lfts today #Tricuspid Regurgitation #Mitral Regurgitation #Elevated proBNP #Bilateral lower extremity swelling worse on left than right - Consider cards consult if no improvement with diuresis - MARIBEL tentatively scheduled Wednesday - Spot diuresis to goal net negative 1-2L daily #OUD #History of IVDU -Continue Subuxone 12mg BID for now Diet: Regular diet NPO diet (Give Meds) Last BM documented: 10/29/23 DVT Prophylaxis: LMWH Daily Checklist: Last Family Communication: Per patient Discharge Location: AM-PAC Basic Mobility Raw Score: 24 PT: OT: Code status Attempt Cardiopulmonary Resuscitation - Inpatient PCP Milo Baer MD [phone] Active Hospital Problems Diagnosis Leg swelling Resolved Hospital Problems No resolved problems to display. Torri Rosenthal MD PGY-3 Red Team Pager [phone] Associated attestation - Zachary Camp MD - 10/31/2023 8:14 AM EDT Attending Attestation and Certification Please see Garry Ortiz MD's note for details of the patient [...] of two midnights or is on the [facility] inpatient only procedure list (status C) due to: opioid withdrawal, r/o infective endocarditis. Zachary Camp MD [facility] Medicine 10.30.2023 * Anatoliy Rivera V - 10/30/2023 7:01 AM EDT MEDICINE PAGER [phone] - [facility] Daily Progress Note Page [phone] to reach a provider 08/02 Admit Date: 10/28/2023 Encounter Date: October 30, 2023 Anticipated Discharge Date: 11/05/2023 Hospital Day: 2 ID: Marcos Camejo is a 43 y.o. male with PMH of recent admission for MSSA bacteremia and cellulitis in the setting of IVDU (methamphetamine, opiates), OUD (on Suboxone), PTSD, Hep C, who presented to the ED on 10/27 with upper and lower extremity and genital swelling, SOB, leg pain, multiple sores and cuts on both hands and overall ill feeling. 24 Hour Events/Subjective: Yesterday - Blood cultures showed no growth at this time - Continued on Ancef 2g IV - ordered cardio consult for tricuspid/mitral valve regurg and possible endocarditis - One dose lasix 20mg IV - Patient reporting difficulty voiding, bladder scan showed 397ml, patient able to void 325ml before cath ON - Stable VS - 04/27 pain in the BLE, symptomatic relief with Tylenol PRN This AM - stable VS - Continued diureses Objective: Last value Range last 24 hrs Temp: 36.8 ??C (98.2 ??F) Temp: [36.6 ??C (97.9 ??F)-37 ??C (98.6 ??F)] Heart Rate: 80 Heart Rate from SpO2: 72 bpm Heart Rate: -- BP: 126/88 BP: (114-145)/(65-91) Resp: 16 Resp: [15-16] SpO2: 99 % SpO2: [95 %-99 %] Height: 175.3 cm (5' 9) Weight: 88.6 kg (195 lb 5.2 oz) BMI (Calculated): 25.1 BMI Classification: Over Weight Intake/Output Summary (Last 24 hours) at 10/30/2023 1110 Last data filed at 10/30/2023 0824 Gross per 24 hour Intake 1190 ml Output 6350 ml Net -5160 ml Patient Vitals for the past 72 hrs: Weight 10/28/23 2328 88.6 kg (195 lb 5.2 oz) 10/28/23 0827 77.1 kg (170 lb) EXAM: Recent Labs 10/30/23 0951 10/29/23 0349 10/28/23 1040 WBC 5.5 6.6 6.6 HGB 10.4* 9.5* 9.7* HCT 32.2* 28.9* 29.3* PLATELET 226 239 244 Recent Labs 10/29/23 0349 10/28/23 1040 NA 139 138 K 4.0 3.9 CL 104 102 CO2 28 29 BUN 16 16 CREATININE 0.82 0.71* Recent Labs 10/29/23 0349 10/28/23 1040 AST 172* 195* ALT 178* 191* ALKPHOS 103 109 BILITOT 0.3 0.3 BILIDIR 0.1 -- Recent Labs 10/29/23 0349 10/28/23 1040 CALCIUM 8.0* 8.5 No results for input(s): PT, INR, PTT in the last 168 hours. No results for input(s): CK, TROPONINT in the last 168 hours. No results found for this visit on 10/28/23 (from the past 24 hour(s)). CONSULTANTS: IP CONSULT TO PHARMACY IP ADMISSION REQUEST IP CONSULT TO PHARMACY IP CONSULT TO CARDIOLOGY IP CONSULT TO WOUND CARE TEAM Assessment: Marcos Camejo is a 43 y.o. male presenting with PMH of recent admission for MSSA bacteremia andcellulitis in the setting of IVDU (methamphetamine, opiates), OUD (on Suboxone), PTSD, Hep C, presenting to the ED 10/27 with upper and lower extremity and genital swelling, leg pain, multiple sores and cuts on both hands and overall ill feeling. Marcos was previously admitted to [facility] 09/27 and [facility] [place] both for MSSA bacteremia and left both admissions AMA due to Being asked too many questions about his drug use. Marcos presents today complaining of foot and hand swelling that [...] worsened mitral and tricuspid regurg on TTE butno vegetations were visualized. Also noted a PFO. Consult with Cardiology recommends diuresis over the weekend and patient was started on 20mg IV Lasix, waiting on blood cultures to get back before proceeding to MARIBEL on Wednesday. He denies recent IVDU and strongly denies injecting into his hands, stating that he injects into his shoulders. He was upset when asked about his drug use and injection history stating that it has nothing to do with his current problem, stating he has some sort of parasite in his body. Since presenting he has been hemodynamically stable and afebrile without a leukocytosis. His ESR was wnl but his CRP was elevated to 12.0 making sepsis and endocarditis lower on the differential. Blood cultures were drawn and patient was started on Ancef as his prior abscess culture grew MSSA and was sensitive to it. He has active untreated HEP C with elevated LFTs AST 195, ALT 191 but alk phos normal at 109. 10/30/2023 Overall stable today, blood cultures NGTD at 24 hours, continued on IV Ancef, consider transitioning to PO abx Keflex or Cefadroxil IV Lasix had good effect resulting in net output of -5485 over last 24 hours with significant reduction in LLE. There is still some slight non-pitting edema on his R leg. Will transition to PO Lasix 10mg. MARIBEL planned for Wednesday. Plan: #Bilateral hand Cellulitis #C/F Endocarditis - Continue Ancef 2g Q8hr for now -Transition to orals #Elevated LFTs #C/f congestive hepatopathy #Hep C - RUQ ultrasound showed normal hepatic echogenicity without focal lesion - Outpatient Hep C treatment - Discuss Hep C diagnosis with patient to see what he knows of his condition #Tricuspid Regurgitation #Mitral Regurgitation #Elevated proBNP #Bilateral lower extremity swelling - IV Lasix diureses was successful, Transition to Oral Lasix 10mg - Plan for MARIBEL on Wednesday - Duplex dopplers bilaterally ruled out clots #OUD -Last admission reportedly on Suboxone 12mg BID -Resident called [facility] to confirm dose and they could not confirm or deny patient being prescribed Suboxone there -Continued Subuxone 12mg BID for now #IVDU - HIV screen Diet: Regular diet NPO diet (Give Meds) Last BM documented: 10/29/23 DVT Prophylaxis: LMWH Daily Checklist: Last Family Communication: Discharge Location: AM-PAC Basic Mobility Raw Score: 24 PT: OT: Code status Attempt Cardiopulmonary Resuscitation - Inpatient PCP Milo Baer MD [phone] Active Hospital Problems Diagnosis Leg swelling Resolved Hospital Problems No resolved problems to display. * Cynthia Moreno, RN - 10/30/2023 4:06 AM EDT OUTCOME EVALUATION NOTE: OUTCOME SUMMARY: Pt A/Ox4, VSS, on RA. IV abx infused per SEP. Pt ambulating independently, up ad sebas. Pt reporting 10/10 pain in his BLE, PRN tylenol given x1 with good effect. Pt able to void. Visitor at bedside. Pt resting in between nursing care. PLAN MOVING FORWARD: NPO midnight Wednesday for possible MARIBEL Wednesday Blood cx results pending Cefazolin Q8 RUQ ultrasound- complete Monitor output Outpatient hep C management INDIVIDUALIZED FALL PREVENTION INTERVENTIONS: Patient-specific fall risk factors per assessment: [current deficits]: Hospital environment, IV access, tubing/lines/drains Assistance [level of assistance required for transfers and ambulation]: Ind Supervision [direct monitoring required during toileting and ADLs]: Eyes on Surveillance [continuous indirect monitoring]: Masimo, purposeful rounding, call banda in reach, room near nursing station Patient-specific fall prevention interventions for sensory deficits provided, if applicable: [X] N/A CARE PLAN GOAL OUTCOME EVALUATION: Ongoing * Mariam Cueto LPN - 10/29/2023 4:43 PM EDT OUTCOME EVALUATION NOTE: OUTCOME SUMMARY: A&Ox4, VSS on RA. Pt had RUQ ultrasound this morning, after ultrasound complete diet advanced to regular diet, pt ate breakfast. MARIBEL unable to complete today due to pt eating after diet was advanced. MD ordered cardio consult for tricuspid/mitral valve regurg and possible endocarditis, also ordered one time dose of lasix. Patient reporting difficulty voiding, bladder scan showed 397ml, MD placed one time order for straight cath however patient able to void 325ml before cath. IV Cefazolin administered per SEP. No c/o SOB/N/V this shift. Resting between care. PLAN MOVING FORWARD: Monitor output IV Cefazolin Q8 INDIVIDUALIZED FALL PREVENTION INTERVENTIONS: Patient-specific fall risk factors per assessment: [current deficits]: hospital environment, IV access Assistance [level of assistance required for transfers and ambulation]: IND Supervision [direct monitoring required during toileting and ADLs]: eyes on Surveillance [continuous indirect monitoring]: Masimo, hourly safety rounding, call banda within reach, room near nurses station Patient-specific fall prevention interventions for sensory deficits provided, if applicable: [X] N/A CPG GOAL OUTCOME EVALUATION: * Anatoliy Rivera V - 10/29/2023 8:21 AM EDT MEDICINE PAGER [phone] - [facility] Daily Progress Note Page [phone] to reach a provider 08/02 Admit Date: 10/28/2023 Encounter Date: October 29, 2023 Anticipated Discharge Date: 11/05/2023 Hospital Day: 1 ID: Marcos Camejo is a 43 y.o. male with PMH of recent admission for MSSA bacteremia and cellulitis in the setting of IVDU (methamphetamine, opiates), OUD (on Suboxone), PTSD, Hep C, who presented to the ED on 10/27 with upper and lower extremity and genital swelling, SOB, leg pain, multiple sores and cuts on both hands and overall ill feeling. 24 Hour Events/Subjective: Yesterday - Presented to ED with new extremity swelling - Blood cultures obtained - BNP elevated with new onset mitral and tricuspid regurg on TTE - Started on Ancef 2g IV ON - Transferred to the floor - Stable VS This AM - stable VS - Taken for hepatic US Objective: Last value Range last 24 hrs Temp: 36.6 ??C (97.9 ??F) Temp: [36.6 ??C (97.9 ??F)-37 ??C (98.6 ??F)] Heart Rate: 80 Heart Rate from SpO2: 75 bpm Heart Rate: [67-80] BP: (!) 141/91 BP: (116-145)/(70-91) Resp: 16 Resp: [11-21] SpO2: 98 % SpO2: [96 %-99 %] Height: 175.3 cm (5' 9) Weight: 88.6 kg (195 lb 5.2 oz) BMI (Calculated): 25.1 BMI Classification: Over Weight Intake/Output Summary (Last 24 hours) at 10/29/2023 1422 Last data filed at 10/29/2023 1335 Gross per 24 hour Intake 930 ml Output 3495 ml Net -2565 ml Patient Vitals for the past 72 hrs: Weight 10/28/23 2328 88.6 kg (195 lb 5.2 oz) 10/28/23 0827 77.1 kg (170 lb) EXAM: Recent Labs 10/29/23 0349 10/28/23 1040 WBC 6.6 6.6 HGB 9.5* 9.7* HCT 28.9* 29.3* PLATELET 239 244 Recent Labs 10/29/23 0349 10/28/23 1040 NA 139 138 K 4.0 3.9 CL 104 102 CO2 28 29 BUN 16 16 CREATININE 0.82 0.71* Recent Labs 10/29/23 0349 10/28/23 1040 AST 172* 195* ALT 178* 191* ALKPHOS 103 109 BILITOT 0.3 0.3 BILIDIR 0.1 -- Recent Labs 10/29/23 0349 10/28/23 1040 CALCIUM 8.0* 8.5 No results for input(s): PT, INR, PTT in the last 168 hours. No results for input(s): CK, TROPONINT in the last 168 hours. Results for orders placed or performed during the hospital encounter of 10/28/23 (from the past 24 hour(s)) US Abdomen Limited (Exam End: 10/29/2023 7:46 AM) Impression 1. Edematous gallbladder wall measuring 5 mm in thickness with trace pericholecystic fluid. No gallstones or positive sonographic Mast's sign. In the setting of acute hepatitis, this is most likely a secondary finding. 2. Borderline dilation of the common bile duct, measures 7.5 mm. 3. Normal hepatic echogenicity without focal lesion. 4. Patent portal vein with normal directionality of flow. I have personally reviewed the image(s) and the resident's interpretation and agree with the findings, Chang Cisneros MD at 10/29/2023 8:37 AM Electronically signed by: Chang Cisneros MD, [facility] ([phone]), at 10/29/2023 8:37 AM Thank you for letting us participate in the care of this patient. If you are a health care provider and have any questions regarding this report, please contact the number above. For patients who have questions, please contact the health rn patient care that requested your imaging first. Chang Cisneros, Staff Physician Electronically Signed Final Report 10/29/2023 08:45 am CONSULTANTS: IP CONSULT TO PHARMACY IP ADMISSION REQUEST IP CONSULT TO PHARMACY IP CONSULT TO CARDIOLOGY Assessment: Marcos Camejo is a 43 y.o. male presenting with PMH of recent admission for MSSA bacteremia andcellulitis in the setting of IVDU (methamphetamine, opiates), OUD (on Suboxone), PTSD, Hep C, presenting to the ED 10/27 with upper and lower extremity and genital swelling, leg pain, multiple sores and cuts on both hands and overall ill feeling. Marcos was previously admitted to [facility] 09/27 and [facility] [place] both for MSSA bacteremia and left both admissions AMA due to Being asked too many questions about his drug use. Marcos presents today complaining of foot and hand swelling that [...] worsened mitral and tricuspid regurg on TTE butno vegetations were visualized. Also noted a PFO. Consult with Cardiology recommends diuresis over the weekend and patient was started on 20mg IV Lasix, waiting on blood cultures to get back before proceeding to MARIBEL on Wednesday. He denies recent IVDU and strongly denies injecting into his hands, stating that he injects into his shoulders. He was upset when asked about his drug use and injection history stating that it has nothing to do with his current problem, stating he has some sort of parasite in his body. Since presenting he has been hemodynamically stable and afebrile without a leukocytosis. His ESR was wnl but his CRP was elevated to 12.0 making sepsis and endocarditis lower on the differential. Blood cultures were drawn and patient was started on Ancef as his prior abscess culture grew MSSA and was sensitive to it. He has active untreated HEP C with elevated LFTs AST 195, ALT 191 but alk phos normal at 109. Plan: #Bilateral hand Cellulitis #C/F Endocarditis - Continue Ancef 2g Q8hr for now - Follow up blood culture -Transition to orals if blood culture negative #Elevated LFTs #C/f congestive hepatopathy #Hep C - RUQ ultrasound showed normal hepatic echogenicity without focal lesion - Outpatient Hep C treatment - Discuss Hep C diagnosis with patient to see what he knows of his condition #Tricuspid Regurgitation #Mitral Regurgitation #Elevated proBNP #Bilateral lower extremity swelling - Diurese with 20mg IV Lasix - Cardiology recommends diurese and wait for blood cultures to come back, plan for MARIBEL on Wednesday -Duplex dopplers bilaterally ruled out clots #OUD -Last admission reportedly on Suboxone 12mg BID -Resident called [facility] to confirm dose and they could not confirm or deny patient being prescribed Suboxone there -Continued Subuxone 12mg BID for now #IVDU - HIV screen Diet: Regular diet Last BM documented: 10/28/23 DVT Prophylaxis: LMWH Daily Checklist: Last Family Communication: Discharge Location: AM-PAC Basic Mobility Raw Score: 24 PT: OT: Code status Attempt Cardiopulmonary Resuscitation - Inpatient PCP Milo Baer MD [phone] Active Hospital Problems Diagnosis Leg swelling Resolved Hospital Problems No resolved problems to display. * Torri Rosenthal MD - 10/29/2023 7:20 AM EDT MEDICINE PAGER [phone] - [facility] Daily Progress Note Page [phone] to reach a provider 08/02 Admit Date: 10/28/2023 Encounter Date: October 29, 2023 Anticipated Discharge Date: 11/05/2023 Hospital Day: 1 24 Hour Events/Subjective: - Admitted for bilateral UE cellulitis, improving and lower extremity edema - TTE with worsened mitral and tricuspid regurg, preserved EF - Continued on Ancef, will follow cultures - Feels well with no hand pain. No acute concerns Objective: Last value Range last 24 hrs Temp: 36.6 ??C (97.9 ??F) Temp: [36.6 ??C (97.9 ??F)-37 ??C (98.6 ??F)] Heart Rate: 80 Heart Rate from SpO2: 75 bpm Heart Rate: [80] BP: (!) 141/91 BP: (116-145)/(70-91) Resp: 16 Resp: [12-19] SpO2: 98 % SpO2: [97 %-99 %] Height: 175.3 cm (5' 9) Weight: 88.6 kg (195 lb 5.2 oz) BMI (Calculated): 25.1 BMI Classification: Over Weight Intake/Output Summary (Last 24 hours) at 10/29/2023 1603 Last data filed at 10/29/2023 1549 Gross per 24 hour Intake 1170 ml Output 3495 ml Net -2325 ml Patient Vitals for the past 72 hrs: Weight 10/28/23 2328 88.6 kg (195 lb 5.2 oz) 10/28/23 0827 77.1 kg (170 lb) EXAM: General: Well appearing man in no apparent distress CV - RRR. No m/r/g Pulm - CTAB. No w/r/r Abd - NT/ND Extremities - Bilaterally hard and swollen hands. Skin breakdown bilaterally. Lower extremities with 2+ edema, but soft. Recent Labs 10/29/23 03410/28/23 1040 WBC 6.6 6.6 HGB 9.5* 9.7* HCT 28.9* 29.3* PLATELET 239 244 Recent Labs 10/29/23 03410/28/23 1040 NA 139 138 K 4.0 3.9 CL 104 102 CO2 28 29 BUN 16 16 CREATININE 0.82 0.71* Recent Labs 10/29/23 0349 10/28/23 1040 AST 172* 195* ALT 178* 191* ALKPHOS 103 109 BILITOT 0.3 0.3 BILIDIR 0.1 -- Recent Labs 10/29/23 03410/28/23 1040 CALCIUM 8.0* 8.5 Lab Results Component Value Date PROBNP 1,432 (H) 10/28/2023 Lab Results Component Value Date CRP 12.0 (H) 10/28/2023 Lab Results Component Value Date SEDRATE 8 10/28/2023 No results for input(s): PT, INR, PTT in the last 168 hours. No results for input(s): CK, TROPONINT in the last 168 hours. Lab Results Component Value Date UBARBSCRN None Detected 10/28/2023 UBENZOSCRN None Detected 10/28/2023 UCOCAINESCR Presumptive Pos (A) 10/28/2023 UMETHMETSCRN None Detected 10/28/2023 UOPIATESCRN None Detected 10/28/2023 UCANNABSCRN Presumptive Pos (A) 10/28/2023 UOXYSCRN None Detected 10/28/2023 UBUPRENORPHN None Detected 10/28/2023 UFENTANYLSCR Presumptive Pos (A) 10/28/2023 UTRICYCLICS None Detected 10/28/2023 UETHANOLSCRN None Detected 10/28/2023 UAMPHETAMIN Presumptive Pos (A) 10/28/2023 SVTUADULTER None Detected 10/28/2023 Micro: BC 10/01 - clear BC 10/27 - NGTD Results for orders placed or performed during the hospital encounter of 10/28/23 (from the past 24 hour(s)) US Abdomen Limited (Exam End: 10/29/2023 7:46 AM) Impression 1. Edematous gallbladder wall measuring 5 mm in thickness with trace pericholecystic fluid. No gallstones or positive sonographic Mast's sign. In the setting of acute hepatitis, this is most likely a secondary finding. 2. Borderline dilation of the common bile duct, measures 7.5 mm. 3. Normal hepatic echogenicity without focal lesion. 4. Patent portal vein with normal directionality of flow. I have personally reviewed the image(s) and the resident's interpretation and agree with the findings, Chang Cisneros MD at 10/29/2023 8:37 AM Electronically signed by: Chang Cisneros MD, [facility] ([phone]), at 10/29/2023 8:37 AM Thank you for letting us participate in the care of this patient. If you are a health care provider and have any questions regarding this report, please contact the number above. For patients who have questions, please contact the health rn patient care that requested your imaging first. Chang Cisneros, Staff Physician Electronically Signed Final Report 10/29/2023 08:45 am CONSULTANTS: IP CONSULT TO PHARMACY IP ADMISSION REQUEST IP CONSULT TO PHARMACY IP CONSULT TO CARDIOLOGY Assessment: 43 year old male with a past medical history of IVDU (methamphetamine, opiates), OUD (on Suboxone),untreated Hep C, recently admitted for bilateral hand cellulitis MSSA+ who presents for bilateral hand and foot swelling c/f cellulitis +/- volume overload. 10/29/2023 Overall stable today, blood cultures NGTD at 24 hours. Will CTM and diurese for goal of net negative 1-2L daily. Will consider MARIBEL early next week if blood cultures persistently positive or diuresis without significant effect. For now, will maintain on IV abx with cefazolin, consider PO conversion if stable. Plan: #B/l hand Cellulitis #C/F Endocarditis -Continue Ancef 2g Q8hr for now -Follow up blood culture -Transition to orals if blood culture negative #Elevated LFTs #C/f congestive hepatopathy #Hep C -RUQ ultrasound -Outpatient Hep C treatment #Tricuspid Regurgitation #Mitral Regurgitation #Elevated proBNP #Bilateral lower extremity swelling worse on left than right - Consider cards consult if no improvement with diuresis - MARIBEL tentatively scheduled Wednesday - Spot diuresis to goal net negative 1-2L daily #OUD #History of IVDU -Continue Subuxone 12mg BID for now Diet: Regular diet NPO diet (Give Meds) Last BM documented: 10/28/23 DVT Prophylaxis: LMWH Daily Checklist: Last Family Communication: Per patient Discharge Location: AM-PAC Basic Mobility Raw Score: 24 PT: OT: Code status Attempt Cardiopulmonary Resuscitation - Inpatient PCP Milo Baer MD [phone] Active Hospital Problems Diagnosis Leg swelling Resolved Hospital Problems No resolved problems to display. Torri Rosenthal MD PGY-1 Red Team Pager [phone] Associated attestation - Phoenxi Mcwilliams MD - 10/29/2023 4:32 PM EDT Attending Staff Documentation I have examined the patient myself on 10/29/2023 and reviewed all labs and studies personally. Please see Dr. Rosenthal's documentation for details of the patient history, objective findings and data. I have discussed, reviewed and agree with the documented history with ROS, physical findings, labs/studies, assessment and plan of care for this man with a history of injection and other drugs of abuse presented with hand cellulitis recently but left AMA and returns now with ongoing swelling of his hands and cellulitis with accompanying tricuspid and mitral regurgitation worrisome for possible infective endocarditis. His blood cultures have been negative and we will engage both infectious disease and cardiology for their insights. We will work on obtaining a transesophageal echocardiogram. * Cynthia Moreno RN - 10/29/2023 4:53 AM EDT OUTCOME EVALUATION NOTE: OUTCOME SUMMARY: Pt arrived to unit from ED around 2330. Pt A/Ox4, VSS, on RA. Pt ambulating independently. Pt skin red/ayad/pale, wounds and cuts present on hands. Hands and feet edematous +1/+2. Pt denies c/o SOB,N/V/D. NPO status initiated at midnight. Pt endorsing 8/10 pain in BLE, PRN tylenol given x1. IV abx infused per SEP. Pt resting in between nursing care. PLAN MOVING FORWARD: NPO for MARIBEL 10/28 Blood cx results pending Cefazolin Q8 RUQ ultrasound? Monitor output INDIVIDUALIZED FALL PREVENTION INTERVENTIONS: Patient-specific fall risk factors per assessment: [current deficits]: Hospital environment, IV access, tubing/lines/drains Assistance [level of assistance required for transfers and ambulation]: Ind Supervision [direct monitoring required during toileting and ADLs]: Eyes on Surveillance [continuous indirect monitoring]: Masimo, purposeful rounding, call banda in reach, room near nursing station Patient-specific fall prevention interventions for sensory deficits provided, if applicable: [X] N/A CARE PLAN GOAL OUTCOME EVALUATION: Ongoing * Chasity Oates RN - 10/28/2023 11:06 PM EDT Report called and given to DAVID Marie Patient transferring to room 104B All personal belonging in hand and intact. documented in this encounter H&P Notes * Anatoliy Rivera V - 10/28/2023 2:16 PM EDT Medicine Admission H&P Patient Name: MARCOS CAMEJO Date of : 1980 Age: 43 y.o. Hospital Admit Date: 10/28/2023 Inpatient Attending: Phoenix Mcwilliams MD PCP: Milo Baer MD Presenting Diagnosis/Chief Complaint: History of Present Illness: Marcos Camejo is a 43 y.o. male with PMH of recent admission for MSSA bacteremia and cellulitisin the setting of IVDU (methamphetamine, opiates), OUD (on Suboxone), PTSD, Hep C, presenting to the ED with upper and lower extremity and genital swelling, leg pain, multiple sores and cuts on both hands and overall ill feeling. Marcos was previously admitted to [facility] 09/27 and [facility] [place] both for MSSA bacteremia and left both admissions AMA due to Being asked too many questions about his drug use. Marcos presents today complaining of foot and hand swelling that has gotten worse over the past several days. He denies fevers, chills, chest pain, or sob. He denies recent IVDU and strongly denies injecting into his hands, stating that he injects into his shoulders. He was upset when asked about his drug use and injection history stating that it has nothing to do with his current problem, stating he has some sort of parasite in his body. In the ER, he was hemodynamically stable and afebrile. He did not have a leukocytosis. His ESR was wnl but his CRP was elevated to 12.0. Elevated LFTs AST 195, ALT 191 but alk phos normal at 109. ProBNP 1432. Blood cultures were drawn and patient was started on Ancef as his prior abscess culture grew MSSA and was sensitive to it. CXR was concerning for cardiomegaly. A TTE was ordered and obtainedwhich compared to prior showed worse mitral and tricuspid regurg. No vegetations were noted and hissystolic function was preserved. He was admitted to medicine for further work up and evaluation of his cellulitis and regurgitation with concern for endocarditis. Review of Systems(Positives in Bold): General: fevers, chills, night sweats; recent weight changes; fatigue EENT: changes in vision; changes in hearing; rhinorrhea, congestion, sinus pain, sore throat, newlyhoarse voice Cardiovascular: chest pain; palpitations; dizziness or lightheadedness, 1+ pitting lower leg edema Respiratory: SOB, MACIEL , cough,wheeze GI: abdominal pain; nausea, vomiting, diarrhea, or constipation, blood in stool : dysuria; urgency, frequency, hesitancy, Musculoskeletal: Leg pain, muscle or joint pain Endocrine: heat or cold intolerace; polyuria/polydipsia Heme: easy bruising or bleeding Neuro: headaches; numbness or tingling; weakness;incoordination Psych: agitated mood Past Medical History: Hep A 2019 OUD 2019 Dental Abscess 2022 Hep C 2023 Patient Active Problem List Diagnosis Code Bacteremia due to Staphylococcus aureus R78.81, B95.61 Past Surgical History: No past surgical history on file. Social History: Social History Socioeconomic History Marital [...] Unstable Housing in the Last Year: No Family History: No family history on file. Allergies: Allergies Allergen Reactions Penicillins Hives Tolerated ceftriaxone 09/2023 Medications: Patient reports home use of Suboxone 24mg daily PHYSICAL EXAM: Last value Range last 24 hrs Temperature Temp: 36.9 ??C (98.4 ??F) Temp: [36.9 ??C (98.4 ??F)] Heart Rate Heart Rate: 80 Heart Rate: [67-97] Blood Pressure BP: 145/80 BP: (116-153)/(76-99) Respiratory Rate Resp: 17 Resp: [9-21] SpO2 SpO2: 99 % SpO2: [94 %-99 %] No intake/output data recorded. Gen: NAD, ill appearing HEENT: Eyes: PERRLA, EOMI, no conjunctival injection, no icterus Throat: no lip/tongue lesions,MMM, oropharynx clear of edema/erythema/exudate/lesions CV: Regular rate and rhythm, 1+ Systolic murmur Pulm: Normal respiratory effort, CTA bilaterally, no rales/rhonchi/wheezes Abd: Non-distended, normal active bowel sounds, soft, NT, ND, no guarding Ext: 1+ pitting edema lower legs, erythematous edema in both hands Neuro: Grossly intact, moving all four extremities. Skin: Warm, covered in tattoos, Hands red and swollen with multiple cuts and wounds LABS: Recent Labs 10/28/23 1040 WBC 6.6 HGB 9.7* HCT 29.3* PLATELET 244 Recent Labs 10/28/23 1040 NA 138 K 3.9 CL 102 CO2 29 BUN 16 CREATININE 0.71* Recent Labs 10/28/23 1040 AST 195* ALT 191* ALKPHOS 109 BILITOT 0.3 Recent Labs 10/28/23 1040 CALCIUM 8.5 No results for input(s): PT, INR, PTT in the last 168 hours. No results for input(s): CK, TROPONINT in the last 168 hours. Imaging/Diagnostics: Echocardiogram Transthoracic Echocardiogram Report Name: MARCOS CAMEJO Study Date: 10/28/2023 10:02 AM Patient Location: ED : 1980 Account: [id number] Age: 43 yrs Weight: 77 kg Gender: Male Ordering Physician: LEATHA FINN Performed By: Zuleika Magallon RDCS Reason For Study: Bacteremia due to staphylococcus aureus Interpretation Summary Left ventricle is of normal size. Wall thickness is normal. Left ventricularsize and systolic function is normal. The left [...] are visualized. Consider MARIBEL, if clinically indicated. Procedure Complete-[id number]. Satisfactory quality. Left Ventricle Left ventricle is of normal size. Wall thickness is normal. Left ventricular size and systolic function is normal. The left ventricular ejection fraction is 57% by Hall's biplane. There are no segmental wall motion abnormalities. Right Ventricle Right ventricle is mildly dilated. Right ventricular systolic function is normal. Left Atrium The left atrium is severely dilated. There is a possible patent foramen ovale by color doppler. Aneurysmal septum. Right Atrium The right atrium is moderately dilated. Aortic Valve The aortic valve is structurally [...] Tricuspid valve annulus dilated at 4.0 cm. Thereis moderate to severe tricuspid regurgitation. Pulmonic Valve The pulmonic valve is not well visualized. Great Arteries The aortic root is of normal size. No abnormalities are identified. Venous Inferior vena cava collapse less than 50% with respiration. Inferior vena cava is dilated. Pericardium/Pleural There is no pericardial effusion. Hemodynamics Left ventricular diastolic function is indeterminate. The estimated right atrial pressure is 15mmHg. The peak right ventricular systolic pressure is 52 mmHg. Ejection Fraction 2D Measurements Volumes EF(MOD-bp): 56.5 % IVSd: 1.1 cm LAV(MOD-bp) Indexed: LVIDd: 5.0 cm LVIDs: 3.6 cm 53.1 ml/m2 LVPWd: 1.1 cm RA A4Cs_phl: 25.1 cm2 EDV(MOD-bp) Indexed : RWT: 0.43 LV mass(C)d: 204.0 grams 102.2 ml/m2 LV mass(C)dI: 105.8 grams/m2 ESV(MOD-bp) Indexed: Ao root diam: 3.2 cm 44.5 ml/m2 Ao root diam index: 1.7 SV(LVOT): 85.7 ml LVOT diam: 2.0 cm TAPSE_phl: 2.4 cm SI(LVOT): 44.4 ml/m2 Doppler LV V1 VTI: 27.0 cm Ao V2 VTI: 28.2 cm Ao Max: 149.4 cm/sec Aovalve max: 8.9 mmHg Ao valve mean: 4.6 mmHg MV E max jas: 86.8 cm/sec MV A max jas: 73.3 cm/sec MV E/A: 1.2 MV dec time: 0.26 sec Lat Peak E' Jas: 16.2 cm/sec E/ e' (lat): 5.4 Med Peak E' Jas: 16.6 cm/sec E/e' (med): 5.2 E/e' Average: 5.3 BENNY(I,D): 3.0 cm2 Dimensionless index Aov: 0.96 MR ERO: 0.21cm2 MR PISA radius: 0.81 cm Mitral Regurgitation Volume: 41.0 ml MR volume: 41.6 ml TR max jas: 283. 9 cm/sec I WMSI = 1.00 % Normal = 100 Segments Size X - Cannot 1 - Normal 2 - 3 - Akinetic 4 - 1-2 small Interpret Hypokinetic Dyskinetic 3-5 moderate 5 - 6-14 large Aneurysmal 15-16 diffuse Chest One View Result Date: 10/28/2023 EXAMINATION: XR CHEST ONE VIEW CLINICAL HISTORY: c/f cardiac dysfunction TECHNIQUE: 1 view of the chest COMPARISON: 09/30/2023. FINDINGS: Findings are concerning for new cardiomegaly or pericardial effusion. Pulmonary edema. Additional infection in the right lower lung not excluded. Possible small ef fusion. No interval osseous change. Accounting for AP technique and low inspiratory depth, the cardiac silhouette is enlarged. This is concerning for new cardiomegaly or pericardial effusion. Mild to moderate pulmonary edema with or without additional infection. Possible small effusion. Thank you for letting us participate in the care of this patient. If you are a health care provider and have any questions regarding this report, pl ease contact the number below. For patients who have questions please contact the health rn patient care that requested your imaging first. Echocardiogram Transthoracic Result Date: 10/01/2023 Echocardiogram Report Name: MARCOS CAMEJO Study Date: 10/01/2023 06:54 AM Patient Location: [facility]^256^A : 1980 Height: 175 cm Account: [id number] Age: 43 yrs Weight: 75 kg Gender: Male BSA: 1.9 m2 Ordering Physician: EUGENE SNOWDEN Performed By: SANDHYA Mena Reason For Study: Bacteremia due to Staphylococcus aureus Exam Location: [facility]. Interpretation Summary LV is mildly dilated. Wall thickness is normal. Left ventricular systolic function is normal. The left ventricular ejection fraction is 64% by 3D volumetric assessment. There are no segmental wall motion abnormalities. The right ventricle is of normal size. Right ventricular systolic function is normal. Estimated RVSP is 40 mmHg. The left atrium is moderately dilated. Thereis no hemodynamically significant valve disease. No prior study available for comparison. Procedure Complete-[id number]. Satisfactory quality. There is normal sinus rhythm. [...] no valvular pulmonic stenosis. There is no pulm onic valve regurgitation. Great Arteries The aortic root [...] ventricular diastolic function is indeterminate. Ejection Fraction 2D Measurements Volumes 4D EF: 64.4 % IVSd: 0.84 cm LAV(MOD- bp) Indexed: LVIDd: 5.3 cm LVPWd: 0.89 cm 42.1 ml/m2 RWT: 0.34 RA A4Cs_phl: 20.1 cm2 3D ESV:58.2 ml LV mass(C)d: 166.0 grams 3D EDV: 163.6 ml LV mass(C)dI: 87.2 grams/m2 Ao root diam: 3.0 cm 3DEDV Indexed: 86.0 ml/m2 Ao root diam index: 1.6 3DESV Indexed: 30.6 ml/m2 asc Aorta Diam: 2.7 cm SV(LVOT): 58.3 ml LVOT diam: 1.7 cm TAPSE_phl: 2.3 cm SI(LVOT): 30.6 ml/m2 Doppler LV V1 VTI: 24.7 cmMV E max jas: 69.7 cm/sec MV A max jas: 42.3 cm/sec MV E/A: 1.6 MV dec time: 0.20 sec Lat Peak E' Jas: 19.3 cm/sec E/ e' (lat): 3.6 Med Peak E' Jas: 11.7 cm/sec E/e' (med): 5.9 E/e' Average: 4.8 TR max jas: 282.7 cm/sec RVSP(TR): 40.0 mmHg I WMSI = 1.00 % Normal = 100 Segments Size X - Cannot 2 - 4- 1-2 small Interpret 1 - Normal Hypokinetic 3 - Akinetic Dyskinetic 3-5 moderate 5 - 6-14 large Ane urysmal 15-16 diffuse Hand w Contrast Right Result Date: 09/30/2023 EXAMINATION: CT HAND W CONTRAST RIGHT CLINICAL HISTORY: 43m hx of IVDU, large area of induration and swelling of right hand c/f abscess or joint involvement TECHNIQUE: Helically acquired images were obtained through the right hand and wrist following the administration of intravenous contrast. Multiplanar reformatted images were generated. Contrast: 110 cc Omnipaque 350 COMPARISON: Bilateral handradiographs performed earlier the same date FINDINGS: There [...] joint effusions. No acute fracture or dislocation. Milddeformity of the distal fifth metacarpal consistent with remote healed fracture. Osteoarthritic changes at the third carpometacarpal joint with joint space narrowing, subchondral cysts, minimal osteophyte formation and a couple small periarticular bone fragments along the palmar aspect of the joint. 1. Multiloculated fluid collection along the dorsal [...] who have questions please contact the health rn patient care that requested your imaging first. Hand w Contrast Left Result Date: 09/30/2023 EXAMINATION: CT HAND W CONTRAST LEFT [...] to remote injury. At the third MCP joint,there is a small joint effusion with joint fluid protruding dorsally. Equivocal minimal joint spacenarrowing at the third MCP joint. No other joint effusions. There is diffuse subcutaneous edema andskin thickening along the dorsal aspect of the hand and wrist. No loculated rim-enhancing fluid collection suspicious for abscess. No evidence of tenosynovitis. No tracking soft tissue gas. 1. Small third MCP joint effusion and [...] who have questions please contact the health rn patient care that requested your imaging first. Hand Min 3 views Bilat (Generic) Result Date: 09/30/2023 EXAMINATION: XR HAND MIN 3 VIEWS BILAT (GENERIC) CLINICAL HISTORY: bilateral dorsal hand swelling and pain bony abnormality? (as entered by ordering provider in the order requisition) TECHNIQUE: PA, oblique, lateral views of each hand. COMPARISON: None FINDINGS: Right: Marked soft tissue swelling on the dorsal- ulnar aspect of the right hand. No underlying [...] Chronic appearing deformity of the fifth metacarpal. 1. Marked soft tissue swelling of the [...] have questions please contact the health care [facility] that requested your imaging first. Chest PA & Lateral (Generic) Result Date: 09/30/2023 EXAMINATION: XR CHEST PA AND LATERAL (GENERIC) CLINICAL HISTORY: chest pain. (as entered by ordering provider in the order requisition) TECHNIQUE: PA and lateral views COMPARISON: None FINDINGS: Normal cardiomediastinal and hilar silhouettes. No focal consolidation. No pleural effusion. No pneumothorax. No acute cardiopulmonary findings. Thank you for letting us participate in the care of this patient. If you are a health care provider and have any questions regarding this report, please contact thenumber below. For patients who have questions please contact the health rn patient care that requested your imaging first. SSMENT and PLAN: 43 year old male with a past medical history of IVDU (methamphetamine, opiates), OUD (on Suboxone),untreated Hep C, recently admitted for bilateral hand cellulitis MSSA+ who presents for bilateral hand and foot swelling c/f cellulitis. Patient presents with improved (via pictures and patient account) bilateral hand swelling and new bilateral lower extremity and testicular swelling. In the ED, he had a TTE which showed worsening mitral and tricupsid regurg without vegetations but was not hemodynamically significant and systolic function was perserved. Additionally his BNP was elevated at 1432. He currently does not look like a patient with infective endocarditis. He is afebrile, Hemodynamically stable, and has a normal white count at 6.6. His CRP is elevated and are his LFTs. My plan for now is to follow up his blood culture results and continue Ancef. If his blood culturesare positive will plan on doing a MARIBEL to rule out endocarditis. Will also consider consulting cardiology with lower extremity swelling and new regurg. [place] doppler of both legs did not suggest DVT but stated abnormal pulsatile waveforms seen in bilateral common femoral veins suggestive of a central process causing elevated right sided heart pressure. Here is the rest of my plan: #Bilateral hand Cellulitis #C/F Endocarditis -Continue Ancef 2g Q8hr for now -Follow up blood culture -Transition to orals if blood culture negative #Elevated LFTs #C/f congestive hepatopathy #Hep C -RUQ ultrasound -Outpatient Hep C treatment - Discuss Hep C diagnosis with patient to see what he knows of his condition #Tricuspid Regurgitation #Mitral Regurgitation #Elevated proBNP #Bilateral lower extremity swelling -If stable and does not progress into sepsis will try diuresis -Will consider inpatient cardiology consultation -Duplex dopplers bilaterally ruled out clots but stated abnormal pulsatile waveforms seen #OUD -Last admission reportedly on Suboxone 12mg BID -Resident called [facility] to confirm dose and they could not confirm or deny patient being prescribed Suboxone there -Continued Subuxone 12mg BID for now #IVDU - HIV screen #Housekeeping: - DVT PPx: - GI PPx: - Diet: Regular diet - Level of care: - Vitals: Discussed Advanced Directives and Code Status. The patient wishes to be Attempt Cardiopulmonary Resuscitation - Inpatient. Anatoliy Rivera Internal Medicine MS3 Pager: [phone] 10/28/23 * Garry Ortiz MD - 10/28/2023 2:15 PM EDT Images from the original note were not included. [facility] [place] History and Physical Date: 10/28/23 Patient Information: Marcos Camejo [id number] 1980 PCP: Milo Baer MD PCP Admit Date: 10/28/2023 8:16 AM Hospital Day 0 days Patient ID: 43 year old male with a past medical history of IVDU (methamphetamine, opiates), OUD (on Suboxone),untreated Hep C, recently admitted for bilateral hand cellulitis MSSA+ who presents for bilateral hand and foot swelling c/f cellulitis +/- volume overload. Patient Active Problem List Diagnosis Code Bacteremia due to Staphylococcus aureus R78.81, B95.61 HPI Patient recently admitted on 09/29-10/03 for bilateral [...] team to discuss risks of AMA discharge. He now represents today with complaints of foot and hand swelling that has gotten worse over the past several days. In general he is not very interested in providing a history so timeline and additional details of history are unclear. He denies fevers, chills, cp, sob, n/v, lightheadedness, or passing out. He denies recent IVDU or injecting into his hands. He was upset when asked about his drug use and injection history. He reports that when he was injecting that he would into his shoulders. In the ER, he was hemodynamically stable and afebrile. He did not have a leukocytosis. His ESR was wnl but his CRP was elevated to 12.0. Elevated LFTs AST 195, ALT 191 but alk phos normal at 109. ProBNP 1432. Blood cultures were drawn and patient was started on Ancef as his prior abscess culture grew MSSA and was sensitive to it. CXR was concerning for cardiomegaly. A TTE was ordered and obtainedwhich compared to prior showed worse mitral and tricuspid regurg. No vegetations were noted and hissystolic function was preserved. He was admitted to medicine for further work up and evaluation of his cellulitis and regurgitation with concern for endocarditis. Medical History No past medical history on file. Surgical History No past surgical history on file. Social History Social History Socioeconomic History Marital status: Spouse [...] Unstable Housing in the Last Year: No Subjective/ROS: Review of Systems All other systems reviewed and are negative. Physical Exam: Vitals: Latest Value 24 Hour Range Temperature Temp: 36.9 ??C (98.4 ??F) Temp: [36.9 ??C (98.4 ??F)] Blood Pressure BP: 125/76 BP: (116-153)/(76-99) Heart Rate Heart Rate: 73 Heart Rate: [68-97] Respiration Rate Resp: 18 Resp: [9-19] O2 Saturation SpO2: 99 % SpO2: [94 %-99 %] Ins and Outs: No intake or output data in the 24 hours ending 10/28/23 1416 Physical Exam Constitutional: General: He is not in acute distress. Appearance: He is ill-appearing. He is not diaphoretic. Comments: Lots of Tattoos HENT: Head: Normocephalic and atraumatic. Nose: Nose normal. Mouth/Throat: Mouth: Mucous membranes are moist. Eyes: General: No scleral icterus. Right eye: No discharge. Left eye: No discharge. Extraocular Movements: Extraocular movements intact. Conjunctiva/sclera: Conjunctivae normal. Pupils: Pupils are equal, round, and reactive to light. Cardiovascular: Rate and Rhythm: Normal rate and regular rhythm. Pulses: Normal pulses. Heart sounds: Murmur heard. Pulmonary: Effort: Pulmonary effort is normal. Breath sounds: Normal breath sounds. Abdominal: General: Abdomen is flat. Bowel sounds are normal. There is no distension. Musculoskeletal: General: Swelling present. No tenderness or signs of injury. Cervical back: Normal range of motion. Right lower leg: Edema present. Left lower leg: Edema present. Skin: General: Skin is warm. Capillary Refill: Capillary refill takes less than 2 seconds. Neurological: General: No focal deficit present. Mental Status: He is alert and oriented to person, place, and time. Labs: 9.7 138 102 16 3.2 6.2 8.5 6.6 H/H 244 3.9 29 .71 -- .3 0.79 29.3 195 191 -- 109 72.2N (.9B) / 15.9L / 7.8M / 2.6E / .6B Micro: @MIRCORESULTS@ Imaging: XR Chest One View Final Result Accounting for AP technique and low inspiratory depth, the cardiac silhouette is enlarged. This is concerning for new cardiomegaly or pericardial effusion. Mild to moderate pulmonary edema with or without additional infection. Possible small effusion. Thank you for letting us participate in the care of this patient. If you are a health care provider and have any questions regarding this report, please contact the number below. For patients who have questions please contact the health rn patient care that requested your imaging first. Medications: Infusions: Scheduled sodium chloride 0.9 % (flush) 5 mL Intravenous BID enoxaparin 40 mg Subcutaneous Nightly PRN vancomycin, sodium chloride 0.9 % (flush), lidocaine, acetaminophen Assessment and Plan 43 year old male with a past medical history of IVDU (methamphetamine, opiates), OUD (on Suboxone),untreated Hep C, recently admitted for bilateral hand cellulitis MSSA+ who presents for bilateral hand and foot swelling c/f cellulitis +/- volume overload. Patient recently admitted for bilateral hand cellulitis and left hand abscess that was drained and positive for MSSA+. He unfortunately left AMA before a safe outpatient abx plan was made. He now represents with improved bilateral hand swelling and new bilateral lower extremity swelling. He had a TTE which showed worsening mitral and tricupsid regurg without vegetations but was not hemodynamically significant and systolic function was perserved. Additionally his BNP was elevated. He currently does not look like a patient with infective endocarditis. He is afebrile, HDS, and does not have a white count. His CRP is elevated and are his LFTs. My plan for now is to follow up his blood culture re sults and continue Ancef as his MSSA + abscess culture was sensitive too it before. If his blood cultures are positive will plan on doing a MARIBEL to rule out endocarditis. Will also consider consultingcardiology with lower extremity swelling and new regurg. Here is the rest of my plan: #B/l hand Cellulitis #C/F Endocarditis -Continue Ancef 2g Q8hr for now -Follow up blood culture -Transition to orals if blood culture negative #Elevated LFTs #C/f congestive hepatopathy #Hep C -RUQ ultrasound -Outpatient Hep C treatment #Tricuspid Regurgitation #Mitral Regurgitation #Elevated proBNP #Bilateral lower extremity swelling worse on left than right -If stable and does not progress into sepsis will try diuresis -Will consider inpatient cardiology consultation -Outpatient cardiology referral on discharge. -Duplex dopplers bilaterally to r/o clots #OUD #History of IVDU -Last admission reportedly on Suboxone 12mg BID -Called [facility] to confirm dose and they could not confirm or deny patient being prescribed Suboxone there -Continued Subuxone 12mg BID for now #General: Diet: Regular diet GI Ppx DVT Ppx Lovenox 40mg Bowel PPx Dispo pending Code Status Attempt Cardiopulmonary Resuscitation - Inpatient 4 Garry Ortiz MD 10/28/23 2:16 PM Internal Medicine, PGY-3 Team Pager: [phone] Associated attestation - Phoenix Mcwilliams MD - 10/29/2023 12:37 PM EDT Attending Staff Documentation I have examined the patient myself on 10/28/2023 and reviewed all labs and studies personally. Please see Dr. Rosenthal's documentation for details of the patient history, objective findings and data. I have discussed, reviewed and agree with the documented history with ROS, physical findings, labs/studies, assessment and plan of care for this man recently admitted with hand cellulitis who left AMA and who has actually left AMA from other admissions. Ravinder presents now with continued hand cellulitis and lower extremity swelling. Found to have worsening mitral and tricuspid regurgitation. He has no leukocytosis and inflammatory markers are relatively unremarkable. There is no stigmataof endocarditis but clearly that is a concern given his injection drug use and the worsening finding s on echocardiography. We will admit for blood cultures empiric antimicrobial therapy for his cellulitis and discussions with cardiology and infectious disease as needed documented in this encounter ED Notes * Leatha Finn MD - 10/28/2023 8:49 AM EDT ED Resident Note [facility] HPI: Marcos Camejo is a 43 y.o. male with a past medical history of recent admission for MSSA bacteremia in the setting of IV drug use, methamphetamine use, and opiate use disorder, PTSD, anxiety, bipolar presenting to the ED with full body swelling and overall ill feeling. Patient was recentlyadmitted to the hospital with MSSA but left AMA due to concerns for needing a PICC line. He states he was otherwise feeling okay but over the last week or so he began feeling more ill and had more swelling noted. The swelling is throughout his entire body but most notably on his hands and feet. He does have dry cracked skin over this area as well which he says has been since his last hospitalizati on. He denies any drug use since his last hospitalization but it was reported that he has used methamphetamines as well as smoke crack cocaine since that time. He has complaints that parasites are in all parts of my body. He also had this complaint during his last admission. He has been tested for multiple parasites and has never found any infectious source. He is reportedly not been on any antibiotics oral or IV since his discharge. He denies any fevers, congestion, chills, cough, dysuria, polyuria, nausea, vomiting, diarrhea. HIV testing at the previous visit was negative. Is also been reported that he has made suicidal statements but he denies this at this time. Physical Exam Vitals and nursing note reviewed. Constitutional: General: He is not in acute distress. Appearance: Normal appearance. He is well-developed and normal weight. He is ill-appearing. He is not toxic-appearing or diaphoretic. HENT: Head: Normocephalic and atraumatic. Ears: Comments: Bilateral ear canals are erythematous and swollen. TMs normal. Nose: Nose normal. No congestion or rhinorrhea. Comments: Patient has scabs on bilateral anterior naris Mouth/Throat: Mouth: Mucous membranes are dry. Pharynx: Posterior oropharyngeal erythema present. No oropharyngeal exudate. Eyes: General: No scleral icterus. Right eye: [...] distress. Breath sounds: Normal breath sounds. No stridor. No wheezing, rhonchi or rales. Chest: Chest wall: No tenderness. Abdominal: General: Bowel sounds are normal. There is no distension. Palpations: Abdomen is soft. There is no mass. Tenderness: There is no abdominal tenderness. There is no guarding or rebound. Hernia: No hernia is present. Musculoskeletal: General: Normal range of motion. Cervical back: Normal range of motion and neck supple. No rigidity or tenderness. Right lower leg: Edema present. Left lower leg: Edema present. Lymphadenopathy: Cervical: No cervical adenopathy. Skin: General: Skin is warm and dry. Capillary Refill: Capillary refill takes less than 2 seconds. Coloration: Skin is pale. Skin is not jaundiced. Findings: No bruising or erythema. Comments: Patient has anasarca most notably in his hands and feet. Areas of cracked skin at joint lines especially in the fingers and toes. Neurological: General: No focal deficit present. Mental Status: He is alert and oriented to person, place, and time. Mental status is at baseline. Cranial Nerves: No cranial nerve deficit. Sensory: No sensory deficit. Motor: No weakness. ED Course/MDM/Assessment/Plan: Initial differential includes: Endocarditis, bacteremia, other infections, heart failure, pericarditis/myocarditis, liver failure ED Course as of 10/28/23 1246 Shannan Oct 28, 2023 0951 XR Chest One View IMPRESSION Accounting for AP technique and low inspiratory depth, the cardiac silhouette is enlarged. This is concerning for new cardiomegaly or pericardial effusion. Mild to moderate pulmonary edema with or without additional infection. Possible small effusion. 0952 EKG 12 Lead NSR at 78, normal KS and QT intervals. No ischemic changes noted. Narrow QRS 1044 2 ultrasound-guided IVs placed. Cultures pulled off of these. 1059 Lactate WB: 1.5 1244 Echocardiogram Transthoracic No vegetations noted, but worsening mitral and tricuspid regurg noted. 1244 ProBNP(!): 1,432 Elevated, no prior for comparison. Concern for CHF 1245 CRP(!): 12.0 1245 TSH: 1.67 1245 SARS-CoV-2 RNA PCR: Not Detected 1245 Comprehensive metabolic panel (non-fasting)(!) Normal electrolytes, normal kidney function, elevation in AST and ALT. Patient has known hep B Patient is a 43 y.o. male with recent MSSA bacteremia without outpatient IV or oral antibiotics presenting with whole body pain and swelling which is concerning for endocarditis versus heart failure.Patient is very ill-appearing but does not have any noted vegetations on transthoracic echocardiogram. Patient does have noted worsening mitral and tricuspid regurgitation from 1 month prior which isconcerning for vegetations even though these are not seen at this time. Likely will need a trams esophageal echo. BNP is elevated concerning for CHF although this could be due to his regurg. Of note,his left atrium is quite enlarged. Patient was started on IV antibiotics and 3 blood cultures were o btained. Other labs reassuring against infection although the patient's risk factors are very high.Patient was given pain medications while here. Hemodynamically stable throughout the visit. Disposition: Admitted to hospital medicine in watcher condition Marcos Alberts MD Resident 10/28/23 171 ED ATTENDING ATTESTATION NOTE The patient was [...] noted below or in my separate note. Brief Summary: 43 y.o. male with modest anasarca and pulmonary edema, erythema and swelling of both hands. Historyof IV drug use. Concerning for possible endocarditis. No cardiomegaly. Recent admission for the same, subsequently left AMA. Needs broad- spectrum antibiotic coverage, further workup. Leatha Finn MD 10/29/23 0926 documented in this encounter Miscellaneous Notes * Plan of Care - Viji Mack RN - 10/30/2023 5:45 PM EDT INDIVIDUALIZED FALL PREVENTION INTERVENTIONS: Patient-specific fall risk factors per assessment: [current deficits]: withdrawal symptoms Assistance [level of assistance required for transfers and ambulation]: independent Supervision [direct monitoring required during toileting and ADLs]: independent Surveillance [continuous indirect monitoring]: masimo Patient-specific fall prevention interventions for sensory deficits provided, if applicable: [X] Yes call light within reach, family at bedside CARE PLAN GOAL OUTCOME EVALUATION: Problem: Adult [...] Outcome: Ongoing (Interventions Implemented as Appropriate) Problem: Fluid Volume Excess Goal: Fluid Balance Outcome: Ongoing (Interventions Implemented as Appropriate) * Consult Note - Lola Art MD - 10/30/2023 3:58 PM EDT Psychiatric Initial Inpatient Consultation Note Time of Consultation: 15:50 Information Sources: Patient. Reason for consultation: I have been asked by Anatoliy Rivera to see Marcos Camejo for recommendations regarding the management of xylazine withdrawal and I have outlined my findings and recommendations in this report. Chief Complaint (in patient's own words): My anxiety is through the roof History of Present Illness: Per primary team, Marcos was previously admitted to [facility] 09/27 and [facility] [place] 09/29-10/03 both for MSSA bacteremia and left both admissions AMA due to Being asked too many questions about his drug use. He was admitted on 10/27 with [facility] of recent admission for MSSA bacteremia and cellulitis in the setting of IVDU (methamphetamine, opiates), OUD (on Suboxone), PTSD, Hep C, presenting to the ED with upper and lower extremity and genital swelling, leg pain, multiple sores and cuts on both hands and overall ill feeling. UDS was positive for cocaine, cannabinoids, fentanyl and emphetamines. Marcos states that he is feeling heightened anxiety and is experiencing withdrawal symptoms. He describes general discomfort, nausea, vomiting, diarrhea, lacrimation and yawning. He has been concerned about taking suboxone because he believes this precipitated withdrawal for him in the past. Currently, he has been offered 12 mg of suboxone and last took this on 10/28 but has been refusing since. He states that he would prefer to tough it out this evening but is amenable to trying suboxone tomorrow if symptoms worsen. He shares that his fentanyl was laced with xylazine. He is not interested in discussing his substance use further, not interested in substance use treatment or further discussion with psychiatry at this time. Psychiatric Review of Systems: Sustained Depressed Mood: Denies Sustained Elevated Mood: Denies Sustained Irritable Mood: Yes Flashbacks: Denies Nightmares: Denies Panic Attacks: Denies Chronic Worry: Yes Psychotic Symptoms: Denies Obsessions/compulsions: Denies Violence: Denies Self Harm: Denies Past Psychiatric History: Diagnoses: OUD, PTSD, ADHD, unspecified BPAD per chart review Current treatment: Denies Past psychiatric medications/Substance Use History/Treatment: Per primary team, resident called [facility] to confirm dose and they could not confirm or deny patient being prescribed Suboxone Problem List: Patient Active Problem List Diagnosis Code Bacteremia due to Staphylococcus aureus R78.81, B95.61 Leg swelling M79.89 Past Medical/Surgical History: No past medical history on file. No past surgical history on file. Inpatient Medications: Current Facility-Administered Medications Medication Dose Route Frequency Provider Last Rate Last Admin glucose (Glutose) 40% oral geL 15-30 g of glucose Buccal Q15 Min PRN Garry Ortiz MD Or dextrose 10% infusion 250 mL Intravenous Q15 Min PRN Garry Ortiz MD Or glucagon (Glucagen) (1 mg/mL) injection solution 1 mg 1 mg Intramuscular Q15 Min PRN Garry Ortiz MD insulin lispro (HumaLOG;Admelog) (100 unit/mL) subcutaneous injection vial 1-4 Units 1-4 Units Subcutaneous TID AC Garry Ortiz MD ondansetron (pf) (Zofran) (2 mg/mL) injection 4 mg 4 mg Intravenous Q8H PRN Garry Ortiz MD 4 mg at 10/30/23 1548 LORazepam (Ativan) tablet 0.5 mg 0.5 mg Oral Q6H PRN Garry Ortiz MD 0.5 mg at 10/30/23 1548 loperamide (Imodium A-D) capsule 2 mg 2 mg Oral 4 Times Daily PRN Garry Ortiz MD 2 mg at 10/30/23 1553 hydrOXYzine (Atarax) tablet 50 mg 50 mg Oral Q6H PRN Garry Ortiz MD sodium chloride 0.9 % (flush) (BD PosiFlush Normal Saline 0.9) flush 5 mL 5 mL Intravenous BID Garry Ortiz MD 5 mL at 10/29/23 2100 sodium chloride 0.9 % (flush) (BD PosiFlush Normal Saline 0.9) flush 5-20 mL 5- 20 mL Intravenous Q1Min PRN Garry Ortiz MD lidocaine (Xylocaine) 1% (10 mg/mL) injection 3 mg 0.3 mL Subcutaneous Once PRN Garry Ortiz MD enoxaparin (Lovenox) (40 mg/0.4 mL) subcutaneous injection 40 mg 40 mg Subcutaneous Nightly Garry Ortiz MD 40 mg at 10/29/232017 acetaminophen (Tylenol) tablet 650 mg 650 mg Oral Q6H PRN Garry Ortiz MD 650 mg at 10/29/238 ceFAZolin (Ancef) 2 g vial attach to sodium chloride 0.9% 100 mL Mini-Bag Plus 2 g Intravenous Q8H Garry Ortiz MD Stopped at 10/30/23 1213 buprenorphine-naloxone (Suboxone) sublingual tablet 12 mg of opiate 12 mg of opiate Sublingual BID Garry Ortiz MD 12 mg of opiate at 10/29/23 2018 Pertinent Medical Review of Systems: Physical Exam: Last value Range last 24 hrs Temperature Temp: 36.8 ??C (98.2 ??F) Temp: [36.8 ??C (98.2 ??F)-37 ??C (98.6 ??F)] Heart Rate Heart Rate: 80 Heart Rate: -- Blood Pressure BP: 144/84 BP: (114-145)/(65-88) Respiratory Rate Resp: 16 Resp: [15-16] SpO2 SpO2: 97 % SpO2: [95 %-99 %] Mental Status Examination: Musculoskeletal System: Muscle Strength/Tone (note atrophy, abnormal movements): Gait and Station: not assessed Psychiatric: Appearance: age appropriate and several tattoos Behavior: evasive with interview, fidgety, and intermittent eye contact Speech: normal pitch, normal volume, and normal rate Language: fluent in latvian Mood: My anxiety is through the roof Affect: mood-congruent Thought Process: linear Associations: intact Thought Content: no homicidal ideation no suicidal ideation Perception: not observed responding to internal stimuli Orientation: grossly intact by interview Attention/Concentration: grossly intact Cognition: grossly intact by interview Memory: recent and remote memory grossly intact Fund of Knowledge: appropriate for age and level of functioning Insight: limited Judgment: limited Pertinent Diagnostic Testing (include your own review/interpretation of results): Last wbc, hgb, hct plt Recent Labs 10/30/23 0951 WBC 5.5 HGB 10.4* HCT 32.2* Last 3 wbc, hgb, hct plt Recent Labs 10/30/23 0951 10/29/23 0349 10/28/23 1040 WBC 5.5 6.6 6.6 HGB 10.4* 9.5* 9.7* HCT 32.2* 28.9* 29.3* PLATELET 226 239 244 Last 3 Lytes Recent Labs 10/30/23 0951 10/29/23 0349 10/28/23 1040 NA 136 139 138 K 4.1 4.0 3.9 CL 105 104 102 CO2 18* 28 29 BUN 13 16 16 CREATININE 0.75* 0.82 0.71* Last 3 LFTs Recent Labs 10/30/23 0951 10/29/23 0349 10/28/23 1040 10/02/23 1247 AST 124* 172* 195* 79* ALT 112* 178* 191* 103* ALKPHOS 93 103 109 78 BILITOT 0.3 0.3 0.3 0.3 BILIDIR 0.1 0.1 -- 0.1 Last Ca, Mg, Phos Recent Labs 10/30/23 0951 10/29/23 0349 10/28/23 1040 CALCIUM 8.3* < > 8.5 MAGNESIUM -- -- 0.79 < > = values in this interval not displayed. Last 3 Coags No results for input(s): PT, INR, PTT in the last 168 hours. Last 3 ProBNP, Trop, CK Recent Labs 10/28/23 1040 PROBNP 1,432* Last 3 TFT Recent Labs 10/28/23 1040 TSH 1.67 Last 3 Lipids No results for input(s): CHLPL, HDL, LDLCHOL, LDLDIRECT, TRIG in the last 7068 hours. Last 3 HgbA1C Recent Labs 10/01/23 0921 HA1C 6.2* Last CRP, SEDRATE Recent Labs 10/28/23 1040 CRP 12.0* SEDRATE 8 Last 3 CBC Recent Labs 10/30/23 0951 10/29/23 0349 10/28/23 1040 WBC 5.5 6.6 6.6 Assessment: Marcos Camejo is a 43 y.o. male with history of IVDU admitted to [facility] for bilateral hand cellulitis MSSA+. Psychiatry consulted for xylazine withdrawal. On exam today, Marcos is most likely experiencing opoid withdrawal considering reported symptoms ofnausea, vomiting, diarrhea, lacrimation and yawning. Given his multiple upper extremity sores it ishighly likely his fentanyl was laced with xylazine. Though xylazine is not well studied nor reported in the medical literature, withdrawal symptoms may overlap those of opioid withdrawal and also includes anxiety and restlessness. Would first recommend starting COWS protocol and offering suboxone to Marcos; now that he is noticing withdrawal symptoms it is less likely he will experience precipitated withdrawal. For xylazine withdrawal, can try tizanidine which has shown benefit. Could also consider clonidine or benzodiazapines if above is ineffective. Diagnoses: OUD, recurrent, severe complicated by xylazine use Plan/Recommendations: - Start COWS protocol with routine monitoring - reviewed with consulting provider - Continue offering suboxone 12 mg for opioid withdrawal (currently removed from medication list) - Start Tizanidine 2 mg PO q4-6 hours for c/f xylazine withdrawal Patient on IEA Status? IEA: NO, patient is not on IEA and does not have any psychiatric contraindication to discharge at the time of this assessment. Recommendations were communicated to primary team. Lola Art MD 10/30/2023 Coding Determination 1. Problems/Diagnosis (check one): High Minimal refers to a single minor problem. Example: Poor sleep due to noise in the hospital room. Low refers to two minor problems, or one stable/uncomplicated illness. Examples: Major depression in remission; adjustment disorder with depressed mood. Moderate refers to one illness with new onset, progression, exacerbation, complication, or side effects; or two stable problems. Examples: Recurrent major depression with exacerbation or progression or side effects of treatment; stable schizophrenia and alcohol use disorder; acute alcohol withdrawal; anorexia with systemic symptoms such as bradycardia. High refers to one chronic problem with severe progression, exacerbation, or side effects; or one problem with threat to life or bodily function. Examples: any psychiatric illness with suicidal or homicidal ideation or thoughts of self- harm; delirium; any eating disorder with severe medical consequences; major depression with significant functional decline; any severe side effects of psychiatric interventions (NMS, hyponatremia, lithium toxicity syndrome, etc); any psychiatric illness meeting the severe specifier. 2. Data Review/Analysis (check one): Moderate Low refers to (1) review of notes and test results or (2) assessment from a collateral source. Moderate requires one of the following: All three of the following: review of notes, review of test results, assessment from a collateral source. Discussion of test interpretation or management with an external physician/provider (primary team included). High requires both of the following (same options from Moderate above): All three of the following: review of notes, review of test results, assessment from a collateral source. Discussion of test interpretation or management with an external physician/provider (primary team included). 3. Patient Risk (check one): High Minimal refers to minimal risk from additional testing/treatment. Example: Bereavement. No medications recommended. Low refers to low risk from additional testing/treatment. Example: only interventions are minimallyinvasive or otherwise low risk (serum labs, melatonin, continuing an SSRI). Moderate refers to moderate risk from additional testing/treatment. Examples: starting prescriptionmedication with only moderate risk. Moderate also includes diagnosis or treatment significantly limited by social determinants of health such as food/housing insecurity, transportation issues, financial limitations, etc. High refers to high risk from additional testing/treatment. Examples: therapies requiring monitoring of serum level (lithium, valproate), medications with specific identified risks (QTc-prolonging medications in certain patients, SSRIs in patients with risk of bleeding). Discussions of higher levels of psychiatric intervention/care (1:1 sitter, voluntary psychiatric hospitalization, IEA, ECT). Patients who may require medical interventions against their wishes when they lack capacity to refuse those interventions; patients who lack capacity to choose to leave the hospital AMA. Discussion of high risk interventions that may be necessary to ensure safety (parenteral medications for managementof agitation; restraints; security presence). Risk of acute withdrawal. Complexity of MDM Determination: Choose the appropriate level in the first 3 columns based upon what you indicated above. Then 2 outof 3 elements must be met to qualify for the highest appropriate level of complexity. Problems/Diagnosis Data Review/Analysis Patient Risk Complexity of Medical Decision-Making CPT CODE [] Minimal - [] Minimal [] Straightforward 23863 [] Low [] Low [] Low [] Low 22871 [] Moderate [x] Moderate [] Moderate [] Moderate 58589 [x] High [] High [x] High [x] High 79834 Final Coding Determination: High Associated attestation - Milo Zuleta MD - 10/31/2023 7:38 AM EDT Psychiatry Attending Attestation I saw and evaluated the patient on 10/31/23, which is within 24 hours of the service described in Dr. Art's note. I reviewed the patient???s history during the visit and I agree with the details aswritten. My exam confirms the resident's findings. The assessment and plan were formulated in discussion with me and I agree with them as documented. Major issues addressed/discussed: Patient assessed at bedside where he was noted to be sleeping comfortably. He was able to awaken when his name was called but did not open his eyes. He was irritable with assessment and responded tersely to questions. The patient noted that he still feels uncomfortable due to withdrawal but does not elaborate on his specific symptoms. He notes that he would be comfortable with trialing buprenorphine later today. He declines to talk about his substance use at this time. Per chart review, patient was given one PRN dose of tizanadine earlier this morning. Can continue with this. Patient should continue to be monitored on COWS protocol with buprenorphine per protocol. Milo Zuleta MD, MPH 10/31/23 Department of Psychiatry Pager #[phone] * Plan of Care - Viji Mack RN - 10/29/2023 3:34 PM EDT OUTCOME EVALUATION NOTE: INDIVIDUALIZED FALL PREVENTION INTERVENTIONS: Patient-specific fall risk factors per assessment: [current deficits]: none Assistance [level of assistance required for transfers and ambulation]: independent Supervision [direct monitoring required during toileting and ADLs]: independent Surveillance [continuous indirect monitoring]: masimo Patient-specific fall prevention interventions for sensory deficits provided, if applicable: [X] Yes call light/ urinal within reach CARE PLAN GOAL OUTCOME EVALUATION: Problem: Adult [...] Outcome: Ongoing (Interventions Implemented as Appropriate) Problem: Fluid Volume Excess Goal: Fluid Balance Outcome: Ongoing (Interventions Implemented as Appropriate) * Initial Assessments - Hillary Anguiano RN - 10/29/2023 2:40 PM EDT Office of Care Management Initial Assessment Hillary Anguiano RN reviewed record and discussed patient with Care Team. Source of Information: Team, bedside nurse, medical record, and Patient, Significant Other Introduced self/reviewed role; services accepted. Patient is AAOx3, significant other is at bedside. Supportive and helpful. She will be able to bring patient home when medically ready. Denies any needs at this time. Admitted From: Home Reason for Hospitalization: bilateral hand and foot swelling c/f cellulitis +/- volume overload. Covid Vaccination Status: 1st & 2nd dose Last COVID test: Lab Results Component Value Date [id number] Not Detected 10/28/2023 Past medical History: No past medical history on file. Hospitalizations Within the Past 30 Days: no previous admission in last 30 days Current Decision-Making Capacity: Self If AD's have not been completed the following surrogate Dayanara Cage ( friend ) would be surrogate decision maker per [place] surrogate decision making law. (Only good for 180 days) Any patient receiving care in [place] must abide by [place] law. The hierarchy for surrogate decision making [...] (i) The agent with financial power of trust administrative assistant or a conservator appointed in accordance with RSA 464-A. (j) The guardian of the patient???s estate. Advance Care Planning: Attempt Cardiopulmonary Resuscitation - Inpatient <no information> -Advanced Directive: No, declines Current Coping/Education/Information Needs: able to verbalize needs Current Functional Ability: Independent Functional Status Prior to Admission: Independent Prior ADLs & IADLs: Independent with all ADLs & IADLs Home Environment: Others in the home: child(gordon), adult, significant other (11 year old daughter). Current Living Arrangements: home/apartment/condo. Accessibility Concerns:lives in a house with 3 mar[address], has flight of stairs ( 18 steps) bedroom located in 2nd floor. In the last 12 months, was there a time when you were not able to pay the mortgage or rent on time?: No Resource / Environmental Concerns: Resource/Environmental Concerns: none In the past 12 months, has lack of transportation kept you from medical appointments or from getting medications?: No In the past 12 months, has lack of transportation kept you from meetings, work, or from getting things needed for daily living?: No Current DME: none Home Address confirmed as: [address] [place] [id number] Social & Family Supports: All names listed below confirmed with patient as current and correct Extended Emergency Contact Information Primary Emergency Contact: Dayanara Cage Address: [address] [place] [address] [place] [phone] [facility] Relation: Friend Current Care Provided by: self Provides Primary Care For: no one Caregiver if needed: significant other Quality of Family relationships: involved, supportive Community Resources being provided currently: none Behavioral Health History: hx of PTSD Substance Use/Abuse listed: Social History [...] points: Addiction likely Other Pertinent/Service Specific Information: denies Health/Prescription Coverage: Primary Insurance: [place] Payor[place] / Plan: [place] / Product Type: *No Product type* / Secondary Insurance: N/A ; Prescription Coverage: Yes Preferred Pharmacy: [phone] [place] Status: Patient is a : No Primary Care Provider confirmed: Milo Baer MD [phone] Patient/Caregiver Goals of Treatment: return to home Potential Needs for Transition of Care: none Agency Referrals: Not Applicable Transportation: no concerns Transportation Anticipated: family or friend will provide Concerns to be Addressed: discharge planning Assessment: Patient is admitted to medicine service for bilateral hand and foot swelling c/f cellulitis +/- volume overload. Plan: Pending clinical course. Patient and significant other denies any needs at this time of assessment. Will monitor, and a member of the Care Management/WINDOWS MOBILE DEVELOPER team will continue to monitor progress,follow for continuity of care and assist with transition of care planning. BESSY Molina, RN, CM * Plan of Care - Bashir Marie MD - 10/29/2023 11:17 AM EDT Images from the original note were not included. Department of Cardiology Shipping Specialist Advice Note This note represents informal advice provided to the primary team, as specifically requested. I have reviewed the relevant data with the requesting team. This patient was not seen or examined and will not be staffed as a consult with an attending Development Writer. Briefly, Marcos Camejo is a 43 y.o. male with history of intravenous drug use (meth and opiates) with prior MSSA bacteremia secondary to MSSA cellulitis, Hepatitis C, PTSD who presented with upper and lower extremity and genital swelling in the context of moderate to severe tricuspid regurgitation. He was hospitalized in September 2023 with cellulitis and MSSA filled abscess complicated by MSSA bacteremia (1/4 cultures). He left AMA during that admission. He has felt progressively worse prompting his current presentation. His vitals are currently stable and he is not on any oxygen. Labs are notable for transaminitis, elevated proBNP, and elevated CRP. Blood cultures thus far have no growth at 24hrs. A TTE yesterday showed mildly dilated RV, tethered mitral and tricuspid leaflets with secondary moderate MR and moderate severe TR with dilated IVC. He is on Ancef for antimicrobial therapy. Cardiology was asked to comment on: atrioventricular valve regurgitation, volume overload, and endocarditis. Based on the above, it seems that he has significant volume overload with right side predominant symptoms and elevated transaminases (congestion vs drug vs Hep C vs substance misuse). His degree of regurg is likely secondary to volume overload but could also be secondary to vegetative process that was incompletely visualized on TTE. I think it is plausible that he has endocarditis given MSSA bacteremia and MARIBEL would not be unreasonable. Unfortunately, this cannot happen today due to patient given a diet and scheduling concerns. As an initial step, I have recommended IV diuresis through the weekend (considering clinical volume overload and IVC is dilated/noncollapsible with estimated right atrial pressure of 15 mmHg). He should be made NPO at midnight on Wednesday night for possible MARIBEL on Wednesday. I will see the patient on Wednesday morning once euvolemic and blood cultures resulted to determine if we will proceed with MARIBEL. If additional advice is needed, a formal Cardiology consultation should be called. Bashir Marie MD Shipping Specialist [phone] * Consult Note - Annette Plascencia RPH - 10/29/2023 12:17 AM EDT TelePharmacy Home Medication List Update for Medication Reconciliation 10/29/23 12:17 AM Marcos Camejo 1980 Allergies Allergen Reactions Penicillins Hives Tolerated ceftriaxone 09/2023 Person Interviewed: patient Quality of Interview/accuracy of medication list: good Sources used to compile medication list: [x] Epic medication list [x] SureScripts/Dispense Report [] PCP/Specialist list [] Retail pharmacy [] Patient list [] MAR [] Other Changes made to home medication list: Additions: Vitamin D 1000units po daily Ibuprofen 800mg po bid Suboxone 12/3mg 2 films SL daily Deletions: Fish oil Methadone Multivitamin Naproxen Vitamin C Abilify Chlorhexidine Gabapentin Singulair Flonase Sildenafil Testosterone Penicillin Clindamycin Changes: None Additional Notes: Updated medication list with information provided by patient. Recommended changes: None The home medication list is now updated to the best of my knowledge and is ready to be reconciled by the provider. Please contact the TelePharmacy Medication Reconciliation Pharmacist at for any questions. Annette Plascencia RPH * Plan of Care - Eddie Ho RN - 10/28/2023 6:34 PM EDT Asked patient about urine output. He states he voided a normal amount earlier this shift and is notconcerned about low urine output. Educated patient on fluid retention r/t his swelling. Patient will alert staff when he voids for I&O's. * Consult Note - Jama Morocho RPH - 10/28/2023 2:27 PM EDT [facility] Pharmacokinetics Note Drug: Vancomycin Pharmacokinetic target: AUC24 (range) 400-600 mg/L.hr Marcos Camejo is a(n) 43 years old male initiating Vancomycin for bacteremia Recent measured serum creatinine values: 10/28/2023 10:40 0.71 mg/dL 10/04/2023 04:54 0.75 mg/dL Assessment: Analysis using Print[employer] gives the following patient-specific pharmacokinetic parameters: CL: 5.25 L/hr V: 64.3 L T1/2: 9.28 hours At this time we recommend a regimen of 1250 mg IV every 8 hours, which the patient was previously stable on. Recommendations: - Vancomycin 1250 mg IV every 8 hours - Obtain Vancomycin level to be determined - Continue to monitor serum creatinine Jama Morocho documented in this encounter Plan of Treatment Upcoming Encounters Date Type Department Care Team (Late st Contact Info) Description 08/01/2024 8:30 AM EST Office [place] [address] Denae Wilson MD [facility] [place] [address] documented as of this encounter Procedures Procedure Name Priority Date/Time Associated Diagnosis Comments POCT GLUCOSE Routine 10/31/2023 11:39 AM EDT POCT GLUCOSE Routine 10/31/2023 8:11 AM EDT HEMOGRAM Routine 10/31/2023 3:01 AM EDT DIFFERENTIAL, AUTOMATED Routine 10/31/2023 3:01 AM EDT CBC (WITH DIFF) Routine 10/31/2023 3:01 AM EDT HEPATIC FUNCTION PANEL Routine 10/31/2023 3:01 AM EDT BASIC METABOLIC PANEL Routine 10/31/2023 3:01 AM EDT POCT GLUCOSE Routine 10/30/2023 9:04 PM EDT POCT GLUCOSE Routine 10/30/2023 4:10 PM EDT POCT GLUCOSE Routine 10/30/2023 11:44 AM EDT HEMOGRAM Routine 10/30/2023 9:51 AM EDT DIFFERENTIAL, AUTOMATED Routine 10/30/2023 9:51 AM EDT CBC (WITH DIFF) Routine 10/30/2023 9:51 AM EDT HEPATIC FUNCTION PANEL Routine 10/30/2023 9:51 AM EDT BASIC METABOLIC PANEL Routine 10/30/2023 9:51 AM EDT US ABDOMEN LIMITED Routine 10/29/2023 7: 46 AM EDT HEMOGRAM Routine 10/29/2023 3:49 AM EDT DIFFERENTIAL, AUTOMATED Routine 10/29/2023 3:49 AM EDT CBC (WITH DIFF) Routine 10/29/2023 3:49 AM EDT HEPATIC FUNCTION PANEL Routine 10/29/2023 3:49 AM EDT BASIC METABOLIC PANEL Routine 10/29/2023 3:49 AM EDT RAPID DRUG SCREEN W/O CONFIRMATION, URINE STAT 10/28/2023 9:50 PM EDT RAPID DRUG SCREEN, URINE STAT 10/28/2023 5:16 PM EDT DUPLEX FOR DVT BILAT LEGS Routine 10/28/2023 4:43 PM EDT Bacteremia due to Staphylococcus aureus BLOOD CULTURE STAT 10/28/2023 11:48 AM EDT ECHO COMPLETE Routine 10/28/2023 11:02 AM EDT Bacteremia due to Staphylococcus aureus TSH CASCADE STAT 10/28/2023 10:40 AM EDT CRP, ACUTE INFLAMMATION STAT 10/28/2023 10:40 AM EDT MENDOZA TUBE HOLD STAT 10/28/2023 10:40 AM EDT HEMOGRAM STAT 10/28/2023 10:40 AM EDT DIFFERENTIAL, AUTOMATED STAT 10/28/2023 10:40 AM EDT BLUE TUBE HOLD STAT 10/28/2023 10:40 AM EDT BLOOD CULTURE STAT 10/28/2023 10:40 AM EDT SEDIMENTATION RATE STAT 10/28/2023 10 :40 AM EDT CBC (WITH DIFF) STAT 10/28/2023 10:40 AM EDT PRO-BRAIN NATRIURETIC PEPTIDE STAT 10/28/2023 10:40 AM EDT MAGNESIUM STAT 10/28/2023 10:40 AM EDT COMPREHENSIVE METABOLIC PANEL STAT 10/28/2023 10:40 AM EDT LACTATE, WHOLE BLOOD STAT 10/28/2023 9:40 AM EDT BLOOD CULTURE STAT 10/28/2023 9:40 AM EDT RAPID COVID-19 PCR ([facility]) STAT 10/28/2023 9:34 AM EDT MRSA PCR SCREEN STAT 10/28/2023 9:34 AM EDT XR CHEST ONE VIEW STAT 10/28/2023 9:2 0 AM EDT EKG 12-LEAD STAT 10/28/2023 9:15 AM EDT documented in this encounter Results * POCT Glucose (10/31/2023 11:39 AM EDT) Glucose, POC 86 65 - 199 mg/dL [facility] Comment: Supplemental ranges: <140 mg/dL before meals <180 mg/dL all other times of the day Blood 10/31/2023 11:3 9 AM EDT 10/31/2023 11:39 AM EDT Zachary Camp MD POINT OF CARE TEST O RDERAMELISSA Performing Organization Address City/[facility] Co de Phone Number [facility] [place] [address] * POCT Glucose (10/31/2023 8:11 AM EDT) Glucose, POC 112 65 - 199 mg/dL [facility] Comment: Supplemental ranges: <140 mg/dL before meals <180 mg/dL all other times of the day Blood 10/31/2023 8:11 AM EDT 10/31/2023 8:11 AM EDT Zachary Camp MD POINT OF CARE TEST O RDERABLES Performing Organization Address City/[facility]/ZIP Co de Phone Number [facility] [place] [address] * Differential, Automated (10/31/2023 3:01 AM EDT) Neutrophil % 62.9 % [facility] Neutrophil Absolute 3.80 1.70 - 6.10 x10(3)/[facility] Lymph % 23.5 % [facility] Lymphocytes Abs 1.4 0.9 - 3.2 x10(3)/[facility] Monocyte % 8.8 % [facility] Monocyte Abs 0.5 0.3 - 0.9 x10(3)/[facility] Eos % 3.1 % [facility] Eosinophils Abs 0.2 0.0 - 0.4 x10(3)/[facility] Basophil % 1.0 % [facility] Baso Absolute 0.1 0.0 - 0.1 x10(3)/[facility] Immature Gran % 0.70 % [facility] Comment: Immature granulocytes(IG's)percentage and absolute count will include metamyelocytes, myelocytes, and promyelocytes. Blood smears from CBCs yielding IG's will be scanned manually for concordance. If this scan disagrees with the automated IG or if promyelocytes are noted, a manual differential will be performed. Immature Gran Absolute 0.04 0.00 - 0.04 x10(3)/[facility] Blood 10/31/2023 3:01 AM EDT 10/31/2023 3:20 AM EDT Narrative Resulting Agency Comment Spec In Lab Garry Ortiz MD HEMATOLOGY ORDERABLE S Performing Organization Address City/State/[facility] Co de Phone Number [facility] [place] [address] * (ABNORMAL) Hemogram (10/31/2023 3:01 AM EDT) White Blood Cell 6.0 4.0 - 9.5 x10(3)/mc L [facility] Red Blood Cell 3.41(L) 4.58 - 5.54 x10(6)/mc L [facility] Hemoglobin 10.1(L) 13.7 - 16.5 g/dL [facility] Hematocrit 33.2(L) 40.5 - 48.5 % [facility] Mean Cell Volume 97.4(H) 82.9 - 93.1 fL [facility] Comment: Interpret results with Caution. Specimen rerun and specimen ID confirmed.. This result has been called to MARY MAYES by Keira Poole on 10 31 2023 at 0341, and has been read back. Mean Cell Hemoglobin 29.6 27.5 - 32.1 pg [facility] Mean Cell Hemoglobin Concentration 30.4(L) 32.0 - 35.7 g/dL [facility] Platelet 260 145 - 357 x10(3)/mc L [facility] RDW Standard Deviation 56.0(H) 36.0 - 45.0 fL [facility] RDW coefficient of variation 15.6(H) 11.4 - 13.8 % [facility] Mean Platelet Volume 9.7 7.6 - 12.9 fL [facility] NRBC% auto 0.0 % [facility] NRBC Absolute 0.000 0.000 - 0.000 x10(3)/mc L [facility] Blood 10/31/2023 3:01 AM EDT 10/31/2023 3:20 AM EDT Narrative Resulting Agency Comment Spec In Lab Garry Ortiz MD HEMATOLOGY ORDERABLE S [facility] [place] [address] * (ABNORMAL) Hepatic Function Panel (10/31/2023 3:01 AM EDT) Protein, Total 6.0(L) 6.1 - 8.0 g/dL [facility] Albumin 2.9(L) 3.2 - 5.2 g/dL [facility] Aspartate Aminotransferase 119(H) 0 - 39 unit/L [facility] Alanine Aminotransferase 104(H) 0 - 55 unit/L [facility] Alkaline Phosphatase 98 40 - 130 unit/L [facility] Bilirubin, Total <0.2(L) 0.2 - 1.3 mg/dL [facility] Bilirubin, Direct 0.1 0.0 - 0.3 mg/dL [facility] Blood 10/31/2023 3:01 AM EDT 10/31/2023 3:20 AM EDT Narrative Resulting Agency Comment Spec In Lab Leatha Finn MD CHEMISTRY ORDERABLE S [facility] [place] [address] * (ABNORMAL) Basic Metabolic Panel (non-fasting) (10/31/2023 3:01 AM EDT) Glucose 201(H) 65 - 199 mg/dL [facility] Comment:Diabetes: >=200 mg/d L plus symptoms Blood Urea Nitrogen 8(L) 10 - 20 mg/dL [facility] Creatinine 0.78(L) 0.80 - 1.50 mg/dL [facility] Sodium 139 135 - 145 mmol/L [facility] Potassium 3.4(L) 3.5 - 5.0 mmol/L [facility] Comment: Please note: ??Patients with WBC >100,000 may have falsely elevated Potassium levels. ??For accurate Potassium quantification in these patients send serum separator tube (gold top) for subsequent determinations. ??Contact the Clinical Chemistry Laboratory if there are any questions. Chloride 108(H) 98 - 107 mmol/L [facility] Carbon Dioxide 22 22 - 31 mmol/L [facility] Anion Gap 9 5 - 15 mmol/L [facility] Calcium 8.2(L) 8.5 - 10.5 mg/dL [facility] Est Glomerular Filtration Rate 113 >=60 mL/min/1. 73 m?? [facility] Comment: This patient's estimated GFR was [...] Resulting Agency Comment Spec In Lab Leatha iFnn MD CHEMISTRY ORDERABLE S [facility] [place] [address] * POCT Glucose (10/30/2023 9:04 PM EDT) Glucose, POC 163 65 - 199 mg/dL [facility] Comment: Supplemental ranges: <140 mg/dL before meals <180 mg/dL all other times of the day Blood 10/30/2023 9:04 PM EDT 10/30/2023 9:04 PM EDT Zachary Camp MD POINT OF CARE TEST O CARLOS Performing Organization Address [facility]/ZIP Co de Phone Number [facility] [place] [address] * POCT Glucose (10/30/2023 4:10 PM EDT) Glucose, POC 173 65 - 199 mg/dL [facility] Comment: Supplemental ranges: <140 mg/dL before meals <180 mg/dL all other times of the day Blood 10/30/2023 4:10 PM EDT 10/30/2023 4:10 PM EDT Zachary Camp MD POINT OF CARE TEST O CARLOS Performing Organization Address City/[facility]/ZIP Co de Phone Number [facility] [place] [address] * POCT Glucose (10/30/2023 11:44 AM EDT) Glucose, POC 85 65 - 199 mg/dL [facility] Comment: Supplemental ranges: <140 mg/dL before meals <180 mg/dL all other times of the day Blood 10/30/2023 11:4 4 AM EDT 10/30/2023 11:44 AM EDT Zachary Camp MD POINT OF CARE TEST O RDERABLES [facility] [place] [address] * Differential, Automated (10/30/2023 9:51 AM EDT) Neutrophil % 68.7 % [facility] Neutrophil Absolute 3.78 1.70 - 6.10 x10(3)/[facility] Lymph % 19.2 % [facility] Lymphocytes Abs 1.1 0.9 - 3.2 x10(3)/[facility] Monocyte % 8.0 % [facility] Monocyte Abs 0.4 0.3 - 0.9 x10(3)/[facility] Eos % 3.1 % [facility] Eosinophils Abs 0.2 0.0 - 0.4 x10(3)/[facility] Basophil % 0.5 % [facility] Baso Absolute 0.0 0.0 - 0.1 x10(3)/[facility] Immature Gran % 0.50 % [facility] Comment: Immature granulocytes(IG's)percentage and absolute count will include metamyelocytes, myelocytes, and promyelocytes. Blood smears from CBCs yielding IG's will be scanned manually for concordance. If this scan disagrees with the automated IG or if promyelocytes are noted, a manual differential will be performed. Immature Gran Absolute 0.03 0.00 - 0.04 x10(3)/[facility] Blood 10/30/2023 9:51 AM EDT 10/30/2023 9:57 AM EDT Narrative Resulting Agency Comment Spec In Lab Garry Ortiz MD HEMATOLOGY ORDERABLE S [facility] [place] [address] * (ABNORMAL) Hemogram (10/30/2023 9:51 AM EDT) [facility] White Blood Cell 5.5 4.0 - 9.5 x10(3)/mc L [facility] Red Blood Cell 3.56(L) 4.58 - 5.54 x10(6)/mc L [facility] Hemoglobin 10.4(L) 13.7 - 16.5 g/dL [facility] Hematocrit 32.2(L) 40.5 - 48.5 % [facility] Mean Cell Volume 90.4 82.9 - 93.1 fL [facility] Mean Cell Hemoglobin 29.2 27.5 - 32.1 pg [facility] Mean Cell Hemoglobin Concentration 32.3 32.0 - 35.7 g/dL [facility] Platelet 226 145 - 357 x10(3)/ L [facility] RDW Standard Deviation 51.5(H) 36.0 - 45.0 fL [facility] RDW coefficient of variation 15.3(H) 11.4 - 13.8 % [facility] Mean Platelet Volume 9.4 7.6 - 12.9 fL [facility] NRBC% auto 0.0 % [facility] NRBC Absolute 0.000 0.000 - 0.000 x10(3)/[facility] Blood 10/30/2023 9:51 AM EDT 10/30/2023 9:57 AM EDT Narrative Resulting Agency Comment Spec In Lab Garry Ortiz MD HEMATOLOGY ORDERABLE S [facility] [place] [address] * (ABNORMAL) Hepatic Function Panel (10/30/2023 9:51 AM EDT) [facility] Protein, Total 5.8(L) 6.1 - 8.0 g/dL [facility] Albumin 2.4(L) 3.2 - 5.2 g/dL [facility] Aspartate Aminotransferase 124(H) 0 - 39 unit/L [facility] Alanine Aminotransferase 112(H) 0 - 55 unit/L [facility] Alkaline Phosphatase 93 40 - 130 unit/L [facility] Bilirubin, Total 0.3 0.2 - 1.3 mg/dL [facility] Bilirubin, Direct 0.1 0.0 - 0.3 mg/dL [facility] Blood 10/30/2023 9:51 AM EDT 10/30/2023 9:57 AM EDT Narrative Resulting Agency Comment Spec In Lab Leatha Finn MD CHEMISTRY ORDERABLE S Performing Organization Address City/State/[facility] Co de Phone Number [facility] [place] [address] * (ABNORMAL) Basic Metabolic Panel (non-fasting) (10/30/2023 9:51 AM EDT) [facility] Glucose 215(H) 65 - 199 mg/dL [facility] Comment:Diabetes: >=200 mg/d L plus symptoms Blood Urea Nitrogen 13 10 - 20 mg/dL [facility] Creatinine 0.75(L) 0.80 - 1.50 mg/dL [facility] Sodium 136 135 - 145 mmol/L [facility] Potassium 4.1 3.5 - 5.0 mmol/L [facility] Comment: Please note: ??Patients with WBC >100,000 may have falsely elevated Potassium levels. ??For accurate Potassium quantification in these patients send serum separator tube (gold top) for subsequent determinations. ??Contact the Clinical Chemistry Laboratory if there are any questions. Chloride 105 98 - 107 mmol/L [facility] Carbon Dioxide 18(L) 22 - 31 mmol/L [facility] Anion Gap 13 5 - 15 mmol/L [facility] Calcium 8.3(L) 8.5 - 10.5 mg/dL [facility] Est Glomerular Filtration Rate 115 >=60 mL/min/1. 73 m?? [facility] Comment: This patient's estimated GFR was [...] and symptoms in addition to eGFR. Blood 10/30/2023 9:51 AM EDT 10/30/2023 9:57 AM EDT Narrative Resulting Agency Comment Spec In Lab Leatha Finn MD CHEMISTRY ORDERABLE S [facility] [place] [place] [address] * US Abdomen Limited (10/29/2023 7:46 AM EDT) Anatomical Region Laterality Modality Abdomen Ultrasound 10/29/2023 7:43 AM EDT Impressions 10/29/2023 8:45 AM EDT 1. ??Edematous gallbladder wall measuring 5 mm in thickness with trace pericholecystic fluid. No gallstones or positive sonographic Mast's sign. In the setting of acute hepatitis, this is most likely a secondary finding. 2. ??Borderline dilation of the common bile duct, measures 7.5 mm. 3. ??Normal hepatic echogenicity without focal lesion. 4. ??Patent portal vein with normal directionality of flow. I have personally reviewed the image(s) and the resident's interpretation and agree with the findings, Chang Cisneros MD at 10/29/2023 8:37 AM Thank you for letting us participate in the care of this patient. If you are a health care provider and have any questions regarding this report, please contact the number above. For patients who have questions, please contact the health rn patient care that requested your imaging first. ?Chang Cisneros, Staff Physician Electronically Signed Final Report ?? 10/29/2023 08:45 am Narrative 10/29/2023 8:45 AM EDT Abdominal ? (Signed Final 10/29/2023 08:45 am) PATIENT INFO: ID #: ? [id number] ?: ??[birth year] (43 yrs)(M) Name: ? MARCOS CAMEJO ?Visit Date: 10/29/2023 07:43 am PERFORMED BY: Attending: ?Amelia PEERZ, Chang Harding Resident: ? Airc Chun MD Performed By: ? Franci Swenson RDMS Referred By: ?ANABELL SETHI Location: ? [place] SERVICE(S) PROVIDED: UABDLIM - Abdominal Limited Survey Single ? [id number] Organ or Quadrant - [id number] INDICATIONS: Elevated LFTs ------ LIVER: ------ Right Lobe Length: ?? 18.6 ?? cm Echogenicity/Echotexture: ?? Normal Portal Veins: ?Hepatopetal GALLBLADDER: Cholelithiasis: ?No stones visualized Wall Thickness: ?4.8 mm Focal Tenderness: ?Negative sonographic Mast's sign Comment: ?Trace pericholecystic fluid seen. Wall thickened. BILIARY TRACT: Intrahepatic Ducts: ?? Normal Extrahepatic Ducts: ?? Normal Common Duct Size: ? 7.5 ? mm RIGHT KIDNEY: Size (cm) ?L: ??11.3 Cortical Thickness: ?Normal Cortical Echogenicity: ?? Normal Hydronephrosis: ?No sonographic evidence ---- IVC: ---- Normal in caliber where visualized. Procedure Note Chang Cisneros MD - 10/29/2023 Abdominal (Signed Final 10/29/2023 08:45 am) PATIENT INFO: ID #: [id number] : [birth year] (43 yrs)(M) Name: MARCOS CAMEJO Visit Date: 10/29/2023 07:43 am PERFORMED BY: Attending: Chang Cisneros MD Resident: Aric Chun MD Performed By: Franci Swenson RDMS Referred By: ANABELL SETHI Location: [place] SERVICE(S) PROVIDED: UABDLIM - Abdominal Limited Survey Single [id number] Organ or Quadrant - [id number] INDICATIONS: Elevated LFTs ------ LIVER: ------ Right Lobe Length: 18.6 cm Echogenicity/Echotexture: Normal Portal Veins: Hepatopetal GALLBLADDER: Cholelithiasis: No stones visualized Wall Thickness: 4.8 mm Focal Tenderness: Negative sonographic Mast's sign Comment: Trace pericholecystic fluid seen. Wall thickened. BILIARY TRACT: Intrahepatic Ducts: Normal Extrahepatic Ducts: Normal Common Duct Size: 7.5 mm RIGHT KIDNEY: Size (cm) L: 11.3 Cortical Thickness: Normal Cortical Echogenicity: Normal Hydronephrosis: No sonographic evidence ---- IVC: ---- Normal in caliber where visualized. IMPRESSION 1. Edematous gallbladder wall measuring 5 mm in thickness with trace pericholecystic fluid. No gallstones or positive sonographic Mast's sign. In the setting of acute hepatitis, this is most likely a secondary finding. 2. Borderline dilation of the common bile duct, measures 7.5 mm. 3. Normal hepatic echogenicity without focal lesion. 4. Patent portal vein with normal directionality of flow. I have personally reviewed the image(s) and the resident's interpretation and agree with the findings, Chang Cisneros MD at 10/29/2023 8:37 AM Electronically signed by: Chang Cisneros MD, [facility] ([phone]), at 10/29/2023 8:37 AM Thank you for letting us participate in the care of this patient. If you are a health care provider and have any questions regarding this report, please contact the number above. For patients who have questions, please contact the health rn patient care that requested your imaging first. Chang Cisneros, Staff Physician Electronically Signed Final Report 10/29/2023 08:45 am Anabell Sethi MD IMG GEN JOHN ALYSSA * (ABNORMAL) Differential, Automated (10/29/2023 3:49 AM EDT) Neutrophil % 69.3 % [facility] Neutrophil Absolute 4.56 1.70 - 6.10 x10(3)/ L [facility] Lymph % 18.6 % [facility] Lymphocytes Abs 1.2 0.9 - 3.2 x10(3)/ L [facility] Monocyte % 7.3 % [facility] Monocyte Abs 0.5 0.3 - 0.9 x10(3)/ L [facility] Eos % 3.5 % [facility] Eosinophils Abs 0.2 0.0 - 0.4 x10(3)/[facility] Basophil % 0.5 % [facility] Baso Absolute 0.0 0.0 - 0.1 x10(3)/ L [facility] Immature Gran % 0.80 % [facility] Comment: Immature granulocytes(IG's)percentage and absolute count will include metamyelocytes, myelocytes, and promyelocytes. Blood smears from CBCs yielding IG's will be scanned manually for concordance. If this scan disagrees with the automated IG or if promyelocytes are noted, a manual differential will be performed. Immature Gran Absolute 0.05(H) 0.00 - 0.04 x10(3)/ L [facility] Blood 10/29/2023 3:49 AM EDT 10/29/2023 4:06 AM EDT Narrative Resulting Agency Comment Spec In Lab Garry Ortiz MD HEMATOLOGY ORDERABLE S [facility] [place] [address] * (ABNORMAL) Hemogram (10/29/2023 3:49 AM EDT) White Blood Cell 6.6 4.0 - 9.5 x10(3)/mc L [facility] Red Blood Cell 3.21(L) 4.58 - 5.54 x10(6)/mc L [facility] Hemoglobin 9.5(L) 13.7 - 16.5 g/dL [facility] Hematocrit 28.9(L) 40.5 - 48.5 % [facility] Mean Cell Volume 90.0 82.9 - 93.1 fL [facility] Mean Cell Hemoglobin 29.6 27.5 - 32.1 pg [facility] Mean Cell Hemoglobin Concentration 32.9 32.0 - 35.7 g/dL [facility] Platelet 239 145 - 357 x10(3)/mc L [facility] RDW Standard Deviation 52.2(H) 36.0 - 45.0 [facility] RDW coefficient of variation 15.9(H) 11.4 - 13.8 % [facility] Mean Platelet Volume 9.8 7.6 - 12.9 [facility] NRBC% auto 0.0 % [facility] NRBC Absolute 0.000 0.000 - 0.000 x10(3)/mc L [facility] Blood 10/29/2023 3:49 AM EDT 10/29/2023 4:06 AM EDT Narrative Resulting Agency Comment Spec In Lab Garry Ortiz MD HEMATOLOGY ORDERABLE S [facility] [place] [address] * (ABNORMAL) Hepatic Function Panel (10/29/2023 3:49 AM EDT) Pathologist [facility] Protein, Total 6.0(L) 6.1 - 8.0 g/dL [facility] Albumin 3.1(L) 3.2 - 5.2 g/dL [facility] Aspartate Aminotransferase 172(H) 0 - 39 unit/L [facility] Alanine Aminotransferase 178(H) 0 - 55 unit/L [facility] Alkaline Phosphatase 103 40 - 130 unit/L [facility] Bilirubin, Total 0.3 0.2 - 1.3 mg/dL [facility] Bilirubin, Direct 0.1 0.0 - 0.3 mg/dL [facility] Blood 10/29/2023 3:49 AM EDT 10/29/2023 4:06 AM EDT Narrative Resulting Agency Comment Spec In Lab Leatha Finn MD CHEMISTRY ORDERABLE S [facility] [place] [address] * (ABNORMAL) Basic Metabolic Panel (non-fasting) (10/29/2023 3:49 AM EDT) [facility] Glucose 89 65 - 199 mg/dL [facility] Comment:Diabetes: >=200 mg/d L plus symptoms Blood Urea Nitrogen 16 10 - 20 mg/dL [facility] Creatinine 0.82 0.80 - 1.50 mg/dL [facility] Sodium 139 135 - 145 mmol/L [facility] Potassium 4.0 3.5 - 5.0 mmol/L [facility] Comment: Please note: ??Patients with WBC >100,000 may have falsely elevated Potassium levels. ??For accurate Potassium quantification in these patients send serum separator tube (gold top) for subsequent determinations. ??Contact the Clinical Chemistry Laboratory if there are any questions. Chloride 104 98 - 107 mmol/L [facility] Carbon Dioxide 28 22 - 31 mmol/L [facility] Anion Gap 7 5 - 15 mmol/L [facility] Calcium 8.0(L) 8.5 - 10.5 mg/dL [facility] Est Glomerular Filtration Rate 112 >=60 mL/min/1. 73 m?? [facility] Comment: This patient's estimated GFR was [...] and symptoms in addition to eGFR. Blood 10/29/2023 3:49 AM EDT 10/29/2023 4:06 AM EDT Narrative Resulting Agency Comment Spec In Lab Leatha Finn MD CHEMISTRY ORDERABLE S [facility] [place] [address] * (ABNORMAL) Rapid Drug Screen w/o Confirmation, Urine (10/28/2023 9:50 PM EDT) Pathologist [facility] Barbiturates Screen, Urine None Detected None Detected [facility] Comment: The barbiturate screen detects barbiturates [...] Not for Medico-Legal Purposes. Benzodiazepines Screen, Urine None Detected None Detected [facility] Comment: The benzodiazepines screen detects benzodiazepines [...] Cocaine Screen, Urine Presumptive Pos(A) None Detected [facility] Comment: The cocaine metabolites screen detects benzoylecgonine (Cocaine Metabolite) at concentrations >150 ng/mL. A ? Presumptive Positive? result indicates that the screening result was positive but has not yet been confirmed by a highly-specific method. As with any screen, occasional false positive results from cross-reacting substances may occur. Not for Medico-Legal Purposes. Methadone Metabolites Screen, Urine None Detected None Detected [facility] Comment: The methadone metabolite screen detects EDDP (major methadone metabolite) at concentrations >100 ng/mL. A ? Presumptive Positive? result indicates that the screening result was positive but has not yet been confirmed by a highly-specific method. As with any screen, occasional false positive results from cross-reacting substances may occur. Not for Medico-Legal Purposes. Opiate Screen, Urine None Detected None Detected [facility] Comment: The opiates screen detects opiates [...] Cannabinoid Screen, Urine Presumptive Pos(A) None Detected [facility] Comment: The marijuana metabolites screen detects the THC metabolite (03-epi-2-carboxy-delta 9-THC) at concentrations >20 ng/mL. A ? Presumptive Positive? result indicates that the screening result was positive but has not yet been confirmed by a highly-specific method. As with any screen, occasional false positive results from cross-reacting substances may occur. Not for Medico-Legal Purposes. Oxycodone Screen, Urine None Detected None Detected [facility] Comment: The oxycodone screen detects oxycodone and oxymorphone at concentrations >100 ng/mL. A ? Presumptive Positive? result indicates that the screening result was positive but has not yet been confirmed by a highly-specific method. As with any screen, occasional false positive results from cross-reacting substances may occur. Not for Medico-Legal Purposes. Buprenorphine Screen, Urine None Detected None Detected [facility] Comment: The buprenorphine screen detects buprenorphine [...] characteristics of this test were determined by [facility] in accordance with CLIA requirements. This laboratory is qualified under CLIA to perform high-complexity testing. Fentanyl Screen, Urine Presumptive Pos(A) None Detected [facility] Comment: The fentanyl screen detects fentanyl [...] characteristics of this test were determined by [facility] in accordance with CLIA requirements. This laboratory is qualified under CLIA to perform high-complexity testing. Tricyclics Screen, Urine None Detected None Detected [facility] Comment: The tricyclics screen detects tricyclic [...] characteristics of this test were determined by [facility] in accordance with CLIA requirements. This laboratory is qualified under CLIA to perform high-complexity testing. Ethanol Screen, Urine None Detected None Detected [facility] Comment:This urine ethanol a ssay detects ethanol at concentrations >/= 100 mg/L. Amphetamines Screen, Urine Presumptive Pos(A) None Detected [facility] Comment: The amphetamine screen detects d-amphetamine and d-methamphetamine at concentrations >300 ng/mL. A ? Presumptive Positive? result indicates that the screening result was positive but has not yet been confirmed by a highly-specific method. As with any screen, occasional false positive results from cross-reacting substances may occur. Not for Medico-Legal Purposes. Creatinine Specimen Validity Test, Urine 273 >=20 mg/dL [facility] Chromate Specimen Validity Test, Urine 3.0 <=49.9 mg/L [facility] Nitrite Specimen Validity Test, Urine 69 <=499 mg/L [facility] Oxidant Specimen Validity Test, Urine <5 <=199 mg/L [facility] pH Specimen Validity Test, Urine 6.0 3.0 - 10.9 [facility] Adulterants Screen, Urine None Detected None Detected [facility] Comment:No adulteration of t his urine sample was detected. Urine 10/28/2023 9:50 PM EDT 10/28/2023 10:03 PM EDT Narrative Resulting Agency Comment Spec In Lab Marcos Alberts MD CHEMISTRY ORDERABLES Performing Organization Address City/State/[facility] Co de Phone Number [facility] [place] [address] * Rapid Drug Screen, Urine (JENNIFER Request) (10/28/2023 5:16 PM EDT) JENNIFER Conf Requested No [facility] Comment: Collection date/time has been modified to: 21:50:00. ??Previous collection date/time: 17:16:00. Corrected from No [NA] on 10/28/23 22:03:34 EDT by Live Pedro Requested See Comment [facility] Comment: Refer to Rapid Drug Screen w/o Confirmation, Urine for results. Collection date/time has been modified to: 21:50:00. ??Previous collection date/time: 17:16:00. Corrected from See Comment [NA] on 10/28/23 22:03:34 EDT by Live Pedro Urine 10/28/2023 5:16 PM EDT 10/28/2023 10:03 PM EDT Narrative Resulting Agency Comment Spec In Lab Leatha Finn MD URINE ORDERABLES [facility] [place] [address] * Duplex Study for DVT, Bilat legs (10/28/2023 4:43 PM EDT) VB Text Report Department: Vascular Surgery Lab Patient: [id number] (MARCOS CAMEJO) CPT: [id number] Referring Physician: PHOENIX MCWILLIAMS ?? Indications: Asymmetrical BLE edema ? DVT Findings: RIGHT: Patent common femoral vein and popliteal vein with spontaneous, pulsatile Doppler waveforms that respond normally to augmentation maneuvers. The common femoral vein, saphenofemoral junction, femoral vein through the thigh and popliteal vein are fully compressible. Patent posterior tibial and peroneal veins with no evidence of thrombus. LEFT: Patent common femoral vein and popliteal vein with spontaneous, pulsatile Doppler waveforms that respond normally to augmentation maneuvers. The common femoral vein, saphenofemoral junction, femoral vein through the thigh and popliteal vein are fully compressible. Patent posterior tibial and peroneal veins with no evidence of thrombus. NOTE: Abnormal pulsatile waveforms seen in bilateral common femoral veins suggestive of a central process causing elevated right sided heart pressure. Interpretation: RIGHT: ??No evidence of lower extremity deep venous thrombosis. LEFT: ??No evidence of lower extremity deep venous thrombosis. Comparison: ?? No previous study in our vascular lab database for comparison. Electronically Signed by: ANABELL LARA M.D. on 2023-10-29 07:32:17 AM [facility] VB Text Report End of Report [facility] 10/28/2023 4:43 PM EDT Phoenix Mcwilliams MD VASCULAR ORDERABLES Performing Organization Address City/[facility]/ZIP Co de Phone Number [facility] * Blood culture (10/28/2023 11:48 AM EDT) Blood Culture No growth at 5 days. [facility] Blood STRUCTURE OF RIGHT UPPER LIMB / Unknown 10/28/2023 11:48 AM EDT 10/28/2023 12:33 PM EDT Narrative Resulting Agency Comment Spec In Lab Leatha Finn MD MICROBIOLOGY - BLOO D ORDERABLES Performing Organization Address [facility] Co de Phone Number [facility] [place] [place] [address] * ECHO COMPLETE (10/28/2023 11:02 AM EDT) EF 64 HEARTLAB SYSTEM Anatomical Region Laterality Modality Cardiac Other 10/28/2023 10:0 2 AM EDT Narrative 10/28/2023 11:28 AM EDT [address] [place] [address] ? Echocardiogram Report Name: MARCOS CAMEJO ?Study Date: 10/28/2023 10:02 AM ? Patient Location: ED : 1980 ? Height: 175 cm ? Account: [id number] Age: 43 yrs ? Weight: 77 kg Gender: Male ?BSA: 1.9 m2 Ordering Physician: LEATHA FINN Referring Physician: LUIS FERNANDO Performed By: Zuleika Magallon RDCS Reason For Study: Bacteremia due to staphylococcus aureus Exam Location: [facility]. Interpretation Summary Left ventricle is of normal [...] are visualized. Consider MARIBEL, if clinically indicated. Procedure Complete-[id number]. Satisfactory quality. Left Ventricle Left ventricle is of normal size. Wall thickness is normal. Left ventricular size and systolic function is normal. The left ventricular ejection fraction is 57% by Hall's biplane. There are no segmental wall motion abnormalities. Right Ventricle Right ventricle is mildly dilated. Right ventricular systolic function is normal. Left Atrium The left atrium is severely dilated. There is a possible patent foramen ovale by color doppler. Aneurysmal septum. Right Atrium The right atrium is moderately dilated. Aortic Valve The aortic valve is structurally [...] There is moderate to severe tricuspid regurgitation. Pulmonic Valve The pulmonic valve is not well visualized. Great Arteries The aortic root is of normal size. No abnormalities are identified. Venous Inferior vena cava collapse less than 50% with respiration. Inferior vena cava is dilated. Pericardium/Pleural There is no pericardial effusion. Hemodynamics Left ventricular diastolic function is indeterminate. The estimated right atrial pressure is 15mmHg. The peak right ventricular systolic pressure is 52 mmHg. Ejection Fraction ?2D Measurements ? Volumes EF(MOD-bp): 56.5 % ?IVSd: 1.1 cm ? LAV(MOD- bp) Indexed: ?LVIDd: 5.0 cm ?LVIDs: 3.6 cm ?53.1 ml/m2 ?LVPWd: 1.1 cm ?RA A4Cs_phl: 25.1 cm2 ? EDV(MOD-bp) Indexed: ?RWT: 0.43 {ratio} ?LV mass(C)d: 204.0 grams ? 102.2 ml/m2 ?LV mass(C)dI: 105.8 grams/m2 ?? ESV(MOD- bp) Indexed: ?Ao root diam: 3.2 cm ? 44.5 ml/m2 ?Ao root diam index: 1.7 ?SV(LVOT): 85.7 ml ?LVOT diam: 2.0 cm ?TAPSE_phl: 2.4 cm ?SI(LVOT): 44.4 ml/m2 Doppler LV V1 VTI: 27.0 cm Ao V2 VTI: 28.2 cm Ao Max: 149.4 cm/sec Ao valve max: 8.9 mmHg Ao valve mean: 4.6 mmHg MV E max jas: 86.8 cm/sec MV A max jas: 73.3 cm/sec MV E/A: 1.2 MV dec time: 0.26 sec Lat Peak E' Jas: 16.2 cm/sec E/ e' (lat): 5.4 Med Peak E' Jas: 16.6 cm/sec E/e' (med): 5.2 E/e' Average: 5.3 BENNY(I,D): 3.0 cm2 Dimensionless index Aov: 0.96 MR ERO: 0.21 cm2 MR PISA radius: 0.81 cm Mitral Regurgitation Volume: 41.0 ml MR volume: 41.6 ml TR max jas: 283.9 cm/sec I ?WMSI = 1.00 ? % Normal = 100 ?Segments ??Size X - Cannot ?? 1 - Normal ?? 2 - ? 3 - Akinetic 4 - ?1-2 ? small Interpret ? Hypokinetic ?Dyskinetic ?? 3-5 ? moderate 5 - ? 6-14 ?large Aneurysmal ?15-16 ?? diffuse Procedure Note Gavin Samano MD - 10/28/2023 [address] [place] [id number] Echocardiogram Report Name: MARCOS CAMEJO Study Date: 0:02 AM Patient Location: ED : 1980 Height: 175 cm Account: [id number] Age: 43 yrs Weight: 77 kg Gender: Male BSA: 1.9 m2 Ordering Physician: LEATHA FINN Referring Physician: UNKNOWN Performed By: Zuleika Magallon RDCS Reason For Study: Bacteremia due to staphylococcus aureus Exam Location: [facility]. Interpretation Summary Left ventricle is of normal size. Wall thickness is normal. Leftventricular size and systolic function is normal. The left ventricular ejection fraction is57% by Hall's biplane. There are no segmental wall motion abnormalities. Right ventricle is mildly dilated. Right ventricular systolic function isnormal. The left atrium is severely dilated. The right atrium is moderatelydilated. There is a possible patent foramen ovale by color Doppler. The mitral valve is structurally normal. There is tethering of themitral leaflets. There is no mitral stenosis. There is moderate mitralregurgitation. There appears to be tethering of the tricuspid valve. Tricuspid valveannulus dilated at 4.0 cm. There is moderate to severe tricuspid regurgitation. Inferior vena cava collapse less than 50% with respiration. Inferior venacava is dilated.. Compared to 10/01/2023, there is more mitral and tricuspid regurigitation,however no vegetations are visualized. Consider MARIBEL, if clinically indicated. Procedure Complete-83312. Satisfactory quality. Left Ventricle Left ventricle is of normal size. Wall thickness is normal. Leftventricular size and systolic function is normal. The left ventricular ejection fraction is57% by Hall's biplane. There are no segmental wall motion abnormalities. Right Ventricle Right ventricle is mildly dilated. Right ventricular systolic function isnormal. Left Atrium The left atrium is severely dilated. There is a possible patent foramenovale by color doppler. Aneurysmal septum. Right Atrium The right atrium is moderately dilated. Aortic Valve The aortic valve is structurally and functionally normal. The aortic valveis tricuspid. There is no aortic stenosis. There is no aorticregurgitation. Mitral Valve The mitral valve is structurally normal. There is tethering of themitral leaflets. There is no mitral stenosis. There is moderate mitralregurgitation. Tricuspid Valve The tricuspid valve is structurally normal. There is no tricuspidstenosis. There appears to be tethering of the tricuspid valve. Tricuspid valve annulusdilated at 4.0 cm. There is moderate to severe tricuspid regurgitation. Pulmonic Valve The pulmonic valve is not well visualized. Great Arteries The aortic root is of normal size. No abnormalities are identified. Venous Inferior vena cava collapse less than 50% with respiration. Inferior venacava is dilated. Pericardium/Pleural There is no pericardial effusion. Hemodynamics Left ventricular diastolic function is indeterminate. The estimated rightatrial pressure is 15mmHg. The peak right ventricular systolic pressure is 52mmHg. Ejection Fraction 2D Measurements Volumes EF(MOD-bp): 56.5 % IVSd: 1.1 cm LAV(MOD-bp)Indexed: LVIDd: 5.0 cm LVIDs: 3.6 cm 53.1 ml/m2 LVPWd: 1.1 cm RA A4Cs_phl: 25.1cm2 EDV(MOD-bp)Indexed: RWT: 0.43 {ratio} LV mass(C)d: 204.0 grams 102.2 ml/m2 LV mass(C)dI: 105.8 grams/m2 ESV(MOD-bp)Indexed: Ao root diam: 3.2 cm 44.5 ml/m2 Ao root diam index: 1.7 SV(LVOT): 85.7ml LVOT diam: 2.0 cm TAPSE_phl: 2.4 cm SI(LVOT): 44.4ml/m2 Doppler LV V1 VTI: 27.0 cm Ao V2 VTI: 28.2 cm Ao Max: 149.4 cm/sec Ao valve max: 8.9 mmHg Ao valve mean: 4.6 mmHg MV E max jas: 86.8 cm/sec MV A max jas: 73.3 cm/sec MV E/A: 1.2 MV dec time: 0.26 sec Lat Peak E' Jas: 16.2 cm/sec E/ e' (lat): 5.4 Med Peak E' Jas: 16.6 cm/sec E/e' (med): 5.2 E/e' Average: 5.3 BENNY(I,D): 3.0 cm2 Dimensionless index Aov: 0.96 MR ERO: 0.21 cm2 MR PISA radius: 0.81 cm Mitral Regurgitation Volume: 41.0 ml MR volume: 41.6 ml TR max jas: 283.9 cm/sec I WMSI = 1.00 % Normal = 100 SegmentsSize X - Cannot 1 - Normal 2 - 3 - Akinetic 4 - 1-2small Interpret Hypokinetic Dyskinetic 3-5moderate 5 - 6-14large Aneurysmal 15-16diffuse Leatha Finn MD ECHO ORDERABLES * (ABNORMAL) pro-Brain Natriuretic Peptide (10/28/2023 10:40 AM EDT) NT-proBNP 1,432(H) <=124 pg/mL [facility] Blood Venous Draw / Unknown 10/28/2023 10:40 AM EDT 10/28/2023 11:09 AM EDT Narrative Resulting Agency Comment Spec In Lab Leatha Finn MD CHEMISTRY ORDERABLE S Performing Organization Address City/[facility]/ZIP Co de Phone Number [facility] [place] [address] * Mendoza Tube Hold (10/28/2023 10:40 AM EDT) Mendoza Hold Sample in lab. [facility] Blood Venous Draw / Unknown 10/28/2023 10:40 AM EDT 10/28/2023 11:16 AM EDT Marcos Alberts MD CHEMISTRY ORDERABLES [facility] [address] * Blue Tube HOLD (10/28/2023 10:40 AM EDT) Blue Hold Sample in lab. [facility] Blood Venous Draw / Unknown 10/28/2023 10:40 AM EDT 10/28/2023 11:16 AM EDT Marcos Alberts MD HEMATOLOGY ORDERABLE S [facility] [place] [address] * (ABNORMAL) Differential, Automated (10/28/2023 10:40 AM EDT) Neutrophil % 72.2 % [facility] Neutrophil Absolute 4.74 1.70 - 6.10 x10(3)/mc L [facility] Lymph % 15.9 % [facility] Lymphocytes Abs 1.0 0.9 - 3.2 x10(3)/mc L [facility] Monocyte % 7.8 % [facility] Monocyte Abs 0.5 0.3 - 0.9 x10(3)/ L [facility] Eos % 2.6 % [facility] Eosinophils Abs 0.2 0.0 - 0.4 x10(3)/[facility] Basophil % 0.6 % [facility] Baso Absolute 0.0 0.0 - 0.1 x10(3)/mc L [facility] Immature Gran % 0.90 % [facility] Comment: Immature granulocytes(IG's)percentage and absolute count will include metamyelocytes, myelocytes, and promyelocytes. Blood smears from CBCs yielding IG's will be scanned manually for concordance. If this scan disagrees with the automated IG or if promyelocytes are noted, a manual differential will be performed. Immature Gran Absolute 0.06(H) 0.00 - 0.04 x10(3)/ L [facility] Blood 10/28/2023 10:4 0 AM EDT 10/28/2023 11:03 AM EDT Narrative Resulting Agency Comment Spec In Lab Marcos Alberts MD HEMATOLOGY ORDERABLE S [facility] [place] [address] * (ABNORMAL) Hemogram (10/28/2023 10:40 AM EDT) Pathologist [facility] White Blood Cell 6.6 4.0 - 9.5 x10(3)/mc L [facility] Red Blood Cell 3.20(L) 4.58 - 5.54 x10(6)/mc L [facility] Hemoglobin 9.7(L) 13.7 - 16.5 g/dL [facility] Hematocrit 29.3(L) 40.5 - 48.5 % [facility] Mean Cell Volume 91.6 82.9 - 93.1 fL [facility] Mean Cell Hemoglobin 30.3 27.5 - 32.1 pg [facility] Mean Cell Hemoglobin Concentration 33.1 32.0 - 35.7 g/dL [facility] Platelet 244 145 - 357 x10(3)/[facility] RDW Standard Deviation 52.7(H) 36.0 - 45.0 [facility] RDW coefficient of variation 15.7(H) 11.4 - 13.8 % [facility] Mean Platelet Volume 9.5 7.6 - 12.9 fL [facility] NRBC% auto 0.0 % [facility] NRBC Absolute 0.000 0.000 - 0.000 x10(3)/[facility] Blood 10/28/2023 10:4 0 AM EDT 10/28/2023 11:03 AM EDT Narrative Resulting Agency Comment Spec In Lab Marcos Alberts MD HEMATOLOGY ORDERABLE S [facility] [place] [address] * (ABNORMAL) CRP, acute inflammation (10/28/2023 10:40 AM EDT) [facility] C-Reactive Protein 12.0(H) <=4.9 mg/L [facility] Blood 10/28/2023 10:4 0 AM EDT 10/28/2023 11:03 AM EDT Narrative Resulting Agency Comment Spec In Lab Leatha Finn MD CHEMISTRY ORDERABLE S Performing Organization Address [facility] Co de Phone Number [facility] [place] [address] * Sedimentation rate (10/28/2023 10:40 AM EDT) Sedimentation Rate Automated 8 2 - 28 mm/hr [facility] Comment: Effective June 28, 2019 new capillary photometric technology has resulted in a change in reference ranges. It is recommended that each ESR result be reviewed with its own age appropriate reference range. Blood 10/28/2023 10:4 0 AM EDT 10/28/2023 11:03 AM EDT Narrative Resulting Agency Comment Spec In Lab Leatha Finn MD HEMATOLOGY ORDERABL ES Performing Organization Address [facility] Co de Phone Number [facility] [place] [address] * TSH [place] (10/28/2023 10:40 AM EDT) [facility] Thyroid Stimulating Hormone 1.67 0.27 - 4.20 mcIU/mL [facility] Comment: Reference Interval (mcIU/mL): Females: ??First Trimester: 0.23-3.88 ??Second Trimester: 0.22-3.90 ??Third Trimester: 0.44-4.66 Blood 10/28/2023 10:4 0 AM EDT 10/28/2023 11:03 AM EDT Narrative Resulting Agency Comment Spec In Lab Leatha Finn MD CHEMISTRY ORDERABLE S Performing Organization Address [facility] Co de Phone Number [facility] [place] [address] * Magnesium (10/28/2023 10:40 AM EDT) Magnesium 0.79 0.69 - 1.07 mmol/L [facility] Blood 10/28/2023 10:4 0 AM EDT 10/28/2023 11:03 AM EDT Narrative Resulting Agency Comment Spec In Lab Leatha Finn MD CHEMISTRY ORDERABLE S Performing Organization Address [facility] Co de Phone Number [facility] [place] [address] * Blood culture (10/28/2023 10:40 AM EDT) Blood Culture No growth at 5 days. [facility] Blood ANTECUBITAL REGION STRUCTURE / Unknown 10/28/2023 10:40 AM EDT 10/28/2023 11:16 AM EDT Comment:#2 Narrative Resulting Agency Comment Spec In Lab Leatha Finn MD MICROBIOLOGY - BLOO D ORDERABLES Performing Organization Address [facility] Co de Phone Number [facility] [place] [place] [address] * (ABNORMAL) Comprehensive metabolic panel (non-fasting) (10/28/2023 10:40 AM EDT) Glucose 179 65 - 199 mg/dL [facility] Comment:Diabetes: >=200 mg/d L plus symptoms Blood Urea Nitrogen 16 10 - 20 mg/dL [facility] Creatinine 0.71(L) 0.80 - 1.50 mg/dL [facility] Sodium 138 135 - 145 mmol/L [facility] Potassium 3.9 3.5 - 5.0 mmol/L [facility] Comment: Please note: ??Patients with WBC >100,000 may have falsely elevated Potassium levels. ??For accurate Potassium quantification in these patients send serum separator tube (gold top) for subsequent determinations. ??Contact the Clinical Chemistry Laboratory if there are any questions. Chloride 102 98 - 107 mmol/L [facility] Carbon Dioxide 29 22 - 31 mmol/L [facility] Anion Gap 7 5 - 15 mmol/L [facility] Calcium 8.5 8.5 - 10.5 mg/dL [facility] Protein, Total 6.2 6.1 - 8.0 g/dL [facility] Albumin 3.2 3.2 - 5.2 g/dL [facility] Aspartate Aminotransferase 195(H) 0 - 39 unit/L [facility] Alanine Aminotransferase 191(H) 0 - 55 unit/L [facility] Alkaline Phosphatase 109 40 - 130 unit/L [facility] Bilirubin, Total 0.3 0.2 - 1.3 mg/dL [facility] Est Glomerular Filtration Rate 117 >=60 mL/min/1. 73 m?? [facility] Comment: This patient's estimated GFR was [...] and symptoms in addition to eGFR. Blood 10/28/2023 10:4 0 AM EDT 10/28/2023 11:03 AM EDT Narrative Resulting Agency Comment Spec In Lab Leatha Finn MD CHEMISTRY ORDERABLE S [facility] [place] [address] * Lactate, whole blood, send to lab ([facility]) (10/28/2023 9:40 AM EDT) Lactate WB 1.5 0.5 - 2.2 mmol/L [facility] Blood Venous Draw / Unknown 10/28/2023 9:40 AM EDT 10/28/2023 10:51 AM EDT Narrative Resulting Agency Comment Spec In Lab Marcos Alberts MD CHEMISTRY ORDERABLES Performing Organization Address City/[facility]/ZIP Co de Phone Number [facility] [place] [address] * Blood culture (10/28/2023 9:40 AM EDT) Pathologist [facility] Blood Culture No growth at 5 days. [facility] Blood STRUCTURE OF RIGHT FOREARM / Unknown 10/28/2023 9:40 AM EDT 10/28/2023 11:16 AM EDT Comment:#1 Narrative Resulting Agency Comment Spec In Lab Leatha Finn MD MICROBIOLOGY - BLOO D ORDERABLES Performing Organization Address [facility] Co de Phone Number [facility] [place] [address] * COVID-19 PCR (10/28/2023 9:34 AM EDT) Pathologist [facility] SARS-CoV-2 RNA (Rapid) Not Detected Not Detected [facility] Comment: This result should be interpreted in combination with the clinical observations, patient history and epidemiological information. For testing of asymptomatic individuals, assay performance characteristics and clinical utility have not been evaluated. Testing for SARS-CoV-2 (Severe acute respiratory syndrome coronavirus 2, formerly known as 2019 novel coronavirus or 2019-nCoV) to aid in the diagnosis of COVID-19 is performed using the Simplexa COVID-19 Direct Assay by Job App Plus as authorized by the FDA issued Emergency Use Authorization (EUA). This assay is intended for In-vitro Diagnostic (IVD) use with nasopharyngeal swabs collected from individuals meeting the CDC criteria for testing. The assay is performed based on the instructions for use and additional guidance provided by the FDA. Testing is performed in the Microbiology Laboratory within the Department of Pathology and Laboratory Medicine at [facility], certified under the Clinical Laboratory Improvement Amendments of 1988 (CLIA), 42 U.S.C. section 263a, to perform high complexity tests. Assay performance has been verified according to clinical laboratory regulatory requirements. Test results are provided above. A result of Not Detected indicates that the viral RNA target is not present but does not preclude SARS-CoV-2 infection. False negative results may occur if a specimen is improperly collected, transported or handled; if amplification inhibitors are present; or if inadequate numbers of viral particles are present in the specimen. A result of Detected suggests a current or recent infection and the patient is presumed to be infected. Positive and negative predictive values for this test are highly dependent on disease prevalence. A result of Invalid indicates the inability to conclusively determine the presence or absence of SARS-CoV-2 RNA in the sample which can be due to a variety of factors. Recollection is recommended in the case of an invalid result. CDC COVID-19 criteria for testing on human specimens and clinical management guidance information are available at the CDC Coronavirus Disease 2019 (COVID-19) webpage under Information for Healthcare Professionals (https://www.cdc.gov/coronavirus/2019-ncov/hcp/index.html). Additional information about this and other EUA tests can be found in provider and patient fact sheets at the following FDA website: https://www.fda.gov/medical-devices/jpcuabplbgn-uwklunx-1030-cpdmb-89-fxikbcatz- use-a flkcwfffyajfx-isnixco-tkzcjzs/edqyp-yinvdroawhc-mgvx SARS-CoV-2 Source UNDERWRITER [employer]ICITATION DIRECTOR Swab [facility] Nasopharyngeal Swab 10/28/19 9:34 AM EDT 10/28/2023 10:09 AM EDT Comment:Specimen Source->Al opharyngeal Swab Narrative Resulting Agency Comment Spec In Lab Leatha Finn MD MICROBIOLOGY - [facility] ORDERABLES [facility] [place] [address] * MRSA PCR Screen ([facility]) (10/28/2023 9:34 AM EDT) MRSA PCR Negative Negative [facility] MRSA (Interp) Methicillin-resist ant Staphylococcus aureus (MRSA) is NOT DETECTED The MRSA target DNA sequences (mec and SCC) were not detected within the acceptable ranges using the Xpert MRSA NxG on the Omega DiagnosticsXpert Dx System (Kixer). This suggests the absence of MRSA in the patient specimen submitted for testing. This test is cleared by the U.S. Food and Drug Administration for clinical use and its performance characteristics have been verified by the [facility] at [facility]. This result does not rule out the presence of any other organisms. Rare false negative results may occur if MRSA is present at low concentrations with much higher concentrations of other organisms including MRSE or S. aureus with an empty SCC cassette. [facility] Comment: [VERIFIED DATE]10.28.23 Verified By:Janet Johnson (Electronic Signature) Nasopharyngeal Swab 10/28/19 9:34 AM EDT 10/28/2023 11:33 AM EDT Comment:Specimen Type->Nasop haryngeal Swab Narrative Resulting Agency Comment Spec In Lab Leatha Finn MD MOLECULAR ORDERABLE S [facility] [place] [address] * XR Chest One View (10/28/2023 9:20 AM EDT) Anatomical Region Laterality Modality Chest N/A Digital Radiogra phy Impressions 10/28/2023 9:40 AM EDT Accounting for AP technique and low inspiratory depth, the cardiac silhouette is enlarged. This is concerning for new cardiomegaly or pericardial effusion. Mild to moderate pulmonary edema with or without additional infection. Possible small effusion. Thank you for letting us participate in the care of this patient. ??If you are a health care provider and have any questions regarding this report, please contact the number below. ??For patients who have questions please contact the health rn patient care that requested your imaging first. ? Narrative 10/28/2023 9:40 AM EDT EXAMINATION: XR CHEST ONE VIEW CLINICAL HISTORY: c/f cardiac dysfunction TECHNIQUE: 1 view of the chest COMPARISON: 09/30/2023. FINDINGS: Findings are concerning for new cardiomegaly or pericardial effusion. Pulmonary edema. Additional infection in the right lower lung not excluded. Possible small effusion. No interval osseous change. Procedure Note Trista Mariscal MD - 10/28/2023 EXAMINATION: XR CHEST ONE VIEW CLINICAL HISTORY: c/f cardiac dysfunction TECHNIQUE: 1 view of the chest COMPARISON: 09/30/2023. FINDINGS: Findings are concerning for new cardiomegaly or pericardial effusion. Pulmonary edema. Additional infection in the right lower lung notexcluded. Possible small effusion. No interval osseous change. IMPRESSION Accounting for AP technique and low inspiratory depth, the cardiacsilhouette is enlarged. This is concerning for new cardiomegaly or pericardialeffusion. Mild to moderate pulmonary edema with or without additional infection. Possible small effusion. Thank you for letting us participate in the care of this patient. If youare a health care provider and have any questions regarding this report,please contact the number below. For patients who have questions please contactthe health rn patient care that requested your imaging first. Leatha Finn MD IMG DX ORDERABLES * EKG 12 Lead (10/28/2023 9:15 AM EDT) Ventricular rate 78 BPM MUSE SYSTEM Atrial Rate 78 BPM MUSE SYSTEM P-R Interval 134 ms MUSE SYSTEM QRS Duration 90 ms MUSE SYSTEM Q-T Interval 380 ms MUSE SYSTEM QTC Calculated (Bezet) 433 ms MUSE SYSTEM Calculated P [place] 41 degrees MUSE SYSTEM Calculated R [place] 54 degrees MUSE SYSTEM Calculated T [place] 34 degrees MUSE SYSTEM INTERPRETATION Normal sinus rhythm Normal ECG When compared with ECG of 30-SEP-2023 12:39, No significant change was found Confirmed by Natty Kelly ([id number]) on 10/28/2023 12:27:50 PM MUSE SYSTEM 10/28/2023 9:15 AM EDT 10/28/2023 12:27 PM EDT Leatha Finn MD ECG ORDERABLES MUSE SYSTEM documented in this encounter Visit Diagnoses Diagnosis Leg swelling- Primary Swelling of limb Bacteremia due to Staphylococcus aureus Bacteremia Leg swelling Swelling of limb documented in this encounter Admitting Diagnoses Diagnosis Leg swelling Swelling of limb documented in this encounter Administered Medications Inactive Administered Medications - up to 3 most recent administrations Medication Order MAR Action Action Date Dose Rate Site acetaminophen (Tylenol) tablet 650 mg 650 mg, Oral, ONCE, 1 dose, On Shannan 10/28/23 at 1055, Maximum dose of acetaminophen is 4,000 mg from all sources in 24 hours. When ordered for pain, acetaminophen should be given even when other ordered pain medications are indicated., STAT Given 10/28/2023 10:55 AM EDT 650 mg acetaminophen (Tylenol) tablet 650 mg 650 mg, Oral, EVERY 6 HOURS PRN, Starting on Shannan 10/28/23 at 1341, Until 10/31/23 at 1641, Pain, Fever, Administer for pain or temperature greater than or equal to 38.2 degrees Celsius. Maximum daily dose of acetaminophen from all sources not to exceed 4,000 mg. When ordered for pain, acetaminophen should be given even when other ordered pain medications are indicated., Routine Given 10/29/2023 8:28 PM EDT 650 mg Given 10/29/2023 12:05 AM EDT 650 mg Buprenorphine - daily order reminder 1 each 1 each, Oral, DAILY, First dose on Wed10/31/23 at 0900, 3 doses, Last dose on Wed11/02/23 at 0900, If the daily Buprenorphine order has not been placed, contact the Provider to confirm that the order will be written, the dose is held or discontinued. buprenorphine-naloxone (Suboxone) sublingual tablet 12 mg of opiate 12 mg of opiate, Sublingual, 2 TIMES DAILY, First dose on Shannan 10/28/23 at 2100, Until Discontinued, Routine, Is patient on buprenorphine as an outpatient? Yes- prescribed Given 10/29/2023 8:18 PM EDT 12 mg of opiate buprenorphine-naloxone (Suboxone) sublingual tablet 24 mg of opiate 24 mg of opiate, Sublingual, DAILY, First dose (after last modification) on [place] 10/31/23 at 0900, Until Discontinued, Routine, Is patient on buprenorphine as an outpatient? Yes- prescribed Given 10/31/2023 10:20 AM EDT 24 mg of opiate ceFAZolin (Ancef) 2 g vial attach to sodium chloride 0.9% 100 mL Mini-Bag Plus 2 g, Intravenous, EVERY 8 HOURS, First dose on Shannan 10/28/23 at 0915, Until Discontinued, Administer over 30 Minutes, Indication for (Active or Suspected): Endocarditis New Bag 10/28/2023 11:21 AM EDT 2 g 200 mL/hr ceFAZolin (Ancef) 2 g vial attach to sodium chloride 0.9% 100 mL Mini-Bag Plus 2 g, Intravenous, EVERY 8 HOURS, First dose (after last reorder) on [facility] 10/28/23 at 2000, Until Discontinued, Administer over 30 Minutes, Indication for (Active or Suspected): Endocarditis New Bag 10/31/2023 12:54 PM EDT 2 g 200 mL/hr New Bag 10/31/2023 3:28 AM EDT 2 g 200 mL/hr New Bag 10/30/2023 8:35 PM EDT 2 g 200 mL/hr cloNIDine (Catapres) tablet 0.1 mg 0.1 mg, Oral, EVERY 6 HOURS PRN, Starting on 10/30/23 at 1607, Until [place] 10/31/23 at 1641, for restlessness, sweating, or tremor, Hold if SBP is less than 100 mmHg., Routine Given 10/31/2023 4:38 AM E DT 0.1 mg Given 10/30/2023 6:28 PM EDT 0.1 mg dextrose 10% infusion 250 mL, at 1,000 mL/hr, Intravenous, EVERY 15 MIN PRN, Starting on 10/30/23 at 1117, Until [place] 10/31/23 at 1641, For BG 50-70 mg/dL: Oral treatment preferred: If able to drink, give 120 mL juice or regular (not diet) soda OR if NPO, give 15 gram glucose 40% oral gel massaged into buccal mucosa OR if unconscious or uncooperative, give 25 gram (250 mL) dextrose 10% IV over 15 minutes per protocol OR, if no IV access, 1 mg glucagon IM. For BG less than 50 mg/dL: Oral treatment preferred: If able to drink, give 240 mL juice or regular (not diet) soda OR if NPO, give 30 gram glucose 40% oral gel massaged in buccal mucosa OR if unconscious or uncooperative, give 25 gram (250 mL) dextrose 10% IV over 15 minutes per protocol OR, if no IV access, 1 mg glucagon IM. Recheck BG in 15 minutes. May repeat juice/soda, gel, dextrose or glucagon once per episode. Notify provider if hypoglycemia does not resolve after two treatments. Providers should consider the following: administering longer-acting treatments for the duration of active insulin or hypoglycemia agent for persistent hypoglycemia and re-evaluating active insulin orders before administering the next dose. enoxaparin (Lovenox) (40 mg/0.4 mL) subcutaneous injection 40 mg 40 mg, Subcutaneous, NIGHTLY, First dose on Shannan 10/28/23 at 2100, Until Discontinued, Routine Given 10/30/2023 8:35 PM EDT 40 mg Given 10/29/2023 8:18 PM EDT 40 mg Given 10/28/2023 9:41 PM EDT 40 mg Ab dominal Tissue furosemide (Lasix) (10 mg/mL) injection 20 mg 20 mg, Intravenous, ONCE, 1 dose, On Wed10/29/23 at 1215 Given 10/29/2023 11:58 AM EDT 20 mg glucagon (Glucagen) (1 mg/mL) injection solution 1 mg 1 mg, Intramuscular, EVERY 15 MIN PRN, Starting on 10/30/23 at 1117, Until 10/31/23 at 1641, Low blood sugar, For BG 50-70 mg/dL: Oral treatment preferred: If able to drink, give 120 mL juice or regular (not diet) soda OR if NPO, give 15 gram glucose 40% oral gel massaged into buccal mucosa OR if unconscious or uncooperative, give 25 gram (250 mL) dextrose 10% IV over 15 minutes per protocol OR, if no IV access, 1 mg glucagon IM. For BG less than 50 mg/dL: Oral treatment preferred: If able to drink, give 240 mL juice or regular (not diet) soda OR if NPO, give 30 gram glucose 40% oral gel massaged in buccal mucosa OR if unconscious or uncooperative, give 25 gram (250 mL) dextrose 10% IV over 15 minutes per protocol OR, if no IV access, 1 mg glucagon IM. Recheck BG in 15 minutes. May repeat juice/soda, gel, dextrose or glucagon once per episode. Notify provider if hypoglycemia does not resolve after two treatments. Providers should consider the following: administering longer-acting treatments for the duration of active insulin or hypoglycemia agent for persistent hypoglycemia and re-evaluating active insulin orders before administering the next dose. , Routine glucose (Glutose) 40% oral geL 15-30 g of glucose, Buccal, EVERY 15 MIN PRN, Starting on 10/30/23 at 1117, Until 10/31/23 at 1641, Low blood sugar, For BG 50-70 mg/dL: Oral treatment preferred: If able to drink, give 120 mL juice or regular (not diet) soda OR if NPO, give 15 gram glucose 40% oral gel massaged into buccal mucosa OR if unconscious or uncooperative, give 25 gram (250 mL) dextrose 10% IV over 15 minutes per protocol OR, if no IV access, 1 mg glucagon IM. For BG less than 50 mg/dL: Oral treatment preferred: If able to drink, give 240 mL juice or regular (not diet) soda OR if NPO, give 30 gram glucose 40% oral gel massaged in buccal mucosa OR if unconscious or uncooperative, give 25 gram (250 mL) dextrose 10% IV over 15 minutes per protocol OR, if no IV access, 1 mg glucagon IM. Recheck BG in 15 minutes. May repeat juice/soda, gel, dextrose or glucagon once per episode. Notify provider if hypoglycemia does not resolve after two treatments. Providers should consider the following: administering longer-acting treatments for the duration of active insulin or hypoglycemia agent for persistent hypoglycemia and re-evaluating active insulin orders before administering the next dose. 1 tube of Glutose-15 contains 15 grams of glucose (net weight of tube = 37.5 grams.), Routine hydrOXYzine (Atarax) tablet 50 mg 50 mg, Oral, EVERY 6 HOURS PRN, Starting on 10/30/23 at 1555, Until 10/31/23 at 1641, Itching, Routine insulin lispro (HumaLOG;Admelog) (100 unit/mL) subcutaneous injection vial 1-4 Units 1-4 Units, Subcutaneous, 3 TIMES DAILY BEFORE MEALS, First dose on 10/30/23 at 1215, Until Discontinued, CORRECTION BOLUS [1-4 Units] Sensitive Sliding Scale (BG in mg/dL): Correction factor 40 (1 unit of insulin is expected to drop the glucose 40 mg/dL) ?? BG 160 - 200 Give 1 unit BG 201 - 240 Give 2 units BG 241 - 280 Give 3 units and recheck BG in 2 hours. BG greater than 280, give 4 units and recheck BG in 2 hours. - If recheck BG is LESS than 280, give no insulin and resume schedule - If recheck BG is GREATER than or EQUAL to 280, give 4 units and repeat BG in 2 hours & call for new insulin orders. DO NOT hold if NPO, unless specifically told to do so. ?? Per Inpatient Subcutaneous Insulin Policy, recheck a BG of greater than 240 mg/dL in 2 hours., Routine Given 10/30/2023 4:14 PM EDT 1 Units lidocaine (Xylocaine) 1% (10 mg/mL) injection 3 mg 3 mg (0.3 mL), Subcutaneous, ONCE PRN, 1 dose, Starting on Shannan 10/28/23 at 1340, Until 10/31/23 at 1641, for discomfort with PIV insertion, Routine loperamide (Imodium A-D) capsule 2 mg 2 mg, Oral, 4 TIMES DAILY PRN, Starting on 10/30/23 at 1521, Until 10/31/23 at 1641, Diarrhea, Do not exceed 16 mg/day., Routine Given 10/30/2023 3:53 PM EDT 2 mg LORazepam (Ativan) tablet 0.5 mg 0.5 mg, Oral, EVERY 6 HOURS PRN, Starting on 10/30/23 at 1520, Until 10/30/23 at 1859, Anxiety, Withdrawal, Nausea, Vomiting, Routine Given 10/30/2023 3:48 PM EDT 0.5 mg LORazepam (Ativan) tablet 0.5 mg 0.5 mg, Oral, EVERY 4 HOURS PRN, Starting on 10/30/23 at 1900, Until 10/31/23 at 1418, Anxiety, Withdrawal, Nausea, Vomiting, Routine Given 10/31/2023 4:11 AM EDT 0.5 mg Given 10/31/2023 12:08 AM EDT 0.5 mg Given 10/30/2023 8:35 PM EDT 0.5 mg LORazepam (Ativan) tablet 1 mg 1 mg, Oral, EVERY 4 HOURS PRN, Starting on 10/31/23 at 1418, Until 10/31/23 at 1641, Anxiety, Withdrawal, Nausea, Vomiting, Routine mirtazapine (Remeron) tablet 15 mg 15 mg, Oral, NIGHTLY PRN, Starting on 10/30/23 at 1607, Until 10/31/23 at 1641, Sleep, If both mirtazapine and hydrOXYzine ordered, give mirtazapine as first option., Routine Given 10/30/2023 8:35 PM EDT 15 mg ondansetron (pf) (Zofran) (2 mg/mL) injection 4 mg 4 mg, Intravenous, EVERY 8 HOURS PRN, Starting on 10/30/23 at 1519, Until 10/31/23 at 1641, Nausea Given 10/30/2023 3:48 PM EDT 4 mg potassium chloride ER (Klor-Con M) crystal tablet 40 mEq 40 mEq, Oral, ONCE, 1 dose, On 10/31/23 at 0745, potassium chloride ER particle/crystal tablets (Klor-Con M) may be broken in half and each half swallowed separately. Tablets can be dissolved in ~4 ounces of water; allow ~2 minutes to dissolve, stir well and drink immediately. Do not crush, chew, or suck on tablet., Routine Given 10/31/2023 10:20 AM EDT 40 mEq sodium chloride 0.9 % (flush) (BD PosiFlush Normal Saline 0.9) flush 5 mL 5 mL, Intravenous, 2 TIMES DAILY, First dose on Shannan 10/28/23 at 1350, Until Discontinued, Routine Given 10/31/2023 10:20 AM EDT 5 mLs Given 10/30/2023 8:36 PM EDT 5 mLs Given 10/29/2023 9:00 PM EDT 5 mLs sodium chloride 0.9 % (flush) (BD PosiFlush Normal Saline 0.9) flush 5-20 mL 5-20 mL, Intravenous, EVERY 1 MIN PRN, Starting on Shannan 10/28/23 at 1340, Until 10/31/23 at 1641, flush, Flush pertains to all indwelling lines. Flush per protocol found in the job aid using the link provided on this medication record., Routine tiZANidine (Zanaflex) tablet 2 mg 2 mg, Oral, 4 TIMES DAILY PRN, Starting on Wed10/31/23 at 0426, Until Wed10/31/23 at 1641, Xylazine withdrawal, Routine Given 10/31/2023 4:36 AM EDT 2 mg vancomycin (Vancocin) 2 gram in sodium chloride 0.9% 500 mL infusion 2 g, Intravenous, at 250 mL/hr, ONCE, 1 dose, On Shannan 10/28/23 at 0920, Maximum infusion rate is 1 gram/hour. If flushing of the face, neck, upper body, arms, and/or back occurs decrease infusion rate by 50% to reduce the severity of symptoms. This medication may have an associated drug lab level. Please see MAR for scheduled level. Warning Vesicant/Irritant Medication , Routine, Indication for (Active or Suspected): Bacteremia/Sepsis New Bag 10/28/2023 11:21 AM EDT 2 g 250 mL/hr Left Arm documented in this encounter Active and Recently Administered Medications Times are shown in EDT. Scheduled Medication Order 10/29/2023 10/30/2023 10/31/2023 Buprenorphine - daily order reminder 1 each 1 each, Oral, DAILY, First dose on Wed10/31/23 at 0900, 3 doses, Last dose on Wed11/02/23 at 0900, If the daily Buprenorphine order has not been placed, contact the Provider to confirm that the order will be written, the dose is held or discontinued. 0900 (Verified - Provider: Mary Bethea RN) buprenorphine-naloxone (Suboxone) sublingual tablet 12 mg of opiate (CANCELED) 12 mg of opiate, Sublingual, 2 TIMES DAILY, First dose on Shannan 10/28/23 at 2100, Until Discontinued, Routine, Is patient on buprenorphine as an outpatient? Yes- prescribed 0900 (Not Given - Provider: Mariam Cueto LPN - Reason: Patient/family refused)2017 (Given - Provider: Cynthia Moreno RN) 0900 (Not Given - Provider: Mariam Cueto LPN - Reason: Patient/family refused) buprenorphine-naloxone (Suboxone) sublingual tablet 24 mg of opiate 24 mg of opiate, Sublingual, DAILY, First dose (after last modification) on Wed10/31/23 at 0900, Until Discontinued, Routine, Is patient on buprenorphine as an outpatient? Yes- prescribed 1020 (Given - Provider: Mary Bethea RN) cefaDROXiL (Duricef) capsule 500 mg 500 mg, Oral, 2 TIMES DAILY, 10 doses, First dose on 11/01/23 at 0045, Last dose on Wed11/05/23 at 0900, Routine, Indication for (Active or Suspected): Skin/Skin Structure ceFAZolin (Ancef) 2 g vial attach to sodium chloride 0.9% 100 mL Mini-Bag Plus 2 g, Intravenous, EVERY 8 HOURS, First dose (after last reorder) on Shannan 10/28/23 at 2000, Until Discontinued, Administer over 30 Minutes, Indication for (Active or Suspected): Endocarditis 0433 (New Bag - Provider: Cynthia Moreno RN)0503 (Stopped - Provider: Cynthia Moreno RN)1158 (New Bag - Provider: Viji Mack RN)1228 (Stopped - Provider: Mariam Cueto LPN)1938 (New Bag - Provider: Cynthia Moreno RN)2007 (Stopped - Provider: Cynthia Moreno RN) 0305 (New Bag - Provider: Cynthia Moerno RN)0335 (Stopped - Provider: Cynthia Moreno RN)1143 (New Bag - Provider: Mariam Cueto LPN)1213 (Stopped - Provider: Mariam Cueto LPN)2034 (New Bag - Provider: Tang Garcia RN)210 (Stopped - Provider: Tang Garcia RN) 0328 (New Bag - Provider: Tang Garcia RN)0358 (Stopped - Provider: Tang Garcia RN)1254 (New Bag - Provider: Mary Bethea, RN)1324 (Stopped - Provider: Mary Bethea, RN) enoxaparin (Lovenox) (40 mg/0.4 mL) subcutaneous injection 40 mg 40 mg, Subcutaneous, NIGHTLY, First dose on Shannan 10/28/23 at 2100, Until Discontinued, Routine 2017 (Given - Provider: Cynthia Moreno, DAVID) 2034 (Given - Provider: Tang Garcia RN) furosemide (Lasix) (10 mg/mL) injection 20 mg (COMPLETED) 20 mg, Intravenous, ONCE, 1 dose, On 10/29/23 at 1215 1158 (Given - Provider: Viji Mack RN) insulin lispro (HumaLOG;Admelog) (100 unit/mL) subcutaneous injection vial 1-4 Units(Linked Group 1) 1-4 Units, Subcutaneous, 3 TIMES DAILY BEFORE MEALS, First dose on 10/30/23 at 1215, Until Discontinued, CORRECTION BOLUS [1-4 Units] Sensitive Sliding Scale (BG in mg/dL): Correction factor 40 (1 unit of insulin is expected to drop the glucose 40 mg/dL) ?? BG 160 - 200 Give 1 unit BG 201 - 240 Give 2 units BG 241 - 280 Give 3 units and recheck BG in 2 hours. BG greater than 280, give 4 units and recheck BG in 2 hours. - If recheck BG is LESS than 280, give no insulin and resume schedule - If recheck BG is GREATER than or EQUAL to 280, give 4 units and repeat BG in 2 hours & call for new insulin orders. DO NOT hold if NPO, unless specifically told to do so. ?? Per Inpatient Subcutaneous Insulin Policy, recheck a BG of greater than 240 mg/dL in 2 hours., Routine 1215 (Not Given - Provider: Mariam Cueto LPN - Reason: Order parameters not met - Comment: [phone] (Given - Provider: Mariam Cueto LPN - Comment: [phone]) 0730 (Not Given - Provider: Mary Bethea RN - Reason: Order parameters not met - Comment: [phone] (Not Given - Provider: Mary Bethea RN - Reason: Order parameters not met - Comment: BS 86) potassium chloride ER (Klor-Con M) crystal tablet 40 mEq (COMPLETED) 40 mEq, Oral, ONCE, 1 dose, On 10/31/23 at 0745, potassium chloride ER particle/crystal tablets (Klor-Con M) may be broken in half and each half swallowed separately. Tablets can be dissolved in ~4 ounces of water; allow ~2 minutes to dissolve, stir well and drink immediately. Do not crush, chew, or suck on tablet., Routine 1020 (Given - Provider: Mary Bethea RN) sodium chloride 0.9 % (flush) (BD PosiFlush Normal Saline 0.9) flush 5 mL 5 mL, Intravenous, 2 TIMES DAILY, First dose on Shannan 10/28/23 at 1350, Until Discontinued, Routine 0900 (Given - Provider: Mariam Cueto LPN)2100 (Given - Provider: Cynthia Moreno RN) 0900 (Not Given - Provider: Mariam Cueto LPN - Reason: See comment - Comment: pt needs new PIV)2035 (Given - Provider: Tang Garcia RN) 1020 (Given - Provider: Mary Bethea RN) PRN Medication Order 10/29/2023 10/30/2023 10/31/2023 acetaminophen (Tylenol) tablet 650 mg 650 mg, Oral, EVERY 6 HOURS PRN, Starting on Shannan 10/28/23 at 1341, Until 10/31/23 at 1641, Pain, Fever, Administer for pain or temperature greater than or equal to 38.2 degrees Celsius. Maximum daily dose of acetaminophen from all sources not to exceed 4,000 mg. When ordered for pain, acetaminophen should be given even when other ordered pain medications are indicated., Routine 0005 (Given - Provider: Cynthia Moreno, DAVID)2027 (Given - Provider: Cynthia Moreno RN) cloNIDine (Catapres) tablet 0.1 mg 0.1 mg, Oral, EVERY 6 HOURS PRN, Starting on 10/30/23 at 1607, Until 10/31/23 at 1641, for restlessness, sweating, or tremor, Hold if SBP is less than 100 mmHg., Routine 182 (Given - Provider: Viji Mack, RN) 0438 (Given - Provider: Tang Garcia, DAVID) dextrose 10% infusion(Linked Group 2) 250 mL, at 1,000 mL/hr, Intravenous, EVERY 15 MIN PRN, Starting on 10/30/23 at 1117, Until 10/31/23 at 1641, For BG 50-70 mg/dL: Oral treatment preferred: If able to drink, give 120 mL juice or regular (not diet) soda OR if NPO, give 15 gram glucose 40% oral gel massaged into buccal mucosa OR if unconscious or uncooperative, give 25 gram (250 mL) dextrose 10% IV over 15 minutes per protocol OR, if no IV access, 1 mg glucagon IM. For BG less than 50 mg/dL: Oral treatment preferred: If able to drink, give 240 mL juice or regular (not diet) soda OR if NPO, give 30 gram glucose 40% oral gel massaged in buccal mucosa OR if unconscious or uncooperative, give 25 gram (250 mL) dextrose 10% IV over 15 minutes per protocol OR, if no IV access, 1 mg glucagon IM. Recheck BG in 15 minutes. May repeat juice/soda, gel, dextrose or glucagon once per episode. Notify provider if hypoglycemia does not resolve after two treatments. Providers should consider the following: administering longer-acting treatments for the duration of active insulin or hypoglycemia agent for persistent hypoglycemia and re-evaluating active insulin orders before administering the next dose. glucagon (Glucagen) (1 mg/mL) injection solution 1 mg(Linked Group 2) 1 mg, Intramuscular, EVERY 15 MIN PRN, Starting on 10/30/23 at 1117, Until 10/31/23 at 1641, Low blood sugar, For BG 50-70 mg/dL: Oral treatment preferred: If able to drink, give 120 mL juice or regular (not diet) soda OR if NPO, give 15 gram glucose 40% oral gel massaged into buccal mucosa OR if unconscious or uncooperative, give 25 gram (250 mL) dextrose 10% IV over 15 minutes per protocol OR, if no IV access, 1 mg glucagon IM. For BG less than 50 mg/dL: Oral treatment preferred: If able to drink, give 240 mL juice or regular (not diet) soda OR if NPO, give 30 gram glucose 40% oral gel massaged in buccal mucosa OR if unconscious or uncooperative, give 25 gram (250 mL) dextrose 10% IV over 15 minutes per protocol OR, if no IV access, 1 mg glucagon IM. Recheck BG in 15 minutes. May repeat juice/soda, gel, dextrose or glucagon once per episode. Notify provider if hypoglycemia does not resolve after two treatments. Providers should consider the following: administering longer-acting treatments for the duration of active insulin or hypoglycemia agent for persistent hypoglycemia and re-evaluating active insulin orders before administering the next dose. , Routine glucose (Glutose) 40% oral geL(Linked Group 2) 15-30 g of glucose, Buccal, EVERY 15 MIN PRN, Starting on 10/30/23 at 1117, Until 10/31/23 at 1641, Low blood sugar, For BG 50-70 mg/dL: Oral treatment preferred: If able to drink, give 120 mL juice or regular (not diet) soda OR if NPO, give 15 gram glucose 40% oral gel massaged into buccal mucosa OR if unconscious or uncooperative, give 25 gram (250 mL) dextrose 10% IV over 15 minutes per protocol OR, if no IV access, 1 mg glucagon IM. For BG less than 50 mg/dL: Oral treatment preferred: If able to drink, give 240 mL juice or regular (not diet) soda OR if NPO, give 30 gram glucose 40% oral gel massaged in buccal mucosa OR if unconscious or uncooperative, give 25 gram (250 mL) dextrose 10% IV over 15 minutes per protocol OR, if no IV access, 1 mg glucagon IM. Recheck BG in 15 minutes. May repeat juice/soda, gel, dextrose or glucagon once per episode. Notify provider if hypoglycemia does not resolve after two treatments. Providers should consider the following: administering longer-acting treatments for the duration of active insulin or hypoglycemia agent for persistent hypoglycemia and re-evaluating active insulin orders before administering the next dose. 1 tube of Glutose-15 contains 15 grams of glucose (net weight of tube = 37.5 grams.), Routine hydrOXYzine (Atarax) tablet 50 mg 50 mg, Oral, EVERY 6 HOURS PRN, Starting on 10/30/23 at 1555, Until 10/31/23 at 1641, Itching, Routine lidocaine (Xylocaine) 1% (10 mg/mL) injection 3 mg 3 mg (0.3 mL), Subcutaneous, ONCE PRN, 1 dose, Starting on Shannan 10/28/23 at 1340, Until 10/31/23 at 1641, for discomfort with PIV insertion, Routine loperamide (Imodium A-D) capsule 2 mg 2 mg, Oral, 4 TIMES DAILY PRN, Starting on 10/30/23 at 1521, Until 10/31/23 at 1641, Diarrhea, Do not exceed 16 mg/day., Routine 1553 (Given - Provider: Viji Mack, DAVID) LORazepam (Ativan) tablet 0.5 mg (CANCELED) 0.5 mg, Oral, EVERY 6 HOURS PRN, Starting on 10/30/23 at 1520, Until 10/30/23 at 1859, Anxiety, Withdrawal, Nausea, Vomiting, Routine 1548 (Given - Provider: Viji Mack, DAVID) LORazepam (Ativan) tablet 0.5 mg (CANCELED) 0.5 mg, Oral, EVERY 4 HOURS PRN, Starting on 10/30/23 at 1900, Until 10/31/23 at 1418, Anxiety, Withdrawal, Nausea, Vomiting, Routine 2034 (Given - Provider: Tang Garcia RN) 0008 (Given - Provider: Tang Garcia RN)0411 (Given - Provider: Tang Garcia, DAVID) LORazepam (Ativan) tablet 1 mg 1 mg, Oral, EVERY 4 HOURS PRN, Starting on 10/31/23 at 1418, Until 10/31/23 at 1641, Anxiety, Withdrawal, Nausea, Vomiting, Routine mirtazapine (Remeron) tablet 15 mg 15 mg, Oral, NIGHTLY PRN, Starting on 10/30/23 at 1607, Until 10/31/23 at 1641, Sleep, If both mirtazapine and hydrOXYzine ordered, give mirtazapine as first option., Routine 2034 (Given - Provider: Tang Garcia, DAVID) ondansetron (pf) (Zofran) (2 mg/mL) injection 4 mg 4 mg, Intravenous, EVERY 8 HOURS PRN, Starting on 4/13/24 at 1519, Until 10/31/23 at 1641, Nausea 1548 (Given - Provider: Viji Mack, RN) sodium chloride 0.9 % (flush) (BD PosiFlush Normal Saline 0.9) flush 5-20 mL 5-20 mL, Intravenous, EVERY 1 MIN PRN, Starting on Shannan 10/28/23 at 1340, Until 10/31/23 at 1641, flush, Flush pertains to all indwelling lines. Flush per protocol found in the job aid using the link provided on this medication record., Routine tiZANidine (Zanaflex) tablet 2 mg 2 mg, Oral, 4 TIMES DAILY PRN, Starting on 10/31/23 at 0426, Until 10/31/23 at 1641, Xylazine withdrawal, Routine 0436 (Given - Provider: Tang Garcia RN) Linked Groups Order Group 1: POCT Fingerstick Glucose (CANCELED) Routine, 4 TIMES DAILY BEFORE MEALS & AT BEDTIME, First occurrence on 10/30/23 at 1700, Until Specified, Consider choosing FOUR TIMES A DAY BEFORE MEALS AND AT BEDTIME as frequency for: Patients who have good hypoglycemia awareness: -Patients who are eating meals during the day and sleeping at night -Patients who are otherwise stable And insulin lispro (HumaLOG;Admelog) (100 unit/mL) subcutaneous injection vial 1-4 UnitsJump to med 1-4 Units, Subcutaneous, 3 TIMES DAILY BEFORE MEALS, First dose on 10/30/23 at 1215, Until Discontinued, CORRECTION BOLUS [1-4 Units] Sensitive Sliding Scale (BG in mg/dL): Correction factor 40 (1 unit of insulin is expected to drop the glucose 40 mg/dL) ?? BG 160 - 200 Give 1 unit BG 201 - 240 Give 2 units BG 241 - 280 Give 3 units and recheck BG in 2 hours. BG greater than 280, give 4 units and recheck BG in 2 hours. - If recheck BG is LESS than 280, give no insulin and resume schedule - If recheck BG is GREATER than or EQUAL to 280, give 4 units and repeat BG in 2 hours & call for new insulin orders. DO NOT hold if NPO, unless specifically told to do so. ?? Per Inpatient Subcutaneous Insulin Policy, recheck a BG of greater than 240 mg/dL in 2 hours., Routine Group 2: glucose (Glutose) 40% oral geLJump to med 15-30 g of glucose, Buccal, EVERY 15 MIN PRN, Starting on 10/30/23 at 1117, Until 10/31/23 at 1641, Low blood sugar, For BG 50-70 mg/dL: Oral treatment preferred: If able to drink, give 120 mL juice or regular (not diet) soda OR if NPO, give 15 gram glucose 40% oral gel massaged into buccal mucosa OR if unconscious or uncooperative, give 25 gram (250 mL) dextrose 10% IV over 15 minutes per protocol OR, if no IV access, 1 mg glucagon IM. For BG less than 50 mg/dL: Oral treatment preferred: If able to drink, give 240 mL juice or regular (not diet) soda OR if NPO, give 30 gram glucose 40% oral gel massaged in buccal mucosa OR if unconscious or uncooperative, give 25 gram (250 mL) dextrose 10% IV over 15 minutes per protocol OR, if no IV access, 1 mg glucagon IM. Recheck BG in 15 minutes. May repeat juice/soda, gel, dextrose or glucagon once per episode. Notify provider if hypoglycemia does not resolve after two treatments. Providers should consider the following: administering longer-acting treatments for the duration of active insulin or hypoglycemia agent for persistent hypoglycemia and re-evaluating active insulin orders before administering the next dose. 1 tube of Glutose-15 contains 15 grams of glucose (net weight of tube = 37.5 grams.), Routine Or dextrose 10% infusionJump to med 250 mL, at 1,000 mL/hr, Intravenous, EVERY 15 MIN PRN, Starting on 10/30/23 at 1117, Until 10/31/23 at 1641, For BG 50-70 mg/dL: Oral treatment preferred: If able to drink, give 120 mL juice or regular (not diet) soda OR if NPO, give 15 gram glucose 40% oral gel massaged into buccal mucosa OR if unconscious or uncooperative, give 25 gram (250 mL) dextrose 10% IV over 15 minutes per protocol OR, if no IV access, 1 mg glucagon IM. For BG less than 50 mg/dL: Oral treatment preferred: If able to drink, give 240 mL juice or regular (not diet) soda OR if NPO, give 30 gram glucose 40% oral gel massaged in buccal mucosa OR if unconscious or uncooperative, give 25 gram (250 mL) dextrose 10% IV over 15 minutes per protocol OR, if no IV access, 1 mg glucagon IM. Recheck BG in 15 minutes. May repeat juice/soda, gel, dextrose or glucagon once per episode. Notify provider if hypoglycemia does not resolve after two treatments. Providers should consider the following: administering longer-acting treatments for the duration of active insulin or hypoglycemia agent for persistent hypoglycemia and re-evaluating active insulin orders before administering the next dose. Or glucagon (Glucagen) (1 mg/mL) injection solution 1 mgJump to med 1 mg, Intramuscular, EVERY 15 MIN PRN, Starting on 10/30/23 at 1117, Until 10/31/23 at 1641, Low blood sugar, For BG 50-70 mg/dL: Oral treatment preferred: If able to drink, give 120 mL juice or regular (not diet) soda OR if NPO, give 15 gram glucose 40% oral gel massaged into buccal mucosa OR if unconscious or uncooperative, give 25 gram (250 mL) dextrose 10% IV over 15 minutes per protocol OR, if no IV access, 1 mg glucagon IM. For BG less than 50 mg/dL: Oral treatment preferred: If able to drink, give 240 mL juice or regular (not diet) soda OR if NPO, give 30 gram glucose 40% oral gel massaged in buccal mucosa OR if unconscious or uncooperative, give 25 gram (250 mL) dextrose 10% IV over 15 minutes per protocol OR, if no IV access, 1 mg glucagon IM. Recheck BG in 15 minutes. May repeat juice/soda, gel, dextrose or glucagon once per episode. Notify provider if hypoglycemia does not resolve after two treatments. Providers should consider the following: administering longer-acting treatments for the duration of active insulin or hypoglycemia agent for persistent hypoglycemia and re-evaluating active insulin orders before administering the next dose. , Routine documented in this encounter Care Teams [employer] Relationship Specialty Start Date End Date Milo Baer MD [address] [place] [address] [place] [address] PCP - [facility] Medicine 04/08/23 11/30/23 documented as of this encounter
--- OUTSIDE RECORDS SUMMARY | 2024-07-02 14:29 | XMS_ITS | Encounter Summary ---
Author Organization [facility] [place] [address] Care Team Providers Care Communications Tower Climber Name Role Phone Milo Baer MD Primary Care Provider [phone] Encounter Details Date Type Department Care Team (Late st Contact Info) Description 09/26/2023 Interpretation Only [address] [id number] Chris Castro MD [address] [place] [id number] Social History Tobacco Use Types Packs/Day Years [...] 8:30 AM EST Office Visit Gastroenterology at [facility] [place] [address] Denae Wilson MD [facility] [place] [address] documented as of this encounter Procedures Procedure Name Priority Date/Time Associated Diagnosis Comments XR CHEST ONE VIEW STAT 09/26/2023 8:5 4 PM EDT documented in this encounter Results * XR Chest One View (09/26/2023 8:54 PM EDT) PT CLASS E RAD ADMITDTTM [id number] RAD PT RAD INFO [id number]^Matthew^An sudha RAD EXAM DESC XCXR1^XR Chest 1 View^RIS RAD Anatomical Region Laterality Modality Chest N/A Radiographic Huong ging 09/26/2023 8:54 PM EDT Impressions 09/26/2023 9:06 PM EDT No definitive acute cardiopulmonary abnormalities on this 1 view chest to explain cough. Thank you for letting us participate in the care of this patient. ??If you are a health care provider and have any questions regarding this report, please contact the number below. ??For patients who have questions please contact the health child care provider that requested your imaging first. ? Narrative 09/26/2023 9:06 PM EDT EXAMINATION: XR Chest 1 View CLINICAL HISTORY: cough TECHNIQUE: 1 view COMPARISON: None FINDINGS: The cardiomediastinal silhouette is normal. No focal consolidation. No pleural effusion or pneumothorax. No acute osseous abnormalities are found. Procedure Note Nessa Lau MD - 09/26/2023 EXAMINATION: XR Chest 1 View CLINICAL HISTORY: cough TECHNIQUE: 1 view COMPARISON: None FINDINGS: The cardiomediastinal silhouette is normal. No focal consolidation. No pleural effusion or pneumothorax. No acute osseous abnormalities are found. IMPRESSION No definitive acute cardiopulmonary abnormalities on this 1 view chestto explain cough. Thank you for letting us participate in the care of this patient. If youare a health care provider and have any questions regarding this report,please contact the number below. For patients who have questions please contactthe health child care provider that requested your imaging first. Chris Castro MD IMG DX ORDERABLES documented in this encounter Visit Diagnoses Not on filedocumented in this encounter Care Teams Communications Tower Climber Relationship Specialty Start Date End Date Mlio Baer MD [address] [place] [id number] PCP - General [facility] Medicine 04/08/23 11/30/23 documented as of this encounter
--- OUTSIDE RECORDS SUMMARY | 2024-07-02 14:29 | XMS_ITS | Encounter Summary ---
[place] [address] Care Team Providers Care Human Service Coordinator Name Role Phone Milo Baer MD Primary Care Provider [phone] Encounter Details Date Type Department Care Team (Late st Contact Info) Description 04/12/2023 Telephone [place] [address] Richa Naylor Social History Tobacco Use Types Packs/Day Years Used Date Smoking Tobacco: Never Assessed Sex and Gender Information Value Date Recorded Sex Assigned at Not on file Gender Identity Not on file Sexual Orientation Not on file documented as of this encounter Miscellaneous Notes * Telephone Encounter - Richa Naylor - 04/12/2023 12:40 PM EDTSummary: [facility] - Image Request Images from the original note were not included. From: Richa Naylor Sent: Wednesday, April 12, 2023 12:39 PM To: '[email or web address]' <[email or web address]> Subject: Urgent Image Request Martín Baires have a referral for patient Marcos Camejo 1980 to be seen in our Otolaryngology clinic at [facility]. Our provider Dr Tang Manley is in need of the following images and reports to be sent so that they can be reviewed. Ct dated 01/24/23 CT dated 02/26/23 *Please send DIYA as patient has Appt 04/21/23 Any other images done of the Head/Neck/Chest areas that may help in a treatment plan for the patient would be helpful as well including any swallow studies. Please push over images and fax over the reports to our image Library to [phone] If you cannot send the requested images and reports electronically Please mail STANDARD NEXT DAY via FEDEX NUMBER REDACTED to the address below [facility] Attn: [facility] [address] [place] [id number] Please call with any questions Wednesday through Wednesday. Our number is [phone] option 1. Thank you, Richa Naylor Sr. Clinical Restaurant Area Director Otolaryngology, Audiology and Oral & Maxillofacial Surgery [facility] documented in this encounter Plan of Treatment Upcoming Encounters Date Type Department Care Team (Late st Contact Info) Description 08/01/2024 8:30 AM EST Office [place] [address] Denae Wilson MD [facility] [place] [address] documented as of this encounter Visit Diagnoses Not on filedocumented in this encounter Care Teams Human Service Coordinator Relationship Specialty Start Date End Date Milo Baer MD [address] [place] [address] [place] [address] PCP - General [facility] Medicine 04/08/23 11/30/23 documented as of this encounter
--- OUTSIDE RECORDS SUMMARY | 2024-07-02 14:29 | XMS_ITS | Encounter Summary ---
[place] [address] Care Team Providers Care Classroom Technology Technician Name Role Phone Milo Baer MD Primary Care Provider [phone] Encounter Details Date Type Department Care Team (Latest Contact Info) Description 09/26/2023 9:48 PM EDT - 09/26/2023 11:59 PM EDT Hospital Encounter [facility] [address] [place] [phone] Chris Castro MD [address] [place] [address] Discharge Disposition: Home Social History Tobacco Use Types Packs/Day Years Used Date Smoking Tobacco: Never Assessed Sex and Gender Information Value Date Recorded Sex Assigned at Not on file Gender Identity Not on file Sexual Orientation Not on file documented as of this encounter Medications at Time of Discharge Medication Sig Dispensed Refills Start Date End Date Suboxone 12-[address] 2 Film under the tongue daily. 09/25/2023 cholecalciferol (Vitamin D) 1,000 unit tablet Take 1 tablet by mouth daily. 09/21/2022 albendazole (Albenza) 200 mg tablet 400 mg. 04/19/2023 09/30/2023 OXYcodone 10 mg Tab 04/16/2009 09/30/19 divalproex (DEPAKOTE) 250 mg EC tablet 04/16/2009 09/30/2023 documented as of this encounter Plan of Treatment Upcoming Encounters Date Type Department Care Team (Late st Contact Info) Description 08/01/2024 8:30 AM EST Office Visit Gastroenterology at [facility] [phone] Denae Wilson MD [facility] [place] [address] documented as of this encounter Procedures Procedure Name Priority Date/Time Associated Diagnosis Comments BLOOD CULTURE Routine 09/26/2023 9:55 PM EDT BLOOD CULTURE Routine 09/26/2023 9:15 PM EDT documented in this encounter Results * (ABNORMAL) Blood culture (09/26/2023 9:55 PM EDT) Blood Culture Staphylococcus aureus, MSSA detected by PCR Isolate saved. If future testing is required, contact the Microbiology Manager [employer]. (A) [facility] Gram Stain Anaerobic Growth detected in anaerobic bottle. Gram Positive Cocci in clusters seen Results called to and read back by Bri Crane (A) [facility] Organism Staphylococcus aureus(A) [facility] Organism Staphylococcus aureus, MSSA(A) [facility] Organism Gram Positive Cocci in clusters(A) [facility] Blood 09/26/2023 9:55 PM EDT 09/27/2023 9:58 AM EDT Comment:No site provided Narrative Resulting Agency Comment Spec In Lab Organism Antibiotic Method Susceptibility Staphylococcus aureus Clindamycin MICROSCAN METHOD Resistant Staphylococcus aureus Erythromycin MICROSCAN METHOD Resistant Staphylococcus aureus Gentamicin MICROSCAN METHOD Sensitive Comment:Gentamicin i s not appropriate for [place]-therapy. Staphylococcus aureus Oxacillin MICROSCAN METHOD Sensitive Comment: Oxacillin (methicillin) susceptibility is a surrogate for the oral and parenteral cephalosporins, beta-lactam combination agents (amoxicillin-clavulanate, ampicillin-sulbactam and piperacillin-tazobactam) and carbapenem agents. ??It is NOT a surrogate for penicillin, ampicillin or piperacillin susceptibility. Staphylococcus aureus Tetracycline MICROSCAN METHOD Sensitive Staphylococcus aureus Trimethoprim/Sulfa MICROSCAN MET HOD Sensitive Staphylococcus aureus Vancomycin MICROSCAN METHOD Sensitive Chris Castro MD MICROBIOLOGY - BLOOD ORDERABLES Performing Organization Address City/[facility]/ZIP Co de Phone Number [facility] [place] [address] * Blood culture (09/26/2023 9:15 PM EDT) Blood Culture No growth at 5 days. [facility] Blood 09/26/2023 9:15 PM EDT 09/27/2023 9:53 AM EDT Comment:No site provided Narrative Resulting Agency Comment Spec In Lab Chris Castro MD MICROBIOLOGY - BLOOD ORDERABLES Performing Organization Address [facility] [place] [address] documented in this encounter Visit Diagnoses Not on filedocumented in this encounter Care Teams Classroom Technology Technician Relationship Specialty Start Date End Date Milo Baer MD [address] [place] [address] [place] [address] PCP - [facility] Hospital Medicine 04/08/23 11/30/23 documented as of this encounter
--- OUTSIDE RECORDS SUMMARY | 2024-07-02 14:29 | XMS_ITS | Encounter Summary ---
[place] [address] Care Team Providers Care Hand Stoner Name Role Phone Milo Baer MD Primary Care Provider [phone] Reason for Referral * Consultation (Routine) - Closed Specialty Diagnoses / Procedures Referred By Contac t Referred To Contact Infectious Diseases Diagnoses Abrasion of nose, initial encounter Milo Baer MD [address] [place] [address] [place] [address] [facility] [address] [place] [phone] Referral ID Status Reason Start Date Expiration Date V isits Requested Visits Authorized [id number] Closed Consult, Test & Treat PCP Updated and/or Approved 05/05/2023 05/04/2024 6 6 Encounter Details Date Type Department Care Team (Latest Contact Info) Description 05/05/2023 Transcribe Orders eDH Incoming Referrals [phone] Milo Baer MD [address] [place] [address] [address] [place] [phone] Abrasion of nose, initial encounter Social History Tobacco Use Types Packs/Day Years Used Date Smoking Tobacco: Every Day Cigarettes Smokeless Tobacco: Never Sex and Gender Information Value Date Recorded Sex Assigned at Not on file Gender Identity Not on file Sexual Orientation Not on file documented as of this encounter Plan of Treatment Upcoming Encounters Date Type Department Care Team (Late st Contact Info) Description 08/01/2024 8:30 AM EST Office [place] [address] Denae Wilson MD [facility] [place] [address] Scheduled Referrals Name Type Priority Associated Diagnoses Order Schedule Referral to Infectious Disease and [facility] Outpatient Referral Routine Abrasion of nose, initial encounter Ordered: 05/05/2023 documented as of this encounter Visit Diagnoses Diagnosis Abrasion of nose, initial encounter documented in this encounter Care Teams Hand Stoner Relationship Specialty Start Date End Date Milo Baer MD [address] [place] [address] [place] [address] PCP - General [facility] Medicine 04/08/23 11/30/23 documented as of this encounter
--- OUTSIDE RECORDS SUMMARY | 2024-07-02 14:29 | XMS_ITS | Encounter Summary ---
Author Organization [facility] [place] [address] Care Team Providers Care Water Registrar Name Role Phone Milo Baer MD Primary Care Provider [phone] Reason for Visit * Reason Comments Other Patient thinks there are parasites in his nose. Reports having egg sacks coming out when he goes to the bathroom. Thinks there is something slithering across his skull. Also mentioned that he drank some brook water and thinks he got the parasites from there. Has been going on for months. Feels like he is dying. Has been on antiparasitic medications. Says he has parasites in his feet and the back of his throat. Reports losing 30lbs. Using fentanyl daily that isn't prescribed. Has open sores on hand * Consultation (Routine) - Closed Specialty Diagnoses / Procedures Referred By Betzy beltran Referred To Contact Otolaryngology Diagnoses Chronic rhinitis Roney Ordoñez MD [address] [place] [address] [place] [address] [facility] [address] [place] [phone] Referral ID Status Reason Start Date Expiration Date V isits Requested Visits Authorized [id number] Closed Consult, Test & Treat PCP Updated and/or Approved 04/08/2023 04/07/2024 6 6 Encounter Details Date Type Department Care Team (Late st Contact Info) Description 04/21/2023 1:00 PM EDT Office Visit Otolaryngology at [facility] [place] [address] Tang Manley III, MD [facility] [address] Lucille's delusional parasitosis Social History Tobacco Use Types Packs/Day Years Used Date Smoking Tobacco: Every Day Cigarettes Smokeless Tobacco: Never Tobacco Cessation:Ready to Q uit: Not Asked; Counseling Given: Not Answered Sex and Gender Information Value Date Recorded Sex Assigned at Not on file Gender Identity Not on file Sexual Orientation Not on file documented as of this encounter Last Filed Vital Signs Vital Sign Reading Time Taken Comments Blood Pressure - - Pulse - - Temperature - - Respiratory Rate - - Oxygen Saturation - - Inhaled Oxygen Concentration - - Weight 72.6 kg (160 lb) 04/21/2023 1:39 PM EDT Height 175.3 cm (5' 9) 04/21/2023 1:39 PM EDT Body Mass Index 23.63 04/21/2023 1:39 PM EDT documented in this encounter Progress Notes * Tang Manley III, MD - 04/21/2023 1:00 PM EDT Otolaryngology Outpatient Consultation Note Date of Visit: 04/21/2023 Location of Visit: Otolaryngology Clinic, [facility] Patient: Marcos Camejo ([id number]; 1980) Primary Care Provider: Milo Baer MD Referring Provider: Roney Ordoñez Reason for Visit: Marcos is a 42 y.o. male seen at the request of Roney Ordoñez in consultation for rhinitis. Referral letter: Reviewed History of Present Illness: Marcos reports that he has parasites in his nose. He also claims to have them throughout his body. Clearly hyperconcerned, he is difficult to reason with. He admits to using fentanyl prior to this visit. Past Medical History: No past medical history on file. Past Surgical History: No past surgical history on file. Medications: Current Outpatient Medications on File Prior to Visit Medication Sig Dispense Refill OXYcodone 10 mg Tab divalproex (DEPAKOTE) 250 mg EC tablet No current facility-administered medications on file prior to visit. Allergies: Penicillins Social History: Lives in [place] [address], Tobacco:Yes Alcohol:Yes Other: Immunizations UTD. Family History: No family history on file. Review of Systems: Pertinent positive findings discussed above. No other findings on review of constitutional, visual, cardiovascular, respiratory, gastrointestinal, genitourinary, musculoskeletal, dermatologic, neurological, psychiatric, endocrine, hematologic or immunologic systems. Physical Examination: Vitals: There were no vitals taken for this visit. General: No acute distress. Face: Full and symmetric facial movement. No dysmorphic facial features. Eyes: Periocular structures and conjunctiva healthy without lesions. Pupils are equal, round, and reactive to light. Extraocular movement is full and intact. No dysconjugate gaze. No evidence of nystagmus. Ears: Auricles symmetric without lesions. External auditory canals clear. Nose: Patent anteriorly with adequate airflow, healthy pink mucosa. Septum is midline without significant deviation. Inferior turbinates crusted left side. Mouth: Lips and gingiva pink, moist, without lesions. Dentition healthy. Tongue and floor of mouth soft without lesions or masses. Hard palate without lesions. Pharynx: Soft palate without lesions. Uvula is intact. Oropharynx symmetric. Larynx: Vocal mobility and morphology normal. Neck: Soft, supple, without significant lymphadenopathy. Thyroid gland without masses or asymmetry.Trachea midline without deviation. Lymphatic: Negative for additional peripheral lymphadenopathy or lymphedema. Neurologic: Cranial nerves II-XII intact and symmetric. Procedure -Nasal Endoscopy Topical anesthetic applied to the nasal cavity. Patient tolerated the procedure well without complication. Findings: Nasal Cavity: Crusting left, removed, no evidence parasites of any kind. Nasopharynx: Normal. Impression: No evidence of actual infection. Recommendations: Reassurance. 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
--- OUTSIDE RECORDS SUMMARY | 2024-07-02 14:29 | XMS_ITS | Encounter Summary ---
Author Organization [facility] [address] Care Team Providers Care Ab Initio Etl Developer Name Role Phone Milo Baer MD Primary Care Provider [phone] Encounter Details Date Type Department Care Team (Late st Contact Info) Description 09/28/2023 Interpretation Only [facility] [address] [place] [phone] Hari Alvarado MD [address] [place] [address] Social History Tobacco Use Types Packs/Day Years [...] 8:30 AM EST Office Visit Gastroenterology at [facility] [place] [address] Denae Wilson MD [facility] [place] [address] documented as of this encounter Procedures Procedure Name Priority Date/Time Associated Diagnosis Comments XR CHEST PA AND LATERAL STAT 09/28/2023 9:53 AM EDT documented in this encounter Results * XR Chest PA & Lateral (Generic) (09/28/2023 9:53 AM EDT) PT CLASS E RAD ADMITDTTM [id number] RAD PT RAD INFO [id number]^Potter^ Hari RAD EXAM DESC XCXR2^XR Chest 2 Views^RIS RAD Anatomical Region Laterality Modality Chest N/A Radiographic Huong ging 09/28/2023 9:39 AM EDT Impressions 09/28/2023 10:04 AM EDT No acute cardiopulmonary pathology. Thank you for letting us participate in the care of this patient. ??If you are a health care provider and have any questions regarding this report, please contact the number below. ??For patients who have questions please contact the health lawn caretaker that requested your imaging first. ? Narrative 09/28/2023 10:04 AM EDT EXAMINATION: XR Chest 2 Views CLINICAL HISTORY: shortness of breath TECHNIQUE: 2 views of the chest COMPARISON: September 26, 2023 FINDINGS: The lungs are clear. The heart is normal in size. No pneumothorax or pleural effusions detected. Mild multilevel degenerative thoracic spondylosis changes. Procedure Note Keny Leos MD - 09/28/2023 EXAMINATION: XR Chest 2 Views CLINICAL HISTORY: shortness of breath TECHNIQUE: 2 views of the chest COMPARISON: September 26, 2023 FINDINGS: The lungs are clear. The heart is normal in size. No pneumothorax orpleural effusions detected. Mild multilevel degenerative thoracic spondylosischanges. IMPRESSION No acute cardiopulmonary pathology. Thank you for letting us participate in the care of this patient. If youare a health care provider and have any questions regarding this report,please contact the number below. For patients who have questions please contactthe health lawn caretaker that requested your imaging first. Hari Alvarado MD IMG DX ORDERABLES documented in this encounter Visit Diagnoses Not on filedocumented in this encounter Care Teams Ab Initio Etl Developer Relationship Specialty Start Date End Date Milo Baer MD [address] [place] [address] [place] [address] PCP - [facility] Medicine 04/08/23 11/30/23 documented as of this encounter
--- OUTSIDE RECORDS SUMMARY | 2024-07-02 14:29 | XMS_ITS | Encounter Summary ---
Author Organization [facility] [place] [address] Care Team Providers Care Controller Mechanic Name Role Phone Milo Baer MD Primary Care Provider Encounter Details Date Type Department Care Team (Late st Contact Info) Description 04/22/2023 Ancillary Procedure Radiology Library at [facility] [place] [address] Milo Baer MD [address] [place] [address] [place] [address] Social History Tobacco Use Types Packs/Day Years [...] 8:30 AM EST Office Visit Gastroenterology at [facility] [place] [address] Denae Wilson MD [facility] GASTROENTER[place] [address] documented as of this encounter Procedures Procedure Name Priority Date/Time Associated Diagnosis Comments FILM LIBRARY STORAGE ONLY CT HEAD Routine 04/22/2023 12:00 AM EDT documented in this encounter Results * Film Library- Storage Only CT Head (04/22/2023 12:00 AM EDT) Narrative RAD - 04/29/2023 2:11 PM EDT This exam is auto-finalizing. It's purpose is for storage only. Milo Baer MD IMG FILM LIBRARY ORD ERABLES [place], [place] documented in this encounter Visit Diagnoses Not on filedocumented in this encounter Care Teams Controller Mechanic Relationship Specialty Start Date End Date Milo Baer MD [address] [place] [address] [place] [address] PCP - [facility] Medicine 04/08/23 11/30/23 documented as of this encounter
--- OUTSIDE RECORDS SUMMARY | 2024-07-02 14:29 | XMS_ITS | Encounter Summary ---
[place] [address] Care Team Providers Care Special Procedure Tech Name Role Phone Milo Baer MD Primary Care Provider [phone] Reason for Visit * Reason Comments Pharyngitis Leg Swelling Encounter Details Date Type Department Care Team (Late st Contact Info) Description 10/16/2023 7:35 PM EDT - 10/16/2023 7:42 PM EDT [place] [phone] Discharge Disposition: Left Without Being Seen after Triage Social History Tobacco Use Types Packs/Day Years Used Date Smoking Tobacco: Every Day Cigarettes Smokeless Tobacco: Never Alcohol Use Standard Drinks/Week Comments Not Currently 0 (1 standard drink = 0.6 oz pur e alcohol) [facility] Utilities Answer Date Recorded In the past 12 months has Qoopl, gas, oil, or water Babyage threatened to shut off services in your [...] place to sleep or slept in a longterm (including now)? No 10/01/2023 IPV Inpatient Questions Answer Date Recorded Does [...] Sign Reading Time Taken Comments Blood Pressure 137/78 10/16/2023 5:21 PM EDT Pulse 83 10/16/2023 5:21 PM EDT Temperature 37.3 ??C (99.1 ??F) 10/16/2023 5:21 PM ED T Respiratory Rate 18 10/16/2023 5:21 PM EDT Oxygen Saturation 96% 10/16/2023 5:21 PM EDT Inhaled Oxygen Concentration - - Weight 77.1 kg (170 lb) 10/16/2023 5:21 PM EDT Height 175.3 cm (5' 9) 10/16/2023 5:21 PM EDT Body Mass Index 25.1 10/16/2023 5:21 PM EDT documented in this encounter Medications at Time of Discharge Medication Sig Dispensed Refills Start Date End Date Suboxone 12-[address] 2 Film under the tongue daily. 09/25/2023 cholecalciferol (Vitamin D) 1,000 unit tablet Take 1 tablet by mouth daily. 09/21/2022 documented as of this encounter Plan of Treatment Upcoming Encounters Date Type Department Care Team (Late st Contact Info) Description 08/01/2024 8:30 AM EST Office [place] [address] Denae Wilson MD [facility] [address] documented as of this encounter Visit Diagnoses Not on filedocumented in this encounter Care Teams Special Procedure Tech Relationship Specialty Start Date End Date Milo Baer MD [address] [place] [address] [place] [address] PCP - [facility] Medicine 04/08/23 11/30/23 documented as of this encounter
--- OUTSIDE RECORDS SUMMARY | 2024-07-02 14:29 | XMS_ITS | Encounter Summary ---
[place] [address] Care Team Providers Care Software Build Engineer Name Role Phone Milo Baer MD Primary Care Provider [phone] Encounter Details Date Type Department Care Team (Late Contact Info) Description 09/28/2023 10:06 AM EDT - 09/28/2023 11:59 PM EDT Hospital Encounter [facility] Lab [address] [place] [address] Hari Alvarado MD [address] [place] [address] Discharge Disposition: Home Social History Tobacco Use [...] 8:30 AM EST Office [place] [address] Denae Wilson MD [facility] [place] [address] documented as of this encounter Procedures Procedure Name Priority Date/Time Associated Diagnosis Comments BLOOD CULTURE Routine 09/28/2023 10:01 AM EDT BLOOD CULTURE Routine 09/28/2023 9:26 AM EDT documented in this encounter Results * Blood culture (09/28/2023 10:01 AM EDT) Blood Culture No growth at 5 days. [facility] Blood 09/28/2023 10:0 1 AM EDT 09/28/2023 7:14 PM EDT Comment:RAC Narrative Resulting Agency Comment Spec In Lab Hari Alvarado MD MICROBIOLOGY - BLOOD ORDERABLES Performing Organization Address City/[facility]/[place] [address] * Blood culture (09/28/2023 9:26 AM EDT) Blood Culture No growth at 5 days. [facility] Blood 09/28/2023 9:26 AM EDT 09/28/2023 7:12 PM EDT Comment:LAC Narrative Resulting Agency Comment Spec In Lab Hari Alvarado MD MICROBIOLOGY - BLOOD ORDERABLES Performing Organization Address City/[facility]/[place]IP [place] [address] documented in this encounter Visit Diagnoses Not on filedocumented in this encounter Care Teams Software Build Engineer Relationship Specialty Start Date End Date Milo Baer MD [address] [place] [address] [place] [address] PCP - [facility] Medicine 04/08/23 11/30/23 documented as of this encounter
--- OUTSIDE RECORDS SUMMARY | 2024-07-02 14:29 | XMS_ITS | Encounter Summary ---
Author Organization [facility] [place] [address] Care Team Providers Care Certified Family Mediator Name Role Phone Kwadwo Mitchell MD Primary Care Provider [phone] Encounter Details Date Type Department Care Team (Late st Contact Info) Description 01/22/2023 Ancillary Procedure Radiology Library at [facility] [place] [address] Milo Baer MD [address] [place] [address] [place] [address] Social History Tobacco Use Types Packs/Day Years [...] 8:30 AM EST Office Visit Gastroenterology at [facility] [place] [address] Denae Wilson MD [facility] [address] documented as of this encounter Procedures Procedure Name Priority Date/Time Associated Diagnosis Comments FILM LIBRARY STORAGE ONLY CT HEAD Routine 01/22/2023 12:00 AM EDT documented in this encounter Results * Film Library- Storage Only CT Head (01/22/2023 12:00 AM EDT) Narrative RAD - 04/06/2023 9:05 PM EDT This exam is auto-finalizing. It's purpose is for storage only. Milo Baer MD IMG FILM LIBRARY ORD ERABLES [place], [place] documented in this encounter Visit Diagnoses Not on filedocumented in this encounter Care Teams Certified Family Mediator Relationship Specialty Start Date End Date Kwadwo Mitchell MD [address] [place] [id number] PCP - General 06/10/10 04/07/23 documented as of this encounter
--- OUTSIDE RECORDS SUMMARY | 2024-07-02 14:29 | XMS_ITS | Encounter Summary ---
Author Organization [facility] [place] [address] Care Team Providers Care County Engineer Name Role Phone Kwadwo Mitchell MD Primary Care Provider [phone] Encounter Details Date Type Department Care Team (Late st Contact Info) Description 02/24/2023 Ancillary Procedure Radiology Library at [facility] [place] [address] Milo Baer MD [address] [place] [address] [place] [address] Social History Tobacco Use Types Packs/Day Years [...] 8:30 AM EST Office Visit Gastroenterology at [facility] [place] [place] [address] Denae Wilson MD [facility] [place] [address] documented as of this encounter Procedures Procedure Name Priority Date/Time Associated Diagnosis Comments FILM LIBRARY- STORAGE ONLY CT FACE Routine 02/24/2023 12:00 AM EDT documented in this encounter Results * Film Library-Storage Only CT Face (02/24/2023 12:00 AM EDT) Narrative RAD - 04/29/2023 2:11 PM EDT This exam is auto-finalizing. It's purpose is for storage only. Milo Baer MD IMG FILM LIBRARY ORD ERABLES [place], [place] documented in this encounter Visit Diagnoses Not on filedocumented in this encounter Care Teams County Engineer Relationship Specialty Start Date End Date Kwadwo Mitchell MD [address] [place] [id number] PCP - General 06/10/10 04/07/23 documented as of this encounter
--- OUTSIDE RECORDS SUMMARY | 2024-07-02 14:29 | XMS_ITS | Encounter Summary ---
Author Organization [facility] [place] [address] Care Team Providers Care Chore Tender Name Role Phone Milo Baer MD Primary Care Provider [phone] Encounter Details Date Type Department Care Team (Late st Contact Info) Description 09/28/2023 Interpretation Only [facility] [address] [place] [phone] Hari Alvarado MD [address] [place] [address] Social History Tobacco Use Types Packs/Day Years [...] 8:30 AM EST Office Visit Gastroenterology at [facility] [place] [address] Denae Wilson MD [facility] [place] [address] documented as of this encounter Procedures Procedure Name Priority Date/Time Associated Diagnosis Comments XR HAND MIN 3 VIEWS BILAT STAT 09/28/2023 11:30 AM EDT documented in this encounter Results * XR Hand Min 3 views Bilat (Generic) (09/28/2023 11:30 AM EDT) PT CLASS E RAD ADMITDTTM [id number] RAD PT RAD INFO [id number]^Jenny^ Hari RAD EXAM DESC [id number]^XR Hand Complete 3+ Views Bilateral^RIS RAD Anatomical Region Laterality Modality Hand Bilateral Radiographic Huong ging 09/28/2023 11:3 0 AM EDT Impressions 09/28/2023 11:32 AM EDT Extensive soft tissue swelling over the dorsum of both hands. No soft tissue gas detected. No evidence of osseous destructive changes to suggest osteomyelitis. No fractures seen. No focal osseous lesions. Thank you for letting us participate in the care of this patient. ??If you are a health care provider and have any questions regarding this report, please contact the number below. ??For patients who have questions please contact the health assurance services manager health care that requested your imaging first. ? Narrative 09/28/2023 11:32 AM EDT EXAMINATION: XR Hand Complete 3+ Views Bilateral CLINICAL HISTORY: infection, looking for gas TECHNIQUE: 3 views of each hand COMPARISON: None FINDINGS: See impression. Procedure Note Keny Leos MD - 09/28/2023 EXAMINATION: XR Hand Complete 3+ Views Bilateral CLINICAL HISTORY: infection, looking for gas TECHNIQUE: 3 views of each hand COMPARISON: None FINDINGS: See impression. IMPRESSION Extensive soft tissue swelling over the dorsum of both hands. No softtissue gas detected. No evidence of osseous destructive changes to suggestosteomyelitis. No fractures seen. No focal osseous lesions. Thank you for letting us participate in the care of this patient. If youare a health care provider and have any questions regarding this report,please contact the number below. For patients who have questions please contactthe health assurance services manager health care that requested your imaging first. Hari Alvarado MD IMG DX ORDERABLES documented in this encounter Visit Diagnoses Not on filedocumented in this encounter Care Teams Chore Tender Relationship Specialty Start Date End Date Milo Baer MD [address] [place] [address] [place] [address] PCP - [facility] Medicine 04/08/23 11/30/23 documented as of this encounter
--- OUTSIDE RECORDS SUMMARY | 2024-07-02 14:29 | XMS_ITS | Encounter Summary ---
Author Organization [facility] [place] [address] Care Team Providers Care Finisher Special Stocks Name Role Phone Kwadwo Mitchell MD Primary Care Provider Encounter Details Date Type Department Care Team (Late st Contact Info) Description 05/05/2017 Telephone Pediatrics at [address] [address] Juana Chavez MSW Social History Tobacco Use Types Packs/Day Years Used Date Smoking Tobacco: Never Assessed Sex and Gender Information Value Date Recorded Sex Assigned at Not on file Gender Identity Not on file Sexual Orientation Not on file documented as of this encounter Miscellaneous Notes * Telephone Encounter - Juana hCavez LICSW - 05/05/2017 4:51 PM EDT Opened in error. documented in this encounter Plan of Treatment Upcoming Encounters Date Type Department Care Team (Late st Contact Info) Description 08/01/2024 8:30 AM EST Office Visit [place] [address] Denae Wilson MD [facility] [place] [address] documented as of this encounter Visit Diagnoses Not on filedocumented in this encounter Care Teams Finisher Special Stocks Relationship Specialty Start Date End Date Kwadwo Mitchell MD [address] [place] [address] PCP - General 06/10/10 04/07/23 documented as of this encounter
--- OUTSIDE RECORDS SUMMARY | 2024-07-02 14:29 | XMS_ITS | Encounter Summary ---
[place] [address] Care Team Providers Care Manager Business Continuity Name Role Phone Milo Baer MD Primary Care Provider [phone] Encounter Details Date Type Department Care Team (Late st Contact Info) Description 04/12/2023 Telephone [place] [address] Richa Naylor Social History Tobacco Use Types Packs/Day Years Used Date Smoking Tobacco: Never Assessed Sex and Gender Information Value Date Recorded Sex Assigned at Not on file Gender Identity Not on file Sexual Orientation Not on file documented as of this encounter Miscellaneous Notes * Telephone Encounter - Richa Naylor - 04/12/2023 12:41 PM EDT Patient called to schedule for referral. Patient has seen ENT - Dr. Ordoñez (notes in chart) Patient has had CT scan - requested from [facility] Patient requesting appt for next available Scheduled patient using DT - scheduled for 04/21 Reviewed pcp, demographics and insurance. Patient declined any emergency contacts/ documented in this encounter Plan of Treatment Upcoming Encounters Date Type Department Care Team (Late st Contact Info) Description 08/01/2024 8:30 AM EST Office Visit [place] [address] Denae Wilson MD [facility] [place] [address] documented as of this encounter Visit Diagnoses Not on filedocumented in this encounter Care Teams Manager Business Continuity Relationship Specialty Start Date End Date Milo Baer MD [address] [place] [address] [place] [address] PCP - General [facility] Medicine 04/08/23 11/30/23 documented as of this encounter
--- OUTSIDE RECORDS SUMMARY | 2024-07-02 14:29 | XMS_ITS | Encounter Summary ---
Author [facility] [place] [place] [address] Care Team Providers Care International Account Executive Name Role Phone Kwadwo Mitchell MD Primary Care Provider [phone] Encounter Details Date Type Department Care Team (Late st Contact Info) Description 08/20/2020 Orders [place] [address] Juan Christianson MD [facility] [place] [address] Social History Tobacco Use Types Packs/Day Years [...] 8:30 AM EST Office [place] [address] Denae Wilson MD [facility] [place] [address] documented as of this encounter Visit Diagnoses Not on filedocumented in this encounter Care Teams International Account Executive Relationship Specialty Start Date End Date Kwadwo Mitchell MD [address] [place] [address] PCP - General 06/10/10 04/07/23 documented as of this encounter
--- OUTSIDE RECORDS SUMMARY | 2024-07-02 14:29 | XMS_ITS | Encounter Summary ---
Author Organization [facility] [place] [address] Care Team Providers Care Woodyard Operator Name Role Phone Milo Baer MD Primary Care Provider [phone] Encounter Details Date Type Department Care Team (Late st Contact Info) Description 09/28/2023 Interpretation Only [facility] [address] [place] [phone] Hari Alvarado MD [address] [place] [address] Social History Tobacco Use Types Packs/Day Years [...] 8:30 AM EST Office Visit Gastroenterology at [place] [address] Denae Wilson MD [facility] [place] [address] documented as of this encounter Procedures Procedure Name Priority Date/Time Associated Diagnosis Comments CT ABDOMEN AND PELVIS W CONTRAST STAT 09/28/2023 10:29 AM EDT documented in this encounter Results * CT Abdomen & Pelvis w Contrast (09/28/2023 10:29 AM EDT) PT CLASS E RAD ADMITDTTM [id number] [facility] PT [facility] INFO [id number]^Potter^ Hari RAD EXAM DESC CTAPW^CT Abdomen and Pelvis w/ Contrast^RIS [facility] Anatomical Region Laterality Modality Abdomen, Pelvis Computed Tomogra phy 09/28/2023 10:2 7 AM EDT Impressions 09/28/2023 10:41 AM EDT 1. ??Hepatosplenomegaly. 2. ??Trace amount of pelvic ascites. 3. ??No abscess identified. Thank you for letting us participate in the care of this patient. ??If you are a health care provider and have any questions regarding this report, please contact the number below. ??For patients who have questions please contact the health career discovery teacher that requested your imaging first. ? Electronically signed by: Keny Leos MD, [facility] ([phone]), at 09/28/2023 10:41 AM Narrative 09/28/2023 10:41 AM EDT EXAMINATION: CT Abdomen and Pelvis w/ Contrast CLINICAL HISTORY: Abd pain TECHNIQUE: Helical CT of the abdomen and pelvis following the intravenous administration of 100 mL of Omnipaque 350. Oral contrast was not administered. The study is limited due to low znbaew-hd-dbmbg ratio and relatively low contrast resolution. COMPARISON: None FINDINGS: Lower chest: Normal. Liver: Normal attenuation. Enlarged at 21 cm craniocaudally. No focal lesions. Bile ducts: Nondilated. Gallbladder: Decompressed. No calcified gallstones. Normal caliber wall. Pancreas: Normal attenuation without ductal dilatation. Spleen: Enlarged at 14 cm craniocaudally, contains a number of calcified granulomas. Adrenals: Normal. Kidneys: Normal. Urinary Bladder: Normal. Vasculature: No abdominal aortic aneurysm. Lymph Nodes: No enlarged lymph nodes. Bowel: Nondilated, no wall thickening. ?? Peritoneum and retroperitoneum: Trace amount free fluid in the pelvis. No pneumoperitoneum. No loculated fluid collection or mesenteric inflammation. Abdominal wall: Intact. Reproductive organs: Normal. Osseous structures: Degenerative spondylosis changes at L1-L2 intervertebral disc space narrowing and vacuum disc phenomenon. No suspicious lesions. Procedure Note Keny Leos MD - 09/28/2023 EXAMINATION: CT Abdomen and Pelvis w/ Contrast CLINICAL HISTORY: Abd pain TECHNIQUE: Helical CT of the abdomen and pelvis following theintravenous administration of 100 mL of Omnipaque 350. Oral contrast was notadministered. The study is limited due to low tvqzsp-py-vpset ratio and relatively low contrast resolution. COMPARISON: None FINDINGS: Lower chest: Normal. Liver: Normal attenuation. Enlarged at 21 cm craniocaudally. No focallesions. Bile ducts: Nondilated. Gallbladder: Decompressed. No calcified gallstones. Normal caliber wall. Pancreas: Normal attenuation without ductal dilatation. Spleen: Enlarged at 14 cm craniocaudally, contains a number of calcified granulomas. Adrenals: Normal. Kidneys: Normal. Urinary Bladder: Normal. Vasculature: No abdominal aortic aneurysm. Lymph Nodes: No enlarged lymph nodes. Bowel: Nondilated, no wall thickening. Peritoneum and retroperitoneum: Trace amount free fluid in the pelvis.No pneumoperitoneum. No loculated fluid collection or mesentericinflammation. Abdominal wall: Intact. Reproductive organs: Normal. Osseous structures: Degenerative spondylosis changes at L1-K6yttcjzpolwoivr disc space narrowing and vacuum disc phenomenon. No suspicious lesions. IMPRESSION 1. Hepatosplenomegaly. 2. Trace amount of pelvic ascites. 3. No abscess identified. Thank you for letting us participate in the care of this patient. If youare a health care provider and have any questions regarding this report,please contact the number below. For patients who have questions please contactthe health career discovery teacher that requested your imaging first. Electronically signed by: Keny Leos MD, [facility]([phone]), at 09/28/2023 10:41 AM Hari Alvarado MD IMG CT ORDERABLES documented in this encounter Visit Diagnoses Not on filedocumented in this encounter Care Teams Woodyard Operator Relationship Specialty Start Date End Date Milo Baer MD [address] [place] [address] [place] [address] PCP - [facility] Medicine 04/08/23 11/30/23 documented as of this encounter
--- OUTSIDE RECORDS SUMMARY | 2024-07-02 14:29 | XMS_ITS | Encounter Summary ---
Author Organization [facility] Address [facility] [place] [address] Care Team Providers Care U.S. Revenue Officer Name Role Phone Milo Baer MD Primary Care Provider [phone] Encounter Details Date Type Department Care Team (Latest Contact Info) Description 10/28/2023 Travel Social History Tobacco Use Types Packs/Day Years Used Date Smoking Tobacco: Every Day Cigarettes Smokeless Tobacco: Never Alcohol Use Standard Drinks/Week Comments Not Currently 0 (1 standard drink = 0.6 oz pur e alcohol) [facility] Utilities Answer Date Recorded In the [...] getting things needed for daily living? No 10/29/2023 Housing Stability Vital Sign Answer Mickey e Recorded In the last 12 months, was t here a time when you were not able to pay the mortgage or rent on time? No 10/29/2023 In the last 12 months, how many places have you lived? 1 10/29/2023 In the last 12 months, was t here a time when you did not have a steady place to sleep or slept in a mcc (including now)? No 10/29/2023 IPV Inpatient Questions Answer Date Recorded Does [...] 8:30 AM EST Office [place] [address] Denae Wilson MD [facility] [address] documented as of this encounter Visit Diagnoses Not on filedocumented in this encounter Care Teams U.S. Revenue Officer Relationship Specialty Start Date End Date Milo Baer MD [address] [place] [address] [place] [address] PCP - [facility] Medicine 04/08/23 11/30/23 documented as of this encounter
--- OUTSIDE RECORDS SUMMARY | 2024-07-02 14:30 | XMS_ITS | Encounter Summary ---
Author Organization [facility] [place] [address] Care Team Providers Care Med Dir Name Role Phone Kwadwo Mitchell MD Primary Care Provider Encounter Details Date Type Department Care Team (Late st Contact Info) Description 11/08/2014 Telephone Pediatrics at [address] [address] Jagjit Brown, RN Social History Tobacco Use Types Packs/Day Years Used Date Smoking Tobacco: Never Assessed Sex and Gender Information Value Date Recorded Sex Assigned at Not on file Gender Identity Not on file Sexual Orientation Not on file documented as of this encounter Miscellaneous Notes * Telephone Encounter - Jagjit Brown, RN - 11/08/2014 11:29 AM EDT Error. documented in this encounter Plan of Treatment Upcoming Encounters Date Type Department Care Team (Late st Contact Info) Description 08/01/2024 8:30 AM EST Office [place] [address] Denae Wilson MD [facility] [place] [address] documented as of this encounter Visit Diagnoses Not on filedocumented in this encounter Care Teams Med Dir Relationship Specialty Start Date End Date Kwadwo Mitchell MD [address] [place] [address] PCP - General 06/10/10 04/07/23 documented as of this encounter
--- OUTSIDE RECORDS SUMMARY | 2024-07-02 14:30 | XMS_ITS | Referral Summary ---
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 Name Role Phone Raffi Merida Primary Care Provider [phone] Encounters Date Type Department Care Team Description 2024 11:15 EST - 07/02/2024 12:43 EST Hospital Encounter [facility] [address], [place] [id number] Taj Parsons DO Riser, Elly Amalea, MD MPH Jodi, MD Nasreen Kaplan, Virginia Willis MD MPH Repp, MD Marvel Domingo Glenn, MD Discitis of thoracolumbar region (Primary Dx); Epidural abscess; MRSA bacteremia; Sepsis due to methicillin resistant Staphylococcus aureus (MRSA) without acute organ dysfunction (HCC-CMS); Acute pain; Opioid use disorder; Anxiety; Mood disorder (HCC-CMS); Iron deficiency anemia, unspecified iron deficiency anemia type; Chronic hepatitis C without hepatic coma (HCC-CMS); Type 2 diabetes mellitus with hyperglycemia, without long-term current use of insulin (HCC-CMS) Discharge Disposition: Short Term Hospital 05/29/2024 13:24 EST Anesthesia Event [facility] OR [address] [place] [address] Eloise Nassar MD Bontempo, Nicholas, AA 05/29/2024 13:00 EST - 05/29/2024 14:25 EST Surgery [facility] OR [address] [place] [address] Enedina Kirkland MD MARIBEL [[id number] (CPT??)] 05/25/2024 Travel 05/25/2024 21:56 EST - 05/25/2024 23:59 EST Hospital Encounter [facility] [place] Discharge Disposition: Home or Self Care 05/25/2024 21:56 EST - 05/25/2024 23:59 EST Hospital Encounter [facility] [place] Discharge Disposition: Home or Self Care 05/24/2024 Hospital Encounter [facility] [place] Discharge Disposition: Home or Self Care 05/24/2024 Hospital Encounter [facility] [place] Discharge Disposition: Home or Self Care 05/02/2024 Lab Requisition [facility] Pathology & Laboratory [address] [address] Outr Resulting Lab, Provider 05/01/2024 Lab Requisition [facility] [address] [address] Outr Resulting Lab, Provider 05/01/2024 Lab Requisition [facility] [address] [address] Outr Resulting Lab, Provider 05/01/2024 Lab Requisition [facility]ology Laboratory [address] [address] Outr Resulting Lab, Provider 05/01/2024 Lab Requisition [facility] Pathology Laboratory [address] [address] Outr Resulting Lab, Provider from Last 3 Months Allergies No known active allergies Medications acetaminophen (TYLENOL) 500 mg tablet Take 2 Tablets by mouth every 6 hours. 07/02/20 Active baclofen (LIORESAL) 10 mg tablet Take 1 Tablet by mouth 3 times daily. 07/02/20 Active bisacodyL (DULCOLAX) [address] 1 Suppository rectally daily as needed for Constipation. 07/02/20 24 Active enoxaparin (LOVENOX) 40 mg/0.4 mL injection Inject 40 mg into the skin daily. 12/15/20 24 Active gabapentin (NEURONTIN) 400 mg capsule Take 1 Capsule by mouth 3 times daily. 07/02/20 Active insulin aspart U-100 (NOVOLOG FLEXPEN) 100 unit/mL (3 mL) injectable pen Inject 0-11 Units into the skin 3 times daily with meals. 07/02/20 Active lactulose (CHRONULAC) 20 gram/30 mL solution Take 15 mL by mouth every 6 hours as needed for Pain. 07/02/20 Active LORazepam (ATIVAN) 1 mg tablet Take 1 Tablet by mouth 3 times daily. Daily Max: 3 mg 07/02/20 Active nicotine polacrilex (COMMIT) [address] 1 Lozenge inside cheek every hour as needed for Other. 07/02/20 Active pantoprazole (PROTONIX) 20 mg tablet Take 1 Tablet by mouth daily before breakfast. 07/02/20 Active polyethylene glycol 3350 (MIRALAX) 17 gram packet Take 17 g by mouth 2 times daily. 07/02/20 Active QUEtiapine (SEROQUEL) 100 mg tablet Take 1 Tablet by mouth at bedtime. 07/02/20 Active ramelteon (ROZEREM) 8 mg tablet Take 1 Tablet by mouth at bedtime as needed for Sleep. 07/02/20 Active senna (SENOKOT) 8.6 mg tablet Take 2 Tablets by mouth at bedtime. 07/02/20 Active simethicone (MYLICON) 80 mg chewable tablet Take 1 Tablet by mouth every 6 hours as needed for Flatulence. 07/02/20 Active buprenorphine-n aloxone (SUBOXONE) 8-2 mg tablet, sublingual Place 2 Tablets under the tongue daily AND 1 Tablet at bedtime. Daily Max: 3 Tablets. 07/02/20 Active metFORMIN (GLUCOPHAGE-XR) 500 mg ER tablet Take 1 Tablet by mouth 2 times daily. 07/02/20 Active ferrous gluconate (FERGON) 324 mg (38 mg iron) tablet Take 1 Tablet by mouth every Mon, Wed, Fri. 07/03/20 Active diclofenac sodium gel Apply 2 g topically 2 times daily as needed for Pain. 07/02/20 Active ketOROLAC (TORADOL) 30 mg/mL (1 mL) solution Inject 0.5 mL into the vein 2 times daily for 2 days. 07/02/20 Active naproxen (NAPROSYN) 500 mg tablet Take 1 Tablet by mouth 2 times daily with breakfast and dinner. 07/05/20 Active lidocaine 5 % (LIDODERM) 5 % patch Place 1 Patch onto the skin daily. 07/03/20 Active Multivitamins with Minerals tablet Take 1 Tab by mouth daily. Discontinued NAPROXEN SODIUM (ALEVE ORAL) Take by mouth. Discontinued methadone (DOLOPHINE) 10 mg tablet Take 80 mg by mouth daily. Discontinued Active Problems Problem Noted Date Diagnosed Date Mood disorder ([facility]) 06/27/2024 Type 2 diabetes mellitus wit h hyperglycemia, without long-term current use of insulin ([facility]) 06/27/2024 Iron deficiency anemia 06/13/2024 Chronic hepatitis C without hepatic coma ([facility]) 06/13/2024 Anxiety 06/09/2024 MRSA bacteremia 2024 Discitis of thoracolumbar region 2024 Epidural abscess 2024 Sepsis due to methicillin re sistant Staphylococcus aureus (MRSA) without acute organ dysfunction ([facility]) 2024 Acute pain 2024 Opioid use disorder 2024 Jaundice 02/02/2020 Right upper quadrant abdominal pain 02/02/2020 Acute hepatitis A 02/02/2020 Social History Tobacco Use Types Packs/Day Years Used Date Smoking Tobacco: Every Day Cigarettes 1 15 Smokeless Tobacco: Never Tobacco Cessation:Ready to Q uit: Not Asked; Counseling Given: Not Answered Alcohol Use Standard Drinks/Week Comments Never 0 (1 standard drink = 0.6 oz pur e alcohol) [facility] Utilities Answer Date Recorded In the past 12 months has [employer], gas, oil, or water company threatened to shut off services in your home? No 2024 AUDIT-C Answer Date Recorded Q1: How often do you have a drink containing alc ohol? Never 02/02/2020 Average Number of Drinks Not on file Frequency of Binge Drinking Not on file 01/16 PHQ-2 Answer Date Recorded PHQ-2 SUBTOTAL 0 02/02/2020 Hunger Vital Sign Answer Date Recorded Within the past 12 months, y ou worried that your food would run out before you got the money to buy more. Never true 05/26/20 24 Within the past 12 months, t he food you bought just didn't last and you didn't have money to get more. Never true 2024 PRAPARE - Transportation Answer Date Re corded In the past 12 months, has l ack of transportation kept you from medical appointments or from getting medications? No 02/2024 In the past 12 months, has l ack of transportation kept you from meetings, work, or from getting things needed for daily living? No 2024 Housing Stability Vital Sign Answer Mickey e Recorded In the last 12 months, was t here a time when you were not able to pay the mortgage or rent on time? No 2024 In the past 12 months, how m any times have you moved where you were living? 0 2024 At any time in the past 12 m [facility], were you homeless or living in a [place] health care facility (including now)? No 2024 AHC - Inadequate Housing Answer Date Re corded What is your living situation today? I have a [facility] place to live 05/30/2024 Housing Problems Not on file 05/30/2024 AHC - Transportation Answer Date Record ed In the past 12 months, has l ack of reliable transportation kept you from medical appointments, meetings, work or from getting things needed for daily living? No 05/30/2024 Interpersonal Safety Answer Date Record ed How often does anyone, inclu finesse family, hit, punch or physically hurt you? 2024 How often does anyone, inclu ding family, insult, scream, curse or threaten to hurt you? 2024 Sex and Gender Information Value Date Recorded Sex Assigned at Not on file Legal Sex Male 17:33 EST Gender Identity Male 05/31/2019 1:50 EST Sexual Orientation Not on file Last Filed Vital Signs Vital Sign Reading Time Taken Comments Blood Pressure 120/71 07/02/2024 0556 EST Pulse 68 07/02/2024 0556 EST Temperature 36.9 ??C (98.5 ??F) 07/02/2024 0556 EST Respiratory Rate 16 07/02/2024 0556 EST Oxygen Saturation 94% 07/02/2024 0556 EST Inhaled Oxygen Concentration - - Weight 87.4 kg (192 lb 9.6 oz) 06/03/[address] Height 175.3 cm (5' 9) 2024 1506 EST Body Mass Index 28.44 2024 1506 EST Functional Status * Are you deaf or do you have serious difficulty hearing? Answer Date of Assessment Author No 2024 18:52 Tristan Kramer RN * Are you blind or do you have serious difficulty seeing, even when wearing glasses? Answer Date of Assessment Author No 2024 18:52 Tristan Kramer RN * Do you have serious difficulty walking or climbing stairs? (5 years old or older) Answer Date of Assessment Author No 2024 18:52 Tristan Kramer RN * Do you have difficulty dressing or bathing? (5 years old or older) Answer Date of Assessment Author No 2024 18:52 Tristan Kramer RN * Because of a physical, mental, or emotional condition, do you have difficulty doing errands alone such as visiting a doctor's office or shopping? (15 years old or older) Answer Date of Assessment Author No 2024 18:52 Tristan Kramer RN Mental Status * Because of a physical, mental, or emotional condition, do you have serious difficulty concentrating, remembering, or making decisions? (5 years old or older) Answer Entry Date Author No 2024 18:52 Tristan Kramer RN Plan of Treatment Not on file Procedures Procedure Name Priority Date/Time Associated Diagnosis Comments POCT GLUCOSE, INTERFACED Routine 07/02/2024 7:31 EST POCT GLUCOSE, INTERFACED Routine 07/01/2024 21:55 EST POCT GLUCOSE, INTERFACED Routine 07/01/2024 18:41 EST POCT GLUCOSE, INTERFACED Routine 07/01/2024 11:34 EST POCT GLUCOSE, INTERFACED Routine 07/01/2024 8:56 EST POCT GLUCOSE, INTERFACED Routine 06/30/2024 21:46 EST POCT GLUCOSE, INTERFACED Routine 06/30/2024 19:14 EST POCT GLUCOSE, INTERFACED Routine 06/30/2024 12:27 EST POCT GLUCOSE, INTERFACED Routine 06/30/2024 7:53 EST POCT GLUCOSE, INTERFACED Routine 06/29/2024 19:23 EST POCT GLUCOSE, INTERFACED Routine 06/29/2024 12:25 EST COMPLETE BLOOD COUNT Routine 06/29/2024 10:26 EST POCT GLUCOSE, INTERFACED Routine 06/29/2024 10:20 EST BASIC METABOLIC PANEL (BMP) Routine 06/29/2024 6:25 EST HEPATIC FUNCTION PANEL (ALB,ALK PHOS,ALT,AST,DBIL,TOT STEPHANY,TOT PROT) Routine 06/29/2024 6:25 EST CK Routine 06/29/2024 6:25 EST POCT GLUCOSE, INTERFACED Routine 06/28/2024 21:12 EST POCT GLUCOSE, INTERFACED Routine 06/28/2024 19:15 EST POCT GLUCOSE, INTERFACED Routine 06/28/2024 12:41 EST POCT GLUCOSE, INTERFACED Routine 06/28/2024 8:42 EST POCT GLUCOSE, INTERFACED Routine 06/27/2024 20:28 EST POCT GLUCOSE, INTERFACED Routine 06/27/2024 15:29 EST POCT GLUCOSE, INTERFACED Routine 06/27/2024 13:19 EST POCT GLUCOSE, INTERFACED Routine 06/27/2024 10:42 EST POCT GLUCOSE, INTERFACED Routine 06/27/2024 3:59 EST POCT GLUCOSE, INTERFACED Routine 06/26/2024 23:00 EST POCT GLUCOSE, INTERFACED Routine 06/26/2024 21:00 EST POCT GLUCOSE, INTERFACED Routine 06/26/2024 16:05 EST POCT GLUCOSE, INTERFACED Routine 06/26/2024 10:41 EST BASIC METABOLIC PANEL (BMP) Routine 06/26/2024 4:54 EST COMPLETE BLOOD COUNT Routine 06/22/2024 10:20 EST BASIC METABOLIC PANEL (BMP) Routine 06/22/2024 10:20 EST HEPATIC FUNCTION PANEL (ALB,ALK PHOS,ALT,AST,DBIL,TOT STEPHANY,TOT PROT) Routine 06/22/2024 10:20 EST CK Routine 06/22/2024 10:20 EST BASIC METABOLIC PANEL (BMP) Routine 06/19/2024 3:09 EST C REACTIVE PROTEIN Routine 06/18/2024 11 :51 EST COMPLETE BLOOD COUNT Routine 06/18/2024 11:51 EST COMPREHENSIVE METABOLIC PANEL (CMP) Routine 06/18/2024 11:51 EST COMPLETE BLOOD COUNT Routine 06/15/2024 6:54 EST BASIC METABOLIC PANEL (BMP) Routine 06/15/2024 6:54 EST HEPATIC FUNCTION PANEL (ALB,ALK PHOS,ALT,AST,DBIL,TOT STEPHANY,TOT PROT) Routine 06/15/2024 6:54 EST CK Routine 06/15/2024 6:54 EST INSERT PICC LINE Routine 06/13/2024 19:0 4 EST BASIC METABOLIC PANEL (BMP) Routine 06/12/2024 6:11 EST CK Routine 06/11/2024 6:51 EST COMPLETE BLOOD COUNT Routine 06/11/2024 6:51 EST HEPATIC FUNCTION PANEL (ALB,ALK PHOS,ALT,AST,DBIL,TOT STEPHANY,TOT PROT) Routine 06/11/2024 6:51 EST BASIC METABOLIC PANEL (BMP) Routine 06/11/2024 6:51 EST COMPLETE BLOOD COUNT Routine 06/08/2024 16:37 EST BACTERIAL CULTURE, BLOOD Routine 06/08/2024 15:09 EST BASIC METABOLIC PANEL (BMP) Routine 06/08/2024 15:08 EST HEPATIC FUNCTION PANEL (ALB,ALK PHOS,ALT,AST,DBIL,TOT STEPHANY,TOT PROT) Routine 06/08/2024 15:08 EST CK Routine 06/08/2024 15:08 EST BACTERIAL CULTURE, BLOOD Routine 06/08/2024 7:[address] ABDOMEN PELVIS W CONTRAST Routine 06/05/2024 13:17 EST COMPLETE BLOOD COUNT Routine 06/05/2024 9:41 EST BASIC METABOLIC PANEL (BMP) Routine 06/05/2024 9:41 EST BACTERIAL CULTURE, BLOOD Routine 06/05/2024 9:41 EST BACTERIAL CULTURE, BLOOD Routine 06/05/2024 9:41 EST ECG REPORT - SCANNED 06/05/2024 8:24 EST BACTERIAL CULTURE, BLOOD Routine 06/04/2024 11:44 EST BACTERIAL CULTURE, BLOOD Routine 06/04/2024 11:44 EST MR THORACIC SPINE W WO CONTRAST Routine 06/03/2024 21:13 EST BACTERIAL CULTURE, BLOOD Routine 06/03/2024 8:29 EST BASIC METABOLIC PANEL (BMP) Routine 06/03/2024 8:28 EST COMPLETE BLOOD COUNT Routine 06/03/2024 8:28 EST BACTERIAL CULTURE, BLOOD Routine 06/03/2024 8:28 EST HEPATIC FUNCTION PANEL (ALB,ALK PHOS,ALT,AST,DBIL,TOT STEPHANY,TOT PROT) Routine 06/01/2024 8:00 EST CK Routine 06/01/2024 8:00 EST BACTERIAL CULTURE, BLOOD Routine 06/01/2024 8:00 EST BACTERIAL CULTURE, BLOOD Routine 06/01/2024 8:00 EST FERRITIN Add-On 05/31/2024 8:13 EST TRANSFERRIN SATURATION Add-On 8:13 EST PROFILE IRON STUDIES (INCLUDES IRON, IBC, AND FERRITIN) Add-On 05/31/2024 8:13 EST BASIC METABOLIC PANEL (BMP) Routine 05/31/2024 8:13 EST MAGNESIUM Routine 05/31/2024 8:13 EST COMPLETE BLOOD COUNT Routine 05/31/2024 8:13 EST BACTERIAL CULTURE, BLOOD Routine 05/30/2024 14:10 EST BACTERIAL CULTURE, BLOOD Routine 05/30/2024 14:05 EST FERRITIN Add-On 05/30/2024 7:34 EST TRANSFERRIN SATURATION Add-On 7:34 EST PROFILE IRON STUDIES (INCLUDES IRON, IBC, AND FERRITIN) Add-On 05/30/2024 7:34 EST BASIC METABOLIC PANEL (BMP) Routine 05/30/2024 7:34 EST MAGNESIUM Routine 05/30/2024 7:34 EST COMPLETE BLOOD COUNT Routine 05/30/2024 7:34 EST MARIBEL 05/29/2024 21:00 EST MRSA bacteremia TRANSESOPHAGEAL ECHO (MARIBEL) COMPLETE NO CONTRAST STAT 05/29/2024 14:00 EST BACTERIAL CULTURE, BLOOD STAT 05/29/2024 12:17 EST BASIC METABOLIC PANEL (BMP) Routine 05/29/2024 12:16 EST MAGNESIUM Routine 05/29/2024 12:16 EST COMPLETE BLOOD COUNT Routine 05/29/2024 12:16 EST BACTERIAL CULTURE, BLOOD STAT 05/29/2024 12:16 EST HIV 1 RNA QUANTITATION Routine 13:26 EST XR ENTIRE SPINE 2-3 VIEWS Routine 05/28/2024 8:[address] ABDOMEN PELVIS W CONTRAST Routine 05/28/2024 8:[address] CHEST W CONTRAST Routine 05/28/2024 8 :33 EST HEPATIC FUNCTION PANEL (ALB,ALK PHOS,ALT,AST,DBIL,TOT STEPHANY,TOT PROT) Add-On 05/28/2024 6:54 EST CK Add-On 05/28/2024 6:54 EST BASIC METABOLIC PANEL (BMP) Routine 05/28/2024 6:54 EST MAGNESIUM Routine 05/28/2024 6:54 EST COMPLETE BLOOD COUNT Routine 05/28/2024 6:54 EST BACTERIAL CULTURE, BLOOD Routine 05/27/2024 22:58 EST BACTERIAL CULTURE, BLOOD Routine 05/27/2024 22:04 EST EKG 12-LEAD Routine 05/27/2024 8:31 EST HEMOGLOBIN A1C Add-On 05/27/2024 7:23 EST HN LAB CBC SMEAR REVIEW Today 05/27/20 7:23 EST BASIC METABOLIC PANEL (BMP) Routine 05/27/2024 7:23 EST MAGNESIUM Routine 05/27/2024 7:23 EST COMPLETE BLOOD COUNT Routine 05/27/2024 7:23 EST TRANSTHORACIC ECHO (TTE) COMPLETE Routine 2024 15:45 EST BACTERIAL CULTURE, BLOOD STAT 2024 14:34 EST BACTERIAL CULTURE, BLOOD STAT 2024 14:33 EST COMPREHENSIVE METABOLIC PANEL (CMP) STAT 2024 14:32 EST PROCALCITONIN Routine 2024 14:32 EST SED RATE Routine 2024 14:32 EST C REACTIVE PROTEIN STAT 2024 14 :32 EST COMPLETE BLOOD COUNT AND DIFFERENTIAL STAT 2024 14:32 EST POCT US ED GUIDANCE PIV 05/26/20 24 13:05 EST POCT US ED GUIDANCE PIV 05/26/20 24 13:05 EST MR OUTSIDE IMAGES CERVICAL SPINE Routine 05/25/2024 21:[address] OUTSIDE IMAGES HEAD Routine 21:[address] OUTSIDE IMAGES ABDOMEN PELVIS STAT 05/24/2024 9:24 EST XR OUTSIDE IMAGES CHEST STAT 05/24/20 24 9:23 EST QUANTIFERON INTERPRETATION (PERFORMABLE) Today 05/01/2024 12:15 EDT HCV RNA DETECT QUANT Today 05/01/2024 12:15 EDT HEPATITIS A ANTIBODY IGM Today 05/01/2024 12:15 EDT QUANTIFERON MITOGEN (PERFORMABLE) Today 05/01/2024 12:15 EDT QUANTIFERON TB2 (PERFORMABLE) Today 05/01/2024 12:15 EDT QUANTIFERON TB1 (PERFORMABLE) Today 05/01/2024 12:15 EDT QUANTIFERON NIL (PERFORMABLE) Today 05/01/2024 12:15 EDT QUANTIFERON TB GOLD PLUS Routine 05/01/2024 12:15 EDT HOLD SST Today 05/01/2024 12:15 EDT HIV 1/2 ANTIGEN AND ANTIBODY, 4TH GENERATION Routine 05/01/2024 12:15 EDT HEPATITIS B SURFACE ANTIBODY Today 05/01/2024 12:15 EDT HEPATITIS B CORE ANTIBODY (TOTAL) Today 05/01/2024 12:15 EDT HEPATITIS B SURFACE ANTIGEN Today 05/01/2024 12:15 EDT HEPATITIS C AB W REFLEX TO HCV RNA BY PCR Today 05/01/2024 12:15 EDT HEPATITIS A TOTAL ANTIBODY W REFLEX Today 05/01/2024 12:15 EDT SYPHILIS SEROLOGY Routine 05/01/2024 12: 15 EDT CHLAMYDIA/N. GONORRHOEAE AMPLIFIED NUCLEIC ACID Routine 05/01/2024 12:15 EDT from Last 3 Months Results * (ABNORMAL) POCT GLUCOSE, INTERFACED (07/02/2024 7:31 EST) Only the most recent of25 resultswithin the time period is included. Glucose, POC 132(H) 70 - 100 mg/dL 07/02/2024 7:33 EST [facility] HN LAB POC COMMENT (GLUCOSE) Test Performed by Nursing Services 07/02/2024 7:33 EST [facility] Blood CAPILLARY BLOOD / Unknown 07/02/2024 7:31 EST 07/02/2024 7:33 EST us Virginia Downey MD MPH POINT OF CARE TEST ORD ERABLES Final Result [facility] [address], [place] [id number] * (ABNORMAL) COMPLETE BLOOD COUNT (06/29/2024 10:26 EST) Only the most recent of13 resultswithin the time period is included. WBC 4.56 4.00 - 10.40 K/cmm 06/29/2024 11:02 [facility] RBC 3.99(L) 4.36 - 5.78 M/cmm 06/29/2024 11:02 [facility] Hemoglobin 10.9(L) 13.8 - 17.3 g/dL 06/29/2024 11:02 [facility] HCT 32.0(L) 39.5 - 50.2 % 06/29/2024 11:02 [facility] MCV 80(L) 81 - 95 fL 06/29/2024 11:02 [facility] MCH 27.3(L) 27.6 - 33.0 pg 06/29/2024 11:02 [facility] MCHC 34.1 32.8 - 36.4 g/dL 06/29/2024 11:02 [facility] RDW-CV 15.6(H) <14.2 % 06/29/2024 11:02 [facility] RDW-SD 44.3 <46.0 fl 06/29/2024 11:02 [facility] PLT 222 141 - 377 K/cmm 06/29/2024 11:02 [facility] MPV 9.2(L) 9.5 - 12.7 fL 06/29/2024 11:02 [facility] Blood BLOOD SAMPLE TAKEN FROM CENTRAL LINE / Unknown Venipuncture / Unknown 06/29/2024 10:26 EST 06/29/2024 10:48 EST Meaghan Zapata MD HEMATOLOGY & PF4 ORDER MENDEZ Final Result Performing Organization Address City/[facility]/ZIP Co de Phone Number [facility] [address] [place] [address] * CK (06/29/2024 6:25 EST) Only the most recent of7 resultswithin the time period is included. Pathologist [facility] CK 50 <=250 U/L 06/29/2024 7:24 [facility] Blood BLOOD SAMPLE TAKEN FROM CENTRAL LINE / Unknown PICC Line Draw / Unknown 06/29/2024 6:25 EST 06/29/2024 6:31 EST Meaghan Zapata MD CHEMISTRY & BLOOD GAS ORDERABLES Final Result Performing Organization Address [facility] de Phone Number [facility] [address] [place] [id number] * (ABNORMAL) HEPATIC FUNCTION PANEL (ALB,ALK PHOS,ALT,AST,DBIL,TOT STEPHANY,TOT PROT) (06/29/2024 6:25 EST) Only the most recent of7 resultswithin the time period is included. Pathologist [facility] Total Protein 7.7 6.3 - 8.2 g/dL 06/29/2024 7:24 [facility] Albumin 3.6 3.4 - 4.9 g/dL 06/29/2024 7:24 [facility] Bilirubin, Total <0.5 <1.4 mg/dL 06/29/20 7:24 [facility] Conjugated Bilirubin 0.0 <=0.3 mg/dL 06/29/2024 7:24 [facility] Unconjugated Bilirubin 0.2 <=1.1 mg/dL 06/29/2024 7:24 [facility] Alkaline Phosphatase 87 38 - 126 U/L 06/29/2024 7:24 [facility] ALT 53(H) <50 U/L 06/29/2024 7:24 [facility] AST 41 15 - 46 U/L 06/29/2024 7:24 [facility] Calculated Total Bilirubin 0.2 <1.4 mg/dL 06/29/2024 7:24 [facility] Blood BLOOD SAMPLE TAKEN FROM CENTRAL LINE / Unknown PICC Line Draw / Unknown 06/29/2024 6:25 EST 06/29/2024 6:31 EST us Meaghan Zapata MD CHEMISTRY & BLOOD GAS ORDERABLES Final Result [facility] [address] [place] [address] * (ABNORMAL) BASIC METABOLIC PANEL (BMP) (06/29/2024 6:25 EST) Only the most recent of15 resultswithin the time period is included. Sodium 139 136 - 145 mmol/L 06/29/2024 7:24 [facility] Potassium 4.6 3.5 - 5.0 mmol/L 06/29/2024 7:24 [facility] Chloride 104 96 - 110 mmol/L 06/29/2024 7:24 [facility] CO2 Total 26 22 - 32 mmol/L 06/29/2024 7:24 [facility] Anion Gap 9 5 - 14 mmol/L 06/29/2024 7:24 [facility] Glucose 220(H) 70 - 99 mg/dl 06/29/2024 7:24 [facility] Calcium 9.3 8.5 - 10.5 mg/dL 06/29/2024 7:24 [facility] BUN 26 10 - 26 mg/dL 06/29/2024 7:24 [facility] Creatinine 0.92 0.66 - 1.25 mg/dL 06/29/2024 7:24 [facility] eGFR 105 >60 mL/min/1.73 m2 06/29/2024 7:24 [facility] Blood BLOOD SAMPLE TAKEN FROM CENTRAL LINE / Unknown PICC Line Draw / Unknown 06/29/2024 6:25 EST 06/29/2024 6:31 EST Virginia Downey MD MPH CHEMISTRY & BLOOD GAS ORDERABLES Final Result Performing Organization Address [facility]/ZIP Co de Phone Number [facility] [address], [place] [phone] * (ABNORMAL) C REACTIVE PROTEIN (06/18/2024 11:51 EST) Only the most recent of2 resultswithin the time period is included. C-Reactive Protein 33.4(H) <10.0 mg/L 06/18/2024 12:35 [facility] Blood VENOUS BLOOD / Unknown Venipuncture / Unknown 06/18/2024 11:51 EST 06/18/2024 12:09 EST Johan Campos MD CHEMISTRY & BLOOD GAS ORDERABLES Final Result Performing Organization Address [facility] Co de Phone Number [facility] [address], [place] [id number] * (ABNORMAL) COMPREHENSIVE METABOLIC PANEL (CMP) (06/18/2024 11:51 EST) Only the most recent of2 resultswithin the time period is included. Sodium 137 136 - 145 mmol/L 06/18/2024 12:35 [facility] Potassium 4.1 3.5 - 5.0 mmol/L 06/18/2024 12:35 [facility] Chloride 106 96 - 110 mmol/L 06/18/2024 12:35 [facility] CO2 Total 24 22 - 32 mmol/L 06/18/2024 12:35 [facility] Glucose 164(H) 70 - 99 mg/dl 06/18/2024 12:35 [facility] BUN 14 10 - 26 mg/dL 06/18/2024 12:35 [facility] Creatinine 0.73 0.66 - 1.25 mg/dL 06/18/2024 12:35 [facility] eGFR 115 >60 mL/min/1.7 3m2 06/18/2024 12:35 [facility] Total Protein 7.5 6.3 - 8.2 g/dL 06/18/2024 12:35 [facility] Albumin 3.6 3.4 - 4.9 g/dL 06/18/2024 12:35 [facility] Alkaline Phosphatase 78 38 - 126 U/L 06/18/2024 12:35 [facility] AST 25 15 - 46 U/L 06/18/2024 12:35 [facility] ALT 28 <50 U/L 06/18/2024 12:35 [facility] Bilirubin, Total <0.5 <1.4 mg/dL 06/18/20 12:35 [facility] Calcium 9.4 8.5 - 10.5 mg/dL 06/18/2024 12:35 [facility] Albumin/Globulin Ratio 0.9(L) 1.0 - 2.5 06/18/2024 12:35 [facility] Anion Gap 7 5 - 14 mmol/L 06/18/2024 12:35 [facility] Blood VENOUS BLOOD / Unknown Venipuncture / Unknown 06/18/2024 11:51 EST 06/18/2024 12:09 EST Johan Campos MD CHEMISTRY & BLOOD GAS ORDERABLES Final Result [facility] [address], [place] [id number] * INSERT PICC LINE (06/13/2024 19:04 EST) Narrative Jabari Esteves, DAVID - 06/13/2024 19:04 EST Jabari Esteves, RN ? 06/13/2024 19:05 Central Catheter Insertion First Catheter This Session ?graining operator: Patient Location: [id number] Preliminary Data: Insertion Date: 06/13/24 Insertion Time: 1827 First Regenerator Operator: Jabari Esteves RN/MA Documenting Procedure: tamara chandler Pre-procedure: Time Out / Final Moment Performed: Yes Hand Hygiene Immediately Prior To Procedure: Yes Site Disinfected-2% Chlorhex/70% Alcohol: Yes Procedure Site Completely Dry: Yes Entire Patient Draped in Sterile Fashion: Yes Intra-procedure: Sterile Gloves Used: Yes Cap, Mask, and Sterile Gown - Operators: Yes Sterile Field Maintained: Yes Cap and Mask Worn - All Personnel: Yes Post-procedure: Sterile Dressing Applied - Sterile Technique: Yes Dressing Dated And Timed: Yes Needle Passes: VA RN Makes 2 Or Fewer Needle Passes: 2 or fewer passes ?Physician Documentation Pre-Procedure: Procedure To Be Performed: New central line placement Indication: New indication (antibiotics) Line Priority: Routine Tip Confirmation: 3CG Consent Obtained: Yes The patient and/or family have been provided education/training to minimize the risk of central line-associated bloodstream infections. Central Line Type: Central Catheter Type: PICC PICC Type: Solo PICC Central Line Details: Line Location: Right;Basilic Final Tip Location: Superior Vena Cava (lower SVC with 3CG) Line Lumens (#): Single Central Line Size: 4 Fr Line Coating: Non-antimicrobial coated Vessel Size: 4 mm (0.43cm) Vein Depth (cm): ??(0.62cm) Line Trim Length: 43 cm Line External Length: 1 cm Line Securement Device: Statlock device Catheter Secured At (cm):: ??(1cm) Responsible Service / IR Details: Responsible Service: ABDON HERNANDEZ Lidocaine 1% - Route/Dose (cc's): Intradermal;1 Central Line Materials and Methods: Number of Attempts: 1 Number of Sites Attempted: 1 Number of Kits Used: 1 Location Device Used: Sherlock;Ultrasound;3CG Central Line Operators: Number Of Operators: 1 First Regenerator Operator's Name: Jabari Esteves RN First Regenerator Operator's Title: [facility] Unless otherwise noted, there were no complications, no blood loss and no cultures obtained. JABARI ESTEVES RN ?? 06/13/2024 ?? 19:05 us Johan Campos MD IV THERAPY ORDERABLES Final Resu lt * BACTERIAL CULTURE, BLOOD (06/08/2024 15:09 EST) Only the most recent of18 resultswithin the time period is included. Organism ID No Growth at 5 days 06/13/2024 16:01 EST [facility] Blood VENOUS BLOOD / Unknown Venipuncture / Unknown 06/08/2024 15:09 EST 06/08/2024 15:57 EST Narrative [facility] - 06/13/2024 16:01 EST Volume of blood collected may not be adequate for detection of bacteremia/septicemia. us Virginia Downey MD MPH MICROBIOLOGY - GENERAL ORDERABLES Final Result [facility] [address] [place] [address] * CT ABDOMEN PELVIS W CONTRAST (06/05/2024 13:17 EST) Anatomical Region Laterality Modality Body, Abdomen, Pelvis, Abdomen and Pelvis Computed Tomography 06/05/2024 14:0 2 EST Impressions 06/05/2024 14:02 EST 1. ??Findings of discitis/osteomyelitis of the T10-T11 disc as well as the right 11th costovertebral junction. Please see the same day MRI of the thoracic spine for further evaluation. 2. ??No bowel inflammation or organizing fluid collection within the abdomen or pelvis. I have personally reviewed the images and the above interpretation and agree with the findings. [id number] Narrative 06/05/2024 14:[address] ABDOMEN PELVIS W CONTRAST ??06/05/2024 12:55 PM Signs and Symptoms/Comments: Persistent MRSA bacteremia, abdominal bloating/pain; Intra-abdominal abscess; Persistent MRSA bacteremia, abdominal bloating/pain Technique: CT of the abdomen and pelvis was performed following the administration of intravenous contrast. This CT used either dose modulation and/or iterative reconstruction techniques to lower radiation dose. Comparison: CT abdomen pelvis 05/28/2024, CT chest 05/28/2024 Findings: Lower chest: Dependent atelectasis, improved from prior. Liver: No focal liver lesion. Gallbladder: Distended gallbladder without focal wall thickening, pericholecystic fluid or fat stranding. No calcified stones. Bile ducts: No intrahepatic ductal dilatation. Stable caliber of the extrahepatic bile duct measuring up to 7 mm. Spleen: Calcified granulomas in the spleen. Pancreas: No pancreatic lesion. No ductal dilatation. Adrenal glands: No adrenal lesion. Kidneys, ureters, bladder: Symmetric bilateral enhancement of the kidneys. No hydroureteronephrosis. No urinary tract calculi. The bladder is decompressed. Reproductive organs: Unremarkable. Bowel: No obstruction or acute inflammation. The appendix is unremarkable. Peritoneal cavity: No free fluid or air. No organizing fluid collections. Lymph nodes: No lymphadenopathy. Vascular: Nonaneurysmal abdominal aorta. Major abdominal vasculature is patent. Abdominal wall: No bowel-containing hernia. Musculoskeletal: No acute fracture. Redemonstrated limbus body anterior superior L3 endplate. Worse from prior exam are cortical lucencies at the T10-11 endplate with osseous destruction of the head of the right 11th rib, findings concerning for discitis osteomyelitis with costovertebral involvement. In the paraspinal soft tissues adjacent to this level there is fatty stranding without discrete fluid collection. Increased soft tissue density seen within the spinal canal with mild to moderate spinal stenosis. Fuel Operator: No additional finding. Resulting Agency Comment [id number] Procedure Note Trupti Alvarez MD - 06/05/2024 CT ABDOMEN PELVIS W CONTRAST 06/05/2024 12:55 PM Signs and Symptoms/Comments: Persistent MRSA bacteremia, abdominalbloating/pain; Intra-abdominal abscess; Persistent MRSA bacteremia,abdominal bloating/pain Technique: CT of the abdomen and pelvis was performed following theadministration of intravenous contrast. This CT used either dose modulation and/or iterative reconstructiontechniques to lower radiation dose. Comparison: CT abdomen pelvis 05/28/2024, CT chest 05/28/2024 Findings: Lower chest: Dependent atelectasis, improved from prior. Liver: No focal liver lesion. Gallbladder: Distended gallbladder without focal wall thickening,pericholecystic fluid or fat stranding. No calcified stones. Bile ducts: No intrahepatic ductal dilatation. Stable caliber of theextrahepatic bile duct measuring up to 7 mm. Spleen: Calcified granulomas in the spleen. Pancreas: No pancreatic lesion. No ductal dilatation. Adrenal glands: No adrenal lesion. Kidneys, ureters, bladder: Symmetric bilateral enhancement of the kidneys.No hydroureteronephrosis. No urinary tract calculi. The bladder isdecompressed. Reproductive organs: Unremarkable. Bowel: No obstruction or acute inflammation. The appendix isunremarkable. Peritoneal cavity: No free fluid or air. No organizing fluidcollections. Lymph nodes: No lymphadenopathy. Vascular: Nonaneurysmal abdominal aorta. Major abdominal vasculature ispatent. Abdominal wall: No bowel-containing hernia. Musculoskeletal: No acute fracture. Redemonstrated limbus body anteriorsuperior L3 endplate. Worse from prior exam are cortical lucencies at [id number] endplate with osseous destruction of the head of the right 11thrib, findings concerning for discitis osteomyelitis with costovertebralinvolvement. In the paraspinal soft tissues adjacent to this level thereis fatty stranding without discrete fluid collection. Increased softtissue density seen within the spinal canal with mild to moderate spinalstenosis. Fuel Operator: No additional finding. IMPRESSION 1. 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 Please see the same day MRI of thethoracic spine for further evaluation. 2. No bowel inflammation or organizing fluid collection within theabdomen or pelvis. I have personally reviewed the images and the above interpretation andagree with the findings. [id number] Virginia Downey MD MPH IMG CT ORDERABLES Tia l Result * ECG REPORT - SCANNED (06/05/2024 8:24 EST) 06/05/2024 8:24 EST us Scan 2 Cigar Making Supervisor PROCEDURE/MINOR SURGICAL OR DERABLES Final Result * MR THORACIC SPINE W WO CONTRAST (06/03/2024 21:13 EST) Anatomical Region Laterality Modality Spine Magnetic Resonan ce 06/04/2024 11:1 5 EST Impressions 06/04/2024 11:15 EST 1. 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 2. Phlegmonous changes posterior to the T10 and T11 levels cause severe spinal canal stenosis with slight compression of the cord, though there is no cord edema identified. No evidence of epidural abscess. 3. Prevertebral and paraspinal phlegmonous enhancement is present at the T10-T11 level, without evidence of prevertebral or paraspinal abscess. There is osteomyelitis of the adjacent right 11th rib. [id number] Narrative 06/04/2024 11:15 EST EXAM: MRI THORACIC SPINE WO/W CONTRAST HISTORY: Thoracic ostimylities; Thoracic ostimylities TECHNIQUE: MRI of the thoracic spine without and with intravenous gadolinium contrast. Structured report code: [id number] COMPARISON: Chest CT May 28, 2024. FINDINGS: SURGICAL CHANGES: None. ALIGNMENT: Normal. BONES: No significant vertebral body height loss. Diffuse edema and enhancement throughout the T10 and T11 vertebral bodies. Loss of endplate definition of the inferior endplate of T10 and superior endplate of T11 on the T1-weighted sequence. Findings are compatible with discitis osteomyelitis. Bone marrow signal abnormality in the right 11th rib, likely also involved by osteomyelitis. INTERVERTEBRAL DISCS: Fluid signal within the T10-11 disc along with mild disc height loss. SPINAL CANAL AND SPINAL CORD: Homogeneous enhancement posterior to the T10 and T11 vertebral bodies represents phlegmonous changes from the adjacent discitis osteomyelitis. No areas of hypoenhancement to suggest the presence of epidural abscess. The epidural phlegmonous changes cause severe spinal canal stenosis with slight flattening of the cord, though no cord signal abnormality is present. NEURAL FORAMINA: Phlegmonous changes are present within bilateral T10-11 and T11-12 neural foramina. VISIBLE EXTRASPINAL SOFT TISSUES: Extensive paraspinal and prevertebral enhancement at the T10 and T11 levels, slightly asymmetric to the right. The enhancement surrounds the medial right 12th rib 11th rib where there is bone marrow signal abnormality. Resulting Agency Comment [id number] Procedure Note Spenser Warner MD - 06/04/2024 EXAM: MRI THORACIC SPINE WO/W CONTRAST HISTORY: Thoracic ostimylities; Thoracic ostimylities TECHNIQUE: MRI of the thoracic spine without and with intravenousgadolinium contrast. Structured report code: [id number] COMPARISON: Chest CT May 28, 2024. FINDINGS: SURGICAL CHANGES: None. ALIGNMENT: Normal. BONES: No significant vertebral body height loss. Diffuse edema and enhancementthroughout the T10 and T11 vertebral bodies. Loss of endplate definitionof the inferior endplate of T10 and superior endplate of T11 on theT1-weighted sequence. Findings are compatible with discitis osteomyelitis.Bone marrow signal abnormality in the right 11th rib, likely also involvedby osteomyelitis. INTERVERTEBRAL DISCS: Fluid signal within the T10-11 disc along with mild disc height loss. SPINAL CANAL AND SPINAL CORD: Homogeneous enhancement posterior to the T10 and T11 vertebral bodiesrepresents phlegmonous changes from the adjacent discitis osteomyelitis.No areas of hypoenhancement to suggest the presence of epidural abscess.The epidural phlegmonous changes cause severe spinal canal stenosis withslight flattening of the cord, though no cord signal abnormality ispresent. NEURAL FORAMINA: Phlegmonous changes are present within bilateral T10-11 and T11-12 neuralforamina. VISIBLE EXTRASPINAL SOFT TISSUES: Extensive paraspinal and prevertebral enhancement at the T10 and [id number], slightly asymmetric to the right. The enhancement surrounds themedial right 12th rib 11th rib where there is bone marrow signalabnormality. IMPRESSION 1. 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 2. Phlegmonous changes posterior to the T10 and T11 levels cause severespinal canal stenosis with slight compression of the cord, though there isno cord edema identified. No evidence of epidural abscess. 3. Prevertebral and paraspinal phlegmonous enhancement is present at [id number] level, without evidence of prevertebral or paraspinal abscess.There is osteomyelitis of the adjacent right 11th rib. [id number] us Virginia Downey MD MPH IMG MRI ORDERABLES Fin al Result * (ABNORMAL) TRANSFERRIN SATURATION (05/31/2024 8:13 EST) Only the most recent of2 resultswithin the time period is included. Iron 39(L) 49 - 181 ??g/dL 05/31/2024 12:07 [facility] Iron Binding Capacity 276 240 - 450 ??g/dL 05/31/2024 12:07 [facility] Transferrin Saturation 14(L) 15 - 45 % 05/31/2024 12:07 [facility] Blood VENOUS BLOOD / Unknown Venipuncture / Unknown 05/31/2024 8:13 EST 05/31/2024 8:52 EST Maeghan Zapata MD CHEMISTRY & BLOOD GAS ORDERABLES Final Result Performing Organization Address [facility] Co de Phone Number [facility] [address] [place] [address] * MAGNESIUM (05/31/2024 8:13 EST) Only the most recent of5 resultswithin the time period is included. Magnesium 2.2 1.7 - 2.8 mg/dL 05/31/2024 9:23 EST [facility] Blood VENOUS BLOOD / Unknown Venipuncture / Unknown 05/31/2024 8:13 EST 05/31/2024 8:52 EST us Taj Parsons DO CHEMISTRY & BLOOD GAS ORDERABLES Final Result Performing Organization Address [facility] Co de Phone Number [facility] [address] [place] [address] * FERRITIN (05/31/2024 8:13 EST) Only the most recent of2 resultswithin the time period is included. Ferritin 137 22 - 322 ng/mL 05/31/2024 13:14 EST [facility] Blood VENOUS BLOOD / Unknown Venipuncture / Unknown 05/31/2024 8:13 EST 05/31/2024 8:52 EST us Meaghan Zapata MD CHEMISTRY & BLOOD GAS ORDERABLES Final Result Performing Organization Address City/[facility]/ZIP Co de Phone Number [facility] [address] [place] [address] * TRANSESOPHAGEAL ECHO (MARIBEL) COMPLETE NO CONTRAST (05/29/2024 14:00 EST) Anatomical Region Laterality Modality Ultrasound Narrative 05/29/2024 15:04 EST ?Left??Ventricle: The left ventricular cavity was normal in size. Left ventricular systolic function was normal with an ejection fraction of 55-60% by visual estimation. ?Right??Ventricle: The right ventricular cavity was mildly dilated in size. Right ventricular systolic function was normal by visual estimation. ?Left??Atrium: The left atrial appendage was well visualized. There was no thrombus in the left atrial appendage. 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 There was a small PFO visualized by color Doppler. Additionally there appears to be a small secundum ASD with left to right shunting visualized by color Doppler. ?Right??Atrium: Right atrial cavity was dilated. ?No evidence of valvular vegetation. Left Ventricle The left ventricular cavity was normal in size. Left ventricular systolic function was normal with an ejection fraction of 55-60% by visual estimation. Right Ventricle The right ventricular cavity was mildly dilated in size. Right ventricular systolic function was normal by visual estimation. Left Atrium The left atrial appendage was well visualized. There was no thrombus in the left atrial appendage. 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 There was a small PFO visualized by color Doppler. Additionally there appears to be a small secundum ASD with left to right shunting visualized by color Doppler. Right Atrium Right atrial cavity was dilated. Mitral Valve Mitral valve structure was normal. There was mild mitral regurgitation with a centrally directed jet. There was no mitral valve vegetation visualized. Tricuspid Valve No vegetation present on the tricuspid valve. There was mild to moderate tricuspid valve regurgitation with a centrally directed jet. Aortic Valve The aortic valve structure was trileaflet. There was mild leaflet thickening. There was no evidence of a valvular vegetation. There was no aortic valve regurgitation. Pulmonic Valve The pulmonic valve was not well visualized. There was no significant pulmonic valve regurgitation. Ascending Aorta There was no plaque in the visualized portion of the descending aorta. Pericardium There was no pericardial effusion. Study Details This study was interpreted by [facility]. Pertinent images and digital data are archived for permanent storage and are available for subsequent review. During the study the esophageal view was captured. The probe was inserted by the auto mechanic supervisor. Images were obtained using cardiac ultrasound machine EPIQ #21. There was minimal probe insertion difficulty. Patient was given consious sedation. Image quality was good. The transesophageal probe was removed. Study completion: The patient tolerated the procedure well. No blood loss or specimens removed during the procedure. There were no complications. Martha Syed MD MPH CARDIAC ECHO ORDERABLES Final Result * HIV 1 RNA QUANTITATION (05/28/2024 13:26 EST) HIV RNA Detection, Qual Undetected Undetected copies/mL 05/29/2024 12:31 EST [facility] Blood VENOUS BLOOD / Unknown Venipuncture / Unknown 05/28/2024 13:26 EST 05/28/2024 13:32 EST Narrative [facility] - 05/29/2024 12:31 EST The quantification range of this assay is 20 IU/mL to 10,000,000 IU/mL. ??Testing was performed using the Daniella HIV test ([employer] with the daniella Citizen.VC0 System. Martha Syed MD MPH CHEMISTRY & BLOOD GAS O RDERABLES Final Result [facility] [address] [place] [id number] * XR ENTIRE SPINE 2-3 VIEWS (05/28/2024 8:42 EST) Anatomical Region Laterality Modality Spine Computed Radiogr aphy 05/28/2024 12:1 7 EST Impressions 05/28/2024 12:17 EST No significant malalignment evident. [id number] Narrative 05/28/2024 12:17 EST XR ENTIRE SPINE 2-3 VIEWS05/28/2024 8:41 AM SIGNS & SYMPTOMS / COMMENTS: multifocal osteodiscitis COMPARISON: CT abdomen/pelvis 05/24/2024. Subsequent chest and abdomen/pelvis CTs same day TECHNIQUE: Upright frontal and lateral radiographs of the entire spine FINDINGS: No gross malalignment is seen on upright imaging. Disc space narrowing is present at L1-L2 and L2-L3. Contrast is present within the renal collecting systems related to recent CT scan. Small pleural effusions are evident. Resulting Agency Comment [id number] Procedure Note Moe Martin MD - 05/28/2024 XR ENTIRE SPINE 2-3 VIEWS05/28/2024 8:41 AM SIGNS & SYMPTOMS / COMMENTS: multifocal osteodiscitis COMPARISON: CT abdomen/pelvis 05/24/2024. Subsequent chest andabdomen/pelvis CTs same day TECHNIQUE: Upright frontal and lateral radiographs of the entire spine FINDINGS: No gross malalignment is seen on upright imaging. Disc space narrowing ispresent at L1-L2 and L2-L3. Contrast is present within the renalcollecting systems related to recent CT scan. Small pleural effusions areevident. IMPRESSION No significant malalignment evident. [id number] us Martha Syed MD MPH IMG DIAGNOSTIC IMAGING ORDERABLES Final Result * CT CHEST W CONTRAST (05/28/2024 8:33 EST) Anatomical Region Laterality Modality Chest Computed Tomogra phy 05/28/2024 12:1 4 EST Impressions 05/28/2024 12:14 EST Trace bilateral pleural effusions with associated passive atelectasis. [id number] Narrative 05/28/2024 12:[address] CHEST W CONTRAST ??05/28/2024 8:20 AM Clinical History/Comments: Concern for embolic phenomena.; Concern for embolic phenomena. Technique: CT scan of the chest with intravenous contrast material was performed. This CT used either dose modulation and/or iterative reconstruction techniques to lower radiation dose. Comparison: CT chest 02/02/2020 Findings: Lower neck: Normal. Mediastinum and eli (non-vascular): No enlarged mediastinal or hilar lymph nodes. Calcified right hilar lymph nodes likely related to prior granulomatous disease. The esophagus appears normal. Cardiovascular: ??No abnormalities. Lungs and airways: Bibasilar passive atelectasis. Calcified granuloma in the right lung. Pleura: Trace bilateral pleural effusions. Upper abdomen (limited to upper abdomen, not optimized for abdominal imaging): For findings in the upper abdomen, please see the separate CT abdomen and pelvis report performed on the same date. Chest wall soft tissues: Symmetric gynecomastia Bones: No significant abnormalities in the bones. ?? Resulting Agency Comment [id number] Procedure Note Trupti Alvarez MD - 05/28/2024 CT CHEST W CONTRAST 05/28/2024 8:20 AM Clinical History/Comments: Concern for embolic phenomena.; Concern for embolic phenomena. Technique: CT scan of the chest with intravenous contrast material was performed. This CT used either dose modulation and/or iterative reconstructiontechniques to lower radiation dose. Comparison: CT chest 02/02/2020 Findings: Lower neck: Normal. Mediastinum and eli (non-vascular): No enlarged mediastinal or hilarlymph nodes. Calcified right hilar lymph nodes likely related to priorgranulomatous disease. The esophagus appears normal. Cardiovascular: No abnormalities. Lungs and airways: Bibasilar passive atelectasis. Calcified granuloma inthe right lung. Pleura: Trace bilateral pleural effusions. Upper abdomen (limited to upper abdomen, not optimized for abdominalimaging): For findings in the upper abdomen, please see the separate CTabdomen and pelvis report performed on the same date. Chest wall soft tissues: Symmetric gynecomastia Bones: No significant abnormalities in the bones. IMPRESSION Trace bilateral pleural effusions with associated passive atelectasis. [id number] us Martha Syed MD MPH IMG CT ORDERABLES Final Result * CT ABDOMEN PELVIS W CONTRAST (05/28/2024 8:33 EST) Anatomical Region Laterality Modality Body, Abdomen, Pelvis, Abdomen and Pelvis Computed Tomography 05/28/2024 12:1 0 EST Impressions 05/28/2024 12:10 EST 1. No embolic findings. Normal enhancement of the kidneys and spleen. 2. Splenomegaly. 3. Mild extrahepatic biliary dilation measuring up to 7 mm. Correlate with LFTs. [id number] Narrative 05/28/2024 12:[address] ABDOMEN PELVIS W CONTRAST ??05/28/2024 8:20 AM Signs and Symptoms/Comments: Concern for embolic phenomena.; Concern for embolic phenomena. Technique: CT of the abdomen and pelvis was performed following the administration of intravenous contrast. This CT used either dose modulation and/or iterative reconstruction techniques to lower radiation dose. Comparison: CT abdomen pelvis 05/24/2024 Findings: Lower chest: For findings in the lung bases, please see the separate CT chest report performed on the same date. Liver: Normal Gallbladder: Unremarkable Bile ducts: Common bile duct measures 7 mm, borderline dilated Spleen: Few small calcified granulomas. Splenomegaly measuring up to 16 cm. Normal enhancement. Pancreas: Normal. Adrenal glands: Normal Kidneys, ureters, bladder: Normal enhancement of the kidneys. No focal lesion or hydronephrosis. Urinary bladder is unremarkable. Reproductive organs: Unremarkable Bowel: Normal appendix. No bowel obstruction. No acute inflammatory change. Peritoneal cavity: No free air or free fluid. Lymph nodes: No lymphadenopathy Vascular: Major vascular structures are patent. Normal caliber abdominal aorta without calcifications. Abdominal wall: No bowel-containing hernia Musculoskeletal: No acute or aggressive osseous abnormality. Limbus vertebral body at L3. Fuel Operator: No additional finding Resulting Agency Comment [id number] Procedure Note Trupti Alvarez MD - 05/28/2024 CT ABDOMEN PELVIS W CONTRAST 05/28/2024 8:20 AM Signs and Symptoms/Comments: Concern for embolic phenomena.; Concern forembolic phenomena. Technique: CT of the abdomen and pelvis was performed following theadministration of intravenous contrast. This CT used either dose modulation and/or iterative reconstructiontechniques to lower radiation dose. Comparison: CT abdomen pelvis 05/24/2024 Findings: Lower chest: For findings in the lung bases, please see the separate CTchest report performed on the same date. Liver: Normal Gallbladder: Unremarkable Bile ducts: Common bile duct measures 7 mm, borderline dilated Spleen: Few small calcified granulomas. Splenomegaly measuring up to 16cm. Normal enhancement. Pancreas: Normal. Adrenal glands: Normal Kidneys, ureters, bladder: Normal enhancement of the kidneys. No focallesion or hydronephrosis. Urinary bladder is unremarkable. Reproductive organs: Unremarkable Bowel: Normal appendix. No bowel obstruction. No acute inflammatorychange. Peritoneal cavity: No free air or free fluid. Lymph nodes: No lymphadenopathy Vascular: Major vascular structures are patent. Normal caliber abdominalaorta without calcifications. Abdominal wall: No bowel-containing hernia Musculoskeletal: No acute or aggressive osseous abnormality. Limbusvertebral body at L3. Fuel Operator: No additional finding IMPRESSION 1. No embolic findings. Normal enhancement of the kidneys and spleen. 2. Splenomegaly. 3. Mild extrahepatic biliary dilation measuring up to 7 mm. Correlate withLFTs. [id number] us Martha Syed MD MPH IM CT ORDERABLES Final Result * EKG 12-LEAD (05/27/2024 8:31 EST) 05/27/2024 8:31 EST Narrative [facility] EKG - 06/05/2024 8:18 EST ? [facility] ? Test Date: ?2024-05-27 Pat Name: ? MARCOS CAMEJO ?Department: ?? [place] [address] ? Room: ? [id number] Gender: ? Male ? 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 [id number] : ?1980 ? Requested By: MARCI MENDOZA Order Number: [id number] ? Dinorah PEREZ: ?? MARGOTH GEORGE MD ? Measurements Intervals ?[place] ? Rate: ? 66 ? P: ?34 IN: ? 166 ?QRS: ?53 QRSD: ? 106 ?T: ?45 QT: ? 403 ? QTc: ?422 ? Interpretive Statements SINUS RHYTHM WITH SINUS ARRHYTHMIA Compared to ECG 02/02/2020 00:14:58 Sinus tachycardia no longer present I reviewed the tracing and have either agreed or edited the findings in this report. Electronically Signed On 06-05-2024 08:18:09 EST by MARGOTH GEORGE MD. 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 Electronically Signed On 06-05-2024 08:18:09 EST by MARGOTH MARIN. Martha Syed MD MPH CARDIAC ECG ORDERABLES Final Result Performing Organization Address [facility]/ZIP Co de Phone Number [facility] EKG * HN LAB CBC SMEAR REVIEW (05/27/2024 7:23 EST) Differential Comment Slide was examined by a technologist to verify the WBC and/or platelet count. 05/27/2024 8:12 EST [facility] Blood VENOUS BLOOD / Unknown Venipuncture / Unknown 05/27/2024 7:23 EST 05/27/2024 7:35 EST Taj Parsons DO HEMATOLOGY & PF4 ORDERABLES Tia l Result Performing Organization Address [facility] de Phone Number [facility] [address] [place] [address] * (ABNORMAL) HEMOGLOBIN A1C (05/27/2024 7:23 EST) Hemoglobin A1c 6.2(H) <5.7 % 05/28/2024 8:23 EST [facility] Comment: Glycemic Status References: Normal: ??<5.7% Pre-Diabetes: ??5.7% - 6.4% Diagnostic of Diabetes: ??> or = 6.5% (if confirmed) Est Avg Glucose 131 mg/dL 8:23 EST [facility] Comment:The eAG represents t he A1c result expressed as average glucose in mg/dL. Blood VENOUS BLOOD / Unknown Venipuncture / Unknown 05/27/2024 7:23 EST 05/27/2024 7:35 EST Martha Syed MD MPH CHEMISTRY & BLOOD GAS O RDERABLES Final Result Performing Organization Address [facility] Co de Phone Number [facility] [address] [place] [address] * TRANSTHORACIC ECHO (TTE) COMPLETE W/DOPPLER W/CF NO CONTRAST (2024 15:45 EST) [facility] Signature Triscuspid Valve Regurgitation Peak Gradient 19 mmHg [facility] Mitral deceleration time 271 ms [facility] LV Diastolic Volume 92 mL [facility] LV Systolic Volume 47 mL [facility] Mitral A-wave peak velocity 0.8 m/s [facility] Mitral E-wave peak velocity 0.9 m/s [facility] Mitral peak gradient, D 3 mmHg [facility] Stroke volume (SV), LVOT DP 51 ml [facility] LVOT VTI, S 18.1 cm [facility] PO INT [facility] CARE LVOT peak velocity, S 1.0 m/s [facility] LVOT area 2.8 cm2 [facility] T [facility] LVOT ID, S 1.9 cm [facility] POI NT OF CARE LV IVRT, DP 74 msec [facility] PO INT OF CARE AV LVOT peak gradient 4 mmHg [facility] TR Peak Jas 2.2 m/s [facility] PO INT OF CARE LVOT mean gradient, S 3 mmHg [facility] LV ejection fraction, 1-p A4C 47 % [facility] LV ejection fraction, 1-p A2C 56 % [facility] Aortic root ID 2.9 cm [facility] Ascending aorta ID, a-p 3.2 cm [facility] EF 52 % [facility] LV ID, ES, PLAX 3.4 2.1 - 4.0 cm [facility] LV PW thickness, ED, PLAX 1.1 0.6 - 1.1 cm [facility] LV ID, ED, PLAX 4.5 3.5 - 6.0 cm [facility] LV E/e', lateral 21.2 [facility] LA volume/bsa, ES, BP 23.0 ml/m2 [facility] LA volume/bsa, ES, A4C 26.0 ml/m2 [facility] LA volumes, ES, A4C 54.0 ml [facility] Pulmonic valve mean velocity, S 1 cm/s [facility] LA ID/bsa, A-P 2.0 cm/m2 [facility] LA ID, A-P, ES 4.1 cm [facility] LV end-diastolic volume, 1-p A4C 171 ml [facility] LV end diastolic volume 1-p A2C 179 ml [facility] Stroke index (SV/bsa) LVOT DP 25.0 ml/m2 [facility] LA/aortic root ratio 1.41 [facility] LV E/e', lateral 4.4 [facility] LV E/e', medial 6.4 [facility] LV e', lateral 21.20 cm/s [facility] LV e', medial 14.60 cm/s [facility] LVOT mean velocity, S 0.8 m/s [facility] IVS thickness, ED, PLAX 1.1 cm [facility] LV E/e', average 5 [facility] Anatomical Region Laterality Modality Ultrasound Narrative 2024 16:35 EST ?Left??Ventricle: The left ventricular cavity was normal in size. Left ventricular systolic function was low normal with an ejection fraction of 50-55%. Left ventricular diastolic parameters were normal. Left ventricular wall thickness was at the upper limits of normal. Left ventricular wall motion was normal; there were no regional wall motion abnormalities. Global longitudinal strain was normal. ?Right??Ventricle: The right ventricular cavity was normal in size. Right ventricular systolic function was normal. Normal tricuspid annular plane systolic excursion (TAPSE) >1.7 cm. ?Mitral??Valve: There was mild mitral regurgitation. ?No obvious vegetation visualized on this study. Consider MARIBEL for further evaluation if clinical suspicion of endocarditis remains high. Left Ventricle The left ventricular cavity was normal in size. Left ventricular systolic function was low normal with an ejection fraction of 50-55%. Left ventricular diastolic parameters were normal. Left ventricular wall thickness was at the upper limits of normal. Left ventricular wall motion was normal; there were no regional wall motion abnormalities. Global longitudinal strain was normal. Right Ventricle The right ventricular cavity was normal in size. Right ventricular systolic function was normal. Normal tricuspid annular plane systolic excursion (TAPSE) >1.7 cm. Left Atrium The left atrium was normal in size. No patent foramen ovale visualized by color Doppler. Right Atrium The right atrium was grossly normal in size. IVC/SVC The inferior vena cava was normal in size. The inferior vena cava demonstrated a diameter of <=21 mm and collapses >50%; therefore, the right atrial pressure is estimated at 0-5 mmHg. Mitral Valve Mitral valve structure was normal. There was mild mitral regurgitation. There was no significant mitral valve stenosis. Tricuspid Valve The tricuspid valve was not well visualized. There was trace tricuspid valve regurgitation. There was no tricuspid valve stenosis. Aortic Valve The aortic valve structure was trileaflet. There was no aortic valve stenosis. There was no aortic valve regurgitation. Pulmonic Valve The pulmonic valve was not well visualized. There was no significant pulmonic valve regurgitation. There was no pulmonic valve stenosis. Ascending Aorta The aortic root was normal in size. The proximal ascending aorta was normal in size. Pericardium There was no significant pericardial effusion. Pulmonic Artery Pulmonary systolic pressure was within the normal range. Study Details Study status: Routine. Transthoracic echocardiography. M-Mode, complete 2D, complete spectral Doppler, and color Doppler.The study was interpreted by [facility]. Pertinent images and digital data are archived for permanent storage and are available for subsequent review. Scanning was performed from the apical, parasternal, subcostal and suprasternal acoustic windows. Overall the study quality was adequate. The study was difficult due to patient clinical status. Images were obtained using cardiac ultrasound machine EPIQ #10. Supine us Taj S Parsons DO CARDIAC ECHO ORDERABLES Final Re sult * PROCALCITONIN (2024 14:32 EST) Procalcitonin 0.30 See Note ng/mL 2024 16:02 EST [facility] Comment: NOTE: Reference Range: <0.5 ng/mL - Low risk of severe sepsis >2.0 ng/mL - High risk of severe sepsis Blood VENOUS BLOOD / Unknown Venipuncture / Unknown 2024 14:32 EST 2024 14:42 EST Taj Parsons DO CHEMISTRY & BLOOD GAS ORDERABLES Final Result Performing Organization Address [facility]/ZIP Co de Phone Number [facility] [address] [place] [address] * (ABNORMAL) SED RATE (2024 14:32 EST) Sed Rate 61(H) 0 - 15 mm/hr 2024 15:41 [facility] Blood VENOUS BLOOD / Unknown Venipuncture / Unknown 2024 14:32 EST 2024 14:42 EST Taj Parsons HEMATOLOGY & PF4 ORDERABLES Tia l Result Performing Organization Address [facility] Co de Phone Number [facility] [address] [place] [address] * (ABNORMAL) COMPLETE BLOOD COUNT AND DIFFERENTIAL (2024 14:32 EST) WBC 6.66 4.00 - 10.40 K/cmm 2024 15:01 [facility] RBC 4.27(L) 4.36 - 5.78 M/cmm 2024 15:01 [facility] Hemoglobin 11.7(L) 13.8 - 17.3 g/dL 2024 15:01 [facility] HCT 34.3(L) 39.5 - 50.2 % 2024 15:01 [facility] MCV 80(L) 81 - 95 fL 2024 15:01 [facility] MCH 27.4(L) 27.6 - 33.0 pg 2024 15:01 [facility] MCHC 34.1 32.8 - 36.4 g/dL 2024 15:01 [facility] RDW-CV 15.9(H) <14.2 % 2024 15:01 [facility] RDW-SD 46.5(H) <46.0 fl 2024 15:01 [facility] PLT 277 141 - 377 K/cmm 2024 15:01 [facility] MPV 10.1 9.5 - 12.7 fL 2024 15:01 [facility] % Neutrophils 60.1 Not Indicated % 2024 15:01 [facility] % Lymphocytes 29.9 Not Indicated % 2024 15:01 [facility] % Monocytes 7.7 Not Indicated % 2024 15:01 [facility] % Eosinophils 1.4 Not Indicated % 2024 15:01 [facility] % Basophils 0.3 Not Indicated % 2024 15:01 [facility] % Immature Grans 0.6 Not Indicated % 2024 15:01 [facility] Absolute Neutrophils 4.01 2.20 - 8.85 K/cmm 2024 15:01 [facility] Absolute Lymphocytes 1.99 1.09 - 3.30 K/cmm 2024 15:01 [facility] Absolute Monocytes 0.51 0.10 - 0.80 K/cmm 2024 15:01 [facility] Absolute Eosinophils 0.09 0.03 - 0.61 K/cmm 2024 15:01 [facility] ABS Basophils 0.02 0.01 - 0.11 K/cmm 2024 15:01 [facility] Absolute Immature Grans 0.04 0.00 - 0.06 K/cmm 2024 15:01 [facility] Type of Differential: Auto 2024 15:01 EST [facility] Blood VENOUS BLOOD / Unknown Venipuncture / Unknown 2024 14:32 EST 2024 14:42 EST us Taj Parsons DO PACKAGES & DNA PROBE ORDERABLES Final Result [facility] [address] [place] [address] * POCT US ED GUIDANCE PIV (2024 13:05 EST) Anatomical Region Laterality Modality Other 2024 13:0 5 EST Narrative 2024 20:14 EST Study Date and Time: 2024 13:05 Study Author: Raffi Bruce Proc Guidance - PIV - POCUS UVN: Indication(s): ?PIV was performed under US guidance for the following indication(s):: Evaluation for a potential access site and selected vessel patency, Failed or difficult IV access ?Other Indications:: N/A Location of Views Obtained & Images Saved: ?Laterality:: Right ?Site of peripheral line:: Superficial antecubital/forearm vein ?Other site:: N/A PIV Complications: ?Select all that apply:: None ?Other Complications:: N/A Interpretation: ?Exam interpretation:: Successful PIV insertion ?Other interpretation:: N/A Confirmation of PIV Placement: ?Select all that apply:: IV patency confirmed by flushing without resistance or tissue infiltration, POCUS visualization of catheter in lumen, POCUS visualization of agitated saline flush in lumen ?Comments: N/A Signed by Raffi Bruce on 2024 14:46 Physician Attestation: ?I am credentialed in US-guided PIV placement and have reviewed and independently interpreted these images. I agree with or have edited the findings as documented. Final Signature by Cynthia Calhonu on 2024 20:14 Procedure Note Cynthia Calhoun - 2024 Study Date and Time: 2024 13:05 Study Author: Raffi Langley Guidance - PIV - POCUS UVN: Indication(s): PIV was performed under US guidance for the following indication(s)::Evaluation for a potential access site and selected vessel patency, Failedor difficult IV access Other Indications:: N/A Location of Views Obtained & Images Saved: Laterality:: Right Site of peripheral line:: Superficial antecubital/forearm vein Other site:: N/A PIV Complications: Select all that apply:: None Other Complications:: N/A Interpretation: Exam interpretation:: Successful PIV insertion Other interpretation:: N/A Confirmation of PIV Placement: Select all that apply:: IV patency confirmed by flushing withoutresistance or tissue infiltration, POCUS visualization of catheter inlumen, POCUS visualization of agitated saline flush in lumen Comments: N/A Signed by Raffi Bruce on 2024 14:46 Physician Attestation: I am credentialed in US-guided PIV placement and have reviewed andindependently interpreted these images. I agree with or have edited thefindings as documented. Final Signature by Cynthia Calhoun on 2024 20:14 us Raffi Bruce IMG POCT US ORDERABLES Final Res ult * POCT US ED GUIDANCE PIV (2024 13:05 EST) Anatomical Region Laterality Modality Other 2024 13:0 5 EST Narrative 2024 20:11 EST Study Date and Time: 2024 13:05 Study Author: Raffi Bruce Proc Guidance - PIV - POCUS UVN: Indication(s): ?PIV was performed under US guidance for the following indication(s):: Evaluation for a potential access site and selected vessel patency, Failed or difficult IV access ?Other Indications:: N/A Location of Views Obtained & Images Saved: ?Laterality:: Right ?Site of peripheral line:: Superficial antecubital/forearm vein ?Other site:: N/A PIV Complications: ?Select all that apply:: None ?Other Complications:: N/A Interpretation: ?Exam interpretation:: Successful PIV insertion ?Other interpretation:: N/A Confirmation of PIV Placement: ?Select all that apply:: IV patency confirmed by flushing without resistance or tissue infiltration, POCUS visualization of catheter in lumen, POCUS visualization of agitated saline flush in lumen ?Comments: N/A Signed by Raffi Bruce on 2024 14:46 Physician Attestation: ?I am credentialed in US-guided PIV placement and have reviewed and independently interpreted these images. I agree with or have edited the findings as documented. Final Signature by Cynthia Calhoun on 2024 20:11 Procedure Note Cynthia Calhoun - 2024 Study Date and Time: 2024 13:05 Study Author: Raffi Bruce Proc Guidance - PIV - POCUS UVN: Indication(s): PIV was performed under US guidance for the following indication(s)::Evaluation for a potential access site and selected vessel patency, Failedor difficult IV access Other Indications:: N/A Location of Views Obtained & Images Saved: Laterality:: Right Site of peripheral line:: Superficial antecubital/forearm vein Other site:: N/A PIV Complications: Select all that apply:: None Other Complications:: N/A Interpretation: Exam interpretation:: Successful PIV insertion Other interpretation:: N/A Confirmation of PIV Placement: Select all that apply:: IV patency confirmed by flushing withoutresistance or tissue infiltration, POCUS visualization of catheter inlumen, POCUS visualization of agitated saline flush in lumen Comments: N/A Signed by Raffi Bruce on 2024 14:46 Physician Attestation: I am credentialed in US-guided PIV placement and have reviewed andindependently interpreted these images. I agree with or have edited thefindings as documented. Final Signature by Cynthia Calhoun on 2024 20:11 us Raffi Bruce IMG POCT US ORDERABLES Final Res ult * MR OUTSIDE IMAGES CERVICAL SPINE (05/25/2024 21:57 EST) Narrative 05/25/2024 21:57 EST This is a non-reportable exam. us Provider Unknown MD IMG OTHER IMAGING ORDERABLES Final Result * CT OUTSIDE IMAGES HEAD (05/25/2024 21:57 EST) Narrative 05/25/2024 21:57 EST This is a non-reportable exam. us Provider Unknown MD IMG OTHER IMAGING ORDERABLES Final Result * CT OUTSIDE IMAGES ABDOMEN PELVIS (05/24/2024 9:24 EST) Narrative 2024 9:24 EST This is a non-reportable exam. us External Imaging IMG OTHER IMAGING ORDERABLES Fi nal Result * XR OUTSIDE IMAGES CHEST (05/24/2024 9:23 EST) Narrative 2024 9:23 EST This is a non-reportable exam. us External Imaging IMG OTHER IMAGING ORDERABLES Fi nal Result * QUANTIFERON MITOGEN (PERFORMABLE) (05/01/2024 12:15 EDT) Blood VENOUS BLOOD / Unknown 05/01/2024 12:15 EDT 05/02/2024 17:14 EDT us Provider Outr Resulting Lab IMMUNOLOGY AND SEROL OGY ORDERABLES Final Result Performing Organization Address City/[facility]/ZIP Co de Phone Number [facility] [address] [place] [id number] * QUANTIFERON TB2 (PERFORMABLE) (05/01/2024 12:15 EDT) Blood VENOUS BLOOD / Unknown 05/01/2024 12:15 EDT 05/02/2024 17:14 EDT us Provider Outr Resulting Lab IMMUNOLOGY AND SEROL OGY ORDERABLES Final Result Performing Organization Address City/[facility]/ZIP Co de Phone Number [facility] [address] [place] [address] * QUANTIFERON TB1 (PERFORMABLE) (05/01/2024 12:15 EDT) Blood VENOUS BLOOD / Unknown 05/01/2024 12:15 EDT 05/02/2024 17:14 EDT us Provider Outr Resulting Lab IMMUNOLOGY AND SEROL OGY ORDERABLES Final Result Performing Organization Address [facility]/ZIP Co de Phone Number [facility] [address] [place] [id number] * QUANTIFERON NIL (PERFORMABLE) (05/01/2024 12:15 EDT) Blood VENOUS BLOOD / Unknown 05/01/2024 12:15 EDT 05/02/2024 17:14 EDT us Provider Outr Resulting Lab IMMUNOLOGY AND SEROL OGY ORDERABLES Final Result Performing Organization Address [facility] Co de Phone Number [facility] [address] [place] [phone] * QUANTIFERON INTERPRETATION (PERFORMABLE) (05/01/2024 12:15 EDT) [facility] Quantiferon Interpretation Negative Negative 05/03/2024 13:26 EDT [facility] Comment:No interferon-gamma response to M. tuberculosis antigens was detected. ??Infection with M. tuberculosis is unlikely. A single negative result does not exclude infection with M. tuberculosis. ??In patients at high risk for M. tuberculosis infection, a second test should be considered. TB1 Ag minus Nil 0.19 IU/ml 05/03/20 24 13:26 EDT [facility] TB2 Ag minus Nil 0.08 IU/mL 05/03/20 24 13:26 EDT [facility] Blood VENOUS BLOOD / Unknown 05/01/2024 12:15 EDT 05/03/2024 13:25 EDT us Provider Outr Resulting Lab IMMUNOLOGY AND SEROL OGY ORDERABLES Final Result Performing Organization Address [facility] Co de Phone Number [facility] [address] [place] [phone] * (ABNORMAL) HCV RNA DETECT QUANT (05/01/2024 12:15 EDT) [facility] HCV RNA Qualitative Detected( A) Undetected 05/03/2024 11:46 EDT [facility] HCV RNA Quantitative 474,000(H ) Undetected IU/mL 05/03/2024 11:46 EDT [facility] Blood VENOUS BLOOD / Unknown 05/01/2024 12:15 EDT 05/01/2024 21:21 EDT Narrative [facility] - 05/03/2024 11:46 EDT The quantification range of this assay is 15 IU/mL to 100,000,000 IU/mL. Testing was performed using the Daniella HCV test ([employer] with the daniella Citizen[employer]VC0 System. us Provider Outr Resulting Lab CHEMISTRY & BLOOD GA S ORDERABLES Final Result [facility] [address] [place] [id number] * HOLD SST (05/01/2024 12:15 EDT) [facility] Hold Hold 05/01/2024 22:30 EDT [facility] Blood VENOUS BLOOD / Unknown 05/01/2024 12:15 EDT 05/01/2024 21:21 EDT us Provider Outr Resulting Lab LAB INFO SERVICE AND SUPPORT & PHONE RESULT Final Result [facility] [address] [place] [id number] * SYPHILIS SEROLOGY (05/01/2024 12:15 EDT) [facility] Syphilis Serology Negative Negative 05/02/2024 10:48 EDT [facility] Blood VENOUS BLOOD / Unknown 05/01/2024 12:15 EDT 05/01/2024 21:23 EDT us Provider Outr Resulting Lab IMMUNOLOGY AND SEROL OGY ORDERABLES Final Result Performing Organization Address City/[facility]/ZIP Co de Phone Number [facility] [address] [place] [address] * CHLAMYDIA/N. GONORRHOEAE AMPLIFIED NUCLEIC ACID (05/01/2024 12:15 EDT) Neisseria gonorrhoeae Result Negative Negative 05/02/2024 12:10 EDT [facility] Chlamydia trachomatis Result Negative Negative 05/02/2024 12:10 EDT [facility] Urine URINE / Unknown 05/01/2024 1 2:15 EDT 05/01/2024 22:12 EDT us Provider Outr Resulting Lab MICROBIOLOGY - GENER AL ORDERABLES Final Result Performing Organization Address [facility] Co de Phone Number [facility] [address] [place] [address] * (ABNORMAL) HEPATITIS C AB W REFLEX TO HCV RNA BY PCR (05/01/2024 12:15 EDT) Pathologist [facility] Hep C Antibody Reactive(A ) Negative 05/02/2024 12:03 EDT [facility] Comment: Supplemental testing for HCV RNA is ordered to rule out active HCV infection. Blood VENOUS BLOOD / Unknown 05/01/2024 12:15 EDT 05/01/2024 21:21 EDT us Provider Outr Resulting Lab CHEMISTRY & BLOOD GA S ORDERABLES Final Result Performing Organization Address City/[facility]/ZIP Co de Phone Number [facility] [address], [place] [id number] * HEPATITIS A ANTIBODY IGM (05/01/2024 12:15 EDT) Hepatitis A Antibody, IgM Negative Negative 05/02/2024 13:13 EDT [facility] Blood VENOUS BLOOD / Unknown 05/01/2024 12:15 EDT 05/01/2024 21:21 EDT Narrative [facility] - 05/02/2024 13:13 EDT The results of this assay can be falsely lowered due to the consumption of Biotin. us Provider Outr Resulting Lab CHEMISTRY & BLOOD GA S ORDERABLES Final Result Performing Organization Address [facility]/ZIP Co de Phone Number [facility] [address] [place] [address] * (ABNORMAL) HEPATITIS A TOTAL ANTIBODY W REFLEX (05/01/2024 12:15 EDT) Hepatitis A Antibody, Total Positive(A ) Negative 05/02/2024 12:03 EDT [facility] Blood VENOUS BLOOD / Unknown 05/01/2024 12:15 EDT 05/01/2024 21:21 EDT Narrative [facility] - 05/02/2024 12:03 EDT The result of this assay can be falsely elevated (Positive) due to the consumption of Biotin. us Provider Outr Resulting Lab CHEMISTRY & BLOOD GA S ORDERABLES Final Result Performing Organization Address [facility] Co de Phone Number [facility] [address] [place] [phone] * HEPATITIS B CORE ANTIBODY (TOTAL) (05/01/2024 12:15 EDT) Hepatitis B Core Ab, Total Negative Negative 05/02/2024 10:19 EDT [facility] Blood VENOUS BLOOD / Unknown 05/01/2024 12:15 EDT 05/01/2024 21:21 EDT us Provider Outr Resulting Lab CHEMISTRY & BLOOD GA S ORDERABLES Final Result Performing Organization Address City/[facility]/ZIP Co de Phone Number [facility] [address], [place] [id number] * HEPATITIS B SURFACE ANTIBODY (05/01/2024 12:15 EDT) Hep B Surface Ab, Quantitative 58.0 See Note mIU/mL 05/02/2024 9:39 EDT [facility] Comment: Reference Range for Hep B Surface Ab, Quant: Positive: >= 10.0 mIU/mL Negative: ??< 10.0 mIU/mL Patient is presumed to be immune to infection with Hepatitis B Virus. Hep B Surface Ab, Qualitative Positive See Note 05/02/2024 9:39 EDT [facility] Comment: Reference Range for Hep B Surface Ab, Qual: Unvaccinated: ??Negative Vaccinated: ??Positive Blood VENOUS BLOOD / Unknown 05/01/2024 12:15 EDT 05/01/2024 21:21 EDT us Provider Outr Resulting Lab CHEMISTRY & BLOOD GA S ORDERABLES Final Result Performing Organization Address City/[facility]/ZIP Co de Phone Number [facility] [address] [place] [address] * HEPATITIS B SURFACE ANTIGEN (05/01/2024 12:15 EDT) Pathologist [facility] Hep B Surface Ag Negative Negative 05/02/2024 9:45 EDT [facility] Blood VENOUS BLOOD / Unknown 05/01/2024 12:15 EDT 05/01/2024 21:21 EDT us Provider Outr Resulting Lab CHEMISTRY & BLOOD GA S ORDERABLES Final Result [facility] [address] [place], [place] [phone] * HIV 1/2 ANTIGEN AND ANTIBODY, 4TH GENERATION (05/01/2024 12:15 EDT) Pathologist [facility] HIV 1 and 2 Antibody/p24 Antigen, 4th Generation Negative Negative 05/02/2024 10:29 EDT [facility] Comment:If acute HIV-1 infec tion is suspected in a high risk patient, submit plasma specimen for HIV-1 RNA quantitation test. Blood VENOUS BLOOD / Unknown 05/01/2024 12:15 EDT 05/01/2024 22:02 EDT Narrative [facility] - 05/02/2024 10:29 EDT Fourth Generation assay performed on the Siemens Centaur XPT. us Provider Outr Resulting Lab IMMUNOLOGY AND SEROL OGY ORDERABLES Final Result [facility] [address] [place] [address] from Last 3 Months Additional Health Concerns Infection Onset Date Last Indicated MRSA Comment:05/24/2024 +MRSA blood cultures [facility] Pos blood 05/26/24, 05/27/24, 05/29/24, 05/30/24, 06/01/24, 06/03/24, 06/04/24, 06/05/24 - Radha Greenberg 06/08/2024 2024 06/05/2024 Insurance MEDICA[place] [facility] [place] Address: [address] [address] MEDICA[place] Advance Directives For more information, please contact: [phone] * Full Code (Latest Code Status on File) Date Activated Date Inactivated Comments 2024 14:21 Question Answer Comments When the patient has NO PULSE: Full Code / CPR Who Made the Decision? Patient * Full Code Date Activated Date Inactivated Comments 02/02/2020 23:37 02/03/2020 13:56 Question Answer Comments Reason for decision includes: Full code requested by fully informed patient Who participated in the discussion? Patient Care Teams Baling [employer] Operator Relationship Specialty Start Date End Date Raffi Merida DO [address] [place] [phone] PCP - General Family Medicine - Primary Care 05/26/24
--- OUTSIDE RECORDS SUMMARY | 2024-07-02 14:30 | XMS_ITS | Clinical Summary ---
Author Organization [facility] Address [address] [place] [address] Care Team Providers Care Admissions Director Name Role Phone Raffi Merida DO Primary Care Provider [phone] Allergies No known active allergies Medications acetaminophen (TYLENOL) 500 mg tablet Take 2 Tablets by mouth every 6 hours. 07/02/20 Active baclofen (LIORESAL) 10 mg tablet Take 1 Tablet by mouth 3 times daily. 07/02/20 Active bisacodyL (DULCOLAX) [address] 1 Suppository rectally daily as needed for Constipation. 07/02/20 Active enoxaparin (LOVENOX) 40 mg/0.4 mL injection Inject 40 mg into the skin daily. 07/02/20 Active gabapentin (NEURONTIN) 400 mg capsule Take [...] 1 Tablet by mouth daily before breakfast. 12/15/20 24 Active polyethylene glycol 3350 (MIRALAX) 17 gram [...] Problem Noted Date Diagnosed Date Mood disorder ([facility]) 06/27/2024 Type 2 diabetes mellitus wit h hyperglycemia, without long-term current use of insulin ([facility]) 06/27/2024 Iron deficiency anemia 06/13/2024 Chronic hepatitis C without hepatic coma (HCC-CM S) 06/13/2024 Anxiety 06/09/2024 MRSA bacteremia 2024 Discitis of thoracolumbar region 2024 Epidural abscess 2024 Sepsis due to methicillin re sistant Staphylococcus aureus (MRSA) without acute organ dysfunction (HCC-CMS) 2024 Acute pain 2024 Opioid use disorder 2024 Jaundice 02/02/2020 Right upper quadrant abdominal pain 02/02/2020 Acute hepatitis A 02/02/2020 Encounters Date Type Department Care Team Description 05/29/2024 13:24 EST Anesthesia Event [facility] OR [address] [place] [address] Eloise Nassar MD Bontempo, Nicholas, AA 05/29/2024 13:00 EST - 05/29/2024 14:25 EST Surgery [facility] OR [address] [place] [address] Enedina Kirkland MD MARIBEL [[id number] (CPT??)] 2024 11:15 EST - 07/02/2024 12:43 EST Hospital Encounter [facility] [address] [place] [address] Taj Parsons DO Riser, Elly Amalea, MD [...] insulin (HCC-CMS) Discharge Disposition: Short Term Hospital 05/25/2024 21:56 EST - 05/25/2024 23:59 EST Hospital Encounter [facility] [place] [place] Discharge Disposition: Home or Self Care 05/25/2024 21:56 EST - 05/25/2024 23:59 EST Hospital Encounter [facility] [place] [place] Discharge Disposition: Home or Self Care 05/25/2024 Travel 05/24/2024 Hospital Encounter [facility] [place] Discharge Disposition: Home or Self Care 05/24/2024 Hospital Encounter [facility] [place] Discharge Disposition: Home or Self Care 05/02/2024 Lab Requisition [facility] [address] [address] Outr Resulting Lab, Provider 05/01/2024 Lab Requisition [facility] [address] [address] Outr Resulting Lab, Provider 05/01/2024 Lab Requisition [facility] [address] [address] Outr Resulting Lab, Provider 05/01/2024 Lab Requisition [facility] [address] [address] Outr Resulting Lab, Provider 05/01/2024 Lab Requisition [facility] [address] [address] Outr Resulting Lab, Provider from Last 3 Months Surgical History Surgery Date Site/Laterality Comments HERNIA REPAIR Medical History Medical History Date Comments Herniated cervical disc Arthritis Degenerative joint disease IVDU (intravenous drug user) Anxiety Social History Tobacco Use Types Packs/Day Years Used Date Smoking Tobacco: Every Day Cigarettes 1 15 Smokeless Tobacco: Never Tobacco Cessation:Ready to Q uit: Not Asked; Counseling Given: Not Answered Alcohol Use Standard Drinks/Week Comments Never 0 (1 standard drink = 0.6 oz pur e alcohol) C Utilities Answer Date Recorded In the past 12 months has [employer], gas, oil, or water [employer] threatened to shut off services in your home? No 2024 AUDIT-C Answer Date Recorded Q1: How often do you have a drink containing alc ohol? Never 02/02/2020 Average Number of Drinks Not on file 020 Frequency of Binge Drinking Not on file [...] any time in the past 12 m [facility], were you homeless or living in a chcf (including now)? No 2024 AHC - Inadequate Housing Answer Date Re corded What is your living situation today? I have a [facility] place to live 05/30/2024 Housing Problems Not [...] hurt you? 2024 How often does anyone, ubaldo kilpatrick family, insult, scream, curse or threaten to hurt you? 2024 Sex and Gender Information Value Date Recorded Sex Assigned at Not on file Legal Sex Male 17:33 EST Gender Identity Male 05/31/2019 1:50 EST Sexual Orientation Not on file Obstetrics History Last Filed Vital Signs Vital Sign Reading [...] Body Mass Index 28.44 2024 1506 EST Plan of Treatment Health Maintenance Due Date Last Done Comments Eye Exam 1980 Foot Exam 1980 Microalbumin/Creatinine Ratio 1980 Lipid Profile Screening (Cholesterol) 1983 Pneumococcal Immunization (1 of 2 - PCV) 1986 Hepatitis B Vaccine (1 of 3 - 19+ 3-dose series) 1999 COVID-19 Vaccine (2023-2 5 season) 2024 Hemoglobin A1C (Ha1C) 11/24/2024 05/27/2024 Hepatitis C Screen Completed 05/01/2024, 1 , 07/15/2023, Additional history exists Procedures Procedure Name Priority [...] HN LAB CBC SMEAR REVIEW Today 05/27/20 24 7:23 EST BASIC METABOLIC PANEL (BMP) Routine [...] 70 - 100 mg/dL 07/02/2024 7:33 EST [facility] HN LAB POC COMMENT (GLUCOSE) Test Performed by Nursing Services 07/02/2024 7:33 EST [facility] Blood CAPILLARY BLOOD / Unknown 07/02/2024 7:31 EST 07/02/2024 7:33 EST us Virginia Downey MD MPH POINT OF CARE TEST ORD ERABLES Final Result [facility] [address] [place] [address] * (ABNORMAL) COMPLETE BLOOD COUNT (06/29/2024 10:26 EST) Only the most recent of13 resultswithin the time period is included. WBC 4.56 4.00 - 10.40 K/cmm 06/29/2024 11:02 [facility] RBC 3.99(L) 4.36 - 5.78 M/cmm 06/29/2024 11:02 [facility] Hemoglobin 10.9(L) 13.8 - 17.3 g/dL 06/29/2024 11:02 [facility] HCT 32.0(L) 39.5 - 50.2 % 06/29/2024 11:02 [facility] MCV 80(L) 81 - 95 fL 06/29/2024 11:02 [facility] MCH 27.3(L) 27.6 - 33.0 pg 06/29/2024 11:02 [facility] MCHC 34.1 32.8 - 36.4 g/dL 06/29/2024 11:02 [facility] RDW-CV 15.6(H) <14.2 % 06/29/2024 11:02 [facility] RDW-SD 44.3 <46.0 fl 06/29/2024 11:02 [facility] PLT 222 141 - 377 K/cmm 06/29/2024 11:02 [facility] MPV 9.2(L) 9.5 - 12.7 fL 06/29/2024 11:02 [facility] Blood BLOOD SAMPLE TAKEN FROM CENTRAL LINE / Unknown Venipuncture / Unknown 06/29/2024 10:26 EST 06/29/2024 10:48 EST us Meaghan Zapata MD HEMATOLOGY & PF4 ORDER MENDEZ Final Result [facility] [address] [place] [address] * CK (06/29/2024 6:25 EST) Only the most recent of7 resultswithin the time period is included. CK 50 <=250 U/L 06/29/2024 7:24 [facility] Blood BLOOD SAMPLE TAKEN FROM CENTRAL LINE / Unknown PICC Line Draw / Unknown 06/29/2024 6:25 EST 06/29/2024 6:31 EST us Meaghan Zapata MD CHEMISTRY & BLOOD GAS ORDERABLES Final Result [facility] [address] [place] [id number] * (ABNORMAL) HEPATIC FUNCTION PANEL (ALB,ALK PHOS,ALT,AST,DBIL,TOT STEPHANY,TOT PROT) (06/29/2024 6:25 EST) Only the most recent of7 resultswithin the time period is included. Total Protein 7.7 6.3 - 8.2 g/dL 06/29/2024 7:24 [facility] Albumin 3.6 3.4 - 4.9 g/dL 06/29/2024 7:24 [facility] Bilirubin, Total <0.5 <1.4 mg/dL 06/29/20 7:24 [facility] Conjugated Bilirubin 0.0 <=0.3 mg/dL 06/29/2024 7:24 [facility] Unconjugated Bilirubin 0.2 <=1.1 mg/dL 06/29/2024 7:24 [facility] Alkaline Phosphatase 87 38 - 126 U/L 06/29/2024 7:24 [facility] ALT 53(H) <50 U/L 06/29/2024 7:24 [facility] AST 41 15 - 46 U/L 06/29/2024 7:24 [facility] Calculated Total Bilirubin 0.2 <1.4 mg/dL 06/29/2024 7:24 [facility] Blood BLOOD SAMPLE TAKEN FROM CENTRAL LINE / Unknown PICC Line Draw / Unknown 06/29/2024 6:25 EST 06/29/2024 6:31 EST us Meaghan Zapata MD CHEMISTRY & BLOOD GAS ORDERABLES Final Result Performing Organization Address City/[facility]/ZIP Co de Phone Number [facility] [address] [place] [address] * (ABNORMAL) BASIC METABOLIC PANEL (BMP) (06/29/2024 6:25 EST) Only the most recent of15 resultswithin the time period is included. Sodium 139 136 - 145 mmol/L 06/29/2024 7:24 EST [facility] Potassium 4.6 3.5 - 5.0 mmol/L 06/29/2024 7:24 [facility] Chloride 104 96 - 110 mmol/L 06/29/2024 7:24 [facility] CO2 Total 26 22 - 32 mmol/L 06/29/2024 7:24 [facility] Anion Gap 9 5 - 14 mmol/L 06/29/2024 7:24 [facility] Glucose 220(H) 70 - 99 mg/dl 06/29/2024 7:24 [facility] Calcium 9.3 8.5 - 10.5 mg/dL 06/29/2024 7:24 [facility] BUN 26 10 - 26 mg/dL 06/29/2024 7:24 [facility] Creatinine 0.92 0.66 - 1.25 mg/dL 06/29/2024 7:24 [facility] eGFR 105 >60 mL/min/1.73 m2 06/29/2024 7:24 [facility] Blood BLOOD SAMPLE TAKEN FROM CENTRAL LINE / Unknown PICC Line Draw / Unknown 06/29/2024 6:25 EST 06/29/2024 6:31 EST us Virginia Downey MD MPH CHEMISTRY & BLOOD GAS ORDERABLES Final Result Performing Organization Address City/[facility]/ZIP Co de Phone Number [facility] [address] [place] [address] * (ABNORMAL) C REACTIVE PROTEIN (06/18/2024 11:51 EST) Only the most recent of2 resultswithin the time period is included. C-Reactive Protein 33.4(H) <10.0 mg/L 06/18/2024 12:35 [facility] Blood VENOUS BLOOD / Unknown Venipuncture / Unknown 06/18/2024 11:51 EST 06/18/2024 12:09 EST us Johan Campos MD CHEMISTRY & BLOOD GAS ORDERABLES Final Result [facility] [address] [place] [address] * (ABNORMAL) COMPREHENSIVE METABOLIC PANEL (CMP) (06/18/2024 11:51 EST) Only the most recent of2 resultswithin the time period is included. Pathologist [facility] Sodium 137 136 - 145 mmol/L 06/18/2024 12:35 [facility] Potassium 4.1 3.5 - 5.0 mmol/L 06/18/2024 12:35 [facility] Chloride 106 96 - 110 mmol/L 06/18/2024 12:35 [facility] CO2 Total 24 22 - 32 mmol/L 06/18/2024 12:35 [facility] Glucose 164(H) 70 - 99 mg/dl 06/18/2024 12:35 [facility] BUN 14 10 - 26 mg/dL 06/18/2024 12:35 [facility] Creatinine 0.73 0.66 - 1.25 mg/dL 06/18/2024 12:35 [facility] eGFR 115 >60 mL/min/1.7 3m2 06/18/2024 12:35 [facility] Total Protein 7.5 6.3 - 8.2 g/dL 06/18/2024 12:35 [facility] Albumin 3.6 3.4 - 4.9 g/dL 06/18/2024 12:35 [facility] Alkaline Phosphatase 78 38 - 126 U/L 06/18/2024 12:35 [facility] AST 25 15 - 46 U/L 06/18/2024 12:35 [facility] ALT 28 <50 U/L 06/18/2024 12:35 [facility] Bilirubin, Total <0.5 <1.4 mg/dL 06/18/20 12:35 [facility] Calcium 9.4 8.5 - 10.5 mg/dL 06/18/2024 12:35 [facility] Albumin/Globulin Ratio 0.9(L) 1.0 - 2.5 06/18/2024 12:35 [facility] Anion Gap 7 5 - 14 mmol/L 06/18/2024 12:35 [facility] Blood VENOUS BLOOD / Unknown Venipuncture / Unknown 06/18/2024 11:51 EST 06/18/2024 12:09 EST Johan Campos MD CHEMISTRY & BLOOD GAS ORDERABLES Final Result [facility] [address] [place] [id number] * INSERT PICC LINE (06/13/2024 19:04 EST) Narrative Jabari Esteves RN - 06/13/2024 19:04 EST Jabari Esteves RN ? 06/13/2024 19:05 Central Catheter Insertion First Catheter This Session ?environmental science technician: Patient Location: [id number] Preliminary Data: Insertion Date: 06/13/24 Insertion Time: 1828 First Director Drug Safety: Jabari Esteves RN/MA Documenting Procedure: tamara chandler [...] Service / IR Details: Responsible Service: ABDON RN Lidocaine 1% - Route/Dose (cc's): Intradermal;1 Central Line Materials and Methods: Number of Attempts: 1 Number of Sites Attempted: 1 Number of Kits Used: 1 Location Device Used: Sherlock;Ultrasound;3CG Central Line Operators: Number Of Operators: 1 First Director Drug Safety's Name: Jabari Esteves RN First Director Drug Safety's Title: Vascular spiritual counselor Unless otherwise noted, there were no complications, no blood loss and no cultures obtained. JABARI ESTEVES RN ?? 06/13/2024 ?? 19:05 Johan Campos MD IV THERAPY ORDERABLES Final Resu lt * BACTERIAL CULTURE, BLOOD (06/08/2024 15:09 EST) Only the most recent of18 resultswithin the time period is included. Organism ID No Growth at 5 days 06/13/2024 16:01 EST [facility] Blood VENOUS BLOOD / Unknown Venipuncture / Unknown 06/08/2024 15:09 EST 06/08/2024 15:57 EST Narrative [facility] - 06/13/2024 16:01 EST Volume of blood collected may not be adequate for detection of bacteremia/septicemia. us Virginia Downey MD MPH MICROBIOLOGY - GENERAL ORDERABLES Final Result [facility] [address], [place] [id number] * CT ABDOMEN PELVIS W CONTRAST (06/05/2024 [...] above interpretation and agree with the findings. [id number] Narrative 06/05/2024 14:[address] ABDOMEN PELVIS [...] canal with mild to moderate spinal stenosis. Roll Finisher: No additional finding. Resulting Agency Comment [id number] Procedure Note Trupti Alvarez MD - 06/05/2024 [...] from prior exam are cortical lucencies at [id number] endplate with osseous destruction of the head of the right 11thrib, findings concerning for discitis osteomyelitis with costovertebralinvolvement. In the paraspinal soft tissues adjacent to this level thereis fatty stranding without discrete fluid collection. Increased softtissue density seen within the spinal canal with mild to moderate spinalstenosis. Roll Finisher: No additional finding. IMPRESSION 1. 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 Please see the same day MRI of thethoracic spine for further evaluation. 2. No bowel inflammation or organizing fluid collection within theabdomen or pelvis. I have personally reviewed the images and the above interpretation andagree with the findings. [id number] us Virginia Downey MD MPH IMG CT ORDERABLES Tia l Result * ECG REPORT - SCANNED (06/05/2024 8:24 EST) 06/05/2024 8:24 EST us Scan 2 Encapsulator PROCEDURE/MINOR SURGICAL OR DERABLES Final Result * [...] osteomyelitis of the adjacent right 11th rib. [id number] Narrative 06/04/2024 11:15 EST EXAM: MRI THORACIC [...] bone marrow signal abnormality. Resulting Agency Comment [id number] Procedure Note Spenser Warner MD - 06/04/2024 [...] and prevertebral enhancement at the T10 and [id number], slightly asymmetric to the right. The enhancement [...] and paraspinal phlegmonous enhancement is present at [id number] level, without evidence of prevertebral or paraspinal abscess.There is osteomyelitis of the adjacent right 11th rib. [id number] us Virginia Downey MD MPH IMG MRI ORDERABLES Fin al Result * (ABNORMAL) TRANSFERRIN SATURATION (05/31/2024 8:13 EST) Only the most recent of2 resultswithin the time period is included. Iron 39(L) 49 - 181 ??g/dL 05/31/2024 12:07 EST [facility] Iron Binding Capacity 276 240 - 450 ??g/dL 05/31/2024 12:07 EST [facility] Transferrin Saturation 14(L) 15 - 45 % 05/31/2024 12:07 EST [facility] Blood VENOUS BLOOD / Unknown Venipuncture / Unknown 05/31/2024 8:13 EST 05/31/2024 8:52 EST us Meaghan Zapata MD CHEMISTRY & BLOOD GAS ORDERABLES Final Result [facility] [address] [place] [address] * MAGNESIUM (05/31/2024 8:13 EST) Only the most recent of5 resultswithin the time period is included. Magnesium 2.2 1.7 - 2.8 mg/dL 05/31/2024 9:23 EST [facility] Blood VENOUS BLOOD / Unknown Venipuncture / Unknown 05/31/2024 8:13 EST 05/31/2024 8:52 EST us Taj Parsons DO CHEMISTRY & BLOOD GAS ORDERABLES Final Result Performing Organization Address [facility] Co de Phone Number [facility] [address] [place] [address] * FERRITIN (05/31/2024 8:13 EST) Only the most recent of2 resultswithin the time period is included. Ferritin 137 22 - 322 ng/mL 05/31/2024 13:14 EST [facility] Blood VENOUS BLOOD / Unknown Venipuncture / Unknown 05/31/2024 8:13 EST 05/31/2024 8:52 EST Meaghan Zapata MD CHEMISTRY & BLOOD GAS ORDERABLES Final Result Performing Organization Address [facility] Co de Phone Number [facility] [address] [place] [address] * TRANSESOPHAGEAL ECHO (MARIBEL) COMPLETE NO CONTRAST [...] Details This study was interpreted by [facility]. Pertinent images and digital data are archived for permanent storage and are available for subsequent review. During the study the esophageal view was captured. The probe was inserted by the facilities maintenance engineer. Images were obtained using cardiac ultrasound machine EPIQ #21. There was minimal probe insertion difficulty. Patient was given consious sedation. Image quality was good. The transesophageal probe was removed. Study completion: The patient tolerated the procedure well. No blood loss or specimens removed during the procedure. There were no complications. us Martha Syed MD MPH CARDIAC ECHO ORDERABLES Final Result * HIV 1 RNA QUANTITATION (05/28/2024 13:26 EST) HIV RNA Detection, Qual Undetected Undetected copies/mL 05/29/2024 12:31 EST [facility] Blood VENOUS BLOOD / Unknown Venipuncture / Unknown 05/28/2024 13:26 EST 05/28/2024 13:32 EST Narrative [facility] - 05/29/2024 12:31 EST The quantification range of this assay is 20 IU/mL to 10,000,000 IU/mL. ??Testing was performed using the Daniella HIV test ([employer] with the daniella [employer]. us Martha Syed MD MPH CHEMISTRY & BLOOD GAS O RDERABLES Final Result [facility] [address] [place] [id number] * XR ENTIRE SPINE 2-3 VIEWS (05/28/2024 8:42 EST) Anatomical Region Laterality Modality Spine Computed Radiogr aphy 05/28/2024 12:1 7 EST Impressions 05/28/2024 12:17 EST No significant malalignment evident. [id number] Narrative 05/28/2024 12:17 EST XR ENTIRE SPINE [...] pleural effusions are evident. Resulting Agency Comment [id number] Procedure Note Moe Martin MD - 05/28/2024 [...] effusions areevident. IMPRESSION No significant malalignment evident. [id number] us Martha Syed MD MPH IMG DIAGNOSTIC IMAGING ORDERABLES Final Result * CT CHEST W CONTRAST (05/28/2024 8:33 EST) Anatomical Region Laterality Modality Chest Computed Tomogra phy 05/28/2024 12:1 4 EST Impressions 05/28/2024 12:14 EST Trace bilateral pleural effusions with associated passive atelectasis. [id number] Narrative 05/28/2024 12:[address] CHEST W [...] in the bones. ?? Resulting Agency Comment [id number] Procedure Note Trupti Alvarez MD - 05/28/2024 [...] bilateral pleural effusions with associated passive atelectasis. [id number] us Martha Syed MD MPH IMG CT [...] up to 7 mm. Correlate with LFTs. [id number] Narrative 05/28/2024 12:[address] ABDOMEN PELVIS [...] osseous abnormality. Limbus vertebral body at L3. Roll Finisher: No additional finding Resulting Agency Comment [id number] Procedure Note Trupti Alvarez MD - 05/28/2024 [...] aggressive osseous abnormality. Limbusvertebral body at L3. Roll Finisher: No additional finding IMPRESSION 1. No embolic findings. Normal enhancement of the kidneys and spleen. 2. Splenomegaly. 3. Mild extrahepatic biliary dilation measuring up to 7 mm. [facility]. [id number] us Martha Syed MD MPH IMG CT ORDERABLES Final Result * EKG 12-LEAD (05/27/2024 8:31 EST) 05/27/2024 8:31 EST Narrative [facility] - 06/05/2024 8:18 EST ? [facility] ? Test Date: ?2024-05-27 Pat Name: ? MARCOS CAMEJO ?Department: ?? [address] ? Room: ? [id number] Gender: ? Male ? 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 [id number] : ?1980 ? Requested By: MARCI MENDOZA Order Number: [id number] ? Reading MD: ?? MARGOTH DORIS MD ? Measurements Intervals ?[place] ? Rate: ? 66 ? P: ?34 NH: ? 166 ?QRS: ?53 QRSD: ? 106 [...] Note Margoth George MD - 06/05/2024 [facility] Test Date: 2024-05-27 Pat Name: MARCOS CAMEJO Department: [place] [address] Room: [facility] Gender: Male Outboard Motor Inspector: [id number] : 1980 Requested By: MARCI MENDOZA Order Number: [id number] Dinorah MD: MARGOTH GEORGE MD Measurements Intervals [place] Rate: 66 P: 34 NH: 166 QRS: 53 QRSD: 106 T: 45 QT: 403 QTc: 422 Interpretive Statements SINUS RHYTHM WITH SINUS ARRHYTHMIA Compared to ECG 02/02/2020 00:14:58 Sinus tachycardia no longer present I reviewed the tracing and have either agreed or edited the findings inthis report. Electronically Signed On 06-05-2024 08:18:09 EST by MARGOTH MARIN. us Martha Syed MD MPH CARDIAC ECG ORDERABLES Final Result [facility] * HN LAB CBC SMEAR REVIEW (05/27/2024 7:23 EST) Differential Comment Slide was examined by a technologist to verify the WBC and/or platelet count. 05/27/2024 8:12 EST [facility] Blood VENOUS BLOOD / Unknown Venipuncture / Unknown 05/27/2024 7:23 EST 05/27/2024 7:35 EST us Taj Klever Jaqueline DO HEMATOLOGY & PF4 ORDERABLES Tia l Result Performing Organization Address [facility] Co de Phone Number [facility] [address] [place] [address] * (ABNORMAL) HEMOGLOBIN A1C (05/27/2024 7:23 EST) Hemoglobin A1c 6.2(H) <5.7 % 05/28/2024 8:23 EST [facility] Comment: Glycemic Status References: Normal: ??<5.7% Pre-Diabetes: ??5.7% - 6.4% Diagnostic of Diabetes: ??> or = 6.5% (if confirmed) Est Avg Glucose 131 mg/dL 8:23 EST [facility] Comment:The eAG represents t he A1c result expressed as average glucose in mg/dL. Blood VENOUS BLOOD / Unknown Venipuncture / Unknown 05/27/2024 7:23 EST 05/27/2024 7:35 EST us Martha Syed MD MPH CHEMISTRY & BLOOD GAS O RDERABLES Final Result Performing Organization Address City/[facility]/ZIP Co de Phone Number [facility] [address] [place] [address] * TRANSTHORACIC ECHO (TTE) COMPLETE W/DOPPLER W/CF NO CONTRAST (2024 15:45 EST) Triscuspid Valve Regurgitation Peak Gradient 19 mmHg [...] Stroke index (SV/bsa) LVOT DP 25.0 ml/m2 [facility] POINT OF CARE LA/aortic root ratio 1.41 [facility] POINT OF CARE LV E/e', lateral 4.4 [facility] POINT OF CARE LV E/e', medial 6.4 [facility] N POINT OF CARE LV e', lateral 21.20 cm/s [facility] POINT OF CARE LV e', medial 14.60 cm/s [facility] POINT OF CARE LVOT mean velocity, S 0.8 m/s [facility] POINT OF CARE IVS thickness, ED, PLAX 1.1 [facility] E/e', average 5 [...] color Doppler.The study was interpreted by [facility]. Pertinent images and digital data are archived for permanent storage and are available for subsequent review. Scanning was performed from the apical, parasternal, subcostal and suprasternal acoustic windows. Overall the study quality was adequate. The study was difficult due to patient clinical status. Images were obtained using cardiac ultrasound machine EPIQ #10. Supine us Taj Parsons DO CARDIAC ECHO ORDERABLES Final Re sult * PROCALCITONIN (2024 14:32 EST) Procalcitonin 0.30 See Note ng/mL 2024 16:02 EST [facility] Comment: NOTE: Reference Range: <0.5 ng/mL - Low risk of severe sepsis >2.0 ng/mL - High risk of severe sepsis Blood VENOUS BLOOD / Unknown Venipuncture / Unknown 2024 14:32 EST 2024 14:42 EST us Taj Parsons DO CHEMISTRY & BLOOD GAS ORDERABLES Final Result [facility] [address] [place] [address] * (ABNORMAL) SED RATE (2024 14:32 EST) Sed Rate 61(H) 0 - 15 mm/hr 2024 15:41 [facility] Blood VENOUS BLOOD / Unknown Venipuncture / Unknown 2024 14:32 EST 2024 14:42 EST Taj Parsons DO HEMATOLOGY & PF4 ORDERABLES Tia l Result [facility] [address] [place] [address] * (ABNORMAL) COMPLETE BLOOD COUNT AND DIFFERENTIAL (2024 14:32 EST) Pathologist [facility] WBC 6.66 4.00 - 10.40 K/cmm 2024 15:01 [facility] RBC 4.27(L) 4.36 - 5.78 M/cmm 2024 15:01 [facility] Hemoglobin 11.7(L) 13.8 - 17.3 g/dL 2024 15:01 [facility] HCT 34.3(L) 39.5 - 50.2 % 2024 15:01 [facility] MCV 80(L) 81 - 95 fL 2024 15:01 [facility] MCH 27.4(L) 27.6 - 33.0 pg 2024 15:01 [facility] MCHC 34.1 32.8 - 36.4 g/dL 2024 15:01 [facility] RDW-CV 15.9(H) <14.2 % 2024 15:01 [facility] RDW-SD 46.5(H) <46.0 fl 2024 15:01 [facility] PLT 277 141 - 377 K/cmm 2024 15:01 [facility] MPV 10.1 9.5 - 12.7 fL 2024 15:01 [facility] % Neutrophils 60.1 Not Indicated % 2024 15:01 [facility] % Lymphocytes 29.9 Not Indicated % 2024 15:01 [facility] % Monocytes 7.7 Not Indicated % 2024 15:01 [facility] % Eosinophils 1.4 Not Indicated % 2024 15:01 [facility] % Basophils 0.3 Not Indicated % 2024 15:01 [facility] % Immature Grans 0.6 Not Indicated % 2024 15:01 [facility] Absolute Neutrophils 4.01 2.20 - 8.85 K/cmm 2024 15:01 [facility] Absolute Lymphocytes 1.99 1.09 - 3.30 K/cmm 2024 15:01 [facility] Absolute Monocytes 0.51 0.10 - 0.80 K/cmm 2024 15:01 [facility] Absolute Eosinophils 0.09 0.03 - 0.61 K/cmm 2024 15:01 [facility] ABS Basophils 0.02 0.01 - 0.11 K/cmm 2024 15:01 [facility] Absolute Immature Grans 0.04 0.00 - 0.06 K/cmm 2024 15:01 [facility] Type of Differential: Auto 2024 15:01 [facility] Blood VENOUS BLOOD / Unknown Venipuncture / Unknown 2024 14:32 EST 2024 14:42 EST us Taj Parsons DO PACKAGES & DNA PROBE ORDERABLES Final Result [facility] [address], [place] [id number] * POCT US ED GUIDANCE PIV (2024 [...] Signature by Cynthia Calhoun on 2024 20:14 Procedure Note Cynthia Calhoun [...] Bruce Proc Guidance - PIV - POCUS [facility]: Indication(s): ?PIV was performed under US guidance [...] Bruce Proc Guidance - PIV - POCUS [facility]: Indication(s): PIV was performed under US guidance [...] Signature by Cynthia Calhoun on 2024 20:11 Raffi Bruce IMG POCT US ORDERABLES Final Res ult * MR OUTSIDE IMAGES CERVICAL SPINE (05/25/2024 21:57 EST) Narrative 05/25/2024 21:57 EST This is a non-reportable exam. us Provider Unknown MD MOONEY OTHER IMAGING ORDERABLES Final Result * CT OUTSIDE IMAGES HEAD (05/25/2024 21:57 EST) Narrative 05/25/2024 21:57 EST This is a non-reportable exam. us Provider Unknown MD MOONEY OTHER IMAGING ORDERABLES Final Result * CT [...] OGY ORDERABLES Final Result Performing Organization Address [facility] Co de Phone Number [facility] [address] [place] [id number] * QUANTIFERON TB2 (PERFORMABLE) (05/01/2024 12:15 EDT) Blood VENOUS BLOOD / Unknown 05/01/2024 12:15 EDT 05/02/2024 17:14 EDT us Provider Outr Resulting Lab IMMUNOLOGY AND SEROL OGY ORDERABLES Final Result Performing Organization Address City/[facility]/ZIP Co de Phone Number [facility] [address] [place] [phone] * QUANTIFERON TB1 (PERFORMABLE) (05/01/2024 12:15 EDT) Blood VENOUS BLOOD / Unknown 05/01/2024 12:15 EDT 05/02/2024 17:14 EDT us Provider Outr Resulting Lab IMMUNOLOGY AND SEROL OGY ORDERABLES Final Result Performing Organization Address City/[facility]/ZIP Co de Phone Number [facility] [address] [place] [phone] * QUANTIFERON NIL (PERFORMABLE) (05/01/2024 12:15 EDT) Blood VENOUS BLOOD / Unknown 05/01/2024 12:15 EDT 05/02/2024 17:14 EDT us Provider Outr Resulting Lab IMMUNOLOGY AND SEROL OGY ORDERABLES Final Result Performing Organization Address [facility]/ZIP Co de Phone Number [facility] [address] [place] [address] * QUANTIFERON INTERPRETATION (PERFORMABLE) (05/01/2024 12:15 EDT) [facility] Quantiferon Interpretation Negative Negative 05/03/2024 13:26 EDT [facility] Comment:No interferon-gamma response to M. tuberculosis antigens was detected. ??Infection with M. tuberculosis is unlikely. A single negative result does not exclude infection with M. tuberculosis. ??In patients at high risk for M. tuberculosis infection, a second test should be considered. TB1 Ag minus Nil 0.19 IU/ml 05/03/20 24 13:26 EDT [facility] TB2 Ag minus Nil 0.08 IU/mL 05/03/20 24 13:26 EDT [facility] Blood VENOUS BLOOD / Unknown 05/01/2024 12:15 EDT 05/03/2024 13:25 EDT us Provider Outr Resulting Lab IMMUNOLOGY AND SEROL OGY ORDERABLES Final Result Performing Organization Address [facility]/ZIP Co de Phone Number [facility] [address] [place] [address] * (ABNORMAL) HCV RNA DETECT QUANT (05/01/2024 12:15 EDT) [facility] HCV RNA Qualitative Detected( A) Undetected 05/03/2024 11:46 EDT [facility] HCV RNA Quantitative 474,000(H ) Undetected IU/mL 05/03/2024 11:46 EDT [facility] Blood VENOUS BLOOD / Unknown 05/01/2024 12:15 EDT 05/01/2024 21:21 EDT Narrative [facility] - 05/03/2024 11:46 EDT The quantification range of this assay is 15 IU/mL to 100,000,000 IU/mL. Testing was performed using the Daniella HCV test ([employer] with the daniella 6800 System. us Provider Outr Resulting Lab CHEMISTRY & BLOOD GA S ORDERABLES Final Result [facility] [address], [place] [id number] * HOLD SST (05/01/2024 12:15 EDT) Pathologist [facility] Hold Hold 05/01/2024 22:30 EDT [facility] Blood VENOUS BLOOD / Unknown 05/01/2024 12:15 EDT 05/01/2024 21:21 EDT us Provider Outr Resulting Lab LAB INFO SERVICE AND SUPPORT & PHONE RESULT Final Result Performing Organization Address City/[facility]/ZIP Co de Phone Number [facility] [address] [place] [address] * SYPHILIS SEROLOGY (05/01/2024 12:15 EDT) [facility] Syphilis Serology Negative Negative 05/02/2024 10:48 EDT [facility] Blood VENOUS BLOOD / Unknown 05/01/2024 12:15 EDT 05/01/2024 21:23 EDT us Provider Outr Resulting Lab IMMUNOLOGY AND SEROL OGY ORDERABLES Final Result Performing Organization Address City/[facility]/ZIP Co de Phone Number [facility] [address], [place] [id number] * CHLAMYDIA/N. GONORRHOEAE AMPLIFIED NUCLEIC ACID (05/01/2024 12:15 EDT) Neisseria gonorrhoeae Result Negative Negative 05/02/2024 12:10 EDT [facility] Chlamydia trachomatis Result Negative Negative 05/02/2024 12:10 EDT [facility] Urine URINE / Unknown 05/01/2024 1 2:15 EDT 05/01/2024 22:12 EDT us Provider Outr Resulting Lab MICROBIOLOGY - GENER AL ORDERABLES Final Result Performing Organization Address [facility] Co de Phone Number [facility] [address] [place] [address] * (ABNORMAL) HEPATITIS C AB W REFLEX TO HCV RNA BY PCR (05/01/2024 12:15 EDT) Pathologist [facility] Hep C Antibody Reactive(A ) Negative 05/02/2024 12:03 EDT [facility] Comment: Supplemental testing for HCV RNA is ordered to rule out active HCV infection. Blood VENOUS BLOOD / Unknown 05/01/2024 12:15 EDT 05/01/2024 21:21 EDT us Provider Outr Resulting Lab CHEMISTRY & BLOOD GA S ORDERABLES Final Result Performing Organization Address [facility] Co de Phone Number [facility] [address] [place] [address] * HEPATITIS A ANTIBODY IGM (05/01/2024 12:15 EDT) Pathologist [facility] Hepatitis A Antibody, IgM Negative Negative 05/02/2024 13:13 EDT [facility] Blood VENOUS BLOOD / Unknown 05/01/2024 12:15 EDT 05/01/2024 21:21 EDT Narrative [facility] - 05/02/2024 13:13 EDT The results of this assay can be falsely lowered due to the consumption of Biotin. us Provider Outr Resulting Lab CHEMISTRY & BLOOD GA S ORDERABLES Final Result [facility] [address], [place] [id number] * (ABNORMAL) HEPATITIS A TOTAL ANTIBODY W REFLEX (05/01/2024 12:15 EDT) Pathologist [facility] Hepatitis A Antibody, Total Positive(A ) Negative 05/02/2024 12:03 EDT [facility] Blood VENOUS BLOOD / Unknown 05/01/2024 12:15 EDT 05/01/2024 21:21 EDT Narrative [facility] - 05/02/2024 12:03 EDT The result of this assay can be falsely elevated (Positive) due to the consumption of Biotin. us Provider Outr Resulting Lab CHEMISTRY & BLOOD GA S ORDERABLES Final Result Performing Organization Address [facility] Co de Phone Number [facility] [address] [place] [phone] * HEPATITIS B CORE ANTIBODY (TOTAL) (05/01/2024 12:15 EDT) Pathologist [facility] Hepatitis B Core Ab, Total Negative Negative 05/02/2024 10:19 EDT [facility] Blood VENOUS BLOOD / Unknown 05/01/2024 12:15 EDT 05/01/2024 21:21 EDT us Provider Outr Resulting Lab CHEMISTRY & BLOOD GA S ORDERABLES Final Result Performing Organization Address City/[facility]/ZIP Co de Phone Number [facility] [address] [place] [address] * HEPATITIS B SURFACE ANTIBODY (05/01/2024 12:15 EDT) Pathologist [facility] Hep B Surface Ab, Quantitative 58.0 See Note mIU/mL 05/02/2024 9:39 EDT [facility] Comment: Reference Range for Hep B Surface Ab, Quant: Positive: >= 10.0 mIU/mL Negative: ??< 10.0 mIU/mL Patient is presumed to be immune to infection with Hepatitis B Virus. Hep B Surface Ab, Qualitative Positive See Note 05/02/2024 9:39 EDT [facility] Comment: Reference Range for Hep B Surface Ab, Qual: Unvaccinated: ??Negative Vaccinated: ??Positive Blood VENOUS BLOOD / Unknown 05/01/2024 12:15 EDT 05/01/2024 21:21 EDT us Provider Outr Resulting Lab CHEMISTRY & BLOOD GA S ORDERABLES Final Result Performing Organization Address City/[facility]/ZIP Co de Phone Number [facility] [address] [place] [address] * HEPATITIS B SURFACE ANTIGEN (05/01/2024 12:15 EDT) Hep B Surface Ag Negative Negative 05/02/2024 9:45 EDT [facility] Blood VENOUS BLOOD / Unknown 05/01/2024 12:15 EDT 05/01/2024 21:21 EDT us Provider Outr Resulting Lab CHEMISTRY & BLOOD GA S ORDERABLES Final Result Performing Organization Address [facility] de Phone Number [facility] [address] [place] [address] * HIV 1/2 ANTIGEN AND ANTIBODY, 4TH GENERATION (05/01/2024 12:15 EDT) HIV 1 and 2 Antibody/p24 Antigen, 4th Generation Negative Negative 05/02/2024 10:29 EDT [facility] Comment:If acute HIV-1 infec tion is suspected in a high risk patient, submit plasma specimen for HIV-1 RNA quantitation test. Blood VENOUS BLOOD / Unknown 05/01/2024 12:15 EDT 05/01/2024 22:02 EDT Narrative [facility] - 05/02/2024 10:29 EDT Fourth Generation assay performed on the Siemens Tabbloaur XPT. us Provider Outr Resulting Lab IMMUNOLOGY AND SEROL OGY ORDERABLES Final Result [facility] [address] [place] [address] from Last 3 Months Additional Health Concerns Infection Onset Date Last Indicated MRSA Comment:05/24/2024 +MRSA blood cultures [facility] Pos blood 05/26/24, 05/27/24, 05/29/24, 05/30/24, 06/01/24, 06/03/24, 06/04/24, 06/05/24 - Radha DiMasi 06/08/2024 2024 06/05/2024 Insurance [place] For more information, please contact: [phone] * Full Code (Latest Code Status on [...] participated in the discussion? Patient Care Teams Admissions Director Relationship Specialty Start Date End Date Raffi Merida DO [address] [place] [address] PCP - General Family Medicine - Primary Care 05/26/24
--- OUTSIDE RECORDS SUMMARY | 2024-07-02 14:31 | XMS_ITS | Encounter Summary ---
Author Organization [facility] Address [address] [place] [address] Care Team Providers Care Farm Crew Leader Name Role Phone Magnolia Raffi Anders DO Primary Care Provider [phone] Reason for Visit * Auth/Cert (Routine) Specialty Diagnoses / Procedures Referred By Contac t Referred To Contact Diagnoses Epidural abscess Acute pain MRSA bacteremia Discitis of thoracolumbar region Opioid use disorder Sepsis due to methicillin resistant Staphylococcus aureus (MRSA) without acute organ dysfunction ([facility]) Back Pain Referral ID Status Reason Start Date Expiration Date Visits Re quested Visits Authorized [id number] 1 1 Encounter Details Date Type Department Care Team (Late st Contact Info) Description 05/29/2024 13:24 EST Anesthesia Event [facility] OR [address] [place], [place] [id number] Eloise Nassar MD [address] [id number] Robin Jacobs AA [address] [phone] Anesthesia Record Procedure Summary Procedure Name Responsible Anesthesiologist Anesthesia Start Time Anesthesia Stop Time TRANSESOPHAGEAL ECHO (MARIBEL) Eloise Nassar MD 05/29/24 1324 05/29/24 1430 Events Date Time Event Comment 05/29/2024 1324 An Start The patient was re-evaluated immediately before moderate or deep sedation use, before anesthesia induction, or before the anesthesia procedure. 1324 An Start Data 1327 Awais Waiting on card iology and for pt's chart to arrive. 1339 Anesthesia Ready 1420 an stop data 1425 Handoff to RN I completed my handoff to the receiving nurse during which we: 1. Identified the patient 2. Identified the responsible provider 3. Reviewed the pertinent medical history 4. Discussed the surgical course 5. Reviewed intra-op anesthesia management and issues during anesthesia 6. Set expectations for post-procedure period 7. Allowed opportunity for questions and acknowledgement of understanding. 1430 An Stop Meds Name Total fentanyl citrate (PF) injection 100 mcg lidocaine 2% (PF) injection glass vial 6 0 mg phenylephrine 1 mg/10 mL pre -filled SYRINGE (Bolus or short duration infusion) 50 mcg propOFol (DIPRIVAN) injection 451,700 mc g dexmedetomidine injection - vial 16 mcg ePHEDrine pre-filled syringe 5 mg NaCl 0.9% (NS) infusion 100 mL * Agents Name O2 N2O Air Aux O2 flow * Blood No blood administrations on file. Lines, Drains, and Airways Type Details Placement Removal Peripheral IV 05/28/24; 2214; 05/19 02/08; 22; 1.75; B Quiñones Introcan; Anterior, Left; Forearm; Inserted by RN, Ultrasound Guided (PT tolerated procedure well, educated at bedside); 1; None; 3.15% Chlorhexidine with IPA; 06/08/24; 0143; Leaking; Catheter intact 05/28/242214 by Davide Linares, DAVID 06/08/24 0143 by Sukh Farr, DAVID documented in this encounter Social History Tobacco Use Types Packs/Day Years Used Date Smoking Tobacco: Every Day Cigarettes 1 15 Smokeless Tobacco: Never Alcohol Use Standard Drinks/Week Comments Never 0 (1 standard drink = 0.6 oz pur e alcohol) [facility] Utilities Answer Date Recorded In the past 12 months has [employer], gas, oil, or water [employer] threatened to shut off services in your [...] any time in the past 12 m [facility], were you homeless or living in a group home (including now)? No 2024 [facility] - Inadequate Housing Answer Date Re corded What is your living situation today? I have a [facility] place to live 05/30/2024 Housing Problems Not [...] you? 2024 How often does anyone, inclu finesse family, insult, scream, curse or threaten to hurt you? 2024 Sex and Gender Information Value Date Recorded Sex Assigned at Not on file Legal Sex Male 17:33 EST Gender Identity Male 05/31/2019 1:50 EST Sexual Orientation Not on file documented as of this encounter Functional Status * Are you deaf or do you have serious difficulty hearing? Answer Date of Assessment Author No 2024 18:52 EST Tristan Wells RN * Are you blind or do [...] Author No 2024 18:52 Tristan Kramer RN documented as of this encounter Mental Status * Because of a physical, mental, or emotional condition, do you have serious difficulty concentrating, remembering, or making decisions? (5 years old or older) Answer Entry Date Author No 2024 18:52 Tristan Kramer RN documented in this encounter OR Notes * Anesthesia Preprocedure Evaluation - Eloise Nassar MD - 05/29/2024 1511 EST Anesthesia Preprocedure Evaluation Patient Medical History, including Anesthesia History reviewed. Chart and Nursing Notes reviewed, including NPO status and Medication History. Additional ROS/History Findings: No Known Allergies Review of Systems Constitutional: Negative for fever. Respiratory: Negative for cough and shortness of breath. Cardiovascular: Negative for chest pain. Gastrointestinal: Negative for heartburn, nausea and vomiting. Past Medical History: Diagnosis Date Anxiety Arthritis Degenerative joint disease Herniated cervical disc IVDU (intravenous drug user) Patient Active Problem List Diagnosis Jaundice Right upper quadrant abdominal pain Acute hepatitis A MRSA bacteremia Discitis of thoracolumbar region Epidural abscess Sepsis due to methicillin resistant Staphylococcus aureus (MRSA) without acute organ dysfunction ([facility]) Acute pain Opioid use disorder Physical Exam Airway Mallampati: I TM distance: >3 FB Neck ROM: full Cardiovascular (+) murmur Dental Comments: Poor dentition Pulmonary - normal exam Abdominal Anesthesia Plan ASA 3 Anesthesia Type - MAC Anesthesia plan and risks discussed. Informed consent obtained from patient. Code status discussed? No The preoperative history and physical which was performed within 30 days of this procedure, has been reviewed and the clinically appropriate elements of the physical examination have been repeated. There are no changes to the documented history and physical or, if so, such changes are documented inthis note PAT Note Notes from 04/29/24 through 05/29/24 No notes of this type exist for this encounter. * Anesthesia Postprocedure Evaluation - Eloise Nassar MD - 05/29/2024 1511 EST Patient: Marcos Camejo Vital signs were reviewed with the recovery nurse. Complete vitals history is available in the Epicflowsheets. Vitals Value Taken Time BP 96/67 05/29/24 1430 Temp 36.3 ??C (97.3 ??F) 05/29/24 1423 Resp 13 05/29/24 1430 Pulse From Oximetry 72 BPM 05/29/24 1430 SpO2 95 % 05/29/24 1430 Heart Rate 73 BPM 05/29/24 1430 Last Pain Score - Numeric Pain Level (Scale 1-10): 6 Type of Anesthesia - MAC Anesthesia Post Evaluation Post-procedure vitals reviewed and are stable. Level of consciousness: sedated Temperature status: normothermia Respiratory status: airway patent and nasal cannula Cardiovascular status: acceptable Hydration status: adequate Nausea/Vomiting: none Pain management: adequate Post-Op Assessment: patient tolerated procedure well with no complications Patient participation: unable to participate due to sedation Disposition: inpatient Anesthesia Complications: No apparent anesthesia complications documented in this encounter Plan of Treatment Not on file documented as of this encounter Visit Diagnoses Not on filedocumented in this encounter Administered Medications Inactive Administered Medications - up to 3 most recent administrations Medication Order MAR Action Action Date Dose Rate Site dexmedeTOMIDine (PRECEDEX) injection intravenous, PRN, Starting on Wed05/29/24 at 1339, Until Wed05/29/24 at 1511, Routine, Anesthesia Intraprocedure Given 05/29/2024 13:46 EST 8 mcg Given 05/29/2024 13:39 EST 8 mcg ePHEDrine injection 25 mg/5 mL syringe intravenous, PRN, Starting on Wed05/29/24 at 1357, Until Wed05/29/24 at 1511, Routine, Anesthesia Intraprocedure Given 05/29/2024 13:57 EST 5 mg fentaNYL citrate (PF) injection intravenous, PRN, Starting on Wed05/29/24 at 1339, Until Wed05/29/24 at 1511, Routine, Anesthesia Intraprocedure Given 05/29/2024 13:46 EST 50 mcg Given 05/29/2024 13:39 EST 50 mcg lidocaine (PF) 20 mg/mL (2 %) injection intravenous, PRN, Starting on Wed05/29/24 at 1344, Until Wed05/29/24 at 1511, Routine, Anesthesia Intraprocedure Given 05/29/2024 13:44 EST 60 mg phenylephrine HCl in 0.9% NaCl injection intravenous, PRN, Starting on Wed05/29/24 at 1407, Until Wed05/29/24 at 1511, Routine, Anesthesia Intraprocedure Given 05/29/2024 14:07 EST 50 mcg propOFol (DIPRIVAN) injection intravenous, FA IP EQF CONTINUOUS PRN FOR ONE STEP MEDS, Starting on Wed05/29/24 at 1339, Until Wed05/29/24 at 1511, Routine, Anesthesia Intraprocedure Given 05/29/2024 13:47 EST 50 mg Rate Change 05/29/2024 13:46 EST 200 mcg/kg/min 103.44 mL/ hr Given 05/29/2024 13:44 EST 50 mg sodium chloride 0.9 % (NS) infusion intravenous, FA IP EQF CONTINUOUS PRN FOR ONE STEP MEDS, Starting on Wed05/29/24 at 1324, Until Wed05/29/24 at 1511, Routine, Anesthesia Intraprocedure New Bag 05/29/2024 13:24 EST documented in this encounter Additional Health Concerns Infection Onset Date Last Indicated Resolved Time MRSA Comment:05/24/2024 +MRSA blood cultures [facility] Pos blood 05/26/24, 05/27/24, 05/29/24, 05/30/24, 06/01/24, 06/03/24, 06/04/24, 06/05/24 - Radha DiMasi 06/08/2024 2024 06/05/2024 documented as of this encounter Care Teams Farm Crew Leader Relationship Specialty Start Date End Date Raffi Merida DO [address] [facility] [place] [id number] PCP - General Family Medicine - Primary Care 05/26/24 documented as of this encounter
--- OUTSIDE RECORDS SUMMARY | 2024-07-02 14:31 | XMS_ITS | Encounter Summary ---
Author Organization [facility] Address [address] [place] [address] Care Team Providers Care Physician Assistant Primary Care Name Role Phone Raffi Merida Martita SAUNDERS Primary Care Provider [phone] Reason for Visit * Reason Comments Back Pain Tx from [facility] ital s/p diagnosis of abscess at T10, T11, L1, and L2. Upon arrival to ED, VSS on RA, 04/27 back pain. * Auth/Cert (Routine) Specialty Diagnoses / Procedures Referred By Betzy beltran Referred To Contact Diagnoses Epidural abscess Acute pain MRSA bacteremia Discitis of thoracolumbar region Opioid use disorder Sepsis due to methicillin resistant Staphylococcus aureus (MRSA) without acute organ dysfunction ([facility]) Back Pain Referral ID Status Reason Start Date Expiration Date Visits Re quested Visits Authorized [id number] 1 1 Encounter Details Date Type Department Care Team (Late st Contact Info) Description 2024 11:15 EST - 07/02/2024 12:43 EST Hospital Encounter [facility] [address] [place] [address] Taj Parsons DO 111 [facility], Level [address] [place] [address] Martha Syed MD MPH [address] [id number] Meaghan Zapata MD [address] [phone] Virginia Downey MD MPH [address] [phone] Johan Campos MD [address] [phone] Hakeem Wagner MD [address] [phone] Discitis of thoracolumbar region (Primary Dx); Epidural abscess; MRSA bacteremia; Sepsis due to methicillin resistant Staphylococcus aureus (MRSA) without acute organ dysfunction ([facility]); Acute pain; Opioid use disorder; Anxiety; Mood disorder ([facility]); Iron deficiency anemia, unspecified iron deficiency anemia type; Chronic hepatitis C without hepatic coma ([facility]); Type 2 diabetes mellitus with hyperglycemia, without long-term current use of insulin ([facility]) Discharge Disposition: Short Term Hospital Social History Tobacco Use Types Packs/Day Years Used Date Smoking Tobacco: Every Day Cigarettes 1 15 Smokeless Tobacco: Never Alcohol Use Standard Drinks/Week Comments Never 0 (1 standard drink = 0.6 oz pur e alcohol) [facility] Utilities Answer Date Recorded In the past 12 months has [employer], gas, oil, or water [employer] threatened to shut off services in your [...] any time in the past 12 m [facility], were you homeless or living in a detention (including now)? No 2024 [facility] - Inadequate Housing Answer Date Re corded What is your living situation today? I have a [facility] place to live 05/30/2024 Housing Problems [...] Body Mass Index 28.44 2024 1506 EST documented in this encounter Functional Status * Are you [...] Tristan Kramer RN documented in this encounter Discharge Summaries * Virginia Downey MD MPH - 07/02/2024 1114 EST [facility] MEDICINE DISCHARGE SUMMARY Primary Care Provider: Raffi Merida Attending Physician: Virginia Downey MD * Admit Date: 05/26/24 Discharge Date: 06/30/24 Disposition (location): [facility] (inpatient transfer) Condition at Discharge: Improved , stable Reason for Admission (chief complaint): Back pain Principal/Final Diagnosis: MRSA bacteremia Additional Problems Managed in the Hospital: Active Hospital Problems Diagnosis Date Noted *MRSA bacteremia 2024 Mood disorder ([facility]) 06/27/2024 Type 2 diabetes mellitus with hyperglycemia, without long-term current use of insulin ([facility]) 06/27/2024 Iron deficiency anemia 06/13/2024 Chronic hepatitis C without hepatic coma ([facility]) 06/13/2024 Anxiety 06/09/2024 Discitis of thoracolumbar region 2024 Epidural abscess 2024 Sepsis due to methicillin resistant Staphylococcus aureus (MRSA) without acute organ dysfunction ([facility]) 2024 Acute pain 2024 Opioid use disorder 2024 Resolved Hospital Problems No resolved problems to display. Transition of care: [facility] Transition of Care report automatically routed to PCP office on discharge.Additional handoff communication performed via: Secure 1bib Staff Message Clinical Issues Needing Follow-up 1. 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 Recommended follow-up tests/procedures needed: [ ] with infectious disease for HCV treatment. Needs referral on discharge 3. Anticoagulation on discharge: No 4. Changes to goals of care at time of discharge (if applicable): n/a Hospital Course: Marcos Camejo is a 44yoM with PMHx significant for IVDU (on suboxone), TUD, mood disorder (seroquel) who presented as a transfer from [facility] ED for high grade MRSA bacteremia. On presentation, patient reported 4 months of recurrent midline thoracic pain. Worse with exertion and associated with fevers, headaches, photophobia/phonophobia, decreased appetite. Blood cultures on initial presentation positive for MRSA bacteremia. MR thoracic spine demonstrated T10- 11, L1-2 osteomyelitis/discitis and T10-11 early phlegmon and abscess. Patient was started on vancomycin and transferred to [facility] for further management and ortho spine consult. Neuro checks initially performed by orthopedic surgery BID and remained negative for neurologic deficits. Throughout hospital course alison hogan remained neurologically intact without perineal numbness, BLE weakness/numbness, or compromise of bowel/bladder function. ID was consulted with recommendation to transition to daptomycin given no lung findings consistent with septic emboli or pneumonia. Ceftaroline was added on 05/31 and rifampin on 06/06 due to persistently positive blood cultures. Blood cultures ultimately cleared on 06/08. Patient underwent PICC placement on 06/13. Antibiotics were de-escalated to just ceftaroline and daptomycin on 06/13. Course complicated by severe back pain for which patient received oral dilaudid and IV ketorolac. Given persistently positive cultures with ongoing severe back pain and some abdominal discomfort, repeat MR spine 06/[address] A/P 06/05 both negative for new nidus of infection or worsening epidural abscess. Psychiatry was consulted due to severe anxiety not relieved with atarax. Recommendation for scheduled ativan to provide relief and harm reduction to keep patient in house for duration of antibiotic therapy. Patient had a new diagnosis of diabetes A1C 6.2 but several blood sugars above 300. He was started on SSI and metformin. Patient was continued on IV ceftaroline and daptomycin, last day 07/19/24. He was stable for transfer to [facility], for completion of antibiotic course, on 07/02/24. Relevant Imaging/Procedures Performed: CT ABDOMEN PELVIS W CONTRAST Result Date: 06/05/2024 1. Findings of discitis/osteomyelitis of the T10-T11 disc as well as the right 11th costovertebral junction. Please see the same day MRI of the thoracic spine for further evaluation. 2. No bowel inflammation or organizing fluid collection within the abdomen or pelvis. I have personally reviewed theimages and the above interpretation and agree with the findings. [id number] MR THORACIC SPINE W WO CONTRAST Result Date: 06/04/2024 1. 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 [...] osteomyelitis of the adjacent right 11th rib. [id number] TERESA KERN MD 07/02/2024 11:19 ATTENDING ATTESTATION: Date of service: 07/02/2024 I interviewed and examined the patient; reviewed interval labs, events, and notes; and discussed the case with the medicine house staff team. I agree with and edited the findings and plan of care as documented in the discharge summary above. I reviewed the plan of care and discharge instructions with the patient. Total unit time I spent in the care of the patient today: 40 Minutes Virginia Downey MD MPH [facility] Inpatient Service 07/02/2024 11:56 documented in this encounter Medications at Time of Discharge acetaminophen (TYLENOL) 500 mg tablet Take 2 Tablets by mouth every 6 hours. 07/02/2024 baclofen (LIORESAL) 10 mg tablet Take 1 Tablet by mouth 3 times daily. 07/02/2024 bisacodyL (DULCOLAX) [address] 1 Suppository rectally daily as needed for Constipation. 07/02/2024 buprenorphine-nal oxone (SUBOXONE) 8-2 mg tablet, sublingual Place 2 Tablets under the tongue daily AND 1 Tablet at bedtime. Daily Max: 3 Tablets. 07/02/2024 diclofenac sodium gel Apply 2 g topically 2 times daily as needed for Pain. 07/02/2024 enoxaparin (LOVENOX) 40 mg/0.4 mL injection Inject 40 mg into the skin daily. 07/02/2024 ferrous gluconate (FERGON) 324 mg (38 mg iron) tablet Take 1 Tablet by mouth every Mon, Wed, Fri. 07/03/2024 gabapentin (NEURONTIN) 400 mg capsule Take 1 Capsule by mouth 3 times daily. 07/02/2024 insulin aspart U-100 (NOVOLOG FLEXPEN) 100 unit/mL (3 mL) injectable pen Inject 0-11 Units into the skin 3 times daily with meals. 07/02/2024 ketOROLAC (TORADOL) 30 mg/mL (1 mL) solution Inject 0.5 mL into the vein 2 times daily for 2 days. 07/02/2024 lactulose (CHRONULAC) 20 gram/30 mL solution Take 15 mL by mouth every 6 hours as needed for Pain. 07/02/2024 lidocaine 5 % (LIDODERM) 5 % patch Place 1 Patch onto the skin daily. 07/03/2024 LORazepam (ATIVAN) 1 mg tablet Take 1 Tablet by mouth 3 times daily. Daily Max: 3 mg 07/02/2024 metFORMIN (GLUCOPHAGE-XR) 500 mg ER tablet Take 1 Tablet by mouth 2 times daily. 07/02/2024 naproxen (NAPROSYN) 500 mg tablet Take 1 Tablet by mouth 2 times daily with breakfast and dinner. 07/05/2024 nicotine polacrilex (COMMIT) [address] 1 Lozenge inside cheek every hour as needed for Other. 07/02/2024 pantoprazole (PROTONIX) 20 mg tablet Take 1 Tablet by mouth daily before breakfast. 07/02/2024 polyethylene glycol 3350 (MIRALAX) 17 gram packet Take 17 g by mouth 2 times daily. 07/02/2024 QUEtiapine (SEROQUEL) 100 mg tablet Take 1 Tablet by mouth at bedtime. 07/02/2024 ramelteon (ROZEREM) 8 mg tablet Take 1 Tablet by mouth at bedtime as needed for Sleep. 07/02/2024 senna (SENOKOT) 8.6 mg tablet Take 2 Tablets by mouth at bedtime. 07/02/2024 simethicone (MYLICON) 80 mg chewable tablet Take 1 Tablet by mouth every 6 hours as needed for Flatulence. 07/02/2024 documented as of this encounter Ordered Prescriptions Prescription Sig Dispense Quantity Refills Last Filled Start Date End Date lidocaine 5 % (LIDODERM) 5 % patch Place 1 Patch onto the skin daily. 07/03/2024 naproxen (NAPROSYN) 500 mg tablet Take 1 Tablet by mouth 2 times daily with breakfast and dinner. 07/05/2024 ketOROLAC (TORADOL) 30 mg/mL (1 mL) solution Inject 0.5 mL into the vein 2 times daily for 2 days. 07/02/2024 diclofenac sodium gel Apply 2 g topically 2 times daily as needed for Pain. 07/02/2024 ferrous gluconate (FERGON) 324 mg (38 mg iron) tablet Take 1 Tablet by mouth every Mon, Wed, Fri. 07/03/2024 metFORMIN (GLUCOPHAGE-XR) 500 mg ER tablet Take 1 Tablet by mouth 2 times daily. 07/02/2024 buprenorphine-nalo xone (SUBOXONE) 8-2 mg tablet, sublingual Place 2 Tablets under the tongue daily AND 1 Tablet at bedtime. Daily Max: 3 Tablets. 07/02/2024 simethicone (MYLICON) 80 mg chewable tablet Take 1 Tablet by mouth every 6 hours as needed for Flatulence. 07/02/2024 senna (SENOKOT) 8.6 mg tablet Take 2 Tablets by mouth at bedtime. 07/02/2024 ramelteon (ROZEREM) 8 mg tablet Take 1 Tablet by mouth at bedtime as needed for Sleep. 07/02/2024 QUEtiapine (SEROQUEL) 100 mg tablet Take 1 Tablet by mouth at bedtime. 07/02/2024 polyethylene glycol 3350 (MIRALAX) 17 gram packet Take 17 g by mouth 2 times daily. 07/02/2024 pantoprazole (PROTONIX) 20 mg tablet Take 1 Tablet by mouth daily before breakfast. 07/02/2024 nicotine polacrilex (COMMIT) [address] 1 Lozenge inside cheek every hour as needed for Other. 07/02/2024 LORazepam (ATIVAN) 1 mg tablet Take 1 Tablet by mouth 3 times daily. Daily Max: 3 mg 07/02/2024 lactulose (CHRONULAC) 20 gram/30 mL solution Take 15 mL by mouth every 6 hours as needed for Pain. 07/02/2024 insulin aspart U-100 (NOVOLOG FLEXPEN) 100 unit/mL (3 mL) injectable pen Inject 0-11 Units into the skin 3 times daily with meals. 07/02/2024 gabapentin (NEURONTIN) 400 mg capsule Take 1 Capsule by mouth 3 times daily. 07/02/2024 enoxaparin (LOVENOX) 40 mg/0.4 mL injection Inject 40 mg into the skin daily. 07/02/2024 bisacodyL (DULCOLAX) [address] 1 Suppository rectally daily as needed for Constipation. 07/02/2024 baclofen (LIORESAL) 10 mg tablet Take 1 Tablet by mouth 3 times daily. 07/02/2024 acetaminophen (TYLENOL) 500 mg tablet Take 2 Tablets by mouth every 6 hours. 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 IM SIGNED (Y/NA): NA HOME HEALTH: NA DME: NA PHARMACY/PRESCRIPTIONS: N MEDS TO BEDS UTILIZED : N Patient and/or family who participated in discharge plan: Patient OTHER: call center representative caser up informed patient had been accepted for transfer to [facility]. All forms need for transfer brought to nurses station. No other CM questions or concerns at this time. Ev Hall MS, [facility] [employer] II * Virginia Downey MD MPH - 07/02/2024 0757 EST Internal Medicine Progress Note Service Date: 07/02/24 Admit Date: 2024 Reason for Admission: 44 y.o. male admitted with a chief complaint of back pain now with a principal diagnosis of MRSA bacteremia and T10-L2 osteo-discitis w epidural abscess with c/f narrowing of spinal canal 24 Hour Events: HERNÁN Subjective/Objective Subjective Feels good today. Walking around, eating well, no issues with BM, no acute concerns. He does have some back spasms and notes that baclofen does help. No numbness or tingling. Toradol helped previously. Review of Systems As above Objective Vital Signs: BP Min: 102/66 Max: 131/75 BP MAP Min: 75 mm Hg Max: 89 mm Hg Pulse From Oximetry Min: 69 BPM Max: 80 BPM Resp Min: 16 Max: 20 Temp Min: 36.6 ??C (97.9 ??F) Max: 37.1 ??C (98.8 ??F) SpO2 Min: 93 % Max: 95 % O2 Device: None No data recorded Weight : 87.4 kg (192 lb 9.6 oz) Physical Exam General: Alert and orientedx3, in no acute distress HEENT: moist mucous membranes, no scleral icterus CVS: well perfused Resp: normal work of breathing on room air Abdomen: deferred today Extremities: No cyanosis or edema Neuro: moves all 4 limbs spontaneously, no gross deficits appreciated Skin: No rashes, lesions, petechiae on visible skin Access: PICC Medications Reviewed Labs Reviewed Micro Reviewed Imaging Reviewed Micro: 2024: 4/4 Bcx positive MRSA @ 14hrs 05/27/2024: 4/4 Bcx positive MRSA @ 15hrs 05/29/2024: 2/4 Bcx positive MRSA @ 18hrs 05/30/2024: 2/4 Bcx positive MRSA @ 19.3hrs 06/01/2024: 4/4Bcx pos MRSA @ 17hrs & 29hrs 06/03/2024: 2/4 Bcx with one set positive MRSA @ 36.1hrs; other set with no growth to date 06/04/2024: 4/4 Bcx with one set positive MRSA @15.9hrs and 19hrs 06/05/2024: 2/4 Bcx with growth @27hrs 06/08/2024: 4/4 no growth to date Assessment Marcos Camejo is a 44 y.o. male with a PMHx notable for IVDU (on suboxone), TUD, mood disorder (seroquel) who presented as transfer from [facility] ED for High Grade MRSA bacteremia c/b T10-11, L1-2 osteomyelitis, discitis, and T10-11 early phlegmon and early abscess. ID and orthopedic spine consulted. Now on ceftaroline and daptomycin due to persistent positive cultures. Plan for transfer to [facility] if they are able to administer IV antibiotics (daptomycin and ceftaroline) and pending cost sharing plan. Plan #Thoracic and lumbar spinal epidural abscess/ T10-L2 osteodiscitis with prolonged High Grade MRSA bacteremia - ID consulted, final recs, Antibiotics through 07/20/2024 - IV Dapto 10mg/kg - Ceftaroline 600 q8 - Weekly LFT, CK (baseline wnl) - if leaving (AMA) without continued IV abx, plan: linezolid PO BID, ideally with <2 weeks remaining of planned course -could attempt dropping ceftaroline or dapto if transfer to [place], and monitor sxs, blood cxs if sxs #Pain management - Acetaminophen 1g q6 - gabapentin to 400 mg TID - toradol BID for 2 days then naproxen 500 BID, Cr stable - baclofen 10 TID - pantoprazole 20 mg daily - 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 - Th BMP 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 and 8mg at bedtime #Constipation, resolved on current regimen - miralax BID - senna 2 tablets at bedtime - suppository prn - lactulose q6 PRN #Large interatrial septal aneurysm #Small PFO and secundum ASD with L->R shunting - Noted on MARIBEL, no sequelae (stroke, HD changes, bleeding) #T2DM New this admission, A1c 6.2%, >2 FBG >126 - F/u PCP for further management - SSI - Metformin 500mg bid - DM education, DM diet #Iron Deficiency Anemia, stable - Hb 10-11 throughout hospital course - Low Fe - PO iron 3 times a week - s/p IV dextran on 06/30 Chronic/Stable: HCV, untreated Chronically Elevated liver chemistries + HCV quant on OSH records. Hep A Ab +, c/w immunity. Hep B surface Ab +; Hep B core Ab + in 2022 and negative this admission c/w prior exposure and cleared infection. HIV ab neg 04/2024. - daily CMP, Mg - OP referral at time of discharge #TUD: PRN nicotine replacement therapy Checklist: Consults: ID, med psych Diet: DIET REGULAR VTE Prophylaxis: lovenox 40 mg qd Code status: Full Code confirmed on admission; girlfriend is DPOA Discharge Plan: Potential transfer to [facility] pending, otherwise will stay for antibiotic treatment through 07/19/2024 TERESA KERN MD 07/02/2024 7:59 ATTENDING ATTESTATION: Date of service: 07/02/2024 I have interviewed and examined the patient. I personally reviewed laboratories studies, radiographic studies, ECG, and prior records. I discussed the case with: the medicine house staff team. I agree with and edited (in Blue) the findings and plan of care as documented in the note above. Virginia Downey MD MPH [facility] Inpatient Service 07/02/2024 10:50 * Virginia Downey MD MPH - 07/01/2024 0806 EST Internal Medicine Progress Note Service Date: 07/01/24 Admit Date: 2024 Reason for Admission: 44 y.o. male admitted with a chief complaint of back pain now with a principal diagnosis of MRSA bacteremia and T10-L2 osteo-discitis w epidural abscess with c/f narrowing of spinal canal 24 Hour Events: HERNÁN Subjective/Objective Subjective Feels good today. Walking around, eating well, no issues with BM, no acute concerns. He does have some back spasms and notes that baclofen does help. No numbness or tingling. Review of Systems As above Objective Vital Signs: BP Min: 120/67 Max: 124/71 BP MAP Min: 84 mm Hg Max: 92 mm Hg Pulse From Oximetry Min: 66 BPM Max: 72 BPM Resp Min: 16 Max: 18 Temp Min: 36.7 ??C (98 ??F) Max: 36.9 ??C (98.4 ??F) SpO2 Min: 94 % Max: 98 % O2 Device: None No data recorded Weight : 87.4 kg (192 lb 9.6 oz) Physical Exam General: Alert and orientedx3, in no acute distress HEENT: moist mucous membranes, no scleral icterus CVS: regular rate and rhythm, no murmurs appreciated Resp: normal work of breathing, clear to ausculation bilaterally Abdomen: soft, non-tender, non distended Extremities: No cyanosis or edema Neuro: moves all 4 limbs spontaneously, no gross deficits appreciated Skin: No rashes, lesions, petechiae on visible skin Access: PICC without evidence of erythema, ecchymoses, edema, tenderness, drainage Medications Reviewed Labs Reviewed Micro Reviewed Imaging Reviewed Micro: 2024: 4/4 Bcx positive MRSA @ 14hrs 05/27/2024: 4/4 Bcx positive MRSA @ 15hrs 05/29/2024: 2/4 Bcx positive MRSA @ 18hrs 05/30/2024: 2/ Bcx positive MRSA @ 19.3hrs 06/01/2024: 4/4Bcx pos MRSA @ 17hrs & 29hrs 06/03/2024: 2/4 Bcx with one set positive MRSA @ 36.1hrs; other set with no growth to date 06/04/2024: 4/4 Bcx with one set positive MRSA @15.9hrs and 19hrs 06/05/2024: 2/4 Bcx with growth @27hrs 06/08/2024: 4/ no growth to date Assessment Marcos Camejo is a 44 y.o. male with a PMHx notable for IVDU (on suboxone), TUD, mood disorder (seroquel) who presented as transfer from [facility] ED for High Grade MRSA bacteremia c/b T10-11, L1-2 osteomyelitis, discitis, and T10-11 early phlegmon and early abscess. ID and orthopedic spine consulted. Now on ceftaroline and daptomycin due to persistent positive cultures. Plan for transfer to [facility] if they are able to administer IV antibiotics (daptomycin and ceftaroline) and pending cost sharing plan. Plan #Thoracic and lumbar spinal epidural abscess/ T10-L2 osteodiscitis with prolonged High Grade MRSA bacteremia - ID consulted, final recs, Antibiotics through 07/20/2024 - IV Dapto 10mg/kg - Ceftaroline 600 q8 - Weekly LFT, CK (baseline wnl) - if leaving (AMA) without continued IV abx, plan: linezolid PO BID, ideally with <2 weeks remaining of planned course -could attempt dropping ceftaroline or dapto if transfer to [place], and monitor sxs, blood cxs if sxs #Pain management - Acetaminophen 1g q6 - gabapentin to 400 mg TID - naproxen 500 BID, Cr stable - baclofen 10 TID - pantoprazole 20 mg daily - 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 and 8mg at bedtime #Constipation, resolved on current regimen - miralax BID - senna 2 tablets at bedtime - suppository prn - lactulose q6 PRN #Large interatrial septal aneurysm #Small PFO and secundum ASD with L->R shunting - Noted on MARIBEL, no sequelae (stroke, HD changes, bleeding) #T2DM New this admission, A1c 6.2%, >2 FBG >126 - F/u PCP for further management - SSI - Metformin 500mg bid - DM education, DM diet #Iron Deficiency Anemia, stable - Hb 10-11 throughout hospital course - Low Fe - PO iron 3 times a week - s/p IV dextran on 06/30 Chronic/Stable: HCV, untreated Chronically Elevated liver chemistries + HCV quant on OSH records. Hep A Ab +, c/w immunity. Hep B surface Ab +; Hep B core Ab + in 2022 and negative this admission c/w prior exposure and cleared infection. HIV ab neg 04/2024. - daily CMP, Mg - OP referral at time of discharge #TUD: PRN nicotine replacement therapy Checklist: Consults: ID, med psych Diet: DIET REGULAR VTE Prophylaxis: lovenox 40 mg qd Code status: Full Code confirmed on admission; girlfriend is DPOA Discharge Plan: Potential transfer to [facility] pending, otherwise will stay for antibiotic treatment through 07/19/2024 TERESA KERN MD 07/01/2024 8:06 ATTENDING ATTESTATION: Date of service: 07/01/2024 I have interviewed and examined the patient. I personally reviewed laboratories studies, radiographic studies, ECG, and prior records. I discussed the case with: the medicine house staff team. I agree with and edited (in Blue) the findings and plan of care as documented in the note above. Virginia Downey MD MPH [facility] Inpatient Service 07/01/2024 13:33 * Porter Nicole - 06/30/2024 1546 EST [facility] Department of Case Management and Social Work Case Management Progress Note Patient Name Level of Care and Accommodation Code: Patient Class: Medically Ready: Y/N Marcos Camejo [facility] General Inpatient N Primary Dx: Decisional Capacity: Y/N Primary Support/ CareGiver: Advance Directive MRSA bacteremia Y partner Advance Directives (For Healthcare) Healthcare Directive: No, patient does not have advance directive for healthcare treatment Information Provided on Healthcare Directives: Yes Information on Healthcare Directives Requested: Yes Patient Requests Assistance: Yes, will do independently Disposition Information Appropriate to transfer back: Y/N Length of Stay (in days): Estimated Date of D/C: LTC Medicaid Status: 35 2-4 days N Primary Care Provider: AR/[facility]AYA/SNF referred: Y/N Bed Offers: Y/N Escalated to Leadership: Y/N Raffi Zabala Mobility Level: Recommended D/C Location Payor: Bedside Mobility Assessment Tool (BMAT) Bedrest or non-weight bearing orders?: No Mobility level determined: Mobility Level 4 use gait belt, walker, crutches, cane, prosthetic(s) Number of caregivers reccommended: 0 Payor[place] / Plan[place] / Product Type[place] / Barriers to Discharge Contract and cost sharing details sent to [facility] for review. Pt will be sent with short term supply of medications until [facility] can receive from their supplier. Currently waiting on final agreement from MDR Plan DC to [facility] for remaining iv abx plan. CM attempted to visit with patient to provide CM updates and transfer status. Pt sleeping. [employer] Epic chat preferred. 06/30/2024 15:48 06/30/24 15:46 * Virginia Downey MD MPH - 06/30/2024 1115 EST Internal Medicine Progress Note Service Date: 06/30/24 Admit Date: 2024 Reason for Admission: 44 y.o. 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 He said he is doing well. Pain is controlled. No constipation, diarrhea, NV. No other concerns at this time. Review of Systems As above Objective Vital Signs: BP Min: 105/69 Max: 120/67 BP MAP Min: 80 mm Hg Max: 86 mm Hg Pulse From Oximetry Min: 69 BPM Max: 71 BPM Resp Min: 16 Max: 17 Temp Min: 36.5 ??C (97.7 ??F) Max: 36.7 ??C (98 ??F) SpO2 Min: 96 % Max: 100 % O2 Device: None No data recorded Weight : 87.4 kg (192 lb 9.6 oz) Physical Exam General: Alert and orientedx3, in no acute distress HEENT: moist mucous membranes, no scleral icterus CVS: regular rate and rhythm, no murmurs appreciated Resp: normal work of breathing, clear to ausculation bilaterally Abdomen: soft, non-tender, non distended Extremities: No cyanosis or edema Neuro: moves all 4 limbs spontaneously, no gross deficits appreciated Skin: No rashes, lesions, petechiae on visible skin Access: PICC without evidence of erythema, ecchymoses, edema, tenderness, drainage Medications Reviewed Labs Reviewed Micro Reviewed Imaging Reviewed Micro: 2024: 4/4 Bcx positive MRSA @ 14hrs 05/27/2024: 4/4 Bcx positive MRSA @ 15hrs 05/29/2024: 2/4 Bcx positive MRSA @ 18hrs 05/30/2024: 2/4 Bcx positive MRSA @ 19.3hrs 06/01/2024: 4/4Bcx pos MRSA @ 17hrs & 29hrs 06/03/2024: 2/4 Bcx with one set positive MRSA @ 36.1hrs; other set with no growth to date 06/04/2024: 4/4 Bcx with one set positive MRSA @15.9hrs and 19hrs 06/05/2024: 2/4 Bcx with growth @27hrs 06/08/2024: 4 no growth to date Assessment Marcos Camejo is a 44 y.o. male with a PMHx notable for IVDU (on suboxone), TUD, mood disorder (seroquel) who presented as transfer from [facility] ED for High Grade MRSA bacteremia c/b T10-11, L1-2 osteomyelitis, discitis, and T10-11 early phlegmon and early abscess. ID and orthopedic spine consulted. Now on ceftaroline and daptomycin due to persistent positive cultures. Currently coordinating dispo; here until end of IV abx 07/20/24 vs swing bed vs in-patient to in-patient vs [facility]. Significant barrier that other facilities do not have both ceftaroline and daptomycin. Tentatively accepted at [facility] pending discussion of cost sharing of abx. 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 and 8mg at bedtime #Constipation, improved on current regimen - miralax BID - senna 2 tablets at bedtime - suppository prn - lactulose q6 PRN #Large interatrial septal aneurysm #Small PFO and secundum ASD with L->R shunting - Noted on MARIBEL, no sequelae (stroke, HD changes, bleeding) #T2DM New this admission, A1c 6.2%, >2 FBG >126 - F/u PCP for further management - SSI - Metformin 500mg increased to bid - DM education, DM diet #Iron Deficiency Anemia, stable - Hb 10-11 throughout hospital course - Low Fe - start PO iron 3 times a week -If not transferring to [facility] today, will administer IV dextran Chronic/Stable: HCV, untreated Chronically Elevated liver chemistries + HCV quant on OSH records. Hep A Ab +, c/w immunity. Hep B surface Ab +; Hep B core Ab + in 2022 and negative this admission c/w prior exposure and cleared infection. HIV ab neg 04/2024. - daily CMP, Mg - OP referral at time of discharge #TUD: PRN nicotine replacement therapy Checklist: Consults: ID, med psych Diet: DIET REGULAR VTE Prophylaxis: lovenox 40 mg qd Code status: Full Code confirmed on admission; girlfriend is DPOA Discharge Plan: Potential transfer to [facility] pending, otherwise will stay for antibiotic treatment through 07/19/2024 MAGDA FIGUEREDO MD 06/30/2024 11:15 ATTENDING ATTESTATION: Date of service: 06/30/2024 I have interviewed and examined the patient. I personally reviewed laboratories studies, radiographic studies, ECG, and prior records. I discussed the case with: the medicine house staff team. I agree with and edited (in Blue) the findings and plan of care as documented in the note above. Virginia Downey MD MPH [facility] Inpatient Service 06/30/2024 12:46 * Virginia Downey MD MPH - 06/29/2024 0738 EST Internal Medicine Progress Note Service Date: 06/29/24 Admit Date: 2024 Reason for Admission: 44 y.o. 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 He said he is doing well. Pain is controlled. No constipation, diarrhea, NV. No other concerns at this time. Review of Systems As above Objective Vital Signs: BP Min: 121/82 Max: 146/79 BP MAP Min: 88 mm Hg Max: 101 mm Hg Pulse From Oximetry Min: 61 BPM Max: 76 BPM Resp Min: 16 Max: 18 Temp Min: 36.7 ??C (98 ??F) Max: 37.1 ??C (98.7 ??F) SpO2 Min: 94 % Max: 97 % O2 Device: None No data recorded Weight : 87.4 kg (192 lb 9.6 oz) Physical Exam General: Alert and oriented, in no acute distress HEENT: moist mucous membranes, no scleral icterus CVS: regular rate and rhythm, no murmurs appreciated Resp: normal work of breathing, clear to ausculation bilaterally Abdomen: soft, non-tender, non distended Extremities: No cyanosis or edema Neuro: moves all 4 limbs spontaneously, no gross deficits appreciated Skin: No rashes, lesions, petechiae on visible skin Access: PICC without evidence of erythema, ecchymoses, edema, tenderness, drainage Medications Reviewed Labs Reviewed Micro Reviewed Imaging Reviewed Micro: 2024: 4/4 Bcx positive MRSA @ 14hrs 05/27/2024: 4/4 Bcx positive MRSA @ 15hrs 05/29/2024: 2/4 Bcx positive MRSA @ 18hrs 05/30/2024: 2/4 Bcx positive MRSA @ 19.3hrs 06/01/2024: 4/4Bcx pos MRSA @ 17hrs & 29hrs 06/03/2024: 2/4 Bcx with one set positive MRSA @ 36.1hrs; other set with no growth to date 06/04/2024: 4/4 Bcx with one set positive MRSA @15.9hrs and 19hrs 06/05/2024: 2/4 Bcx with growth @27hrs 06/08/2024: 4/ no growth to date Assessment Marcos Camejo is a 44 y.o. male with a PMHx notable for IVDU (on suboxone), TUD, mood disorder (seroquel) who presented as transfer from [facility] ED for High Grade MRSA bacteremia c/b T10-11, L1-2 osteomyelitis, discitis, and T10-11 early phlegmon and early abscess. ID and orthopedic spine consulted. Now on ceftaroline and daptomycin due to persistent positive cultures. Currently coordinating dispo; here until end of IV abx 07/20/24 vs swing bed vs in-patient to in-patient vs [facility]. Significant barrier that other facilities do not have both ceftaroline and daptomycin. Tentatively accepted at [facility] pending discussion of cost sharing of abx. 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 and 8mg at bedtime #Constipation, improved on current regimen - miralax BID - senna 2 tablets at bedtime - suppository prn - lactulose q6 PRN #Large interatrial septal aneurysm #Small PFO and secundum ASD with L->R shunting - Noted on MARIBEL, no sequelae (stroke, HD changes, bleeding) #T2DM New this admission, A1c 6.2%, >2 FBG >126 - F/u PCP for further management - SSI - Metformin 500mg increased to bid - DM education, DM diet #Iron Deficiency Anemia, stable - Hb 10-11 throughout hospital course - Low Fe - Start iron supplementation following acute infection Chronic/Stable: HCV, untreated Chronically Elevated liver chemistries + HCV quant on OSH records. Hep A Ab +, c/w immunity. Hep B surface Ab +; Hep B core Ab + in 2022 and negative this admission c/w prior exposure and cleared infection. HIV ab neg 04/2024. - daily CMP, Mg - OP referral at time of discharge #TUD: PRN nicotine replacement therapy Checklist: Consults: ID, med psych Diet: DIET REGULAR VTE Prophylaxis: lovenox 40 mg qd Code status: Full Code confirmed on admission; girlfriend is DPOA Discharge Plan: Potential transfer to [facility] pending, otherwise will stay for antibiotic treatment through 07/19/2024 MAGDA FIGUEREDO MD 06/29/2024 7:38 ATTENDING ATTESTATION: Date of service: 06/29/2024 I have interviewed and examined the patient. I personally reviewed laboratories studies, radiographic studies, ECG, and prior records. I discussed the case with: the medicine house staff team. I agree with and edited (in Blue, if needed) the findings and plan of care as documented in the note above. Virginia Downey MD MPH [facility] Inpatient Service 06/29/2024 18:47 * Porter Nicole - 06/28/2024 1006 EST [facility] Department of Case Management and Social Work Case Management Progress Note Patient Name Level of Care and Accommodation Code: Patient Class: Medically Ready: Y/N Marcos Camejo Acute General Inpatient n Primary Dx: Decisional Capacity: Y/N Primary Support/ CareGiver: Advance Directive MRSA bacteremia y Girlfriend/partner Advance Directives (For Healthcare) Healthcare Directive: No, patient does not have advance directive for healthcare treatment Information Provided on Healthcare Directives: Yes Information on Healthcare Directives Requested: Yes Patient Requests Assistance: Yes, will do independently Disposition Information Appropriate to transfer back: Y/N Length of Stay (in days): Estimated Date of D/C: LTC Medicaid Status: Y 33 5+ N Primary Care Provider: AR/[facility]AYA/SNF referred: Y/N Bed Offers: Y/N Escalated to Leadership: Y/N Raffi Zabala Mobility Level: Recommended D/C Location Payor: Bedside Mobility Assessment Tool (BMAT) Bedrest or non-weight bearing orders?: No Mobility level determined: Mobility Level 4 use gait belt, walker, crutches, cane, prosthetic(s) Number of caregivers reccommended: 0 [facility] or OSH- Pay[place] / Plan[place] / Product Type: [place] / Barriers to Discharge IV abx therapy needed. Cost of cetraflone. Escalted to hospital leadership. Plan Per last note from transfer team: Transfer on hold per [facility] leadership. Updates to be provided as available. [employer] Epic chat preferred. 06/28/2024 10:09 06/28/24 10:06 * Virginia Downey MD MPH - 06/28/2024 0708 EST Internal Medicine Progress Note Service Date: 06/28/24 Admit Date: 2024 Reason for Admission: 44 y.o. 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 He said he is doing well. No concerns at this time. No fever. Pain controlled. Eating well. Has DM education yesterday. Denies constipation Review of Systems As above Objective Vital Signs: BP Min: 119/79 Max: 135/74 BP MAP Min: 90 mm Hg Max: 96 mm Hg Pulse From Oximetry Min: 67 BPM Max: 76 BPM Resp Min: 18 Max: 18 Temp Min: 36.7 ??C (98.1 ??F) Max: 36.9 ??C (98.4 ??F) SpO2 Min: 95 % Max: 97 % O2 Device: None No data recorded Weight : 87.4 kg (192 lb 9.6 oz) Physical Exam General: Alert and oriented, in no acute distress HEENT: moist mucous membranes, no scleral icterus CVS: regular rate and rhythm, no murmurs appreciated Resp: normal work of breathing, clear to ausculation bilaterally Abdomen: soft, non-tender, non distended Extremities: No cyanosis or edema Neuro: moves all 4 limbs spontaneously, no gross deficits appreciated Skin: No rashes, lesions, petechiae on visible skin Access: PICC without evidence of erythema, ecchymoses, edema, tenderness, drainage Medications Reviewed Labs Reviewed Micro Reviewed Imaging Reviewed Micro: 2024: 4/ Bcx positive MRSA @ 14hrs 05/27/2024: 4/ Bcx positive MRSA @ 15hrs 05/29/2024: 2/ Bcx positive MRSA @ 18hrs 05/30/2024: 2/ Bcx positive MRSA @ 19.3hrs 06/01/2024: 4/4Bcx pos MRSA @ 17hrs & 29hrs 06/03/2024: 2/ Bcx with one set positive MRSA @ 36.1hrs; other set with no growth to date 06/04/2024: 4/ Bcx with one set positive MRSA @15.9hrs and 19hrs 06/05/2024: 2/4 Bcx with growth @27hrs 06/08/2024: 4/ no growth to date Assessment Marcos Camejo is a 44 y.o. male with a PMHx notable for IVDU (on suboxone), TUD, mood disorder (seroquel) who presented as transfer from [facility] ED for High Grade MRSA bacteremia c/b T10-11, L1-2 osteomyelitis, discitis, and T10-11 early phlegmon and early abscess. ID and orthopedic spine consulted. Now on ceftaroline and daptomycin due to persistent positive cultures. Currently coordinating dispo; here until end of IV abx 07/20/24 vs swing bed vs in-patient to in-patient vs [facility]. Significant barrier that other facilities do not have both ceftaroline and daptomycin. 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 and 8mg at bedtime #Constipation, improved on current regimen - miralax BID - senna 2 tablets at bedtime - suppository prn - lactulose q6 PRN #Large interatrial septal aneurysm #Small PFO and secundum ASD with L->R shunting - Noted on MARIBEL, no sequelae (stroke, HD changes, bleeding) #T2DM New this admission, A1c 6.2%, >2 FBG >126 - F/u PCP for further management - SSI - Metformin 500mg daily - DM education, DM diet #Iron Deficiency Anemia, stable - Hb 10-11 throughout hospital course - Low Fe - Start iron supplementation following acute infection Chronic/Stable: HCV, untreated Chronically Elevated liver chemistries + HCV quant on OSH records. Hep A Ab +, c/w immunity. Hep B surface Ab +; Hep B core Ab + in 2022 and negative this admission c/w prior exposure and cleared infection. HIV ab neg 04/2024. - daily CMP, Mg - OP referral at time of discharge #TUD: PRN nicotine replacement therapy Checklist: Consults: ID, med psych Diet: DIET REGULAR VTE Prophylaxis: lovenox 40 mg qd Code status: Full Code confirmed on admission; girlfriend is DPOA Discharge Plan: Potential transfer to [facility] pending, otherwise will stay for antibiotic treatment through 07/19/2024 MAGDA FIGUEREDO MD 06/28/2024 7:40 ATTENDING ATTESTATION: Date of service: 06/28/2024 I have interviewed and examined the patient. I personally reviewed laboratories studies, radiographic studies, ECG, and prior records. I discussed the case with: the medicine house staff team. I agree with and edited (in Blue) the findings and plan of care as documented in the note above. Virginia Downey MD MPH [facility] Inpatient Service 06/28/2024 13:02 * Marleen Duran RN - 06/27/2024 1451 EST Data: Patient is a newly diagnosed diabetic. Action: Educated pt on what ACHS is and the sliding scale. Obtained sugars and administered insulin. Response: Breakfast sugar was high at 291 and 7 units were given. Lunch sugar was 115 and no insulin was needed per orders in the eMAR. London Duran RN 06/27/2024 14:52 * Virginia Downey MD MPH - 06/27/2024 2190 EST Internal Medicine Progress Note Service Date: 06/27/24 Admit Date: 2024 Reason for Admission: 44 y.o. 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 He said he is doing well. He really enjoyed being able to get out and get some fresh air this morning. 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 No other concerns at this time. Review of Systems As above Objective Vital Signs: BP Min: 114/89 Max: 138/97 BP MAP Min: 99 mm Hg Max: 99 mm Hg Pulse From Oximetry Min: 117 BPM Max: 117 BPM Resp Min: 18 Max: 18 Temp Min: 36.6 ??C (97.8 ??F) Max: 36.8 ??C (98.2 ??F) SpO2 Min: 95 % Max: 96 % O2 Device: None No data recorded Weight : 87.4 kg (192 lb 9.6 oz) Physical Exam General: Alert and oriented, in no acute distress HEENT: moist mucous membranes, no scleral icterus CVS: regular rate and rhythm, no murmurs appreciated Resp: normal work of breathing, clear to ausculation bilaterally Abdomen: soft, non-tender, non distended Extremities: No cyanosis or edema Neuro: moves all 4 limbs spontaneously, no gross deficits appreciated Skin: No rashes, lesions, petechiae on visible skin Access: PICC without evidence of erythema, ecchymoses, edema, tenderness, drainage Medications Reviewed Labs Reviewed Micro Reviewed Imaging Reviewed Micro: 2024: 4/4 Bcx positive MRSA @ 14hrs 05/27/2024: 4/4 Bcx positive MRSA @ 15hrs 05/29/2024: 2/4 Bcx positive MRSA @ 18hrs 05/30/2024: 2/4 Bcx positive MRSA @ 19.3hrs 06/01/2024: 4/4Bcx pos MRSA @ 17hrs & 29hrs 06/03/2024: 2/4 Bcx with one set positive MRSA @ 36.1hrs; other set with no growth to date 06/04/2024: 4/4 Bcx with one set positive MRSA @15.9hrs and 19hrs 06/05/2024: 2/4 Bcx with growth @27hrs 06/08/2024: 4/ no growth to date Assessment Marcos Camejo is a 44 y.o. male with a PMHx notable for IVDU (on suboxone), TUD, mood disorder (seroquel) who presented as transfer from [facility] ED for High Grade MRSA bacteremia c/b T10-11, L1-2 osteomyelitis, discitis, and T10-11 early phlegmon and early abscess. ID and orthopedic spine consulted. Now on ceftaroline and daptomycin due to persistent positive cultures. Currently coordinating dispo; here until end of IV abx 07/20/24 vs swing bed vs in-patient to in-patient vs [facility]. Significant barrier that other facilities do not have both ceftaroline and daptomycin. Plan #Thoracic and lumbar spinal epidural abscess/ T10-L2 osteodiscitis with prolonged High Grade MRSA bacteremia - ID consulted, final recs, Antibiotics through 07/20/2024 - IV Dapto 10mg/kg - Ceftaroline 600 q8 - Weekly LFT, CK (baseline wnl) - if leaving (AMA) without continued IV abx, plan: linezolid PO BID, ideally with <2 weeks remaining of planned course -could attempt dropping ceftaroline or dapto if transfer to [place], and monitor sxs, blood cxs if sxs #Pain management, greatly improved - Acetaminophen 1g QID - gabapentin to 400 mg TID - naproxen 500 BID, Cr stable - pantoprazole 20 mg daily - 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 and 8mg at bedtime #Constipation, improved on current regimen - miralax BID - senna 2 tablets at bedtime - suppository prn - lactulose q6 PRN #Large interatrial septal aneurysm #Small PFO and secundum ASD with L->R shunting - Noted on MARIBEL, no sequelae (stroke, HD changes, bleeding) #T2DM New this admission, A1c 6.2%, >2 FBG >126 - F/u PCP for further management - SSI - start metformin 500mg - DM education, DM diet #Iron Deficiency Anemia, stable - Hb 10-11 throughout hospital course - Low Fe - Start iron supplementation following acute infection Chronic/Stable: HCV, untreated Chronically Elevated liver chemistries + HCV quant on OSH records. Hep A Ab +, c/w immunity. Hep B surface Ab +; Hep B core Ab + in 2022 and negative this admission c/w prior exposure and cleared infection. HIV ab neg 04/2024. - daily CMP, Mg - OP referral at time of discharge #TUD: PRN nicotine replacement therapy Checklist: Consults: ID, med psych Diet: DIET REGULAR VTE Prophylaxis: lovenox 40 mg qd Code status: Full Code confirmed on admission; girlfriend is DPOA Discharge Plan: Potential transfer to [facility] [place] pending, otherwise will stay for antibiotic treatment through 07/19/2024 MAGDA FIGUEREDO MD 06/27/2024 7:36 ATTENDING ATTESTATION: Date of service: 06/27/2024 I have interviewed and examined the patient. I personally reviewed laboratories studies, radiographic studies, ECG, and prior records. I discussed the case with: the medicine house staff team. I agree with and edited (in Blue, if needed) the findings and plan of care as documented in the note above. Virginia Downey MD MPH [facility] Inpatient Service 06/27/2024 13:51 * Constantiney Porter - 06/26/2024 1517 EST The [facility] Department of Case Management and Social Work Case Management Progress Note Patient Name Level of Care and Accommodation Code: Patient Class: Medically Ready: Y/N Marcos Camejo Acute General Inpatient needs iv abx at acute setting Primary Dx: Decisional Capacity: Y/N Primary Support/ CareGiver: Advance Directive MRSA bacteremia Y girlfriend Advance Directives (For Healthcare) Healthcare Directive: No, patient does not have advance directive for healthcare treatment Information Provided on Healthcare Directives: Yes Information on Healthcare Directives Requested: Yes Patient Requests Assistance: Yes, will do independently Disposition Information Appropriate to transfer back: Y/N Length of Stay (in days): Estimated Date of D/C: LTC Medicaid Status: N 31 unclear N Primary Care Provider: [facility] referred: Y/N Bed Offers: Y/N Escalated to Leadership: Y/N Raffi Zabala Mobility Level: Recommended D/C Location Payor: Bedside Mobility Assessment Tool (BMAT) Bedrest or non-weight bearing orders?: No Mobility level determined: Mobility Level 4 use gait belt, walker, crutches, cane, prosthetic(s) Number of caregivers reccommended: 0 Acute hospital Payor[place] / Plan[place] / Product Type: [place] / Barriers to Discharge Cost of IV abx; escalated to hospital leadership. Transfer team working with [facility] or [place]. Plan Transfer to acute hospital setting closer to home. [employer] Epic chat preferred. 06/26/2024 15:20 06/26/24 15:18 * Magda Figueredo MD - 06/26/2024 1329 EST Brief Update Note After discussion with primary nurse, nurse assistant food service manager, and primary team, decided to re-instate off unit privileges. Emphasized policy is for one time every day for up to an hour that cannot be split. Patient must check with nursing prior to leaving to ensure no disruption to plan of care. Patient willlose these privileges indefinitely should he break the policy again and will be considered an AMA discharge. Patient apologized for his behavior and abusing the policy in the past. He expressed understanding of the policy, was able to state the policy and consequences of breaking the policy guidelines. He expressed a desire to comply and continue receiving treatment. MAGDA FIGUEREDO MD 06/26/2024 13:34 * Marleen Duran, DAVID - 06/26/2024 1110 EST Marcos approached me his RN this morning and requested to speak to providers in regards to regaining off the unit privileges. Patient apologized for prior uncooperativeness and seemed remorseful. After speaking with the [place] [facility] assistant food service manager and [employer] (provider), it has been determined that patient can go off the unit only once per day for up to an hour. Patient must check in with their nurse beforeleaving the unit and must sign in and out. If Marcos does not follow the policy described above andis not respectful to staff, his off the unit privileges will be revoked for the duration of his current hospital stay. I went over all of this information with the patient and he stated he would in co mpliance. Provider Dakota Figueredo said she plans to visit the patient around noon to reiterate this information. * Virginia Downey MD MPH - 06/26/2024 0639 EST Internal Medicine Progress Note Service Date: 06/26/24 Admit Date: 2024 Reason for Admission: 44 y.o. male admitted with a chief complaint of back pain now with a principal diagnosis of MRSA bacteremia and T10-L2 osteo-discitis w epidural abscess with c/f narrowing of spinal canal 24 Hour Events: NAEO Subjective/Objective Subjective Patient was seen and examined this morning. He is hoping to have his off unit privileges reinstated. He understands that the policy is 1 time a day for up to 1 hour. He apologizes for previously disregarding this room and not being very kind to staff. He understands that should he break the policy this time he will lose his privileges for the remainder of this hospitalization. He is on board withstarting insulin today and understands that he will continue to follow this up with his primary care physician outpatient. No other concerns at this time. Review of Systems As above Objective Vital Signs: BP Min: 113/74 Max: 143/95 BP MAP Min: 86 mm Hg Max: 104 mm Hg Pulse From Oximetry Min: 75 BPM Max: 75 BPM Resp Min: 16 Max: 16 Temp Min: 36.7 ??C (98 ??F) Max: 36.9 ??C (98.5 ??F) SpO2 Min: 95 % Max: 96 % O2 Device: None No data recorded Weight : 87.4 kg (192 lb 9.6 oz) Physical Exam General: Alert and oriented, in no acute distress HEENT: moist mucous membranes, no scleral icterus CVS: regular rate and rhythm, no murmurs appreciated Resp: normal work of breathing, clear to ausculation bilaterally Abdomen: soft, non-tender, non distended Extremities: No cyanosis or edema Neuro: moves all 4 limbs spontaneously, no gross deficits appreciated Skin: No rashes, lesions, petechiae on visible skin Access: PICC without evidence of erythema, ecchymoses, edema, tenderness, drainage Medications Reviewed Labs Reviewed Micro Reviewed Imaging Reviewed Micro: 2024: 4/4 Bcx positive MRSA @ 14hrs 05/27/2024: 4/4 Bcx positive MRSA @ 15hrs 05/29/2024: 2/4 Bcx positive MRSA @ 18hrs 05/30/2024: 2/4 Bcx positive MRSA @ 19.3hrs 06/01/2024: 4/4Bcx pos MRSA @ 17hrs & 29hrs 06/03/2024: 2/4 Bcx with one set positive MRSA @ 36.1hrs; other set with no growth to date 06/04/2024: 4/4 Bcx with one set positive MRSA @15.9hrs and 19hrs 06/05/2024: 2/4 Bcx with growth @27hrs 06/08/2024: 4/ no growth to date Assessment Marcos Camejo is a 44 y.o. male with a PMHx notable for IVDU (on suboxone), TUD, mood disorder (seroquel) who presented as transfer from [facility] ED for High Grade MRSA bacteremia c/b T10-11, L1-2 osteomyelitis, discitis, and T10-11 early phlegmon and early abscess. ID and orthopedic spine consulted. Now on ceftaroline and daptomycin due to persistent positive cultures. Currently coordinating dispo; here until end of IV abx 07/20/24 vs swing bed vs in-patient to in-patient vs [facility]. Significant barrier that other facilities do not have both ceftaroline and daptomycin. Plan #Thoracic and lumbar spinal epidural abscess/ T10-L2 osteodiscitis with prolonged High Grade MRSA bacteremia - ID consulted, final recs, Antibiotics through 07/20/2024 - IV Dapto 10mg/kg - Ceftaroline 600 q8 - Weekly LFT, CK (baseline wnl) - if leaving (AMA) without continued IV abx, plan: linezolid PO BID, ideally with <2 weeks remaining of planned course -could attempt dropping ceftaroline or dapto if transfer to [place], and monitor sxs, blood cxs if sxs #Pain management, greatly improved - Acetaminophen 1g QID - increase gabapentin to 400 mg TID - naproxen 500 BID, Cr stable - pantoprazole 20 mg daily - 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 8 mg AM and 8mg at bedtime #Constipation, improved on current regimen - miralax BID - senna 2 tablets at bedtime - suppository prn - lactulose q6 PRN #Large interatrial septal aneurysm #Small PFO and secundum ASD with L->R shunting - Noted on MARIBEL, no sequelae (stroke, HD changes, bleeding) #T2DM New this admission, A1c 6.2%, >2 FBG >126 - F/u PCP for further management - SSI #Iron Deficiency Anemia, stable - Hb 10-11 throughout hospital course - Low Fe - Start iron supplementation following acute infection Chronic/Stable: HCV, untreated Chronically Elevated liver chemistries + HCV quant on OSH records. Hep A Ab +, c/w immunity. Hep B surface Ab +; Hep B core Ab + in 2022 and negative this admission c/w prior exposure and cleared infection. HIV ab neg 04/2024. - daily CMP, Mg - OP referral at time of discharge #TUD: PRN nicotine replacement therapy Checklist: Consults: ID, med psych Diet: DIET REGULAR VTE Prophylaxis: lovenox 40 mg qd Code status: Full Code confirmed on admission; girlfriend is DPOA Discharge Plan: Potential transfer to [facility] pending, otherwise will stay for antibiotic treatment through 07/19/2024 MAGDA FIGUEREDO MD 06/26/2024 6:40 ATTENDING ATTESTATION: Date of service: 06/26/2024 I have interviewed and examined the patient. I personally reviewed laboratories studies, radiographic studies, ECG, and prior records. I discussed the case with: the medicine house staff team. I agree with and edited (in Blue, if needed) the findings and plan of care as documented in the note above. Virginia Downey MD MPH [facility] Inpatient Service 06/27/2024 8:01 * Aric Peralta MD - 06/25/2024 0748 EST Internal Medicine Progress Note Service Date: 06/25/24 Admit Date: 2024 Reason for Admission: 44 y.o. male admitted with a chief complaint of back pain now with a principal diagnosis of MRSA bacteremia and T10-L2 osteo-discitis w epidural abscess with c/f narrowing of spinal canal 24 Hour Events: NAEO Subjective/Objective Subjective No acute complaints this morning. Pain well controlled. Declines physical exam. Review of Systems A ten point review of systems was performed and was negative except for pertinentpositives noted above. Objective Vital Signs: BP Min: 117/83 Max: 128/65 BP MAP Min: 82 mm Hg Max: 94 mm Hg Pulse From Oximetry Min: 74 BPM Max: 74 BPM Resp Min: 15 Max: 16 Temp Min: 36.5 ??C (97.7 ??F) Max: 37.2 ??C (98.9 ??F) SpO2 Min: 92 % Max: 94 % O2 Device: None No data recorded Weight : 87.4 kg (192 lb 9.6 oz) Physical Exam General: patient laying in bed, in no acute distress Lungs: CTAB CV: RRR --patient declined further physical exam Medications Reviewed Labs Reviewed Micro Reviewed Imaging Reviewed Micro: 2024: 4/4 Bcx positive MRSA @ 14hrs 05/27/2024: 4/4 Bcx positive MRSA @ 15hrs 05/29/2024: 2/4 Bcx positive MRSA @ 18hrs 05/30/2024: 2/4 Bcx positive MRSA @ 19.3hrs 06/01/2024: 4/4Bcx pos MRSA @ 17hrs & 29hrs 06/03/2024: 2/4 Bcx with one set positive MRSA @ 36.1hrs; other set with no growth to date 06/04/2024: 4/4 Bcx with one set positive MRSA @15.9hrs and 19hrs 06/05/2024: 2/4 Bcx with growth @27hrs 06/08/2024: 4/4 no growth to date Assessment Marcos Camejo is a 44 y.o. male with a PMHx notable for IVDU (on suboxone), TUD, mood disorder (seroquel) who presented as transfer from [facility] ED for High Grade MRSA bacteremia c/b T10-11, L1-2 osteomyelitis, discitis, and T10-11 early phlegmon and early abscess. ID and orthopedic spine consulted. No surgical intervention indicated at this time. Now on rifampin, ceftaroline, and daptomycin due to persistent positive cultures. Cultures from 06/08 without growth. Continue to reassess quality of pain daily. Course c/b anxiety, now [facility] Currently coordinating dispo; here until end of IV abx 07/20/24 vs swing bed vs in-patient to in-patient vs [facility]. Significant barrier that other facilities do not have both ceftaroline and daptomycin. 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 06/08 Bcx w/o growth - Ortho spine consulted for neuro exams - ID consulted, final recs, Antibiotics through 07/19/2024 -d/c rifampin - IV Dapto 10mg/kg - Ceftaroline 600 q8 - Weekly LFT, CK (baseline wnl) - if leaving (AMA) without continued IV abx, plan: linezolid PO BID, ideally with <2 weeks remaining of planned course -could attempt dropping ceftaroline or dapto if transfer to [place], and monitor sxs, blood cxs if sxs - Weekly CBC, CK, LFT -PICC 06/13 (5d negative culture) - f/u repeat blood cultures 06/08 NTD - Investigating possible d/c options. Q8h infusions would likely not be possible at infusion center. Available transfer centers seem to not have daptomycin or not have ceftaroline. Discussed option of removing one antibiotic with ID. Ideally, would have one agent pulled off, then assessed for 3 days before discharging. However, if he were to have recurrent bacteremia, this would likely greatly complicate his treatment course. Possible ceftaroline could be sent with him to facilitate transfer. #Pain management, greatly improved Per discussion with ortho, patient will have pain until the vertebra fuse together. Continue to monitor for worsening pain, signs of new focal infection and modifying multimodal pain regimen. Cr slightly uptrended on ketorolac (0.66 at admisison -> 0.82 -> 0.96). Completed 5d course [id number]. 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 Neurologic exam remains intact. WBC and LFTs WNL. #Mood disorder #Anxiety Ok with seeing psychiatry team. Still having severe anxiety, feelings of panic and claustrophobia. Walking outside helps with these symptoms. He is concerned this will get worse and he will leave even though he needs to be here for antibiotic treatment. Understands hospital policy, ok to walk on the unit and we will work with him to help these symptoms. GAD7=18 and PHQ9=17 indicating severe anxiety and depression, respectively. Discussed with psychiatry team for input on medication management. 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 - F/u PCP for further management #Iron Deficiency Anemia, stable - Hb 10-11 throughout hospital course - Low Fe - Start iron supplementation following acute infection Chronic/Stable: HCV, untreated Chronically Elevated liver chemistries + HCV quant on OSH records. Hep A Ab +, c/w immunity. Hep B surface Ab +; Hep B core Ab + in 2022 and negative this admission c/w prior exposure and cleared infection. HIV ab neg 04/2024. - daily CMP, Mg - OP referral at time of discharge #TUD: PRN nicotine replacement therapy Checklist: Consults: ortho, ID, med psych, psych Diet: DIET REGULAR VTE Prophylaxis: lovenox 40 mg qd Code status: Full Code confirmed on admission; girlfriend is DPOA PT/OT: not ordered on admission Discharge Plan: in hospital for remainder of IV abx (through 07/19/2024) vs transfer to swing bed vs transfer to OSH. Current barrier is that other facilities do not have both daptomycin and ceftaroline. Have discussed with ID that he could remove one agent and continue with single coverage as long as not developing new symptoms. It would likely be most straight forward to d/c ceftaroline as daptomycin is once daily. At this time, anticipating that he may be here until completion of IV antibiotics. Possible transfer to [place], may be able to have ceftaroline sent with him ,pending coordinationwith pharmacy and CM. IF patient leaves unit, it will be considered an AMA discharge. He should be prescribed linezolid through 07/19/2024 Aric Peralta MD Internal Medicine, PGY-1 Cosigned by Hakeem Wagner MD at 06/25/2024 13:20 EST Associated attestation - Hakeem Wagner MD - 06/25/2024 1320 EST Attestation: I performed or was present during the weller or critical portions of the visit and participated in the management of the patient on 06/25/24. I agree with the findings and plan of care as documented in the resident's/fellow's note. Continuing IV antibiotics in hospital for high grade MRSA bacteremia with osteomyelitis/osteodiscitis. Will touch base with CM tomorrow to see if any updates regarding potential transfer to alternative facility closer to home. Hakeem Wagner MD 06/25/2024 13:17 * Aric Peralta MD - 06/24/2024 1244 EST Internal Medicine Progress Note Service Date: 06/24/24 Admit Date: 2024 Reason for Admission: 44 y.o. male admitted with a chief complaint of back pain now with a principal diagnosis of MRSA bacteremia and T10-L2 osteo-discitis w epidural abscess with c/f narrowing of spinal canal 24 Hour Events: NAEO Subjective/Objective Subjective No acute complaints this morning. Pain well controlled. Declines physical exam. Review of Systems A ten point review of systems was performed and was negative except for pertinentpositives noted above. Objective Vital Signs: BP Min: 113/70 Max: 118/72 BP MAP Min: 82 mm Hg Max: 94 mm Hg Pulse From Oximetry Min: 76 BPM Max: 81 BPM Resp Min: 15 Max: 18 Temp Min: 36.5 ??C (97.7 ??F) Max: 37.2 ??C (98.9 ??F) SpO2 Min: 92 % Max: 94 % O2 Device: None No data recorded Weight : 87.4 kg (192 lb 9.6 oz) Physical Exam General: patient laying in bed, in no acute distress --patient declined further physical exam Medications Reviewed Labs Reviewed Micro Reviewed Imaging Reviewed Micro: 2024: 4/4 Bcx positive MRSA @ 14hrs 05/27/2024: 4/4 Bcx positive MRSA @ 15hrs 05/29/2024: 2/4 Bcx positive MRSA @ 18hrs 05/30/2024: 2/4 Bcx positive MRSA @ 19.3hrs 06/01/2024: 4/4Bcx pos MRSA @ 17hrs & 29hrs 06/03/2024: 2/4 Bcx with one set positive MRSA @ 36.1hrs; other set with no growth to date 06/04/2024: 4/4 Bcx with one set positive MRSA @15.9hrs and 19hrs 06/05/2024: 2/4 Bcx with growth @27hrs 06/08/2024: 4/4 no growth to date Assessment Marcos Camejo is a 44 y.o. male with a PMHx notable for IVDU (on suboxone), TUD, mood disorder (seroquel) who presented as transfer from [facility] ED for High Grade MRSA bacteremia c/b T10-11, L1-2 osteomyelitis, discitis, and T10-11 early phlegmon and early abscess. ID and orthopedic spine consulted. No surgical intervention indicated at this time. Now on rifampin, ceftaroline, and daptomycin due to persistent positive cultures. Cultures from 06/08 without growth. Continue to reassess quality of pain daily. Course c/b anxiety, now [facility] Currently coordinating dispo; here until end of IV abx 07/20/24 vs swing bed vs in-patient to in-patient vs [facility]. Significant barrier that other facilities do not have both ceftaroline and daptomycin. 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 06/08 Bcx w/o growth - Ortho spine consulted for neuro exams - ID consulted, final recs, Antibiotics through 07/19/2024 -d/c rifampin - IV Dapto 10mg/kg - Ceftaroline 600 q8 - Weekly LFT, CK (baseline wnl) - if leaving (AMA) without continued IV abx, plan: linezolid PO BID, ideally with <2 weeks remaining of planned course -could attempt dropping ceftaroline or dapto if transfer to [place], and monitor sxs, blood cxs if sxs - Weekly CBC, CK, LFT -PICC 06/13 (5d negative culture) - f/u repeat blood cultures 06/08 NTD - Investigating possible d/c options. Q8h infusions would likely not be possible at infusion center. Available transfer centers seem to not have daptomycin or not have ceftaroline. Discussed option of removing one antibiotic with ID. Ideally, would have one agent pulled off, then assessed for 3 days before discharging. However, if he were to have recurrent bacteremia, this would likely greatly complicate his treatment course. Possible ceftaroline could be sent with him to facilitate transfer. #Pain management, greatly improved Per discussion with ortho, patient will have pain until the vertebra fuse together. Continue to monitor for worsening pain, signs of new focal infection and modifying multimodal pain regimen. Cr slightly uptrended on ketorolac (0.66 at admisison -> 0.82 -> 0.96). Completed 5d course [id number]. 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 Neurologic exam remains intact. WBC and LFTs WNL. #Mood disorder #Anxiety Ok with seeing psychiatry team. Still having severe anxiety, feelings of panic and claustrophobia. Walking outside helps with these symptoms. He is concerned this will get worse and he will leave even though he needs to be here for antibiotic treatment. Understands hospital policy, ok to walk on the unit and we will work with him to help these symptoms. GAD7=18 and PHQ9=17 indicating severe anxiety and depression, respectively. Discussed with psychiatry team for input on medication management. 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 - F/u PCP for further management #Iron Deficiency Anemia, stable - Hb 10-11 throughout hospital course - Low Fe - Start iron supplementation following acute infection Chronic/Stable: HCV, untreated Chronically Elevated liver chemistries + HCV quant on OSH records. Hep A Ab +, c/w immunity. Hep B surface Ab +; Hep B core Ab + in 2022 and negative this admission c/w prior exposure and cleared infection. HIV ab neg 04/2024. - daily CMP, Mg - OP referral at time of discharge #TUD: PRN nicotine replacement therapy Checklist: Consults: ortho, ID, med psych, psych Diet: DIET REGULAR VTE Prophylaxis: lovenox 40 mg qd Code status: Full Code confirmed on admission; girlfriend is DPOA PT/OT: not ordered on admission Discharge Plan: in hospital for remainder of IV abx (through 07/19/2024) vs transfer to swing bed vs transfer to OSH. Current barrier is that other facilities do not have both daptomycin and ceftaroline. Have discussed with ID that he could remove one agent and continue with single coverage as long as not developing new symptoms. It would likely be most straight forward to d/c ceftaroline as daptomycin is once daily. At this time, anticipating that he may be here until completion of IV antibiotics. Possible transfer to [place], may be able to have ceftaroline sent with him ,pending coordinationwith pharmacy and . IF patient leaves unit, it will be considered an AMA discharge. He should be prescribed linezolid through 07/19/2024 Aric Peralta MD Internal Medicine, PGY-1 Cosigned by Hakeem Wagner MD at 06/24/2024 13:51 EST Associated attestation - Hakeem Wagner MD - 06/24/2024 1351 EST Attestation: I performed or was present during the weller or critical portions of the visit and participated in the management of the patient on 06/24/24. I agree with the findings and plan of care as documented in the resident's/fellow's note. Patient asleep in the room this morning on assessment. He remains on IV antibiotics. Hakeem Wagner MD 06/24/2024 13:51 * Chang Diaz DO - 06/23/2024 1815 EST Internal Medicine Progress Note Service Date: 06/23/24 Admit Date: 2024 Reason for Admission: 44 y.o. male admitted with a chief complaint of back pain now with a principal diagnosis of MRSA bacteremia and T10-L2 osteo-discitis w epidural abscess with c/f narrowing of spinal canal 24 Hour Events: NAEO Subjective/Objective Subjective No acute complaints this morning. Pain well controlled. Declines physical exam. Will let us know ifsxs change. Review of Systems A ten point review of systems was performed and was negative except for pertinentpositives noted above. Objective Vital Signs: BP Min: 105/66 Max: 113/70 BP MAP Min: 78 mm Hg Max: 82 mm Hg Pulse From Oximetry Min: 82 BPM Max: 89 BPM Resp Min: 15 Max: 16 Temp Min: 36.5 ??C (97.7 ??F) Max: 37.2 ??C (98.9 ??F) SpO2 Min: 92 % Max: 93 % O2 Device: None No data recorded Weight : 87.4 kg (192 lb 9.6 oz) Physical Exam General: patient laying in bed, in no acute distress --patient declined further physical exam Medications Reviewed Labs Reviewed Micro Reviewed Imaging Reviewed Micro: 2024: 4/4 Bcx positive MRSA @ 14hrs 05/27/2024: 4/ Bcx positive MRSA @ 15hrs 05/29/2024: 2/ Bcx positive MRSA @ 18hrs 05/30/2024: 2/ Bcx positive MRSA @ 19.3hrs 06/01/2024: 4/4Bcx pos MRSA @ 17hrs & 29hrs 06/03/2024: 2/ Bcx with one set positive MRSA @ 36.1hrs; other set with no growth to date 06/04/2024: 4/ Bcx with one set positive MRSA @15.9hrs and 19hrs 06/05/2024: 2/ Bcx with growth @27hrs 06/08/2024: 4/ no growth to date Assessment Marcos Camejo is a 44 y.o. male with a PMHx notable for IVDU (on suboxone), TUD, mood disorder (seroquel) who presented as transfer from [facility] ED for High Grade MRSA bacteremia c/b T10-11, L1-2 osteomyelitis, discitis, and T10-11 early phlegmon and early abscess. ID and orthopedic spine consulted. No surgical intervention indicated at this time. Now on rifampin, ceftaroline, and daptomycin due to persistent positive cultures. Cultures from 06/08 without growth. Continue to reassess quality of pain daily. Course c/b anxiety, now improved with psych recommended ativan. Currently coordinating dispo; here until end of IV abx 07/20/24 vs swing bed vs in-patient to in-patient vs [facility]. Significant barrier that other facilities do not have both ceftaroline and daptomycin. 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 06/08 Bcx w/o growth - Ortho spine consulted for neuro exams - ID consulted, final recs, Antibiotics through 07/19/2024 -d/c rifampin - IV Dapto 10mg/kg - Ceftaroline 600 q8 - Weekly LFT, CK (baseline wnl) - if leaving (AMA) without continued IV abx, plan: linezolid PO BID, ideally with <2 weeks remaining of planned course -could attempt dropping ceftaroline or dapto if transfer to [place], and monitor sxs, blood cxs if sxs - Weekly CBC, CK, LFT -PICC 06/13 (5d negative culture) - f/u repeat blood cultures 06/08 NTD - Investigating possible d/c options. Q8h infusions would likely not be possible at infusion center. Available transfer centers seem to not have daptomycin or not have ceftaroline. Discussed option of removing one antibiotic with ID. Ideally, would have one agent pulled off, then assessed for 3 days before discharging. However, if he were to have recurrent bacteremia, this would likely greatly complicate his treatment course #Pain management, greatly improved Per discussion with ortho, patient will have pain until the vertebra fuse together. Continue to monitor for worsening pain, signs of new focal infection and modifying multimodal pain regimen. Cr slightly uptrended on ketorolac (0.66 at admisison -> 0.82 -> 0.96). Completed 5d course [id number]. 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 Neurologic exam remains intact. WBC and LFTs WNL. #Mood disorder #Anxiety Ok with seeing psychiatry team. Still having severe anxiety, feelings of panic and claustrophobia. Walking outside helps with these symptoms. He is concerned this will get worse and he will leave even though he needs to be here for antibiotic treatment. Understands hospital policy, ok to walk on the unit and we will work with him to help these symptoms. GAD7=18 and PHQ9=17 indicating severe anxiety and depression, respectively. Discussed with psychiatry team for input on medication management. 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 - F/u PCP for further management #Iron Deficiency Anemia, stable - Hb 10-11 throughout hospital course - Low Fe - Start iron supplementation following acute infection Chronic/Stable: HCV, untreated Chronically Elevated liver chemistries + HCV quant on OSH records. Hep A Ab +, c/w immunity. Hep B surface Ab +; Hep B core Ab + in 2022 and negative this admission c/w prior exposure and cleared infection. HIV ab neg 04/2024. - daily CMP, Mg - OP referral at time of discharge #TUD: PRN nicotine replacement therapy Checklist: Consults: ortho, ID, med psych, psych Diet: DIET REGULAR VTE Prophylaxis: lovenox 40 mg qd Code status: Full Code confirmed on admission; girlfriend is DPOA PT/OT: not ordered on admission Discharge Plan: in hospital for remainder of IV abx (through 07/19/2024) vs transfer to swing bed vs transfer to OSH. Current barrier is that other facilities do not have both daptomycin and ceftaroline. Have discussed with ID that he could remove one agent and continue with single coverage as long as not developing new symptoms. It would likely be most straight forward to d/c ceftaroline as daptomycin is once daily. At this time, anticipating that he may be here until completion of IV antibiotics. Possible transfer to [place], may be able to have ceftaroline sent with him ,pending coordinationwith pharmacy and CM. IF patient leaves unit, it will be considered an AMA discharge. He should be prescribed linezolid through 07/19/2024 Chang Diaz, DO Internal Medicine PGY-3 [facility] Secure Chat, #[id number] (via PAS) 06/23/24 18:16 Cosigned by Hakeem Wagner MD at 06/23/2024 18:24 EST Associated attestation - Hakeem Wagner MD - 06/23/2024 1824 EST Attestation: I performed or was present during the weller or critical portions of the visit and participated in the management of the patient on 06/23/24. I agree with the findings and plan of care as documented in the resident's/fellow's note. Remains in the hospital for IV antibiotics for MRSA bacteremia. Appreciate assistance in identifying potential alternative facility. Hakeem Wagner MD 06/23/2024 18:23 * Porter Nicole - 06/23/2024 1111 EST [facility] Department of Case Management and Social Work Case Management Progress Note Patient Name Level of Care and Accommodation Code: Patient Class: Medically Ready: Y/N Marcos Camejo Acute General Inpatient Continues to need IV abx Primary Dx: Decisional Capacity: Y/N Primary Support/ CareGiver: Advance Directive MRSA bacteremia Y girlfriend Advance Directives (For Healthcare) Healthcare Directive: No, patient does not have advance directive for healthcare treatment Information Provided on Healthcare Directives: Yes Information on Healthcare Directives Requested: Yes Patient Requests Assistance: Yes, will do independently Disposition Information Appropriate to transfer back: Y/N Length of Stay (in days): Estimated Date of D/C: LTC Medicaid Status: N 28 2-4? N Primary Care Provider: [facility]/SNF referred: Y/N Bed Offers: Y/N Escalated to Leadership: Y/N Raffi Zabala Mobility Level: Recommended D/C Location Payor: Bedside Mobility Assessment Tool (BMAT) Bedrest or non-weight bearing orders?: No Mobility level determined: Mobility Level 4 use gait belt, walker, crutches, cane, prosthetic(s) Number of caregivers reccommended: 0 Payor: [place] / Plan[place] / Product Type:[place] / Barriers to Discharge IV ABX dapto and ceftaroline. [facility] to be closer to home. Cost of ceftaroline is extensive requiring cost sharing between [facility] abd [facility]. Case escalated to care coordination system and traffic signal supervisor maintenance. Awaiting response from hospital leads. Plan DC to [facility] with cost sharing of iv abx. [employer] Supervisor II Epic chat preferred. 06/23/2024 11:15 06/23/24 11:11 * Aric Peralta MD - 06/22/2024 1402 EST Internal Medicine Progress Note Service Date: 06/22/24 Admit Date: 2024 Reason for Admission: 44 y.o. male admitted with a chief complaint of back pain now with a principal diagnosis of MRSA bacteremia and T10-L2 osteo-discitis w epidural abscess with c/f narrowing of spinal canal 24 Hour Events: NAEO Subjective/Objective Subjective No acute complaints this morning. Pain well controlled. Wants to sleep. Reminded he cannot leave the unit. Review of Systems A ten point review of systems was performed and was negative except for pertinentpositives noted above. Objective Vital Signs: BP Min: 111/76 Max: 144/78 BP MAP Min: 88 mm Hg Max: 89 mm Hg Pulse From Oximetry Min: 65 BPM Max: 111 BPM Resp Min: 16 Max: 18 Temp Min: 36.5 ??C (97.7 ??F) Max: 37.3 ??C (99.1 ??F) SpO2 Min: 91 % Max: 96 % O2 Device: None No data recorded Weight : 87.4 kg (192 lb 9.6 oz) Physical Exam General: patient laying in bed, in no acute distress CVS: RRR, S1+S2 normal, no murmurs/rubs/gallop appreciated Resp: Maintaining spO2 saturation on room air, clear to ausculation bilaterally Abdomen: soft, non-distended, non-tender Extremities: No cyanosis or edema. No joint swelling or erythema Neuro: moving all extremities spontaneously. Full and symmetric strength in BUE and BLE. Sensation intact to light touch in BLE. Skin: No obvious lesions on exposed skin Medications Reviewed Labs Reviewed Micro Reviewed Imaging Reviewed Micro: 2024: 4/4 Bcx positive MRSA @ 14hrs 05/27/2024: 4/4 Bcx positive MRSA @ 15hrs 05/29/2024: 2/4 Bcx positive MRSA @ 18hrs 05/30/2024: 2/ Bcx positive MRSA @ 19.3hrs 06/01/2024: 4/4Bcx pos MRSA @ 17hrs & 29hrs 06/03/2024: 2/ Bcx with one set positive MRSA @ 36.1hrs; other set with no growth to date 06/04/2024: 4/ Bcx with one set positive MRSA @15.9hrs and 19hrs 06/05/2024: 2/ Bcx with growth @27hrs 06/08/2024: 4 no growth to date Assessment Marcos Camejo is a 44 y.o. male with a PMHx notable for IVDU (on suboxone), TUD, mood disorder (seroquel) who presented as transfer from [facility] ED for High Grade MRSA bacteremia c/b T10-11, L1-2 osteomyelitis, discitis, and T10-11 early phlegmon and early abscess. ID and orthopedic spine consulted. No surgical intervention indicated at this time. Now on rifampin, ceftaroline, and daptomycin due to persistent positive cultures. Cultures from 06/08 without growth. Continue to reassess quality of pain daily. Course c/b anxiety, now improved with psych recommended ativan. Currently coordinating dispo; here until end of IV abx 07/20/24 vs swing bed vs in-patient to in-patient vs [facility]. Significant barrier that other facilities do not have both ceftaroline and daptomycin. 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 06/08 Bcx w/o growth - Ortho spine consulted for neuro exams - ID consulted, final recs, Antibiotics through 07/19/2024 -d/c rifampin - IV Dapto 10mg/kg - Ceftaroline 600 q8 - Weekly LFT, CK (baseline wnl) - if leaving without continued IV abx, plan: linezolid, ideally with <2 weeks remaining of planned course -could attempt dropping ceftaroline or dapto if transfer to [place], and monitor sxs, blood cxs if sxs - Weekly CBC, CK, LFT -PICC 06/13 (5d negative culture) - f/u repeat blood cultures 06/08 NTD - Investigating possible d/c options. Q8h infusions would likely not be possible at infusion center. Available transfer centers seem to not have daptomycin or not have ceftaroline. Discussed option of removing one antibiotic with ID. Ideally, would have one agent pulled off, then assessed for 3 days before discharging. However, if he were to have recurrent bacteremia, this would likely greatly complicate his treatment course #Pain management, greatly improved Per discussion with ortho, patient will have pain until the vertebra fuse together. Continue to monitor for worsening pain, signs of new focal infection and modifying multimodal pain regimen. Cr slightly uptrended on ketorolac (0.66 at admisison -> 0.82 -> 0.96). Completed 5d course [id number]. 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 Neurologic exam remains intact. WBC and LFTs WNL. #Mood disorder #Anxiety Ok with seeing psychiatry team. Still having severe anxiety, feelings of panic and claustrophobia. Walking outside helps with these symptoms. He is concerned this will get worse and he will leave even though he needs to be here for antibiotic treatment. Understands hospital policy, ok to walk on the unit and we will work with him to help these symptoms. GAD7=18 and PHQ9=17 indicating severe anxiety and depression, respectively. Discussed with psychiatry team for input on medication management. 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 - F/u PCP for further management #Iron Deficiency Anemia, stable - Hb 10-11 throughout hospital course - Low Fe - Start iron supplementation following acute infection Chronic/Stable: HCV, untreated Chronically Elevated liver chemistries + HCV quant on OSH records. Hep A Ab +, c/w immunity. Hep B surface Ab +; Hep B core Ab + in 2022 and negative this admission c/w prior exposure and cleared infection. HIV ab neg 04/2024. - daily CMP, Mg - OP referral at time of discharge #TUD: PRN nicotine replacement therapy Checklist: Consults: ortho, ID, med psych, psych Diet: DIET REGULAR VTE Prophylaxis: lovenox 40 mg qd Code status: Full Code confirmed on admission; girlfriend is DPOA PT/OT: not ordered on admission Discharge Plan: in hospital for remainder of IV abx (through 07/19/2024) vs transfer to swing bed vs transfer to OSH. Current barrier is that other facilities do not have both daptomycin and ceftaroline. Have discussed with ID that he could remove one agent and continue with single coverage as long as not developing new symptoms. It would likely be most straight forward to d/c ceftaroline as daptomycin is once daily. At this time, anticipating that he may be here until completion of IV antibiotics. Possible transfer to [place], may be able to have ceftaroline sent with him ,pending coordinationwith pharmacy and CM. IF patient leaves unit, it will be considered an AMA discharge. He should be prescribed linezolid through 07/19/2024 Aric Peralta MD Internal Medicine, PGY-1 Cosigned by Hakeem Wagner MD at 06/22/2024 14:43 EST Associated attestation - Hakeem Wagner MD - 06/22/2024 1443 EST Attestation: I performed or was present during the weller or critical portions of the visit and participated in the management of the patient on 06/22/24. I agree with the findings and plan of care as documented in the resident's/fellow's note. Patient doing well, no distress. Continuing with IV antibiotics. Continuing to explore alternative discharge options for continued IV antibiotic support. Hakeem Wagner MD 06/22/2024 14:42 * Hakeem Wagner MD - 06/22/2024 1309 EST Request for Documentation Clarification [facility] Marcos Camejo ; VISIT [id number]; ACCT [id number] Final Query Response Sent: 06/22/24 13:06 EST From: HAKEEM WAGNER MD Query question: Based on your professional medical judgement and review of the clinical indicators listed below, can you confirm this diagnosis? Please complete by selecting one of the options below. Provider response: Sepsis is ruled in Preliminary Query Response Sent: 06/21/24 09:29 EST From: Aric Peralta M.D. Query question: Based on your professional medical judgement and review of the clinical indicators listed below, can you confirm this diagnosis? Please complete by selecting one of the options below. Original Query Sent: 06/14/24 11:57 EST From: GLORIA CARRERO RN To: Aric Peralta M.D., HAKEEM WAGNER MD Reason for Clarification Per the medical record the patient presented with MRSA bacteremia and T10-L2 osteo-discitis w epidural abscess with c/f narrowing of spinal canal. Additionally, sepsis due to MRSA without organ dysfunction is included in the active hospital problems list but is not addressed in team notes. Based on your professional medical judgement and review of the clinical indicators listed below, can you confirm this diagnosis? Please complete by selecting one of the options below. * Sepsis is ruled in * Sepsis has been ruled out * Other explanation of clinical findings (please specify) Clinical Information * Signs and Symptoms * WBC count: 6.01-8.17 K/cmm during this admission * Vital signs: During this admission: Temp: 36.1-37.1 C Heart rate: 67-95 BPM Resp rate: 12-20 * Labs: 05/26/24 14:32-Procalcitonin: 0.30 ng/mL 05/26/24 14:02-P-Odytvgzn Protein: 210.7 (H) * Other: Per ED note 05/26/24: '' He is not in acute distress ''...'' He is not ill-appearing or toxic-appearing. '' Per H&P 05/26/24: '' ...presented as ED to ED transfer from [facility] for high grade MRSAbacteremia and T10-L2 osteo-discitis w epidural abscess with c/f narrowing of spinal canal. Afebrile, HD stable on arrival. No neurologic deficits/cauda equina. '' * Risk Factors * Other: Per H&P 05/26/24: '' Per transfer paperwork, he was seen in the ED for fever and new back pain '' * Treatment * Other: Per team note 06/13/24: '' -IV Dapto 10mg/kg - Ceftaroline 600 q8 '' * Porter Nicole - 06/21/2024 1122 EST [facility] Department of Case Management and Social Work Case Management Progress Note Patient Name Level of Care and Accommodation Code: Patient Class: Medically Ready: Y/N Marcos Camejo Acute General Inpatient N Primary Dx: Decisional Capacity: Y/N Primary Support/ CareGiver: Advance Directive MRSA bacteremia Y girlfriend Advance Directives (For Healthcare) Healthcare Directive: No, patient does not have advance directive for healthcare treatment Information Provided on Healthcare Directives: Yes Information on Healthcare Directives Requested: Yes Patient Requests Assistance: Yes, will do independently Disposition Information Appropriate to transfer back: Y/N Length of Stay (in days): Estimated Date of D/C: LTC Medicaid Status: N 26 2-4 N Primary Care Provider: [facility]/SNF referred: Y/N Bed Offers: Y/N Escalated to Leadership: Y/Spencer Zabala Mobility Level: Recommended D/C Location Payor: Bedside Mobility Assessment Tool (BMAT) Bedrest or non-weight bearing orders?: No Mobility level determined: Mobility Level 4 use gait belt, walker, crutches, cane, prosthetic(s) Number of caregivers reccommended: 0 [facility] Pay[place] / Plan[place] / Product Type: [place] / Barriers to Discharge Transfer to OSH-[facility] to be closer to home. CM completed [id number]. [facility] can accommodate Daptomycin: Ceftaroline is the one they do not have on formulary but are checking with pharmacy to see if it is something that can be ordered Plan DC OSH for ongoing iv ABX . CM contact [facility] for options to supply pt with Ceftaroline. [facility] checking cost and consulting with Pharm traffic signal supervisor maintenance. [employer] may be able to order picker abx and bring to [facility]. [employer] Le[employer] Supervisor II Epic chat preferred. 06/21/2024 11:25 06/21/24 11:22 * Aric Peralta MD - 06/21/2024 0943 EST Internal Medicine Progress Note Service Date: 06/21/24 Admit Date: 2024 Reason for Admission: 44 y.o. male admitted with a chief complaint of back pain now with a principal diagnosis of MRSA bacteremia and T10-L2 osteo-discitis w epidural abscess with c/f narrowing of spinal canal 24 Hour Events: Left the unit multiple times which is against Time Off Unit policy. Reminded of policy and agreeable. Subjective/Objective Subjective In pain during early AM interview. Did not use any dilaudid yesterday. Thinks the pain will improvewhen he gets his morning baclofen. Pain similar in character to previous. Continues to deny radicular pain or weakness. Last BM 06/20. Later in afternoon, had left the unit multiple times. Discussed with patient that his off unit privileges are revoked. He understands this. Stated that if he were to leave the unit again, it would beconsidered an AMA discharge. He understands this. He states he will stay in his room so that he cancontinue receiving IV antibiotics. This was discussed with CM, Copyright Expert, APC, primary nurse,primary team. Review of Systems A ten point review of systems was performed and was negative except for pertinentpositives noted above. Objective Vital Signs: BP Min: 111/71 Max: 119/86 BP MAP Min: 83 mm Hg Max: 93 mm Hg Pulse From Oximetry Min: 75 BPM Max: 86 BPM Resp Min: 18 Max: 18 Temp Min: 36.4 ??C (97.5 ??F) Max: 36.7 ??C (98 ??F) SpO2 Min: 93 % Max: 95 % O2 Device: None No data recorded Weight : 87.4 kg (192 lb 9.6 oz) Physical Exam General: patient laying in bed, in no acute distress CVS: RRR, S1+S2 normal, no murmurs/rubs/gallop appreciated Resp: Maintaining spO2 saturation on room air, clear to ausculation bilaterally Abdomen: soft, non-distended, non-tender Extremities: No cyanosis or edema. No joint swelling or erythema Neuro: moving all extremities spontaneously. Full and symmetric strength in BUE and BLE. Sensation intact to light touch in BLE. Skin: No obvious lesions on exposed skin Medications Reviewed Labs Reviewed Micro Reviewed Imaging Reviewed Micro: 2024: 4/4 Bcx positive MRSA @ 14hrs 05/27/2024: 4/4 Bcx positive MRSA @ 15hrs 05/29/2024: 2/4 Bcx positive MRSA @ 18hrs 05/30/2024: 2/4 Bcx positive MRSA @ 19.3hrs 06/01/2024: 4/4Bcx pos MRSA @ 17hrs & 29hrs 06/03/2024: 2/4 Bcx with one set positive MRSA @ 36.1hrs; other set with no growth to date 06/04/2024: 4/4 Bcx with one set positive MRSA @15.9hrs and 19hrs 06/05/2024: 2/4 Bcx with growth @27hrs 06/08/2024: 4/4 no growth to date Assessment Marcos Camejo is a 44 y.o. male with a PMHx notable for IVDU (on suboxone), TUD, mood disorder (seroquel) who presented as transfer from [facility] ED for High Grade MRSA bacteremia c/b T10-11, L1-2 osteomyelitis, discitis, and T10-11 early phlegmon and early abscess. ID and orthopedic spine consulted. No surgical intervention indicated at this time. Now on rifampin, ceftaroline, and daptomycin due to persistent positive cultures. Cultures from 06/08 without growth. Continue to reassess quality of pain daily. Course c/b anxiety, [facility]; here until end of IV abx 07/20/24 vs swing bed vs in-patient to in-patient vs [facility]. Significant barrier that other facilities do not have both ceftaroline and daptomycin. 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 06/08 Bcx w/o growth - Ortho spine consulted for neuro exams - ID consulted, final recs, Antibiotics through 07/19/2024 -d/c rifampin - IV Dapto 10mg/kg - Ceftaroline 600 q8 - Weekly LFT, CK (baseline wnl) - if leaving without continued IV abx, plan: linezolid, ideally with <2 weeks remaining of planned course -could attempt dropping ceftaroline or dapto if transfer to [place], and monitor sxs, blood cxs if sxs - Weekly CBC, CK, LFT -PICC 06/13 (5d negative culture) - f/u repeat blood cultures 06/08 NTD - Investigating possible d/c options. Q8h infusions would likely not be possible at infusion center. Available transfer centers seem to not have daptomycin or not have ceftaroline. Discussed option of removing one antibiotic with ID. Ideally, would have one agent pulled off, then assessed for 3 days before discharging. However, if he were to have recurrent bacteremia, this would likely greatly complicate his treatment course #Pain management Per discussion with ortho, patient will have pain until the vertebra fuse together. Continue to monitor for worsening pain, signs of new focal infection and modifying multimodal pain regimen. Cr slightly uptrended on ketorolac (0.66 at admisison -> 0.82 -> 0.96). Completed 5d course [id number]. 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 Neurologic exam remains intact. WBC and LFTs WNL. #Mood disorder #Anxiety Ok with seeing psychiatry team. Still having severe anxiety, feelings of panic and claustrophobia. Walking outside helps with these symptoms. He is concerned this will get worse and he will leave even though he needs to be here for antibiotic treatment. Understands hospital policy, ok to walk on the unit and we will work with him to help these symptoms. GAD7=18 and PHQ9=17 indicating severe anxiety and depression, respectively. Discussed with psychiatry team for input on medication management. 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 - F/u PCP for further management #Iron Deficiency Anemia, stable - Hb 10-11 throughout hospital course - Low Fe - Start iron supplementation following acute infection Chronic/Stable: HCV, untreated Chronically Elevated liver chemistries + HCV quant on OSH records. Hep A Ab +, c/w immunity. Hep B surface Ab +; Hep B core Ab + in 2022 and negative this admission c/w prior exposure and cleared infection. HIV ab neg 04/2024. - daily CMP, Mg - OP referral at time of discharge #TUD: PRN nicotine replacement therapy Checklist: Consults: ortho, ID, med psych, psych Diet: DIET REGULAR VTE Prophylaxis: lovenox 40 mg qd Code status: Full Code confirmed on admission; girlfriend is DPOA PT/OT: not ordered on admission Discharge Plan: in hospital for remainder of IV abx (through 07/19/2024) vs transfer to swing bed vs transfer to OSH. Current barrier is that other facilities do not have both daptomycin and ceftaroline. Have discussed with ID that he could remove one agent and continue with single coverage as long as not developing new symptoms. It would likely be most straight forward to d/c ceftaroline as daptomycin is once daily. At this time, anticipating that he may be here until completion of IV antibiotics. Possible transfer to [place], may be able to have ceftaroline sent with him ,pending coordinationwith pharmacy and CM. IF patient leaves unit, it will be considered an AMA discharge. He should be prescribed linezolid through 07/19/2024 Aric Peralta MD Internal Medicine, PGY-1 Cosigned by Hakeem Wagner MD at 06/21/2024 19:05 EST Associated attestation - Hakeem Wagner MD - 06/21/2024 1905 EST Attestation: I performed or was present during the weller or critical portions of the visit and participated in the management of the patient on 06/21/24. I agree with the findings and plan of care as documented in the resident's/fellow's note. Multidisciplinary meeting held today with primary team, primary nurse, nurse assistant food service manager, and hospital leadership regarding patient violation of off floor policy. Ultimately decision made to review policy with patient to emphasize safety concerns and that if policy is violated again, this would be consistent with elopement and thus discharge from the hospital. Patient verbalized understanding of policy including understanding that if he were to leave, this would result in discharge. Hakeem Wagner MD 06/21/2024 19:00 * Aric Peralta MD - 06/20/2024 1635 EST Internal Medicine Progress Note Service Date: 06/20/24 Admit Date: 2024 Reason for Admission: 44 y.o. male admitted with a chief complaint of back pain now with a principal diagnosis of MRSA bacteremia and T10-L2 osteo-discitis w epidural abscess with c/f narrowing of spinal canal 24 Hour Events: NAEO Subjective/Objective Subjective Pain better controlled this morning. Only used one PRN dilaudid yesterday and hopes to use none today. Last BM 06/19. Review of Systems A ten point review of systems was performed and was negative except for pertinentpositives noted above. Objective Vital Signs: BP Min: 124/75 Max: 124/75 BP MAP Min: 89 mm Hg Max: 89 mm Hg Pulse From Oximetry Min: 83 BPM Max: 83 BPM Resp Min: 18 Max: 18 Temp Min: 36.8 ??C (98.2 ??F) Max: 36.8 ??C (98.2 ??F) SpO2 Min: 95 % Max: 95 % O2 Device: None No data recorded Weight : 87.4 kg (192 lb 9.6 oz) Physical Exam General: patient laying in bed, in no acute distress CVS: RRR, S1+S2 normal, no murmurs/rubs/gallop appreciated Resp: Maintaining spO2 saturation on room air, clear to ausculation bilaterally Abdomen: soft, non-distended, non-tender Extremities: No cyanosis or edema. No joint swelling or erythema Neuro: moving all extremities spontaneously. Full and symmetric strength in BUE and BLE. Sensation intact to light touch in BLE. Skin: No obvious lesions on exposed skin Medications Reviewed Labs Reviewed Micro Reviewed Imaging Reviewed Micro: 2024: 4/4 Bcx positive MRSA @ 14hrs 05/27/2024: 4/4 Bcx positive MRSA @ 15hrs 05/29/2024: 2/4 Bcx positive MRSA @ 18hrs 05/30/2024: 2/4 Bcx positive MRSA @ 19.3hrs 06/01/2024: 4/4Bcx pos MRSA @ 17hrs & 29hrs 06/03/2024: 2/4 Bcx with one set positive MRSA @ 36.1hrs; other set with no growth to date 06/04/2024: 4/4 Bcx with one set positive MRSA @15.9hrs and 19hrs 06/05/2024: 2/4 Bcx with growth @27hrs 06/08/2024: 4/ no growth to date Assessment Marcos Camejo is a 44 y.o. male with a PMHx notable for IVDU (on suboxone), TUD, mood disorder (seroquel) who presented as transfer from [facility] ED for High Grade MRSA bacteremia c/b T10-11, L1-2 osteomyelitis, discitis, and T10-11 early phlegmon and early abscess. ID and orthopedic spine consulted. No surgical intervention indicated at this time. Now on rifampin, ceftaroline, and daptomycin due to persistent positive cultures. Cultures from 06/08 without growth. Continue to reassess quality of pain daily. Course c/b anxiety, now improved with psych recommended ativan. Currently coordinating dispo; here until end of IV abx 07/20/24 vs swing bed vs in-patient to in-patient vs [facility]. Significant barrier that other facilities do not have both ceftaroline and daptomycin. 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 06/08 Bcx w/o growth - Ortho spine consulted for neuro exams - ID consulted, final recs, Antibiotics through 07/19/2024 -d/c rifampin - IV Dapto 10mg/kg - Ceftaroline 600 q8 - Weekly LFT, CK (baseline wnl) - if leaving without continued IV abx, plan: linezolid, ideally with <2 weeks remaining of planned course -could attempt dropping ceftaroline or dapto if transfer to [place], and monitor sxs, blood cxs if sxs - Weekly CBC, CK, LFT -PICC 06/13 (5d negative culture) - f/u repeat blood cultures 06/08 NTD - Investigating possible d/c options. Q8h infusions would likely not be possible at infusion center. Available transfer centers seem to not have daptomycin or not have ceftaroline. Discussed option of removing one antibiotic with ID. Ideally, would have one agent pulled off, then assessed for 3 days before discharging. However, if he were to have recurrent bacteremia, this would likely greatly complicate his treatment course #Pain management Per discussion with ortho, patient will have pain until the vertebra fuse together. Continue to monitor for worsening pain, signs of new focal infection and modifying multimodal pain regimen. Cr slightly uptrended on ketorolac (0.66 at admisison -> 0.82 -> 0.96). Completed 5d course [id number]. 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 Neurologic exam remains intact. WBC and LFTs WNL. #Mood disorder #Anxiety Ok with seeing psychiatry team. Still having severe anxiety, feelings of panic and claustrophobia. Walking outside helps with these symptoms. He is concerned this will get worse and he will leave even though he needs to be here for antibiotic treatment. Understands hospital policy, ok to walk on the unit and we will work with him to help these symptoms. GAD7=18 and PHQ9=17 indicating severe anxiety and depression, respectively. Discussed with psychiatry team for input on medication management. 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 - F/u PCP for further management #Iron Deficiency Anemia, stable - Hb 10-11 throughout hospital course - Low Fe - Start iron supplementation following acute infection Chronic/Stable: HCV, untreated Chronically Elevated liver chemistries + HCV quant on OSH records. Hep A Ab +, c/w immunity. Hep B surface Ab +; Hep B core Ab + in 2022 and negative this admission c/w prior exposure and cleared infection. HIV ab neg 04/2024. - daily CMP, Mg - OP referral at time of discharge #TUD: PRN nicotine replacement therapy Checklist: Consults: ortho, ID, med psych, psych Diet: DIET REGULAR VTE Prophylaxis: lovenox 40 mg qd Code status: Full Code confirmed on admission; girlfriend is DPOA PT/OT: not ordered on admission Discharge Plan: in hospital for remainder of IV abx (through 07/19/2024) vs transfer to swing bed vs transfer to OSH. Current barrier is that other facilities do not have both daptomycin and ceftaroline. Have discussed with ID that he could remove one agent and continue with single coverage as long as not developing new symptoms. It would likely be most straight forward to d/c ceftaroline as daptomycin is once daily. At this time, anticipating that he may be here until completion of IV antibiotics. Aric Peralta MD Internal Medicine, PGY-1 Cosigned by Hakeem Wagner MD at 06/20/2024 16:59 EST Associated attestation - Hakeem Wagner MD - 06/20/2024 1659 EST Attestation: I performed or was present during the weller or critical portions of the visit and participated in the management of the patient on 06/20/24. I agree with the findings and plan of care as documented in the resident's/fellow's note. Continuing to taper dilaudid, pain is much improving. Remains hospitalized for IV antibiotics with ceftaroline and daptomycin. Hakeem Wagner MD 06/20/2024 14:59 * Porter Nicole - 06/20/2024 0845 EST CM spoke with pt this morning about transfer to [facility]. Pt in agreement with transfer. Transfer initiated thru [facility]. [facility] did not offer yet due to options closer to patient's home- [place] and [facility]. Awaiting outcomes from referrals to those hospitals. MERRY [employer] Supervisor II Epic chat preferred. 06/20/2024 8:46 * Lindsey Baker RN - 06/20/2024 0417 EST Data: HD#25 for MRSA bacteremia and T10-L2 osteo-discitis w epidural abscess. Action: IV abx given Response: Patient had uneventful night. Remains independent on and off unit. Compliant with off unit privileges. LINDSEY BAKER RN 06/20/2024 4:17 * Porter Nicole - 06/19/2024 1533 EST [facility] Department of Case Management and Social Work Case Management Progress Note Patient Name Level of Care and Accommodation Code: Patient Class: Medically Ready: Y/N Marcos Camejo [facility] Inpatient Primary Dx: Decisional Capacity: Y/N Primary Support/ CareGiver: Advance Directive MRSA bacteremia Y girlfriend Advance Directives (For Healthcare) Healthcare Directive: No, patient does not have advance directive for healthcare treatment Information Provided on Healthcare Directives: Yes Information on Healthcare Directives Requested: Yes Patient Requests Assistance: Yes, will do independently Disposition Information Appropriate to transfer back: Y/N Length of Stay (in days): Estimated Date of D/C: LTC Medicaid Status: 24 2-4 Primary Care Provider: [facility] referred: Y/N Bed Offers: Y/N Escalated to Leadership: Y/N Raffi Zabala Mobility Level: Recommended D/C Location Payor: Bedside Mobility Assessment Tool (BMAT) Bedrest or non-weight bearing orders?: No Mobility level determined: Mobility Level 4 use gait belt, walker, crutches, cane, prosthetic(s) Number of caregivers reccommended: 0 Payor: [place] / Plan[place] / Product Type:[place] GL / Barriers to Discharge IV abx until 07/19/2024. IV Dapto 10mg/kg - Ceftaroline 600 q8 Plan CM requested transfer to [facility] via [id number] form today. CM will continue to follow pt and provide support for DC planning. [employer] Supervisor II Epic chat preferred. 06/19/2024 15:38 06/19/24 15:33 * Aric Peralta MD - 06/19/2024 0733 EST Internal Medicine Progress Note Service Date: 06/19/24 Admit Date: 2024 Reason for Admission: 44 y.o. male admitted with a chief complaint of back pain now with a principal diagnosis of MRSA bacteremia and T10-L2 osteo-discitis w epidural abscess with c/f narrowing of spinal canal 24 Hour Events: NAEO Subjective/Objective Subjective Pain better controlled this morning. No longer having the R sided pain since starting robaxin. Painin back the same character as previously and continues to deny radicular pain, numbness, weakness. Review of Systems A ten point review of systems was performed and was negative except for pertinentpositives noted above. Objective Vital Signs: BP Min: 117/73 Max: 139/81 BP MAP Min: 85 mm Hg Max: 95 mm Hg Pulse From Oximetry Min: 79 BPM Max: 87 BPM Resp Min: 16 Max: 17 Temp Min: 36.6 ??C (97.9 ??F) Max: 36.9 ??C (98.5 ??F) SpO2 Min: 93 % Max: 97 % O2 Device: None No data recorded Weight : 87.4 kg (192 lb 9.6 oz) Physical Exam General: patient laying in bed, in no acute distress CVS: RRR, S1+S2 normal, no murmurs/rubs/gallop appreciated Resp: Maintaining spO2 saturation on room air, clear to ausculation bilaterally Abdomen: soft, non-distended, non-tender Extremities: No cyanosis or edema. No joint swelling or erythema Neuro: moving all extremities spontaneously. Full and symmetric strength in BUE and BLE. Sensation intact to light touch in BLE. Skin: No obvious lesions on exposed skin Medications Reviewed Labs Reviewed Micro Reviewed Imaging Reviewed Micro: 2024: 4/4 Bcx positive MRSA @ 14hrs 05/27/2024: 4/4 Bcx positive MRSA @ 15hrs 05/29/2024: 2/4 Bcx positive MRSA @ 18hrs 05/30/2024: 2/4 Bcx positive MRSA @ 19.3hrs 06/01/2024: 4/4Bcx pos MRSA @ 17hrs & 29hrs 06/03/2024: 2/4 Bcx with one set positive MRSA @ 36.1hrs; other set with no growth to date 06/04/2024: 4/4 Bcx with one set positive MRSA @15.9hrs and 19hrs 06/05/2024: 2/4 Bcx with growth @27hrs 06/08/2024: 4 no growth to date Assessment Marcos Camejo is a 44 y.o. male with a PMHx notable for IVDU (on suboxone), TUD, mood disorder (seroquel) who presented as transfer from [facility] ED for High Grade MRSA bacteremia c/b T10-11, L1-2 osteomyelitis, discitis, and T10-11 early phlegmon and early abscess. ID and orthopedic spine consulted. No surgical intervention indicated at this time. Now on rifampin, ceftaroline, and daptomycin due to persistent positive cultures. Cultures from 06/08 without growth. Continue to reassess quality of pain daily. Course c/b anxiety, now improved with psych recommended ativan. Currently coordinating dispo; here until end of IV abx 07/20/24 vs swing bed vs in-patient to in-patient vs [facility]. Significant barrier that other facilities do not have both ceftaroline and daptomycin. 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 06/08 Bcx w/o growth - Ortho spine consulted for neuro exams - ID consulted, final recs, Antibiotics through 07/19/2024 -d/c rifampin - IV Dapto 10mg/kg - Ceftaroline 600 q8 - Weekly LFT, CK (baseline wnl) - if leaving without continued IV abx, plan: linezolid, ideally with <2 weeks remaining of planned course -could attempt dropping ceftaroline or dapto if transfer to [place], and monitor sxs, blood cxs if sxs - Weekly CBC, CK, LFT -PICC 06/13 (5d negative culture) - f/u repeat blood cultures 06/08 NTD - Investigating possible d/c options. Q8h infusions would likely not be possible at infusion center. Available transfer centers seem to not have daptomycin or not have ceftaroline. Discussed option of removing one antibiotic with ID. Ideally, would have one agent pulled off, then assessed for 3 days before discharging. However, if he were to have recurrent bacteremia, this would likely greatly complicate his treatment course #Pain management Per discussion with ortho, patient will have pain until the vertebra fuse together. Continue to monitor for worsening pain, signs of new focal infection and modifying multimodal pain regimen. Cr slightly uptrended on ketorolac (0.66 at admisison -> 0.82 -> 0.96). Completed 5d course [id number]. 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 Neurologic exam remains intact. WBC and LFTs WNL. #Mood disorder #Anxiety Ok with seeing psychiatry team. Still having severe anxiety, feelings of panic and claustrophobia. Walking outside helps with these symptoms. He is concerned this will get worse and he will leave even though he needs to be here for antibiotic treatment. Understands hospital policy, ok to walk on the unit and we will work with him to help these symptoms. GAD7=18 and PHQ9=17 indicating severe anxiety and depression, respectively. Discussed with psychiatry team for input on medication management. 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 - F/u PCP for further management #Iron Deficiency Anemia, stable - Hb 10-11 throughout hospital course - Low Fe - Start iron supplementation following acute infection Chronic/Stable: HCV, untreated Chronically Elevated liver chemistries + HCV quant on OSH records. Hep A Ab +, c/w immunity. Hep B surface Ab +; Hep B core Ab + in 2022 and negative this admission c/w prior exposure and cleared infection. HIV ab neg 04/2024. - daily CMP, Mg - OP referral at time of discharge #TUD: PRN nicotine replacement therapy Checklist: Consults: ortho, ID, med psych, psych Diet: DIET REGULAR VTE Prophylaxis: lovenox 40 mg qd Code status: Full Code confirmed on admission; girlfriend is DPOA PT/OT: not ordered on admission Discharge Plan: in hospital for remainder of IV abx (through 07/19/2024) vs transfer to swing bed vs transfer to OSH. Current barrier is that other facilities do not have both daptomycin and ceftaroline. Have discussed with ID that he could remove one agent and continue with single coverage as long as not developing new symptoms. It would likely be most straight forward to d/c ceftaroline as daptomycin is once daily. At this time, anticipating that he may be here until completion of IV antibiotics. Aric Peralta MD Internal Medicine, PGY-1 Cosigned by Hakeem Wagner MD at 06/19/2024 15:05 EST Associated attestation - Hakeem Wagner MD - 06/19/2024 1505 EST Attestation: I performed or was present during the weller or critical portions of the visit and participated in the management of the patient on 06/19/24. I agree with the findings and plan of care as documented in the resident's/fellow's note. Patient admitted for high grade MRSA bacteremia on ceftaroline and daptomycin. He requires hospitalization through 07/19. We are working on tapering dilaudid requirements. Hakeem Wagner MD 06/19/2024 15:04 * Repp, Johan Hampton MD - 06/18/2024 0702 EST Internal Medicine Progress Note Service Date: 06/18/24 Admit Date: 2024 Reason for Admission: 44 y.o. male admitted with a chief complaint of back pain now with a principal diagnosis of MRSA bacteremia and T10-L2 osteo-discitis w epidural abscess with c/f narrowing of spinal canal 24 Hour Events: NAEO Subjective/Objective Subjective Some change in his usual low back pain to now being more right sided posterior flank pain that wraps around to right upper quadrant of abdomen with some increased tenderness to palpation of the abdomen and wincing in pain on bending over to wipe in the bathroom. No new weakness numbness or tingling. No fever or chills. Otherwise asymptomatic. Able to use the wheelchair to get outside this morning without much issue. Requesting a back brace per RN sent abdominal binder if this might help. Review of Systems A ten point review of systems was performed and was negative except for pertinentpositives noted above. Objective Vital Signs: BP Min: 107/73 Max: 125/72 BP MAP Min: 79 mm Hg Max: 87 mm Hg Pulse From Oximetry Min: 82 BPM Max: 104 BPM Resp Min: 15 Max: 17 Temp Min: 36.8 ??C (98.2 ??F) Max: 37 ??C (98.6 ??F) SpO2 Min: 92 % Max: 95 % O2 Device: None No data recorded Weight : 87.4 kg (192 lb 9.6 oz) Physical Exam General: patient laying in bed, in no acute distress CVS: RRR, S1+S2 normal, no murmurs/rubs/gallop appreciated Resp: Maintaining spO2 saturation on room air, clear to ausculation bilaterally Abdomen: mild to moderate TTE RUQ with +Aron's and TTPercussion at R flank Extremities: No cyanosis or edema. No joint swelling or erythema Neuro: moving all extremities spontaneously. Full and symmetric strength in BUE and BLE. Sensation intact to light touch in BLE. Skin: No obvious lesions on exposed skin Medications Reviewed Labs Reviewed Micro Reviewed Imaging Reviewed Micro: 2024: 4/4 Bcx positive MRSA @ 14hrs 05/27/2024: 4/4 Bcx positive MRSA @ 15hrs 05/29/2024: 2/4 Bcx positive MRSA @ 18hrs 05/30/2024: 2/4 Bcx positive MRSA @ 19.3hrs 06/01/2024: 4/4Bcx pos MRSA @ 17hrs & 29hrs 06/03/2024: 2/4 Bcx with one set positive MRSA @ 36.1hrs; other set with no growth to date 06/04/2024: 4/4 Bcx with one set positive MRSA @15.9hrs and 19hrs 06/05/2024: 2/ Bcx with growth @27hrs 06/08/2024: 4/ no growth to date Assessment Marcos Camejo is a 44 y.o. male with a PMHx notable for IVDU (on suboxone), TUD, mood disorder (seroquel) who presented as transfer from [facility] ED for High Grade MRSA bacteremia c/b T10-11, L1-2 osteomyelitis, discitis, and T10-11 early phlegmon and early abscess. ID and orthopedic spine consulted. No surgical intervention indicated at this time. Now on rifampin, ceftaroline, and daptomycin due to persistent positive cultures. Cultures from 06/08 without growth. Continue to reassess quality of pain daily. Course c/b anxiety, now improved with psych recommended ativan. Currently coordinating dispo; here until end of IV abx 07/20/24 vs swing bed vs in-patient to in-patient vs [facility]. Significant barrier that other facilities do not have both ceftaroline and daptomycin. Labs relatively normal today with down trending CRP, suspect pain is MSK and will tx with relaxantsand abd binder per patient request. 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 06/08 Bcx w/o growth - Ortho spine consulted for neuro exams - ID consulted, final recs, Antibiotics through 07/19/2024 -d/c rifampin - IV Dapto 10mg/kg - Ceftaroline 600 q8 - Weekly LFT, CK (baseline wnl) - if leaving without continued IV abx, plan: linezolid, ideally with <2 weeks remaining of planned course -could attempt dropping ceftaroline or dapto if transfer to [place], and monitor sxs, blood cxs if sxs - Weekly CBC, CK, LFT -PICC order 06/13 (5d negative culture) - f/u repeat blood cultures 06/08 NTD - Investigating possible d/c options. Q8h infusions would likely not be possible at infusion center. Available transfer centers seem to not have daptomycin or not have ceftaroline. Discussed option of removing one antibiotic with ID. Ideally, would have one agent pulled off, then assessed for 3 days before discharging. #Pain management Per discussion with ortho, patient will have pain until the vertebra fuse together. Continue to monitor for worsening pain, signs of new focal infection and modifying multimodal pain regimen. Cr slightly uptrended on ketorolac (0.66 at admisison -> 0.82 -> 0.96). Completed 5d course [id number]. 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 Neurologic exam remains intact. WBC and LFTs WNL. #Mood disorder #Anxiety Ok with seeing psychiatry team. Still having severe anxiety, feelings of panic and claustrophobia. Walking outside helps with these symptoms. He is concerned this will get worse and he will leave even though he needs to be here for antibiotic treatment. Understands hospital policy, ok to walk on the unit and we will work with him to help these symptoms. GAD7=18 and PHQ9=17 indicating severe anxiety and depression, respectively. Discussed with psychiatry team for input on medication management. 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 - F/u PCP for further management #Iron Deficiency Anemia, stable - Hb 10-11 throughout hospital course - Low Fe - Start iron supplementation following acute infection Chronic/Stable: HCV, untreated Chronically Elevated liver chemistries + HCV quant on OSH records. Hep A Ab +, c/w immunity. Hep B surface Ab +; Hep B core Ab + in 2022 and negative this admission c/w prior exposure and cleared infection. HIV ab neg 04/2024. - daily CMP, Mg - OP referral at time of discharge #TUD: PRN nicotine replacement therapy Checklist: Consults: ortho, ID, med psych, psych Diet: DIET REGULAR VTE Prophylaxis: lovenox 40 mg qd Code status: Full Code confirmed on admission; girlfriend is DPOA PT/OT: not ordered on admission Discharge Plan: in hospital for remainder of IV abx (through 07/19/2024) vs transfer to swing bed vs transfer to OSH. Current barrier is that other facilities do not have both daptomycin and ceftaroline. Have discussed with ID that he could remove one agent and continue with single coverage as long as not developing new symptoms. It would likely be most straight forward to d/c ceftaroline as daptomycin is once daily Chang Diaz DO Internal Medicine PGY-3 [facility] Secure Chat, #[id number] (via PAS) 06/18/24 13:31 ATTENDING ATTESTATION: Date of service: 06/18/2024 I interviewed and examined the patient; reviewed interval records, medications, laboratory studies;and discussed the case with Dr. Diaz (Medicine Team). I agree with and addended (in blue) the findings and plan of care as documented in the note above. Additionally: Dr. Hakeem Wagner will assume the care of the patient tomorrow (06/19/24). Johan Campos MD Internal Medicine Hospitalist Service 06/18/2024 16:26 * Aric Peralta MD - 06/17/2024 1612 EST Internal Medicine Progress Note Service Date: 06/17/24 Admit Date: 2024 Reason for Admission: 44 y.o. male admitted with a chief complaint of back pain now with a principal diagnosis of MRSA bacteremia and T10-L2 osteo-discitis w epidural abscess with c/f narrowing of spinal canal 24 Hour Events: NAEO Subjective/Objective Subjective Back pain similar in character and level this morning as previous morning. Otherwise no new complaints. Hopes he can leave the hospital. Review of Systems A ten point review of systems was performed and was negative except for pertinentpositives noted above. Objective Vital Signs: BP Min: 107/73 Max: 128/77 BP MAP Min: 83 mm Hg Max: 92 mm Hg Pulse From Oximetry Min: 82 BPM Max: 98 BPM Resp Min: 16 Max: 16 Temp Min: 36.7 ??C (98.1 ??F) Max: 37 ??C (98.6 ??F) SpO2 Min: 93 % Max: 95 % O2 Device: None No data recorded Weight : 87.4 kg (192 lb 9.6 oz) Physical Exam General: patient laying in bed, in no acute distress CVS: RRR, S1+S2 normal, no murmurs/rubs/gallop appreciated Resp: Maintaining spO2 saturation on room air, clear to ausculation bilaterally Abdomen: mild tenderness to palpation, non-distended. NBS. Extremities: No cyanosis or edema. No joint swelling or erythema Neuro: moving all extremities spontaneously. Full and symmetric strength in BUE and BLE. Sensation intact to light touch in BLE. Skin: No obvious lesions on exposed skin Medications Reviewed Labs Reviewed Micro Reviewed Imaging Reviewed Micro: 2024: 4/4 Bcx positive MRSA @ 14hrs 05/27/2024: 4/4 Bcx positive MRSA @ 15hrs 05/29/2024: 2/4 Bcx positive MRSA @ 18hrs 05/30/2024: 2/4 Bcx positive MRSA @ 19.3hrs 06/01/2024: 4/4Bcx pos MRSA @ 17hrs & 29hrs 06/03/2024: 2/4 Bcx with one set positive MRSA @ 36.1hrs; other set with no growth to date 06/04/2024: 4/4 Bcx with one set positive MRSA @15.9hrs and 19hrs 06/05/2024: 2/4 Bcx with growth @27hrs 06/08/2024: 4/ no growth to date Assessment Marcos Camejo is a 44 y.o. male with a PMHx notable for IVDU (on suboxone), TUD, mood disorder (seroquel) who presented as transfer from [facility] ED for High Grade MRSA bacteremia c/b T10-11, L1-2 osteomyelitis, discitis, and T10-11 early phlegmon and early abscess. ID and orthopedic spine consulted. No surgical intervention indicated at this time. Now on rifampin, ceftaroline, and daptomycin due to persistent positive cultures. Cultures from 06/08 without growth. Continue to reassess quality of pain daily. Course c/b anxiety, now improved with psych recommended ativan. Currently coordinating dispo; here until end of IV abx vs swing bed vs in- patient to in-patient vs [facility]. Significant barrier that other facilities do not have both ceftaroline and daptomycin. Plan #Thoracic and lumbar spinal epidural abscess/ T10-L2 osteodiscitis with continued High Grade MRSA bacteremia - 06/08 Bcx w/o growth - Ortho spine consulted for neuro exams - ID consulted, final recs, Antibiotics through 07/19/2024 -d/c rifampin - IV Dapto 10mg/kg - Ceftaroline 600 q8 - Weekly LFT, CK (baseline wnl) - if leaving without continued IV abx, plan: linezolid, ideally with <2 weeks remaining of planned course - Weekly CBC, CK, LFT -PICC order 06/13 (5d negative culture) - f/u repeat blood cultures 06/08 NTD - Investigating possible d/c options. Q8h infusions would likely not be possible at infusion center. Available transfer centers seem to not have daptomycin or not have ceftaroline. Discussed option of removing one antibiotic with ID. Ideally, would have one agent pulled off, then assessed for 3 days before discharging. #Pain management Per discussion with ortho, patient will have pain until the vertebra fuse together. Continue to monitor for worsening pain, signs of new focal infection and modifying multimodal pain regimen. Cr slightly uptrended on ketorolac (0.66 at admisison -> 0.82 -> 0.96). Completed 5d course /25. 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 Still having severe anxiety, feelings of panic and claustrophobia. Walking outside helps with these symptoms. He is concerned this will get worse and he will leave even though he needs to be here for antibiotic treatment. Understands hospital policy, ok to walk on the unit and we will work with him to help these symptoms. GAD7=18 and PHQ9=17 indicating severe anxiety and depression, respectively. Discussed with psychiatry team for input on medication management. 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 - F/u PCP for further management #Iron Deficiency Anemia, stable - Hb 10-11 throughout hospital course - Low Fe - Start iron supplementation following acute infection Chronic/Stable: HCV, untreated Chronically Elevated liver chemistries + HCV quant on OSH records. Hep A Ab +, c/w immunity. Hep B surface Ab +; Hep B core Ab + in 2022 and negative this admission c/w prior exposure and cleared infection. HIV ab neg 04/2024. - daily CMP, Mg - OP referral at time of discharge #TUD: PRN nicotine replacement therapy Checklist: Consults: ortho, ID, med psych, psych Diet: DIET REGULAR VTE Prophylaxis: lovenox 40 mg qd Code status: Full Code confirmed on admission; girlfriend is DPOA PT/OT: not ordered on admission Discharge Plan: in hospital for remainder of IV abx (through 07/19/2024) vs transfer to swing bed vs transfer to OSH. Current barrier is that other facilities do not have both daptomycin and ceftaroline. Have discussed with ID that he could remove one agent and continue with single coverage as long as not developing new symptoms. It would likely be most straight forward to d/c ceftaroline as daptomycin is once daily Aric Peralta MD Internal Medicine, PGY-1 Cosigned by Johan Campos MD at 06/17/2024 17:02 EST Associated attestation - Johan Campos MD - 06/17/2024 1702 EST ATTENDING ATTESTATION: Date of service: 06/17/2024 I interviewed and examined the patient; reviewed interval records, medications, and laboratory studies; and discussed the case with Dr. Peralta & Dr. Diaz (Medicine Team). I agree with and addended (in blue) the findings and plan of care as documented in the note below. Johan Campos MD Hospital Medicine Service 06/17/2024 17:02 * Aric Peralta MD - 06/16/2024 0854 EST Internal Medicine Progress Note Service Date: 06/16/24 Admit Date: 2024 Reason for Admission: 44 y.o. male admitted with a chief complaint of back pain now with a principal diagnosis of MRSA bacteremia and T10-L2 osteo-discitis w epidural abscess with c/f narrowing of spinal canal 24 Hour Events: NAEO Subjective/Objective Subjective Back pain similar in character and level this morning as previous morning. Otherwise no new complaints. Review of Systems A ten point review of systems was performed and was negative except for pertinentpositives noted above. Objective Vital Signs: BP Min: 105/89 Max: 129/76 BP MAP Min: 91 mm Hg Max: 93 mm Hg Pulse From Oximetry Min: 87 BPM Max: 87 BPM Resp Min: 14 Max: 16 Temp Min: 36.8 ??C (98.3 ??F) Max: 36.9 ??C (98.4 ??F) SpO2 Min: 95 % Max: 95 % O2 Device: None No data recorded Weight : 87.4 kg (192 lb 9.6 oz) Physical Exam General: patient laying in bed, in no acute distress CVS: RRR, S1+S2 normal, no murmurs/rubs/gallop appreciated Resp: Maintaining spO2 saturation on room air, clear to ausculation bilaterally Abdomen: mild tenderness to palpation, non-distended. NBS. Extremities: No cyanosis or edema. No joint swelling or erythema Neuro: moving all extremities spontaneously. Full and symmetric strength in BUE and BLE. Sensation intact to light touch in BLE. Skin: No obvious lesions on exposed skin Medications Reviewed Labs Reviewed Micro Reviewed Imaging Reviewed Micro: 2024: 4/4 Bcx positive MRSA @ 14hrs 05/27/2024: 4/4 Bcx positive MRSA @ 15hrs 05/29/2024: 2/4 Bcx positive MRSA @ 18hrs 05/30/2024: 2/4 Bcx positive MRSA @ 19.3hrs 06/01/2024: 4/4Bcx pos MRSA @ 17hrs & 29hrs 06/03/2024: 2/4 Bcx with one set positive MRSA @ 36.1hrs; other set with no growth to date 06/04/2024: 4/4 Bcx with one set positive MRSA @15.9hrs and 19hrs 06/05/2024: 2/4 Bcx with growth @27hrs 06/08/2024: 4/4 no growth to date Assessment Marcos Camejo is a 44 y.o. male with a PMHx notable for IVDU (on suboxone), TUD, mood disorder (seroquel) who presented as transfer from [facility] ED for High Grade MRSA bacteremia c/b T10-11, L1-2 osteomyelitis, discitis, and T10-11 early phlegmon and early abscess. ID and orthopedic spine consulted. No surgical intervention indicated at this time. Now on rifampin, ceftaroline, and daptomycin due to persistent positive cultures. Cultures from 06/08 without growth. Continue to reassess quality of pain daily. Course c/b anxiety, now improved with psych recommended ativan. Currently coordinating dispo; here until end of IV abx vs swing bed vs in- patient to in-patient vs [facility]. Significant barrier that other facilities do not have both ceftaroline and daptomycin. Plan #Thoracic and lumbar spinal epidural abscess/ T10-L2 osteodiscitis with continued High Grade MRSA bacteremia - 06/08 Bcx w/o growth - Ortho spine consulted for neuro exams - ID consulted, final recs, Antibiotics through 07/19/2024 -d/c rifampin - IV Dapto 10mg/kg - Ceftaroline 600 q8 - Weekly LFT, CK (baseline wnl) - if leaving without continued IV abx, plan: linezolid, ideally with <2 weeks remaining of planned course - Weekly CBC, CK, LFT -PICC order 06/13 (5d negative culture) - f/u repeat blood cultures 06/08 NTD - Investigating possible d/c options. Q8h infusions would likely not be possible at infusion center. Available transfer centers seem to not have daptomycin or not have ceftaroline. Discussed option of removing one antibiotic with ID. Ideally, would have one agent pulled off, then assessed for 3 days before discharging. #Pain management Per discussion with ortho, patient will have pain until the vertebra fuse together. Continue to monitor for worsening pain, signs of new focal infection and modifying multimodal pain regimen. Cr slightly uptrended on ketorolac (0.66 at admisison -> 0.82 -> 0.96). Completed 5d course [id number]. 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 Still having severe anxiety, feelings of panic and claustrophobia. Walking outside helps with these symptoms. He is concerned this will get worse and he will leave even though he needs to be here for antibiotic treatment. Understands hospital policy, ok to walk on the unit and we will work with him to help these symptoms. GAD7=18 and PHQ9=17 indicating severe anxiety and depression, respectively. Discussed with psychiatry team for input on medication management. 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 - F/u PCP for further management #Iron Deficiency Anemia, stable - Hb 10-11 throughout hospital course - Low Fe - Start iron supplementation following acute infection Chronic/Stable: HCV, untreated Chronically Elevated liver chemistries + HCV quant on OSH records. Hep A Ab +, c/w immunity. Hep B surface Ab +; Hep B core Ab + in 2022 and negative this admission c/w prior exposure and cleared infection. HIV ab neg 04/2024. - daily CMP, Mg - OP referral at time of discharge #TUD: PRN nicotine replacement therapy Checklist: Consults: ortho, ID, med psych, psych Diet: DIET REGULAR VTE Prophylaxis: lovenox 40 mg qd Code status: Full Code confirmed on admission; girlfriend is DPOA PT/OT: not ordered on admission Discharge Plan: in hospital for remainder of IV abx (through 07/19/2024) vs transfer to swing bed vs transfer to OSH. Current barrier is that other facilities do not have both daptomycin and ceftaroline. Have discussed with ID that he could remove one agent and continue with single coverage as long as not developing new symptoms. It would likely be most straight forward to d/c ceftaroline as daptomycin is once daily Aric Peralta MD Internal Medicine, PGY-1 Cosigned by Johan Campos MD at 06/17/2024 8:42 EST Associated attestation - Johan Campos MD - 06/17/2024 0842 EST ATTENDING ATTESTATION: Date of service: 06/16/2024 I interviewed and examined the patient; reviewed interval records, medications, and laboratory studies; and discussed the case with Dr. Peralta& Dr. Diaz (Medicine Team). I agree with and addended(in blue) the findings and plan of care as documented in the note below. Johan Capmos MD [facility] Medicine Service 06/17/2024 8:41 * Aric Peralta MD - 06/15/2024 0931 EST Internal Medicine Progress Note Service Date: 06/15/24 Admit Date: 2024 Reason for Admission: 44 y.o. male admitted with a chief complaint of back pain now with a principal diagnosis of MRSA bacteremia and T10-L2 osteo-discitis w epidural abscess with c/f narrowing of spinal canal 24 Hour Events: NAEO Subjective/Objective Subjective Thinks his back pain is about an 8/10, which is similar to yesterday morning. Pain remains as same character. Continues to deny radicular symptoms, weakness, numbness. Otherwise has no complaints. Discussed that we are working on getting him somewhere else, but will know more tomorrow after the holiday. Review of Systems A ten point review of systems was performed and was negative except for pertinentpositives noted above. Objective Vital Signs: BP Min: 116/76 Max: 125/79 Pulse From Oximetry Min: 78 BPM Max: 78 BPM Resp Min: 16 Max: 16 Temp Min: 36.9 ??C (98.4 ??F) Max: 37 ??C (98.6 ??F) SpO2 Min: 95 % Max: 98 % O2 Device: None No data recorded Weight : 87.4 kg (192 lb 9.6 oz) Physical Exam General: patient laying in bed, a bit diaphoretic, in no acute distress CVS: RRR, S1+S2 normal, no murmurs/rubs/gallop appreciated Resp: Maintaining spO2 saturation on room air, clear to ausculation bilaterally Abdomen: mild tenderness to palpation, non-distended. NBS. Extremities: No cyanosis or edema. No joint swelling or erythema Neuro: moving all extremities spontaneously. Full and symmetric strength in BUE and BLE. Sensation intact to light touch in BLE. Skin: No obvious lesions on exposed skin Medications Reviewed Labs Reviewed Micro Reviewed Imaging Reviewed Micro: 2024: 4/4 Bcx positive MRSA @ 14hrs 05/27/2024: 4/ Bcx positive MRSA @ 15hrs 05/29/2024: 2/ Bcx positive MRSA @ 18hrs 05/30/2024: 2 Bcx positive MRSA @ 19.3hrs 06/01/2024: 4cx pos MRSA @ 17hrs & 29hrs 06/03/2024: 2/ Bcx with one set positive MRSA @ 36.1hrs; other set with no growth to date 06/04/2024: 4/ Bcx with one set positive MRSA @15.9hrs and 19hrs 06/05/2024: 2/ Bcx with growth @27hrs 06/08/2024: 4/ no growth to date Assessment Marcos Camejo is a 44 y.o. male with a PMHx notable for IVDU (on suboxone), TUD, mood disorder (seroquel) who presented as transfer from [facility] ED for High Grade MRSA bacteremia c/b T10-11, L1-2 osteomyelitis, discitis, and T10-11 early phlegmon and early abscess. ID and orthopedic spine consulted. No surgical intervention indicated at this time. Now on rifampin, ceftaroline, and daptomycin due to persistent positive cultures. Cultures from 06/08 without growth. Continue to reassess quality of pain daily. Hospital course now c/b by anxiety and feeling like he is having a panic attack starting 06/08, hashx of leaving the hospital. Psych consulted, started ativan TID with symptoms better controlled now. Continue to monitor for oversedation but seems to be tolerating well. Plan #Thoracic and lumbar spinal epidural abscess/ T10-L2 osteodiscitis with continued High Grade MRSA bacteremia - 06/08 Bcx w/o growth - Ortho spine consulted for neuro exams - ID consulted, final recs, Antibiotics through 07/19/2024 -d/c rifampin - IV Dapto 10mg/kg - Ceftaroline 600 q8 - Weekly LFT, CK (baseline wnl) - if leaving without continued IV abx, plan: linezolid, ideally with <2 weeks remaining of planned course - Weekly CBC, CK, LFT -PICC order 06/13 (5d negative culture) - f/u repeat blood cultures 06/08 NTD - Investigating possible d/c options. Q8h infusions would likely not be possible at infusion center. Available transfer centers seem to not have daptomycin or not have ceftaroline. Discussed option of removing one antibiotic with ID. Ideally, would have one agent pulled off, then assessed for 3 days before discharging. #Pain management Per discussion with ortho, patient will have pain until the vertebra fuse together. Continue to monitor for worsening pain, signs of new focal infection and modifying multimodal pain regimen. Cr slightly uptrended on ketorolac (0.66 at admisison -> 0.82 -> 0.96). Completed 5d course [id number]. 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 Still having severe anxiety, feelings of panic and claustrophobia. Walking outside helps with these symptoms. He is concerned this will get worse and he will leave even though he needs to be here for antibiotic treatment. Understands hospital policy, ok to walk on the unit and we will work with him to help these symptoms. GAD7=18 and PHQ9=17 indicating severe anxiety and depression, respectively. Discussed with psychiatry team for input on medication management. 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 - F/u PCP for further management #Iron Deficiency Anemia, stable - Hb 10-11 throughout hospital course - Low Fe - Start iron supplementation following acute infection Chronic/Stable: HCV, untreated Chronically Elevated liver chemistries + HCV quant on OSH records. Hep A Ab +, c/w immunity. Hep B surface Ab +; Hep B core Ab + in 2022 and negative this admission c/w prior exposure and cleared infection. HIV ab neg 04/2024. - daily CMP, Mg - OP referral at time of discharge #TUD: PRN nicotine replacement therapy Checklist: Consults: ortho, ID, med psych, psych Diet: DIET REGULAR VTE Prophylaxis: lovenox 40 mg qd Code status: Full Code confirmed on admission; girlfriend is DPOA PT/OT: not ordered on admission Discharge Plan: in hospital for remainder of IV abx (through 07/19/2024) vs transfer to swing bed vs transfer to OSH. Current barrier is that other facilities do not have both daptomycin and ceftaroline. Will further explore tx to [place] on 06/16 after the holiday. I discussed potential transfer to [facility] swing bed with patient today and he was amenable to this option. It would not be feasible to administer tid infusions through an outpatient infusion center. Aric Peralta MD Internal Medicine, PGY-1 Cosigned by Johan Campos MD at 06/15/2024 13:05 EST Associated attestation - Johan Campos MD - 06/15/2024 1305 EST ATTENDING ATTESTATION: Date of service: 06/15/2024 I interviewed and examined the patient; reviewed interval records, medications, and laboratory studies; and discussed the case with Dr. Peralta (Medicine Team). I agree with and addended (in blue) thefindings and plan of care as documented in the note below. Johan Campos MD Hospital Medicine Service 06/15/2024 13:02 * Aric Peralta MD - 06/14/2024 6879 EST Internal Medicine Progress Note Service Date: 06/14/24 Admit Date: 2024 Reason for Admission: 44 y.o. male admitted with a chief complaint of back pain now with a principal diagnosis of MRSA bacteremia and T10-L2 osteo-discitis w epidural abscess with c/f narrowing of spinal canal 24 Hour Events: NAEO Subjective/Objective Subjective Continues to have back pain but thinks it is better today. Pain remains as same character. Continues to deny radicular symptoms, weakness, numbness. Otherwise has no complaints. Would like to be leftto sleep. Last BM 06/13 per patient. Review of Systems A ten point review of systems was performed and was negative except for pertinentpositives noted above. Objective Vital Signs: BP Min: 108/66 Max: 125/79 BP MAP Min: 80 mm Hg Max: 84 mm Hg Pulse From Oximetry Min: 76 BPM Max: 78 BPM Resp Min: 16 Max: 18 Temp Min: 36.7 ??C (98.1 ??F) Max: 37 ??C (98.6 ??F) SpO2 Min: 92 % Max: 98 % O2 Device: None No data recorded Weight : 87.4 kg (192 lb 9.6 oz) Physical Exam General: patient laying in bed, a bit diaphoretic, in no acute distress CVS: RRR, S1+S2 normal, no murmurs/rubs/gallop appreciated Resp: Maintaining spO2 saturation on room air, clear to ausculation bilaterally Abdomen: mild tenderness to palpation, non-distended. NBS. Extremities: No cyanosis or edema. No joint swelling or erythema Neuro: moving all extremities spontaneously. Full and symmetric strength in BUE and BLE. Sensation intact to light touch in BLE. Skin: No obvious lesions on exposed skin Medications Reviewed Labs Reviewed Micro Reviewed Imaging Reviewed Micro: 2024: 4/4 Bcx positive MRSA @ 14hrs 05/27/2024: 4/4 Bcx positive MRSA @ 15hrs 05/29/2024: 2/4 Bcx positive MRSA @ 18hrs 05/30/2024: 2/4 Bcx positive MRSA @ 19.3hrs 06/01/2024: 4/4Bcx pos MRSA @ 17hrs & 29hrs 06/03/2024: 2/4 Bcx with one set positive MRSA @ 36.1hrs; other set with no growth to date 06/04/2024: 4/4 Bcx with one set positive MRSA @15.9hrs and 19hrs 06/05/2024: 2/4 Bcx with growth @27hrs 06/08/2024: 4/4 no growth to date Assessment Marcos Camejo is a 44 y.o. male with a PMHx notable for IVDU (on suboxone), TUD, mood disorder (seroquel) who presented as transfer from [facility] ED for High Grade MRSA bacteremia c/b T10-11, L1-2 osteomyelitis, discitis, and T10-11 early phlegmon and early abscess. ID and orthopedic spine consulted. No surgical intervention indicated at this time. Now on rifampin, ceftaroline, and daptomycin due to persistent positive cultures. Cultures from 06/08 without growth. Continue to reassess quality of pain daily. Hospital course now c/b by anxiety and feeling like he is having a panic attack starting 06/08, hashx of leaving the hospital. Psych consulted, started ativan TID with symptoms better controlled now. Continue to monitor for oversedation but seems to be tolerating well. Plan #Thoracic and lumbar spinal epidural abscess/ T10-L2 osteodiscitis with continued High Grade MRSA bacteremia - 06/08 Bcx w/o growth - Ortho spine consulted for neuro exams - ID consulted, final recs, Antibiotics through 07/19/2024 -d/c rifampin - IV Dapto 10mg/kg - Ceftaroline 600 q8 - Weekly LFT, CK (baseline wnl) - if leaving without continued IV abx, plan: linezolid, ideally with <2 weeks remaining of planned course - Mon, Thur CBC/CMP, trend fever curve -PICC order 06/13 (5d negative culture) - f/u repeat blood cultures 06/08 NTD - Investigating possible d/c options. Q8h infusions would likely not be possible at infusion center. Available transfer centers seem to not have daptomycin or not have ceftaroline. Discussed option of removing one antibiotic with ID. Ideally, would have one agent pulled off, then assessed for 3 days before discharging. #Pain management Per discussion with ortho, patient will have pain until the vertebra fuse together. Continue to monitor for worsening pain, signs of new focal infection and modifying multimodal pain regimen. Cr slightly uptrending on ketorolac (0.66 at admisison -> 0.82 -> 0.96). Completed 5d course ketoralac 06/12. 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 Still having severe anxiety, feelings of panic and claustrophobia. Walking outside helps with these symptoms. He is concerned this will get worse and he will leave even though he needs to be here for antibiotic treatment. Understands hospital policy, ok to walk on the unit and we will work with him to help these symptoms. GAD7=18 and PHQ9=17 indicating severe anxiety and depression, respectively. Discussed with psychiatry team for input on medication management. 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 - F/u PCP for further management #Iron Deficiency Anemia - Hb 10-11 throughout hospital course - Low Fe - Start iron supplementation following acute infection Chronic/Stable: HCV, untreated Chronically Elevated liver chemistries + HCV quant on OSH records. Hep A Ab +, c/w immunity. Hep B surface Ab +; Hep B core Ab + in 2022 and negative this admission c/w prior exposure and cleared infection. HIV ab neg 04/2024. - daily CMP, Mg - OP referral at time of discharge #TUD: PRN nicotine replacement therapy Checklist: Consults: ortho, ID, med psych, psych Diet: DIET REGULAR VTE Prophylaxis: lovenox 40 mg qd Code status: Full Code confirmed on admission; girlfriend is DPOA PT/OT: not ordered on admission Discharge Plan: pending plan for continued IV abx therapy Aric Peralta MD Internal Medicine, PGY-1 Cosigned by Johan Campos MD at 06/14/2024 16:25 EST Associated attestation - Johan Campos MD - 06/14/2024 1625 EST ATTENDING ATTESTATION: Date of service: 06/14/2024 I interviewed and examined the patient; reviewed interval records, medications, and laboratory studies; and discussed the case with Dr. Peralta & Dr. Diaz (Medicine Team). I agree with the findings and plan of care as documented in the Dr. Peralta's note. Additionally: Clinically stable with intact neurologic exam and gradually improving pain. Exploring dispositional options for continued IV abx, including potential swing bed at [place]. Johan Campos MD Hospital Medicine Service 06/14/2024 16:23 * Porter Nicole - 06/14/2024 1044 EST CM listed pt for [facility] [place] this day for iv abx therapy. CM initiatef request for transferto swing bed, [facility]. Discussed option of infusion center of iv abx. Pt agreed to drive self to infusion center multiple times a day for treatment. Awaiting abx plan from ID for possible tx at infusion center at [facility]. 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 06/14/2024 10:46 * Porter Nicole - 06/13/2024 1626 EST [facility] Department of Case Management and Social Work Case Management Progress Note Patient Name Level of Care and Accommodation Code: Patient Class: Medically Ready: Y/N Marcos Camejo Acute General Inpatient N Primary Dx: Decisional Capacity: Y/N Primary Support/ CareGiver: Advance Directive MRSA bacteremia Y girlfriend Advance Directives (For Healthcare) Healthcare Directive: No, patient does not have advance directive for healthcare treatment Information Provided on Healthcare Directives: Yes Information on Healthcare Directives Requested: Yes Patient Requests Assistance: Yes, will do independently Disposition Information Appropriate to transfer back: Y/N Length of Stay (in days): Estimated Date of D/C: LTC Medicaid Status: Y 18 2-4 days N Primary Care Provider: [facility] referred: Y/N Bed Offers: Y/N Escalated to Leadership: Y/N Raffi Palmer N/a Y Mobility Level: Recommended D/C Location Payor: Bedside Mobility Assessment Tool (BMAT) Bedrest or non-weight bearing orders?: No Mobility level determined: Mobility Level 4 use gait belt, walker, crutches, cane, prosthetic(s) Number of caregivers reccommended: 0 Payor: MEDICAID [place] / Plan: MEDICA[place] / Product Type:Medicaid ACO [place] GL / Barriers to Discharge IV abx 3x per day. Plan Consulted with team on barriers to DC pertaining to hx IV drug use; based on conversations, hx of drug use should not be a barrier. Plan to consult with ID regarding abx plan and ability for pt to complete protocol at home with nurse and follow up at infusion center at [facility]? [employer] Supervisor II Epic chat preferred. 06/13/2024 16:29 06/13/24 16:26 * Marilyn Monet RN - 06/13/2024 1113 EST Vascular Access Progress Note Diagnosis: Active Hospital Problems Diagnosis *MRSA bacteremia Anxiety Discitis of thoracolumbar region Epidural abscess Sepsis due to methicillin resistant Staphylococcus aureus (MRSA) without acute organ dysfunction ([facility]) Acute pain Opioid use disorder Reason for PICC line: abx Recommendations: single vs double PICC/Central Line/Pacer history (Review documents, ask patient): Labs: Lab Results Component Value Date PROTIME 10.8 02/05/2020 INR 0.9 02/05/2020 Lab Results Component Value Date WBC 6.56 06/11/2024 Lab Results Component Value Date PLT 355 06/11/2024 Lab Results Component Value Date CALCGFR 107 06/12/2024 Blood Cultures (negative at 48, 72 hour for yeast?) yes Contraindications to PICC Insertion (presence of any requires comment): Hx of thrombus-look for Doppler studies? No Unavailable arm (stroke, injury, surgical site, lymphedema, or fistula)? no Renal compromise needs attending or Nephrology order-Order needed? no Devices in the SVC? no Crutches or Walker? no IVC Filter or Pacer? no Temp >38.5 in 24hrs? no Existing lines? piv Patient education completed? At bedside MARILYN MONET RN * Johan Campos MD - 06/13/2024 0900 EST Internal Medicine Progress Note Service Date: 06/13/24 Admit Date: 2024 Reason for Admission: 44 y.o. male admitted with a chief complaint of back pain now with a principal diagnosis of MRSA bacteremia and T10-L2 osteo-discitis w epidural abscess with c/f narrowing of spinal canal 24 Hour Events: NAEO Subjective/Objective Subjective In significant pain this morning but continues to deny any radicular pain, numbness, tingling, weakness. Hasn't been up to walk around yet. Discussed that this morning was the last dose of toradol, which he understands. He continues to deny pain elsewhere. No Chest pain, SOB, abdominal pain. Continues to endorse regular BMs. Review of Systems A ten point review of systems was performed and was negative except for pertinentpositives noted above. Objective Vital Signs: BP Min: 111/84 Max: 121/79 BP MAP Min: 91 mm Hg Max: 92 mm Hg Pulse From Oximetry Min: 77 BPM Max: 86 BPM Resp Min: 16 Max: 16 Temp Min: 36.7 ??C (98.1 ??F) Max: 36.8 ??C (98.2 ??F) SpO2 Min: 95 % Max: 97 % O2 Device: None No data recorded Weight : 87.4 kg (192 lb 9.6 oz) Physical Exam General: patient laying in bed, a bit diaphoretic, in no acute distress CVS: RRR, S1+S2 normal, no murmurs/rubs/gallop appreciated Resp: Maintaining spO2 saturation on room air, clear to ausculation bilaterally Abdomen: mild tenderness to palpation, non-distended. NBS. Extremities: No cyanosis or edema. No joint swelling or erythema Neuro: moving all extremities spontaneously. Has tenderness to palpation at ~T11 midline with lateral radiation bilaterally that wraps around the stomach, no erythema, swelling or palpable abscess. Full and symmetric strength in BUE and BLE. Sensation intact to light touch in BLE. Skin: No obvious lesions on exposed skin Medications Reviewed Labs Reviewed Micro Reviewed Imaging Reviewed Micro: 2024: 4/4 Bcx positive MRSA @ 14hrs 05/27/2024: 4/4 Bcx positive MRSA @ 15hrs 05/29/2024: 2/4 Bcx positive MRSA @ 18hrs 05/30/2024: 2/4 Bcx positive MRSA @ 19.3hrs 06/01/2024: 4/4Bcx pos MRSA @ 17hrs & 29hrs 06/03/2024: 2/4 Bcx with one set positive MRSA @ 36.1hrs; other set with no growth to date 06/04/2024: 4/4 Bcx with one set positive MRSA @15.9hrs and 19hrs 06/05/2024: 2/4 Bcx with growth @27hrs 06/08/2024: 4/4 no growth to date Assessment Marcos Camejo is a 44 y.o. male with a PMHx notable for IVDU (on suboxone), TUD, mood disorder (seroquel) who presented as transfer from [facility] ED for High Grade MRSA bacteremia c/b T10-11, L1-2 osteomyelitis, discitis, and T10-11 early phlegmon and early abscess. ID and orthopedic spine consulted. No surgical intervention indicated at this time. Now on rifampin, ceftaroline, and daptomycin due to persistent positive cultures. Cultures from 06/08 without growth . Continue to reassess quality of pain daily. Hospital course now c/b by anxiety and feeling like he is having a panic attack starting 06/08, hashx of leaving the hospital. Psych consulted, started ativan TID with symptoms better controlled now. Continue to monitor for oversedation but seems to be tolerating well. Plan #Thoracic and lumbar spinal epidural abscess/ T10-L2 osteodiscitis with continued High Grade MRSA bacteremia Cultures from 06/08 without growth - Ortho spine consulted for neuro exams - ID consulted, final recs, Antibiotics through 07/19/2024 -d/c rifampin - IV Dapto 10mg/kg - Ceftaroline 600 q8 - Weekly LFT, CK (baseline wnl) - if leaving without continued IV abx, plan: linezolid, ideally with <2 weeks remaining of planned course - Mon, Thur CBC/CMP, trend fever curve -PICC order 06/13 (5d negative culture) - f/u repeat blood cultures 06/08 NTD #Pain management Per discussion with ortho, patient will have pain until the vertebra fuse together. Continue to monitor for worsening pain, signs of new focal infection and modifying multimodal pain regimen. Cr slightly uptrending on ketorolac (0.66 at admisison -> 0.82 -> 0.96). Completed 5d course ketoralac 06/12. 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 Still having severe anxiety, feelings of panic and claustrophobia. Walking outside helps with these symptoms. He is concerned this will get worse and he will leave even though he needs to be here for antibiotic treatment. Understands hospital policy, ok to walk on the unit and we will work with him to help these symptoms. GAD7=18 and PHQ9=17 indicating severe anxiety and depression, respectively. Discussed with psychiatry team for input on medication management. 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 - F/u PCP for further management #Iron Deficiency Anemia - Hb 10-11 throughout hospital course - Low Fe - Start iron supplementation following acute infection Chronic/Stable: HCV, untreated Chronically Elevated liver chemistries + HCV quant on OSH records. Hep A Ab +, c/w immunity. Hep B surface Ab +; Hep B core Ab + in 2022 and negative this admission c/w prior exposure and cleared infection. HIV ab neg 04/2024. - daily CMP, Mg - OP referral at time of discharge #TUD: PRN nicotine replacement therapy Checklist: Consults: ortho, ID, med psych, psych Diet: DIET REGULAR VTE Prophylaxis: lovenox 40 mg qd Code status: Full Code confirmed on admission; girlfriend is DPOA PT/OT: not ordered on admission Discharge Plan: pending PICC placement, pain control, possibly here through completion of IV abx Aric Peralta MD Internal Medicine, PGY-1 ATTENDING ATTESTATION: Date of service: 06/13/2024 I interviewed and examined the patient; reviewed interval records, medications, laboratory studies;and discussed the case with Dr. Peralta & Dr. Diaz (Medicine Team). I agree with and addended (in blue) the findings and plan of care as documented in the note above. Johan Campos MD Internal Medicine Hospitalist Service 06/13/2024 16:18 * Johan Campos MD - 06/12/2024 0903 EST Internal Medicine Progress Note Service Date: 06/12/24 Admit Date: 2024 Reason for Admission: 44 y.o. male admitted with a chief complaint of back pain now with a principal diagnosis of MRSA bacteremia and T10-L2 osteo-discitis w epidural abscess with c/f narrowing of spinal canal 24 Hour Events: NAEO Subjective/Objective Subjective In significant pain this morning but continues to deny any radicular pain, numbness, tingling, weakness. Hasn't been up to walk around yet. Discussed that this morning was the last dose of toradol, which he understands. He continues to deny pain elsewhere. No Chest pain, SOB, abdominal pain. Continues to endorse regular BMs. Review of Systems A ten point review of systems was performed and was negative except for pertinentpositives noted above. Objective Vital Signs: BP Min: 110/79 Max: 133/95 BP MAP Min: 89 mm Hg Max: 104 mm Hg Pulse From Oximetry Min: 76 BPM Max: 97 BPM Resp Min: 16 Max: 16 Temp Min: 36.7 ??C (98 ??F) Max: 36.8 ??C (98.3 ??F) SpO2 Min: 92 % Max: 93 % O2 Device: None No data recorded Weight : 87.4 kg (192 lb 9.6 oz) Physical Exam General: patient laying in bed, a bit diaphoretic, in no acute distress CVS: RRR, S1+S2 normal, no murmurs/rubs/gallop appreciated Resp: Maintaining spO2 saturation on room air, clear to ausculation bilaterally Abdomen: mild tenderness to palpation, non-distended. NBS. Extremities: No cyanosis or edema. No joint swelling or erythema Neuro: moving all extremities spontaneously. Has tenderness to palpation at ~T11 midline with lateral radiation bilaterally that wraps around the stomach, no erythema, swelling or palpable abscess. Full and symmetric strength in BUE and BLE. Sensation intact to light touch in BLE. Skin: No obvious lesions on exposed skin Medications Reviewed Labs Reviewed Micro Reviewed Imaging Reviewed Micro: 2024: 4/4 Bcx positive MRSA @ 14hrs 05/27/2024: 4/4 Bcx positive MRSA @ 15hrs 05/29/2024: 2/4 Bcx positive MRSA @ 18hrs 05/30/2024: 2/4 Bcx positive MRSA @ 19.3hrs 06/01/2024: 4/4Bcx pos MRSA @ 17hrs & 29hrs 06/03/2024: 2/4 Bcx with one set positive MRSA @ 36.1hrs; other set with no growth to date 06/04/2024: 4/4 Bcx with one set positive MRSA @15.9hrs and 19hrs 06/05/2024: 2/4 Bcx with growth @27hrs 06/08/2024: 4/ no growth to date Assessment Marcos Camejo is a 44 y.o. male with a PMHx notable for IVDU (on suboxone), TUD, mood disorder (seroquel) who presented as transfer from [facility] ED for High Grade MRSA bacteremia c/b T10-11, L1-2 osteomyelitis, discitis, and T10-11 early phlegmon and early abscess. ID and orthopedic spine consulted. No surgical intervention indicated at this time. Now on rifampin, ceftaroline, and daptomycin due to persistent positive cultures. Cultures from 06/08 without growth to date. Continue to reassess quality of pain daily. Hospital course now c/b by anxiety and feeling like he is having a panic attack starting 06/08, hashx of leaving the hospital. Psych consulted, started ativan TID with symptoms better controlled now. Continue to monitor for oversedation but seems to be tolerating well. Plan #Thoracic and lumbar spinal epidural abscess/ T10-L2 osteodiscitis with continued High Grade MRSA bacteremia Cultures not yet cleared. - Ortho spine consulted for neuro exams - ID consulted - 6-8 weeks Dapto (start 05/28 - - 6- 8 weeks Ceftaroline (start 05/31 - Rifampin (start 06/06 - 06/12) (ID recommended d/c) - Weekly LFT, CK (baseline wnl) - Pt will likely need 6-8 wks IV abx from time of cultures being cleared - Mon, Thur CBC/CMP, trend fever curve - Plan for PICC placement following 5d negative cultures. Will likely require prolonged course (6-8weeks) of IV antibiotics. - f/u repeat blood cultures 06/08 NTD - Per ID recs today: --stop rifampin --dose reduce daptomycin to 10 mg/kg daily --weekly CK, CBC w/d, Cr while on therapy --continue ceftaroline 600 mg Q8 --duration 6 weeks through 07/19/24 --would urge patient to remain for IV therapy for at least 10 days from negative cultures (through 06/18) #Pain management Per discussion with ortho, patient will have pain until the vertebra fuse together. Continue to monitor for worsening pain, signs of new focal infection and modifying multimodal pain regimen. Cr slightly uptrending on ketorolac (0.66 at admisison -> 0.82 -> 0.96). 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 Still having severe anxiety, feelings of panic and claustrophobia. Walking outside helps with these symptoms. He is concerned this will get worse and he will leave even though he needs to be here for antibiotic treatment. Understands hospital policy, ok to walk on the unit and we will work with him to help these symptoms. GAD7=18 and PHQ9=17 indicating severe anxiety and depression, respectively. Discussed with psychiatry team for input on medication management. 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 - F/u PCP for further management #Iron Deficiency Anemia - Hb 10-11 throughout hospital course - Low Fe - Start iron supplementation following acute infection Chronic/Stable: HCV, untreated Chronically Elevated liver chemistries + HCV quant on OSH records. Hep A Ab +, c/w immunity. Hep B surface Ab +; Hep B core Ab + in 2023 and negative this admission c/w prior exposure and cleared infection. HIV ab neg 04/2024. - daily CMP, Mg - OP referral at time of discharge #TUD: PRN nicotine replacement therapy Checklist: Consults: ortho, ID, med psych, psych Diet: DIET REGULAR VTE Prophylaxis: lovenox 40 mg qd Code status: Full Code confirmed on admission; girlfriend is DPOA PT/OT: not ordered on admission Discharge Plan: pending clinical improvement Aric Peralta MD Internal Medicine, PGY-1 ATTENDING ATTESTATION: Date of service: 06/12/2024 I have interviewed and examined the patient. I personally reviewed laboratories studies, radiographic results, medications, and records. I discussed the case with: Dr. Peralta & Dr. Diaz (Medicine Team). I agree with and edited (in blue) the findings and plan of care as documented in the note above. I spent a total of 55 minutes on the date of this encounter meeting with the patient and reviewing documentation/coordinating care as described in the above note. Johan Campos MD Division of Hospital Medicine 06/12/2024 18:39 * Олег Chilel MD - 06/12/2024 0615 EST Infectious Disease Consultation Follow Up Note Admit Date: 2024 Hospital Day: LOS: 17 days Date of Service: 06/12/2024 Followup For: MRSA bacteremia, T10-11, L1-2 osteomyelitis, discitis 24 Hour and hospital Events: Subjective: Ongoing pain but no new pain. No rash or diarrhea. Anti-infectives & Other Pertinent Medications: Vancomycin 05/26- 05/28 Daptomycin 05/28 - present Ceftaroline 05/31 - current Rifampin - 06/06 Vital Signs: BP 116/75 (BP Cuff Location: Right arm, BP Patient Position: Supine) Pulse 84 Temp36.8 ??C (98.3 ??F) (Oral) Resp 16 Ht 175.3 cm (69) Wt 87.4 kg (192 lb 9.6 oz) SpO2 92% BMI 28.44 kg/m?? Exam: Sleeping comfortably Data Review: Laboratory data reviewed. Pertinent positives include: Labs: WBC/RBC/HGB/HCT/PLT/ANC8.06/4.56/12.0/35.8/244/-- (05/31 813) Microbiology: 05/26 - BC X 2 - 2/2 sets MRSA 05/27 - BC X 2 - 2/2 sets MRSA 05/29 - BC X 2 - 1/2 sets MRSA 05/30 - BC X 2 - 1/2 MRSA 06/01 - BC X 2 - 2/2 sets MRSA 06/03 - BC X 2 - 1/2 sets MRSA @ 36 hrs 06/04 - BC X 2 - 2/2 sets MRSA 06/05 - BC X 2 - 1/2 sets MRSA 06/08 - BC X 2 - pending Other: 05/29 - MARIBEL - no evidence of valvular vegetation 06/03/24 MR T spine 1. 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 [...] osteomyelitis of the adjacent right 11th rib. 05/28 - CT chest - bilateral tr pleural effusions 05/28 - CT abdomen - no embolic findings, splenomegaly, mild extrahepatic biliary dilatation Assessment: #High grade MRSA bacteremia (bacteremic at least 11 days 05/26-) Now cleared but significant concern for poor source control or high innoculum reservoir of bacteria. I think that I would discontinue rifampin at this point since there isn't infected hardware thus we don't have biofilm to treat perse and uncontrolled source may actual lead to rifampin resistance. I would plan to continue dual therapy for the duration of treatment 6 weeks given bony infection. I think at this point we could also dose reduce daptomycin to 10 mg/kg daily. #T10-11, L1-2 osteomyelitis, discitis, and T10-11 phlegmon - no progression toward epidural abscess between 05/24 and 06/03 imaging #Polysubstance use d/o on suboxone #anxiety- risk for early discharge #HCV untreated- HAV immune, HBV core Ab positive in prior but seroconverted Recommendations: --stop rifampin --dose reduce daptomycin to 10 mg/kg daily --weekly CK, CBC w/d, Cr while on therapy --continue ceftaroline 600 mg Q8 --ok to place picc if he will remain inpatient --duration 6 weeks through 07/19/24 --would urge patient to remain for IV therapy for at least 10 days from negative cultures (through 06/18) --If he chooses to leave prematurely would offer oral antibiotics, likely linezolid if <2 weeks of course remaining at that point ID will sign off at this time. Discussed with primary care team Олег Chliel MD 06/12/2024 6:15 I spent a total of 50 minutes on the date of this encounter meeting with the patient and reviewing documentation/coordinating care as described in the above note. * Aric Peralta MD - 06/11/2024 1156 EST Internal Medicine Progress Note Service Date: 06/11/24 Admit Date: 2024 Reason for Admission: 44 y.o. male admitted with a chief complaint of back pain now with a principal diagnosis of MRSA bacteremia and T10-L2 osteo-discitis w epidural abscess with c/f narrowing of spinal canal 24 Hour Events: NAEO Subjective/Objective Subjective Earlier in the AM had 10/10 back pain but quickly improved after medication. Patient interviewed soon after he returned from walk to the [facility] and is having better controlled pain. Thinks the toradol is a big help. Discussed that he would only be able to receive 5 days of toradol (last day tomorrow) and he was understanding. Discussed that his most recent Bcx remain negative and that may mean he will be able to get a PICC soon. Otherwise, denies chest pain, palpitations, new pain elsewhere. Continues to have daily BM. Ativan has greatly improved his anxiety. Review of Systems A ten point review of systems was performed and was negative except for pertinentpositives noted above. Objective Vital Signs: BP Min: 109/85 Max: 121/84 BP MAP Min: 96 mm Hg Max: 96 mm Hg Pulse From Oximetry Min: 99 BPM Max: 99 BPM Resp Min: 16 Max: 16 Temp Min: 36.8 ??C (98.2 ??F) Max: 37 ??C (98.6 ??F) SpO2 Min: 90 % Max: 95 % O2 Device: None No data recorded Weight : 87.4 kg (192 lb 9.6 oz) Physical Exam General: patient laying in bed, a bit diaphoretic, in no acute distress CVS: RRR, S1+S2 normal, no murmurs/rubs/gallop appreciated Resp: Maintaining spO2 saturation on room air, clear to ausculation bilaterally Abdomen: mild tenderness to palpation, non-distended. NBS. Extremities: No cyanosis or edema. No joint swelling or erythema Neuro: moving all extremities spontaneously. Has tenderness to palpation at ~T11 midline with lateral radiation bilaterally that wraps around the stomach, no erythema, swelling or palpable abcess Skin: No obvious lesions on exposed skin Medications Reviewed Labs Reviewed Micro Reviewed Imaging Reviewed Micro: 2024: 4/4 Bcx positive MRSA @ 14hrs 05/27/2024: 4/4 Bcx positive MRSA @ 15hrs 05/29/2024: 2/4 Bcx positive MRSA @ 18hrs 05/30/2024: 2/4 Bcx positive MRSA @ 19.3hrs 06/01/2024: 4/4Bcx pos MRSA @ 17hrs & 29hrs 06/03/2024: 2/4 Bcx with one set positive MRSA @ 36.1hrs; other set with no growth to date 06/04/2024: 4/4 Bcx with one set positive MRSA @15.9hrs and 19hrs 06/05/2024: 2/4 Bcx with growth @27hrs 06/08/2024: 4/4 no growth to date Assessment Marcos Camejo is a 44 y.o. male with a PMHx notable for IVDU (on suboxone), TUD, mood disorder (seroquel) who presented as transfer from [facility] ED for High Grade MRSA bacteremia c/b T10-11, L1-2 osteomyelitis, discitis, and T10-11 early phlegmon and early abscess. ID and orthopedic spine consulted. No surgical intervention indicated at this time. Now on rifampin, ceftaroline, and daptomycin due to persistent positive cultures. Continue to reassess quality of pain daily. Plan for MR lumbar spine if pain changes or if Bcx positive from 06/05. Hospital course now c/b by anxiety and feeling like he is having a panic attack starting 06/08, hashx of leaving the hospital. Psych consulted, started ativan TID with symptoms better controlled now. Continue to monitor for oversedation but seems to be tolerating well. Plan #Thoracic and lumbar spinal epidural abscess/ T10-L2 osteodiscitis with continued High Grade MRSA bacteremia Cultures not yet cleared. - Ortho spine consulted for neuro exams - ID consulted - Dapto (start 05/28 - - Ceftaroline (start 05/31 - Rifampin (start 06/06 - - Weekly LFT, CK (baseline wnl) - Pt will likely need 6-8 wks IV abx from time of cultures being cleared - Wed, CBC/CMP, trend fever curve - Plan for PICC placement following 5d negative cultures. Will likely require prolonged course (6-8weeks) of IV antibiotics. - f/u repeat blood cultures 06/08 NTD #Pain management Per discussion with ortho, patient will have pain until the vertebra fuse together. Continue to monitor for worsening pain, signs of new focal infection and modifying multimodal pain regimen. Cr slightly uptrending on ketorolac (0.66 at admisison -> 0.82 -> 0.96). 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 Still having severe anxiety, feelings of panic and claustrophobia. Walking outside helps with these symptoms. He is concerned this will get worse and he will leave even though he needs to be here for antibiotic treatment. Understands hospital policy, ok to walk on the unit and we will work with him to help these symptoms. GAD7=18 and PHQ9=17 indicating severe anxiety and depression, respectively. Discussed with psychiatry team for input on medication management. 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 - F/u PCP for further management - lipid panel #Iron Deficiency Anemia - Hb 10-11 throughout hospital course - Low Fe - Start iron supplementation following acute infection Chronic/Stable: HCV, untreated Chronically Elevated liver chemistries + HCV quant on OSH records. Hep A Ab +, c/w immunity. Hep B surface Ab +; Hep B core Ab + in 2022 and negative this admission c/w prior exposure and cleared infection. HIV ab neg 04/2024. - daily CMP, Mg - OP referral at time of discharge #TUD: PRN nicotine replacement therapy Checklist: Consults: ortho, ID, med psych, psych Diet: DIET REGULAR VTE Prophylaxis: lovenox 40 mg qd Code status: Full Code confirmed on admission; girlfriend is DPOA PT/OT: not ordered on admission Discharge Plan: pending clinical improvement Aric Peralta MD Internal Medicine, PGY-1 * Asha Arellano DO - 06/10/2024 0725 EST Internal Medicine Progress Note Service Date: 06/10/24 Admit Date: 2024 Reason for Admission: 44 y.o. male admitted with a chief complaint of back pain now with a principal diagnosis of MRSA bacteremia and T10-L2 osteo-discitis w epidural abscess with c/f narrowing of spinal canal 24 Hour Events: NAEO Subjective/Objective Subjective Back pain 10/10, tight feeling bilaterally at lower back. No tingling or weakness in the legs. Anxiety improved today. Denies chest discomfort, palpitations, trouble breathing. Urinating and having BM. Back pain has similar characteristics as it has before, just is more severe today. Feels like sharppain that wraps around his bilateral sides. The toradol has been the most helpful of his pain medications, Review of Systems A ten point review of systems was performed and was negative except for pertinentpositives noted above. Objective Vital Signs: BP Min: 119/72 Max: 132/91 BP MAP Min: 87 mm Hg Max: 105 mm Hg Pulse From Oximetry Min: 89 BPM Max: 95 BPM Resp Min: 16 Max: 18 Temp Min: 36.7 ??C (98 ??F) Max: 36.7 ??C (98.1 ??F) SpO2 Min: 92 % Max: 95 % O2 Device: None No data recorded Weight : 87.4 kg (192 lb 9.6 oz) Physical Exam General: patient laying in bed, a bit diaphoretic, in no acute distress CVS: RRR, S1+S2 normal, no murmurs/rubs/gallop appreciated Resp: Maintaining spO2 saturation on room air, clear to ausculation bilaterally Abdomen: mild tenderness to palpation, non-distended. NBS. Extremities: No cyanosis or edema. No joint swelling or erythema Neuro: moving all extremities spontaneously. Has tenderness to palpation at ~T11 midline with lateral radiation bilaterally that wraps around the stomach, no erythema, swelling or palpable abcess Skin: No Janeway lesions, Osler nodes, splinter hemorrhages in UL. Medications Reviewed Labs Reviewed Micro Reviewed Imaging Reviewed Micro: 2024: 4/4 Bcx positive MRSA @ 14hrs 05/27/2024: 4/4 Bcx positive MRSA @ 15hrs 05/29/2024: 2/4 Bcx positive MRSA @ 18hrs 05/30/2024: 2/4 Bcx positive MRSA @ 19.3hrs 06/01/2024: 4/4Bcx pos MRSA @ 17hrs & 29hrs 06/03/2024: 2/4 Bcx with one set positive MRSA @ 36.1hrs; other set with no growth to date 06/04/2024: 4/4 Bcx with one set positive MRSA @15.9hrs and 19hrs 06/05/2024: 2/4 Bcx with growth @27hrs 06/08/2024: 4/4 no growth to date Assessment Assessment Marcos Camejo is a 44 y.o. male with a PMHx notable for IVDU (on suboxone), TUD, mood disorder (seroquel) who presented as transfer from [facility] ED for High Grade MRSA bacteremia c/b T10-11, L1-2 osteomyelitis, discitis, and T10-11 early phlegmon and early abscess. ID and orthopedic spine consulted. No surgical intervention indicated at this time. Now on rifampin, ceftaroline, and daptomycin due to persistent positive cultures. Continue to reassess quality of pain daily. Plan for MR lumbar spine if pain changes or if Bcx positive from 06/05. Hospital course now c/b by anxiety and feeling like he is having a panic attack starting 06/08, hashx of leaving the hospital. Psych consulted, started ativan TID with symptoms better controlled now. Continue to monitor for oversedation but seems to be tolerating well. Plan #Thoracic and lumbar spinal epidural abscess/ T10-L2 osteodiscitis with continued High Grade MRSA bacteremia Cultures not yet cleared. - Ortho spine consulted for neuro exams - ID consulted - Dapto (start 05/28 - - Ceftaroline (start 05/31 - Rifampin (start 06/06 - - Weekly LFT, CK (baseline wnl) - Pt will likely need 6-8 wks IV abx from time of cultures being cleared - Wed, ur CBC/CMP, trend fever curve - Plan for PICC placement following 5d negative cultures. Will likely require prolonged course (6-8weeks) of IV antibiotics. - f/u repeat blood cultures 06/08 (have remained negative so far) #Pain management Per discussion with ortho, patient will have pain until the vertebra fuse together. Continue to monitor for worsening pain, signs of new focal infection and modifying multimodal pain regimen. 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 Still having severe anxiety, feelings of panic and claustrophobia. Walking outside helps with these symptoms. He is concerned this will get worse and he will leave even though he needs to be here for antibiotic treatment. Understands hospital policy, ok to walk on the unit and we will work with him to help these symptoms. GAD7=18 and PHQ9=17 indicating severe anxiety and depression, respectively. Discussed with psychiatry team today for input on medication management. 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 - F/u PCP for further management - lipid panel #Iron Deficiency Anemia - Hb 10- throughout hospital course - Low Fe - Start iron supplementation following acute infection Chronic/Stable: HCV, untreated Chronically Elevated liver chemistries + HCV quant on OSH records. Hep A Ab +, c/w immunity. Hep B surface Ab +; Hep B core Ab + in 2022 and negative this admission c/w prior exposure and cleared infection. HIV ab neg 04/2024. - daily CMP, Mg - OP referral at time of discharge #TUD: PRN nicotine replacement therapy Checklist: Consults: ortho, ID, med psych Diet: DIET REGULAR VTE Prophylaxis: lovenox 40 mg qd Code status: Full Code confirmed on admission; girlfriend is DPOA PT/OT: not ordered on admission Discharge Plan: pending clinical improvement Asha Arellano DO, MPH PGY-1 Internal Medicine [facility] Cosigned by Meaghan Zapata MD at 06/10/2024 11:14 EST Associated attestation - Meaghan Zapata MD - 06/10/2024 1114 EST Attestation: Pt seen and examined; I have reviewed Dr. Arellano's note and agree with findings, A and P as outlined above, with my additions in blue. I have personally reviewed the laboratory and radiology results. I have personally spoken with and examined the patient. DOS 06/10/24. Meaghan Zapata MD * Porter Nicole - 06/09/2024 1030 EST [facility] Department of Case Management and Social Work Case Management Progress Note Patient Name Level of Care and Accommodation Code: Patient Class: Medically Ready: Y/N Marcos Camejo Acute General Inpatient N Primary Dx: Decisional Capacity: Y/N Primary Support/ CareGiver: Advance Directive MRSA bacteremia Y girlfriend Advance Directives (For Healthcare) Healthcare Directive: No, patient does not have advance directive for healthcare treatment Information Provided on Healthcare Directives: Yes Information on Healthcare Directives Requested: Yes Patient Requests Assistance: Yes, will do independently Disposition Information Appropriate to transfer back: Y/N Length of Stay (in days): Estimated Date of D/C: LTC Medicaid Status: Y 14 06/14 N Primary Care Provider: AR/KAYA/SNF referred: Y/N Bed Offers: Y/N Escalated to Leadership: Y/N Raffi Merida n/a N/a N Mobility Level: Recommended D/C Location Payor: Bedside Mobility Assessment Tool (BMAT) Bedrest or non-weight bearing orders?: No Mobility level determined: Mobility Level 4 use gait belt, walker, crutches, cane, prosthetic(s) Number of caregivers reccommended: 0 Pay[place] / Plan[place] / Product Type:[place] GL / Barriers to Discharge IV abx : High grade MRSA bacteremia in the setting of thoracic and lumbar osteomyelitis/discitis. He has had persistent bacteremia despite multiple antibiotics and Rifampin was added on 06/06. He also appears to clinically be improving and he has no clear drainable source of infection other than his known discitis/osteomyelitis and phlegmenous changes. If he continues to be positive despite the additional antibiotics would image his lumbar spine. Given the length of time he's had positive cultures would increase his Dapto dose as well as his Ceftaroline dose for now. Plan DC next week to home depending on cultures. Anticipate no CM needs for DC. [employer] Epic chat preferred. 06/09/2024 10:33 06/09/24 10:30 * Geovanna Melendrez RD - 06/09/2024 0957 EST Nutrition Assessment Note: Initial Visit Reason for Visit: Length of stay BACKGROUND DATA Subjective: Patient reports having a good appetite and no difficulty ordering meals via the phone with room service. Current Nutrition Orders: Regular Diet Physical Findings: Digestive Systems: Last BM 06/08 (formed) Dentition: Teeth: Missing teeth per flowsheets Skin: WDL Allergies on file: Patient has no known allergies. Anthropometrics: Height: 175.3 cm (69) Wt Readings from Last 6 Encounters: 06/03/24 87.4 kg (192 lb 9.6 oz) 02/17/23 78 kg (172 lb) 02/05/20 77.1 kg (170 lb) 02/02/20 77.1 kg (170 lb) 05/31/19 83.9 kg (185 lb) BMI: Body mass index is 28.44 kg/m??. Weight Change: stable over the years Pertinent Medications: Current Facility-Administered Medications Medication Route Frequency acetaminophen (TYLENOL) tablet 1,000 mg oral Q6H bisacodyL (DULCOLAX) suppository 10 mg rectal Daily PRN buprenorphine-naloxone (SUBOXONE) 8-2 mg SUBLINGUAL TABLET 1 Tablet sublingual DAILY And buprenorphine-naloxone (SUBOXONE) 8-2 mg SUBLINGUAL TABLET 1 Tablet sublingual QHS ceftaroline fosamiL 600 mg in sodium chloride (NS) 0.9 % 50 mL IVPB intravenous Q8H cyclobenzaprine (FLEXERIL) tablet 10 mg oral TID PRN DAPTOmycin in 0.9 % sod chlor (CUBICIN) 1,000 mg/100 mL IVPB 1,000 mg intravenous Q24H enoxaparin (LOVENOX) injection 40 mg subcutaneous DAILY gabapentin (NEURONTIN) capsule 300 mg oral TID HYDROmorphone (DILAUDID) tablet 6 mg oral Q3H PRN hydrOXYzine (ATARAX) tablet 25 mg oral Q4H PRN ketOROLAC (TORADOL) injection 15 mg intravenous BID PRN lactulose (CHRONULAC) 20 gram/30 mL solution 30 mL oral Q6H PRN lidocaine (PF) 10 mg/mL (1 %) injection 2 mg intradermal PRN nicotine polacrilex (COMMIT) 2 mg lozenge 2 mg oral Q1H PRN pantoprazole (PROTONIX) tablet 20 mg oral DAILY BEFORE BREAKFAST polyethylene glycol 3350 (MIRALAX) packet 17 g oral BID QUEtiapine (SEROQUEL) tablet 100 mg oral QHS ramelteon (ROZEREM) tablet 8 mg oral AT BEDTIME PRN rifAMPin (RIFADIN) capsule 300 mg oral TID senna (SENOKOT) tablet 2 Tablet oral QHS simethicone (MYLICON) chewable tablet 80 mg oral Q6H PRN Pertinent Labs: Lab Results Component Value Date/Time NA 139 06/08/2024 15:08 K 4.9 06/08/2024 15:08 CO2 25 06/08/2024 15:08 CL 101 06/08/2024 15:08 BUN 25 06/08/2024 15:08 CREATININE 0.82 06/08/2024 15:08 CALCIUM 9.5 06/08/2024 15:08 MG 2.2 05/31/2024 08:13 Lab Results Component Value Date/Time HGBA1C 6.2 (H) 05/27/2024 07:23 Estimated Nutrition Intake: 100% of documented meals ASSESSMENT: RD Malnutrition Assessment No evidence of malnutrition at this time. Patient with improving appetite and PO intakes this admission. Had not been eating well at the beginning of admission rt decreased appetite, but is currently eating 100% of documented meals. Not ordering x3 meals/day, but all meals are >1,000 calories. Is likely meeting his nutritional needs at this time. No issues ordering with room service. No barriers to nutrition identified today. Nutrition Risk Level: Low (3) MEDICAL NUTRITION THERAPY PLAN: -No barrier to nutrition Geovanna Melendrez RD, CD * Asha Arellano DO - 06/09/2024 0721 EST Internal Medicine Progress Note Service Date: 06/09/24 Admit Date: 2024 Reason for Admission: 44 y.o. male admitted with a chief complaint of back pain now with a principal diagnosis of MRSA bacteremia and T10-L2 osteo-discitis w epidural abscess with c/f narrowing of spinal canal 24 Hour Events: NAEO Subjective/Objective Subjective Back pain worse today, 12/26. Still having anxiety. Dose of ativan helped with panic attack symptomsyesterday. Did not notice much change with one dose of hydroxyzine. Ok with talking to med psych team. Urinating ok and having BM. Review of Systems A ten point review of systems was performed and was negative except for pertinentpositives noted above. Objective Vital Signs: BP Min: 103/71 Max: 124/92 BP MAP Min: 83 mm Hg Max: 102 mm Hg Pulse From Oximetry Min: 79 BPM Max: 99 BPM Resp Min: 18 Max: 20 Temp Min: 36.6 ??C (97.9 ??F) Max: 36.8 ??C (98.2 ??F) SpO2 Min: 93 % Max: 97 % O2 Device: None No data recorded Weight : 87.4 kg (192 lb 9.6 oz) Physical Exam General: patient laying in bed, in no acute distress; was walking earlier today CVS: RRR, S1+S2 normal, no murmurs/rubs/gallop appreciated Resp: Maintaining spO2 saturation on room air, clear to ausculation bilaterally Abdomen: mild tenderness to palpation, non-distended. NBS. Extremities: No cyanosis or edema. No joint swelling or erythema Neuro: moving all extremities spontaneously. Has mild tenderness to palpation at coccyx, does not radiate, no erythema, swelling or palpable abcess Skin: No Janeway lesions, Osler nodes, splinter hemorrhages in UL. GAD7=18 (06/09/2024) PHQ9=17 (06/09/2024) Medications Reviewed Labs Reviewed Micro Reviewed Imaging Reviewed Micro: 2024: 4/4 Bcx positive MRSA @ 14hrs 05/27/2024: 4/4 Bcx positive MRSA @ 15hrs 05/29/2024: 2/4 Bcx positive MRSA @ 18hrs 05/30/2024: 2/4 Bcx positive MRSA @ 19.3hrs 06/01/2024: + MRSA @ 17hrs & 29hrs 06/03/2024: 2/4 Bcx with one set positive MRSA @ 36.1hrs; other set with no growth to date 06/04/2024: 4/4 Bcx with one set positive MRSA @15.9hrs and 19hrs 06/05/2024: 2/4 Bcx with growth @27hrs 06/08/2024: pending Assessment Assessment Marcos Camejo is a 44 y.o. male with a PMHx notable for IVDU (on suboxone), TUD, mood disorder (seroquel) who presented as transfer from [facility] ED for High Grade MRSA bacteremia c/b T10-11, L1-2 osteomyelitis, discitis, and T10-11 early phlegmon and early abscess. ID and orthopedic spine consulted. No surgical intervention indicated at this time. Now on rifampin, ceftaroline, and daptomycin due to persistent positive cultures. If Bcx positive from 06/05 will plan for MR of lumbar spine. Hospital course now c/b by anxiety and feeling like he is having a panic attack starting 06/08. Consulted med psych for further evaluation and medication recs in the setting of anxiety, panic attacks, hx of leaving the hospital. Plan #Thoracic and lumbar spinal epidural abscess/ T10-L2 osteodiscitis with continued High Grade MRSA bacteremia Cultures not yet cleared. - Ortho spine consulted for neuro exams - ID consulted - Dapto (start 05/28 - - Ceftaroline (start 05/31 - Rifampin (start 06/06 - - Weekly LFT, CK (baseline wnl) - Pt will likely need 6-8 wks IV abx from time of cultures being cleared - Mon, Thur CBC/CMP, trend fever curve - Plan for PICC placement following 5d negative cultures. Will likely require prolonged course (6-8weeks) of IV antibiotics. 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 Still having severe anxiety, feelings of panic and claustrophobia. Walking outside helps with these symptoms. He is concerned this will get worse and he will leave even though he needs to be here for antibiotic treatment. Tell me has a history of starting to feel better during previous admissions but then his anxiety starts to worsen and he has left the hospital even though he knows that is not good for his health. Understands hospital policy, ok to walk on the unit and we will work with him to help these symptoms. GAD7=18 and PHQ9=17 indicating severe anxiety and depression, respectively. Discussed with psychiatry team today for input on medication management. 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 - F/u PCP for further management - lipid panel #Iron Deficiency Anemia - Hb 10-11 throughout hospital course - Low Fe - Start iron supplementation following acute infection Chronic/Stable: HCV, untreated Chronically Elevated liver chemistries + HCV quant on OSH records. Hep A Ab +, c/w immunity. Hep B surface Ab +; Hep B core Ab + in 2022 and negative this admission c/w prior exposure and cleared infection. HIV ab neg 04/2024. - daily CMP, Mg - OP referral at time of discharge #TUD: PRN nicotine replacement therapy Checklist: Consults: ortho, ID, med psych Diet: DIET REGULAR VTE Prophylaxis: lovenox 40 mg qd Code status: Full Code confirmed on admission; girlfriend is DPOA PT/OT: not ordered on admission Discharge Plan: pending clinical improvement Asha Arellano DO, MPH PGY-1 Internal Medicine [facility] Cosigned by Meaghan Zapata MD at 06/09/2024 21:47 EST Associated attestation - Meaghan Zapata MD - 06/09/2024 5822 EST Attestation: Pt seen and examined; I have reviewed Dr. Arellano's note and agree with findings, A and P as outlined above, with my additions in blue. I have personally reviewed the laboratory and radiology results. I have personally spoken with and examined the patient. Meaghan Zapata MD * Remigio Ku MD - 06/09/2024 0698 EST Orthopaedic Spine Progress Note Problem: C3, C4, T10-11, L1-L2 osteomyelitis discitis, MRSA bacteremia 24 Hour Events: NAEON Subjective: Patient doing okay this morning. His main complaint is abdominal pain this morning. No urinary incontinence, no saddle anesthesia, no radicular pain. He has been ambulating. Objective: Blood pressure 103/71, pulse 78, temperature 36.6 ??C (97.9 ??F), temperature source Oral, resp. rate 18, height 175.3 cm (69), weight 87.4 kg (192 lb 9.6 oz), SpO2 93%. 06/07 2300 - 06/08 2259 In: 1210 [P.O.:1210] Out: - General: Awake, alert, NAD Respiratory: Non-labored Extremities: UE: RIGHT Deltoid (C5) 5/5 Biceps (C5, 6) 5/5 Triceps (C7) 5/5 Wrist/Finger Ext (C7, 8) 5/5 Wrist/Finger Flex (C8, T1) 5/5 Interrosei (T1) 5/5 Fishing Rod Marker (T1) 5/5 LEFT Deltoid (C5) 5/5 Biceps (C5, 6) 5/5 Triceps (C7) 5/5 Wrist/Finger Ext (C7, 8) 5/5 Wrist/Finger Flex (C8, T1) 5/5 Interrosei (T1) 5/5 Fishing Rod Marker (T1) 5/5 RIGHT Brachioradialis (C5) 1+, Bicep (C5) 2+, Tricep (C7) 1+ Sensation intact (C5/6/7/8/T1 distributions). 2+ radial pulse. neg Soriano LEFT Brachioradialis (C5) 1+, Bicep (C5) 2+, Tricep (C7) 1+ Sensation intact (C5/6/7/8/T1 distributions). 2+ radial pulse. neg Soriano LE : Right: Iliopsoas(L2, 3) 5/5 Quadricep (L3, 4) 5/5 Hamstrings (L5, S1) 5/5 Tibialis Anterior (L4, 5) 5/5 Gastroc/Soleus (S1, S2) 5/5 Extensor Hallicus (L5) 5/5 Left: Iliopsoas(L2, 3) 5/5 Quadricep (L3, 4) 5/5 Hamstrings (L5, S1) 5/5 Tibialis Anterior (L4, 5) 5/5 Gastroc/Soleus (S1, S2) 5/5 Extensor Hallicus (L5) 5/5 LE Reflex: Right: Patellar 2+, Achilles 1+ Sensation intact (L3/L4/L5/S1 distributions) no clonus, neg Babinksi, 2+ pulse. Left: Patellar 2+, Achilles 1+ Sensation intact (L3/L4/L5/S1 distributions) no clonus, neg Babinksi, 2+ pulse. Labs: Na/K/Cl/CO2: 139/4.9/101/25 (06/08 1508) BUN/Cr/glu/ALT/AST/amyl/lip: 25/0.82/237/22/29/--/-- (06/08 1508) WBC/Hgb/Hct/Plts: 7.05/10.9/31.5/267 (06/08 1637) Assessment: Marcos Camejo is a 44 y.o. year old male with PMH IVDU (on Suboxone who was admitted to the hospital on 2024 with MRSA bacteremia and C3, C4, T10-11, L1-L2 osteomyelitis discitis. Neurologic exam remains stable, ambulatory at the bedside. No indication for orthopedic spine surgery, recommending continuing medical management. Plan: No plan for orthopedic spine surgery Activity: WBAT, AAT, no spine precautions Recommend MMPC Okay for diet Okay for DVT ppx REMIGIO KU MD 6:44 06/09/2024 * Lavonne Duval RN - 06/08/2024 1511 EST Ultrasound dynamic guidance was used for peripheral line insertion. Name of roll up machine operator: Lavonne Duval RN LDAINFO BLOCK Peripheral IV 06/08/24 1510 Anterior;Left Forearm (Active) 06/08/24 1510 Forearm Dressing Change Due: 06/15/24 Size (Gauge): 22 Catheter Length (Inches): 1 Catheter Brand: B Quiñones Introcan Orientation: Anterior;Left Site: Inserted by: Inserted by RN;Ultrasound Guided Insertion attempts: 1 Local Anesthetic: None Skin Antisepsis: 2% Chlorhexidine with IPA Removal Reason : Post Removal Assessment/Care: Size (Gauge): Catheter Length: IV Change Due: Orientation: Criteria to continue met? (chart all reasons) Antibiotics administered IV 06/08/24 151 Date Dressing Changed 06/08/24 06/08/24 151 Dressing date clearly marked on PIV site? Yes 06/08/24 151 Site Assessment Clean/Dry/Intact 06/08/241510 Line Status Flushed;Blood returned 06/08/24 151 Dressing Type Transparent 06/08/24 151 Dressing Status/Care Changed/New 06/08/24 151 Patient response: tolerated well Patient education: provided at bedside Additional study information (vein depth, vein size, compressibility, patency, in-plane vs. [id number], surrounding structures and post procedure available on the images, accessed via the imaging tab.) LAVONNE DUVAL RN 06/08/2024 * Aditya Jain MD - 06/08/2024 1354 EST Infectious Disease Consultation Follow Up Note Admit Date: 2024 Hospital Day: LOS: 13 days Date of Service: 06/08/2024 Followup For: MRSA bacteremia, T10-11, L1-2 osteomyelitis, discitis, and T10-11 early phlegmon and early abscess TTE without obvious vegetations, back pain 24 Hour and hospital Events: 06/03 - MR thoracic spine - 06/05 - repeat CT abdomen - no abdominal fluid collection or psoas collection Subjective: feels like he's improving, less back pain, up and about, no fevers, chills or sweats, no chest pain, no shortness of breath, no N,V abdominal pain Anti-infectives & Other Pertinent Medications: Vancomycin 05/26- 05/28 Daptomycin 05/28 - present (900 mg) Ceftaroline 05/31 - current Rifampin - 06/06 - current Vital Signs: BP 123/86 (BP Cuff Location: Right arm, BP Patient Position: Supine) Pulse 78 Temp36.7 ??C (98 ??F) (Oral) Resp 18 Ht 175.3 cm (69) Wt 87.4 kg (192 lb 9.6 oz) SpO2 97% BMI 28.44 kg/m?? Exam: Sleeping comfortably Data Review: Laboratory data reviewed. Pertinent positives include: Labs: WBC/RBC/HGB/HCT/PLT/ANC8.06/4.56/12.0/35.8/244/-- (05/31 813) Microbiology: 05/26 - BC X 2 - 2/2 sets MRSA 05/27 - BC X 2 - 2/2 sets MRSA 05/29 - BC X 2 - 1/2 sets MRSA 05/30 - BC X 2 - 1/2 MRSA 06/01 - BC X 2 - 2/2 sets MRSA 06/03 - BC X 2 - 1/2 sets MRSA @ 36 hrs 06/04 - BC X 2 - 2/2 sets MRSA 06/05 - BC X 2 - 1/2 sets MRSA 06/08 - BC X 2 - pending Other: 05/29 - MARIBEL - no evidence of valvular vegetation 05/28 - CT chest - bilateral tr pleural effusions 05/28 - CT abdomen - no embolic findings, splenomegaly, mild extrahepatic biliary dilatation Assessment: High grade MRSA bacteremia in the setting of thoracic and lumbar osteomyelitis/discitis. He has hadpersistent bacteremia despite multiple antibiotics and Rifampin was added on 06/06. He also appearsto clinically be improving and he has no clear drainable source of infection other than his known discitis/osteomyelitis and phlegmenous changes. If he continues to be positive despite the additionalantibiotics would image his lumbar spine. Given the length of time he's had positive cultures wouldincrease his Dapto dose as well as his Ceftaroline dose for now. Recommendations: Increase Daptomycin to 1000 mg once per day Increase Ceftaroline to Q 8 If his 06/08 BC are positive would MR his lumbar spine Discussed with primary care team Aditya Jain MD 06/08/2024 13:54 * Virginia Downey MD MPH - 06/08/2024 0712 EST Internal Medicine Progress Note Service Date: 06/08/24 Admit Date: 2024 Reason for Admission: 44 y.o. male admitted with a chief complaint of back pain now with a principal diagnosis of MRSA bacteremia and T10-L2 osteo-discitis w epidural abscess with c/f narrowing of spinal canal 24 Hour Events: NAEO Subjective/Objective Subjective Overall feeling physically better today but now is having anxiety, panic attack feelings and is whyhe has asked to go off unit. When this happens he feels claustrophobic. Review of Systems A ten point review of systems was performed and was negative except for pertinentpositives noted above. Objective Vital Signs: BP Min: 112/70 Max: 123/86 BP MAP Min: 84 mm Hg Max: 93 mm Hg Pulse From Oximetry Min: 89 BPM Max: 99 BPM Resp Min: 18 Max: 20 Temp Min: 36.7 ??C (98 ??F) Max: 37.1 ??C (98.8 ??F) SpO2 Min: 90 % Max: 97 % O2 Device: None No data recorded Weight : 87.4 kg (192 lb 9.6 oz) Physical Exam General: patient laying in bed, in no acute distress; was walking earlier today CVS: RRR, S1+S2 normal, no murmurs/rubs/gallop appreciated Resp: Maintaining spO2 saturation on room air, clear to ausculation bilaterally Abdomen: mild tenderness to palpation, non-distended. NBS. Extremities: No cyanosis or edema. No joint swelling or erythema Neuro: moving all extremities spontaneously. Has mild tenderness to palpation at coccyx, does not radiate, no erythema, swelling or palpable abcess Skin: No Janeway lesions, Osler nodes, splinter hemorrhages in UL. Medications Reviewed Labs Reviewed Micro Reviewed Imaging Reviewed Micro: 2024: 4/4 Bcx positive MRSA @ 14hrs 05/27/2024: 4/4 Bcx positive MRSA @ 15hrs 05/29/2024: 2/4 Bcx positive MRSA @ 18hrs 05/30/2024: 2/4 Bcx positive MRSA @ 19.3hrs 06/01/2024: + MRSA @ 17hrs & 29hrs 06/03/2024: 2/4 Bcx with one set positive MRSA @ 36.1hrs; other set with no growth to date 06/04/2024: 4/4 Bcx with one set positive MRSA @15.9hrs and 19hrs 06/05/2024: 2/4 Bcx with growth @27hrs 06/08/2024: pending Assessment Assessment Marcos Camejo is a 44 y.o. male with a PMHx notable for IVDU (on suboxone), TUD, mood disorder (seroquel) who presented as transfer from [facility] ED for High Grade MRSA bacteremia c/b T10-11, L1-2 osteomyelitis, discitis, and T10-11 early phlegmon and early abscess. ID and orthopedic spine consulted. No surgical intervention indicated at this time. Now on rifampin, ceftaroline, and daptomycin due to persistent positive cultures. If Bcx positive from 06/08 will plan for MR of lumbar spine. C/b by anxiety and feeling like he is having a panic attack this afternoon, gave one dose ativan and will start hydroxyzine prn onight, possible med psych consult in the AM. Plan #Thoracic and lumbar spinal epidural abscess/ T10-L2 osteodiscitis with continued High Grade MRSA bacteremia Cultures not yet cleared. - Ortho spine consulted for neuro exams - ID consulted - Dapto (start 05/28 - - Ceftaroline (start 05/31 - Rifampin (start 06/06 - - Weekly LFT, CK (baseline wnl) - Pt will likely need 6-8 wks IV abx from time of cultures being cleared - Mon, Thur CBC/CMP, trend fever curve - Plan for PICC placement following 5d negative cultures. Will likely require prolonged course (6-8weeks) of IV antibiotics. 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 Understands he can only leave the hospital 1x per day, ok to walk on the unit and we will work with him to help these symptoms. 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 - F/u PCP for further management - lipid panel #Iron Deficiency Anemia - Hb 10- throughout hospital course - Low Fe - Start iron supplementation following acute infection Chronic/Stable: HCV, untreated Chronically Elevated liver chemistries + HCV quant on OSH records. Hep A Ab +, c/w immunity. Hep B surface Ab +; Hep B core Ab + in 2022 and negative this admission c/w prior exposure and cleared infection. HIV ab neg 04/2024. 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 I personally reviewed laboratories studies, radiographic studies, ECG, and prior records. I discussed the case with: the medicine house staff team. I agree with and edited (in Bold) the findings and plan of care as documented in the note above. Virginia Downey MD MPH [facility] Inpatient Service 06/15/2024 6:26 * DevynCamarena Porter - 06/07/2024 1213 EST [facility] Department of Case Management and Social Work Case Management Progress Note Patient Name Level of Care and Accommodation Code: Patient Class: Medically Ready: Y/N Marcos Camejo [facility] Inpatient N Primary Dx: Decisional Capacity: Y/N Primary Support/ CareGiver: Advance Directive Discitis of thoracolumbar region Y girlfriend Advance Directives (For Healthcare) Healthcare Directive: No, patient does not have advance directive for healthcare treatment Information Provided on Healthcare Directives: Yes Information on Healthcare Directives Requested: Yes Patient Requests Assistance: Yes, will do independently Disposition Information Appropriate to transfer back: Y/N Length of Stay (in days): Estimated Date of D/C: LTC Medicaid Status: Y 12 5+ N Primary Care Provider: [facility]/SNF referred: Y/N Bed Offers: Y/N Escalated to Leadership: Y/N Raffi Merida n/a N/a N Mobility Level: Recommended D/C Location Payor: Bedside Mobility Assessment Tool (BMAT) Bedrest or non-weight bearing orders?: No Mobility level determined: Mobility Level 4 use gait belt, walker, crutches, cane, prosthetic(s) Number of caregivers reccommended: 0 [facility]; home once iv abx is completed. Payor: [place] / Plan[place] / Product Type: [place] GL / Barriers to Discharge 11/19/24: High grade MRSA bacteremia in the setting of thoracic and lumbar osteomyelitis/discitis. Despite his negative TTE/MARIBEL echos his clinical picture is most consistent with endocarditis and hisvegetations may no longer be visible as they have flipped off which is why he has spinal osteomyelitis. He has continued to have positive blood cultures now 10 days into his treatment including 6 days of Ceftaroline without an area amenable to source control . IV abx Hx of IVDU Plan Medical readiness. Spoke with Vivian TO at [facility]. They cannot take pt if abx isDaptomycin because of cost and shelf life? ID note and internal medicine note faxed to [facility] [phone]. [employer] Epic chat preferred. 06/07/2024 12:17 06/07/24 12:13 * Virginia Downey MD MPH - 06/07/2024 0712 EST Internal Medicine Progress Note Service Date: 06/07/24 Admit Date: 2024 Reason for Admission: 44 y.o. male admitted with a chief complaint of back pain now with a principal diagnosis of MRSA bacteremia and T10-L2 osteo-discitis w epidural abscess with c/f narrowing of spinal canal 24 Hour Events: NAEO Subjective/Objective Subjective Overall feeling physically better today but now is having anxiety, panic attack feelings and is whyhe has asked to go off unit. When this happens he feels claustrophobic. Review of Systems A ten point review of systems was performed and was negative except for pertinentpositives noted above. Objective Vital Signs: BP Min: 106/68 Max: 110/79 BP MAP Min: 79 mm Hg Max: 90 mm Hg Resp Min: 12 Max: 18 Temp Min: 36.5 ??C (97.7 ??F) Max: 36.9 ??C (98.4 ??F) SpO2 Min: 92 % Max: 95 % O2 Device: None No data recorded Weight : 87.4 kg (192 lb 9.6 oz) Physical Exam General: patient laying in bed, in no acute distress; was walking earlier today CVS: RRR, S1+S2 normal, no murmurs/rubs/gallop appreciated Resp: Maintaining spO2 saturation on room air, clear to ausculation bilaterally Abdomen: mild tenderness to palpation, non-distended. NBS. Extremities: No cyanosis or edema. No joint swelling or erythema Neuro: moving all extremities spontaneously. Has mild tenderness to palpation at coccyx, does not radiate, no erythema, swelling or palpable abcess Skin: No Janeway lesions, Osler nodes, splinter hemorrhages in UL. Medications Reviewed Labs Reviewed Micro Reviewed Imaging Reviewed Micro: 2024: 4/4 Bcx positive MRSA @ 14hrs 05/27/2024: 4/ Bcx positive MRSA @ 15hrs 05/29/2024: 2/ Bcx positive MRSA @ 18hrs 05/30/2024: 2/ Bcx positive MRSA @ 19.3hrs 06/01/2024: + MRSA @ 17hrs & 29hrs 06/03/2024: 2/4 Bcx with one set positive MRSA @ 36.1hrs; other set with no growth to date 06/04/2024: 4/ Bcx with one set positive MRSA @15.9hrs and 19hrs 06/05/2024: 2/4 Bcx with growth @27hrs Assessment Assessment Marcos Camejo is a 44 y.o. male with a PMHx notable for IVDU (on suboxone), TUD, mood disorder (seroquel) who presented as transfer from [facility] ED for High Grade MRSA bacteremia c/b T10-11, L1-2 osteomyelitis, discitis, and T10-11 early phlegmon and early abscess. ID and orthopedic spine consulted. No surgical intervention indicated at this time. Now on rifampin, ceftaroline, and daptomycin due to persistent positive cultures. Plan #Thoracic and lumbar spinal epidural abscess/ T10-L2 osteodiscitis with continued High Grade MRSA bacteremia Cultures not yet cleared. - Ortho spine consulted for neuro exams - ID consulted - Dapto (start 05/28 - - Ceftaroline (start 05/31 - Rifampin 300 mg TID po (start 06/06 - - Weekly LFT, CK (baseline wnl) - Pt will likely need 6-8 wks IV abx from time of cultures being cleared - Mon, Thur CBC/CMP, trend fever curve - Plan for PICC placement following 5d negative cultures. Will likely require prolonged course (6-8weeks) of IV antibiotics. 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 Understands he can only leave the hospital 1x per day, ok to walk on the unit and we will work with him to help these symptoms. 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 - F/u PCP for further management - lipid panel #Iron Deficiency Anemia - Hb 10-11 throughout hospital course - Low Fe - Start iron supplementation following acute infection Chronic/Stable: HCV, untreated Chronically Elevated liver chemistries + HCV quant on OSH records. Hep A Ab +, c/w immunity. Hep B surface Ab +; Hep B core Ab + in 2022 and negative this admission c/w prior exposure and cleared infection. HIV ab neg 04/2024. 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 I personally reviewed laboratories studies, radiographic studies, ECG, and prior records. I discussed the case with: the medicine house staff team. I agree with and edited (in Bold) the findings and plan of care as documented in the note above. I spent a total of 35 minutes in the care of this patient today with >50% on the unit in counseling and coordinating care as described above. Virginia Downey MD MPH [facility] Inpatient Service 06/15/2024 6:25 * Cristobal, Aditya Witt MD - 06/06/2024 1357 EST Infectious Disease Consultation Follow Up Note Admit Date: 2024 Hospital Day: LOS: 11 days Date of Service: 06/06/2024 Followup For: MRSA bacteremia, T10-11, L1-2 osteomyelitis, discitis, and T10-11 early phlegmon and early abscess TTE without obvious vegetations, back pain 24 Hour and hospital Events: 06/05 - repeat CT abdomen - no abdominal fluid collection or psoas collection Subjective: sleeping comfortably - doesn't wake up to name Anti-infectives & Other Pertinent Medications: Vancomycin 05/26- 05/28 Daptomycin 05/28 - present (900 mg) Ceftaroline 05/31 - current Vital Signs: BP 118/71 (BP Cuff Location: Right arm, BP Patient Position: Semi fowlers) Pulse 72 Temp 36.9 ??C (98.4 ??F) (Oral) Resp 20 Ht 175.3 cm (69) Wt 87.4 kg (192 lb 9.6 oz) SpO2 94% BMI 28.44 kg/m?? Exam: Sleeping comfortably Data Review: Laboratory data reviewed. Pertinent positives include: Labs: WBC/RBC/HGB/HCT/PLT/ANC8.06/4.56/12.0/35.8/244/-- (05/31 813) Microbiology: 05/26 - BC X 2 - 2/2 sets MRSA 05/27 - BC X 2 - 2/2 sets MRSA 05/29 - BC X 2 - 1/2 sets MRSA 05/30 - BC X 2 - 1/2 MRSA 06/01 - BC X 2 - 2/2 sets MRSA 06/03 - BC X 2 - 1/2 sets MRSA @ 36 hrs 06/04 - BC X 2 - 2/2 sets MRSA 06/05 - BC X 2 - 1/2 sets MRSA Other: 05/29 - MARIBEL - no evidence of valvular vegetation 05/28 - CT chest - bilateral tr pleural effusions 05/28 - CT abdomen - no embolic findings, splenomegaly, mild extrahepatic biliary dilatation Assessment: High grade MRSA bacteremia in the setting of thoracic and lumbar osteomyelitis/discitis. Despite his negative TTE/MARIBEL echos his clinical picture is most consistent with endocarditis and his vegetations may no longer be visible as they have flipped off which is why he has spinal osteomyelitis. He has continued to have positive blood cultures now 10 days into his treatment including 6 days of Ceftaroline without an area amenable to source control. Is repeat CT abdomen did not show another source for drainable infection. . Recommendations: Ceftaroline susceptibilies are pending from his most recent BC Would add Rifampin 300 mg TID po Discussed with primary care team Aditya Jain MD 06/06/2024 13:57 * Virginia Downey MD MPH - 06/06/2024 5920 EST Internal Medicine Progress Note Service Date: 06/06/24 Admit Date: 2024 Reason for Admission: 44 y.o. male admitted with a chief complaint of back pain now with a principal diagnosis of MRSA bacteremia and T10-L2 osteo-discitis w epidural abscess with c/f narrowing of spinal canal 24 Hour Events: NAEO Subjective/Objective Subjective Pain the same this morning, severe. No changes to neuro exam. Wants to do dilaudid before suboxone this morning. No BM yet. No f/c. No joint pain or swelling. Has pain relief from Toradol Review of Systems A ten point review of systems was performed and was negative except for pertinentpositives noted above. Objective Vital Signs: BP Min: 99/66 Max: 118/71 BP MAP Min: 77 mm Hg Max: 84 mm Hg Pulse From Oximetry Min: 69 BPM Max: 69 BPM Resp Min: 14 Max: 20 Temp Min: 36.8 ??C (98.2 ??F) Max: 36.9 ??C (98.4 ??F) SpO2 Min: 94 % Max: 95 % O2 Device: None O2 Flow Rate (L/min) Min: 0 l/min Max: 0 l/min Weight : 87.4 kg (192 lb 9.6 oz) Physical Exam General: patient laying in bed, in no acute distress CVS: RRR, S1+S2 normal, no murmurs/rubs/gallop appreciated Resp: Maintaining spO2 saturation on room air, clear to ausculation bilaterally Abdomen: mild tenderness to palpation, non-distended. NBS. Extremities: No cyanosis or edema. No joint swelling or erythema Neuro: moving all extremities spontaneously. Has mild tenderness to palpation at coccyx, does not radiate, no erythema, swelling or palpable abcess Skin: No Janeway lesions, Osler nodes, splinter hemorrhages in UL. Medications Reviewed Labs Reviewed Micro Reviewed Imaging CT ab/pel w contrast 06/06 with no abscess or new findings IMPRESSION 1. Findings of discitis/osteomyelitis of the T10-T11 disc as well as the right 11th costovertebral junction. Please see the same day MRI of the thoracic spine for further evaluation. 2. No bowel inflammation or organizing fluid collection within the abdomen or pelvis. Micro: 2024: 4/4 Bcx positive MRSA @ 14hrs 05/27/2024: 4/4 Bcx positive MRSA @ 15hrs 05/29/2024: 2/4 Bcx positive MRSA @ 18hrs 05/30/2024: 2/4 Bcx positive MRSA @ 19.3hrs 06/01/2024: + MRSA @ 17hrs & 29hrs 06/03/2024: 2/4 Bcx with one set positive MRSA @ 36.1hrs; other set with no growth to date 06/04/2024: 4/4 Bcx with one set positive MRSA @15.9hrs and 19hrs 06/05/2024: 4/ Bcx collected at 09:40 no growth to date Assessment Assessment Marcos Camejo is a 44 y.o. male with a PMHx notable for IVDU (on suboxone), TUD, mood disorder (seroquel) who presented as transfer from [facility] ED for High Grade MRSA bacteremia c/b T10-11, L1-2 osteomyelitis, discitis, and T10-11 early phlegmon and early abscess. ID and orthopedic spine consulted. No surgical intervention indicated at this time. Current abx are ceftaroline and daptomycin due to persistently positive cultures. CT abd/pel 06/06 done given persistent bacteremia and abdominal pain showing no fluid formation, or abscess, or new findings. Plan #Thoracic and lumbar spinal epidural abscess/ T10-L2 osteodiscitis with continued High Grade MRSA bacteremia Cultures not yet cleared. - Ortho spine consulted for neuro exams - ID consulted - Dapto 05/28 (no e/o pulm infection or septic emboli) - Ceftaroline 05/31 d/t persistently + Bcx - Weekly LFT, CK (baseline wnl) - Pt will likely need 6-8 wks IV abx from time of cultures being cleared - Mon, Thur CBC/CMP, trend fever curve - Plan for PICC placement following 5d negative cultures. Will likely require prolonged course (6-8weeks) of IV antibiotics. 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 - F/u PCP for further management - lipid panel #Iron Deficiency Anemia - Hb 10-11 throughout hospital course - Low Fe - Start iron supplementation following acute infection Chronic/Stable: HCV, untreated Chronically Elevated liver chemistries + HCV quant on OSH records. Hep A Ab +, c/w immunity. Hep B surface Ab +; Hep B core Ab + in 2022 and negative this admission c/w prior exposure and cleared infection. HIV ab neg 04/2024. 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 I personally reviewed laboratories studies, radiographic studies, ECG, and prior records. I discussed the case with: the medicine house staff team. I agree with and edited (in Blue) the findings and plan of care as documented in the note above. Virginia Downey MD MPH [facility] Inpatient Service 06/06/2024 12:23 * Porter Nicole - 06/05/2024 1015 EST [facility] Department of Case Management and Social Work Case Management Progress Note Patient Name Level of Care and Accommodation Code: Patient Class: Medically Ready: Y/N Marcos Camejo Acute General Inpatient N Primary Dx: Decisional Capacity: Y/N Primary Support/ CareGiver: Advance Directive Discitis of thoracolumbar region Y girlfriend Advance Directives (For Healthcare) Healthcare Directive: No, patient does not have advance directive for healthcare treatment Information Provided on Healthcare Directives: Yes Information on Healthcare Directives Requested: Yes Patient Requests Assistance: Yes, will do independently Disposition Information Appropriate to transfer back: Y/N Length of Stay (in days): Estimated Date of D/C: LTC Medicaid Status: N 10 5+ N Primary Care Provider: AR/KAYA/SNF referred: Y/N Bed Offers: Y/N Escalated to Leadership: Y/N Raffi Palmer N/a N Mobility Level: Recommended D/C Location Payor: Bedside Mobility Assessment Tool (BMAT) Mobility level determined: (Stretcher Best at this time) Transfer to [facility] in [place] Payor: MEDICAID [place] / Plan[place] / Product Type: [place] GL / Barriers to Discharge IV abx hx of IVDU. Pt not medically ready Plan DC back to [facility] pending medical readiness and bed offer. [employer] Epic chat preferred. 06/05/2024 10:17 06/05/24 10:15 * Virginia Downey MD MPH - 06/05/2024 0653 EST Internal Medicine Progress Note Service Date: 06/05/24 Admit Date: 2024 Reason for Admission: 44 y.o. male admitted with a chief complaint of back pain now with a principal diagnosis of MRSA bacteremia and T10-L2 osteo-discitis w epidural abscess with c/f narrowing of spinal canal 24 Hour Events: NAEO Subjective/Objective Subjective Overnight had severe pain with ambulation and BM. Had tingling up and down spine for about 2 hours,denies any limb weakness at this time, and resolved. No palpations, changes to abdominal pain. No f/c. No joint pain or swelling. No rashes. No sob. No h/a. Review of Systems A ten point review of systems was performed and was negative except for pertinentpositives noted above. Objective Vital Signs: BP Min: 106/76 Max: 115/76 BP MAP Min: 86 mm Hg Max: 86 mm Hg Pulse From Oximetry Min: 69 BPM Max: 85 BPM Resp Min: 15 Max: 16 Temp Min: 36.6 ??C (97.8 ??F) Max: 36.8 ??C (98.2 ??F) SpO2 Min: 92 % Max: 94 % O2 Device: None No data recorded Weight : 87.4 kg (192 lb 9.6 oz) Physical Exam General: patient laying in bed, in no acute distress CVS: RRR, S1+S2 normal, no murmurs/rubs/gallop appreciated Resp: Maintaining spO2 saturation on room air, clear to ausculation bilaterally Abdomen: mild tenderness to palpation, non-distended. NBS. Extremities: No cyanosis or edema. No joint swelling or erythema Neuro: moving all extremities spontaneously Skin: No Janeway lesions, Osler nodes, splinter hemorrhages in UL. Medications Reviewed Labs Reviewed Micro Reviewed Imaging MRI thoracic spine 06/04/2024: IMPRESSION 1. Discitis osteomyelitis at the T10-11 [...] osteomyelitis of the adjacent right 11th rib. Micro: 2024: 4/4 Bcx positive MRSA @ 14hrs 05/27/2024: 4/4 Bcx positive MRSA @ 15hrs 05/29/2024: 2/4 Bcx positive MRSA @ 18hrs 05/30/2024: 2/4 Bcx positive MRSA @ 19.3hrs 06/01/2024: + MRSA @ 17hrs & 29hrs 06/03/2024: 2/4 Bcx with one set positive MRSA @ 36.1hrs 06/04/2024: 4/4 Bcx with one set positive MRSA @15.9hrs 06/05/2024: 10/20 Bcx collected at 09:40 Assessment Assessment Marcos Camejo is a 44 y.o. male with a PMHx notable for IVDU (on suboxone), TUD, mood disorder (seroquel) who presented as transfer from [facility] ED for High Grade MRSA bacteremia c/b T10-11, L1-2 osteomyelitis, discitis, and T10-11 early phlegmon and early abscess. ID and orthopedic spine consulted. Current abx are ceftaroline and daptomycin due to persistently positive cultures. Repeat blood cultures taken 06/03 and 06/04 now with growth. No surgical intervention indicated at thistime. Patient with no neuro deficients. Obtaining abdominal abd/pel for assessment of possible collection given abdominal pain and that cultures have not cleared. Plan #Thoracic and lumbar spinal epidural abscess/ T10-L2 osteodiscitis with continued High Grade MRSA bacteremia Cultures persistently positive x7d making patient high risk for IE, however, TTE 05/26 & MARIBEL 05/29 w/o valvular disease/vegetations. Cultures not yet cleared. - Ortho spine consulted - ID consulted - S/p Vanc 05/26-05/28 - Transitioned to dapto 05/28 (no e/o pulm infection or septic emboli) - Addition of ceftaroline 05/31 d/t persistently + Bcx - Weekly LFT, CK (baseline wnl) - Pt will likely need 6-8 wks IV abx from time of cultures being cleared - Mon, Thur CBC/CMP, trend fever curve - Plan for PICC placement following 5d negative cultures. Will likely require prolonged course (6-8weeks) of IV antibiotics. 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 - F/u PCP for further management - lipid panel #Iron Deficiency Anemia - Hb 10-11 throughout hospital course - Low Fe - Start iron supplementation following acute infection Chronic/Stable: HCV, untreated Chronically Elevated liver chemistries + HCV quant on OSH records. Hep A Ab +, c/w immunity. Hep B surface Ab +; Hep B core Ab + in 2022 and negative this admission c/w prior exposure and cleared infection. HIV ab neg 04/2024. 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 I personally reviewed laboratories studies, radiographic studies, ECG, and prior records. I discussed the case with: the medicine house staff team. I agree with and edited (in Blue, if needed) the findings and plan of care as documented in the note above. I spent a total of 55 minutes on the date of this encounter meeting with the patient and reviewing documentation/coordinating care as described in the above note. Virginia Downey MD MPH [facility] Inpatient Service 06/05/2024 13:13 * Virginia Downey MD MPH - 06/04/2024 0721 EST Internal Medicine Progress Note Service Date: 06/04/24 Admit Date: 2024 Reason for Admission: 44 y.o. male admitted with a chief complaint of back pain now with a principal diagnosis of MRSA bacteremia and T10-L2 osteo-discitis w epidural abscess with c/f narrowing of spinal canal 24 Hour Events: NAEO Subjective/Objective Subjective Continues to have back pain that radiates to his abdomin on the left side. Bloating improved today.No BM yesterday, prefers to take bowel meds tonight. Would like to decrease suboxone dose hydromorphone today. No changes to bowel or bladder function. Ambulating at baseline. Review of Systems A ten point review of systems was performed and was negative except for pertinentpositives noted above. Objective Vital Signs: BP Min: 116/69 Max: 127/80 BP MAP Min: 84 mm Hg Max: 93 mm Hg Pulse From Oximetry Min: 74 BPM Max: 80 BPM Resp Min: 12 Max: 18 Temp Min: 36.7 ??C (98 ??F) Max: 36.9 ??C (98.4 ??F) SpO2 Min: 94 % Max: 97 % O2 Device: None No data recorded Weight : 87.4 kg (192 lb 9.6 oz) Physical Exam General: patient laying in bed, in no acute distress, aox3 CVS: RRR, S1+S2 normal, no murmurs/rubs/gallop appreciated Resp: Maintaining spO2 saturation on room air, clear to ausculation bilaterally Abdomen: mild tenderness to palpation, non-distended. NBS. Extremities: No cyanosis or edema Neuro: moving all extremities spontaneously Skin: No Janeway lesions, Osler nodes, splinter hemorrhages in UL. Medications Reviewed Labs Reviewed Micro Reviewed Imaging MRI thoracic spine 06/04/2024: IMPRESSION 1. Discitis osteomyelitis at the T10-11 [...] osteomyelitis of the adjacent right 11th rib. Micro: 2024: 4/4 Bcx positive MRSA @ 14hrs 05/27/2024: 4/4 Bcx positive MRSA @ 15hrs 05/29/2024: 2/4 Bcx positive MRSA @ 18hrs 05/30/2024: 2/4 Bcx positive MRSA @ 19.3hrs 06/01/2024: + MRSA @ 17hrs & 29hrs 06/03/2024: 4/4 Bcx drawn at 08:28 with no growth to date 06/04/2024: 4/ Bcx drawn at 11:44 Assessment Assessment Marcos Camejo is a 44 y.o. male with a PMHx notable for IVDU (on suboxone), TUD, mood disorder (seroquel) who presented as transfer from [facility] ED for High Grade MRSA bacteremia c/b T10-11, L1-2 osteomyelitis, discitis, and T10-11 early phlegmon and early abscess. ID and orthopedic spine consulted. Current abx are ceftaroline and daptomycin due to persistently positive cultures. No surgical intervention indicated at this time. Patient will likely require prolonged course (6-8 weeks) of IV antibiotics. Repeat blood cultures taken 06/03 with no growth yet. Discussed repeat MRI thoracic spine from 06/04 with ortho spine which showed some cord compression and re-demonstrated severe stenosis, stable from last. Patient with no neuro deficients. No change in management at this time. Plan #Thoracic and lumbar spinal epidural abscess/ T10-L2 osteodiscitis #High Grade MRSA bacteremia No symptoms of cauda equina. Cultures persistently positive x7d making patient high risk for IE, however, TTE 05/26 & MARIBEL 05/29 w/o valvular disease/vegetations. Cultures not yet cleared. - Ortho spine consulted: - ID consulted - S/p Vanc 05/26-05/28 - Transitioned to dapto 05/28 (no e/o pulm infection or septic emboli) - Addition of ceftaroline 05/31 d/t persistently + Bcx - Weekly LFT, CK (baseline wnl) - Pt will likely need 6-8 wks IV abx from time of cultures being cleared - Mon, Thur CBC/CMP, trend fever curve - Plan for PICC placement following 5d negative cultures - f/I repeat cultures from 06/03 - f/u MRI thoracic spine given worsening pain in abd at t10/11 location. 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 - F/u PCP for further management - lipid panel #Iron Deficiency Anemia - Hb 10-11 throughout hospital course - Low Fe - Start iron supplementation following acute infection Chronic/Stable: HCV, untreated Chronically Elevated liver chemistries + HCV quant on OSH records. Hep A Ab +, c/w immunity. Hep B surface Ab +; Hep B core Ab + in 2022 and negative this admission c/w prior exposure and cleared infection. HIV ab neg 04/2024. 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 I personally reviewed laboratories studies, radiographic studies, ECG, and prior records. I discussed the case with: the medicine house staff team. I agree with and edited (in Blue) the findings and plan of care as documented in the note above. Virginia Downey MD MPH [facility] Inpatient Service 06/05/2024 7:55 * Virginia Downey MD MPH - 06/03/2024 0811 EST Internal Medicine Progress Note Service Date: 06/03/24 Admit Date: 2024 Reason for Admission: 44 y.o. male admitted with a chief complaint of back pain now with a principal diagnosis of MRSA bacteremia and T10-L2 osteo-discitis w epidural abscess with c/f narrowing of spinal canal 24 Hour Events: NAEO Subjective/Objective Subjective Pain back, at 7/10 and also reporting epigastric pain and abdominal bloating. No bowel/bladder retention or incontinence, no perineal numbness. Ambulating c/w baseline. Review of Systems A ten point review of systems was performed and was negative except for pertinentpositives noted above. Objective Vital Signs: BP Min: 109/74 Max: 123/80 BP MAP Min: 93 mm Hg Max: 94 mm Hg Pulse From Oximetry Min: 82 BPM Max: 85 BPM Resp Min: 12 Max: 16 Temp Min: 36.4 ??C (97.5 ??F) Max: 36.8 ??C (98.2 ??F) SpO2 Min: 92 % Max: 95 % O2 Device: None O2 Flow Rate (L/min) Min: 0 l/min Max: 0 l/min Weight : 86.2 kg (190 lb) Physical Exam General: patient laying in bed, in no acute distress CVS: RRR, S1+S2 normal, no murmurs/rubs/gallop appreciated Resp: Maintaining spO2 saturation on room air, clear to ausculation bilaterally Abdomen: Hard, non-tender, non-distended. NBS. Extremities: No cyanosis or edema Neuro: moving all extremities spontaneously Skin: No Janeway lesions, Osler nodes, splinter hemorrhages in UL. Medications Reviewed Labs Reviewed Micro Reviewed Imaging Reviewed MARIBEL Left Ventricle: The left ventricular cavity was normal in size. Left ventricular systolic function was normal with an ejection fraction of 55-60% by visual estimation. Right Ventricle: The right ventricular cavity was mildly dilated in size. Right ventricular systolic function was normal by visual estimation. Left Atrium: The left atrial appendage was well visualized. There was no thrombus in the left atrial appendage. 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 There was a small PFO visualized by color Doppler. Additionally there appears to be a small secundum ASD with left to right shunting visualized by color Doppler. Right Atrium: Right atrial cavity was dilated. No evidence of valvular vegetation. Micro: 2024: 4/4 Bcx positive MRSA @ 14hrs 05/27/2024: 4/4 Bcx positive MRSA @ 15hrs 05/29/2024: 2/4 Bcx positive MRSA @ 18hrs 05/30/2024: 2/4 Bcx positive MRSA @ 19.3hrs 06/01/2024: + MRSA @ 17hrs & 29hrs 06/03/2024: Bcx to be drawn in AM Assessment Assessment Marcos Camejo is a 44 y.o. male with a PMHx notable for IVDU (on suboxone), TUD, mood disorder (seroquel) who presented as transfer from [facility] ED for High Grade MRSA bacteremia c/b thoracic and lumbar spinal abscesses. ID consulted for vertebral osteomyelitis/discitis with recommendation for ceftaroline and daptomycin due to persistently positive cultures. Per orthopedic spine service, no surgical intervention indicated at this time. Patient will likely require prolonged course (6-8 weeks) of IV antibiotics. Repeat blood cultures taken 06/03 and MRI thoracic spine for assessment of evolving abscess - he is reporting epigastric pain today could be visceral pain from referred so matic pain at T10 level. Plan #Thoracic and lumbar spinal epidural abscess/ T10-L2 osteodiscitis #High Grade MRSA bacteremia No symptoms of cauda equina. Cultures persistently positive x7d making patient high risk for IE, however, TTE 05/26 & MARIBEL 05/29 w/o valvular disease/vegetations. Cultures not yet cleared. - Ortho spine consulted: - ID consulted - S/p Vanc 05/26-05/28 - Transitioned to dapto 05/28 (no e/o pulm infection or septic emboli) - Addition of ceftaroline 05/31 d/t persistently + Bcx - Weekly LFT, CK (baseline wnl) - Pt will likely need 6-8 wks IV abx from time of cultures being cleared - Mon, Thur CBC/CMP, trend fever curve - Plan for PICC placement following 5d negative cultures - f/I repeat cultures from 06/03 - f/u MRI thoracic spine given worsening pain in abd at t10/11 location. 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 - F/u PCP for further management - lipid panel #Iron Deficiency Anemia - Hb - throughout hospital course - Low Fe - Start iron supplementation following acute infection Chronic/Stable: HCV, untreated Chronically Elevated liver chemistries + HCV quant on OSH records. Hep A Ab +, c/w immunity. Hep B surface Ab +; Hep B core Ab + in 2022 and negative this admission c/w prior exposure and cleared infection. HIV ab neg 04/2024. 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 I personally reviewed laboratories studies, radiographic studies, ECG, and prior records. I discussed the case with: the medicine house staff team. I agree with and edited (in Blue, if needed) the findings and plan of care as documented in the note above. Virginia Downey MD MPH [facility] Inpatient Service 06/03/2024 17:10 * Trav Perez MD - 06/03/2024 0803 EST Orthopaedic Spine Progress Note Admit Date: 2024 Hospital Day: LOS: 8 days Problem: T10-11, L1-L2 osteomyelitis discitis, MRSA bacteremia Subjective: 24 hours None VSS. NAEO. Pain having a spike in back pain this morning. He says that overall his pain is trendingin a good direction but is having a particularly painful morning this morning. No numbness or tingling of bilateral lower extremities. No fever or chills overnight. Objective: Blood pressure 123/80, pulse 86, temperature 36.4 ??C (97.5 ??F), temperature source Oral, resp. rate 12, height 175.3 cm (69), weight 86.2 kg (190 lb), SpO2 93%. 06/02 0700 - 06/03 0659 In: 980 [P.O.:680] Out: - General: NAD, A/O x3 Cardio: Regular rate as judged by DP pulse, 2+ Respiratory: Non-labored on room air Focused MSK: LE : Right: Iliopsoas(L2, 3) 5/5 Quadricep (L3, 4) 5/5 Hamstrings (L5, S1) 5/5 Tibialis Anterior (L4, 5) 5/5 Gastroc/Soleus (S1, S2) 5/5 Extensor Hallicus (L5) 5/5 Left: Iliopsoas(L2, 3) 5/5 Quadricep (L3, 4) 5/5 Hamstrings (L5, S1) 5/5 Tibialis Anterior (L4, 5) 5/5 Gastroc/Soleus (S1, S2) 5/5 Extensor Hallicus (L5) 5/5 LE Reflex: Right: Patellar 2+, Achilles 2+ Sensation intact (L3/L4/L5/S1 distributions) 2 beats clonus, 2+ DP pulse. Left: Patellar 2+, Achilles 2+ Sensation intact (L3/L4/L5/S1 distributions) 3 beats clonus, 2+ DP pulse. Labs: WBC/Hgb/Hct/Plts: 8.06/12.0/35.8/244 (05/31 813) Na/K/Cl/CO2: 138/4.8/101/24 (05/31 813) BUN/Cr/glu/ALT/AST/amyl/lip: --/--/--/04/01/--/-- (06/01 800) Assessment: Marcos Camejo is a 44 y.o. year old male with PMH IVDU (on Suboxone who was admitted to the hospital on 2024 with MRSA bacteremia and T10-11, L1-L2 osteomyelitis discitis. Neurologic examination remained stable. Patient is ambulatory.. Plan: No plan for operative intervention for spine Activity: WBAT, AAT No spine precautions No need for additional advanced imaging from an orthopedic perspective unless patient develops new neurologic deficits Pain control: multimodal Antibiotics: Per primary and ID, on daptomycin, ceftaroline Diet: Okay from spine perspective Anticoagulation: Okay from spine perspective Trav Perez MD Orthopaedics PGY-4 Pager #[phone] 06/03/24 8:03 * Virginia Downey MD MPH - 06/02/2024 1546 EST Internal Medicine Progress Note Service Date: 06/02/24 Admit Date: 2024 Reason for Admission: 44 y.o. male admitted with a chief complaint of back pain now with a principal diagnosis of MRSA bacteremia and T10-L2 osteo-discitis w epidural abscess with c/f narrowing of spinal canal 24 Hour Events: NAEO Subjective/Objective Subjective Slept comfortably overnight. Pain significantly improved. Patient requesting to go back to home suboxone dosing. No additional concerns. No BLE numbness/tingling, weakness, no FND. No bowel/bladder retention or incontinence, no perineal numbness. Ambulating c/w baseline. Feels bloated. Review of Systems A ten point review of systems was performed and was negative except for pertinentpositives noted above. Objective Vital Signs: BP Min: 108/79 Max: 111/67 BP MAP Min: 81 mm Hg Max: 88 mm Hg Pulse From Oximetry Min: 89 BPM Max: 89 BPM Resp Min: 16 Max: 16 Temp Min: 36.7 ??C (98.1 ??F) Max: 37.1 ??C (98.7 ??F) SpO2 Min: 92 % Max: 96 % O2 Device: None O2 Flow Rate (L/min) Min: 0 l/min Max: 0 l/min Weight : 86.2 kg (190 lb) Physical Exam General: patient laying in bed, in no acute distress CVS: RRR, S1+S2 normal, no murmurs/rubs/gallop appreciated Resp: Maintaining spO2 saturation on room air, clear to ausculation bilaterally Abdomen: Hard, non-tender, non-distended. NBS. Extremities: No cyanosis or edema Neuro: moving all extremities spontaneously Skin: No Janeway lesions, Osler nodes, splinter hemorrhages in UL. Medications Reviewed Labs Reviewed Micro Reviewed Imaging Reviewed MARIBEL Left Ventricle: The left ventricular cavity was normal in size. Left ventricular systolic function was normal with an ejection fraction of 55-60% by visual estimation. Right Ventricle: The right ventricular cavity was mildly dilated in size. Right ventricular systolic function was normal by visual estimation. Left Atrium: The left atrial appendage was well visualized. There was no thrombus in the left atrial appendage. 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 There was a small PFO visualized by color Doppler. Additionally there appears to be a small secundum ASD with left to right shunting visualized by color Doppler. Right Atrium: Right atrial cavity was dilated. No evidence of valvular vegetation. Micro: 2024: 4/4 Bcx positive MRSA @ 14hrs 05/27/2024: 4/4 Bcx positive MRSA @ 15hrs 05/29/2024: 2/4 Bcx positive MRSA @ 18hrs 05/30/2024: 2/4 Bcx positive MRSA @ 19.3hrs 06/01/2024: + MRSA @ 17hrs & 29hrs 06/03/2024: Bcx to be drawn in AM Assessment Assessment Marcos Camejo is a 44 y.o. male with a PMHx notable for IVDU (on suboxone), TUD, mood disorder (seroquel) who presented as transfer from [facility] ED for High Grade MRSA bacteremia c/b thoracic and lumbar spinal abscesses. ID consulted for vertebral osteomyelitis/discitis with recommendation for ceftaroline and daptomycin due to persistently positive cultures. Per orthopedic spine service, no surgical intervention indicated at this time. Patient will likely require prolonged course (6-8 weeks) of IV antibiotics. Plan #Thoracic and lumbar spinal epidural abscess/ T10-L2 osteodiscitis #High Grade MRSA bacteremia No symptoms of cauda equina. Cultures persistently positive x7d making patient high risk for IE, however, TTE 05/26 & MARIBEL 05/29 w/o valvular disease/vegetations. Cultures not yet cleared. - Ortho spine consulted: no indication for surgical intervention unless neuro deficits - ID consulted - S/p Vanc 05/26-05/28 - Transitioned to dapto 05/28 (no e/o pulm infection or septic emboli) - Addition of ceftaroline 05/31 d/t persistently + Bcx - Weekly LFT, CK (baseline wnl) - Pt will likely need 6-8 wks IV abx from time of cultures being cleared - Mon, Thur CBC/CMP, trend fever curve - Most recent Bcx drawn 06/01 - Repeat cultures in AM w/ labs - MARIBEL 05/29 w/o evidence of IE or valvular disease - Plan for PICC placement following 5d negative cultures #Pain management - Acetaminophen 1g QID - gabapentin 200 mg TID - Hydromorphone 6 mg PO Q4 PRN - Ibuprofen 400 mg TID (plus PPI daily for PUD ppx while hospitalized) - cyclobenzaprine 10 mg 3 times daily as needed - 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 - F/u PCP for further management - lipid panel #Iron Deficiency Anemia - Hb 10-11 throughout hospital course - Low Fe - Start iron supplementation following acute infection Chronic/Stable: HCV, untreated Chronically Elevated liver chemistries + HCV quant on OSH records. Hep A Ab +, c/w immunity. Hep B surface Ab +; Hep B core Ab + in 2022 and negative this admission c/w prior exposure and cleared infection. HIV ab neg 04/2024. 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 I personally reviewed laboratories studies, radiographic studies, ECG, and prior records. I discussed the case with: the medicine house staff team. I agree with and edited (in Blue) the findings and plan of care as documented in the note above. Virginia Downey MD MPH [facility] Inpatient Service 06/03/2024 8:01 * Porter Nicole - 06/01/2024 0824 EST [facility] Department of Case Management and Social Work Case Management Progress Note Patient Name Level of Care and Accommodation Code: Patient Class: Medically Ready: Y/N Marcos Camejo Acute General Inpatient N Primary Dx: Decisional Capacity: Y/N Primary Support/ CareGiver: Advance Directive Discitis of thoracolumbar region Y girlfriend Advance Directives (For Healthcare) Healthcare Directive: No, patient does not have advance directive for healthcare treatment Information Provided on Healthcare Directives: Yes Information on Healthcare Directives Requested: Yes Patient Requests Assistance: Yes, will do independently Disposition Information Appropriate to transfer back: Y/N Length of Stay (in days): Estimated Date of D/C: LTC Medicaid Status: not yet 6 5+ Medicaid-not LT? Primary Care Provider: [facility]/SNF referred: Y/N Bed Offers: Y/N Escalated to Leadership: Y/N Raffi Merida n/a N/a N Mobility Level: Recommended D/C Location Payor: Bedside Mobility Assessment Tool (BMAT) Mobility level determined: (Stretcher Best at this time) [facility] Payor: [place] / Plan[place] / Product Type: [place] GL / Barriers to Discharge Medical readiness. IV abx; hx of IVDU. Plan: CM left message for Viivan Castro director social welfare at [facility] [phone] about potential t/f back to [facility] for IV abx when medically ready. [employer] Epic chat preferred. 06/01/2024 8:28 06/01/24 8:25 * Ariadna Prescott MD - 06/01/2024 0636 EST Orthopaedic Spine Progress Note Admit Date: 2024 Hospital Day: LOS: 6 days Problem: T10-11, L1-L2 osteomyelitis discitis, MRSA bacteremia Subjective: 24 hours: -Ceftaroline added Continues to be ambulatory. Denies any pain down his arm or legs. Reports no numbness in his extremities or saddle region. Has been vodiign without difficulty. Objective: Blood pressure 97/70, pulse 82, temperature 37 ??C (98.6 ??F), temperature source Oral, resp. rate 16, height 175.3 cm (69), weight 86.2 kg (190 lb), SpO2 95%. 05/300 - 05/31 2259 In: 2240 [P.O.:2240] Out: - General: No acute distress Cardio: Appears well perfused Respiratory: Non-labored Focused MSK: Right Upper Extremity Left Upper Extremity Deltoid (C5) 5/5 Biceps (C5, 6) 5/5 Triceps (C7) 5/5 Wrist/Finger Ext (C7, 8) 5/5 Wrist/Finger Flex (C8, T1) 5/5 Interrosei (T1) 5/5 Fishing Rod Marker (T1) 5/5 Deltoid (C5) 5/5 Biceps (C5, 6) 5/5 Triceps (C7) 5/5 Wrist/Finger Ext (C7, 8) 5/5 Wrist/Finger Flex (C8, T1) 5/5 Interrosei (T1) 5/5 Fishing Rod Marker (T1) 5/5 Sensation intact (C5/6/7/8/T1 distributions). Sensation intact (C5/6/7/8/T1 distributions). Right Lower Extremity Left Lower Extremity Iliopsoas(L2, 3) 5/5 Quadricep (L3, 4) 5/5 Hamstrings (L5, S1) 5/5 Tibialis Anterior (L4, 5) 5/5 Gastroc/Soleus (S1, S2) 5/5 Extensor Hallicus (L5) 5/5 Iliopsoas(L2, 3) 5/5 Quadricep (L3, 4) 5/5 Hamstrings (L5, S1) 5/5 Tibialis Anterior (L4, 5) 5/5 Gastroc/Soleus (S1, S2) 5/5 Extensor Hallicus (L5) 5/5 Sensation intact (L3/L4/L5/S1 distributions) Sensation intact (L3/L4/L5/S1 distributions) Labs: WBC/Hgb/Hct/Plts: 8.06/12.0/35.8/244 (05/31 813) Na/K/Cl/CO2: 138/4.8/101/24 (05/31 813) BUN/Cr/glu/ALT/AST/amyl/lip: 14/0.71/122/--/--/--/-- (05/31 813) Lab Results Component Value Date WBC 8.06 05/31/2024 WBC 6.24 05/30/2024 WBC 6.69 05/29/2024 CRP 210.7 (H) 2024 CRP 14.1 (H) 02/01/2020 CRP 11.9 (H) 12/24/2019 SEDRATE 61 (H) 2024 SEDRATE 1 07/01/1999 Assessment: Marcos Camejo is a 44 y.o. year old male with PMH IVDU (on Suboxone) who was admitted to the hospital on 2024 with MRSA bacteremia and T10-11, L1-L2 osteomyelitis discitis. On exam is neuro intact this morning and continues to be ambulatory. Plan: No plan for operative intervention for his spine Activity: WBAT, AAT No spine precautions No need for additional advanced imaging from an orthopedic spine perspective unless the patient develops new neurologic deficits Pain control: multimodal Antibiotics: Per primary and ID, on daptomycin Diet: Okay from orthopedic spine perspective Anticoagulation: Okay from spine perspective ARIADNA PRESCOTT MD * Kayley Mendoza MD - 06/01/2024 0604 EST Internal Medicine Progress Note Service Date: 06/01/24 Admit Date: 2024 Reason for Admission: 44 y.o. male admitted with a chief complaint of back pain now with a principal diagnosis of MRSA bacteremia and T10-L2 osteo-discitis w epidural abscess with c/f narrowing of spinal canal 24 Hour Events: NAEO Subjective/Objective Subjective Slept comfortably overnight. Rates pain 7/10. Intermittent throbbing pain over midline lumbar spine. No additional concerns. No BLE numbness/tingling, weakness, no FND. No bowel/bladder retention or incontinence, no perineal numbness. Ambulating c/w baseline. Review of Systems A ten point review of systems was performed and was negative except for pertinentpositives noted above. Objective Vital Signs: BP Min: 97/70 Max: 104/76 BP MAP Min: 85 mm Hg Max: 85 mm Hg Pulse From Oximetry Min: 77 BPM Max: 77 BPM Resp Min: 16 Max: 16 Temp Min: 36.7 ??C (98 ??F) Max: 37 ??C (98.6 ??F) SpO2 Min: 93 % Max: 95 % O2 Device: None O2 Flow Rate (L/min) Min: 0 l/min Max: 0 l/min Weight : 86.2 kg (190 lb) Physical Exam General: patient laying in bed, in no acute distress CVS: RRR, S1+S2 normal, no murmurs/rubs/gallop appreciated Resp: Maintaining spO2 saturation on room air, clear to ausculation bilaterally Abdomen: Hard, non-tender, non-distended. NBS. Extremities: No cyanosis or edema Neuro: moving all extremities spontaneously Skin: No Janeway lesions, Osler nodes, splinter hemorrhages in UL. Medications Reviewed Labs Reviewed Micro Reviewed Imaging Reviewed MARIBEL Left Ventricle: The left ventricular cavity was normal in size. Left ventricular systolic function was normal with an ejection fraction of 55-60% by visual estimation. Right Ventricle: The right ventricular cavity was mildly dilated in size. Right ventricular systolic function was normal by visual estimation. Left Atrium: The left atrial appendage was well visualized. There was no thrombus in the left atrial appendage. 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 There was a small PFO visualized by color Doppler. Additionally there appears to be a small secundum ASD with left to right shunting visualized by color Doppler. Right Atrium: Right atrial cavity was dilated. No evidence of valvular vegetation. Micro: 2024: 4/4 Bcx positive MRSA @ 14hrs 05/27/2024: 4/4 Bcx positive MRSA @ 15hrs 05/29/2024: 2/4 Bcx positive MRSA @ 18hrs 05/30/2024: 2/4 Bcx positive MRSA @ 19.3hrs 06/01/2024: Bcx pending Assessment Assessment Marcos Camejo is a 44 y.o. male with a PMHx notable for IVDU (on suboxone), TUD, mood disorder (seroquel) who presented as transfer from [facility] ED for High Grade MRSA bacteremia c/b thoracic and lumbar spinal abscesses. ID consulted for vertebral osteomyelitis/discitis with recommendation for ceftaroline and daptomycin due to persistently positive cultures. Per orthopedic spine service, no surgical intervention indicated at this time. Patient will likely require prolonged course (6-8 weeks) of IV antibiotics. Plan #Thoracic and lumbar spinal epidural abscess/ T10-L2 osteodiscitis #High Grade MRSA bacteremia No symptoms of cauda equina. Cultures persistently positive x7d making patient high risk for IE, however, TTE 05/26 & MARIBEL 05/29 w/o valvular disease/vegetations. Cultures not yet cleared. - Ortho spine consulted: no indication for surgical intervention unless neuro deficits - ID consulted - S/p Vanc 05/26-05/28 - Transitioned to daptomycin 900 mg daily 05/28 (no e/o pulm infection or septic emboli) - Addition of ceftaroline 05/31 d/t persistently + Bcx - Weekly LFT, CK (baseline wnl) - Pt will likely need 6-8 wks IV abx from time of cultures being cleared - Mon, Thur CBC/CMP, trend fever curve - Most recent Bcx drawn 06/01, pending - MARIBEL 05/29 w/o evidence of IE or valvular disease - Plan for PICC placement following 5d negative cultures #Pain management - Acetaminophen 1g QID - gabapentin 200 mg TID - Hydromorphone 6 mg PO Q4 PRN - Ibuprofen 400 mg TID (plus PPI daily for PUD ppx while hospitalized) - cyclobenzaprine 10 mg 3 times daily as needed - 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 - F/u PCP for further management #Iron Deficiency Anemia - Hb - throughout hospital course - Low Fe Chronic/Stable: HCV, untreated Chronically Elevated liver chemistries + HCV quant on OSH records. Hep A Ab +, c/w immunity. Hep B surface Ab +; Hep B core Ab + in 2022 and negative this admission c/w prior exposure and cleared infection. HIV ab neg 04/2024. 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 Mendoza's note and agree with findings, A and Pas outlined above, with my additions in blue. I have personally reviewed the laboratory and radiology results. I have personally spoken with and examined the patient. DOS 06/01/24. Meaghan Zapata MD * Aditya Jain MD - 05/31/2024 1056 EST Infectious Disease Consultation Follow Up Note Admit Date: 2024 Hospital Day: LOS: 5 days Date of Service: 05/31/2024 Followup For: MRSA bacteremia, T10-11, L1-2 osteomyelitis, discitis, and T10-11 early phlegmon and early abscess TTE without obvious vegetations, back pain 24 Hour Events: Subjective: Continues to have mostly L sided lumbar back/side pain, no fevers, chills or sweats, nochest pain, no shortness of breath, no cough, no N,V abdominal pain or diarrhea Anti-infectives & Other Pertinent Medications: Vancomycin 05/26- 05/28 Daptomycin 05/28 - present (900 mg) Vital Signs: BP 111/77 (BP Cuff Location: Right arm, BP Patient Position: Semi fowlers) Pulse 82 Temp 36.8 ??C (98.2 ??F) (Oral) Resp 17 Ht 175.3 cm (69) Wt 86.2 kg (190 lb) SpO2 95% BMI 28.06 kg/m?? Exam: Lying in bed in NAD, awake, alert appropriate responsive girlfriend present Chest - clear anterior lung martinez Cor - regular without ES appreciated Abd - soft with some epigastric tenderness and mildly distended Heating pad on back No peripheral edema Data Review: Laboratory data reviewed. Pertinent positives include: Labs: WBC/RBC/HGB/HCT/PLT/ANC8.06/4.56/12.0/35.8/244/-- (05/31 813) Microbiology: 05/26 - BC X 2 - 2/2 sets MRSA 05/27 - BC X 2 - 2/2 sets MRSA 05/29 - BC X 2 - 1/2 sets MRSA 05/30 - BC X 2 - 1/2 sets gram positive resembling Staph Other: 05/29 - MARIBEL - no evidence of valvular vegetation 05/28 - CT chest - bilateral tr pleural effusions 05/28 - CT abdomen - no embolic findings, splenomegaly, mild extrahepatic biliary dilatation Assessment: High grade MRSA bacteremia in the setting of thoracic and lumbar osteomyelitis/discitis. Despite his negative TTE/MARIBEL echos his clinical picture is most consistent with endocarditis and his vegetations may no longer be visible as they have flipped off which is why he has spinal osteomyelitis. Due to his persistent bacteremia would now add additional coverage so we can hopefully increase the chance of clearing his bloodstream more quickly.. Recommendations: Add Ceftaroline 600 mg IV Q 12 h Blood cultures will need to be negative for 5 days prior to placing a PICC line Discussed with primary care team I spent a total of 35 minutes on the date of this encounter meeting with the patient and reviewing documentation/coordinating care as described in the above note. Aditya Jain MD 05/31/2024 10:56 * Ariadna Prescott MD - 05/31/2024 0758 EST Orthopaedic Spine Progress Note Admit Date: 2024 Hospital Day: LOS: 5 days Problem: T10-11, L1-L2 osteomyelitis discitis, MRSA bacteremia Subjective: 24 hours: -MADDISON HERNANDEZ reports that he woke up and 10/10 pain. He reports having a zinging sensation in his spinelast night. He also has a left-sided flank pain whenever he moves. He denies any pain down his legsor numbness in his legs. He did overnight experience numbness in the 1st through 3rd digit that this is now resolved. He continues to be ambulatory and has not had any issues with voiding or moving his bowels. He has retained sensation of his genitalia and saddle region. Objective: Blood pressure 111/77, pulse 82, temperature 36.8 ??C (98.2 ??F), temperature source Oral, resp. rate 17, height 175.3 cm (69), weight 86.2 kg (190 lb), SpO2 95%. 05/30 0700 - 05/31 0659 In: 640 [P.O.:640] Out: - General: No acute distress Cardio: Appears well perfused Respiratory: Non-labored Focused MSK: Right Upper Extremity Left Upper Extremity Deltoid (C5) 5/5 Biceps (C5, 6) 5/5 Triceps (C7) 5/5 Wrist/Finger Ext (C7, 8) 5/5 Wrist/Finger Flex (C8, T1) 5/5 Interrosei (T1) 5/5 Fishing Rod Marker (T1) 5/5 Deltoid (C5) 5/5 Biceps (C5, 6) 5/5 Triceps (C7) 5/5 Wrist/Finger Ext (C7, 8) 5/5 Wrist/Finger Flex (C8, T1) 5/5 Interrosei (T1) 5/5 Fishing Rod Marker (T1) 5/5 Sensation intact (C5/6/7/8/T1 distributions). Sensation intact (C5/6/7/8/T1 distributions). Right Lower Extremity Left Lower Extremity Iliopsoas(L2, 3) 5/5 Quadricep (L3, 4) 5/5 Hamstrings (L5, S1) 5/5 Tibialis Anterior (L4, 5) 5/5 Gastroc/Soleus (S1, S2) 5/5 Extensor Hallicus (L5) 5/5 Iliopsoas(L2, 3) 5/5 Quadricep (L3, 4) 5/5 Hamstrings (L5, S1) 5/5 Tibialis Anterior (L4, 5) 5/5 Gastroc/Soleus (S1, S2) 5/5 Extensor Hallicus (L5) 5/5 Sensation intact (L3/L4/L5/S1 distributions) Sensation intact (L3/L4/L5/S1 distributions) Labs: WBC/Hgb/Hct/Plts: 6.24/10.7/31.2/251 (05/30 734) Na/K/Cl/CO2: 137/4.6/103/25 (05/30 734) BUN/Cr/glu/ALT/AST/amyl/lip: 17/0.70/161/--/--/--/-- (05/30 734) Lab Results Component Value Date WBC 6.24 05/30/2024 WBC 6.69 05/29/2024 WBC 6.63 05/28/2024 CRP 210.7 (H) 2024 CRP 14.1 (H) 02/01/2020 CRP 11.9 (H) 12/24/2019 SEDRATE 61 (H) 2024 SEDRATE 1 07/01/1999 Assessment: Marcos Camejo is a 44 y.o. year old male with PMH IVDU (on Suboxone) who was admitted to the hospital on 2024 with MRSA bacteremia and T10-11, L1-L2 osteomyelitis discitis. On exam this morning is full strength does report some left-sided flank pain and brief episode of sensory disturbanceis 1st through 3rd digit in the right upper extremity as well as at the tips of his toes during dorsiflexion testing. Will continue to monitor clinically. Plan: No plan for operative intervention for his spine Activity: WBAT, AAT No spine precautions No need for additional advanced imaging from an orthopedic spine perspective unless the patient develops new neurologic deficits Pain control: multimodal Antibiotics: Per primary and ID, on daptomycin Diet: Okay from orthopedic spine perspective Anticoagulation: Okay from spine perspective ARIADNA PRESCOTT MD * Kayley Mendoza MD - 05/31/2024 0552 EST Internal Medicine Progress Note Service Date: 05/31/24 Admit Date: 2024 Reason for Admission: 44 y.o. male admitted with a chief complaint of back pain now with a principal diagnosis of MRSA bacteremia and T10-L2 osteo-discitis w epidural abscess with c/f narrowing of spinal canal 24 Hour Events: NAEO Subjective/Objective Subjective Eating breakfast throughout the interview this morning. Pain is throbbing in nature over midline lumbar spine, but currently improved from yesterday. Denies additional concerns. No BLE numbness/tingling, weakness, no FND. No bowel/bladder retention or incontinence, no perineal numbness. Review of Systems A ten point review of systems was performed and was negative except for pertinentpositives noted above. Objective Vital Signs: BP Min: 98/72 Max: 117/82 BP MAP Min: 80 mm Hg Max: 93 mm Hg Pulse From Oximetry Min: 82 BPM Max: 95 BPM Resp Min: 16 Max: 17 Temp Min: 36.6 ??C (97.8 ??F) Max: 36.8 ??C (98.2 ??F) SpO2 Min: 92 % Max: 95 % O2 Device: None O2 Flow Rate (L/min) Min: 0 l/min Max: 0 l/min Weight : 86.2 kg (190 lb) Physical Exam General: patient laying in bed, in no acute distress CVS: RRR, S1+S2 normal, no murmurs/rubs/gallop appreciated Resp: Maintaining spO2 saturation on room air, clear to ausculation bilaterally Abdomen: Hard, non-tender, non-distended. NBS. Extremities: No cyanosis or edema Neuro: moving all extremities spontaneously Skin: No Janeway lesions, Osler nodes, splinter hemorrhages in UL. Medications Reviewed Labs Reviewed Micro Reviewed Imaging Reviewed MARIBEL Left Ventricle: The left ventricular cavity was normal in size. Left ventricular systolic function was normal with an ejection fraction of 55-60% by visual estimation. Right Ventricle: The right ventricular cavity was mildly dilated in size. Right ventricular systolic function was normal by visual estimation. Left Atrium: The left atrial appendage was well visualized. There was no thrombus in the left atrial appendage. 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 There was a small PFO visualized by color Doppler. Additionally there appears to be a small secundum ASD with left to right shunting visualized by color Doppler. Right Atrium: Right atrial cavity was dilated. No evidence of valvular vegetation. Assessment Assessment Marcos Camejo is a 44 y.o. male with a PMHx notable for IVDU (on suboxone), TUD, mood disorder (seroquel) who presents as direct transfer from [facility] ED for High Grade MRSA bacteremia c/b thoracic and lumbar spinal abscesses. ID consulted for vertebral osteomyelitis with recommendation to transition from vancomycin to daptomycin. Ceftaroline added on 05/31 due to persistently positive cultures. Per orthopedic spine service, no surgical management indicated at this time. Patient will likely require prolonged course (6-8 weeks) of IV antibiotics. Plan #Thoracic and lumbar spinal epidural abscess/ T10-L2 osteodiscitis #High Grade MRSA bacteremia No symptoms cauda equina. Cultures persistently positive making patient high risk for IE, however, TTE 05/26 & MARIBEL 05/29 w/o valvular disease/vegetations. Cultures not yet cleared. - Ortho spine consulted: no indication for surgical intervention - ID consulted - S/p Vanc 05/26-05/28 - Transitioned to daptomycin 900 mg daily 05/28 (no e/o pulm infection or septic emboli) - Addition of ceftaroline 05/31 d/t persistently + Bcx - Weekly LFT, CK (baseline wnl) - Pt will likely need 6-8 wks IV abx from time of cultures being cleared - Daily CBC, trend fever curve - Repeat cultures + on 05/30 @ 19 hrs - MARIBEL 05/29 w/o evidence of IE or valvular disease - Repeat cultures in AM #Pain management - Acetaminophen 1g QID - gabapentin 200 mg TID - Hydromorphone 6 mg PO Q4 PRN - Ibuprofen 400 mg TID (plus PPI daily for PUD ppx while hospitalized) - cyclobenzaprine 10 mg 3 times daily as needed - 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 - F/u PCP for further management #Iron Deficiency Anemia - Hb 10-11 throughout hospital course - Low Fe Chronic/Stable: HCV, untreated Chronically Elevated liver chemistries + HCV quant on OSH records. Hep A Ab +, c/w immunity. Hep B surface Ab +; Hep B core Ab + in 2022 and negative this admission c/w prior exposure and cleared infection. HIV ab neg 04/2024. 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 Mendoza's note and agree with findings, A and Pas outlined above, with my additions in blue. I have personally reviewed the laboratory and radiology results. I have personally spoken with and examined the patient. Meaghan Zapata MD * Trav Perez MD - 05/30/2024 1241 EST Orthopaedic Spine Progress Note Admit Date: 2024 Hospital Day: LOS: 4 days Problem: T10-11, L1-L2 osteomyelitis discitis, MRSA bacteremia Subjective: 24 hours Yesterday's blood cultures still positive for staph AVSS. Doing okay, overall pain is slowly improving with 6 out of 10 right flank pain without movement. Increases with any movement. No pain rating down into the bilateral lower extremities. No numbness or tingling in the bilateral lower extremities. Using his bowels and bladder without dysfunction. Objective: Blood pressure 105/74, pulse 73, temperature 36.7 ??C (98.1 ??F), temperature source Oral, resp. rate 16, height 175.3 cm (69), weight 86.2 kg (190 lb), SpO2 94%. 05/29 0700 - 05/30 0659 In: 1576 [P.O.:1476; I.V.:100] Out: - General: NAD, A/O x3 Cardio: Regular rate as judged by DP pulse, 2+ Respiratory: Non-labored on room air Focused MSK: LE : Right: Iliopsoas(L2, 3) 5/5 Quadricep (L3, 4) 5/5 Hamstrings (L5, S1) 5/5 Tibialis Anterior (L4, 5) 5/5 Gastroc/Soleus (S1, S2) 5/5 Extensor Hallicus (L5) 5/5 Left: Iliopsoas(L2, 3) 5/5 Quadricep (L3, 4) 5/5 Hamstrings (L5, S1) 5/5 Tibialis Anterior (L4, 5) 5/5 Gastroc/Soleus (S1, S2) 5/5 Extensor Hallicus (L5) 5/5 LE Reflex: Right: Patellar 2+, Achilles 2+ Sensation intact (L3/L4/L5/S1 distributions) 3 beats clonus, 2+ DP pulse. Left: Patellar 2+, Achilles 2+ Sensation intact (L3/L4/L5/S1 distributions) 3 beats clonus, 2+ DP pulse. Labs: WBC/Hgb/Hct/Plts: 6.24/10.7/31.2/251 (05/30 734) Na/K/Cl/CO2: 137/4.6/103/25 (05/30 734) BUN/Cr/glu/ALT/AST/amyl/lip: 17/0.70/161/--/--/--/-- (05/30 734) Assessment: Marcos Camejo is a 44 y.o. year old male with PMH IVDU (on Suboxone) who was admitted to the hospital on 2024 with MRSA bacteremia and T10-11, L1-L2 osteomyelitis discitis. Blood cultures still positive. Is mobilizing. Neurologic examination stable. No plan for operative intervention. Plan: No plan for operative intervention for his spine Activity: WBAT, AAT No spine precautions No need for additional advanced imaging from an orthopedic spine perspective unless the patient develops new neurologic deficits Pain control: multimodal Antibiotics: Per primary and ID, on daptomycin Diet: Okay from orthopedic spine perspective Anticoagulation: Okay from spine perspective Trav Perez MD Orthopaedics PGY-4 Pager #[phone] 05/30/24 12:41 * DevynCamarena Porter - 05/30/2024 1107 EST Initial Case Management/Social Work Assessment and Discharge Plan/Readmission Risk Assessment REASON FOR ADMISSION: Discitis of thoracolumbar region Patient understands reason for admission: Yes PATIENT INFO VERIFIED: PCP, Contact Info, Address Type of housing (single family, condo, apartment, alf, single room occupancy, [facility] funded hotel room, group detention) - house Who does the patient live with? girlfriend Does the patient have access to their own bedroom/bathroom/kitchen - or is it shared with others? Y Name of housing complex (ex [email or web address] [place], [facility], etc)- n/a Housing Authority/Managing Organization - n/a Community Care Providers (caser up, [facility] nurse, etc) name and contact information- n/a Discharge Delay Risk Assessment 2. Hospitalization: Unplanned admission Major Barrier day total 1-6: 1 Does the patient meet criteria to be escalated?: Yes How was escalation determined?: Automobile Leasing Supervisor discretion LIVING ARRANGEMENTS AND ACCESSIBILITY ISSUES: Living Arrangements: Spouse / significant other Levels: 2 Stairs to enter: 1 Handicap access: Railings into home Bathroom located on bedroom level?: No What in home social supports are available to the patient? Spouse / significant other Is 24/7 care available? NA ADVANCED DIRECTIVES, POA &/or COLST IN PLACE: Healthcare Directive: No, patient does not have advance directive for healthcare treatment Information Provided on Healthcare Directives: Yes Information on Healthcare Directives Requested: Yes Patient Requests Assistance: Yes, will do independently DIRECTIVES FOR FINANCES: TRANSPORTATION: Transportation: Family Does the patient need discharge transport arranged?: No Expected Discharge on IV Antibiotics: No (Pt has hx of iv drug use- anticpate pt will need to be here for duration of IV abx (per ID 6-8 weeks)) Final Discharge Destination: Home with girlfriend CULTURAL, MOSQUE and/or LANGUAGE factors affecting health care/discharge planning: Spiritual/Cultural Requests: None Insurance Information: Medical Insurance: Yes Type of insurance: Medicaid ([place]) Nutrition: DISCHARGE RISK ASSESSMENT: Polypharmacy, > 7 medications Total # selected above: Score of 1 - 2: This patient is at LOW RISK for re-hospitalization Tentative plan to address the risk of re-hospitalization for those at HIGH MODERATE RISK: Other: (Hx of IVDU) RAPT TOOL: Expected Discharge Disposition: Home or Self Care SBIRT: Unable to assess-SASQ: Patient refused FUNCTIONAL STATUS: Activities patient requires assistance: None Assistive Devices: Cane COMMUNITY RESOURCES/SUPPORTS: Primary Care Provider: Raffi Merida PCP Verified: Y Specialists: None Type of Home Health Services: None DME Provider: Pharmacy: [id number] - [place], [place] - [address] [facility] [address] [facility] [address] [facility] [phone] [id number] - [place] [id number] [facility] [id number] [id number] - [place], [place] - [address] [facility] [address] [facility] [address] Home Health: Other: POST HOSPITAL TRANSITION PLAN: Marcos Camejo is a 44 y.o. male with a PMHx notable for IVDU (onsuboxone), untreated Hep C, TUD who presents as an ED-to-ED transfer from [facility] for positive blood cultures and new thoracic/lumbar spinal abscesses noted on imaging. Per transfer paperwork, he was seen in the ED for fever and new back pain. Given normal labs and unremarkable CT at that time, he was sent home. However blood cultures drawn at that time grew MRSA in4 out of 4 bottles. He was counseled to return to the emergency department for further work-up, which includes an MRI of his spine. This was notable for new abscesses noted in T10, T11, L1 and L2. Labs prior to transfer otherwise unremarkable (CBC, BMP, lactate 1, negative RVP). Received vancomycin, Flexeril, Toradol, acetaminophen. Today, he says that for the past 4 months he has had recurrent back pain. He says that the pain wasin the center of his spine and did not radiate anywhere. He noticed that the pain would start afterhe exerted himself and would last for few days at a time. Associated symptoms include fevers up to 105 Fahrenheit, pain with walking, daily headaches on the left side without light sensitivity, soundsensitivity. He does not have chest pain, shortness of breath. He is also noticed bloating, abdominal distention and tells me he has not had a bowel movement in the last week. Reports his bowel movements are usually daily. Also with recent history of difficulty with urination whereby he says he hastrouble starting to pee and often it starts and stops. He also notes little appetite and has not eaten in the last few days. Has been hydrating with water. He does not have any bladder or bowel incontinence, numbness or weakness in the lower extremities. IVDU last 4 months ago, on 24 mg suboxone daily (takes 16 mg in AM and 8 mg in the evening). Also on seroquel 100 mg qhs. 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 She would be his medical decision-makershould he be unable to make his own decisions. Confirms he is full code. Smokes 1 pack/day, does not want any nicotine replacement this time. No other drug use. He does not drink. 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 CM met with pt at bedside. Patient resides in a 2 level home with his girlfriend. 1 OMAYRA with a railing. Patient was indep with ADLs and IADLs at baseline. He used a cane for most recent condition, but normally does not use a mobility device. Pt requested info on AD. CM provided Guide to Medical Decision Making. Pt refused to participate inSASQ regarding IV drug use. Pt accepted Meds to Beds and stated he a ride when medically ready to DC. Anticipate no CM needs. Anticipate pt will remain inpatient until completion of IV abx due to hx ofIVDU. CM reached out to ID regarding duration of IV abx, which is 6-8 weeks. 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 05/30/2024 11:14 PORTER NICOLE 05/30/2024 11:07 * Kayley Mendoza MD - 05/30/2024 0749 EST Internal Medicine Progress Note Service Date: 05/30/24 Admit Date: 2024 Reason for Admission: 44 y.o. male admitted with a chief complaint of back pain now with a principal diagnosis of MRSA bacteremia and T10-L2 osteo-discitis w epidural abscess with c/f narrowing of spinal canal 24 Hour Events: NAEO Subjective/Objective Subjective Resting comfortably this morning. Patient reports that his pain is still present but currently improved and he has no additional concerns. No BLE numbness/tingling, weakness, no FND. No bowel/bladderretention or incontinence, no perineal numbness. Review of Systems A ten point review of systems was performed and was negative except for pertinentpositives noted above. Objective Vital Signs: BP Min: 96/67 Max: 131/88 BP MAP Min: 77 mm Hg Max: 101 mm Hg Pulse From Oximetry Min: 67 BPM Max: 80 BPM Resp Min: 11 Max: 18 Temp Min: 36.3 ??C (97.3 ??F) Max: 36.8 ??C (98.2 ??F) SpO2 Min: 90 % Max: 95 % O2 Device: None O2 Flow Rate (L/min) Min: 2.5 l/min Max: 2.5 l/min Weight : 86.2 kg (190 lb) Physical Exam General: patient laying in bed, in no acute distress CVS: RRR, S1+S2 normal, no murmurs/rubs/gallop appreciated Resp: Maintaining spO2 saturation on room air, clear to ausculation bilaterally Abdomen: Hard, non-tender, non-distended. NBS. Extremities: No cyanosis or edema Neuro: moving all extremities spontaneously Skin: No Janeway lesions, Osler nodes, splinter hemorrhages in UL. Medications Reviewed Labs Reviewed Micro Reviewed Imaging Reviewed MARIBEL Left Ventricle: The left ventricular cavity was normal in size. Left ventricular systolic function was normal with an ejection fraction of 55-60% by visual estimation. Right Ventricle: The right ventricular cavity was mildly dilated in size. Right ventricular systolic function was normal by visual estimation. Left Atrium: The left atrial appendage was well visualized. There was no thrombus in the left atrial appendage. 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 There was a small PFO visualized by color Doppler. Additionally there appears to be a small secundum ASD with left to right shunting visualized by color Doppler. Right Atrium: Right atrial cavity was dilated. No evidence of valvular vegetation. Assessment Assessment Marcos Camejo is a 44 y.o. male with a PMHx notable for IVDU (on suboxone), TUD, mood disorder (seroquel) who presents as direct transfer from [facility] ED for High Grade MRSA bacteremia c/b thoracic and lumbar spinal abscesses. ID consulted for vertebral osteomyelitis with recommendation to transition from vancomycin to daptomycin. Per orthopedic spine service, no surgical management indicated at this time. Blood cultures not yet cleared, most recently positive on 05/29 at 18hrs. Plan #Thoracic and lumbar spinal epidural abscess/ T10-L2 osteodiscitis #High Grade MRSA bacteremia No symptoms cauda equina. Cultures persistently positive making patient high risk for IE, however, TTE 05/26 & MARIBEL 05/29 w/o valvular disease/vegetations. Cultures not yet cleared. - Ortho consulted in ED: - BID neuro checks to be performed by ortho - ID consulted - S/p Vanc 05/26-05/28 - Transitioned to daptomycin 900 mg daily 05/28 (no e/o pulm infection or septic emboli) - Weekly LFT, CK (baseline wnl) - Pt will likely need 6-8 wks IV abx from time of cultures being cleared - Daily CBC, trend fever curve - Repeat cultures pending from 05/30 - MARIBEL 05/29 w/o evidence of IE or valvular disease #Pain management - Acetaminophen 1g QID - gabapentin 200 mg TID - Hydromorphone 6 mg PO Q4 PRN - Ibuprofen 400 mg TID (plus PPI daily for PUD ppx while hospitalized) - cyclobenzaprine 10 mg 3 times daily as needed - 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 - F/u PCP for further management Chronic/Stable: HCV, untreated Chronically Elevated liver chemistries + HCV quant on OSH records. Hep A Ab +, c/w immunity. Hep B surface Ab +; Hep B core Ab + in 2022 and negative this admission c/w prior exposure and cleared infection. HIV ab neg 04/2024. 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 Mendoza's note and agree with findings, A and Pas outlined above, with my additions in blue. I have personally reviewed the laboratory and radiology results. I have personally spoken with and examined the patient. Meaghan Zapata MD * Kayley Mendoza MD - 05/29/2024 1534 EST Internal Medicine Progress Note Service Date: 05/29/24 Admit Date: 2024 Reason for Admission: 44 y.o. male admitted with a chief complaint of back pain now with a principal diagnosis of MRSA bacteremia and T10-L2 osteo-discitis w epidural abscess with c/f narrowing of spinal canal 24 Hour Events: NAEO Subjective/Objective Subjective Patient restless during interview due to severity of pain. States that back pain overnight was worsening. Previously midline tenderness and paraspinal pain, however, now noting pain along L flank region that is sharper and stabbing in nature. Denies LE weakness/numbness, perineal numbness, bowel orbladder dysfunction. No fever/chills. Review of Systems A ten point review of systems was performed and was negative except for pertinentpositives noted above. Objective Vital Signs Vitals: BP Min: 96/67 Max: 131/88 BP MAP Min: 77 mm Hg Max: 109 mm Hg Pulse From Oximetry Min: 67 BPM Max: 84 BPM Resp Min: 11 Max: 18 Temp Min: 36.3 ??C (97.3 ??F) Max: 36.8 ??C (98.3 ??F) SpO2 Min: 90 % Max: 95 % O2 Device: None O2 Flow Rate (L/min) Min: 2.5 l/min Max: 2.5 l/min Weight : 86.2 kg (190 lb) Physical Exam General: patient laying in bed, in no acute distress CVS: RRR, S1+S2 normal, no murmurs/rubs/gallop appreciated Resp: Maintaining spO2 saturation on room air, clear to ausculation bilaterally Abdomen: Hard, non-tender, non-distended. NBS. Extremities: No cyanosis or edema Neuro: moving all extremities spontaneously Skin: No Janeway lesions, Osler nodes, splinter hemorrhages in UL. Medications Reviewed Labs Reviewed Micro Reviewed Imaging Reviewed MARIBEL Left Ventricle: The left ventricular cavity was normal in size. Left ventricular systolic function was normal with an ejection fraction of 55-60% by visual estimation. Right Ventricle: The right ventricular cavity was mildly dilated in size. Right ventricular systolic function was normal by visual estimation. Left Atrium: The left atrial appendage was well visualized. There was no thrombus in the left atrial appendage. 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 There was a small PFO visualized by color Doppler. Additionally there appears to be a small secundum ASD with left to right shunting visualized by color Doppler. Right Atrium: Right atrial cavity was dilated. No evidence of valvular vegetation. Assessment Assessment Marcos Camejo is a 44 y.o. male with a PMHx notable for IVDU (on suboxone), TUD, mood disorder (seroquel) who presents as direct transfer from [facility] ED for High Grade MRSA bacteremia c/b thoracic and lumbar spinal abscesses. ID consulted for vertebral osteomyelitis with recommendation to transition to daptomycin. Per orthopedic spine service, no surgical management indicated at this time. Blood cultures not yet cleared, most recently positive on 05/27 at 15hrs. Plan #Thoracic and lumbar spinal epidural abscess/ T10-L2 osteodiscitis #High Grade MRSA bacteremia No symptoms cauda equina. TTE 05/26 with no valvular disease/vegetations, however, will obtain MARIBEL due to high risk IE. Cultures not yet cleared. 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 #Constipation, resolving - miralax BID - senna 2 tablets at bedtime - suppository prn - lactulose q6 PRN #Hyperglycemia #Prediabetes New diagnosis this admission. Due to elevated glu, an A1c was checked which is 6.2 -outpatient f/u Chronic/Stable: HCV, untreated Chronically Elevated liver chemistries + HCV quant on OSH records. Hep A, B antibodies positive c/w immunity. HIV ab neg04/2024. 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 Mendoza's note and agree with findings, A and Pas outlined above, with my additions in blue. I have personally reviewed the laboratory and radiology results. I have personally spoken with and examined the patient. Meaghan Zapata MD * Elvin Abbott RN - 05/29/2024 1526 EST Data: Assumed care at 0700. Pt admitted for discitis of thoracolumbar region. Pt is AOX3, RA, on MRSA precaution, independent, V and Continetnt of Bowel, L AC IV, reporting uncontrolled pain. Action: Meds per eMAR, contacted provider regarding pain control, encouraged bowel meds, clustered care and hourly rounding, Response: Pt reporting some pain relief, able to make needs known, went to MARIBEL today, and is back in bed, lying comfortably with call banda by side. ELVIN ABBOTT RN 05/29/2024 15:26 * Porter Nicole - 05/29/2024 1453 EST CM attempted to see pt 2x this day to complete full assessment. 1st attempt pt was having iv abx hooked up and 2nd attempt pt was getting an echo. CM will attempt tomorrow. 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 05/29/2024 14:56 * José Luis Mendoza MD - 05/29/2024 0401 EST Orthopaedic Spine Progress Note Problem: C3, C4, T10, T11, L1, L2 osteomyelitis/discitis Procedure: NA 24 Hour Events: NAEON Subjective: doing okay, once to sleep. No bowel or bladder incontinence idol anesthesia. No new radicular symptoms Objective: Blood pressure 128/84, temperature 36.8 ??C (98.3 ??F), temperature source Oral, resp. rate 16, height 175.3 cm (69), weight 86.2 kg (190 lb), SpO2 94%. 05/27 2300 - 05/28 2259 In: 480 [P.O.:480] Out: 425 [Urine:425] Vitals: VSS General: NAD Respiratory: Non-labored Right Upper Extremity Left Upper Extremity Deltoid (C5) 5/5 Biceps (C5, 6) 5/5 Triceps (C7) 5/5 Wrist/Finger Ext (C7, 8) 5/5 Wrist/Finger Flex (C8, T1) 5/5 Interrosei (T1) 5/5 Fishing Rod Marker (T1) 5/5 Deltoid (C5) 5/5 Biceps (C5, 6) 5/5 Triceps (C7) 5/5 Wrist/Finger Ext (C7, 8) 5/5 Wrist/Finger Flex (C8, T1) 5/5 Interrosei (T1) 5/5 Fishing Rod Marker (T1) 5/5 Negative Soriano Negative Soriano Sensation intact (C5/6/7/8/T1 distributions). Sensation intact (C5/6/7/8/T1 distributions). Palpable radial pulse Palpable radial pulse Right Lower Extremity Left Lower Extremity Iliopsoas(L2, 3) 5/5 Quadricep (L3, 4) 5/5 Hamstrings (L5, S1) 5/5 Tibialis Anterior (L4, 5) 5/5 Gastroc/Soleus (S1, S2) 5/5 Extensor Hallicus (L5) 5/5 Iliopsoas(L2, 3) 5/5 Quadricep (L3, 4) 5/5 Hamstrings (L5, S1) 5/5 Tibialis Anterior (L4, 5) 5/5 Gastroc/Soleus (S1, S2) 5/5 Extensor Hallicus (L5) 5/5 1 beats clonus 2 beats clonus Sensation intact (L3/L4/L5/S1 distributions) Sensation intact (L3/L4/L5/S1 distributions) Palpable DP pulse Palpable DP pulse Labs: Na/K/Cl/CO2: 137/4.1/104/23 (05/28 654) BUN/Cr/glu/ALT/AST/amyl/lip: 8/0.61/133/--/--/--/-- (05/28 654) WBC/Hgb/Hct/Plts: 6.63/10.1/29.2/281 (05/28 654) Assessment: Marcos Camejo is a 44 y.o. year old male female significant for former IV drug use on Suboxone who was a transfer for two weeks of low back pain with fevers chills and MRC bacteremia with the above-mentioned osteomyelitis described his findings. Exam this morning unchanged. Continue medical management with IV antibiotics. NPO for transesophageal echocardiogram today Plan: no need for orthopedic spine intervention at this time recommend IV antibiotics guided by ID liberalized to daily neuro- checks nutritional optimization recommended PT for mobilization greatly appreciate the remainder care for primary team okay for diet DVT prophylaxis from an orthopedic standpoint JOSÉ LUIS MENDOZA MD 4:01 05/29/2024 PGY3 Orthopedics * José Luis Mendoza MD - 05/28/2024 231 EST Orthopedic spine examination: Met the patient at bedside he is having no radicular symptoms no bowel incontinence or bladder incontinence. No saddle anesthesia. 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 Normal sensation in the C5-T1 distributions No hyperreflexia Negative Baylee's bilaterally For his lower extremities he has 5/5 TA, GSC, EHL, quads, hamstrings, iliopsoas bilaterally normal sensation in the L2-S1 distributions He has 2 beats of clonus bilaterally 1+ patellar 0+ Achilles Imaging: uprights entire spine from May 28 reviewed , endplate changes at C3-4 re- demonstrated, thoracic spine without clear endplate changes, ventral L1-2 endplate narrowing and local kyphosis without any translation in the sagittal or coronal planes for the cervical or lumbar spine. Examination stable no change in plan as dictated previously, uprights stable. José Luis Mendoza PGY3. * He Benites MD - 05/28/2024 0609 EST Orthopaedic Spine Progress Note Hospital Admission: 2024 Problem: C3, C4, T10, T11, L1, L2 osteomyelitis/discitis 24 Hour Events: NAEO ID rec Vanc, CT chest abdomen pelvis to evaluate for embolic phenomena Subjective: Sleeping. Back pain is about the same. Denies fever, chills, chest pain, shortness of breath, nausea, vomiting. Denies numbness or tingling. Denies extremity motor weakness. Denies bowel or bladder incontinence. Denies saddle anesthesia. Objective: Blood pressure 118/85, temperature 36.8 ??C (98.3 ??F), temperature source Oral, resp. rate 16, height 175.3 cm (69), weight 86.2 kg (190 lb), SpO2 91%. 05/26 2300 - 05/27 2259 In: 1470 [P.O.:1440; I.V.:30] Out: 525 [Urine:525] Right Upper Extremity Left Upper Extremity Deltoid (C5) 5/5 Biceps (C5, 6) 5/5 Triceps (C7) 5/5 Wrist/Finger Ext (C7, 8) 5/5 Wrist/Finger Flex (C8, T1) 5/5 Interrosei (T1) 5/5 Fishing Rod Marker (T1) 5/5 Deltoid (C5) 5/5 Biceps (C5, 6) 5/5 Triceps (C7) 5/5 Wrist/Finger Ext (C7, 8) 5/5 Wrist/Finger Flex (C8, T1) 5/5 Interrosei (T1) 5/5 Fishing Rod Marker (T1) 5/5 Brachioradialis (C5) 1+, Bicep (C5) 2+, Tricep (C7) 1+ Negative Soriano Brachioradialis (C5) 1+, Bicep (C5) 2+, Tricep (C7) 1+ Negative Soriano Sensation intact (C5/6/7/8/T1 distributions). Sensation intact (C5/6/7/8/T1 distributions). Palpable radial pulse Palpable radial pulse Right Lower Extremity Left Lower Extremity Iliopsoas(L2, 3) 5/5 Quadricep (L3, 4) 5/5 Hamstrings (L5, S1) 5/5 Tibialis Anterior (L4, 5) 5/5 Gastroc/Soleus (S1, S2) 5/5 Extensor Hallicus (L5) 5/5 Iliopsoas(L2, 3) 5/5 Quadricep (L3, 4) 5/5 Hamstrings (L5, S1) 5/5 Tibialis Anterior (L4, 5) 5/5 Gastroc/Soleus (S1, S2) 5/5 Extensor Hallicus (L5) 5/5 Patellar 2+ 2 beats clonus Patellar 2+ 2 beats clonus Sensation intact (L3/L4/L5/S1 distributions) Sensation intact (L3/L4/L5/S1 distributions) Palpable DP pulse Palpable DP pulse Labs: Na/K/Cl/CO2: 135/4.0/104/25 (05/27 723) BUN/Cr/glu/ALT/AST/amyl/lip: 14/0.61/126/--/--/--/-- (05/27 723) WBC/Hgb/Hct/Plts: 6.01/10.9/32.4/-- (05/27 723) Assessment: Marcos Camejo is a 44 y.o. male for former IV drug use on Suboxone, presenting as a transfer from [facility] for 2 weeks of lower back pain with associated fever and chills found to be MRSA bacteremic with MRI findings of C3, C4, T10, T11, L1, L2 osteomyelitis/discitis. Patient remains neurologically intact today. ID recommends IV vancomycin, CT chest abdomen pelvis. Recommend continued antibiotics per infectious disease. Appreciate medicine management. Plan: No orthopedic spine surgical intervention Will continue perform twice daily neurochecks throughout the day Nutritional optimization Okay for diet and DVT chemoprophylaxis when orthopedic standpoint Recommend PT for mobilization Remainder of care per primary and ID He Benites MD, PGY-2 Orthopaedic Surgery 05/28/24 6:29 * Asha Arellano DO - 05/28/2024 0625 EST Internal Medicine Progress Note Service Date: 05/28/24 Admit Date: 2024 Reason for Admission: 44 y.o. male admitted with a chief complaint of back pain now with a principal diagnosis of MRSA bacteremia and T10-L2 osteo-discitis w epidural abscess with c/f narrowing of spinal canal 24 Hour Events: -NAEON Subjective/Objective Subjective Patient sleeping during visit today. Had pain overnight and gabapentin dose was increased, tylenol given and one dose dilaudid. Patient ok with decreasing suboxone dose temporarily today. Saravanan shortness of breath, chest pain, new cough, had BM yesterday, making urine. Review of Systems A ten point review of systems was performed and was negative except for pertinentpositives noted above. Objective Vital Signs Vitals: BP Min: 96/63 Max: 135/94 BP MAP Min: 74 mm Hg Max: 97 mm Hg Pulse From Oximetry Min: 71 BPM Max: 85 BPM Resp Min: 16 Max: 20 Temp Min: 36.2 ??C (97.2 ??F) Max: 36.8 ??C (98.3 ??F) SpO2 Min: 91 % Max: 96 % O2 Device: None No data recorded Weight : 86.2 kg (190 lb) Physical Exam General: patient laying in bed, in no acute distress CVS: RRR, S1+S2 normal, no murmurs/rubs/gallop appreciated Resp: Maintaining spO2 saturation on room air, clear to ausculation bilaterally Abdomen: Hard, non-tender, non-distended. NBS. Extremities: No cyanosis or edema Neuro: moving all extremities spontaneously Skin: No Janeway lesions, Osler nodes, splinter hemorrhages in UL. Medications Reviewed Labs Reviewed Micro Reviewed Imaging Reviewed Assessment Assessment Marcos Camejo is a 44 y.o. male with a PMHx notable for IVDU (on suboxone), TUD, mood disorder (seroquel) who presents as direct transfer from [facility] ED for MRSA bacteremia c/b thoracicand lumbar spinal abscesses. Plan to continue vancomycin with close follow-up by orthopedics, no surgical management indicated at this time. ID consulted for vertebral osteomyelitis. Plan #Thoracic and lumbar spinal epidural abscess/ T10-L2 osteodiscitis #MRSA bacteremia Continues to have no cauda equina symptoms. Recent hx of IVDU, unclear timeline. TTE 05/26 with no regurgetations or vegetations, patient is at high risk of endocarditis. - Ortho consulted in ED: - Twice daily neuro checks to be performed by ortho - ID consulted - Continue vancomycin --> transition to daptomycin given no evidence of embolic dx/infection in lungs. 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 Had 1 BM on 05/27/24. - miralax BID - senna 2 tablets at bedtime - suppository prn -lactulose q6 #Difficulty with urination Reports unable to initiate stream, stops-starts a lot. Etiology could be related to constipation vsBPH. - Bowel regimen as above - CTM #Hyperglycemia #Pre-diabetes New diagnosis this admission. Due to elevated glu, an A1c was checked which is 6.2 -outpatient f/u Chronic/Stable: #Hep C #Hx elevated LFT Positive Hep C quant on OSH records. Hep A, B antibodies positive. - daily CMP, Mg -will need outpatient management on discharge' #HIV Screening HIV antibody neg 05/01/24. Unclear last IV use, possibly within the last 2 weeks. -f/u RNA #Chronic normocytic anemia Baseline Hgb 11-12. 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 I have personally reviewed interval events, laboratory data, and imaging. I discussed the case with the inpatient resident team. I agree with findings and planof care as documented by the resident (or have edited in purple). Patient remains afebrile and hemodynamically stable. No neurologic deficits/cauda equina. Bcx from 05/26 still positive for MRSA, but 05/27 cx NGTD. TTE w/o evidence of IE. CT C/A/P without evidence ofembolic phenomena. Will transition vancomycin to daptomycin. Adjusting Suboxone and multi-modal pain control. Appreciate ID and Ortho consultation. Will benefit from MARIBEL. Martha Syed MD MPH 05/28/2024 13:00 * Dmitry Ga - 05/27/2024 1733 EST Discharge Delay Risk Assessment 2. 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 Dmitry Ga Email Marketing Processor II Per-Misty [email or web address] * Bashir Sy MD - 05/27/2024 1416 EST Orthopedic spine brief progress note Patient resting comfortably in bed. Pain is well-controlled. Denies paresthesias. Denies weakness. Denies saddle anesthesia. Denies urinary fecal incontinence. On examination, full strength in all major motor groups of the bilateral upper and lower extremities. Sensation is intact to light touch throughout the bilateral upper and lower extremities. Neurologic examination is stable. Continue plan from daily progress note. Bashir Sy MD * Asha Arellano DO - 05/27/2024 0717 EST Internal Medicine Progress Note Service Date: 05/27/24 Admit Date: 2024 Reason for Admission: 44 y.o. male admitted with a chief complaint of back pain now with a principal diagnosis of MRSA bacteremia and T10-L2 osteo-discitis w epidural abscess with c/f narrowing of spinal canal 24 Hour Events: -pain overnight, given Ketoralac 3x 15 mg Subjective/Objective Subjective Tired this morning. No acute complaints. Has back pain that has not changed from yesterday. Pt stating he is having pain. Ok w multimodal pain control and adding IBU and gabapentin. Wanting to avoid opioids for now. Later team was notified by RN that pt was having uncontrolled pain and wanted to leave as self directed discharge; discussed w patient and he is now agreeable to prn dilaudid for severe pain. Review of Systems A ten point review of systems was performed and was negative except for pertinentpositives noted above. Objective Vital Signs Vitals: BP Min: 118/78 Max: 143/86 BP MAP Min: 92 mm Hg Max: 107 mm Hg Pulse From Oximetry Min: 69 BPM Max: 92 BPM Resp Min: 16 Max: 19 Temp Min: 36.1 ??C (96.9 ??F) Max: 36.8 ??C (98.2 ??F) SpO2 Min: 93 % Max: 97 % O2 Device: None No data recorded Weight : 86.2 kg (190 lb) Physical Exam General: patient laying in bed, in no acute distress HEENT: MMM CVS: RRR, S1+S2 normal, no murmurs/rubs/gallop appreciated. Resp: Maintaining spO2 saturation on room air, clear to ausculation bilaterally Abdomen: Soft, non-tender, distended Extremities: No cyanosis or edema Musculoskeletal: No joint tenderness or effusions on palpation Neuro: moving all extremities spontaneously Skin: No Janeway lesions, Osler nodes. No splinter hemorrhages. Pressure ulcer present on admission: no Medications Scheduled Meds acetaminophen, 1,000 mg, Q6H buprenorphine-naloxone, 1 Tablet, QPM buprenorphine-naloxone, 2 Tablet, DAILY enoxaparin, 40 mg, DAILY gabapentin, 100 mg, TID ibuprofen, 400 mg, TID [START ON 05/28/2024] pantoprazole, 20 mg, DAILY BEFORE BREAKFAST polyethylene glycol 3350, 17 g, BID QUEtiapine, 100 mg, QHS senna, 2 Tablet, QHS vancomycin, 20 mg/kg, Q12H Continuous Meds PRN Meds bisacodyL, 10 mg, Daily PRN cyclobenzaprine, 10 mg, TID PRN HYDROmorphone, 4 mg, Q4H PRN lidocaine, 2 mg, PRN nicotine polacrilex, 2 mg, Q1H PRN ramelteon, 8 mg, AT BEDTIME PRN Labs Reviewed Micro Reviewed Imaging Reviewed TTE 05/27 Summary Left Ventricle: The left ventricular cavity was normal in size. Left ventricular systolic function was low normal with an ejection fraction of 50-55%. Left ventricular diastolic parameters were normal. Left ventricular wall thickness was at the upper limits of normal. Left ventricular wall motion was normal; there were no regional wall motion abnormalities. Global longitudinal strain was normal. Right Ventricle: The right ventricular cavity was normal in size. Right ventricular systolic function was normal. Normal tricuspid annular plane systolic excursion (TAPSE) >1.7 cm. Mitral Valve: There was mild mitral regurgitation. No obvious vegetation visualized on this study. Consider MARIBEL for further evaluation if clinical suspicion of endocarditis remains high. Assessment Assessment Marcos Camejo is a 44 y.o. male with a PMHx notable for IVDU (on suboxone), TUD, mood disorder (seroquel) who presents as direct transfer from [facility] ED for MRSA bacteremia c/b thoracicand lumbar spinal abscesses. Plan to continue vancomycin with close follow-up by orthopedics, no surgical management indicated at this time. ID consulted for vertebral osteomyelitis. Plan #Thoracic and lumbar spinal epidural abscess/ T10-L2 osteodiscitis #MRSA bacteremia Continues to have no cauda equina symptoms. Recent hx of IVDU, unclear timeline. CT head negative at OSH. MR notable for new spinal abscesses. 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 Etiology could be related to constipation vsBPH. 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 Patient did not want to change suboxone dose today - will try to stick with multi-modal strategy as tolerated. -patient denies recent drug use, but we will remain vigilant for possible withdrawal symptoms Chronic/Stable: #Hep C #Hx elevated LFT Positive Hep C quant on OSH records. Hep A, B antibodies positive. HIV neg on 04/30/24 - daily CMP, Mg -will need outpatient management on discharge #Chronic normocytic anemia Baseline Hgb 11-12. 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 I have personally reviewed interval events, laboratory data, and imaging. I discussed the case with the inpatient resident team. I agree with findings and planof care as documented by the resident (or have edited in purple). Martha Syed MD MPH 05/27/2024 16:57 * Agustin Whitt MD - 05/27/2024 0126 EST Orthopaedic Spine Progress Note Problem: C3, C4, T10, T11, L1, L2 osteomyelitis/discitis 24 Hour Events: - Admitted for the above problem Subjective: Not doing well. Still having some upper back pain. Denies numbness or tingling or weakness in his arms and legs. Objective: Blood pressure 121/78, temperature 36.6 ??C (97.8 ??F), temperature source Oral, resp. rate 18, height 175.3 cm (69), weight 86.2 kg (190 lb), SpO2 94%. No intake/output data recorded. Vitals: stable General: mild distress Respiratory: Non-labored Extremities: UE: RIGHT Deltoid (C5) 5/5 Biceps (C5, 6) 5/5 Triceps (C7) 5/5 Wrist/Finger Ext (C7, 8) 5/5 Wrist/Finger Flex (C8, T1) 5/5 Interrosei (T1) 5/5 Fishing Rod Marker (T1) 5/5 LEFT Deltoid (C5) 5/5 Biceps (C5, 6) 5/5 Triceps (C7) 5/5 Wrist/Finger Ext (C7, 8) 5/5 Wrist/Finger Flex (C8, T1) 5/5 Interrosei (T1) 5/5 Fishing Rod Marker (T1) 5/5 RIGHT Brachioradialis (C5) 1+, Bicep (C5) 1+, Tricep (C7) 1+ Sensation intact (C5/6/7/8/T1 distributions). - Soriano LEFT Brachioradialis (C5) 1+, Bicep (C5) 1+, Tricep (C7) 1+ Sensation intact (C5/6/7/8/T1 distributions). - Soriano LE : Right: Iliopsoas(L2, 3) 5/5 Quadricep (L3, 4) 5/5 Hamstrings (L5, S1) 5/5 Tibialis Anterior (L4, 5) 5/5 Gastroc/Soleus (S1, S2) 5/5 Extensor Hallicus (L5) 5/5 Left: Iliopsoas(L2, 3) 5/5 Quadricep (L3, 4) 5/5 Hamstrings (L5, S1) 5/5 Tibialis Anterior (L4, 5) 5/5 Gastroc/Soleus (S1, S2) 5/5 Extensor Hallicus (L5) 5/5 LE Reflex: Right: Patellar 2+, Achilles 1+ Sensation intact (L3/L4/L5/S1 distributions) Left: Patellar 2+, Achilles 1+ Sensation intact (L3/L4/L5/S1 distributions) Labs: Na/K/Cl/CO2: 137/4.1/100/26 (05/26 1432) BUN/Cr/glu/ALT/AST/amyl/lip: 11/0.66/157/16/21/--/-- (05/26 1432) WBC/Hgb/Hct/Plts: 6.66/11.7/34.3/277 (05/26 1432) Assessment: Marcos Camejo is a 44 y.o. male for former IV drug use on Suboxone, presenting as a transfer from [facility] for 2 weeks of lower back pain with associated fever and chills found to be MRSA bacteremic with MRI findings of C3, C4, T10, T11, L1, L2 osteomyelitis/discitis. Patient remains neurologically intact today. Recommend continued IV antibiotic therapy and medical management. Plan: No acute orthopedic spine surgical intervention planned Recommend ID consult for antibiotic tailoring Twice daily neurochecks throughout today Recommend IR guided biopsy of osteomyelitis to guide antibiotic treatment Nutritional optimization Ok for diet and chemo DVT ppx from orthopaedic standpoint Recommend PT for mobilization Remainder of care per primary team AGUSTIN WHITT MD 5:51 05/27/2024 * Agustin Whitt MD - 05/27/2024 0023 EST Orthopedic check On arrival patient says he has no low back pain and does not want to be bothered he denies any numbness and tingling or weakness in his legs. After discussion he was amenable to a lower extremity examination. On examination he was intact to light touch sensation diffusely through his bilateral lower extremities with full strength and no pathological reflexes. Agustin Whitt MD Orthopaedics PGY-3 #[id number] documented in this encounter H&P Notes * Liudmila Sue MD - 2024 1321 EST Adult Hospital Medicine Admission History & Physical Service Date: 2024 Admit Date: N/A Primary Care Provider: Raffi Merida Chief Complaint: Chief Complaint Patient presents with Back Pain Tx from [facility] s/p diagnosis of abscess at T10, T11, L1, and L2. Upon arrival to ED, VSS on , 04/27 back pain. HPI Marcos Camejo is a 44 y.o. male with a PMHx notable for IVDU (on suboxone), untreated Hep C, TUD who presents as an ED-to-ED transfer from [facility] for positive blood cultures and new thoracic/lumbar spinal abscesses noted on imaging. Per transfer paperwork, he was seen in the ED for fever and new back pain. Given normal labs and unremarkable CT at that time, he was sent home. However blood cultures drawn at that time grew MRSA in4 out of 4 bottles. He was counseled to return to the emergency department for further work-up, which includes an MRI of his spine. This was notable for new abscesses noted in T10, T11, L1 and L2. Labs prior to transfer otherwise unremarkable (CBC, BMP, lactate 1, negative RVP). Received vancomycin, Flexeril, Toradol, acetaminophen. Today, he says that for the past 4 months he has had recurrent back pain. He says that the pain wasin the center of his spine and did not radiate anywhere. He noticed that the pain would start afterhe exerted himself and would last for few days at a time. Associated symptoms include fevers up to 105 Fahrenheit, pain with walking, daily headaches on the left side without light sensitivity, soundsensitivity. He does not have chest pain, shortness of breath. He is also noticed bloating, abdominal distention and tells me he has not had a bowel movement in the last week. Reports his bowel movements are usually daily. Also with recent history of difficulty with urination whereby he says he hastrouble starting to pee and often it starts and stops. He also notes little appetite and has not eaten in the last few days. Has been hydrating with water. He does not have any bladder or bowel incontinence, numbness or weakness in the lower extremities. IVDU last 4 months ago, on 24 mg suboxone daily (takes 16 mg in AM and 8 mg in the evening). Also on seroquel 100 mg qhs. 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 She would be his medical decision-makershould he be unable to make his own decisions. Confirms he is full code. Smokes 1 pack/day, does not want any nicotine replacement this time. No other drug use. He does not drink. 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 Review of Systems A complete 10 point ROS was performed and pertinent positive and negative findings listed in HPI, otherwise negative. Past Medical History: Diagnosis Date Anxiety Arthritis Degenerative joint disease Herniated cervical disc IVDU (intravenous drug user) Past Surgical History: Procedure Laterality Date HERNIA REPAIR Social History Tobacco Use Smoking status: Every Day Current packs/day: 1.00 Average packs/day: 1 pack/day for 15.0 years (15.0 ttl pk-yrs) Types: Cigarettes Smokeless tobacco: Never Substance Use Topics Alcohol use: Never History reviewed. No pertinent family history. Current Outpatient Medications Medication Sig methadone (DOLOPHINE) 10 mg tablet Take 80 mg by mouth daily. Multivitamins with Minerals tablet Take 1 Tab by mouth daily. NAPROXEN SODIUM (ALEVE ORAL) Take by mouth. No Known Allergies Objective Vitals Temp: [36.1 ??C (96.9 ??F)] , Heart Rate: --, Pulse: --, Resp: [16-18] , BP: (125-131)/(80-95) , SpO2: [93 %-97 %] , Numeric Pain Level (Scale 1-10): 10 Weight: Weight : 86.2 kg (190 lb) Body mass index is 28.06 kg/m??. Physical Exam General: Alert and oriented, in no acute distress HEENT: MMM, no scleral icterus, PERRL, EOMI, poor dentition CVS: RRR, S1+S2 normal, no murmurs/rubs/gallop appreciated Resp: Maintaining spO2 saturation on room air, clear to ausculation bilaterally, no adventitious lung sounds, speaking in full sentences Abdomen: Soft, non-tender, distended Extremities: No cyanosis or edema Musculoskeletal: No joint tenderness or effusions on palpation Neuro: Lower extremity strength intact, no changes in sensation Skin: No Janeway lesions, Osler nodes Pressure ulcer present on admission: no Medications: Current Facility-Administered Medications: acetaminophen (TYLENOL) tablet 1,000 mg, 1,000 mg, oral, Q6H, Liudmila Sue MD bisacodyL (DULCOLAX) suppository 10 mg, 10 mg, rectal, Daily PRN, Liudmila Sue MD buprenorphine-naloxone (SUBOXONE) 8-2 mg SUBLINGUAL TABLET 1 Tablet, 1 Tablet, sublingual, QPM, Liudmila Sue MD [START ON 05/27/2024] buprenorphine-naloxone (SUBOXONE) 8-2 mg SUBLINGUAL TABLET 2 Tablet, 2 Tablet,sublingual, DAILY, Liudmila Sue MD cyclobenzaprine (FLEXERIL) tablet 10 mg, 10 mg, oral, TID PRN, Liudmila Sue MD [START ON 05/27/2024] enoxaparin (LOVENOX) injection 40 mg, 40 mg, subcutaneous, DAILY, Liudmila Sue MD lidocaine (PF) 10 mg/mL (1 %) injection 2 mg, 2 mg, intradermal, PRN, Liumdila Sue MD nicotine polacrilex (COMMIT) 2 mg lozenge 2 mg, 2 mg, oral, Q1H PRN, Liudmila Sue MD polyethylene glycol 3350 (MIRALAX) packet 17 g, 17 g, oral, BID, Liudmila Sue MD QUEtiapine (SEROQUEL) tablet 100 mg, 100 mg, oral, QHS, Liudmila Sue MD ramelteon (ROZEREM) tablet 8 mg, 8 mg, oral, AT BEDTIME PRN, Liudmila Sue MD senna (SENOKOT) tablet 2 Tablet, 2 Tablet, oral, QHS, Liudmila Sue MD vancomycin (VANCOCIN) 1,750 mg in sodium chloride (NS) 0.9 % 500 mL IVPB, 20 mg/kg, intravenous, Now, Taj Parsons DO, 1,750 mg at 05/26/24 1457 vancomycin (VANCOCIN) 1,750 mg in sodium chloride (NS) 0.9 % 500 mL IVPB, 20 mg/kg, intravenous, Q12H, Liudmila Sue MD Current Outpatient Medications: methadone (DOLOPHINE) 10 mg tablet, Take 80 mg by mouth daily., Disp: , Rfl: Multivitamins with Minerals tablet, Take 1 Tab by mouth daily., Disp: , Rfl: NAPROXEN SODIUM (ALEVE ORAL), Take by mouth., Disp: , Rfl: Labs CBC: Recent Labs 05/26/24 1432 WBC 6.66 RBC 4.27* HGB 11.7* HCT 34.3* MCV 80* MCH 27.4* MCHC 34.1 PLT 277 NEUTROABS 4.01 BMP: Recent Labs 05/26/24 1432 NA 137 K 4.1 CL 100 CO2 26 BUN 11 CREATININE 0.66 CALCIUM 9.3 LABALBU 3.9 LFT: Recent Labs 05/26/24 1432 TBIL <0.5 ALKPHOS 58 AST 21 ALT 16 Inflammatory Markers: Recent Labs 05/26/24 1432 CRP 210.7* Imaging No results found. Scans in chart from OSH Assessment Marcos Camejo is a 44 y.o. male with a PMHx notable for IVDU (on suboxone), TUD, mood disorder (seroquel) who presents as direct transfer from [facility] ED for MRSA bacteremia c/b thoracicand lumbar spinal abscesses. Plan to continue vancomycin with close follow-up by orthopedics. No indication for surgery at this time, plan to medically manage given no signs of cauda equina. Plan #Thoracic and lumbar spinal abscess #MRSA bacteremia No cauda equina symptoms. Recent hx of IVDU, sober for last [address] head negative at OSH. MR notable for new spinal abscesses. 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 Etiology could be related to constipation vsBPH. - Bowel regimen as above - CTM #Hyperglycemia - trend daily - if elevated tomorrow AM, would get A1c Chronic/Stable: #Hep C #Hx elevated LFT Positive Hep C quant on OSH records. Hep A, B antibodies positive. - daily CMP, Mg - Dispo: ollow-up with ID re: Hep C treatment #Chronic normocytic anemia Baseline Hgb 11-12. 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 Liudmila Sue MD (she/her) Internal Medicine, PGY-3 Epic Chat preferred 05/26/24 15:24 Some of this note was transcribed with 15Five dictating software. While it was proofread, please forgive any unnoticed grammatical or word errors that occurred due to incorrect transcribing. Cosigned by Martha Syed MD MPH at 2024 16:45 EST Associated attestation - Martha Syed MD MPH - 2024 1645 EST Attending Attestation I have interviewed and examined the patient. I personally reviewed laboratories studies, radiographic studies, ECG, and prior records. I discussed the case with: Dr. Sue. I agree with and edited (in purple) the findings and plan of care as documented in the note below. In summary, 44 yo M with PMHx of IVDU, OUD (on 24 mg suboxone), tobacco use disorder who presented as ED to ED transfer from [facility] for high grade MRSA bacteremia and T10-L2 osteo-discitis w epidural abscess with c/f narrowing of spinal canal. Afebrile, HD stable on arrival. No neurologicdeficits/cauda equina. Ortho consulted, no OR plan at the moment but will follow neuro exam closely. On Vanc. TTE pending. ID consult tomorrow. Martha Syed MD MPH 2024 16:35 documented in this encounter Procedure Notes * Shyann Encinas RN - 06/13/2024 1904 ESTAssociated Order(s): INSERT PICC LINE Images from the original note were not included. Central Catheter Insertion First Catheter This Session supervisor yard: Patient Location: [id number] Preliminary Data: Insertion Date: 06/13/24 Insertion Time: 182 First Lay Brother: Shyann Encinas RN/MA Documenting Procedure: tamara chandler Pre-procedure: Time [...] Fewer Needle Passes: 2 or fewer passes Physician Documentation Pre-Procedure: Procedure To Be Performed: New [...] Size: 4 mm (0.43cm) Vein Depth (cm): (0.62cm) Line Trim Length: 43 cm Line External Length: 1 cm Line Securement Device: Statlock device Catheter Secured At (cm):: (1cm) Responsible Service / IR Details: Responsible Service: [facility] RN Lidocaine 1% - Route/Dose (cc's): Intradermal;1 Central Line Materials and Methods: Number of Attempts: 1 Number of Sites Attempted: 1 Number of Kits Used: 1 Location Device Used: Sherlock;Ultrasound;3CG Central Line Operators: Number Of Operators: 1 First Lay Brother's Name: Shyann Encinas RN First Lay Brother's Title: Vascular precision lens polisher Unless otherwise noted, there were no complications, no blood loss and no cultures obtained. SHYANN ENCINAS RN 06/13/2024 19:05 documented in this encounter Consult Notes * Yuki Luna RN - 06/27/2024 1120 ESTAssociated Order(s): CONSULT DIABETES EDUCATION Diabetes Nurse Clinician Consult Note: current A1C=6.2 Type of DM: New diagnosis with >2 FBG >126 SMBG: none Medications: none DM Provider: none DM Hx: new this admission Assessment/Education: consult received for DM education for a new diagnosis. Marcos is aware his BG's have been high and he tells me that he was diagnosed with pre diabetes with A1C of 5.9 three months ago. He exercises regularly and eats healthy at home other than he does not drink sugar free beverages. We discussed switching to sugar free beverages today which he is amendable to. We discussed his current A1C and the importance of monitoring to prevent complications related to diabetes. He hasa glucometer at home and he was checking blood sugars prior to admission. He was having fatigue, extreme thirst and frequent urination and is continuing with these symptoms as well. He was monitoringthis with his PCP. His mother has T2 diabetes. Today provided a blue diabetes education folder including diabetes survival skills and diabetes and you booklet. He mentioned that he met with the RD today as well. No further needs identified at this time. Recommendations: Inpatient BG target 140-180 mg/dl. Consider Endocrinology consult if high glucose remains and consider adding basal insulin. Yuki Luna RN [facility] Diabetes Nurse Clinician Contact via secure chat or page Hyperglycemia (high blood sugar)-what is it and how to treat? You may have no symptoms, which is why it is important to check blood sugars! Hyperglycemia is a blood sugar over 150 mg/dl. How you might feel: Tired Dry mouth or skin Thirsty Frequent urination Headache Frequent infection Irritable Poor healing What to do: Drink 6-8 ounces of water or sugar free fluids every 1-2 hours. Eat less food. Be more physically active; go for a walk. Be sure you have taken your diabetes medication. Call your health care provider for advice if you forgot to take it. Check your blood sugar 3-4 times a day for 3-5 days in a row to see if blood sugars remain high. If you have type 1 diabetes, check urine ketones when blood sugar is over 250 mg/dl Call your doctor if: Blood sugar numbers stay over 150 mg/dl for 5 days. You have unexplained blood sugar of 300 mg/dl or higher. You are sick: ill, infection, injury, or are unable to keep fluids down. Urine ketones are moderate or large. What causes Hyperglycemia? Food: more food than usual; hidden sugars; too many carbohydrates or fats. Activity: less activity than usual or not exercising enough. Diabetes Medication: not enough insulin or diabetes medication; forgetting to take it. Other medication: taking other medications especially steroids. Illness, Infection or Injury: short or terminal press operator illness, even a migraine. * Claudia Eng RD - 06/27/2024 1042 ESTAssociated Order(s): CONSULT NUTRITION Nutrition Assessment Note: Initial Visit Reason for Visit: Consult New DM BACKGROUND DATA Reason for Admission: 44 y.o. male admitted with a chief complaint of back pain now with a principal diagnosis of MRSA bacteremia and T10-L2 osteo-discitis w epidural abscess with c/f narrowing of spinal canal Subjective: Noticed his BG's are running higher here. His gf and mom have DM he is familiar with reducing carb portions and increasing activity to lower BG's. Reviewed home diet - fairly well balanced but intakes Koolaid, ++sugar in coffee, etc that may be contributing to higher blood sugars. He was receptive to all advice offered and was looking over the carb counting handout I provided Current Nutrition Orders: Regular Physical Findings: Digestive Systems:intact Dentition: Teeth: Missing teeth per flowsheets Skin: BSS 22 Allergies on file: Patient has no known allergies. Anthropometrics: Height: 175.3 cm (69) Wt Readings from Last 6 Encounters: 06/03/24 87.4 kg (192 lb 9.6 oz) 02/17/23 78 kg (172 lb) 02/05/20 77.1 kg (170 lb) 02/02/20 77.1 kg (170 lb) 05/31/19 83.9 kg (185 lb) BMI: Body mass index is 28.44 kg/m??. Pertinent Medications: Current Facility-Administered Medications Medication Route Frequency acetaminophen (TYLENOL) tablet 1,000 mg oral Q6H alteplase (CATHFLO ACTIVASE) injection 2 mg intercatheter PRN baclofen (LIORESAL) tablet 10 mg oral TID bisacodyL (DULCOLAX) suppository 10 mg rectal Daily PRN buprenorphine-naloxone (SUBOXONE) 8-2 mg SUBLINGUAL TABLET 1 Tablet sublingual DAILY And buprenorphine-naloxone (SUBOXONE) 8-2 mg SUBLINGUAL TABLET 1 Tablet sublingual QHS ceftaroline fosamiL 600 mg in sodium chloride (NS) 0.9 % 50 mL IVPB intravenous Q8H DAPTOmycin 850 mg in sodium chloride (NS) 0.9 % 50 mL IVPB intravenous Q24H dextrose 50 % solution 12.5 g intravenous PRN enoxaparin (LOVENOX) injection 40 mg subcutaneous DAILY gabapentin (NEURONTIN) capsule 400 mg oral TID glucagon injection 1 mg intramuscular PRN insulin aspart U-100 (NOVOLOG FLEXPEN) injection 0-11 Units subcutaneous TID WC lactulose (CHRONULAC) 20 gram/30 mL solution 30 mL oral Q6H PRN lidocaine (PF) 10 mg/mL (1 %) injection 2 mg intradermal PRN lidocaine (PF) 10 mg/mL (1 %) injection 5 mg intradermal PRN LORazepam (ATIVAN) tablet 1 mg oral TID metFORMIN (GLUCOPHAGE-XR) ER tablet 500 mg oral DAILY naproxen (NAPROSYN) tablet 500 mg oral BID (BREAKFAST/DINNER) nicotine polacrilex (COMMIT) 2 mg lozenge 2 mg oral Q1H PRN pantoprazole (PROTONIX) tablet 20 mg oral DAILY BEFORE BREAKFAST polyethylene glycol 3350 (MIRALAX) packet 17 g oral BID QUEtiapine (SEROQUEL) tablet 100 mg oral QHS ramelteon (ROZEREM) tablet 8 mg oral AT BEDTIME PRN senna (SENOKOT) tablet 2 Tablet oral QHS simethicone (MYLICON) chewable tablet 80 mg oral Q6H PRN sodium chloride 0.9 % (flush) flush 10 mL intercatheter WEEKLY sodium chloride 0.9 % (flush) flush 10 mL intercatheter PRN sodium chloride 0.9 % (flush) flush 20 mL intercatheter PRN Pertinent Labs: No results found for: ZINC, COPPER, SELENIUM, THIAMINE, FOLATE, EXQQSGUI09, METMMETHY, VITEALPH, RETINOL, VITD Lab Results Component Value Date/Time HGBA1C 6.2 (H) 05/27/2024 07:23 GLUCOSEPOC 215 (H) 06/27/2024 03:59 GLUCOSEPOC 263 (H) 06/26/2024 23:00 GLUCOSEPOC 200 (H) 06/26/2024 21:00 GLUCOSEPOC 299 (H) 06/26/2024 16:05 GLUCOSEPOC 194 (H) 06/26/2024 10:41 Estimated Nutrition Intake: 100% ASSESSMENT: DM ed appreciated Nutrition Education: DM ed - Educational materials provided: Carb counter - Information reviewed: - Carb counting/portions - Added sugar -Exercise and lowering BG's - Taught to: Patient - Readiness: acceptance - Outcomes: verbalized understanding BG's have been running high here on regular diet. RD reviewed lower carb diet- suggest CCD to help pt navigate restriction. Iron EOD appropriate Nutrition Risk Level: Moderate (2) MEDICAL NUTRITION THERAPY PLAN: -Dm ed complete -Suggest CCD to help reduce BG's -Iron EOD Claudia Eng RD, CD (Call PAS or use [email or web address] to page RD covering this unit) * Rene Jain MD - 06/09/2024 1631 EST Initial Psychiatric Consultation Patient Name: Marcos Camejo : 1980 Admit Date: 2024 data integration analyst: Raffi Merida Attending Provider: Meaghan Zapata,* Date of Consult: 06/09/24 Time of Consult: 3:00 PM Reason for Consult/Chief Complaint: Anxiety Team Requesting Consult: Medicine HPI Marcos Camejo is a 44 y.o. male with a reported psychiatric history of OUD, PTSD, ADHD, unspecified BPAD per chart review and a medical history notable for MSSA bacteremia, Hep C with no prior psychiatric hospitalizations and no prior suicide attempts who was admitted to [facility] on 2024 for MRSA bacteremia and T10-L2 osteo-discitis w/ epidural abscess w/ c/f narrowing of spinal canal. Psychiatry was consulted for management of anxiety. Pt now on rifampin, ceftaroline, and daptomycin due to persistent positive cultures. Cultures have not yet cleared. Per primary team, will likely require prolonged course (6-8 weeks) of IV antibiotics. Per pt's primary team, he felt like he had a panic attack on 06/08 as his anxiety has been increasing while being in the hospital. He received 1 mg Ativan which helped some. He also received a dose of Atarax which he did not find helpful. He has a history of leaving AMA, but did not state that he currently intends to leave. As his pain has improved, his anxiety has worsened. He is not sure what would be helpful, but said that he struggles feeling claustrophobic while on the medical floor. He finds it helpful to walk around, when his pain allows. Per primary team, Marcos scored a 18 on the GAD7 and 17 on the PHQ9. Medical and Surgical Histories Past Medical History: Diagnosis Date Anxiety Arthritis Degenerative joint disease Herniated cervical disc IVDU (intravenous drug user) Past Surgical History: Procedure Laterality Date HERNIA REPAIR Allergies Patient has no known allergies. Medications Scheduled Meds: acetaminophen, 1,000 mg, oral, Q6H buprenorphine-naloxone, 1 Tablet, sublingual, DAILY And buprenorphine-naloxone, 1 Tablet, sublingual, QHS ceftaroline fosamiL 600 mg in sodium chloride (NS) 0.9 % 50 mL IVPB, 600 mg, intravenous, Q8H DAPTOmycin in 0.9 % sod chlor, 1,000 mg, intravenous, Q24H enoxaparin, 40 mg, subcutaneous, DAILY gabapentin, 300 mg, oral, TID LORazepam, 1 mg, oral, TID pantoprazole, 20 mg, oral, DAILY BEFORE BREAKFAST polyethylene glycol 3350, 17 g, oral, BID QUEtiapine, 100 mg, oral, QHS rifAMPin, 300 mg, oral, TID senna, 2 Tablet, oral, QHS PRN medications: bisacodyL, cyclobenzaprine, HYDROmorphone, ketOROLAC, lactulose, lidocaine, nicotine polacrilex, ramelteon, simethicone Psychiatric History Psychiatric Diagnoses: #OUD #PTSD #ADHD #Unspecified BPAD per chart review Significant Substance Use History: Alcohol: None Tobacco/nicotine: 1 PPD/15 years Opioids: hx of IVDU on suboxone History of Self Injury / Suicidal Behavior(s): None reported Inpatient Care History: None, per chart review Outpatient Care History and Current: None endorsed Psychiatric Medications (prior to admission and past): Suboxone Family History Family Psychiatric History Not discussed Social History -Lives with girlfriend, together for 1.5 years -Marital Status: not -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 Psychiatric ROS as noted in HPI. OBJECTIVE Vital Signs BP 122/89 (BP Cuff Location: Right arm, BP Patient Position: Semi fowlers) Pulse 82 Temp 36.7 ??C (98.1 ??F) (Oral) Resp 18 Ht 175.3 cm (69) Wt 87.4 kg (192 lb 9.6 oz) SpO2 95% BMI 28.44 kg/m?? Mental Status Exam Appearance: Appears stated age. Adequate grooming. Good eye contact. Behavior/Manner: Calm. Engaged. Musculoskeletal/Motor: No tics or tremors. Orientation: Grossly oriented. Attention/Concentration: Intact. Recent and Remote Memory: Intact long and short term memory. Speech: Normal rate, rhythm, volume, and tone. Mood: Okay Affect: Appropriate. Thought Process and Associations: Linear. Logical. Thought Content: No delusions or paranoia. Perception: No observable response to internal stimuli. Suicidal Ideation: No SI. Homicidal Ideation: No HI spontaneously endorsed. Insight Fair Judgment Fair Suicide Inquiry: Suicidal Thoughts (Frequency, Duration, Intensity/Controllability, Plan): None currently Availability of Means (including firearms availability): No firearms Preparatory Acts/Behaviors: n/a Intent (lethality): n/a History of Attempts (if yes, see above in Psychiatric History for details): none spontaneously endorsed Labs and Other Studies Lab Results Component Value Date/Time NA 139 06/08/2024 15:08 K 4.9 06/08/2024 15:08 CL 101 06/08/2024 15:08 CO2 25 06/08/2024 15:08 BUN 25 06/08/2024 15:08 CREATININE 0.82 06/08/2024 15:08 GLU 91 02/02/2020 07:05 CALCIUM 9.5 06/08/2024 15:08 MG 2.2 05/31/2024 08:13 WBC 7.05 06/08/2024 16:37 HGB 10.9 (L) 06/08/2024 16:37 HCT 31.5 (L) 06/08/2024 16:37 PLT 267 06/08/2024 16:37 ALKPHOS 118 06/08/2024 15:08 AST 29 06/08/2024 15:08 ALT 22 06/08/2024 15:08 PROT 6.2 02/02/2020 07:05 Reviewed Imaging Reviewed Hospital Problems Principal Problem: MRSA bacteremia Active Problems: Discitis of thoracolumbar region Epidural abscess Sepsis due to methicillin resistant Staphylococcus aureus (MRSA) without acute organ dysfunction ([facility]) Acute pain Opioid use disorder Diagnoses #Generalized anxiety disorder #Depression, unspecified ASSESSMENT AND RECOMMENDATIONS Marcos Camejo is a 44 y.o. male with a reported psychiatric history of OUD, PTSD, ADHD, unspecified BPAD per chart review and a medical history notable for MSSA bacteremia, Hep C with no prior psychiatric hospitalizations and no prior suicide attempts who was admitted to [facility] on 2024 for MRSA bacteremia and T10-L2 osteo-discitis w/ epidural abscess w/ c/f narrowing of spinal canal. Psychiatry was consulted for management of anxiety. Marcos presents as anxious, consistent with his concerns about his uncertain disposition and projected lengthy course in the hospital. This is further corroborated by the scores of 18 on the GAD7 and17 on the PHQ9 performed by his primary team. There is likely a reciprocal relationship between hispain level and anxiety, with one contributing to the other and vice versa, complicating his abilityto manage his anxiety symptoms and remain engaged with his treatment. Would benefit from pharmacologic assistance with his anxiety symptoms as documented below to encourage continued engagement with treatment plan. Would encourage re-evaluation with GAD7 and/or PHQ9 after initiation of treatment to assess for anyimprovements in his anxiety/depression symptoms. Risk assessment: A risk assessment is of limited absolute predictive value. He does not currently endorse SI and does not appear to pose an acute risk of harm to himself or others due to a primary psychiatric condition. Would patient meet criteria for involuntary psychiatric hospitalization (EE)? no Recommendations: - Ativan 1 mg PO TID - Monitor for over-sedation, adjust as necessary - May consider repeating GAD7 and/or PHQ9 to evaluate for any improvements in anxiety/depression symptoms Thank you for this interesting consultation. After hours and on weekends, please call the answeringservice. Nathan Cates, MS4 06/09/2024 16:32 Attestation: I was present with the medical student for the history, exam, and medical decision making documented. I have personally performed my own physical exam and medical decision making. I haveverified and agree with (or, as indicated, have edited) the medical student's documentation. Rene Jain MD 06/09/2024 16:59 * Moe Mcgee MD [facility] [place] 05/27/2024 1447 EST Infectious Diseases Initial Consult Admit Date: 2024 Date of Service: 05/27/2024 Requesting Physician: Martha Syed Reason for Consult: Vertebral osteomyelitis HPI Marcos Camejo is a 44 y.o. male with IVDU admitted 2024 for vertebral osteomyelitis and MRSA bacteremia. Per outside records, he presented back to [facility] in [place] 05/25 for 4/4 positive blood cultures growing MRSA. He had an MRI spoine which showed T10-11, L1-2 osteomyelitis/discitisand T10-11 early phlegmon and early abscess. He was started on vancomycin and transferred to [facility] due to lack of beds at [facility]. He was seen by Orthopedics here at [facility] who felt he was neurolgicintact without need for surgery. He remained on vancomycin. A TTE did not have obvious vegetations. Today, he reports several months of back pain and intermittent fevers. He last IV drugs around thattime. His back pain is more profound with movement and on palpation. He has some slight ab pain. Nodyspnea, chest pain, rash. 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 Alcohol: None. Recreational Drugs: Last IVDU months ago. Relationships / living situation: Lives in [place]. Family History Reviewed in chart. Vital Signs Afebrile Room air Physical Exam General: In no acute distress. Eyes closed due to pain. Lungs: Clear to auscultation anteriorly. Cardiac: Normal rate and regular rhythm. No murmur. 2+ radial pulses. Neuro: Alert and oriented x4. Face symmetrical. Moving all extremities spontaneously. Extremities: No lower extremity edema. Psych: Appropriate mood and affect. Access PIV Labs 05/27/2024 WBC 6.01 Hgb 10.9 Plt N/A Cr 0.61 Microbiology [facility] 05/24/2024 Blood x2: MRSA [facility] 05/01/2024 Syphilis Ab: Negative Quantiferon: Negative HAV tAB+ HBV cAb-, sAb+, sAg- HCV RNA: 474,000 HIV Ab/Ag 4th gen: Negative 2024 Blood x2: MRSA Imaging [facility] 05/25/2024 MRI C, T, L spine w and wo contrast T10-11 discitis osteomyelitis with epidural phlegmon and early abscess formation. L1-2 probably discitis osteomyelitis. Assessment Marcos Camejo is a 44 y.o. male with MRSA bacteremia causing vertebral osteomyelitis. MRSA bacteremia T10-11 osteomyelitis/discitis c/b phlegmon L1-2 osteomyelitis/discitis IVDU He has a significant infection likely from IVDU with phlegmonous changes and unclear if there is a true epidural abscess. For now he will not require spinal surgery based on Ortho evaluation. He is at high risk for endocarditis and has some new abdominal pain to suggest possible embolic phenomenon;I.e. splenic or mesenteric emboli. We should obtain new imaging to evaluate the extent of his infection which would change our management if he were to significant pulmonary involvement necessitatingvancomycin use over daptomycin. If he doesn't have a large burden of pulmonary septic emboli then we can switch to daptomycin. He will likely need a MARIBEL, but we can start with CT scans for now. Chronic HCV Outpatient management. Recommendations Diagnostics CT chest, abdomen, pelvis with contrast: evaluate for embolic phenomena Repeat blood culture x2 [employer] Vancomycin IV goal AUC 400-600 Recommendations discussed with primary team. Patient was discussed with attending, Dr. Mcgee. Wilbur Pizarro MD Infectious Diseases Fellow ID ATTENDING IDU-associated thoracic and lumbar spinal osteo with associated phlegmon vs early abscess, no cleardrainable focus or other surgical indication, stable and tolerating antibiotics, in pain. CXR a fewdays ago suggested atelectasis vs septic emboli vs pneumonia, a distinction affecting antibiotic choices. Abdominal tenderness on exam, in pt at risk for embolic disease. We should give vancomycin for now, repeat blood cultures serially until cleared, get thoracic imaging, transition to daptomycin if no pneumonia or other major lung involvement, and likely plan on MARIBEL to evaluate for endocarditis-related indications for cardiac surgery. We will follow. I interviewed and examined the patient and perused the relevant labs, micro, imaging, path and other relevant data independently in the formulation of the plan above, which I reviewed and agree with,with edits as appropriate. Electronically signed by Moe Mcgee MD [facility] [place] 05/28/2024 10:04 EST * He Benites MD - 2024 1210 EST Orthopaedic Spine Surgery Consultation Consultation requested by: Dr. Parsons for: T10-L2 osteomyelitis HPI: Marcos Camejo is a 44 y.o. male with past medical history significant for former IV drug use onSuboxone, presenting as a transfer from [facility] for osteomyelitis discitis T10-L2 identified on MRI. He notes he has had months of lower back pain that worse in the last week. He went to outside hospital where blood cultures were drawn and demonstrated MRSA positivity, so MRI was obtained of the spine which demonstrated T10, T11, L1, L2 osteomyelitis and was transferred here for further care. Received vancomycin at OSH. He endorses months of lower back pain but with worsening over the past 2 weeks. He also notes he has had about 2 weeks of fever and chills that prompted his initial emergency department visit at outside hospital. He denies pain in the bilateral upper or lower extremities. Denies numbness or tingling. Denies saddle anesthesia. He has been ambulating although has had to use a cane for the past 2 weeks secondary to his lower back pain. He last urinated yesterday. He notes he has not had a bowel movement in 5 days which is abnormal for him. Denies dexterity difficulties. Denies new balance difficulties. Ambulatory status: Independent at baseline however has been using a cane for the past 2 weeks secondary to lower back pain Last meal: 5 days ago Past Medical History: Diagnosis Date Anxiety Arthritis Degenerative joint disease Herniated cervical disc IVDU (intravenous drug user) Past Surgical History: Procedure Laterality Date HERNIA REPAIR Prior to Admission medications Medication Sig Start Date End Date Taking? Authorizing Provider methadone (DOLOPHINE) 10 mg tablet Take 80 mg by mouth daily. Provider, MD Chikis Multivitamins with Minerals tablet Take 1 Tab by mouth daily. Provider, MD Chikis NAPROXEN SODIUM (ALEVE ORAL) Take by mouth. Fa, Emergency Nurse, RN No Known Allergies History reviewed. No pertinent family history. Social History: Former IV drug use, quit 6 months ago. 1 pack/day smoker. Denies EtOH. Lives in [place] with his girlfriend in a house. Not currently working. reports that he has been smoking cigarettes. He has a 15 pack-year smoking history. He has never used smokeless tobacco. He reports that he does not currently use drugs after having used the following drugs: Marijuana, Methamphetamines, and Cocaine. Frequency: 7.00 times per week. He reports that he does not drink alcohol. Occupational History Not on file Review of Systems: A complete 10-point review of systems was completed and is negative except for the above positive mentions in the HPI. Physical Exam: BP (!) 131/95 Temp 36.1 ??C (96.9 ??F) (Oral) Resp 18 Ht 175.3 cm (69) Wt 86.2 kg (190 lb) SpO2 97% BMI 28.06 kg/m?? Gen: no apparent distress Cards: Regular rate as judged by distal pulses Pulm: Non-labored breathing Focused Musculoskeletal and Neurovascular Examination Temp (24hrs), Av.1 ??C (96.9 ??F), Min:36.1 ??C (96.9 ??F), Max:36.1 ??C (96.9 ??F) Blood pressure (!) 131/95, temperature 36.1 ??C (96.9 ??F), temperature source Oral, resp. rate 18,height 175.3 cm (69), weight 86.2 kg (190 lb), SpO2 97%. Gen: mild distress, in pain. Alert, normal mood & communication Back: No TTP in C-spine. Tenderness palpation of the lower thoracic and lumbar spine. No bogginess,no step offs, no abrasions/ecchymoses Right Upper Extremity Left Upper Extremity Deltoid (C5) 5/5 Biceps (C5, 6) 5/5 Triceps (C7) 5/5 Wrist/Finger Ext (C7, 8) 5/5 Wrist/Finger Flex (C8, T1) 5/5 Interrosei (T1) 5/5 Fishing Rod Marker (T1) 5/5 Deltoid (C5) 5/5 Biceps (C5, 6) 5/5 Triceps (C7) 5/5 Wrist/Finger Ext (C7, 8) 5/5 Wrist/Finger Flex (C8, T1) 5/5 Interrosei (T1) 5/5 Fishing Rod Marker (T1) 5/5 Brachioradialis (C5) 1+, Bicep (C5) 2+, Tricep (C7) 1+ Negative Soriano Brachioradialis (C5) 1+, Bicep (C5) 2+, Tricep (C7) 1+ Negative Soriano Sensation intact (C5/6/7/8/T1 distributions). Sensation intact (C5/6/7/8/T1 distributions). Palpable radial pulse Palpable radial pulse Right Lower Extremity Left Lower Extremity Iliopsoas(L2, 3) 5/5 Quadricep (L3, 4) 5/5 Hamstrings (L5, S1) 5/5 Tibialis Anterior (L4, 5) 5/5 Gastroc/Soleus (S1, S2) 5/5 Extensor Hallicus (L5) 5/5 Iliopsoas(L2, 3) 5/5 Quadricep (L3, 4) 5/5 Hamstrings (L5, S1) 5/5 Tibialis Anterior (L4, 5) 5/5 Gastroc/Soleus (S1, S2) 5/5 Extensor Hallicus (L5) 5/5 Patellar 2+, Achilles 1+ Equivocal Babinksi, 2 beats clonus Patellar 2+, Achilles 1+ Equivocal Babinksi, 1 beats clonus Sensation intact (L3/L4/L5/S1 distributions) Sensation intact (L3/L4/L5/S1 distributions) Palpable DP pulse Palpable DP pulse Rectal Exam: perianal sensation intact. intact tone. intact voluntary contraction. intact deep sensation. Ambulates with a nonantalgic gait. Able to heel and toe walk. Labs: Diagnostic Imaging: -Lumbar MRI demonstrates no overt evidence of central stenosis. There is STIR enhancement on the superior anterior vertebral body of L2, and the adjacent inferior anterior vertebral body of L1. -Thoracic MRI demonstrates STIR enhancement at the vertebral body of T11 and adjacent inferior vertebral body of T10 phlegmon localized to the posterior disc at T10-T11 as well as STIR enhancement inthe prevertebral space anterior to T9-T11. -Cervical MRI demonstrates STIR enhancement C3-C4 vertebral bodies. No cord edema. Assessment: Marcos Camejo [id number] 1980 Marcos Camejo is a 44 y.o. male for former IV drug use on Suboxone, presenting as a transfer from [facility] for 2 weeks of lower back pain with associated fever and chills found to be MRSA bacteremic with MRI findings of C3, C4, T10, T11, L1, L2 osteomyelitis discitis. He is neuro intact. Recommend medical send admission for IV antibiotics. Recommend IR guided biopsy to guide antibiotic treatment. Recommend ID consult. Recommend nutritional optimization. No orthopedic intervention at this time. We will perform twice a day neuro-checks. Will continue to monitor exam while inpatient. Plan: No orthopedic intervention Recommend medicine admission for IV antibiotics Twice a day neuro exams by us Recommend IR guided biopsy Recommend nutritional optimization with the following labs: Mg, Phos, B12, Folate, Calcium, Albumin, Pre-albumin, VitD, Zinc, PTH, iron, transferrin Recommend ID consult for antibiotic management Okay for diet and chemoprophylaxis from orthopedic perspective We will continue to follow exam Discussed with: Dr. Donavan BENITES MD PGY-2 Orthopaedic Surgery 2024 12:59 Pager #[phone], or EPIC Chat Cosigned by Dane Go MD at 2024 14:41 EST documented in this encounter ED Notes * Taj Prasons, - 2024 1115 EST Emergency Department Visit Medical Decision Making 12:09 Patient's case discussed with orthopedics. They will come evaluate the patient in the ED. 12:32 Patient evaluated by orthopedics. They state the patient's case is non operative. Medical Decision Making This is a 44-year-old gentleman with a history of IV drug use who presents today as a transfer froman outside hospital for discitis and concern for evolving epidural abscess. Surgery saw the patientand he was deemed a nonsurgical candidate, he was already started on antibiotics at the outside hospital. Orthopedic surgery will see him and do daily neurochecks while he is inpatient, admitted to the floor in stable condition. Problems Addressed: Discitis of thoracolumbar region: complicated acute illness or injury Amount and/or Complexity of Data Reviewed Labs: ordered. Risk Prescription drug management. Decision regarding hospitalization. Final diagnoses: Discitis of thoracolumbar region Disposition: Admitted Chief complaint: Back Pain HPI Marcos Camejo is a 44 y.o. patient with a past medical history of IV drug use (on suboxone) andhepatitis C who presents to the ED as a transfer from [facility] with known abscesses at T10,T11, L1 and L2 with associated discitis. The patient reports several days of back pain and abdominal pain. He says he has not had a bowel movement in 4 to 5 days. He also reports difficulty urinating, noting he has not voided since last night. He says his bladder does not feel full. He received vancomycin at [facility] before being transferred. The patient denies recent IV drug use, the last time heinjected was a few years ago. History was provided by: patient and medical records Records reviewed include: Transfer Note from [facility] - The patient presented there severaldays ago and had 4/4 blood cultures with MRSA. He was called to come back yesterday and was reporting lower back pain at that time. He had a MRI that showed T10 - L2 discitis with developing phlegmon. The patient was transferred here for IV antibiotics and workup for endocarditis. The patient had anegative PVR last night. Patient's pertinent PMH, FH, SH were reviewed and edited as necessary. Nursing notes reviewed. A medical screening exam was performed. Physical Exam BP 104/65 (BP Cuff Location: Right arm, BP Patient Position: Semi fowlers) Pulse 73 Temp 36.6 ??C (97.8 ??F) (Oral) Resp 16 Ht 175.3 cm (69) Wt 86.2 kg (190 lb) SpO2 94% BMI 28.06 kg/m?? Physical Exam Vitals and nursing note reviewed. Constitutional: General: He is not in acute distress. Appearance: He is normal weight. He is not ill-appearing or toxic-appearing. HENT: Head: Normocephalic and atraumatic. Mouth/Throat: Mouth: Mucous membranes are moist. Pharynx: Oropharynx is clear. Eyes: General: No scleral icterus. Conjunctiva/sclera: Conjunctivae normal. Pupils: Pupils are equal, round, and reactive to light. Pulmonary: Effort: Pulmonary effort is normal. Skin: General: Skin is warm and dry. Neurological: General: No focal deficit present. Mental Status: He is alert and oriented to person, place, and time. Psychiatric: Mood and Affect: Mood normal. Procedures Procedures This documentation is recorded by Carolynn Hartman acting as Scribe under the direction and presence of Taj Parsons DO. Taj Parsons DO: I personally performed the services recorded by the scribe in my presence. I confirm the scribe's documentation has been reviewed by me to accurately and completely record my work,treatment, procedures, and medical decision making. documented in this encounter Miscellaneous Notes * Plan of Care - Keira Patiño RN - 07/02/2024 1243 EST Nursing Discharge Note D: Patient noted with discharge orders to: [facility]. A: Prescriptions e-scripted. Reviewed discharge instructions and prescriptions with Patient PICC left in place and flushed per protocol. Belongings collected and sent home with patient. Report called to Trav at 1230. R: Patient verbalized understanding of discharge instructions and denied further questions. KEIRA PATIÑO RN 07/02/2024 12:43 * Plan of Care - Wilfredo Alfonso RN - 07/02/2024 0518 EST Problem: Daily Care Plan Goals Goal: Care Plan Documentation Outcome: Ongoing Flowsheets (Taken 07/01/2024 2100) Area of Focus: Sleep Goal This Shift: Pt would like to sleep well this shift. End of Shift [id number] Data: Pt is A/OX3/Ind. Full Code. Room Air. VS stable. MRSA Iso. FS ACHS. PICC to GREGORIO, flushes wellwith brisk blood return. Action: Intermittent IV Abx scheduled until 07/20/24. Response: Pt is resting at bedside at this time. Call banda within reach. WILFREDO ALFONSO RN 07/02/2024 5:18 * Plan of Care - Neel Hartmann, DAVID - 06/30/2024 2333 EST Problem: Daily Care Plan Goals Goal: Care Plan Documentation Flowsheets (Taken 06/30/2024 191) Area of Focus: Sleep Goal This Shift: pt will report restful sleep Data: Pt w/ MRSA bacteremia, T10-L2 osteo-discitis, epidural abscess- plan for IV abx through 07/20. AOx3, voiding, indep in room, VSS on RA. Action: Administered scheduled and prn medications, see MAR. Hourly rounding completed. Clustered care & decreased environmental stimuli to allow for rest. Response: Pt reporting pain of 3/10 this shift, localized to back. States he believes current analgesics are effective. Was able to sleep between nursing interventions. PICC w/ good blood return. Currently resting in bed w/ call banda & belongings within reach, pending placement to complete IV abx course. NEEL HARTMANN RN 07/01/2024 * Plan of Care - Keira Patiño, DAVID - 06/30/2024 1412 EST Problem: Daily Care Plan Goals Goal: Care Plan Documentation Flowsheets (Taken 06/30/2024 0705) Area of Focus: Safety Goal This Shift: Pt will remain safe this shift Data: HD#35 s/p epi abscess. A&ox3, VSS on RA. Calls appropriately. PICC to RUE, flushing w/ blood return. ACHS FS. Rates pain 2/10. Action: Medicated per eMAR. IV abx given. Independent in rm. Hourly rounding. Response: Tolerating meds, interested in Baclofen increase d/t good pain control. Resting comfortably in bed, able to call appropriately, call banda within reach. KEIRA PATIÑO RN 06/30/2024 14:12 * Plan of Care - Neel Hartmann RN - 06/30/2024 0414 EST Problem: Daily Care Plan Goals Goal: Care Plan Documentation Flowsheets (Taken 06/29/2024 1906) Area of Focus: Sleep Goal This Shift: pt will report restful sleep Data: Pt w/ MRSA bacteremia, T10-L2 osteo-discitis, epidural abscess- plan for IV abx through 07/20. AOx3, voiding, indep in room, VSS on RA. Action: Administered scheduled and prn medications, see MAR. Hourly rounding completed. Clustered care as possible to promote rest. Response: Pt endorsing pain up to 6/10 overnight, states pain is controlled with current regimen. FS @ HS 152. Slept throughout night. Currently resting in bed w/ call banda & belongings within reach. NEEL HARTMANN RN 06/30/2024 * Plan of Care - Keira Patiño RN - 06/29/2024 1527 EST Problem: Daily Care Plan Goals Goal: Care Plan Documentation Outcome: Met This Shift Flowsheets (Taken 06/28/2024 2330 by Gabriel Carter, DAVID) Area of Focus: Pain/ Comfort Goal This Shift: tolerable pain levels Data: HD#34 s/p epi abscess. A&ox3, VSS on RA. Calls appropriately. PICC to RUE, flushing w/ blood return. ACHS FS. Rates pain 2/10. Action: Medicated per eMAR. IV abx given. Independent in rm. Hourly rounding. Response: Tolerating meds, resting comfortably in bed, able to call appropriately, call banda withinreach. KEIRA PATIÑO RN 06/29/2024 15:27 * Plan of Care - Gabriel Carter RN - 06/29/2024 0143 EST Problem: Daily Care Plan Goals Goal: Care Plan Documentation Outcome: Ongoing Flowsheets (Taken 06/28/2024 2330) Area of Focus: Pain/ Comfort Goal This Shift: tolerable pain levels Data: pt admitted 05/26 for MRSA bacteremia and T10-L2 osteo-discitis w epidural abscess with c/f narrowing of spinal canal. A/Ox3, VSS on RA. Independent in room. Voiding. Rating pain 2/10. Action: administered meds per MAR. Clustered care to promote rest, hourly rounding completed. Response: pt resting in bed with call banda and personal items in reach at this time. able to make needs known. GABRIEL CARTER RN 06/29/2024 1:43 * Plan of Care - Angelic Reynaga RN - 06/28/20242009 EST Problem: Daily Care Plan Goals Goal: Care Plan Documentation Flowsheets (Taken 06/28/2024 1600) Goal This Shift: pt to have stable VS Blood pressure 121/82, pulse 90, temperature 37.1 ??C (98.7 ??F), temperature source Oral, resp. rate 16, height 175.3 cm (69), weight 87.4 kg (192 lb 9.6 oz), SpO2 97%. Data: HD#34 admission for MRSA bacteremia and T10-L2 osteo-discitis w epidural abscess with c/f narrowing of spinal canal. A&Ox4. Up indep. PICC line with good blood return. IV abx. Voiding not saving. LBM today. BG 201 at dinner. Rates pain 3/10. Action: Pt medicated per SEP. Insulin given see MAR. Pt repositions per comfort. Hourly rounding completed. Care clustered to promote rest. Response: Pt resting in bed. Call light within reach. Able to make needs known. Cont with POC. * Plan of Care - Racquel Gregory RN - 06/28/2024 0413 EST Problem: Daily Care Plan Goals Goal: Care Plan Documentation Flowsheets Taken 06/28/2024 0413 Area of Focus: Pain/ Comfort Taken 06/27/2024 2108 Goal This Shift: Pt will emain comfortable during shift. Data: Pt admitted on 05/19/24 with a chief complaint of back pain now with a principal diagnosis of MRSA bacteremia and T10-L2 osteo-discitis w epidural abscess with c/f narrowing of spinal canal. VSS. Pt reports minimal pain. Pt' goal for he shift is to get adequate sleep overnight. Action: Pt medicated per order (see eMAR). Clustered care to promote sleep. Preformed hourly checks. Response: Pt remained comfortable. Pt sleeping at this time. Call light and personal needs within reach. RACQUEL GREGORY RN 06/28/2024 4:14 * Plan of Care - Cleo Babcock RN - 06/27/2024 0343 EST Problem: Daily Care Plan Goals Goal: Care Plan Documentation Outcome: Ongoing Flowsheets (Taken 06/27/2024 034) Area of Focus: Sleep Data: Assumed care of pt at 2300, Pt is A&Ox3, admitted 05/26/24 with T10-11, L1- 2 osteo-discitis/ MRSA bacteremia, rated back pain 3/10 beginning the shift, goal to have adequate sleep tonight Action: Nursing care clustered to promote sleep Response: Pt is sleeping at this moment, call banda within reach * Plan of Care - Renetta Jenkins RN - 06/26/2024 2311 EST Problem: Daily Care Plan Goals Goal: Care Plan Documentation Outcome: Ongoing Flowsheets (Taken 06/26/2024 1600) Area of Focus: Education Goal This Shift: Insulin education Data&Action: Pt admitted d/t MRSA bacteremia , Marcelo-11,L1-2 osteomyelitis. PICC in RUE. Pt educated on FS & insulin. Pt aware to call when food tray arrives for FS stick checks and insulin. Response: pt is resting comfortably in bed. Call banda within reach. called for dinner FS check. Goal for this shift met. RENETTA JENKINS RN 06/26/2024 23:12 * Plan of Care - Reji Aviles RN - 06/26/2024 0327 EST Problem: Daily Care Plan Goals Goal: Care Plan Documentation Flowsheets (Taken 06/25/2024 2100) Area of Focus: Sleep Goal This Shift: promote rest Note: Data & Action: Marcos rating pain 3/10 at start of shift. Medicated (see MAR). Clustered care to promote rest. Response: Marcos's pain well controlled with scheduled meds. Marcos able to rest well throughout the night. Callbell at bedside, able to make needs known. REJI AVILES RN 06/26/2024 03:27 * Plan of Care - Kiya Thao RN - 06/25/2024 1134 EST Problem: Daily Care Plan Goals Goal: Care Plan Documentation Flowsheets Taken 06/25/2024 1134 Area of Focus: Pain/ Comfort Taken 06/25/2024 0930 Goal This Shift: pt will report tolerable pain level D: Assumed care at 0700. HD # 30 r/t MRSA bacteremia and T10-11, L1-2 osteomyelitis, discitis, and T10-11 early phlegmon and early abscess. A&Ox3. VSS on RA. PICC RUE. Continent x2. Pain 2/10. Indep in room. A: Administered meds per MAR. Cluster care to promote rest. Hourly rounding complete. R: Pt resting in bed. Able to make needs known, call light within reach. * Plan of Rodolfo - Tracie Nelson RN - 06/25/2024 0344 EST Problem: Daily Care Plan Goals Goal: Care Plan Documentation Outcome: Met This Shift Flowsheets (Taken 06/24/2024 2100) Area of Focus: Pain/ Comfort Goal This Shift: pt will report tolerable pain levels Data: HD # 30 r/t MRSA bacteremia, T10-11, L1-2 osteomyelitis, discitis, and T10-11 early phlegmon and early abscess. PICC in RUE, Room air, voiding, daily BM's, independent in room. Pt rating pain up to 10/10 this shift. Action: Medicated per MAR. Clustered care to promote rest. Hourly rounding completed. Response: Pt refusing any PRN medication for pain-scheduled pain meds given. Pt currently resting in bed with call banda within reach, RR WNL. TRACIE NELSON RN 06/25/2024 3:44 * Plan of Rodolfo - Artie Bejarano RN - 06/24/2024 1307 EST Problem: Daily Care Plan Goals Goal: Care Plan Documentation Outcome: Met This Shift Flowsheets (Taken 06/24/2024 0911) Area of Focus: Pain/ Comfort Goal This Shift: pt will report tolerable pain Note: Data: pt rating his back pain 5/10, not requesting any PRN meds at this time. He states, the baclofen works fine. Action: administered scheduled meds per eMAR. Clustered care to promote rest. Response: pt continues to report 5/10 pain is tolerable and is happy with current regimen. WCTM. ARTIE BEJARANO RN 06/24/2024 13:05 * Plan of Care - Tracie Nelson RN - 06/24/2024 0451 EST Problem: Daily Care Plan Goals Goal: Care Plan Documentation Flowsheets (Taken 06/23/2024 2130) Area of Focus: Sleep Goal This Shift: pt will get adequate rest Data: HD # 29 r/t MRSA bacteremia, T10-11, L1-2 osteomyelitis, discitis, and T10-11 early phlegmon and early abscess. PICC in RUE, Room air, voiding, daily BM's, independent in room. Action: Medicated per MAR. Clustered care to promote rest. Hourly rounding completed. Response: Pt resting in bed with call banda within reach, RR WNL. TRACIE NELSON RN 06/24/2024 4:51 * Plan of Care - Liudmila Hale RN - 06/23/2024 1500 EST Problem: Daily Care Plan Goals Goal: Care Plan Documentation Outcome: Ongoing Flowsheets (Taken 06/23/2024 0700) Goal This Shift: pt communicates needs this shift Data: HD28 s/p MRSA, T10-11, L1-2 abscess. IV abx in RUE PICC. VSS on RA, indep in room. Rating pain 6-7/10. Action: Medicated per MAR. Clustered care to promote rest, hourly rounding completed. Response: Pt resting in bed w call banda in reach, able to make needs known. LIUDMILA HALE RN 06/23/2024 18:55 * Plan of Care - Tracie Nelson RN - 06/23/2024 0216 EST Problem: Daily Care Plan Goals Goal: Care Plan Documentation Outcome: Met This Shift Flowsheets (Taken 06/22/2024 1900) Area of Focus: Sleep Goal This Shift: pt gets adequate sleep this shift Data: HD # 28 r/t MRSA bacteremia, T10-11, L1-2 osteomyelitis, discitis, and T10-11 early phlegmon and early abscess. PICC in [facility], Room air, independent in room. Action: Medicated per MAR. Clustered care to promote rest. Hourly rounding completed. Response: Pt resting in bed with call banda within reach, RR WNL. TRACIE NELSON RN 06/23/2024 2:16 * Plan of Care - Liudmila Hale RN - 06/22/2024 1850 EST Problem: Daily Care Plan Goals Goal: Care Plan Documentation Outcome: Ongoing Flowsheets (Taken 06/22/2024 0700) Goal This Shift: pt communicates needs this shift Data: HD#27 r/t MRSA bacteremia, T10-11, L1-2 osteo, discitis. Indep in rm. IV abx in [facility] PICC. VSSon RA. Action: Medicated per MAR. Clustered care to promote rest. Hourly rounding completed. Response: Pt resting in bed w call banda in reach, able to make needs known. Pt compliant w d/c of his off unit privileges. LIUDMILA HALE RN 06/22/2024 18:50 * Plan of Care - Renetta Jenkins RN - 06/22/2024 0455 EST Problem: Daily Care Plan Goals Goal: Care Plan Documentation 06/22/2024 0455 by Renetta Jenkins RN outcome: Ongoing Flowsheets (Taken 06/21/2024 1940) Area of Focus: Sleep Goal This Shift: Pt will have a restfull night Data: Pt admitted d/t MRSA bacteremia. T10 -11, L1-2 osteomyelitis, discitis. Ambulates independently. Voiding. RA. PICC RUE w/IVABX. Action: All medication given per eMAR. Hourly rounding completed. Pt aware of off unit privileges on hold. Care clustered to promote sleep. Response: Pt stayed on unit this shift. Pt able to sleep for extended period without interruption. Resting in bed. Call banda within reach . RENETTA JENKINS RN 06/22/2024 4:57 * Plan of Care - Liudmila Hale RN - 06/21/2024 1705 EST Problem: Daily Care Plan Goals Goal: Care Plan Documentation Outcome: Ongoing Flowsheets (Taken 06/21/2024 0700) Goal This Shift: pt communicates needs this shift Data: HD #26 s/p MRSA bacteremia, T10-L2 abscess. A&Ox3, VSS on RA. Indep in room. IV abx. Rating 8-10/10 pain in back, refusing dilaudid. Pt off unit privileges on hold until Wed d/t violating privileges yesterday, pt aware. Action: Medicated per SEP. Hourly rounding completed. Pt reminded that he is not allowed off unit today. Response: Pt went off unit x2 without telling nursing. MD aware, at bedside & d/c off unit privileges. Pt agreeable. Resting in bed w call banda in reach, able to make needs known. LIUDMILA HALE RN 06/21/2024 17:05 * Plan of Care - Mariam Lehman RN - 06/21/2024 0005 EST Problem: Daily Care Plan Goals Goal: Care Plan Documentation Outcome: Met This Shift Flowsheets (Taken 06/20/2024 2358) Area of Focus: Sleep Goal This Shift: Pt will have adequate sleep during shift Data: HD#26 admitted 05/26/24 as a transfer from [facility] ED for High Grade MRSA bacteremiac/b T10-11, L1-2 osteomyelitis, discitis, and T10-11 early phlegmon and early abscess. PICC RUE w/IVABX through 07/19/23. Independent, voiding, LBM 06/19/24. PMHx significant for PMHx notable for IVDU (on suboxone), TUD, mood disorder (seroquel), Hep C, KAREN, anxiety, and hernia repair. Action: Assessment as documented. Medications given per SEP. Hourly rounding completed. Pain assessed Q8 and PRN. Clustered care to promote sleeping hours overnight. Response: Pt able to sleep for extended periods without interruption, goal met for shift. MARIAM LEHMAN RN 06/21/2024 0:05 * Plan of Care - Jose Loya RN - 06/20/2024 1711 EST Problem: Daily Care Plan Goals Goal: Care Plan Documentation Flowsheets (Taken 06/20/2024 0710) Area of Focus: Pain/ Comfort Goal This Shift: Pt will report tolerable pain Note: Data: Pt s/p MRSA bacteremia w/ epidural abscess and osteo-discitis. A&Ox3, VSS on RA. Independent. Off-unit order in place. Pt stated that his goal was to stay away from pain meds today. Action: Medicated per MAR. Pt went off the unit more than once this shift. Response: Discussed rules around leaving the unit w/ patient and notified MD. at bedside to speak with patient. Currently resting in bed w call banda in reach, pt stated that he just wanted to be left alone. JOSE LOYA RN 06/20/2024 17:11 * Plan of Care - Keira Patiño RN - 06/19/2024 1807 EST Problem: Daily Care Plan Goals Goal: Care Plan Documentation Outcome: Ongoing Flowsheets (Taken 06/19/2024 0710) Area of Focus: Pain/ Comfort Goal This Shift: Pain will be well managed Data: HD#24 s/p epi abscess & pos blood cultures. A&ox3, VSS on RA. Calls appropriately. PICC to RUE, flushing w/ blood return. Rates pain /. Action: Medicated per eMAR, PRNs given. IV abx given. Independent in rm. Hourly rounding. Response: Tolerating pain meds, resting comfortably in bed, able to call appropriately, call banda within reach. KEIRA PATIÑO RN 06/19/2024 18:07 * Plan of Care - Fausto Olivo RN - 06/18/2024 1900 EST Problem: Daily Care Plan Goals Goal: Care Plan Documentation Flowsheets (Taken 06/18/2024 0739) Area of Focus: Pain/ Comfort Goal This Shift: Pt will havv tolerable pain D: Assumed care at 0700. Pt is A&Ox3. Pt is continent. Pt Ambulates independently. Pt complaining of increased back pain and RUQ pain A: Medications given as ordered and per protocol. Hourly checks. Clustered care. R: Pt is resting comfortably in bed, all needs meet. Pt has call light within reach and Pt demonstrates appropriate use.. BP 120/78 (BP Cuff Location: Left arm, BP Patient Position: Semi fowlers) Pulse 85 Temp 36.9 ??C (98.5 ??F) (Oral) Resp 16 Ht 175.3 cm (69) Wt 87.4 kg (192 lb 9.6 oz) SpO2 93% BMI 28.44 kg/m?? * Plan of Care - Gabriel Shah RN - 06/18/2024 0529 EST Problem: Daily Care Plan Goals Goal: Care Plan Documentation Outcome: Ongoing Flowsheets (Taken 06/18/2024 0216) Area of Focus: Pain/ Comfort Data: Patient admitted d/t MRSA bacteremia and T10-L2 osteo-discitis w epidural abscess. Patient A&Ox3. Independent in the room. 10/10 pain rating. BM on 06/17 per patient. Voiding in bathroom. PICC line, single lumen to RUE. Action: Meds per SEP. Clustered care to promote rest. Response: Patient resting in bed. Can make needs known. GABRIEL SHAH RN 06/18/2024 2:17 * Plan of Care - Fausto Olivo RN - 06/17/2024 1406 EST Problem: Daily Care Plan Goals Goal: Care Plan Documentation Flowsheets (Taken 06/17/2024 0814) Area of Focus: Pain/ Comfort Goal This Shift: Pt will report tolerable pain D: Assumed care at 0700. Pt is A&Ox3. Pt is continent. Pt Ambulates independently. Pt pain rating between 5-9/10. A: Medications given as ordered and per protocol. Hourly checks. Clustered care. Environment for sleep promoted. R: Pt is resting comfortably in bed, all needs meet. Pt has call light within reach and Pt demonstrates appropriate use.. BP 107/73 (BP Cuff Location: Left arm, BP Patient Position: Semi fowlers) Pulse 85 Temp 36.8 ??C (98.3 ??F) (Oral) Resp 16 Ht 175.3 cm (69) Wt 87.4 kg (192 lb 9.6 oz) SpO2 95% BMI 28.44 kg/m?? * Plan of Care - Gabriel Shah RN - 06/17/2024 0515 EST Problem: Daily Care Plan Goals Goal: Care Plan Documentation Outcome: Ongoing Flowsheets (Taken 06/17/2024 0258) Area of Focus: Pain/ Comfort Data: Patient admitted d/t MRSA bacteremia and T10-L2 osteo-discitis w epidural abscess. Patient A&Ox3. Independent in the room. 8-10/10 pain rating. BM on 06/16 per patient. Voiding in bathroom.PICC line, single lumen to RUE. Action: Meds per SEP. Clustered care to promote rest. Response: Patient resting in bed. Can make needs known. GABRIEL SHAH RN 06/17/2024 2:59 * Plan of Care - Fausto Olivo RN - 06/16/2024 1935 EST Problem: Daily Care Plan Goals Goal: Care Plan Documentation Flowsheets (Taken 06/16/2024 0940) Area of Focus: Pain/ Comfort Goal This Shift: Pt will have tolerable pain D: Assumed care at 0700. Pt is A&Ox3. Pt is continent. Pt Ambulates independently. A: Medications given as ordered and per protocol. Hourly checks. Clustered care. Environment for sleep promoted. R: Pt is resting comfortably in bed, all needs meet. Pt has call light within reach and Pt demonstrates appropriate use.. BP 112/78 (BP Cuff Location: Left arm, BP Patient Position: Supine) Pulse 92 Temp 36.8 ??C (98.2 ??F) (Oral) Resp 16 Ht 175.3 cm (69) Wt 87.4 kg (192 lb 9.6 oz) SpO2 95% BMI 28.44 kg/m?? * Plan of Care - Gabriel Shah RN - 06/16/2024 0630 EST Problem: Daily Care Plan Goals Goal: Care Plan Documentation Outcome: Ongoing Flowsheets (Taken 06/16/2024 0228) Area of Focus: Pain/ Comfort Data: Patient admitted d/t MRSA bacteremia and T10-L2 osteo-discitis w epidural abscess. Patient A&Ox3. Independent in the room. 8/10 pain rating. BM on 06/15 per patient. Voiding in bathroom. PICC line, single lumen to RUE. Action: Meds per MAR. Clustered care to promote rest. Response: Patient resting in bed. Can make needs known. GABRIEL SHAH RN 06/16/2024 2:28 * Plan of Care - Kennedi Harden RN - 06/15/2024 1618 EST Problem: Daily Care Plan Goals Goal: Care Plan Documentation Outcome: Ongoing Flowsheets (Taken 06/15/2024 1618) Area of Focus: Pain/ Comfort Data: Pt with principal diagnosis of MRSA bacteremia and T10-L2 osteo-discitis w/ epidural abscess.A&Ox3. Independent within room. Voiding. 8/10 pain at start of shift. Action: Administered prn and scheduled medication per SEP. Hourly rounding. Clustered care. Response: Pt continuing to report pain of 8/10 despite interventions. Calls appropriately. Rested quietly in bed for much of the day. KENNEDI HARDEN RN 06/15/2024 16:18 * Plan of Care - Gabriel Carter RN - 06/15/2024 0457 EST Problem: Daily Care Plan Goals Goal: Care Plan Documentation Outcome: Ongoing Flowsheets (Taken 06/14/2024 2148) Area of Focus: Pain/ Comfort Goal This Shift: tolerable pain levels Data: Pt admitted 05/26 for MRSA bacteremia, T10-L2 osteo-discitis w/ epidural abscess w/ c/f narrowing of spinal canal. A/Ox3, VSS on RA. Independent in room. Voiding. Rating pain 8/10 this shift. Action: Administered meds per SEP. Clustered care to promote rest, hourly rounding completed. Response: Pt resting in bed with call banda and personal items in reach at this time. Able to make needs known. Continues to report 8/10 pain. GABRIEL CARTER RN 06/15/2024 4:57 * Plan of Care - Lucien Rice RN - 06/14/2024 1606 EST Problem: Daily Care Plan Goals Goal: Care Plan Documentation Flowsheets (Taken 06/14/2024 1006) Area of Focus: Pain/ Comfort Goal This Shift: pt will report tolerable pain Data: Pt alert and oriented x3. Pt reporting high levels of pain throughout shift. Pt mobilizing independently. PICC in right upper arm. Action: Medications given per SEP. PRN pain meds given. IV abx given through PICC in right upper arm. Hourly checks performed. Response: Pt resting in room. Pt continues to report high levels of pain. Pt able to make needs known, call banda within reach. LUCIEN RICE RN 06/14/2024 18:50 * Plan of Care - Gabriel Carter RN - 06/14/2024 0341 EST Problem: Daily Care Plan Goals Goal: Care Plan Documentation Outcome: Ongoing Flowsheets (Taken 06/13/20242030) Area of Focus: Pain/ Comfort Goal This Shift: tolerable pain levels Data: Pt admitted 05/26 for MRSA bacteremia, T10-L2 osteo-discitis w/ epidural abscess w/ c/f narrowing of spinal canal. A/Ox3, VSS on RA. Independent in room. Voiding. Rating pain 8/10 this shift. Action: Administered meds per SEP. Clustered care to promote rest, hourly rounding completed. Response: Pt resting in bed with call banda and personal items in reach at this time. Able to make needs known. States pain decreases to 6/10 at best w/ medication, able to sleep this shift. GABRIEL CARTER RN 06/14/2024 3:41 * Plan of Care - Ginny Ness RN - 06/13/2024 0332 EST Problem: Daily Care Plan Goals Goal: Care Plan Documentation Outcome: Ongoing Flowsheets (Taken 06/12/20242027) Area of Focus: Pain/ Comfort Goal This Shift: Pt will report tolerable pain during this shift. Data: HD#18 for MRSA bacteremia and T10-L2 osteo-discitis with epidural abscess with c/f narrowing of spinal canal. A+Ox3, VSS on RA, ambulates independently in room, voiding and reporting daily Bms.Rating pain 7-8/10 during this shift. Action: Scheduled and PRN Meds given as ordered. Therapeutic communication provided. Hourly rounding completed by RN. Clustered care to promote rest. Response: Patient resting comfortably in bed at this time, RR WNL. Call banda in reach and able to make needs known. GINNY NESS RN 06/13/2024 3:32 * Plan of Care - Tristan Schwarz RN - 06/12/2024 1351 EST Problem: Daily Care Plan Goals Goal: Care Plan Documentation Outcome: Met This Shift Flowsheets Taken 06/12/2024 1346 Area of Focus: Pain/ Comfort Taken 06/12/2024 0956 Goal This Shift: Pt will report tolerable pain levels Note: Data: Pt hospital day #17 with MRSA bacteremia, T10-L2 osteo-discitis w epidural abscess with c/f narrowing of spinal canal. Rating pain @ 10/10 this morning. Neuro checks intact. No c/o numbness of tingling. VSS. Ambulating independently in room and on unit. Voiding. Last bm on 06/11 per pt. Action: Administered scheduled and prn medications (see MAR). Other non- pharmacological pain interventions include: distraction and rest. Response: Pt states pain is well controlled @ 6/10. Will continue to monitor and assist. TRISTAN SCHWARZ RN 06/12/2024 13:47 * Plan of Care - Tracie Nelson RN - 06/12/2024 0500 EST Problem: Daily Care Plan Goals Goal: Care Plan Documentation Outcome: Met This Shift Flowsheets (Taken 06/11/2024 1900) Area of Focus: Sleep Goal This Shift: pt will get adequate sleep Data: Assumed care of pt at 1900. Pt rating pain up to 10/10. Calm and cooperative. Ambulating independently in room, room air, Voiding, daily BM's. Action: Administered scheduled and prn medications per MAR. Hourly rounding completed, clustered care to promote rest. Response: Pt currently resting in bed, RR WNL, call banda is in reach. TRACIE NELSON RN 06/12/2024 5:00 * Plan of Care - Tristan Schwarz RN - 06/11/2024 1809 EST Problem: Daily Care Plan Goals Goal: Care Plan Documentation Outcome: Met This Shift Flowsheets Taken 06/11/2024 1807 by Tristan Schwarz RN Area of Focus: Pain/ Comfort Taken 06/10/20241999 by Vangie Gunderson RN Goal This Shift: Pt will reporst pain as tolerable this shift Note: Data: No acute events. Pt rating pain up to 10/10 in back. Calm and cooperative throughout shift. Ambulating independently in room and on unit. Voiding. Daily bm's. Action: Administered scheduled and prn medications (see MAR). Other non- pharmacological pain interventions include: distraction and rest. Response: Pt sleeping on and off throughout shift. States pain is tolerable @ 8/10. Will continue to monitor and assist. TRISTAN SCHWARZ RN 06/11/2024 18:07 * Plan of Care - Renetta Jenkins RN - 06/10/2024 1807 EST Problem: Daily Care Plan Goals Goal: Care Plan Documentation Outcome: Ongoing Flowsheets (Taken 06/10/2024 1200) Area of Focus: Pain/ Comfort Goal This Shift: pt will report tolerable pain Data: HD#15. D/t C3, C4, T10-11, L1-L2 osteomyelitis discitis, MRSA bacteremia. A&O x3. Voiding. Independent . Rating pain between 5-9/10 to lower back. Action: All prn and schedule medication given per eMAR. Hourly rounding complete. Response: Pt is resting comfortably in bed with family at bed side. Call banda with reach. RENETTA JENKINS RN 06/10/2024 18:07 * Plan of Care - Kiya Thao RN - 06/09/2024 1401 EST Problem: Daily Care Plan Goals Goal: Care Plan Documentation Flowsheets Taken 06/09/2024 1400 Area of Focus: Pain/ Comfort Taken 06/09/2024 0933 Goal This Shift: Patient will have adequate pain control this shift D: Assumed care at 0700. Admitted MRSA Bacteremia. A&Ox3. VSS on RA. Continent 2x. Independent in room. Pain 9/10. A: Administered meds per MAR. Cluster care to promote rest. Hourly rounding complete. R: Pt resting in bed. 6/10 pain. Able to make needs known, call light within reach. * Plan of Care - Emely De La Rosa RN - 06/08/2024 1634 EST Data: HD #13 MRSA bacteremia, T10-L2 osteo-discitis. Rating pain up to 10/10 to lower back this shift. Independent in room. Action: Scheduled and prn medications given, per MAR. Hourly rounding. Response: Asleep on rounds after giving x1 dose PO ativan. EMELY DE LA ROSA RN 06/08/2024 16:34 * Plan of Care - Chelle Noel RN - 06/08/2024 0435 EST Data: Assumed care at 1900. Patient reports one BM today and is voiding regularly. Patient states his pain is improved, he has required less PO overnight compared to the previous night. Action: Patient ambulating independently, repositions himself. Response: Patient reports he has slept well overnight and his pain has been controlled this shift. CHELEL NOEL RN 06/08/2024 4:35 * Plan of Care - Dayanara Murphy RN - 06/07/2024 1426 EST Problem: Daily Care Plan Goals Goal: Care Plan Documentation Flowsheets (Taken 06/07/2024 1020) Area of Focus: Pain/ Comfort Goal This Shift: Pt will have tolerable pain Data: Pt admitted 05/26 for MRSA Bacteremia and T10-L2 osteo-discitis w epidural abscess with c/f narrowing of spinal canal. Rating pain up to 9/10 on numeric scale this shift. Pt independent in room. Action: PRN and scheduled pain meds given per eMAR. Care clustered to promote rest. IV abx administered as ordered. Response: Pt reports pain is more tolerable after pain med administration. Hourly rounds completed.Call banda in reach. DAYANARA MURPHY RN 06/07/2024 14:26 * Plan of Care - Chelle Noel RN - 06/07/2024 0437 EST Data: Assumed care at 1900. Patient reporting pain throughout this shift, PO dilaudid and IV toradol given. Patient reports significant relief from toradol. Patient reports one BM today, states he isvoiding. Action: IV antibiotics and pain medications given per SEP. Response: Patient reports overall better pain control and intermittent sleep tonight. CHELLE NOEL RN 06/07/2024 4:38 * Plan of Care - Cleo Babcock RN - 06/06/2024 1305 EST Problem: Daily Care Plan Goals Goal: Care Plan Documentation Outcome: Ongoing Flowsheets (Taken 06/06/2024 1305) Area of Focus: Pain/ Comfort Data: Pt is A&Ox3, admitted 05/26/24 with T10-11,L1-2 osteo-discitis/ MRSA bacteremia, rated back pain 8-10/10 this shift, independent in room, voiding, BM yesterday per pt Action: Medicated pt for pain with scheduled and prn pain medications per Sep, Toradol order received & given to pt, and pt received scheduled IV abx Response: Pt is sleeping at this moment, call banda within reach CLEO BABCOCK RN 06/06/2024 13:06 * Plan of Care - Reji Aviles RN - 06/06/2024 0657 EST Problem: Daily Care Plan Goals Goal: Care Plan Documentation Flowsheets (Taken 06/06/2024 0000) Area of Focus: Sleep Goal This Shift: promote rest Note: Data & Action: Assumed care of Marcos at 2300. Marcos independent in room with ADLs and ambulation. Rating pain 10/10 at one point in the night. Medicted (see MAR). Clustered care to promote rest. Response: Pain well controlled with meds. Callbell at bedside able to make needs known. REJI AVILES RN 06/06/2024 6:56 * Plan of Care - Angelic Reynaga RN - 06/05/2024 2254 EST Problem: Daily Care Plan Goals Goal: Care Plan Documentation Flowsheets (Taken 06/05/2024 1536) Area of Focus: Sleep Goal This Shift: pt to rest this shift Note: Pt sleeping between cares. BP 113/73 (BP Cuff Location: Right arm, BP Patient Position: Supine) Pulse 86 Temp 36.9 ??C (98.4 ??F) (Oral) Resp 14 Ht 175.3 cm (69) Wt 87.4 kg (192 lb 9.6 oz) SpO2 95% BMI 28.44 kg/m?? Data: HD#11 s/p MRSA bacteremia and T10-L2 osteo-discitis w epidural abscess with c/f narrowing of spinal canal. A&Ox4. Up indep to BR. Rates pain 8-10/10. On suboxone. Declined dinner this evening. Action: Pt medicated per MAR. Pt repositions self per comfort. Hourly rounding completed. Care clustered to promote rest. Response: Pt resting in bed. Call light within reach. Able to make needs known. Cont with POC. * Plan of Care - Marleen Booker RN - 06/05/2024 0828 EST Problem: Daily Care Plan Goals Goal: Care Plan Documentation Flowsheets (Taken 06/05/2024 0754) Area of Focus: Pain/ Comfort Goal This Shift: tolerable pain Note: Data: AOx3, HOD 10 admit for T10-11, L1-L2 osteomyelitis discitis, MRSA bacteremia , IND in room, pt reports voideing and having BMs/flatus regularly. the patient repoted 10/10 pain this shift. Action: pt repositioned self regularly, hourly rounding, pain treated with medication-see MAR Response: ambulation tolerated well, pain remained tolerable. WCTM MARLEEN BOOKER RN 06/05/2024 8:28 * Plan of Care - Gabriel Shah RN - 06/05/2024 0553 EST Problem: Daily Care Plan Goals Goal: Care Plan Documentation Outcome: Ongoing Flowsheets (Taken 06/05/2024 0224) Area of Focus: Pain/ Comfort Data: Patient admitted d/t T10-11, L1-L2 osteomyelitis discitis, MRSA bacteremia. Patient A&Ox3, on RA. Independent in room. BM on 06/04. Rates back pain as 10/10. Voiding in bathroom. Action: Meds per SEP. Clustered care to promote rest. Response: Patient resting in bed. Can make needs known. GABRIEL SHAH RN 06/05/2024 2:24 * Plan of Care - Rochelle Nath RN - 06/04/2024 1202 EST Problem: Daily Care Plan Goals Goal: Care Plan Documentation Outcome: Ongoing Flowsheets (Taken 06/04/2024 0939) Area of Focus: Pain/ Comfort Goal This Shift: pt pain will be well managed Data: pt admitted w/ +MRSA bacteremia and T10-L2 osteo-discitis and epidural abscess. Pt A/Ox3, +CSMTs, reports 7/10 pain consistently, pain located in lower left side of the back. Action: medicated pt for pain (see eMAR), IV atbx administered as ordered. Clustered care to promote rest. Response: pt pain adequately managed w/ current regimen, seen often napping in room--reports not sleeping well prior night. Pt independent in room, able to make needs known, call solo in reach, [facility]. ROCHELLE NATH RN 06/04/2024 12:02 * Plan of Care - Chelle Noel RN - 06/04/2024 0331 EST Data: Assumed care at 1900. Patient completed MRI at 2100, he stated pain was 10/10 after imaging due to having to lay flat on his back. He received a one time dose of IV dilaudid pre-med for the scan as well as prn flexeril and ibuprofen. Patient states his pain has been much worse the last 24 hours and is using his prn dilaudid often. Vitals stable on room air. Patient reports he is voiding andhaving regular BM's. Action: Medicated per SEP. IV abx given. Response: Patient was able to finally fall asleep around 0130 this morning. He has otherwise reported pain to be 8-10 throughout my shift. CHELLE NOEL RN 06/04/2024 3:32 * Plan of Care - Marleen Booker RN - 06/03/2024 1127 EST Problem: Daily Care Plan Goals Goal: Care Plan Documentation Flowsheets (Taken 06/03/2024 0920) Area of Focus: Pain/ Comfort Goal This Shift: tolerable pain Note: Data: AOx3, HOD 8 admit for T10-11, L1-L2 osteomyelitis discitis, MRSA bacteremia , IND in room, ptreports voideing and having BMs/flatus regularly. Back and abdominal pain/distention noted this shift-MD/Team aware. Action: pt repositioned self regularly, hourly rounding, pain treated with medication-see MAR Response: ambulation tolerated well, pain remained tolerable. [facility] MARLEEN BOOKER RN 06/03/2024 11:27 * Plan of Care - Chelle Noel RN - 06/03/2024 0347 EST Data: Assumed care at 2300. Patient reports significant pain overnight, but states the pain medications do help. Patient is ambulating independently, reports regular bowel movements and voiding. Action: Medicated per SEP. Response: Patient reports intermittent sleep overnight but states his pain does keep him awake at times. CHELLE NOEL RN 06/03/2024 3:47 * Plan of Care - Ann Marie Brice RN - 06/02/2024 1810 EST Problem: Daily Care Plan Goals Goal: Care Plan Documentation Outcome: Ongoing Flowsheets (Taken 06/02/2024 1157 by Veto Chino RN) Area of Focus: Pain/ Comfort Goal This Shift: pt will have tolerable pain level this shift Data: Pt admitted 05/26 for MRSA bacteremia, T10-L2 osteo-discitis with epidural abscess and narrowing of spinal canal, non-op. A&O x3, rating pain up to 9/10. Stable vitals on RA. No numbness or tingling. Pt reports occasional dizziness/falling feeling. Independent in room. Voiding, BM 06/01.Pt here for pain control and IV abx (not eligible for PICC). Action: Administered scheduled and prn meds per eMAR, IV abx. Pain reassessments. Educated pt on new off unit order. Encouraged time oob. Hourly rounding, clustered care to promote independence. Response: Pt stated pain was controlled after med intervention. Ambulating in room well. Continues to mention dizziness throughout shift, pt makes nursing aware. Pt resting in bed, makes needs known,call light in reach. ANN MARIE BRICE RN 06/02/2024 18:11 * Plan of Care - Meagan Guevara RN - 06/02/2024 0210 EST Problem: Daily Care Plan Goals Goal: Care Plan Documentation Outcome: Ongoing Flowsheets (Taken 06/01/2024 2313) Area of Focus: Pain/ Comfort Goal This Shift: Pt will report tolerable pain levels Data: Assumed care of Marcos at 2300. Marcos ambulating to bathroom, endorsing no needs at this time. Action: Medications given per eMAR including pain meds + scheduled pain meds and IV antibx. Hourly rounding completed, clustered care to promote rest. Response: Marcos was able to sleep this shift and reporting pain as better than its been. Marcos resting in bed w/call banda in reach, able to make needs known. MEAGAN GUEVARA RN 06/02/2024 2:12 * Plan of Care - Cleo Babcock RN - 06/01/20241925 EST Problem: Daily Care Plan Goals Goal: Care Plan Documentation Outcome: Ongoing Flowsheets (Taken 06/01/20241925) Area of Focus: Pain/ Comfort Data: Pt is A&Ox3, admitted 05/26/24 with T10-11,L1-2 osteo-discitis/ MRSA bacteremia, rated back pain 6-9/10 this shift, independent in room, voiding, BM today per pt Action: Medicated pt for pain per Mar & promoted rest Response: Pt is relaxing in bed at this moment, call banda within reach CLEO BABCOCK RN 06/01/2024 19:26 * Plan of Care - Lucien Cornell RN - 06/01/2024 1454 EST Problem: Daily Care Plan Goals Goal: Care Plan Documentation Flowsheets (Taken 06/01/2024 1032) Area of Focus: Pain/ Comfort Goal This Shift: pt will have adequate pain control this shift Data: Assumed care of pt at 0700. Pt is HD#6 T10-11, L1-L2 osteomyelitis discitis and MRSA bacteremia. Pt is A&Ox3. Independent in the room. Voiding in urinal, BM's in BR. Pt had 1 BM this shift.Rating pain 7/10 this AM. Action: Hourly rounding checks completed. Medications administered per eMAR. Dilaudid 6mg administered x2. Flexeril administered x1. Response: Pt currently reporting pain /10. Pt states the dilaudid has been helping in relieving the pain. Able to receive some rest this shift. Tolerated IV ABX well. Currently resting in bed, RR WNL. Call banda within reach. Pt able to make needs known. LUCIEN CORNELL RN 06/01/2024 14:54 * Plan of Care - Adamaris Christie - 06/01/2024 1248 EST Data: Pt admitted on 05/26 w/ dx of MRSA bacteremia and T10-L2 osteodiscitis with an epidural abscess. VSS on RA, ambulates independently in room, voiding and continent, A&Ox3, PIV in LUE, and rating pain up to 9/10 this shift. Action: Hourly rounding, meds administered per the eMAR, assistance with ADLs offered. Response: Pt resting comfortably in bed, RR WNL, with call banda in reach and bed locked in lowest position. Pt remains free from falls this shift and is able to make needs known. Adamaris Christie 06/01/2024 12:48 Cosigned by Dari Victor RN at 06/01/2024 13:12 EST * Plan of Care - Meagan Guevara RN - 06/01/2024 0521 EST Problem: Daily Care Plan Goals Goal: Care Plan Documentation Outcome: Ongoing Flowsheets (Taken 05/31/2024 2308) Area of Focus: Pain/ Comfort Goal This Shift: Pt will report tolerable pain levels Data: Assumed care of Marcos at 2300. Marcos asleep, RR WNL. Action: Medications given per eMAR including scheduled + PRN pain meds and IV antibx. Formed plan for overnight pain management. Hourly rounding completed, clustered care to promote rest. Response: Marcos was able to sleep this shift. Marcos continues to rate pain 7- 10/10 with some relief after PRNs. Marcos is resting in bed w/call banda in reach, able to make needs known. MEAGAN GUEVARA RN 06/01/2024 5:21 * Plan of Care - Emely De La Rosa RN - 05/31/2024 1617 EST Data: HD #5 T10-11,L1-2 osteo-discitis, MRSA bacteremia. Reporting pain to back 02/25. IV abx. Independent in room. Action: Scheduled and prn medications given, per MAR. Response: Pt reporting some pain relief, ambulating in room. EMELY DE LA ROSA RN 05/31/2024 16:17 * Plan of Care - Cleo Babcock RN - 05/31/2024 0239 EST Problem: Daily Care Plan Goals Goal: Care Plan Documentation Outcome: Ongoing Flowsheets (Taken 05/31/2024 0239) Area of Focus: Sleep Data: Assumed care of pt at 2300, pt A&Ox3, independently getting oob/back to bed, rated back pain 01/25 @0030 Action: Medicated pt for pain per Sep & promoted sleep Response: Pt is sleeping at this moment, call banda within reach CLEO BABCOCK RN 05/31/2024 2:39 * Plan of Care - Meagan Guevara RN - 05/30/2024 2303 EST Problem: Daily Care Plan Goals Goal: Care Plan Documentation Outcome: Ongoing Flowsheets (Taken 05/30/2024 1908) Area of Focus: Pain/ Comfort Goal This Shift: Pt will report tolerable pain levels Data: Assumed care of Marcos at 1900. Marcos resting in bed endorsing no needs at this time. Action: Medications given per eMAR including scheduled and PRN pain meds. Formed a plan for overnight pain meds. Hourly rounding completed, clustered care to promote rest/ Response: Marcos continues to endorse pain somewhat improved by PRN pain meds. Marcos resting in bed w/call banda in reach, able to make needs known. MEAGAN GUEVARA RN 05/30/2024 23:03 * Plan of Care - Artie Bejarano RN - 05/30/2024 1818 EST Problem: Daily Care Plan Goals Goal: Care Plan Documentation Outcome: Met This Shift Flowsheets (Taken 05/30/2024 0854) Area of Focus: Pain/ Comfort Goal This Shift: pt will report tolerable pain Note: Data: pt c/o 7/10 pain in back and LLE. Action: administered scheduled meds as well as PRN PO dilaudid (See MAR). Response: pt reports decrease in pain to 3-4/10 and states that's tolerable for him. WCTM & re-assess pain. ARTIE BEJARANO RN 05/30/2024 18:17 * Plan of Care - Cleo Babcock RN - 05/30/2024 0423 EST Problem: Daily Care Plan Goals Goal: Care Plan Documentation Outcome: Ongoing Flowsheets (Taken 05/30/2024 0423) Area of Focus: Pain/ Comfort Data: Pt is A&Ox3, admitted 05/26/24 with back pain, now with a principal diagnosis of MRSA bacteremia and T10-L2 osteo-discitis w epidural abscess, pt on IV abx, rated back pain 10/10 at the start of shift, is independent in room, voiding, BM yesterday, contact precaution for MRSA, goal to manage pain, and have adequate sleep throughout the night Action: Medicated pt with scheduled & prn pain medication per Mar, hourly rounds performed, andpromoted sleep Response: Pt slept on and off throughout the shift, pain 5-6/10 after medication, relaxing in bed at this moment, call banda within reach CLEO BABCOCK RN 05/30/2024 4:23 * Plan of Care - Ana Clark RN - 05/29/2024 0902 EST Patient is positive for MRSA (click on Inf: MRSA in banner for details). Please maintain contact precautions for duration of admission. Patient may be cohorted with another MRSA positive patient ifotherwise appropriate. Please call IP with questions [phone]. * Plan of Care - Sakina Zuleta RN - 05/29/2024 0559 EST Problem: Daily Care Plan Goals Goal: Care Plan Documentation Outcome: Ongoing Flowsheets (Taken 05/28/2024 2132) Area of Focus: Pain/ Comfort Goal This Shift: Pt will be comfortable this shift Data: Assumed care at 1900. Pt admitted from ED as transfer from [facility] with +Blood Cultures and epidural abscess from T10-L2. Pt is A&Ox3, VS stable on RA. Independent in room. Voiding, pt reporting BM yesterday. Abdomen still distended and firm. Pain around 8/10 this shift. NPO since 0000 for scheduled ECHO. Action: Administered scheduled and PRN medication per MAR. Hourly Rounding performed. Clustered care to promote rest. Response: Pain still high around 9/10 after breakthrough administration. Pt hoping pain settles. Call light within reach. Reporting that tylenol is not helpful. SAKINA ZULETA RN 05/28/2024 5:59 * Plan of Care - Tong Qureshi RN - 05/28/2024 1440 EST Problem: Daily Care Plan Goals Goal: Care Plan Documentation Outcome: Ongoing Flowsheets (Taken 05/28/2024 1106) Area of Focus: Pain/ Comfort Goal This Shift: tolerable level Note: Data: HD #2, epidural abscess from T10-L2. A&Ox3, VSS on RA. Independent in room. Voiding, no BM this shift. Rates pain 10/10. Action: Medicated per MAR, PRNs utilized. Offered emotional support. Clustered care to promote rest. Response: Pt currently sleeping w RR WDL. Able to express needs, call banda w/in reach. Pt reports 6/10 pain at best. TONG QURESHI RN 05/28/2024 14:44 * Plan of Care - Sakina Zuleta RN - 05/28/2024 0137 EST Problem: Daily Care Plan Goals Goal: Care Plan Documentation Outcome: Ongoing Flowsheets (Taken 05/27/2024 2114) Area of Focus: Pain/ Comfort Goal This Shift: Pt will be comfortable this shift Data: Assumed care at 1900. Pt admitted from ED as transfer from [facility] with +Blood Cultures and epidural abscess from T10-L2. Pt is A&Ox3, VS stable on RA. Independent in room. Voiding, pt reporting BM at the start of shift. Abdomen still distended-patient reports bloating but feels slightly better. Pain around 8/10 this shift with increasing in pain overnight. Action: Administered scheduled and PRN medication per SEP. Hourly Rounding performed. Clustered care to promote rest. Response: Pt pain seems more well controlled with PO dilaudid increase. Pt stating that he wants todecrease his Suboxone dose-MD aware. Pt currently resting in bed, call light within reach. Pt is able to make needs known. SAKINA ZULETA RN 05/27/2024 1:37 * Plan of Care - Artie Bejarano RN - 05/27/2024 1111 EST Problem: Daily Care Plan Goals Goal: Care Plan Documentation Outcome: Ongoing Flowsheets (Taken 05/27/2024 0900) Area of Focus: Pain/ Comfort Goal This Shift: pt will report tolerable pain Note: Data: pt c/o 10/10 left sided back pain. On suboxone. Received IV toradol overnight that dramatically improved pain. Action: notified Eileen PEREZ about pain. New orders for ibuprofen, gabapentin & PO dilaudid - given per eMAR. Response: pt continues to c/o 10/10 pain, getting increasingly agitated & restless. Pt requesting more IV meds or something that actually works. MD aware. Pt was able to eventually get some rest and pain relief this afternoon. Will re-assess when awake and adjust interventions as needed. ARTIE BEJARANO RN 05/27/2024 11:08 * Plan of Care - Sakina Zuleta RN - 05/27/2024 0553 EST Problem: Daily Care Plan Goals Goal: Care Plan Documentation Outcome: Not Met This Shift Flowsheets (Taken 05/26/20242125) Area of Focus: GI//Elimination Goal This Shift: Pt will have BM this shift Data: Assumed care at 1900. Pt admitted from ED as transfer from [facility] with +Blood Cultures and epidural abscess from T10-L2. Pt is A&Ox3, VS stable on RA. Independent in room. Voiding, No BM this shift. Pt reporting last BM was 6 days ago. Has been having increasing pain overnight in epigastric area, refusing suppository, provider aware. Pt complaining of 10/10 pain overnight withback. Action: Administered scheduled and PRN medication per SEP. Hourly Rounding performed. Clustered care to promote rest. Educated further on importance of Bowel regimen. Response: Pt still refusing bowel suppository. Back pain has diminished now 3/10. Pt currently in bed, call light within reach. Pt is able to make needs known. SAKINA ZULETA RN 2024 5:53 * Plan of Care - Lizzie Wells RN - 2024 1930 EST Oriented to MR6/call banda, admission questions completed, admission assessment completed. Meds per eMAR. Initially pain 10/10 to back, notified . Tradolol x1 administered per eMAR. Pain now 3/10. Last BM 05/20, epigastric tenderness and not passing flatus. Pt reports miralax given in ED and wants to try to have a BM before suppository. MD Lara notified. Educated pt and pt agreeable to try suppository tonight with nighttime RN if no BM. * Plan of Care - He Benites MD - 2024 1657 EST PVR [id number] documented in this encounter Plan of Treatment Scheduled Orders Name Type Priority Associated Diagnoses Order Schedule CK Lab Routine Weekly (Non Specified- period) - USED for LTC until discontinued starting 06/01/2024, 5 completed HEPATIC FUNCTION PANEL (ALB,ALK PHOS,ALT,AST,DBIL,TO T STEPHANY,TOT PROT) Lab Routine Weekly (Non Specified- period) - USED for LTC until discontinued starting 06/01/2024, 5 completed BASIC METABOLIC PANEL (BMP) Lab Routine Every Mo,Th unti l discontinued starting 06/05/2024, 8 completed COMPLETE BLOOD COUNT Lab Routine Ever y Shannan until discontinued starting 06/15/2024, 3 completed POCT GLUCOSE, INTERFACED Point of Care Testing Routine As Needed until discontinued starting 06/26/2024 POCT GLUCOSE, INTERFACED Point of Care Testing Routine 4X Daily (AC & HS) until discontinued starting 06/26/2024, 23 completed documented as of this encounter Procedures Procedure [...] POCT GLUCOSE, INTERFACED Routine 06/29/2024 10:20 EST CK Routine 06/29/2024 6:25 EST HEPATIC FUNCTION PANEL (ALB,ALK PHOS,ALT,AST,DBIL,TOT STEPHANY,TOT PROT) Routine 06/29/2024 6:25 EST BASIC METABOLIC PANEL (BMP) Routine 06/29/2024 6:25 EST POCT GLUCOSE, INTERFACED [...] COMPLETE BLOOD COUNT Routine 06/22/2024 10:20 EST CK Routine 06/22/2024 10:20 EST HEPATIC FUNCTION PANEL (ALB,ALK PHOS,ALT,AST,DBIL,TOT STEPHANY,TOT PROT) Routine 06/22/2024 10:20 EST BASIC METABOLIC PANEL (BMP) Routine 06/22/2024 10:20 EST BASIC METABOLIC PANEL (BMP) Routine 06/19/2024 3:09 EST COMPLETE BLOOD COUNT Routine 06/18/2024 11:51 EST C REACTIVE PROTEIN Routine 06/18/2024 11 :51 EST COMPREHENSIVE METABOLIC PANEL (CMP) Routine 06/18/2024 11:51 EST COMPLETE BLOOD COUNT Routine 06/15/2024 6:54 EST CK Routine 06/15/2024 6:54 EST HEPATIC FUNCTION PANEL (ALB,ALK PHOS,ALT,AST,DBIL,TOT STEPHANY,TOT PROT) Routine 06/15/2024 6:54 EST BASIC METABOLIC PANEL (BMP) Routine 06/15/2024 6:54 EST INSERT PICC LINE Routine 06/13/2024 19:0 4 EST BASIC METABOLIC PANEL (BMP) Routine 06/12/2024 6:11 EST COMPLETE BLOOD COUNT Routine 06/11/2024 6:51 EST CK Routine 06/11/2024 6:51 EST HEPATIC FUNCTION PANEL (ALB,ALK PHOS,ALT,AST,DBIL,TOT STEPHANY,TOT PROT) Routine 06/11/2024 6:51 EST BASIC METABOLIC PANEL (BMP) Routine 06/11/2024 6:51 EST COMPLETE BLOOD COUNT Routine 06/08/2024 16:37 EST BACTERIAL CULTURE, BLOOD Routine 06/08/2024 15:09 EST CK Routine 06/08/2024 15:08 EST HEPATIC FUNCTION PANEL (ALB,ALK PHOS,ALT,AST,DBIL,TOT STEPHANY,TOT PROT) Routine 06/08/2024 15:08 EST BASIC METABOLIC PANEL (BMP) Routine 06/08/2024 15:08 EST BACTERIAL CULTURE, BLOOD Routine 06/08/2024 7:[address] ABDOMEN PELVIS W CONTRAST Routine 06/05/2024 13:17 EST BACTERIAL CULTURE, BLOOD Routine 06/05/2024 9:41 EST BACTERIAL CULTURE, BLOOD Routine 06/05/2024 9:41 EST COMPLETE BLOOD COUNT Routine 06/05/2024 9:41 EST BASIC METABOLIC PANEL (BMP) Routine 06/05/2024 9:41 EST ECG REPORT - SCANNED 06/05/2024 8:24 EST BACTERIAL CULTURE, BLOOD Routine 06/04/2024 11:44 EST BACTERIAL CULTURE, BLOOD Routine 06/04/2024 11:44 EST MR THORACIC SPINE W WO CONTRAST Routine 06/03/2024 21:13 EST BACTERIAL CULTURE, BLOOD Routine 06/03/2024 8:29 EST BACTERIAL CULTURE, BLOOD Routine 06/03/2024 8:28 EST COMPLETE BLOOD COUNT Routine 06/03/2024 8:28 EST BASIC METABOLIC PANEL (BMP) Routine 06/03/2024 8:28 EST BACTERIAL CULTURE, BLOOD Routine 06/01/2024 8:00 EST BACTERIAL CULTURE, BLOOD Routine 06/01/2024 8:00 EST CK Routine 06/01/2024 8:00 EST HEPATIC FUNCTION PANEL (ALB,ALK PHOS,ALT,AST,DBIL,TOT STEPHANY,TOT PROT) Routine 06/01/2024 8:00 EST TRANSFERRIN SATURATION Add-On 8:13 EST PROFILE IRON STUDIES (INCLUDES IRON, IBC, AND FERRITIN) Add-On 05/31/2024 8:13 EST COMPLETE BLOOD COUNT Routine 05/31/2024 8:13 EST MAGNESIUM Routine 05/31/2024 8:13 EST FERRITIN Add-On 05/31/2024 8:13 EST BASIC METABOLIC PANEL (BMP) Routine 05/31/2024 8:13 EST BACTERIAL CULTURE, BLOOD Routine 05/30/2024 14:10 EST BACTERIAL CULTURE, BLOOD Routine 05/30/2024 14:05 EST TRANSFERRIN SATURATION Add-On 7:34 EST PROFILE IRON STUDIES (INCLUDES IRON, IBC, AND FERRITIN) Add-On 05/30/2024 7:34 EST COMPLETE BLOOD COUNT Routine 05/30/2024 7:34 EST MAGNESIUM Routine 05/30/2024 7:34 EST FERRITIN Add-On 05/30/2024 7:34 EST BASIC METABOLIC PANEL (BMP) Routine 05/30/2024 7:34 EST MARIBEL 05/29/2024 21:00 EST MRSA bacteremia TRANSESOPHAGEAL ECHO (MARIBEL) COMPLETE NO CONTRAST STAT 05/29/2024 14:00 EST BACTERIAL CULTURE, BLOOD STAT 05/29/2024 12:17 EST BACTERIAL CULTURE, BLOOD STAT 05/29/2024 12:16 EST COMPLETE BLOOD COUNT Routine 05/29/2024 12:16 EST MAGNESIUM Routine 05/29/2024 12:16 EST BASIC METABOLIC PANEL (BMP) Routine 05/29/2024 12:16 EST HIV 1 RNA QUANTITATION Routine 13:26 EST XR ENTIRE SPINE 2-3 VIEWS Routine 05/28/2024 8:[address] CHEST W CONTRAST Routine 05/28/2024 8 :[address] ABDOMEN PELVIS W CONTRAST Routine 05/28/2024 8:33 EST COMPLETE BLOOD COUNT Routine 05/28/2024 6:54 EST MAGNESIUM Routine 05/28/2024 6:54 EST CK Add-On 05/28/2024 6:54 EST HEPATIC FUNCTION PANEL (ALB,ALK PHOS,ALT,AST,DBIL,TOT STEPHANY,TOT PROT) Add-On 05/28/2024 6:54 EST BASIC METABOLIC PANEL (BMP) Routine 05/28/2024 6:54 EST BACTERIAL CULTURE, BLOOD Routine 05/27/2024 22:58 EST BACTERIAL CULTURE, BLOOD Routine 05/27/2024 22:04 EST EKG 12-LEAD Routine 05/27/2024 8:31 EST HN LAB CBC SMEAR REVIEW Today 05/27/20 24 7:23 EST COMPLETE BLOOD COUNT Routine 05/27/2024 7:23 EST MAGNESIUM Routine 05/27/2024 7:23 EST HEMOGLOBIN A1C Add-On 05/27/2024 7:23 EST BASIC METABOLIC PANEL (BMP) Routine 05/27/2024 7:23 EST TRANSTHORACIC ECHO (TTE) COMPLETE Routine 2024 15:45 EST BACTERIAL CULTURE, BLOOD STAT 2024 14:34 EST BACTERIAL CULTURE, BLOOD STAT 2024 14:33 EST PROCALCITONIN Routine 2024 14:32 EST SED RATE Routine 2024 14:32 EST COMPLETE BLOOD COUNT AND DIFFERENTIAL STAT 2024 14:32 EST C REACTIVE PROTEIN STAT 2024 14 :32 EST COMPREHENSIVE METABOLIC PANEL (CMP) STAT 2024 14:32 EST POCT US ED GUIDANCE PIV 05/26/20 24 13:05 EST POCT US ED GUIDANCE PIV 05/26/20 24 13:[address] OUTSIDE IMAGES ABDOMEN PELVIS STAT 05/24/2024 9:24 EST XR OUTSIDE IMAGES CHEST STAT 05/24/20 9:23 EST documented in this encounter Results * (ABNORMAL) POCT GLUCOSE, INTERFACED (07/02/2024 7:31 EST) Glucose, POC 132(H) 70 - 100 mg/dL 07/02/2024 7:33 EST [facility] HN LAB POC COMMENT (GLUCOSE) Test Performed by Nursing Services 07/02/2024 7:33 EST [facility] Blood CAPILLARY BLOOD / Unknown 07/02/2024 7:31 EST 07/02/2024 7:33 EST us Virginia Downey MD MPH POINT OF CARE TEST ORD ERABLES Final Result [facility] [address] [place] [id number] * (ABNORMAL) POCT GLUCOSE, INTERFACED (07/01/2024 21:55 EST) Glucose, POC 139(H) 70 - 100 mg/dL 07/01/2024 21:56 EST [facility] HN LAB POC COMMENT (GLUCOSE) Test Performed by Nursing Services 07/01/2024 21:56 EST [facility] Blood CAPILLARY BLOOD / Unknown 07/01/2024 21:55 EST 07/01/2024 21:56 EST Virginia Downey MD MPH POINT OF CARE TEST ORD ERABLES Final Result Performing Organization Address City/[facility]/ZIP Co de Phone Number [facility] [address] [place] [address] * (ABNORMAL) POCT GLUCOSE, INTERFACED (07/01/2024 18:41 EST) Glucose, POC 182(H) 70 - 100 mg/dL 07/01/2024 18:42 EST [facility] HN LAB POC COMMENT (GLUCOSE) Test Performed by Nursing Services 07/01/2024 18:42 EST [facility] Blood CAPILLARY BLOOD / Unknown 07/01/2024 18:41 EST 07/01/2024 18:42 EST Virginia Downey MD MPH POINT OF CARE TEST ORD ERABLES Final Result Performing Organization Address [facility] Co de Phone Number [facility] [address] [place] [address] * POCT GLUCOSE, INTERFACED (07/01/2024 11:34 EST) Glucose, POC 98 70 - 100 mg/dL 07/01/2024 11:35 EST [facility] HN LAB POC COMMENT (GLUCOSE) Test Performed by Nursing Services 07/01/2024 11:35 EST [facility] Blood CAPILLARY BLOOD / Unknown 07/01/2024 11:34 EST 07/01/2024 11:35 EST Virginia Downey MD MPH POINT OF CARE TEST ORD ERABLES Final Result Performing Organization Address City/[facility]/ZIP Co de Phone Number [facility] [address] [place] [address] * (ABNORMAL) POCT GLUCOSE, INTERFACED (07/01/2024 8:56 EST) Glucose, POC 150(H) 70 - 100 mg/dL 07/01/2024 8:58 [facility] HN LAB POC COMMENT (GLUCOSE) Test Performed by Nursing Services 07/01/2024 8:58 [facility] Blood CAPILLARY BLOOD / Unknown 07/01/2024 8:56 EST 07/01/2024 8:58 EST Virginia Downey MD MPH POINT OF CARE TEST ORD ERABLES Final Result [facility] [address], [place] [id number] * (ABNORMAL) POCT GLUCOSE, INTERFACED (06/30/2024 21:46 EST) Glucose, POC 115(H) 70 - 100 mg/dL 06/30/2024 21:47 [facility] HN LAB POC COMMENT (GLUCOSE) Test Performed by Nursing Services 06/30/2024 21:47 [facility] Blood CAPILLARY BLOOD / Unknown 06/30/2024 21:46 EST 06/30/2024 21:47 EST Virginia Downey MD MPH POINT OF CARE TEST ORD ERABLES Final Result [facility] [address], [place] [id number] * (ABNORMAL) POCT GLUCOSE, INTERFACED (06/30/2024 19:14 EST) Glucose, POC 128(H) 70 - 100 mg/dL 06/30/2024 19:15 [facility] HN LAB POC COMMENT (GLUCOSE) Test Performed by Nursing Services 06/30/2024 19:15 [facility] Blood CAPILLARY BLOOD / Unknown 06/30/2024 19:14 EST 06/30/2024 19:15 EST Virginia Downey MD MPH POINT OF CARE TEST ORD ERABLES Final Result [facility] [address] [place] [address] * (ABNORMAL) POCT GLUCOSE, INTERFACED (06/30/2024 12:27 EST) Glucose, POC 216(H) 70 - 100 mg/dL 06/30/2024 12:28 EST [facility] HN LAB POC COMMENT (GLUCOSE) Test Performed by Nursing Services 06/30/2024 12:28 EST [facility] Blood CAPILLARY BLOOD / Unknown 06/30/2024 12:27 EST 06/30/2024 12:28 EST Virginia Downey MD MPH POINT OF CARE TEST ORD ERABLES Final Result Performing Organization Address [facility]/ZIP Co de Phone Number [facility] [address] [place] [address] * (ABNORMAL) POCT GLUCOSE, INTERFACED (06/30/2024 7:53 EST) Glucose, POC 113(H) 70 - 100 mg/dL 06/30/2024 7:54 EST [facility] HN LAB POC COMMENT (GLUCOSE) Test Performed by Nursing Services 06/30/2024 7:54 EST [facility] Blood CAPILLARY BLOOD / Unknown 06/30/2024 7:53 EST 06/30/2024 7:54 EST Virginia Downey MD MPH POINT OF CARE TEST ORD ERABLES Final Result Performing Organization Address City/[facility]/ZIP Co de Phone Number [facility] [address] [place] [address] * (ABNORMAL) POCT GLUCOSE, INTERFACED (06/29/2024 19:23 EST) Glucose, POC 152(H) 70 - 100 mg/dL 06/29/2024 19:26 [facility] HN LAB POC COMMENT (GLUCOSE) Test Performed by Nursing Services 06/29/2024 19:26 [facility] Blood CAPILLARY BLOOD / Unknown 06/29/2024 19:23 EST 06/29/2024 19:26 EST Virginia Downey MD MPH POINT OF CARE TEST ORD ERABLES Final Result Performing Organization Address City/[facility]/ZIP Co de Phone Number [facility] [address] [place] [address] * (ABNORMAL) POCT GLUCOSE, INTERFACED (06/29/2024 12:25 EST) Glucose, POC 204(H) 70 - 100 mg/dL 06/29/2024 12:27 [facility] HN LAB POC COMMENT (GLUCOSE) Test Performed by Nursing Services 06/29/2024 12:27 [facility] Blood CAPILLARY BLOOD / Unknown 06/29/2024 12:25 EST 06/29/2024 12:26 EST Virginia Downey MD MPH POINT OF CARE TEST ORD ERABLES Final Result Performing Organization Address City/[facility]/ZIP Co de Phone Number [facility] [address] [place] [address] * (ABNORMAL) COMPLETE BLOOD COUNT (06/29/2024 10:26 EST) WBC 4.56 4.00 - 10.40 K/cmm 06/29/2024 11:02 [facility] RBC 3.99(L) 4.36 - 5.78 M/cmm 06/29/2024 11:02 [facility] Hemoglobin 10.9(L) 13.8 - 17.3 g/dL 06/29/2024 11:02 [facility] HCT 32.0(L) 39.5 - 50.2 % 06/29/2024 11:02 [facility] MCV 80(L) 81 - 95 fL 06/29/2024 11:02 [facility] MCH 27.3(L) 27.6 - 33.0 pg 06/29/2024 11:02 [facility] MCHC 34.1 32.8 - 36.4 g/dL 06/29/2024 11:02 [facility] RDW-CV 15.6(H) <14.2 % 06/29/2024 11:02 [facility] RDW-SD 44.3 <46.0 fl 06/29/2024 11:02 [facility] PLT 222 141 - 377 K/cmm 06/29/2024 11:02 [facility] MPV 9.2(L) 9.5 - 12.7 fL 06/29/2024 11:02 [facility] Blood BLOOD SAMPLE TAKEN FROM CENTRAL LINE / Unknown Venipuncture / Unknown 06/29/2024 10:26 EST 06/29/2024 10:48 EST us Meaghan Zapata MD HEMATOLOGY & PF4 ORDER MENDEZ Final Result [facility] [address] [place] [address] * (ABNORMAL) POCT GLUCOSE, INTERFACED (06/29/2024 10:20 EST) Glucose, POC 173(H) 70 - 100 mg/dL 06/29/2024 10:21 EST [facility] HN LAB POC COMMENT (GLUCOSE) Test Performed by Nursing Services 06/29/2024 10:21 EST [facility] Blood CAPILLARY BLOOD / Unknown 06/29/2024 10:20 EST 06/29/2024 10:21 EST us Virginia Downey MD MPH POINT OF CARE TEST ORD ERABLES Final Result Performing Organization Address City/[facility]/ZIP Co de Phone Number [facility] [address] [place] [address] * (ABNORMAL) BASIC METABOLIC PANEL (BMP) (06/29/2024 6:25 EST) Sodium 139 136 - 145 mmol/L 06/29/2024 7:24 [facility] Potassium 4.6 3.5 - 5.0 mmol/L 06/29/2024 7:24 [facility] Chloride 104 96 - 110 mmol/L 06/29/2024 7:24 [facility] CO2 Total 26 22 - 32 mmol/L 06/29/2024 7:24 [facility] Anion Gap 9 5 - 14 mmol/L 06/29/2024 7:24 [facility] Glucose 220(H) 70 - 99 mg/dl 06/29/2024 7:24 [facility] Calcium 9.3 8.5 - 10.5 mg/dL 06/29/2024 7:24 [facility] BUN 26 10 - 26 mg/dL 06/29/2024 7:24 [facility] Creatinine 0.92 0.66 - 1.25 mg/dL 06/29/2024 7:24 [facility] eGFR 105 >60 mL/min/1.73 m2 06/29/2024 7:24 [facility] Blood BLOOD SAMPLE TAKEN FROM CENTRAL LINE / Unknown PICC Line Draw / Unknown 06/29/2024 6:25 EST 06/29/2024 6:31 EST us Virginia Downey MD MPH CHEMISTRY & BLOOD GAS ORDERABLES Final Result Performing Organization Address City/[facility]/ZIP Co de Phone Number [facility] [address] [place] [address] * (ABNORMAL) HEPATIC FUNCTION PANEL (ALB,ALK PHOS,ALT,AST,DBIL,TOT STEPHANY,TOT PROT) (06/29/2024 6:25 EST) Total Protein 7.7 6.3 - 8.2 g/dL 06/29/2024 7:24 [facility] Albumin 3.6 3.4 - 4.9 g/dL 06/29/2024 7:24 [facility] Bilirubin, Total <0.5 <1.4 mg/dL 06/29/20 7:24 [facility] Conjugated Bilirubin 0.0 <=0.3 mg/dL 06/29/2024 7:24 [facility] Unconjugated Bilirubin 0.2 <=1.1 mg/dL 06/29/2024 7:24 [facility] Alkaline Phosphatase 87 38 - 126 U/L 06/29/2024 7:24 [facility] ALT 53(H) <50 U/L 06/29/2024 7:24 [facility] AST 41 15 - 46 U/L 06/29/2024 7:24 [facility] Calculated Total Bilirubin 0.2 <1.4 mg/dL 06/29/2024 7:24 [facility] Blood BLOOD SAMPLE TAKEN FROM CENTRAL LINE / Unknown PICC Line Draw / Unknown 06/29/2024 6:25 EST 06/29/2024 6:31 EST Meaghan Zapata MD CHEMISTRY & BLOOD GAS ORDERABLES Final Result Performing Organization Address City/State/[facility] Co de Phone Number [facility] [address] [place] [phone] * CK (06/29/2024 6:25 EST) CK 50 <=250 U/L 06/29/2024 7:24 [facility] Blood BLOOD SAMPLE TAKEN FROM CENTRAL LINE / Unknown PICC Line Draw / Unknown 06/29/2024 6:25 EST 06/29/2024 6:31 EST us Meaghan Zapata MD CHEMISTRY & BLOOD GAS ORDERABLES Final Result [facility] [address] [place] [address] * (ABNORMAL) POCT GLUCOSE, INTERFACED (06/28/2024 21:12 EST) Glucose, POC 162(H) 70 - 100 mg/dL 06/28/2024 21:13 EST [facility] HN LAB POC COMMENT (GLUCOSE) Test Performed by Nursing Services 06/28/2024 21:13 EST [facility] Blood CAPILLARY BLOOD / Unknown 06/28/2024 21:12 EST 06/28/2024 21:13 EST us Virginia Downey MD MPH POINT OF CARE TEST ORD ERABLES Final Result Performing Organization Address [facility]/ZIP Co de Phone Number [facility] [address] [place] [address] * (ABNORMAL) POCT GLUCOSE, INTERFACED (06/28/2024 19:15 EST) Glucose, POC 201(H) 70 - 100 mg/dL 06/28/2024 19:21 EST [facility] HN LAB POC COMMENT (GLUCOSE) Test Performed by Nursing Services 06/28/2024 19:21 EST [facility] Blood CAPILLARY BLOOD / Unknown 06/28/2024 19:15 EST 06/28/2024 19:21 EST us Virginia Downey MD MPH POINT OF CARE TEST ORD ERABLES Final Result Performing Organization Address City/[facility]/ZIP Co de Phone Number [facility] [address] [place] [address] * (ABNORMAL) POCT GLUCOSE, INTERFACED (06/28/2024 12:41 EST) Glucose, POC 202(H) 70 - 100 mg/dL 06/28/2024 12:42 EST [facility] HN LAB POC COMMENT (GLUCOSE) Test Performed by Nursing Services 06/28/2024 12:42 EST [facility] Blood CAPILLARY BLOOD / Unknown 06/28/2024 12:41 EST 06/28/2024 12:42 EST Virginia Downey MD MPH POINT OF CARE TEST ORD ERABLES Final Result Performing Organization Address City/[facility]/ZIP Co de Phone Number [facility] [address] [place] [address] * (ABNORMAL) POCT GLUCOSE, INTERFACED (06/28/2024 8:42 EST) Glucose, POC 159(H) 70 - 100 mg/dL 06/28/2024 8:44 EST [facility] HN LAB POC COMMENT (GLUCOSE) Test Performed by Nursing Services 06/28/2024 8:44 EST [facility] Blood CAPILLARY BLOOD / Unknown 06/28/2024 8:42 EST 06/28/2024 8:44 EST Virginia Downey MD MPH POINT OF CARE TEST ORD ERABLES Final Result Performing Organization Address [facility] de Phone Number [facility] [address] [place] [address] * (ABNORMAL) POCT GLUCOSE, INTERFACED (06/27/2024 20:28 EST) Glucose, POC 136(H) 70 - 100 mg/dL 06/27/2024 20:29 EST [facility] HN LAB POC COMMENT (GLUCOSE) Test Performed by Nursing Services 06/27/2024 20:29 EST [facility] Blood CAPILLARY BLOOD / Unknown 06/27/2024 20:28 EST 06/27/2024 20:29 EST us Virginia Downey MD MPH POINT OF CARE TEST ORD ERABLES Final Result Performing Organization Address City/[facility]/ZIP Co de Phone Number [facility] [address], [place] [id number] * (ABNORMAL) POCT GLUCOSE, INTERFACED (06/27/2024 15:29 EST) Glucose, POC 143(H) 70 - 100 mg/dL 06/27/2024 15:30 EST [facility] HN LAB POC COMMENT (GLUCOSE) Test Performed by Nursing Services 06/27/2024 15:30 EST [facility] Blood CAPILLARY BLOOD / Unknown 06/27/2024 15:29 EST 06/27/2024 15:30 EST Virginia Downey MD MPH POINT OF CARE TEST ORD ERABLES Final Result Performing Organization Address City/[facility]/ZIP Co de Phone Number [facility] [address] [place] [address] * (ABNORMAL) POCT GLUCOSE, INTERFACED (06/27/2024 13:19 EST) Glucose, POC 115(H) 70 - 100 mg/dL 06/27/2024 13:20 EST [facility] HN LAB POC COMMENT (GLUCOSE) Test Performed by Nursing Services 06/27/2024 13:20 EST [facility] Blood CAPILLARY BLOOD / Unknown 06/27/2024 13:19 EST 06/27/2024 13:20 EST Virginia Downey MD MPH POINT OF CARE TEST ORD ERABLES Final Result [facility] [address] [place] [address] * (ABNORMAL) POCT GLUCOSE, INTERFACED (06/27/2024 10:42 EST) Glucose, POC 291(H) 70 - 100 mg/dL 06/27/2024 10:43 EST [facility] HN LAB POC COMMENT (GLUCOSE) Test Performed by Nursing Services 06/27/2024 10:43 EST [facility] Blood CAPILLARY BLOOD / Unknown 06/27/2024 10:42 EST 06/27/2024 10:43 EST Virginia Downey MD MPH POINT OF CARE TEST ORD ERABLES Final Result Performing Organization Address City/[facility]/ZIP Co de Phone Number [facility] [address] [place] [address] * (ABNORMAL) POCT GLUCOSE, INTERFACED (06/27/2024 3:59 EST) Glucose, POC 215(H) 70 - 100 mg/dL 06/27/2024 4:01 EST [facility] HN LAB POC COMMENT (GLUCOSE) Test Performed by Nursing Services 06/27/2024 4:01 EST [facility] Blood CAPILLARY BLOOD / Unknown 06/27/2024 3:59 EST 06/27/2024 4:01 EST us Virginia Downey MD MPH POINT OF CARE TEST ORD ERABLES Final Result Performing Organization Address [facility] Co de Phone Number [facility] [address] [place] [address] * (ABNORMAL) POCT GLUCOSE, INTERFACED (06/26/2024 23:00 EST) Glucose, POC 263(H) 70 - 100 mg/dL 06/26/2024 23:01 EST [facility] HN LAB POC COMMENT (GLUCOSE) Test Performed by Nursing Services 06/26/2024 23:01 EST [facility] Blood CAPILLARY BLOOD / Unknown 06/26/2024 23:00 EST 06/26/2024 23:01 EST Virginia Downey MD MPH POINT OF CARE TEST ORD ERABLES Final Result Performing Organization Address City/[facility]/ZIP Co de Phone Number [facility] [address] [place] [address] * (ABNORMAL) POCT GLUCOSE, INTERFACED (06/26/2024 21:00 EST) Glucose, POC 200(H) 70 - 100 mg/dL 06/26/2024 21:01 [facility] HN LAB POC COMMENT (GLUCOSE) Test Performed by Nursing Services 06/26/2024 21:01 [facility] Blood CAPILLARY BLOOD / Unknown 06/26/2024 21:00 EST 06/26/2024 21:01 EST Virginia Downey MD MPH POINT OF CARE TEST ORD ERABLES Final Result [facility] [address], [place] [id number] * (ABNORMAL) POCT GLUCOSE, INTERFACED (06/26/2024 16:05 EST) Glucose, POC 299(H) 70 - 100 mg/dL 06/26/2024 16:06 [facility] HN LAB POC COMMENT (GLUCOSE) Test Performed by Nursing Services 06/26/2024 16:06 [facility] Blood CAPILLARY BLOOD / Unknown 06/26/2024 16:05 EST 06/26/2024 16:06 EST Virginia Downey MD MPH POINT OF CARE TEST ORD ERABLES Final Result [facility] [address], [place] [address] * (ABNORMAL) POCT GLUCOSE, INTERFACED (06/26/2024 10:41 EST) Glucose, POC 194(H) 70 - 100 mg/dL 06/26/2024 10:42 [facility] HN LAB POC COMMENT (GLUCOSE) Test Performed by Nursing Services 06/26/2024 10:42 [facility] Blood CAPILLARY BLOOD / Unknown 06/26/2024 10:41 EST 06/26/2024 10:42 EST us Virginia Downey MD MPH POINT OF CARE TEST ORD ERABLES Final Result [facility] [address] [place] [address] * (ABNORMAL) BASIC METABOLIC PANEL (BMP) (06/26/2024 4:54 EST) Sodium 138 136 - 145 mmol/L 06/26/2024 5:28 [facility] Potassium 4.0 3.5 - 5.0 mmol/L 06/26/2024 5:28 [facility] Chloride 104 96 - 110 mmol/L 06/26/2024 5:28 [facility] CO2 Total 26 22 - 32 mmol/L 06/26/2024 5:28 [facility] Anion Gap 8 5 - 14 mmol/L 06/26/2024 5:28 [facility] Glucose 310(H) 70 - 99 mg/dl 06/26/2024 5:28 [facility] Calcium 9.0 8.5 - 10.5 mg/dL 06/26/2024 5:28 [facility] BUN 19 10 - 26 mg/dL 06/26/2024 5:28 [facility] Creatinine 0.81 0.66 - 1.25 mg/dL 06/26/2024 5:28 [facility] eGFR 111 >60 mL/min/1.73 m2 06/26/2024 5:28 [facility] Blood VENOUS BLOOD / Unknown Venipuncture / Unknown 06/26/2024 4:54 EST 06/26/2024 4:58 EST us Virginia Downey MD MPH CHEMISTRY & BLOOD GAS ORDERABLES Final Result Performing Organization Address City/[facility]/ZIP Co de Phone Number [facility] [address] [place] [address] * (ABNORMAL) COMPLETE BLOOD COUNT (06/22/2024 10:20 EST) WBC 4.42 4.00 - 10.40 K/cmm 06/22/2024 11:03 [facility] RBC 3.89(L) 4.36 - 5.78 M/cmm 06/22/2024 11:03 [facility] Hemoglobin 10.3(L) 13.8 - 17.3 g/dL 06/22/2024 11:03 [facility] HCT 31.0(L) 39.5 - 50.2 % 06/22/2024 11:03 [facility] MCV 80(L) 81 - 95 fL 06/22/2024 11:03 [facility] MCH 26.5(L) 27.6 - 33.0 pg 06/22/2024 11:03 [facility] MCHC 33.2 32.8 - 36.4 g/dL 06/22/2024 11:03 [facility] RDW-CV 14.5(H) <14.2 % 06/22/2024 11:03 [facility] RDW-SD 41.8 <46.0 fl 06/22/2024 11:03 [facility] PLT 254 141 - 377 K/cmm 06/22/2024 11:03 [facility] MPV 9.2(L) 9.5 - 12.7 fL 06/22/2024 11:03 [facility] Blood VENOUS BLOOD / Unknown Venipuncture / Unknown 06/22/2024 10:20 EST 06/22/2024 10:49 EST us Meaghan Zapata MD HEMATOLOGY & PF4 ORDER MENDEZ Final Result [facility] [address] [place] [address] * (ABNORMAL) BASIC METABOLIC PANEL (BMP) (06/22/2024 10:20 EST) Pathologist [facility] Sodium 140 136 - 145 mmol/L 06/22/2024 11:31 [facility] Potassium 4.1 3.5 - 5.0 mmol/L 06/22/2024 11:31 [facility] Chloride 105 96 - 110 mmol/L 06/22/2024 11:31 [facility] CO2 Total 26 22 - 32 mmol/L 06/22/2024 11:31 [facility] Anion Gap 9 5 - 14 mmol/L 06/22/2024 11:31 [facility] Glucose 193(H) 70 - 99 mg/dl 06/22/2024 11:31 [facility] Calcium 9.3 8.5 - 10.5 mg/dL 06/22/2024 11:31 [facility] BUN 22 10 - 26 mg/dL 06/22/2024 11:31 [facility] Creatinine 0.87 0.66 - 1.25 mg/dL 06/22/2024 11:31 [facility] eGFR 109 >60 mL/min/1.73 m2 06/22/2024 11:31 [facility] Blood VENOUS BLOOD / Unknown Venipuncture / Unknown 06/22/2024 10:20 EST 06/22/2024 10:48 EST us Virginia Downey MD MPH CHEMISTRY & BLOOD GAS ORDERABLES Final Result Performing Organization Address City/State/[facility] Co de Phone Number [facility] [address] [place] [id number] * HEPATIC FUNCTION PANEL (ALB,ALK PHOS,ALT,AST,DBIL,TOT STEPHANY,TOT PROT) (06/22/2024 10:20 EST) Pathologist [facility] Total Protein 7.7 6.3 - 8.2 g/dL 06/22/2024 11:31 [facility] Albumin 3.5 3.4 - 4.9 g/dL 06/22/2024 11:31 [facility] Bilirubin, Total <0.5 <1.4 mg/dL 06/22/20 11:31 [facility] Conjugated Bilirubin 0.0 <=0.3 mg/dL 06/22/2024 11:31 [facility] Unconjugated Bilirubin 0.1 <=1.1 mg/dL 06/22/2024 11:31 [facility] Alkaline Phosphatase 87 38 - 126 U/L 06/22/2024 11:31 [facility] ALT 38 <50 U/L 06/22/2024 11:31 [facility] AST 30 15 - 46 U/L 06/22/2024 11:31 [facility] Calculated Total Bilirubin 0.1 <1.4 mg/dL 06/22/2024 11:31 [facility] Blood VENOUS BLOOD / Unknown Venipuncture / Unknown 06/22/2024 10:20 EST 06/22/2024 10:48 EST Meaghan Zapata MD CHEMISTRY & BLOOD GAS ORDERABLES Final Result Performing Organization Address City/[facility]/ZIP Co de Phone Number [facility] [address] [place] [address] * CK (06/22/2024 10:20 EST) CK 38 <=250 U/L 06/22/2024 11:31 [facility] Blood VENOUS BLOOD / Unknown Venipuncture / Unknown 06/22/2024 10:20 EST 06/22/2024 10:48 EST Meaghan Zapata MD CHEMISTRY & BLOOD GAS ORDERABLES Final Result Performing Organization Address City/[facility]/ZIP Co de Phone Number [facility] [address] [place] [address] * (ABNORMAL) BASIC METABOLIC PANEL (BMP) (06/19/2024 3:09 EST) Sodium 138 136 - 145 mmol/L 06/19/2024 5:04 [facility] Potassium 4.3 3.5 - 5.0 mmol/L 06/19/2024 5:04 [facility] Chloride 105 96 - 110 mmol/L 06/19/2024 5:04 [facility] CO2 Total 27 22 - 32 mmol/L 06/19/2024 5:04 [facility] Anion Gap 6 5 - 14 mmol/L 06/19/2024 5:04 [facility] Glucose 141(H) 70 - 99 mg/dl 06/19/2024 5:04 [facility] Calcium 9.5 8.5 - 10.5 mg/dL 06/19/2024 5:04 [facility] BUN 17 10 - 26 mg/dL 06/19/2024 5:04 [facility] Creatinine 0.80 0.66 - 1.25 mg/dL 06/19/2024 5:04 [facility] eGFR 112 >60 mL/min/1.73 m2 06/19/2024 5:04 [facility] Blood VENOUS BLOOD / Unknown Port / Unknown 06/19/2024 3:09 EST 06/19/2024 3:21 EST us Virginia Downey MD MPH CHEMISTRY & BLOOD GAS ORDERABLES Final Result [facility] [address] [place] [address] * (ABNORMAL) C REACTIVE PROTEIN (06/18/2024 11:51 EST) C-Reactive Protein 33.4(H) <10.0 mg/L 06/18/2024 12:35 EST [facility] Blood VENOUS BLOOD / Unknown Venipuncture / Unknown 06/18/2024 11:51 EST 06/18/2024 12:09 EST us Johan Campos MD CHEMISTRY & BLOOD GAS ORDERABLES Final Result [facility] [address], [place] [id number] * (ABNORMAL) COMPLETE BLOOD COUNT (06/18/2024 11:51 EST) WBC 6.76 4.00 - 10.40 K/cmm 06/18/2024 12:23 [facility] RBC 3.72(L) 4.36 - 5.78 M/cmm 06/18/2024 12:23 [facility] Hemoglobin 10.0(L) 13.8 - 17.3 g/dL 06/18/2024 12:23 [facility] HCT 29.5(L) 39.5 - 50.2 % 06/18/2024 12:23 [facility] MCV 79(L) 81 - 95 fL 06/18/2024 12:23 [facility] MCH 26.9(L) 27.6 - 33.0 pg 06/18/2024 12:23 [facility] MCHC 33.9 32.8 - 36.4 g/dL 06/18/2024 12:23 [facility] RDW-CV 14.4(H) <14.2 % 06/18/2024 12:23 [facility] RDW-SD 41.1 <46.0 fl 06/18/2024 12:23 [facility] PLT 248 141 - 377 K/cmm 06/18/2024 12:23 [facility] MPV 8.9(L) 9.5 - 12.7 fL 06/18/2024 12:23 [facility] Blood VENOUS BLOOD / Unknown Venipuncture / Unknown 06/18/2024 11:51 EST 06/18/2024 12:09 EST Johan Campos MD HEMATOLOGY & PF4 ORDERABLES Tia l Result [facility] [address], [place] [id number] * (ABNORMAL) COMPREHENSIVE METABOLIC PANEL (CMP) (06/18/2024 11:51 [facility]) Sodium 137 136 - 145 mmol/L 06/18/2024 12:35 [facility] Potassium 4.1 3.5 - 5.0 mmol/L 06/18/2024 12:35 [facility] Chloride 106 96 - 110 mmol/L 06/18/2024 12:35 [facility] CO2 Total 24 22 - 32 mmol/L 06/18/2024 12:35 [facility] Glucose 164(H) 70 - 99 mg/dl 06/18/2024 12:35 [facility] BUN 14 10 - 26 mg/dL 06/18/2024 12:35 [facility] Creatinine 0.73 0.66 - 1.25 mg/dL 06/18/2024 12:35 [facility] eGFR 115 >60 mL/min/1.7 3m2 06/18/2024 12:35 [facility] Total Protein 7.5 6.3 - 8.2 g/dL 06/18/2024 12:35 [facility] Albumin 3.6 3.4 - 4.9 g/dL 06/18/2024 12:35 [facility] Alkaline Phosphatase 78 38 - 126 U/L 06/18/2024 12:35 [facility] AST 25 15 - 46 U/L 06/18/2024 12:35 [facility] ALT 28 <50 U/L 06/18/2024 12:35 [facility] Bilirubin, Total <0.5 <1.4 mg/dL 06/18/20 24 12:35 [facility] Calcium 9.4 8.5 - 10.5 mg/dL 06/18/2024 12:35 [facility] Albumin/Globulin Ratio 0.9(L) 1.0 - 2.5 06/18/2024 12:35 [facility] Anion Gap 7 5 - 14 mmol/L 06/18/2024 12:35 [facility] Blood VENOUS BLOOD / Unknown Venipuncture / Unknown 06/18/2024 11:51 EST 06/18/2024 12:09 EST Johan Campos MD CHEMISTRY & BLOOD GAS ORDERABLES Final Result [facility] [address] [place] [address] * (ABNORMAL) COMPLETE BLOOD COUNT (06/15/2024 6:54 EST) WBC 5.62 4.00 - 10.40 K/cmm 06/15/2024 7:11 [facility] RBC 4.18(L) 4.36 - 5.78 M/cmm 06/15/2024 7:11 [facility] Hemoglobin 11.2(L) 13.8 - 17.3 g/dL 06/15/2024 7:11 [facility] HCT 33.1(L) 39.5 - 50.2 % 06/15/2024 7:11 [facility] MCV 79(L) 81 - 95 fL 06/15/2024 7:11 [facility] MCH 26.8(L) 27.6 - 33.0 pg 06/15/2024 7:11 [facility] MCHC 33.8 32.8 - 36.4 g/dL 06/15/2024 7:11 [facility] RDW-CV 14.2(H) <14.2 % 06/15/2024 7:11 [facility] RDW-SD 41.1 <46.0 fl 06/15/2024 7:11 [facility] PLT 301 141 - 377 K/cmm 06/15/2024 7:11 [facility] MPV 9.3(L) 9.5 - 12.7 fL 06/15/2024 7:11 [facility] Blood BLOOD SAMPLE TAKEN FROM CENTRAL LINE / Unknown 06/15/2024 6:54 EST 06/15/2024 7:01 EST us Meaghan Zapata MD HEMATOLOGY & PF4 ORDER MENDEZ Final Result Performing Organization Address City/[facility]/ZIP Co de Phone Number [facility] [address] [place] [address] * (ABNORMAL) BASIC METABOLIC PANEL (BMP) (06/15/2024 6:54 EST) Sodium 138 136 - 145 mmol/L 06/15/2024 7:58 EST [facility] Potassium 4.4 3.5 - 5.0 mmol/L 06/15/2024 7:58 [facility] Chloride 104 96 - 110 mmol/L 06/15/2024 7:58 [facility] CO2 Total 23 22 - 32 mmol/L 06/15/2024 7:58 [facility] Anion Gap 11 5 - 14 mmol/L 06/15/2024 7:58 [facility] Glucose 141(H) 70 - 99 mg/dl 06/15/2024 7:58 [facility] Calcium 9.9 8.5 - 10.5 mg/dL 06/15/2024 7:58 [facility] BUN 19 10 - 26 mg/dL 06/15/2024 7:58 [facility] Creatinine 0.81 0.66 - 1.25 mg/dL 06/15/2024 7:58 [facility] eGFR 111 >60 mL/min/1.73 m2 06/15/2024 7:58 [facility] Blood BLOOD SAMPLE TAKEN FROM CENTRAL LINE / Unknown 06/15/2024 6:54 EST 06/15/2024 7:23 EST us Virginia Downey MD MPH CHEMISTRY & BLOOD GAS ORDERABLES Final Result [facility] [address] [place] [address] * (ABNORMAL) HEPATIC FUNCTION PANEL (ALB,ALK PHOS,ALT,AST,DBIL,TOT STEPHANY,TOT PROT) (06/15/2024 6:54 EST) Total Protein 8.8(H) 6.3 - 8.2 g/dL 06/15/2024 7:58 [facility] Albumin 4.0 3.4 - 4.9 g/dL 06/15/2024 7:58 [facility] Bilirubin, Total <0.5 <1.4 mg/dL 06/15/20 7:58 [facility] Conjugated Bilirubin 0.0 <=0.3 mg/dL 06/15/2024 7:58 [facility] Unconjugated Bilirubin 0.1 <=1.1 mg/dL 06/15/2024 7:58 [facility] Alkaline Phosphatase 89 38 - 126 U/L 06/15/2024 7:58 [facility] ALT 38 <50 U/L 06/15/2024 7:58 [facility] AST 33 15 - 46 U/L 06/15/2024 7:58 [facility] Calculated Total Bilirubin 0.1 <1.4 mg/dL 06/15/2024 7:58 [facility] Blood BLOOD SAMPLE TAKEN FROM CENTRAL LINE / Unknown 06/15/2024 6:54 EST 06/15/2024 7:23 EST Meaghan Zapata MD CHEMISTRY & BLOOD GAS ORDERABLES Final Result Performing Organization Address City/State/[facility] Co de Phone Number [facility] [address] [place] [address] * CK (06/15/2024 6:54 EST) CK 40 <=250 U/L 06/15/2024 7:58 [facility] Blood BLOOD SAMPLE TAKEN FROM CENTRAL LINE / Unknown 06/15/2024 6:54 EST 06/15/2024 7:23 EST Meaghan Zapata MD CHEMISTRY & BLOOD GAS ORDERABLES Final Result [facility] [address] [place] [address] * INSERT PICC LINE (06/13/2024 19:04 EST) Narrative Shyann Encinas RN - 06/13/2024 19:04 EST Shyann Encinas RN ? 06/13/2024 19:05 Central Catheter Insertion First Catheter This Session ?supervisor yard: Patient Location: [id number] Preliminary Data: Insertion Date: 06/13/24 Insertion Time: 1827 First Lay Brother: Shyann Encinas RN/MA Documenting Procedure: tamara chandler Pre-procedure: Time [...] Dressing Dated And Timed: Yes Needle Passes: ABDON RN Makes 2 Or Fewer Needle Passes: [...] Line Operators: Number Of Operators: 1 First Lay Brother's Name: Shyann Encinas RN First Lay Brother's Title: Vascular precision lens polisher Unless otherwise noted, there were no complications, no blood loss and no cultures obtained. SHYANN ENCINAS RN ?? 06/13/2024 ?? 19:05 us Johan Campos MD IV THERAPY ORDERABLES Final Resu lt * BASIC METABOLIC PANEL (BMP) (06/12/2024 6:11 EST) Sodium 139 136 - 145 mmol/L 06/12/2024 7:01 [facility] Potassium 4.5 3.5 - 5.0 mmol/L 06/12/2024 7:01 [facility] Chloride 102 96 - 110 mmol/L 06/12/2024 7:01 [facility] CO2 Total 24 22 - 32 mmol/L 06/12/2024 7:01 [facility] Anion Gap 13 5 - 14 mmol/L 06/12/2024 7:01 [facility] Glucose 88 70 - 99 mg/dl 06/12/2024 7:01 [facility] Calcium 10.1 8.5 - 10.5 mg/dL 06/12/2024 7:01 [facility] BUN 21 10 - 26 mg/dL 06/12/2024 7:01 [facility] Creatinine 0.91 0.66 - 1.25 mg/dL 06/12/2024 7:01 [facility] eGFR 107 >60 mL/min/1.73 m2 06/12/2024 7:01 [facility] Blood VENOUS BLOOD / Unknown Venipuncture / Unknown 06/12/2024 6:11 EST 06/12/2024 6:28 EST us Virginia Donwey MD MPH CHEMISTRY & BLOOD GAS ORDERABLES Final Result [facility] [address] [place] [address] * CK (06/11/2024 6:51 EST) CK 48 <=250 U/L 06/11/2024 8:03 [facility] Blood VENOUS BLOOD / Unknown Venipuncture / Unknown 06/11/2024 6:51 EST 06/11/2024 7:14 EST us Meaghan Zapata MD CHEMISTRY & BLOOD GAS ORDERABLES Final Result Performing Organization Address City/[facility]/ZIP Co de Phone Number [facility] [address] [place] [address] * (ABNORMAL) COMPLETE BLOOD COUNT (06/11/2024 6:51 EST) Pathologist [facility] WBC 6.56 4.00 - 10.40 K/cmm 06/11/2024 7:27 [facility] RBC 4.25(L) 4.36 - 5.78 M/cmm 06/11/2024 7:27 [facility] Hemoglobin 11.4(L) 13.8 - 17.3 g/dL 06/11/2024 7:27 [facility] HCT 33.2(L) 39.5 - 50.2 % 06/11/2024 7:27 [facility] MCV 78(L) 81 - 95 fL 06/11/2024 7:27 [facility] MCH 26.8(L) 27.6 - 33.0 pg 06/11/2024 7:27 [facility] MCHC 34.3 32.8 - 36.4 g/dL 06/11/2024 7:27 [facility] RDW-CV 14.6(H) <14.2 % 06/11/2024 7:27 [facility] RDW-SD 41.1 <46.0 fl 06/11/2024 7:27 [facility] PLT 355 141 - 377 K/cmm 06/11/2024 7:27 [facility] MPV 9.1(L) 9.5 - 12.7 fL 06/11/2024 7:27 [facility] Blood VENOUS BLOOD / Unknown Venipuncture / Unknown 06/11/2024 6:51 EST 06/11/2024 7:14 EST Meaghan Zapata MD HEMATOLOGY & PF4 ORDER MENDEZ Final Result [facility] [address] [place] [address] * (ABNORMAL) HEPATIC FUNCTION PANEL (ALB,ALK PHOS,ALT,AST,DBIL,TOT STEPHANY,TOT PROT) (06/11/2024 6:51 EST) Total Protein 8.8(H) 6.3 - 8.2 g/dL 06/11/2024 8:03 [facility] Albumin 4.0 3.4 - 4.9 g/dL 06/11/2024 8:03 [facility] Bilirubin, Total <0.5 <1.4 mg/dL 06/11/20 8:03 [facility] Conjugated Bilirubin 0.0 <=0.3 mg/dL 06/11/2024 8:03 [facility] Unconjugated Bilirubin 0.1 <=1.1 mg/dL 06/11/2024 8:03 [facility] Alkaline Phosphatase 88 38 - 126 U/L 06/11/2024 8:03 [facility] ALT 26 <50 U/L 06/11/2024 8:03 [facility] AST 31 15 - 46 U/L 06/11/2024 8:03 [facility] Calculated Total Bilirubin 0.1 <1.4 mg/dL 06/11/2024 8:03 [facility] Blood VENOUS BLOOD / Unknown Venipuncture / Unknown 06/11/2024 6:51 EST 06/11/2024 7:14 EST Meaghan Zapata MD CHEMISTRY & BLOOD GAS ORDERABLES Final Result [facility] [address] [place] [address] * (ABNORMAL) BASIC METABOLIC PANEL (BMP) (06/11/2024 6:51 EST) Sodium 138 136 - 145 mmol/L 06/11/2024 8:03 [facility] Potassium 4.6 3.5 - 5.0 mmol/L 06/11/2024 8:03 [facility] Chloride 102 96 - 110 mmol/L 06/11/2024 8:03 [facility] CO2 Total 24 22 - 32 mmol/L 06/11/2024 8:03 [facility] Anion Gap 12 5 - 14 mmol/L 06/11/2024 8:03 [facility] Glucose 120(H) 70 - 99 mg/dl 06/11/2024 8:03 [facility] Calcium 10.0 8.5 - 10.5 mg/dL 06/11/2024 8:03 [facility] BUN 25 10 - 26 mg/dL 06/11/2024 8:03 [facility] Creatinine 0.96 0.66 - 1.25 mg/dL 06/11/2024 8:03 [facility] eGFR 100 >60 mL/min/1.73 m2 06/11/2024 8:03 [facility] Blood VENOUS BLOOD / Unknown Venipuncture / Unknown 06/11/2024 6:51 EST 06/11/2024 7:14 EST Meaghan Zapata MD CHEMISTRY & BLOOD GAS ORDERABLES Final Result [facility] [address] [place] [address] * (ABNORMAL) COMPLETE BLOOD COUNT (06/08/2024 16:37 EST) WBC 7.05 4.00 - 10.40 K/cmm 06/08/2024 16:46 [facility] RBC 3.97(L) 4.36 - 5.78 M/cmm 06/08/2024 16:46 [facility] Hemoglobin 10.9(L) 13.8 - 17.3 g/dL 06/08/2024 16:46 [facility] HCT 31.5(L) 39.5 - 50.2 % 06/08/2024 16:46 [facility] MCV 79(L) 81 - 95 fL 06/08/2024 16:46 [facility] MCH 27.5(L) 27.6 - 33.0 pg 06/08/2024 16:46 [facility] MCHC 34.6 32.8 - 36.4 g/dL 06/08/2024 16:46 [facility] RDW-CV 14.3(H) <14.2 % 06/08/2024 16:46 [facility] RDW-SD 41.1 <46.0 fl 06/08/2024 16:46 [facility] PLT 267 141 - 377 K/cmm 06/08/2024 16:46 [facility] MPV 10.7 9.5 - 12.7 fL 06/08/2024 16:46 [facility] Blood CAPILLARY BLOOD / Unknown Finger/Heel Stick / Unknown 06/08/2024 16:37 EST 06/08/2024 16:40 EST us Virginia Downey MD MPH HEMATOLOGY & PF4 ORDER MENDEZ Final Result [facility] [address] [place] [address] * BACTERIAL CULTURE, BLOOD (06/08/2024 15:09 EST) Organism ID No Growth at 5 days 06/13/2024 16:01 [facility] Blood VENOUS BLOOD / Unknown Venipuncture / Unknown 06/08/2024 15:09 EST 06/08/2024 15:57 EST Narrative [facility] - 06/13/2024 16:01 EST Volume of blood collected may not be adequate for detection of bacteremia/septicemia. us Virginia Downey MD MPH MICROBIOLOGY - GENERAL ORDERABLES Final Result [facility] [address] [place] [phone] * (ABNORMAL) BASIC METABOLIC PANEL (BMP) (06/08/2024 15:08 EST) Sodium 139 136 - 145 mmol/L 06/08/2024 16:22 [facility] Potassium 4.9 3.5 - 5.0 mmol/L 06/08/2024 16:22 [facility] Chloride 101 96 - 110 mmol/L 06/08/2024 16:22 [facility] CO2 Total 25 22 - 32 mmol/L 06/08/2024 16:22 [facility] Anion Gap 13 5 - 14 mmol/L 06/08/2024 16:22 [facility] Glucose 237(H) 70 - 99 mg/dl 06/08/2024 16:22 [facility] Calcium 9.5 8.5 - 10.5 mg/dL 06/08/2024 16:22 [facility] BUN 25 10 - 26 mg/dL 06/08/2024 16:22 [facility] Creatinine 0.82 0.66 - 1.25 mg/dL 06/08/2024 16:22 [facility] eGFR 111 >60 mL/min/1.73 m2 06/08/2024 16:22 [facility] Blood VENOUS BLOOD / Unknown Venipuncture / Unknown 06/08/2024 15:08 EST 06/08/2024 15:51 EST Virginia Downey MD MPH CHEMISTRY & BLOOD GAS ORDERABLES Final Result [facility] [address] [place] [address] * (ABNORMAL) HEPATIC FUNCTION PANEL (ALB,ALK PHOS,ALT,AST,DBIL,TOT STEPHANY,TOT PROT) (06/08/2024 15:08 EST) Total Protein 8.8(H) 6.3 - 8.2 g/dL 06/08/2024 16:22 [facility] Albumin 4.1 3.4 - 4.9 g/dL 06/08/2024 16:22 [facility] Bilirubin, Total <0.5 <1.4 mg/dL 06/08/20 16:22 [facility] Conjugated Bilirubin 0.0 <=0.3 mg/dL 06/08/2024 16:22 [facility] Unconjugated Bilirubin 0.3 <=1.1 mg/dL 06/08/2024 16:22 [facility] Alkaline Phosphatase 118 38 - 126 U/L 06/08/2024 16:22 [facility] ALT 22 <50 U/L 06/08/2024 16:22 [facility] AST 29 15 - 46 U/L 06/08/2024 16:22 [facility] Calculated Total Bilirubin 0.3 <1.4 mg/dL 06/08/2024 16:22 [facility] Blood VENOUS BLOOD / Unknown Venipuncture / Unknown 06/08/2024 15:08 EST 06/08/2024 15:51 EST us Meaghan Zapata MD CHEMISTRY & BLOOD GAS ORDERABLES Final Result [facility] [address] [place] [address] * CK (06/08/2024 15:08 EST) CK 39 <=250 U/L 06/08/2024 16:22 EST [facility] Blood VENOUS BLOOD / Unknown Venipuncture / Unknown 06/08/2024 15:08 EST 06/08/2024 15:51 EST us Meaghan Zapata MD CHEMISTRY & BLOOD GAS ORDERABLES Final Result Performing Organization Address [facility]/ZIP Co de Phone Number [facility] [address] [place] [address] * BACTERIAL CULTURE, BLOOD (06/08/2024 7:55 EST) Organism ID No Growth at 5 days 06/13/2024 9:01 EST [facility] Blood VENOUS BLOOD / Unknown Venipuncture / Unknown 06/08/2024 7:55 EST 06/08/2024 8:50 EST us Virginia Downey MD MPH MICROBIOLOGY - GENERAL ORDERABLES Final Result Performing Organization Address [facility] Co de Phone Number [facility] [address] [place] [address] * CT ABDOMEN PELVIS W CONTRAST (06/05/2024 [...] above interpretation and agree with the findings. [id number] Narrative 06/05/2024 14:[address] ABDOMEN PELVIS [...] canal with mild to moderate spinal stenosis. Cash Reconciliation Specialist: No additional finding. Resulting Agency Comment [id number] Procedure Note Trupti Alvarez MD - 06/05/2024 [...] from prior exam are cortical lucencies at [id number] endplate with osseous destruction of the head of the right 11thrib, findings concerning for discitis osteomyelitis with costovertebralinvolvement. In the paraspinal soft tissues adjacent to this level thereis fatty stranding without discrete fluid collection. Increased softtissue density seen within the spinal canal with mild to moderate spinalstenosis. Cash Reconciliation Specialist: No additional finding. IMPRESSION 1. 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 Please see the same day MRI of thethoracic spine for further evaluation. 2. No bowel inflammation or organizing fluid collection within theabdomen or pelvis. I have personally reviewed the images and the above interpretation andagree with the findings. [id number] us Virginia Downey MD MPH IMG CT ORDERABLES Tia l Result * BACTERIAL CULTURE, BLOOD (06/05/2024 9:41 EST) Organism ID No Growth at 5 days 06/10/2024 10:31 EST [facility] Blood VENOUS BLOOD / Unknown Venipuncture / Unknown 06/05/2024 9:41 EST 06/05/2024 10:20 EST Virginia Downey MD MPH MICROBIOLOGY - GENERAL ORDERABLES Final Result Performing Organization Address [facility]/ZIP Co de Phone Number [facility] [address] [place] [address] * (ABNORMAL) BACTERIAL CULTURE, BLOOD (06/05/2024 9:41 EST) Organism ID Methicillin-Resi stant Staphylococcus aureus(AA) VITEK SUSCEPTIBILITY 7:13 EST [facility] Comment: Detected at 27 hours. Resistant to all penicillins (including nafcillin), combinations of penicillins and beta lactamase inhibitors (eg amoxicillin clavulanic acid, ampicillin sulbactam, piperacillin tazobactam), cephalosporins, and all carbapenems (eg meropenem and imipenem). (mecA gene product present). Ceftaroline may be active in some cases. Staphylococcus aureus is a life threatening infection when found in the blood. It should NOT be considered a contaminant. Staphylococcus aureus bacteremia should be treated with IV antibiotics. Infectious Disease consultation is encouraged. Blood VENOUS BLOOD / Unknown Venipuncture / Unknown 06/05/2024 9:41 EST 06/05/2024 10:20 EST Narrative Organism Antibiotic Method Susceptibility Methicillin-Resistant Staphylococcus aureus Cefazolin VITEK SUSCEPTIBILITY Deduced Resistant Methicillin-Resistant Staphylococcus aureus Daptomycin VITEK SUSCEPTIBILITY 0.25 ug/mL: Susceptible Methicillin-Resistant Staphylococcus aureus Oxacillin VITEK SUSCEPTIBILITY >=4 ug/mL: Resistant Methicillin-Resistant Staphylococcus aureus Vancomycin VITEK SUSCEPTIBILITY <=0.5 ug/mL: Susceptible Virginia Downey MD MPH MICROBIOLOGY - GENERAL ORDERABLES Final Result [facility] [address] [place] [id number] * (ABNORMAL) COMPLETE BLOOD COUNT (06/05/2024 9:41 EST) WBC 8.17 4.00 - 10.40 K/cmm 06/05/2024 10:16 EST [facility] RBC 4.08(L) 4.36 - 5.78 M/cmm 06/05/2024 10:16 [facility] Hemoglobin 10.9(L) 13.8 - 17.3 g/dL 06/05/2024 10:16 [facility] HCT 32.0(L) 39.5 - 50.2 % 06/05/2024 10:16 [facility] MCV 78(L) 81 - 95 fL 06/05/2024 10:16 [facility] MCH 26.7(L) 27.6 - 33.0 pg 06/05/2024 10:16 [facility] MCHC 34.1 32.8 - 36.4 g/dL 06/05/2024 10:16 [facility] RDW-CV 14.9(H) <14.2 % 06/05/2024 10:16 [facility] RDW-SD 42.4 <46.0 fl 06/05/2024 10:16 [facility] PLT 326 141 - 377 K/cmm 06/05/2024 10:16 [facility] MPV 10.6 9.5 - 12.7 fL 06/05/2024 10:16 [facility] Blood VENOUS BLOOD / Unknown Venipuncture / Unknown 06/05/2024 9:41 EST 06/05/2024 10:07 EST us Virginia Downey MD MPH HEMATOLOGY & PF4 ORDER MENDEZ Final Result [facility] [address] [place] [address] * (ABNORMAL) BASIC METABOLIC PANEL (BMP) (06/05/2024 9:41 EST) Sodium 135(L) 136 - 145 mmol/L 06/05/2024 10:33 [facility] Potassium 4.7 3.5 - 5.0 mmol/L 06/05/2024 10:33 [facility] Chloride 99 96 - 110 mmol/L 06/05/2024 10:33 [facility] CO2 Total 27 22 - 32 mmol/L 06/05/2024 10:33 [facility] Anion Gap 9 5 - 14 mmol/L 06/05/2024 10:33 [facility] Glucose 137(H) 70 - 99 mg/dl 06/05/2024 10:33 [facility] Calcium 9.7 8.5 - 10.5 mg/dL 06/05/2024 10:33 [facility] BUN 17 10 - 26 mg/dL 06/05/2024 10:33 [facility] Creatinine 0.80 0.66 - 1.25 mg/dL 06/05/2024 10:33 [facility] eGFR 112 >60 mL/min/1.73 m2 06/05/2024 10:33 [facility] Blood VENOUS BLOOD / Unknown Venipuncture / Unknown 06/05/2024 9:41 EST 06/05/2024 10:06 EST us Virginia Downey MD MPH CHEMISTRY & BLOOD GAS ORDERABLES Final Result Performing Organization Address City/State/[facility] Co de Phone Number [facility] [address] [place] [address] * ECG REPORT - SCANNED (06/05/2024 8:24 EST) 06/05/2024 8:24 EST us Scan 2 Control Integration Engineer PROCEDURE/MINOR SURGICAL OR DERABLES Final Result * (ABNORMAL) BACTERIAL CULTURE, BLOOD (06/04/2024 11:44 EST) Organism ID Methicillin-Resi stant Staphylococcus aureus(AA) VITEK SUSCEPTIBILITY 9:29 [facility] Comment: Detected at 15.9 hrs. Resistant to all penicillins (including nafcillin), combinations of penicillins and beta lactamase inhibitors (eg amoxicillin clavulanic acid, ampicillin sulbactam, piperacillin tazobactam), cephalosporins, and all carbapenems (eg meropenem and imipenem). (mecA gene product present). Ceftaroline may be active in some cases. Specimen tested for 12 gram positive organism identification targets and 3 antibiotic resistance determinant targets, by micro array technology. Staphylococcus aureus is a life threatening infection when found in the blood. It should NOT be considered a contaminant. Staphylococcus aureus bacteremia should be treated with IV antibiotics. Infectious Disease consultation is encouraged. Blood VENOUS BLOOD / Unknown Venipuncture / Unknown 06/04/2024 11:44 EST 06/04/2024 11:55 EST Narrative Organism Antibiotic Method Susceptibility Methicillin-Resistant Staphylococcus aureus Cefazolin VITEK SUSCEPTIBILITY Deduced Resistant Methicillin-Resistant Staphylococcus aureus Ceftaroline VITEK SUSCEPTIBILITY 0.5 ug/mL: Susceptible Methicillin-Resistant Staphylococcus aureus Daptomycin VITEK SUSCEPTIBILITY 0.5 ug/mL: Susceptible Methicillin-Resistant Staphylococcus aureus Oxacillin VITEK SUSCEPTIBILITY >=4 ug/mL: Resistant Methicillin-Resistant Staphylococcus aureus Vancomycin VITEK SUSCEPTIBILITY 1 ug/mL: Susceptible Virginia Downey MD MPH MICROBIOLOGY - GENERAL ORDERABLES Final Result [facility] [address] [place] [address] * (ABNORMAL) BACTERIAL CULTURE, BLOOD (06/04/2024 11:44 EST) Organism ID Methicillin-Resis tant Staphylococcus aureus(AA) 06/07/2024 9:29 EST [facility] Comment: Detected at 19 hours Resistant to all penicillins (including nafcillin), combinations of penicillins and beta lactamase inhibitors (eg amoxicillin clavulanic acid, ampicillin sulbactam, piperacillin tazobactam), cephalosporins, and all carbapenems (eg meropenem and imipenem). (mecA gene product present). Ceftaroline may be active in some cases. [place] morphology consistent with other culture from same site/ source collected on the same day. Staphylococcus aureus is a life threatening infection when found in the blood. It should NOT be considered a contaminant. Staphylococcus aureus bacteremia should be treated with IV antibiotics. Infectious Disease consultation is encouraged. Blood VENOUS BLOOD / Unknown Venipuncture / Unknown 06/04/2024 11:44 EST 06/04/2024 11:55 EST us Virginia Downey MD MPH MICROBIOLOGY - GENERAL ORDERABLES Final Result [facility] [address] [place] [id number] * MR THORACIC SPINE W WO CONTRAST [...] osteomyelitis of the adjacent right 11th rib. [id number] Narrative 06/04/2024 11:15 EST EXAM: MRI THORACIC [...] bone marrow signal abnormality. Resulting Agency Comment [id number] Procedure Note Remigio Warner MD - 06/04/2024 EXAM: MRI THORACIC [...] and prevertebral enhancement at the T10 and [id number], slightly asymmetric to the right. The enhancement [...] and paraspinal phlegmonous enhancement is present at [id number] level, without evidence of prevertebral or paraspinal abscess.There is osteomyelitis of the adjacent right 11th rib. [id number] Virginia Downey MD MPH IMG MRI ORDERABLES Fin al Result * (ABNORMAL) BACTERIAL CULTURE, BLOOD (06/03/2024 8:29 EST) Organism ID Methicillin-Resi stant Staphylococcus aureus(AA) VITEK SUSCEPTIBILITY 7:26 EST [facility] Comment: Detected at 36.1 Hours Resistant to all penicillins (including nafcillin), combinations of penicillins and beta lactamase inhibitors (eg amoxicillin clavulanic acid, ampicillin sulbactam, piperacillin tazobactam), cephalosporins, and all carbapenems (eg meropenem and imipenem). (mecA gene product present). Ceftaroline may be active in some cases. Staphylococcus aureus is a life threatening infection when found in the blood. It should NOT be considered a contaminant. Staphylococcus aureus bacteremia should be treated with IV antibiotics. Infectious Disease consultation is encouraged. Blood VENOUS BLOOD / Unknown Venipuncture / Unknown 06/03/2024 8:29 EST 06/03/2024 9:31 EST Narrative Organism Antibiotic Method Susceptibility Methicillin-Resistant Staphylococcus aureus Cefazolin VITEK SUSCEPTIBILITY Deduced Resistant Methicillin-Resistant Staphylococcus aureus Daptomycin VITEK SUSCEPTIBILITY 0.5 ug/mL: Susceptible Methicillin-Resistant Staphylococcus aureus Oxacillin VITEK SUSCEPTIBILITY >=4 ug/mL: Resistant Methicillin-Resistant Staphylococcus aureus Vancomycin VITEK SUSCEPTIBILITY 1 ug/mL: Susceptible Virginia Downey MD MPH MICROBIOLOGY - GENERAL ORDERABLES Final Result [facility] [address] [place] [phone] * BACTERIAL CULTURE, BLOOD (06/03/2024 8:28 EST) Organism ID No Growth at 5 days 06/08/2024 9:45 EST [facility] Blood VENOUS BLOOD / Unknown Venipuncture / Unknown 06/03/2024 8:28 EST 06/03/2024 9:31 EST us Virginia Downey MD MPH MICROBIOLOGY - GENERAL ORDERABLES Final Result [facility] [address] [place] [address] * (ABNORMAL) BASIC METABOLIC PANEL (BMP) (06/03/2024 8:28 EST) Sodium 135(L) 136 - 145 mmol/L 06/03/2024 9:24 [facility] Potassium 4.4 3.5 - 5.0 mmol/L 06/03/2024 9:24 [facility] Chloride 101 96 - 110 mmol/L 06/03/2024 9:24 [facility] CO2 Total 26 22 - 32 mmol/L 06/03/2024 9:24 [facility] Anion Gap 8 5 - 14 mmol/L 06/03/2024 9:24 [facility] Glucose 167(H) 70 - 99 mg/dl 06/03/2024 9:24 [facility] Calcium 9.5 8.5 - 10.5 mg/dL 06/03/2024 9:24 [facility] BUN 15 10 - 26 mg/dL 06/03/2024 9:24 [facility] Creatinine 0.69 0.66 - 1.25 mg/dL 06/03/2024 9:24 [facility] eGFR 117 >60 mL/min/1.73 m2 06/03/2024 9:24 [facility] Blood VENOUS BLOOD / Unknown Venipuncture / Unknown 06/03/2024 8:28 EST 06/03/2024 8:56 EST Virginia Downey MD MPH CHEMISTRY & BLOOD GAS ORDERABLES Final Result Performing Organization Address City/[facility]/ZIP Co de Phone Number [facility] [address] [place] [id number] * (ABNORMAL) COMPLETE BLOOD COUNT (06/03/2024 8:28 EST) WBC 7.02 4.00 - 10.40 K/cmm 06/03/2024 9:05 [facility] RBC 3.88(L) 4.36 - 5.78 M/cmm 06/03/2024 9:05 [facility] Hemoglobin 10.4(L) 13.8 - 17.3 g/dL 06/03/2024 9:05 [facility] HCT 30.8(L) 39.5 - 50.2 % 06/03/2024 9:05 [facility] MCV 79(L) 81 - 95 fL 06/03/2024 9:05 [facility] MCH 26.8(L) 27.6 - 33.0 pg 06/03/2024 9:05 [facility] MCHC 33.8 32.8 - 36.4 g/dL 06/03/2024 9:05 [facility] RDW-CV 14.9(H) <14.2 % 06/03/2024 9:05 [facility] RDW-SD 43.1 <46.0 fl 06/03/2024 9:05 [facility] PLT 317 141 - 377 K/cmm 06/03/2024 9:05 [facility] MPV 9.9 9.5 - 12.7 fL 06/03/2024 9:05 [facility] Blood VENOUS BLOOD / Unknown Venipuncture / Unknown 06/03/2024 8:28 EST 06/03/2024 8:56 EST us Virginia Downey MD MPH HEMATOLOGY & PF4 ORDER MENDEZ Final Result [facility] [address] [place] [address] * (ABNORMAL) BACTERIAL CULTURE, BLOOD (06/01/2024 8:00 EST) Organism ID Methicillin-Resi stant Staphylococcus aureus(AA) VITEK SUSCEPTIBILITY 7:36 EST [facility] Comment: Detected at 17 hours. Resistant to all penicillins (including nafcillin), combinations of penicillins and beta lactamase inhibitors (eg amoxicillin clavulanic acid, ampicillin sulbactam, piperacillin tazobactam), cephalosporins, and all carbapenems (eg meropenem and imipenem). (mecA gene product present). Ceftaroline may be active in some cases. Staphylococcus aureus is a life threatening infection when found in the blood. It should NOT be considered a contaminant. Staphylococcus aureus bacteremia should be treated with IV antibiotics. Infectious Disease consultation is encouraged. Blood VENOUS BLOOD / Unknown Venipuncture / Unknown 06/01/2024 8:00 EST 06/01/2024 8:41 EST Narrative Organism Antibiotic Method Susceptibility Methicillin-Resistant Staphylococcus aureus Cefazolin VITEK SUSCEPTIBILITY Deduced Resistant Methicillin-Resistant Staphylococcus aureus Daptomycin VITEK SUSCEPTIBILITY 0.25 ug/mL: Susceptible Methicillin-Resistant Staphylococcus aureus Oxacillin VITEK SUSCEPTIBILITY >=4 ug/mL: Resistant Methicillin-Resistant Staphylococcus aureus Vancomycin VITEK SUSCEPTIBILITY <=0.5 ug/mL: Susceptible Meaghan Zapata MD MICROBIOLOGY - GENERAL ORDERABLES Final Result [facility] [address] [place] [address] * (ABNORMAL) BACTERIAL CULTURE, BLOOD (06/01/2024 8:00 EST) Organism ID Methicillin-Resis tant Staphylococcus aureus(AA) 06/04/2024 7:37 EST [facility] Comment: Detected at 29 hours Resistant to all penicillins (including nafcillin), combinations of penicillins and beta lactamase inhibitors (eg amoxicillin clavulanic acid, ampicillin sulbactam, piperacillin tazobactam), cephalosporins, and all carbapenems (eg meropenem and imipenem). (mecA gene product present). Ceftaroline may be active in some cases. [place] morphology consistent with other culture from same site/ source collected on the same day. Staphylococcus aureus is a life threatening infection when found in the blood. It should NOT be considered a contaminant. Staphylococcus aureus bacteremia should be treated with IV antibiotics. Infectious Disease consultation is encouraged. Blood VENOUS BLOOD / Unknown Venipuncture / Unknown 06/01/2024 8:00 EST 06/01/2024 8:41 EST Meaghan Zapata MD MICROBIOLOGY - GENERAL ORDERABLES Final Result [facility] [address] [place] [address] * (ABNORMAL) HEPATIC FUNCTION PANEL (ALB,ALK PHOS,ALT,AST,DBIL,TOT STEPHANY,TOT PROT) (06/01/2024 8:00 EST) Total Protein 7.6 6.3 - 8.2 g/dL 06/01/2024 9:27 [facility] Albumin 3.5 3.4 - 4.9 g/dL 06/01/2024 9:27 [facility] Bilirubin, Total <0.5 <1.4 mg/dL 06/01/20 9:27 [facility] Conjugated Bilirubin 0.0 <=0.3 mg/dL 06/01/2024 9:27 [facility] Unconjugated Bilirubin 0.1 <=1.1 mg/dL 06/01/2024 9:27 [facility] Alkaline Phosphatase 74 38 - 126 U/L 06/01/2024 9:27 [facility] ALT 9 <50 U/L 06/01/2024 9:27 [facility] AST 14(L) 15 - 46 U/L 06/01/2024 9:27 [facility] Calculated Total Bilirubin 0.1 <1.4 mg/dL 06/01/2024 9:27 [facility] Blood VENOUS BLOOD / Unknown Venipuncture / Unknown 06/01/2024 8:00 EST 06/01/2024 8:50 EST Meaghan Zapata MD CHEMISTRY & BLOOD GAS ORDERABLES Final Result [facility] [address] [place] [address] * CK (06/01/2024 8:00 EST) CK 29 <=250 U/L 06/01/2024 9:27 EST [facility] Blood VENOUS BLOOD / Unknown Venipuncture / Unknown 06/01/2024 8:00 EST 06/01/2024 8:50 EST Meaghan Zapata MD CHEMISTRY & BLOOD GAS ORDERABLES Final Result Performing Organization Address City/[facility]/ZIP Co de Phone Number [facility] [address] [place] [address] * FERRITIN (05/31/2024 8:13 EST) Ferritin 137 22 - 322 ng/mL 05/31/2024 13:14 EST [facility] Blood VENOUS BLOOD / Unknown Venipuncture / Unknown 05/31/2024 8:13 EST 05/31/2024 8:52 EST Meaghan Zapata MD CHEMISTRY & BLOOD GAS ORDERABLES Final Result Performing Organization Address City/[facility]/ZIP Co de Phone Number [facility] [address], [place] [id number] * (ABNORMAL) TRANSFERRIN SATURATION (05/31/2024 8:13 EST) Iron 39(L) 49 - 181 ??g/dL 05/31/2024 12:07 EST [facility] Iron Binding Capacity 276 240 - 450 ??g/dL 05/31/2024 12:07 EST [facility] Transferrin Saturation 14(L) 15 - 45 % 05/31/2024 12:07 EST [facility] Blood VENOUS BLOOD / Unknown Venipuncture / Unknown 05/31/2024 8:13 EST 05/31/2024 8:52 EST us Meaghan Zapata MD CHEMISTRY & BLOOD GAS ORDERABLES Final Result [facility] [address] [place] [address] * (ABNORMAL) BASIC METABOLIC PANEL (BMP) (05/31/2024 8:13 EST) Sodium 138 136 - 145 mmol/L 05/31/2024 9:23 [facility] Potassium 4.8 3.5 - 5.0 mmol/L 05/31/2024 9:23 [facility] Chloride 101 96 - 110 mmol/L 05/31/2024 9:23 [facility] CO2 Total 24 22 - 32 mmol/L 05/31/2024 9:23 [facility] Anion Gap 13 5 - 14 mmol/L 05/31/2024 9:23 [facility] Glucose 122(H) 70 - 99 mg/dl 05/31/2024 9:23 [facility] Calcium 9.6 8.5 - 10.5 mg/dL 05/31/2024 9:23 [facility] BUN 14 10 - 26 mg/dL 05/31/2024 9:23 [facility] Creatinine 0.71 0.66 - 1.25 mg/dL 05/31/2024 9:23 [facility] eGFR 116 >60 mL/min/1.73 m2 05/31/2024 9:23 [facility] Blood VENOUS BLOOD / Unknown Venipuncture / Unknown 05/31/2024 8:13 EST 05/31/2024 8:52 EST us Martha Syed MD MPH CHEMISTRY & BLOOD GAS O RDERABLES Final Result [facility] [address] [place] [address] * MAGNESIUM (05/31/2024 8:13 EST) Magnesium 2.2 1.7 - 2.8 mg/dL 05/31/2024 9:23 [facility] Blood VENOUS BLOOD / Unknown Venipuncture / Unknown 05/31/2024 8:13 EST 05/31/2024 8:52 EST Taj Parsons DO CHEMISTRY & BLOOD GAS ORDERABLES Final Result [facility] [address], [place] [id number] * (ABNORMAL) COMPLETE BLOOD COUNT (05/31/2024 8:13 EST) WBC 8.06 4.00 - 10.40 K/cmm 05/31/2024 9:00 [facility] RBC 4.56 4.36 - 5.78 M/cmm 05/31/2024 9:00 [facility] Hemoglobin 12.0(L) 13.8 - 17.3 g/dL 05/31/2024 9:00 [facility] HCT 35.8(L) 39.5 - 50.2 % 05/31/2024 9:00 [facility] MCV 79(L) 81 - 95 fL 05/31/2024 9:00 [facility] MCH 26.3(L) 27.6 - 33.0 pg 05/31/2024 9:00 [facility] MCHC 33.5 32.8 - 36.4 g/dL 05/31/2024 9:00 [facility] RDW-CV 15.0(H) <14.2 % 05/31/2024 9:00 [facility] RDW-SD 42.8 <46.0 fl 05/31/2024 9:00 [facility] PLT 244 141 - 377 K/cmm 05/31/2024 9:00 [facility] MPV 10.0 9.5 - 12.7 fL 05/31/2024 9:00 EST [facility] Blood VENOUS BLOOD / Unknown Venipuncture / Unknown 05/31/2024 8:13 EST 05/31/2024 8:50 EST Taj Parsons DO HEMATOLOGY & PF4 ORDERABLES Tia l Result Performing Organization Address [facility]/ZIP Co de Phone Number [facility] [address] [place] [phone] * (ABNORMAL) BACTERIAL CULTURE, BLOOD (05/30/2024 14:10 EST) Organism ID Methicillin-Resi stant Staphylococcus aureus(AA) VITEK SUSCEPTIBILITY 8:10 EST [facility] Comment: Detected at 19.3 hours. Resistant to all penicillins (including nafcillin), combinations of penicillins and beta lactamase inhibitors (eg amoxicillin clavulanic acid, ampicillin sulbactam, piperacillin tazobactam), cephalosporins, and all carbapenems (eg meropenem and imipenem). (mecA gene product present). Ceftaroline may be active in some cases. Staphylococcus aureus is a life threatening infection when found in the blood. It should NOT be considered a contaminant. Staphylococcus aureus bacteremia should be treated with IV antibiotics. Infectious Disease consultation is encouraged. Blood VENOUS BLOOD / Unknown Venipuncture / Unknown 05/30/2024 14:10 EST 05/30/2024 14:52 EST Narrative Organism Antibiotic Method Susceptibility Methicillin-Resistant Staphylococcus aureus Cefazolin VITEK SUSCEPTIBILITY Deduced Resistant Methicillin-Resistant Staphylococcus aureus Daptomycin VITEK SUSCEPTIBILITY 0.25 ug/mL: Susceptible Methicillin-Resistant Staphylococcus aureus Oxacillin VITEK SUSCEPTIBILITY >=4 ug/mL: Resistant Methicillin-Resistant Staphylococcus aureus Vancomycin VITEK SUSCEPTIBILITY <=0.5 ug/mL: Susceptible Meaghan Zapata MD MICROBIOLOGY - GENERAL ORDERABLES Final Result Performing Organization Address City/[facility]/ZIP Co de Phone Number [facility] [address] [place] [phone] * BACTERIAL CULTURE, BLOOD (05/30/2024 14:05 EST) Organism ID No Growth at 5 days 06/04/2024 15:01 EST [facility] Blood VENOUS BLOOD / Unknown Venipuncture / Unknown 05/30/2024 14:05 EST 05/30/2024 14:53 EST Meaghan Zapata MD MICROBIOLOGY - GENERAL ORDERABLES Final Result Performing Organization Address City/[facility]/ZIP Co de Phone Number [facility] [address] [place] [address] * FERRITIN (05/30/2024 7:34 EST) Pathologist [facility] Ferritin 143 22 - 322 ng/mL 05/31/2024 10:36 EST [facility] Blood VENOUS BLOOD / Unknown Venipuncture / Unknown 05/30/2024 7:34 EST 05/30/2024 8:01 EST us Meaghan Zapata MD CHEMISTRY & BLOOD GAS ORDERABLES Final Result Performing Organization Address [facility] de Phone Number [facility] [address] [place] [phone] * (ABNORMAL) TRANSFERRIN SATURATION (05/30/2024 7:34 EST) Pathologist [facility] Iron 40(L) 49 - 181 ??g/dL 05/31/2024 9:05 EST [facility] Iron Binding Capacity 237(L) 240 - 450 ??g/dL 05/31/2024 9:05 [facility] Transferrin Saturation 17 15 - 45 % 05/31/2024 9:05 EST [facility] Blood VENOUS BLOOD / Unknown Venipuncture / Unknown 05/30/2024 7:34 EST 05/30/2024 8:01 EST us Meaghan Zapata MD CHEMISTRY & BLOOD GAS ORDERABLES Final Result Performing Organization Address City/[facility]/ZIP Co de Phone Number [facility] [address] [place] [address] * (ABNORMAL) BASIC METABOLIC PANEL (BMP) (05/30/2024 7:34 EST) Sodium 137 136 - 145 mmol/L 05/30/2024 8:42 [facility] Potassium 4.6 3.5 - 5.0 mmol/L 05/30/2024 8:42 [facility] Chloride 103 96 - 110 mmol/L 05/30/2024 8:42 [facility] CO2 Total 25 22 - 32 mmol/L 05/30/2024 8:42 [facility] Anion Gap 9 5 - 14 mmol/L 05/30/2024 8:42 [facility] Glucose 161(H) 70 - 99 mg/dl 05/30/2024 8:42 [facility] Calcium 9.2 8.5 - 10.5 mg/dL 05/30/2024 8:42 [facility] BUN 17 10 - 26 mg/dL 05/30/2024 8:42 [facility] Creatinine 0.70 0.66 - 1.25 mg/dL 05/30/2024 8:42 [facility] eGFR 117 >60 mL/min/1.73 m2 05/30/2024 8:42 [facility] Blood VENOUS BLOOD / Unknown Venipuncture / Unknown 05/30/2024 7:34 EST 05/30/2024 8:01 EST us Martha Syed MD MPH CHEMISTRY & BLOOD GAS O RDERABLES Final Result [facility] [address] [place] [address] * MAGNESIUM (05/30/2024 7:34 EST) Magnesium 2.2 1.7 - 2.8 mg/dL 05/30/2024 8:42 [facility] Blood VENOUS BLOOD / Unknown Venipuncture / Unknown 05/30/2024 7:34 EST 05/30/2024 8:01 EST Taj Parsons DO CHEMISTRY & BLOOD GAS ORDERABLES Final Result [facility] [address] [place] [address] * (ABNORMAL) COMPLETE BLOOD COUNT (05/30/2024 7:34 EST) WBC 6.24 4.00 - 10.40 K/cmm 05/30/2024 8:18 [facility] RBC 3.97(L) 4.36 - 5.78 M/cmm 05/30/2024 8:18 [facility] Hemoglobin 10.7(L) 13.8 - 17.3 g/dL 05/30/2024 8:18 [facility] HCT 31.2(L) 39.5 - 50.2 % 05/30/2024 8:18 [facility] MCV 79(L) 81 - 95 fL 05/30/2024 8:18 [facility] MCH 27.0(L) 27.6 - 33.0 pg 05/30/2024 8:18 [facility] MCHC 34.3 32.8 - 36.4 g/dL 05/30/2024 8:18 [facility] RDW-CV 15.0(H) <14.2 % 05/30/2024 8:18 [facility] RDW-SD 43.1 <46.0 fl 05/30/2024 8:18 [facility] PLT 251 141 - 377 K/cmm 05/30/2024 8:18 [facility] MPV 10.4 9.5 - 12.7 fL 05/30/2024 8:18 [facility] Blood VENOUS BLOOD / Unknown Venipuncture / Unknown 05/30/2024 7:34 EST 05/30/2024 7:59 EST us Taj Parsons DO HEMATOLOGY & PF4 ORDERABLES Tia clarke Result [facility] [address] [place] [address] * TRANSESOPHAGEAL ECHO (MARIBEL) COMPLETE NO CONTRAST [...] Details This study was interpreted by [facility]. Pertinent images and digital data are archived for permanent storage and are available for subsequent review. During the study the esophageal view was captured. The probe was inserted by the welding machine operator thermit. Images were obtained using cardiac ultrasound machine EPIQ #21. There was minimal probe insertion difficulty. Patient was given consious sedation. Image quality was good. The transesophageal probe was removed. Study completion: The patient tolerated the procedure well. No blood loss or specimens removed during the procedure. There were no complications. Martha Syed MD MPH CARDIAC ECHO ORDERABLES Final Result * (ABNORMAL) BACTERIAL CULTURE, BLOOD (05/29/2024 12:17 EST) Organism ID Methicillin-Resi stant Staphylococcus aureus(AA) VITEK SUSCEPTIBILITY 4 8:12 EST [facility] Comment: Detected at 18 hours Resistant to all penicillins (including nafcillin), combinations of penicillins and beta lactamase inhibitors (eg amoxicillin clavulanic acid, ampicillin sulbactam, piperacillin tazobactam), cephalosporins, and all carbapenems (eg meropenem and imipenem). (mecA gene product present). Ceftaroline may be active in some cases. Staphylococcus aureus is a life threatening infection when found in the blood. It should NOT be considered a contaminant. Staphylococcus aureus bacteremia should be treated with IV antibiotics. Infectious Disease consultation is encouraged. Blood VENOUS BLOOD / Unknown Venipuncture / Unknown 05/29/2024 12:17 EST 05/29/2024 12:24 EST Narrative Organism Antibiotic Method Susceptibility Methicillin-Resistant Staphylococcus aureus Cefazolin VITEK SUSCEPTIBILITY Deduced Resistant Methicillin-Resistant Staphylococcus aureus Daptomycin VITEK SUSCEPTIBILITY 1 ug/mL: Susceptible Methicillin-Resistant Staphylococcus aureus Oxacillin VITEK SUSCEPTIBILITY >=4 ug/mL: Resistant Methicillin-Resistant Staphylococcus aureus Vancomycin VITEK SUSCEPTIBILITY <=0.5 ug/mL: Susceptible Meaghan Zapata MD MICROBIOLOGY - GENERAL ORDERABLES Final Result Performing Organization Address City/[facility]/ZIP Co de Phone Number [facility] [address] [place] [address] * BACTERIAL CULTURE, BLOOD (05/29/2024 12:16 EST) Organism ID No Growth at 5 days 06/03/2024 12:31 [facility] Blood VENOUS BLOOD / Unknown Venipuncture / Unknown 05/29/2024 12:16 EST 05/29/2024 12:24 EST Meaghan Zapata MD MICROBIOLOGY - GENERAL ORDERABLES Final Result Performing Organization Address [facility] Co de Phone Number [facility] [address] [place] [address] * (ABNORMAL) BASIC METABOLIC PANEL (BMP) (05/29/2024 12:16 EST) Sodium 137 136 - 145 mmol/L 05/29/2024 13:11 [facility] Potassium 4.5 3.5 - 5.0 mmol/L 05/29/2024 13:11 [facility] Chloride 104 96 - 110 mmol/L 05/29/2024 13:11 [facility] CO2 Total 23 22 - 32 mmol/L 05/29/2024 13:11 [facility] Anion Gap 10 5 - 14 mmol/L 05/29/2024 13:11 [facility] Glucose 91 70 - 99 mg/dl 05/29/2024 13:11 [facility] Calcium 9.1 8.5 - 10.5 mg/dL 05/29/2024 13:11 [facility] BUN 10 10 - 26 mg/dL 05/29/2024 13:11 [facility] Creatinine 0.60(L) 0.66 - 1.25 mg/dL 05/29/2024 13:11 [facility] eGFR 122 >60 mL/min/1.73 m2 05/29/2024 13:11 [facility] Blood VENOUS BLOOD / Unknown Venipuncture / Unknown 05/29/2024 12:16 EST 05/29/2024 12:36 EST Martha Syed MD MPH CHEMISTRY & BLOOD GAS O RDERABLES Final Result Performing Organization Address City/[facility]/ZIP Co de Phone Number [facility] [address] [place] [address] * MAGNESIUM (05/29/2024 12:16 EST) Magnesium 2.2 1.7 - 2.8 mg/dL 05/29/2024 13:11 [facility] Blood VENOUS BLOOD / Unknown Venipuncture / Unknown 05/29/2024 12:16 EST 05/29/2024 12:36 EST Taj Parsons DO CHEMISTRY & BLOOD GAS ORDERABLES Final Result Performing Organization Address City/[facility]/ZIP Co de Phone Number [facility] [address] [place] [address] * (ABNORMAL) COMPLETE BLOOD COUNT (05/29/2024 12:16 EST) WBC 6.69 4.00 - 10.40 K/cmm 05/29/2024 12:44 [facility] RBC 4.13(L) 4.36 - 5.78 M/cmm 05/29/2024 12:44 [facility] Hemoglobin 11.1(L) 13.8 - 17.3 g/dL 05/29/2024 12:44 [facility] HCT 32.3(L) 39.5 - 50.2 % 05/29/2024 12:44 [facility] MCV 78(L) 81 - 95 fL 05/29/2024 12:44 [facility] MCH 26.9(L) 27.6 - 33.0 pg 05/29/2024 12:44 [facility] MCHC 34.4 32.8 - 36.4 g/dL 05/29/2024 12:44 EST [facility] RDW-CV 15.2(H) <14.2 % 05/29/2024 12:44 [facility] RDW-SD 42.8 <46.0 fl 05/29/2024 12:44 [facility] PLT 205 141 - 377 K/cmm 05/29/2024 12:44 [facility] MPV 10.3 9.5 - 12.7 fL 05/29/2024 12:44 EST [facility] Blood VENOUS BLOOD / Unknown Venipuncture / Unknown 05/29/2024 12:16 EST 05/29/2024 12:36 EST us Taj Parsons DO HEMATOLOGY & PF4 ORDERABLES Tia l Result Performing Organization Address [facility] de Phone Number [facility] [address] [place] [address] * HIV 1 RNA QUANTITATION (05/28/2024 13:26 EST) HIV RNA Detection, Qual Undetected Undetected copies/mL 05/29/2024 12:31 EST [facility] Blood VENOUS BLOOD / Unknown Venipuncture / Unknown 05/28/2024 13:26 EST 05/28/2024 13:32 EST Narrative [facility] - 05/29/2024 12:31 EST The quantification range of this assay is 20 IU/mL to 10,000,000 IU/mL. ??Testing was performed using the John HIV test ([employer] with the john [id number] System. us Martha Syed MD MPH CHEMISTRY & BLOOD GAS O RDERABLES Final Result Performing Organization Address [facility] Co de Phone Number [facility] [address] [place] [address] * XR ENTIRE SPINE 2-3 VIEWS (05/28/2024 8:42 EST) Anatomical Region Laterality Modality Spine Computed Radiogr aphy 05/28/2024 12:1 7 EST Impressions 05/28/2024 12:17 EST No significant malalignment evident. [id number] Narrative 05/28/2024 12:17 EST XR ENTIRE SPINE [...] pleural effusions are evident. Resulting Agency Comment [id number] Procedure Note Moe Martin MD - 05/28/2024 [...] effusions areevident. IMPRESSION No significant malalignment evident. [id number] us Martha Syed MD MPH IMG DIAGNOSTIC IMAGING ORDERABLES Final Result * CT ABDOMEN PELVIS W CONTRAST (05/28/2024 8:33 EST) Anatomical Region Laterality Modality Body, Abdomen, Pelvis, Abdomen and Pelvis Computed Tomography 05/28/2024 12:1 0 EST Impressions 05/28/2024 12:10 EST 1. No embolic findings. Normal enhancement of the kidneys and spleen. 2. Splenomegaly. 3. Mild extrahepatic biliary dilation measuring up to 7 mm. Correlate with LFTs. [id number] Narrative 05/28/2024 12:[address] ABDOMEN PELVIS [...] osseous abnormality. Limbus vertebral body at L3. Cash Reconciliation Specialist: No additional finding Resulting Agency Comment [id number] Procedure Note Trupti Alvarez MD - 05/28/2024 [...] aggressive osseous abnormality. Limbusvertebral body at L3. Cash Reconciliation Specialist: No additional finding IMPRESSION 1. No embolic findings. Normal enhancement of the kidneys and spleen. 2. Splenomegaly. 3. Mild extrahepatic biliary dilation measuring up to 7 mm. Correlate withLFTs. [id number] us Martha Syed MD MPH IMG CT ORDERABLES Final Result * CT CHEST W CONTRAST (05/28/2024 8:33 EST) Anatomical Region Laterality Modality Chest Computed Tomogra phy 05/28/2024 12:1 4 EST Impressions 05/28/2024 12:14 EST Trace bilateral pleural effusions with associated passive atelectasis. [id number] Narrative 05/28/2024 12:[address] CHEST W [...] in the bones. ?? Resulting Agency Comment [id number] Procedure Note Trupti Alvarez MD - 05/28/2024 [...] bilateral pleural effusions with associated passive atelectasis. [id number] us Martha Syed MD MPH IMG CT ORDERABLES Final Result * (ABNORMAL) HEPATIC FUNCTION PANEL (ALB,ALK PHOS,ALT,AST,DBIL,TOT STEPHANY,TOT PROT) (05/28/2024 6:54 EST) Total Protein 7.0 6.3 - 8.2 g/dL 05/29/2024 8:38 [facility] Albumin 3.2(L) 3.4 - 4.9 g/dL 05/29/2024 8:38 [facility] Bilirubin, Total <0.5 <1.4 mg/dL 05/29/20 24 8:38 [facility] Conjugated Bilirubin 0.0 <=0.3 mg/dL 05/29/2024 8:38 [facility] Unconjugated Bilirubin 0.3 <=1.1 mg/dL 05/29/2024 8:38 [facility] Alkaline Phosphatase 53 38 - 126 U/L 05/29/2024 8:38 [facility] ALT 12 <50 U/L 05/29/2024 8:38 [facility] AST 18 15 - 46 U/L 05/29/2024 8:38 [facility] Calculated Total Bilirubin 0.3 <1.4 mg/dL 05/29/2024 8:38 [facility] Blood VENOUS BLOOD / Unknown Venipuncture / Unknown 05/28/2024 6:54 EST 05/28/2024 7:18 EST us Meaghan Zapata MD CHEMISTRY & BLOOD GAS ORDERABLES Final Result Performing Organization Address City/[facility]/ZIP Co de Phone Number [facility] [address] [place] [address] * CK (05/28/2024 6:54 EST) CK 28 <=250 U/L 05/28/2024 14:02 [facility] Blood VENOUS BLOOD / Unknown Venipuncture / Unknown 05/28/2024 6:54 EST 05/28/2024 7:18 EST us Martha Syed MD MPH CHEMISTRY & BLOOD GAS O RDERABLES Final Result Performing Organization Address City/[facility]/ZIP Co de Phone Number [facility] [address] [place] [address] * (ABNORMAL) BASIC METABOLIC PANEL (BMP) (05/28/2024 6:54 EST) Sodium 137 136 - 145 mmol/L 05/28/2024 7:58 [facility] Potassium 4.1 3.5 - 5.0 mmol/L 05/28/2024 7:58 [facility] Chloride 104 96 - 110 mmol/L 05/28/2024 7:58 [facility] CO2 Total 23 22 - 32 mmol/L 05/28/2024 7:58 [facility] Anion Gap 10 5 - 14 mmol/L 05/28/2024 7:58 [facility] Glucose 133(H) 70 - 99 mg/dl 05/28/2024 7:58 [facility] Calcium 9.0 8.5 - 10.5 mg/dL 05/28/2024 7:58 [facility] BUN 8(L) 10 - 26 mg/dL 05/28/2024 7:58 [facility] Creatinine 0.61(L) 0.66 - 1.25 mg/dL 05/28/2024 7:58 [facility] eGFR 121 >60 mL/min/1.73 m2 05/28/2024 7:58 [facility] Blood VENOUS BLOOD / Unknown Venipuncture / Unknown 05/28/2024 6:54 EST 05/28/2024 7:18 EST Taj Parsons CHEMISTRY & BLOOD GAS ORDERABLES Final Result Performing Organization Address City/[facility]/ZIP Co de Phone Number [facility] [address] [place] [address] * MAGNESIUM (05/28/2024 6:54 EST) Pathologist [facility] Magnesium 2.0 1.7 - 2.8 mg/dL 05/28/2024 7:58 [facility] Blood VENOUS BLOOD / Unknown Venipuncture / Unknown 05/28/2024 6:54 EST 05/28/2024 7:18 EST us Taj Parsons CHEMISTRY & BLOOD GAS ORDERABLES Final Result Performing Organization Address City/[facility]/ZIP Co de Phone Number [facility] [address] [place] [address] * (ABNORMAL) COMPLETE BLOOD COUNT (05/28/2024 6:54 EST) WBC 6.63 4.00 - 10.40 K/cmm 05/28/2024 7:22 [facility] RBC 3.75(L) 4.36 - 5.78 M/cmm 05/28/2024 7:22 [facility] Hemoglobin 10.1(L) 13.8 - 17.3 g/dL 05/28/2024 7:22 [facility] HCT 29.2(L) 39.5 - 50.2 % 05/28/2024 7:22 [facility] MCV 78(L) 81 - 95 fL 05/28/2024 7:22 [facility] MCH 26.9(L) 27.6 - 33.0 pg 05/28/2024 7:22 [facility] MCHC 34.6 32.8 - 36.4 g/dL 05/28/2024 7:22 [facility] RDW-CV 15.3(H) <14.2 % 05/28/2024 7:22 [facility] RDW-SD 43.1 <46.0 fl 05/28/2024 7:22 [facility] PLT 281 141 - 377 K/cmm 05/28/2024 7:22 [facility] MPV 9.7 9.5 - 12.7 fL 05/28/2024 7:22 [facility] Blood VENOUS BLOOD / Unknown Venipuncture / Unknown 05/28/2024 6:54 EST 05/28/2024 7:15 EST Taj Parsons DO HEMATOLOGY & PF4 ORDERABLES Tia clarke Result Performing Organization Address City/State/[facility] Co de Phone Number [facility] [address] [place] [address] * (ABNORMAL) BACTERIAL CULTURE, BLOOD (05/27/2024 22:58 EST) Organism ID Methicillin-Resi stant Staphylococcus aureus(AA) VITEK SUSCEPTIBILITY 4 9:26 [facility] Comment: Detected at 15 hours Resistant to all penicillins (including nafcillin), combinations of penicillins and beta lactamase inhibitors (eg amoxicillin clavulanic acid, ampicillin sulbactam, piperacillin tazobactam), cephalosporins, and all carbapenems (eg meropenem and imipenem). (mecA gene product present). Ceftaroline may be active in some cases. Staphylococcus aureus is a life threatening infection when found in the blood. It should NOT be considered a contaminant. Staphylococcus aureus bacteremia should be treated with IV antibiotics. Infectious Disease consultation is encouraged. Blood VENOUS BLOOD / Unknown Venipuncture / Unknown 05/27/2024 22:58 EST 05/27/2024 23:05 EST Narrative Organism Antibiotic Method Susceptibility Methicillin-Resistant Staphylococcus aureus Cefazolin VITEK SUSCEPTIBILITY Deduced Resistant Methicillin-Resistant Staphylococcus aureus Ceftaroline VITEK SUSCEPTIBILITY 0.5 ug/mL: Susceptible Methicillin-Resistant Staphylococcus aureus Daptomycin VITEK SUSCEPTIBILITY 0.25 ug/mL: Susceptible Methicillin-Resistant Staphylococcus aureus Oxacillin VITEK SUSCEPTIBILITY >=4 ug/mL: Resistant Methicillin-Resistant Staphylococcus aureus Vancomycin VITEK SUSCEPTIBILITY 1 ug/mL: Susceptible us Martha Syed MD MPH MICROBIOLOGY - GENERAL ORDERABLES Final Result Performing Organization Address City/[facility] Co de Phone Number [facility] [address] [place] [address] * (ABNORMAL) BACTERIAL CULTURE, BLOOD (05/27/2024 22:04 EST) Pathologist [facility] Organism ID Methicillin-Resis tant Staphylococcus aureus(AA) 05/31/2024 10:04 EST [facility] Comment: Detected at 15 hours Resistant to all penicillins (including nafcillin), combinations of penicillins and beta lactamase inhibitors (eg amoxicillin clavulanic acid, ampicillin sulbactam, piperacillin tazobactam), cephalosporins, and all carbapenems (eg meropenem and imipenem). (mecA gene product present). Ceftaroline may be active in some cases. [place] morphology consistent with other culture from same site/ source collected on the same day. Staphylococcus aureus is a life threatening infection when found in the blood. It should NOT be considered a contaminant. Staphylococcus aureus bacteremia should be treated with IV antibiotics. Infectious Disease consultation is encouraged. Blood VENOUS BLOOD / Unknown Venipuncture / Unknown 05/27/2024 22:04 EST 05/27/2024 22:26 EST us Martha Syed MD MPH MICROBIOLOGY - GENERAL ORDERABLES Final Result Performing Organization Address [facility]/ZIP Co de Phone Number [facility] [address] [place] [id number] * EKG 12-LEAD (05/27/2024 8:31 EST) 05/27/2024 8:31 EST Narrative [facility] EKG - 06/05/2024 8:18 EST ? [facility] ? Test Date: ?2024-05-27 Pat Name: ? MARCOS CAMEJO ?Department: ?? [place] [address] ? Room: ? XI8397 Gender: ? Male ? Automatic Buffer: ?? [id number] : ?1980 ? Requested By: MARCI MENDOZA Order Number: [id number] ? Dinorah PEREZ: ?? BROOKS GEORGE MD ? Measurements Intervals ?[place] ? Rate: ? 66 ? P: ?34 CO: ? 166 ?QRS: ?53 QRSD: ? 106 ?T: ?45 QT: ? 403 ? QTc: ?422 ? Interpretive Statements SINUS RHYTHM WITH SINUS ARRHYTHMIA Compared to ECG 02/02/2020 00:14:58 Sinus tachycardia no longer present I reviewed the tracing and have either agreed or edited the findings in this report. Electronically Signed On 06-05-2024 08:18:09 EST by BROOKS GEORGE MD. Procedure Note Brooks George MD - 06/05/2024 [facility] Test Date: 2024-05-27 Pat Name: MARCOS CAMEJO Department: [place] [address] Room: [facility] Gender: Male Automatic Buffer: [id number] : 1980 Requested By: MARCI MENDOZA Order Number: [id number] Dinorah MD: BROOKS GEORGE MD Measurements Intervals [place] Rate: 66 P: 34 CO: 166 QRS: 53 QRSD: 106 T: 45 QT: 403 QTc: 422 Interpretive Statements SINUS RHYTHM WITH SINUS ARRHYTHMIA Compared to ECG 02/02/2020 00:14:58 Sinus tachycardia no longer present I reviewed the tracing and have either agreed or edited the findings inthis report. Electronically Signed On 06-05-2024 08:18:09 EST by BROOKS MARIN. us Martha Syed MD MPH CARDIAC ECG ORDERABLES Final Result Performing Organization Address City/State/[facility] Co de Phone Number [facility] EKG * (ABNORMAL) HEMOGLOBIN A1C (05/27/2024 7:23 EST) [facility] Hemoglobin A1c 6.2(H) <5.7 % 05/28/2024 8:23 EST [facility] Comment: Glycemic Status References: Normal: ??<5.7% Pre-Diabetes: ??5.7% - 6.4% Diagnostic of Diabetes: ??> or = 6.5% (if confirmed) Est Avg Glucose 131 mg/dL 8:23 EST [facility] Comment:The eAG represents t he A1c result expressed as average glucose in mg/dL. Blood VENOUS BLOOD / Unknown Venipuncture / Unknown 05/27/2024 7:23 EST 05/27/2024 7:35 EST us Martha Syed MD MPH CHEMISTRY & BLOOD GAS O RDERABLES Final Result Performing Organization Address [facility] Co de Phone Number [facility] [address] [place] [address] * HN LAB CBC SMEAR REVIEW (05/27/2024 7:23 EST) [facility] Differential Comment Slide was examined by a technologist to verify the WBC and/or platelet count. 05/27/2024 8:12 EST [facility] Blood VENOUS BLOOD / Unknown Venipuncture / Unknown 05/27/2024 7:23 EST 05/27/2024 7:35 EST us Taj Parsons DO HEMATOLOGY & PF4 ORDERABLES Tia l Result Performing Organization Address [facility] Co de Phone Number [facility] [address] [place] [address] * (ABNORMAL) BASIC METABOLIC PANEL (BMP) (05/27/2024 7:23 EST) Sodium 135(L) 136 - 145 mmol/L 05/27/2024 7:53 [facility] Potassium 4.0 3.5 - 5.0 mmol/L 05/27/2024 7:53 [facility] Chloride 104 96 - 110 mmol/L 05/27/2024 7:53 [facility] CO2 Total 25 22 - 32 mmol/L 05/27/2024 7:53 [facility] Anion Gap 6 5 - 14 mmol/L 05/27/2024 7:53 [facility] Glucose 126(H) 70 - 99 mg/dl 05/27/2024 7:53 [facility] Calcium 8.7 8.5 - 10.5 mg/dL 05/27/2024 7:53 [facility] BUN 14 10 - 26 mg/dL 05/27/2024 7:53 [facility] Creatinine 0.61(L) 0.66 - 1.25 mg/dL 05/27/2024 7:53 [facility] eGFR 121 >60 mL/min/1.73 m2 05/27/2024 7:53 [facility] Blood VENOUS BLOOD / Unknown Venipuncture / Unknown 05/27/2024 7:23 EST 05/27/2024 7:35 EST Taj Parsons DO CHEMISTRY & BLOOD GAS ORDERABLES Final Result Performing Organization Address City/State/[facility] Co de Phone Number [facility] [address] [place] [id number] * MAGNESIUM (05/27/2024 7:23 EST) Magnesium 2.1 1.7 - 2.8 mg/dL 05/27/2024 7:53 [facility] SERVICES Blood VENOUS BLOOD / Unknown Venipuncture / Unknown 05/27/2024 7:23 EST 05/27/2024 7:35 EST us Taj Parsons DO CHEMISTRY & BLOOD GAS ORDERABLES Final Result Performing Organization Address City/[facility]/ZIP Co de Phone Number [facility] [address], [place] [id number] * (ABNORMAL) COMPLETE BLOOD COUNT (05/27/2024 7:23 EST) WBC 6.01 4.00 - 10.40 K/cmm 05/27/2024 8:12 [facility] RBC 4.04(L) 4.36 - 5.78 M/cmm 05/27/2024 8:12 [facility] Hemoglobin 10.9(L) 13.8 - 17.3 g/dL 05/27/2024 8:12 [facility] HCT 32.4(L) 39.5 - 50.2 % 05/27/2024 8:12 [facility] MCV 80(L) 81 - 95 fL 05/27/2024 8:12 [facility] MCH 27.0(L) 27.6 - 33.0 pg 05/27/2024 8:12 [facility] MCHC 33.6 32.8 - 36.4 g/dL 05/27/2024 8:12 [facility] RDW-CV 15.7(H) <14.2 % 05/27/2024 8:12 [facility] RDW-SD 46.3(H) <46.0 fl 05/27/2024 8:12 [facility] PLT 05/27/2024 8:12 [facility] Comment:Unreportable due to presence of platelet clumps. MPV 05/27/2024 8:12 [facility] Comment:Unreportable due to presence of platelet clumps. Blood VENOUS BLOOD / Unknown Venipuncture / Unknown 05/27/2024 7:23 EST 05/27/2024 7:35 EST us Taj Parsons DO HEMATOLOGY & PF4 ORDERABLES Tia l Result [facility] [address] [place] [id number] * TRANSTHORACIC ECHO (TTE) COMPLETE W/DOPPLER W/CF [...] color Doppler.The study was interpreted by [facility]. Pertinent images and [...] CARDIAC ECHO ORDERABLES Final Re sult * (ABNORMAL) BACTERIAL CULTURE, BLOOD (2024 14:34 EST) Organism ID Methicillin-Resis tant Staphylococcus aureus(AA) 05/29/2024 10:03 EST [facility] Comment: Detected at 14.5 hours. Resistant to all penicillins (including nafcillin), combinations of penicillins and beta lactamase inhibitors (eg amoxicillin clavulanic acid, ampicillin sulbactam, piperacillin tazobactam), cephalosporins, and all carbapenems (eg meropenem and imipenem). (mecA gene product present). Ceftaroline may be active in some cases. [place] morphology consistent with other culture from same site/ source collected on the same day. Staphylococcus aureus is a life threatening infection when found in the blood. It should NOT be considered a contaminant. Staphylococcus aureus bacteremia should be treated with IV antibiotics. Infectious Disease consultation is encouraged. Blood VENOUS BLOOD / Unknown Venipuncture / Unknown 2024 14:34 EST 2024 14:45 EST Taj Parsons DO MICROBIOLOGY - GENERAL ORDERABLE S Final Result [facility] [address] [place] [address] * (ABNORMAL) BACTERIAL CULTURE, BLOOD (2024 14:33 EST) [facility] Organism ID Methicillin-Resi stant Staphylococcus aureus(AA) VITEK SUSCEPTIBILITY 4 10:03 EST [facility] Comment: Detected at 14 hours. Resistant to all penicillins (including nafcillin), combinations of penicillins and beta lactamase inhibitors (eg amoxicillin clavulanic acid, ampicillin sulbactam, piperacillin tazobactam), cephalosporins, and all carbapenems (eg meropenem and imipenem). (mecA gene product present). Ceftaroline may be active in some cases. Specimen tested for 12 gram positive organism identification targets and 3 antibiotic resistance determinant targets, by micro array technology. Staphylococcus aureus is a life threatening infection when found in the blood. It should NOT be considered a contaminant. Staphylococcus aureus bacteremia should be treated with IV antibiotics. Infectious Disease consultation is encouraged. Blood VENOUS BLOOD / Unknown Venipuncture / Unknown 2024 14:33 EST 2024 14:45 EST Narrative Organism Antibiotic Method Susceptibility Methicillin-Resistant Staphylococcus aureus Cefazolin VITEK SUSCEPTIBILITY Deduced Resistant Methicillin-Resistant Staphylococcus aureus Ceftaroline VITEK SUSCEPTIBILITY 0.5 ug/mL: Susceptible Methicillin-Resistant Staphylococcus aureus Daptomycin VITEK SUSCEPTIBILITY 0.5 ug/mL: Susceptible Methicillin-Resistant Staphylococcus aureus Oxacillin VITEK SUSCEPTIBILITY >=4 ug/mL: Resistant Methicillin-Resistant Staphylococcus aureus Vancomycin VITEK SUSCEPTIBILITY 1 ug/mL: Susceptible Taj Parsons DO MICROBIOLOGY - GENERAL ORDERABLE S Final Result [facility] [address] [place] [address] * (ABNORMAL) COMPREHENSIVE METABOLIC PANEL (CMP) (2024 14:32 EST) Sodium 137 136 - 145 mmol/L 2024 15:03 [facility] Potassium 4.1 3.5 - 5.0 mmol/L 2024 15:03 [facility] Chloride 100 96 - 110 mmol/L 2024 15:03 [facility] CO2 Total 26 22 - 32 mmol/L 2024 15:03 [facility] Glucose 157(H) 70 - 99 mg/dl 2024 15:03 [facility] BUN 11 10 - 26 mg/dL 2024 15:03 [facility] Creatinine 0.66 0.66 - 1.25 mg/dL 2024 15:03 [facility] eGFR 119 >60 mL/min/1.7 3m2 2024 15:03 [facility] Total Protein 7.9 6.3 - 8.2 g/dL 2024 15:03 [facility] Albumin 3.9 3.4 - 4.9 g/dL 2024 15:03 [facility] Alkaline Phosphatase 58 38 - 126 U/L 2024 15:03 [facility] AST 21 15 - 46 U/L 2024 15:03 [facility] ALT 16 <50 U/L 2024 15:03 [facility] Bilirubin, Total <0.5 <1.4 mg/dL 05/26/20 15:03 EST [facility] Calcium 9.3 8.5 - 10.5 mg/dL 2024 15:03 [facility] Albumin/Globulin Ratio 1.0 1.0 - 2.5 2024 15:03 [facility] Anion Gap 11 5 - 14 mmol/L 2024 15:03 [facility] Blood VENOUS BLOOD / Unknown Venipuncture / Unknown 2024 14:32 EST 2024 14:42 EST Taj Parsons CHEMISTRY & BLOOD GAS ORDERABLES Final Result Performing Organization Address [facility] Co de Phone Number [facility] [address] [place] [address] * PROCALCITONIN (2024 14:32 EST) Pathologist [facility] Procalcitonin 0.30 See Note ng/mL 2024 16:02 EST [facility] Comment: NOTE: Reference Range: <0.5 ng/mL - Low risk of severe sepsis >2.0 ng/mL - High risk of severe sepsis Blood VENOUS BLOOD / Unknown Venipuncture / Unknown 2024 14:32 EST 2024 14:42 EST Taj Parsons CHEMISTRY & BLOOD GAS ORDERABLES Final Result Performing Organization Address [facility]/ZIP Co de Phone Number [facility] [address] [place] [address] * (ABNORMAL) SED RATE (2024 14:32 EST) Sed Rate 61(H) 0 - 15 mm/hr 2024 15:41 EST [facility] Blood VENOUS BLOOD / Unknown Venipuncture / Unknown 2024 14:32 EST 2024 14:42 EST Taj Parsons DO HEMATOLOGY & PF4 ORDERABLES Tia l Result Performing Organization Address City/[facility]/ZIP Co de Phone Number [facility] [address] [place] [address] * (ABNORMAL) C REACTIVE PROTEIN (2024 14:32 EST) Pathologist [facility] C-Reactive Protein 210.7(H) <10.0 mg/L 2024 15:17 [facility] Blood VENOUS BLOOD / Unknown Venipuncture / Unknown 2024 14:32 EST 2024 14:42 EST us Taj Parsons DO CHEMISTRY & BLOOD GAS ORDERABLES Final Result Performing Organization Address [facility] de Phone Number [facility] [address] [place] [address] * (ABNORMAL) COMPLETE BLOOD COUNT AND DIFFERENTIAL (2024 14:32 EST) Pathologist [facility] WBC 6.66 4.00 - 10.40 K/cmm 2024 15:01 [facility] RBC 4.27(L) 4.36 - 5.78 M/cmm 2024 15:01 [facility] Hemoglobin 11.7(L) 13.8 - 17.3 g/dL 2024 15:01 [facility] HCT 34.3(L) 39.5 - 50.2 % 2024 15:01 [facility] MCV 80(L) 81 - 95 fL 2024 15:01 [facility] MCH 27.4(L) 27.6 - 33.0 pg 2024 15:01 [facility] MCHC 34.1 32.8 - 36.4 g/dL 2024 15:01 [facility] RDW-CV 15.9(H) <14.2 % 2024 15:01 [facility] RDW-SD 46.5(H) <46.0 fl 2024 15:01 [facility] PLT 277 141 - 377 K/cmm 2024 15:01 [facility] MPV 10.1 9.5 - 12.7 fL 2024 15:01 [facility] % Neutrophils 60.1 Not Indicated % 2024 15:01 [facility] % Lymphocytes 29.9 Not Indicated % 2024 15:01 [facility] % Monocytes 7.7 Not Indicated % 2024 15:01 [facility] % Eosinophils 1.4 Not Indicated % 2024 15:01 [facility] % Basophils 0.3 Not Indicated % 2024 15:01 [facility] % Immature Grans 0.6 Not Indicated % 2024 15:01 [facility] Absolute Neutrophils 4.01 2.20 - 8.85 K/cmm 2024 15:01 [facility] Absolute Lymphocytes 1.99 1.09 - 3.30 K/cmm 2024 15:01 [facility] Absolute Monocytes 0.51 0.10 - 0.80 K/cmm 2024 15:01 [facility] Absolute Eosinophils 0.09 0.03 - 0.61 K/cmm 2024 15:01 [facility] ABS Basophils 0.02 0.01 - 0.11 K/cmm 2024 15:01 [facility] Absolute Immature Grans 0.04 0.00 - 0.06 K/cmm 2024 15:01 [facility] Type of Differential: Auto 2024 15:01 [facility] Blood VENOUS BLOOD / Unknown Venipuncture / Unknown 2024 14:32 EST 2024 14:42 EST us Taj Parsons DO PACKAGES & DNA PROBE ORDERABLES Final Result [facility] [address] [place] [id number] * POCT US ED GUIDANCE PIV (2024 [...] POCT US ORDERABLES Final Res ult * CT OUTSIDE IMAGES ABDOMEN PELVIS (05/24/2024 9:24 EST) Narrative 2024 9:24 EST This is a non-reportable exam. us External Imaging IMG OTHER IMAGING ORDERABLES Fi nal Result * XR OUTSIDE IMAGES CHEST (05/24/2024 9:23 EST) Narrative 2024 9:23 EST This is a non-reportable exam. 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 MRSA bacteremia Bacteremia Sepsis due to methicillin resistant Staphylococcus aureus (MRSA) without acute organ dysfunction (HCC-CMS) Acute pain Other acute pain Opioid use disorder Anxiety Anxiety state, unspecified Mood disorder (HCC-CMS) Unspecified episodic mood disorder Iron deficiency anemia, unspecified iron deficiency anemia type Chronic hepatitis C without hepatic coma (HCC-CMS) Chronic hepatitis C without mention of hepatic coma Type 2 diabetes mellitus with hyperglycemia, without long-term current use of insulin (HCC-CMS) Discitis of thoracolumbar region Other and unspecified disc disorder of thoracic region 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 Sepsis due to methicillin resistant Staphylococcus aureus (MRSA) without acute organ dysfunction (HCC-CMS) Acute pain Other acute pain Opioid use disorder Anxiety Anxiety state, unspecified Iron deficiency anemia Iron deficiency anemia, unspecified Chronic hepatitis C without hepatic coma (HCC-CMS) Chronic hepatitis C without mention of hepatic coma Mood disorder (HCC-CMS) Unspecified episodic mood disorder Type 2 diabetes mellitus with hyperglycemia, without long-term current use of insulin (HCC-CMS) documented in this encounter Admitting Diagnoses Diagnosis MRSA bacteremia Bacteremia Discitis of thoracolumbar region Other and unspecified disc disorder of thoracic region documented in this encounter Administered Medications Active Administered Medications - up to 3 most recent administrations Medication Order MAR Action Action Date Dose Rate Site acetaminophen (TYLENOL) tablet 1,000 mg 1,000 mg, oral, EVERY 6 HOURS, First dose (after last modification) on Wed05/26/24 at 1800, Until Discontinued, Routine Given 07/02/2024 8:28 EST 1,000 mg Given 07/01/2024 21:05 EST 1,000 mg Given 07/01/2024 14:10 EST 1,000 mg alteplase (CATHFLO ACTIVASE) injection 2 mg 2 mg, intercatheter, PRN, Starting on Wed06/13/24 at 0717, Until Discontinued, Line Care, Routine Given 06/22/2024 8:03 EST 2 mg baclofen (LIORESAL) tablet 10 mg 10 mg, oral, 3 TIMES DAILY, First dose on Wed06/18/24 at 1500, Until Discontinued, Routine Given 07/02/2024 9:47 EST 10 mg Given 07/01/2024 21:05 EST 10 mg Given 07/01/2024 14:10 EST 10 mg bisacodyL (DULCOLAX) suppository 10 mg 10 mg, rectal, DAILY PRN, Starting on Wed05/26/24 at 1516, Until Discontinued, Constipation, Routine Given 06/04/2024 17:35 EST 10 mg Given 05/29/2024 22:17 EST 10 mg Given 05/27/2024 18:14 EST 10 mg buprenorphine-naloxone (SUBOXONE) 8-2 mg SUBLINGUAL TABLET 1 Tablet 1 Tablet, sublingual, AT BEDTIME, First dose (after last modification) on Wed06/27/24 at 2100, Until Discontinued, Routine Given 07/01/2024 21:05 EST 1 Tablet Given 06/30/2024 20:49 EST 1 Tablet Given 06/29/2024 21:45 EST 1 Tablet buprenorphine-naloxone (SUBOXONE) 8-2 mg SUBLINGUAL TABLET 2 Tablet 2 Tablet, sublingual, DAILY, First dose (after last modification) on Wed06/28/24 at 0900, Until Discontinued, Routine Given 07/02/2024 8:28 EST 2 Tablets Given 07/01/2024 9:12 EST 2 Tablets Given 06/30/2024 8:18 EST 2 Tablets ceftaroline fosamiL 600 mg in sodium chloride (NS) 0.9 % 50 mL IVPB 600 mg, intravenous, Administer over 60 Minutes, EVERY 8 HOURS, 56 doses, First dose (after last modification) on Wed06/18/24 at 1400, Last dose on Wed07/07/24 at 0900, Type of Therapy: Definitive, Based on Cultures, Suspected Indication (Select all that apply): MRSA bacteremia/endocarditis, Restricted Antimicrobial Has ID Approved? Yes, ID Provider Consulted: Aditya Jain MD, Routine Given 07/02/2024 8:29 EST 600 mg Given 07/02/2024 1:10 EST 600 mg Given 07/01/2024 17:19 EST 600 mg DAPTOmycin 850 mg in sodium chloride (NS) 0.9 % 50 mL IVPB 850 mg, intravenous, EVERY 24 HOURS, 12 doses, First dose (after last reorder) on 06/26/24 at 1830, Last dose on 07/07/24 at 2000, It is recommended to discontinue statins for the duration of daptomycin therapy due to increased risk of rhabdomyolysis. If the patient is on a statin (atorvastatin, simvastatin, rosuvastatin, etc.) - has it been discontinued? Yes, discontinued, Type of Therapy: Definitive, Based on Cultures, Suspected Indication (Select all that apply): Methicillin-resistant Staph aureus bacteremia, Controlled Antibiotic Has ID Approved? Yes, ID Provider Consulted: Олег Chilel MD, STAT New Bag 07/01/2024 21:05 EST 850 mg New Bag 06/30/2024 23:43 EST 850 mg New Bag 06/29/2024 17:59 EST 850 mg dextrose 50 % solution 12.5 g 12.5 g (25 mL), intravenous, PRN, Starting on 06/26/24 at 0937, Until Discontinued, Low Blood Sugar, Routine diclofenac sodium gel 2 g 2 g, topical, 2 TIMES DAILY PRN, Starting on 07/01/24 at 1305, Until Discontinued, Pain, Routine Given 07/02/20 8:32 EST 2 g Given 07/01/2024 14:10 EST 2 g enoxaparin (LOVENOX) injection 40 mg 40 mg, subcutaneous, DAILY, First dose on 05/27/24 at 0900, Until Discontinued, Routine Given 07/02/2024 8:29 EST 40 mg Given 07/01/2024 9:11 EST 40 mg Given 06/30/2024 8:18 EST 40 mg ferrous gluconate (FERGON) tablet 324 mg 324 mg, oral, EVERY MON, WED, WED, First dose on 07/03/24 at 0900, Until Discontinued, Routine gabapentin (NEURONTIN) capsule 400 mg 400 mg, oral, 3 TIMES DAILY, First dose (after last modification) on Shannan 06/15/24 at 1400, Until Discontinued, Routine Given 07/02/2024 8:29 EST 400 mg Given 07/01/2024 21:05 EST 400 mg Given 07/01/2024 13:11 EST 400 mg glucagon injection 1 mg 1 mg, intramuscular, As needed, Starting on Wed06/26/24 at 0937, Until Discontinued, Low Blood Sugar, Routine insulin aspart U-100 (NOVOLOG FLEXPEN) injection 0-11 Units 0-11 Units, subcutaneous, 3 TIMES DAILY WITH MEALS, First dose on 06/26/24 at 1200, Until Discontinued, Routine Given 07/01/2024 18:48 EST 3 Units Given 07/01/2024 9:11 EST 2 Units Given 06/30/2024 12:29 EST 5 Units ketOROLAC (TORADOL) injection 15 mg 15 mg, intravenous, 2 TIMES DAILY, 5 doses, First dose (after last modification) on 07/02/24 at 2100, Last dose on Wed07/04/24 at 2100, Routine lactulose (CHRONULAC) 20 gram/30 mL solution 30 mL 30 mL, oral, EVERY 6 HOURS PRN, Starting on Wed05/28/24 at 1345, Until Discontinued, Pain, Routine lidocaine (PF) 10 mg/mL (1 %) injection 5 mg 5 mg, intradermal, PRN, 2 doses, Starting on Wed06/13/24 at 0717, Until Discontinued, line placement, Routine Given 06/13/2024 18:21 EST 5 mg lidocaine 5 % (LIDODERM) patch 1 Patch 1 Patch, transdermal, Administer over 12 Hours, DAILY, First dose on 07/01/24 at 1315, Until Discontinued, Routine Patch Applied 07/02/2024 8:29 EST 1 Patch Back Patch Applied 07/01/2024 13:11 EST 1 Patch B ack LORazepam (ATIVAN) tablet 1 mg 1 mg, oral, 3 TIMES DAILY, First dose (after last modification) on Wed06/14/24 at 1315, Until Discontinued, Routine Given 07/02/2024 8:28 EST 1 mg Given 07/01/2024 21:05 EST 1 mg Given 07/01/2024 13:11 EST 1 mg metFORMIN (GLUCOPHAGE-XR) ER tablet 500 mg 500 mg, oral, 2 TIMES DAILY, First dose (after last modification) on Shannan 06/29/24 at 2100, Until Discontinued, Routine Given 07/02/2024 8:28 EST 500 mg Given 07/01/2024 21:05 EST 500 mg Given 07/01/2024 9:12 EST 500 mg naproxen (NAPROSYN) tablet 500 mg 500 mg, oral, 2 TIMES DAILY WITH BREAKFAST & DINNER, First dose (after last modification) on Wed07/05/24 at 0900, Until Discontinued, Routine pantoprazole (PROTONIX) tablet 20 mg 20 mg, oral, DAILY BEFORE BREAKFAST, First dose on Wed05/28/24 at 0700, Until Discontinued, Routine Given 06/28/2024 6:39 EST 20 mg Given 06/27/2024 9:59 EST 20 mg Given 06/26/2024 6:16 EST 20 mg polyethylene glycol 3350 (MIRALAX) packet 17 g 17 g, oral, 2 TIMES DAILY, First dose on Wed05/26/24 at 1430, Until Discontinued, Routine Given 06/10/2024 20:52 EST 1 7 g Given 06/09/2024 21:19 EST 17 g Given 06/05/2024 9:14 EST 17 g QUEtiapine (SEROQUEL) tablet 100 mg 100 mg, oral, AT BEDTIME, First dose on Wed05/26/24 at 2100, Until Discontinued, Routine Given 07/01/2024 21:05 EST 1 00 mg Given 06/30/2024 20:49 EST 100 mg Given 06/29/2024 21:45 EST 100 mg ramelteon (ROZEREM) tablet 8 mg 8 mg, oral, AT BEDTIME PRN, Starting on Wed05/26/24 at 1421, Until Discontinued, Sleep, Routine Given 06/06/2024 21:08 EST 8 mg Given 06/04/2024 20:48 EST 8 mg Given 06/03/2024 21:19 EST 8 mg senna (SENOKOT) tablet 2 Tablet 2 Tablet, oral, AT BEDTIME, First dose on Wed05/26/24 at 2100, Until Discontinued, Routine Given 06/25/2024 21:00 EST 2 Tablets Given 06/21/2024 21:33 EST 2 Tablets Given 06/07/2024 21:23 EST 2 Tablets simethicone (MYLICON) chewable tablet 80 mg 80 mg, oral, EVERY 6 HOURS PRN, Starting on 06/03/24 at 1143, Until Discontinued, Flatulence, Routine Given 07/02/2024 8:39 EST 80 mg sodium chloride 0.9 % (flush) flush 10 mL 10 mL, intercatheter, WEEKLY, First dose on Wed06/13/24 at 1900, Until Discontinued, Routine Given 06/27/2024 18:46 EST 10 mL Given 06/20/2024 18:16 EST 10 mL Given by Other 06/13/2024 18:53 EST 10 mL sodium chloride 0.9 % (flush) flush 10 mL 10 mL, intercatheter, PRN, Starting on Wed06/13/24 at 1839, Until Discontinued, Line Care, Routine sodium chloride 0.9 % (flush) flush 20 mL 20 mL, intercatheter, PRN, Starting on Wed06/13/24 at 1839, Until Discontinued, Line Care, Routine Inactive Administered Medications - up to 3 most recent administrations Medication Order MAR Action Action Date Dose Rate Site buprenorphine-naloxone (SUBOXONE) 2-0.5 mg SUBLINGUAL TABLET 1 Tablet 1 Tablet, sublingual, DAILY, First dose on Wed05/28/24 at 0945, Until Discontinued, Routine Given 06/02/2024 8:08 EST 1 Tablet Given 06/01/2024 8:40 EST 1 Tablet Given 05/31/2024 8:26 EST 1 Tablet buprenorphine-naloxone (SUBOXONE) 2-0.5 mg SUBLINGUAL TABLET 1 Tablet 1 Tablet, sublingual, NOW X1, 1 dose, On Wed06/04/24 at 1015, Routine Given 06/04/2024 10:02 EST 1 Tablet buprenorphine-naloxone (SUBOXONE) 8-2 mg SUBLINGUAL TABLET 1 Tablet 1 Tablet, sublingual, EVERY EVENING, First dose on Wed05/26/24 at 1700, Until Discontinued, Routine Given 2024 17:57 EST 1 Tablet buprenorphine-naloxone (SUBOXONE) 8-2 mg SUBLINGUAL TABLET 1 Tablet 1 Tablet, sublingual, DAILY, First dose (after last modification) on Wed05/28/24 at 0945, Until Discontinued, Routine Given 06/02/2024 8:08 EST 1 Tablet Given 06/01/2024 8:40 EST 1 Tablet Given 05/31/2024 8:26 EST 1 Tablet buprenorphine-naloxone (SUBOXONE) 8-2 mg SUBLINGUAL TABLET 1 Tablet 1 Tablet, sublingual, AT BEDTIME, First dose on Wed06/02/24 at 2100, Until Discontinued, Routine Given 06/03/2024 22:33 EST 1 Tablet buprenorphine-naloxone (SUBOXONE) 8-2 mg SUBLINGUAL TABLET 1 Tablet 1 Tablet, sublingual, DAILY, First dose (after last modification) on 06/04/24 at 0915, Until Discontinued, Routine Given 06/27/2024 9:59 EST 1 Tablet Given 06/26/2024 9:59 EST 1 Tablet Given 06/25/2024 9:29 EST 1 Tablet buprenorphine-naloxone (SUBOXONE) 8-2 mg SUBLINGUAL TABLET 1 Tablet 1 Tablet, sublingual, AT BEDTIME, First dose (after last modification) on 06/04/24 at 2100, Until Discontinued, Routine Given 06/26/2024 20:58 EST 1 Tablet Given 06/25/2024 21:00 EST 1 Tablet Given 06/24/2024 21:48 EST 1 Tablet buprenorphine-naloxone (SUBOXONE) 8-2 mg SUBLINGUAL TABLET 2 Tablet 2 Tablet, sublingual, DAILY, First dose on 05/27/24 at 0900, Until Discontinued, Routine Given 05/27/2024 9:31 EST 2 Tablets buprenorphine-naloxone (SUBOXONE) 8-2 mg SUBLINGUAL TABLET 2 Tablet 2 Tablet, sublingual, DAILY, First dose on 06/03/24 at 0900, Until Discontinued, Routine Given 06/03/2024 9:19 EST 2 Tablets ceftaroline fosamiL 600 mg in sodium chloride (NS) 0.9 % 50 mL IVPB 600 mg, intravenous, Administer over 60 Minutes, EVERY 12 HOURS, 26 doses, First dose on Wed05/31/24 at 1200, Last dose on Wed06/13/24 at 0000, Type of Therapy: Definitive, Based on Cultures, Suspected Indication (Select all that apply): MRSA bacteremia/endocarditis, Restricted Antimicrobial Has ID Approved? Yes, ID Provider Consulted: Aditya Jain MD, Routine Given 06/08/2024 1:41 EST 60 0 mg Given 06/07/2024 12:28 EST 600 mg Given 06/07/2024 0:42 EST 600 mg ceftaroline fosamiL 600 mg in sodium chloride (NS) 0.9 % 50 mL IVPB 600 mg, intravenous, Administer over 60 Minutes, EVERY 8 HOURS, 39 doses, First dose (after last modification) on Shannan 06/08/24 at 1300, Last dose on Wed06/21/24 at 0600, Type of Therapy: Definitive, Based on Cultures, Suspected Indication (Select all that apply): MRSA bacteremia/endocarditis, Restricted Antimicrobial Has ID Approved? Yes, ID Provider Consulted: Aditya Jain MD, Routine Given 06/18/2024 6:11 EST 600 mg Given 06/17/2024 22:05 EST 600 mg Given 06/17/2024 14:21 EST 600 mg cyclobenzaprine (FLEXERIL) tablet 10 mg 10 mg, oral, 3 TIMES DAILY PRN, Starting on Wed05/26/24 at 1423, Until 06/18/24 at 1449, Muscle Spasms, Routine Given 06/18/2024 12:26 EST 10 mg Given 06/17/2024 17:13 EST 10 mg Given 06/15/2024 12:09 EST 10 mg DAPTOmycin 862.5 mg in sodium chloride (NS) 0.9 % 50 mL IVPB 862.5 mg (rounded from 862 mg = 10 mg/kg ? 86.2 kg), intravenous, EVERY 24 HOURS, 7 doses, First dose on 05/28/24 at 1430, Last dose on 06/03/24 at 1430, It is recommended to discontinue statins for the duration of daptomycin therapy due to increased risk of rhabdomyolysis. If the patient is on a statin (atorvastatin, simvastatin, rosuvastatin, etc.) - has it been discontinued? N/A, patient not previously on statin, Type of Therapy: Definitive, Based on Cultures, Suspected Indication (Select all that apply): Methicillin-resistant Staph aureus bacteremia, Controlled Antibiotic Has ID Approved? Yes, ID Provider Consulted: Moe Mcgee MD, Routine New Bag 05/29/2024 15:48 EST 862.5 mg 0 mL/hr New Bag 05/28/2024 14:51 EST 862.5 mg DAPTOmycin 900 mg in sodium chloride (NS) 0.9 % 50 mL IVPB 900 mg, intravenous, EVERY 24 HOURS, 14 doses, First dose (after last modification) on Tu05/30/24 at 1430, Last dose on 06/12/24 at 1430, It is recommended to discontinue statins for the duration of daptomycin therapy due to increased risk of rhabdomyolysis. If the patient is on a statin (atorvastatin, simvastatin, rosuvastatin, etc.) - has it been discontinued? N/A, patient not previously on statin, Type of Therapy: Definitive, Based on Cultures, Suspected Indication (Select all that apply): Methicillin-resistant Staph aureus bacteremia, Controlled Antibiotic Has ID Approved? Yes, ID Provider Consulted: Moe Mcgee MD, Routine New Bag 06/07/2024 14:03 EST 900 mg New Bag 06/06/2024 14:53 EST 900 mg New Bag 06/05/2024 14:37 EST 900 mg DAPTOmycin in 0.9 % sod chlor (CUBICIN) 1,000 mg/100 mL IVPB 1,000 mg 1,000 mg, intravenous, at 200 mL/hr, EVERY 24 HOURS, 9 doses, First dose (after last modification) on Wed06/08/24 at 1430, Last dose on Wed06/16/24 at 1600, It is recommended to discontinue statins for the duration of daptomycin therapy due to increased risk of rhabdomyolysis. If the patient is on a statin (atorvastatin, simvastatin, rosuvastatin, etc.) - has it been discontinued? N/A, patient not previously on statin, Type of Therapy: Definitive, Based on Cultures, Suspected Indication (Select all that apply): Methicillin-resistant Staph aureus bacteremia, Controlled Antibiotic Has ID Approved? Yes, ID Provider Consulted: Moe Mcgee MD, Routine New Bag 06/12/2024 16:22 EST 1,000 mg 200 mL/hr New Bag 06/11/2024 17:31 EST 1,000 mg 200 mL/hr New Bag 06/10/2024 17:40 EST 1,000 mg 200 mL/hr DAPTOmycin in 0.9 % sod chlor (CUBICIN) 350 mg/50 mL IVPB 350 mg 350 mg, intravenous, at 100 mL/hr, EVERY 24 HOURS, 18 doses, First dose on Wed06/13/24 at 1600, Last dose on Wed06/30/24 at 1700, It is recommended to discontinue statins for the duration of daptomycin therapy due to increased risk of rhabdomyolysis. If the patient is on a statin (atorvastatin, simvastatin, rosuvastatin, etc.) - has it been discontinued? Yes, discontinued, Type of Therapy: Definitive, Based on Cultures, Suspected Indication (Select all that apply): Methicillin-resistant Staph aureus bacteremia, Controlled Antibiotic Has ID Approved? Yes, ID Provider Consulted: Олег Chilel MD, Routine New Bag 06/25/2024 17:36 EST 350 mg 100 mL/hr New Bag 06/24/2024 16:51 EST 350 mg 100 mL/hr New Bag 06/23/2024 16:17 EST 350 mg 100 mL/hr DAPTOmycin in 0.9 % sod chlor (CUBICIN) 500 mg/50 mL IVPB 500 mg 500 mg, intravenous, EVERY 24 HOURS, 18 doses, First dose on Wed06/13/24 at 1600, Last dose on Wed06/30/24 at 1700, It is recommended to discontinue statins for the duration of daptomycin therapy due to increased risk of rhabdomyolysis. If the patient is on a statin (atorvastatin, simvastatin, rosuvastatin, etc.) - has it been discontinued? Yes, discontinued, Type of Therapy: Definitive, Based on Cultures, Suspected Indication (Select all that apply): Methicillin-resistant Staph aureus bacteremia, Controlled Antibiotic Has ID Approved? Yes, ID Provider Consulted: Олег Chilel MD, Routine 06/25/2024 17:36 EST 500 mg 06/24/2024 16:51 EST 500 mg Bag 06/23/2024 16:17 EST 500 mg gabapentin (NEURONTIN) capsule 100 mg 100 mg, oral, 3 TIMES DAILY, First dose on [facility] 05/27/24 at 0930, Until Discontinued, Routine Given 05/27/2024 21:15 EST 1 00 mg Given 05/27/2024 14:44 EST 100 mg Given 05/27/2024 9:31 EST 100 mg gabapentin (NEURONTIN) capsule 100 mg 100 mg, oral, 3 TIMES DAILY, First dose (after last modification) on [place] 05/28/24 at 0900, Until Discontinued, Routine Given 05/29/2024 9:31 EST 100 mg Given 05/28/2024 21:29 EST 100 mg Given 05/28/2024 14:52 EST 100 mg gabapentin (NEURONTIN) capsule 200 mg 200 mg, oral, NOW X1, 1 dose, On [place] 05/28/24 at 0200, Routine Given 05/28/2024 3:13 EST 200 mg gabapentin (NEURONTIN) capsule 200 mg 200 mg, oral, 3 TIMES DAILY, First dose (after last modification) on Wed05/29/24 at 1545, Until Discontinued, Routine Given 06/05/2024 9:14 EST 200 mg Given 06/04/2024 20:49 EST 200 mg Given 06/04/2024 13:56 EST 200 mg gabapentin (NEURONTIN) capsule 300 mg 300 mg, oral, 3 TIMES DAILY, First dose (after last modification) on Wed06/05/24 at 1400, Until Discontinued, Routine Given 06/15/2024 9:25 EST 300 mg Given 06/14/2024 21:48 EST 300 mg Given 06/14/2024 13:07 EST 300 mg gadoterate meglumine solution 1-30 mL 1-30 mL, intravenous, Once in imaging, 1 dose, Starting on 06/03/24 at 2052, Until 06/03/24 at 2112, Routine, Imaging Protocol Orders Given 06/03/2024 21:12 EST 17 mL HYDROmorphone (DILAUDID) tablet 4 mg 4 mg, oral, EVERY 4 HOURS PRN, Starting on 05/27/24 at 1002, Until 05/27/24 at 1718, Pain, Severe Pain 7-10, Routine Given 05/27/2024 14:43 EST 4 mg Given 05/27/2024 10:12 EST 4 mg HYDROmorphone (DILAUDID) tablet 4-6 mg 4-6 mg, oral, EVERY 3 HOURS PRN, Starting on Wed06/19/24 at 1230, Until Wed06/20/24 at 1148, Severe Pain 7-10, Moderate Pain 4-6, 4 mg for moderate, 6 mg for severe, Routine Given 06/20/2024 0:24 EST 6 mg Given 06/19/2024 20:34 EST 6 mg Given 06/19/2024 16:10 EST 6 mg HYDROmorphone (DILAUDID) tablet 6 mg 6 mg, oral, EVERY 4 HOURS PRN, Starting on 05/27/24 at 1718, Until 06/03/24 at 1540, Pain, Severe Pain 7-10, Routine Given 06/03/2024 13:10 EST 6 mg Given 06/03/2024 9:18 EST 6 mg Given 06/03/2024 5:07 EST 6 mg HYDROmorphone (DILAUDID) tablet 6 mg 6 mg, oral, EVERY 3 HOURS PRN, Starting on 06/03/24 at 1728, Until Wed06/13/24 at 1056, Pain, Severe Pain 7-10, Routine Given 06/13/2024 9:03 EST 6 mg Given 06/13/2024 6:37 EST 6 mg Given 06/13/2024 3:40 EST 6 mg HYDROmorphone (DILAUDID) tablet 6-8 mg 6-8 mg, oral, EVERY 3 HOURS PRN, Starting on 06/13/24 at 1056, Until 06/19/24 at 1211, Severe Pain 7-10, Moderate Pain 4-6, 6 for moderate, 8 for severe, Routine Given 06/19/2024 9:31 EST 8 mg Given 06/19/2024 6:45 EST 8 mg Given 06/19/2024 3:03 EST 8 mg HYDROmorphone (PF) (DILAUDID) 0.5 mg/0.5 mL syringe 0.2 mg 0.2 mg, intravenous, NOW X1, 1 dose, On 05/29/24 at 0600, Routine Given 05/29/2024 5:51 EST 0.2 mg HYDROmorphone (PF) (DILAUDID) 0.5 mg/0.5 mL syringe 0.25 mg 0.25 mg, intravenous, NOW X1, 1 dose, On 05/28/24 at 0145, Routine Given 05/28/2024 1:28 EST 0.25 mg HYDROmorphone (PF) (DILAUDID) 0.5 mg/0.5 mL syringe 0.5 mg 0.5 mg, intravenous, NOW X1, 1 dose, On 05/29/24 at 1015, Routine Given 05/29/2024 11:18 EST 0.5 mg HYDROmorphone (PF) (DILAUDID) 0.5 mg/0.5 mL syringe 0.5 mg 0.5 mg, intravenous, Once PRN Procedure, 1 dose, Starting on 06/03/24 at 1931, Until 06/03/24 at 1945, Pain, MRI, Routine Given 06/03/2024 19:45 EST 0.5 m g HYDROmorphone (PF) (DILAUDID) 0.5 mg/0.5 mL syringe 0.5 mg 0.5 mg, intravenous, NOW X1, 1 dose, On 06/04/24 at 2230, Routine Given 06/04/2024 22:24 EST 0.5 mg HYDROmorphone (PF) (DILAUDID) 0.5 mg/0.5 mL syringe 1 mg 1 mg, intravenous, NOW X1, 1 dose, On Wed05/26/24 at 1300, STAT Given 2024 13:10 EST 1 mg hydrOXYzine (ATARAX) tablet 25 mg 25 mg, oral, EVERY 4 HOURS PRN, Starting on [place] 06/08/24 at 1532, Until Wed06/09/24 at 1559, Itching, Anxiety, Routine Given 06/08/2024 20:42 EST 25 mg ibuprofen (MOTRIN) tablet 400 mg 400 mg, oral, 3 TIMES DAILY, First dose on 05/27/24 at 0930, Until Discontinued, Routine Given 06/04/2024 17:34 EST 4 00 mg Given 06/04/2024 11:50 EST 400 mg Given 06/04/2024 5:55 EST 400 mg insulin aspart U-100 (NOVOLOG FLEXPEN) injection 3 Units 3 Units, subcutaneous, NOW X1, 1 dose, On 06/26/24 at 2345, Routine Given 06/26/2024 23:39 EST 3 Units iohexoL (OMNIPAQUE 350) solution 100 mL 100 mL, intravenous, Once in imaging, 1 dose, Starting on 05/28/24 at 0821, Until 05/28/24 at 0834, Routine, Imaging Protocol Orders Given 05/28/2024 8:34 EST 100 mL iohexoL (OMNIPAQUE 350) solution 100 mL 100 mL, intravenous, Once in imaging, 1 dose, Starting on 06/05/24 at 1255, Until 06/05/24 at 1317, Routine, Imaging Protocol Orders Given 06/05/2024 13:17 EST 95 mL iron dextran (INFED) 1,100 mg in sodium chloride (NS) 0.9 % 250 mL IVPB 1,100 mg, intravenous, Administer over 150 Minutes, NOW X1, 1 dose, On Wed06/30/24 at 1500, Routine New Bag 06/30/2024 16:46 EST 1,100 mg iron dextran (INFED) 25 mg in sodium chloride (NS) 0.9 % 50 mL IVPB 25 mg, intravenous, Administer over 15 Minutes, NOW X1, 1 dose, On Wed06/30/24 at 1400, STAT New Bag 06/30/2024 14:27 EST 25 mg ketOROLAC (TORADOL) injection 15 mg 15 mg, intravenous, NOW X1, 1 dose, On Wed05/26/24 at 1300, STAT Given 2024 13:08 EST 15 mg ketOROLAC (TORADOL) injection 15 mg 15 mg, intravenous, NOW X1, 1 dose, On Wed05/26/24 at 1815, STAT Given 2024 18:00 EST 15 mg ketOROLAC (TORADOL) injection 15 mg 15 mg, intravenous, NOW X1, 1 dose, On 05/27/24 at 0000, STAT Given 2024 23:51 EST 15 mg ketOROLAC (TORADOL) injection 15 mg 15 mg, intravenous, NOW X1, 1 dose, On 05/27/24 at 0530, STAT Given 05/27/2024 5:10 EST 15 mg ketOROLAC (TORADOL) injection 15 mg 15 mg, intravenous, NOW X1, 1 dose, On Wed06/05/24 at 0930, Routine Given 06/05/2024 9:14 EST 15 mg ketOROLAC (TORADOL) injection 15 mg 15 mg, intravenous, NOW X1, 1 dose, On Tu06/06/24 at 1130, Routine Given 06/06/2024 11:13 EST 15 mg ketOROLAC (TORADOL) injection 15 mg 15 mg, intravenous, 2 TIMES DAILY PRN, Starting on 06/06/24 at 1125, Until [place] 06/08/24 at 1124, Pain, Routine Given 06/08/2024 5:32 EST 15 mg Given 06/07/2024 21:24 EST 15 mg Given 06/07/2024 9:34 EST 15 mg ketOROLAC (TORADOL) injection 15 mg 15 mg, intravenous, 2 TIMES DAILY PRN, Starting on [place] 06/08/24 at 1222, Until 06/10/24 at 0916, Pain, Routine Given 06/10/2024 6:14 EST 15 mg Given 06/10/2024 0:07 EST 15 mg Given 06/09/2024 17:18 EST 15 mg ketOROLAC (TORADOL) injection 15 mg 15 mg, intravenous, 4 TIMES DAILY, 8 doses, First dose on 11/23/24 at 1200, Last dose on Wed06/12/24 at 0800, Routine Given 06/11/2024 8:53 EST 15 mg Given 06/10/2024 22:14 EST 15 mg Given 06/10/2024 16:49 EST 15 mg ketOROLAC (TORADOL) injection 15 mg 15 mg, intravenous, 3 TIMES DAILY, 3 doses, First dose (after last modification) on Wed06/11/24 at 1500, Last dose on Wed06/12/24 at 0900, Routine Given 06/12/2024 7:49 EST 15 mg Given 06/11/2024 20:54 EST 15 mg Given 06/11/2024 14:49 EST 15 mg ketOROLAC (TORADOL) injection 15 mg 15 mg, intravenous, 2 TIMES DAILY, 6 doses, First dose on Wed07/02/24 at 0900, Last dose on Wed07/04/24 at 2100, Routine Given 07/02/2024 9:47 EST 15 mg lactulose (CHRONULAC) 20 gram/30 mL solution 30 mL 30 mL, oral, EVERY 6 HOURS, First dose (after last modification) on Wed05/28/24 at 0930, Until Discontinued, Routine Given 05/28/2024 11:13 EST 30 mL LORazepam (ATIVAN) tablet 1 mg 1 mg, oral, NOW X1, 1 dose, On Wed06/08/24 at 1515, Routine Given 06/08/2024 15:11 EST 1 mg LORazepam (ATIVAN) tablet 1 mg 1 mg, oral, 3 TIMES DAILY, First dose on Wed06/09/24 at 1615, Until Discontinued, Routine Given 06/14/2024 8:44 EST 1 mg Given 06/13/2024 20:31 EST 1 mg Given 06/13/2024 14:48 EST 1 mg metFORMIN (GLUCOPHAGE-XR) ER tablet 500 mg 500 mg, oral, DAILY, First dose on Wed06/27/24 at 0900, Until Discontinued, Routine Given 06/29/2024 9:28 EST 500 mg Given 06/28/2024 9:34 EST 500 mg Given 06/27/2024 9:59 EST 500 mg morphine injection 2 mg 2 mg, intravenous, ONCE PRN, Starting on Wed06/16/24 at 2258, Until 06/17/24 at 0730, Pain, Severe Pain 7-10, Routine Given 06/16/2024 23:09 EST 2 mg naproxen (NAPROSYN) tablet 500 mg 500 mg, oral, 2 TIMES DAILY WITH BREAKFAST & DINNER, First dose on Wed06/12/24 at 1700, Until Discontinued, Routine Given 07/02/2024 8:28 EST 500 mg Given 07/01/2024 17:19 EST 500 mg Given 07/01/2024 9:11 EST 500 mg rifAMPin (RIFADIN) capsule 300 mg 300 mg, oral, 3 TIMES DAILY, 31 doses, First dose on Wed06/06/24 at 2100, Last dose on Wed06/16/24 at 2100, Routine Given 06/12/2024 9:52 EST 300 mg Given 06/11/2024 20:54 EST 300 mg Given 06/11/2024 14:49 EST 300 mg vancomycin (VANCOCIN) 1,750 mg in sodium chloride (NS) 0.9 % 500 mL IVPB 1,750 mg (rounded from 1,724 mg = 20 mg/kg ? 86.2 kg), intravenous, Administer over 120 Minutes, NOW X1, 1 dose, On Wed05/26/24 at 1245, Type of Therapy: Definitive, Based on Cultures, Suspected Indication (Select all that apply): Osteomyelitis, ID Consult: No, STAT Given 2024 14:57 EST 1,750 mg vancomycin (VANCOCIN) 1,750 mg in sodium chloride (NS) 0.9 % 500 mL IVPB 1,750 mg (rounded from 1,724 mg = 20 mg/kg ? 86.2 kg), intravenous, Administer over 120 Minutes, EVERY 12 HOURS, 14 doses, First dose on Wed05/27/24 at 0300, Last dose on Wed06/02/24 at 1500, Type of Therapy: Definitive, Based on Cultures, Suspected Indication (Select all that apply): MRSA bacteremia/endovascular infection, ID Consult: No, Routine Given 05/28/2024 3:18 EST 1,750 mg Given 05/27/2024 14:38 EST 1,750 mg Given 05/27/2024 3:18 EST 1,750 mg documented in this encounter Discontinued Medications Medication Sig Discontinue Reason Start Date End Da te Multivitamins with Minerals tablet Take 1 Tab by mouth daily. 07/02/2024 NAPROXEN SODIUM (ALEVE ORAL) Take by mouth. 07/02/2024 methadone (DOLOPHINE) 10 mg tablet Take 80 mg by mouth daily. 07/02/2024 documented as of this encounter Active and Recently Administered Medications Times are shown in EST. Scheduled Medication Order 06/30/2024 07/01/2024 07/02/2024 acetaminophen (TYLENOL) tablet 1,000 mg 1,000 mg, oral, EVERY 6 HOURS, First dose (after last modification) on Wed05/26/24 at 1800, Until Discontinued, Routine 0312 (Not Given - Provider: Neel Hartmann RN - Reason: Patient/family refused)0818 (Given - Provider: Keira Patiño RN)1427 (Given - Provider: Keira Patiño RN)2049 (Given - Provider: Neel Hartmann RN) 0302 (Not Given - Provider: Neel Hartmann RN - Reason: Patient/family refused)0912 (Given - Provider: Keira Patiño RN)1410 (Given - Provider: Keira Patiño RN)2105 (Given - Provider: Wilfredo Alfonso RN) 0329 (Not Given - Provider: Wilfredo Alfonso RN - Reason: Patient/family refused)0828 (Given - Provider: Keira Patiño RN)1500 (Due)2100 (Due) baclofen (LIORESAL) tablet 10 mg 10 mg, oral, 3 TIMES DAILY, First dose on Wed06/18/24 at 1500, Until Discontinued, Routine 0918 (Given - Provider: Keira Patiño RN)1427 (Given - Provider: Keira Patiño RN)2208 (Given - Provider: Neel Hartmann RN) 0912 (Given - Provider: Keira Patiño RN)1410 (Given - Provider: Keira Patiño RN)2105 (Given - Provider: Wilfredo Alfonso RN) 0947 (Given - Provider: Keira Patiño RN)1500 (Due)2200 (Due) buprenorphine-naloxone (SUBOXONE) 8-2 mg SUBLINGUAL TABLET 1 Tablet(Linked Group 1) 1 Tablet, sublingual, AT BEDTIME, First dose (after last modification) on Wed06/27/24 at 2100, Until Discontinued, Routine 2048 (Given - Provider: Neel Hartmann RN) 2104 (Given - Provider: Wilfredo Alfonso RN) 2100 (Due) buprenorphine-naloxone (SUBOXONE) 8-2 mg SUBLINGUAL TABLET 2 Tablet(Linked Group 1) 2 Tablet, sublingual, DAILY, First dose (after last modification) on Wed06/28/24 at 0900, Until Discontinued, Routine 08 (Given - Provider: Keira Patiño RN) 09 (Given - Provider: Keira Patiño RN) 08 (Given - Provider: Keira Patiño RN) ceftaroline fosamiL 600 mg in sodium chloride (NS) 0.9 % 50 mL IVPB 600 mg, intravenous, Administer over 60 Minutes, EVERY 8 HOURS, 56 doses, First dose (after last modification) on Wed06/18/24 at 1400, Last dose on Wed07/07/24 at 0900, Type of Therapy: Definitive, Based on Cultures, Suspected Indication (Select all that apply): MRSA bacteremia/endocarditis , Restricted Antimicrobial Has ID Approved? Yes, ID Provider Consulted: Aditya Jain MD, Routine 0642 (Given - Provider: Neel Hartmann RN)1522 (Given - Provider: Keira Patiño RN) 0054 (Given - Provider: Neel Hartmann RN - Comment: medical csr pushed back d/t iron infusion)0917 (Given - Provider: Keira Patiño RN - Comment: given at scheduled time)1719 (Given - Provider: Keira Patiño RN) 0110 (Given - Provider: Wilfredo Alfonso RN)0829 (Given - Provider: Keira Patiño RN)1700 (Due - Provider: Flory Paniagua [facility]) DAPTOmycin 850 mg in sodium chloride (NS) 0.9 % 50 mL IVPB 850 mg, intravenous, EVERY 24 HOURS, 12 doses, First dose (after last reorder) on Wed06/26/24 at 1830, Last dose on Wed07/07/24 at 2000, It is recommended to discontinue statins for the duration of daptomycin therapy due to increased risk of rhabdomyolysis. If the patient is on a statin (atorvastatin, simvastatin, rosuvastatin, etc.) - has it been discontinued? Yes, discontinued, Type of Therapy: Definitive, Based on Cultures, Suspected Indication (Select all that apply): Methicillin-resistant Staph aureus bacteremia, Controlled Antibiotic Has ID Approved? Yes, ID Provider Consulted: Олег Chilel MD, STAT 2342 (New Bag - Provider: Neel Hartmann RN - Comment: iv iron infusing when due- admin time pushed back) 2104 (New Bag - Provider: Wilfredo Alfonso RN) 1999 (Due - Provider: Flory Paniagua [facility]) enoxaparin (LOVENOX) injection 40 mg 40 mg, subcutaneous, DAILY, First dose on 05/27/24 at 0900, Until Discontinued, Routine 0818 (Given - Provider: Keira Patiño RN) 09 (Given - Provider: Keira Patiño RN) 08 (Given - Provider: Keira Patiño RN) ferrous gluconate (FERGON) tablet 324 mg 324 mg, oral, EVERY WED, WED, WED, First dose on Wed07/03/24 at 0900, Until Discontinued, Routine gabapentin (NEURONTIN) capsule 400 mg 400 mg, oral, 3 TIMES DAILY, First dose (after last modification) on [place] 06/15/24 at 1400, Until Discontinued, Routine 0818 (Given - Provider: Keira Patiño RN)1427 (Given - Provider: Keira Patiño RN)2049 (Given - Provider: Neel Hartmann RN) 09 (Given - Provider: Keira Patiño RN)131 (Given - Provider: Keira Patiño RN)2104 (Given - Provider: Wilfredo Alfonso RN) 08 (Given - Provider: Keira Patiño RN)1400 (Due)2100 (Due) insulin aspart U-100 (NOVOLOG FLEXPEN) injection 0-11 Units 0-11 Units, subcutaneous, 3 TIMES DAILY WITH MEALS, First dose on Wed06/26/24 at 1200, Until Discontinued, Routine 0754 (Not Given - Provider: Dayanara Murphy RN - Reason: Order parameters not met)1229 (Given - Provider: Keira Patiño RN)1944 (Not Given - Provider: Neel Hartmann RN - Reason: Order parameters not met - Comment: BG 128pt ate dinner late) 0911 (Given - Provider: Keira Patiño RN)1144 (Not Given - Provider: Keira Patiño RN - Reason: Order parameters not met - Comment: fs [phone] (Given - Provider: Keira Patiño RN - Comment: 182) 0733 (Not Given - Provider: Keira Patiño RN - Reason: Order parameters not met - Comment: fs 132)1200 (Due)1700 (Due) iron dextran (INFED) 1,100 mg in sodium chloride (NS) 0.9 % 250 mL IVPB (COMPLETED)(Linked Group 2) 1,100 mg, intravenous, Administer over 150 Minutes, NOW X1, 1 dose, On Wed06/30/24 at 1500, Routine 1646 (New Bag - Provider: Renetta Jenkins RN - Comment: Infusing IV ceftaroline.v,) iron dextran (INFED) 25 mg in sodium chloride (NS) 0.9 % 50 mL IVPB (COMPLETED)(Linked Group 2) 25 mg, intravenous, Administer over 15 Minutes, NOW X1, 1 dose, On Wed06/30/24 at 1400, STAT 1427 (New Bag - Provider: Keira Patiño RN) ketOROLAC (TORADOL) injection 15 mg (CANCELED) 15 mg, intravenous, 2 TIMES DAILY, 6 doses, First dose on Wed07/02/24 at 0900, Last dose on Wed07/04/24 at 2100, Routine 0947 (Given - Provider: Keira Patiño RN) ketOROLAC (TORADOL) injection 15 mg(Linked Group 3) 15 mg, intravenous, 2 TIMES DAILY, 5 doses, First dose (after last modification) on Wed07/02/24 at 2100, Last dose on Wed07/04/24 at 2100, Routine 2100 (Due) lidocaine 5 % (LIDODERM) patch 1 Patch 1 Patch, transdermal, Administer over 12 Hours, DAILY, First dose on Wed07/01/24 at 1315, Until Discontinued, Routine 1311 (Patch Applied - Provider: Keira Patiño RN) 0113 (Patch Removed - Provider: Neel Hartmann RN)0114 (Patch Removed - Provider: Wilfredo Alfonso RN - Comment: Pt states independently removed from back. )0829 (Patch Applied - Provider: Keira Patiño RN)2028 (Due: Patch Removed - Provider: Keira Patiño RN) LORazepam (ATIVAN) tablet 1 mg 1 mg, oral, 3 TIMES DAILY, First dose (after last modification) on Wed06/14/24 at 1315, Until Discontinued, Routine 0818 (Given - Provider: Keira Patiño RN)1427 (Given - Provider: Keira Patiño RN)2048 (Given - Provider: Neel Hartmann RN) 09 (Given - Provider: Keira Patiño RN)131 (Given - Provider: Keira Patiño RN)210 (Given - Provider: Wilfredo Alfonso RN) 0828 (Given - Provider: Keira Patiño RN)1400 (Due)2100 (Due) metFORMIN (GLUCOPHAGE-XR) ER tablet 500 mg 500 mg, oral, 2 TIMES DAILY, First dose (after last modification) on Wed06/29/24 at 2100, Until Discontinued, Routine 0818 (Given - Provider: Keira Patiño RN)2048 (Given - Provider: Neel Hartmann RN) 09 (Given - Provider: Keira Patiño RN)210 (Given - Provider: Wilfredo Alfonso RN) 0828 (Given - Provider: Keira Patiño RN)2100 (Due) naproxen (NAPROSYN) tablet 500 mg (CANCELED) 500 mg, oral, 2 TIMES DAILY WITH BREAKFAST & DINNER, First dose on Wed06/12/24 at 1700, Until Discontinued, Routine 0818 (Given - Provider: Keira Patiño RN)1658 (Given - Provider: Renetta Jenkins RN) 0911 (Given - Provider: Keira Patiño RN)1719 (Given - Provider: Keira Patiño RN) 0828 (Given - Provider: Keira Patiño RN) naproxen (NAPROSYN) tablet 500 mg(Linked Group 3) 500 mg, oral, 2 TIMES DAILY WITH BREAKFAST & DINNER, First dose (after last modification) on Wed07/05/24 at 0900, Until Discontinued, Routine pantoprazole (PROTONIX) tablet 20 mg 20 mg, oral, DAILY BEFORE BREAKFAST, First dose on Wed05/28/24 at 0700, Until Discontinued, Routine 0642 (Not Given - Provider: Neel Hartmann RN - Reason: Patient/family refused) 0636 (Not Given - Provider: Neel Hartmann RN - Reason: Patient/family refused) 0651 (Not Given - Provider: Wilfredo Alfonso RN - Reason: Patient/family refused) polyethylene glycol 3350 (MIRALAX) packet 17 g 17 g, oral, 2 TIMES DAILY, First dose on Wed05/26/24 at 1430, Until Discontinued, Routine 0916 (Not Given - Provider: Keira Patiño RN - Reason: Patient/family refused)2052 (Not Given - Provider: Neel Hartmann RN - Reason: Patient/family refused) 0915 (Not Given - Provider: Keira Patiño RN - Reason: Patient/family refused)2105 (Not Given - Provider: Wilfredo Alfonso RN - Reason: Patient/family refused) 0833 (Not Given - Provider: Keira Patiño RN - Reason: Patient/family refused)2099 (Due) QUEtiapine (SEROQUEL) tablet 100 mg 100 mg, oral, AT BEDTIME, First dose on Wed05/26/24 at 2100, Until Discontinued, Routine 2048 (Given - Provider: Neel Hartmann RN) 2104 (Given - Provider: Wilfredo Alfonso RN) 2099 (Due) senna (SENOKOT) tablet 2 Tablet 2 Tablet, oral, AT BEDTIME, First dose on Wed05/26/24 at 2100, Until Discontinued, Routine 2053 (Not Given - Provider: Neel Hartmann RN - Reason: Patient/family refused) 2105 (Not Given - Provider: Wilfredo Alfonso RN - Reason: Patient/family refused) 2099 (Due) sodium chloride 0.9 % (flush) flush 10 mL 10 mL, intercatheter, WEEKLY, First dose on Wed06/13/24 at 1900, Until Discontinued, Routine PRN Medication Order 06/30/2024 07/01/2024 07/02/2024 alteplase (CATHFLO ACTIVASE) injection 2 mg 2 mg, intercatheter, PRN, Starting on Wed06/13/24 at 0717, Until Discontinued, Line Care, Routine bisacodyL (DULCOLAX) suppository 10 mg 10 mg, rectal, DAILY PRN, Starting on Wed05/26/24 at 1516, Until Discontinued, Constipation, Routine dextrose 50 % solution 12.5 g 12.5 g (25 mL), intravenous, PRN, Starting on Wed06/26/24 at 0937, Until Discontinued, Low Blood Sugar, Routine diclofenac sodium gel 2 g 2 g, topical, 2 TIMES DAILY PRN, Starting on 07/01/24 at 1305, Until Discontinued, Pain, Routine 1410 (Given - Provider: Keira Patiño RN) 0832 (Given - Provider: Keira Patiño RN) glucagon injection 1 mg 1 mg, intramuscular, As needed, Starting on Wed06/26/24 at 0937, Until Discontinued, Low Blood Sugar, Routine lactulose (CHRONULAC) 20 gram/30 mL solution 30 mL 30 mL, oral, EVERY 6 HOURS PRN, Starting on Wed05/28/24 at 1345, Until Discontinued, Pain, Routine lidocaine (PF) 10 mg/mL (1 %) injection 2 mg 2 mg, intradermal, PRN, 4 doses, Starting on Wed05/26/24 at 1421, Until Discontinued, peripheral intravenous catheter placement, Routine lidocaine (PF) 10 mg/mL (1 %) injection 5 mg 5 mg, intradermal, PRN, 2 doses, Starting on Wed06/13/24 at 0717, Until Discontinued, line placement, Routine nicotine polacrilex (COMMIT) 2 mg lozenge 2 mg 2 mg, oral, EVERY 1 HOUR PRN, Starting on Wed05/26/24 at 1421, Until Discontinued, Smoking Cessation, Routine ramelteon (ROZEREM) tablet 8 mg 8 mg, oral, AT BEDTIME PRN, Starting on Wed05/26/24 at 1421, Until Discontinued, Sleep, Routine simethicone (MYLICON) chewable tablet 80 mg 80 mg, oral, EVERY 6 HOURS PRN, Starting on Wed06/03/24 at 1143, Until Discontinued, Flatulence, Routine 0839 (Given - Provid er: Keira Patiño RN) sodium chloride 0.9 % (flush) flush 10 mL 10 mL, intercatheter, PRN, Starting on Wed06/13/24 at 1839, Until Discontinued, Line Care, Routine sodium chloride 0.9 % (flush) flush 20 mL 20 mL, intercatheter, PRN, Starting on Wed06/13/24 at 1839, Until Discontinued, Line Care, Routine Linked Groups Order Group 1: buprenorphine-naloxone (SUBOXONE) 8-2 mg SUBLINGUAL TABLET 2 TabletJump to med 2 Tablet, sublingual, DAILY, First dose (after last modification) on Wed06/28/24 at 0900, Until Discontinued, Routine And buprenorphine-naloxone (SUBOXONE) 8-2 mg SUBLINGUAL TABLET 1 TabletJump to med 1 Tablet, sublingual, AT BEDTIME, First dose (after last modification) on Wed06/27/24 at 2100, Until Discontinued, Routine Group 2: iron dextran (INFED) 25 mg in sodium chloride (NS) 0.9 % 50 mL IVPB (COMPLETED)Jump to med 25 mg, intravenous, Administer over 15 Minutes, NOW X1, 1 dose, On Wed06/30/24 at 1400, STAT Followed by iron dextran (INFED) 1,100 mg in sodium chloride (NS) 0.9 % 250 mL IVPB (COMPLETED)Jump to med 1,100 mg, intravenous, Administer over 150 Minutes, NOW X1, 1 dose, On Wed06/30/24 at 1500, Routine Group 3: ketOROLAC (TORADOL) injection 15 mgJump to med 15 mg, intravenous, 2 TIMES DAILY, 5 doses, First dose (after last modification) on Wed07/02/24 at 2100, Last dose on Wed07/04/24 at 2100, Routine Followed by naproxen (NAPROSYN) tablet 500 mgJump to med 500 mg, oral, 2 TIMES DAILY WITH BREAKFAST & DINNER, First dose (after last modification) on Wed07/05/24 at 0900, Until Discontinued, Routine documented in this encounter Orders Medications Ordered That Kin ht Not Have Been Administered Count Last Ordered Date First Ordered Date ketOROLAC (TORADOL) injection 15 mg 3 07/0205/27/2024 naproxen (NAPROSYN) tablet 500 mg 2 024 ferrous gluconate (FERGON) tablet 324 mg 1 06/30/2024 dextrose 50 % solution 12.5 g 1 06/26/2024 glucagon injection 1 mg 1 06/26/2024 insulin aspart U-100 (NOVOLO G) injection 3 Units 1 06/26/2024 HYDROmorphone (DILAUDID) tablet 2 mg 1 11/2023 HYDROmorphone (DILAUDID) tablet 4 mg 3 10/202306/20/2024 DAPTOmycin 875 mg in sodium chloride (NS) 0.9 % 50 mL IVPB 1 06/13/2024 HYDROmorphone (DILAUDID) tablet 8 mg 1 05/20 sodium chloride 0.9 % (flush) flush 10 mL 1 06/13/2024 sodium chloride 0.9 % (flush) flush 20 mL 1 06/13/2024 ibuprofen (MOTRIN) tablet 800 mg 1 06/11/20 ceftaroline fosamiL 600 mg i n sodium chloride (NS) 0.9 % 50 mL IVPB 1 06/08/2024 buprenorphine-naloxone (SUBO XONE) 2-0.5 mg sublingual film 1 Film 1 06/04/2024 HYDROmorphone (DILAUDID) tablet 6 mg 1 05/19 atropine 0.1 mg/mL syringe 0.5 mg 1 024 naloxone (NARCAN) injection 0.2 mg 1 2023 buprenorphine-naloxone (SUBO XONE) 2-0.5 mg SUBLINGUAL TABLET 3 Tablet 1 05/28/2024 gabapentin (NEURONTIN) capsule 200 mg 1 04/2024 gabapentin (NEURONTIN) capsule 300 mg 1 04/2024 lactulose (CHRONULAC) 20 gra m/30 mL solution 30 mL 2 05/28/2024 05/27/2024 acetaminophen (TYLENOL) tablet 650 mg 1 02/2024 lidocaine (PF) 10 mg/mL (1 % ) injection 2 mg 1 2024 nicotine polacrilex (COMMIT) 2 mg lozenge 2 mg 1 2024 Diet Count Last Ordered Date First Orde red Date DIET REGULAR 1 05/29/2024 Nursing Count Last Ordered Date First Orde red Date STRICT INTAKE AND OUTPUT 113 07/02/202402/2024 CHANGE NEEDLELESS CONNECTOR 3 06/27/2024 06/13/2024 NOTIFY PROVIDER (SPECIFY) 2 06/26/2024 TIME OFF UNIT ALLOWED (ON HO SPITAL GROUNDS) 1 06/26/2024 ABDOMINAL BINDER 1 06/18/2024 NURSING IV THERAPY -?CENTRAL LINE CARE 1 06/13/2024 NURSING IV THERAPY-BLOOD DRAW 1 06/13/2024 WOUND/DRESSING CHANGE 1 06/13/2024 OXYGEN THERAPY (AGE 2 YRS. TO ADULT) 1 05/19 PULSE OXIMETRY 1 05/29/2024 VITAL SIGNS 2 05/29/2024 05/28/2024 ACTIVITY 1 2024 INSERT PERIPHERAL IV 1 2024 NURSING COMMUNICATION 1 2024 Consult Count Last Ordered Date First Orde red Date CONSULT DIABETES EDUCATION 1 06/27/2024 CONSULT NUTRITION 1 06/27/2024 CONSULT COLLABORATIVE CARE R MEGHAN TEAM ([facility]) 1 06/09/2024 IV Count Last Ordered Date First Orde red Date IV REQUEST 9 06/22/2024 05/27/2024 PICC LINE CLEARED FOR USE 1 06/13/2024 PICC PHARMACEUTICAL DEVELOPMENT TECHNICIAN 1 06/13/2024 Admission Count Last Ordered Date First Orde red Date ADMIT TO INPATIENT 1 2024 Transfer Count Last Ordered Date First Orde red Date CONSULT TRANSFER CENTER (TRA NSFER/CONSULT TO OTHER FACILITY) 3 06/20/2024 06/14/2024 ED BED REQUEST 1 2024 Discharge Count Last Ordered Date First Orde red Date DISCHARGE PATIENT 1 07/02/2024 Cohortable Count Last Ordered Date First Orde red Date MRSA COHORTABLE 1 05/29/2024 Full Code Count Last Ordered Date First Orde red Date FULL CODE (ATTEMPT RESUSCITATION) 1 024 documented in this encounter Additional Health Concerns Infection Onset Date Last Indicated Resolved Time MRSA Comment:05/24/2024 +MRSA blood cultures [facility] Pos blood 05/26/24, 05/27/24, 05/29/24, 05/30/24, 06/01/24, 06/03/24, 06/04/24, 06/05/24 - Radha DiMasi 06/08/2024 2024 06/05/2024 documented as of this encounter Care Teams Physician Assistant Primary Care Relationship Specialty Start Date End Date Raffi Merida DO [address] [place] [id number] PCP - General Family Medicine - Primary Care 05/26/24 documented as of this encounter
--- OUTSIDE RECORDS SUMMARY | 2024-07-02 14:32 | XMS_ITS | Encounter Summary ---
Author Organization [facility] Address [address] [place] [address] Care Team Providers Care Hog Scraper Name Role Phone MagnoliaRaffi DO Primary Care Provider [phone] Reason for Visit * Reason Comments Back Pain Tx from [facility] s/p diagnosis of abscess at T10, T11, L1, and L2. Upon arrival to ED, VSS on , 04/27 back pain. * Auth/Cert (Routine) Specialty Diagnoses / Procedures Referred By Betzy t Referred To Contact Diagnoses Epidural abscess Acute pain MRSA bacteremia Discitis of thoracolumbar region Opioid use disorder Sepsis due to methicillin resistant Staphylococcus aureus (MRSA) without acute organ dysfunction ([facility]) Back Pain Referral ID Status Reason Start Date Expiration Date Visits Re quested Visits Authorized [id number] 1 1 Encounter Details Date Type Department Care Team (Late st Contact Info) Description 05/29/2024 13:00 EST - 05/29/2024 14:25 EST Surgery [facility] [place] [address] [place] [id number] Enedina Kirkland MD [address] [place] [address] [place] [id number] MARIBEL [[id number] (CPT??)] Surgery Details Date/Time Status Location OR Service Patient Class Case Class Case Type Trauma Case? 05/29/2024 1300 Posted [facility] PROC[facility] [place] Virtual Interventional Cardiology Inpatient E - Less than 12 hours Panel 1 Procedure LRB Anes Op Region Wound Class Comments MARIBEL N/A General Esophagus Surgeon Surgeon Role Service Panel Enedina Kirkland MD Primary Interventional Card iology 1 [facility] Interventional Cardiology 1 documented in this encounter Social History Tobacco [...] any time in the past 12 m [facility], were you homeless or living in a fpc (including now)? No 2024 [facility] - Inadequate Housing Answer Date Re corded What is your living situation today? I have a [facility] place to live 05/30/2024 Housing Problems Not on file 05/30/2024 AH - Transportation Answer Date Record ed In the past 12 months, has l ack of reliable transportation kept you from medical appointments, meetings, work or from getting things needed for daily living? No 05/30/2024 Interpersonal Safety Answer Date Record ed How often does anyone, ubaldo kilpatrick family, hit, punch or physically hurt you? [...] Sign Reading Time Taken Comments Blood Pressure 100/70 05/29/2024 1423 EST Pulse 77 05/29/2024 1245 EST Temperature 36.3 ??C (97.3 ??F) 05/29/2024 1423 EST Respiratory Rate 16 05/29/2024 1423 EST Oxygen Saturation 94% 05/29/2024 1423 EST Inhaled Oxygen Concentration - - Weight 86.2 kg (190 lb) 2024 1506 EST Height 175.3 cm (5' 9) 2024 1506 [...] of Assessment Author No 2024 18:52 EST Wells, Malv ika, RN documented as of this encounter Mental Status * Because of a physical, mental, or emotional condition, do you have serious difficulty concentrating, remembering, or making decisions? (5 years old or older) Answer Entry Date Author No 2024 18:52 Tristan Kramer RN documented in this encounter Discharge Summaries * Virginia Downey MD MPH - 07/02/2024 1114 EST HOSPITAL MEDICINE DISCHARGE SUMMARY Primary Care Provider: Raffi Merida Attending Physician: Virginia Downey MD * Admit Date: 05/26/24 Discharge Date: 06/30/24 Disposition (location): [facility] (inpatient transfer) Condition at Discharge: Improved , [...] 06/13/2024 Chronic hepatitis C without hepatic coma ([facility]) 06/13/2024 Anxiety 06/09/2024 Discitis of thoracolumbar region 2024 Epidural abscess 2024 Sepsis due to methicillin resistant Staphylococcus aureus (MRSA) without acute organ dysfunction ([facility]) 2024 Acute pain 2024 Opioid use disorder 2024 Resolved Hospital Problems No resolved problems to display. Transition of care: [facility] Transition of Care report automatically routed to PCP office on discharge.Additional handoff communication performed via: [email or web address] Staff Message Clinical Issues Needing Follow-up 1. Pertinent medication changes: - continue medications per MAR - antibiotics through 07/19/24: - ceftaroline 600 mg q8 - daptomycin 850 mg (10mg/kg) q24 - if unable to tolerate IV abx through 07/19/24, may continue on linezolid instead - pain: - acetaminophen 1g q6 - baclofen 10 TID - diclofenac gel 2g BID prn - suboxone 8-2 mg pm 16-2 in am (AX SURVEY WORKER dose) - gabapentin 400 TID - ketorolac [...] (seroquel) who presented as a transfer from [facility] ED for high grade MRSA bacteremia. On presentation, patient reported 4 months of recurrent midline thoracic pain. Worse with exertion and associated with fevers, headaches, photophobia/phonophobia, decreased appetite. Blood cultures on initial presentation positive for MRSA bacteremia. MR thoracic spine demonstrated T10- 11, L1-2 osteomyelitis/discitis and T10-11 early phlegmon and abscess. Patient was started on vancomycin and transferred to [facility] for further management and ortho spine consult. [...] 07/19/24. He was stable for transfer to [facility], for completion of antibiotic course, on 07/02/24. [...] above interpretation and agree with the findings. [id number] MR THORACIC SPINE W WO CONTRAST Result [...] osteomyelitis of the adjacent right 11th rib. [id number] TERESA KERN MD 07/02/2024 11:19 ATTENDING ATTESTATION: [...] today: 40 Minutes Virginia Downey MD MPH [facility] Inpatient Service 07/02/2024 11:56 documented in [...] Disposition Code Departure Means Destination Comment s [facility] (Acute Care Facility) documented in this encounter Progress Notes * Ev Hall - 07/02/2024 1125 EST DISCHARGE DATE/TIME: 07/02/24 DESTINATION: [facility] (If discharging to [facility]) COVID swab ordered and completed: TRANSPORTATION: [facility] ACCEPTING MD AND NUMBER: AMY RN REPORT/UNIT: [phone] ANESTHESIOLOGY TECHNOLOGIST/CHARGE/MD NOTIFIED (Y/N): Y FORMS: (Acute to acute, COLST, MOLST, DION, Screen, PASRR, Ambulance): COLST, Ambulance Form, Acute to Acute, Ambulance Letter. IM SIGNED (Y/NA): NA HOME HEALTH: NA DME: NA PHARMACY/PRESCRIPTIONS: N MEDS TO BEDS UTILIZED : N Patient and/or family who participated in discharge plan: Patient OTHER: paper latcher sample case porter informed patient had been accepted for transfer to [facility]. All forms need for transfer brought to nurses station. No other CM questions or concerns at this time. Ev Hall MS, CCC-LICENSING SPECIALIST Blow Torch Burner II * Virginia Downey MD MPH - 07/02/2024 0759 EST Internal Medicine Progress Note Service Date: [...] disorder (seroquel) who presented as transfer from [facility] ED for High Grade MRSA bacteremia c/b T10-11, L1-2 osteomyelitis, discitis, and T10-11 early phlegmon and early abscess. ID and orthopedic spine consulted. Now on ceftaroline and daptomycin due to persistent positive cultures. Plan for transfer to [facility] if they are able to administer IV [...] dropping ceftaroline or dapto if transfer to [place], and monitor sxs, blood cxs if sxs #Pain management - Acetaminophen 1g q6 - gabapentin to 400 mg TID - toradol BID for 2 days then naproxen 500 BID, Cr stable - baclofen 10 TID - pantoprazole 20 mg daily - AX SURVEY WORKER suboxone as below - Th BMP #Mood disorder #Anxiety -AX SURVEY WORKER seroquel -lorazepam 1mg TID for anxiety #IVDU/OUD - AX SURVEY WORKER suboxone 16 mg AM and 8mg at [...] is DPOA Discharge Plan: Potential transfer to [facility] pending, otherwise will stay for antibiotic treatment [...] the note above. Virginia Downey MD MPH [facility] Inpatient Service 07/02/2024 10:50 * Virginia Downey [...] 06/05/2024: 2/4 Bcx with growth @27hrs 06/08/2024: 10/20 no growth to date Assessment Marcos Camejo is a 44 y.o. male with a PMHx notable for IVDU (on suboxone), TUD, mood disorder (seroquel) who presented as transfer from [facility] ED for High Grade MRSA bacteremia c/b T10-11, L1-2 osteomyelitis, discitis, and T10-11 early phlegmon and early abscess. ID and orthopedic spine consulted. Now on ceftaroline and daptomycin due to persistent positive cultures. Plan for transfer to [facility] if they are able to administer IV [...] dropping ceftaroline or dapto if transfer to [place], and monitor sxs, blood cxs if sxs #Pain management - Acetaminophen 1g q6 - gabapentin to 400 mg TID - naproxen 500 BID, Cr stable - baclofen 10 TID - pantoprazole 20 mg daily - AX SURVEY WORKER suboxone as below - Th BMP. #Mood disorder #Anxiety -AX SURVEY WORKER seroquel -lorazepam 1mg TID for anxiety #IVDU/OUD - AX SURVEY WORKER suboxone 16 mg AM and 8mg at [...] a week - s/p IV dextran on 12/13 Chronic/Stable: HCV, untreated Chronically Elevated liver chemistries [...] is DPOA Discharge Plan: Potential transfer to [facility] pending, otherwise will stay for antibiotic treatment [...] the note above. Virginia Downey MD MPH [facility] Inpatient Service 07/01/2024 13:33 * Porter Nicole - 06/30/2024 1546 EST [facility] Department of Case Management and Social Work [...] 35 2-4 days N Primary Care Provider: MUNIR/KAYA/SNF referred: Y/N Bed Offers: Y/N Escalated to [...] Contract and cost sharing details sent to [facility] for review. Pt will be sent with short term supply of medications until [facility] can receive from their supplier. Currently waiting on final agreement from [facility] Plan DC to [facility] for remaining iv abx plan. CM attempted to visit with patient to provide CM updates and transfer status. Pt sleeping. E-Signature ROD Block/Quan Blow Torch Burner II Epic chat preferred. 06/30/2024 15:48 06/30/24 [...] disorder (seroquel) who presented as transfer from [facility] ED for High Grade MRSA bacteremia c/b [...] both ceftaroline and daptomycin. Tentatively accepted at [facility] pending discussion of cost sharing of abx. [...] dropping ceftaroline or dapto if transfer to [place], and monitor sxs, blood cxs if sxs #Pain management - Acetaminophen 1g QID - gabapentin to 400 mg TID - naproxen 500 BID, Cr stable - pantoprazole 20 mg daily - AX SURVEY WORKER suboxone as below - Th BMP. #Mood disorder #Anxiety -AX SURVEY WORKER seroquel -lorazepam 1mg TID for anxiety #IVDU/OUD - AX SURVEY WORKER suboxone 16 mg AM and 8mg at [...] times a week -If not transferring to [facility] H today, will administer IV [...] is DPOA Discharge Plan: Potential transfer to [facility] pending, otherwise will stay for antibiotic treatment [...] the note above. Virginia Downey MD MPH [facility] Inpatient Service 06/30/2024 12:46 * Virginia [...] 4/4 Bcx positive MRSA @ 15hrs 05/29/2024: 2/ [...] disorder (seroquel) who presented as transfer from [facility] ED for High Grade MRSA bacteremia c/b [...] both ceftaroline and daptomycin. Tentatively accepted at [facility] pending discussion of cost sharing of abx. [...] dropping ceftaroline or dapto if transfer to [place], and monitor sxs, blood cxs if sxs #Pain management - Acetaminophen 1g QID - gabapentin to 400 mg TID - naproxen 500 BID, Cr stable - pantoprazole 20 mg daily - AX SURVEY WORKER suboxone as below - Th BMP. #Mood disorder #Anxiety -AX SURVEY WORKER seroquel -lorazepam 1mg TID for anxiety #IVDU/OUD - AX SURVEY WORKER suboxone 16 mg AM and 8mg at [...] is DPOA Discharge Plan: Potential transfer to [facility] pending, otherwise will stay for antibiotic treatment [...] the note above. Virginia Downey MD MPH [facility] Inpatient Service 06/29/2024 18:47 * Porter Nicole - 06/28/2024 1006 EST [facility] Department of Case Management and Social Work Case Management Progress Note Patient Name Level of Care and Accommodation Code: Patient Class: Medically Ready: Y/N Marcos Camejo [facility] Inpatient n Primary Dx: Decisional Capacity: Y/N [...] cane, prosthetic(s) Number of caregivers reccommended: 0 [facility] or OSH- Payor: MEDICAID [place] / Plan[place] / Product Type: Medicaid [place] / Barriers to Discharge IV abx therapy needed. Cost of cetraflone. Escalted to hospital leadership. Plan Per last note from transfer team: Transfer on hold per [facility] leadership. Updates to be provided as available. E-Signature ROD Block/Quan Blow Torch Burner II Epic chat preferred. 06/28/2024 10:09 06/28/24 10:06 * Virginia Downey MD MPH - 06/28/2024 0740 EST Internal Medicine Progress Note Service Date: [...] disorder (seroquel) who presented as transfer from [facility] ED for High Grade MRSA bacteremia c/b [...] dropping ceftaroline or dapto if transfer to [place], and monitor sxs, blood cxs if sxs #Pain management - Acetaminophen 1g QID - gabapentin to 400 mg TID - naproxen 500 BID, Cr stable - pantoprazole 20 mg daily - AX SURVEY WORKER suboxone as below - Th BMP. 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 Virginia Downey MD MPH [facility] Inpatient Service 06/28/2024 13:02 * Marleen Duran RN - 06/27/2024 2241 EST Data: Patient is a newly diagnosed diabetic. Action: Educated pt on what ACHS is and the sliding scale. Obtained sugars and administered insulin. Response: Breakfast sugar was high at 291 and 7 units were given. Lunch sugar was 115 and no insulin was needed per orders in the eMAR. London Duran RN 06/27/2024 14:52 * Virginia Downey MD MPH - 06/27/2024 0736 EST Internal Medicine Progress Note Service Date: [...] he would like to return to his AX SURVEY WORKER dose of Suboxone. No other concerns at [...] disorder (seroquel) who presented as transfer from [facility] ED for High Grade MRSA bacteremia c/b [...] dropping ceftaroline or dapto if transfer to [place], and monitor sxs, blood cxs if sxs #Pain management, greatly improved - Acetaminophen 1g QID - gabapentin to 400 mg TID - naproxen 500 BID, Cr stable - pantoprazole 20 mg daily - AX SURVEY WORKER suboxone as below - Th BMP. 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 Virginia Downey MD MPH [facility] Inpatient Service 06/27/2024 13:51 * Porter Nicole - 06/26/2024 1517 EST [facility] Department of Case Management and Social Work [...] to hospital leadership. Transfer team working with [facility] or [facility]. Plan Transfer to acute hospital setting closer to home. E-Signature ROD Block/Quan Blow Torch Burner II Epic chat preferred. 06/26/2024 15:20 06/26/24 15:18 * Magda Figueredo MD - 06/26/2024 0792 EST Brief Update Note After discussion with primary nurse, nurse tea room manager, and primary team, decided to re-instate [...] MAGDA FIGUEREDO MD 06/26/2024 13:34 * Marleen Duran RN - 06/26/2024 1110 EST Marcos approached me his RN this morning and requested to speak to providers in regards to regaining off the unit privileges. Patient apologized for prior uncooperativeness and seemed remorseful. After speaking with the [place] [id number] tea room manager and [employer] (provider), it has been [...] disorder (seroquel) who presented as transfer from [facility] ED for High Grade MRSA bacteremia c/b [...] dropping ceftaroline or dapto if transfer to [place], and monitor sxs, blood cxs if sxs #Pain management, greatly improved - Acetaminophen 1g QID - increase gabapentin to 400 mg TID - naproxen 500 BID, Cr stable - pantoprazole 20 mg daily - AX SURVEY WORKER suboxone as below - Th BMP. 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 Virginia Downey MD MPH [facility] Inpatient Service 06/27/2024 8:01 * Aric [...] disorder (seroquel) who presented as transfer from [facility] ED for High Grade MRSA bacteremia c/b [...] dropping ceftaroline or dapto if transfer to [place], and monitor sxs, blood cxs if sxs [...] mg 3 times daily as needed - AX SURVEY WORKER suboxone as below - Mo/Th BMP - [...] psychiatry team for input on medication management. -AX SURVEY WORKER seroquel -lorazepam 1mg TID for anxiety #IVDU/OUD Patient sometimes decreases morning dose to 8mg for better efficacy of hydromorphone, monitor this on SEP. - AX SURVEY WORKER suboxone 16 mg AM and 8mg at [...] completion of IV antibiotics. Possible transfer to [place], may be able to have ceftaroline sent [...] disorder (seroquel) who presented as transfer from [facility] ED for High Grade MRSA bacteremia c/b [...] dropping ceftaroline or dapto if transfer to [place], and monitor sxs, blood cxs if sxs [...] -> 0.82 -> 0.96). Completed 5d course [id number]. - Acetaminophen 1g QID - increase gabapentin to 400 mg TID - Hydromorphone 2mg PO Q6h PRN - naproxen 500 BID, Cr stable - pantoprazole 20 mg daily - cyclobenzaprine 10 mg 3 times daily as needed - AX SURVEY WORKER suboxone as below - / BMP - [...] psychiatry team for input on medication management. -AX SURVEY WORKER seroquel -lorazepam 1mg TID for anxiety #IVDU/OUD Patient sometimes decreases morning dose to 8mg for better efficacy of hydromorphone, monitor this on SEP. - AX SURVEY WORKER suboxone 16 mg AM and 8mg at [...] completion of IV antibiotics. Possible transfer to [place], may be able to have ceftaroline sent [...] Hakeem Wagner MD 06/24/2024 13:51 * Chang Diaz, DO - 06/23/2024 1815 EST Internal Medicine [...] disorder (seroquel) who presented as transfer from [facility] ED for High Grade MRSA bacteremia c/b T10-11, L1-2 osteomyelitis, discitis, and T10-11 early phlegmon and early abscess. ID and orthopedic spine consulted. No surgical intervention indicated at this time. Now on rifampin, ceftaroline, and daptomycin due to persistent positive cultures. Cultures from 06/08 without growth. Continue to reassess quality of pain daily. Course c/b anxiety, [facility] Currently [facility]po; here until end of [...] dropping ceftaroline or dapto if transfer to [place], and monitor sxs, blood cxs if sxs [...] -> 0.82 -> 0.96). Completed 5d course [id number]. - Acetaminophen 1g QID - increase gabapentin to 400 mg TID - Decrease Hydromorphone to 2mg PO Q6h PRN - naproxen 500 BID, Cr stable - pantoprazole 20 mg daily - cyclobenzaprine 10 mg 3 times daily as needed - AX SURVEY WORKER suboxone as below - / BMP - [...] psychiatry team for input on medication management. -AX SURVEY WORKER seroquel -lorazepam 1mg TID for anxiety #IVDU/OUD Patient sometimes decreases morning dose to 8mg for better efficacy of hydromorphone, monitor this on SEP. - AX SURVEY WORKER suboxone 16 mg AM and 8mg at [...] completion of IV antibiotics. Possible transfer to [place], may be able to have ceftaroline sent with him ,pending coordinationwith pharmacy and CM. IF patient leaves unit, it will be considered an AMA discharge. He should be prescribed linezolid through 07/19/2024 Chang Diaz DO Internal Medicine PGY-3 Epic Secure Chat, #[id number] (via PAS) 06/23/24 18:16 Cosigned by Hakeem [...] for IV antibiotics for MRSA bacteremia. Appreciate CM assistance in identifying potential alternative facility. Hakeem Wagner MD 06/23/2024 18:23 * Porter Nicole - 06/23/2024 1111 EST [facility] Department of Case Management and Social Work [...] ABX dapto and ceftaroline. Request transfer to [facility] to be closer to home. Cost of ceftaroline is extensive requiring cost sharing between [facility] abd [facility]. Case escalated to care coordination system and CM furniture assembly supervisor. Awaiting response from hospital leads. Plan DC to [facility] with cost sharing of iv abx. E-Signature ROD Blcok/Quan Blow Torch Burner II Epic chat preferred. 06/23/2024 11:15 06/23/24 [...] disorder (seroquel) who presented as transfer from [facility] ED for High Grade MRSA bacteremia c/b T10-11, L1-2 osteomyelitis, discitis, and T10-11 early phlegmon and early abscess. ID and orthopedic spine consulted. No surgical intervention indicated at this time. Now on rifampin, ceftaroline, and daptomycin due to persistent positive cultures. Cultures from 06/08 without growth. Continue to reassess quality of pain daily. Course c/b anxiety, [facility] Currently coordinating dispo; here until end of [...] dropping ceftaroline or dapto if transfer to [place], and monitor sxs, blood cxs if sxs [...] -> 0.82 -> 0.96). Completed 5d course [id number]. - Acetaminophen 1g QID - increase gabapentin to 400 mg TID - Decrease Hydromorphone to 2mg PO Q6h PRN - naproxen 500 BID, Cr stable - pantoprazole 20 mg daily - cyclobenzaprine 10 mg 3 times daily as needed - AX SURVEY WORKER suboxone as below - / BMP - [...] psychiatry team for input on medication management. -AX SURVEY WORKER seroquel -lorazepam 1mg TID for anxiety #IVDU/OUD Patient sometimes decreases morning dose to 8mg for better efficacy of hydromorphone, monitor this on SEP. - AX SURVEY WORKER suboxone 16 mg AM and 8mg at [...] completion of IV antibiotics. Possible transfer to [place], may be able to have ceftaroline sent [...] 06/22/2024 1309 EST Request for Documentation Clarification [facility] Marcos Camejo ; VISIT [id number]; ACCT [id number] Final Query Response Sent: 06/22/24 13:06 EST [...] 11:57 EST From: GLORIA CARRERO RN To: rAic Peralta M.D., HAKEEM WAGNER MD Reason for [...] * Labs: 05/26/24 14:32-Procalcitonin: 0.30 ng/mL 05/26/24 14:61-X-[id number] Protein: 210.7 (H) * Other: Per ED note 05/26/24: '' He is not in acute distress ''...'' He is not ill-appearing or toxic-appearing. '' Per H&P 05/26/24: '' ...presented as ED to ED transfer from [facility] for high grade MRSAbacteremia and T10-L2 osteo-discitis [...] Porter Nicole - 06/21/2024 1122 EST [facility] Department of Case Management and Social Work Case Management Progress Note Patient Name Level of Care and Accommodation Code: Patient Class: Medically Ready: Y/N Marcos Camejo [facility] General Inpatient N Primary Dx: Decisional [...] cane, prosthetic(s) Number of caregivers reccommended: 0 [facility] Payor: [place]ID [place] / Plan[place] / Product Type: [place] / Barriers to Discharge [facility] to be closer to home. CM completed [id number]. [facility] can accommodate Daptomycin: Ceftaroline is the one they do not have on formulary but are checking with pharmacy to see if it is something that can be ordered Plan DC OSH for ongoing iv ABX . CM contact [facility] for options to supply pt with Ceftaroline. [facility] checking cost and consulting with Pharm furniture assembly supervisor. Bark Press Operator may be able to picking supervisor abx and bring to [place]. E-Signature ROD Block/Quan Blow Torch Burner II Epic chat preferred. 06/21/2024 11:25 06/21/24 [...] IV antibiotics. This was discussed with CM, Brimmer Blocker, APC, primary nurse,primary team. Review of Systems [...] 4/ Bcx positive MRSA @ 14hrs 05/27/2024: 4 Bcx positive MRSA @ 15hrs 05/29/2024: 2 Bcx positive MRSA @ 18hrs 05/30/2024: 2 Bcx positive MRSA @ 19.3hrs 06/01/2024: 4cx pos MRSA @ 17hrs & 29hrs 06/03/2024: 2/ Bcx with one set positive MRSA @ 36.1hrs; other set with no growth to date 06/04/2024: 4/ Bcx with one set positive MRSA @15.9hrs and 19hrs 06/05/2024: 2 Bcx with growth @27hrs 06/08/2024: 4 no growth to date Assessment Marcos Camejo is a 44 y.o. male with a PMHx notable for IVDU (on suboxone), TUD, mood disorder (seroquel) who presented as transfer from [facility] ED for High Grade MRSA bacteremia c/b [...] dropping ceftaroline or dapto if transfer to [place], and monitor sxs, blood cxs if sxs [...] -> 0.82 -> 0.96). Completed 5d course [id number]/25. - Acetaminophen 1g QID - increase gabapentin to 400 mg TID - Decrease Hydromorphone to 4mg PO Q6h PRN - naproxen 500 BID, Cr stable - pantoprazole 20 mg daily - cyclobenzaprine 10 mg 3 times daily as needed - AX SURVEY WORKER suboxone as below - Mo/ BMP - [...] psychiatry team for input on medication management. -AX SURVEY WORKER seroquel -lorazepam 1mg TID for anxiety #IVDU/OUD Patient sometimes decreases morning dose to 8mg for better efficacy of hydromorphone, monitor this on SEP. - AX SURVEY WORKER suboxone 16 mg AM and 8mg at [...] completion of IV antibiotics. Possible transfer to [place], may be able to have ceftaroline sent [...] today with primary team, primary nurse, nurse tea room manager, and hospital leadership regarding patient violation [...] disorder (seroquel) who presented as transfer from [facility] ED for High Grade MRSA bacteremia c/b [...] dropping ceftaroline or dapto if transfer to [place], and monitor sxs, blood cxs if sxs [...] -> 0.82 -> 0.96). Completed 5d course [id number]/25. - Acetaminophen 1g QID - increase gabapentin to 400 mg TID - Decrease Hydromorphone to 4mg PO Q3 PRN - naproxen 500 BID, Cr stable - pantoprazole 20 mg daily - cyclobenzaprine 10 mg 3 times daily as needed - AX SURVEY WORKER suboxone as below - Mo/Th BMP - [...] psychiatry team for input on medication management. -AX SURVEY WORKER seroquel -lorazepam 1mg TID for anxiety #IVDU/OUD Patient sometimes decreases morning dose to 8mg for better efficacy of hydromorphone, monitor this on SEP. - AX SURVEY WORKER suboxone 16 mg AM and 8mg at [...] with pt this morning about transfer to [facility]. Pt in agreement with transfer. Transfer initiated thru [facility]. [facility] did not offer yet due to options closer to patient's home- [facility]. Awaiting outcomes from referrals to those hospitals. ROD Block/Quan Blow Torch Burner II Epic chat preferred. 06/20/2024 8:46 * Lindsey Baker RN - 06/20/2024 3297 EST Data: HD#25 for MRSA bacteremia and T10-L2 osteo-discitis w epidural abscess. Action: IV abx given Response: Patient had uneventful night. Remains independent on and off unit. Compliant with off unit privileges. LINDSEY BAKER RN 06/20/2024 4:17 * Porter Nicole - 06/19/2024 1533 EST [facility] Department of Case Management and Social Work Case Management Progress Note Patient Name Level of Care and Accommodation Code: Patient Class: Medically Ready: Y/N Marcos Camejo Acute General Inpatient Primary Dx: Decisional Capacity: Y/N Primary [...] Stay (in days): Estimated Date of D/C: C Medicaid Status: 24 2-4 Primary Care Provider: [...] 600 q8 Plan CM requested transfer to [facility] via [id number] form today. CM will continue to follow pt and provide support for DC planning. E-Signature ROD Block/Quan Blow Torch Burner II Epic chat preferred. 06/19/2024 15:38 06/19/24 [...] disorder (seroquel) who presented as transfer from [facility] ED for High Grade MRSA bacteremia c/b T10-11, L1-2 osteomyelitis, discitis, and T10-11 early phlegmon and early abscess. ID and orthopedic spine consulted. No surgical intervention indicated at this time. Now on rifampin, ceftaroline, and daptomycin due to persistent positive cultures. Cultures from 06/08 without growth. Continue to reassess quality of pain daily. Course c/b anxiety, [facility] Currently [facility]; here until end of [...] dropping ceftaroline or dapto if transfer to [place], and monitor sxs, blood cxs if sxs [...] -> 0.82 -> 0.96). Completed 5d course [id number]/25. - Acetaminophen 1g QID - increase gabapentin to 400 mg TID - Decrease Hydromorphone to 4-6 mg PO Q3 PRN - naproxen 500 BID, Cr stable - pantoprazole 20 mg daily - cyclobenzaprine 10 mg 3 times daily as needed - AX SURVEY WORKER suboxone as below - Mo/Th BMP - [...] psychiatry team for input on medication management. -AX SURVEY WORKER seroquel -lorazepam 1mg TID for anxiety #IVDU/OUD Patient sometimes decreases morning dose to 8mg for better efficacy of hydromorphone, monitor this on SEP. - AX SURVEY WORKER suboxone 16 mg AM and 8mg at [...] requirements. Hakeem Wagner MD 06/19/2024 15:04 * ReppJohan MD - 06/18/2024 0702 EST Internal Medicine [...] disorder (seroquel) who presented as transfer from [facility] ED for High Grade MRSA bacteremia c/b [...] dropping ceftaroline or dapto if transfer to [place], and monitor sxs, blood cxs if sxs [...] -> 0.82 -> 0.96). Completed 5d course [id number]/25. - Acetaminophen 1g QID - increase gabapentin to 400 mg TID - Hydromorphone 6-8 mg PO Q3 PRN, will need to start tapering down soon - naproxen 500 BID, Cr down-trending, 30 today - pantoprazole 20 mg daily - cyclobenzaprine 10 mg 3 times daily as needed - AX SURVEY WORKER suboxone as below - Mo/Th BMP - [...] psychiatry team for input on medication management. -AX SURVEY WORKER seroquel -lorazepam 1mg TID for anxiety #IVDU/OUD Patient sometimes decreases morning dose to 8mg for better efficacy of hydromorphone, monitor this on SEP. - AX SURVEY WORKER suboxone 16 mg AM and 8mg at [...] daily Chang Diaz DO Internal Medicine PGY-3 Epic Secure Chat, #[id number] (via PAS) 06/18/24 13:31 ATTENDING ATTESTATION: Date [...] disorder (seroquel) who presented as transfer from [facility] ED for High Grade MRSA bacteremia c/b [...] -> 0.82 -> 0.96). Completed 5d course podumwmsn82/25. - Acetaminophen 1g QID - increase gabapentin to 400 mg TID - Hydromorphone 6-8 mg PO Q3 PRN, will need to start tapering down soon - naproxen 500 BID, Cr down-trending 06/15 - pantoprazole 20 mg daily - cyclobenzaprine 10 mg 3 times daily as needed - AX SURVEY WORKER suboxone as below - /Th BMP #Mood disorder #Anxiety Ok with seeing [...] psychiatry team for input on medication management. -AX SURVEY WORKER seroquel -lorazepam 1mg TID for anxiety #IVDU/OUD Patient sometimes decreases morning dose to 8mg for better efficacy of hydromorphone, monitor this on SEP. - AX SURVEY WORKER suboxone 16 mg AM and 8mg at [...] disorder (seroquel) who presented as transfer from [facility] ED for High Grade MRSA bacteremia c/b [...] -> 0.82 -> 0.96). Completed 5d course [id number]/25. - Acetaminophen 1g QID - increase gabapentin to 400 mg TID - Hydromorphone 6-8 mg PO Q3 PRN, will need to start tapering down soon - naproxen 500 BID, Cr down-trending 06/15 - pantoprazole 20 mg daily - cyclobenzaprine 10 mg 3 times daily as needed - AX SURVEY WORKER suboxone as below - / BMP #Mood [...] psychiatry team for input on medication management. -AX SURVEY WORKER seroquel -lorazepam 1mg TID for anxiety #IVDU/OUD Patient sometimes decreases morning dose to 8mg for better efficacy of hydromorphone, monitor this on SEP. - AX SURVEY WORKER suboxone 16 mg AM and 8mg at [...] Johan Campos MD Hospital Medicine Service 06/17/2024 8:41 * Aric Peralta MD - 06/15/2024 0965 EST Internal Medicine Progress Note Service Date: [...] 4/4 no growth to date Assessment Marcos C Bashir is a 44 y.o. male with a PMHx notable for IVDU (on suboxone), TUD, mood disorder (seroquel) who presented as transfer from [facility] ED for High Grade MRSA bacteremia c/b [...] -> 0.82 -> 0.96). Completed 5d course oigysksuz57/25. - Acetaminophen 1g QID - increase gabapentin to 400 mg TID - Hydromorphone 8 mg PO Q3 PRN, will need to start tapering down soon - naproxen 500 BID, Cr down-trending 06/15 - pantoprazole 20 mg daily - cyclobenzaprine 10 mg 3 times daily as needed - AX SURVEY WORKER suboxone as below - Mo/Th BMP #Mood [...] psychiatry team for input on medication management. -AX SURVEY WORKER seroquel -lorazepam 1mg TID for anxiety #IVDU/OUD Patient sometimes decreases morning dose to 8mg for better efficacy of hydromorphone, monitor this on SEP. - AX SURVEY WORKER suboxone 16 mg AM and 8mg at [...] the holiday. I discussed potential transfer to [facility] swing bed with patient today and he [...] 13:02 * Aric Peralta MD - 06/14/2024 1455 EST Internal Medicine Progress Note Service Date: [...] disorder (seroquel) who presented as transfer from [facility] ED for High Grade MRSA bacteremia c/b [...] mg 3 times daily as needed - AX SURVEY WORKER suboxone as below #Mood disorder #Anxiety Ok [...] psychiatry team for input on medication management. -AX SURVEY WORKER seroquel -lorazepam 1mg TID for anxiety #IVDU/OUD Patient sometimes decreases morning dose to 8mg for better efficacy of hydromorphone, monitor this on SEP. - AX SURVEY WORKER suboxone 16 mg AM and 8mg at [...] pending plan for continued IV abx therapy Airc Peralta MD Internal Medicine, PGY-1 Cosigned by Johan Campos MD at 06/14/2024 16:25 EST Associated attestation - Johan Campos MD - 06/14/2024 5345 EST ATTENDING ATTESTATION: Date of service: 06/14/2024 [...] IV abx, including potential swing bed at [place]. Johan Campos MD Hospital Medicine Service 06/14/2024 16:23 * Porter Nicole - 06/14/2024 1044 EST CM listed pt for [facility] [place] this day for iv abx therapy. CM initiatef request for transferto swing bed, [facility]. Discussed option of infusion center of iv abx. Pt agreed to drive self to infusion center multiple times a day for treatment. Awaiting abx plan from ID for possible tx at infusion center at [facility]. ROD Block/Quan Blow Torch Burner II Epic chat preferred. 06/14/2024 10:46 * Porter Nicole - 06/13/2024 1626 EST [facility] Department of Case Management and Social Work [...] and follow up at infusion center at [facility]? E-Signature ROD Block/Quan Blow Torch Burner II Epic chat preferred. 06/13/2024 16:29 06/13/24 16:26 * Marilyn Monet RN - 06/13/2024 1113 EST Vascular Access Progress Note Diagnosis: Active Hospital Problems Diagnosis *MRSA bacteremia Anxiety Discitis of thoracolumbar region Epidural abscess Sepsis due to methicillin resistant Staphylococcus aureus (MRSA) without acute organ dysfunction ([facility]) Acute pain Opioid use disorder Reason [...] disorder (seroquel) who presented as transfer from [facility] ED for High Grade MRSA bacteremia c/b [...] mg 3 times daily as needed - AX SURVEY WORKER suboxone as below #Mood disorder #Anxiety Ok [...] psychiatry team for input on medication management. -AX SURVEY WORKER seroquel -lorazepam 1mg TID for anxiety #IVDU/OUD Patient sometimes decreases morning dose to 8mg for better efficacy of hydromorphone, monitor this on SEP. - AX SURVEY WORKER suboxone 16 mg AM and 8mg at [...] disorder (seroquel) who presented as transfer from [facility] ED for High Grade MRSA bacteremia c/b [...] mg 3 times daily as needed - AX SURVEY WORKER suboxone as below #Mood disorder #Anxiety Ok [...] psychiatry team for input on medication management. -AX SURVEY WORKER seroquel -lorazepam 1mg TID for anxiety #IVDU/OUD Patient sometimes decreases morning dose to 8mg for better efficacy of hydromorphone, monitor this on SEP. - AX SURVEY WORKER suboxone 16 mg AM and 8mg at [...] reviewed. Pertinent positives include: Labs: WBC/RBC/HGB/HCT/PLT/ANC8.06/4.56/12.0/35.8/244/-- (05/31 08) Microbiology: 05/26 - BC X 2 - [...] MRSA bacteremia (bacteremic at least 11 days 05/26-18) Now cleared but significant concern for poor [...] time. Discussed with primary care team Олег Chilel MD 06/12/2024 6:15 I spent a total [...] narrowing of spinal canal 24 Hour Events: DAINA Subjective/Objective Subjective Earlier in the AM had 10/10 back pain but quickly improved after medication. Patient interviewed soon after he returned from walk to the kitchenette and is having better controlled pain. Thinks [...] disorder (seroquel) who presented as transfer from [facility] ED for High Grade MRSA bacteremia c/b [...] mg 3 times daily as needed - AX SURVEY WORKER suboxone as below #Mood disorder #Anxiety Ok [...] psychiatry team for input on medication management. -AX SURVEY WORKER seroquel -lorazepam 1mg TID for anxiety #IVDU/OUD Patient sometimes decreases morning dose to 8mg for better efficacy of hydromorphone, monitor this on SEP. - AX SURVEY WORKER suboxone 16 mg AM and 8mg at [...] 06/08/2024: 4/ no growth to date Assessment Assessment Marcos Camejo is a 44 y.o. male with a PMHx notable for IVDU (on suboxone), TUD, mood disorder (seroquel) who presented as transfer from [facility] ED for High Grade MRSA bacteremia c/b [...] mg 3 times daily as needed - AX SURVEY WORKER suboxone as below #Mood disorder #Anxiety Ok [...] team today for input on medication management. -AX SURVEY WORKER seroquel -lorazepam 1mg TID for anxiety #IVDU/OUD Patient sometimes decreases morning dose to 8mg for better efficacy of hydromorphone, monitor this on SEP. - AX SURVEY WORKER suboxone 16 mg AM and 8mg at [...] Asha Arellano DO, MPH PGY-1 Internal Medicine [facility] Cosigned by Meaghan Zapata MD at 06/10/2024 [...] Porter Nicole - 06/09/2024 1030 EST [facility] Department of Case Management and Social Work [...] Date of D/C: LTC Medicaid Status: Y 06/14 N Primary Care Provider: [facility] referred: Y/N Bed Offers: Y/N Escalated to Leadership: Troy Merida n/a N/a N Mobility Level: Recommended [...] CM needs for DC. E-Signature ROD Block/Quan Blow Torch Burner II Epic chat preferred. 06/09/2024 10:33 06/09/24 [...] disorder (seroquel) who presented as transfer from [facility] ED for High Grade MRSA bacteremia c/b [...] mg 3 times daily as needed - AX SURVEY WORKER suboxone as below #Mood disorder #Anxiety Ok [...] team today for input on medication management. -AX SURVEY WORKER seroquel -start lorazepam 1mg TID for anxiety #IVDU/OUD - AX SURVEY WORKER suboxone 16 mg AM and 8mg at [...] Asha Arellano DO, MPH PGY-1 Internal Medicine [facility] Cosigned by Meaghan Zapata MD at 06/09/2024 21:47 EST Associated attestation - Meaghan Zapata MD - 06/09/2024 4095 EST Attestation: Pt seen and examined; I have reviewed Dr. Arellano's note and agree with findings, A and P as outlined above, with my additions in blue. I have personally reviewed the laboratory and radiology results. I have personally spoken with and examined the patient. Meaghan Zapata MD * Remigio Ku MD - 06/09/2024 0569 EST Orthopaedic Spine Progress Note Problem: C3, [...] oz), SpO2 93%. 06/07 2300 - 06/08 2250 In: 1210 [P.O.:1210] Out: - General: Awake, alert, NAD Respiratory: Non-labored Extremities: UE: RIGHT Deltoid (C5) 5/5 Biceps (C5, 6) 5/5 Triceps (C7) 5/5 Wrist/Finger Ext (C7, 8) 5/5 Wrist/Finger Flex (C8, T1) 5/5 Interrosei (T1) 5/5 City Bus Driver (T1) 5/5 LEFT Deltoid (C5) 5/5 Biceps (C5, 6) 5/5 Triceps (C7) 5/5 Wrist/Finger Ext (C7, 8) 5/5 Wrist/Finger Flex (C8, T1) 5/5 Interrosei (T1) 5/5 City Bus Driver (T1) 5/5 RIGHT Brachioradialis (C5) 1+, Bicep [...] used for peripheral line insertion. Name of silver lap machine tender: Lavonne Duval RN LDAINFO BLOCK Peripheral IV [...] met? (chart all reasons) Antibiotics administered IV 06/08/241510 Date Dressing Changed 06/08/24 06/08/241510 Dressing date clearly marked on PIV site? Yes 06/08/241510 Site Assessment Clean/Dry/Intact 06/08/241510 Line Status Flushed;Blood returned 06/08/241510 Dressing Type Transparent 11/21/24 1511 Dressing Status/Care Changed/New 06/08/24 1511 Patient response: tolerated well Patient education: provided at bedside Additional study information (vein depth, vein size, compressibility, patency, in-plane vs. [id number], surrounding structures and post procedure available on the images, accessed via the imaging tab.) LAVONNE DUVAL RN 06/08/2024 * Cymraes, Aditya Witt MD - 06/08/2024 1354 EST Infectious Disease [...] disorder (seroquel) who presented as transfer from [facility] ED for High Grade MRSA bacteremia c/b [...] mg 3 times daily as needed - AX SURVEY WORKER suboxone as below #Mood disorder #Anxiety Says [...] work with him to help these symptoms. -AX SURVEY WORKER seroquel -s/p one time ativan dose this afternoon due to severity of symptoms -start hydroxyzine Q4 prn -consider med psych evaluation 06/09 -consider low dose lexapro #IVDU/OUD - AX SURVEY WORKER suboxone 16 mg AM and 8mg at [...] anemia: daily CBC, Fe studies #Mood disorder: AX SURVEY WORKER seroquel at bedtime #TUD: PRN nicotine replacement therapy Checklist: Consults: ortho, ID Diet: DIET REGULAR VTE Prophylaxis: lovenox 40 mg qd Code status: Full Code confirmed on admission; girlfriend is DPOA PT/OT: not ordered on admission Discharge Plan: pending clinical improvement Asha Arellano DO, MPH PGY-1 Internal Medicine [facility] ATTENDING ATTESTATION: Date of service:06/08/2024 I have interviewed and examined the patient. I personally reviewed laboratories studies, radiographic studies, ECG, and prior records. I discussed the case with: the medicine house staff team. I agree with and edited (in Bold) the findings and plan of care as documented in the note above. Virginia Downey MD MPH [facility] Inpatient Service 06/15/2024 6:26 * Porter Nicole - 06/07/2024 1213 EST [facility] Department of Case Management and Social Work [...] Bed Offers: Y/N Escalated to Leadership: Y/Spencer Merida n/a N/a N Mobility Level: Recommended D/C Location Payor: Bedside Mobility Assessment Tool (BMAT) Bedrest or non-weight bearing orders?: No Mobility level determined: Mobility Level 4 use gait belt, walker, crutches, cane, prosthetic(s) Number of caregivers reccommended: 0 Possible transfer back to [facility]; home once iv abx is completed. Payor: MEDICAID [place]CO [place] / Plan: MEDICA[place] / Product Type: Medicaid [place] GL / Barriers to Discharge 06/06/24: High grade MRSA bacteremia in the setting [...] Medical readiness. Spoke with Vivian TO at [facility]. They cannot take pt if abx isDaptomycin because of cost and shelf life? ID note and internal medicine note faxed to [facility] [phone]. E-Signature ROD Block/Quan Blow Torch Burner II Epic chat preferred. 06/07/2024 12:17 06/07/24 [...] disorder (seroquel) who presented as transfer from [facility] ED for High Grade MRSA bacteremia c/b [...] mg 3 times daily as needed - AX SURVEY WORKER suboxone as below #Mood disorder #Anxiety Says [...] work with him to help these symptoms. -AX SURVEY WORKER seroquel -s/p one time ativan dose this afternoon due to severity of symptoms -start hydroxyzine Q4 prn -consider med psych evaluation 06/09 -consider low dose lexapro #IVDU/OUD - AX SURVEY WORKER suboxone 16 mg AM and 8mg at [...] anemia: daily CBC, Fe studies #Mood disorder: AX SURVEY WORKER seroquel at bedtime #TUD: PRN nicotine replacement therapy Checklist: Consults: ortho, ID Diet: DIET REGULAR VTE Prophylaxis: lovenox 40 mg qd Code status: Full Code confirmed on admission; girlfriend is DPOA PT/OT: not ordered on admission Discharge Plan: pending clinical improvement Asha Arellano DO, MPH PGY-1 Internal Medicine [facility] ATTENDING ATTESTATION: Date of service: 06/07/2024 I [...] as described above. Virginia Downey MD MPH [facility] Inpatient Service 06/15/2024 6:25 * Cymraes, Aditya Witt MD - 06/06/2024 4897 EST Infectious Disease Consultation Follow Up Note [...] reviewed. Pertinent positives include: Labs: WBC/RBC/HGB/HCT/PLT/ANC8.06/4.56/12.0/35.8/244/-- (05/31 08) Microbiology: 05/26 - BC X 2 - [...] * Virginia Downey MD MPH - 06/06/2024 0720 EST Internal Medicine Progress Note Service Date: [...] set positive MRSA @15.9hrs and 19hrs 06/05/2024: 4/4 Bcx collected at 09:40 no growth to date Assessment Assessment Marcos Camejo is a 44 y.o. male with a PMHx notable for IVDU (on suboxone), TUD, mood disorder (seroquel) who presented as transfer from [facility] ED for High Grade MRSA bacteremia c/b [...] mg 3 times daily as needed - AX SURVEY WORKER suboxone as below #IVDU/OUD - Patient declining AM suboxone dose last few days as he gets more relief from the hydromorphone ifhe does not take this - AX SURVEY WORKER suboxone 16 mg AM and 8mg at [...] anemia: daily CBC, Fe studies #Mood disorder: AX SURVEY WORKER seroquel at bedtime #TUD: PRN nicotine replacement therapy Checklist: Consults: ortho, ID Diet: DIET REGULAR VTE Prophylaxis: lovenox 40 mg qd Code status: Full Code confirmed on admission; girlfriend is DPOA PT/OT: not ordered on admission Discharge Plan: pending clinical improvement Asha Arellano DO, MPH PGY-1 Internal Medicine [facility] ATTENDING ATTESTATION: Date of service: 06/06/2024 I have interviewed and examined the patient. I personally reviewed laboratories studies, radiographic studies, ECG, and prior records. I discussed the case with: the medicine house staff team. I agree with and edited (in Blue) the findings and plan of care as documented in the note above. Virginia Downey MD MPH [facility] Inpatient Service 06/06/2024 12:23 * Porter Nicole - 06/05/2024 1015 EST [facility] Department of Case Management and Social Work Case Management Progress Note Patient Name Level of Care and Accommodation Code: Patient Class: Medically Ready: Y/N Marcos Camejo [facility] General Inpatient N Primary Dx: Decisional [...] (Stretcher Best at this time) Transfer to [facility] in [place] Payor: MEDICAID [place] / Plan[place] / Product Type: Medicaid [place] / Barriers to Discharge IV abx hx of IVDU. Pt not medically ready Plan DC back to [facility] pending medical readiness and bed offer. E-Signature ROD Block/Quan Blow Torch Burner II Epic chat preferred. 06/05/2024 10:17 06/05/24 [...] with one set positive MRSA @15.9hrs 06/05/2024: 4/4 Bcx collected at 09:40 Assessment Assessment Marcos Camejo is a 44 y.o. male with a PMHx notable for IVDU (on suboxone), TUD, mood disorder (seroquel) who presented as transfer from [facility] ED for High Grade MRSA bacteremia c/b [...] mg 3 times daily as needed - AX SURVEY WORKER suboxone as below #IVDU/OUD - decreasing suboxone AM dose 10 8mg for better efficacy of hydromorphone for now - AX SURVEY WORKER suboxone 16 mg AM and 8mg at [...] anemia: daily CBC, Fe studies #Mood disorder: AX SURVEY WORKER seroquel at bedtime #TUD: PRN nicotine replacement therapy Checklist: Consults: ortho, [facility] Diet: DIET REGULAR VTE Prophylaxis: lovenox 40 mg qd Code status: Full Code confirmed on admission; girlfriend is DPOA PT/OT: not ordered on admission Discharge Plan: pending clinical improvement Asha Arellano DO, MPH PGY-1 Internal Medicine [facility] ATTENDING ATTESTATION: Date of service: 06/05/2024 I [...] the above note. Virginia Downey MD MPH [facility] Inpatient Service 06/05/2024 13:13 * Virginia [...] 08:28 with no growth to date 06/04/2024: 4/4 Bcx drawn at 11:44 Assessment Assessment Marcos Camejo is a 44 y.o. male with a PMHx notable for IVDU (on suboxone), TUD, mood disorder (seroquel) who presented as transfer from [facility] ED for High Grade MRSA bacteremia c/b [...] mg 3 times daily as needed - AX SURVEY WORKER suboxone as below #bloating Having BMs -simethicone #IVDU/OUD -Trial of decreasing suboxone AM dose to 10mg 06/04 for better efficacy of hydromorphone, continue to reassess pain and modify as needed - AX SURVEY WORKER suboxone 16 mg AM and 8mg at bedtime (verified on VPMS) #Large interatrial septal aneurysm #Small PFO and secundum ASD with L->R shunting - Noted on MAIRBEL, no sequelae (stroke, HD changes, bleeding) #Constipation, [...] anemia: daily CBC, Fe studies #Mood disorder: AX SURVEY WORKER seroquel at bedtime #TUD: PRN nicotine replacement therapy Checklist: Consults: ortho, ID Diet: DIET REGULAR VTE Prophylaxis: lovenox 40 mg qd Code status: Full Code confirmed on admission; girlfriend is DPOA PT/OT: not ordered on admission Discharge Plan: pending clinical improvement Asha Arellano DO, MPH PGY-1 Internal Medicine [facility] ATTENDING ATTESTATION: Date of service: 06/04/2024 I have interviewed and examined the patient. I personally reviewed laboratories studies, radiographic studies, ECG, and prior records. I discussed the case with: the medicine house staff team. I agree with and edited (in Blue) the findings and plan of care as documented in the note above. Virginia Downey MD MPH [facility] Inpatient Service 06/05/2024 7:55 * Virginia [...] disorder (seroquel) who presented as transfer from [facility] ED for High Grade MRSA bacteremia c/b [...] 3 times daily as needed - resume AX SURVEY WORKER suboxone as below #bloating Having BMs -simethicone #IVDU/OUD - AX SURVEY WORKER suboxone 16 mg AM and 8mg at [...] anemia: daily CBC, Fe studies #Mood disorder: AX SURVEY WORKER seroquel at bedtime #TUD: PRN nicotine replacement therapy Checklist: Consults: ortho, ID Diet: DIET REGULAR VTE Prophylaxis: lovenox 40 mg qd Code status: Full Code confirmed on admission; girlfriend is DPOA PT/OT: not ordered on admission Discharge Plan: pending clinical improvement Asha Arellano DO, MPH PGY-1 Internal Medicine [facility] ATTENDING ATTESTATION: Date of service: 06/03/2024 I have interviewed and examined the patient. I personally reviewed laboratories studies, radiographic studies, ECG, and prior records. I discussed the case with: the medicine house staff team. I agree with and edited (in Blue, if needed) the findings and plan of care as documented in the note above. Virginia Downey MD MPH [facility] Inpatient Service 06/03/2024 17:10 * Trav Perez [...] Na/K/Cl/CO2: 138/4.8/101/24 (05/31 813) BUN/Cr/glu/ALT/AST/amyl/lip: --/--/--/04/01/--/-- (06/01 08) Assessment: Marcos Camejo is a 44 y.o. [...] perspective Trav Perez MD Orthopaedics PGY-4 Pager #[phone] 06/03/24 8:03 * Virginia Downey MD MPH - 06/02/2024 0920 EST Internal Medicine Progress Note Service Date: [...] disorder (seroquel) who presented as transfer from [facility] ED for High Grade MRSA bacteremia c/b [...] 3 times daily as needed - resume AX SURVEY WORKER suboxone as below #IVDU/OUD - AX SURVEY WORKER suboxone 16 mg AM and 8mg at bedtime (verified on VPMS) - Temporarily decreased to 10mg + 6 mg to aid in pain management - Resume AX SURVEY WORKER suboxone dosing on 06/03 #Large interatrial septal [...] anemia: daily CBC, Fe studies #Mood disorder: AX SURVEY WORKER seroquel at bedtime #TUD: PRN nicotine replacement [...] the note above. Virginia Downey MD MPH [facility] Inpatient Service 06/03/2024 8:01 * Porter Nciole - 06/01/2024 0824 EST [facility] Department of Case Management and Social Work [...] level determined: (Stretcher Best at this time) [facility] Payor: [place] / Plan[place] / Product Type: [place] GL / Barriers to Discharge Medical readiness. IV abx; hx of IVDU. Plan: CM left message for Vivian Castro older adult social work specialist at [facility] [phone] about potential t/f back to [facility] for IV abx when medically ready. E-Signature ROD Block/Quan Blow Torch Burner II Epic chat preferred. 06/01/2024 8:28 06/01/24 [...] 86.2 kg (190 lb), SpO2 95%. 05/30 2300 - 05/31 225 In: 2240 [P.O.:2240] Out: - General: No acute distress Cardio: Appears well perfused Respiratory: Non-labored Focused MSK: Right Upper Extremity Left Upper Extremity Deltoid (C5) 5/5 Biceps (C5, 6) 5/5 Triceps (C7) 5/5 Wrist/Finger Ext (C7, 8) 5/5 Wrist/Finger Flex (C8, T1) 5/5 Interrosei (T1) 5/5 City Bus Driver (T1) 5/5 Deltoid (C5) 5/5 Biceps (C5, 6) 5/5 Triceps (C7) 5/5 Wrist/Finger Ext (C7, 8) 5/5 Wrist/Finger Flex (C8, T1) 5/5 Interrosei (T1) 5/5 City Bus Driver (T1) 5/5 Sensation intact (C5/6/7/8/T1 distributions). Sensation [...] disorder (seroquel) who presented as transfer from [facility] ED for High Grade MRSA bacteremia c/b [...] 3 times daily as needed - decreased AX SURVEY WORKER suboxone as below #IVDU/OUD - AX SURVEY WORKER suboxone 16 mg AM and 8mg at [...] anemia: daily CBC, Fe studies #Mood disorder: AX SURVEY WORKER seroquel at bedtime #TUD: PRN nicotine replacement [...] patient. DOS 06/01/24. Meaghan Zapata MD * CymraesAditya MD - 05/31/2024 1056 EST Infectious Disease [...] 86.2 kg (190 lb), SpO2 95%. 05/30 700 - 05/31 659 In: 640 [P.O.:640] Out: - General: No acute distress Cardio: Appears well perfused Respiratory: Non-labored Focused MSK: Right Upper Extremity Left Upper Extremity Deltoid (C5) 5/5 Biceps (C5, 6) 5/5 Triceps (C7) 5/5 Wrist/Finger Ext (C7, 8) 5/5 Wrist/Finger Flex (C8, T1) 5/5 Interrosei (T1) 5/5 City Bus Driver (T1) 5/5 Deltoid (C5) 5/5 Biceps (C5, 6) 5/5 Triceps (C7) 5/5 Wrist/Finger Ext (C7, 8) 5/5 Wrist/Finger Flex (C8, T1) 5/5 Interrosei (T1) 5/5 City Bus Driver (T1) 5/5 Sensation intact (C5/6/7/8/T1 distributions). Sensation [...] (seroquel) who presents as direct transfer from [facility] ED for High Grade MRSA bacteremia c/b [...] 3 times daily as needed - decreasing AX SURVEY WORKER suboxone as below #IVDU/OUD - AX SURVEY WORKER suboxone 16 mg AM and 8mg at [...] anemia: daily CBC, Fe studies #Mood disorder: AX SURVEY WORKER seroquel at bedtime #TUD: PRN nicotine replacement [...] attestation - Meaghan Zapata MD - 05/31/2024 1731 EST Attestation: Pt seen and examined; I [...] 86.2 kg (190 lb), SpO2 94%. 05/29 700 - 05/30 659 In: 1576 [P.O.:1476; I.V.:100] Out: - General: [...] perspective Trav Perez MD Orthopaedics PGY-4 Pager #[phone] 05/30/24 12:41 * Porter Nicole - 05/30/2024 1107 EST Initial Case Management/Social Work Assessment and Discharge Plan/Readmission Risk Assessment REASON FOR ADMISSION: Discitis of thoracolumbar region Patient understands reason for admission: Yes PATIENT INFO VERIFIED: PCP, Contact Info, Address Type of housing (single family, condo, apartment, [facility], single room occupancy, [facility] funded hotel room, group fpc) - house Who does the patient live with? girlfriend Does the patient have access to their own bedroom/bathroom/kitchen - or is it shared with others? Y Name of housing complex (ex [facility], [facility], etc)- n/a Housing Authority/Managing Organization - n/a Community Care Providers (sample case porter, [facility] nurse, etc) name and contact information- n/a Discharge Delay Risk Assessment 2. Hospitalization: Unplanned admission Major Barrier day total 1-6: 1 Does the patient meet criteria to be escalated?: Yes How was escalation determined?: Blow Torch Burner discretion LIVING ARRANGEMENTS AND ACCESSIBILITY ISSUES: Living Arrangements: Spouse / significant other Levels: 2 Stairs to enter: 1 Handicap access: Railings into home Bathroom located on bedroom level?: No What in home social supports are available to the patient? Spouse / significant other Is 08/02 care available? NA ADVANCED DIRECTIVES, POA &/or [...] Final Discharge Destination: Home with girlfriend CULTURAL, SAMARITAN and/or LANGUAGE factors affecting health care/discharge planning: Spiritual/Cultural Requests: None Insurance Information: Medical Insurance: Yes Type of insurance: [place]) Nutrition: DISCHARGE RISK ASSESSMENT: Polypharmacy, > 7 [...] Home Health Services: None DME Provider: Pharmacy: [id number] - [place], [place] - [address] [facility] [id number] [facility] [id number] [place], [place] [address] [facility] [address] [facility] [address] [place], [place] - [address] [facility] [address] [facility] [address] Home Health: Other: POST HOSPITAL TRANSITION PLAN: Marcos Camejo is a 44 y.o. 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 She would be [...] was seen as part of work-up at [facility]. CM met with pt at bedside. Patient [...] he a ride when medically ready to [place]. Anticipate no CM needs. Anticipate pt will remain inpatient until completion of IV abx due to hx ofIVDU. CM reached out to ID regarding duration of IV abx, which is 6-8 weeks. ROD Block/Quan Blow Torch Burner II Epic chat preferred. 05/30/2024 11:14 PORTER [...] (seroquel) who presents as direct transfer from [facility] ED for High Grade MRSA bacteremia c/b [...] 3 times daily as needed - decreasing AX SURVEY WORKER suboxone as below #IVDU/OUD - AX SURVEY WORKER suboxone 16 mg AM and 8mg at [...] anemia - daily CBC #Mood disorder - AX SURVEY WORKER seroquel at bedtime #TUD - Declined nicotine [...] (seroquel) who presents as direct transfer from [facility] ED for High Grade MRSA bacteremia c/b [...] 3 times daily as needed - decreasing AX SURVEY WORKER suboxone as below #IVDU/OUD - AX SURVEY WORKER suboxone 16 mg AM and 8mg at [...] anemia - daily CBC #Mood disorder - AX SURVEY WORKER seroquel at bedtime #TUD - Declined nicotine [...] Associated attestation - Meaghan Zapata MD - 05/29/2024 2101 EST Attestation: Pt seen and examined; I [...] home.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 ROD Block/Quan Blow Torch Burner II Epic chat preferred. 05/29/2024 14:56 * [...] weight 86.2 kg (190 lb), SpO2 94%. 05/270 - 05/28 2259 In: 480 [P.O.:480] Out: 425 [Urine:425] Vitals: VSS General: NAD Respiratory: Non-labored Right Upper Extremity Left Upper Extremity Deltoid (C5) 5/5 Biceps (C5, 6) 5/5 Triceps (C7) 5/5 Wrist/Finger Ext (C7, 8) 5/5 Wrist/Finger Flex (C8, T1) 5/5 Interrosei (T1) 5/5 City Bus Driver (T1) 5/5 Deltoid (C5) 5/5 Biceps (C5, 6) 5/5 Triceps (C7) 5/5 Wrist/Finger Ext (C7, 8) 5/5 Wrist/Finger Flex (C8, T1) 5/5 Interrosei (T1) 5/5 City Bus Driver (T1) 5/5 Negative Soriano Negative Soriano Sensation [...] * José Luis Mendoza MD - 05/28/2024 1807 EST Orthopedic spine examination: Met the patient at bedside he is having no radicular symptoms no bowel incontinence or bladder incontinence. No saddle anesthesia. Objective: No acute distress Nonlabored breathing on room air Focused spine examination: He has 5/5 strength display trimmer interossei wrist extension wrist flexion biceps triceps [...] PGY3. * He Benites MD - 05/28/2024 0629 EST Orthopaedic Spine Progress Note Hospital Admission: [...] Flex (C8, T1) 5/5 Interrosei (T1) 5/5 City Bus Driver (T1) 5/5 Deltoid (C5) 5/5 Biceps (C5, 6) 5/5 Triceps (C7) 5/5 Wrist/Finger Ext (C7, 8) 5/5 Wrist/Finger Flex (C8, T1) 5/5 Interrosei (T1) 5/5 City Bus Driver (T1) 5/5 Brachioradialis (C5) 1+, Bicep (C5) [...] on Suboxone, presenting as a transfer from [facility] for 2 weeks of lower back [...] (seroquel) who presents as direct transfer from [facility] ED for MRSA bacteremia c/b thoracicand lumbar [...] 3 times daily as needed - decreasing AX SURVEY WORKER suboxone to 10mg in AM and 6 mg in PM (from 16 mg and 8 mg AX SURVEY WORKER) dose temporarily 05/28 for allowance of more hydromorphone binding while in acute pain as below #IVDU/OUD - AX SURVEY WORKER suboxone 16 mg AM and 8mg at [...] 11-12. - daily CBC #Mood disorder - AX SURVEY WORKER seroquel at bedtime #TUD - Patient did not want scheduled nicotine replacement on admission - Nicotine lozenges prn available Checklist: Consults: ortho, ID Diet: DIET REGULAR VTE Prophylaxis: lovenox 40 mg qd Code status: Full Code confirmed on admission; girlfriend is DPOA PT/OT: not ordered on admission Discharge Plan: pending clinical improvement Asha Arellano DO, MPH PGY-1 Internal Medicine [facility] Cosigned by Martha Syed MD MPH at [...] Martha Syed MD MPH 05/28/2024 13:00 * Sury Dmitry - 05/27/2024 1733 EST Discharge Delay Risk Assessment 2. Hospitalization: Unplanned admission Major Barrier day total 1-6: 1 Does the patient meet criteria to be escalated?: Yes How was escalation determined?: Blow Torch Burner discretion Information taken from H&P and Chart Review; no clear discharge delays identified, but Pt has been escalated for extra support in case IV Abx regimen requires continuous hospitalization. Dmitry Sury Triple Drum Operator II Per-Misty [email or web address] Bashir Sy MD - 05/27/2024 1416 [...] (seroquel) who presents as direct transfer from [facility] ED for MRSA bacteremia c/b thoracicand lumbar [...] 10 mg 3 times daily as needed AX SURVEY WORKER suboxone - TTE - ID consulted, applicate [...] to be elevated, f/u A1c #IVDU/OUD - AX SURVEY WORKER suboxone 12 mg AM and 8mg at [...] 11-12. - daily CBC #Mood disorder - AX SURVEY WORKER seroquel at bedtime #TUD - Patient did not want scheduled nicotine replacement on admission - Nicotine lozenges prn available Checklist: Consults: ortho, ID Diet: DIET REGULAR VTE Prophylaxis: lovenox 40 mg qd Code status: Full Code confirmed on admission; girlfriend is DPOA PT/OT: not ordered on admission Discharge Plan: pending clinical improvement Asha Arellano DO, MPH PGY-1 Internal Medicine [facility] Cosigned by Martha Syed MD MPH at [...] 16:57 * Agustin Whitt MD - 05/27/2024 5774 EST Orthopaedic Spine Progress Note Problem: C3, [...] Flex (C8, T1) 5/5 Interrosei (T1) 5/5 City Bus Driver (T1) 5/5 LEFT Deltoid (C5) 5/5 Biceps (C5, 6) 5/5 Triceps (C7) 5/5 Wrist/Finger Ext (C7, 8) 5/5 Wrist/Finger Flex (C8, T1) 5/5 Interrosei (T1) 5/5 City Bus Driver (T1) 5/5 RIGHT Brachioradialis (C5) 1+, Bicep [...] on Suboxone, presenting as a transfer from [facility] for 2 weeks of lower back [...] Patient presents with Back Pain Tx from [facility] s/p diagnosis of abscess at T10, T11, L1, and L2. Upon arrival to ED, VSS on RA, 04/27 back pain. HPI Marcos Camejo is a 44 y.o. 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 She would be [...] was seen as part of work-up at [facility]. Review of Systems A complete 10 point [...] injection 2 mg, 2 mg, intradermal, PRN, Liudmila Sue MD nicotine polacrilex (COMMIT) 2 mg [...] mL IVPB, 20 mg/kg, intravenous, Now, Taj Parsons, DO, 1,750 mg at 05/26/24 1457 vancomycin [...] (seroquel) who presents as direct transfer from [facility] ED for MRSA bacteremia c/b thoracicand lumbar [...] 10 mg 3 times daily as needed, AX SURVEY WORKER suboxone -could add gabapentin and/or NSAID if [...] Hgb 11-12. - daily CBC #IVDU/OUD - AX SURVEY WORKER suboxone 12 mg AM and 8mg at bedtime (verified on VPMS) -if pain control an issue despite the above measure, would consider decreasing suboxone (eg 10mg + 6 mg) and adding dilaudid PO prn. For now will try to stick with multi-modal non-opioid strategy -patient denies recent drug use, but we will remain vigilant for possible withdrawal symptoms #Mood disorder - AX SURVEY WORKER seroquel at bedtime #TUD - Patient did [...] Some of this note was transcribed with Hedgeableating software. While it was proofread, please forgive [...] presented as ED to ED transfer from [facility] for high grade MRSA bacteremia and T10-L2 [...] Central Catheter Insertion First Catheter This Session machine leather trimmer: Patient Location: [id number] Preliminary Data: Insertion Date: 06/13/24 Insertion Time: 1827 First Train Planner: Shyann Encinas RN/MA Documenting Procedure: tamara chandler [...] Line Operators: Number Of Operators: 1 First Train Planner's Name: Shyann nEcinas RN First Train Planner's Title: Vascular valve setter Unless otherwise noted, there were no complications, [...] consider adding basal insulin. Yuki Luna RN [facility] Diabetes Nurse Clinician Contact via secure chat [...] steroids. Illness, Infection or Injury: short or longterm illness, even a migraine. * Claudia Eng [...] found for: ZINC, COPPER, SELENIUM, THIAMINE, FOLATE, [id number], METMMETHY, VITEALPH, RETINOL, VITD Lab Results Component [...] Eng RD, CD (Call PAS or use Integral Vision (Swirl) to page RD covering this unit) * Rene Jain MD - 06/09/2024 1631 EST Initial Psychiatric Consultation Patient Name: Marcos Camejo : 1980 Admit Date: 2024 ditch inspector: Raffi Merida Attending Provider: Meaghan Zapata,* Date [...] prior suicide attempts who was admitted to [facility] on 2024 for MRSA bacteremia and T10-L2 [...] helpful. 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 male with a reported psychiatric history of OUD, PTSD, ADHD, unspecified BPAD per chart review and a medical history notable for MSSA bacteremia, Hep C with no prior psychiatric hospitalizations and no prior suicide attempts who was admitted to [facility] on 2024 for MRSA bacteremia and T10-L2 [...] MD 06/09/2024 16:59 * Moe Mcgee MD [facility] [place] - 05/27/2024 0947 EST Infectious Diseases Initial Consult Admit Date: 2024 Date of Service: 05/27/2024 Requesting Physician: Martha Syed Reason for Consult: Vertebral osteomyelitis HPI Marcos Camejo is a 44 y.o. male with IVDU admitted 2024 for vertebral osteomyelitis and MRSA bacteremia. Per outside records, he presented back to [facility] in [place] 05/25 for 4/4 positive blood cultures growing MRSA. He had an MRI spoine which showed T10-11, L1-2 osteomyelitis/discitisand T10-11 early phlegmon and early abscess. He was started on vancomycin and transferred to [facility] due to lack of beds at [facility]. He was seen by Orthopedics here at [facility] who felt he was neurolgicintact without need [...] IVDU Surgical History Hernia repair Allergies None AX SURVEY WORKER Medications Suboxone Anti-infectives Current: Vancomycin 05/25 Previous: [...] ago. Relationships / living situation: Lives in [place]. Family History Reviewed in chart. Vital Signs [...] Hgb 10.9 Plt N/A Cr 0.61 Microbiology [facility] 05/24/2024 Blood x2: MRSA [facility] 05/01/2024 Syphilis Ab: Negative Quantiferon: Negative HAV tAB+ HBV cAb-, sAb+, sAg- HCV RNA: 474,000 HIV Ab/Ag 4th gen: Negative 2024 Blood x2: MRSA Imaging [facility] 05/25/2024 MRI C, T, L spine w [...] appropriate. Electronically signed by Moe Mcgee MD [facility] [place] at 05/28/2024 10:04 EST * He Benites MD - 2024 1210 EST Orthopaedic Spine Surgery Consultation Consultation requested by: Dr. Parsons for: T10-L2 osteomyelitis HPI: Marcos Camejo is a 44 y.o. male with past medical history significant for former IV drug use onSuboxone, presenting as a transfer from [facility] for osteomyelitis discitis T10-L2 identified on [...] tablet Take 80 mg by mouth daily. ProviderChikis MD Multivitamins with Minerals tablet Take 1 Tab by mouth daily. ProviderChikis MD NAPROXEN SODIUM (ALEVE ORAL) Take by mouth. Fa, Emergency Nurse, RN No Known Allergies History reviewed. No pertinent family history. Social History: Former IV drug use, quit 6 months ago. 1 pack/day smoker. Denies EtOH. Lives in [place] with his girlfriend in a house. Not [...] Flex (C8, T1) 5/5 Interrosei (T1) 5/5 City Bus Driver (T1) 5/5 Deltoid (C5) 5/5 Biceps (C5, 6) 5/5 Triceps (C7) 5/5 Wrist/Finger Ext (C7, 8) 5/5 Wrist/Finger Flex (C8, T1) 5/5 Interrosei (T1) 5/5 City Bus Driver (T1) 5/5 Brachioradialis (C5) 1+, Bicep (C5) [...] bodies. No cord edema. Assessment: Marcos Camejo [id number] 1980 Marcos Camejo is a 44 y.o. male for former IV drug use on Suboxone, presenting as a transfer from [facility] for 2 weeks of lower back [...] MD PGY-2 Orthopaedic Surgery 2024 12:59 Pager #[phone], or EPIC Chat Cosigned by Dane Go MD at 2024 14:41 EST documented in this encounter ED Notes * Taj Parsons, DO - 2024 1115 EST Emergency Department Visit [...] to the ED as a transfer from [facility] with known abscesses at T10,T11, L1 and L2 with associated discitis. The patient reports several days of back pain and abdominal pain. He says he has not had a bowel movement in 4 to 5 days. He also reports difficulty urinating, noting he has not voided since last night. He says his bladder does not feel full. He received vancomycin at [facility] before being transferred. The patient denies recent IV drug use, the last time heinjected was a few years ago. History was provided by: patient and medical records Records reviewed include: Transfer Note from [facility] - The patient presented there severaldays ago [...] D: Patient noted with discharge orders to: [facility]. A: Prescriptions e-scripted. Reviewed discharge instructions and [...] sleep well this shift. End of Shift [id number] Data: Pt is A/OX3/Ind. Full Code. Room Air. VS stable. MRSA Iso. FS ACHS. PICC to GREG[facility]IO, flushes wellwith brisk blood return. Action: Intermittent IV Abx scheduled until 07/20/24. Response: Pt is resting at bedside at this time. Call banda within reach. WILFREDO ALFONSO RN 07/02/2024 5:18 * Plan of Care - Neel Hartmann RN - 06/30/2024 2333 EST Problem: Daily Care Plan Goals Goal: Care Plan Documentation Flowsheets (Taken 06/30/2024 1911) Area of Focus: Sleep Goal This Shift: [...] 07/01/2024 * Plan of Care - Keira Patiño RN - 06/30/2024 1412 EST Problem: Daily Care [...] Documentation Outcome: Met This Shift Flowsheets (Taken 06/28/20242329 by Gabriel Carter, DAVID) Area of Focus: [...] Care Plan Documentation Outcome: Ongoing Flowsheets (Taken 06/28/20240) Area of Focus: Pain/ Comfort Goal This [...] today. BG 201 at dinner. Rates pain 09/25. Action: Pt medicated per SEP. Insulin given [...] 0413 Area of Focus: Pain/ Comfort Taken 06/27/20248 Goal This Shift: Pt will emain comfortable [...] Care - Cleo Babcock RN - 06/27/2024 0349 EST Problem: Daily Care Plan Goals Goal: Care Plan Documentation Outcome: Ongoing Flowsheets (Taken 06/27/2024 0349) Area of Focus: Sleep Data: Assumed care [...] MRSA bacteremia , Marcelo-11,L1-2 osteomyelitis. PICC in [facility]. Pt educated on FS & insulin. Pt [...] within reach. * Plan of Care - rTacie Nelson RN - 06/25/2024 0344 EST Problem: [...] NELSON RN 06/25/2024 3:44 * Plan of Care - Artie Bejarano RN - 06/24/2024 1307 [...] BM's, independent in room. Action: Medicated per SEP. Clustered care to promote rest. Hourly rounding completed. Response: Pt resting in bed with call banda within reach, RR WNL. TRACIE NELSON RN 06/24/2024 4:51 * Plan of Care - Liudmial Hale RN - 06/23/2024 1500 EST Problem: Daily Care Plan Goals Goal: Care Plan Documentation Outcome: Ongoing Flowsheets (Taken 06/23/2024 0700) Goal This Shift: pt communicates needs this shift Data: HD28 s/p MRSA, T10-11, L1-2 abscess. IV abx in RUE PICC. VSS on RA, indep in room. Rating pain 6-7/10. Action: Medicated per SEP. Clustered care to promote rest, [...] early phlegmon and early abscess. PICC in RU, Room air, independent in room. Action: Medicated per SEP. Clustered care to promote rest. Hourly rounding [...] discitis. Indep in rm. IV abx in [facility] PICC. VSSon RA. Action: Medicated per SEP. Clustered care to promote rest. Hourly rounding [...] went off unit x2 without telling nursing. aware, at bedside & d/c off unit privileges. Pt agreeable. Resting in bed w call banda in reach, able to make needs known. LIUDMILA HALE RN 06/21/2024 17:05 * Plan of Care - Mariam Lehman RN - 06/21/2024 0005 EST Problem: Daily Care Plan Goals Goal: Care Plan Documentation Outcome: Met This Shift Flowsheets (Taken 06/20/2024 7383) Area of Focus: Sleep Goal This Shift: Pt will have adequate sleep during shift Data: HD#26 admitted 05/26/24 as a transfer from [facility] ED for High Grade MRSA bacteremiac/b T10-11, [...] from pain meds today. Action: Medicated per SEP. Pt went off the unit more than once this shift. Response: Discussed rules around leaving the unit w/ patient and notified MD. PEREZ at bedside to speak with patient. Currently [...] Care - Fausto Olivo RN - 06/17/2024 1366 EST Problem: Daily Care Plan Goals Goal: [...] Care - Gabriel Shah RN - 06/17/2024 0950 EST Problem: Daily Care Plan Goals Goal: [...] Goal: Care Plan Documentation Flowsheets (Taken 06/16/2024 3883) Area of Focus: Pain/ Comfort Goal This [...] Action: Administered prn and scheduled medication per MAR. Hourly rounding. Clustered care. Response: Pt continuing to report pain of 8/10 despite interventions. Calls appropriately. Rested quietly in bed for much of the day. KENNEDI HARDEN RN 06/15/2024 16:18 * Plan of Care - Gabriel Carter RN - 06/15/2024 1407 EST Problem: Daily Care Plan Goals Goal: Care Plan Documentation Outcome: Ongoing Flowsheets (Taken 06/14/2024 2148) Area of Focus: Pain/ Comfort Goal This Shift: tolerable pain levels Data: Pt admitted 05/26 for MRSA bacteremia, T10-L2 osteo-discitis w/ epidural abscess w/ c/f narrowing of spinal canal. A/Ox3, VSS on RA. Independent in room. Voiding. Rating pain 8/10 this shift. Action: Administered meds per MAR. Clustered care to promote [...] Outcome: Met This Shift Flowsheets Taken 06/11/2024 180 by Tristan Schwarz RN Area of Focus: Pain/ Comfort Taken 06/10/20241999 by Vangie uGnderson RN Goal This Shift: Pt will reporst [...] Care - Renetta Jenkins RN - 06/10/2024 180 EST Problem: Daily Care Plan Goals Goal: [...] RA. Continent 2x. Independent in room. Pain /10. A: Administered meds per MAR. Cluster care [...] his pain has been controlled this shift. CHELLE NOEL RN 06/08/2024 4:35 * Plan of [...] IV antibiotics and pain medications given per MAR. Response: Patient reports overall better pain control [...] one point in the night. Medicted (see SEP). Clustered care to promote rest. Response: Pain [...] dinner this evening. Action: Pt medicated per SEP. Pt repositions self per comfort. Hourly rounding [...] Response: ambulation tolerated well, pain remained tolerable. [facility] MARLEEN BOOKER RN 06/05/2024 8:28 * Plan [...] room, able to make needs known, call banda in reach, [facility]. ROCHELLE NATH RN 06/04/2024 12:02 * Plan [...] Response: ambulation tolerated well, pain remained tolerable. [facility] MARLEEN BOOKER RN 06/03/2024 11:27 * Plan [...] administered x1. Response: Pt currently reporting pain 4/10. Pt states the dilaudid has been helping [...] Adamaris Christie 06/01/2024 12:48 Cosigned by Dari Victor, DAVID at 06/01/2024 13:12 EST * Plan of [...] osteo-discitis, MRSA bacteremia. Reporting pain to back 8. IV abx. Independent in room. Action: Scheduled [...] getting oob/back to bed, rated back pain 7/10 @0030 Action: Medicated pt for pain per Mar & promoted sleep Response: Pt is sleeping [...] with scheduled & prn pain medication per Sep, hourly rounds performed, andpromoted sleep Response: Pt [...] ifotherwise appropriate. Please call IP with questions [phone]. * Plan of Care - Sakina Zuleta RN - 05/29/2024 0559 EST Problem: Daily Care Plan Goals Goal: Care Plan Documentation Outcome: Ongoing Flowsheets (Taken 05/28/20242131) Area of Focus: Pain/ Comfort Goal This Shift: Pt will be comfortable this shift Data: Assumed care at 1900. Pt admitted from ED as transfer from [facility] with +Blood Cultures and epidural abscess from [...] Pt admitted from ED as transfer from [facility] with +Blood Cultures and epidural abscess from [...] Pt admitted from ED as transfer from [facility] with +Blood Cultures and epidural abscess from [...] bowel suppository. Back pain has diminished now 09/25. Pt currently in bed, call light within reach. Pt is able to make needs known. SAKINA ZULETA RN 2024 5:53 * Plan of Care - Lizzie Wells RN - 2024 1930 EST Oriented to MR6/call banda, admission questions completed, admission assessment completed. Meds per eMAR. Initially pain 04/27 to back, notified MD. Tradolol x1 administered per eMAR. Pain now 09/25. Last BM 05/20, epigastric tenderness and not [...] CBC SMEAR REVIEW Today 05/27/20 7:23 EST COMPLETE BLOOD COUNT Routine 05/27/2024 [...] 70 - 100 mg/dL 07/02/2024 7:33 EST [facility] HN LAB POC COMMENT (GLUCOSE) Test Performed by Nursing Services 07/02/2024 7:33 EST [facility] Blood CAPILLARY BLOOD / Unknown 07/02/2024 7:31 EST 07/02/2024 7:33 EST Virginia Downey MD MPH POINT OF CARE TEST ORD ERABLES Final Result Performing Organization Address [facility] Co de Phone Number [facility] [address] [place] [address] * (ABNORMAL) POCT GLUCOSE, INTERFACED (07/01/2024 21:55 EST) Glucose, POC 139(H) 70 - 100 mg/dL 07/01/2024 21:56 EST [facility] HN LAB POC COMMENT (GLUCOSE) Test Performed by Nursing Services 07/01/2024 21:56 EST [facility] Blood CAPILLARY BLOOD / Unknown 07/01/2024 21:55 EST 07/01/2024 21:56 EST Virginia Downey MD MPH POINT OF CARE TEST ORD ERABLES Final Result Performing Organization Address [facility] Phone Number [facility] [address] [place] [phone] * (ABNORMAL) POCT GLUCOSE, INTERFACED (07/01/2024 18:41 EST) Glucose, POC 182(H) 70 - 100 mg/dL 07/01/2024 18:42 EST [facility] HN LAB POC COMMENT (GLUCOSE) Test Performed by Nursing Services 07/01/2024 18:42 EST [facility] Blood CAPILLARY BLOOD / Unknown 07/01/2024 18:41 EST 07/01/2024 18:42 EST Result [facility] Virginia Downey MD MPH POINT OF CARE TEST ORD ERABLES Final Result Performing Organization Address City/[facility]/ZIP Co de Phone Number [facility] [address] [place] [address] * POCT GLUCOSE, INTERFACED (07/01/2024 11:34 EST) Glucose, POC 98 70 - 100 mg/dL 07/01/2024 11:35 EST [facility] HN LAB POC COMMENT (GLUCOSE) Test Performed by Nursing Services 07/01/2024 11:35 EST [facility] Blood CAPILLARY BLOOD / Unknown 07/01/2024 11:34 EST 07/01/2024 11:35 EST Virginia Downey MD MPH POINT OF CARE TEST ORD ERABLES Final Result Performing Organization Address [facility] Co de Phone Number [facility] [address] [place] [phone] * (ABNORMAL) POCT GLUCOSE, INTERFACED (07/01/2024 8:56 EST) Glucose, POC 150(H) 70 - 100 mg/dL 07/01/2024 8:58 EST [facility] HN LAB POC COMMENT (GLUCOSE) Test Performed by Nursing Services 07/01/2024 8:58 EST [facility] Blood CAPILLARY BLOOD / Unknown 07/01/2024 8:56 EST 07/01/2024 8:58 EST us Virginia Downey MD MPH POINT OF CARE TEST ORD ERABLES Final Result Performing Organization Address City/[facility]/ZIP Co de Phone Number [facility] [address] [place], [place] [phone] * (ABNORMAL) POCT GLUCOSE, INTERFACED (06/30/2024 21:46 EST) Glucose, POC 115(H) 70 - 100 mg/dL 06/30/2024 21:47 EST [facility] HN LAB POC COMMENT (GLUCOSE) Test Performed by Nursing Services 06/30/2024 21:47 EST [facility] Blood CAPILLARY BLOOD / Unknown 06/30/2024 21:46 EST 06/30/2024 21:47 EST Virginia Downey MD MPH POINT OF CARE TEST ORD ERABLES Final Result Performing Organization Address City/[facility]/ZIP Co de Phone Number [facility] [address] [place] [address] * (ABNORMAL) POCT GLUCOSE, INTERFACED (06/30/2024 19:14 EST) Glucose, POC 128(H) 70 - 100 mg/dL 06/30/2024 19:15 EST [facility] HN LAB POC COMMENT (GLUCOSE) Test Performed by Nursing Services 06/30/2024 19:15 EST [facility] Blood CAPILLARY BLOOD / Unknown 06/30/2024 19:14 EST 06/30/2024 19:15 EST us Virginia Downey MD MPH POINT OF CARE TEST ORD ERABLES Final Result Performing Organization Address [facility] Co de Phone Number [facility] [address] [place] [address] * (ABNORMAL) POCT GLUCOSE, INTERFACED (06/30/2024 12:27 EST) Glucose, POC 216(H) 70 - 100 mg/dL 06/30/2024 12:28 EST [facility] HN LAB POC COMMENT (GLUCOSE) Test Performed by Nursing Services 06/30/2024 12:28 EST [facility] Blood CAPILLARY BLOOD / Unknown 06/30/2024 12:27 EST 06/30/2024 12:28 EST Virginia Downey MD MPH POINT OF CARE TEST ORD ERABLES Final Result [facility] [address] [place], [place] [phone] * (ABNORMAL) POCT GLUCOSE, INTERFACED (06/30/2024 7:53 EST) Glucose, POC 113(H) 70 - 100 mg/dL 06/30/2024 7:54 EST [facility] HN LAB POC COMMENT (GLUCOSE) Test Performed by Nursing Services 06/30/2024 7:54 EST [facility] Blood CAPILLARY BLOOD / Unknown 06/30/2024 7:53 EST 06/30/2024 7:54 EST Virginia Downey MD MPH POINT OF CARE TEST ORD ERABLES Final Result Performing Organization Address City/[facility]/ZIP Co de Phone Number [facility] [address] [place], [place] [phone] * (ABNORMAL) POCT GLUCOSE, INTERFACED (06/29/2024 19:23 EST) Glucose, POC 152(H) 70 - 100 mg/dL 06/29/2024 19:26 EST [facility] HN LAB POC COMMENT (GLUCOSE) Test Performed by Nursing Services 06/29/2024 19:26 EST [facility] Blood CAPILLARY BLOOD / Unknown 06/29/2024 19:23 EST 06/29/2024 19:26 EST Virginia Downey MD MPH POINT OF CARE TEST ORD ERABLES Final Result [facility] [address] [place], [place] [phone] * (ABNORMAL) POCT GLUCOSE, INTERFACED (06/29/2024 12:25 EST) Glucose, POC 204(H) 70 - 100 mg/dL 06/29/2024 12:27 EST [facility] HN LAB POC COMMENT (GLUCOSE) Test Performed by Nursing Services 06/29/2024 12:27 [facility] Blood CAPILLARY BLOOD / Unknown 06/29/2024 12:25 EST 06/29/2024 12:26 EST us Virginia Downey MD MPH POINT OF CARE TEST ORD ERABLES Final Result [facility] [address] [place], [place] [phone] * (ABNORMAL) COMPLETE BLOOD COUNT (06/29/2024 10:26 EST) WBC 4.56 4.00 - 10.40 K/cmm 06/29/2024 11:02 [facility] RBC 3.99(L) 4.36 - 5.78 M/cmm 06/29/2024 11:02 [facility] Hemoglobin 10.9(L) 13.8 - 17.3 g/dL 06/29/2024 11:02 [facility] HCT 32.0(L) 39.5 - 50.2 % 06/29/2024 11:02 [facility] MCV 80(L) 81 - 95 fL 06/29/2024 11:02 [facility] MCH 27.3(L) 27.6 - 33.0 pg 06/29/2024 11:02 [facility] MCHC 34.1 32.8 - 36.4 g/dL 06/29/2024 11:02 [facility] RDW-CV 15.6(H) <14.2 % 06/29/2024 11:02 [facility] RDW-SD 44.3 <46.0 fl 06/29/2024 11:02 [facility] PLT 222 141 - 377 K/cmm 06/29/2024 11:02 [facility] MPV 9.2(L) 9.5 - 12.7 fL 06/29/2024 11:02 [facility] Blood BLOOD SAMPLE TAKEN FROM CENTRAL LINE / Unknown Venipuncture / Unknown 06/29/2024 10:26 EST 06/29/2024 10:48 EST us Meaghan Zapata MD HEMATOLOGY & PF4 ORDER MENDEZ Final Result Performing Organization Address [facility]/ZIP Co de Phone Number [facility] [address] [place] [address] * (ABNORMAL) POCT GLUCOSE, INTERFACED (06/29/2024 10:20 EST) Glucose, POC 173(H) 70 - 100 mg/dL 06/29/2024 10:21 [facility] HN LAB POC COMMENT (GLUCOSE) Test Performed by Nursing Services 06/29/2024 10:21 [facility] Blood CAPILLARY BLOOD / Unknown 06/29/2024 10:20 EST 06/29/2024 10:21 EST us Virginia Downey MD MPH POINT OF CARE TEST ORD ERABLES Final Result Performing Organization Address [facility] Co de Phone Number [facility] [address] [place] [address] * (ABNORMAL) BASIC METABOLIC PANEL (BMP) (06/29/2024 6:25 EST) Pathologist [facility] Sodium 139 136 - 145 mmol/L 06/29/2024 7:24 [facility] Potassium 4.6 3.5 - 5.0 mmol/L 06/29/2024 7:24 [facility] Chloride 104 96 - 110 mmol/L 06/29/2024 7:24 [facility] CO2 Total 26 22 - 32 mmol/L 06/29/2024 7:24 [facility] Anion Gap 9 5 - 14 mmol/L 06/29/2024 7:24 [facility] Glucose 220(H) 70 - 99 mg/dl 06/29/2024 7:24 [facility] Calcium 9.3 8.5 - 10.5 mg/dL 06/29/2024 7:24 [facility] BUN 26 10 - 26 mg/dL 06/29/2024 7:24 [facility] Creatinine 0.92 0.66 - 1.25 mg/dL 06/29/2024 7:24 [facility] eGFR 105 >60 mL/min/1.73 m2 06/29/2024 7:24 [facility] Blood BLOOD SAMPLE TAKEN FROM CENTRAL LINE / Unknown PICC Line Draw / Unknown 06/29/2024 6:25 EST 06/29/2024 6:31 EST us Virginia Downey MD MPH CHEMISTRY & BLOOD GAS ORDERABLES Final Result [facility] [address] [place] [address] * (ABNORMAL) HEPATIC FUNCTION PANEL (ALB,ALK PHOS,ALT,AST,DBIL,TOT STEPHANY,TOT PROT) (06/29/2024 6:25 EST) Total Protein 7.7 6.3 - 8.2 g/dL 06/29/2024 7:24 [facility] Albumin 3.6 3.4 - 4.9 g/dL 06/29/2024 7:24 [facility] Bilirubin, Total <0.5 <1.4 mg/dL 06/29/20 7:24 [facility] Conjugated Bilirubin 0.0 <=0.3 mg/dL 06/29/2024 7:24 [facility] Unconjugated Bilirubin 0.2 <=1.1 mg/dL 06/29/2024 7:24 [facility] Alkaline Phosphatase 87 38 - 126 U/L 06/29/2024 7:24 [facility] ALT 53(H) <50 U/L 06/29/2024 7:24 [facility] AST 41 15 - 46 U/L 06/29/2024 7:24 [facility] Calculated Total Bilirubin 0.2 <1.4 mg/dL 06/29/2024 7:24 [facility] Blood BLOOD SAMPLE TAKEN FROM CENTRAL LINE / Unknown PICC Line Draw / Unknown 06/29/2024 6:25 EST 06/29/2024 6:31 EST us Meaghan Zapata MD CHEMISTRY & BLOOD GAS ORDERABLES Final Result Performing Organization Address City/[facility]/ZIP Co de Phone Number [facility] [address] [place] [address] * CK (06/29/2024 6:25 EST) [facility] CK 50 <=250 U/L 06/29/2024 7:24 EST [facility] Blood BLOOD SAMPLE TAKEN FROM CENTRAL LINE / Unknown PICC Line Draw / Unknown 06/29/2024 6:25 EST 06/29/2024 6:31 EST Meaghan Zapata MD CHEMISTRY & BLOOD GAS ORDERABLES Final Result Performing Organization Address City/[facility]/ZIP Co de Phone Number [facility] [address] [place] [address] * (ABNORMAL) POCT GLUCOSE, INTERFACED (06/28/2024 21:12 EST) [facility] Glucose, POC 162(H) 70 - 100 mg/dL 06/28/2024 21:13 EST [facility] HN LAB POC COMMENT (GLUCOSE) Test Performed by Nursing Services 06/28/2024 21:13 EST [facility] Blood CAPILLARY BLOOD / Unknown 06/28/2024 21:12 EST 06/28/2024 21:13 EST us Virginia Downey MD MPH POINT OF CARE TEST ORD ERABLES Final Result Performing Organization Address City/[facility]/ZIP Co de Phone Number [facility] [address] [place] [address] * (ABNORMAL) POCT GLUCOSE, INTERFACED (06/28/2024 19:15 EST) Glucose, POC 201(H) 70 - 100 mg/dL 06/28/2024 19:21 EST [facility] HN LAB POC COMMENT (GLUCOSE) Test Performed by Nursing Services 06/28/2024 19:21 [facility] Blood CAPILLARY BLOOD / Unknown 06/28/2024 19:15 EST 06/28/2024 19:21 EST Virginia Downey MD MPH POINT OF CARE TEST ORD ERABLES Final Result Performing Organization Address [facility] Co de Phone Number [facility] [address] [place] [address] * (ABNORMAL) POCT GLUCOSE, INTERFACED (06/28/2024 12:41 EST) Glucose, POC 202(H) 70 - 100 mg/dL 06/28/2024 12:42 EST [facility] HN LAB POC COMMENT (GLUCOSE) Test Performed by Nursing Services 06/28/2024 12:42 EST [facility] Blood CAPILLARY BLOOD / Unknown 06/28/2024 12:41 EST 06/28/2024 12:42 EST Virginia Downey MD MPH POINT OF CARE TEST ORD ERABLES Final Result Performing Organization Address [facility] Co de Phone Number [facility] [address] [place] [phone] * (ABNORMAL) POCT GLUCOSE, INTERFACED (06/28/2024 8:42 EST) Glucose, POC 159(H) 70 - 100 mg/dL 06/28/2024 8:44 EST [facility] HN LAB POC COMMENT (GLUCOSE) Test Performed by Nursing Services 06/28/2024 8:44 EST [facility] Blood CAPILLARY BLOOD / Unknown 06/28/2024 8:42 EST 06/28/2024 8:44 EST Virginia Downey MD MPH POINT OF CARE TEST ORD ERABLES Final Result [facility] [address] [place] [address] * (ABNORMAL) POCT GLUCOSE, INTERFACED (06/27/2024 20:28 EST) Glucose, POC 136(H) 70 - 100 mg/dL 06/27/2024 20:29 EST [facility] HN LAB POC COMMENT (GLUCOSE) Test Performed by Nursing Services 06/27/2024 20:29 EST [facility] Blood CAPILLARY BLOOD / Unknown 06/27/2024 20:28 EST 06/27/2024 20:29 EST Virginia Downey MD MPH POINT OF CARE TEST ORD ERABLES Final Result Performing Organization Address City/[facility]/ZIP Co de Phone Number [facility] [address] [place] [phone] * (ABNORMAL) POCT GLUCOSE, INTERFACED (06/27/2024 15:29 EST) Glucose, POC 143(H) 70 - 100 mg/dL 06/27/2024 15:30 EST [facility] HN LAB POC COMMENT (GLUCOSE) Test Performed by Nursing Services 06/27/2024 15:30 EST [facility] Blood CAPILLARY BLOOD / Unknown 06/27/2024 15:29 EST 06/27/2024 15:30 EST Virginia Downey MD MPH POINT OF CARE TEST ORD ERABLES Final Result [facility] [address] [place] [address] * (ABNORMAL) POCT GLUCOSE, INTERFACED (06/27/2024 13:19 EST) Glucose, POC 115(H) 70 - 100 mg/dL 06/27/2024 13:20 EST [facility] HN LAB POC COMMENT (GLUCOSE) Test Performed by Nursing Services 06/27/2024 13:20 EST [facility] Blood CAPILLARY BLOOD / Unknown 06/27/2024 13:19 EST 06/27/2024 13:20 EST Virginia Downey MD MPH POINT OF CARE TEST ORD ERABLES Final Result Performing Organization Address [facility] Co de Phone Number [facility] [address] [place] [address] * (ABNORMAL) POCT GLUCOSE, INTERFACED (06/27/2024 10:42 EST) Glucose, POC 291(H) 70 - 100 mg/dL 06/27/2024 10:43 EST [facility] HN LAB POC COMMENT (GLUCOSE) Test Performed by Nursing Services 06/27/2024 10:43 EST [facility] Blood CAPILLARY BLOOD / Unknown 06/27/2024 10:42 EST 06/27/2024 10:43 EST Virginia Downey MD MPH POINT OF CARE TEST ORD ERABLES Final Result Performing Organization Address [facility] Phone Number [facility] [address] [place] [address] * (ABNORMAL) POCT GLUCOSE, INTERFACED (06/27/2024 3:59 EST) Glucose, POC 215(H) 70 - 100 mg/dL 06/27/2024 4:01 EST [facility] HN LAB POC COMMENT (GLUCOSE) Test Performed by Nursing Services 06/27/2024 4:01 [facility] Blood CAPILLARY BLOOD / Unknown 06/27/2024 3:59 EST 06/27/2024 4:01 EST Result [facility] Virginia Downey MD MPH POINT OF CARE TEST ORD ERABLES Final Result [facility] [address] [place], [place] [phone] * (ABNORMAL) POCT GLUCOSE, INTERFACED (06/26/2024 23:00 EST) Glucose, POC 263(H) 70 - 100 mg/dL 06/26/2024 23:01 EST [facility] HN LAB POC COMMENT (GLUCOSE) Test Performed by Nursing Services 06/26/2024 23:01 EST [facility] Blood CAPILLARY BLOOD / Unknown 06/26/2024 23:00 EST 06/26/2024 23:01 EST Virginia Downey MD MPH POINT OF CARE TEST ORD ERABLES Final Result Performing Organization Address [facility] Co de Phone Number [facility] [address] [place] [phone] * (ABNORMAL) POCT GLUCOSE, INTERFACED (06/26/2024 21:00 EST) Glucose, POC 200(H) 70 - 100 mg/dL 06/26/2024 21:01 EST [facility] HN LAB POC COMMENT (GLUCOSE) Test Performed by Nursing Services 06/26/2024 21:01 EST [facility] Blood CAPILLARY BLOOD / Unknown 06/26/2024 21:00 EST 06/26/2024 21:01 EST us Virginia Downey MD MPH POINT OF CARE TEST ORD ERABLES Final Result Performing Organization Address City/[facility]/ZIP Co de Phone Number [facility] [address] [place] [address] [phone] * (ABNORMAL) POCT GLUCOSE, INTERFACED (06/26/2024 16:05 EST) Glucose, POC 299(H) 70 - 100 mg/dL 06/26/2024 16:06 EST [facility] HN LAB POC COMMENT (GLUCOSE) Test Performed by Nursing Services 06/26/2024 16:06 [facility] Blood CAPILLARY BLOOD / Unknown 06/26/2024 16:05 EST 06/26/2024 16:06 EST Virginia Downey MD MPH POINT OF CARE TEST ORD ERABLES Final Result Performing Organization Address City/[facility]/ZIP Co de Phone Number [facility] [address] [place] [address] * (ABNORMAL) POCT GLUCOSE, INTERFACED (06/26/2024 10:41 EST) Glucose, POC 194(H) 70 - 100 mg/dL 06/26/2024 10:42 [facility] HN LAB POC COMMENT (GLUCOSE) Test Performed by Nursing Services 06/26/2024 10:42 [facility] Blood CAPILLARY BLOOD / Unknown 06/26/2024 10:41 EST 06/26/2024 10:42 EST Virginia Downey MD MPH POINT OF CARE TEST ORD ERABLES Final Result Performing Organization Address [facility] Co de Phone Number [facility] [address] [place] [address] * (ABNORMAL) BASIC METABOLIC PANEL (BMP) (06/26/2024 4:54 EST) Sodium 138 136 - 145 mmol/L 06/26/2024 5:28 [facility] Potassium 4.0 3.5 - 5.0 mmol/L 06/26/2024 5:28 [facility] Chloride 104 96 - 110 mmol/L 06/26/2024 5:28 [facility] CO2 Total 26 22 - 32 mmol/L 06/26/2024 5:28 [facility] Anion Gap 8 5 - 14 mmol/L 06/26/2024 5:28 [facility] Glucose 310(H) 70 - 99 mg/dl 06/26/2024 5:28 [facility] Calcium 9.0 8.5 - 10.5 mg/dL 06/26/2024 5:28 [facility] BUN 19 10 - 26 mg/dL 06/26/2024 5:28 [facility] Creatinine 0.81 0.66 - 1.25 mg/dL 06/26/2024 5:28 [facility] eGFR 111 >60 mL/min/1.73 m2 06/26/2024 5:28 [facility] Blood VENOUS BLOOD / Unknown Venipuncture / Unknown 06/26/2024 4:54 EST 06/26/2024 4:58 EST us Virginia Downey MD MPH CHEMISTRY & BLOOD GAS ORDERABLES Final Result Performing Organization Address City/State/[facility] Co de Phone Number [facility] [address] [place], [place] [id number] * (ABNORMAL) COMPLETE BLOOD COUNT (06/22/2024 10:20 EST) WBC 4.42 4.00 - 10.40 K/cmm 06/22/2024 11:03 [facility] RBC 3.89(L) 4.36 - 5.78 M/cmm 06/22/2024 11:03 [facility] Hemoglobin 10.3(L) 13.8 - 17.3 g/dL 06/22/2024 11:03 [facility] HCT 31.0(L) 39.5 - 50.2 % 06/22/2024 11:03 [facility] MCV 80(L) 81 - 95 fL 06/22/2024 11:03 [facility] MCH 26.5(L) 27.6 - 33.0 pg 06/22/2024 11:03 [facility] MCHC 33.2 32.8 - 36.4 g/dL 06/22/2024 11:03 [facility] RDW-CV 14.5(H) <14.2 % 06/22/2024 11:03 [facility] RDW-SD 41.8 <46.0 fl 06/22/2024 11:03 [facility] PLT 254 141 - 377 K/cmm 06/22/2024 11:03 [facility] MPV 9.2(L) 9.5 - 12.7 fL 06/22/2024 11:03 [facility] Blood VENOUS BLOOD / Unknown Venipuncture / Unknown 06/22/2024 10:20 EST 06/22/2024 10:49 EST us Meaghan Zapata MD HEMATOLOGY & PF4 ORDER MENDEZ Final Result [facility] [address] [place] [address] * (ABNORMAL) BASIC METABOLIC PANEL (BMP) (06/22/2024 10:20 EST) Sodium 140 136 - 145 mmol/L 06/22/2024 11:31 [facility] Potassium 4.1 3.5 - 5.0 mmol/L 06/22/2024 11:31 [facility] Chloride 105 96 - 110 mmol/L 06/22/2024 11:31 [facility] CO2 Total 26 22 - 32 mmol/L 06/22/2024 11:31 [facility] Anion Gap 9 5 - 14 mmol/L 06/22/2024 11:31 [facility] Glucose 193(H) 70 - 99 mg/dl 06/22/2024 11:31 [facility] Calcium 9.3 8.5 - 10.5 mg/dL 06/22/2024 11:31 [facility] BUN 22 10 - 26 mg/dL 06/22/2024 11:31 [facility] Creatinine 0.87 0.66 - 1.25 mg/dL 06/22/2024 11:31 [facility] eGFR 109 >60 mL/min/1.73 m2 06/22/2024 11:31 [facility] Blood VENOUS BLOOD / Unknown Venipuncture / Unknown 06/22/2024 10:20 EST 06/22/2024 10:48 EST us Virginia Downey MD MPH CHEMISTRY & BLOOD GAS ORDERABLES Final Result Performing Organization Address City/[facility]/ZIP Co de Phone Number [facility] [address] [place] [address] * HEPATIC FUNCTION PANEL (ALB,ALK PHOS,ALT,AST,DBIL,TOT STEPHANY,TOT PROT) (06/22/2024 10:20 EST) Total Protein 7.7 6.3 - 8.2 g/dL 06/22/2024 11:31 [facility] Albumin 3.5 3.4 - 4.9 g/dL 06/22/2024 11:31 [facility] Bilirubin, Total <0.5 <1.4 mg/dL 06/22/20 11:31 [facility] Conjugated Bilirubin 0.0 <=0.3 mg/dL 06/22/2024 11:31 [facility] Unconjugated Bilirubin 0.1 <=1.1 mg/dL 06/22/2024 11:31 [facility] Alkaline Phosphatase 87 38 - 126 U/L 06/22/2024 11:31 [facility] ALT 38 <50 U/L 06/22/2024 11:31 [facility] AST 30 15 - 46 U/L 06/22/2024 11:31 [facility] Calculated Total Bilirubin 0.1 <1.4 mg/dL 06/22/2024 11:31 [facility] Blood VENOUS BLOOD / Unknown Venipuncture / Unknown 06/22/2024 10:20 EST 06/22/2024 10:48 EST us Meaghan Zapata MD CHEMISTRY & BLOOD GAS ORDERABLES Final Result [facility] [address] [place] [address] * CK (06/22/2024 10:20 EST) CK 38 <=250 U/L 06/22/2024 11:31 EST [facility] Blood VENOUS BLOOD / Unknown Venipuncture / Unknown 06/22/2024 10:20 EST 06/22/2024 10:48 EST us Meaghan Zapata MD CHEMISTRY & BLOOD GAS ORDERABLES Final Result [facility] [address] [place] [address] * (ABNORMAL) BASIC METABOLIC PANEL (BMP) (06/19/2024 3:09 EST) Sodium 138 136 - 145 mmol/L 06/19/2024 5:04 [facility] Potassium 4.3 3.5 - 5.0 mmol/L 06/19/2024 5:04 [facility] Chloride 105 96 - 110 mmol/L 06/19/2024 5:04 [facility] CO2 Total 27 22 - 32 mmol/L 06/19/2024 5:04 [facility] Anion Gap 6 5 - 14 mmol/L 06/19/2024 5:04 [facility] Glucose 141(H) 70 - 99 mg/dl 06/19/2024 5:04 [facility] Calcium 9.5 8.5 - 10.5 mg/dL 06/19/2024 5:04 [facility] BUN 17 10 - 26 mg/dL 06/19/2024 5:04 [facility] Creatinine 0.80 0.66 - 1.25 mg/dL 06/19/2024 5:04 [facility] eGFR 112 >60 mL/min/1.73 m2 06/19/2024 5:04 [facility] Blood VENOUS BLOOD / Unknown Port / Unknown 06/19/2024 3:09 EST 06/19/2024 3:21 EST us Virginia Downey MD MPH CHEMISTRY & BLOOD GAS ORDERABLES Final Result Performing Organization Address [facility]/ZIP Co de Phone Number [facility] [address] [place] [address] * (ABNORMAL) C REACTIVE PROTEIN (06/18/2024 11:51 EST) [facility] C-Reactive Protein 33.4(H) <10.0 mg/L 06/18/2024 12:35 [facility] Blood VENOUS BLOOD / Unknown Venipuncture / Unknown 06/18/2024 11:51 EST 06/18/2024 12:09 EST us Johan Campos MD CHEMISTRY & BLOOD GAS ORDERABLES Final Result Performing Organization Address [facility] de Phone Number [facility] [address] [place] [phone] * (ABNORMAL) COMPLETE BLOOD COUNT (06/18/2024 11:51 EST) [facility] WBC 6.76 4.00 - 10.40 K/cmm 06/18/2024 12:23 [facility] RBC 3.72(L) 4.36 - 5.78 M/cmm 06/18/2024 12:23 [facility] Hemoglobin 10.0(L) 13.8 - 17.3 g/dL 06/18/2024 12:23 [facility] HCT 29.5(L) 39.5 - 50.2 % 06/18/2024 12:23 [facility] MCV 79(L) 81 - 95 fL 06/18/2024 12:23 [facility] MCH 26.9(L) 27.6 - 33.0 pg 06/18/2024 12:23 [facility] MCHC 33.9 32.8 - 36.4 g/dL 06/18/2024 12:23 [facility] RDW-CV 14.4(H) <14.2 % 06/18/2024 12:23 [facility] RDW-SD 41.1 <46.0 fl 06/18/2024 12:23 [facility] PLT 248 141 - 377 K/cmm 06/18/2024 12:23 [facility] MPV 8.9(L) 9.5 - 12.7 fL 06/18/2024 12:23 [facility] Blood VENOUS BLOOD / Unknown Venipuncture / Unknown 06/18/2024 11:51 EST 06/18/2024 12:09 EST Johan Campos MD HEMATOLOGY & PF4 ORDERABLES Tia clarke Result [facility] [address] [place] [address] * (ABNORMAL) COMPREHENSIVE METABOLIC PANEL (CMP) (06/18/2024 11:51 EST) Sodium 137 136 - 145 mmol/L 06/18/2024 12:35 [facility] Potassium 4.1 3.5 - 5.0 mmol/L 06/18/2024 12:35 [facility] Chloride 106 96 - 110 mmol/L 06/18/2024 12:35 [facility] CO2 Total 24 22 - 32 mmol/L 06/18/2024 12:35 [facility] Glucose 164(H) 70 - 99 mg/dl 06/18/2024 12:35 [facility] BUN 14 10 - 26 mg/dL 06/18/2024 12:35 [facility] Creatinine 0.73 0.66 - 1.25 mg/dL 06/18/2024 12:35 [facility] eGFR 115 >60 mL/min/1.7 3m2 06/18/2024 12:35 [facility] Total Protein 7.5 6.3 - 8.2 g/dL 06/18/2024 12:35 [facility] Albumin 3.6 3.4 - 4.9 g/dL 06/18/2024 12:35 [facility] Alkaline Phosphatase 78 38 - 126 U/L 06/18/2024 12:35 [facility] AST 25 15 - 46 U/L 06/18/2024 12:35 [facility] ALT 28 <50 U/L 06/18/2024 12:35 [facility] Bilirubin, Total <0.5 <1.4 mg/dL 06/18/20 12:35 [facility] Calcium 9.4 8.5 - 10.5 mg/dL 06/18/2024 12:35 [facility] Albumin/Globulin Ratio 0.9(L) 1.0 - 2.5 06/18/2024 12:35 [facility] Anion Gap 7 5 - 14 mmol/L 06/18/2024 12:35 [facility] Blood VENOUS BLOOD / Unknown Venipuncture / Unknown 06/18/2024 11:51 EST 06/18/2024 12:09 EST us Johan Campos MD CHEMISTRY & BLOOD GAS ORDERABLES Final Result Performing Organization Address City/State/[facility] Co de Phone Number [facility] [address] [place] [address] * (ABNORMAL) COMPLETE BLOOD COUNT (06/15/2024 6:54 EST) WBC 5.62 4.00 - 10.40 K/cmm 06/15/2024 7:11 [facility] RBC 4.18(L) 4.36 - 5.78 M/cmm 06/15/2024 7:11 [facility] Hemoglobin 11.2(L) 13.8 - 17.3 g/dL 06/15/2024 7:11 [facility] HCT 33.1(L) 39.5 - 50.2 % 06/15/2024 7:11 [facility] MCV 79(L) 81 - 95 fL 06/15/2024 7:11 [facility] MCH 26.8(L) 27.6 - 33.0 pg 06/15/2024 7:11 [facility] MCHC 33.8 32.8 - 36.4 g/dL 06/15/2024 7:11 [facility] RDW-CV 14.2(H) <14.2 % 06/15/2024 7:11 [facility] RDW-SD 41.1 <46.0 fl 06/15/2024 7:11 [facility] PLT 301 141 - 377 K/cmm 06/15/2024 7:11 [facility] MPV 9.3(L) 9.5 - 12.7 fL 06/15/2024 7:11 [facility] Blood BLOOD SAMPLE TAKEN FROM CENTRAL LINE / Unknown 06/15/2024 6:54 EST 06/15/2024 7:01 EST us Meaghan Zapata MD HEMATOLOGY & PF4 ORDER MENDEZ Final Result [facility] [address] [place], [place] [id number] * (ABNORMAL) BASIC METABOLIC PANEL (BMP) (06/15/2024 6:54 EST) Sodium 138 136 - 145 mmol/L 06/15/2024 7:58 [facility] Potassium 4.4 3.5 - 5.0 mmol/L 06/15/2024 7:58 [facility] Chloride 104 96 - 110 mmol/L 06/15/2024 7:58 [facility] CO2 Total 23 22 - 32 mmol/L 06/15/2024 7:58 [facility] Anion Gap 11 5 - 14 mmol/L 06/15/2024 7:58 [facility] Glucose 141(H) 70 - 99 mg/dl 06/15/2024 7:58 [facility] Calcium 9.9 8.5 - 10.5 mg/dL 06/15/2024 7:58 [facility] BUN 19 10 - 26 mg/dL 06/15/2024 7:58 [facility] Creatinine 0.81 0.66 - 1.25 mg/dL 06/15/2024 7:58 [facility] eGFR 111 >60 mL/min/1.73 m2 06/15/2024 7:58 [facility] Blood BLOOD SAMPLE TAKEN FROM CENTRAL LINE / Unknown 06/15/2024 6:54 EST 06/15/2024 7:23 EST us Virginia Downey MD MPH CHEMISTRY & BLOOD GAS ORDERABLES Final Result [facility] [address] [place] [address] * (ABNORMAL) HEPATIC FUNCTION PANEL (ALB,ALK PHOS,ALT,AST,DBIL,TOT STEPHANY,TOT PROT) (06/15/2024 6:54 EST) Total Protein 8.8(H) 6.3 - 8.2 g/dL 06/15/2024 7:58 [facility] Albumin 4.0 3.4 - 4.9 g/dL 06/15/2024 7:58 [facility] Bilirubin, Total <0.5 <1.4 mg/dL 06/15/20 7:58 [facility] Conjugated Bilirubin 0.0 <=0.3 mg/dL 06/15/2024 7:58 [facility] Unconjugated Bilirubin 0.1 <=1.1 mg/dL 06/15/2024 7:58 [facility] Alkaline Phosphatase 89 38 - 126 U/L 06/15/2024 7:58 [facility] ALT 38 <50 U/L 06/15/2024 7:58 [facility] AST 33 15 - 46 U/L 06/15/2024 7:58 [facility] Calculated Total Bilirubin 0.1 <1.4 mg/dL 06/15/2024 7:58 EST [facility] Blood BLOOD SAMPLE TAKEN FROM CENTRAL LINE / Unknown 06/15/2024 6:54 EST 06/15/2024 7:23 EST Meaghan Zapata MD CHEMISTRY & BLOOD GAS ORDERABLES Final Result Performing Organization Address [facility] de Phone Number [facility] [address] [place] [address] * CK (06/15/2024 6:54 EST) CK 40 <=250 U/L 06/15/2024 7:58 EST [facility] Blood BLOOD SAMPLE TAKEN FROM CENTRAL LINE / Unknown 06/15/2024 6:54 EST 06/15/2024 7:23 EST Meaghan Zapata MD CHEMISTRY & BLOOD GAS ORDERABLES Final Result Performing Organization Address [facility] de Phone Number [facility] [address] [place] [id number] * INSERT PICC LINE (06/13/2024 19:04 EST) Narrative Shyann Encinas, DAVID - 06/13/2024 19:04 EST Shyann Encinas, DAVID ? 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 SHYANN ENCINAS RN ?? 06/13/2024 ?? 19:05 us Johan Campos MD IV THERAPY ORDERABLES Final Resu lt * BASIC METABOLIC PANEL (BMP) (06/12/2024 6:11 EST) Sodium 139 136 - 145 mmol/L 06/12/2024 7:01 [facility] Potassium 4.5 3.5 - 5.0 mmol/L 06/12/2024 7:01 [facility] Chloride 102 96 - 110 mmol/L 06/12/2024 7:01 [facility] CO2 Total 24 22 - 32 mmol/L 06/12/2024 7:01 [facility] Anion Gap 13 5 - 14 mmol/L 06/12/2024 7:01 [facility] Glucose 88 70 - 99 mg/dl 06/12/2024 7:01 [facility] Calcium 10.1 8.5 - 10.5 mg/dL 06/12/2024 7:01 [facility] BUN 21 10 - 26 mg/dL 06/12/2024 7:01 [facility] Creatinine 0.91 0.66 - 1.25 mg/dL 06/12/2024 7:01 [facility] eGFR 107 >60 mL/min/1.73 m2 06/12/2024 7:01 [facility] Blood VENOUS BLOOD / Unknown Venipuncture / Unknown 06/12/2024 6:11 EST 06/12/2024 6:28 EST Virginia Downey MD MPH CHEMISTRY & BLOOD GAS ORDERABLES Final Result Performing Organization Address City/[facility]/ZIP Co de Phone Number [facility] [address] [place] [address] * CK (06/11/2024 6:51 EST) CK 48 <=250 U/L 06/11/2024 8:03 [facility] Blood VENOUS BLOOD / Unknown Venipuncture / Unknown 06/11/2024 6:51 EST 06/11/2024 7:14 EST Meaghan Zapata MD CHEMISTRY & BLOOD GAS ORDERABLES Final Result [facility] [address] [place] [address] * (ABNORMAL) COMPLETE BLOOD COUNT (06/11/2024 6:51 EST) WBC 6.56 4.00 - 10.40 K/cmm 06/11/2024 7:27 [facility] RBC 4.25(L) 4.36 - 5.78 M/cmm 06/11/2024 7:27 [facility] Hemoglobin 11.4(L) 13.8 - 17.3 g/dL 06/11/2024 7:27 [facility] HCT 33.2(L) 39.5 - 50.2 % 06/11/2024 7:27 [facility] MCV 78(L) 81 - 95 fL 06/11/2024 7:27 [facility] MCH 26.8(L) 27.6 - 33.0 pg 06/11/2024 7:27 [facility] MCHC 34.3 32.8 - 36.4 g/dL 06/11/2024 7:27 [facility] RDW-CV 14.6(H) <14.2 % 06/11/2024 7:27 [facility] RDW-SD 41.1 <46.0 fl 06/11/2024 7:27 [facility] PLT 355 141 - 377 K/cmm 06/11/2024 7:27 [facility] MPV 9.1(L) 9.5 - 12.7 fL 06/11/2024 7:27 [facility] Blood VENOUS BLOOD / Unknown Venipuncture / Unknown 06/11/2024 6:51 EST 06/11/2024 7:14 EST us Meaghan Zapata MD HEMATOLOGY & PF4 ORDER MENDEZ Final Result [facility] [address] [place] [phone] * (ABNORMAL) HEPATIC FUNCTION PANEL (ALB,ALK PHOS,ALT,AST,DBIL,TOT STEPHANY,TOT PROT) (06/11/2024 6:51 EST) Total Protein 8.8(H) 6.3 - 8.2 g/dL 06/11/2024 8:03 [facility] Albumin 4.0 3.4 - 4.9 g/dL 06/11/2024 8:03 [facility] Bilirubin, Total <0.5 <1.4 mg/dL 06/11/20 8:03 [facility] Conjugated Bilirubin 0.0 <=0.3 mg/dL 06/11/2024 8:03 [facility] Unconjugated Bilirubin 0.1 <=1.1 mg/dL 06/11/2024 8:03 [facility] Alkaline Phosphatase 88 38 - 126 U/L 06/11/2024 8:03 [facility] ALT 26 <50 U/L 06/11/2024 8:03 [facility] AST 31 15 - 46 U/L 06/11/2024 8:03 [facility] Calculated Total Bilirubin 0.1 <1.4 mg/dL 06/11/2024 8:03 [facility] Blood VENOUS BLOOD / Unknown Venipuncture / Unknown 06/11/2024 6:51 EST 06/11/2024 7:14 EST us Meaghan Zapata MD CHEMISTRY & BLOOD GAS ORDERABLES Final Result [facility] [address] [place] [address] * (ABNORMAL) BASIC METABOLIC PANEL (BMP) (06/11/2024 6:51 EST) Sodium 138 136 - 145 mmol/L 06/11/2024 8:03 [facility] Potassium 4.6 3.5 - 5.0 mmol/L 06/11/2024 8:03 [facility] Chloride 102 96 - 110 mmol/L 06/11/2024 8:03 [facility] CO2 Total 24 22 - 32 mmol/L 06/11/2024 8:03 [facility] Anion Gap 12 5 - 14 mmol/L 06/11/2024 8:03 [facility] Glucose 120(H) 70 - 99 mg/dl 06/11/2024 8:03 [facility] Calcium 10.0 8.5 - 10.5 mg/dL 06/11/2024 8:03 [facility] BUN 25 10 - 26 mg/dL 06/11/2024 8:03 [facility] Creatinine 0.96 0.66 - 1.25 mg/dL 06/11/2024 8:03 [facility] eGFR 100 >60 mL/min/1.73 m2 06/11/2024 8:03 [facility] Blood VENOUS BLOOD / Unknown Venipuncture / Unknown 06/11/2024 6:51 EST 06/11/2024 7:14 EST us Meaghan Zapata MD CHEMISTRY & BLOOD GAS ORDERABLES Final Result Performing Organization Address City/State/[facility] Co de Phone Number [facility] [address] [place] [address] * (ABNORMAL) COMPLETE BLOOD COUNT (06/08/2024 16:37 EST) WBC 7.05 4.00 - 10.40 K/cmm 06/08/2024 16:46 [facility] RBC 3.97(L) 4.36 - 5.78 M/cmm 06/08/2024 16:46 [facility] Hemoglobin 10.9(L) 13.8 - 17.3 g/dL 06/08/2024 16:46 [facility] HCT 31.5(L) 39.5 - 50.2 % 06/08/2024 16:46 [facility] MCV 79(L) 81 - 95 fL 06/08/2024 16:46 [facility] MCH 27.5(L) 27.6 - 33.0 pg 06/08/2024 16:46 [facility] MCHC 34.6 32.8 - 36.4 g/dL 06/08/2024 16:46 [facility] RDW-CV 14.3(H) <14.2 % 06/08/2024 16:46 [facility] RDW-SD 41.1 <46.0 fl 06/08/2024 16:46 EST [facility] PLT 267 141 - 377 K/cmm 06/08/2024 16:46 EST [facility] MPV 10.7 9.5 - 12.7 fL 06/08/2024 16:46 EST [facility] Blood CAPILLARY BLOOD / Unknown Finger/Heel Stick / Unknown 06/08/2024 16:37 EST 06/08/2024 16:40 EST Virginia Downey MD MPH HEMATOLOGY & PF4 ORDER MENDEZ Final Result Performing Organization Address City/[facility]/ZIP Co de Phone Number [facility] [address] [place] [address] * BACTERIAL CULTURE, BLOOD (06/08/2024 15:09 EST) Organism ID No Growth at 5 days 06/13/2024 16:01 EST [facility] Blood VENOUS BLOOD / Unknown Venipuncture / Unknown 06/08/2024 15:09 EST 06/08/2024 15:57 EST Narrative [facility] - 06/13/2024 16:01 EST Volume of blood collected may not be adequate for detection of bacteremia/septicemia. us Virginia Downey MD MPH MICROBIOLOGY - GENERAL ORDERABLES Final Result Performing Organization Address City/[facility]/ZIP Co de Phone Number [facility] [address] [place], [place] [id number] * (ABNORMAL) BASIC METABOLIC PANEL (BMP) (06/08/2024 15:08 EST) Sodium 139 136 - 145 mmol/L 06/08/2024 16:22 EST [facility] Potassium 4.9 3.5 - 5.0 mmol/L 06/08/2024 16:22 EST [facility] Chloride 101 96 - 110 mmol/L 06/08/2024 16:22 EST [facility] CO2 Total 25 22 - 32 mmol/L 06/08/2024 16:22 [facility] Anion Gap 13 5 - 14 mmol/L 06/08/2024 16:22 [facility] Glucose 237(H) 70 - 99 mg/dl 06/08/2024 16:22 [facility] Calcium 9.5 8.5 - 10.5 mg/dL 06/08/2024 16:22 [facility] BUN 25 10 - 26 mg/dL 06/08/2024 16:22 [facility] Creatinine 0.82 0.66 - 1.25 mg/dL 06/08/2024 16:22 [facility] eGFR 111 >60 mL/min/1.73 m2 06/08/2024 16:22 [facility] Blood VENOUS BLOOD / Unknown Venipuncture / Unknown 06/08/2024 15:08 EST 06/08/2024 15:51 EST us Virginia Downey MD MPH CHEMISTRY & BLOOD GAS ORDERABLES Final Result [facility] [address] [place] [address] * (ABNORMAL) HEPATIC FUNCTION PANEL (ALB,ALK PHOS,ALT,AST,DBIL,TOT STEPHANY,TOT PROT) (06/08/2024 15:08 EST) Total Protein 8.8(H) 6.3 - 8.2 g/dL 06/08/2024 16:22 [facility] Albumin 4.1 3.4 - 4.9 g/dL 06/08/2024 16:22 [facility] Bilirubin, Total <0.5 <1.4 mg/dL 06/08/20 16:22 [facility] Conjugated Bilirubin 0.0 <=0.3 mg/dL 06/08/2024 16:22 [facility] Unconjugated Bilirubin 0.3 <=1.1 mg/dL 06/08/2024 16:22 [facility] Alkaline Phosphatase 118 38 - 126 U/L 06/08/2024 16:22 EST [facility] ALT 22 <50 U/L 06/08/2024 16:22 EST [facility] AST 29 15 - 46 U/L 06/08/2024 16:22 EST [facility] Calculated Total Bilirubin 0.3 <1.4 mg/dL 06/08/2024 16:22 EST [facility] Blood VENOUS BLOOD / Unknown Venipuncture / Unknown 06/08/2024 15:08 EST 06/08/2024 15:51 EST Meaghan Zapata MD CHEMISTRY & BLOOD GAS ORDERABLES Final Result Performing Organization Address City/[facility]/ZIP Co de Phone Number [facility] [address] [place] [address] * CK (06/08/2024 15:08 EST) CK 39 <=250 U/L 06/08/2024 16:22 EST [facility] Blood VENOUS BLOOD / Unknown Venipuncture / Unknown 06/08/2024 15:08 EST 06/08/2024 15:51 EST Meaghan Zapata MD CHEMISTRY & BLOOD GAS ORDERABLES Final Result Performing Organization Address City/[facility]/ZIP Co de Phone Number [facility] [address] [place] [address] * BACTERIAL CULTURE, BLOOD (06/08/2024 7:55 EST) Organism ID No Growth at 5 days 06/13/2024 9:01 EST [facility] Blood VENOUS BLOOD / Unknown Venipuncture / Unknown 06/08/2024 7:55 EST 06/08/2024 8:50 EST Virginia Downey MD MPH MICROBIOLOGY - GENERAL ORDERABLES Final Result Performing Organization Address City/[facility]/ZIP Co de Phone Number [facility] [address] [place], [place] [address] * CT ABDOMEN PELVIS W CONTRAST (06/05/2024 [...] above interpretation and agree with the findings. [id number] Narrative 06/05/2024 14:[address] ABDOMEN PELVIS [...] canal with mild to moderate spinal stenosis. Lab Assistant: No additional finding. Resulting Agency Comment [id number] Procedure Note Trupti Alvarez MD - 06/05/2024 [...] from prior exam are cortical lucencies at [id number] endplate with osseous destruction of the head of the right 11thrib, findings concerning for discitis osteomyelitis with costovertebralinvolvement. In the paraspinal soft tissues adjacent to this level thereis fatty stranding without discrete fluid collection. Increased softtissue density seen within the spinal canal with mild to moderate spinalstenosis. Lab Assistant: No additional finding. IMPRESSION 1. 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 Please see the same day MRI of thethoracic spine for further evaluation. 2. No bowel inflammation or organizing fluid collection within theabdomen or pelvis. I have personally reviewed the images and the above interpretation andagree with the findings. [id number] Virginia Downey MD MPH IMG CT ORDERABLES Tia l Result * BACTERIAL CULTURE, BLOOD (06/05/2024 9:41 EST) Organism ID No Growth at 5 days 06/10/2024 10:31 EST [facility] Blood VENOUS BLOOD / Unknown Venipuncture / Unknown 06/05/2024 9:41 EST 06/05/2024 10:20 EST Virginia Downey MD MPH MICROBIOLOGY - GENERAL ORDERABLES Final Result [facility] [address] [place] [address] * (ABNORMAL) BACTERIAL CULTURE, BLOOD (06/05/2024 9:41 EST) Organism ID Methicillin-Resi stant Staphylococcus aureus(AA) VITEK SUSCEPTIBILITY 4 7:13 [facility] Comment: Detected at 27 hours. [...] MPH MICROBIOLOGY - GENERAL ORDERABLES Final Result [facility] [address] [place] [address] * (ABNORMAL) COMPLETE BLOOD COUNT (06/05/2024 9:41 EST) WBC 8.17 4.00 - 10.40 K/cmm 06/05/2024 10:16 [facility] RBC 4.08(L) 4.36 - 5.78 M/cmm 06/05/2024 10:16 [facility] Hemoglobin 10.9(L) 13.8 - 17.3 g/dL 06/05/2024 10:16 [facility] HCT 32.0(L) 39.5 - 50.2 % 06/05/2024 10:16 [facility] MCV 78(L) 81 - 95 fL 06/05/2024 10:16 [facility] MCH 26.7(L) 27.6 - 33.0 pg 06/05/2024 10:16 [facility] MCHC 34.1 32.8 - 36.4 g/dL 06/05/2024 10:16 [facility] RDW-CV 14.9(H) <14.2 % 06/05/2024 10:16 [facility] RDW-SD 42.4 <46.0 fl 06/05/2024 10:16 [facility] PLT 326 141 - 377 K/cmm 06/05/2024 10:16 [facility] MPV 10.6 9.5 - 12.7 fL 06/05/2024 10:16 EST [facility] Blood VENOUS BLOOD / Unknown Venipuncture / Unknown 06/05/2024 9:41 EST 06/05/2024 10:07 EST us Virginia Downey MD MPH HEMATOLOGY & PF4 ORDER MENDEZ Final Result [facility] [address] [place] [phone] * (ABNORMAL) BASIC METABOLIC PANEL (BMP) (06/05/2024 9:41 EST) Sodium 135(L) 136 - 145 mmol/L 06/05/2024 10:33 [facility] Potassium 4.7 3.5 - 5.0 mmol/L 06/05/2024 10:33 [facility] Chloride 99 96 - 110 mmol/L 06/05/2024 10:33 [facility] CO2 Total 27 22 - 32 mmol/L 06/05/2024 10:33 [facility] Anion Gap 9 5 - 14 mmol/L 06/05/2024 10:33 [facility] Glucose 137(H) 70 - 99 mg/dl 06/05/2024 10:33 [facility] Calcium 9.7 8.5 - 10.5 mg/dL 06/05/2024 10:33 [facility] BUN 17 10 - 26 mg/dL 06/05/2024 10:33 [facility] Creatinine 0.80 0.66 - 1.25 mg/dL 06/05/2024 10:33 [facility] eGFR 112 >60 mL/min/1.73 m2 06/05/2024 10:33 [facility] Blood VENOUS BLOOD / Unknown Venipuncture / Unknown 06/05/2024 9:41 EST 06/05/2024 10:06 EST Virginia Downey MD MPH CHEMISTRY & BLOOD GAS ORDERABLES Final Result Performing Organization Address City/[facility]/ZIP Co de Phone Number [facility] [address] [place] [address] * ECG REPORT - SCANNED (06/05/2024 8:24 EST) 06/05/2024 8:24 EST us Scan 2 [employer] PROCEDURE/MINOR SURGICAL OR DERABLES Final Result * (ABNORMAL) BACTERIAL CULTURE, BLOOD (06/04/2024 11:44 EST) Organism ID Methicillin-Resi stant Staphylococcus aureus(AA) VITEK SUSCEPTIBILITY 9:29 EST [facility] Comment: Detected at 15.9 [...] Vancomycin VITEK SUSCEPTIBILITY 1 ug/mL: Susceptible us Virginia Downey MD MPH MICROBIOLOGY - GENERAL ORDERABLES Final Result [facility] [address] [place] [id number] * (ABNORMAL) BACTERIAL CULTURE, BLOOD (06/04/2024 11:44 EST) Organism ID Methicillin-Resis tant Staphylococcus aureus(AA) 06/07/2024 9:29 EST [facility] Comment: Detected at 19 hours Resistant to all penicillins (including nafcillin), combinations of penicillins and beta lactamase inhibitors (eg amoxicillin clavulanic acid, ampicillin sulbactam, piperacillin tazobactam), cephalosporins, and all carbapenems (eg meropenem and imipenem). (mecA gene product present). Ceftaroline may be active in some cases. Phoenix morphology consistent with other culture from same [...] MPH MICROBIOLOGY - GENERAL ORDERABLES Final Result [facility] [address] [place] [id number] * MR THORACIC SPINE W WO CONTRAST [...] osteomyelitis of the adjacent right 11th rib. [id number] Narrative 06/04/2024 11:15 EST EXAM: MRI THORACIC [...] where there is bone marrow signal abnormality. [facility] Comment [id number] Procedure Note Remigio Warner MD - 06/04/2024 [...] and prevertebral enhancement at the T10 and [id number], slightly asymmetric to the right. The enhancement [...] and paraspinal phlegmonous enhancement is present at [id number] level, without evidence of prevertebral or paraspinal abscess.There is osteomyelitis of the adjacent right 11th rib. [id number] us Virginia Downey MD MPH IMG MRI ORDERABLES Fin al Result * (ABNORMAL) BACTERIAL CULTURE, BLOOD (06/03/2024 8:29 EST) Pathologist [facility] [place] Organism ID Methicillin-Resi stant Staphylococcus aureus(AA) VITEK SUSCEPTIBILITY 4 7:26 EST [facility] Comment: Detected at 36.1 Hours [...] GENERAL ORDERABLES Final Result Performing Organization Address City/[facility]/ZIP Co de Phone Number [facility] [address] [place] [address] * BACTERIAL CULTURE, BLOOD (06/03/2024 8:28 EST) Pathologist [facility] Organism ID No Growth at 5 days 06/08/2024 9:45 EST [facility] Blood VENOUS BLOOD / Unknown Venipuncture / Unknown 06/03/2024 8:28 EST 06/03/2024 9:31 EST Virginia Downey MD MPH MICROBIOLOGY - GENERAL ORDERABLES Final Result Performing Organization Address [facility] Co de Phone Number [facility] [address] [place] [address] * (ABNORMAL) BASIC METABOLIC PANEL (BMP) (06/03/2024 8:28 EST) Pathologist [facility] Sodium 135(L) 136 - 145 mmol/L 06/03/2024 9:24 [facility] Potassium 4.4 3.5 - 5.0 mmol/L 06/03/2024 9:24 [facility] Chloride 101 96 - 110 mmol/L 06/03/2024 9:24 [facility] CO2 Total 26 22 - 32 mmol/L 06/03/2024 9:24 [facility] Anion Gap 8 5 - 14 mmol/L 06/03/2024 9:24 [facility] Glucose 167(H) 70 - 99 mg/dl 06/03/2024 9:24 [facility] Calcium 9.5 8.5 - 10.5 mg/dL 06/03/2024 9:24 [facility] BUN 15 10 - 26 mg/dL 06/03/2024 9:24 [facility] Creatinine 0.69 0.66 - 1.25 mg/dL 06/03/2024 9:24 [facility] eGFR 117 >60 mL/min/1.73 m2 06/03/2024 9:24 [facility] Blood VENOUS BLOOD / Unknown Venipuncture / Unknown 06/03/2024 8:28 EST 06/03/2024 8:56 EST us Virginia Downey MD MPH CHEMISTRY & BLOOD GAS ORDERABLES Final Result Performing Organization Address City/State/[facility] Co de Phone Number [facility] [address] [place] [phone] * (ABNORMAL) COMPLETE BLOOD COUNT (06/03/2024 8:28 EST) WBC 7.02 4.00 - 10.40 K/cmm 06/03/2024 9:05 [facility] RBC 3.88(L) 4.36 - 5.78 M/cmm 06/03/2024 9:05 [facility] Hemoglobin 10.4(L) 13.8 - 17.3 g/dL 06/03/2024 9:05 [facility] HCT 30.8(L) 39.5 - 50.2 % 06/03/2024 9:05 [facility] MCV 79(L) 81 - 95 fL 06/03/2024 9:05 [facility] MCH 26.8(L) 27.6 - 33.0 pg 06/03/2024 9:05 [facility] MCHC 33.8 32.8 - 36.4 g/dL 06/03/2024 9:05 [facility] RDW-CV 14.9(H) <14.2 % 06/03/2024 9:05 [facility] RDW-SD 43.1 <46.0 fl 06/03/2024 9:05 [facility] PLT 317 141 - 377 K/cmm 06/03/2024 9:05 [facility] MPV 9.9 9.5 - 12.7 fL 06/03/2024 9:05 [facility] Blood VENOUS BLOOD / Unknown Venipuncture / Unknown 06/03/2024 8:28 EST 06/03/2024 8:56 EST us Virginia Downey MD MPH HEMATOLOGY & PF4 ORDER MENDEZ Final Result [facility] [address] [place] [phone] * (ABNORMAL) BACTERIAL CULTURE, BLOOD (06/01/2024 8:00 EST) Organism ID Methicillin-Resi stant Staphylococcus aureus(AA) VITEK SUSCEPTIBILITY 4 7:36 EST [facility] Comment: Detected at 17 hours. [...] GENERAL ORDERABLES Final Result Performing Organization Address [facility] Co de Phone Number [facility] [address] [place] [address] * (ABNORMAL) BACTERIAL CULTURE, BLOOD (06/01/2024 8:00 EST) Organism ID Methicillin-Resis tant Staphylococcus aureus(AA) 06/04/2024 7:37 EST [facility] Comment: Detected at 29 hours Resistant to all penicillins (including nafcillin), combinations of penicillins and beta lactamase inhibitors (eg amoxicillin clavulanic acid, ampicillin sulbactam, piperacillin tazobactam), cephalosporins, and all carbapenems (eg meropenem and imipenem). (mecA gene product present). Ceftaroline may be active in some cases. Phoenix morphology consistent with other culture from same [...] GENERAL ORDERABLES Final Result Performing Organization Address [facility] Co de Phone Number [facility] [address] [place] [phone] * (ABNORMAL) HEPATIC FUNCTION PANEL (ALB,ALK PHOS,ALT,AST,DBIL,TOT STEPHANY,TOT PROT) (06/01/2024 8:00 EST) Total Protein 7.6 6.3 - 8.2 g/dL 06/01/2024 9:27 EST [facility] Albumin 3.5 3.4 - 4.9 g/dL 06/01/2024 9:27 EST [facility] Bilirubin, Total <0.5 <1.4 mg/dL 06/01/20 9:27 [facility] Conjugated Bilirubin 0.0 <=0.3 mg/dL 06/01/2024 9:27 [facility] Unconjugated Bilirubin 0.1 <=1.1 mg/dL 06/01/2024 9:27 [facility] Alkaline Phosphatase 74 38 - 126 U/L 06/01/2024 9:27 [facility] ALT 9 <50 U/L 06/01/2024 9:27 [facility] AST 14(L) 15 - 46 U/L 06/01/2024 9:27 [facility] Calculated Total Bilirubin 0.1 <1.4 mg/dL 06/01/2024 9:27 [facility] Blood VENOUS BLOOD / Unknown Venipuncture / Unknown 06/01/2024 8:00 EST 06/01/2024 8:50 EST Meaghan Zapata MD CHEMISTRY & BLOOD GAS ORDERABLES Final Result Performing Organization Address City/[facility]/ZIP Co de Phone Number [facility] [address] [place] [address] * CK (06/01/2024 8:00 EST) CK 29 <=250 U/L 06/01/2024 9:27 [facility] Blood VENOUS BLOOD / Unknown Venipuncture / Unknown 06/01/2024 8:00 EST 06/01/2024 8:50 EST Meaghan Zapata MD CHEMISTRY & BLOOD GAS ORDERABLES Final Result [facility] [address] [place] [address] * FERRITIN (05/31/2024 8:13 EST) Ferritin 137 22 - 322 ng/mL 05/31/2024 13:14 [facility] Blood VENOUS BLOOD / Unknown Venipuncture / Unknown 05/31/2024 8:13 EST 05/31/2024 8:52 EST Meaghan Zapata MD CHEMISTRY & BLOOD GAS ORDERABLES Final Result Performing Organization Address [facility] de Phone Number [facility] [address] [place] [address] * (ABNORMAL) TRANSFERRIN SATURATION (05/31/2024 8:13 EST) Iron 39(L) 49 - 181 ??g/dL 05/31/2024 12:07 [facility] Iron Binding Capacity 276 240 - 450 ??g/dL 05/31/2024 12:07 [facility] Transferrin Saturation 14(L) 15 - 45 % 05/31/2024 12:07 [facility] Blood VENOUS BLOOD / Unknown Venipuncture / Unknown 05/31/2024 8:13 EST 05/31/2024 8:52 EST Meaghan Zapata MD CHEMISTRY & BLOOD GAS ORDERABLES Final Result Performing Organization Address [facility] de Phone Number [facility] [address] [place] [address] * (ABNORMAL) BASIC METABOLIC PANEL (BMP) (05/31/2024 8:13 EST) Sodium 138 136 - 145 mmol/L 05/31/2024 9:23 [facility] Potassium 4.8 3.5 - 5.0 mmol/L 05/31/2024 9:23 [facility] Chloride 101 96 - 110 mmol/L 05/31/2024 9:23 [facility] CO2 Total 24 22 - 32 mmol/L 05/31/2024 9:23 [facility] Anion Gap 13 5 - 14 mmol/L 05/31/2024 9:23 [facility] Glucose 122(H) 70 - 99 mg/dl 05/31/2024 9:23 [facility] Calcium 9.6 8.5 - 10.5 mg/dL 05/31/2024 9:23 [facility] BUN 14 10 - 26 mg/dL 05/31/2024 9:23 [facility] Creatinine 0.71 0.66 - 1.25 mg/dL 05/31/2024 9:23 [facility] eGFR 116 >60 mL/min/1.73 m2 05/31/2024 9:23 [facility] Blood VENOUS BLOOD / Unknown Venipuncture / Unknown 05/31/2024 8:13 EST 05/31/2024 8:52 EST Martha Syed MD MPH CHEMISTRY & BLOOD GAS O RDERABLES Final Result Performing Organization Address [facility]/ZIP Co de Phone Number [facility] [address] [place] [address] * MAGNESIUM (05/31/2024 8:13 EST) Magnesium 2.2 1.7 - 2.8 mg/dL 05/31/2024 9:23 [facility] Blood VENOUS BLOOD / Unknown Venipuncture / Unknown 05/31/2024 8:13 EST 05/31/2024 8:52 EST Taj Parsons DO CHEMISTRY & BLOOD GAS ORDERABLES Final Result Performing Organization Address [facility]/ZIP Co de Phone Number [facility] [address] [place] [address] * (ABNORMAL) COMPLETE BLOOD COUNT (05/31/2024 8:13 EST) WBC 8.06 4.00 - 10.40 K/cmm 05/31/2024 9:00 [facility] RBC 4.56 4.36 - 5.78 M/cmm 05/31/2024 9:00 [facility] Hemoglobin 12.0(L) 13.8 - 17.3 g/dL 05/31/2024 9:00 [facility] HCT 35.8(L) 39.5 - 50.2 % 05/31/2024 9:00 [facility] MCV 79(L) 81 - 95 fL 05/31/2024 9:00 [facility] MCH 26.3(L) 27.6 - 33.0 pg 05/31/2024 9:00 [facility] MCHC 33.5 32.8 - 36.4 g/dL 05/31/2024 9:00 [facility] RDW-CV 15.0(H) <14.2 % 05/31/2024 9:00 [facility] RDW-SD 42.8 <46.0 fl 05/31/2024 9:00 [facility] PLT 244 141 - 377 K/cmm 05/31/2024 9:00 [facility] MPV 10.0 9.5 - 12.7 fL 05/31/2024 9:00 [facility] Blood VENOUS BLOOD / Unknown Venipuncture / Unknown 05/31/2024 8:13 EST 05/31/2024 8:50 EST Taj Parsons DO HEMATOLOGY & PF4 ORDERABLES Tia l Result [facility] [address] [place], [place] [id number] * (ABNORMAL) BACTERIAL CULTURE, BLOOD (05/30/2024 14:10 EST) Organism ID Methicillin-Resi stant Staphylococcus aureus(AA) VITEK SUSCEPTIBILITY 8:10 [facility] Comment: Detected at 19.3 hours. [...] aureus Vancomycin VITEK SUSCEPTIBILITY <=0.5 ug/mL: Susceptible us Meaghan Zapata MD MICROBIOLOGY - GENERAL ORDERABLES Final Result Performing Organization Address [facility]/ZIP Co de Phone Number [facility] [address] [place] [address] * BACTERIAL CULTURE, BLOOD (05/30/2024 14:05 EST) Organism ID No Growth at 5 days 06/04/2024 15:01 EST [facility] Blood VENOUS BLOOD / Unknown Venipuncture / Unknown 05/30/2024 14:05 EST 05/30/2024 14:53 EST us Meaghan Zapata MD MICROBIOLOGY - GENERAL ORDERABLES Final Result Performing Organization Address City/[facility]/ZIP Co de Phone Number [facility] [address] [place] [id number] * FERRITIN (05/30/2024 7:34 EST) Ferritin 143 22 - 322 ng/mL 05/31/2024 10:36 EST [facility] Blood VENOUS BLOOD / Unknown Venipuncture / Unknown 05/30/2024 7:34 EST 05/30/2024 8:01 EST us Meaghan Zapata MD CHEMISTRY & BLOOD GAS ORDERABLES Final Result Performing Organization Address [facility]/ZIP Co de Phone Number [facility] [address] [place] [address] * (ABNORMAL) TRANSFERRIN SATURATION (05/30/2024 7:34 EST) Iron 40(L) 49 - 181 ??g/dL 05/31/2024 9:05 [facility] Iron Binding Capacity 237(L) 240 - 450 ??g/dL 05/31/2024 9:05 [facility] Transferrin Saturation 17 15 - 45 % 05/31/2024 9:05 [facility] Blood VENOUS BLOOD / Unknown Venipuncture / Unknown 05/30/2024 7:34 EST 05/30/2024 8:01 EST Meaghan Zapata MD CHEMISTRY & BLOOD GAS ORDERABLES Final Result Performing Organization Address [facility] de Phone Number [facility] [address] [place] [address] * (ABNORMAL) BASIC METABOLIC PANEL (BMP) (05/30/2024 7:34 EST) Pathologist [facility] Sodium 137 136 - 145 mmol/L 05/30/2024 8:42 [facility] Potassium 4.6 3.5 - 5.0 mmol/L 05/30/2024 8:42 [facility] Chloride 103 96 - 110 mmol/L 05/30/2024 8:42 [facility] CO2 Total 25 22 - 32 mmol/L 05/30/2024 8:42 [facility] Anion Gap 9 5 - 14 mmol/L 05/30/2024 8:42 [facility] Glucose 161(H) 70 - 99 mg/dl 05/30/2024 8:42 [facility] Calcium 9.2 8.5 - 10.5 mg/dL 05/30/2024 8:42 [facility] BUN 17 10 - 26 mg/dL 05/30/2024 8:42 [facility] Creatinine 0.70 0.66 - 1.25 mg/dL 05/30/2024 8:42 [facility] eGFR 117 >60 mL/min/1.73 m2 05/30/2024 8:42 [facility] Blood VENOUS BLOOD / Unknown Venipuncture / Unknown 05/30/2024 7:34 EST 05/30/2024 8:01 EST us Martha Syed MD MPH CHEMISTRY & BLOOD GAS O RDERABLES Final Result [facility] [address] [place] [address] * MAGNESIUM (05/30/2024 7:34 EST) Pathologist [facility] Magnesium 2.2 1.7 - 2.8 mg/dL 05/30/2024 8:42 [facility] Blood VENOUS BLOOD / Unknown Venipuncture / Unknown 05/30/2024 7:34 EST 05/30/2024 8:01 EST us Taj Parsons DO CHEMISTRY & BLOOD GAS ORDERABLES Final Result Performing Organization Address City/[facility]/ZIP Co de Phone Number [facility] [address] [place] [address] * (ABNORMAL) COMPLETE BLOOD COUNT (05/30/2024 7:34 EST) WBC 6.24 4.00 - 10.40 K/cmm 05/30/2024 8:18 [facility] RBC 3.97(L) 4.36 - 5.78 M/cmm 05/30/2024 8:18 [facility] Hemoglobin 10.7(L) 13.8 - 17.3 g/dL 05/30/2024 8:18 [facility] HCT 31.2(L) 39.5 - 50.2 % 05/30/2024 8:18 [facility] MCV 79(L) 81 - 95 fL 05/30/2024 8:18 [facility] MCH 27.0(L) 27.6 - 33.0 pg 05/30/2024 8:18 [facility] MCHC 34.3 32.8 - 36.4 g/dL 05/30/2024 8:18 [facility] RDW-CV 15.0(H) <14.2 % 05/30/2024 8:18 [facility] RDW-SD 43.1 <46.0 fl 05/30/2024 8:18 [facility] PLT 251 141 - 377 K/cmm 05/30/2024 8:18 [facility] MPV 10.4 9.5 - 12.7 fL 05/30/2024 8:18 [facility] Blood VENOUS BLOOD / Unknown Venipuncture / Unknown 05/30/2024 7:34 EST 05/30/2024 7:59 EST us Taj Parsons DO HEMATOLOGY & PF4 ORDERABLES Tia l Result [facility] [address] [place] [address] * TRANSESOPHAGEAL ECHO (MARIBEL) COMPLETE NO CONTRAST [...] Details This study was interpreted by [facility]. Pertinent images and digital data are archived for permanent storage and are available for subsequent review. During the study the esophageal view was captured. The probe was inserted by the tax lawyer. Images were obtained using cardiac ultrasound machine [...] Staphylococcus aureus(AA) VITEK SUSCEPTIBILITY 4 8:12 EST [facility] Comment: Detected at 18 hours [...] GENERAL ORDERABLES Final Result Performing Organization Address City/[facility]/ZIP Co de Phone Number [facility] [address] [place] [address] * BACTERIAL CULTURE, BLOOD (05/29/2024 12:16 EST) Pathologist [facility] Organism ID No Growth at 5 days 06/03/2024 12:31 EST [facility] Blood VENOUS BLOOD / Unknown Venipuncture / Unknown 05/29/2024 12:16 EST 05/29/2024 12:24 EST Meaghan Zapata MD MICROBIOLOGY - GENERAL ORDERABLES Final Result Performing Organization Address [facility] Co de Phone Number [facility] [address] [place] [address] * (ABNORMAL) BASIC METABOLIC PANEL (BMP) (05/29/2024 12:16 EST) Pathologist [facility] Sodium 137 136 - 145 mmol/L 05/29/2024 13:11 EST [facility] Potassium 4.5 3.5 - 5.0 mmol/L 05/29/2024 13:11 [facility] Chloride 104 96 - 110 mmol/L 05/29/2024 13:11 [facility] CO2 Total 23 22 - 32 mmol/L 05/29/2024 13:11 [facility] Anion Gap 10 5 - 14 mmol/L 05/29/2024 13:11 [facility] Glucose 91 70 - 99 mg/dl 05/29/2024 13:11 [facility] Calcium 9.1 8.5 - 10.5 mg/dL 05/29/2024 13:11 [facility] BUN 10 10 - 26 mg/dL 05/29/2024 13:11 [facility] Creatinine 0.60(L) 0.66 - 1.25 mg/dL 05/29/2024 13:11 [facility] eGFR 122 >60 mL/min/1.73 m2 05/29/2024 13:11 [facility] Blood VENOUS BLOOD / Unknown Venipuncture / Unknown 05/29/2024 12:16 EST 05/29/2024 12:36 EST Martha Syed MD MPH CHEMISTRY & BLOOD GAS O RDERABLES Final Result [facility] [address] [place] [address] * MAGNESIUM (05/29/2024 12:16 EST) Magnesium 2.2 1.7 - 2.8 mg/dL 05/29/2024 13:11 [facility] Blood VENOUS BLOOD / Unknown Venipuncture / Unknown 05/29/2024 12:16 EST 05/29/2024 12:36 EST us Taj Parsons DO CHEMISTRY & BLOOD GAS ORDERABLES Final Result [facility] [address] [place] [id number] * (ABNORMAL) COMPLETE BLOOD COUNT (05/29/2024 12:16 EST) WBC 6.69 4.00 - 10.40 K/cmm 05/29/2024 12:44 [facility] RBC 4.13(L) 4.36 - 5.78 M/cmm 05/29/2024 12:44 [facility] Hemoglobin 11.1(L) 13.8 - 17.3 g/dL 05/29/2024 12:44 [facility] HCT 32.3(L) 39.5 - 50.2 % 05/29/2024 12:44 [facility] MCV 78(L) 81 - 95 fL 05/29/2024 12:44 [facility] MCH 26.9(L) 27.6 - 33.0 pg 05/29/2024 12:44 [facility] MCHC 34.4 32.8 - 36.4 g/dL 05/29/2024 12:44 [facility] RDW-CV 15.2(H) <14.2 % 05/29/2024 12:44 [facility] RDW-SD 42.8 <46.0 fl 05/29/2024 12:44 [facility] PLT 205 141 - 377 K/cmm 05/29/2024 12:44 [facility] MPV 10.3 9.5 - 12.7 fL 05/29/2024 12:44 [facility] Blood VENOUS BLOOD / Unknown Venipuncture / Unknown 05/29/2024 12:16 EST 05/29/2024 12:36 EST us Taj Parsons DO HEMATOLOGY & PF4 ORDERABLES Tia l Result [facility] [address] [place], [place] [id number] * HIV 1 RNA QUANTITATION (05/28/2024 13:26 EST) HIV RNA Detection, Qual Undetected Undetected copies/mL 05/29/2024 12:31 EST [facility] Blood VENOUS BLOOD / Unknown Venipuncture / Unknown 05/28/2024 13:26 EST 05/28/2024 13:32 EST Narrative [facility] - 05/29/2024 12:31 EST The quantification range of this assay is 20 IU/mL to 10,000,000 IU/mL. ??Testing was performed using the John HIV test (Aleisha [employer] with the john [employer] System. us Martha Syed MD MPH CHEMISTRY & BLOOD GAS O RDERABLES Final Result [facility] [address] [place] [address] * XR ENTIRE SPINE 2-3 VIEWS (05/28/2024 8:42 EST) Anatomical Region Laterality Modality Spine Computed Radiogr aphy 05/28/2024 12:1 7 EST Impressions 05/28/2024 12:17 EST No significant malalignment evident. [id number] Narrative 05/28/2024 12:17 EST XR ENTIRE SPINE [...] pleural effusions are evident. Resulting Agency Comment [id number] Procedure Note Moe Martin MD - 05/28/2024 [...] effusions areevident. IMPRESSION No significant malalignment evident. [id number] us Martha Syed MD MPH IMG DIAGNOSTIC [...] up to 7 mm. Correlate with LFTs. [id number] Narrative 05/28/2024 12:[address] ABDOMEN PELVIS [...] osseous abnormality. Limbus vertebral body at L3. Lab Assistant: No additional finding Resulting Agency Comment [id number] Procedure Note Trupti Alvarez MD - 05/28/2024 [...] aggressive osseous abnormality. Limbusvertebral body at L3. Lab Assistant: No additional finding IMPRESSION 1. No embolic findings. Normal enhancement of the kidneys and spleen. 2. Splenomegaly. 3. Mild extrahepatic biliary dilation measuring up to 7 mm. Correlate withLFTs. [id number] us Martha Syed MD MPH IMG CT ORDERABLES Final Result * CT CHEST W CONTRAST (05/28/2024 8:33 EST) Anatomical Region Laterality Modality Chest Computed Tomogra phy 05/28/2024 12:1 4 EST Impressions 05/28/2024 12:14 EST Trace bilateral pleural effusions with associated passive atelectasis. [id number] Narrative 05/28/2024 12:[address] CHEST W [...] in the bones. ?? Resulting Agency Comment [id number] Procedure Note Trupti Alvarez MD - 05/28/2024 [...] bilateral pleural effusions with associated passive atelectasis. [id number] us Martha Syed MD MPH IMG CT ORDERABLES Final Result * (ABNORMAL) HEPATIC FUNCTION PANEL (ALB,ALK PHOS,ALT,AST,DBIL,TOT STEPHANY,TOT PROT) (05/28/2024 6:54 EST) Total Protein 7.0 6.3 - 8.2 g/dL 05/29/2024 8:38 [facility] Albumin 3.2(L) 3.4 - 4.9 g/dL 05/29/2024 8:38 [facility] Bilirubin, Total <0.5 <1.4 mg/dL 05/29/20 8:38 [facility] Conjugated Bilirubin 0.0 <=0.3 mg/dL 05/29/2024 8:38 [facility] Unconjugated Bilirubin 0.3 <=1.1 mg/dL 05/29/2024 8:38 [facility] Alkaline Phosphatase 53 38 - 126 U/L 05/29/2024 8:38 [facility] ALT 12 <50 U/L 05/29/2024 8:38 [facility] AST 18 15 - 46 U/L 05/29/2024 8:38 [facility] Calculated Total Bilirubin 0.3 <1.4 mg/dL 05/29/2024 8:38 [facility] Blood VENOUS BLOOD / Unknown Venipuncture / Unknown 05/28/2024 6:54 EST 05/28/2024 7:18 EST us Meaghan Zapata MD CHEMISTRY & BLOOD GAS ORDERABLES Final Result Performing Organization Address [facility]/ZIP Co de Phone Number [facility] [address] [place] [id number] * CK (05/28/2024 6:54 EST) CK 28 <=250 U/L 05/28/2024 14:02 EST [facility] Blood VENOUS BLOOD / Unknown Venipuncture / Unknown 05/28/2024 6:54 EST 05/28/2024 7:18 EST us Martha Syed MD MPH CHEMISTRY & BLOOD GAS O RDERABLES Final Result [facility] [address] [place] [address] * (ABNORMAL) BASIC METABOLIC PANEL (BMP) (05/28/2024 6:54 EST) Sodium 137 136 - 145 mmol/L 05/28/2024 7:58 [facility] Potassium 4.1 3.5 - 5.0 mmol/L 05/28/2024 7:58 [facility] Chloride 104 96 - 110 mmol/L 05/28/2024 7:58 [facility] CO2 Total 23 22 - 32 mmol/L 05/28/2024 7:58 [facility] Anion Gap 10 5 - 14 mmol/L 05/28/2024 7:58 [facility] Glucose 133(H) 70 - 99 mg/dl 05/28/2024 7:58 [facility] Calcium 9.0 8.5 - 10.5 mg/dL 05/28/2024 7:58 [facility] BUN 8(L) 10 - 26 mg/dL 05/28/2024 7:58 [facility] Creatinine 0.61(L) 0.66 - 1.25 mg/dL 05/28/2024 7:58 [facility] eGFR 121 >60 mL/min/1.73 m2 05/28/2024 7:58 [facility] Blood VENOUS BLOOD / Unknown Venipuncture / Unknown 05/28/2024 6:54 EST 05/28/2024 7:18 EST us Taj Parsons DO CHEMISTRY & BLOOD GAS ORDERABLES Final Result [facility] [address] [place] [address] * MAGNESIUM (05/28/2024 6:54 EST) Pathologist [facility] Magnesium 2.0 1.7 - 2.8 mg/dL 05/28/2024 7:58 [facility] Blood VENOUS BLOOD / Unknown Venipuncture / Unknown 05/28/2024 6:54 EST 05/28/2024 7:18 EST us Taj Parsons DO CHEMISTRY & BLOOD GAS ORDERABLES Final Result [facility] [address] [place] [address] * (ABNORMAL) COMPLETE BLOOD COUNT (05/28/2024 6:54 EST) WBC 6.63 4.00 - 10.40 K/cmm 05/28/2024 7:22 [facility] RBC 3.75(L) 4.36 - 5.78 M/cmm 05/28/2024 7:22 [facility] Hemoglobin 10.1(L) 13.8 - 17.3 g/dL 05/28/2024 7:22 [facility] HCT 29.2(L) 39.5 - 50.2 % 05/28/2024 7:22 [facility] MCV 78(L) 81 - 95 fL 05/28/2024 7:22 [facility] MCH 26.9(L) 27.6 - 33.0 pg 05/28/2024 7:22 [facility] MCHC 34.6 32.8 - 36.4 g/dL 05/28/2024 7:22 [facility] RDW-CV 15.3(H) <14.2 % 05/28/2024 7:22 [facility] RDW-SD 43.1 <46.0 fl 05/28/2024 7:22 [facility] PLT 281 141 - 377 K/cmm 05/28/2024 7:22 [facility] MPV 9.7 9.5 - 12.7 fL 05/28/2024 7:22 [facility] Blood VENOUS BLOOD / Unknown Venipuncture / Unknown 05/28/2024 6:54 EST 05/28/2024 7:15 EST Taj Parsons DO HEMATOLOGY & PF4 ORDERABLES Tia l Result [facility] [address] [place] [address] * (ABNORMAL) BACTERIAL CULTURE, BLOOD (05/27/2024 22:58 EST) Organism ID Methicillin-Resi stant Staphylococcus aureus(AA) VITEK SUSCEPTIBILITY 9:26 EST [facility] Comment: Detected at 15 [...] aureus Vancomycin VITEK SUSCEPTIBILITY 1 ug/mL: Susceptible Martha Syed MD MPH MICROBIOLOGY - GENERAL ORDERABLES Final Result [facility] [address] [place] [address] * (ABNORMAL) BACTERIAL CULTURE, BLOOD (05/27/2024 22:04 EST) Organism ID Methicillin-Resis tant Staphylococcus aureus(AA) 05/31/2024 10:04 EST [facility] Comment: Detected at 15 hours Resistant to all penicillins (including nafcillin), combinations of penicillins and beta lactamase inhibitors (eg amoxicillin clavulanic acid, ampicillin sulbactam, piperacillin tazobactam), cephalosporins, and all carbapenems (eg meropenem and imipenem). (mecA gene product present). Ceftaroline may be active in some cases. Phoenix morphology consistent with other culture from same [...] MPH MICROBIOLOGY - GENERAL ORDERABLES Final Result [facility] [address] [place] [address] * EKG 12-LEAD (05/27/2024 8:31 EST) 05/27/2024 8:31 EST Narrative [facility] EKG - 06/05/2024 8:18 EST ? [facility] ? Test Date: ?2024-05-27 Pat Name: ? MARCOS CAMEJO ?Department: ?? [address] ? Room: ? [id number] Gender: ? Male ? Stenocaptioner: ?? [id number] : ?1980 ? Requested By: MARCI MENDOZA Order Number: [id number] ? Reading : ?? BROOKS GEORGE MD ? Measurements Intervals ?Morrice ? Rate: ? 66 ? P: ?34 [...] Note Brooks George MD - 06/05/2024 [facility] Test Date: 2024-05-27 Pat Name: MARCOS CAMEJO Department: [place] [address] Room: [id number] Gender: Male Stenocaptioner: [id number] : 1980 Requested By: MARCI MENDOZA Order Number: [id number] Reading MD: BROOKS GEORGE MD Measurements Intervals Morrice Rate: 66 P: 34 NH: 166 QRS: [...] ECG ORDERABLES Final Result Performing Organization Address City/[facility] Co de Phone Number [facility] EKG * (ABNORMAL) HEMOGLOBIN A1C (05/27/2024 7:23 EST) Hemoglobin A1c 6.2(H) <5.7 % 05/28/2024 8:23 EST [facility] Comment: Glycemic Status References: Normal: ??<5.7% Pre-Diabetes: ??5.7% - 6.4% Diagnostic of Diabetes: ??> or = 6.5% (if confirmed) Est Avg Glucose 131 mg/dL 8:23 EST [facility] Comment:The eAG represents t he A1c result expressed as average glucose in mg/dL. Blood VENOUS BLOOD / Unknown Venipuncture / Unknown 05/27/2024 7:23 EST 05/27/2024 7:35 EST us Martha Syed MD MPH CHEMISTRY & BLOOD GAS O RDERABLES Final Result Performing Organization Address City/[facility] Co de Phone Number [facility] [address] [place] [address] * HN LAB CBC SMEAR REVIEW (05/27/2024 7:23 EST) Differential Comment Slide was examined by a technologist to verify the WBC and/or platelet count. 05/27/2024 8:12 EST [facility] Blood VENOUS BLOOD / Unknown Venipuncture / Unknown 05/27/2024 7:23 EST 05/27/2024 7:35 EST us Taj Parsons DO HEMATOLOGY & PF4 ORDERABLES Tia l Result Performing Organization Address City/[facility] Co de Phone Number [facility] [address] [place] [address] * (ABNORMAL) BASIC METABOLIC PANEL (BMP) (05/27/2024 7:23 EST) Sodium 135(L) 136 - 145 mmol/L 05/27/2024 7:53 [facility] Potassium 4.0 3.5 - 5.0 mmol/L 05/27/2024 7:53 [facility] Chloride 104 96 - 110 mmol/L 05/27/2024 7:53 [facility] CO2 Total 25 22 - 32 mmol/L 05/27/2024 7:53 [facility] Anion Gap 6 5 - 14 mmol/L 05/27/2024 7:53 [facility] Glucose 126(H) 70 - 99 mg/dl 05/27/2024 7:53 [facility] Calcium 8.7 8.5 - 10.5 mg/dL 05/27/2024 7:53 [facility] BUN 14 10 - 26 mg/dL 05/27/2024 7:53 [facility] Creatinine 0.61(L) 0.66 - 1.25 mg/dL 05/27/2024 7:53 [facility] eGFR 121 >60 mL/min/1.73 m2 05/27/2024 7:53 [facility] Blood VENOUS BLOOD / Unknown Venipuncture / Unknown 05/27/2024 7:23 EST 05/27/2024 7:35 EST [facility] CHEMISTRY & BLOOD GAS ORDERABLES Final Result Performing Organization Address [facility] de Phone Number [facility] [address] [place] [address] * MAGNESIUM (05/27/2024 7:23 EST) Magnesium 2.1 1.7 - 2.8 mg/dL 05/27/2024 7:53 [facility] Blood VENOUS BLOOD / Unknown Venipuncture / Unknown 05/27/2024 7:23 EST 05/27/2024 7:35 EST Taj Parsons CHEMISTRY & BLOOD GAS ORDERABLES Final Result Performing Organization Address [facility] de Phone Number [facility] [address] [place] [address] * (ABNORMAL) COMPLETE BLOOD COUNT (05/27/2024 7:23 EST) WBC 6.01 4.00 - 10.40 K/cmm 05/27/2024 8:12 [facility] RBC 4.04(L) 4.36 - 5.78 M/cmm 05/27/2024 8:12 [facility] Hemoglobin 10.9(L) 13.8 - 17.3 g/dL 05/27/2024 8:12 [facility] HCT 32.4(L) 39.5 - 50.2 % 05/27/2024 8:12 [facility] MCV 80(L) 81 - 95 fL 05/27/2024 8:12 [facility] MCH 27.0(L) 27.6 - 33.0 pg 05/27/2024 8:12 [facility] MCHC 33.6 32.8 - 36.4 g/dL 05/27/2024 8:12 EST [facility] RDW-CV 15.7(H) <14.2 % 05/27/2024 8:12 EST [facility] RDW-SD 46.3(H) <46.0 fl 05/27/2024 8:12 EST [facility] PLT 05/27/2024 8:12 EST [facility] Comment:Unreportable due to presence of platelet clumps. MPV 05/27/2024 8:12 EST [facility] Comment:Unreportable due to presence of platelet clumps. Blood VENOUS BLOOD / Unknown Venipuncture / Unknown 05/27/2024 7:23 EST 05/27/2024 7:35 EST us Taj Parsons DO HEMATOLOGY & PF4 ORDERABLES Tia clarke Result [facility] LABORATORY SERVICES [address] [place] [id number] * TRANSTHORACIC ECHO (TTE) COMPLETE W/DOPPLER W/CF [...] color Doppler.The study was interpreted by [facility]. Pertinent images and [...] Methicillin-Resis tant Staphylococcus aureus(AA) 05/29/2024 10:03 EST [facility]OR[facility]ORY [facility] Comment: Detected at 14.5 hours. Resistant to all penicillins (including nafcillin), combinations of penicillins and beta lactamase inhibitors (eg amoxicillin clavulanic acid, ampicillin sulbactam, piperacillin tazobactam), cephalosporins, and all carbapenems (eg meropenem and imipenem). (mecA gene product present). Ceftaroline may be active in some cases. [place] morphology consistent with other culture from same site/ source collected on the same day. Staphylococcus aureus is a life threatening infection when found in the blood. It should NOT be considered a contaminant. Staphylococcus aureus bacteremia should be treated with IV antibiotics. Infectious Disease consultation is encouraged. Blood VENOUS BLOOD / Unknown Venipuncture / Unknown 2024 14:34 EST 2024 14:45 EST us Taj Parsons DO MICROBIOLOGY - GENERAL ORDERABLE S Final Result [facility] [address] [place] [id number] * (ABNORMAL) BACTERIAL CULTURE, BLOOD (2024 14:33 EST) Organism ID Methicillin-Resi stant Staphylococcus aureus(AA) VITEK SUSCEPTIBILITY 10:03 EST [facility] Comment: Detected at 14 hours. [...] MICROBIOLOGY - GENERAL ORDERABLE S Final Result [facility] [address] [place], [place] [id number] * (ABNORMAL) COMPREHENSIVE METABOLIC PANEL (CMP) (2024 14:32 EST) Sodium 137 136 - 145 mmol/L 2024 15:03 EST [facility] Potassium 4.1 3.5 - 5.0 mmol/L 2024 15:03 [facility] Chloride 100 96 - 110 mmol/L 2024 15:03 [facility] CO2 Total 26 22 - 32 mmol/L 2024 15:03 [facility] Glucose 157(H) 70 - 99 mg/dl 2024 15:03 [facility] BUN 11 10 - 26 mg/dL 2024 15:03 [facility] Creatinine 0.66 0.66 - 1.25 mg/dL 2024 15:03 [facility] eGFR 119 >60 mL/min/1.7 3m2 2024 15:03 [facility] Total Protein 7.9 6.3 - 8.2 g/dL 2024 15:03 [facility] Albumin 3.9 3.4 - 4.9 g/dL 2024 15:03 [facility] Alkaline Phosphatase 58 38 - 126 U/L 2024 15:03 [facility] AST 21 15 - 46 U/L 2024 15:03 [facility] ALT 16 <50 U/L 2024 15:03 [facility] Bilirubin, Total <0.5 <1.4 mg/dL 05/26/20 15:03 [facility] Calcium 9.3 8.5 - 10.5 mg/dL 2024 15:03 [facility] Albumin/Globulin Ratio 1.0 1.0 - 2.5 2024 15:03 [facility] Anion Gap 11 5 - 14 mmol/L 2024 15:03 [facility] Blood VENOUS BLOOD / Unknown Venipuncture / Unknown 2024 14:32 EST 2024 14:42 EST us Taj Parsons DO CHEMISTRY & BLOOD GAS ORDERABLES Final Result [facility] [address] [place] [address] * PROCALCITONIN (2024 14:32 EST) Procalcitonin 0.30 See Note ng/mL 2024 16:02 EST [facility] Comment: NOTE: Reference Range: <0.5 ng/mL - Low risk of severe sepsis >2.0 ng/mL - High risk of severe sepsis Blood VENOUS BLOOD / Unknown Venipuncture / Unknown 2024 14:32 EST 2024 14:42 EST us Taj Parsons DO CHEMISTRY & BLOOD GAS ORDERABLES Final Result Performing Organization Address City/[facility]/ZIP Co de Phone Number [facility] [address] [place] [address] * (ABNORMAL) SED RATE (2024 14:32 EST) Pathologist [facility] Sed Rate 61(H) 0 - 15 mm/hr 2024 15:41 EST [facility] Blood VENOUS BLOOD / Unknown Venipuncture / Unknown 2024 14:32 EST 2024 14:42 EST us Taj Parsons DO HEMATOLOGY & PF4 ORDERABLES Tia l Result Performing Organization Address [facility] Co de Phone Number [facility] [address] [place] [phone] * (ABNORMAL) C REACTIVE PROTEIN (2024 14:32 EST) Pathologist [facility] C-Reactive Protein 210.7(H) <10.0 mg/L 2024 15:17 EST [facility] Blood VENOUS BLOOD / Unknown Venipuncture / Unknown 2024 14:32 EST 2024 14:42 EST us Taj Parsons DO CHEMISTRY & BLOOD GAS ORDERABLES Final Result Performing Organization Address [facility] Co de Phone Number [facility] [address] [place] [address] * (ABNORMAL) COMPLETE BLOOD COUNT AND DIFFERENTIAL (2024 14:32 EST) WBC 6.66 4.00 - 10.40 K/cmm 2024 15:01 [facility] RBC 4.27(L) 4.36 - 5.78 M/cmm 2024 15:01 [facility] Hemoglobin 11.7(L) 13.8 - 17.3 g/dL 2024 15:01 [facility] HCT 34.3(L) 39.5 - 50.2 % 2024 15:01 [facility] MCV 80(L) 81 - 95 fL 2024 15:01 [facility] MCH 27.4(L) 27.6 - 33.0 pg 2024 15:01 [facility] MCHC 34.1 32.8 - 36.4 g/dL 2024 15:01 [facility] RDW-CV 15.9(H) <14.2 % 2024 15:01 [facility] RDW-SD 46.5(H) <46.0 fl 2024 15:01 [facility] PLT 277 141 - 377 K/cmm 2024 15:01 [facility] MPV 10.1 9.5 - 12.7 fL 2024 15:01 [facility] % Neutrophils 60.1 Not Indicated % 2024 15:01 [facility] % Lymphocytes 29.9 Not Indicated % 2024 15:01 [facility] % Monocytes 7.7 Not Indicated % 2024 15:01 [facility] % Eosinophils 1.4 Not Indicated % 2024 15:01 [facility] % Basophils 0.3 Not Indicated % 2024 15:01 [facility] % Immature Grans 0.6 Not Indicated % 2024 15:01 [facility] Absolute Neutrophils 4.01 2.20 - 8.85 K/cmm 2024 15:01 [facility] Absolute Lymphocytes 1.99 1.09 - 3.30 K/cmm 2024 15:01 [facility] Absolute Monocytes 0.51 0.10 - 0.80 K/cmm 2024 15:01 [facility] Absolute Eosinophils 0.09 0.03 - 0.61 K/cmm 2024 15:01 [facility] ABS Basophils 0.02 0.01 - 0.11 K/cmm 2024 15:01 [facility] Absolute Immature Grans 0.04 0.00 - 0.06 K/cmm 2024 15:01 [facility] Type of Differential: Auto 2024 15:01 [facility] Blood VENOUS BLOOD / Unknown Venipuncture / Unknown 2024 14:32 EST 2024 14:42 EST us Taj Parsons DO PACKAGES & DNA PROBE ORDERABLES Final Result [facility] [address] [place] [address] * POCT US ED GUIDANCE PIV (2024 [...] (MRSA) without acute organ dysfunction ([facility]) Acute pain Other acute pain Opioid use disorder Anxiety Anxiety state, unspecified Mood disorder ([facility]) Unspecified episodic mood disorder Iron deficiency anemia, unspecified iron deficiency anemia type Chronic hepatitis C without hepatic coma ([facility]) Chronic hepatitis C without mention of hepatic coma Type 2 diabetes mellitus with hyperglycemia, without long-term current use of insulin ([facility]) Discitis of thoracolumbar region Other and unspecified disc disorder of thoracic region 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 Sepsis due to methicillin resistant Staphylococcus aureus (MRSA) without acute organ dysfunction ([facility]) Acute pain Other acute pain Opioid use disorder MRSA bacteremia Bacteremia documented in this encounter Admitting Diagnoses [...] doses, First dose (after last modification) on 06/18/24 at 1400, Last dose on Wed07/07/24 at [...] on 06/26/24 at 1830, Last dose on Wed07/07/24 at [...] mg 324 mg, oral, EVERY MON, WED, FRI, First dose on 07/03/24 at 0900, Until [...] on Wed06/26/24 at 1200, Until Discontinued, Routine Given 07/01/2024 [...] oral, EVERY 6 HOURS PRN, Starting on 05/28/24 at 1345, Until Discontinued, Pain, Routine lidocaine [...] at 1839, Until Discontinued, Line Care, Routine documented in this encounter Discontinued Medications Medication [...] RN)2048 (Given - Provider: Neel Hartmann RN) 030 (Not Given - Provider: Neel Hartmann RN - Reason: Patient/family refused)0912 (Given - Provider: Keira Patiño RN)1410 (Given - Provider: Keira Patiño RN)210 (Given - Provider: Wilfredo Alfonso RN) 032 (Not Given - Provider: Wilfredo Alfonso RN - Reason: Patient/family refused)0828 (Given - Provider: Keira Patiño RN)1500 (Due)2100 (Due) baclofen (LIORESAL) tablet 10 mg 10 mg, oral, 3 TIMES DAILY, First dose on Wed06/18/24 at 1500, Until Discontinued, Routine 09 (Given - Provider: Keira Patiño RN)142 (Given - Provider: Keira Patiño RN)2207 (Given - Provider: Neel Hartmann RN) 09 (Given - Provider: Keira Patiño RN)1410 (Given - Provider: Keira Patiño RN)210 (Given - Provider: Wilfredo Alfonso RN) 0947 (Given - Provider: Keira Patiño RN)1500 (Due)2200 (Due) buprenorphine-naloxone (SUBOXONE) 8-2 mg SUBLINGUAL TABLET 1 Tablet(Linked Group 1) 1 Tablet, sublingual, AT BEDTIME, First dose (after last modification) on Wed06/27/24 at 2100, Until Discontinued, Routine 2048 (Given - Provider: Neel Hartmann RN) 210 (Given - Provider: Wilfredo Alfonso RN) 2100 (Due) buprenorphine-naloxone (SUBOXONE) 8-2 mg SUBLINGUAL TABLET 2 Tablet(Linked Group 1) 2 Tablet, sublingual, DAILY, First dose (after last modification) on Wed06/28/24 at 0900, Until Discontinued, Routine 08 (Given - Provider: Keira Patiño RN) 0912 (Given - Provider: Keira Patiño RN) 0828 (Given - Provider: Keira Patiño RN) ceftaroline [...] - Provider: Neel Hartmann RN - Comment: director medical surgical pushed back d/t iron infusion)09 (Given - Provider: Keira Patiño RN - Comment: given at scheduled time)171 (Given - Provider: Keira Patiño RN) 011 (Given - Provider: Wilfredo Alfonso, DAVID)08 (Given - Provider: Keira Patiño RN)170 (Due - Provider: Flory Paniagua [facility]) DAPTOmycin 850 mg in sodium chloride (NS) [...] ID Provider Consulted: Олег Chilel MD, STAT 7693 (New Bag - Provider: Neel Hartmann RN - Comment: iv iron infusing when due- admin time pushed back) 2104 (New Bag - Provider: Wilfredo Alfonso RN) 1999 (Due - Provider: Flory Paniagua [facility]) enoxaparin (LOVENOX) injection 40 mg 40 mg, subcutaneous, DAILY, First dose on Wed05/27/24 at 0900, Until Discontinued, Routine 0818 (Given - Provider: Keira Patiño RN) 0911 (Given - Provider: Keira Patiño RN) 0829 (Given - Provider: Keira Patiño RN) ferrous [...] RN)2049 (Given - Provider: Neel Hartmann RN) 0912 (Given - Provider: Keira Patiño RN)1311 (Given - Provider: Keira Patiño RN)2105 (Given - Provider: Wilfredo Alfonso RN) 0829 (Given - Provider: Keira Patiño RN)1400 (Due)2100 [...] (Patch Applied - Provider: Keira Patiño RN) 011 (Patch Removed - Provider: Neel Hartmann RN)011 (Patch Removed - Provider: Wilfredo Alfonso RN [...] Patiño RN)1427 (Given - Provider: Keira Patiño RN)204 (Given - Provider: Neel Hartmann, DAVID) 0912 (Given - Provider: Keira Patiño RN)131 (Given - Provider: Keira Patiño RN)210 (Given - Provider: Wilfredo Alfonso RN) 0828 (Given - Provider: Keira Patiño RN)1400 (Due)2100 (Due) metFORMIN (GLUCOPHAGE-XR) ER tablet 500 mg 500 mg, oral, 2 TIMES DAILY, First dose (after last modification) on Wed06/29/24 at 2100, Until Discontinued, Routine 0818 (Given - Provider: Keira Patiño, DAVID)2049 (Given - Provider: Neel Hartmann RN) 0912 (Given - Provider: Keira Patiño RN)2105 (Given - Provider: Wilfredo Alfonso, DAVID) 0828 (Given - Provider: Keira Patiño RN)2100 [...] Neel Hartmann RN - Reason: Patient/family refused) 914 (Not Given - Provider: Keira Patiño RN - Reason: Patient/family refused)2105 (Not Given - Provider: Wilfredo Alfonso RN - Reason: Patient/family refused) 08 (Not Given - Provider: Keira Patiño RN [...] Ordered Date ketOROLAC (TORADOL) injection 15 mg 14 07/0205/26/2024 naproxen (NAPROSYN) tablet 500 mg 3 024 06/12/2024 diclofenac sodium gel 2 g 1 07/01/2024 lidocaine 5 % (LIDODERM) patch 1 Patch 1 ferrous gluconate (FERGON) tablet 324 mg 1 06/30/2024 iron dextran (INFED) 1,100 m g in sodium chloride (NS) 0.9 % 250 mL IVPB 1 06/30/2024 iron dextran (INFED) 25 mg i n sodium chloride (NS) 0.9 % 50 mL IVPB 1 06/30/2024 metFORMIN (GLUCOPHAGE-XR) ER tablet 500 mg 2 06/29/2024 06/27/2024 buprenorphine-naloxone (SUBO XONE) 8-2 mg SUBLINGUAL TABLET 1 Tablet 6 06/27/2024 2024 buprenorphine-naloxone (SUBO XONE) 8-2 mg SUBLINGUAL TABLET 2 Tablet 3 06/27/2024 2024 DAPTOmycin 850 mg in sodium chloride (NS) 0.9 % 50 mL IVPB 1 06/26/2024 dextrose 50 % solution 12.5 g 1 06/26/2024 glucagon injection 1 mg 1 06/26/2024 insulin aspart U-100 (NOVOLO G FLEXPEN) injection 0-11 Units 1 06/26/2024 insulin aspart U-100 (NOVOLO G FLEXPEN) injection 3 Units 1 06/26/2024 insulin aspart U-100 (NOVOLO G) injection 3 Units 1 06/26/2024 HYDROmorphone (DILAUDID) tablet 2 mg 1 11/2023 HYDROmorphone (DILAUDID) tablet 4 mg 4 10/202305/27/2024 HYDROmorphone (DILAUDID) tablet 4-6 mg 1 baclofen (LIORESAL) tablet 10 mg 1 06/18/20 ceftaroline fosamiL 600 mg i n sodium chloride (NS) 0.9 % 50 mL IVPB 4 06/18/2024 morphine injection 2 mg 1 06/16/2024 gabapentin (NEURONTIN) capsule 400 mg 1 LORazepam (ATIVAN) tablet 1 mg 3 06/14/2024 06/08/2024 alteplase (CATHFLO ACTIVASE) injection 2 mg 1 06/13/2024 DAPTOmycin 875 mg in sodium chloride (NS) 0.9 % 50 mL IVPB 1 06/13/2024 DAPTOmycin in 0.9 % sod chlo r (CUBICIN) 350 mg/50 mL IVPB 350 mg 1 06/13/2024 DAPTOmycin in 0.9 % sod chlo r (CUBICIN) 500 mg/50 mL IVPB 500 mg 1 06/13/2024 HYDROmorphone (DILAUDID) tablet 6-8 mg 1 HYDROmorphone (DILAUDID) tablet 8 mg 1 05/20 lidocaine (PF) 10 mg/mL (1 % ) injection 5 mg 1 06/13/2024 sodium chloride 0.9 % (flush) flush 10 mL 2 06/13/2024 sodium chloride 0.9 % (flush) flush 20 mL 1 06/13/2024 ibuprofen (MOTRIN) tablet 800 mg 1 06/11/20 DAPTOmycin in 0.9 % sod chlo r (CUBICIN) 1,000 mg/100 mL IVPB 1,000 mg 1 06/08/2024 hydrOXYzine (ATARAX) tablet 25 mg 1 024 rifAMPin (RIFADIN) capsule 300 mg 1 gabapentin (NEURONTIN) capsule 300 mg 2 05/28/2024 iohexoL (OMNIPAQUE 350) solution 100 mL 2 1 08/05/2023 05/28/2024 buprenorphine-naloxone (SUBO XONE) 2-0.5 mg sublingual film 1 Film 1 06/04/2024 buprenorphine-naloxone (SUBO XONE) 2-0.5 mg SUBLINGUAL TABLET 1 Tablet 2 06/04/2024 05/28/2024 HYDROmorphone (PF) (DILAUDID ) 0.5 mg/0.5 mL syringe 0.5 mg 3 06/04/2024 05/29/2024 gadoterate meglumine solution 1-30 mL 1 HYDROmorphone (DILAUDID) tablet 6 mg 3 05/1905/27/2024 simethicone (MYLICON) chewab le tablet 80 mg 1 06/03/2024 DAPTOmycin 900 mg in sodium chloride (NS) 0.9 % 50 mL IVPB 1 05/30/2024 atropine 0.1 mg/mL syringe 0.5 mg 1 024 gabapentin (NEURONTIN) capsule 200 mg 3 05/202405/28/2024 HYDROmorphone (PF) (DILAUDID ) 0.5 mg/0.5 mL syringe 0.2 mg 1 05/29/2024 naloxone (NARCAN) injection 0.2 mg 1 2023 buprenorphine-naloxone (SUBO XONE) 2-0.5 mg SUBLINGUAL TABLET 3 Tablet 1 05/28/2024 DAPTOmycin 862.5 mg in sodiu m chloride (NS) 0.9 % 50 mL IVPB 1 05/28/2024 gabapentin (NEURONTIN) capsule 100 mg 2 04/202405/27/2024 HYDROmorphone (PF) (DILAUDID ) 0.5 mg/0.5 mL syringe 0.25 mg 1 05/28/2024 lactulose (CHRONULAC) 20 gra m/30 mL solution 30 mL 3 05/28/2024 05/27/2024 ibuprofen (MOTRIN) tablet 400 mg 1 05/27/20 pantoprazole (PROTONIX) tablet 20 mg 1 03/2024 acetaminophen (TYLENOL) tablet 1,000 mg 1 1 07/26/2023 acetaminophen (TYLENOL) tablet 650 mg 1 02/2024 bisacodyL (DULCOLAX) suppository 10 mg 1 cyclobenzaprine (FLEXERIL) tablet 10 mg 1 1 07/26/2023 enoxaparin (LOVENOX) injection 40 mg 1 02/2024 HYDROmorphone (PF) (DILAUDID ) 0.5 mg/0.5 mL syringe 1 mg 1 2024 lidocaine (PF) 10 mg/mL (1 % ) injection 2 mg 1 2024 nicotine polacrilex (COMMIT) 2 mg lozenge 2 mg 1 2024 polyethylene glycol 3350 (GA RALAX) packet 17 g 1 2024 QUEtiapine (SEROQUEL) tablet 100 mg 1 05/26 ramelteon (ROZEREM) tablet 8 mg 1 4 senna (SENOKOT) tablet 2 Tablet 1 4 vancomycin (VANCOCIN) 1,750 mg in sodium chloride (NS) 0.9 % 500 mL IVPB 2 2024 Diet Count Last Ordered Date First [...] NUTRITION 1 06/27/2024 CONSULT COLLABORATIVE CARE R ESPJAQUELINE TEAM (CCRT) 1 06/09/2024 IV Count Last Ordered Date First Orde red Date IV REQUEST 9 06/22/2024 05/27/2024 PICC LINE CLEARED FOR USE 1 06/13/2024 PICC FARM TRACTOR OPERATOR 1 06/13/2024 Admission Count Last Ordered Date [...] Resolved Time MRSA Comment:05/24/2024 +MRSA blood cultures [facility] Pos blood 05/26/24, 05/27/24, 05/29/24, 05/30/24, 06/01/24, 06/03/24, 06/04/24, 06/05/24 - Radha DiMasi 06/08/2024 2024 06/05/2024 documented as of this encounter Care Teams Hog Scraper Relationship Specialty Start Date End Date Raffi Merida DO [address] [place] [id number] PCP - General Family Medicine - Primary Care 05/26/24 documented as of this encounter
--- OUTSIDE RECORDS SUMMARY | 2024-07-02 14:33 | XMS_ITS | Encounter Summary ---
Author Organization [facility] Address [address] [place] [address] Care Team Providers Care Adjunct Faculty Instructor Name Role Phone None, Provider Unavailable Unavailable Milo Baer MD Primary Care Provider [phone] Reason for Referral * (Routine/Next Available) - Receiving Office to Obtain Authorization Specialty Diagnoses / Procedures Referred By Contac t Referred To Contact Procedures MR OUTSIDE IMAGES CERVICAL SPINE Unknown, ProviderMD Referral ID Status Reason Start Date Expiration Date Visits Requested Visits Authorized [id number] Receiving Office to Obtain Authorization 05/25/2024 1 1 Reason for Visit * (Routine/Next Available) - Receiving Office to Obtain Authorization Specialty Diagnoses / Procedures Referred By Contac t Referred To Contact Procedures MR OUTSIDE IMAGES CERVICAL SPINE Unknown, Provider, Referral ID Status Reason Start Date Expiration Date Visits Requested Visits Authorized [id number] Receiving Office to Obtain Authorization 05/25/2024 1 1 Encounter Details Date Type Department Care Team (Latest Contact Info) Description 05/25/2024 21:56 EST - 05/25/2024 23:59 EST Hospital Encounter [facility] Secondary Reads [place] Discharge Disposition: Home or Self Care Social History Tobacco Use Types Packs/Day Years Used Date Smoking Tobacco: Every Day Cigarettes 1 15 Smokeless Tobacco: Never Alcohol Use Standard Drinks/Week Comments Never 0 (1 standard drink = 0.6 oz pur e alcohol) [facility] Utilities Answer Date Recorded In the past 12 months has Organizer electric, gas, oil, or water company threatened [...] any time in the past 12 m [facility], were you homeless or living in a fci (including now)? No 2024 Interpersonal Safety Answer Date Record ed How [...] hearing? Answer Date of Assessment Author No 02/17/2023 16:55 EDT Deborah Stapleton RN * Are you blind or do you have serious difficulty seeing, even when wearing glasses? Answer Date of Assessment Author No 02/02/2020 23:00 EDT Nelly Felix RN * Do you have serious difficulty walking or climbing stairs? (5 years old or older) Answer Date of Assessment Author No 02/02/2020 23:00 EDT Nelly Felix RN * Do you have difficulty dressing or bathing? (5 years old or older) Answer Date of Assessment Author No 02/02/2020 23:00 EDNelly Ya RN * Because of a physical, mental, or emotional condition, do you have difficulty doing errands alone such as visiting a doctor's office or shopping? (15 years old or older) Answer Date of Assessment Author No 02/02/2020 23:00 EDT Nelly Felix RN documented as of this encounter Mental Status * Because of a physical, mental, or emotional condition, do you have serious difficulty concentrating, remembering, or making decisions? (5 years old or older) Answer Entry Date Author No 02/02/2020 23:00 EDNelly Ya RN documented in this encounter Medications at Time [...] 6 hours as needed for Flatulence. 07/02/2024 methadone (DOLOPHINE) 10 mg tablet Take 80 mg by mouth daily. 4 Multivitamins with Minerals tablet Take 1 Tab by mouth daily. 4 NAPROXEN SODIUM (ALEVE ORAL) Take by mouth. 07/02/20 2 4 documented as of this encounter Discharge Disposition Disposition Code Departure Means Destination Home or Self Care documented in this encounter Plan of Treatment Not on file documented as of this encounter Procedures Procedure Name Priority Date/Time Associated Diagnosis Comments MR OUTSIDE IMAGES CERVICAL SPINE Routine 05/25/2024 21:57 EST documented in this encounter Results * MR OUTSIDE IMAGES CERVICAL SPINE (05/25/2024 21:57 EST) Narrative 05/25/2024 21:57 EST This is a non-reportable exam. us Provider Unknown [employer] OTHER IMAGING ORDERABLES Final Result documented in this encounter Visit Diagnoses Not on filedocumented in this encounter Care Teams Adjunct Faculty Instructor Relationship Specialty Start Date End Date Milo Baer MD [address] [place] [phone] PCP - General Family Medicine - Primary Care 02/17/23 05/25/24 None, Provider 02/05/20 05/25/24 documented as of this encounter
--- OUTSIDE RECORDS SUMMARY | 2024-07-02 14:33 | XMS_ITS | Encounter Summary ---
Author Organization [facility] Address [address] [place] [address] Care Team Providers Care Physical Security Specialist Name Role Phone None, Provider Unavailable Unavailable Milo Baer MD Primary Care Provider [phone] Raffi Merida DO Primary Care Provider [phone] Encounter Details Date Type Department Care Team (Late st Contact Info) Description 05/01/2024 Lab Requisition [facility] Pathology & Laboratory Medicine - [facility] [address] [place] [address] Outr Resulting Lab, Provider Social History Tobacco Use Types Packs/Day Years Used Date Smoking Tobacco: Every Day Cigarettes 1 15 Smokeless Tobacco: Never Alcohol Use Standard Drinks/Week Comments Never 0 (1 standard drink = 0.6 oz pur e alcohol) AUDIT-C Answer Date Recorded Q1: How often do you have a drink containing alc ohol? Never 02/02/2020 Average Number of Drinks Not on file 020 Frequency of Binge Drinking Not on file 01/16 PHQ-2 Answer Date Recorded PHQ-2 SUBTOTAL 0 02/02/2020 Interpersonal Safety Answer Date Record ed Physically Hurt Never 02/18/2020 Verbally Threaten Not on file 02/18/2020 Sex and Gender Information Value Date Recorded Sex Assigned at Not on file Legal Sex Male 17:33 EST Gender Identity Male 05/31/2019 1:50 EST Sexual Orientation Not on file documented as of this encounter Functional Status * Are you deaf or do you have serious difficulty hearing? Answer Date of Assessment Author No 02/17/2023 16:55 Deborah Romero RN * Are you blind or do [...] 02/02/2020 23:00 EDT Nelly Felix RN * Because of a physical, mental, [...] Answer Entry Date Author No 02/02/2020 23:00 EDT Nelly Felix RN documented in this encounter Plan of Treatment Not on file documented as of this encounter Procedures Procedure Name Priority Date/Time Associated Diagnosis Comments CHLAMYDIA/N. GONORRHOEAE AMPLIFIED NUCLEIC ACID Routine 05/01/2024 12:15 EDT documented in this encounter Results * CHLAMYDIA/N. GONORRHOEAE AMPLIFIED NUCLEIC ACID (05/01/2024 12:15 EDT) Neisseria gonorrhoeae Result Negative Negative 05/02/2024 12:10 EDT [facility] Chlamydia trachomatis Result Negative Negative 05/02/2024 12:10 EDT [facility] Urine URINE / Unknown 05/01/2024 1 2:15 EDT 05/01/2024 22:12 EDT us Provider Outr Resulting Lab MICROBIOLOGY - GENER AL ORDERABLES Final Result [facility] [address] [place] [id number] documented in this encounter Visit Diagnoses Not on filedocumented in this encounter Additional Health Concerns Infection Onset Date Last Indicated Resolved Time MRSA Comment:05/24/2024 +MRSA blood cultures [facility] Pos blood 05/26/24, 05/27/24, 05/29/24, 05/30/24, 06/01/24, 06/03/24, 06/04/24, 06/05/24 - Radha DiMasi 06/08/2024 2024 06/05/2024 documented as of this encounter Care Teams Physical Security Specialist Relationship Specialty Start Date End Date Milo Baer MD [address] [place] [phone] PCP - General Family Medicine - Primary Care 02/17/23 05/25/24 Raffi Merida DO [address] [place] [phone] PCP - General Family Medicine - Primary Care 05/26/24 None, Provider 02/05/20 05/25/24 documented as of this encounter
--- OUTSIDE RECORDS SUMMARY | 2024-07-02 14:33 | XMS_ITS | Encounter Summary ---
Author Organization [facility] Address [address] [place] [address] Care Team Providers Care Remelt Worker Name Role Phone None, Provider Unavailable Unavailable Milo Baer MD Primary Care Provider [phone] Reason for Visit * Reason Comments Dental Pain Complicated dental a bscess, sinus infection.Seen by dental and ENT. Teeth tooth, one tooth dentist was unable to fully extract. That tooth is causing a lot of pain. Has been on abx X 6 months. Missed ENT appt 3 months ago. Encounter Details Date Type Department Care Team (Late st Contact Info) Description 02/17/2023 18:06 EDT - 02/17/2023 19:37 EDT Emergency [facility] Emergency Department - [address] [phone] Marlene Castellano MD [address] [place] [id number] Pain, dental (Primary Dx) Discharge Disposition: Home or Self Care Social [...] 1:50 EST Sexual Orientation Not on file COVID-19 Exposure Response Date Recorded In the last 10 days, have yo u been in contact with someone who was confirmed or suspected to have Coronavirus/COVID-19? No / Unsure 02/17/2023 16:59 EDT documented as of this encounter Last Filed Vital Signs Vital Sign Reading Time Taken Comments Blood Pressure 144/78 02/17/2023 1658 EDT Pulse 110 02/17/2023 1658 EDT Temperature 37 ??C (98.6 ??F) 02/17/2023 1658 EDT Respiratory Rate 16 02/17/2023 1658 EDT Oxygen Saturation 100% 02/17/2023 1658 EDT Inhaled Oxygen Concentration - - Weight 78 kg (172 lb) 02/17/2023 1658 EDT Height 175.3 cm (5' 9) 02/17/2023 1658 EDT Body Mass Index 25.4 02/17/2023 1658 EDT documented in this encounter Functional Status * [...] Assessment Author No 02/02/2020 23:00 EDT Nelly Felix, DAVID * Do you have difficulty dressing or bathing? (5 years old or older) Answer Date of Assessment Author No 02/02/2020 23:00 EDT Nelly Felix, DAVID * Because of a physical, mental, or [...] Nelly Felix RN documented in this encounter Discharge Instructions * Discharge Instructions* Marlene Castellano MD - 02/17/2023 19:24 EDT You were seen in the Emergency Department for dental pain and sinus pain. Please be sure to follow-up with your primary care provider within 1 week. We sent you home with 1 week of antibiotics. Please return to the Emergency Department if you develop any worsening of your symptoms, or fevers,chills, difficulty swallowing, facial swelling, or any other concerning symptoms. Thank you for coming to [facility] ED! documented in this encounter Medications at Time of Discharge methadone (DOLOPHINE) 10 mg tablet Take 80 mg by mouth daily. 07/02/2024 Multivitamins with Minerals tablet Take 1 Tab by mouth daily. 07/02/2024 NAPROXEN SODIUM (ALEVE ORAL) Take by mouth. 07/02/2024 penicillin v potassium (VEETID) 500 mg tablet Take 1 Tablet by mouth 4 times daily for 7 days. 28 Tablet 02/17/2023 02/24/2023 documented as of this encounter Ordered Prescriptions Prescription Sig Dispense Quantity Refills Last Filled Start Date End Date penicillin v potassium (VEETID) 500 mg tablet Take 1 Tablet by mouth 4 times daily for 7 days. 28 Tablet 02/17/2023 02/24/2023 documented in this encounter Discharge Disposition Disposition Code Departure Means Destination Comment s Home or Self Penitentiary documented in this encounter ED Notes * Marlene Castellano MD - 02/17/2023 1905 EDT Emergency Department Visit This documentation is recorded by Virginia Shin acting as Scribe under the direction and presence of Marlene Castellano MD. Marlene Castellano MD: I personally performed the services recorded by the scribe in my presence. I confirm the scribe's documentation has been reviewed by me to accurately and completely record my work, treatment, procedures, and medical decision making. Medical Decision Making 42-year-old male history of active IVDU presenting with ongoing dental pain for several weeks in the setting of multiple reported recent dental extractions last was 2 weeks ago at outside facility. On exam, patient is hemodynamically stable, afebrile, well-appearing. His exam is not consistent withepiglottitis, bacterial tracheitis, Gato's angina, deep space infection. No evidence of any periapical abscess. He may be developing dental infection around broken tooth. No tenderness to palpationover frontal, maxillary, or ethmoid sinuses or new discharge suggest bacterial sinusitis. Ordered for course of penicillin, instructed to follow-up with primary care provider which patient states that he has access to as well as dentist. Return precautions discussed. Discharged in stable condition. Relevant Data as of 02/17/231904Feb 17, [id number] 42-year-old male history of active IVDU, recent admission 02/02/23 for acute HAV infection p/w [LA] Relevant Data User Index [LA] Marlene Castellano MD Medical Decision Making Pain, dental: acute illness or injury Risk Prescription drug management. Final diagnoses: None Disposition: No disposition on file Chief complaint: Dental pain HPI Marcos Camejo is a 42 y.o. male with a history of IV drug use who presents to the ED for dentalpain. The patient reports he had a bad sinus infection a couple of weeks ago that he was told wasa result of a dental infection. He notes that he had 4 teeth pulled on the right side 3 weeks ago, and was placed on chlorhexidine and amoxicillin. He notes that he took the medications as instructedand finished both medications yesterday. No systemic infectious symptoms. The patient reports last using IV drugs yesterday and smokes cigarettes daily. History was provided by: Patient, EMR Records reviewed include: prior visits Patient's pertinent PMH, FH, SH were reviewed and edited as necessary. Nursing notes reviewed. A medical screening exam was performed. Physical Exam BP (!) 144/78 (BP Cuff Location: Left arm, BP Patient Position: Sitting) Pulse (!) 110 Temp 37 ??C (98.6 ??F) (Temporal) Resp 16 Ht 175.3 cm (69) Wt 78 kg (172 lb) SpO2 100% BMI 25.40 kg/m?? Physical Exam General: alert and oriented to person, place, and time. No acute distress. HEENT: mucous membranes moist. Normal phonation, tolerating secretions without difficulty. No facial swelling. No tenderness to laryngeal shake. Full range of motion of neck. No trismus. Floor of mouth is soft, tongue not raised. No tonsillar erythema or edema, uvula is midline. Poor dentition throughout, broken L upper molar without surrounding abscess CV: regular rate and rhythm, no murmurs appreciated. 2+ radial pulses bilaterally. Pulm: clear to auscultation bilaterally Abd: Normoactive bowel sounds. Non-tender, non-distended. Extremities: warm, dry, well-perfused. 2+ DP and femoral pulses bilaterally. No edema bilaterally. Neuro: pupils equal and reactive, normal speech and gait. Procedures Procedures * Liz Stapleton RN - 02/17/2023 6334 EDT BP (!) 144/78 (BP Cuff Location: Left arm, BP Patient Position: Sitting) Pulse (!) 110 Temp 37 ??C (98.6 ??F) (Temporal) Resp 16 Ht 175.3 cm (69) Wt 78 kg (172 lb) SpO2 100% BMI 25.40 kg/m?? Chief Complaint Patient presents with ??? Dental Pain Complicated dental abscess, sinus infection.Seen by dental and ENT. Teeth tooth, one tooth dentist was unable to fully extract. That tooth is causing a lot of pain. Has been on abx X 6 months. MissedENT appt 3 months ago. documented in this encounter Plan of Treatment Not on file documented as of this encounter Visit Diagnoses Diagnosis Pain, dental- Primary Unspecified disorder of the teeth and supporting structures documented in this encounter Care Teams Remelt Worker Relationship Specialty Start Date End Date Milo Baer MD [address] [place] [phone] PCP - General Family Medicine - Primary Care 02/17/23 05/25/24 None, Provider 02/05/20 05/25/24 documented as of this encounter
--- OUTSIDE RECORDS SUMMARY | 2024-07-02 14:33 | XMS_ITS | Encounter Summary ---
Author Organization [facility] Address [address] [place] [address] Care Team Providers Care Adz Worker Name Role Phone None, Provider Unavailable Unavailable Milo Baer MD Primary Care Provider [phone] Raffi Merida DO Primary Care Provider [phone] Encounter Details Date Type Department Care Team (Late st Contact Info) Description 07/15/2023 Lab Requisition [facility] Pathology & Laboratory Medicine - [facility] [address] [place] [address] Outr Resulting Lab, Provider Social History Tobacco [...] No 02/02/2020 23:00 EDNelly Ya RN * Do you have serious difficulty walking or climbing stairs? (5 years old or older) Answer Date of Assessment Author No 02/02/2020 23:00 Nelly Marcum RN * Do you have difficulty dressing or bathing? (5 years old or older) Answer Date of Assessment Author No 02/02/2020 23:00 EDNelly Ya RN * Because of a physical, mental, or emotional condition, do you have difficulty doing errands alone such as visiting a doctor's office or shopping? (15 years old or older) Answer Date of Assessment Author No 02/02/2020 23:00 Nelly Marcum RN documented as of this encounter Mental Status * Because of a physical, mental, or emotional condition, do you have serious difficulty concentrating, remembering, or making decisions? (5 years old or older) Answer Entry Date Author No 02/02/2020 23:00 Nelly Marcum RN documented in this encounter Plan of Treatment Not on file documented as of this encounter Procedures Procedure Name Priority Date/Time Associated Diagnosis Comments HIV 1/2 ANTIGEN AND ANTIBODY, 4TH GENERATION Routine 07/15/2023 9:50 EST documented in this encounter Results * HIV 1/2 ANTIGEN AND ANTIBODY, 4TH GENERATION (07/15/2023 9:50 EST) HIV 1 and 2 Antibody/p24 Antigen, 4th Generation Negative Negative 07/15/2023 18:57 EST [facility] Comment:If acute HIV-1 infec tion is suspected in a high risk patient, submit plasma specimen for HIV-1 RNA quantitation test. Blood VENOUS BLOOD / Unknown 07/15/2023 9:50 EST 07/15/2023 17:04 EST Narrative [facility] - 07/15/2023 18:57 EST Fourth Generation assay performed on the Siemens NGIaur XPT. us Provider Outr Resulting Lab IMMUNOLOGY AND SEROL OGY ORDERABLES Final Result [facility] [address] [place] [address] documented in this encounter Visit Diagnoses Not on filedocumented in this encounter Additional Health Concerns Infection Onset Date Last Indicated Resolved Time MRSA Comment:05/24/2024 +MRSA blood cultures [facility] Pos blood 05/26/24, 05/27/24, 05/29/24, 05/30/24, 06/01/24, 06/03/24, 06/04/24, 06/05/24 - Radha DiMasi 06/08/2024 2024 06/05/2024 documented as of this encounter Care Teams Adz Worker Relationship Specialty Start Date End Date Milo Baer MD [address] [place] [phone] PCP - General Family Medicine - Primary Care 02/17/23 05/25/24 Raffi Merida DO [address] [place] [phone] PCP - General Family Medicine - Primary Care 05/26/24 None, Provider 02/05/20 05/25/24 documented as of this encounter
--- OUTSIDE RECORDS SUMMARY | 2024-07-02 14:33 | XMS_ITS | Encounter Summary ---
Author Organization [facility] Address [address] [place] [address] Care Team Providers Care Type Inspector Name Role Phone None, Provider Unavailable Unavailable Milo Baer MD Primary Care Provider [phone] Encounter Details Date Type Department Care Team (Latest Contact Info) Description 05/25/2024 Travel Social History Tobacco Use Types Packs/Day Years Used Date Smoking Tobacco: Every Day Cigarettes 1 15 Smokeless Tobacco: Never Alcohol Use Standard Drinks/Week Comments Never 0 (1 standard drink = 0.6 oz pur e alcohol) [facility] Utilities Answer Date Recorded In the past 12 months has [employer] electric, gas, oil, or water company threatened [...] any time in the past 12 m [facility], were you homeless or living in a [place] health care facility (including now)? No 2024 Interpersonal Safety Answer [...] Date of Assessment Author No 02/17/2023 16:55 AMYT Deborah Stapleton RN * Are you blind or do you have serious difficulty seeing, even when wearing glasses? Answer Date of Assessment Author No 02/02/2020 23:00 Nelly Marcum RN * Do you have serious difficulty walking or climbing stairs? (5 years old or older) Answer Date of Assessment Author No 02/02/2020 23:00 Nelly Marcum RN * Do you have difficulty dressing or bathing? (5 years old or older) Answer Date of Assessment Author No 02/02/2020 23:00 Nelly Marcum RN * Because of a physical, mental, [...] Entry Date Author No 02/02/2020 23:00 Nelly Marcum, RN documented in this encounter Plan of Treatment Not on file documented as of this encounter Visit Diagnoses Not on filedocumented in this encounter Care Teams Type Inspector Relationship Specialty Start Date End Date Milo Baer MD [address] [place] [phone] PCP - General Family Medicine - Primary Care 02/17/23 05/25/24 None, Provider 02/05/20 05/25/24 documented as of this encounter
--- OUTSIDE RECORDS SUMMARY | 2024-07-02 14:33 | XMS_ITS | Encounter Summary ---
Author Organization [facility] Address [address] [place] [address] Care Team Providers Care Channeler Runner Name Role Phone None, Provider Primary Care Provider Unavailabl e Reason for Visit * Reason Comments Abdominal Pain RLQ abdominal pain. Neg covid test last night. Hxof liver falure * Auth/Cert Specialty Diagnoses / Procedures Referred By Contac t Referred To Contact Diagnoses Acute hepatitis Hepatitis C Right upper quadrant abdominal pain Referral ID Status Reason Start Date Expiration Date Visits Re quested Visits Authorized [id number] 1 1 Encounter Details Date Type Department Care Team (Late st Contact Info) Description 02/02/2020 15:19 EDT - 02/03/2020 11:51 EDT Hospital Encounter [facility] General Medicine Unit [address] [place], [place] [address] Mayito Singh MD [address] [place] [address] [phone] Mack Kendrick DO [address] [phone] Charlie Crook MD [address] [place] [address] [phone] Tobias Dash MD [address] [phone] Right upper quadrant abdominal pain (Primary Dx); Acute hepatitis; Jaundice; Opiate abuse, continuous (HCC-CMS); IVDU (intravenous drug user); Acute hepatitis A Discharge Disposition: Left Against Medical Advice Social History Tobacco Use [...] Answer Date Recorded PHQ-2 SUBTOTAL 0 02/02/2020 Sex and Gender Information Value Date Recorded Sex Assigned at Not on file Legal Sex Male 17:33 EST Gender Identity Male 05/31/2019 1:50 EST Sexual Orientation Not on file documented as of this encounter Last Filed Vital Signs Vital Sign Reading Time Taken Comments Blood Pressure 132/77 02/03/2020 1057 EDT Pulse 58 02/03/2020 0500 EDT Temperature 36.2 ??C (97.2 ??F) 02/03/2020 1057 EDT Respiratory Rate 20 02/03/2020 1057 EDT Oxygen Saturation 100% 02/03/2020 1057 EDT Inhaled Oxygen Concentration - - Weight 77.1 kg (170 lb) 02/02/2020 1302 EDT Height 175.3 cm (5' 9) 02/02/2020 1302 EDT Body Mass Index 25.1 02/02/2020 1302 EDT documented in this encounter Functional Status * Are you deaf or do you have serious difficulty hearing? Answer Date of Assessment Author No 02/02/2020 23:00 EDT Nelly Felix RN * Are you blind or do [...] Felix RN documented in this encounter Discharge Summaries * Tobias Dash MD - 02/03/2020 0034 EDT Medicine Discharge Summary Primary Care Provider: Provider Unknown Attending Physician: Tobias Dash MD Admit Date: 02/02/2020 Discharge Date: 02/03/2020 Disposition: Home or self care Reason for Admission: Jaundice, hepatitis Principal/Final Diagnosis: 1. Acute hepatitis A 2. Opioid use/polysustance use disorder, active. Additional Problems Managed in the Hospital Active Hospital Problems Diagnosis Date Noted ??? *Acute hepatitis A 02/02/2020 ??? Jaundice 02/02/2020 ??? Right upper quadrant abdominal pain 02/02/2020 Resolved Hospital Problems No resolved problems to display. Principal Procedure: None Secondary Procedures: none Hospital Course: Marcos Camejo is a 39 y.o. male with a PMHx of opiate use disorder (current daily IV heroin use) and anxiety who is here for fatigue, RUQ pain, and jaundice. ?? Per records, pt was seen 01/31 at [facility] where there was concern for liver failure and sepsis. Treatedwith LR, vancomycin, cefepime for concern of intra-abdominal infection give fever and leukopenia. [facility] lab called per hepatitis serologies. Lab states that Hep C antibody was negative, the core has been sent out. Hep B surface antigen was negative. Hep A antibody positive, Hep A IGM positive. Acute hepatitis A infection With positive serologies at [facility], elevated hepatic enzymes and preserved hepatic synthetic function, consistent with acute Hepatitis A infection. Alternate diagnoses included liver abscess given liver lesions seen on OSH CT. RUQ ultrasound at [facility] showed a benign-appearing R lobe lesion, suspicion for portal hypertension, no evidence cholecystitis or choledocholithiasis. While admitted, no signs of acute infection. GI consulted, advised this episode likely to resolve without intervention. AST/ALT/bili downtrending on second set of labs. Unfortunately pt decided to leave the hospital AMA, stating understanding of risk of worsening acute hepatitis with possible complications. [facility] put [facility] for patient outreach to establish a PCP. Opioid use disorder With current every day IV heroin use for ~11 months per pt and mother. On admission, pt expressed some desire to initiate suboxone while inpatient. On 02/02 AM, pt disconnected own IV and left floor on multiple occasions despite instruction to not do so and thereafter showed signs of sedation/intoxication. Unfortunately, pt decided to leave the hospital AMA without being induced on suboxone. Condition at Discharge: Fair Clinical Issues Needing Follow-up: -- Follow up repeat acute viral panel from this hospitalization, monitor CBC for possible aplastic anemia, other infectious process related to IVDU. -- Recommend PCP follow up of Hep A as he may have clinical relapse -- Recommend offering suboxone induction if pt amenable Allergies Allergen Reactions ??? Penicillins Hives There is no immunization history on file for this patient. Results Pending at Discharge Test results still pending from this admission Procedure Component Value Units Date/Time Acute Hepatitis Profile [[id number]] Collected: 02/02/20 1638 Lab Status: In process Specimen: Blood, Venous Updated: 02/02/201941 POCT Urine Clinitek (DIPSTICK) [[id number]] Collected: 02/02/20 1527 Lab Status: In process Specimen: Urine, Clean Catch Updated: 02/02/20 1631 Narrative: The following orders were created for panel order POCT URINE CLINITEK (DIPSTICK) - DOES NOT REFLEX. Procedure Abnormality Status --------- ------ POCT URINE DIPSTICK, CLI...[[id number]] POCT CSN BARCODE URINE D...[[id number]] Final result Please view results for these tests on the individual orders. Discharge Handoff Communication Contact was not made at the time of discharge. Called [facility] and left pt name and number with office with recommendation to reach out to pt to establish primary care. Discharge Summary Completed By: Nikki Li MD Family Medicine, PGY-1 Pager: [phone] 02/03/2020 16:02 I have interviewed and examined the patient on the date of this discharge, discussed care with the patient, RN, and [facility] residents, and I agree with the resident's documented findings and plan of care. Tobias Dash MD Family Medicine Service Attending Physician documented in this encounter Medications at Time of Discharge Multivitamins with Minerals tablet Take 1 Tab by mouth daily. 07/02/2024 NAPROXEN SODIUM (ALEVE ORAL) Take by mouth. 07/02/2024 documented as of this encounter Discharge Disposition Disposition Code Departure Means Destination Left Against Medical Advice Home documented in this encounter H&P Notes * Charlie Crook MD - 02/02/2020 2131 EDT Medicine Admission History & Physical Service Date: 02/02/2020 Admit Date: 02/02/2020 15:19 Primary Care Provider: Provider Unknown Chief Complaint: abd pain, jaundice, fatigue HPI Marcos Camejo is a 39 y.o. male with a PMHx of opiate use disorder (current daily IV heroin use, last use yesterday 01/31) and anxiety who is here for fatigue, RUQ pain, and jaundice in the setting of dx of Hep C at [facility] yesterday and leaving AMA from [facility] this morning. In ED: [facility] Labs notable for WBC 3, RBC 4, Hgb 11, HCT 35, plt 242. Lytes wnl. Albumin 3.0. Alk phos 174, AST 1437, ALT 2522, Tbil 4.6. Lipase 71. INR 1.2. US abd without evidence of ascites or cholecystitis. Treated in ED with clonidine 0.2mg and 1L LR. Per outside records, under External Notes, patient was seen 01/31 at [facility] and there was great concern about his condition. He met sepsis criteria and was felt to be in liver failure. Records state while waiting to be admitted, patient elected to leave AMA. Patient was treated at [facility] with LR, vancomycin, cefepime for concern for intra-abdominal infection given increased temp and leukopenia. Labs at [facility] were notable for Tbili 6.3, Alk Phos 219, LDH 1128, CRP 14, AST 2002, ALT 2958, INR 1.4. WBC 3. Pos for cocaine, marijuana, opiates. Imaging at [facility] showed bilateral groundglass opacities on CXR, CT abd showing perioportal edema, gallbladder distenion, no ductal dilation, and non specific liver lesions. Called [facility] to inquire re hepatitis serologies. Lab states that Hep C antibody was negative, the core has been sent out. Hep B surface antigen was negative. Hep A antibody positive, Hep A IGM positive. Tonight in the ED, patient states that he started feeling unwell about a couple days ago. He alsonoticed his skin and eyes looked a little yellow. His mom, at bedside, noted that he looked yellow yesterday. His symptoms have been non- specific and include fatigue and RUQ pain. He has also been constipated. 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 Given he was feeling so unwell, he went to [facility]. Patient reports he was told he has liver failure and Hep C. He states he left AMA because he wanted to be admitted to [facility] instead. Therefore, he presented here today for that reason. Patient reports daily IVDU, opiates. He also uses cocaine daily at this point. He has been using IVdrugs daily for 10months. He has had periods of abstinence in the past and states he is interested in getting on suboxone or methadone now. He also notes he used to use methamphetamine regularly but not at this time. He is not a drinker. He smokes 1ppd. His last IVDU was yesterday 01/31. He feels he is already starting to withdraw. Marcos reports he does not have any significant medical history and he does not take any medications. ROS pos for RUQ pain, fatigue, juandice, difficulty taking a deep breath, nausea/vomiting, fever. Neg for diarrhea, cough, SHU. Review of Systems A complete 10 point ROS was performed and pertinent positive and negative findings listed in HPI, otherwise negative. Past Medical History: Diagnosis Date ??? Anxiety ??? IVDU (intravenous drug user) Past Surgical History: Procedure Laterality Date ??? HERNIA REPAIR Social History Tobacco Use ??? Smoking status: Current Every Day Smoker Packs/day: 1.00 Types: Cigarettes ??? Smokeless tobacco: Never Used Substance Use Topics ??? Alcohol use: Never Frequency: Never No family history of hepatitis No current outpatient medications on file. Allergies Allergen Reactions ??? Penicillins Hives Objective Vitals Temp: [36.7 ??C (98.1 ??F)-36.9 ??C (98.4 ??F)] (), Heart Rate: -- (), Pulse: [73-96] (), Resp: [14-16] (), BP: (118-129)/(79-82) (), SpO2: [96 %-98 %] (), Numeric Pain Level (Scale 1-10): 7 Weight: Weight : 77.1 kg (170 lb) Body mass index is 25.1 kg/m??. Physical Exam Physical Exam Constitutional: He is oriented to person, place, and time. He appears well- developed and well-nourished. Heavily tattooed gentleman lying in ED, eyes closed, appears fatigued and uncomfortable. HENT: Head: Normocephalic. Eyes: Pupils are equal, round, and reactive to light. Mild scleral icterus present Neck: Normal range of motion. Cardiovascular: Normal rate and regular rhythm. No murmur heard. Pulmonary/Chest: Effort normal. No respiratory distress. He has no wheezes. He has no rales. Abdominal: Soft. Tender to palpation of RUQ only. Hepatomegaly extending approx 4cm below costal margine. Musculoskeletal: He exhibits no edema. Neurological: He is alert and oriented to person, place, and time. Skin: Skin is warm and dry. Psychiatric: Irritable, quiet, does not say much, but appropriate overall. Pressure Ulcer Present on admission? No Labs I have personally reviewed Recent Labs 02/02/20 1638 WBC 3.45* RBC 4.05* HGB 11.8* HCT 35.2* MCV 87 MCH 29.1 MCHC 33.5 PLT 242 NEUTROABS 2.34 Recent Labs 02/02/20 1638 NA 138 K 4.0 CL 103 CO2 28 BUN 10 CREATININE 0.75 CALCIUM 8.6 LABALBU 3.0* 3.0* Recent Labs 02/02/20 1638 PROTIME 13.8* INR 1.2* PTT 35 Recent Labs 02/02/20 1638 TBIL 4.6* 4.6* ALKPHOS 174* 174* AST 1,437* 1,437* ALT 2,522* 2,522* LIPASE 71 Imaging US Abdomen limited 02/01 IMPRESSION 1. Preserved hepatopetal flow in the main portal vein. Slight enlargement of the main portal vein to 17 mm is a nonspecific sign, but can be seen in portal hypertension. 2. Minimal enlargement of the common bile duct is of uncertain clinical significance. 3. No evidence of cholecystitis. Assessment Marcos Camejo is a 39 y.o. male with a PMHx significant for substance use disorder including IVdrug use and anxiety who presents with fatigue, juandice 2/2 acute Hepatitis A infection per outside records. Plan Acute Hep A: per phonecall with [facility] lab, patients Hep A IgM was positive 02/01. Of note, patient believes his diagnosis is Hep C, will need to clarify with patient and education re Hep A diagnosis, treatment, prognosis. - supportive care; mIVF - f/u hepatitis serologies - consult GI in am - daily hepatic fx labs - consider any appropriate vaccinations Opiate use disorder: is a daily IVD user and used last over 24 hours ago, is starting to withdraw now. Patient reports that he would like to start suboxone or methdone during this hospitalization. I do not want to initiate that tonight without [facility] assistance given they have a well-developed protocol. Therefore, will cover with as little opiates as possible tonight. - should consult [facility]/pschiatry tomorrow for ?suboxone initiation - for tonight will cover with PO morphine IR 15mg Q4 prn. Please d/c this as possible. VTE Prophylaxis Pharmacologic Prophylaxis: Heparin 5000 units SQ Bid Code: full, discussed with patient Discharge Plan Home or self care Consults GI Admission Status Inpatient. Anticipated duration of hospitalization is greater than two midnights due to acute hepatitis A. Discussed with Dr. Armaan Philip MD 02/02/2020 22:39 I saw and examined the patient 02/02/2020. I have discussed the case with Dr. Philip and agree with the findings and plans documented above. Charlie Crook MD, 02/03/2020, 2:27 Attending Physician Internal Medicine Night Hospitalist documented in this encounter Consult Notes * Shante Colorado MD - 02/03/2020 0953 EDT Gastroenterology & Hepatology Consult Note The Gastroenterology service was consulted to see Marcos Camejo for abnormal liver test, abdominal pain Requesting Physician: Tobias Dash MD HPI: 39 y.o.male,active IVDU who is currently admitted after presenting from [facility] where he was found to have abnormal biochemical liver test concerning for acute liver injury after presenting with a one-day history of generalized malaise, fever, jaundice,dark urine and abdominal pain. Initial work-up showed ALT >1600, AST > 2600, alk phos of 219, INR of 1.4 and elevated T bilirubin> 5 predominant direct and lipase 71.Chart review was noted for patient with T-max of 100 on initial presentation and based on his history of IV drug use there was concern for possible infective endocarditis necessitating initiation of broad-spectrum antibiotics. Patient is currently off antibiotics and has remained afebrile since presenting here. Urine drug screen was positive for opioids cocaine and marijuana with patient admitting use on the day of presentation and daily for the last several months. As part of his work-up CT abdomen pelvis showed mild periportal edema and less than 1 cm liver lesions thought to be benign, with distended gallbladder. Follow up ultrasound on presentation was negative for biliary obstruction or cholangiopathy or evidence of acute cholecystitis. Acute viral panel from[facility] reportedly was showed positive anti-HAV IgM. Patient denies any history of abnormal liver test in the past or hep C denies any family history of liver disease. Patient denies any new medications including herbal medications or recent travel.. Patient still complaining of right upper quadrant abdominal pain we will repeat labs this morning showing improvement in his abdominal by biochemical liver tests with AST now greater than 1900 and ALT 990, alk phos 219 with a total bilirubin of 3.3, INR 1.1. ROS: Full review of systems was negative except as detailed above. Past Medical History: Diagnosis Date ??? Anxiety ??? IVDU (intravenous drug user) Past Surgical History: Procedure Laterality Date ??? HERNIA REPAIR Current Facility-Administered Medications: heparin injection 5,000 Units subcutaneous Q12H lactated ringers (LR) infusion intravenous CONTINUOUS lidocaine (PF) 10 mg/mL (1 %) injection 2 mg intradermal PRN polyethylene glycol 3350 (MIRALAX) packet 17 g oral Daily PRN No medications prior to admission. Allergies Allergen Reactions ??? Penicillins Hives Social History Socioeconomic History ??? Marital status: Spouse name: Not on file ??? Number of children: Not on file ??? Years of education: Not on file ??? Highest education level: Not on file Occupational History ??? Not on file Social Needs ??? Financial resource strain: Not on file ??? Food insecurity: Worry: Not on file Inability: Not on file ??? Transportation needs: Medical: Not on file Non-medical: Not on file Tobacco Use ??? Smoking status: Current Every Day Smoker Packs/day: 1.00 Types: Cigarettes ??? Smokeless tobacco: Never Used Substance and Sexual Activity ??? Alcohol use: Never Frequency: Never ??? Drug use: Yes Types: Cocaine Comment: heroin ??? Sexual activity: Not on file Lifestyle ??? Physical activity: Days per week: Not on file Minutes per session: Not on file ??? Stress: Not on file Relationships ??? Social connections: Talks on phone: Not on file Gets together: Not on file Attends advent service: Not on file Active member of club or organization: Not on file Attends meetings of clubs or organizations: Not on file Relationship status: Not on file ??? Intimate partner violence: Fear of current or ex partner: Not on file Emotionally abused: Not on file Physically abused: Not on file Forced sexual activity: Not on file Other Topics Concern ??? Not on file Social History Narrative ??? Not on file No family history on file. PE: BP 105/59 (BP Cuff Location: Right arm, BP Patient Position: Lying left side) Pulse 58 Temp 36.9 ??C (98.4 ??F) (Tympanic) Resp 16 Ht 175.3 cm (69) Wt 77.1 kg (170 lb) SpO2 94% BMI 25.10 kg/m?? Gen: Well, NAD, A+Ox3, normal color HEENT: Mild sclerae icterus, MMM CV: s1s2 no MRG Lungs: CTA bilaterally Neuro: no gross motor or sensory deficits Extrem: no VIKTORIA Skin: No rash+ jaundice GI: non-distended; soft, +tenderness RUQ, no rebound, BS+ Laboratory: Labs reviewed, pertinent results are as follows: Recent Labs 02/02/20 1638 02/03/20 0537 HGB 11.8* 12.2* HCT 35.2* 36.0* MCV 87 86 PLT 242 228 WBC 3.45* 4.03 Recent Labs 02/02/20 1638 02/03/20 0536 TBIL 4.6* 4.6* 3.3* ALKPHOS 174* 174* 219* AST 1,437* 1,437* 990* ALT 2,522* 2,522* 1,926* LIPASE 71 -- Recent Labs 02/02/20 1638 02/03/20 0536 PROTIME 13.8* 12.4 INR 1.2* 1.1 PTT 35 -- Recent Labs 02/02/20 1638 02/03/20 0536 CREATININE 0.75 0.75 BUN 10 10 NA 138 135* K 4.0 3.8 CL 103 104 CO2 28 25 Imaging: US 02/02 IMPRESSION 1. Preserved hepatopetal flow in the main portal vein. Slight enlargement of the main portal vein to 17 mm is a nonspecific sign, but can be seen in portal hypertension. 2. Minimal enlargement of the common bile duct is of uncertain clinical significance. 3. No evidence of cholecystitis. ?? Impression: 39 y.o. male, active IV drug user(heroin,cocaine,meth) who is admitted with a 1 day history of generalized malaise,fever, jaundice,dark urine, and right upper quadrant abdominal pain with initial blood work consistent with acute liver injury. Based on his clinical presentation, risk factor(IVDU) and report +anti IgM HAV the likely cause of his acute liver injury is acute hepatitis A vital infection. Cocaine use could also be a contributing factor. Clinically and based on his recent blood work, the patient is heading in the right direction with normalization of his coagulopathy and downtrending amino transferases Recommendations: -We will follow-up repeat acute viral panel sent by primary team. -We recommend testing for COVID-19 as part of his workup -recommend close follow up with his PCP as hepatitis A viral infections can presents with multiple clinical or biochemical relapses -Patient does not need a follow-up with specialty clinic as hep A virus infection improve within weeks to months without intervention -Recommend primary team. Contact hospital certified medicine aide to contact Department of Health as it may is a reportable disease to ensure household members received appropriate immunizations. -Referral to drug rehabilitation programs per primary team. Discussed with Dr. Gagan COLORADO MD Gastroenterology & Hepatology 02/03/2020 9:53 Cosigned by Chang Ugalde MD at 02/03/2020 14:49 EDT documented in this encounter ED Notes * Pepe Bruce RN - 02/02/2020 2257 EDT Patient sleeping and woken up prior to transport to floor. Mom updated on plan of care. Patient drowsy with no acute distress at this time. * Pepe Bruce RN - 02/02/2020 2210 EDT Patient reporting all over body aches and sweating. Reports he thinks he is starting to withdrawal from heroin and cocaine. MD aware, reports will order ativan. * Pepe Bruce RN - 02/02/2020 2146 EDT covid test results sent from [facility]. Patient result negative. Results scanned into chart. * Pepe Bruce RN - 02/02/20202032 EDT Patient refusing covid test reporting he had it done [place] [facility] covid result not sent withchart. [place] to attempt further result retrieval from [facility]. * Pepe Bruce RN - 02/02/20202014 EDT Patient reports feeling shaky and sweaty and feels like he is going to withdrawal from cocaine and heroin. aware reports will order clonidine. * Clarissa Machado RN - 02/02/20201917 EDT Ultrasound at bedside. * Mack Kendrick DO - 02/02/2020 175 EDT This patient received an evaluation and medical screening exam for emergent medical conditions at the [facility] on 02/02/2020. This note was created and authored by BRYAN MACIAS MD working under the supervision of Mack Kendrick DO. TAMIKO Camejo is a 39 y.o. male with a history significant for polysubstance abuse, diagnosed yesterday with hepatitis C who presents to the ED for 3 days of right-sided abdominal pain, constipation, and feeling unwell. The patient reports that 3 days ago he began to feel weak and unwell, with increasing right-sided abdominal pain. Yesterday, he reported a subjective fever and decided to present to [facility] where work-up revealed a new diagnosis of hepatitis C, significant transaminitis, jaundice, hyperbilirubinemia, and he was admitted for treatment. Today, he left AGAINST MEDICAL ADVICE due to a not being treated well . He continued to feel unwell at home, and decided to present to our hospital for further evaluation and treatment. He denies nausea and vomiting, palpitations. He denies abdominal distention, however he does reportthat he feels bloated . His last bowel movement was this morning, he describes it as pale in color. The patient has a history of polysubstance abuse, and endorses daily heroin and cocaine use, last used yesterday. He also reports a prior longstanding history of methamphetamine use, but stopped 2 months ago. History was provided by: Patient Patient's pertinent PMH, FH, SH were reviewed and updated PRN. ROS A 10-point review of systems was performed. The patient answered negative to all questions with theexceptions of those explicitly detailed as positives in the HPI. Pertinent negatives are also explicitly stated. Physical Exam Vital Signs Vitals Reassessment?: Yes Temp: 36.9 ??C (98.4 ??F) Temp src: Temporal Pulse: 96 Resp: 16 SpO2: 98 % BP: 129/82 BP Device: BP Machine BP Patient Position: Sitting BP Cuff Location: Left arm Nursing notes and vital signs were reviewed. Constitutional: Fatigued appearing, in no acute distress. HEENT: PEERL, EOMI, clear conjunctivae. Mild scleral icterus. Mouth: Moist oral mucosa without apparent lesions Neck: Full ROM, no cervical LAD Heart: RRR, appears well perfused Lungs: No audible airway noises. Bilateral chest rise. No respiratory distress or accessory muscle use. Abdomen: Mildly tender on the left side, very tender in the right upper quadrant with guarding. Moderately tender in the right lower quadrant. The abdomen is nondistended and not tympanitic. Skin: No overt rashes or lesions on exposed skin. Multiple tattoos. MSK: Moving extremities spontaneously, warm, radial/DP/PT pulses 2+ b/l. Neuro: CN 3, 4, 6, 7 evaluated and intact. Normal speech, strength and sensation to light touch wnlin UE/LE/b/l. Results Laboratory results independently reviewed, significant for: Severe transaminitis with ALT 2500, [id number]. Hyperbilirubinemia with bilirubin total 4.6, conjugated 1.7, unconjugated 0.9 with a delta bilirubin of 2.0. Electrolytes within normal limits. Lipase normal. Elevated alkaline phosphatase of 174. Mild leukopenia with a white blood cell count of 3.45, mild anemia with a hematocrit 35.2. Imaging obtained was reviewed and independently interpreted: Limited abdominal radiology ultrasoundshows mild distention of the gallbladder, mild distention of the common bile duct, no evidence of cholecystitis. I, ED RESIDENT, BRYAN MACIAS MD, performed the limited Abdomen Bedside Ultrasound: Findings includeno ascites or free fluid visible in the abdomen. Mildly distended gallbladder without gallbladder wall thickening, no common bile duct dilation, no pericholecystic fluid. Study performed and images reviewed and interpreted under the supervision of ED attending, Mack Kendrick DO. Please see formal report in the [facility] Images section. Images saved in PACS. Procedures Procedures Medical Decision Making Marcos Camejo is a 39 y.o. male with history significant for polysubstance abuse, current heroin and cocaine use, who presents to the ED for right abdominal pain. Differential diagnosis on arrival includes but is not limited to acute hepatitis, cholecystitis, portal vein thrombosis, bowel obstruction. Plan of care includes obtaining lab work and imaging from [facility], bedside [id number] E fastand biliary study, CBC, CMP, lipase, biliary labs. Patient arrives hemodynamically stable and afebrile, but is endorsing moderate abdominal pain. There is no evidence of distention at this time. Concern for bowel obstruction is low due to recent bowel movement this morning. IV access obtained and patient provided with 1 L lactated Ringer's, lab work sent. Patient beginning to exhibit signs of opiate withdrawal approximately 5 hours into his hospital stay, he was provided with 0.2 mg clonidine p.o. Lab work significant findings as above consistent with acute hepatitis, acute liver injury. The case was discussed with the admitting hospitalist as well as the gastroenterology service, and they were agreeable to admission with plans for a GI visit tomorrow and to complete the hepatitis work-up. The patient was agreeable to admission. ED Attending's Supervisory Statement Aroldo Johnson Daniel J, DO, performed a history and exam of this patient and discussed the case with the resident. I have reviewed and edited this note, and the documentation is consistent with my findings, assessment, and plan. I fully participated in the medical decision making. Marcos Camejo is a 39 y.o. male with PMH including polysubstance abuse, diagnosed yesterday with hepatitis C, who presents to the ED for evaluation of right-sided abdominal pain, constipation, and malaise starting three days ago. He reports that he presented to [facility] yesterday after developing afever, where his work-up revealed hepatitis C, significant transaminitis, jaundice, and hyperbilirubinemia; he was admitted for treatment. He states that he left AMA this morning as he felt that he was not being treated well. He reports that he continued feeling unwell at home today and presents to the ED here for further evaluation and treatment. He endorses accompanying ppoawz-[id number] emesis. He notes that his last heroin and cocaine use was yesterday. Patient's labs vastly unchanged from [facility], not actively vomiting H&H stable no fever. The ED resident discussed the case with the GI fellow who request the patient be admitted to the hospital to be further observed for his acute hepatitis C vs A. Final pathology results pending from [facility] lab. I, ED ATTENDING, Mack Kendrick DO, attest to the limited Abdomen Bedside Ultrasound: I agree with the resident's findings, as noted above. I was present for and supervised the weller and critical portions of the procedure. Images reviewed and independently interpreted by myself. I agree with the findings noted. Please see formal report in the [facility] Images section. Images saved in PACS. This documentation is recorded by Ruth Germain acting as Scribe under the direction and presence of Mack Kendrick DO. Mack Kendrick DO: I personally performed the services recorded by the scribe in my presence. I confirm the scribe's documentation has been reviewed by me to accurately and completely record my work, treatment, procedures, and medical decision making. Clinical Impression Final diagnoses: Right upper quadrant abdominal pain Acute hepatitis Disposition Upon departure from the Emergency Department, the patient's pain seemed to be 0 on a zero to ten scale. Condition at departure from the Emergency Department: Improved Disposition decisions were made weighing risks and benefits of hospitalization vs. outpatient treatment, the risk for further decompensation, and the patient's wishes. Admitted * Pepe Bruce RN - 02/02/2020 1933 EDT Patient reports he was admitted last night to [facility] for liver failure and hep c. Reports he left amathis morning because he wasn't getting the care he wanted and came here. Reports constipation and RUQ pain that radiates towards belly button. Denies urinary complaints. Denies nausea/vomiting. documented in this encounter Miscellaneous Notes * Plan of Care - Raquel Wells RN - 02/03/2020 1151 EDT Problem: Daily Care Plan Goals Goal: Care Plan Documentation Flowsheets (Taken 02/03/2020 1234) Area of Focus: Discharge Plan Goal This Shift: pt discharged AMA today Note: Data: Assumed care of pt at 0700. Pt sleeping at start of shift. History of IVDU. At 0800 it was observed that pt had disconnected infusing IV fluids and gone in to the bathroom. Pt was in bathroom for approximately 30 minutes, but responsive to RN and charge master specialist knocking on the door. Upon return tobed, pt was very drowsy and difficult to wake. Pt inquired with VAT CLEANER about leaving the unit with a family member upon return from a procedure at 1057. At 1114 it was observed that pt had once again disconnected infusing IV fluids and left the unit without checking out with nurse's station tombstone erector. Action: Provided care as ordered, including administration of medications (see eMAR). Assessment asdocumented. Provided education regarding IV infusion and instructed pt not to disconnect PIV infusion. Notified MD of observations of pt behavior on the unit as documented in the flow sheeet. Response: Medical team met with pt to review hospital and unit policies and procedures. Pt expressed desire to leave and was discharged AMA. RAQUEL WELLS RN 02/03/2020 12:36 * Plan of Care - Jordyn Felix RN - 02/03/2020 0342 EDT Problem: Daily Care Plan Goals Goal: Care Plan Documentation Flowsheets (Taken 02/03/2020 0333) Area of Focus: Pain/ Comfort Goal This Shift: patient 's pain will be adequately managed. Note: D : Patient came with RUQ pain rated 7/10, he got lorazepam at ED he was somnolent when He got here, able to open his eyes to touch. A : Patient had pain med per eMAR, the fluid IV is running , he is breathing unlabored, his call light is within reach. R : patient is sleeping soundly, no grimaces, or moaning, we are monitoring him closely. documented in this encounter Plan of Treatment Pending Results Name Type Priority Associated Diagnoses Date /Time POCT URINE CLINITEK (DIPSTICK) - DOES NOT REFLEX Lab STAT 15:27 EDT documented as of this encounter Procedures Procedure Name Priority Date/Time Associated Diagnosis Comments CT ABDOMEN (ONLY) W CONTRAST Routine 02/03/2020 10:49 EDT COMPLETE BLOOD COUNT Routine 02/03/2020 5:37 EDT PROTIME Routine 02/03/2020 5:36 EDT BUN Routine 02/03/2020 5:36 EDT ALT Routine 02/03/2020 5:36 EDT AST Routine 02/03/2020 5:36 EDT ALKALINE PHOSPHATASE Routine 02/03/2020 5:36 EDT CREATININE Routine 02/03/2020 5:36 EDT BILIRUBIN, TOTAL Routine 02/03/2020 5:36 EDT ELECTROLYTES Routine 02/03/2020 5:36 EDT US ABDOMEN LIMITED STAT 02/02/2020 19 :32 EDT DIFFERENTIAL, AUTOMATED MANUAL Today 02/02/2020 16:38 EDT ACUTE HEPATITIS PROFILE Add-On 02/02/2020 16:38 EDT HOLD GREEN TOP Routine 02/02/2020 16:38 EDT EXTRA BLOOD DRAW (RAINBOW) Routine 02/02/2020 16:38 EDT PTT STAT 02/02/2020 16:38 EDT PROTIME STAT 02/02/2020 16:38 EDT COMPLETE BLOOD COUNT AND DIFFERENTIAL STAT 02/02/2020 16:38 EDT LIPASE STAT 02/02/2020 16:38 EDT LDH STAT Add-on 02/02/2020 16:38 EDT HEPATIC FUNCTION PANEL (ALB,ALK PHOS,ALT,AST,DBIL,TOT STEPHANY,TOT PROT) STAT 02/02/2020 16:38 EDT COMPREHENSIVE METABOLIC PANEL (CMP) STAT 02/02/2020 16:38 EDT POCT US ED EXTENDED FOCUSED ABD TRAUMA (EFAST) STAT 02/02/2020 16:10 EDT POCT CSN BARCODE URINE DIPSTICK STAT 02/02/2020 15:27 EDT documented in this encounter Results * CT ABDOMEN W CONTRAST (02/03/2020 10:49 EDT) Anatomical Region Laterality Modality Body, Abdomen Computed Tomogra phy 02/03/2020 17:2 3 EDT Impressions 02/03/2020 17:23 EDT 1. Periportal edema, hepatomegaly and bulky portal adenopathy may be seen in the setting of acute hepatitis. 2. Small hypodense lesions in the right lobe of the liver are too small to characterize. 3. Calcified splenic granulomas. I have personally reviewed the images and the above interpretation and agree with the findings. Narrative 02/03/2020 17:[address] ABDOMEN W CONTRAST ??02/03/2020 9:55 AM Signs and Symptoms/Comments: ?? Acute hepatitis (Ped 0-18y); Presumed acute hepatitis, RUQ pain Technique: CT of the abdomen was performed following the administration intravenous contrast; coronal and sagittal multiplanar reconstructions generated. Comparison: Right upper quadrant ultrasound February 02, 2020 Findings: Lower chest: There is bibasilar scarring and atelectasis predominantly in the bilateral lower lobes. Hepatobiliary: The liver is enlarged and there is periportal edema in addition to bulky portal adenopathy as may be seen in the setting of acute hepatitis.. Subcentimeter homogenously hypodense lesions in the right lobe of the liver are too small to characterize, but likely to represent benign cysts A small volume of pericholecystic fluid is present. Inferior to the falciform ligament is a region of fat stranding. The gallbladder is filled with homogenously hypodense fluid. Spleen, pancreas, adrenal glands: There are small calcified granulomas within the spleen. There is a small amount of fat stranding near the dorsal head of the pancreas axial #125 in the region of enlarged lymph nodes. The adrenal glands are within normal limits. Kidneys, proximal ureters: The kidneys enhance symmetrically. No suspicious lesions. No hydroureteronephrosis. The ureters are normal along their observed course. Bowel: There is no acute obstruction. No acute inflammation. Peritoneal cavity: No free air. Small volume of pericholecystic fluid. Lymphovascular: As described previously there are enlarged periportal lymph nodes (for example series 201 image #89). No significant vascular abnormality. Abdominal wall: No bowel containing hernias. Punctate foci of subcutaneous gas in the ventral abdominal wall likely iatrogenic in nature. Musculoskeletal: No significant abnormalities. There appears to be an L3 limbus vertebra. Gun Fitter: No additional findings on gas distribution plant operator Procedure Note Ramiro Motley MD - 02/03/2020 CT ABDOMEN W CONTRAST 02/03/2020 9:55 AM Signs and Symptoms/Comments: Acute hepatitis (Ped 0-18y); Presumed acute hepatitis, RUQ pain Technique: CT of the abdomen was performed following the administration intravenouscontrast; coronal and sagittal multiplanar reconstructions generated. Comparison: Right upper quadrant ultrasound February 02, 2020 Findings: Lower chest: There is bibasilar scarring and atelectasis predominantly inthe bilateral lower lobes. Hepatobiliary: The liver is enlarged and there is periportal edema inaddition to bulky portal adenopathy as may be seen in the setting of acutehepatitis.. Subcentimeter homogenously hypodense lesions in the right lobeof the liver are too small to characterize, but likely to represent benigncysts A small volume of pericholecystic fluid is present. Inferior to thefalciform ligament is a region of fat stranding. The gallbladder is filledwith homogenously hypodense fluid. Spleen, pancreas, adrenal glands: There are small calcified granulomaswithin the spleen. There is a small amount of fat stranding near thedorsal head of the pancreas axial #125 in the region of enlarged lymphnodes. The adrenal glands are within normal limits. Kidneys, proximal ureters: The kidneys enhance symmetrically. Nosuspicious lesions. No hydroureteronephrosis. The ureters are normal alongtheir observed course. Bowel: There is no acute obstruction. No acute inflammation. Peritoneal cavity: No free air. Small volume of pericholecystic fluid. Lymphovascular: As described previously there are enlarged periportallymph nodes (for example series 201 image #89). No significant vascularabnormality. Abdominal wall: No bowel containing hernias. Punctate foci of subcutaneousgas in the ventral abdominal wall likely iatrogenic in nature. Musculoskeletal: No significant abnormalities. There appears to be an [id number] vertebra. Gun Fitter: No additional findings on gas distribution plant operator IMPRESSION 1. Periportal edema, hepatomegaly and bulky portal adenopathy may be seenin the setting of acute hepatitis. 2. Small hypodense lesions in the right lobe of the liver are too small tocharacterize. 3. Calcified splenic granulomas. I have personally reviewed the images and the above interpretation andagree with the findings. us Nikki Li MD IM CT ORDERABLES Final Res ult * (ABNORMAL) COMPLETE BLOOD COUNT (02/03/2020 5:37 EDT) WBC 4.03 4.00 - 10.40 K/cmm 02/03/2020 7:35 EDT [facility] RBC 4.18(L) 4.36 - 5.78 M/cmm 02/03/2020 7:35 [facility] Hemoglobin 12.2(L) 13.8 - 17.3 gm/dL 02/03/2020 7:35 EDT [facility] HCT 36.0(L) 39.5 - 50.2 % 02/03/2020 7:35 [facility] MCV 86 81 - 95 fl 02/03/2020 7:35 T [facility] MCH 29.2 27.6 - 33.0 pg 02/03/2020 7:35 [facility] MCHC 33.9 32.8 - 36.4 gm/dL 02/03/2020 7:35 [facility] RDW-CV 14.6(H) <14.2 % 02/03/2020 7:35 [facility] RDW-SD 46.3(H) <46.0 fl 02/03/2020 7:35 [facility] PLT 228 141 - 377 K/cmm 02/03/2020 7:35 [facility] MPV 11.4 9.5 - 12.7 fl 02/03/2020 7:35 EDT [facility] Blood VENOUS BLOOD / Unknown Venipuncture / Unknown 02/03/2020 5:37 EDT 02/03/2020 7:22 EDT Kayley Philip MD HEMATOLOGY & PF4 ORDERABLES F inal Result Performing Organization Address City/[facility]/ZIP Co de Phone Number [facility] [address] [place] [address] * (ABNORMAL) BILIRUBIN, TOTAL (02/03/2020 5:36 EDT) Bilirubin, Total 3.3(H) <1.4 mg/dL 02/03/2020 7:53 EDT [facility] Blood VENOUS BLOOD / Unknown Venipuncture / Unknown 02/03/2020 5:36 EDT 02/03/2020 7:23 EDT us Kayley Philip MD CHEMISTRY & BLOOD GAS ORDERAB LES Final Result Performing Organization Address City/[facility]/ZIP Co de Phone Number [facility] [address] [place] [address] * (ABNORMAL) ALKALINE PHOSPHATASE (02/03/2020 5:36 EDT) Alkaline Phosphatase 219(H) 38 - 126 U/L 02/03/2020 7:53 EDT [facility] Blood VENOUS BLOOD / Unknown Venipuncture / Unknown 02/03/2020 5:36 EDT 02/03/2020 7:23 EDT Kayley Philip MD CHEMISTRY & BLOOD GAS ORDERAB LES Final Result [facility] [address] [place] [address] * (ABNORMAL) ALT (02/03/2020 5:36 EDT) Pathologist [facility] ALT 1,926(H) <50 U/L 02/03/2020 8:22 EDT [facility] Blood VENOUS BLOOD / Unknown Venipuncture / Unknown 02/03/2020 5:36 EDT 02/03/2020 7:23 EDT Kayley Philip MD CHEMISTRY & BLOOD GAS ORDERAB LES Final Result Performing Organization Address City/[facility]/ZIP Co de Phone Number [facility] [address] [place] [address] * (ABNORMAL) AST (02/03/2020 5:36 EDT) AST 990(H) 15 - 46 U/L 02/03/2020 8:08 EDT [facility] Blood VENOUS BLOOD / Unknown Venipuncture / Unknown 02/03/2020 5:36 EDT 02/03/2020 7:23 EDT Kayley Philip MD CHEMISTRY & BLOOD GAS ORDERAB LES Final Result Performing Organization Address City/[facility]/ZIP Co de Phone Number [facility] [address] [place] [address] * CREATININE (02/03/2020 5:36 EDT) Pathologist [facility] Creatinine 0.75 0.66 - 1.25 mg/dL 02/03/2020 7:53 EDT [facility] eGFR 116 >60 mL/min/1.7 3m2 02/03/2020 7:53 EDT [facility] Comment:eGFR calculated woody smith CKD-EPI equation for non- Americans. Multiply eGFR by 1.16 for patients. Blood VENOUS BLOOD / Unknown Venipuncture / Unknown 02/03/2020 5:36 EDT 02/03/2020 7:23 EDT Kayley Philip MD CHEMISTRY & BLOOD GAS ORDERAB LES Final Result [facility] [address] [place] [address] * BUN (02/03/2020 5:36 EDT) BUN 10 10 - 26 mg/dL 02/03/2020 7:53 EDT [facility] Blood VENOUS BLOOD / Unknown Venipuncture / Unknown 02/03/2020 5:36 EDT 02/03/2020 7:23 EDT Kayley Philip MD CHEMISTRY & BLOOD GAS ORDERAB LES Final Result Performing Organization Address City/[facility] Co de Phone Number [facility] [address] [place] [address] * (ABNORMAL) ELECTROLYTES (02/03/2020 5:36 EDT) Sodium 135(L) 136 - 145 mEq/L 02/03/2020 7:53 EDT [facility] Potassium 3.8 3.5 - 5.0 mEq/L 02/03/2020 7:53 EDT [facility] Chloride 104 96 - 110 mEq/L 02/03/2020 7:53 EDT [facility] CO2 Total 25 22 - 32 mEq/L 02/03/2020 7:53 EDT [facility] Blood VENOUS BLOOD / Unknown Venipuncture / Unknown 02/03/2020 5:36 EDT 02/03/2020 7:23 EDT Kayley Philip MD CHEMISTRY & BLOOD GAS ORDERAB LES Final Result Performing Organization Address [facility] Co de Phone Number [facility] [address] [place] [address] * PROTIME (02/03/2020 5:36 EDT) I.N.R. 1.1 0.9 - 1.1 Ratio 02/03/2020 7:43 EDT [facility] Pro Time 12.4 10.3 - 13.4 secs 02/03/2020 7:43 EDT [facility] Blood VENOUS BLOOD / Unknown Venipuncture / Unknown 02/03/2020 5:36 EDT 02/03/2020 7:21 EDT Narrative [facility] - 02/03/2020 7:43 EDT Moderate Intensity Coumadin INR = 2.0-3.0 Adjustments in anticoagulant therapy dose should be based on the INR and NOT on the Protime. Kayley Philip MD HEMATOLOGY & PF4 ORDERABLES F inal Result Performing Organization Address [facility] Co de Phone Number [facility] [address] [place] [address] * US ABDOMEN LIMITED (02/02/2020 19:32 EDT) Anatomical Region Laterality Modality Abdomen, Body Ultrasound 02/03/2020 14:5 3 EDT Impressions 02/03/2020 14:53 EDT 1. ??Preserved hepatopetal flow in the main portal vein. Slight enlargement of the main portal vein to 17 mm is a nonspecific sign, but can be seen in portal hypertension. 2. ??Minimal enlargement of the common bile duct is of uncertain clinical significance. 3. ??No sonographic evidence of cholecystitis. If there is persistent concern, HIDA scan is recommended. I have personally reviewed the images and the above interpretation and agree with the findings. Narrative 02/03/2020 14:53 EDT US ABDOMEN LIMITED ??02/02/2020 7:10 PM SIGNS AND SYMPTOMS/COMMENTS: eval portal venous thrombosis, cholecystitis COMPARISON: None available TECHNIQUE: Grayscale and Doppler ultrasound evaluation of the right upper quadrant of the abdomen was performed. FINDINGS: PANCREAS: Obscured by overlying bowel gas. LIVER: The liver measures 17.3 cm in length, which is normal. The hepatic parenchymal echotexture is unremarkable and there are no focal lesions. There is preserved hepatopetal flow within the main portal vein. The main portal vein is mildly enlarged to 17 mm. RIGHT KIDNEY: The right kidney measures 12.5 cm in length. No hydronephrosis, shadowing renal calculus, or other focal abnormality is identified. Color Doppler flow in the right kidney is normal. GALLBLADDER: The gallbladder wall measures 3 mm in thickness, which is normal. The gallbladder is distended, but without cholelithiasis or pericholecystic fluid. Per the quality assurance clerk report, there is no sonographic [place] sign. BILE DUCTS: The common duct measures 7 mm in diameter at the neha hepatis, which is minimally enlarged. No filling defects identified. PROXIMAL ABDOMINAL AORTA / IVC: Unremarkable. Procedure Note Ramiro Motley MD - 02/03/2020 US ABDOMEN LIMITED 02/02/2020 7:10 PM SIGNS AND SYMPTOMS/COMMENTS: eval portal venous thrombosis,cholecystitis COMPARISON: None available TECHNIQUE: Grayscale and Doppler ultrasound evaluation of the right upperquadrant of the abdomen was performed. FINDINGS: PANCREAS: Obscured by overlying bowel gas. LIVER: The liver measures 17.3 cm in length, which is normal. The hepaticparenchymal echotexture is unremarkable and there are no focal lesions.There is preserved hepatopetal flow within the main portal vein. The mainportal vein is mildly enlarged to 17 mm. RIGHT KIDNEY: The right kidney measures 12.5 cm in length. Nohydronephrosis, shadowing renal calculus, or other focal abnormality isidentified. Color Doppler flow in the right kidney is normal. GALLBLADDER: The gallbladder wall measures 3 mm in thickness, which isnormal. The gallbladder is distended, but without cholelithiasis orpericholecystic fluid. Per the quality assurance clerk report, there is no sonographicMurphys sign. BILE DUCTS: The common duct measures 7 mm in diameter at the portahepatis, which is minimally enlarged. No filling defects identified. PROXIMAL ABDOMINAL AORTA / IVC: Unremarkable. IMPRESSION 1. Preserved hepatopetal flow in the main portal vein. Slight enlargementof the main portal vein to 17 mm is a nonspecific sign, but can be seen inportal hypertension. 2. Minimal enlargement of the common bile duct is of uncertain clinicalsignificance. 3. No sonographic evidence of cholecystitis. If there is persistentconcern, HIDA scan is recommended. I have personally reviewed the images and the above interpretation andagree with the findings. Bryan Macias MD G US ORDERABLES Final Result * LDH (02/02/2020 16:38 EDT) LDH 503 313 - 618 U/L 02/02/2020 20:07 EDT [facility] Blood VENOUS BLOOD / Unknown Venipuncture / Unknown 02/02/2020 16:38 EDT 02/02/2020 16:53 EDT Bryan Macias MD CHEMISTRY & BLOOD GAS ORDERABLES Final Result [facility] [address] [place] [address] * (ABNORMAL) ACUTE HEPATITIS PROFILE (02/02/2020 16:38 EDT) Pathologist [facility] Hep B Surface Ag Negative Negative 02/05/20 11:31 EDT [facility] Hep C Antibody Negative Negative 02/05/2020 11:31 EDT [facility] Hepatitis A Antibody, IgM Positive(A) Negative 02/05/2020 11:31 EDT [facility] Comment: Test result should be correlated with medical history and clinical findings. Follow-up testing with Hepatitis A Total Antibody is recommended at least 30 days later for retrospective confirmation of acute hepatitis. The results of this assay can be falsely lowered due to the consumption of Biotin. Hepatitis B Core Ab, Total Negative Negative 02/05/2020 11:31 EDT [facility] Blood VENOUS BLOOD / Unknown Venipuncture / Unknown 02/02/2020 16:38 EDT 02/02/2020 16:53 EDT us Bryan Macias MD CHEMISTRY & BLOOD GAS ORDERABLES Final Result [facility] [address] [place] [address] * (ABNORMAL) DIFFERENTIAL, AUTOMATED MANUAL (02/02/2020 16:38 EDT) % Neutrophils 67.8 % 02/02/2020 17:39 EDT [facility] % Banded Neutrophils 1.7 % 02/02/2020 17:39 EDT [facility] % Lymphocytes 19.1 % 02/02/2020 17:39 [facility] % Atypical Lymphocytes 2.6 % 02/02/2020 17:39 [facility] % Monocytes 7.0 % 02/02/2020 17:39 [facility] % Eosinophils 1.8 % 02/02/2020 17:39 [facility] Target Cells 2+ 02/02/2020 17:39 [facility] Absolute Neutrophils 2.34 2.20 - 8.85 K/cmm 02/02/2020 17:39 [facility] Absolute Bands 0.06 K/cmm 02/02/2020 17:39 [facility] Absolute Lymphocytes 0.66(L) 1.09 - 3.30 K/cmm 02/02/2020 17:39 [facility] Absolute Atypical Lymphocytes 0.09 K/cmm 02/02/2020 17:39 [facility] Absolute Monocytes 0.24 0.10 - 0.80 K/cmm 02/02/2020 17:39 [facility] Absolute Eosinophils 0.06 0.03 - 0.61 K/cmm 02/02/2020 17:39 [facility] Blood VENOUS BLOOD / Unknown Venipuncture / Unknown 02/02/2020 16:38 EDT 02/02/2020 16:53 EDT us Bryan Macias MD HEMATOLOGY & PF4 ORDERABLES Tia l Result [facility] [address] [place] [address] * HOLD GREEN TOP (02/02/2020 16:38 EDT) Hold Hold 02/02/2020 18:01 [facility] Blood VENOUS BLOOD / Unknown Venipuncture / Unknown 02/02/2020 16:38 EDT 02/02/2020 16:53 EDT Mayito Singh MD LAB INFO SERVICE AND SUPPORT & PHONE RESULT Final Result [facility] [address] [place] [address] * (ABNORMAL) HEPATIC FUNCTION PANEL (ALB,ALK PHOS,ALT,AST,DBIL,TOT STEPHANY,TOT PROT) (02/02/2020 16:38 EDT) Total Protein 6.5 6.3 - 8.2 g/dL 020 17:32 [facility] Albumin 3.0(L) 3.4 - 4.9 g/dL 02/02/2020 17:32 [facility] Bilirubin, Total 4.6(H) <1.4 mg/dL 02/02/20 20 17:32 [facility] Conjugated Bilirubin 1.7(H) 0.0 - 0.3 mg/dL 02/02/2020 17:32 [facility] Unconjugated Bilirubin 0.9 0.0 - 1.1 mg/dL 02/02/2020 17:32 [facility] Delta Bilirubin 2.0 Not Established mg/dL 02/02/2020 17:32 [facility] Comment: Delta Bilirubin occurs in extended conjugated hyperbilirubinemia. Alkaline Phosphatase 174(H) 38 - 126 U/L 02/02/2020 17:32 [facility] ALT 2,522(H) <50 U/L 02/02/2020 17:32 [facility] AST 1,437(H) 15 - 46 U/L 02/02/2020 17:32 [facility] Blood VENOUS BLOOD / Unknown Venipuncture / Unknown 02/02/2020 16:38 EDT 02/02/2020 16:53 EDT Bryan Macias MD CHEMISTRY & BLOOD GAS ORDERABLES Final Result Performing Organization Address [facility]/ZIP Co de Phone Number [facility] [address] [place] [address] * PTT (02/02/2020 16:38 EDT) PTT 35 26 - 37 secs 02/02/2020 17:20 EDT [facility] Blood VENOUS BLOOD / Unknown Venipuncture / Unknown 02/02/2020 16:38 EDT 02/02/2020 16:53 EDT Bryan Macias MD HEMATOLOGY & PF4 ORDERABLES Tia l Result Performing Organization Address [facility] de Phone Number [facility] [address] [place] [address] * (ABNORMAL) PROTIME (02/02/2020 16:38 EDT) I.N.R. 1.2(H) 0.9 - 1.1 Ratio 02/02/2020 17:20 EDT [facility] Pro Time 13.8(H) 10.3 - 13.4 secs 02/02/2020 17:20 EDT [facility] Blood VENOUS BLOOD / Unknown Venipuncture / Unknown 02/02/2020 16:38 EDT 02/02/2020 16:53 EDT Narrative [facility] - 02/02/2020 17:20 EDT Moderate Intensity Coumadin INR = 2.0-3.0 Adjustments in anticoagulant therapy dose should be based on the INR and NOT on the Protime. Result [facility] Bryan Macias MD HEMATOLOGY & PF4 ORDERABLES Tia l Result Performing Organization Address [facility] Co de Phone Number [facility] [address] [place] [address] * LIPASE (02/02/2020 16:38 EDT) Lipase 71 <251 U/L 02/02/2020 17:10 [facility] Blood VENOUS BLOOD / Unknown Venipuncture / Unknown 02/02/2020 16:38 EDT 02/02/2020 16:53 EDT Bryan Macias MD CHEMISTRY & BLOOD GAS ORDERABLES Final Result [facility] [address] [place] [address] * (ABNORMAL) COMPREHENSIVE METABOLIC PANEL (CMP) (02/02/2020 16:38 EDT) Sodium 138 136 - 145 mEq/L 02/02/2020 17:33 [facility] Potassium 4.0 3.5 - 5.0 mEq/L 02/02/2020 17:33 [facility] Chloride 103 96 - 110 mEq/L 02/02/2020 17:33 [facility] CO2 Total 28 22 - 32 mEq/L 02/02/2020 17:33 [facility] Glucose 119(H) 70 - 100 mg/dL 02/02/2020 17:33 [facility] BUN 10 10 - 26 mg/dL 02/02/2020 17:33 [facility] Creatinine 0.75 0.66 - 1.25 mg/dL 02/02/2020 17:33 [facility] eGFR 116 >60 mL/min/1. 73m2 02/02/2020 17:33 [facility] Comment:eGFR calculated woody smith CKD-EPI equation for non- Americans. Multiply eGFR by 1.16 for patients. Total Protein 6.5 6.3 - 8.2 g/dL 02/02/2020 17:33 [facility] Albumin 3.0(L) 3.4 - 4.9 g/dL 02/02/2020 17:33 [facility] Alkaline Phosphatase 174(H) 38 - 126 U/L 02/02/2020 [facility] AST 1,437(H) 15 - 46 U/L 02/02/2020 17:33 [facility] ALT 2,522(H) <50 U/L 02/02/2020 17:33 [facility] Bilirubin, Total 4.6(H) <1.4 mg/dL 02/02/2020 17:33 [facility] Calcium 8.6 8.5 - 10.5 mg/dL 02/02/2020 17:33 [facility] Calculated Calcium 9.4 8.5 - 10.5 mg/dL 02/02/2020 17:33 [facility] Blood VENOUS BLOOD / Unknown Venipuncture / Unknown 02/02/2020 16:38 EDT 02/02/2020 16:53 EDT us Bryan Macias MD CHEMISTRY & BLOOD GAS ORDERABLES Final Result [facility] [address] [place] [id number] * (ABNORMAL) COMPLETE BLOOD COUNT AND DIFFERENTIAL (02/02/2020 16:38 EDT) WBC 3.45(L) 4.00 - 10.40 K/cmm 02/02/2020 17:05 [facility] RBC 4.05(L) 4.36 - 5.78 M/cmm 02/02/2020 17:05 [facility] Hemoglobin 11.8(L) 13.8 - 17.3 gm/dL 02/02/2020 17:05 [facility] HCT 35.2(L) 39.5 - 50.2 % 02/02/2020 17:05 [facility] MCV 87 81 - 95 fl 02/02/2020 17:05 [facility] MCH 29.1 27.6 - 33.0 pg 02/02/2020 17:05 [facility] MCHC 33.5 32.8 - 36.4 gm/dL 02/02/2020 17:05 [facility] RDW-CV 14.5(H) <14.2 % 02/02/2020 17:05 EDT [facility] RDW-SD 46.0(H) <46.0 fl 02/02/2020 17:05 EDT [facility] PLT 242 141 - 377 K/cmm 02/02/2020 17:05 EDT [facility] MPV 10.2 9.5 - 12.7 fl 02/02/2020 17:05 EDT [facility] Type of Differential: Manual 02/02/2020 17:05 EDT [facility] Blood VENOUS BLOOD / Unknown Venipuncture / Unknown 02/02/2020 16:38 EDT 02/02/2020 16:53 EDT us Bryan Macias MD PACKAGES & DNA PROBE ORDERABLES Final Result Performing Organization Address City/State/[facility] Co de Phone Number [facility] [address] [place] [address] * POCT US ED EXTENDED FOCUSED ABD TRAUMA (EFAST) (02/02/2020 16:10 EDT) Anatomical Region Laterality Modality Ultrasound 02/02/2020 15:1 6 EDT Narrative 02/05/2020 13:31 EDT [facility] - Ultrasound Exam Date: 02/02/2020 Exam Type: POCT US ED EXTENDED FOCUSED ABD TRAUMA (EFAST) Form Building Supervisor: Bryan Macias Attending: Bryan Macias Worksheet: [id number] (POCT US ED EXTENDED FOCUSED ABD TRAUMA (EFAST) Exam Information: ?? A focused (limited) ultrasound exam of the pleural spaces was performed to evaluate for pneumothorax or pulmonary edema. Exam Type: ?? Clinically Indicated Indication(s) for Exam: ?? The exam was performed with the following indications: Abdominal pain ?? Other Indication(s): Clinical study reviewed with Dr. Kendrick during management. New Hep C and abdominal pain. Current heroin and cocaine use. Views Obtained & Images Saved for These Views: ?? Right anterior / superior thorax: Not obtained ?? Right lateral / inferior thorax: Adequate ?? Left anterior / superior thorax: Not obtained ?? Left lateral / inferior thorax: Adequate Findings: ?? Morison's pouch (RUQ): Fluid absent ?? Right pleural space: Fluid absent ?? Splenorenal space (LUQ): Fluid absent ?? Left pleural space: Fluid absent ?? Retrovesicular space: Fluid absent Interpretation: ?? No pathologic free fluid ?? Peritoneal free fluid: None ?? Pleural free fluid: None ?? Other: Slow bowel transit, question of obstruction?, normal GB, CBD Confirmatory study: ?? What confirmatory study was done?: Ultrasound ?? Confirmatory study findings: No cholecystitis US POCUS Preliminary Signature: ?? POCUS Preliminary Signature: Signed by Bryan Macias on Monday, February 03, 2020 at 1:50:54 PM Physician Signature: ?? I review and approve of the documentation above.: Signed by Олег Zimmerman MD on Wednesday, February 05, 2020 at 1:31:23 PM This exam was performed and interpreted by the [facility] ED Staff Procedure Note Олег Zimmerman MD - 02/05/2020 [facility] - Ultrasound Exam Date: 02/02/2020 Exam Type: POCT US ED EXTENDED FOCUSED ABD TRAUMA (EFAST) Form Building Supervisor: Bryan Macias Attending: Bryan Macias Worksheet: [id number] (POCT US ED EXTENDED FOCUSED ABD TRAUMA (EFAST) Exam Information: A focused (limited) ultrasound exam of the pleural spaces was performedto evaluate for pneumothorax or pulmonary edema. Exam Type: Clinically Indicated Indication(s) for Exam: The exam was performed with the following indications: Abdominal pain Other Indication(s): Clinical study reviewed with Dr. Kendrick duringmanagement. New Hep C and abdominal pain. Current heroin and cocaineuse. Views Obtained & Images Saved for These Views: Right anterior / superior thorax: Not obtained Right lateral / inferior thorax: Adequate Left anterior / superior thorax: Not obtained Left lateral / inferior thorax: Adequate Findings: Morison's pouch (RUQ): Fluid absent Right pleural space: Fluid absent Splenorenal space (LUQ): Fluid absent Left pleural space: Fluid absent Retrovesicular space: Fluid absent Interpretation: No pathologic free fluid Peritoneal free fluid: None Pleural free fluid: None Other: Slow bowel transit, question of obstruction?, normal GB, CBD Confirmatory study: What confirmatory study was done?: Ultrasound Confirmatory study findings: No cholecystitis US POCUS Preliminary Signature: POCUS Preliminary Signature: Signed by Bryan Macias on 2019 at 1:50:54 PM Physician Signature: I review and approve of the documentation above.: Signed by Hector PEREZ on Wednesday, February 05, 2020 at 1:31:23 PM This exam was performed and interpreted by the [facility] ED Staff us Bryan Macias MD IMG POCT US ORDERABLES Final Res ult * POCT CSN BARCODE URINE DIPSTICK (02/02/2020 15:27 EDT) Hold Hold 02/02/2020 16:31 EDT [facility] Urine URINE SPECIMEN OBTAINED BY CLEAN CATCH PROCEDURE / Unknown 02/02/2020 15:27 EDT 02/02/2020 15:27 EDT us Weston Contreras PA-C LAB INFO SERVICE AND SUPPORT & PHONE RESULT Final Result [facility] [address] [place] [address] documented in this encounter Visit Diagnoses Diagnosis Acute hepatitis A- Primary Viral hepatitis A without mention of hepatic coma Right upper quadrant abdominal pain Abdominal pain, right upper quadrant Acute hepatitis Acute and subacute necrosis of liver Jaundice Jaundice, unspecified, not of Opiate abuse, continuous ([facility]) Opioid abuse, continuous IVDU (intravenous drug user) Other, mixed, or unspecified nondependent drug abuse, unspecified Jaundice Jaundice, unspecified, not of Right upper quadrant abdominal pain Abdominal pain, right upper quadrant Acute hepatitis Acute and subacute necrosis of liver documented in this encounter Admitting Diagnoses Diagnosis Hepatitis C Unspecified viral hepatitis C without hepatic coma documented in this encounter Administered Medications Inactive Administered Medications - up to 3 most recent administrations Medication Order MAR Action Action Date Dose Rate Site cloNIDine HCL (CATAPRES) tablet 0.2 mg 0.2 mg, oral, 2 TIMES DAILY, First dose on Wed02/02/20 at 2015, Until Discontinued, STAT Given 02/02/2020 20:16 EDT 0.2 mg heparin injection 5,000 Units 5,000 Units, subcutaneous, EVERY 12 HOURS, First dose on 02/03/20 at 0900, Until Discontinued, Routine Given 02/03/2020 9:57 EDT 5,000 Units iohexoL (OMNIPAQUE 350) solution 100 mL 100 mL, intravenous, Once in imaging, 1 dose, Starting on 02/03/20 at 1035, Until 02/03/20 at 1049, Routine, Imaging Protocol Orders Given 02/03/2020 10:49 EDT 95 mL lactated ringers (LR) infusion at 100 mL/hr, intravenous, CONTINUOUS, Starting on 02/03/20 at 0045, Until 02/03/20 at 1351, Routine New Bag 02/03/2020 8:49 EDT 100 mL/hr New Bag 02/03/2020 0:50 EDT 100 mL/hr lactated ringers BOLUS 1,000 mL 1,000 mL, intravenous, NOW X1, 1 dose, On Wed02/02/20 at 1630, STAT New Bag 02/02/2020 16:46 EDT 1,000 mL lactated ringers BOLUS 1,000 mL 1,000 mL, intravenous, NOW X1, 1 dose, On Wed02/02/20 at 2300, STAT New Bag 02/02/2020 22:56 EDT 1,000 mL LORazepam (ATIVAN) injection 1 mg 1 mg, intravenous, NOW X1, 1 dose, On Wed02/02/20 at 2215, STAT Given 02/02/2020 22:24 EDT 1 mg morphine (MS IR) tablet 15 mg 15 mg, oral, EVERY 4 HOURS PRN, Starting on 02/03/20 at 0025, Until 02/03/20 at 0935, Pain, Routine Given 02/03/2020 3:45 EDT 15 mg documented in this encounter Active and Recently Administered Medications Times are shown in EDT. Scheduled Medication Order 02/01/2020 02/02/2020 02/03/2020 cloNIDine HCL (CATAPRES) tablet 0.2 mg (CANCELED) 0.2 mg, oral, 2 TIMES DAILY, First dose on Wed02/02/20 at 2015, Until Discontinued, STAT 2016 (Given - Provider: Pepe Bruce RN) heparin injection 5,000 Units 5,000 Units, subcutaneous, EVERY 12 HOURS, First dose on 02/03/20 at 0900, Until Discontinued, Routine 0957 (Given - Provid er: Raquel Wells RN) iohexoL (OMNIPAQUE 350) solution 100 mL (COMPLETED) 100 mL, intravenous, Once in imaging, 1 dose, Starting on 02/03/20 at 1035, Until 02/03/20 at 1049, Routine, Imaging Protocol Orders 1049 (Given - Provid er: Talib Saunders) lactated ringers BOLUS 1,000 mL (COMPLETED) 1,000 mL, intravenous, NOW X1, 1 dose, On Wed02/02/20 at 1630, STAT 1646 (New Bag - Provider: Pepe Bruce RN)1740 (Completed - Provider: Pepe Bruce RN) lactated ringers BOLUS 1,000 mL (COMPLETED) 1,000 mL, intravenous, NOW X1, 1 dose, On Wed02/02/20 at 2300, STAT 2256 (New Bag - Provider: Pepe Bruce RN) LORazepam (ATIVAN) injection 1 mg (COMPLETED) 1 mg, intravenous, NOW X1, 1 dose, On Wed02/02/20 at 2215, STAT 2224 (Given - Provider: Pepe Bruce RN) Continuous Medication Order 02/01/2020 02/02/2020 02/03/2020 lactated ringers (LR) infusion at 100 mL/hr, intravenous, CONTINUOUS, Starting on 02/03/20 at 0045, Until 02/03/20 at 1351, Routine 0050 (New Bag - Prov ider: Jordyn Felix RN)0800 (Paused - Provider: Raquel Wells RN - Comment: pt disconnected his IV)0849 (New Bag - Provider: Raquel Wells RN) PRN Medication Order 02/01/2020 02/02/2020 02/03/2020 lidocaine (PF) 10 mg/mL (1 %) injection 2 mg 2 mg, intradermal, PRN, 4 doses, Starting on Wed02/02/20 at 2337, Until 02/03/20 at 1351, peripheral intravenous catheter placement, Routine morphine (MS IR) tablet 15 mg (CANCELED) 15 mg, oral, EVERY 4 HOURS PRN, Starting on 02/03/20 at 0025, Until 02/03/20 at 0935, Pain, Routine 0345 (Given - Provid er: Walum Awotho, RN) polyethylene glycol 3350 (MIRALAX) packet 17 g 17 g, oral, DAILY PRN, Starting on 02/02/20 at 2337, Until 02/03/20 at 1351, Constipation, Routine documented in this encounter Orders Medications Ordered That Kin ht Not Have Been Administered Count Last Ordered Date First Ordered Date enoxaparin (LOVENOX) injection 40 mg 1 01/16 lidocaine (PF) 10 mg/mL (1 % ) injection 2 mg 1 02/02/2020 polyethylene glycol 3350 (IL RALAX) packet 17 g 1 02/02/2020 Admission Count Last Ordered Date First Orde red Date ADMIT TO INPATIENT 1 02/02/2020 Transfer Count Last Ordered Date First Orde red Date ED BED REQUEST 1 02/02/2020 TEACHING SERVICE 1 02/02/2020 Discharge Count Last Ordered Date First Orde red Date DISCHARGE PATIENT 1 02/03/2020 documented in this encounter Care Teams Channeler Runner Relationship Specialty Start Date End Date None, Provider PCP - General 02/20/14 02/04/20 documented as of this encounter
--- OUTSIDE RECORDS SUMMARY | 2024-07-02 14:33 | XMS_ITS | Encounter Summary ---
Author Organization [facility] Address [address] [place] [address] Care Team Providers Care Light Rail Operator Name Role Phone None, Provider Unavailable Unavailable Milo Baer MD Primary Care Provider [phone] Raffi Merida DO Primary Care Provider Encounter Details Date Type Department Care Team (Late st Contact Info) Description 07/15/2023 Lab Requisition [facility] Pathology & Laboratory Medicine - [facility] [address] [place] [address] Outr Resulting Lab, Provider Social History Tobacco [...] Comments CHLAMYDIA/N. GONORRHOEAE AMPLIFIED NUCLEIC ACID Routine 07/15/2023 9:15 EST documented in this encounter Results * CHLAMYDIA/N. GONORRHOEAE AMPLIFIED RNA (07/15/2023 9:15 EST) Neisseria gonorrhoeae Result Negative Negative 07/16/2023 16:30 EST [facility] Chlamydia trachomatis Result Negative Negative 07/16/2023 16:30 EST [facility] Urine URINE / Unknown 07/15/2023 9 :15 EST 07/15/2023 17:10 EST us Provider Outr Resulting Lab MICROBIOLOGY - GENER AL ORDERABLES Final Result [facility] [address] [place] [address] documented in this encounter Visit Diagnoses Not on filedocumented in this encounter Additional Health Concerns Infection Onset Date Last Indicated Resolved Time MRSA Comment:05/24/2024 +MRSA blood cultures [facility] Pos blood 05/26/24, 05/27/24, 05/29/24, 05/30/24, 06/01/24, 06/03/24, 06/04/24, 06/05/24 - Radha Yari 06/08/2024 2024 06/05/2024 documented as of this encounter Care Teams Light Rail Operator Relationship Specialty Start Date End Date Milo Baer MD [address] [place] [address] [phone] PCP - General Family Medicine - Primary Care 02/17/23 05/25/24 Raffi Merida DO [address] [place] [address] [phone] PCP - General Family Medicine - Primary Care 05/26/24 None, Provider 02/05/20 05/25/24 documented as of this encounter
--- OUTSIDE RECORDS SUMMARY | 2024-07-02 14:33 | XMS_ITS | Encounter Summary ---
Author Organization [facility] Address [address] [place] [address] Care Team Providers Care C Java Developer Name Role Phone None, Provider Unavailable Unavailable Milo Baer MD Primary Care Provider [phone] Raffi Merida DO Primary Care Provider [phone] Encounter Details Date Type Department Care Team (Late st Contact Info) Description 05/01/2024 Lab Requisition [facility] Pathology & Laboratory Medicine - [facility] [address] [place] [address] Outr Resulting Lab, Provider Social History Tobacco [...] Procedure Name Priority Date/Time Associated Diagnosis Comments HCV RNA DETECT QUANT Today 05/01/2024 12:15 EDT HOLD SST Today 05/01/2024 12:15 EDT HEPATITIS C AB W REFLEX TO HCV RNA BY PCR Today 05/01/2024 12:15 EDT HEPATITIS A ANTIBODY IGM Today 05/01/2024 12:15 EDT HEPATITIS A TOTAL ANTIBODY W REFLEX Today 05/01/2024 12:15 EDT HEPATITIS B CORE ANTIBODY (TOTAL) Today 05/01/2024 12:15 EDT HEPATITIS B SURFACE ANTIBODY Today 05/01/2024 12:15 EDT HEPATITIS B SURFACE ANTIGEN Today 05/01/2024 12:15 EDT documented in this encounter Results * (ABNORMAL) HCV RNA DETECT QUANT (05/01/2024 12:15 EDT) [facility] HCV RNA Qualitative Detected( A) Undetected 05/03/2024 11:46 EDT [facility] HCV RNA Quantitative 474,000(H ) Undetected IU/mL 05/03/2024 11:46 EDT [facility] Blood VENOUS BLOOD / Unknown 05/01/2024 12:15 EDT 05/01/2024 21:[address] [facility] LABORATORY SERVICES - 05/03/2024 11:46 EDT The quantification range of this assay is 15 IU/mL to 100,000,000 IU/mL. Testing was performed using the John HCV test ([employer] with the john [employer] System. us Provider Outr Resulting Lab CHEMISTRY & BLOOD GA S ORDERABLES Final Result Performing Organization Address City/[facility]/ZIP Co de Phone Number [facility] [address] [place] [phone] * HEPATITIS A ANTIBODY IGM (05/01/2024 12:15 EDT) [facility] Hepatitis A Antibody, IgM Negative Negative 05/02/2024 13:13 EDT [facility] Blood VENOUS BLOOD / Unknown 05/01/2024 12:15 EDT 05/01/2024 21:[address] [facility] LABORATORY SERVICES - 05/02/2024 13:13 EDT The results of this assay can be falsely lowered due to the consumption of Biotin. us Provider Outr Resulting Lab CHEMISTRY & BLOOD GA S ORDERABLES Final Result Performing Organization Address City/[facility]/ZIP Co de Phone Number [facility] [address] [place] [address] * HOLD SST (05/01/2024 12:15 EDT) [facility] Hold Hold 05/01/2024 22:30 EDT [facility] Blood VENOUS BLOOD / Unknown 05/01/2024 12:15 EDT 05/01/2024 21:21 EDT us Provider Outr Resulting Lab LAB INFO SERVICE AND SUPPORT & PHONE RESULT Final Result Performing Organization Address [facility] Co de Phone Number [facility] [address] [place] [address] * HEPATITIS B SURFACE ANTIBODY (05/01/2024 12:15 EDT) Hep B Surface Ab, Quantitative 58.0 See Note mIU/mL 05/02/2024 9:39 EDT [facility] Comment: Reference Range for Hep B Surface Ab, Quant: Positive: >= 10.0 mIU/mL Negative: ??< 10.0 mIU/mL Patient is presumed to be immune to infection with Hepatitis B Virus. Hep B Surface Ab, Qualitative Positive See Note 05/02/2024 9:39 EDT [facility] Comment: Reference Range for Hep B Surface Ab, Qual: Unvaccinated: ??Negative Vaccinated: ??Positive Blood VENOUS BLOOD / Unknown 05/01/2024 12:15 EDT 05/01/2024 21:21 EDT us Provider Outr Resulting Lab CHEMISTRY & BLOOD GA S ORDERABLES Final Result Performing Organization Address [facility] Co de Phone Number [facility] [address] [place] [phone] * HEPATITIS B CORE ANTIBODY (TOTAL) (05/01/2024 12:15 EDT) Hepatitis B Core Ab, Total Negative Negative 05/02/2024 10:19 EDT [facility] Blood VENOUS BLOOD / Unknown 05/01/2024 12:15 EDT 05/01/2024 21:21 EDT us Provider Outr Resulting Lab CHEMISTRY & BLOOD GA S ORDERABLES Final Result Performing Organization Address City/[facility]/ZIP Co de Phone Number [facility] [address] [place], [place] [id number] * HEPATITIS B SURFACE ANTIGEN (05/01/2024 12:15 EDT) Hep B Surface Ag Negative Negative 05/02/2024 9:45 EDT [facility] Blood VENOUS BLOOD / Unknown 05/01/2024 12:15 EDT 05/01/2024 21:21 EDT us Provider Outr Resulting Lab CHEMISTRY & BLOOD GA S ORDERABLES Final Result Performing Organization Address [facility] Co de Phone Number [facility] [address] [place], [place] [phone] * (ABNORMAL) HEPATITIS C AB W REFLEX TO HCV RNA BY PCR (05/01/2024 12:15 EDT) Pathologist [facility] Hep C Antibody Reactive(A ) Negative 05/02/2024 12:03 EDT [facility] Comment: Supplemental testing for HCV RNA is ordered to rule out active HCV infection. Blood VENOUS BLOOD / Unknown 05/01/2024 12:15 EDT 05/01/2024 21:21 EDT us Provider Outr Resulting Lab CHEMISTRY & BLOOD GA S ORDERABLES Final Result Performing Organization Address [facility] Co de Phone Number [facility] [address] [place], [place] [address] * (ABNORMAL) HEPATITIS A TOTAL ANTIBODY W REFLEX (05/01/2024 12:15 EDT) Hepatitis A Antibody, Total Positive(A ) Negative 05/02/2024 12:03 EDT [facility] Blood VENOUS BLOOD / Unknown 05/01/2024 12:15 EDT 05/01/2024 21:21 EDT Narrative [facility]ORY [facility] - 05/02/2024 12:03 EDT The result of this assay can be falsely elevated (Positive) due to the consumption of Biotin. us Provider Outr Resulting Lab CHEMISTRY & BLOOD GA S ORDERABLES Final Result [facility] [address] [place] [address] documented in this encounter Visit Diagnoses Not on filedocumented in this encounter Additional Health Concerns Infection Onset Date Last Indicated Resolved Time MRSA Comment:05/24/2024 +MRSA blood cultures [facility] Pos blood 05/26/24, 05/27/24, 05/29/24, 05/30/24, 06/01/24, 06/03/24, 06/04/24, 06/05/24 - Radha Greenberg 06/08/2024 2024 06/05/2024 documented as of this encounter Care Teams C Java Developer Relationship Specialty Start Date End Date Milo Baer MD [address] [place] [phone] PCP - General Family Medicine - Primary Care 02/17/23 05/25/24 Raffi Merida DO [address] [place] [phone] PCP - General Family Medicine - Primary Care 05/26/24 None, Provider 02/05/20 05/25/24 documented as of this encounter
--- OUTSIDE RECORDS SUMMARY | 2024-07-02 14:33 | XMS_ITS | Encounter Summary ---
Author Organization [facility] Address [address] [place] [address] Care Team Providers Care Senior Clinical Consultant Name Role Phone None, Provider Primary Care Provider Unavailabl e None, Provider Unavailable Unavailable Milo Baer MD Primary Care Provider [phone] Raffi Merida DO Primary Care Provider [phone] Encounter Details Date Type Department Care Team (Late st Contact Info) Description 09/21/2022 Lab Requisition [facility] Pathology & Laboratory Medicine - [facility] [address] [place], [place] [address] Outr Resulting Lab, Provider Social History Tobacco Use Types Packs/Day Years Used Date Smoking Tobacco: Never Assessed AUDIT-C Answer Date Recorded Q1: How often [...] hearing? Answer Date of Assessment Author No 08/05/2022 3:43 EST Angelic Tamayo RN * Are you blind or do [...] Procedure Name Priority Date/Time Associated Diagnosis Comments SYPHILIS SEROLOGY Routine 09/21/2022 10: 25 EST HEPATITIS C AB W REFLEX TO HCV RNA BY PCR Routine 09/21/2022 10:25 EST HEPATITIS B CORE ANTIBODY (TOTAL) Routine 09/21/2022 10:25 EST HEPATITIS B SURFACE ANTIBODY Routine 09/21/2022 10:25 EST HEPATITIS B SURFACE ANTIGEN Routine 09/21/2022 10:25 EST TESTOSTERONE, TOTAL AND FREE Routine 09/21/2022 10:25 EST HIV 1/2 ANTIGEN AND ANTIBODY, 4TH GENERATION Routine 09/21/2022 10:25 EST documented in this encounter Results * SYPHILIS SEROLOGY (09/21/2022 10:25 EST) Syphilis Serology Negative Negative 09/22/2022 11:33 EST [facility] Blood VENOUS BLOOD / Unknown 09/21/2022 10:25 EST 09/21/2022 21:42 EST us Provider Outr Resulting Lab IMMUNOLOGY AND SEROL OGY ORDERABLES Final Result Performing Organization Address [facility] de Phone Number [facility] [address] [place] [address] * (ABNORMAL) TESTOSTERONE, TOTAL AND FREE (09/21/2022 10:25 EST) Testosterone 66(L) 229 - 902 ng/dL 09/22/2022 12:32 EST [facility] Comment:The results of this assay can be falsley elevated due to the consumption of Biotin. Sex Hormone Bnd Glob 26.7 11.5 - 54.5 nmol/L 09/22/2022 12:32 EST [facility] Comment:The results of this assay can be falsely lowered due to the consumption of Biotin. Free Testosterone 1.4(L) 4.1 - 15.2 ng/dL 09/22/2022 12:32 EST [facility] Blood VENOUS BLOOD / Unknown 09/21/2022 10:25 EST 09/21/2022 21:42 EST Narrative [facility] - 09/22/2022 12:32 EST This test is not recommended in patients with plasma protein abnormalities. us Provider Outr Resulting Lab CHEMISTRY & BLOOD GA S ORDERABLES Final Result Performing Organization Address City/[facility]/ZIP Co de Phone Number [facility] [address] [place] [address] * HEPATITIS B CORE ANTIBODY (TOTAL) (09/21/2022 10:25 EST) Hepatitis B Core Ab, Total Negative Negative 09/22/2022 10:23 EST [facility] Blood VENOUS BLOOD / Unknown 09/21/2022 10:25 EST 09/21/2022 21:42 EST us Provider Outr Resulting Lab CHEMISTRY & BLOOD GA S ORDERABLES Final Result [facility] [address] [place] [address] * HEPATITIS C AB W REFLEX TO HCV RNA BY PCR (09/21/2022 10:25 EST) Hep C Antibody Negative Negative 09/22/2022 10:02 EST [facility] Blood VENOUS BLOOD / Unknown 09/21/2022 10:25 EST 09/21/2022 21:42 EST Provider Outr Resulting Lab CHEMISTRY & BLOOD GA S ORDERABLES Final Result Performing Organization Address [facility] Co de Phone Number [facility] [address] [place] [address] * HEPATITIS B SURFACE ANTIBODY (09/21/2022 10:25 EST) Hep B Surface Ab, Quantitative 57.8 See Note mIU/mL 09/22/2022 9:24 [facility] Comment: Reference Range for Hep B Surface Ab, Quant: Positive: >= 10.0 mIU/mL Negative: ??< 10.0 mIU/mL Patient is presumed to be immune to infection with Hepatitis B Virus. Hep B Surface Ab, Qualitative Positive See Note 09/22/2022 9:24 [facility] Comment: Reference Range for Hep B Surface Ab, Qual: Unvaccinated: ??Negative Vaccinated: ??Positive Blood VENOUS BLOOD / Unknown 09/21/2022 10:25 EST 09/21/2022 21:42 EST Provider Outr Resulting Lab CHEMISTRY & BLOOD GA S ORDERABLES Final Result Performing Organization Address City/[facility] Co de Phone Number [facility] [address] [place] [address] * HEPATITIS B SURFACE ANTIGEN (09/21/2022 10:25 EST) Hep B Surface Ag Negative Negative 09/22/2022 9:28 EST [facility] Blood VENOUS BLOOD / Unknown 09/21/2022 10:25 EST 09/21/2022 21:42 EST us Provider Outr Resulting Lab CHEMISTRY & BLOOD GA S ORDERABLES Final Result Performing Organization Address City/[facility]/ZIP Co de Phone Number [facility] [address] [place] [address] * HIV 1/2 ANTIGEN AND ANTIBODY, 4TH GENERATION (09/21/2022 10:25 EST) [facility] HIV 1 and 2 Antibody/p24 Antigen, 4th Generation Negative Negative 09/22/2022 10:10 EST [facility] Comment:If acute HIV-1 infec tion is suspected in a high risk patient, submit plasma specimen for HIV-1 RNA quantitation test. Blood VENOUS BLOOD / Unknown 09/21/2022 10:25 EST 09/21/2022 21:42 EST Narrative [facility] - 09/22/2022 10:10 EST Fourth Generation assay performed on the Siem[employer] Centaur XPT. us Provider Outr Resulting Lab IMMUNOLOGY AND SEROL OGY ORDERABLES Final Result Performing Organization Address City/[facility] Co de Phone Number [facility] [address] [place] [address] documented in this encounter Visit Diagnoses Not on filedocumented in this encounter Additional Health Concerns Infection Onset Date Last Indicated Resolved Time MRSA Comment:05/24/2024 +MRSA blood cultures [facility] Pos blood 05/26/24, 05/27/24, 05/29/24, 05/30/24, 06/01/24, 06/03/24, 06/04/24, 06/05/24 - Radha DiMasi 06/08/2024 2024 06/05/2024 documented as of this encounter Care Teams Senior Clinical Consultant Relationship Specialty Start Date End Date None, Provider PCP - General 02/05/20 02/16/23 Milo Baer MD [address] [place] [phone] PCP - General Family Medicine - Primary Care 02/17/23 05/25/24 Raffi Merida DO [address] [place] [phone] PCP - General Family Medicine - Primary Care 05/26/24 None, Provider 02/05/20 05/25/24 documented as of this encounter
--- OUTSIDE RECORDS SUMMARY | 2024-07-02 14:33 | XMS_ITS | Encounter Summary ---
Author Organization [facility] Address [address] [place] [address] Care Team Providers Care Water Resource Engineer Name Role Phone None, Provider Unavailable Unavailable Milo Baer MD Primary Care Provider [phone] Raffi Merida DO Primary Care Provider [phone] Encounter Details Date Type Department Care Team (Late st Contact Info) Description 07/15/2023 Lab Requisition [facility] Pathology & Laboratory Medicine - [facility] [address] [place] [address] Outr Resulting Lab, Provider Social History Tobacco [...] Date/Time Associated Diagnosis Comments SYPHILIS SEROLOGY Routine 07/15/2023 9:15 EST documented in this encounter Results * SYPHILIS SEROLOGY (07/15/2023 9:15 EST) Syphilis Serology Negative Negative 07/16/2023 11:42 EST [facility] Blood VENOUS BLOOD / Unknown 07/15/2023 9:15 EST 07/15/2023 17:04 EST us Provider Outr Resulting Lab IMMUNOLOGY AND SEROL OGY ORDERABLES Final Result [facility] [address] [place] [address] documented in this encounter Visit Diagnoses Not on filedocumented in this encounter Additional Health Concerns Infection Onset Date Last Indicated Resolved Time MRSA Comment:05/24/2024 +MRSA blood cultures [facility] Pos blood 05/26/24, 05/27/24, 05/29/24, 05/30/24, 06/01/24, 06/03/24, 06/04/24, 06/05/24 - Radha Greenberg 06/08/2024 2024 06/05/2024 documented as of this encounter Care Teams Water Resource Engineer Relationship Specialty Start Date End Date Milo Baer MD [address] [place] [phone] PCP - General Family Medicine - Primary Care 02/17/23 05/25/24 Raffi Merida DO [address] [place] [phone] PCP - General Family Medicine - Primary Care 05/26/24 None, Provider 02/05/20 05/25/24 documented as of this encounter
--- OUTSIDE RECORDS SUMMARY | 2024-07-02 14:33 | XMS_ITS | Encounter Summary ---
Author Organization [facility] Address [address] [place] [address] Care Team Providers Care Residential Support Worker Name Role Phone None, Provider Unavailable Unavailable Milo Baer MD Primary Care Provider [phone] Encounter Details Date Type Department Care Team (Latest Contact Info) Description 05/24/2024 Hospital Encounter [facility] Secondary [place] Discharge Disposition: Home [...] Nelly Felix RN documented in this encounter Medications at [...] Name Priority Date/Time Associated Diagnosis Comments XR OUTSIDE IMAGES CHEST STAT 05/24/2024 9:23 EST documented in this encounter Results * XR OUTSIDE IMAGES CHEST (05/24/2024 9:23 EST) Narrative 2024 9:23 EST This is a non-reportable exam. us External Imaging IMG OTHER IMAGING ORDERABLES Fi nal Result documented in this encounter Visit Diagnoses Not on filedocumented in this encounter Care Teams Residential Support Worker Relationship Specialty Start Date End Date Milo Baer MD [address] [place] [phone] PCP - General Family Medicine - Primary Care 02/17/23 05/25/24 None, Provider 02/05/20 05/25/24 documented as of this encounter
--- OUTSIDE RECORDS SUMMARY | 2024-07-02 14:33 | XMS_ITS | Encounter Summary ---
Author Organization [facility] Address [address] [place] [address] Care Team Providers Care Professor Of Architecture Name Role Phone None, Provider Unavailable Unavailable Milo Baer MD Primary Care Provider [phone] Raffi Merida DO Primary Care Provider [phone] Encounter Details Date Type Department Care Team (Late st Contact Info) Description 05/01/2024 Lab Requisition [facility] Pathology & Laboratory Medicine - [facility] [address] [place] [address] Outr Resulting Lab, Provider Social History Tobacco [...] Date/Time Associated Diagnosis Comments SYPHILIS SEROLOGY Routine 05/01/2024 12: 15 EDT documented in this encounter Results * SYPHILIS SEROLOGY (05/01/2024 12:15 EDT) Syphilis Serology Negative Negative 05/02/2024 10:48 EDT [facility] Blood VENOUS BLOOD / Unknown 05/01/2024 12:15 EDT 05/01/2024 21:23 EDT us Provider Outr Resulting Lab IMMUNOLOGY AND SEROL OGY ORDERABLES Final Result [facility] [address] [place] [address] documented in this encounter Visit Diagnoses Not on filedocumented in this encounter Additional Health Concerns Infection Onset Date Last Indicated Resolved Time MRSA Comment:05/24/2024 +MRSA blood cultures [facility] Pos blood 05/26/24, 05/27/24, 05/29/24, 05/30/24, 06/01/24, 06/03/24, 06/04/24, 06/05/24 - Rahda Greenberg 06/08/2024 2024 06/05/2024 documented as of this encounter Care Teams Professor Of Architecture Relationship Specialty Start Date End Date Milo Baer MD [address] [place] [phone] PCP - General Family Medicine - Primary Care 02/17/23 05/25/24 Raffi Merida DO [address] [place] [phone] PCP - General Family Medicine - Primary Care 05/26/24 None, Provider 02/05/20 05/25/24 documented as of this encounter
--- OUTSIDE RECORDS SUMMARY | 2024-07-02 14:33 | XMS_ITS | Encounter Summary ---
Author Organization [facility] Address [address] [place] [address] Care Team Providers Care Electrical Checkout Mechanic Name Role Phone None, Provider Unavailable Unavailable Milo Baer MD Primary Care Provider [phone] Raffi Merida DO Primary Care Provider [phone] Encounter Details Date Type Department Care Team (Late st Contact Info) Description 05/01/2024 Lab Requisition [facility] Pathology & Laboratory Medicine - [facility] [address] [place] [address] Outr Resulting Lab, Provider Social History Tobacco [...] ANTIBODY, 4TH GENERATION Routine 05/01/2024 12:15 EDT documented in this encounter Results * HIV 1/2 ANTIGEN AND ANTIBODY, 4TH GENERATION (05/01/2024 12:15 EDT) Pathologist [facility] HIV 1 and 2 Antibody/p24 Antigen, 4th Generation Negative Negative 05/02/2024 10:29 EDT [facility] Comment:If acute HIV-1 infec tion is suspected in a high risk patient, submit plasma specimen for HIV-1 RNA quantitation test. Blood VENOUS BLOOD / Unknown 05/01/2024 12:15 EDT 05/01/2024 22:02 EDT Narrative [facility] - 05/02/2024 10:29 EDT Fourth Generation assay performed on the Siemens Centaur XPT. us Provider Outr Resulting Lab IMMUNOLOGY AND SEROL OGY ORDERABLES Final Result [facility] [address] [place], [place] [id number] documented in this encounter Visit Diagnoses Not on filedocumented in this encounter Additional Health Concerns Infection Onset Date Last Indicated Resolved Time MRSA Comment:05/24/2024 +MRSA blood cultures [facility] Pos blood 05/26/24, 05/27/24, 05/29/24, 05/30/24, 06/01/24, 06/03/24, 06/04/24, 06/05/24 - Radha DiMasi 06/08/2024 2024 06/05/2024 documented as of this encounter Care Teams Electrical Checkout Mechanic Relationship Specialty Start Date End Date Milo Baer MD [address] [place] [phone] PCP - General Family Medicine - Primary Care 02/17/23 05/25/24 Raffi Merida DO [address] [place] [phone] PCP - General Family Medicine - Primary Care 05/26/24 None, Provider 02/05/20 05/25/24 documented as of this encounter
--- OUTSIDE RECORDS SUMMARY | 2024-07-02 14:33 | XMS_ITS | Encounter Summary ---
Author Organization [facility] Address [address] [place] [address] Care Team Providers Care Academic Adviser Name Role Phone None, Provider Primary Care Provider Unavailabl e None, Provider Unavailable Unavailable Milo Baer MD Primary Care Provider [phone] Raffi Merida DO Primary Care Provider [phone] Encounter Details Date Type Department Care Team (Late st Contact Info) Description 07/31/2020 Results Only Imaging [facility] Radiology Results [address] [place] [address] Henry Moyer PA-C [address] [place] [phone] Social History Tobacco Use Types Packs/Day Years [...] No 02/02/2020 23:00 Nelly Marcum RN * Are you blind or do [...] Name Priority Date/Time Associated Diagnosis Comments CT SINUSES WO CONTRAST 07/31/2020 19:47 EST documented in this encounter Results * CT SINUSES WO CONTRAST (07/31/2020 19:47 EST) Anatomical Region Laterality Modality Head Computed Tomogra phy 07/31/2020 19:4 7 EST Narrative 07/31/2020 19:47 EST ? EXAM: CAT SCAN/SINUSES WITHOUT CONTRAST ?? EX. D/ (1925) ? CLINICAL INFORMATION: ? 8 months of prurulent nasal discharge ? PROCEDURE INFORMATION: ? Exam: CT Maxillofacial Without Contrast, Sinus ? Exam date and time: 07/31/2020 18:32 ? Age: 40 years old ? Clinical indication: Other: Nasal discharge; Additional info: 8 ? months of prurulent nasal discharge ? TECHNIQUE: ? Imaging protocol: CT Maxillofacial without contrast. Focus on ? the sinuses. ? Radiation optimization: All CT scans at this facility use at ? least one of these dose optimization techniques: automated ? exposure control; mA and/or kV adjustment per patient size ? (includes targeted exams where dose is matched to clinical ? indication); or iterative reconstruction. ? COMPARISON: ? CT SINUSES WITHOUT CONTRAST 12/24/2019 16:02 ? FINDINGS: ? Frontal sinuses: The left frontal sinus is hypoplastic. The ? right frontal sinus is well aerated. ? Ethmoid air cells: Trace mucosal thickening in the ethmoid air ? cells and right maxillary sinus. No air-fluid levels. ? Sphenoid sinuses: No significant mucosal disease. No air-fluid ? levels. ? Maxillary sinuses: The maxillary sinus appears hypoplastic ? bilaterally. ? Nasal cavity/Septum: The nasal cavity is well aerated with no ? significant lesions or focal fluid collection. The ostiomeatal ? unit is narrowed bilaterally, however patent. ? Orbital cavity: Normal globes with no collections or lesions. ? Bones/joints: The visualized mandible, the zygomatic arches, the ? pterygoid plates and sphenoid bone are intact. Some sclerosis ? along the nasal bone bilaterally may reflect old healed ? fractures. No acute fracture or displacement. Small focus of ? ground-glass attenuation in the lateral aspect of left maxilla, ? lateral to the sinus. Benign or indolent morphology, questioning ? a small focus of incidental fibrous dysplasia. ? Soft tissues: Unremarkable. ? Dental: Periapical lucency, right paracentral maxillary incisor ? tooth. Severe caries, right mandibular final molar tooth. ? IMPRESSION: ? 1. No acute findings. ? 2. Trace ethmoid and right maxillary mucosal thickening with no ? significant sinusitis. ? 3. The maxillary sinus appears hypoplastic bilaterally. Could be ? a congenital variant versus sequela of prior sinusitis. ? PAGE 1 ? Signed Report ? (CONTINUED) ? 4. The ostiomeatal unit is narrowed bilaterally, however patent. ? 5. Periodontal disease. ? REPORT SIGNED IN OTHER VENDOR SYSTEM 07/31/2020 ?Reported By: Nurys Koroma MD ? CC: ? Transcribed Date/Time: 07/31/2020 (1946) ? Position Description Manager: ? Printed Date/Time: 07/31/2020 (1946) ? PAGE 2 ? Signed Report ? Procedure Note Nurys Koroma MD - 07/31/2020 EXAM: CAT SCAN/SINUSES WITHOUT CONTRAST EX. D/ (1925) CLINICAL INFORMATION: 8 months of prurulent nasal discharge PROCEDURE INFORMATION: Exam: CT Maxillofacial Without Contrast, Sinus Exam date and time: 07/31/2020 18:32 Age: 40 years old Clinical indication: Other: Nasal discharge; Additional info: 8 months of prurulent nasal discharge TECHNIQUE: Imaging protocol: CT Maxillofacial without contrast. Focus on the sinuses. Radiation optimization: All CT scans at this facility use at least one of these dose optimization techniques: automated exposure control; mA and/or kV adjustment per patient size (includes targeted exams where dose is matched to clinical indication); or iterative reconstruction. COMPARISON: CT SINUSES WITHOUT CONTRAST 12/24/2019 16:02 FINDINGS: Frontal sinuses: The left frontal sinus is hypoplastic. The right frontal sinus is well aerated. Ethmoid air cells: Trace mucosal thickening in the ethmoid air cells and right maxillary sinus. No air-fluid levels. Sphenoid sinuses: No significant mucosal disease. No air-fluid levels. Maxillary sinuses: The maxillary sinus appears hypoplastic bilaterally. Nasal cavity/Septum: The nasal cavity is well aerated with no significant lesions or focal fluid collection. The ostiomeatal unit is narrowed bilaterally, however patent. Orbital cavity: Normal globes with no collections or lesions. Bones/joints: The visualized mandible, the zygomatic arches, the pterygoid plates and sphenoid bone are intact. Some sclerosis along the nasal bone bilaterally may reflect old healed fractures. No acute fracture or displacement. Small focus of ground-glass attenuation in the lateral aspect of left maxilla, lateral to the sinus. Benign or indolent morphology, questioning a small focus of incidental fibrous dysplasia. Soft tissues: Unremarkable. Dental: Periapical lucency, right paracentral maxillary incisor tooth. Severe caries, right mandibular final molar tooth. IMPRESSION: 1. No acute findings. 2. Trace ethmoid and right maxillary mucosal thickening with no significant sinusitis. 3. The maxillary sinus appears hypoplastic bilaterally. Could be a congenital variant versus sequela of prior sinusitis. PAGE 1 Signed Report (CONTINUED) 4. The ostiomeatal unit is narrowed bilaterally, however patent. 5. Periodontal disease. REPORT SIGNED IN OTHER VENDOR SYSTEM 07/31/2020 Reported By: Nurys Koroma MD CC: Transcribed Date/Time: 07/31/2020 (1946) Position Description Manager: Printed Date/Time: 07/31/2020 (1946) PAGE [address] Signed [address] ORDERABLES Final Result documented in this encounter Visit Diagnoses Not on filedocumented in this encounter Additional Health Concerns Infection Onset Date Last Indicated Resolved Time MRSA Comment:05/24/2024 +MRSA blood cultures [facility] Pos blood 05/26/24, 05/27/24, 05/29/24, 05/30/24, 06/01/24, 06/03/24, 06/04/24, 06/05/24 - Radha Greenberg 06/08/2024 2024 06/05/2024 documented as of this encounter Care Teams Academic Adviser Relationship Specialty Start Date End Date None, Provider PCP - General 02/05/20 02/16/23 Milo Baer MD [address] [place] [address] [phone] PCP - General Family Medicine - Primary Care 02/17/23 05/25/24 Raffi Merida DO [address] [place] [address] [phone] PCP - General Family Medicine - Primary Care 05/26/24 None, Provider 02/05/20 05/25/24 documented as of this encounter
--- OUTSIDE RECORDS SUMMARY | 2024-07-02 14:33 | XMS_ITS | Encounter Summary ---
Author Organization [facility] Address [address] [place] [address] Care Team Providers Care Hole Filler Name Role Phone None, Provider Unavailable Unavailable Milo Baer MD Primary Care Provider Raffi Merida DO Primary Care Provider [phone] Encounter Details Date Type Department Care Team (Late st Contact Info) Description 05/02/2024 Lab Requisition [facility] Pathology & Laboratory Medicine - [facility] [address] [place] [address] Outr Resulting Lab, Provider Social History Tobacco [...] Procedure Name Priority Date/Time Associated Diagnosis Comments QUANTIFERON MITOGEN (PERFORMABLE) Today 05/01/2024 12:15 EDT QUANTIFERON TB2 (PERFORMABLE) Today 05/01/2024 12:15 EDT QUANTIFERON TB1 (PERFORMABLE) Today 05/01/2024 12:15 EDT QUANTIFERON NIL (PERFORMABLE) Today 05/01/2024 12:15 EDT QUANTIFERON INTERPRETATION (PERFORMABLE) Today 05/01/2024 12:15 EDT QUANTIFERON TB GOLD PLUS Routine 05/01/2024 12:15 EDT documented in this encounter Results * QUANTIFERON INTERPRETATION (PERFORMABLE) (05/01/2024 12:15 EDT) Quantiferon Interpretation Negative Negative 05/03/2024 13:26 EDT [facility] Comment:No interferon-gamma response to M. tuberculosis antigens was detected. ??Infection with M. tuberculosis is unlikely. A single negative result does not exclude infection with M. tuberculosis. ??In patients at high risk for M. tuberculosis infection, a second test should be considered. TB1 Ag minus Nil 0.19 IU/ml 05/03/20 13:26 EDT [facility] TB2 Ag minus Nil 0.08 IU/mL 05/03/20 13:26 EDT [facility] Blood VENOUS BLOOD / Unknown 05/01/2024 12:15 EDT 05/03/2024 13:25 EDT us Provider Outr Resulting Lab IMMUNOLOGY AND SEROL OGY ORDERABLES Final Result Performing Organization Address City/[facility]/ZIP Co de Phone Number [facility] [address] [place] [address] * QUANTIFERON MITOGEN (PERFORMABLE) (05/01/2024 12:15 EDT) Blood VENOUS BLOOD / Unknown 05/01/2024 12:15 EDT 05/02/2024 17:14 EDT us Provider Outr Resulting Lab IMMUNOLOGY AND SEROL OGY ORDERABLES Final Result Performing Organization Address [facility]/[place]UST Co de Phone Number [facility] [address] [place] [id number] * QUANTIFERON TB2 (PERFORMABLE) (05/01/2024 12:15 EDT) Blood VENOUS BLOOD / Unknown 05/01/2024 12:15 EDT 05/02/2024 17:14 EDT us Provider Outr Resulting Lab IMMUNOLOGY AND SEROL OGY ORDERABLES Final Result Performing Organization Address City/[facility]/ZIP Co de Phone Number [facility] [address] [place] [address] * QUANTIFERON TB1 (PERFORMABLE) (05/01/2024 12:15 EDT) Blood VENOUS BLOOD / Unknown 05/01/2024 12:15 EDT 05/02/2024 17:14 EDT us Provider Outr Resulting Lab IMMUNOLOGY AND SEROL OGY ORDERABLES Final Result [facility] [address] [place] [address] * QUANTIFERON NIL (PERFORMABLE) (05/01/2024 12:15 EDT) Blood VENOUS BLOOD / Unknown 05/01/2024 12:15 EDT 05/02/2024 17:14 EDT us Provider Outr Resulting Lab IMMUNOLOGY AND SEROL OGY ORDERABLES Final Result Performing Organization Address City/[facility]/ZIP Co de Phone Number [facility] [address], [place] [address] documented in this encounter Visit Diagnoses Not on filedocumented in this encounter Additional Health Concerns Infection Onset Date Last Indicated Resolved Time MRSA Comment:05/24/2024 +MRSA blood cultures [facility] Pos blood 05/26/24, 05/27/24, 05/29/24, 05/30/24, 06/01/24, 06/03/24, 06/04/24, 06/05/24 - Radha DiMasi 06/08/2024 2024 06/05/2024 documented as of this encounter Care Teams Hole Filler Relationship Specialty Start Date End Date Milo Baer MD [address] [place] [address] [phone] PCP - General Family Medicine - Primary Care 02/17/23 05/25/24 Raffi Merida DO [address] [place] [address] [phone] PCP - General Family Medicine - Primary Care 05/26/24 None, Provider 02/05/20 05/25/24 documented as of this encounter
--- OUTSIDE RECORDS SUMMARY | 2024-07-02 14:33 | XMS_ITS | Encounter Summary ---
Author Organization [facility] Address [address] [place] [address] Care Team Providers Care Fur Blender Name Role Phone None, Provider Primary Care Provider Unavailabl e None, Provider Unavailable Unavailable Reason for Visit * Reason Comments Liver Failure [facility] with stated liver failure, dx here on the and admitted under Dr. Crook. Pt left AMA d/t underlying anxiety, its too much - referring to the dx of liver failure, HepC. Encounter Details Date Type Department Care Team (Late st Contact Info) Description 02/05/2020 14:46 EDT - 02/05/2020 18:35 EDT Emergency [facility] Emergency Department - [facility] [address], [place] [id number] Juan Johansen MD [address] [facility], [address] [place] [id number] Viral hepatitis A without hepatic coma (Primary Dx); Opioid dependence with opioid-induced disorder (HCC-CMS) Discharge Disposition: Home or Self Care Social [...] Sign Reading Time Taken Comments Blood Pressure 118/78 02/05/2020 1831 EDT Pulse 98 02/05/2020 183 EDT Temperature 36.7 ??C (98.1 ??F) 02/05/2020 1831 EDT Respiratory Rate 20 02/05/2020 1831 EDT Oxygen Saturation 100% 02/05/2020 183 EDT Inhaled Oxygen Concentration - - Weight 77.1 kg (170 lb) 02/05/2020 1315 EDT Height 175.3 cm (5' 9) 02/05/2020 1315 EDT Body Mass Index 25.1 02/05/2020 1315 EDT documented in this encounter Functional Status [...] this encounter Discharge Instructions * Discharge Instructions* Juan Johansen MD - 02/05/2020 18:13 EDT Thank you for coming to the emergency department. As we have discussed your blood work shows that you are getting better from what was likely hepatitis a the cause liver damage. I know you would liketo get treatment for opiate addiction unfortunately cannot rule you in our program with guaranteed follow- up. We have started you on a very short course of Suboxone please take 8 mg every day for thenext 3 days while you get yourself into treatment. We will not provide any more starter packs out of the emergency department. There is a small risk of having more of the withdrawal effects when you have liver disease however given that your liver appears to be getting better I think it is worth that to keep you off of any IV drugs. Please let the clinic doctors know you are recovering from hepatitis a they will need to monitor your laboratory studies. Please return to the ER for severe worsening abdominal pain high fevers persistent vomiting or any other concerns. * Attachments The following attachments cannot be sent through Care Everywhere. * Hepatitis A (Polish) * Opioid Withdrawal (Polish) documented in this encounter Medications at Time of Discharge Multivitamins with Minerals tablet Take 1 Tab by mouth daily. 07/02/2024 NAPROXEN SODIUM (ALEVE ORAL) Take by mouth. 07/02/2024 documented as of this encounter Discharge Disposition Disposition Code Departure Means Destination Home or Self Long Term documented in this encounter ED Notes * Odalis oDn RN - 02/05/2020 1708 EDT Pt states he gets freaked out needing repeat testing of his blood or most everything medical gerson is worried something is really wrong with me * Kimberly Gonzalez RN - 02/05/[address] Sanchez speaking with patient. * Juan Johansen MD - 02/05/2020 1458 EDT This patient received an evaluation and medical screening exam for emergent medical conditions at the [facility] on 02/05/2020 Scribe Attestation: This documentation is recorded by Valeria Jarrett acting as Scribe under the direction and presence of Juan Johansen MD. Juan Johansen MD: I personally performed the services recorded by the scribe in my presence. I confirm the scribe's documentation has been reviewed by me to accurately and completely record my work, treatment, procedures, and medical decision making. Chief Complaint Chief Complaint Patient presents with ??? Liver Failure Pt presents from home with stated liver failure, dx here on the and admitted under Dr. Crook. Pt left AMA d/t underlying anxiety, its too much - referring to the dx of liver failure, HepC. HPI Marcos Camejo is a 39 y.o. male with a history of jaundice and acute hepatitis A who presents to the ED for and evaluation of liver failure. Per chart review, the patient was evaluated at [facility] on02/01/20 where there was a concern for liver failure and sepsis. The patient was treated with LR, van comycin, cefepime for conern of intra-abdominal infection given fever and leukopenia. [facility] lab results had a negative Hep C antibody, Hep B antigen was negative, and Hep A antibody was positive, Hep A IGM was positive also. OSH CT showed liver lesions. He was admitted here on 02/02/20. US done here showed a benign appearing R lobe lesion. GI was consulted, who advised this episode likely to resolve without intervention. The patient left the hospital AMA. Per patient, he was admitted to the hospital on 02/02/20 for RUQ patient and was diagnosed with hepatitis A. He reports that he is back today because he left the hospital before they could finish his blood work because he had an anxiety attack. The patient notes that he is also interested in being started on Suboxone. He denies any fevers, chills, nausea, vomiting, cough, chest pain, SOB, cough, or sore throat. History was provided by: The patient and medical records. Patient's pertinent PMH, FH, and SH were reviewed and updated PRN. ROS Review of Systems Constitutional: Negative for chills and fever. HENT: Negative for sore throat. Respiratory: Negative for cough and shortness of breath. Cardiovascular: Negative for chest pain. Gastrointestinal: Negative for abdominal pain, nausea and vomiting. Genitourinary: Negative for dysuria and hematuria. Neurological: Negative for weakness and numbness. The patient???s past medical, family, and social history was reviewed and updated as needed. Allergies Allergen Reactions ??? Penicillins Hives Physical Exam Vital Signs Temp: 36.8 ??C (98.2 ??F) Temp src: Oral Pulse: 102 Resp: 18 SpO2: 100 % BP: 124/86 BP MAP: 91 mm Hg BP Device: BP Machine BP Patient Position: Sitting BP Cuff Location: Left arm O2 Device: None (Room air) Physical Exam Constitutional: He appears well-developed. HENT: Head: Normocephalic. Eyes: Pupils are equal, round, and reactive to light. Mild icterus Neck: Normal range of motion. No tracheal deviation present. No thyromegaly present. Cardiovascular: Normal rate and regular rhythm. Pulmonary/Chest: Effort normal. No respiratory distress. He has no wheezes. Abdominal: He exhibits no distension. There is tenderness (mild RUQ). There is guarding. Musculoskeletal: Normal range of motion. He exhibits no edema or deformity. Neurological: He is alert. No cranial nerve deficit. Coordination normal. Skin: Skin is warm. Capillary refill takes less than 2 seconds. Psychiatric: He has a normal mood and affect. His behavior is normal. Nursing note and vitals reviewed. Laboratory Results Labs Reviewed COMPLETE BLOOD COUNT AND DIFFERENTIAL - Abnormal Result Value Status WBC 4.80 Final RBC 4.38 Final Hemoglobin 12.8 (*) Final HCT 37.3 (*) Final MCV 85 Final MCH 29.2 Final MCHC 34.3 Final RDW-CV 17.2 (*) Final RDW-SD 50.6 (*) Final PLT 423 (*) Final MPV 12.2 Final Neutrophils 60.5 Final Lymphocytes 26.0 Final Monocytes 8.1 Final Eosinophils 4.4 Final Basophils 0.4 Final Immature Grans 0.6 Final Absolute Neutrophils 2.90 Final Absolute Lymphocytes 1.25 Final Absolute Monocytes 0.39 Final Absolute Eosinophils 0.21 Final Absolute Basophils 0.02 Final Absolute Immature Grans 0.03 Final Type of Differential: Auto Final COMPREHENSIVE METABOLIC PANEL (CMP) - Abnormal Sodium 137 Final Potassium 4.1 Final Chloride 102 Final CO2 Total 25 Final Glucose 86 Final BUN 13 Final Creatinine 0.76 Final eGFR 115 Final Total Protein 8.7 (*) Final Albumin 3.9 Final Alkaline Phosphatase 280 (*) Final AST 313 (*) Final ALT 1,170 (*) Final Bilirubin, Total 1.9 (*) Final Calcium 9.4 Final Calculated Calcium 9.5 Final PTT - Abnormal PTT 40 (*) Final PROTIME - Normal I.N.R. 0.9 Final Pro Time 10.8 Final Narrative: Moderate Intensity Coumadin INR = 2.0-3.0 Adjustments in anticoagulant therapy dose should be based on the INR and NOT on the Protime. Procedures Procedures MDM MDM Number of Diagnoses or Management Options Opioid dependence with opioid-induced disorder (HCC-CMS): Viral hepatitis A without hepatic coma: Diagnosis management comments: 39-year-old male history of substance use disorder with current active intravenous drug use. He was recently admitted to the hospital with acute liver injury secondary to what was later deemed to be hepatitis A. He signed out AMA and returns today to be checked out . He is still having some right upper quadrant pain but no nausea no vomiting. He states he is actually improved since he left the hospital. Laboratory studies also show clinical improvement in his transaminases and normalization of the synthetic function of his liver with a downtrending bilirubin. At this time I believe he is likely recovering from hepatitis A. I do not believe he needs to be read mitted to the hospital for medical reasons. Patient is actively seeking treatment for his opiate addiction. Unfortunately he is not able to be enrolled in ibuprofen study as he has liver dysfunction which precludes him. While there certainly is a small risk of starting buprenorphine in the setting of liver dysfunction I believe the risk of him using IV heroin probably outweighs this. He was givena starter pack of buprenorphine to be used for the next 3 days to help control his cravings and he was given information about check-in at clinics in the [facility]. Return precautions were given will discharge. ED Course A medical screening was performed. The patient is a 39 y.o. male with a history of acute hepatitis A who presents to the ED for ane evaluation of his previous diagnosis of Hepatitis A during admission here on 02/02/20. 1500 - I discussed the case with the Buprenorphine massage coordinator to determine if the patient was eligible. They discussed with me the patient was not eligible secondary to his liver disease. The patient was hydrated with 500 mL of IV LR. 1544 - I discussed the case with [facility] who agreed to discuss Suboxone alternative studies that the patient can be a part of. Patient had labs that were reviewed independently by myself, significant for anemic with an H and Hof 12.8 and HCT of 37.3. Normal WBC. CMP was significant for ALKP of 280, AST of 313, ALT of 1170, and TBIL of 1.9. Normal INR and Protime. PTT elevated at 40. 1805 - I discussed with the patient that he had improvement in all his LFTs. I believed at this time he was stable for discharge home. He was discharged home with a starter pack for suboxone. I discussed with the patient that we would not be able to enroll him in the study here but he should try toenroll in a study elsewhere. He was advised that we would not provide any more starter packs. Clinical Impression Final diagnoses: Viral hepatitis A without hepatic coma Opioid dependence with opioid-induced disorder (HCC-CMS) Disposition Discharged The patient's pain was managed to an adequate level weighing risk vs. Benefit of further medications. At the end of my care of this patient, the patient's pain was 0 on a zero to ten scale. Any further pain treatment will be at the discretion of the provider following up with the patient based on their clinical assessment. The patient's condition at the end of my care: Stable * Haley Edmond, DAVID - 02/05/2020 1313 EDT Chief Complaint Patient presents with ??? Liver Failure Pt presents from home with stated liver failure, dx here on the and admitted under Dr. Crook. Pt left AMA d/t underlying anxiety, its too much - referring to the dx of liver failure, HepC. BP 124/86 (BP Cuff Location: Left arm, BP Patient Position: Sitting) Pulse 102 Temp 36.8 ??C (98.2 ??F) (Oral) Resp 18 Ht 175.3 cm (69) Wt 77.1 kg (170 lb) SpO2 100% BMI 25.10 kg/m?? documented in this encounter Plan of Treatment Not on file documented as of this encounter Procedures Procedure Name Priority Date/Time Associated Diagnosis Comments PTT STAT 02/05/2020 17:17 EDT PROTIME STAT 02/05/2020 17:17 EDT COMPREHENSIVE METABOLIC PANEL (CMP) STAT 02/05/2020 17:17 EDT COMPLETE BLOOD COUNT AND DIFFERENTIAL STAT 02/05/2020 15:24 EDT documented in this encounter Results * (ABNORMAL) PTT (02/05/2020 17:17 EDT) PTT 40(H) 26 - 37 secs 02/05/2020 18:07 EDT [facility] Blood VENOUS BLOOD / Unknown Venipuncture / Unknown 02/05/2020 17:17 EDT 02/05/2020 17:20 EDT us Juan Johansen MD HEMATOLOGY & PF4 ORDERABLES F inal Result Performing Organization Address City/State/[facility] Co de Phone Number [facility] [address] [place] [address] * PROTIME (02/05/2020 17:17 EDT) I.N.R. 0.9 0.9 - 1.1 Ratio 02/05/2020 18:07 EDT [facility] Pro Time 10.8 10.3 - 13.4 secs 02/05/2020 18:07 EDT [facility] Blood VENOUS BLOOD / Unknown Venipuncture / Unknown 02/05/2020 17:17 EDT 02/05/2020 17:20 EDT Narrative [facility] - 02/05/2020 18:07 EDT Moderate Intensity Coumadin INR = 2.0-3.0 Adjustments in anticoagulant therapy dose should be based on the INR and NOT on the Protime. us Juan Johansen MD HEMATOLOGY & PF4 ORDERABLES F inal Result [facility] [address] [place] [address] * (ABNORMAL) COMPREHENSIVE METABOLIC PANEL (CMP) (02/05/2020 17:17 EDT) Sodium 137 136 - 145 mEq/L 02/05/2020 17:56 [facility] Potassium 4.1 3.5 - 5.0 mEq/L 02/05/2020 17:56 [facility] Chloride 102 96 - 110 mEq/L 02/05/2020 17:56 [facility] CO2 Total 25 22 - 32 mEq/L 02/05/2020 17:56 [facility] Glucose 86 70 - 100 mg/dL 02/05/2020 17:56 [facility] BUN 13 10 - 26 mg/dL 02/05/2020 17:56 [facility] Creatinine 0.76 0.66 - 1.25 mg/dL 02/05/2020 17:56 [facility] eGFR 115 >60 mL/min/1. 73m2 02/05/2020 17:56 [facility] Comment:eGFR calculated woody smith CKD-EPI equation for non- Americans. Multiply eGFR by 1.16 for patients. Total Protein 8.7(H) 6.3 - 8.2 g/dL 02/05/2020 17:56 [facility] Albumin 3.9 3.4 - 4.9 g/dL 02/05/2020 17:56 [facility] Alkaline Phosphatase 280(H) 38 - 126 U/L 02/05/2020 17:56 [facility] AST 313(H) 15 - 46 U/L 02/05/2020 17:56 [facility] ALT 1,170(H) <50 U/L 02/05/2020 17:56 [facility] Bilirubin, Total 1.9(H) <1.4 mg/dL 02/05/2020 17:56 EDT [facility] Calcium 9.4 8.5 - 10.5 mg/dL 02/05/2020 17:56 T [facility] Calculated Calcium 9.5 8.5 - 10.5 mg/dL 02/05/2020 17:56 [facility] Blood VENOUS BLOOD / Unknown Venipuncture / Unknown 02/05/2020 17:17 EDT 02/05/2020 17:20 EDT us Juan Johansen MD CHEMISTRY & BLOOD GAS ORDERAB LES Final Result [facility] [address] [place] [address] * (ABNORMAL) COMPLETE BLOOD COUNT AND DIFFERENTIAL (02/05/2020 15:24 EDT) WBC 4.80 4.00 - 10.40 K/cmm 02/05/2020 16:34 [facility] RBC 4.38 4.36 - 5.78 M/cmm 02/05/2020 16:34 [facility] Hemoglobin 12.8(L) 13.8 - 17.3 gm/dL 02/05/2020 16:34 [facility] HCT 37.3(L) 39.5 - 50.2 % 02/05/2020 16:34 [facility] MCV 85 81 - 95 fl 02/05/2020 16:34 [facility] MCH 29.2 27.6 - 33.0 pg 02/05/2020 16:34 [facility] MCHC 34.3 32.8 - 36.4 gm/dL 02/05/2020 16:34 [facility] RDW-CV 17.2(H) <14.2 % 02/05/2020 16:34 [facility] RDW-SD 50.6(H) <46.0 fl 02/05/2020 16:34 [facility] PLT 423(H) 141 - 377 K/cmm 02/05/2020 16:34 [facility] MPV 12.2 9.5 - 12.7 fl 02/05/2020 16:34 [facility] % Neutrophils 60.5 % 02/05/2020 16:34 [facility] % Lymphocytes 26.0 % 02/05/2020 16:34 [facility] % Monocytes 8.1 % 02/05/2020 16:34 [facility] % Eosinophils 4.4 % 02/05/2020 16:34 [facility] % Basophils 0.4 % 02/05/2020 16:34 [facility] % Immature Grans 0.6 % 02/05/20 20 16:34 [facility] Absolute Neutrophils 2.90 2.20 - 8.85 K/cmm 02/05/2020 16:34 [facility] Absolute Lymphocytes 1.25 1.09 - 3.30 K/cmm 02/05/2020 16:34 [facility] Absolute Monocytes 0.39 0.10 - 0.80 K/cmm 02/05/2020 16:34 [facility] Absolute Eosinophils 0.21 0.03 - 0.61 K/cmm 02/05/2020 16:34 [facility] ABS Basophils 0.02 0.01 - 0.11 K/cmm 02/05/2020 16:34 [facility] Absolute Immature Grans 0.03 0.00 - 0.06 K/cmm 02/05/2020 16:34 [facility] Type of Differential: Auto 02/05/2020 16:34 [facility] Blood VENOUS BLOOD / Unknown Venipuncture / Unknown 02/05/2020 15:24 EDT 02/05/2020 15:31 EDT us Juan Johansen MD PACKAGES & DNA PROBE ORDERABL ES Final Result [facility] [address] [place] [address] documented in this encounter Visit Diagnoses Diagnosis Viral hepatitis A without hepatic coma- Primary Viral hepatitis A without mention of hepatic coma Opioid dependence with opioid-induced disorder (HCC-CMS) Unspecified drug-induced mental disorder documented in this encounter Administered Medications Inactive Administered Medications - up to 3 most recent administrations Medication Order MAR Action Action Date Dose Rate Site buprenorphine-naloxone (SUBOXONE) 2 mg-0.5 mg sublingual film - Starter Pack 1 Package, sublingual, Once (Without Time Specified), 1 dose, Starting on Wed02/05/20 at 1812, Until Wed02/05/20 at 1833, Authorized Prescriber? Yes, I am an authorized prescriber of Suboxone, Please enter your individual (non-hospital) [facility] #: [id number], STAT Given 02/05/2020 18:33 EDT 1 Package lactated ringers BOLUS 500 mL 500 mL, intravenous, NOW X1, 1 dose, On Wed02/05/20 at 1500, STAT New Bag 02/05/2020 15:39 EDT 500 mL documented in this encounter Active and Recently Administered Medications Times are shown in EDT. Scheduled Medication Order 02/03/2020 02/04/2020 02/05/2020 buprenorphine-naloxone (SUBOXONE) 2 mg-0.5 mg sublingual film - Starter Pack (COMPLETED) 1 Package, sublingual, Once (Without Time Specified), 1 dose, Starting on Wed02/05/20 at 1812, Until Wed02/05/20 at 1833, Authorized Prescriber? Yes, I am an authorized prescriber of Suboxone, Please enter your individual (non-hospital) [facility] #: [id number], STAT 1833 (Given - Provid er: Odalis Don RN) lactated ringers BOLUS 500 mL (COMPLETED) 500 mL, intravenous, NOW X1, 1 dose, On Wed02/05/20 at 1500, STAT 1539 (New Bag - Prov ider: Odalis Don RN) documented in this encounter Care Teams Fur Blender Relationship Specialty Start Date End Date None, Provider PCP - General 02/05/20 02/16/23 None, Provider 02/05/20 05/25/24 documented as of this encounter
--- OUTSIDE RECORDS SUMMARY | 2024-07-02 14:33 | XMS_ITS | Encounter Summary ---
Author Organization [facility] Address [address] [place] [address] Care Team Providers Care Felt Dyeing Machine Tender Name Role Phone None, Provider Primary Care Provider Unavailabl e None, Provider Unavailable Unavailable Milo Baer MD Primary Care Provider Raffi Merida DO Primary Care Provider [phone] Encounter Details Date Type Department Care Team (Late st Contact Info) Description 01/12/2023 Lab Requisition [facility] Pathology & Laboratory Medicine - [facility] [address] [place] [address], [place] [address] Outr Resulting Lab, Provider Social History Tobacco [...] Date of Assessment Author No 08/05/2022 3:43 Angelic Hudson RN * Are you blind or do [...] Procedure Name Priority Date/Time Associated Diagnosis Comments FENTANYL SCREEN WITH REFLEX TO CONFIRMATION, U Routine 01/11/2023 22:30 EDT FENTANYL AND METABOLITE CONFIRMATION PANEL Today 01/11/2023 22:30 EDT documented in this encounter Results * (ABNORMAL) FENTANYL AND METABOLITE CONFIRMATION PANEL (01/11/2023 22:30 EDT) Fentanyl Confirmation >40(A) <2 ng/mL 01/14/2023 12:12 EDT [facility] Norfentanyl Confirmation >200(A) <10 ng/mL 01/14/2023 12:12 EDT [facility] Urine URINE / Unknown 01/11/2023 2 2:30 EDT 01/12/2023 21:25 EDT [facility] - 01/14/2023 12:12 EDT Testing performed by: [facility] [address] [place] [address], [facility] [address] [address] Assistant Director Of Security: Donn Noble MD; CLIA # [id number] Provider Outr Resulting Lab GEN LAB UNIT COLLECT ORDERABLES Final Result Performing Organization Address [facility] Co de Phone Number [facility] [address] [place] [address], [facility] [address] [phone] * (ABNORMAL) FENTANYL SCREEN WITH REFLEX TO CONFIRMATION, U (01/11/2023 22:30 EDT) Fentanyl Screen, U Positive(A ) <1 ng/mL 01/14/2023 12:12 EDT [facility] Urine URINE / Unknown 01/11/2023 2 2:30 EDT 01/12/2023 21:25 EDT Narrative [facility] - 01/14/2023 12:12 EDT Testing performed by: [facility] [address] [place] [address], [facility] [address] [address] Assistant Director Of Security: Donn Noble MD; CLIA # [id number] Provider Outr Resulting Lab URINALYSIS ORDERABLE S Final Result Performing Organization Address [facility] Co de Phone Number [facility] [address] [place] [address] documented in this encounter Visit Diagnoses Not on filedocumented in this encounter Additional Health Concerns Infection Onset Date Last Indicated Resolved Time MRSA Comment:05/24/2024 +MRSA blood cultures [facility] Pos blood 05/26/24, 05/27/24, 05/29/24, 05/30/24, 06/01/24, 06/03/24, 06/04/24, 06/05/24 - Radha DiMasi 06/08/2024 2024 06/05/2024 documented as of this encounter Care Teams Felt Dyeing Machine Tender Relationship Specialty Start Date End Date None, Provider PCP - General 02/05/20 02/16/23 Milo Baer MD [address] [place], [place] [phone] PCP - General Family Medicine - Primary Care 02/17/23 05/25/24 Raffi Merida DO [address] [place] [phone] PCP - General Family Medicine - Primary Care 05/26/24 None, Provider 02/05/20 05/25/24 documented as of this encounter
--- OUTSIDE RECORDS SUMMARY | 2024-07-02 14:33 | XMS_ITS | Encounter Summary ---
Author Organization [facility] Address [address] [place] [address] Care Team Providers Care Electronic Repair Troubleshooter Name Role Phone None, Provider Primary Care Provider Unavailabl e None, Provider Unavailable Unavailable Encounter Details Date Type Department Care Team (Latest Contact Info) Description 08/05/2022 Travel Social History Tobacco Use Types Packs/Day [...] suspected to have Coronavirus/COVID-19? No / Unsure 08/05/2022 3:46 EST documented as of this encounter Functional Status [...] on filedocumented in this encounter Care Teams Electronic Repair Troubleshooter Relationship Specialty Start Date End Date None, Provider PCP - General 02/05/20 02/16/23 None, Provider 02/05/20 05/25/24 documented as of this encounter
--- OUTSIDE RECORDS SUMMARY | 2024-07-02 14:33 | XMS_ITS | Encounter Summary ---
Author Organization [facility] Address [address] [place] [address] Care Team Providers Care Analytical Laboratory Technician Name Role Phone None, Provider Unavailable Unavailable Milo Baer MD Primary Care Provider [phone] Raffi Merida DO Primary Care Provider [phone] Encounter Details Date Type Department Care Team (Late st Contact Info) Description 05/17/2023 Lab Requisition [facility] Pathology & Laboratory Medicine - [facility] [address] [place] [address] Outr Resulting Lab, Provider Social History Tobacco [...] Procedure Name Priority Date/Time Associated Diagnosis Comments OVA/PARASITE EXAM Routine 05/16/2023 8:12 EDT documented in this encounter Results * OVA/PARASITE EXAM (05/16/2023 8:12 EDT) Parasite No ova and parasites seen. 05/18/2023 12:02 EDT [facility] Feces SPECIMEN FROM RECTUM / Unknown 05/16/2023 8:12 EDT 05/17/2023 22:35 EDT Narrative [facility] - 05/18/2023 12:02 EDT (If Cryptosporidium, Cyclospora, or Microsporidium are suspected, specific tests must be requested.) Single negative specimen does not rule out the possibility of a parasitic infection. us Provider Outr Resulting Lab MICROBIOLOGY - GENER AL ORDERABLES Final Result [facility] [address] [place] [address] documented in this encounter Visit Diagnoses Not on filedocumented in this encounter Additional Health Concerns Infection Onset Date Last Indicated Resolved Time MRSA Comment:05/24/2024 +MRSA blood cultures [facility] Pos blood 05/26/24, 05/27/24, 05/29/24, 05/30/24, 06/01/24, 06/03/24, 06/04/24, 06/05/24 - Radha DiMasi 06/08/2024 2024 06/05/2024 documented as of this encounter Care Teams Analytical Laboratory Technician Relationship Specialty Start Date End Date Milo Baer MD [address] [place] [phone] PCP - General Family Medicine - Primary Care 02/17/23 05/25/24 Raffi Merida DO [address] [place] [phone] PCP - General Family Medicine - Primary Care 05/26/24 None, Provider 02/05/20 05/25/24 documented as of this encounter
--- OUTSIDE RECORDS SUMMARY | 2024-07-02 14:33 | XMS_ITS | Encounter Summary ---
Author Organization [facility] Address [address] [place] [address] Care Team Providers Care Chiropractic Neurologist Name Role Phone None, Provider Primary Care Provider Unavailabl e None, Provider Unavailable Unavailable Milo Baer MD Primary Care Provider [phone] Raffi Merida DO Primary Care Provider [phone] Encounter Details Date Type Department Care Team (Late st Contact Info) Description 08/09/2020 Lab Requisition [facility] Pathology & Laboratory Medicine - [facility] [address] [place], [place] [id number] Outr Resulting Lab, Provider Social History Tobacco [...] EDNelly Ya RN * Do you have difficulty dressing [...] 1/2 ANTIGEN AND ANTIBODY, 4TH GENERATION Routine 08/09/2020 11:46 EST documented in this encounter Results * HIV 1/2 ANTIGEN AND ANTIBODY, 4TH GENERATION (08/09/2020 11:46 EST) HIV 1 and 2 Antibody/p24 Antigen, 4th Generation Negative Negative 08/12/2020 11:31 EST [facility] Comment: If acute HIV-1 infection is suspected in a high risk ??patient, submit plasma specimen for HIV-1 RNA quantitation test. Fourth Generation assay performed on the Siemens Centaur. Blood VENOUS BLOOD / Unknown 08/09/2020 11:46 EST 08/09/2020 21:42 EST us Provider Outr Resulting Lab IMMUNOLOGY AND SEROL OGY ORDERABLES Final Result [facility] [address] [place] [address] documented in this encounter Visit Diagnoses Not on filedocumented in this encounter Additional Health Concerns Infection Onset Date Last Indicated Resolved Time MRSA Comment:05/24/2024 +MRSA blood cultures [facility] Pos blood 05/26/24, 05/27/24, 05/29/24, 05/30/24, 06/01/24, 06/03/24, 06/04/24, 06/05/24 - Radha Wakefieldasi 06/08/2024 2024 06/05/2024 documented as of this encounter Care Teams Chiropractic Neurologist Relationship Specialty Start Date End Date None, Provider PCP - General 02/05/20 02/16/23 Milo Baer MD [address] [place] [phone] PCP - General Family Medicine - Primary Care 02/17/23 05/25/24 Raffi Merida DO [address] [place] [phone] PCP - General Family Medicine - Primary Care 05/26/24 None, Provider 02/05/20 05/25/24 documented as of this encounter
--- OUTSIDE RECORDS SUMMARY | 2024-07-02 14:33 | XMS_ITS | Encounter Summary ---
Author Organization [facility] Address [address] [place] [address] Care Team Providers Care Admissions Director Name Role Phone None, Provider Unavailable Unavailable Milo Baer MD Primary Care Provider [phone] Raffi Merida DO Primary Care Provider [phone] Encounter Details Date Type Department Care Team (Late st Contact Info) Description 07/16/2023 Lab Requisition [facility] Pathology & Laboratory Medicine - [facility] [address] [place] [address] Outr Resulting Lab, Provider Social History Tobacco [...] Associated Diagnosis Comments QUANTIFERON MITOGEN (PERFORMABLE) Today 07/15/2023 9:50 EST QUANTIFERON TB2 (PERFORMABLE) Today 07/15/2023 9:50 EST QUANTIFERON TB1 (PERFORMABLE) Today 07/15/2023 9:50 EST QUANTIFERON NIL (PERFORMABLE) Today 07/15/2023 9:50 EST QUANTIFERON INTERPRETATION (PERFORMABLE) Today 07/15/2023 9:50 EST QUANTIFERON TB GOLD PLUS Routine 07/15/2023 9:50 EST documented in this encounter Results * QUANTIFERON INTERPRETATION (PERFORMABLE) (07/15/2023 9:50 EST) [facility] Quantiferon Interpretation Negative Negative 07/19/2023 11:27 EST [facility] Comment:No interferon-gamma response to M. tuberculosis antigens was detected. ??Infection with M. tuberculosis is unlikely. A single negative result does not exclude infection with M. tuberculosis. ??In patients at high risk for M. tuberculosis infection, a second test should be considered. TB1 Ag minus Nil 0.08 IU/ml 07/19/19 11:27 EST [facility] TB2 Ag minus Nil 0.14 IU/mL 07/19/19 11:27 EST [facility] Blood VENOUS BLOOD / Unknown 07/15/2023 9:50 EST 07/19/2023 11:18 EST Narrative [facility] - 07/19/2023 11:27 EST Results were obtained with the Qiagen QuantiFERON-TB Gold Plus CLIA. New platform in use 03/26/2021 us Provider Outr Resulting Lab IMMUNOLOGY AND SEROL OGY ORDERABLES Final Result Performing Organization Address [facility] Phone Number [facility] [address] [place] [address] * QUANTIFERON MITOGEN (PERFORMABLE) (07/15/2023 9:50 EST) Blood VENOUS BLOOD / Unknown 07/15/2023 9:50 EST 07/16/2023 19:31 EST us Provider Outr Resulting Lab IMMUNOLOGY AND SEROL OGY ORDERABLES Final Result Performing Organization Address [facility] Co de Phone Number [facility] [address] [place] [address] * QUANTIFERON TB2 (PERFORMABLE) (07/15/2023 9:50 EST) Blood VENOUS BLOOD / Unknown 07/15/2023 9:50 EST 07/16/2023 19:31 EST us Provider Outr Resulting Lab IMMUNOLOGY AND SEROL OGY ORDERABLES Final Result Performing Organization Address [facility] Co de Phone Number [facility] [address] [place] [address] * QUANTIFERON TB1 (PERFORMABLE) (07/15/2023 9:50 EST) Blood VENOUS BLOOD / Unknown 07/15/2023 9:50 EST 07/16/2023 19:31 EST us Provider Outr Resulting Lab IMMUNOLOGY AND SEROL OGY ORDERABLES Final Result Performing Organization Address [facility] Co de Phone Number [facility] [address] [place] [address] * QUANTIFERON NIL (PERFORMABLE) (07/15/2023 9:50 EST) Blood VENOUS BLOOD / Unknown 07/15/2023 9:50 EST 07/16/2023 19:31 EST us Provider Outr Resulting Lab IMMUNOLOGY AND SEROL OGY ORDERABLES Final Result Performing Organization Address [facility] Co de Phone Number [facility] [address] [place] [address] documented in this encounter Visit Diagnoses Not on filedocumented in this encounter Additional Health Concerns Infection Onset Date Last Indicated Resolved Time MRSA Comment:05/24/2024 +MRSA blood cultures [facility] Pos blood 05/26/24, 05/27/24, 05/29/24, 05/30/24, 06/01/24, 06/03/24, 06/04/24, 06/05/24 - Radha DiMasi 06/08/2024 2024 06/05/2024 documented as of this encounter Care Teams Admissions Director Relationship Specialty Start Date End Date Milo Baer MD [address] [place] [phone] PCP - General Family Medicine - Primary Care 02/17/23 05/25/24 Raffi Merida DO [address] [place] [phone] PCP - General Family Medicine - Primary Care 05/26/24 None, Provider 02/05/20 05/25/24 documented as of this encounter
--- OUTSIDE RECORDS SUMMARY | 2024-07-02 14:33 | XMS_ITS | Encounter Summary ---
Author Organization [facility] Address [address] [place] [address] Care Team Providers Care Is Analyst Name Role Phone None, Provider Unavailable Unavailable Milo Baer MD Primary Care Provider [phone] Reason for Referral * (Routine/Next Available) - Receiving Office to Obtain Authorization Specialty Diagnoses / Procedures Referred By Contac t Referred To Contact Procedures CT OUTSIDE IMAGES HEAD Unknown, ProviderMD Referral ID Status Reason Start Date Expiration Date Visits Requested Visits Authorized [id number] Receiving Office to Obtain Authorization 05/25/2024 1 1 Reason for Visit * (Routine/Next Available) - Receiving Office to Obtain Authorization Specialty Diagnoses / Procedures Referred By Contac t Referred To Contact Procedures CT OUTSIDE IMAGES HEAD Unknown, ProviderMD Referral ID Status Reason Start Date Expiration Date Visits Requested Visits Authorized [id number] Receiving Office to Obtain Authorization 05/25/2024 1 1 Encounter Details Date Type Department Care Team (Latest Contact Info) Description 05/25/2024 21:56 EST - 05/25/2024 23:59 EST Hospital Encounter [facility] Secondary Reads [place] Discharge Disposition: Home or Self Care Social History Tobacco Use Types Packs/Day Years Used Date Smoking Tobacco: Every Day Cigarettes 1 15 Smokeless Tobacco: Never Alcohol Use Standard Drinks/Week Comments Never 0 (1 standard drink = 0.6 oz pur e alcohol) [facility] Utilities Answer Date Recorded In the past 12 months has [employer] electric, gas, oil, or water company threatened [...] any time in the past 12 m [facility], were you homeless or living in a halfway (including now)? No 2024 Interpersonal Safety Answer [...] Nelly Marcum RN documented in this encounter Medications at [...] Name Priority Date/Time Associated Diagnosis Comments CT OUTSIDE IMAGES HEAD Routine 05/25/2024 21:57 EST documented in this encounter Results * CT OUTSIDE IMAGES HEAD (05/25/2024 21:57 EST) Narrative 05/25/2024 21:57 EST This is a non-reportable exam. us Provider Unknown MD MOONEY OTHER IMAGING ORDERABLES Final Result documented in this encounter Visit Diagnoses Not on filedocumented in this encounter Care Teams Is Analyst Relationship Specialty Start Date End Date Milo Baer MD [address] [place] [phone] PCP - General Family Medicine - Primary Care 02/17/23 05/25/24 None, Provider 02/05/20 05/25/24 documented as of this encounter
--- OUTSIDE RECORDS SUMMARY | 2024-07-02 14:33 | XMS_ITS | Encounter Summary ---
Author Organization [facility] Address [address] [place] [address] Care Team Providers Care Manager Of Creative Services Name Role Phone None, Provider Primary Care Provider Unavailabl e None, Provider Unavailable Unavailable Reason for Visit * Reason Comments Headache Encounter Details Date Type Department Care Team (Late st Contact Info) Description 08/05/2022 3:38 EST - 08/05/2022 4:00 EST Emergency [facility] Emergency Department [address] [place] [address] Alycia Pritchett MD [address] [place] [address] Nasal congestion with rhinorrhea (Primary Dx) Discharge Disposition: Home or Self [...] Recorded In the last 10 days, have michael aguirre been in contact with someone who was confirmed or suspected to have Coronavirus/COVID-19? No / Unsure 08/05/2022 3:46 EST documented as of this encounter Last Filed Vital Signs Vital Sign Reading Time Taken Comments Blood Pressure 129/78 08/05/2022 0346 EST Pulse 117 08/05/2022 0346 EST Temperature 37.7 ??C (99.8 ??F) 08/05/2022 0346 EST Respiratory Rate 18 08/05/2022 0346 EST Oxygen Saturation 97% 08/05/2022 0346 EST Inhaled Oxygen Concentration - - Weight - - Height - - Body Mass Index - - documented in this encounter Functional Status * [...] No 02/02/2020 23:00 EDNelly Ya RN documented as of this encounter Mental Status * Because of a physical, mental, or emotional condition, do you have serious difficulty concentrating, remembering, or making decisions? (5 years old or older) Answer Entry Date Author No 02/02/2020 23:00 Nelly Marcum RN documented in this encounter Discharge Instructions * Discharge Instructions* Alycia Pritchett MD - 08/05/2022 3:46 EST Consider taking Zyrtec daily Apply vaseline or bacitracin to bilateral nares to help prevent recurrent bleeding Apply nasal spray to both nares 2x/day for the next 3-5 days Return for uncontrolled bleeding, worsening symptoms or any other concerns. documented in this encounter Medications at Time of Discharge methadone (DOLOPHINE) 10 mg tablet Take 80 mg by mouth daily. 07/02/2024 Multivitamins with Minerals tablet Take 1 Tab by mouth daily. 07/02/2024 NAPROXEN SODIUM (ALEVE ORAL) Take by mouth. 07/02/2024 documented as of this encounter Discharge Disposition Disposition Code Departure Means Destination Comment s Home or Self Prison pt discharged to home in stable condition. documented in this encounter ED Notes * Alycia Pritchett MD - 08/05/2022 0400 EST This patient received an evaluation and medical screening exam for emergent medical conditions at Emergency Department on 08/05/2022 ED Course/Medical Decision Making 42-year-old male presents with nasal congestion for the last 2 weeks and intermittent epistaxis. Noepistaxis currently. Patient feels like his sinuses are full. Patient not take any prior to arrival. No fevers. No cough. Afrin nasal spray given. Advised patient to take Zyrtec to help with congestion. No difficulty breathing. Patient maintaining O2 sat of 97% on room air. Nasal turbinates swollen. Clear nasal discharge. Findings consistent with acute upper respiratory infection. Likely viral. Will discharge home to follow-up with PCP. Final diagnoses: Nasal congestion with rhinorrhea Data Reviewed this visit No current facility-administered medications for this encounter. Current Outpatient Medications Medication Sig Dispense Refill ??? methadone (DOLOPHINE) 10 mg tablet Take 80 mg by mouth daily. ??? Multivitamins with Minerals tablet Take 1 Tab by mouth daily. ??? NAPROXEN SODIUM (ALEVE ORAL) Take by mouth. History of Present Illness HPI Marcos Camejo is a 42 y.o. male presents with nasal congestion for the last 2 weeks and intermittent epistaxis. No epistaxis currently. Patient feels like his sinuses are full. Patient not take any prior to arrival. No fevers. No cough. Review of Symptoms ROS A 6-point review of systems was performed. The historian answered negative to all questions with the exceptions of those explicitly detailed as positives in the HPI. Pertinent negatives are also explicitly stated. Physical Exam Vital Signs Temp: 37.7 ??C (99.8 ??F) Temp src: Oral Pulse: (!) 117 Resp: 18 SpO2: 97 % BP: 129/78 O2 Device: None (Room air) Nursing notes and vital signs were reviewed. Physical Exam Vitals and nursing note reviewed. Constitutional: Appearance: Normal appearance. HENT: Head: Normocephalic and atraumatic. Right Ear: External ear normal. Left Ear: External ear normal. Nose: Mucosal edema, congestion and rhinorrhea present. Right Nostril: No epistaxis. Left Nostril: No epistaxis. Right Turbinates: Swollen. Not enlarged. Left Turbinates: Swollen. Not enlarged. Mouth/Throat: Mouth: Mucous membranes are moist. Eyes: Extraocular Movements: Extraocular movements intact. Conjunctiva/sclera: Conjunctivae normal. Pupils: Pupils are equal, round, and reactive to light. Pulmonary: Effort: Pulmonary effort is normal. Musculoskeletal: General: Normal range of motion. Cervical back: Normal range of motion. Skin: General: Skin is warm and dry. Neurological: General: No focal deficit present. Mental Status: He is alert and oriented to person, place, and time. Psychiatric: Mood and Affect: Mood normal. Behavior: Behavior normal. Procedures Procedures Data Interpretation/Results Laboratory results independently reviewed, significant for: Labs Reviewed - No data to display Imaging obtained was reviewed and independently interpreted: No orders to display Disposition Discharged Disposition decisions were made weighing risks and benefits of hospitalization vs. outpatient treatment, the risk for further decompensation, and the patient???s wishes. - If discharged: the patient was stable, improved, or requested discharge. Prior to discharge my usual and customary return precautions were reviewed with the patient and/or family. This included follow-up instructions and reasons to return to the Emergency Department if condition worsens, does notimprove as expected, or other new concerns arise. - If admitted: the patient???s condition was severe enough to require additional inpatient evaluation and treatment, or the patient was at risk of sudden decompensation. * Angelic Tamayo RN - 08/05/2022 0343 EST Pt reports left sided headache, pressure with nosebleed from both nares this morning. Pt currently not bleeding. documented in this encounter Plan of Treatment Not on file documented as of this encounter Visit Diagnoses Diagnosis Nasal congestion with rhinorrhea- Primary Other diseases of nasal cavity and sinuses documented in this encounter Administered Medications Inactive Administered Medications - up to 3 most recent administrations Medication Order MAR Action Action Date Dose Rate Site oxymetazoline (AFRIN) 0.05 % nasal spray 2 [place] 2 [place], nasal - both, NOW X1, 1 dose, On Wed08/05/22 at 0400, STAT Given 08/05/2022 3:47 EST 2 Sprays documented in this encounter Historical Medications * This list may reflect changes made after this encounter. methadone (DOLOPHINE) 10 mg tablet Take 80 mg by mouth daily. 07/02/2024 added in this encounter Active and Recently Administered Medications Times are shown in EST. Scheduled Medication Order 08/03/2022 08/04/2022 08/05/2022 oxymetazoline (AFRIN) 0.05 % nasal spray 2 [place] (COMPLETED) 2 [place], nasal - both, NOW X1, 1 dose, On Wed08/05/22 at 0400, STAT 0347 (Given - Provid er: Lucia Dhillon RN) documented in this encounter Orders Medications Ordered That Kin ht Not Have Been Administered Count Last Ordered Date First Ordered Date oxymetazoline (AFRIN) 0.05 % nasal spray 2 [place] 1 08/05/2022 documented in this encounter Care Teams Manager Of Creative Services Relationship Specialty Start Date End Date None, Provider PCP - General 02/05/20 02/16/23 None, Provider 02/05/20 05/25/24 documented as of this encounter
--- OUTSIDE RECORDS SUMMARY | 2024-07-02 14:33 | XMS_ITS | Encounter Summary ---
Author Organization [facility] Address [address] [place] [address] Care Team Providers Care Firm Administrator Name Role Phone None, Provider Unavailable Unavailable Milo Baer MD Primary Care Provider [phone] Encounter Details Date Type Department Care Team (Latest Contact Info) Description 05/24/2024 Hospital Encounter [facility] Center Secondary Reads [place] Discharge [...] Date/Time Associated Diagnosis Comments CT OUTSIDE IMAGES ABDOMEN PELVIS STAT 05/24/2024 9:24 EST documented in this encounter Results * CT OUTSIDE IMAGES ABDOMEN PELVIS (05/24/2024 9:24 EST) Narrative 2024 9:24 EST This is a non-reportable exam. us External Imaging IMG OTHER IMAGING ORDERABLES Fi nal Result documented in this encounter Visit Diagnoses Not on filedocumented in this encounter Care Teams Firm Administrator Relationship Specialty Start Date End Date Milo Baer MD [address] [place] [phone] PCP - General Family Medicine - Primary Care 02/17/23 05/25/24 None, Provider 02/05/20 05/25/24 documented as of this encounter
--- OUTSIDE RECORDS SUMMARY | 2024-07-02 14:33 | XMS_ITS | Encounter Summary ---
Author Organization [facility] Address [address] [place] [address] Care Team Providers Care Stapler Hand Name Role Phone None, Provider Unavailable Unavailable Milo Baer MD Primary Care Provider [phone] Raffi Merida DO Primary Care Provider [phone] Encounter Details Date Type Department Care Team (Late st Contact Info) Description 07/15/2023 Lab Requisition [facility] [address] [place] [address] Outr Resulting Lab, Provider Social History Tobacco [...] Procedure Name Priority Date/Time Associated Diagnosis Comments HEPATITIS C AB W REFLEX TO HCV RNA BY PCR Routine 07/15/2023 9:50 EST HEPATITIS A ANTIBODY IGM Today 07/15/2023 9:50 EST HEPATITIS A TOTAL ANTIBODY W REFLEX Routine 07/15/2023 9:50 EST HEPATITIS B CORE ANTIBODY (TOTAL) Routine 07/15/2023 9:50 EST HEPATITIS B SURFACE ANTIBODY Routine 07/15/2023 9:50 EST HEPATITIS B SURFACE ANTIGEN Routine 07/15/2023 9:50 EST documented in this encounter Results * HEPATITIS A ANTIBODY IGM (07/15/2023 9:50 EST) Hepatitis A Antibody, IgM Negative Negative 07/15/2023 20:39 EST [facility] Blood VENOUS BLOOD / Unknown 07/15/2023 9:50 EST 07/15/2023 17:04 EST Narrative [facility] - 07/15/2023 20:39 EST The results of this assay can be falsely lowered due to the consumption of Biotin. us Provider Outr Resulting Lab CHEMISTRY & BLOOD GA S ORDERABLES Final Result Performing Organization Address [facility] Co de Phone Number [facility] [address] [place] [address] * HEPATITIS B SURFACE ANTIBODY (07/15/2023 9:50 EST) Hep B Surface Ab, Quantitative 92.6 See Note mIU/mL 07/15/2023 17:52 [facility] Comment: Reference Range for Hep B Surface Ab, Quant: Positive: >= 10.0 mIU/mL Negative: ??< 10.0 mIU/mL Patient is presumed to be immune to infection with Hepatitis B Virus. Hep B Surface Ab, Qualitative Positive See Note 07/15/2023 17:52 [facility] Comment: Reference Range for Hep B Surface Ab, Qual: Unvaccinated: ??Negative Vaccinated: ??Positive Blood VENOUS BLOOD / Unknown 07/15/2023 9:50 EST 07/15/2023 17:04 EST us Provider Outr Resulting Lab CHEMISTRY & BLOOD GA S ORDERABLES Final Result Performing Organization Address [facility] Co de Phone Number [facility] [address] [place] [address] * (ABNORMAL) HEPATITIS B CORE ANTIBODY (TOTAL) (07/15/2023 9:50 EST) Hepatitis B Core Ab, Total Positive( A) Negative 07/15/2023 19:43 EST [facility] Comment:A positive result fo r Hepatitis B Core Antibody (Total) indicates either a remote past infection with Hepatitis B Virus OR a Window period between disappearance of HBsAg and seroconversion to HBsAb. Blood VENOUS BLOOD / Unknown 07/15/2023 9:50 EST 07/15/2023 17:04 EST us Provider Outr Resulting Lab CHEMISTRY & BLOOD GA S ORDERABLES Final Result Performing Organization Address [facility]/ZIP Co de Phone Number [facility] [address] [place] [address] * HEPATITIS B SURFACE ANTIGEN (07/15/2023 9:50 EST) Hep B Surface Ag Negative Negative 07/15/2023 18:04 EST [facility] Blood VENOUS BLOOD / Unknown 07/15/2023 9:50 EST 07/15/2023 17:04 EST us Provider Outr Resulting Lab CHEMISTRY & BLOOD GA S ORDERABLES Final Result Performing Organization Address [facility] Co de Phone Number [facility] [address] [place] [address] * HEPATITIS C AB W REFLEX TO HCV RNA BY PCR (07/15/2023 9:50 EST) Hep C Antibody Negative Negative 07/15/2023 18:31 EST [facility] Blood VENOUS BLOOD / Unknown 07/15/2023 9:50 EST 07/15/2023 17:04 EST us Provider Outr Resulting Lab CHEMISTRY & BLOOD GA S ORDERABLES Final Result Performing Organization Address [facility] de Phone Number [facility] [address] [place] [address] * (ABNORMAL) HEPATITIS A TOTAL ANTIBODY W REFLEX (07/15/2023 9:50 EST) Hepatitis A Antibody, Total Positive(A ) Negative 07/15/2023 18:38 EST [facility] Blood VENOUS BLOOD / Unknown 07/15/2023 9:50 EST 07/15/2023 17:04 EST Narrative [facility] - 07/15/2023 18:38 EST The result of this assay can be falsely elevated (Positive) due to the consumption of Biotin. us Provider Outr Resulting Lab CHEMISTRY & BLOOD GA S ORDERABLES Final Result [facility] [address] [place] [address] documented in this encounter Visit Diagnoses Not on filedocumented in this encounter Additional Health Concerns Infection Onset Date Last Indicated Resolved Time MRSA Comment:05/24/2024 +MRSA blood cultures [facility] Pos blood 05/26/24, 05/27/24, 05/29/24, 05/30/24, 06/01/24, 06/03/24, 06/04/24, 06/05/24 - Radha DiMasi 06/08/2024 2024 06/05/2024 documented as of this encounter Care Teams Stapler Hand Relationship Specialty Start Date End Date Milo Baer MD [address] [place] [phone] PCP - General Family Medicine - Primary Care 02/17/23 05/25/24 Raffi Merida DO [address] [place] [id number] PCP - General Family Medicine - Primary Care 05/26/24 None, Provider 02/05/20 05/25/24 documented as of this encounter
--- OUTSIDE RECORDS SUMMARY | 2024-07-02 14:33 | XMS_ITS | Encounter Summary ---
Author Organization [facility] Address [address] [place] [address] Care Team Providers Care Registered Diet Technician Name Role Phone None, Provider Unavailable Unavailable Milo Baer MD Primary Care Provider [phone] Encounter Details Date Type Department Care Team (Latest Contact Info) Description 02/17/2023 Travel Social History Tobacco Use Types Packs/Day [...] 16:59 EDT documented as of this encounter Functional Status [...] on filedocumented in this encounter Care Teams Registered Diet Technician Relationship Specialty Start Date End Date Milo Baer MD [address] [place] [phone] PCP - General Family Medicine - Primary Care 02/17/23 05/25/24 None, Provider 02/05/20 05/25/24 documented as of this encounter
--- OUTSIDE RECORDS SUMMARY | 2024-07-02 14:34 | XMS_ITS | Encounter Summary ---
Author Organization [facility] Address [address] [place] [address] Care Team Providers Care Precision Instrument Maker And Repairer Name Role Phone None, Provider Primary Care Provider Unavailabl e Encounter Details Date Type Department Care Team (Late st Contact Info) Description 02/01/2020 Results Only [facility]- [facility] [phone] Derrick Bill MD [address] [place] [phone] Social History Tobacco Use Types Packs/Day Years Used Date Smoking Tobacco: Former Cigarettes Smokeless Tobacco: Current Chew Alcohol Use Standard Drinks/Week Comments No 0 (1 standard drink = 0.6 oz [...] as of this encounter Plan of Treatment Not on file documented as of this encounter Procedures Procedure Name Priority Date/Time Associated Diagnosis Comments BILIRUBIN DIRECT - CV Routine 02/01/2020 23:55 EDT BLOOD CULTURE - CV Routine 02/01/2020 23:55 EDT ETHYL ALCOHOL - CV Routine 02/01/2020 23:55 EDT LIPASE - [facility] Routine 02/01/2020 23:55 EDT NT-PROBNP SERPL-[facility] - CV Routine 02/01/2020 23:55 EDT LACTIC ACID SEPSIS REFLEX - [facility] Routine 02/01/2020 23:55 EDT COMPLETE BLOOD COUNT WITH DIFFERENTIAL (AUTO) Routine 02/01/2020 23:55 EDT C REACTIVE PROTEIN Routine 02/01/2020 23 :55 EDT MAGNESIUM Routine 02/01/2020 23:55 EDT LDH Routine 02/01/2020 23:55 EDT FERRITIN Routine 02/01/2020 23:55 EDT CK Routine 02/01/2020 23:55 EDT ACETAMINOPHEN Routine 02/01/2020 23:55 EDT SALICYLATE Routine 02/01/2020 23:55 EDT COMPREHENSIVE METABOLIC PANEL (CMP) Routine 02/01/2020 23:55 EDT COVID-19 TESTING Routine 02/01/2020 23:4 0 EDT HEPATITIS C AB W/REFLEX - [facility] Routine 02/01/2020 23:37 EDT HEPATITIS A ANTIBODY IGM Routine 02/01/2020 23:37 EDT HEPATITIS A TOTAL ANTIBODY W REFLEX Routine 02/01/2020 23:37 EDT HEPATITIS B CORE ANTIBODY (TOTAL) Routine 02/01/2020 23:37 EDT HEPATITIS B SURFACE ANTIGEN Routine 02/01/2020 23:37 EDT documented in this encounter Results * BLOOD CULTURE - [facility] (02/01/2020 23:55 EDT) Pathologist [facility] BLOOD CULTURE - [facility] 02/07/2020 7:[address] [facility] BLOOD CULTURE - [facility] NO GROWTH AT 5 DAYS 02/07/2020 7:[address] [facility] Blood specimen (specimen) 02/01/2020 23:55 EDT 02/02/2020 0:10 EDT Comment:PERIP Derrick Bill MD CHEMISTRY & BLOOD GAS ORDER MENDEZ Edited Result - Final Performing Organization Address [facility]/ZIP Co de Phone Number [facility] [address] [place] [address] * LIPASE - [facility] (02/01/2020 23:55 EDT) [facility] LIPASE SERPL-CCNC - [facility] 59 <251 U/L 02/02/2020 4:[address] [facility] 02/01/2020 23:5 5 EDT 02/02/2020 3:51 EDT Derrick Bill MD CHEMISTRY & BLOOD GAS ORDER MENDEZ Final Result Performing Organization Address [facility] Co de Phone Number [facility] [address] [place] [address] * (ABNORMAL) BILIRUBIN DIRECT - [facility] (02/01/2020 23:55 EDT) [facility] BILIRUBIN DIRECT CALC - [facility] 4.3(H) 0.0 - 0.4 mg/dL 02/02/2020 4:[address] [facility] BILIRUBIN TOTAL 5.3(H) 0.2 - 1.3 mg/dL 02/02/2020 4:[address] [facility] Unconjugated Bilirubin 1.0 0.0 - 1.1 mg/dL 02/02/2020 4:[address] [facility] 02/01/2020 23:5 5 EDT 02/02/2020 3:51 EDT Derrick Bill MD CHEMISTRY & BLOOD GAS ORDER MENDEZ Final Result Performing Organization Address [facility] Phone Number [facility] [address] [place] [address] * SALICYLATE (02/01/2020 23:55 EDT) Salicylate <1.0 02/02/2020 2:[address] [facility] Comment: Date and Time for last dose: ?? Therapeutic range = < 2.0 mg/dl Possible toxicity = < 20 ??mg/dl Probable toxicity = > 30 ??mg/dl 02/01/2020 23:5 5 EDT 02/02/2020 0:10 EDT us Derrick Bill MD CHEMISTRY & BLOOD GAS ORDER MENDEZ Final Result Performing Organization Address [facility] [address] [place] [address] * MAGNESIUM (02/01/2020 23:55 EDT) Magnesium 1.80 1.7 - 2.8 mg/dL 02/02/2020 0:[address] [facility] 02/01/2020 23:5 5 EDT 02/02/2020 0:10 EDT Derrick Bill MD CHEMISTRY & BLOOD GAS ORDER MENDEZ Final Result Performing Organization Address [facility] Phone Number [facility] [address] [place] [address] * (ABNORMAL) LDH (02/01/2020 23:55 EDT) LDH - [facility] 1,128(H) 313 - 618 U/L 02/02/2020 0:[address] [facility] 02/01/2020 23:5 5 EDT 02/02/2020 0:10 EDT us Derrick Bill MD CHEMISTRY & BLOOD GAS ORDER MENDEZ Final Result Performing Organization Address [facility]/ZIP Co de Phone Number [facility] [address] [place] [address] * (ABNORMAL) FERRITIN (02/01/2020 23:55 EDT) [facility] FERRITIN [facility] 587(H) 17.9 - 464.0 ng/mL 02/02/2020 2:[address] [facility] Comment: The results of this assay can be falsely lowered due to the consumption of Biotin. 02/01/2020 23:5 5 EDT 02/02/2020 0:10 EDT Derrick Bill MD CHEMISTRY & BLOOD GAS ORDER MENDEZ Final Result Performing Organization Address [facility] de Phone Number [facility] [address] [place] [address] * ETHYL ALCOHOL - [facility] (02/01/2020 23:55 EDT) [facility] ETHYL ALCOHOL [facility] <10.0 <10 mg/dL 02/02/2020 0:[address] [facility] 02/01/2020 23:5 5 EDT 02/02/2020 0:10 EDT us Derrick Bill MD CHEMISTRY & BLOOD GAS ORDER MENDEZ Final Result Performing Organization Address [facility]/ZIP Co de Phone Number [facility] [address] [place] [address] * (ABNORMAL) C REACTIVE PROTEIN (02/01/2020 23:55 EDT) [facility] C-Reactive Protein 14.1(H) <10.0 mg/L 02/02/2020 0:[address] [facility] 02/01/2020 23:5 5 EDT 02/02/2020 0:10 EDT us Derrick Bill MD CHEMISTRY & BLOOD GAS ORDER MENDEZ Final Result [facility] [address] [place] [address] * CK (02/01/2020 23:55 EDT) Pathologist [facility] CPK [facility] 71 55 - 170 U/L [facility]2020 [facility] 02/01/2020 23:5 5 EDT 02/02/2020 0:10 EDT us Derrick Bill MD CHEMISTRY & BLOOD GAS ORDER MENDEZ Final Result [facility] [address] [place] [address] * (ABNORMAL) COMPREHENSIVE METABOLIC PANEL (CMP) (02/01/2020 23:55 EDT) [facility] Albumin % 3.5 3.4 - 4.9 g/dL 02/02/2020 0:32 [facility] ALKALINE PHOSPHATASE - [facility] 219(H) 38 - 126 U/L 02/02/2020 0:32 [facility] BILIRUBIN TOTAL 6.3(H) 0.2 - 1.3 mg/dL 02/02/2020 0:32 [facility] BUN - [facility] 12 10 - 26 mg/dL 02/02/2020 0:32 [facility] CALCIUM - [facility] 9.1 8.5 - 10.5 mg/dL 02/02/2020 0:32 [facility] Chloride 100 96 - 110 mmol/L 02/02/2020 0:32 [facility] CO2 Total 27 21 - 32 mEq/L 02/02/2020 0:32 [facility] CREATININE 0.88 0.66 - 1.25 mg/dL 02/02/2020 0:32 [facility] eGFR >60 02/02/2020 0:32 [facility] Comment: Chronic renal impairment is defined as GFR <60 Multiply result by 1.210 for patients. Anion Gap 8 0 - 18 02/02/2020 0:32 [facility] GLUCOSE - [facility] 124(H) 70 - 100 mg/dL 02/02/2020 0:[address] [facility] Potassium 3.9 3.5 - 5.0 mEq/L 02/02/2020 0:[address] [facility] Sodium 135(L) 136 - 145 mEq/L 02/02/2020 0:[address] [facility] TOTAL PROTEIN - [facility] 7.8 6.2 - 8.2 gm/dL 02/02/2020 0:[address] [facility] SGOT/AST - [facility] 2,002(H) 17 - 59 U/L 02/02/2020 2:[address] [facility] Comment:Verified by repeat a nalysison dilution. SGPT/ALT - [facility] 2,958(H) 0 - 50 U/L 0 2:[address] [facility] Comment:Verified by repeat a nalysis on dilution 02/01/2020 23:5 5 EDT 02/02/2020 0:10 EDT us Derrick Bill MD CHEMISTRY & BLOOD GAS ORDER MENDEZ Final Result [facility] [address] [place] [address] * [facility] (02/01/2020 23:55 EDT) NT-pro BNP 165 <300 pg/mL 02/02/2020 0:[address] [facility] Comment: NT-proBNP values less than 300 pg/ml have a 99% negative predictive value for excluding acute congestive heart failure. A diagnostic NT-proBNP cutoff of 900 pg/ml has been suggested in adults over 50 years of age in the absence of renal failure. A cutoff of 1200 pg/ml for patients with eGFR <60 yields a diagnostic sensitivity and specificity of 89% and 72% for acute congestive failure. (OCD Maikel Farrell, PhD, [employer] of NT-proBNP (ICON) Study The results of this assay can be falsely lowered due to the consumption of Biotin. 02/01/2020 23:5 5 EDT 02/02/2020 0:10 EDT Result [facility] Derrick Bill MD CHEMISTRY & BLOOD GAS ORDER MENDEZ Final Result Performing Organization Address [facility] de Phone Number [facility] [address] [place] [address] * (ABNORMAL) ACETAMINOPHEN (02/01/2020 23:55 EDT) Pathologist [facility] Acetaminophen <10(L) ug/mL 02/02/2020 2:[address] [facility] Comment: Date and Time for last dose:Not Available. ?? Therapeutic range: 10-30 Possible Toxicity: 150-200 Probable toxicity: ??> 200 Critical: >150 @ 4 hrs post ingestion. ?> 50 @ 12 hours post ingestion. 02/01/2020 23:5 5 EDT 02/02/2020 0:10 EDT Result [facility] Derrick Bill MD CHEMISTRY & BLOOD GAS ORDER MENDEZ Final Result Performing Organization Address [facility] de Phone Number [facility] [address] [place] [address] * LACTIC ACID SEPSIS REFLEX - [facility] (02/01/2020 23:55 EDT) [facility] LACTIC ACID - [facility] 1.6 <2.0 mmol/L 02/02/2020 0:[address] [facility] 02/01/2020 23:5 5 EDT 02/02/2020 0:09 EDT Result [facility] Derrick Bill MD CHEMISTRY & BLOOD GAS ORDER MENDEZ Final Result Performing Organization Address [facility] de Phone Number [facility] [address] [place] [address] * (ABNORMAL) COMPLETE BLOOD COUNT WITH DIFFERENTIAL (AUTO) (02/01/2020 23:55 EDT) Gran # 3.1 2.2 - 8.85 10e3/uL 02/02/2020 0:[address] [facility] BASO # - [facility] 0.01 0.01 - 0.11 10e/uL 02/02/2020 0:21 [facility] BASO % - [facility] 0 0 - 2 % 02/02/2020 0:21 [facility] EOS # - [facility] 0.07 0.03 - 0.61 10e3/ul 02/02/2020 0:21 [facility] EOS % - [facility] 2 0 - 5 % 02/02/2020 0:21 [facility] GRAN % - [facility] 65.6 40 - 80 % 02/02/2020 0:21 [facility] HEMATOCRIT - [facility] 39.0(L) 39.5 - 50.2 % 02/02/2020 0:21 [facility] HEMOGLOBIN - [facility] 13.2(L) 13.8 - 17.3 g/dl 02/02/2020 0:21 [facility] IG# - [facility] 0.02 0 - 0.7 10e3/uL 02/02/2020 0:21 [facility] IG% - [facility] 0.4 0 - 0.9 % 02/02/2020 0:21 [facility] LYMPH # - [facility] 1.1 1.09 - 3.3 10e3/ul 02/02/2020 0:21 [facility] LYMPH% - [facility] 23.1 20 - 40 % 02/02/2020 0:21 [facility] MEAN CORPUSCULAR HGB - [facility] 29.1 27.6 - 33.0 pg 02/02/2020 0:21 [facility] MEAN CORPUSCULAR HGB CONC - [facility] 33.8 32.8 - 36.4 g/dL 02/02/2020 0:21 [facility] MEAN CELL VOLUME - [facility] 85.9 81 - 95 fl 02/02/2020 0:21 [facility] MONO # - [facility] 0.4 0.1 - 0.8 10e3/uL 02/02/2020 0:21 [facility] MONO% - [facility] 9.2 0 - 12 % 02/02/2020 0:21 [facility] PLATELET COUNT 285 141 - 377 10e3/ul 02/02/2020 0:[address] [facility] RED BLOOD COUNT - [facility] 4.54 4.36 - 5.78 10e3/ul 02/02/2020 0:[address] [facility] RED CELL DISTRI WIDTH - [facility] 14.2 <14.2 % 02/02/2020 0:[address] [facility] WHITE BLOOD COUNT - [facility] 4.8 4.0 - 10.4 10e3/ul 02/02/2020 0:[address] [facility] 02/01/2020 23:5 5 EDT 02/02/2020 0:10 EDT us Derrick Bill MD HEMATOLOGY & PF4 ORDERABLES Final Result Performing Organization Address [facility] Co de Phone Number [facility] [address] [place] [address] * COVID-19 TESTING (02/01/2020 23:40 EDT) [facility] COVID-19 rt-PCR Result Not Detected 02/02/2020 1:[address] [facility] Comment: Result called to ANABELL SILVA IN ED 02/02/20 0110: Result called by LINDSAY The 2019 novel coronavirus (SARS-CoV-2) target nucleic acids are not detected. 02/01/2020 23:4 0 EDT 02/02/2020 0:15 EDT us Derrick Bill MD MICROBIOLOGY - GENERAL ORDE RABLES Final Result Performing Organization Address City/[facility]/ZIP Co de Phone Number [facility] [address] [place] [address] * HEPATITIS B CORE ANTIBODY (TOTAL) (02/01/2020 23:37 EDT) [facility] Hepatitis B Core Ab, Total Negative Negative 02/02/2020 14:[address] [facility] Comment: Test performed [place] [address] 02/01/2020 23:3 7 EDT 02/02/2020 1:09 EDT Derrick Bill MD CHEMISTRY & BLOOD GAS ORDER MENDEZ Final Result Performing Organization Address [facility] de Phone Number [facility] [address] [place] [address] * HEPATITIS A ANTIBODY IGM (02/01/2020 23:37 EDT) Hepatitis A Antibody, IgM Positive 02/02/2020 4:[address] [facility] Comment: Expected Values: ??Negative. Results consistent with recent exposure. The results of this assay can be falsely lowered due to the consumption of Biotin. 02/01/2020 23:3 7 EDT 02/02/2020 1:09 EDT Derrick Bill MD CHEMISTRY & BLOOD GAS ORDER MENDEZ Final Result Performing Organization Address [facility] Phone [facility] [address] [place] [address] * HEPATITIS C AB W/REFLEX - [facility] (02/01/2020 23:37 EDT) HEPATITIS C AB W/REFLEX - [facility] Negative 02/02/2020 3:[address] [facility] Comment:Expected Values: Neg ative. 02/01/2020 23:3 7 EDT 02/02/2020 1:09 EDT Derrick Bill MD CHEMISTRY & BLOOD GAS ORDER MENDEZ Final Result Performing Organization Address [facility] de Phone Number [facility] [address] [place] [address] * HEPATITIS B SURFACE ANTIGEN (02/01/2020 23:37 EDT) Hep B Surface Ag Negative 02/02/2020 3:[address] [facility] Comment: Expected Values: ??Negative. The results of this assay can be falsely lowered due to the consumption of Biotin. 02/01/2020 23:3 7 EDT 02/02/2020 1:09 EDT Derrick Bill MD CHEMISTRY & BLOOD GAS ORDER MENDEZ Final Result Performing Organization Address [facility] de Phone Number [facility] [address] [place] [id number] * HEPATITIS A TOTAL ANTIBODY W REFLEX (02/01/2020 23:37 EDT) HEPATITIS A TOTAL AB - [facility] Positive 02/02/2020 3:[address] [facility] Comment: Indicates a reactive sample and the presence of anti-HAV. Indicates individual has been previously infected with or is presumed to be immune to HAV infection. The results of this assay can be falsely lowered due to the consumption of Biotin. 02/01/2020 23:3 7 EDT 02/02/2020 1:09 EDT Derrick Bill MD CHEMISTRY & BLOOD GAS ORDER MENDEZ Final Result Performing Organization Address [facility] de Phone Number [facility] [address] [place] [address] documented in this encounter Visit Diagnoses Not on filedocumented in this encounter Care Teams Precision Instrument Maker And Repairer Relationship Specialty Start Date End Date None, Provider PCP - General 02/20/14 02/04/20 documented as of this encounter
--- OUTSIDE RECORDS SUMMARY | 2024-07-02 14:34 | XMS_ITS | Encounter Summary ---
Author Organization [facility] Address [address] [place] [address] Care Team Providers Care Travograph Operator Name Role Phone None, Provider Primary Care Provider Unavailabl e Encounter Details Date Type Department Care Team (Latest Contact Info) Description 06/19/2015 11:31 EST - 06/19/2015 23:59 EST Hospital Encounter [facility] [address] [place] [address] Unknown, Provider, MD Discharge Disposition: Home or Self Care Social History Tobacco Use Types Packs/Day Years Used Date Smoking Tobacco: Every Day Cigarettes Alcohol Use Standard Drinks/Week Comments No 0 (1 standard drink = 0.6 oz pur e alcohol) Sex and Gender Information Value Date Recorded [...] Code Departure Means Destination Home or Self Usp documented in this encounter Plan of Treatment Not on file documented as of this encounter Visit Diagnoses Not on filedocumented in this encounter Care Teams Travograph Operator Relationship Specialty Start Date End Date None, Provider PCP - General 02/20/14 02/04/20 documented as of this encounter
--- OUTSIDE RECORDS SUMMARY | 2024-07-02 14:34 | XMS_ITS | Encounter Summary ---
Author Organization [facility] Address [address] [place] [address] Care Team Providers Care Escrow Closer Name Role Phone None, Provider Primary Care Provider Unavailabl e None, Provider Primary Care Provider Unavailabl e None, Provider Unavailable Unavailable Milo Baer MD Primary Care Provider [phone] Raffi Merida DO Primary Care Provider [phone] Encounter Details Date Type Department Care Team (Late st Contact Info) Description 02/02/2020 Results Only Imaging [facility] Radiology Results [address], [place] [id number] Derrick Bill MD [address] [place] [address] Social History Tobacco Use Types [...] Name Priority Date/Time Associated Diagnosis Comments CT CHEST W CONTRAST 02/02/2020 3:[address] ABDOMEN PELVIS W CONTRAST 02/02/2020 3:56 EDT XR CHEST 1 VIEW 02/02/2020 0:59 EDT EKG 12-LEAD 02/02/2020 0:14 EDT documented in this encounter Results * CT ABDOMEN PELVIS W CONTRAST (02/02/2020 3:56 EDT) Anatomical Region Laterality Modality Body, Abdomen, Pelvis, Abdomen and Pelvis Computed Tomography 02/02/2020 3:56 EDT Narrative 02/02/2020 3:56 EDT ? EXAM: CAT SCAN/ABDOMEN PELVIS WITH CONTRA EX. D/ (0308) ? CLINICAL INFORMATION: ? fever, liver ??failure, possible endocarditis ? PROCEDURE INFORMATION: ? Exam: CT Chest With Contrast ? Exam date and time: 02/02/2020 2:17 AM ? Age: 39 years old ? Clinical indication: Fever; Additional info: Fever, liver ? failure, possible endocarditis ? TECHNIQUE: ? Imaging protocol: Computed tomography of the chest with ? intravenous contrast. ? Radiation optimization: All CT scans at this facility use at ? least one of these dose optimization techniques: automated ? exposure control; mA and/or kV adjustment per patient size ? (includes targeted exams where dose is matched to clinical ? indication); or iterative reconstruction. ? Contrast material: OMNIPAQUE; Contrast volume: 100 ml; Contrast ? route: INTRAVENOUS (IV); ? COMPARISON: ? CTA CHEST PE PROTOCOL 12/24/2019 4:05 PM ? FINDINGS: ? Lungs: Mild atelectasis/scarring. No consolidation. RUL ? calcified granuloma. Few nodules and/or focal scarring, up to ? 0.3 cm. ? Pleural space: No significant pleural effusion. No pneumothorax. ? Heart: No cardiomegaly. No significant pericardial effusion. ? Aorta: Unremarkable. No aortic aneurysm. ? Lymph nodes: Calcified hilar lymph nodes. ? Bones/joints: No acute fracture. ? Soft tissues: Unremarkable. ? IMPRESSION: ? 1. No acute findings. ? 2. Pulmonary nodule(s). For patients at low risk (minimal or ? absent history of smoking and of other known risk factors), no ? routine follow-up is indicated. For patients at high risk ? (history of smoking or of other known risk factors), consider ? optional CT at 12 months. (Melba et al., Fleischner Society, ? 2017) ? PROCEDURE INFORMATION: ? Exam: CT Abdomen And Pelvis With Contrast ? Exam date and time: 02/02/2020 2:17 AM ? Age: 39 years old ? Clinical indication: Fever; Additional info: Fever, liver ? failure, possible endocarditis ? TECHNIQUE: ? Imaging protocol: Computed tomography of the abdomen and pelvis ? PAGE 1 ? Signed Report ? (CONTINUED) ? with intravenous contrast. ? Radiation optimization: All CT scans at this facility use at ? least one of these dose optimization techniques: automated ? exposure control; mA and/or kV adjustment per patient size ? (includes targeted exams where dose is matched to clinical ? indication); or iterative reconstruction. ? Contrast material: OMNIPAQUE; Contrast volume: 100 ml; Contrast ? route: INTRAVENOUS (IV); ? COMPARISON: ? CTA CHEST PE PROTOCOL 12/24/2019 4:05 PM ? FINDINGS: ? Liver: Periportal edema. Few < 1.0 cm lesions. ? Gallbladder and bile ducts: Gallbladder distension with apparent ? mild asymmetric wall thickening. No significant ductal dilation. ? Pancreas: Unremarkable. No ductal dilation. ? Spleen: Few calcifications. Mildly enlarged. ? Adrenals: No mass. ? Kidneys and ureters: Unremarkable. No significant ? hydronephrosis. ? Stomach and bowel: No definite mural thickening. No obstruction. ? Appendix: No findings to suggest appendicitis. ? Intraperitoneal space: No significant fluid collection. No ? definite free air. ? Vasculature: Unremarkable. No aneurysm. ? Lymph nodes: No pathologically enlarged lymph nodes. ? Bladder: Unremarkable. ? Reproductive: Unremarkable as visualized. ? Bones/joints: Probable bone islands. Limbus vertebra. No acute ? fracture. ? Soft tissues: Unremarkable. ? IMPRESSION: ? 1. Periportal edema, nonspecific. Clinical correlation is ? needed. ? 2. Gallbladder distension. Suggest ultrasound. ? 3. Liver lesions. In a low-risk patient, this lesion is most ? likely to be benign and no further follow-up is recommended. In ? a high-risk patient, recommend follow-up MRI in 3-6 months (or ? earlier if warranted by the patient's specific clinical ? circumstances). ? This report has been flagged for a noncritical result requiring ? follow-up and to be tracked by the [facility] tracking system. ? REPORT SIGNED IN OTHER VENDOR SYSTEM 02/02/2020 ?Reported By: Best Ramires MD ? CC: ? Transcribed Date/Time: 02/02/2020 (0356) ? Hardboard Factory Worker: ? Printed Date/Time: 02/02/2020 (0356) ? PAGE 2 ? Signed Report ? Procedure Note Best Ramires MD - 02/02/2020 EXAM: CAT SCAN/ABDOMEN PELVIS WITH CONTRA EX. D/ (0308) CLINICAL INFORMATION: fever, liver failure, possible endocarditis PROCEDURE INFORMATION: Exam: CT Chest With Contrast Exam date and time: 02/02/2020 2:17 AM Age: 39 years old Clinical indication: Fever; Additional info: Fever, liver failure, possible endocarditis TECHNIQUE: Imaging protocol: Computed tomography of the chest with intravenous contrast. Radiation optimization: All CT scans at this facility use at least one of these dose optimization techniques: automated exposure control; mA and/or kV adjustment per patient size (includes targeted exams where dose is matched to clinical indication); or iterative reconstruction. Contrast material: OMNIPAQUE; Contrast volume: 100 ml; Contrast route: INTRAVENOUS (IV); COMPARISON: CTA CHEST PE PROTOCOL 12/24/2019 4:05 PM FINDINGS: Lungs: Mild atelectasis/scarring. No consolidation. RUL calcified granuloma. Few nodules and/or focal scarring, up to 0.3 cm. Pleural space: No significant pleural effusion. No pneumothorax. Heart: No cardiomegaly. No significant pericardial effusion. Aorta: Unremarkable. No aortic aneurysm. Lymph nodes: Calcified hilar lymph nodes. Bones/joints: No acute fracture. Soft tissues: Unremarkable. IMPRESSION: 1. No acute findings. 2. Pulmonary nodule(s). For patients at low risk (minimal or absent history of smoking and of other known risk factors), no routine follow-up is indicated. For patients at high risk (history of smoking or of other known risk factors), consider optional CT at 12 months. (Melba et al., Fleischner Society, 2017) PROCEDURE INFORMATION: Exam: CT Abdomen And Pelvis With Contrast Exam date and time: 02/02/2020 2:17 AM Age: 39 years old Clinical indication: Fever; Additional info: Fever, liver failure, possible endocarditis TECHNIQUE: Imaging protocol: Computed tomography of the abdomen and pelvis PAGE 1 Signed Report (CONTINUED) with intravenous contrast. Radiation optimization: All CT scans at this facility use at least one of these dose optimization techniques: automated exposure control; mA and/or kV adjustment per patient size (includes targeted exams where dose is matched to clinical indication); or iterative reconstruction. Contrast material: OMNIPAQUE; Contrast volume: 100 ml; Contrast route: INTRAVENOUS (IV); COMPARISON: CTA CHEST PE PROTOCOL 12/24/2019 4:05 PM FINDINGS: Liver: Periportal edema. Few < 1.0 cm lesions. Gallbladder and bile ducts: Gallbladder distension with apparent mild asymmetric wall thickening. No significant ductal dilation. Pancreas: Unremarkable. No ductal dilation. Spleen: Few calcifications. Mildly enlarged. Adrenals: No mass. Kidneys and ureters: Unremarkable. No significant hydronephrosis. Stomach and bowel: No definite mural thickening. No obstruction. Appendix: No findings to suggest appendicitis. Intraperitoneal space: No significant fluid collection. No definite free air. Vasculature: Unremarkable. No aneurysm. Lymph nodes: No pathologically enlarged lymph nodes. Bladder: Unremarkable. Reproductive: Unremarkable as visualized. Bones/joints: Probable bone islands. Limbus vertebra. No acute fracture. Soft tissues: Unremarkable. IMPRESSION: 1. Periportal edema, nonspecific. Clinical correlation is needed. 2. Gallbladder distension. Suggest ultrasound. 3. Liver lesions. In a low-risk patient, this lesion is most likely to be benign and no further follow-up is recommended. In a high-risk patient, recommend follow-up MRI in 3-6 months (or earlier if warranted by the patient's specific clinical circumstances). This report has been flagged for a noncritical result requiring follow-up and to be tracked by the [facility] tracking system. REPORT SIGNED IN OTHER VENDOR SYSTEM 02/02/2020 Reported By: Best Ramires MD CC: Transcribed Date/Time: 02/02/2020 (0356) Hardboard Factory Worker: [email or web address] Printed Date/Time: 02/02/2020 (0356) PAGE 2 Signed Report us Derrick Bill MD IMG CT ORDERABLES Final Res ult * CT CHEST W CONTRAST (02/02/2020 3:56 EDT) Anatomical Region Laterality Modality Chest Computed Tomogra phy 02/02/2020 3:56 EDT Narrative 02/02/2020 3:56 EDT ? EXAM: CAT SCAN/CHEST WITH CONTRAST ?EX. D/ (0308) ? CLINICAL INFORMATION: ? fever, liver ??failure, possible endocarditis ? PROCEDURE INFORMATION: ? Exam: CT Chest With Contrast ? Exam date and time: 02/02/2020 2:17 AM ? Age: 39 years old ? Clinical indication: Fever; Additional info: Fever, liver ? failure, possible endocarditis ? TECHNIQUE: ? Imaging protocol: Computed tomography of the chest with ? intravenous contrast. ? Radiation optimization: All CT scans at this facility use at ? least one of these dose optimization techniques: automated ? exposure control; mA and/or kV adjustment per patient size ? (includes targeted exams where dose is matched to clinical ? indication); or iterative reconstruction. ? Contrast material: OMNIPAQUE; Contrast volume: 100 ml; Contrast ? route: INTRAVENOUS (IV); ? COMPARISON: ? CTA CHEST PE PROTOCOL 12/24/2019 4:05 PM ? FINDINGS: ? Lungs: Mild atelectasis/scarring. No consolidation. RUL ? calcified granuloma. Few nodules and/or focal scarring, up to ? 0.3 cm. ? Pleural space: No significant pleural effusion. No pneumothorax. ? Heart: No cardiomegaly. No significant pericardial effusion. ? Aorta: Unremarkable. No aortic aneurysm. ? Lymph nodes: Calcified hilar lymph nodes. ? Bones/joints: No acute fracture. ? Soft tissues: Unremarkable. ? IMPRESSION: ? 1. No acute findings. ? 2. Pulmonary nodule(s). For patients at low risk (minimal or ? absent history of smoking and of other known risk factors), no ? routine follow-up is indicated. For patients at high risk ? (history of smoking or of other known risk factors), consider ? optional CT at 12 months. (Melba et al., Fleischner Society, ? 2017) ? PROCEDURE INFORMATION: ? Exam: CT Abdomen And Pelvis With Contrast ? Exam date and time: 02/02/2020 2:17 AM ? Age: 39 years old ? Clinical indication: Fever; Additional info: Fever, liver ? failure, possible endocarditis ? TECHNIQUE: ? Imaging protocol: Computed tomography of the abdomen and pelvis ? PAGE 1 ? Signed Report ? (CONTINUED) ? with intravenous contrast. ? Radiation optimization: All CT scans at this facility use at ? least one of these dose optimization techniques: automated ? exposure control; mA and/or kV adjustment per patient size ? (includes targeted exams where dose is matched to clinical ? indication); or iterative reconstruction. ? Contrast material: OMNIPAQUE; Contrast volume: 100 ml; Contrast ? route: INTRAVENOUS (IV); ? COMPARISON: ? CTA CHEST PE PROTOCOL 12/24/2019 4:05 PM ? FINDINGS: ? Liver: Periportal edema. Few < 1.0 cm lesions. ? Gallbladder and bile ducts: Gallbladder distension with apparent ? mild asymmetric wall thickening. No significant ductal dilation. ? Pancreas: Unremarkable. No ductal dilation. ? Spleen: Few calcifications. Mildly enlarged. ? Adrenals: No mass. ? Kidneys and ureters: Unremarkable. No significant ? hydronephrosis. ? Stomach and bowel: No definite mural thickening. No obstruction. ? Appendix: No findings to suggest appendicitis. ? Intraperitoneal space: No significant fluid collection. No ? definite free air. ? Vasculature: Unremarkable. No aneurysm. ? Lymph nodes: No pathologically enlarged lymph nodes. ? Bladder: Unremarkable. ? Reproductive: Unremarkable as visualized. ? Bones/joints: Probable bone islands. Limbus vertebra. No acute ? fracture. ? Soft tissues: Unremarkable. ? IMPRESSION: ? 1. Periportal edema, nonspecific. Clinical correlation is ? needed. ? 2. Gallbladder distension. Suggest ultrasound. ? 3. Liver lesions. In a low-risk patient, this lesion is most ? likely to be benign and no further follow-up is recommended. In ? a high-risk patient, recommend follow-up MRI in 3-6 months (or ? earlier if warranted by the patient's specific clinical ? circumstances). ? This report has been flagged for a noncritical result requiring ? follow-up and to be tracked by the [facility] tracking system. ? REPORT SIGNED IN OTHER VENDOR SYSTEM 02/02/2020 ?Reported By: Best Ramires MD ? CC: ? Transcribed Date/Time: 02/02/2020 (0356) ? Hardboard Factory Worker: ? Printed Date/Time: 02/02/2020 (0356) ? PAGE 2 ? Signed Report ? Procedure Note Best Ramires MD - 02/02/2020 EXAM: CAT SCAN/CHEST WITH CONTRAST EX. D/ (0308) CLINICAL INFORMATION: fever, liver failure, possible endocarditis PROCEDURE INFORMATION: Exam: CT Chest With Contrast Exam date and time: 02/02/2020 2:17 AM Age: 39 years old Clinical indication: Fever; Additional info: Fever, liver failure, possible endocarditis TECHNIQUE: Imaging protocol: Computed tomography of the chest with intravenous contrast. Radiation optimization: All CT scans at this facility use at least one of these dose optimization techniques: automated exposure control; mA and/or kV adjustment per patient size (includes targeted exams where dose is matched to clinical indication); or iterative reconstruction. Contrast material: OMNIPAQUE; Contrast volume: 100 ml; Contrast route: INTRAVENOUS (IV); COMPARISON: CTA CHEST PE PROTOCOL 12/24/2019 4:05 PM FINDINGS: Lungs: Mild atelectasis/scarring. No consolidation. RUL calcified granuloma. Few nodules and/or focal scarring, up to 0.3 cm. Pleural space: No significant pleural effusion. No pneumothorax. Heart: No cardiomegaly. No significant pericardial effusion. Aorta: Unremarkable. No aortic aneurysm. Lymph nodes: Calcified hilar lymph nodes. Bones/joints: No acute fracture. Soft tissues: Unremarkable. IMPRESSION: 1. No acute findings. 2. Pulmonary nodule(s). For patients at low risk (minimal or absent history of smoking and of other known risk factors), no routine follow-up is indicated. For patients at high risk (history of smoking or of other known risk factors), consider optional CT at 12 months. (zaheer Reilly al., Fleischner Society, 2017) PROCEDURE INFORMATION: Exam: CT Abdomen And Pelvis With Contrast Exam date and time: 02/02/2020 2:17 AM Age: 39 years old Clinical indication: Fever; Additional info: Fever, liver failure, possible endocarditis TECHNIQUE: Imaging protocol: Computed tomography of the abdomen and pelvis PAGE 1 Signed Report (CONTINUED) with intravenous contrast. Radiation optimization: All CT scans at this facility use at least one of these dose optimization techniques: automated exposure control; mA and/or kV adjustment per patient size (includes targeted exams where dose is matched to clinical indication); or iterative reconstruction. Contrast material: OMNIPAQUE; Contrast volume: 100 ml; Contrast route: INTRAVENOUS (IV); COMPARISON: CTA CHEST PE PROTOCOL 12/24/2019 4:05 PM FINDINGS: Liver: Periportal edema. Few < 1.0 cm lesions. Gallbladder and bile ducts: Gallbladder distension with apparent mild asymmetric wall thickening. No significant ductal dilation. Pancreas: Unremarkable. No ductal dilation. Spleen: Few calcifications. Mildly enlarged. Adrenals: No mass. Kidneys and ureters: Unremarkable. No significant hydronephrosis. Stomach and bowel: No definite mural thickening. No obstruction. Appendix: No findings to suggest appendicitis. Intraperitoneal space: No significant fluid collection. No definite free air. Vasculature: Unremarkable. No aneurysm. Lymph nodes: No pathologically enlarged lymph nodes. Bladder: Unremarkable. Reproductive: Unremarkable as visualized. Bones/joints: Probable bone islands. Limbus vertebra. No acute fracture. Soft tissues: Unremarkable. IMPRESSION: 1. Periportal edema, nonspecific. Clinical correlation is needed. 2. Gallbladder distension. Suggest ultrasound. 3. Liver lesions. In a low-risk patient, this lesion is most likely to be benign and no further follow-up is recommended. In a high-risk patient, recommend follow-up MRI in 3-6 months (or earlier if warranted by the patient's specific clinical circumstances). This report has been flagged for a noncritical result requiring follow-up and to be tracked by the [facility] tracking system. REPORT SIGNED IN OTHER VENDOR SYSTEM 02/02/2020 Reported By: Best Ramires MD CC: Transcribed Date/Time: 02/02/2020 (035) Hardboard Factory Worker: Printed Date/Time: 02/02/2020 (035) PAGE 2 Signed Report us Derrick Bill MD IMG CT ORDERABLES Final Res ult * XR CHEST 1 VIEW (02/02/2020 0:59 EDT) Anatomical Region Laterality Modality Computed Radiogr aphy 02/02/2020 0:59 EDT Narrative 02/02/2020 0:59 EDT ? EXAM: RADIOLOGY/CHEST-PORTABLE ?EX. D/ (0050) ? CLINICAL INFORMATION: ? fever ? PROCEDURE INFORMATION: ? Exam: XR Chest, 1 View ? Exam date and time: 02/01/2020 11:40 PM ? Age: 39 years old ? Clinical indication: Fever ? TECHNIQUE: ? Imaging protocol: XR of the chest ? Views: 1 view. ? COMPARISON: ? CR CHEST (PA ?? LAT) 12/24/2019 1:57 PM ? FINDINGS: ? Tubes, catheters and devices: EKG leads project over the chest. ? Lungs: Bilateral lung base atelectasis/ground-glass airspace ? disease, right greater than left. Symmetric lung volumes. No ? segmental consolidations. ? Pleural space: Unremarkable. No pleural effusion. No ? pneumothorax. ? Heart/Mediastinum: Unremarkable. No cardiomegaly. ? Bones/joints: Unremarkable. ? IMPRESSION: ? Bilateral lung base atelectasis/ground-glass airspace disease, ? right greater than left. Suggest follow-up. ? Imaging features can be seen with (COVID-19) pneumonia, though ? are nonspecific and can occur with a variety of infectious and ? noninfectious precesses. [id number] ? RSNA Expert Consensus Document on Reporting Chest CT findings ? related to COVID-19. ? Endorsed by the STR ?? ACR 10/10/2019 ? This report has been flagged for a noncritical result requiring ? follow-up and to be tracked by the [facility] tracking system. ? REPORT SIGNED IN OTHER VENDOR SYSTEM 02/02/2020 ?Reported By: Clark Dooley MD ? CC: ? Transcribed Date/Time: 02/02/2020 (0059) ? Hardboard Factory Worker: ? Printed Date/Time: 02/02/2020 (005) ? PAGE 1 ? Signed Report ? Procedure Note Clark Dooley MD - 02/02/2020 EXAM: RADIOLOGY/CHEST-PORTABLE EX. D/ (0050) CLINICAL INFORMATION: fever PROCEDURE INFORMATION: Exam: XR Chest, 1 View Exam date and time: 02/01/2020 11:40 PM Age: 39 years old Clinical indication: Fever TECHNIQUE: Imaging protocol: XR of the chest Views: 1 view. COMPARISON: CR CHEST (PA LAT) 12/24/2019 1:57 PM FINDINGS: Tubes, catheters and devices: EKG leads project over the chest. Lungs: Bilateral lung base atelectasis/ground-glass airspace disease, right greater than left. Symmetric lung volumes. No segmental consolidations. Pleural space: Unremarkable. No pleural effusion. No pneumothorax. Heart/Mediastinum: Unremarkable. No cardiomegaly. Bones/joints: Unremarkable. IMPRESSION: Bilateral lung base atelectasis/ground-glass airspace disease, right greater than left. Suggest follow-up. Imaging features can be seen with (COVID-19) pneumonia, though are nonspecific and can occur with a variety of infectious and noninfectious precesses. [id number]* RSNA Expert Consensus Document on Reporting Chest CT findings related to COVID-19. Endorsed by the STR ACR 10/10/2019 This report has been flagged for a noncritical result requiring follow-up and to be tracked by the [facility] tracking system. REPORT SIGNED IN OTHER VENDOR SYSTEM 02/02/2020 Reported By: Clark Dooley MD CC: Transcribed Date/Time: 02/02/2020 (005) Hardboard Factory Worker: Printed Date/Time: 02/02/2020 (882) PAGE 1 Signed Report us Derrick Bill MD IMG DIAGNOSTIC IMAGING ORDE RABLES Final Result * EKG 12-LEAD (02/02/2020 0:14 EDT) 02/02/2020 0:14 EDT [facility] - 02/02/2020 0:14 EDT ? [facility] ? Test Date: ?2020-02-02 00:14:58 Pat Name: ? MARCOS CAMEJO ?Department: ?Room: ? ED Gender: ? M ?Analog Device Designer: ?? CG5 : ?1980 ? Requested By: Order Number: ?Dinorah PEREZ: ?? Loren Chao MD ? Measurements Intervals ?[place] ? Rate: ? 123 ?P: ?39 [place]: ? 134 ?QRS: ?63 QRSD: ? 90 ? T: ?42 QT: ? 320 ? QTc: ?458 ? Interpretive Statements Sinus tachycardia Otherwise normal ECG Compared to ECG 12/24/2019 13:43:40 Sinus rhythm no longer present Electronically Signed On 02-02-2020 22:04:56 EDT by Loren Chao MD [email or web address] Procedure Note Loren Chao MD - 02/02/2020 [facility] Test Date: 2020-02-02 00:14:58 Pat Name: MARCOS CAMEJO Department: Room: ED Gender: M Analog Device Designer: CG5 : 1980 Requested By: Order Number: Reading MD: Loren Chao MD Measurements Intervals [place] Rate: 123 P: 39 NJ: 134 QRS: 63 QRSD: 90 T: 42 QT: 320 QTc: 458 Interpretive Statements Sinus tachycardia Otherwise normal ECG Compared to ECG 12/24/2019 13:43:40 Sinus rhythm no longer present Electronically Signed On 02-02-2020 22:04:56 EDT by Loren Chao MD [email or web address] us Derrick Bill MD CARDIAC ECG ORDERABLES Tia clarke Result [facility] [address] [place] [address] documented in this encounter Visit Diagnoses Not on filedocumented in this encounter Additional Health Concerns Infection Onset Date Last Indicated Resolved Time MRSA Comment:05/24/2024 +MRSA blood cultures [facility] Pos blood 05/26/24, 05/27/24, 05/29/24, 05/30/24, 06/01/24, 06/03/24, 06/04/24, 06/05/24 - Radha Wakefieldasi 06/08/2024 2024 06/05/2024 documented as of this encounter Care Teams Escrow Closer Relationship Specialty Start Date End Date None, Provider PCP - General 02/20/14 02/04/20 None, Provider PCP - General 02/05/20 02/16/23 Milo Baer MD [address] [place] [address] [phone] PCP - General Family Medicine - Primary Care 02/17/23 05/25/24 Raffi Merida DO [address] [place] [address] [phone] PCP - General Family Medicine - Primary Care 05/26/24 None, Provider 02/05/20 05/25/24 documented as of this encounter
--- OUTSIDE RECORDS SUMMARY | 2024-07-02 14:34 | XMS_ITS | Encounter Summary ---
Author Organization [facility] Address [address] [place] [address] Care Team Providers Care Prop And Scenery Maker Name Role Phone None, Provider Primary Care Provider Unavailabl e Reason for Visit * Reason Comments Wound Infection Pt believes he has a nother staph infection. Site on left forearm and back of head. Arm is swollen and red. Encounter Details Date Type Department Care Team (Late st Contact Info) Description 05/31/2019 0:49 EST - 05/31/2019 2:38 EST Emergency [facility] Emergency Department - [address] [address] Padmini Israel MD [address] [facility], [address] 1 [place] [address] Cellulitis of left upper extremity (Primary Dx) Discharge Disposition: Home or Self [...] Sign Reading Time Taken Comments Blood Pressure 127/78 05/31/2019 0237 EST Pulse 77 05/31/2019 0237 EST Temperature 36.9 ??C (98.5 ??F) 05/31/2019 0237 EST Respiratory Rate 19 05/31/2019 0237 EST Oxygen Saturation 97% 05/31/2019 0237 EST Inhaled Oxygen Concentration - - Weight 83.9 kg (185 lb) 05/31/2019 0047 EST Height 177.8 cm (5' 10) 05/31/2019 0047 EST Body Mass Index 26.54 05/31/2019 0047 EST documented in this encounter Discharge Instructions * Discharge Instructions* Franci Marshall MD - 05/31/2019 2:13 EST Images from the original note were not included. - Take your antibiotics until they are all gone - We will give you a list of Primary Care Providers accepting new patients, call to establish with their office for follow up - Call or come back in if the pain/redness/swelling gets worse, or if you start having new fevers/chills [facility] Patient Instructions Cellulitis: Care Instructions Your Care Instructions Cellulitis is a skin infection caused by bacteria, most often strep or staph. It often occurs aftera break in the skin from a scrape, cut, bite, or puncture, or after a rash. Cellulitis may be treated without doing tests to find out what caused it. But your doctor may do tests, if needed, to look for a specific bacteria, like methicillin-resistant Staphylococcus aureus (MRSA). The doctor has checked you carefully, but problems can develop later. If you notice any problems ornew symptoms, get medical treatment right away. Follow-up care is a weller part of your treatment and safety. Be sure to make and go to all appointments, and call your doctor if you are having problems. It's also a good idea to know your test resultsand keep a list of the medicines you take. How can you care for yourself at home? ?? Take your antibiotics as directed. Do not stop taking them just because you feel better. You need to take the full course of antibiotics. ?? Prop up the infected area on pillows to reduce pain and swelling. Try to keep the area above thelevel of your heart as often as you can. ?? If your doctor told you how to care for your wound, follow your doctor's instructions. If you did not get instructions, follow this general advice: ? Wash the wound with clean water 2 times a day. Don't use hydrogen peroxide or alcohol, which can slow healing. ? You may cover the wound with a thin layer of petroleum jelly, such as Vaseline, and a nonstick bandage. ? Apply more petroleum jelly and replace the bandage as needed. ?? Be safe with medicines. Take pain medicines exactly as directed. ? If the doctor gave you a prescription medicine for pain, take it as prescribed. ? If you are not taking a prescription pain medicine, ask your doctor if you can take an aldb-luy-fqshhfp medicine. To prevent cellulitis in the future ?? Try to prevent cuts, scrapes, or other injuries to your skin. Cellulitis most often occurs wherethere is a break in the skin. ?? If you get a scrape, cut, mild burn, or bite, wash the wound with clean water as soon as you krystal help avoid infection. Don't use hydrogen peroxide or alcohol, which can slow healing. ?? If you have swelling in your legs (edema), support stockings and good skin care may help preventleg sores and cellulitis. ?? Take care of your feet, especially if you have diabetes or other conditions that increase the risk of infection. Wear shoes and socks. Do not go barefoot. If you have athlete's foot or other skin problems on your feet, talk to your doctor about how to treat them. When should you call for help? Call your doctor now or seek immediate medical care if: ? You have signs that your infection is getting worse, such as: ? Increased pain, swelling, warmth, or redness. ? Red streaks leading from the area. ? Pus draining from the area. ? A fever. ? You get a rash. ??Watch closely for changes in your health, and be sure to contact your doctor if: ? You do not get better as expected. Where can you learn more? Go to https://www.Scan•Jour.net/[employer]ealth or log into your [employer] account at https://mGaadi.ViroXis.org Enter X309 in the search box to learn more about Cellulitis: Care Instructions. Current as of: October 17, 2018 Content Version: 12.2 ?? [id number] [employer]. Care instructions adapted under license by [facility]. If you have questions about a medical condition or this instruction, always askyour healthcare professional. [employer] disclaims any warranty or liability for youruse of this information. documented in this encounter Medications at Time of Discharge Multivitamins with Minerals tablet Take 1 Tab by mouth daily. 07/02/2024 NAPROXEN SODIUM (ALEVE ORAL) Take by mouth. 07/02/2024 sulfamethoxazole- trimethoprim (BACTRIM/CO-TRIMO XAZOLE DS) 800-160 mg per tablet Take 1 Tab by mouth daily for 7 days. 7 Tab 05/31/2019 06/07/2019 documented as of this encounter Ordered Prescriptions Prescription Sig Dispense Quantity Refills Last Filled Start Date End Date sulfamethoxazole-tr imethoprim (BACTRIM/CO-TRIMOXA ZOLE DS) 800-160 mg per tablet Take 1 Tab by mouth daily for 7 days. 7 Tab 05/31/2019 06/07/2019 documented in this encounter Discharge Disposition Disposition Code Departure Means Destination Home or Self Long-Term documented in this encounter ED Notes * Sejal Connell RN - 05/31/2019 0237 EST Patient prepared for discharge. Instructions reviewed and patient verbalized understanding. NAD noted. VSS. Ambulated with safe and steady gait. * Padmini Israel MD - 05/31/2019 0147 EST This patient received an evaluation and medical screening exam for emergent medical conditions at the [facility] on 05/31/2019 Scribe attestation: This documentation is recorded by Shanice Bejarano acting as Scribe under the direction and presence of Dr. Israel. I, Padmini Israel MD, have utilized a scribe to help in the preparation of this note. I have reviewed and agree with the scribe's note and I have made modifications as necessary. TAMIKO Camejo is a 39 y.o. male with PMH including staphylococcal infection and herniated cervical disc who presents to the ED for rash. Patient endorses erythema, edema, and tenderness to his LUE that began two days ago. He notes his symptoms have slowly worsened since onset. Patient has a tattoo over the skin that is affected and he states that this is not a recent tattoo. Per patient, he has previously had Staphylococcal infections. Patient expresses concern his symptoms tonight may be another Staph infection. Otherwise, patient states he is not typically prone to infections or immunocompromised. Patient notes that his most recent tetanus vaccination was a few yearsago. Patient states allergy to Penicillin. Social history: Patient endorses marijuana use, but denies any other recreational drug use, including IVDU. He is reportedly a former smoker. He denies any alcohol consumption. History was provided by: the patient and medical records Patient's pertinent PMH, FH, SH were reviewed and updated PRN. ROS A 10-point review of systems was performed. The patient answered negative to all questions with theexceptions of those explicitly detailed as positives in the HPI. Pertinent negatives are also explicitly stated. Physical Exam Vital Signs Temp: 35.9 ??C (96.6 ??F) Temp src: Temporal Pulse: 103 Resp: 18 SpO2: 100 % BP: 131/81 BP Device: BP Machine BP Patient Position: Sitting BP Cuff Location: Right arm O2 Device: None (Room air) Physical Exam Constitutional: He is oriented to person, place, and time. He appears well- developed and well-nourished. No distress. Strong odor of marijuana. HENT: Head: Normocephalic and atraumatic. Eyes: Conjunctivae and EOM are normal. Neck: Normal range of motion. Neck supple. Cardiovascular: Intact distal pulses. Pulmonary/Chest: Effort normal. No respiratory distress. Musculoskeletal: Normal range of motion. Neurological: He is alert and oriented to person, place, and time. Skin: Skin is warm and dry. No rash noted. He is not diaphoretic. No erythema. No pallor. Psychiatric: He has a normal mood and affect. His behavior is normal. Nursing note and vitals reviewed. ED Course A medical screening exam was performed. The patient is a 39 y.o. male with a history of Staphylococcal infection who presents to the ED with rash. On exam, patient is generally well-appearing and in NAD. Patient afebrile on arrival. Limited Soft Tissue Bedside Ultrasound: Findings include no evidence of drain- able fluid collection. Images obtained, reviewed, and interpreted independently by myself. Please see formal report in the [facility] Images section. Images saved in PACS. Discussed the plan going forward with the patient. I explained that although there is no abscess atthis time, that does not mean he will not develop one in the future. Plan to discharge the patient with a prescription for antibiotics. Patient reports he does not have a PCP. Plan to give him a listof accepting providers in the area prior to discharge so he may follow-up. Patient was agreeable tothis. Patient given one dose of Bactrim PO for cellulitis. Patient discharged to home/self care with prescription for Bactrim. Sxs to monitor and return for given to the patient, who is comfortable with the plan. While under my care in the Emergency Department, the patient's pain was managed to an adequate level weighing risk vs. benefit of medication. Impression Final diagnoses: Cellulitis of left upper extremity Disposition Discharged Disposition decisions were made weighing risks and benefits of hospitalization vs. outpatient treatment, the risk for further decompensation, and the patient???s wishes. The patient was stable, improved, or requested discharge. Prior to discharge my usual and customaryreturn precautions were reviewed with the patient and/or family. This included follow-up instructions and reasons to return to the Emergency Department if condition worsens, does not improve as expected, or other new concerns arise. At the end of my care of the patient, the patient's pain was 3 on a zero to ten scale. Any further pain treatment will be at the discretion of the provider following up with the patient based on their clinical assessment. documented in this encounter Plan of Treatment Not on file documented as of this encounter Procedures Procedure Name Priority Date/Time Associated Diagnosis Comments POCT US ED SOFT TISSUE STAT 05/31/2019 1:54 EST documented in this encounter Results * POCT US ED SOFT TISSUE (05/31/2019 1:54 EST) Anatomical Region Laterality Modality Abdomen Ultrasound 05/31/2019 3:00 EST Narrative 05/31/2019 3:46 EST [facility] - Ultrasound Exam Date: 05/31/2019 Exam Type: POCT US ED SOFT TISSUE Real Estate Appraiser Supervisor: Padmini Israel MD Attending: N/A Worksheet: [id number] Exam Information: ?? A focused (limited) ultrasound of soft tissue was performed to evaluate for cellulitis, abscess, or foreign body. ?? Exam type: Clinically indicated Indication(s) for Exam: ?? The exam was performed with the following indications: Soft tissue swelling Views obtained/location & Images Saved for These Views: ?? Multiple sonographic views were obtained in the following specific location: left forearm Findings: ?? Exam of the above structures revealed the following findings: Cellulitis ?? If cellulitis is present, note the extent (cm) =: 1 Confirmatory study: ?? What confirmatory study was done?: Not applicable Interpretation: ?? Cellulitis of soft tissue (see above) Physician Signature: ?? I review and approve of the documentation above.: Signed by Padmini Israel MD on Friday, May 31, 2019 at 3:46:25 AM This exam was performed and interpreted by the [facility] Staff Procedure Note Padmini Israel MD - 06/07/2019 [facility] - Ultrasound Exam Date: 05/31/2019 Exam Type: POCT US ED SOFT TISSUE Real Estate Appraiser Supervisor: Padmini Israel MD Attending: N/A Worksheet: [id number] Exam Information: A focused (limited) ultrasound of soft tissue was performed to evaluatefor cellulitis, abscess, or foreign body. Exam type: Clinically indicated Indication(s) for Exam: The exam was performed with the following indications: Soft tissueswelling Views obtained/location & Images Saved for These Views: Multiple sonographic views were obtained in the following specificlocation: left forearm Findings: Exam of the above structures revealed the following findings:Cellulitis If cellulitis is present, note the extent (cm) =: 1 Confirmatory study: What confirmatory study was done?: Not applicable Interpretation: Cellulitis of soft tissue (see above) Physician Signature: I review and approve of the documentation above.: Signed by Katie PEREZ on Friday, May 31, 2019 at 3:46:25 AM This exam was performed and interpreted by the [facility] Staff us Padmini Israel MD [facility] POCT US ORDERABLES Final Result documented in this encounter Visit Diagnoses Diagnosis Cellulitis of left upper extremity- Primary Cellulitis and abscess of upper arm and forearm documented in this encounter Administered Medications Inactive Administered Medications - up to 3 most recent administrations Medication Order MAR Action Action Date Dose Rate Site sulfamethoxazole-trimethoprim (BACTRIM/CO-TRIMOXAZOLE DS) 800-160 mg per tablet 1 Tab 1 Tablet, oral, NOW X1, 1 dose, On Wed05/31/19 at 0215, STAT Given 05/31/2019 2:32 EST 1 Tablet documented in this encounter Active and Recently Administered Medications Times are shown in EST. Scheduled Medication Order 05/29/2019 05/30/2019 05/31/2019 sulfamethoxazole-trimethoprim (BACTRIM/CO-TRIMOXAZOLE DS) 800-160 mg per tablet 1 Tab (COMPLETED) 1 Tablet, oral, NOW X1, 1 dose, On Wed05/31/19 at 0215, STAT 0232 (Given - Provid er: Sejal Connell RN) documented in this encounter Orders Medications Ordered That Kin ht Not Have Been Administered Count Last Ordered Date First Ordered Date sulfamethoxazole-trimethopri m (BACTRIM/CO-TRIMOXAZOLE DS) 800-160 mg per tablet 1 Tab 1 05/31/2019 documented in this encounter Care Teams Prop And Scenery Maker Relationship Specialty Start Date End Date None, Provider PCP - General 02/20/14 02/04/20 documented as of this encounter
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
--- OUTSIDE RECORDS SUMMARY | 2024-07-02 14:34 | XMS_ITS | Encounter Summary ---
Author Organization [facility] Address [address] [place] [address] Care Team Providers Care Aircraft Painter Apprentice Name Role Phone None, Provider Primary Care Provider Unavailabl e Reason for Visit * Reason Comments Pharyngitis Otalgia Encounter Details Date Type Department Care Team (Latest Contact Info) Description 06/07/2014 9:48 EST - 06/07/2014 10:51 EST Hospital Encounter [facility] - [address] [phone] Mack Murphy MD [address] [place] [phone] Pharyngitis (Primary Dx) Discharge Disposition: Home or Self [...] Sign Reading Time Taken Comments Blood Pressure 129/62 06/07/2014 1000 EST Pulse 88 06/07/2014 1000 EST Temperature 37.1 ??C (98.7 ??F) 06/07/2014 1000 EST Respiratory Rate 18 06/07/2014 1000 EST Oxygen Saturation - - Inhaled Oxygen Concentration - - Weight - - Height - - Body Mass Index - - documented in this encounter Discharge Diagnoses Diagnosis 462. ACUTE PHARYNGITIS[ICD-9-CM] documented in this encounter Discharge Instructions * Attachments The following attachments cannot be sent through Care Everywhere. * SORE THROAT (MONTSERRATIAN) documented in this encounter Medications at Time of Discharge clindamycin (CLEOCIN) 150 mg capsule Take 2 Caps by mouth every 6 hours for 7 days. 56 Cap 0 06/07/2014 06/14/2014 Multivitamins with Minerals tablet Take 1 Tab by mouth daily. 07/02/2024 NAPROXEN SODIUM (ALEVE ORAL) Take by mouth. 07/02/2024 documented as of this encounter Ordered Prescriptions Prescription Sig Dispense Quantity Refills Last Filled Start Date End Date clindamycin (CLEOCIN) 150 mg capsule Take 2 Caps by mouth every 6 hours for 7 days. 56 Cap 0 06/07/2014 06/14/2014 documented in this encounter Discharge Disposition Disposition Code Departure Means Destination Comment s Home or Self Care Walk-out pain management, SxS to return, ED or PCP, medication considerations. documented in this encounter ED Notes * Mack Murphy MD - 06/07/2014 1040 EST Images from the original note were not included. DOS: 06/07/2014 Chief Complaint Patient presents with ??? Pharyngitis ??? Otalgia The patient is a 34 y.o. male who presents today with Pharyngitis and Otalgia The history is provided by the patient. Pharyngitis Location: Left Quality: Aching Severity: Moderate Onset quality: Gradual Duration: 2 days Timing: Constant Progression: Unchanged Chronicity: New Ineffective treatments: OTC medications Associated symptoms: chills, ear pain and trouble swallowing (Due to pain.) Associated symptoms: no chest pain, no cough, no drooling, no ear discharge, no eye discharge, no fever, no headaches, no neck stiffness, no night sweats, no plugged ear sensation, no postnasal drip,no rash, no rhinorrhea, no shortness of breath and no sinus congestion Otalgia Associated symptoms: no cough, no diarrhea, no ear discharge, no fever, no headaches, no rash, no rhinorrhea and no vomiting Review of Systems Constitutional: Positive for chills. Negative for fever and night sweats. HENT: Positive for ear pain and trouble swallowing (Due to pain.). Negative for dental problem, drooling, ear discharge, postnasal drip and rhinorrhea. Eyes: Negative for discharge and redness. Respiratory: Negative for cough and shortness of breath. Cardiovascular: Negative for chest pain. Gastrointestinal: Negative for nausea, vomiting and diarrhea. Musculoskeletal: Negative for neck stiffness. Skin: Negative for rash. Neurological: Negative for headaches. No current facility-administered medications for this encounter. Current Outpatient Prescriptions Medication Sig Dispense Refill ??? clindamycin (CLEOCIN) 150 mg capsule Take 2 Caps by mouth every 6 hours for 7 days. 56 Cap 0 ??? Multivitamins with Minerals tablet Take 1 Tab by mouth daily. ??? NAPROXEN SODIUM (ALEVE ORAL) Take by mouth. Allergies Allergen Reactions ??? Penicillins There are no active problems to display for this patient. Past Medical History Diagnosis Date ??? Herniated cervical disc History Substance Use Topics ??? Smoking status: Current Every Day Smoker -- 1.00 packs/day ??? Smokeless tobacco: Not on file ??? Alcohol Use: No History reviewed. No pertinent family history. BP 129/62 Pulse 88 Temp(Src) 98.7 ??F (37.1 ??C) (Temporal) Resp 18 Physical Exam Constitutional: He appears well-developed and well-nourished. HENT: Right Ear: External ear normal. Left Ear: External ear normal. Mouth/Throat: Mucous membranes are normal. He has dentures. No oral lesions. No trismus in the jaw.No edematous. Oropharyngeal exudate and posterior oropharyngeal erythema (Generalized.) present. Noposterior oropharyngeal edema or tonsillar abscesses. Exudate left side in crypt. No abscess. No other lesions. Left TM mild erythema. Eyes: Conjunctivae are normal. Neck: Normal range of motion. Neck supple. Pulmonary/Chest: Effort normal. No respiratory distress. Lymphadenopathy: He has cervical adenopathy. Neurological: He is alert. Skin: Skin is warm and dry. Psychiatric: He has a normal mood and affect. His behavior is normal. Consult orders: None PCP: Provider None Results for orders placed during the hospital encounter of 06/07/14 RAPID STREP Result Value Range Rapid Strep A Screen Neg Radiology orders: None Imaging Results None Procedures Course: A medical screening exam was performed. Disposition: Discharged The patient's pain was managed to an adequate level weighing risk vs. benefit of further medications. Upon departure from [facility], the patient's pain was 5 on a zero to ten scale. Condition at departure from the [facility] : Stable Final diagnoses: Pharyngitis Sore throat, rapid strep test negative. Culture pending. Given appearance and predominance of left sided sx with possible early abscess, placed on clindamycin. Reviewed symptomatic treatment and indications for follow up. No supervision required. [facility] 06/07/2014 11:32 * Beena Orta RN - 06/07/2014 0958 EST Pt presents with c/o intermittent SUH, chills/sweats, sore throat and left ear pain. Onset 2 days ago. Pain at a level of 5/10 increasing to a 10/10 with swallowing. Erythematous oropharyngeal cavity with what appears to be an ulceration noted to left tonsil . Denies N/V. Aleve 2 tabs last yesterdaywith no relief. documented in this encounter Plan of Treatment Not on file documented as of this encounter Procedures Procedure Name Priority Date/Time Associated Diagnosis Comments GROUP A STREP CULTURE STAT 06/07/2014 10:08 EST Pharyngitis RAPID STREP STAT 06/07/2014 10:08 EST Pharyngitis documented in this encounter Results * PHARYNGITIS CULTURE (06/07/2014 10:08 EST) Result No group A beta streptococci isolated. Usual silvia-pharyngeal toño. 06/09/2014 7:26 EST [facility] Specimen of unknown material (specimen) ENTIRE THROAT / Unknown 06/07/2014 10:08 EST 06/07/2014 10:22 EST Mariann Tom NP MICROBIOLOGY - GENERAL ORD ERABLES Final Result [facility] [address] [place] [address] * RAPID STREP (06/07/2014 10:08 EST) Rapid Strep A Screen Neg 06/07/2014 10:21 EST [facility] Specimen of unknown material (specimen) TOPOGRAPHY UNKNOWN / Unknown 06/07/2014 10:08 EST 06/07/2014 10:15 EST us Mariann Tom NP MICROBIOLOGY - GENERAL ORD ERABLES Final Result Performing Organization Address City/[facility] Co de Phone Number [facility] [address] [place] [address] documented in this encounter Visit Diagnoses Diagnosis Pharyngitis- Primary Acute pharyngitis documented in this encounter Historical Medications * This list may reflect changes made after this encounter. NAPROXEN SODIUM (ALEVE ORAL) Take by mouth. 07/02/2024 added in this encounter Care Teams Aircraft Painter Apprentice Relationship Specialty Start Date End Date None, Provider PCP - General 02/20/14 02/04/20 documented as of this encounter
--- OUTSIDE RECORDS SUMMARY | 2024-07-02 14:34 | XMS_ITS | Encounter Summary ---
Author Organization [facility] Address [address] [place] [address] Care Team Providers Care Manager Material Name Role Phone None, Provider Primary Care Provider Unavailabl e Encounter Details Date Type Department Care Team (Late st Contact Info) Description 06/19/2015 Historical Results Only [facility] Radiology Results [address] [phone] Franci Greenwood, COUNTRY SALES MANAGER ENP [address] [place] [phone] Social History Tobacco Use Types [...] Procedure Name Priority Date/Time Associated Diagnosis Comments US EXTREMITY 06/19/2015 15:54 EST documented in this encounter Results * US EXTREMITY (06/19/2015 15:54 EST) Anatomical Region Laterality Modality Other 06/19/2015 15:5 4 EST Narrative 06/19/2015 15:58 EST ? EXAM: ULTRASOUND/DOPPLER VEIN EXTREMITY L EX. D/ (1543) ? CLINICAL INFORMATION: ? PAIN/SWELLING LT UPPER ARM S/P TRAUMA ? INDICATION: Pain and swelling. Rule out thrombosis. History of ? trauma. ? TECHNIQUE: Left upper extremity venous ultrasound was performed. ? Color flow Doppler was obtained. ? Comparison: None. ? Findings: The major venous structures of the left upper extremity are ? widely patent. Normal augmentation is noted. Normal compression is ? seen. ? Impression: ? 1. No left upper extremity DVT detected. ? REPORT SIGNED IN OTHER VENDOR SYSTEM 06/19/2015 ?Reported By: Juan Leon MD ? CC: ? Transcribed Date/Time: 06/19/2015 (6789) ? Field Attendant: ? Printed Date/Time: 12/28/2018 (0917) ? PAGE 1 ? Signed Report ? Procedure Note Juan Leon MD - 05/24/2019 EXAM: ULTRASOUND/DOPPLER VEIN EXTREMITY L EX. D/ (1543) CLINICAL INFORMATION: PAIN/SWELLING LT UPPER ARM S/P TRAUMA INDICATION: Pain and swelling. Rule out thrombosis. History of trauma. TECHNIQUE: Left upper extremity venous ultrasound was performed. Color flow Doppler was obtained. Comparison: None. Findings: The major venous structures of the left upper extremityare widely patent. Normal augmentation is noted. Normal compression is seen. Impression: 1. No left upper extremity DVT detected. REPORT SIGNED IN OTHER VENDOR SYSTEM 06/19/2015 Reported By: Juan Leon MD CC: Transcribed Date/Time: 06/19/2015 (1596) Field Attendant: Printed Date/Time: 12/28/2018 (9635) PAGE 1 Signed Report us Franci Greenwood COUNTRY SALES MANAGER ENP IMG US ORDERABLES Final Re sult documented in this encounter Visit Diagnoses Not on filedocumented in this encounter Care Teams Manager Material Relationship Specialty Start Date End Date None, Provider PCP - General 02/20/14 02/04/20 documented as of this encounter
--- OUTSIDE RECORDS SUMMARY | 2024-07-02 14:34 | XMS_ITS | Encounter Summary ---
Author Organization [facility] Address [address] [place] [address] Care Team Providers Care Dragline Mechanic Name Role Phone Unavailable Primary Care Provider Unavailabl e Encounter Details Date Type Department Care Team (Latest Contact Info) Description 07/10/1999 11:26 EST - 07/10/1999 11:59 EST Hospital Encounter [facility] - [address] [address] Carlos Alberto Serna MD [address] [place] [phone] Discharge Disposition: Auto Discharge Social History Tobacco Use Types Packs/Day Years Used Date Smoking Tobacco: Never Assessed Sex and Gender Information Value Date Recorded Sex Assigned at Not on file Legal Sex Male 17:33 EST Gender Identity Male 05/31/2019 1:50 EST Sexual Orientation Not on file documented as of this encounter Discharge Disposition Disposition Code Departure Means Destination Auto Discharge documented in this encounter Plan of Treatment Not on file documented as of this encounter Visit Diagnoses Not on filedocumented in this encounter
--- OUTSIDE RECORDS SUMMARY | 2024-07-02 14:34 | XMS_ITS | Encounter Summary ---
Author Organization [facility] Address [address] [place] [address] Care Team Providers Care Cemetery Keeper Name Role Phone Unavailable Primary Care Provider Unavailabl e Encounter Details Date Type Department Care Team (Latest Contact Info) Description 10/28/1999 1:53 EDT - 10/28/1999 11:59 EDT Hospital Encounter [facility] Emergency Department - [facility] [address] [place] [address] Emergency, Default, MD Discharge Disposition: Home or Self Care [...]
--- OUTSIDE RECORDS SUMMARY | 2024-07-02 14:34 | XMS_ITS | Encounter Summary ---
Author Organization [facility] Address [address] [place] [address] Care Team Providers Care Edge Burnisher Uppers Name Role Phone None, Provider Primary Care Provider Unavailabl e Reason for Visit * Reason Comments Penile Discharge Encounter Details Date Type Department Care Team (Latest Contact Info) Description 07/02/2019 14:05 EST - 07/02/2019 15:44 EST Hospital Encounter [facility] [address] [place] [address] Mariann Tom NP [address] [place] [phone] Dysuria (Primary Dx); STD (sexually transmitted disease) Discharge Disposition: Home or Self Care Social [...] Sign Reading Time Taken Comments Blood Pressure 131/75 07/02/2019 1401 EST Pulse 78 07/02/2019 1401 EST Temperature 36.7 ??C (98.1 ??F) 07/02/2019 1401 EST Respiratory Rate 20 07/02/2019 1401 EST Oxygen Saturation 97% 07/02/2019 1401 EST Inhaled Oxygen Concentration - - Weight - - Height - - Body Mass Index - - documented in this encounter Discharge Instructions * Attachments The following attachments cannot be sent through Care Everywhere. * STI (Israeli) * Safer Sex (Israeli) documented in this encounter Medications at Time of Discharge Multivitamins with Minerals tablet Take 1 Tab by mouth daily. 07/02/2024 NAPROXEN SODIUM (ALEVE ORAL) Take by mouth. 07/02/2024 documented as of this encounter Discharge Disposition Disposition Code Departure Means Destination Home or Self Intermediate documented in this encounter ED Notes * Annette Rhodes, DAVID - 07/02/2019 1544 EST Chart accessed to re-order a misordered specimen. * Mariann Tom APRN - 07/02/2019 1506 EST DOS: 07/02/2019 Chief Complaint Patient presents with ??? Penile Discharge The patient is a 39 y.o. male who presents today with Penile Discharge Otherwise healthy patient, presents for a 2 day history of dysuria, increasing urinary frequency, and thick/clear penile discharge. He denies any fever or testicular pain. He does endorse some low back pain. He had an unprotected sexual encounter with a female friend 4 days ago (unprotected). He has had 5 partners, all female and unprotected in the last year. Review of Systems No current facility-administered medications for this encounter. Current Outpatient Medications Medication Sig Dispense Refill ??? Multivitamins with Minerals tablet Take 1 Tab by mouth daily. ??? NAPROXEN SODIUM (ALEVE ORAL) Take by mouth. Allergies Allergen Reactions ??? Penicillins There are no active problems to display for this patient. Past Medical History: Diagnosis Date ??? Arthritis ??? Degenerative joint disease ??? Herniated cervical disc Social History Tobacco Use ??? Smoking status: Former Smoker Packs/day: 1.00 ??? Smokeless tobacco: Current User Types: Chew Substance Use Topics ??? Alcohol use: No ??? Drug use: Yes Types: Marijuana, Methamphetamines No family history on file. BP 131/75 Pulse 78 Temp 98.1 ??F (36.7 ??C) (Tympanic) Resp 20 SpO2 97% Physical Exam Constitutional: He is oriented to person, place, and time. He appears well- developed and well-nourished. No distress. HENT: Head: Atraumatic. Pulmonary/Chest: Effort normal. Neurological: He is alert and oriented to person, place, and time. Skin: Skin is warm and dry. Psychiatric: He has a normal mood and affect. Nursing note and vitals reviewed. Consult orders: None PCP: Provider None Results for orders placed or performed during the hospital encounter of 07/02/19 POCT CSN BARCODE URINE DIPSTICK Result Value Ref Range Hold Hold POCT URINE DIPSTICK, CLINITEK Result Value Ref Range Color, UA Yellow Yellow Clarity, UA Clear Clear Glucose, UA Negative Negative mg/dL Bilirubin, UA Negative Negative Ketones, UA Negative Negative mg/dL Spec Grav, UA 1.025 1.001 - 1.035 Blood, UA Negative Negative pH, UA 6.5 <=8 Protein, UA 1+ (A) Negative mg/dL Urobilinogen, UA 0.2 0.2 - 1.0 EU/dL Nitrite, UA Negative Negative Leuk Esterase Negative Negative Tech ID [id number] HN LAB COMMENT (CLINITEK, UR) Test performed at Urgent Care Radiology orders: None Imaging Results None No orders to display Procedures URGENT CARE COURSE A medical screening exam was performed. Patient is refusing a exam and complete STD testing. GC/Chlamydia was sent. He was treated today with 250 mg IM ceftriaxone (has had cephalexin without reaction in the past), as well as 1 gram of PO Zithromax. Letter for negative, call for positive. He has already advised his partner of his symptoms. ASSESSMENT AND PLAN Final diagnoses: Dysuria STD (sexually transmitted disease) Dr.John Jack was available for supervision. DISPOSITION: Discharged The patient's pain was managed to an adequate level weighing risk vs. benefit of further medications. Upon departure from [facility], the patient's pain was 5 on a zero to ten scale. Any further pain treatment will be at the discretion of the provider following up with the patient based on their clinical assessment . Condition at departure from the [facility] : Stable MDM 07/02/2019 18:59 * Jo Ann Schumacher - 07/02/2019 1415 EST Sore throat, lower back pain, four days of burning sensation with urination, urinary hesitancy, urinary frequency, purulent discharge from penis, no groin pain, denies bloody discharge and denies blood in urine, anorexia, denies N/V/D. * Kwadwo James, DAVID - 07/02/2019 1403 EST Pt states he was exposed to STD 4 days ago- now has penile discharge burning documented in this encounter Plan of Treatment Not on file documented as of this encounter Procedures Procedure Name Priority Date/Time Associated Diagnosis Comments CHLAMYDIA/N. GONORRHOEAE AMPLIFIED NUCLEIC ACID Routine 07/03/2019 8:35 EST Dysuria POCT CSN BARCODE URINE DIPSTICK STAT 07/02/2019 15:31 EST Dysuria POCT URINE CLINITEK (DIPSTICK) - DOES NOT REFLEX STAT 07/02/2019 15:31 EST Dysuria POCT URINE DIPSTICK, CLINITEK STAT 07/02/2019 15:31 EST Dysuria documented in this encounter Results * CHLAMYDIA/N. GONORRHOEAE AMPLIFIED RNA (07/03/2019 8:35 EST) Neisseria gonorrhoeae Result Negative Negative 07/04/2019 15:03 EST [facility] Chlamydia trachomatis Result Negative Negative 07/04/2019 15:03 EST [facility] URINE / Unknown 07/03/2019 8 :35 EST 07/03/2019 8:39 EST us Mariann Tom JOB COACH/JOB DEVELOPER MICROBIOLOGY - GENERAL ORD ERABLES Final Result [facility] [address] [place] [address] * POCT CSN BARCODE URINE DIPSTICK (07/02/2019 15:31 EST) Hold Hold 07/02/2019 16:45 [facility] Urine Urine Collect / Unknown 07/02/2019 15:31 EST 07/02/2019 15:31 EST us Mariann Tom JOB COACH/JOB DEVELOPER LAB INFO SERVICE AND SUPPO RT & PHONE RESULT Final Result [facility] [address] [place] [address] * (ABNORMAL) POCT URINE DIPSTICK, CLINITEK (07/02/2019 15:31 EST) Color, UA Yellow Yellow 07/02/2019 15:39 [facility] Clarity, UA Clear Clear 07/02/2019 15:39 [facility] Glucose, UA Negative Negative mg/dL 07/02/2019 15:39 [facility] Bilirubin, UA Negative Negative 07/02/2019 15:39 [facility] Ketones, UA Negative Negative mg/dL 07/02/2019 15:39 [facility] Specific [place], Urine 1.025 1.001 - 1.035 07/02/2019 15:39 [facility] Blood, UA Negative Negative 07/02/2019 15:39 [facility] pH, UA 6.5 <=8 07/02/2019 15:39 [facility] Protein, UA 1+(A) Negative mg/dL 07/02/2019 15:39 [facility] Urobilinogen, UA 0.2 0.2 - 1.0 EU/dL 07/02/2019 15:39 [facility] Nitrite, UA Negative Negative 07/02/2019 15:39 [facility] Leuk Esterase Negative Negative 07/02/2019 15:39 [facility] head of sales promotion ID [id number] 07/02/2019 15:39 [facility] HN LAB COMMENT (CLINITEK, UR) Test performed at Urgent Care 07/02/2019 15:39 EST [facility] Urine 07/02/2019 15:3 1 EST 07/02/2019 15:39 EST us Mariann Tom JOB COACH/JOB DEVELOPER POINT OF CARE TEST ORDERAB LES Final Result [facility] [address] [place] [address] documented in this encounter Visit Diagnoses Diagnosis Dysuria- Primary STD (sexually transmitted disease) Venereal disease, unspecified documented in this encounter Administered Medications Inactive Administered Medications - up to 3 most recent administrations Medication Order MAR Action Action Date Dose Rate Site azithromycin (ZITHROMAX) tablet 1,000 mg 1,000 mg, oral, NOW X1, 1 dose, On 07/02/19 at 1500, Routine Given 07/02/2019 15:12 EST 1,000 mg cefTRIAXone (ROCEPHIN) IM injection 250 mg 250 mg, intramuscular, NOW X1, 1 dose, On 07/02/19 at 1500, Routine Given 07/02/2019 15:12 EST 250 mg documented in this encounter Active and Recently Administered Medications Times are shown in EST. Scheduled Medication Order 06/30/2019 07/01/2019 07/02/2019 azithromycin (ZITHROMAX) tablet 1,000 mg (COMPLETED) 1,000 mg, oral, NOW X1, 1 dose, On 07/02/19 at 1500, Routine 1512 (Given - Provid er: Jo Ann [place]) cefTRIAXone (ROCEPHIN) IM injection 250 mg (COMPLETED) 250 mg, intramuscular, NOW X1, 1 dose, On 07/02/19 at 1500, Routine 1512 (Given - Provid er: Jo Ann [place]) documented in this encounter Care Teams Edge Burnisher Uppers Relationship Specialty Start Date End Date None, Provider PCP - General 02/20/14 02/04/20 documented as of this encounter
--- OUTSIDE RECORDS SUMMARY | 2024-07-02 14:34 | XMS_ITS | Encounter Summary ---
Author Organization [facility] Address [address] [place] [address] Care Team Providers Care Brass Sorter Name Role Phone None, Provider Primary Care Provider Unavailabl e Encounter Details Date Type Department Care Team (Latest Contact Info) Description 05/31/2019 Travel Social History Tobacco Use Types Packs/Day [...] on filedocumented in this encounter Care Teams Brass Sorter Relationship Specialty Start Date End Date None, Provider PCP - General 02/20/14 02/04/20 documented as of this encounter
--- OUTSIDE RECORDS SUMMARY | 2024-07-02 14:34 | XMS_ITS | Encounter Summary ---
Author Organization [facility] Address [address] [place] [address] Care Team Providers Care Blue Line Trimmer Name Role Phone Unavailable Primary Care Provider Unavailabl e Encounter Details Date Type Department Care Team (Late st Contact Info) Description 07/01/1999 16:16 EST Hospital Encounter [facility] Emergency Department - [address] [id number] Rani Bustamante MD [address] [place] [phone] Discharge Disposition: Home or Self Care Social [...] Procedure Name Priority Date/Time Associated Diagnosis Comments HAND 2 VIEWS Routine 07/10/1999 10:24 EST HEMAGRAM & DIFF Routine 07/01/1999 19:37 EST SED RATE Routine 07/01/1999 19:37 EST C REACTIVE PROTEIN Routine 07/01/1999 19 :37 EST HAND 3 OR MORE VIEWS Routine 07/01/1999 18:30 EST documented in this encounter Results * HAND 2 VIEWS (07/10/1999 10:24 EST) Anatomical Region Laterality Modality Other 07/10/1999 10:2 4 EST Narrative 05/28/2009 12:54 EST FX, S/P ORIF R/O ASSESS HEALING/ALIGNMENT LEFT HAND 07/10/99 Comparison 07/01/99 FINDINGS: The previously identified pin within the soft tissues has been removed. The Boxer's fracture of the fifth metacarpal is unchanged with slight volar displacement of the distal fracture fragment. There has been slight interval healing when compared to the prior examination although the healing remains incomplete. D-07/14/99 T-07/17/99/lg Procedure Note Priya Crowley MD - 05/28/2009 MC FX, S/P ORIF R/O ASSESS HEALING/ALIGNMENT LEFT HAND 07/10/99 Comparison 07/01/99 FINDINGS: The previously identified pin within the soft tissues has been removed. The Boxer's fracture of the fifth metacarpal is unchanged with slight volar displacement of the distal fracture fragment. There has been slight interval healing when compared to the prior examination although the healing remains incomplete. D-07/14/99 T-07/17/99/lg Carlos Alberto Serna MD IMG DIAGNOSTIC IMAGING ORDERA BLES Final Result * SED. RATE:WESTERGREN (07/01/1999 19:37 EST) Sed. Rate Westergren 1 0 - 15 mm/hr [facility] 07/01/1999 19:3 7 EST 07/01/1999 19:37 EST us Rani Bustamante MD HEMATOLOGY & PF4 ORDERAB LES Final Result [facility] [address] [place] [address] * C-REACTIVE PROTEIN (07/01/1999 19:37 EST) Pathologist [facility] C-Reactive Protein <0.7 <1.0 mg/dl [facility] 07/01/1999 19:3 7 EST 07/01/1999 19:37 EST Rani Bustamante MD CHEMISTRY & BLOOD GAS OR DERABLES Final Result [facility] [address] [place] [address] * (ABNORMAL) HEMAGRAM & DIFF (07/01/1999 19:37 EST) WBC 10.17 4.0 - 10.4 K/cmm [facility] RBC 5.55 4.36 - 5.78 M/cmm [facility] Hemoglobin 17.4(H) 13.8 - 17.3 gm/dl [facility] HCT 50.5(H) 39.5 - 50.2 % [facility] MCV 91 81 - 95 fl [facility] MCH 31.4 27.6 - 33.0 pg [facility] MCHC 34.5 32.8 - 36.4 gm/dl [facility] PLT 284 141 - 320 K/cmm [facility] RDW-CV 12.7 11.8 - 14.1 % [facility] % Neutrophils 69.4 45.5 - 79.7 % [facility] % Lymphocytes 22.0 15.0 - 46.8 % [facility] % Monocytes 6.1 1.8 - 12.0 % [facility] % Eosinophils 2.2 0.6 - 6.9 % [facility] % Basophils 0.3 0.2 - 1.4 % [facility] ABS Neutrophils 7.05 2.20 - 8.85 K/cmm [facility] ABS Lymphs 2.24 1.09 - 3.30 K/cmm [facility] ABS Monocytes 0.62 0.1 - 0.8 K/cmm [facility] ABS Eosinophils 0.23 0.03 - 0.61 K/cmm [facility] ABS Basophils 0.03 0.01 - 0.11 K/cmm [facility] Type of Diff: Automated [facility] 07/01/1999 19:3 7 EST 07/01/1999 19:37 EST Rani Bustamante MD HISTORICAL LAB FOR SQ LO AD Final Result [facility] [address] [place] [address] * HAND 3 OR MORE VIEWS (07/01/1999 18:30 EST) Anatomical Region Laterality Modality Other 07/01/1999 18:3 0 EST Impressions 05/28/2009 9:05 EST IMPRESSION: Healing left 5th metacarpal fracture, which is volarly angulated. The attending radiologist has reviewed the images, and concurs with the findings described above. /sg Narrative 05/28/2009 9:05 EST R/O OSTEO S/P SURG WITH INCREASED ERYTH/TEMP LEFT HAND, THREE VIEWS: 07/01/99, 1830 FINDINGS: No comparisons. There is a healing fracture through the head of the left 5th metacarpal. It is slightly volarly angulated. There is evidence of periosteal reaction. There is a pin seen on the AP and oblique views, which is not seen on the lateral view. During the repositioning, it had fallen out. No new fractures or dislocations are seen. The soft tissues are within normal limits. Procedure Note Tobias Garcia MD / Danny Robledo MD - 05/28/2009 R/O OSTEO S/P SURG WITH INCREASED ERYTH/TEMP LEFT HAND, THREE VIEWS: 07/01/99, 1830 FINDINGS: No comparisons. There is a healing fracture through the head of the left 5th metacarpal. It is slightly volarly angulated. There is evidence of periosteal reaction. There is a pin seen on the AP and oblique views, which is not seen on the lateral view. During the repositioning, it had fallen out. No new fractures or dislocations are seen. The soft tissues are within normal limits. IMPRESSION IMPRESSION: Healing left 5th metacarpal fracture, which is volarly angulated. The attending radiologist has reviewed the images, and concurs with the findings described above. /valery Олег Zimmerman MD IMG DIAGNOSTIC IMAGING OR DERABLES Final Result documented in this encounter Visit Diagnoses Not on filedocumented in this encounter
--- OUTSIDE RECORDS SUMMARY | 2024-07-02 14:34 | XMS_ITS | Encounter Summary ---
Author Organization [facility] Address [address] [place] [address] Care Team Providers Care Vapor Coater Name Role Phone None, Provider Primary Care Provider Unavailabl e Encounter Details Date Type Department Care Team (Late st Contact Info) Description 02/02/2020 Results Only [facility] [phone] Derrick Bill MD [address] [place] [phone] Social History Tobacco Use Types Packs/Day [...] Priority Date/Time Associated Diagnosis Comments HIV 1/2 AB, P24 AG - [facility] Routine 02/02/2020 7:05 EDT COMPLETE BLOOD COUNT AND DIFFERENTIAL Routine 02/02/2020 7:05 EDT MAGNESIUM Routine 02/02/2020 7:05 EDT COMPREHENSIVE METABOLIC PANEL (CMP) Routine 02/02/2020 7:05 EDT INR Routine 02/02/2020 2:35 EDT TROPONIN I Routine 02/02/2020 2:35 EDT PROTIME Routine 02/02/2020 2:35 EDT URINALYSIS - [facility] Routine 02/02/2020 0:5 2 EDT DRUGS OF ABUSE SCREEN, URINE - [facility] Routine 02/02/2020 0:52 EDT BLOOD CULTURE - [facility] Routine 02/02/2020 0:20 EDT documented in this encounter Results * (ABNORMAL) COMPLETE BLOOD COUNT AND DIFFERENTIAL (02/02/2020 7:05 EDT) ABSOLUTE NEUTROPHIL COUN - [facility] 2.51 1.7 - 7.0 10e3/ul [facility] AT[facility]MP[facility]OC[facility]TES - [facility] 4 % 02/02/2020 8:17 EDT [facility] BASOPHILS - [facility] 0.03 0.0 - 0.3 10e3/uL 02/02/2020 8:17 T [facility] BASOPHIL - [facility] 1 0 - 2 % 0 8:17 [facility] HEMATOCRIT - [facility] 33.9(L) 39.5 - 50.2 % 02/02/2020 7:40 [facility] HEMOGLOBIN - [facility] 11.3(L) 13.8 - 17.3 g/dl 02/02/2020 7:40 [facility] LYMPH # - [facility] 1.10 0.9 - 2.9 10e3/uL 02/02/2020 8[facility] L[facility] - [facility] 25 20 - 40 % 02/02/2020 8:17 EDT [facility] MEAN CORPUSCULAR HGB - [facility] 28.9 27.6 - 33.0 pg 02/02/2020 7:40 EDT [facility] MEAN CORPUSCULAR HGB CONC - [facility] 33.3 32.8 - 36.4 g/dL 02/02/2020 7:40 EDT [facility] MEAN CELL VOLUME - [facility] 86.7 81 - 95 fl 02/02/2020 7:40 [facility] MONO # - [facility] 0.15(L) 0.3 - 0.9 10e3/uL 02/02/2020 8:17 EDT [facility] MONOCYTE - [facility] 4 0 - 12 % 0 8:17 [facility] PLATELET COUNT 196 141 - 377 10e3/ul 02/02/2020 7:40 EDT [facility] NEUTROPHILS - [facility] 66 40 - 80 % 02/02/2020 8:17 EDT [facility] RED BLOOD COUNT - [facility] 3.91(L) 4.36 - 5.78 10e3/ul 02/02/2020 7:40 EDT [facility] RED CELL DISTRI WIDTH - [facility] 14.6 <14.2 % 02/02/2020 7:40 [facility] WHITE BLOOD COUNT - [facility] 3.8(L) 4.0 - 10.4 10e3/ul 02/02/2020 7:40 EDT [facility] 02/02/2020 7:05 EDT 02/02/2020 7:05 EDT us Mohit Cornell MD MPH PACKAGES & DNA PROBE ALVARO SHAH Final Result [facility] [address] [place] [address] * HIV 1/2 AB, P24 AG - [facility] (02/02/2020 7:05 EDT) HIV 1/2 AB, P24 AG - [facility] Negative Negative 02/02/2020 8:13 EDT [facility] 02/02/2020 7:05 EDT 02/02/2020 7:05 EDT us Mohit Cornell MD MPH CHEMISTRY & BLOOD GAS ORD ERABLES Final Result Performing Organization Address City/[facility]/ZIP Co de Phone Number [facility] [address] [place] [address] * MAGNESIUM (02/02/2020 7:05 EDT) Pathologist [facility] Magnesium 1.80 1.7 - 2.8 mg/dL 02/02/2020 7:28 [facility] 02/02/2020 7:05 EDT 02/02/2020 7:05 EDT us Mohit Cornell MD MPH CHEMISTRY & BLOOD GAS ORD ERABLES Final Result Performing Organization Address [facility] Number [facility] [address] [place] [address] * (ABNORMAL) COMPREHENSIVE METABOLIC PANEL (CMP) (02/02/2020 7:05 EDT) Pathologist [facility] Albumin % 2.6(L) 3.4 - 4.9 g/dL 02/02/2020 7:28 [facility] ALKALINE PHOSPHATASE - [facility] 183(H) 38 - 126 U/L 02/02/2020 7:28 [facility] BILIRUBIN TOTAL 5.0(H) 0.2 - 1.3 mg/dL 02/02/2020 7:28 [facility] BUN - [facility] 9(L) 10 - 26 mg/dL 02/02/2020 7:28 [facility] CALCIUM - [facility] 8.3(L) 8.5 - 10.5 mg/dL 02/02/2020 7:28 [facility] Chloride 107 96 - 110 mmol/L 02/02/2020 7:28 [facility] CO2 Total 24 21 - 32 mEq/L 02/02/2020 7:28 [facility] CREATININE 0.67 0.66 - 1.25 mg/dL 02/02/2020 7:28 [facility] eGFR >60 02/02/2020 7:28 [facility] Comment: Chronic renal impairment is defined as GFR <60 Multiply result by 1.210 for patients. Anion Gap 5 0 - 18 02/02/2020 7:28 EDT [facility] GLUCOSE - [facility] 91 70 - 100 mg/dL 02/02/2020 7:28 [facility] Potassium 4.0 3.5 - 5.0 mEq/L 02/02/2020 7:28 [facility] Sodium 136 136 - 145 mEq/L 02/02/2020 7:28 [facility] TOTAL PROTEIN - [facility] 6.2 6.2 - 8.2 gm/dL 02/02/2020 7:28 [facility] SGOT/AST - [facility] 1,626(H) 17 - 59 U/L 02/02/2020 7:47 [facility] SGPT/ALT - [facility] 2,603(H) 0 - 50 U/L 0 7:50 [facility] 02/02/2020 7:05 EDT 02/02/2020 7:05 EDT us Mohit Cornell MD MPH CHEMISTRY & BLOOD GAS ORD ERABLES Final Result [facility] [address] [place] [address] * TROPONIN I (02/02/2020 2:35 EDT) Troponin I (ng/mL) <0.034 0.000 - 0.034 ng/mL 02/02/2020 3:06 EDT [facility] Comment: Interpretation comments: ??Cutoff for a positive troponin result is set at the 99th percentile of the upper reference limit. ??Elevated troponin must always be interpreted in the context of the clinical presentation. ?Serial troponin testing 3-6 hr from baseline is favored over relying on a single troponin level. ?? The results of this assay can be falsely lowered due to the consumption of Biotin. 02/02/2020 2:35 EDT 02/02/2020 2:35 EDT Narrative [facility] - 02/02/2020 3:06 EDT AOT: 02/02/20 0242: TROP,PT SAMPLES SHORT AND HEMOLYZED REQUESTED REDRAW Derrick Bill MD CHEMISTRY & BLOOD GAS ORDER MENDEZ Final Result Performing Organization Address [facility] de Phone Number [facility] [address] [place] [address] * (ABNORMAL) PROTIME (02/02/2020 2:35 EDT) [facility] PROTHROMBIN TIME [place] 15.4(H) 10.3 - 13.4 SECONDS 02/02/2020 2:43 EDT [facility] 02/02/2020 2:35 EDT 02/02/2020 2:35 EDT Derrick Bill MD HEMATOLOGY & PF4 ORDERABLES Final Result Performing Organization Address [facility] Phone Number [facility] [address] [place] [address] * (ABNORMAL) INR - [facility] (02/02/2020 2:35 EDT) [facility] INR [place] 1.4(H) 0.9 - 1.1 02/02/2020 2:43 EDT [facility] Comment: Moderate Intensity Coumadin INR = 2.0-3.0 Adjustments in anticoagulant therapy dose should be based upon the INR and NOT the Protime. 02/02/2020 2:35 EDT 02/02/2020 2:35 EDT Derrick Bill MD HEMATOLOGY & PF4 ORDERABLES Final Result Performing Organization Address [facility] Co de Phone Number [facility] [address] [place] [address] * (ABNORMAL) DRUGS OF ABUSE SCREEN, URINE - [facility] (02/02/2020 0:52 EDT) [facility] AMPHETAMINES NEG NEG 02/02/2020 1:29 EDT [facility] BARBITURATES,UR - [facility] NEG NEG 02/02/2020 1:29 [facility] BENZODIAZEPINES NEG NEG 0 1:29 [facility] COCAINE,URINE - [facility] POS(A) NEG 02/02/2020 1:29 [facility] MAMP (METHAMPHETAMINES - [facility] NEG NEG 02/02/2020 1:29 [facility] MARIJUANA,URINE - [facility] POS(A) NEG 02/02/2020 1:29 [facility] MTD (METHADONE) - [facility] NEG NEG 02/02/2020 1:29 [facility] OPIATES,URINE - [facility] POS(A) NEG 02/02/2020 1:29 [facility] OXY (OXYCODONE) - [facility] NEG NEG 02/02/2020 1:29 [facility] PCP (PHENCYCLIDINE) - [facility] NEG NEG 02/02/2020 1:29 [facility] PROPOXYPHENE (PPX) - [facility] NEG NEG 02/02/2020 1:29 [facility] TRICYCLIC ANTIDEPRESSANTS - [facility] NEG NEG 02/02/2020 1:29 [facility] Comment: Drug Class ?Cutoff Concentration Amphetamines (AMP) ?500 ng/ml Barbiturates (BAR) ?200 ng/ml Benzodiazepines (BZO) ? 150 ng/ml Cocaine (NELL) ? 150 ng/ml Methamphetamine (mAMP) ?500 ng/ml Methadone (MTD) ? 200 ng/ml Opiates (OPI) ? 100 ng/ml Oxycodone (OXY) ? 100 ng/ml Phencyclidine (PCP) ?25 ng/ml Tetrahydrocannabinol (THC) ? 50 ng/ml Propoxyphene (PPX) ?300 ng/ml Tricyclic antidepressants (TCA) ? 300 ng/ml This is a screening assay only, intended for use in clinical monitoring or management of patients. False positive or false negative results can occur. If confirmation testing is needed, please call the lab. Specimens are retained in the laboratory for 7 days. 02/02/2020 0:52 EDT 02/02/2020 0:52 EDT us Derrick Bill MD URINALYSIS ORDERABLES Final Result [facility] [address] [place] [address] * URINALYSIS - [facility] (02/02/2020 0:52 EDT) URINE APPEARANCE - [facility] Clear CLEAR 02/02/2020 1:03 EDT [facility] URINE BILIRUBIN - DIPSTICK - [facility] 2+ NEGATIVE 02/02/2020 1:[facility] Comment: Unable to confirm positive urine bilirubin. If clinical correlation is inconsistent, consider serum bilirubin. URINE BLOOD - [facility] Negative NEG 02/02/2020 1:03 EDT [facility] URINE COLOR - [facility] Yellow YELLOW 02/02/2020 1:03 EDT [facility] URINE GLUCOSE - DIPSTICK - [facility] Negative NEGATIVE 02/02/2020 1:03 EDT [facility] URINE KETONE - [facility] Negative NEGATIVE 02/02/2020 1:03 EDT [facility] URINE LEUK ESTERASE - [facility] Negative NEG 02/02/2020 1:03 EDT [facility] URINE NITRITE - DIPST[place] - [facility] Negative NEG 02/02/2020 1:03 EDT [facility] URINE PH - [facility] 7.0 4.0 - 8.0 0 1:03 EDT [facility] URINE PROTEIN - DIPST[place] - [facility] Negative NEG 02/02/2020 1:03 EDT [facility] URINE SPECIFIC GRAVITY - [facility] <=1.005 1.001 - 1.035 02/02/2020 1:03 EDT [facility] URINE UROBILINOGEN - [place] - [facility] 0.2 0.2 - 1.0 02/02/2020 1:03 EDT [facility] 02/02/2020 0:52 EDT 02/02/2020 0:52 EDT us Derrick Bill MD CHEMISTRY & BLOOD GAS ORDER MENDEZ Final Result Performing Organization Address City/[facility]/ZIP Co de Phone Number [facility] [address] [place] [phone] * BLOOD CULTURE - [facility] (02/02/2020 0:20 EDT) BLOOD CULTURE - [facility] 02/07/2020 7:23 EDT [facility] BLOOD CULTURE - [facility] NO GROWTH AT 5 DAYS 02/07/2020 7:23 EDT [facility] Blood specimen (specimen) 02/02/2020 0:20 EDT 02/02/2020 0:52 EDT Comment:PERIP us Derrick Bill MD CHEMISTRY & BLOOD GAS ORDER MENDEZ Edited Result - Final Performing Organization Address City/[facility]/ZIP Co de Phone Number [facility] [address] [place] [phone] documented in this encounter Visit Diagnoses Not on filedocumented in this encounter Care Teams Vapor Coater Relationship Specialty Start Date End Date None, Provider PCP - General 02/20/14 02/04/20 documented as of this encounter
--- OUTSIDE RECORDS SUMMARY | 2024-07-02 14:34 | XMS_ITS | Encounter Summary ---
Author Organization [facility] Address [address] [place] [address] Care Team Providers Care Conservation Assistant Name Role Phone None, Provider Primary Care Provider Unavailabl e Encounter Details Date Type Department Care Team (Late st Contact Info) Description 12/24/2019 Results Only [facility]- [facility] [phone] Ramiro Child MD [address] [place] [phone] Social History Tobacco Use Types Packs/Day [...] Procedure Name Priority Date/Time Associated Diagnosis Comments DRUGS OF ABUSE SCREEN, URINE - [facility] Routine 12/24/2019 14:20 EDT SPEC W/O ORDERS - [facility] Routine 0 13:20 EDT COMPLETE BLOOD COUNT WITH DIFFERENTIAL (AUTO) Routine 12/24/2019 13:20 EDT TROPONIN I Routine 12/24/2019 13:20 EDT D-DIMER Routine 12/24/2019 13:20 EDT C REACTIVE PROTEIN Routine 12/24/2019 13 :20 EDT MAGNESIUM Routine 12/24/2019 13:20 EDT CK Routine 12/24/2019 13:20 EDT COMPREHENSIVE METABOLIC PANEL (CMP) Routine 12/24/2019 13:20 EDT documented in this encounter Results * (ABNORMAL) DRUGS OF ABUSE SCREEN, URINE - [facility] (12/24/2019 14:20 EDT) AMPHETAMINES POS(A) NEG 12/24/2019 14:[address] [facility] BARBITURATES,UR - [facility] NEG NEG 12/24/2019 14:40 [facility] BENZODIAZEPINES POS(A) NEG 0 14:40 [facility] COCAINE,URINE - [facility] POS(A) NEG 12/24/2019 14:[address] [facility] MAMP (METHAMPHETAMINES - [facility] POS(A) NEG 12/24/2019 14:40 [facility] MARIJUANA,URINE - [facility] POS(A) NEG 12/24/2019 14:40 [facility] MTD (METHADONE) - [facility] NEG NEG 12/24/2019 14:40 [facility] OPIATES,URINE - [facility] POS(A) NEG 12/24/2019 14:40 [facility] OXY (OXYCODONE) - [facility] NEG NEG 12/24/2019 14:40 [facility] PCP (PHENCYCLIDINE) - [facility] NEG NEG 12/24/2019 14:40 [facility] PROPOXYPHENE (PPX) - [facility] NEG NEG 12/24/2019 14:40 [facility] TRICYCLIC ANTIDEPRESSANTS - [facility] NEG NEG 12/24/2019 14:40 [facility] Comment: Drug Class ?Cutoff Concentration [...] retained in the laboratory for 7 days. 12/24/2019 14:2 0 EDT 12/24/2019 14:22 EDT us Ramiro Child MD URINALYSIS ORDERABLES Fin al Result [facility] * TROPONIN I (12/24/2019 13:20 EDT) Troponin I (ng/mL) <0.034 0.000 - 0.034 ng/mL 12/24/2019 14:[address] [facility] Comment: Interpretation comments: ??Cutoff for a [...] lowered due to the consumption of Biotin. 12/24/2019 13:2 0 EDT 12/24/2019 13:49 EDT Ramiro Child MD CHEMISTRY & BLOOD GAS ORD ERABLES Final Result Performing Organization Address [facility] de Phone Number [facility] * (ABNORMAL) D-DIMER (12/24/2019 13:20 EDT) Pathologist [facility] D-Dimer 311(HH) <230 ng/mLDDU 12/24/2019 14:[address] [facility] Comment: CUTOFF VALUE FOR THE EXCLUSION OF DVT and PE: 230 ng/mL D-dimer units. Any use of the age-adjusted cutoff value is a post-analytic modification of this FDA-approved test and is considered off-label use of the test result. [facility] Laboratory does not have literature to support the validity of an age-adjusted cutoff for our specific assay. 12/24/2019 13:2 0 EDT 12/24/2019 14:[address] [facility] - 12/24/2019 14:30 EDT AOT: 12/24/19 1412: DIMER us Ramiro Child MD HEMATOLOGY & PF4 ORDERABL ES Final Result Performing Organization Address [facility] Co de Phone Number [facility] * MAGNESIUM (12/24/2019 13:20 EDT) Magnesium 1.90 1.7 - 2.8 mg/dL 12/24/2019 14:[address] [facility] 12/24/2019 13:2 0 EDT 12/24/2019 13:49 EDT us Ramiro Child MD CHEMISTRY & BLOOD GAS ORD ERABLES Final Result [facility] * (ABNORMAL) C REACTIVE PROTEIN (12/24/2019 13:20 EDT) C-Reactive Protein 11.9(H) <10.0 mg/L 12/24/2019 14:[address] [facility] 12/24/2019 13:2 0 EDT 12/24/2019 13:49 EDT us Ramiro Child MD CHEMISTRY & BLOOD GAS ORD ERABLES Final Result Performing Organization Address [facility]/ZIP Co de Phone Number [facility] * (ABNORMAL) CK (12/24/2019 13:20 EDT) CPK - [facility] 611(H) 55 - 170 U/L 12/24/2019 14:[address] [facility] 12/24/2019 13:2 0 EDT 12/24/2019 13:49 EDT Ramiro Child MD CHEMISTRY & BLOOD GAS ORD ERABLES Final Result [facility] * (ABNORMAL) COMPREHENSIVE METABOLIC PANEL (CMP) (12/24/2019 13:20 EDT) Albumin % 3.7 3.4 - 4.9 g/dL 12/24/2019 14:[address] [facility] ALKALINE PHOSPHATASE - [facility] 62 38 - 126 U/L 12/24/2019 14:[address] [facility] BILIRUBIN TOTAL 0.3 0.2 - 1.3 mg/dL 12/24/2019 14:[address] [facility] BUN - [facility] 16 10 - 26 mg/dL 12/24/2019 14:[address] [facility] CALCIUM - [facility] 9.1 8.5 - 10.5 mg/dL 12/24/2019 14:23 [facility] Chloride 101 96 - 110 mmol/L 12/24/2019 14:23 [facility] CO2 Total 26 21 - 32 mEq/L 12/24/2019 14:23 [facility] CREATININE 1.00 0.66 - 1.25 mg/dL 12/24/2019 14:23 [facility] eGFR >60 12/24/2019 14:23 [facility] Comment: Chronic renal impairment is defined as GFR <60 Multiply result by 1.210 for patients. Anion Gap 10 0 - 18 12/24/2019 14:23 [facility] GLUCOSE - [facility] 86 70 - 100 mg/dL 12/24/2019 14:23 [facility] Potassium 4.5 3.5 - 5.0 mEq/L 12/24/2019 14:23 [facility] Sodium 137 136 - 145 mEq/L 12/24/2019 14:23 [facility] TOTAL PROTEIN - [facility] 7.0 6.2 - 8.2 gm/dL 12/24/2019 14:23 [facility] SGOT/AST - [facility] 70(H) 17 - 59 U/L 12/24/2019 14:23 [facility] SGPT/ALT - [facility] 90(H) 0 - 50 U/L 0 14:23 [facility] 12/24/2019 13:2 0 EDT 12/24/2019 13:49 EDT us Ramiro Child MD CHEMISTRY & BLOOD GAS ORD ERABLES Final Result [facility] * (ABNORMAL) COMPLETE BLOOD COUNT WITH DIFFERENTIAL (AUTO) (12/24/2019 13:20 EDT) Gran # 3.7 2.2 - 8.85 10e3/uL 12/24/2019 13:55 [facility] BASO # - [facility] 0.04 0.01 - 0.11 10e/uL 12/24/2019 13:55 [facility] BASO % - [facility] 1 0 - 2 % 12/24/2019 13:55 [facility] EOS # - [facility] 0.32 0.03 - 0.61 10e3/ul 12/24/2019 13:55 [facility] EOS % - [facility] 5 0 - 5 % 12/24/2019 13:55 [facility] GRAN % - [facility] 57.7 40 - 80 % 12/24/2019 13:55 [facility] HEMATOCRIT - [facility] 32.6(L) 39.5 - 50.2 % 12/24/2019 13:55 [facility] HEMOGLOBIN - [facility] 10.6(L) 13.8 - 17.3 g/dl 12/24/2019 13:55 [facility] IG# - [facility] 0.05 0 - 0.7 10e3/uL 12/24/2019 13:55 [facility] IG% - [facility] 0.8 0 - 0.9 % 12/24/2019 13:55 [facility] LYMPH # - [facility] 1.4 1.09 - 3.3 10e3/ul 12/24/2019 13:55 [facility] LYMPH% - [facility] 22.1 20 - 40 % 12/24/2019 13:55 [facility] MEAN CORPUSCULAR HGB - [facility] 30.5 27.6 - 33.0 pg 12/24/2019 13:55 [facility] MEAN CORPUSCULAR HGB CONC - [facility] 32.5(L) 32.8 - 36.4 g/dL 12/24/2019 13:55 [facility] MEAN CELL VOLUME - [facility] 93.9 81 - 95 fl 12/24/2019 13:55 [facility] MONO # - [facility] 0.9(H) 0.1 - 0.8 10e3/uL 12/24/2019 13:55 [facility] MONO% - [facility] 13.8(H) 0 - 12 % 12/24/2019 13:[address] [facility] PLATELET COUNT 333 141 - 377 10e3/ul 12/24/2019 13:[address] [facility] RED BLOOD COUNT - [facility] 3.47(L) 4.36 - 5.78 10e3/ul 12/24/2019 13:[address] [facility] RED CELL DISTRI WIDTH - [facility] 13.1 <14.2 % 12/24/2019 13:[address] [facility] WHITE BLOOD COUNT - [facility] 6.4 4.0 - 10.4 10e3/ul 12/24/2019 13:[address] [facility] 12/24/2019 13:2 0 EDT 12/24/2019 13:49 EDT us Ramiro Child MD HEMATOLOGY & PF4 ORDERABL ES Final Result [facility] * SPEC W/O ORDERS - [facility] (12/24/2019 13:20 EDT) SPEC W/O ORDERS - [facility] SEE NOTE 12/24/2019 13:[address] [facility] Comment: ?Emergency Room Specimen(s) without Orders These specimens will be discarded in 4 hours: GREEN,GOLD,PURPLE,BLUE 12/24/2019 13:2 0 EDT 12/24/2019 13:41 EDT us Ramiro Child MD CHEMISTRY & BLOOD GAS ORD ERABLES Final Result [facility] documented in this encounter Visit Diagnoses Not on filedocumented in this encounter Care Teams Conservation Assistant Relationship Specialty Start Date End Date None, Provider PCP - General 02/20/14 02/04/20 documented as of this encounter
--- OUTSIDE RECORDS SUMMARY | 2024-07-02 14:34 | XMS_ITS | Encounter Summary ---
Author Organization [facility] Address [address] [place] [address] Care Team Providers Care Credit Review Officer Name Role Phone Kwadwo Mitchell MD Primary Care Provider [phone] Encounter Details Date Type Department Care Team (Late st Contact Info) Description 03/01/2009 Orders Only [facility] Neurosurgery [facility] [address], [place] [address] Bravo Contreras MD [address] [facility], [address] [place] [phone] Social History Tobacco Use Types Packs/Day Years [...] Procedure Name Priority Date/Time Associated Diagnosis Comments OUTSIDE CD - MRI NEURO 03/01/2009 9:51 EDT documented in this encounter Results * OUTSIDE CD - MRI NEURO (03/01/2009 9:51 EDT) Anatomical Region Laterality Modality Other 03/01/2009 9:51 EDT Narrative 03/01/2009 9:51 EDT Non Reportable Exam Procedure Note 03/01/2009 Non Reportable Exam us Bravo Contreras MD IMG OTHER IMAGING ORDERABLES Fin al Result documented in this encounter Visit Diagnoses Not on filedocumented in this encounter Care Teams Credit Review Officer Relationship Specialty Start Date End Date Kwadwo Mitchell MD [address] [place] [phone] PCP - General 01/30/09 02/19/14 documented as of this encounter
--- OUTSIDE RECORDS SUMMARY | 2024-07-02 14:34 | XMS_ITS | Encounter Summary ---
Author Organization [facility] Address [address] [place] [address] Care Team Providers Care Clergy Member Name Role Phone Kwadwo Mitchell MD Primary Care Provider [phone] Encounter Details Date Type Department Care Team (Late st Contact Info) Description 03/01/2009 Orders Only [facility] Neurosurgery [facility] [address] [place], [place] [address] Bravo Contreras MD [address] [facility], [address] [place] [phone] Social History Tobacco Use Types Packs/Day Years [...] on filedocumented in this encounter Care Teams Clergy Member Relationship Specialty Start Date End Date Kwadwo Mitchell MD [address] [place] [phone] PCP - General 01/30/09 02/19/14 documented as of this encounter
--- OUTSIDE RECORDS SUMMARY | 2024-07-02 14:34 | XMS_ITS | Encounter Summary ---
Author Organization [facility] Address [address] [place] [address] Care Team Providers Care Pill Machine Operator Name Role Phone None, Provider Primary Care Provider Unavailabl e None, Provider Primary Care Provider Unavailabl e None, Provider Unavailable Unavailable Milo Baer MD Primary Care Provider [phone] Raffi Merida DO Primary Care Provider [phone] Encounter Details Date Type Department Care Team (Late st Contact Info) Description 12/24/2019 Results Only Imaging [facility] [address] [phone] Ramiro Child MD [address] [place] [address] Social History Tobacco Use Types [...] Associated Diagnosis Comments CT SINUSES WO CONTRAST 12/24/2019 16:[address] ANGIO CHEST PE PROTOCOL 12/24/2019 16:40 EDT XR CHEST 2 VIEWS 12/24/2019 14:3 7 EDT EKG 12-LEAD 12/24/2019 13:43 EDT documented in this encounter Results * CT SINUSES WO CONTRAST (12/24/2019 16:46 EDT) Anatomical Region Laterality Modality Head Computed Tomogra phy 12/24/2019 16:4 6 EDT Narrative 12/24/2019 16:46 EDT ? EXAM: CAT SCAN/SINUSES WITHOUT CONTRAST ?? EX. D/ (1614) ? CLINICAL INFORMATION: ? recent facial trauma ? PROCEDURE INFORMATION: ? Exam: CT Maxillofacial Without Contrast, Sinus ? Exam date and time: 12/24/2019 3:54 PM ? Age: 39 years old ? Clinical indication: Injury or trauma; Initial encounter; Blunt ? trauma (contusions or hematomas); Nose; Additional info: Recent ? facial trauma ? TECHNIQUE: ? Imaging protocol: CT Maxillofacial without contrast. Focus on ? the sinuses. ? Radiation optimization: All CT scans at this facility use at ? least one of these dose optimization techniques: automated ? exposure control; mA and/or kV adjustment per patient size ? (includes targeted exams where dose is matched to clinical ? indication); or iterative reconstruction. ? COMPARISON: ? No relevant prior studies available. ? FINDINGS: ? Frontal sinuses: Normal. No air-fluid levels. ? Ethmoid air cells: Normal. No air-fluid levels. ? Sphenoid sinuses: Normal. No air-fluid levels. ? Maxillary sinuses: Normal. No air-fluid levels. Ostiomeatal ? units are patent. ? Orbits: Orbits are normal. Globes are unremarkable. ? Nasal cavity/Septum: Unremarkable. ? Soft tissues: Unremarkable. ? Bones/joints: Fibrous dysplasia left zygomatic bone. No acute ? fracture. No acute malalignment. ? IMPRESSION: ? No acute bony abnormality. ? REPORT SIGNED IN OTHER VENDOR SYSTEM 12/24/2019 ?Reported By: Augustus Dominique MD ? CC: ? Transcribed Date/Time: 12/24/2019 (1645) ? Machine Shop Repair Technician: ? Printed Date/Time: 12/24/2019 (1645) ? PAGE 1 ? Signed Report ? Procedure Note Augustus Dominique MD - 12/24/2019 EXAM: CAT SCAN/SINUSES WITHOUT CONTRAST EX. D/ (1614) CLINICAL INFORMATION: recent facial trauma PROCEDURE INFORMATION: Exam: CT Maxillofacial Without Contrast, Sinus Exam date and time: 12/24/2019 3:54 PM Age: 39 years old Clinical indication: Injury or trauma; Initial encounter; Blunt trauma (contusions or hematomas); Nose; Additional info: Recent facial trauma TECHNIQUE: Imaging protocol: CT Maxillofacial without contrast. Focus on the sinuses. Radiation optimization: All CT scans at this facility use at least one of these dose optimization techniques: automated exposure control; mA and/or kV adjustment per patient size (includes targeted exams where dose is matched to clinical indication); or iterative reconstruction. COMPARISON: No relevant prior studies available. FINDINGS: Frontal sinuses: Normal. No air-fluid levels. Ethmoid air cells: Normal. No air-fluid levels. Sphenoid sinuses: Normal. No air-fluid levels. Maxillary sinuses: Normal. No air-fluid levels. Ostiomeatal units are patent. Orbits: Orbits are normal. Globes are unremarkable. Nasal cavity/Septum: Unremarkable. Soft tissues: Unremarkable. Bones/joints: Fibrous dysplasia left zygomatic bone. No acute fracture. No acute malalignment. IMPRESSION: No acute bony abnormality. REPORT SIGNED IN OTHER VENDOR SYSTEM 12/24/2019 Reported By: Augustus Dominique MD CC: Transcribed Date/Time: 12/24/2019 (200) Machine Shop Repair Technician: Printed Date/Time: 12/24/2019 (033) PAGE 1 Signed Report us Ramiro Child MD IMG CT ORDERABLES Final R esult * CT ANGIO CHEST PE PROTOCOL (12/24/2019 16:40 EDT) Anatomical Region Laterality Modality Chest Computed Tomogra phy 12/24/2019 16:4 0 EDT Narrative 12/24/2019 16:40 EDT ? EXAM: CAT SCAN/CTA CHEST PE PROTOCOL ?EX. D/ (2391) ? CLINICAL INFORMATION: ? CP, SOB, recent hospitalization in [place] ? PROCEDURE INFORMATION: ? Exam: CT Angiography Chest With Contrast ? Exam date and time: 12/24/2019 2:45 PM ? Age: 39 years old ? Clinical indication: Shortness of breath; Additional info: Cp, ? SOB, recent hospitalization in [place] ? TECHNIQUE: ? Imaging protocol: Computed tomographic angiography of the chest ? with intravenous contrast. ? 3D rendering: MIP and/or 3D reconstructed images were created by ? the technologist. ? Radiation optimization: All CT scans at this facility use at ? least one of these dose optimization techniques: automated ? exposure control; mA and/or kV adjustment per patient size ? (includes targeted exams where dose is matched to clinical ? indication); or iterative reconstruction. ? Contrast material: [id number]; Contrast volume: 100 ml; Contrast ? route: IV; ? COMPARISON: ? CR CHEST (PA ?? LAT) 12/24/2019 1:57 PM ? FINDINGS: ? Pulmonary arteries: No pulmonary embolism identified. ? Aorta: Unremarkable. No aortic aneurysm. No aortic dissection. ? Lungs: Unremarkable. No consolidation. No masses. ? Pleural space: Unremarkable. No pneumothorax. No pleural ? effusion. ? Heart: Unremarkable. No cardiomegaly. No pericardial effusion. ? Lymph nodes: Calcified mediastinal nodes and several calcified ? lung granuloma consistent with previous granulomatous disease. ? Mild left axillary adenopathy. ? Bones/joints: Unremarkable. No acute fracture. ? Soft tissues: Unremarkable. ? IMPRESSION: ? No pulmonary embolism identified. ? REPORT SIGNED IN OTHER VENDOR SYSTEM 12/24/2019 ?Reported By: Augustus Dominique MD ? CC: ? Transcribed Date/Time: 12/24/2019 (1640) ? Machine Shop Repair Technician: ? Printed Date/Time: 12/24/2019 (1640) ? PAGE 1 ? Signed Report ? Procedure Note Augustus Dominique MD - 12/24/2019 EXAM: CAT SCAN/CTA CHEST PE PROTOCOL EX. D/ (1614) CLINICAL INFORMATION: CP, SOB, recent hospitalization in [place] PROCEDURE INFORMATION: Exam: CT Angiography Chest With Contrast Exam date and time: 12/24/2019 2:45 PM Age: 39 years old Clinical indication: Shortness of breath; Additional info: Cp, SOB, recent hospitalization in [place] TECHNIQUE: Imaging protocol: Computed tomographic angiography of the chest with intravenous contrast. 3D rendering: MIP and/or 3D reconstructed images were created by the technologist. Radiation optimization: All CT scans at this facility use at least one of these dose optimization techniques: automated exposure control; mA and/or kV adjustment per patient size (includes targeted exams where dose is matched to clinical indication); or iterative reconstruction. Contrast material: [id number]; Contrast volume: 100 ml; Contrast route: IV; COMPARISON: CR CHEST (PA LAT) 12/24/2019 1:57 PM FINDINGS: Pulmonary arteries: No pulmonary embolism identified. Aorta: Unremarkable. No aortic aneurysm. No aortic dissection. Lungs: Unremarkable. No consolidation. No masses. Pleural space: Unremarkable. No pneumothorax. No pleural effusion. Heart: Unremarkable. No cardiomegaly. No pericardial effusion. Lymph nodes: Calcified mediastinal nodes and several calcified lung granuloma consistent with previous granulomatous disease. Mild left axillary adenopathy. Bones/joints: Unremarkable. No acute fracture. Soft tissues: Unremarkable. IMPRESSION: No pulmonary embolism identified. REPORT SIGNED IN OTHER VENDOR SYSTEM 12/24/2019 Reported By: Augustus Dominique MD CC: Transcribed Date/Time: 12/24/2019 (1639) Machine Shop Repair Technician: Printed Date/Time: 12/24/2019 (8585) PAGE 1 Signed Report us Ramiro Child MD IMG CT ORDERABLES Final R esult * XR CHEST 2 VIEWS (12/24/2019 14:37 EDT) Anatomical Region Laterality Modality Computed Radiogr aphy 12/24/2019 14:3 7 EDT Narrative 12/24/2019 14:37 EDT ? EXAM: RADIOLOGY/CHEST PA ?? LAT ?EX. D/ (1407) ? CLINICAL INFORMATION: ? CP ? PROCEDURE INFORMATION: ? Exam: XR Chest, 2 Views ? Exam date and time: 12/24/2019 1:44 PM ? Age: 39 years old ? Clinical indication: Chest pain; Additional info: Cp ? TECHNIQUE: ? Imaging protocol: XR of the chest ? Views: 2 views. ? COMPARISON: ? No relevant prior studies available. ? FINDINGS: ? Lungs: Unremarkable. No consolidation. ? Pleural space: Unremarkable. No pleural effusion. No ? pneumothorax. ? Heart/Mediastinum: Unremarkable. No cardiomegaly. ? Bones/joints: Unremarkable. ? IMPRESSION: ? No acute findings. ? REPORT SIGNED IN OTHER VENDOR SYSTEM 12/24/2019 ?Reported By: Augustus Dominique MD ? CC: ? Transcribed Date/Time: 12/24/2019 (9567) ? Machine Shop Repair Technician: ? Printed Date/Time: 12/24/2019 (6157) ? PAGE 1 ? Signed Report ? Procedure Note Augustus Dominique MD - 12/24/2019 EXAM: RADIOLOGY/CHEST PA LAT EX. D/ (1407) CLINICAL INFORMATION: CP PROCEDURE INFORMATION: Exam: XR Chest, 2 Views Exam date and time: 12/24/2019 1:44 PM Age: 39 years old Clinical indication: Chest pain; Additional info: Cp TECHNIQUE: Imaging protocol: XR of the chest Views: 2 views. COMPARISON: No relevant prior studies available. FINDINGS: Lungs: Unremarkable. No consolidation. Pleural space: Unremarkable. No pleural effusion. No pneumothorax. Heart/Mediastinum: Unremarkable. No cardiomegaly. Bones/joints: Unremarkable. IMPRESSION: No acute findings. REPORT SIGNED IN OTHER VENDOR SYSTEM 12/24/2019 Reported By: Augustus Dominique MD CC: Transcribed Date/Time: 12/24/2019 (2878) Machine Shop Repair Technician: Printed Date/Time: 12/24/2019 (0835) PAGE 1 Signed Report us Ramiro Child MD IMG DIAGNOSTIC IMAGING OR DERABLES Final Result * EKG 12-LEAD (12/24/2019 13:43 EDT) 12/24/2019 13:4 3 EDT [facility] - 12/24/2019 13:43 EDT ? [facility] ? Test Date: ?2019-12-24 13:43:40 Pat Name: ? MARCOS CAMEJO ?Department: ?Room: ? Gender: ? M ?Painter And Decorator Apprentice: ?? MLB : ?1980 ? Requested By: Order Number: ?Dinorah PEREZ: ?? Rosalva Magaña MD ? Measurements Intervals ?Lyons ? Rate: ? 98 ? P: ?55 ME: ? 124 ?QRS: ?74 QRSD: ? 92 ? T: ?48 QT: ? 326 ? QTc: ?416 ? 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 And Decorator Apprentice: CESARIO : 1980 Requested By: Order Number: Reading MD: Rosalva Magaña MD Measurements Intervals Lyons Rate: 98 P: 55 ME: 124 QRS: 74 QRSD: 92 T: 48 QT: 326 QTc: 416 Interpretive Statements Normal sinus rhythm Normal ECG Compared to ECG 09/04/2015 13:37:58 Sinus tachycardia no longer present Electronically Signed On 12-25-2019 8:40:54 EDT by Rosalva Magaña MD [email or web address] us Ramiro Child MD CARDIAC ECG ORDERABLES Fi nal Result [facility] documented in this encounter Visit Diagnoses Not on filedocumented in this encounter Additional Health Concerns Infection Onset Date Last Indicated Resolved Time MRSA Comment:05/24/2024 +MRSA blood cultures [facility] Pos blood 05/26/24, 05/27/24, 05/29/24, 05/30/24, 06/01/24, 06/03/24, 06/04/24, 06/05/24 - Radha DiMasi 06/08/2024 2024 06/05/2024 documented as of this encounter Care Teams Pill Machine Operator Relationship Specialty Start Date End Date None, Provider PCP - General 02/20/14 02/04/20 None, Provider PCP - General 02/05/20 02/16/23 Milo Baer MD [address] [place] [phone] PCP - General Family Medicine - Primary Care 02/17/23 05/25/24 Raffi Merida DO [address] [place] [phone] PCP - General Family Medicine - Primary Care 05/26/24 None, Provider 02/05/20 05/25/24 documented as of this encounter
--- OUTSIDE RECORDS SUMMARY | 2024-07-02 14:34 | XMS_ITS | Encounter Summary ---
Author Organization [facility] Address [address] [place] [address] Care Team Providers Care Manager Mobile Name Role Phone None, Provider Primary Care Provider Unavailabl e None, Provider Primary Care Provider Unavailabl e None, Provider Unavailable Unavailable Milo Baer MD Primary Care Provider [phone] Raffi Merida DO Primary Care Provider [phone] Encounter Details Date Type Department Care Team (Late st Contact Info) Description 02/02/2020 [facility] - [facility] [address], [place] [address] Outr Resulting Lab, Provider Social History Tobacco [...] Name Priority Date/Time Associated Diagnosis Comments HEPATITIS B CORE ANTIBODY (TOTAL) Routine 02/01/2020 23:37 EDT documented in this encounter Results * HEPATITIS B CORE ANTIBODY (TOTAL) (02/01/2020 23:37 EDT) Hepatitis B Core Ab, Total Negative Negative 02/02/2020 14:40 EDT [facility] Blood VENOUS BLOOD / Unknown 02/01/2020 23:37 EDT 02/02/2020 12:02 EDT us Provider Outr Resulting Lab CHEMISTRY & BLOOD GA S ORDERABLES Final Result [facility] [address] [place] [address] documented in this encounter Visit Diagnoses Not on filedocumented in this encounter Additional Health Concerns Infection Onset Date Last Indicated Resolved Time MRSA Comment:05/24/2024 +MRSA blood cultures [facility] Pos blood 05/26/24, 05/27/24, 05/29/24, 05/30/24, 06/01/24, 06/03/24, 06/04/24, 06/05/24 - Radha Greenberg 06/08/2024 2024 06/05/2024 documented as of this encounter Care Teams Manager Mobile Relationship Specialty Start Date End Date None, Provider PCP - General 02/20/14 02/04/20 None, Provider PCP - General 02/05/20 02/16/23 Milo Baer MD [address] [place] [phone] PCP - General Family Medicine - Primary Care 02/17/23 05/25/24 Raffi Merida DO [address] [place] [phone] PCP - General Family Medicine - Primary Care 05/26/24 None, Provider 02/05/20 05/25/24 documented as of this encounter
--- NOTE | 2024-07-02 15:13 | NUR.NOTE ---
Nursing Note: Patient arrived to unit at 14:21. Patient was brought into room, and nursing hot dip tinning supervisor Rochelle discussed admission to the hospital with the patient. Limited privileges to leave the unit were discussed with the patient, as per the care plan and care plan relayed to this facility by REYNOLD, by Rochelle, and patient appeared irritable, stating I don't know what you're talking about, care plan. On orienting the patient to the room, Rochelle asked the patient about the patient's belongings and what he had with him. Patient stated at this time that he did not agree to transfer to this facility; Rochelle noted patient signed papers stating that he did agree to the transfer. Patient acknowledged signing this document, but insisted he does not want to be here, does not want treatment, and does not want to be seen by the provider. Rochelle informed patient that the provider must at least speak with him. Patient was seen by Dr. Gomez. Lourdes RN and Veronica RN removed the PICC line as requested and order by Dr. Gomez. Patient signed AMA paperwork and left the facility, stating someone was picking him up.
--- NOTE | 2024-07-02 15:59 | DSE_ITS ---
Date of service: 07/02/24 Time of Service: 15:59 Discharge Plan Disposition Patient Disposition: Against Medical Advice Condition: Stable Discharge Details Reason For Visit: Spinal osteomyletitis Admit Date/Time: 07/02/24 11:45 Admit Provider: Maikel Daley Attending Provider: Maikel Daley [facility] Course: Mr. Camejo was a transferred from an outlying facility to complete a course of IV antibiotics for a I believe the T10 osteomyelitis. Once he arrived on the floor he wanted to be discharged home. Per my discussion with the patient he stated he was willing to leave AGAINST MEDICAL ADVICE. I did discuss with the patient that leaving AGAINST MEDICAL ADVICE could lead and permanent disability or but he was not deterred from leaving. I did send prescriptions over to his pharmacy and this should not be viewed as tested approval for his leaving AMA but rather the best course of action in a difficult situation and that he needs continued antibiotics for his discitis and needs better sugar control to improve his chances of healing. I made very clear to the patient that he was not safe to leave. Home Meds and New Rx's Prescriptions: New linezolid 600 mg tablet 600 mg PO BID 19 Days Qty: 38 0RF metformin 500 mg tablet,ER carlito.retention 24 hr 500 mg PO DAILY Qty: 30 0RF Continued gabapentin 300 mg capsule 300 mg PO TID Qty: 270 3RF buprenorphine-naloxone [Suboxone] 12-3 mg film 2 film buccal Q24H Rx Instructions: place 1 strip/tab under (each) side of tongue quetiapine [Seroquel] 100 mg tablet 100 mg PO DAILY Qty: 30 0RF naloxone [Narcan] 4 mg/actuation spray,non-aerosol 4 mg intranasal Q2M PRNQty: 2 5RF Rx Instructions: spray 1 dose into ONE nostril; alternate nostrils w each dose until help arrives Discharge Data Discharge Date/Time-TO BE ENTERED AT DEPARTURE: 07/02/24 14:47 DS: Summary Time Spent with Patient providing and/or coordinating discharge services: Less than 30 minutes Status at Discharge Functional status at discharge: independent ambulation Overall status at discharge: patient is not back to baseline Mental Status: mental status grossly normal Speech and Movement: speech and movement normal Mood: irritable mood Affect: normal affect Quality:SDOH Health Related Social Needs: Health related social needs problem related to primary support group(Z63.9) Health related social needs [facility] Ex[facility] Narrative Exam Narrative: deferred Psych Mental Status: mental status grossly normal Speech and Movement: speech and movement normal Mood: irritable mood Affect: normal affect DS: Data Vitals/I&O Vitals and I&O: Vital Signs Pain Level 0 07/02/24 14:30 PFSH All Active Problems (Updated 05/16/24 @ 11:44 by Raffi Merida DO) Bipolar I disorder in remission (Acute) Prediabetes (Acute) Chronic hepatitis C without hepatic coma (Acute) Agitation (Acute) Hyperammonemia (Acute) Metabolic acidosis (Acute) Laceration of scalp (Acute) Altered mental status (Acute) Illicit drug use (Acute) Aspiration pneumonia (Acute) Rhabdomyolysis (Acute) Leukocytosis (leucocytosis) (Acute) Rhabdomyolysis (Acute) Polysubstance abuse (Chronic) Tricuspid insufficiency (Acute) Mitral regurgitation (Chronic) Dysphagia (Acute) Chronic rhinitis (Acute) Fistula, silvia-antral (Acute) Dry tooth socket (Acute) Nasal congestion (Acute) Sinusitis (Acute) Medical History Hepatitis C Spinal cord compression PTSD (post-traumatic stress disorder) Neuropathy History of head injury History of asthma Erectile dysfunction Bipolar disorder ADHD (attention deficit hyperactivity disorder) Arthritis Anxiety Family History Mother Substance use disorder Anxiety disorder Depression Diabetes Father Substance use disorder Depression Social History Smoking/Tobacco Use Status: Current every day Tobacco Type: cigarettes Smoking packs per day: 1 Smoking cigarettes per day: 20.0 Tobacco: How many years used: 15 Quit status: considering quitting Second Hand Exposure: No Smoking risk assessment performed?: Yes Alcohol Intake: never Drug use: Daily Substance use type: marijuana, crack/cocaine, tranquilizers, opiates, painkillers, IV drugs, methamphetamine and prescription drug Details: uses fentanyl, 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 Pets and animals: Yes (4 Dogs, 2 Cats) Pets and animals: cat(s) and dog(s) Sexually active: No Do you think of yourself as: straight/heterosexual Current gender identity: male What is your relationship status?: How often do you talk on the phone with friends or family?: never How often do you get together with friends or relatives?: never Do you belong to any clubs or organized social groups?: no Panel score (0-1 are the most socially isolated patients): 0 What type of physical activity do you participate in: none Naa/Spiritism: None Seatbelt use: never Helmet use: Yes Helmet use: sometimes Drive intox or ride w/intox van cdl driver: No Do you feel safe at home: Yes Do you feel safe in your relationship?: Yes Time Spent with Patient Time Spent with Patient: <45 minutes Time was spent: preparing to see the patient(eg.review tests), obtaining and/or reviewing separately otained hiistory, ordering medications,tests, procedures, referring, communicating with other health home care nurse, indepentently interpreting results, counseling the patient and care coordination
--- NOTE | 2024-07-02 16:01 | HPE_ITS ---
Date of service: 07/02/24 Time of Service: 16:01 Assessment and Plan Assessment and plan (1) Illicit drug use: Status: Acute (2) Polysubstance abuse: Status: Chronic (3) Bipolar I disorder in remission: Status: Acute (4) Chronic hepatitis C without hepatic coma: Status: Acute (5) Discitis of thoracic region: Status: Acute Assessment and plan: left AMA. Prescriptions for linezolid 600mg po bid for 18 more days. History of Present Illness History of Present Illness Chief Complaint: back pain Narrative: 44 y/o male who was transferred from an outlying facility to complete a course of iv abx 2/2 T10 discitis. Pt immediately left AMA Review of Systems Unobtainable due to mental condition PFSH All Active Problems (Updated 07/02/24 @ 16:04 by Danny Gomez MD) Discitis of thoracic region (Acute) Bipolar I disorder in remission (Acute) Prediabetes (Acute) Chronic hepatitis C without hepatic coma (Acute) Agitation (Acute) Hyperammonemia (Acute) Metabolic acidosis (Acute) Laceration of scalp (Acute) Altered mental status (Acute) Illicit drug use (Acute) Aspiration pneumonia (Acute) Rhabdomyolysis (Acute) Leukocytosis (leucocytosis) (Acute) Rhabdomyolysis (Acute) Polysubstance abuse (Chronic) Tricuspid insufficiency (Acute) Mitral regurgitation (Chronic) Dysphagia (Acute) Chronic rhinitis (Acute) Fistula, silvia-antral (Acute) Dry tooth socket (Acute) Nasal congestion (Acute) Sinusitis (Acute) Medical History Hepatitis C Spinal cord compression PTSD (post-traumatic stress disorder) Neuropathy History of head injury History of asthma Erectile dysfunction Bipolar disorder ADHD (attention deficit hyperactivity disorder) Arthritis Anxiety Family History Mother Substance use disorder Anxiety disorder Depression Diabetes Father Substance use disorder Depression Social History Smoking/Tobacco Use Status: Current every day Tobacco Type: cigarettes Smoking packs per day: 1 Smoking cigarettes per day: 20.0 Tobacco: How many years used: 15 Quit status: considering quitting Second Hand Exposure: No Smoking risk assessment performed?: Yes Alcohol Intake: never Drug use: Daily Substance use type: marijuana, crack/cocaine, tranquilizers, opiates, p ainkillers, IV drugs, methamphetamine and prescription drug Details: uses fentanyl, 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 Pets and animals: Yes (4 Dogs, 2 Cats) Pets and animals: cat(s) and dog(s) Sexually active: No Do you think of yourself as: straight/heterosexual Current gender identity: male What is your relationship status?: How often do you talk on the phone with friends or family?: never How often do you get together with friends or relatives?: never Do you belong to any clubs or organized social groups?: no Panel score (0-1 are the most socially isolated patients): 0 What type of physical activity do you participate in: none Ana/Zoroastrianism: None Seatbelt use: never Helmet use: Yes Helmet use: sometimes Drive intox or ride w/intox wedding transportation driver: No Do you feel safe at home: Yes Do you feel safe in your relationship?: Yes Meds Allergies and Home Medications Allergies Allergy/AdvReac Type Severity Reaction Status Date / Time No Known Allergies Allergy Unverified 05/16/24 11:09 Home Medications ?Medication ?Instructions ?Recorded ?Confirmed ?Type buprenorphine 12 mg-naloxone 3 mg 2 film buccal Q24H 08/30/23 05/16/24 History sublingual film (Suboxone) gabapentin 300 mg capsule 300 mg PO TID #270 caps 11/22/23 07/02/24 Rx naloxone 4 mg/actuation nasal 4 mg intranasal Q2M PRN #2 ea 03/03/24 07/02/24 Rx spray (Narcan) linezolid 600 mg tablet 600 mg PO BID 19 days #38 tabs 07/02/24 Rx metformin 500 mg 24 hr 500 mg PO DAILY #30 tabs 07/02/24 Rx tablet,extended release (gastric retention) quetiapine 100 mg tablet (Seroquel) 100 mg PO DAILY #30 tabs 07/02/24 Rx Exam Narrative Exam Narrative: deferred Time Spent Time spent with Patient: <40 minutes Time was spent: preparing to see the patient(eg.review tests), obtaining and/or reviewing separately otained hiistory, ordering medications,tests, procedures, referring, communicating with other health team primary care physician, indepentently interpreting results, counseling the patient and care coordination
--- NOTE | 2024-07-02 16:52 | NUR.NOTE ---
Nursing Note: As requested by Noemy UMANZOR, home medication list was reconciled. Discharge medication list from [facility] was used in absence of cooperative patient. 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
== END 2024-07-02 14:47 | disposition left against medical advice (07) | DRG 540 ==
LOC: MS 14:27
PROVIDERS: Admitting Provider Family Medicine; PCP Family Medicine; Visit Provider Family Medicine
DX: M46.24 Osteomyelitis of vertebra, thoracic region (principal); E87.21 Acute metabolic acidosis; M62.82 Rhabdomyolysis; F11.20 Opioid dependence, uncomplicated; M46.44 Discitis, unspecified, thoracic region; F31.70 Bipolar disorder, currently in remission, most recent episode unspecified; B18.2 Chronic viral hepatitis C; R73.03 Prediabetes; R45.1 Restlessness and agitation; I08.1 Rheumatic disorders of both mitral and tricuspid valves; F90.9 Attention-deficit hyperactivity disorder, unspecified type; F43.10 Post-traumatic stress disorder, unspecified; F41.9 Anxiety disorder, unspecified; G62.9 Polyneuropathy, unspecified; F17.210 Nicotine dependence, cigarettes, uncomplicated; Z79.84 Long term (current) use of oral hypoglycemic drugs; F19.10 Other psychoactive substance abuse, uncomplicated
CPT/HCPCS: 00123; 99221; 99234

== ENCOUNTER 2025-01-14 08:38 | Emergency (ER) | payer MEDICAID, SELFPAY ==
--- NOTE | 2025-01-14 08:30 | RT.EKG_ITS ---
APPROVED REPORT Exam: Resting ECG Reason for Exam: Chest Pain Patient Location: E HR:108 bpm ECG Measurements Heart Rate 108 AXIS [place] 132 P 46 QRSd 82 QRS 67 QT 331 T 63 QTc 444 Conclusion Sinus tachycardia, rate 108 No interval abnormalities No STEMI No significant changes from priors
--- NOTE | 2025-01-14 08:45 | DI.RAD_ITS ---
Exam(s) XR CHEST 2V PA LATERAL EXAM: XR CHEST 2V PA LATERAL CLINICAL HISTORY: Chest pain TECHNIQUE: 2D digital imaging was performed. Two views. COMPARISON: CR,XR XR PORTABLE CHEST AP from 12/26/2023 CR,XR XR PORTABLE CHEST AP POST LINE from 12/26/2023 CR,XR XR LUMBAR SPINE AP, LAT from 03/03/2024 CR,XR XR THORACIC SPINE COMPLETE from 03/03/2024 FINDINGS: Overlying monitoring leads. HEART: Normal size. Aorta: Not dilated. PULMONARY VASCULATURE: Normal. MEDIASTINUM: Unremarkable. LUNGS: Clear. PLEURAL SPACE: No pleural effusion or pneumothorax. BONE:There is moderate anterior wedging of the T11 vertebral body, not present on the prior exam. Advanced degenerative changes at T10-11. SOFT TISSUES: Unremarkable. IMPRESSION: No acute abnormality. The preliminary [facility] report was reviewed. DATA REPOSITORY: RADIATION DOSE DELIVERED:
--- NOTE | 2025-01-14 08:49 | ED.GENADUL_ITS ---
Discharge Plan Disposition Patient Disposition: Against Medical Advice Condition: Stable Discharge Details Clinical Impression: Chest pain of unknown etiology, Shortness of breath, Elevated d-dimer Primary Care Provider: Raffi Merida ED Provider: Gisel Ziegler Home Meds and New Rx's Prescriptions: No Action metformin 1,000 mg tablet 1,000 mg PO BID Qty: 180 3RF lorazepam 1 mg tablet 1 mg PO BID Qty: 30 0RF ferrous gluconate 324 mg (37.5 mg iron) tablet 324 mg PO .Mon, Wed, Fri Qty: 30 3RF quetiapine 100 mg tablet 100 mg PO BID Qty: 180 3RF buprenorphine-naloxone 8-2 mg tablet, sublingual 3 tab SUBLINGUAL DAILY Patient Comments: Place two tablets under the tongue daily AND 1 tablet at bedtime. Daily Max: 3 tablets. acetaminophen 500 mg capsule 500 mg PO Q6H PRN naproxen 500 mg tablet 500 mg PO BID naloxone [Narcan] 4 mg/actuation spray,non-aerosol 4 mg intranasal Q2M PRNQty: 2 5RF Rx Instructions: spray 1 dose into ONE nostril; alternate nostrils w each dose until help arrives HPI General Mode of arrival: ambulatory . Date/Time Provider Initiated Documentation: 01/14/25 08:48 . Limitations to Documentation: no limitations . Information obtained by: patient and old records reviewed . HPI Narrative: This is a 44-year-old male patient with a past medical history significant for tricuspid insufficiency, mitral regurgitation, polysubstance use disorder, bipolar disorder, presenting for evaluation of chest pain and shortness of breath. The patient reports that for the last 2 days he has felt like something is stuck in his chest and is moving his way up. He has a cough but he has not been able to produce any sputum. States that this is painful, and is what prompted him to seek care today. The patient reports that he has not had a fever, does have a history of aspiration pneumonia. He endorses recent cocaine use, states that he smokes it, denies injection drug use. Is taking his Suboxone as prescribed. The patient has no personal history of respiratory illnesses. Related Data Home Medications ?Medication ?Instructions ?Recorded ?Confirmed naloxone 4 mg/actuation nasal 4 mg intranasal Q2M PRN #2 ea 03/03/24 09/12/24 spray (Narcan) acetaminophen 500 mg capsule 500 mg PO Q6H PRN 4 09/12/24 buprenorphine 8 mg-naloxone 2 mg 3 tab sublingual GERHARD Y 07/02/24 09/12/24 sublingual tablet naproxen 500 mg tablet 500 mg PO BID 07/02/2409/12 metformin 1,000 mg tablet 1,000 mg PO BID #180 tabs 09/12/24 ferrous gluconate 324 mg (37.5 mg 324 mg PO .Wed, Wed, Wed #30 tabs 09/05/24 09/12/24 iron) tablet lorazepam 1 mg tablet 1 mg PO BID #30 tabs 09/12/2 5 09/12/24 quetiapine 100 mg tablet 100 mg PO BID #180 tabs 12/17 01/10 Previous Rx's ?Medication ?Instructions ?Recorded naloxone 4 mg/actuation nasal 4 mg intranasal Q2M PRN #2 ea 03/03/24 spray (Narcan) metformin 1,000 mg tablet 1,000 mg PO BID #180 tabs ferrous gluconate 324 mg (37.5 mg 324 mg PO .Wed, Wed, Fri #30 tabs 09/05/24 iron) tablet lorazepam 1 mg tablet 1 mg PO BID #30 tabs 5 quetiapine 100 mg tablet 100 mg PO BID #180 tabs 12/17 01/10 Allergies Allergy/AdvReac Type Severity Reaction Status Date / Time No Known Allergies Allergy Verified 09/12/24 09:54 General JOJO: 3 Exam Narrative Exam Narrative: Gen: Awake and alert, restless with significant psychomotor agitation HEENT: Non-icteric sclera Neck: Supple Lungs: No apparent respiratory distress though the patient is tachypneic, clear lung sounds throughout CV: Appears well perfused, heart with tachycardic rate but regular rhythm, strong distal pulses Abdomen: Non-distended, soft, nontender MSK: Moves 4 extremities without apparent limitation in ROM. No peripheral edema, no unilateral calf swelling Skin: Visualized skin without rashes, cyanosis. Neuro: Normal Gait, no obvious focal deficits or facial asymmetry. Speaks in full, clear sentences. Medical Decision Making This is a 44-year-old male patient presenting for evaluation of chest pain and shortness of breath. My differential includes but is not limited to ACS including STEMI, NSTEMI, unstable angina, certainly considered arrhythmia, pericarditis/myocarditis, aortic pathology. Considered pulmonary abnormalities including pneumonia, bronchitis, pleural effusion, pulmonary edema, reactive airway disease, pneumothorax. The tachycardia and tachypnea certainly does increase my concern for pulmonary embolism. I also considered a sequelae of recent cocaine use. No GI symptoms or vomiting to suggest Boerhaave's, esophagitis, peptic ulcer disease, pancreatitis. Considered musculoskeletal pathologies including costochondritis, chest wall pain. I obtained and reviewed an EKG, which shows a sinus tachycardia without evidence of acute ischemia, interval abnormalities, or ectopy. There are no significant changes from priors. We will obtain laboratory studies to include CBC, CMP, magnesium, lipase, troponin, BNP, and D-dimer. I will also obtain a chest x- ray. - I independently interpreted the laboratory studies, which show no significant leukocytosis, anemia, or thrombocytopenia. The chemistry panel is without evidence of electrolyte abnormality, kidney dysfunction, or liver injury. Initial troponin negative at 9, lipase low, glucose slightly elevated at 310, D- dimer is elevated at 789. Chest x-ray reviewed by myself, revealing no acute abnormalities to explain his symptoms. The patient was noted to have improvement in his tachypnea and tachycardia on te lemetry. Prior to acting upon the initial laboratory studies, I was summoned to bedside where the patient was stating that he wanted to leave the hospital AGAINST MEDICAL ADVICE. I did explain the lack of diagnostic clarity, and the patient has capacity to refuse care and is understanding of the risks and benefits at this time. He understands that he can return to care at any time for reevaluation, and signed our AMA form. He left our facility without additional intervention or incident. Gisel Ziegler MD Quality:SDOH Health Related Social Needs: Health related social needs details [facility]. [facility] All Active Problems (Updated 01/14/25 @ 09:57 by Gisel Ziegler MD) Elevated d-dimer (Acute) Shortness of breath (Acute) Chest pain of unknown etiology (Acute) Acute osteomyelitis of thoracic spine (Acute) Discitis of thoracic region (Acute) Bipolar I disorder in remission (Acute) Prediabetes (Acute) Chronic hepatitis C without hepatic coma (Acute) Agitation (Acute) Hyperammonemia (Acute) Metabolic acidosis (Acute) Laceration of scalp (Acute) Altered mental status (Acute) Illicit drug use (Acute) Aspiration pneumonia (Acute) Rhabdomyolysis (Acute) Leukocytosis (leucocytosis) (Acute) Rhabdomyolysis (Acute) Polysubstance abuse (Chronic) Tricuspid insufficiency (Acute) Mitral regurgitation (Chronic) Dysphagia (Acute) Chronic rhinitis (Acute) Fistula, silvia-antral (Acute) Dry tooth socket (Acute) Nasal congestion (Acute) Sinusitis (Acute) Medical History Hepatitis C Spinal cord compression PTSD (post-traumatic stress disorder) Neuropathy History of head injury History of asthma Erectile dysfunction Bipolar disorder ADHD (attention deficit hyperactivity disorder) Arthritis Anxiety Family History Mother Substance use disorder Anxiety disorder Depression Diabetes Father Substance use disorder Depression Social History Smoking/Tobacco Use Status: Former Tobacco Use Tobacco: How many years used: 15 Quit status: considering quitting Second Hand Exposure: No Smoking risk assessment performed?: Yes Alcohol Intake: never Drug use: Daily Substance use type: marijuana, crack/cocaine and prescription drug Details: uses fentanyl, 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 Pets and animals: Yes (4 Dogs, 2 Cats) Pets and animals: cat(s) and dog(s) Sexually active: No Do you think of yourself as: straight/heterosexual Current gender identity: male What is your relationship status?: How often do you talk on the phone with friends or family?: never How often do you get together with friends or relatives?: never Do you belong to any clubs or organized social groups?: no Panel score (0-1 are the most socially isolated patients): 0 What type of physical activity do you participate in: none Ana/Buddhism: None Seatbelt use: never Helmet use: Yes Helmet use: sometimes Drive intox or ride w/intox trolley coach driver: No Do you feel safe at home: Yes Do you feel safe in your relationship?: Yes
[2025-01-14 08:54] VITALS: BP 147/85; PULSE 101; RESP 22; TEMP 36.8; O2SAT 94
[2025-01-14 08:58] LABS: Abs Immature Grans 0.06 10^3/uL (0.0-0.06); Absolute Basophil Count 0.06 10^3/uL (0.0-0.2); Absolute Eosinophil Count 0.25 10^3/uL (0.0-0.7); Absolute Lymphocyte Count 1.92 10^3/uL (1.2-3.4); Absolute Monocyte Count 0.64 10^3/uL (0.1-0.8); Absolute Neutrophil Count 7.85 10^3/uL (1.2-6.7); Basophils % 0.6 %; Eosinophils % 2.3 %; HCT 40.8 % (40.0-50.0); HGB 14.1 g/dL (13.5-17.5); Immature Grans % 0.6 %; Lymphocytes % 17.8 %; MCH 29.6 pg (27.0-33.0); MCHC 34.6 % (32.0-36.0); MCV 86 fL (80-95); MPV 9.7 fL (8.0-11.0); Monocytes % 5.9 %; Neutrophils % 72.8 %; Platelet Count 419 10^3/uL (130-400); RBC 4.76 10^6/uL (4.36-5.78); RDW 12.2 % (11.8-14.1); RDW-SD 38.5 fL; WBC 10.78 10^3/uL (4.4-10.8)
[2025-01-14 09:01] VITALS: RESP 30
[2025-01-14 09:25] LABS: ALT 36 U/L (16-63); AST 37 U/L (15-37); Albumin 3.9 g/dL (3.4-5.0); Alkaline Phosphatase 121 U/L (46-116); Anion Gap 10.8 mmol/L (3-11); BUN 17 mg/dL (7-18); Bilirubin, Total 0.5 mg/dL (0.2-1.0); CO2 27.2 mmol/L (21.0-32.0); Calcium 9.2 mg/dL (8.5-10.1); Chloride 98 mmol/L (98-107); Estimated GFR 95.18 (mL/min/1.73m2); Glucose 310 mg/dL (74-106); Lipase 19 U/L (<78); Magnesium 1.9 mg/dL (1.8-2.4); NT-proBNP 55 pg/mL (<300); Potassium 3.5 mmol/L (3.5-5.1); Sodium 136 mmol/L (136-145); Total Protein 8.9 g/dL (6.4-8.2); Troponin I 9 ng/L (<or=76)
--- NOTE | 2025-01-14 09:27 | DI.[facility]_ITS ---
PROCEDURE INFORMATION: Exam: XR Chest Exam date and time: 01/14/2025 9:17 AM Age: 44 years old Clinical indication: Other: Chest pain TECHNIQUE: Imaging protocol: Radiologic exam of the chest. Views: 2 views. COMPARISON: CR XR PORTABLE CHEST AP POST LINE 12/26/2023 10:57 AM FINDINGS: Lungs: No focal consolidation seen. Pleural spaces: No large pleural effusion seen. Heart/Mediastinum: No cardiomegaly. Bones/joints: No acute abnormality. IMPRESSION: No acute findings to explain reported symptoms. Dictated and Authenticated by: Kaylene Chavez MD. Orderin St. Mayito Batres MD
[2025-01-14 09:42] LABS: D-Dimer 789 ng/mlFEU (<500)
== END 2025-01-14 09:56 | disposition left against medical advice (07) ==
PROVIDERS: Emergency Provider Emergency Medicine; PCP Family Medicine
DX: R07.9 Chest pain, unspecified (principal); R06.02 Shortness of breath; R79.89 Other specified abnormal findings of blood chemistry; Z53.29 Procedure and treatment not carried out because of patient's decision for other reasons
CPT/HCPCS: 99284 ×2; 36415; 80053; 83690; 93005; 71046; 83735; 83880; 84484; 85025; 85379; 93010